=== PATIENT | female | born 1960 ===

== ENCOUNTER 2016-11-17 00:15 | Inpatient (IN) | payer MEDICARE, BC ==
[2016-11-17 00:15] VITALS: BMI 26.9
[2016-11-17] MEDS ORDERED: Sodium Chloride 0.9% 500 ML IV STA (01:02)
--- NOTE | 2016-11-17 01:05 | ED PDOC ---
Arrival/HPI - General Historian: Patient - History of Present Illness Time/Duration: < week Symptom Onset: Gradual Symptom Course: Worsening Quality: Burning Severity Level: 4 (abdominal pain) <Yina Hobbs - Last Filed: 11/17/16 05:18> <Kenney Solomon - Last Filed: 11/17/16 08:11> - General Chief Complaint: Abdominal Pain Time Seen by Provider: 11/17/16 00:36 - History of Present Illness Narrative History of Present Illness (Text): 11/17/16 01:04 56 year old female with past medical history of ESRD (MWF), HTN, GERD, chronic pancreatitis, COPD, CHF presents to [facility] complaining of nausea, vomiting and diarrhea. Patient reports that these symptoms started 2 months ago and they became worse on Monday. Since then she had more than 10 episodes of vomiting and diarrhea daily. Patient has been having NBNB vomitus and watery diarrhea. Patient also complains of having right upper quadrant abdominal pain. Patient also complains of having bilateral thigh soreness which started this morning. Her last hemodialysis was last Monday. She was not able to go Monday and Monday sessions due to her presenting symptoms. Denies headache, fever, chills, shortness of breath, coughs, chest pain, urinary symptoms. (Yina Hobbs) Past Medical History - Provider Review Nursing Documentation Reviewed: Yes - Past History Past History: Non-Contributing - Infectious Disease Hx of Infectious Diseases: None - Tetanus Immunization Tetanus Immunization: Up to Date - Cardiac Hx Pacemaker: No - Pulmonary Hx Respiratory Disorders: No Hx Asthma: No Hx Bronchitis: No Hx Chronic Obstructive Pulmonary Disease (COPD): No Hx Emphysema: No Hx Pneumonia: No Hx Respiratory Aspiration: No Hx Respiratory Tract Infection: No Hx Sleep Apnea: No Hx Tuberculosis: No - Neurological Hx Paralysis: No - HEENT Hx HEENT Disorder: Yes (torn retina left eye) Hx Blind: No Hx Cataracts: No Hx Deafness: (hard of hearing) Hx Difficulty Chewing: No Hx Epistaxis: No Hx Glaucoma: No Hx Macular Degeneration: No Other/Comment: can't see center of anything due to torn retina left eye since 1979, no sx - Renal Hx Renal Disorder: Yes Hx Dialysis: Yes Date of Last Dialysis Treatment: 08/12/16 - Endocrine/Metabolic Hx Endocrine Disorders: No Hx Adrenal Cancer: No Hx Diabetes Insipidus: No Hx Diabetes Mellitus Type 1: No Hx Diabetes Mellitus Type 2: No Hx Hyperthyroidism: No Hx Systemic Lupus Erythematosus: No - Hematological/Oncological Hx Blood Transfusions: Yes (1983) Hx Blood Transfusion Reaction: No - Integumentary Hx Dermatological Disorder: No Hx Basal Cell Carcinoma: No Hx Eczema: No Hx Melanoma: No Hx Psoriasis: No Hx Squamous Cell Carcinoma: No - Musculoskeletal/Rheumatological Hx Musculoskeletal Disorders: No - Gastrointestinal Hx Gastrointestinal Disorders: Yes (barretts esophagus) Hx Colostomy: No Hx Crohn's Disease: No Hx Diverticulitis: No Hx Gall Bladder Disease: Yes Hx Gastroesophageal Reflux: Yes Hx Gastrointestinal Ulcer: No Hx Ileostomy: No Hx Liver Failure: No Hx Pancreatitis: No HX Swallowing Problems: No - Genitourinary/Gynecological Hx Genitourinary Disorders: No Hx Hematuria: No Hx Incontinence: No Hx Prostate Problems: No Hx Sexually Transmitted Diseases: No Hx Urinary Tract Infection: No - Psychiatric Hx Emotional Abuse: No Hx Physical Abuse: No Hx Substance Use: No - Surgical History Hx Amputation: No Hx Appendectomy: No Hx Cardiac Catheterization: Yes (04/04/14) Hx Cholecystectomy: Yes (lap dyllan) Hx Coronary Stent: No Hx Gastric Bypass Surgery: No Hx Hysterectomy: No Hx Joint Replacement: No Hx Kidney Transplant: No Hx Liver Transplant: No Hx Mastectomy: No Hx Musculoskeletal Surgery: No Hx Open Heart Surgery: No Hx Orthopedic Surgery: No (hip dislocation) Hx Splenectomy: No Hx Valve Replacement: No Other/Comment: pericardial window, pericardiocenthesis 2014, c sections x2, T&A , fistulagram - Anesthesia Hx Anesthesia Reactions: No Hx Malignant Hyperthermia: No - Suicidal Assessment Feels Threatened In Home Enviroment: No <Yina Hobbs - Last Filed: 11/17/16 05:18> Family/Social History - Physician Review Nursing Documentation Reviewed: Yes Family/Social History: No Known Family HX Smoking Status: Light Smoker < 10 Cigarettes Daily Hx Alcohol Use: No Hx Substance Use: No Hx Substance Use Treatment: No <Yina Hobbs - Last Filed: 11/17/16 05:18> Allergies/Home Meds <Yina Hobbs - Last Filed: 11/17/16 05:18> <Kenney Solomon - Last Filed: 11/17/16 08:11> Allergies/Adverse Reactions: Allergies aspirin Allergy (Severe, Verified 11/17/16 00:23) ANAPHYLAXIS ciprofloxacin Allergy (Severe, Verified 11/17/16 00:23) ANAPHYLAXIS Summers And Derivatives Allergy (Severe, Verified 11/17/16 00:23) ANAPHYLAXIS enalapril Allergy (Severe, Verified 11/17/16 00:23) HIVES heparin Allergy (Severe, Verified 11/17/16 00:23) ANAPHYLAXIS latex Allergy (Severe, Verified 11/17/16 00:23) ANAPHYLAXIS Penicillins Allergy (Severe, Verified 11/17/16 00:23) ANAPHYLAXIS Sulfa (Sulfonamide Antibiotics) Allergy (Severe, Verified 11/17/16 00:23) ANAPHYLAXIS levothyroxine sodium [From Levoxyl] Allergy (Intermediate, Verified 11/17/16 00: 23) RASH acetaminophen Allergy (Mild, Verified 11/17/16 00:23) RASH codeine Allergy (Mild, Verified 11/17/16 00:23) RASH enoxaparin Allergy (Mild, Verified 11/17/16 00:23) RASH iodine Allergy (Mild, Verified 11/17/16 00:23) RASH influenza virus vaccine, specific Allergy (Verified 11/17/16 00:23) hives Home Medications: Home Meds Medication Instructions Recorded Confirmed Cinacalcet [Sensipar] 30 mg PO DAILY 02/05/14 09/27/16 Esomeprazole Magnesium [Nexium] 40 mg PO DAILY 02/05/14 09/27/16 Rosuvastatin Calcium [Crestor] 20 mg PO DAILY 02/05/14 09/27/16 Sevelamer Carbonate [Renvela] 800 mg PO WM 02/05/14 09/27/16 Metoprolol Succinate 25 mg PO QPM 05/08/14 09/27/16 Review of Systems - Physician Review All systems were reviewed & negative as marked: Yes - Review of Systems Constitutional: Fatigue. absent: Fevers Eyes: absent: Vision Changes, Photophobia ENT: Normal. absent: Rhinorrhea Respiratory: Normal. absent: SOB, Cough Cardiovascular: Normal. absent: Chest Pain, Palpitations, Syncope Gastrointestinal: Abdominal Pain, Diarrhea, Nausea, Vomiting, Appetite Changes Musculoskeletal: Other (bilateral thigh pain) Skin: Normal. absent: Rash, Pruritis, Skin Lesions Neurological: Normal. absent: Headache, Dizziness Endocrine: absent: Polyuria, Polydipsia Psychiatric: Normal. absent: Anxiety, Depression <Yina Hobbs - Last Filed: 11/17/16 05:18> Physical Exam Vital Signs Reviewed: Yes Temperature: Afebrile Blood Pressure: Hypertensive Pulse: Regular Respiratory Rate: Normal Appearance: Positive for: Non-Toxic Pain Distress: Mild Mental Status: Positive for: Alert and Oriented X 3 - Systems Exam Head: Present: Atraumatic, Normocephalic Pupils: Present: PERRL Extroacular Muscles: Present: EOMI Mouth: Present: Dry Neck: Present: Normal Range of Motion Respiratory/Chest: Present: Clear to Auscultation, Good Air Exchange. No: Respiratory Distress, Accessory Muscle Use, Wheezes Cardiovascular: Present: Regular Rate and Rhythm, Normal S1, S2. No: Murmurs Abdomen: Present: Tenderness (Right upper quadrant tenderness), Normal Bowel Sounds Back: Present: Normal Inspection Upper Extremity: Present: Normal Inspection, Neurovascularly Intact. No: Cyanosis, Edema Lower Extremity: Present: Normal Inspection, Neurovascularly Intact. No: Edema Neurological: Present: GCS=15, CN II-XII Intact, Speech Normal Skin: Present: Warm, Dry, Normal Color. No: Rashes Psychiatric: Present: Alert, Oriented x 3, Normal Insight, Normal Concentration <Yina Hobbs - Last Filed: 11/17/16 05:18> Vital Signs Temp Pulse Resp BP Pulse Ox 11/17/16 07:44 75 18 154/81 H 97 11/17/16 00:50 98.0 F 82 18 148/76 98 11/17/16 00:24 98.1 F 77 16 171/80 H 98 Medical Decision Making Re-evaluation Time: 04:11 Reassessment Condition: Improving,but remains with symptoms (Patient nausea improved, no vomiting or diarrhea.) <Yina Hobbs - Last Filed: 11/17/16 05:18> <Kenney Solomon - Last Filed: 11/17/16 08:11> ED Course and Treatment: 11/17/16 01:34 -CBC, CMP, INR -amylase, lipase, serum alcohol -EKG, Cardiac ISO -VBG Shock panel -Right femur x-ray, Duplex -Zofran, protonix -CT Abdominal -UA -Low IVF -NPO -Reassess DDx: pancreatitis, appendicitis, UTI, gastroenteritis 11/17/16 01:45 Elevated Cr 12.4 11/17/16 05:03 Patient still complaining pain and nausea. Dr. Gomez paged. 11/17/16 05:11 Case discussed with PMD Dr. Gomez whom agree with hospital admission GI Dr. Rosado, Nephro Dr. Rose consulted 11/17/16 05:12 (Yina Hobbs) Impression: In agreement with resident note, which includes further HPI details. Patient was seen and evaluated with resident, came up with plan and treatment together. Pt, whose past medical history includes ESRD (hemodialysis on Monday/Monday/ Monday) chronic pancreatitis, COPD, and CHF, presented complaining of nausea, vomiting, and diarrhea for 4 days. Plan: -- CT Abdomen and Pelvis w/o contrast -- EKG -- Labs, cardiac enzymes, amylase, lipase, alcohol level -- IV fluids -- Zofran -- Protonix -- Dilaudid -- Reassess and disposition Prior Visits: Notes and results from previous visits were reviewed. Progress Notes: 11/17/16 03:36 Reviewed sono, US Duplex Lower Extremities are negative for DVT. 11/17/16 08:10 Patient continues to have abd pain and nausea and still needs her HD - will need further observation in the hospital - will go to Dr. Gomez's service. ( Kenney Solomon) - Lab Interpretations Lab Results: 11/17/16 01:00 11/17/16 01:00 Lab Results 11/17/16 02:00: pO2 191 H, VBG pH 7.38, VBG pCO2 39.0 L, VBG HCO3 23.1, VBG Total CO2 24.3, VBG O2 Sat (Calc) 99.5 H, VBG Base Excess -1.8 L, VBG Potassium 5.4 H, Sodium 133.0, Chloride 98.0, Glucose 93, Lactate 2.0, FiO2 21.0, Venous Blood Potassium 5.4 H 11/17/16 01:00: WBC 7.1, RBC 3.69, Hgb 11.2 L, Hct 34.0 L, MCV 92.1, MCH 30.4, MCHC 32.9, RDW 16.4 H, Plt Count 132, MPV 9.7, Gran % 63.0, Lymph % (Auto) 23.1 , Aiken % (Auto) 10.5 H, Eos % (Auto) 3.0, Baso % (Auto) 0.4, Gran # 4.48, Lymph # 1.6, Aiken # 0.8 H, Eos # 0.2, Baso # 0.03, PT 14.3 H, INR 1.32 H, APTT 27.5, Sodium 135, Chloride 91 L, Potassium 5.1 H, Carbon Dioxide 25, Anion Gap 24 H, BUN 64 H, Creatinine 12.4 H*, Est GFR ( Amer) 4, Est GFR (Non-Af Amer) 3 , Random Glucose 99, Calcium 8.5, Total Bilirubin 1.6 H, AST 38, ALT 41, Alkaline Phosphatase 327 H, Lactate Dehydrogenase 484, Total Creatine Kinase 285 H, CK-MB (CK-2) 1.8, CK-MB (CK-2) % Cancelled, Troponin I 0.02 D, Total Protein 6.9, Albumin 4.0, Globulin 3.0, Albumin/Globulin Ratio 1.3, Amylase 145 H, Lipase 52, Alcohol, Quantitative < 10 - RAD Interpretation Narrative RAD Interpretations (Text): 11/17/16 02:38 Femur x-ray showed no acute fractures, read by me (Yina Hobbs) Radiology Orders: 11/17/16 01:07 Femur Right [FEMUR MIN 2 VIEWS RT] [RAD] Stat 11/17/16 01:17 ABD & PELVIS W/O PO OR IV CONT [CT] Stat DUPLEX LOWER EXTRM VEIN RIGHT [US] Stat EXAM: CT Abdomen and Pelvis Without Intravenous Contrast CLINICAL HISTORY: 56 years old, female; Pain; Abdominal pain; Generalized TECHNIQUE: Axial computed tomography images of the abdomen and pelvis without intravenous contrast. This CT exam was performed using one or more of the following dose reduction techniques: automated exposure control, adjustment of the mA and/or kV according to patient size, and/ or use of iterative reconstruction technique. Coronal and sagittal reformatted images were created and reviewed. COMPARISON: CT - PANCREATIC PROTOCOL 09/12/2016 1:43:08 PM FINDINGS: Limitations: No intravenous or enteric contrast. Lower thorax: Dilated cardiomegaly with coronary calcifications Small airway trapping and microatelectasis. Progressive. ABDOMEN: Liver: Small indeterminant enhancing hepatic lesions seen on the prior contrast study are not well seen on the noncontrast study. There is mild periportal edema which is usually related to hydration in this patient's age group , and in the ER population. Can be seen with acute hepatitis. Stable Gallbladder and bile ducts: Prior cholecystectomy without CT complications. No ductal dilation. Pancreas: Unremarkable. No ductal dilation. Spleen: Mild splenomegaly by index Adrenals: Unremarkable. No mass. Kidneys and ureters: Global renal atrophy with cystic changes of chronic renal insufficiency. Some of the cysts are hyperdense and better characterized on prior contrast CT. No obstructing stones. No hydronephrosis. Stomach and bowel: Suggestion of minimal wall thickening portions of colon right of midline which are nondistended, likely exaggerating this finding. Please correlate clinically.. No obstruction. No mucosal thickening. Appendix: Normal appendix PELVIS: Bladder: Incomplete urinary bladder distention with prominent wall. Pericystic induration. Cystitis not excluded. Correlate with urinalysis Reproductive: Unremarkable as visualized. ABDOMEN and PELVIS: Intraperitoneal space: Small amount of ascites grossly stable. No free air. Bones/joints: Dysplastic femoral heads with joint space narrowing and subchondral cysts. Spondylosis and facet arthrosis. Probable component of renal osteodystrophy No acute fracture. No dislocation. Soft tissues: Stable fatty mass in the left gluteus medius muscle.Although this is statistically a lipoma, usually followup in this age group is recommended to exclude liposarcoma. Vasculature: 16mm calcified splenic artery aneurysms. Atheromatous changes of a normal caliber aorta and branch vessels. Lymph nodes: Unremarkable. No enlarged lymph nodes. Other findings: Sequelae of old granulomatous disease without reactivation IMPRESSION: No definitive, interval or acute C.T. findings to explain the patient's presentation. Dilated cardiomegaly. There may be a component of positive fluid balance in the lungs Hepatosplenomegaly. Periportal edema. Small amount of ascites. Chronic renal medical disease. Incomplete urinary bladder distention with prominent wall. Pericystic induration. Cystitis not excluded. Correlate with urinalysis (Yina Hobbs) - Medication Orders Current Medication Orders: Sodium Chloride (Sodium Chloride 0.9%) 500 mls @ 15 mls/hr IV .Q24H STA Stop: 11/18/16 01:01 Last Admin: 11/17/16 02:12 Dose: 15 MLS/HR eMAR Start Stop Document 11/17/16 02:12 EQ (Rec: 11/17/16 02:12 EQ [id number]) Intravenous Solution Start Date 11/17/16 Start Time 02:12 Discontinued Medications Hydromorphone HCl (Dilaudid) 1 mg IVP STAT STA Stop: 11/17/16 01:18 Last Admin: 11/17/16 02:12 Dose: 1 MG IVP Administration Document 11/17/16 02:12 EQ (Rec: 11/17/16 02:12 EQ [id number]) Charges for Administration # of IVP Administrations 1 Ondansetron HCl (Zofran Inj) 4 mg IVP STAT STA Stop: 11/17/16 01:02 Last Admin: 11/17/16 02:12 Dose: 4 MG IVP Administration Document 11/17/16 02:12 EQ (Rec: 11/17/16 02:12 EQ [id number]) Charges for Administration # of IVP Administrations 1 Ondansetron HCl (Zofran Inj) Confirm Administered Dose 4 mg .ROUTE .STK-MED ONE Stop: 11/17/16 01:03 Last Admin: 11/17/16 02:12 Dose: Pantoprazole Sodium (Protonix Inj) 40 mg IVP ONCE STA Stop: 11/17/16 01:03 Last Admin: 11/17/16 02:12 Dose: 40 MG IVP Administration Document 11/17/16 02:12 EQ (Rec: 11/17/16 02:12 EQ [id number]) Charges for Administration # of IVP Administrations 1 - PA / NUCLEAR MEDICAL TECH / Resident Statement RONNELL has examined the patient and agrees with the treatment plan. <Yina Hobbs - Last Filed: 11/17/16 05:18> - PA / NUCLEAR MEDICAL TECH / Resident Statement RONNELL has reviewed & agrees with the documentation as recorded. RONNELL has examined the patient and agrees with the treatment plan. <Kenney Solomon - Last Filed: 11/17/16 08:11> Disposition/Present on Arrival - Present on Arrival Any Indicators Present on Arrival: No History of DVT/PE: No History of Uncontrolled Diabetes: No Urinary Catheter: No History of Decub. Ulcer: No History Surgical Site Infection Following: None - Disposition Have Diagnosis and Disposition been Completed?: Yes Disposition Time: 05:15 Patient Plan: Observation <Yina Hobbs - Last Filed: 11/17/16 05:18> - Present on Arrival Any Indicators Present on Arrival: No - Disposition Have Diagnosis and Disposition been Completed?: Yes Disposition Time: 05:10 Patient Plan: Observation <Kenney Solomon - Last Filed: 11/17/16 08:11> - Disposition Diagnosis: Nausea & vomiting, Abdominal pain Disposition: HOSPITALIZED Patient Problems: Current Active Problems Problem Status Diagnosed Abdominal wall hernia Acute Asthma exacerbation Acute Bronchitis Acute CHF (congestive heart failure) Acute Chest pain Acute Gastroenteritis Acute Nausea & vomiting Acute Renal failure Acute Status post cardiac catheterization Acute Condition: STABLE
[2016-11-17] MEDS ORDERED: HYDROmorphone 1 mg/ml ISec IVP STA (01:17)
[2016-11-17 01:22] LABS: ADD MANUAL DIFF? NO
[2016-11-17 01:27] LABS: BASO # 0.03 K/mm3 (0.0-2.0); BASO % 0.4 % (0.0-3.0); EOS # 0.2 (0.0-0.7); GRAN # 4.48 (1.4-6.5); LYMPH # 1.6 (1.2-3.4); LYMPH % 23.1 % (22.0-35.0); MEAN CELL VOLUME 92.1 fL (80.0-105.0); MEAN CORPUSCULAR HEMOGLOBIN 30.4 pg (25.0-35.0); MEAN CORPUSCULAR HGB CONC 32.9 g/dl (31.0-37.0); MEAN PLATELET VOLUME 9.7 fl (7.0-11.0); MONO # 0.8 (0.1-0.6); MONO % 10.5 % (1.0-6.0); PLATELET COUNT 132 10^3/uL (120.0-450.0); RED CELL DISTRIBUTION WIDTH 16.4 % (11.5-14.5); WHITE BLOOD COUNT 7.1 10^3/ul (4.5-11.0)
[2016-11-17 01:37] LABS: ALB/GLOB RATIO 1.3 (1.1-1.8); BILIRUBIN,TOTAL 1.6 mg/dL (0.2-1.3); CALCIUM 8.5 mg/dL (8.4-10.5); POTASSIUM 5.1 mmol/L (3.6-5.0); TOTAL PROTEIN 6.9 g/dL (5.8-8.3)
[2016-11-17 01:38] LABS: INR 1.32 (0.93-1.08); PARTIAL THROMBOPLASTIN TIME 27.5 Seconds (23.7-30.8)
[2016-11-17 01:48] LABS: TROPONIN I 0.02 ng/mL
[2016-11-17 02:16] LABS: VENOUS BLOOD GAS BASE EXCESS -1.8 mmol/L (0.0-2.0); VENOUS BLOOD PH 7.38 (7.32-7.43)
[2016-11-17 07:48] LABS: URINE BILIRUBIN NEGATIVE (NEGATIVE); URINE BLOOD MODERATE (NEGATIVE); URINE GLUCOSE (UA) NEGATIVE (NEGATIVE); URINE KETONE NEGATIVE (NEGATIVE); URINE LEUKOCYTE ESTERASE NEGATIVE Leu/uL (NEGATIVE); URINE PROTEIN 100 mg/dL (<30 mg/dL); URINE UROBILINOGEN 0.2 E.U./dL (<1 E.U./dL)
[2016-11-17 07:50] LABS: URINE APPEARANCE CLEAR (CLEAR); URINE COLOR YELLOW (YELLOW)
[2016-11-17 07:54] LABS: URINE BACTERIA FEW (NEG)
--- NOTE | 2016-11-17 08:39 | US ---
PROCEDURE: Right lower extremity venous US HISTORY: Leg pain and swelling. Evaluate for DVT. PHYSICIAN(S): Josh Vanegas M.D. TECHNIQUE: Duplex sonography and color-flow Doppler with graded compression were used to evaluate the deep venous system of the right lower extremity. FINDINGS: The visualized deep venous system of the right lower extremity is sonographically normal and compressible. Normal waveforms and augmentation are seen. There is no sonographic evidence for deep venous thrombosis in the visualized segments of the right lower extremity. IMPRESSION: 1. No sonographic evidence for deep venous thrombosis in the visualized segments of the right lower extremity.
--- NOTE | 2016-11-17 09:19 | CT ---
PROCEDURE: CT Abdomen and Pelvis without intravenous contrast HISTORY: abdominal pain COMPARISON: None. TECHNIQUE: Without contrast.. Contrast Dose: 0 Radiation dose: Total exam DLP = 438.21 mGy-cm. This CT exam was performed using one or more of the following dose reduction techniques: Automated exposure control, adjustment of the mA and/or kV according to patient size, and/or use of iterative reconstruction technique. FINDINGS: LOWER THORAX: Nonspecific mosaic attenuation at lung bases. Cardiomegaly. No pulmonary infiltrate/effusion. LIVER: Hepatomegaly. The liver measures approximately 22 cm craniocaudal. Mildly nodular contour suggestive of hepatic cirrhosis. Please correlate. Periportal edema. No focal hepatic mass. GALLBLADDER AND BILE DUCTS: Status post cholecystectomy. PANCREAS: Unremarkable. No gross lesion or ductal dilatation. SPLEEN: Unremarkable. ADRENALS: Nodular hypertrophy of left adrenal without discrete mass. Unremarkable right adrenal KIDNEYS AND URETERS: . Severely atrophic kidneys. Multiple left renal cysts, several of which are hyperdense. These are unchanged compared to prior CT examination. VASCULATURE: Splenic artery aneurysm, 17 mm. No evidence of abdominal aortic aneurysm. BOWEL: No evidence of mechanical bowel obstruction. No abnormal bowel loops. APPENDIX: Unremarkable. Normal appendix. PERITONEUM: Mild ascites. LYMPH NODES: Unremarkable. No enlarged lymph nodes. BLADDER: Nondistended. Questionable stranding of the perivesical fat. Please correlate clinically for evaluation of possible cystitis. REPRODUCTIVE: Postmenopausal uterus. BONES: No fracture. Degenerative disc disease L5-S1. Dysplastic femoral heads with bilateral osteoarthritis. Shallow acetabulum bilaterally. Possibly developmental. OTHER FINDINGS: None. IMPRESSION: Nonspecific mosaic attenuation at lung bases. Hepatomegaly. Possible hepatic cirrhosis. Mild ascites. Severely atrophic kidneys with several left renal cysts, some hyperdense. No change from 08/23/2016. Nonspecific periportal edema. Nondistended urinary bladder. Questionable stranding of perivesical fat. Please correlate for possible cystitis. Preliminary interpretation of this examination was reported by [facility] at 2:10 a.m. on 11/17/2016. There is concurrence of this report with the preliminary interpretation.
--- NOTE | 2016-11-17 09:31 | RAD ---
PROCEDURE: Right femur HISTORY: R thigh pain COMPARISON: Not available TECHNIQUE: AP and lateral radiographs of the right femur FINDINGS: No acute fracture. Dysplastic appearance of right femoral head with shallow acetabulum and osteoarthritis. IMPRESSION: No acute fracture. Osteoarthritis and possible dysplasia right femoral head.
--- NOTE | 2016-11-17 11:32 | CARD ---
APPROVED REPORT EKG Measurement Heart [id number] <Conclusion> Normal sinus rhythm Left axis deviation Voltage criteria for left ventricular hypertrophy ST & T wave abnormality, consider lateral ischemia Prolonged QT No change
--- NOTE | 2016-11-17 12:04 | HP ---
HISTORY OF PRESENT ILLNESS: The patient is a 56-year-old, seen and examined. She states she was ext remely weak. Last night, she was unable to stand up or walk. She has been having diarrhea since Sun day. Currently, she feels a little better, not nauseous anymore, hungry and wants to eat. PAST MEDICAL HISTORY: Significant for: 1. Hypertension. 2. End-stage renal disease, on hemodialysis. 3. Peptic ulcer disease. 4. History of left hip replacement. 5. Gastroesophageal reflux disease. ALLERGIES: THE PATIENT HAS MULTIPLE ALLERGIES INCLUDIN. ASPIRIN. 2. CIPROFLOXACIN 3. CITRUS. 4. ENALAPRIL. 5. HEPARIN. 6. LATEX. 7. PENICILLIN. 8. SULFA. 9. LEVOTHYROXINE. 10. ACETAMINOPHEN 11. CODEINE. 12. LOVENOX. 13. IODINE AND INFLUENZA VACCINE. MEDICATIONS AT HOME: She is on: 1. Renvela 800 three times a day. 2. Crestor 20 mg daily. 3. Sensipar 30 mg daily. SOCIAL HISTORY: She is and lives with her , still actively smokes a few cigarettes a day and she drinks socially. REVIEW OF SYSTEMS: Significant for generalized weakness and having some leg pain. PHYSICAL EXAMINATION: GENERAL: The patient is awake and alert, communicative. VITAL SIGNS: She is afebrile, pulse 73, respirations 18, blood pressure 157/81. LUNGS: Bilateral fair airflow, no rhonchi or crackle. HEART: S1, S2 audible. No murmur. ABDOMEN: Soft, nontender, no rebound. Slight discomfort in the right upper quadrant area, but no gu arding. EXTREMITIES: Bilateral legs, no edema. She has full range of motion. LABORATORY EXAMINATION: WBC 7.1, hemoglobin 11.2, hematocrit 34, platelet of 132. PT 14.3, INR 1.32 . Chemistry: Sodium 135, potassium 5.1, chloride 91, CO2 25, BUN 64, creatinine 12.4, blood sugar o f 99. Total bili 1.6, alk phos 327. CPK is 285, amylase is 145. Her urine shows moderate blood. A lcohol level is less than 10. She had CT scan of the abdomen and pelvis done that shows nonspecific attenuation in the lung base and she has hepatomegaly, mild ascites, atrophic kidneys and she had bi lateral leg Doppler done that shows no DVT. ASSESSMENT: 1. Probably gastroenteritis. 2. Status post cholecystectomy. 3. End-stage renal disease, on hemodialysis. 4. Hypertension. 5. Peptic ulcer disease. PLAN: We will start her on liquid diet and advance as tolerated. We will start her on Protonix and her usual medication. We will follow up this patient in a.m. If she remains stable and she is nadia ating solid food for the dinner, she might be discharged tonight. Shawn Gomez MD cc: [id number] TT: 11/17/2016 12:03:35 tn
--- NOTE | 2016-11-17 14:31 | CON ---
DATE: 11/17/2016 Seen and examined earlier today. REQUEST FOR CONSULTATION: For abdominal pain, nausea, vomiting. HISTORY OF PRESENT ILLNESS: This is a 56-year-old female with a past medical history of end-stage re nal disease on dialysis, peptic ulcer disease, GERD. Comes to the Emergency Room with complaints of feeling weak, unable to walk and complaints of nausea and episodes of diarrhea. Denies any bleeding. She complains of lower leg pains. On admission, she had a CT scan of abdomen and pelvis with no co ntrast. CT scan of abdomen report was reviewed. There was no evidence of mechanical bowel obstructi on or abnormal bowel loops. She has not had any further episodes of nausea or vomiting. She is comp laining of hunger. No fever or chills. An extremity ultrasound was also done on admission and that was negative for any DVT. This patient is familiar to our service. She had about same complaints of diarrhea previously. She underwent a colonoscopy on 09/27/2016 and was found to have a diminutive po lyp in the sigmoid colon, internal hemorrhoids and biopsies were obtained to rule out microscopic col itis. Her biopsies were negative for microscopic colitis and the sigmoid polyp was hyperplastic. e terminal ileum biopsy was also negative for dysplasia or microscopic colitis. She did have endosco py as well on 09/15/2016 and was found to have gastritis. Biopsies were also obtained and that biopsy did show some and chronic gastritis, but was negative for dysplasia and H. pylori. At the yuri e, she denies any recent antibiotic use or any contributing foods. Denies any fever or chills. PAST MEDICAL HISTORY: As above, end-stage renal disease on dialysis, GERD, hypertension, chronic manuel creatitis, chronic diarrhea, pericardial effusion, status post pericardial window, chronic anemia, hi story of colon polyps, bronchitis, brain aneurysm, hepatomegaly. PAST SURGICAL HISTORY: Cholecystectomy, x 2, cardiac catheterization, T and A, pericardial window. Last endoscopy and colonoscopy as described above was 09/2016 and she also had endoscopic ul trasound with in [place]. FAMILY HISTORY: Noncontributory at this time. SOCIAL HISTORY: Positive. The patient currently does smoke and drinks alcohol socially. Denies any substance abuse. ALLERGIES: THE PATIENT HAS MULTIPLE ALLERGIES, ENALAPRIL, HEPARIN, LATEX, ASPIRIN, CIPROFLOXACIN, CI TRUS, SULFA, PENICILLIN, LEVOTHYROXINE, LOVENOX, CODEINE, IODINE, INFLUENZA VACCINE, ACETAMINOPHEN. MEDICATIONS: Reviewed as per OCT. REVIEW OF SYSTEMS: Systems reviewed with positive findings, see HPI. VITAL SIGNS: Temperature 98, blood pressure 157/81, pulse rate is 73, respirations 18, 94% on room a ir. LABORATORIES: WBC 7.1, hemoglobin 11.2, hematocrit 34.0, platelets of 132. PT is 14.3, INR is 1.32, PTT 27.5. Sodium is 135, K is 5.1, BUN is 64, creatinine is 12.4. Her total bilirubin is 1.6, AST 38, ALT 41, alkaline phosphatase is 327. Total creatine kinase is 285. Troponin is negative. Amyla se is 145. She also had a CT scan done, abdomen and pelvis, and that reported hepatomegaly, mildly nodular conto ur suggestive of hepatic cirrhosis, periportal edema. Pancreas is unremarkable. There is nodular hy pertrophy of the left adrenal without discrete mass. Unremarkable right adrenal. Severely atrophic kidneys with multiple renal cysts on the left, unchanged compared to prior CT. Splenic artery aneury sm 17 mm, no evidence of abdominal aortic aneurysm, mild ascites and nonspecific periportal edema and nondistended urinary bladder. There is questionable stranding of perivesical fat. Please correlate for possible cystitis. PHYSICAL EXAMINATION: HEENT: Sclera is anicteric. CARDIAC: S1, S2. LUNG SOUNDS: With decreased breath sounds, but good air entry. No rales or wheeze. ABDOMEN: With bowel sounds, soft with positive tenderness to right upper quadrant. No rebound or gu arding. EXTREMITIES: Positive pulses. No edema except the left lower extremity looks slightly larger than t he right, but she had ultrasound of the lower extremities and it was negative for DVT. She did have an x-ray of the right femur and that was negative for acute fracture. ASSESSMENT: This is a 56-year-old female who came with complaints of abdominal pain, nausea, vomitin g, history of chronic diarrhea, rule out any possible gastroenteritis. She has had endoscopy and col onoscopy back in September. Biopsies were obtained from the colon to rule out microscopic colitis. T hat was negative. History of gastroesophageal reflux disease, peptic ulcer disease, end-stage renal disease on dialysis, hepatomegaly. PLAN: We will start on a clear liquid diet for breakfast. We can advance this as tolerated. Contin ue Protonix p.o. daily. She is getting Zofran p.r.n. pain. Currently, we will reevaluate and see ho w she tolerates these feedings. She has not had any recent episode of vomiting. Thank you for this consult and for allowing us to participate in your patient's care. We will make jose joseph recommendations based upon patient's clinical course. The patient was seen and case discussed with Dr. Rosado. Jennifer JAVIER cc: [id number] TT: 11/17/2016 14:30:38 Confirmation # [id number] Dictation # [id number] en
--- NOTE | 2016-11-17 16:10 | CON ---
DATE: 11/17/2016 REASON FOR CONSULTATION: Hyperkalemia, ESRD. HISTORY OF PRESENTING ILLNESS: A 56-year-old lady known to me from outpatient hemodialysis, history of hypertension, ESRD, asthma, presented to the Emergency Room early this morning with complaints of nausea, vomiting and diarrhea for 4 days, vomiting 10-15 times per day, diarrhea also for 10 times pe r day. Complaining of right-sided abdominal pain. No fever, no chills. No shortness of breath. No cough. In the Emergency Room, she is found to have a WBC count of 7, potassium of 5.1, blood pressure of 148 /76. The patient is afebrile. The patient missed her dialysis treatment on Monday and Monday. L ast treatment was Monday. PAST MEDICAL AND SURGICAL HISTORY: Hypertension, asthma, anemia, ESRD, diverticulitis, GERD, history of left hip replacement. FAMILY HISTORY: Hypertension. SOCIAL HISTORY: Smoker, occasional alcohol use. No IV drug abuse. ALLERGIES: ASPIRIN, CIPRO, ENALAPRIL, HEPARIN, LATEX, PENICILLIN, SULFA, SYNTHROID, TYLENOL, CODEINE . REVIEW OF SYSTEMS: All systems reviewed, pertinent positives as mentioned in history of presenting i llness, rest unremarkable. PHYSICAL EXAMINATION: GENERAL: Middle aged lady lying in bed, in moderate distress. VITAL SIGNS: Blood pressure 157/81, heart rate 73, respiratory rate 18, temperature 98. HEENT: Normocephalic, atraumatic, positive pallor. NECK: Supple, no JVD. LUNGS: Bilaterally equal air entry, no rales. CARDIAC: S1, S2, regular rate and rhythm, no murmur, no rub. ABDOMEN: Soft, nondistended, positive tenderness in the right side, bowel sounds present. EXTREMITIES: No lower extremity edema. LABORATORY DATA: Sodium 135, potassium 5.1, chloride 91, CO2 25, BUN 64, creatinine 12.4, glucose 99 , calcium 8.5, total bilirubin 1.6. CPK 285, albumin 4.0, amylase 145, lipase 52. WBC 7, hemoglobin 11, hematocrit 34, platelets 132, alcohol less than 10. CT scan of the abdomen and pelvis: Hepatomegaly, liver measured 22 cm, mildly nodular. CURRENT MEDICATIONS: Protonix, sevelamer, rosuvastatin, Sensipar, normal saline, Toprol-XL, Zofran. ASSESSMENT AND PLAN: 1. Abdominal pain, nausea, vomiting, diarrhea; ? etiology. 2. Hypertension. 3. End-stage renal disease. 4. Hyperlipidemia. 5. ? Cirrhosis of liver. PLAN: 1. Gastrointestinal evaluation. 2. Dialysis today. The patient has not had dialysis since last Monday. 3. Continue Crestor. 4. Continue phosphate binders. Thank you for the courtesy of this consultation. Mansi Rose MD cc: [id number] TT: 11/17/2016 16:09:25 Confirmation # [id number] Dictation # [id number] mn
[2016-11-17] MEDS: Metoprolol Succinate 25 mg XL Tab PO SCH (18:31)
[2016-11-18] MEDS: Pantoprazole 40 mg EC Tab PO SCH (05:51)
[2016-11-18] MEDS: Rosuvastatin Calcium [Crestor] 20 MG (HOME MED) PO SCH (09:32)
[2016-11-18] MEDS: HYDROmorphone 0.5 mg/0.5 ml ISec IVP PRN ×2 (11:18→20:23)
--- NOTE | 2016-11-18 12:40 | PN ---
DATE: 11/18/2016 The patient is a 56-year-old, seen and examined, still complained of intermittent abdominal pain, had 3 loose bowel movements today. The patient seems to be started having this problem since she had ch olecystectomy done. PHYSICAL EXAMINATION: GENERAL: Today, she is awake and alert, communicative. VITAL SIGNS: She is afebrile, pulse 65, respirations 20, blood pressure 158/78. LUNGS: Bilateral fair airflow, no rhonchi or crackle. HEART: S1, S2 audible. ABDOMEN: Soft, nontender, no rebound, no guarding. NEUROLOGIC: The patient is awake and alert, able to communicate. There is no new lab available today. ASSESSMENT: 1. Intermittent diarrhea. 2. Intermittent abdominal pain. 3. End-stage renal disease, on hemodialysis. 4. Status post cholecystectomy. 5. Gastritis. PLAN: We will send stool for Clostridium difficile. Start her on Dilaudid 0.5 q. 6 p.r.n. She is o n Protonix. I will speak to Dr. Rosado if she might benefit from starting her on that is Que stran. We will evaluate this patient in a.m. Shawn Gomez MD cc: [phone] TT: 11/18/2016 12:39:18 Confirmation # [id number] Dictation # [id number] en
[2016-11-18 16:05] LABS: HEMATOCRIT 33.6 % (36.0-48.0); MEAN CELL VOLUME 92.8 fL (80.0-105.0); MEAN CORPUSCULAR HEMOGLOBIN 29.6 pg (25.0-35.0); MEAN CORPUSCULAR HGB CONC 31.8 g/dl (31.0-37.0); MEAN PLATELET VOLUME 9.5 fl (7.0-11.0); RED CELL DISTRIBUTION WIDTH 16.6 % (11.5-14.5); WHITE BLOOD COUNT 5.4 10^3/ul (4.5-11.0)
[2016-11-18 16:14] LABS: ALB/GLOB RATIO 1.3 (1.1-1.8); BILIRUBIN,TOTAL 1.2 mg/dL (0.2-1.3); CALCIUM 8.3 mg/dL (8.4-10.5); PHOSPHOROUS 5.7 mg/dL (2.5-4.5); POTASSIUM 4.6 mmol/L (3.6-5.0); TOTAL PROTEIN 6.3 g/dL (5.8-8.3)
--- NOTE | 2016-11-18 18:58 | CP.PCM.PN ---
Subjective - Date & Time of Evaluation Date of Evaluation: 11/18/16 Time of Evaluation: 11:00 - Subjective Subjective: Seen and examined at the bedside earlier today. Still has nausea but able to tolerated some liquids. No recent vomiting. Had BM semi-loose. No bleeding. No SOB or chest pain. Objective - Vital Signs/Intake and Output Vital Signs (last 24 hours): Temp Pulse Resp BP Pulse Ox 98 F 65 20 152/78 H 97 11/18/16 08:00 11/18/16 08:00 11/18/16 08:00 11/18/16 08:00 11/18/16 08:00 - Medications Medications: Current Medications Cinacalcet (Sensipar) 30 mg PO DIN [facility] Last Admin: 11/17/16 18:31 Dose: 30 mg Dicyclomine HCl (Bentyl) 10 mg PO Q6 PRN PRN Reason: Pain, moderate (4-7) Last Admin: 11/18/16 14:56 Dose: 10 mg Hydromorphone HCl (Dilaudid) 0.5 mg IVP Q6H PRN PRN Reason: Pain, moderate (4-7) Last Admin: 11/18/16 11:18 Dose: 0.5 mg Metoprolol Succinate (Toprol Xl) 25 mg PO QPM [facility] Last Admin: 11/17/16 18:31 Dose: 25 mg Rosuvastatin Calcium [Crestor] 20 Mg ( Home Med) 20 mg PO DAILY [facility] Last Admin: 11/18/16 09:32 Dose: Not Given Ondansetron HCl (Zofran Inj) 4 mg IVP Q6H PRN PRN Reason: Nausea/Vomiting Last Admin: 11/18/16 11:14 Dose: 4 mg Pantoprazole Sodium (Protonix Ec Tab) 40 mg PO 0630 [facility] Last Admin: 11/18/16 05:51 Dose: 40 mg Sevelamer HCl (Renagel) 800 mg PO WM [facility] Last Admin: 11/18/16 12:22 Dose: 800 mg - Labs Labs: PT 14.3 Seconds (9.9-11.8) H 11/17/16 01:00 INR 1.32 (0.93-1.08) H 11/17/16 01:00 APTT 27.5 Seconds (23.7-30.8) 04/13/17 01:00 - Constitutional Appears: No Acute Distress - Eye Exam Eye Exam: Normal appearance. absent: Scleral icterus - ENT Exam ENT Exam: Mucous Membranes Moist - Neck Exam Neck Exam: Normal Inspection - Respiratory Exam Respiratory Exam: Clear to Ausculation Bilateral, NORMAL BREATHING PATTERN. absent: Rales, Wheezes - Cardiovascular Exam Cardiovascular Exam: +S1, +S2 - GI/Abdominal Exam GI & Abdominal Exam: Soft, Tenderness (epigastric), Normal Bowel Sounds. absent : Guarding, Rebound - Extremities Exam Extremities Exam: absent: Calf Tenderness, Pedal Edema - Neurological Exam Neurological Exam: Alert, Awake, Oriented x3 Assessment and Plan - Assessment and Plan (Free Text) Assessment: ASSESSMENT: Abdominal Pain, mainly epigastric N/V/D maybe gastroenteritis Chronic Diarrhea ESRD on dialysis GERD H/O cholecystectomy H/O PUD Hepatomegaly PLAN: Continue diet as tolerated continue PPI, on Protonix Zofran prn nausea start Questran 4 gm daily The patient was seen and case discussed with Dr. Rosado.
[2016-11-18] MEDS: Metoprolol Succinate 25 mg XL Tab PO SCH (19:08)
[2016-11-18] MEDS ORDERED: Cholestyramine 4 gm/Pkt UD PO ONE (20:00)
[2016-11-19] MEDS: HYDROmorphone 0.5 mg/0.5 ml ISec IVP PRN ×3 (03:20→17:21)
[2016-11-19] MEDS: Rosuvastatin Calcium [Crestor] 20 MG (HOME MED) PO SCH (09:57)
[2016-11-19] MEDS ORDERED: Cholestyramine 4 gm/Pkt UD PO SCH (10:00)
--- NOTE | 2016-11-19 12:25 | PN ---
DATE: 11/18/2016 SUBJECTIVE: The patient is seen lying in bed. She is awake. She is alert. She is complaining of p ain in her abdomen. She continues to have diarrhea. She continues to have nausea. PHYSICAL EXAMINATION: GENERAL: Middle-aged lady lying in bed. VITAL SIGNS: Blood pressure 152/78, heart rate 65, respiratory rate 20, temperature 98. HEENT: Normocephalic, atraumatic. NECK: Supple, no JVD. LUNGS: Bilateral equal air entry. ABDOMEN: Soft, nondistended. Bowel sounds present. Positive tenderness on the right side. EXTREMITIES: No lower extremity edema. LABORATORY DATA: WBC 5.4, hemoglobin 10.7, hematocrit 34, platelets 130. Sodium 135, potassium 4.6, chloride 94, CO2 28, BUN 30, creatinine 8.5, glucose 119, calcium 8.3, phosphorus 5.7. CURRENT MEDICATIONS: Bentyl, Dilaudid, Protonix, Questran, Renagel, rosuvastatin, Sensipar, Toprol-X L, Zofran. ASSESSMENT: 1. Recurrent persistent abdominal pain, nausea, vomiting, diarrhea. 2. Hypertension. 3. End-stage renal disease. 4. Gastroesophageal reflux disease. PLAN: 1. Discussed with GI. 2. Dialysis today. 3. Continue pain medication. 4. Continue phosphate binders. Mansi Rose MD cc: [phone] TT: 11/19/2016 12:25:01 Confirmation # [id number] Dictation # [id number] tn
--- NOTE | 2016-11-19 13:48 | PN ---
DATE: 11/19/2016 SUBJECTIVE: This patient was seen and evaluated earlier. The patient did have Questran 4 grams yest erday, has improved. Symptoms of diarrhea has improved. The patient still complains of some discomf ort in the right upper quadrant area. PHYSICAL EXAMINATION: VITAL SIGNS: Temperature is 97.2, pulse 72, blood pressure 137/76. HEENT: Atraumatic, anicteric. NECK: Supple. HEART: S1, S2 heard. LUNGS: Bilateral air entry present. ABDOMEN: Soft. There is mild tenderness to deep palpation in the right upper quadrant area. No mas s. No rebound or guarding. EXTREMITIES: No edema. No cyanosis. No clubbing. NEUROLOGIC: Alert, oriented. LABORATORY DATA: Reviewed. Hemoglobin 10.7, hematocrit 33.6, WBC 5.4, platelets 130. BUN 30, creat inine 8.5. No labs today. Yesterday's labs showed alkaline phosphatase elevated 279. IMPRESSION: This 56-year-old patient with end-stage renal disease on hemodialysis, chronic right-german ed abdominal discomfort upper quadrant and epigastrium had multiple workups done including esophagoga stroduodenoscopy workup done in the past, etiology unclear. One of the other differential diagnosis to be considered is hepatic congestion. The patient did have severe tricuspid regurgitation. The pa tient also has redundant colon and this partly could be contributing to some discomfort in the right upper quadrant area. The patient did have a cholecystectomy in the past. PLAN: The reasonable thing is to consider cardiac reevaluation. Continue the Questran. We will con tinue to closely follow up her care and suggest further management based on the clinical course. The plan is to continue with a soft, pureed type of diet. Then continue the Questran for the time being and cardiac evaluation. We will consider sending her for another opinion if the symptoms are persis tent and also in view of this nondiagnostic type of workup for ____ abdominal pain. Jesus Manuel Rosado MD cc: [phone] TT: 11/19/2016 13:47:15 Confirmation # [id number] Dictation # [id number] milton
[2016-11-19] MEDS: Metoprolol Succinate 25 mg XL Tab PO SCH (17:21)
--- NOTE | 2016-11-19 18:34 | PN ---
DATE: 11/19/2016 The patient is 56 years old, seen and examined. She states her stools are a little better, relativel y formed but she still has right upper quadrant pain. No nausea and did tolerate food. PHYSICAL EXAMINATION: VITAL SIGNS: She is afebrile, pulse 72, respirations 19, blood pressure 137/76. LUNGS: Bilateral fair airflow, no rhonchi or crackle. HEART: S1, S2 audible. ABDOMEN: Soft. Right upper quadrant palpable discomfort. NEUROLOGIC: The patient is awake and alert, able to communicate. EXTREMITIES: No leg edema. LABORATORY: WBC is 5.4, hemoglobin 10.7, hematocrit 33.6, platelet of 130. Chemistry: Sodium 135, potassium 4.6, chloride 94, CO2 of 28, BUN 30, creatinine 8.5, blood sugar is 119, calcium 8.3. Eve line phosphatase is 279. Her stool for C. diff is found to be positive. ASSESSMENT: 1. Clostridium difficile colitis. 2. Right upper quadrant pain, could be probably secondary to severe tricuspid regurgitation since th e patient has dilated cardiomyopathy with ejection fraction of 30%. It could be hepatic congestion g iven her right upper quadrant pain. 3. End-stage renal disease, on hemodialysis. 4. Hyperlipidemia. PLAN: I will start the patient on IV Flagyl and p.o. vancomycin and monitor her response. I will ge t cardiology evaluation to reduce her hepatic congestion because of severe tricuspid regurg. Discuss ed with Dr. Rosado. Will follow up the patient in the a.m. Shawn Gomez MD cc: [phone] TT: 11/19/2016 18:33:06 Confirmation # [id number] Dictation # [id number] juan
--- NOTE | 2016-11-19 19:19 | CON ---
DATE: 11/19/2016 REASON FOR CONSULTATION: Abnormal EKG. HISTORY OF PRESENT ILLNESS: The patient is a 56-year-old female who has a history of end-st age renal disease on hemodialysis for the past 7 years. The patient stated that she had focal sclero tic glomerulonephritis. The patient is unaware of any prior cardiac history other than a history of pericardial window for pericardial effusion. The patient presented because of nausea, vomiting and d iarrhea. The patient has missed the last 2 dialysis prior to her presentation to the Emergency Room because of her abdominal illness. She denies any hematemesis or melena. She denies retrosternal melba st pain. SOCIAL HISTORY: Nonsmoker, nondrinker. MEDICATIONS: Bentyl 10 mg p.o. q.6 hours, Dilaudid 0.5 mg intravenously q.6 hours, Protonix 40 mg p. o. once a day, Questran 4 mg once a day, Renagel 800 mg with meals, Sensipar 30 mg with dinner, Topro l-XL 25 mg once a day. PAST MEDICAL HISTORY: 1. History of cholecystectomy. 2. Gastroesophageal reflux. 3 Hypertension. 4. Focal sclerotic glomerulonephritis. PHYSICAL EXAMINATION: GENERAL: The patient is a middle-aged female who does not appear to be in acute distress. VITAL SIGNS: Blood pressure 137/76, heart rate 72, temperature 97.2, respiration 19. HEENT: Pale conjunctivae. CHEST: Bibasilar rhonchi. HEART: S1, S2 regular. ABDOMEN: Soft. EXTREMITIES: No pedal edema. LABORATORY DATA: Hemoglobin and hematocrit 10.7 and 33.6, white count and platelet count are within normal limits. SMA-7: Sodium 135, potassium 4.6, chloride 94, CO2 of 28, glucose 119, BUN 30, creat inine 8.5. Alkaline phosphatase is elevated at 279. Amylase is elevated at 145. Lipase is within n ormal limits. INR is 1.3, PTT 27.5. EKG revealed sinus rhythm at a rate of 57, lateral ischemic Q-w ave changes; however repolarization changes cannot be completely excluded. Venous Doppler of lower e xtremities: No evidence of DVT in the visualized segment of the right lower extremity. Abdomen and pelvis CT scan revealed nonspecific mosaic attenuation in the left lung. Hepatomegaly, possible hepa tic cirrhosis. Mild ascites. Severely atrophic kidneys. No change compared to study in 08/23 of s year. Femur x-ray: No acute fracture, osteoarthritis, possible dysplasia of the right femoral hea d. A recent echocardiogram study in September of this year, revealed 4-chamber dilatation with ejecti on fraction in the range of 30% to 35%, moderate mitral insufficiency, severe tricuspid insufficiency , right ventricular systolic pressure is estimated at 64 mmHg, no pericardial effusion. ASSESSMENT: 1. Dilated cardiomyopathy. 2. End-stage renal disease on hemodialysis. 3. Hypertension. 4. Gastroenteritis. 5. Ischemic lateral EKG changes. 6. End-stage renal disease on hemodialysis. RECOMMENDATIONS: I did review a Lexiscan that was performed in 10/2013, which was positive for abnorm al myocardial perfusion study with fixed anteroseptal defect suggestive of myocardial injury/infarct with mild LV dysfunction with anteroseptal hypokinesis. Continue current Toprol-XL at 25 mg once a d ay, start Cozaar at 12.5 mg orally daily. Consider aspirin therapy if the patient is cleared from th e gastrointestinal point of view. Further discussion with the case will be conducted with Dr. Jamel fay his return on Monday. Franco Oliva MD cc: [id number] TT: 11/19/2016 19:18:49 Confirmation # [id number] Dictation # [id number] juan
[2016-11-19] MEDS ORDERED: Cholestyramine 4 gm/Pkt UD PO ONE (20:00)
[2016-11-19] MEDS: metroNIDAZOLE IV 250mg/50 ml 50 ML IV SCH (21:17)
[2016-11-19] MEDS: Vancomycin 500 mg (Oral/Rectal USE) PO SCH (21:17)
[2016-11-20] MEDS: metroNIDAZOLE IV 250mg/50 ml 50 ML IV SCH ×3 (05:34→21:37)
[2016-11-20] MEDS: Pantoprazole 40 mg EC Tab PO SCH (06:11)
[2016-11-20] MEDS: Rosuvastatin Calcium [Crestor] 20 MG (HOME MED) PO SCH (09:42)
[2016-11-20] MEDS: Vancomycin 500 mg (Oral/Rectal USE) PO SCH ×4 (10:02→21:38)
--- NOTE | 2016-11-20 11:29 | PN ---
DATE: 11/20/2016 The patient is a 56-year-old, seen and examined. She states her diarrhea is better. She still has r ight upper quadrant discomfort. PHYSICAL EXAMINATION: VITAL SIGNS: She is afebrile, pulse 72, respirations 19, blood pressure 137/76. LUNGS: Bilateral fair airflow, no rhonchi or crackle. HEART: S1, S2 audible. No murmur. ABDOMEN: Soft, slight right upper quadrant discomfort. NEUROLOGIC: She is awake and alert, communicative, ambulatory. EXTREMITIES: Bilateral legs, no edema. LABORATORY EXAMINATION: Her stool for C. diff is positive. ASSESSMENT: 1. Clostridium difficile colitis. 2. Right upper quadrant pain, probably secondary to hepatic congestion. 3. End-stage renal disease, on hemodialysis. 4. Cardiomyopathy. PLAN: We will continue patient on p.o. vancomycin and IV Flagyl for now. I will discuss with As if about if some intervention has to be done since she has severe tricuspid regurgitation. That migh t be causing her hepatic congestion, giving her abdominal pain and will evaluate patient in a.m. and can make a disposition plan. Shawn Gomez MD cc: [phone] TT: 11/20/2016 11:28:27 Confirmation # [id number] Dictation # [id number] en
--- NOTE | 2016-11-20 13:47 | PN ---
DATE: 11/19/2016 SUBJECTIVE: The patient is seen lying in bed. She is complaining of abdominal pain. Decreased diar vincent today, but more nausea. Vomiting x 1. No fever, no chills. PHYSICAL EXAMINATION: GENERAL: A middle-aged lady, lying in bed, in moderate distress. VITAL SIGNS: Blood pressure 137/76, heart rate 72, respiratory rate 18, temperature 97.2. HEENT: Normocephalic, atraumatic. NECK: Supple, no JVD. LUNGS: Bilateral equal air entry, no rales. CARDIAC: S1, S2, regular rate and rhythm, no murmur, no rub. ABDOMEN: Soft, nondistended, positive tenderness on the right side, bowel sounds present. EXTREMITIES: No lower extremity edema. LABORATORY DATA: No new labs except that patient is now found to be Clostridium difficile antigen po sitive. CURRENT MEDICATIONS: Bentyl, Cozaar, Dilaudid, Flagyl, Protonix, sevelamer, rosuvastatin, Sensipar, Toprol-XL, p.o. vancomycin, Zofran. ASSESSMENT: 1. Right-sided abdominal pain, nausea, vomiting, diarrhea. 2. Hypertension. 3. End-stage renal disease. 4. Hypophosphatemia. 5. Anemia of chronic disease. 6. Clostridium difficile colitis? PLAN: 1. Agree with p.o. vancomycin. 2. Continue current antihypertensives. 3. Continue phosphate binders. 4. Next dialysis on Monday. Mansi Rose MD cc: [phone] TT: 11/20/2016 13:46:28 Confirmation # [id number] Dictation # [id number] en
--- NOTE | 2016-11-20 15:43 | PN ---
DATE: 11/20/2016 The patient denies any abdominal pain, nausea or vomiting, and no chest pain, no shortness of breath. PHYSICAL EXAMINATION: VITAL SIGNS: Blood pressure 137/76, heart rate 72, temperature 97.2, respirations 19. HEENT: Pale conjunctivae. CHEST: Clear. HEART: S1, S2 regular. EXTREMITIES: No edema. ASSESSMENT: 1. Dilated cardiomyopathy. 2. End-stage renal disease, on hemodialysis. 3. Gastroenteritis. 4. Clostridium difficile colitis according to the primary physician. RECOMMENDATIONS: Continue current Cozaar at 12.5 mg daily, IV Flagyl and oral vancomycin. Continue Crestor at 20 mg once a day, Toprol-XL at 25 mg daily. The case will be discussed with Dr. Jamel haines. Franco Oliva MD cc: [id number] TT: 11/20/2016 15:43:23 Confirmation # [id number] Dictation # [id number] en
[2016-11-20] MEDS: Metoprolol Succinate 25 mg XL Tab PO SCH (17:29)
[2016-11-21] MEDS: Pantoprazole 40 mg EC Tab PO SCH (05:50)
[2016-11-21] MEDS: metroNIDAZOLE IV 250mg/50 ml 50 ML IV SCH (05:50)
[2016-11-21 06:11] VITALS: RESP 17
[2016-11-21 06:54] LABS: ADD MANUAL DIFF? NO
[2016-11-21 07:07] LABS: BASO # 0.03 K/mm3 (0.0-2.0); BASO % 0.6 % (0.0-3.0); EOS # 0.2 (0.0-0.7); EOS % 4.5 % (1.5-5.0); GRAN # 3.17 (1.4-6.5); GRAN % 61.4 % (50.0-68.0); HEMATOCRIT 34.8 % (36.0-48.0); LYMPH # 1.3 (1.2-3.4); LYMPH % 24.8 % (22.0-35.0); MEAN CELL VOLUME 90.6 fL (80.0-105.0); MEAN CORPUSCULAR HEMOGLOBIN 29.2 pg (25.0-35.0); MEAN CORPUSCULAR HGB CONC 32.2 g/dl (31.0-37.0); MONO # 0.5 (0.1-0.6); MONO % 8.7 % (1.0-6.0); PLATELET COUNT 138 10^3/uL (120.0-450.0); RED CELL DISTRIBUTION WIDTH 15.9 % (11.5-14.5); WHITE BLOOD COUNT 5.2 10^3/ul (4.5-11.0)
[2016-11-21 07:18] LABS: ALB/GLOB RATIO 1.3 (1.1-1.8); BILIRUBIN,TOTAL 1.3 mg/dL (0.2-1.3); CALCIUM 8.1 mg/dL (8.4-10.5); PHOSPHOROUS 6.3 mg/dL (2.5-4.5); TOTAL PROTEIN 6.2 g/dL (5.8-8.3)
[2016-11-21 07:35] LABS: MAGNESIUM 2.2 mg/dL (1.7-2.2)
[2016-11-21 08:31] VITALS: TEMP 97.9; O2SAT 96
[2016-11-21] MEDS: Rosuvastatin Calcium [Crestor] 20 MG (HOME MED) PO SCH (10:06)
[2016-11-21] MEDS: Vancomycin 500 mg (Oral/Rectal USE) PO SCH (10:09)
[2016-11-21 10:12] VITALS: BP 154/67; PULSE 73
--- NOTE | 2016-11-21 11:45 | PN ---
DATE: 11/21/2016 SUBJECTIVE: The patient is seen lying in bed. She is awake. She is alert. She is comfortable. Sh e reports feeling much better. Diarrhea is improved. Right-sided pain is improved. PHYSICAL EXAMINATION: GENERAL: A middle-aged lady lying in bed. VITAL SIGNS: Blood pressure 154/67, heart rate 73, respiratory rate 17, temperature 97.9. HEENT: Normocephalic, atraumatic. NECK: Supple. No JVD. LUNGS: Bilateral equal air entry, no rales. CARDIAC: S1, S2, regular rate and rhythm. No murmur, no rub. ABDOMEN: Soft, nondistended. Bowel sounds present. No tenderness in the right lower quadrant. LABORATORY DATA: WBC 5, hemoglobin 11.2, hematocrit 35, platelets 138. Sodium 134, potassium 5.0, c hloride 98, CO2 of 23, BUN 32, creatinine 9.1, glucose 94, calcium 8.1, phosphorus 6.3. AST 25, ALT 36, albumin 3.5. CURRENT MEDICATIONS: Include vancomycin p.o. ____ q.i.d. ASSESSMENT AND PLAN: 1. Right-sided abdominal pain. 2. Diarrhea, Clostridium difficile antigen positive. 3. Hypertension. 4. End-stage renal disease. 5. Dilated cardiomyopathy with decreased ejection fraction, moderate mitral regurgitation , severe t ricuspid regurgitation. PLAN: 1. Continue p.o. vancomycin. 2. Stable dialysis today. 3. Increase ultrafiltration on dialysis? 4. Discharge planning. Mansi Rose MD cc: [phone] TT: 11/21/2016 11:44:59 Confirmation # [id number] Dictation # [id number] [place]
--- NOTE | 2016-11-21 13:49 | PN ---
DATE: 11/21/2016 The patient is in room 370, bed 2. REASON FOR CONSULTATION AND FOLLOWUP: Abnormal EKG. HISTORY OF PRESENT ILLNESS: The patient is a 56-year-old female, history of end-stage renal failure on dialysis since the last 7 years. She has a history of focal sclerotic glomerulonephritis. The pa charunt admitted with nausea, vomiting and diarrhea. Denies chest pain or palpitation. The patient kohler s history of pericardial window for pericardial effusion. The patient had cardiac catheterization 04/2014, showed nonobstructive coronary artery disease. The patient had KADY 02/25/2016, which showed ejection fraction 50%, moderate MR. RVSP 61 mmHg. The patient had another echo in 09/2016, which roxie wed LV ejection fraction 30%-35%, moderate mitral regurgitation, severe tricuspid regurgitation, RV s ystolic pressure around 64 mmHg, no pericardial effusion. The patient had dialysis today and she fee ls much better. Her diarrhea, vomiting, nausea also subsided. The patient lying flat in bed without any cardiac symptoms. PHYSICAL EXAMINATION: VITAL SIGNS: Blood pressure 130/60, respirations 17, pulse 70, temperature 97.9. HEAD: Normocephalic. EYES: Pupils normal. Conjunctivae slightly pale. NECK: JVP low. Carotid equal. THORAX: AP diameter normal. LUNGS: Clear. CARDIOVASCULAR: S1, S2. ABDOMEN: Soft, no tenderness, no organomegaly. Bowel sounds normal. EXTREMITIES: No clubbing, no cyanosis. LABORATORIES: WBC 5.2, hemoglobin 11.2, hematocrit 34.8, platelets 138. Sodium 134, potassium 5.0, BUN 32, creatinine 9.1, calcium 8.1, phosphorus 6.3, magnesium 2.2, total bilirubin 1.3, AST 25, ALT 36. Total protein, albumin normal. Magnesium level is 2.2. DIAGNOSES: Cardiomyopathy with recent echo ejection fraction 30%-35%, end-stage renal failure on mireille lysis, hypertension, gastroenteritis. EKG, prolonged QT, some ST-T changes. PLAN: Clinically, patient's cardiac status is stable now. We will continue present therapy and we w ill follow closely with you. Po Bradford MD cc: [phone] TT: 11/21/2016 13:48:33 Confirmation # [id number] Dictation # [id number] en
--- NOTE | 2016-11-21 17:40 | DS ---
HISTORY OF PRESENT ILLNESS: The patient is a 56-year-old, seen and examined, lying in bed, seems to b e comfortable. Feels a lot better. Diarrhea is gone. Actually, she did not have bowel movement sinc e yesterday. PHYSICAL EXAMINATION: GENERAL: She is awake and alert, communicative. VITAL SIGNS: She is afebrile, pulse 70, respirations 17, blood pressure 154/67. LUNGS: Bilateral fair airflow, no rhonchi or crackle. HEART: S1, S2 audible. ABDOMEN: Soft, nontender, no rebound, no guarding. NEUROLOGIC: She is awake and alert, communicative, ambulatory. EXTREMITIES: Bilateral legs with no edema. LABORATORY EXAMINATION: WBC is 5.2, hemoglobin 11.2, hematocrit 34.8, platelet of 138. Chemistry: Sodium 134, potassium 4.0, chloride 98, CO2 23, BUN 32, creatinine 9.1, blood sugar of 94. ASSESSMENT: 1. Clostridium difficile colitis, seems to be improving. 2. Right upper quadrant pain secondary to hepatic congestion since patient has severe tricuspid regu rgitation. 3. End-stage renal disease, on hemodialysis. 4. Chronic anemia. 5. History of brain aneurysm that is under care in [place]. PLAN: The patient is being discharged home on p.o. vancomycin 250 four times a day for a total of 10 days and she was discussed with Dr. Rose. Will need to watch her for TR and will reevaluate the branden rebolledo in office as a followup. Shawn Gomez MD cc: [phone] TT: 11/21/2016 17:39:39 ln
== END 2016-11-21 12:35 | disposition home or self-care (01) | DRG 371 ==
LOC: ED 00:15 → ERH 05:08 → 3RSO 07:57 → OBSVTOIN 11-18 14:46
PROVIDERS: ADMIT Internal Medicine; ATTEND Internal Medicine
DX: A04.7 Enterocolitis due to Clostridium difficile (principal); N18.6 End stage renal disease; I13.2 Hypertensive heart and chronic kidney disease with heart failure and with stage 5 chronic kidney disease, or end stage renal disease; N17.9 Acute kidney failure, unspecified; I67.1 Cerebral aneurysm, nonruptured; I42.0 Dilated cardiomyopathy; K76.1 Chronic passive congestion of liver; K86.1 Other chronic pancreatitis; J45.901 Unspecified asthma with (acute) exacerbation; N39.0 Urinary tract infection, site not specified; Q43.8 Other specified congenital malformations of intestine; K27.9 Peptic ulcer, site unspecified, unspecified as acute or chronic, without hemorrhage or perforation; K74.60 Unspecified cirrhosis of liver; E83.39 Other disorders of phosphorus metabolism; I08.1 Rheumatic disorders of both mitral and tricuspid valves; E87.5 Hyperkalemia; D63.1 Anemia in chronic kidney disease; I25.10 Atherosclerotic heart disease of native coronary artery without angina pectoris; I50.9 Heart failure, unspecified; J44.9 Chronic obstructive pulmonary disease, unspecified; Z99.2 Dependence on renal dialysis; Z96.642 Presence of left artificial hip joint; Z90.49 Acquired absence of other specified parts of digestive tract; Z87.11 Personal history of peptic ulcer disease; Z86.010 Personal history of colon polyps; E78.5 Hyperlipidemia, unspecified; F17.200 Nicotine dependence, unspecified, uncomplicated; H91.90 Unspecified hearing loss, unspecified ear; K21.9 Gastro-esophageal reflux disease without esophagitis; K22.70 Barrett's esophagus without dysplasia; K29.50 Unspecified chronic gastritis without bleeding; K43.9 Ventral hernia without obstruction or gangrene; K64.8 Other hemorrhoids; N05.9 Unspecified nephritic syndrome with unspecified morphologic changes; N32.89 Other specified disorders of bladder; Z79.899 Other long term (current) drug therapy; Z82.49 Family history of ischemic heart disease and other diseases of the circulatory system; R10.11 Right upper quadrant pain

== ENCOUNTER 2016-12-05 01:04 | Observation (INO) | payer MEDICARE, BC ==
--- NOTE | 2016-12-05 01:22 | ED PDOC ---
Arrival/HPI - General Chief Complaint: Shortness Of Breath Time Seen by Provider: 12/05/16 01:12 Historian: Patient - History of Present Illness Narrative History of Present Illness (Text): 12/05/16 01:21 Jacqui Kraus is a 56 year old female, whose past medical history includes ESRD on hemodialysis, hypertension, COPD, chronic anemia, chronic pancreatitis, and small brain aneurysm, who presents to the emergency department complaining of worsening shortness of breath with associated chest tightness for the past few hours. Patient states she has a dialysis appointment in the morning. Patient denies any fever, chills, chest pain, abdominal pain, nausea, vomiting, diarrhea , urinary symptoms, back pain, neck pain, headache, dizziness, or any other complaints. Time/Duration: 4-6 hours Symptom Onset: Gradual Symptom Course: Unchanged Quality: Tightness Activities at Onset: Rest, Light Context: Home Past Medical History - Provider Review Nursing Documentation Reviewed: Yes - Past History Past History: Non-Contributing - Infectious Disease Hx of Infectious Diseases: None - Tetanus Immunization Tetanus Immunization: Up to Date - Reproductive Menopause: Yes - Cardiac Hx Pacemaker: No - Pulmonary Hx Respiratory Disorders: No Hx Asthma: No Hx Bronchitis: No Hx Chronic Obstructive Pulmonary Disease (COPD): No Hx Emphysema: No Hx Pneumonia: No Hx Respiratory Aspiration: No Hx Respiratory Tract Infection: No Hx Sleep Apnea: No Hx Tuberculosis: No - Neurological Hx Neurological Disorder: No - HEENT Hx HEENT Disorder: Yes (torn retina left eye) Hx Blind: No Hx Cataracts: No Hx Deafness: (hard of hearing) Hx Difficulty Chewing: No Hx Epistaxis: No Hx Glaucoma: No Hx Macular Degeneration: No Other/Comment: can't see center of anything due to torn retina left eye since 1979, no sx - Renal Hx Renal Disorder: Yes Hx Dialysis: Yes - Endocrine/Metabolic Hx Endocrine Disorders: No Hx Adrenal Cancer: No Hx Diabetes Insipidus: No Hx Diabetes Mellitus Type 1: No Hx Diabetes Mellitus Type 2: No Hx Hyperthyroidism: No Hx Systemic Lupus Erythematosus: No - Hematological/Oncological Hx Blood Disorders: Yes Hx AIDS: No Hx Anemia: Yes (blood transfusion 1983) Hx Cancer: No Hx Chemotherapy: No Hx Cirrhosis: No Hx Hepatitis A: No Hx Hepatitis B: No Hx Hepatitis C: No Hx Metastasis: No Hx Shingles: No Hx Unexplained Bleeding: No - Integumentary Hx Dermatological Disorder: No Hx Basal Cell Carcinoma: No Hx Eczema: No Hx Melanoma: No Hx Psoriasis: No Hx Squamous Cell Carcinoma: No - Musculoskeletal/Rheumatological Hx Musculoskeletal Disorders: No Hx Falls: No - Gastrointestinal Hx Gastrointestinal Disorders: Yes (barretts esophagus) Hx Colostomy: No Hx Crohn's Disease: No Hx Diverticulitis: No Hx Gall Bladder Disease: Yes Hx Gastroesophageal Reflux: Yes Hx Gastrointestinal Ulcer: No Hx Ileostomy: No Hx Liver Failure: No Hx Pancreatitis: No HX Swallowing Problems: No Other/Comment: abdominal pain - Genitourinary/Gynecological Hx Genitourinary Disorders: No Hx Hematuria: No Hx Incontinence: No Hx Prostate Problems: No Hx Sexually Transmitted Diseases: No Hx Urinary Tract Infection: No - Psychiatric Hx Emotional Abuse: No Hx Physical Abuse: No Hx Substance Use: No - Surgical History Hx Amputation: No Hx Appendectomy: No Hx Cardiac Catheterization: Yes (04/04/14) Hx Cholecystectomy: Yes (lap dyllan) Hx Coronary Stent: No Hx Gastric Bypass Surgery: No Hx Hysterectomy: No Hx Joint Replacement: No Hx Kidney Transplant: No Hx Liver Transplant: No Hx Mastectomy: No Hx Musculoskeletal Surgery: No Hx Open Heart Surgery: No Hx Orthopedic Surgery: No (hip dislocation) Hx Splenectomy: No Hx Valve Replacement: No Other/Comment: pericardial window, pericardiocenthesis 2014, c sections x2, T&A , fistulagram - Anesthesia Hx Anesthesia Reactions: No Hx Malignant Hyperthermia: No - Suicidal Assessment Feels Threatened In Home Enviroment: No Family/Social History - Physician Review Nursing Documentation Reviewed: Yes Family/Social History: No Known Family HX Smoking Status: Heavy Smoker > 10 Cigarettes Daily Hx Alcohol Use: Yes Frequency of alcohol use: Socially Hx Substance Use: No Hx Substance Use Treatment: No Allergies/Home Meds Allergies/Adverse Reactions: Allergies aspirin Allergy (Severe, Verified 12/05/16 01:11) ANAPHYLAXIS ciprofloxacin Allergy (Severe, Verified 12/05/16 01:11) ANAPHYLAXIS Talihina And Derivatives Allergy (Severe, Verified 12/05/16 01:11) ANAPHYLAXIS enalapril Allergy (Severe, Verified 12/05/16 01:11) HIVES heparin Allergy (Severe, Verified 12/05/16 01:11) ANAPHYLAXIS latex Allergy (Severe, Verified 12/05/16 01:11) ANAPHYLAXIS Penicillins Allergy (Severe, Verified 12/05/16 01:11) ANAPHYLAXIS Sulfa (Sulfonamide Antibiotics) Allergy (Severe, Verified 12/05/16 01:11) ANAPHYLAXIS levothyroxine sodium [From Levoxyl] Allergy (Intermediate, Verified 12/05/16 01: 11) RASH acetaminophen Allergy (Mild, Verified 12/05/16 01:11) RASH codeine Allergy (Mild, Verified 11/17/16 00:23) RASH enoxaparin Allergy (Mild, Verified 11/17/16 00:23) RASH iodine Allergy (Mild, Verified 11/17/16 00:23) RASH influenza virus vaccine, specific Allergy (Verified 11/17/16 00:23) hives Home Medications: Home Meds Medication Instructions Recorded Confirmed Cinacalcet [Sensipar] 30 mg PO DIN 02/05/14 12/05/16 Esomeprazole Magnesium [Nexium] 40 mg PO DAILY 02/05/14 12/05/16 Rosuvastatin Calcium [Crestor] 20 mg PO DAILY 02/05/14 12/05/16 Sevelamer Carbonate [Renvela] 800 mg PO AC 02/05/14 12/05/16 Metoprolol Succinate 25 mg PO QPM 05/08/14 12/05/16 Review of Systems - Physician Review All systems were reviewed & negative as marked: Yes - Review of Systems Constitutional: Normal. absent: Fevers Eyes: Normal ENT: Normal Respiratory: SOB. absent: Cough Cardiovascular: Chest Pain Gastrointestinal: Normal. absent: Abdominal Pain, Diarrhea, Nausea, Vomiting Genitourinary Female: Normal. absent: Dysuria, Frequency, Hematuria, Urine Output Changes Musculoskeletal: Normal Skin: Normal Neurological: Normal Endocrine: Normal Hemo/Lymphatic: Normal Psychiatric: Normal Physical Exam Vital Signs Reviewed: Yes Vital Signs Temp Pulse Resp BP Pulse Ox 12/05/16 01:32 20 12/05/16 01:12 98.2 F 85 29 H 158/83 H 99 Temperature: Afebrile Blood Pressure: Hypertensive Pulse: Regular Respiratory Rate: Normal Appearance: Positive for: Well-Appearing, Non-Toxic, Comfortable Pain Distress: None Mental Status: Positive for: Alert and Oriented X 3 - Systems Exam Head: Present: Atraumatic, Normocephalic Pupils: Present: PERRL Extroacular Muscles: Present: EOMI Conjunctiva: Present: Normal Mouth: Present: Moist Mucous Membranes Neck: Present: Normal Range of Motion Respiratory/Chest: Present: Rhonchi. No: Respiratory Distress, Accessory Muscle Use Cardiovascular: Present: Regular Rate and Rhythm, Normal S1, S2. No: Murmurs Abdomen: Present: Normal Bowel Sounds. No: Tenderness, Distention, Peritoneal Signs Back: Present: Normal Inspection Upper Extremity: Present: Normal Inspection. No: Cyanosis, Edema Lower Extremity: Present: Normal Inspection. No: Edema Neurological: Present: GCS=15, CN II-XII Intact, Speech Normal Skin: Present: Warm, Dry, Normal Color. No: Rashes Psychiatric: Present: Alert, Oriented x 3, Normal Insight, Normal Concentration Medical Decision Making ED Course and Treatment: 12/05/16 01:22 Impression: 56 year old female complaining of worsening shortness of breath and chest tightness for the past few hours. Plan: -- EKG -- CXR -- Labs, cardiac enzymes, BNP, VBG, blood cultures -- UA -- Duoneb -- Reassess and disposition Prior Visits: Notes and results from previous visits were reviewed. 12/05/16 01:19 Reviewed EKG, NSR at 81 bpm. Non-specific ST/T wave changes. 12/05/16 02:04 Reviewed radiology, CXR shows possible right lower lobe infiltrate. 12/05/16 02:[address] Gomez, who is aware and agrees with plan. Accepts pt in to her service. Pt will go Telemetry observation for chest pain. Pt is no acute distress. Discussed results and hospital observation plan with pt who is aware and verbalizes understanding. - Lab Interpretations Microbiology Results: Microbiology Results 12/05/16 02:00 Blood-Venous Blood Culture - Preliminary NO GROWTH AFTER 48 HOURS 12/05/16 01:30 Blood-Venous Blood Culture - Preliminary NO GROWTH AFTER 48 HOURS Lab Results: 12/05/16 01:30 12/05/16 01:30 Lab Results 12/05/16 01:30: Sodium 136, Chloride 96 L, Potassium 5.1 H, Carbon Dioxide 29, Anion Gap 16, BUN 45 H, Creatinine 7.6 H, Est GFR ( Amer) 7, Est GFR (Non -Af Amer) 6, Random Glucose 104, Calcium 9.3, Phosphorus 3.8, Total Bilirubin 1.4 H, AST 38, ALT 40, Alkaline Phosphatase 273 H, Lactate Dehydrogenase 400, Total Creatine Kinase 59, Troponin I 0.05 D, NT-Pro-B Natriuret Pep [id number] H, Total Protein 7.1, Albumin 4.0, Globulin 3.1, Albumin/Globulin Ratio 1.3 12/05/16 01:30: pO2 72 H, VBG pH 7.43, VBG pCO2 48.0, VBG HCO3 31.9 H, VBG Total CO2 33.4 H, VBG O2 Sat (Calc) 96.8 H, VBG Base Excess 6.4 H, VBG Potassium 5.1, Sodium 136.0, Chloride 101.0, Glucose 107 H, Lactate 0.9, FiO2 21.0, Venous Blood Potassium 5.1 12/05/16 01:30: PT 11.2, INR 1.04, APTT 25.9 12/05/16 01:30: WBC 7.7 D, RBC 3.69, Hgb 10.7 L, Hct 33.3 L, MCV 90.2, MCH 29.0 , MCHC 32.1, RDW 16.3 H, Plt Count 150, MPV 9.3, Gran % 66.4, Lymph % (Auto) 23.1, [place] % (Auto) 4.7, Eos % (Auto) 5.1 H, Baso % (Auto) 0.7, Gran # 5.11, Lymph # 1.8, [place] # 0.4, Eos # 0.4, Baso # 0.05 I have reviewed the lab results: Yes - RAD Interpretation Radiology Orders: 12/05/16 01:22 CHEST PORTABLE [RAD] Stat [employer] And Emergency Clerk: ED Physician - EKG Interpretation Interpreted by ED Physician: Yes Type: 12 lead EKG - Medication Orders Current Medication Orders: Discontinued Medications Doxycycline Hyclate (Doryx) 100 mg PO Q12 [facility] Last Admin: 12/06/16 10:07 Dose: 100 mg Doxycycline Hyclate 100 mg/ (Sodium Chloride) 100 mls @ 100 mls/hr IVPB STAT STA PRN Reason: Protocol Stop: 12/05/16 03:49 Last Admin: 12/05/16 03:12 Dose: 100 mls/hr Levalbuterol HCl (Xopenex) 1.25 mg IH [id number] [facility] Last Admin: 12/06/16 08:40 Dose: 1.25 mg Losartan Potassium (Cozaar) 12.5 mg PO DAILY [facility] Last Admin: 12/06/16 10:07 Dose: 12.5 mg Methylprednisolone (Solu-Medrol) 20 mg IV Q12 [facility] Last Admin: 12/05/16 21:39 Dose: 20 mg Metoprolol Succinate (Toprol Xl) 25 mg PO BRK [facility] Last Admin: 12/06/16 10:07 Dose: 25 mg Metoprolol Tartrate (Lopressor) 50 mg PO BID [facility] Pantoprazole Sodium (Protonix Ec Tab) 40 mg PO ACB [facility] Last Admin: 12/06/16 08:06 Dose: 40 mg Prednisone (Prednisone Tab) 30 mg PO DAILY [facility] Last Admin: 12/06/16 10:07 Dose: 30 mg Sevelamer HCl (Renagel) 800 mg PO TID [facility] Last Admin: 12/06/16 10:08 Dose: 800 mg Disposition/Present on Arrival - Present on Arrival Any Indicators Present on Arrival: No History of DVT/PE: No History of Uncontrolled Diabetes: No Urinary Catheter: No History of Decub. Ulcer: No History Surgical Site Infection Following: None - Disposition Have Diagnosis and Disposition been Completed?: Yes Diagnosis: Dyspnea Disposition: HOSPITALIZED Disposition Time: 02:40 Condition: FAIR
[2016-12-05 01:39] LABS: ADD MANUAL DIFF? NO
[2016-12-05 01:43] LABS: VENOUS BLOOD GAS BASE EXCESS 6.4 mmol/L (0.0-2.0); VENOUS BLOOD PH 7.43 (7.32-7.43)
[2016-12-05 01:50] LABS: BASO # 0.05 K/mm3 (0.0-2.0); BASO % 0.7 % (0.0-3.0); EOS # 0.4 (0.0-0.7); EOS % 5.1 % (1.5-5.0); GRAN # 5.11 (1.4-6.5); GRAN % 66.4 % (50.0-68.0); HEMATOCRIT 33.3 % (36.0-48.0); LYMPH # 1.8 (1.2-3.4); LYMPH % 23.1 % (22.0-35.0); MEAN CELL VOLUME 90.2 fL (80.0-105.0); MEAN CORPUSCULAR HGB CONC 32.1 g/dl (31.0-37.0); MEAN PLATELET VOLUME 9.3 fl (7.0-11.0); MONO # 0.4 (0.1-0.6); MONO % 4.7 % (1.0-6.0); PLATELET COUNT 150 10^3/uL (120.0-450.0); RED CELL DISTRIBUTION WIDTH 16.3 % (11.5-14.5); WHITE BLOOD COUNT 7.7 10^3/ul (4.5-11.0)
[2016-12-05 01:52] LABS: ALB/GLOB RATIO 1.3 (1.1-1.8); BILIRUBIN,TOTAL 1.4 mg/dL (0.2-1.3); CALCIUM 9.3 mg/dL (8.4-10.5); POTASSIUM 5.1 mmol/L (3.6-5.0); TOTAL PROTEIN 7.1 g/dL (5.8-8.3)
[2016-12-05 02:00] LABS: INR 1.04 (0.93-1.08); PARTIAL THROMBOPLASTIN TIME 25.9 Seconds (23.7-30.8)
[2016-12-05 02:05] LABS: TROPONIN I 0.05 ng/mL
[2016-12-05 04:29] VITALS: BMI 28.3
--- NOTE | 2016-12-05 09:44 | RAD ---
HISTORY: sob COMPARISON: 09/12/2016 FINDINGS: LUNGS: No active pulmonary disease. PLEURA: No significant pleural effusion identified, no pneumothorax apparent. CARDIOVASCULAR: Mild cardiomegaly. Mild to moderate vascular congestion OSSEOUS STRUCTURES: No significant abnormalities. VISUALIZED UPPER ABDOMEN: Normal. OTHER FINDINGS: None. IMPRESSION: Mild cardiomegaly and mild to moderate vascular congestion
[2016-12-05 10:52] LABS: ADD MANUAL DIFF? NO
[2016-12-05 10:54] LABS: BASO # 0.07 K/mm3 (0.0-2.0); EOS # 0.4 (0.0-0.7); GRAN # 4.78 (1.4-6.5); GRAN % 68.1 % (50.0-68.0); HEMATOCRIT 31.4 % (36.0-48.0); LYMPH # 1.4 (1.2-3.4); LYMPH % 20.5 % (22.0-35.0); MEAN CORPUSCULAR HEMOGLOBIN 28.9 pg (25.0-35.0); MEAN CORPUSCULAR HGB CONC 32.2 g/dl (31.0-37.0); MEAN PLATELET VOLUME 9.5 fl (7.0-11.0); MONO # 0.3 (0.1-0.6); MONO % 4.4 % (1.0-6.0); PLATELET COUNT 135 10^3/uL (120.0-450.0); RED CELL DISTRIBUTION WIDTH 16.3 % (11.5-14.5)
[2016-12-05 11:08] LABS: ALB/GLOB RATIO 1.4 (1.1-1.8); BILIRUBIN,TOTAL 1.4 mg/dL (0.2-1.3); CALCIUM 9.1 mg/dL (8.4-10.5); MAGNESIUM 1.9 mg/dL (1.7-2.2); POTASSIUM 5.3 mmol/L (3.6-5.0); TOTAL PROTEIN 6.6 g/dL (5.8-8.3)
[2016-12-05 12:16] LABS: PHOSPHOROUS 3.8 mg/dL (2.5-4.5)
--- NOTE | 2016-12-05 12:54 | HP ---
HISTORY OF PRESENT ILLNESS: The patient is a 56-year-old known to me from multiple previous admissio ns. I saw the patient on Monday in the office. She was doing well. No nausea, vomiting, no diarrhe a, no fever, no chills. The patient does state that yesterday she felt very short of breath, denies eating or drinking very salty beverages or food. No fever or chills. No cough. She states shortnes s of breath got worse, so she called the ambulance, and she was brought to the Emergency Room. Denie s any nausea or vomiting. PAST MEDICAL HISTORY: Significant for: 1. End-stage renal disease, on hemodialysis. 2. Peptic ulcer disease. 3. History of left hip replacement. 4. History of pericardial effusion, status post pericardial window. 5. Recent history of C. diff colitis that she is being treated for that with p.o. vancomycin. 6. Right ventricular failure and passive congestion of liver giving her intermittent right upper daphne drant pain. SURGICAL HISTORY: Significant for: 1. Cholecystectomy. 2. Pericardial window. ALLERGIES: THE PATIENT HAS MULTIPLE ALLERGIES INCLUDIN. ASPIRIN. 2. CIPROFLOXACIN. 3. CITRUS. 4. ENALAPRIL. 5. HEPARIN. 6. LATEX. 7. PENICILLIN. 8. SULFA. 9. LEVOTHYROXINE. 10. ACETAMINOPHEN. 11. CODEINE. 12. ENOXAPARIN. 13. IODINE. 14. INFLUENZA VIRUS VACCINE. MEDICATIONS AT HOME: She is on Renvela 800 before each meal, Crestor 10 mg daily, metoprolol 25 q. p .m., Nexium 40 mg daily, Sensipar 30 mg daily. REVIEW OF SYSTEMS: Significant for dry cough and shortness of breath. PHYSICAL EXAMINATION: GENERAL: She was seen in nephrology department getting dialysis. She states she feels a lot better. No fever, no chills, no nausea or vomiting, no diarrhea. VITAL SIGNS: She is afebrile, pulse 82, respirations 20, blood pressure 153/75. LUNGS: Bilateral good airflow. No rhonchi or crackle. HEART: S1, S2 audible. ABDOMEN: Soft, nontender, no rebound, no guarding. NEUROLOGIC: The patient is awake and alert, communicative. LABORATORY EXAM: WBC is 7.0, hemoglobin 10, hematocrit 31, platelets of 135. PT 11.2, INR 1.04. Ch emistry: Sodium 136, potassium 5.3, chloride 96, CO2 of 28, BUN 47, creatinine 8.3, blood sugar 155, total bili 1.4, AST of 52, alk phos 25___. BNP is ____. ASSESSMENT: 1. Probably fluid overload. 2. Shortness of breath. 3. End-stage renal disease, on hemodialysis. 4. Peptic ulcer disease. 5. Right ventricular failure. PLAN: I will order for CT of the chest. If it is unremarkable, the patient can be discharged home t antalio, probably fluid overload caused her shortness of breath and prompted her to come to the Emergenc y Room. Shawn Gomez MD cc: [phone] TT: 12/05/2016 12:53:55 jn
--- NOTE | 2016-12-05 14:33 | CT ---
PROCEDURE: CT Chest without contrast dated 12/05/2016 HISTORY: sob COMPARISON: Comparison made with the CT scan chest dated 11/25/2015. TECHNIQUE: Contiguous axial images were obtained through the chest without intravenous contrast enhancement. Sagittal and coronal reconstructions were performed. Radiation dose (DLP): 293.25 mGy-cm. This CT exam was performed using one or more of the following dose reduction techniques: Automated exposure control, adjustment of the mA and/or kV according to patient size, and/or use of iterative reconstruction technique. FINDINGS: LUNGS: There appears to be at central lobular emphysematous changes upper lobe predominance. Additionally, diffuse mosaic appearance of the lung parenchyma suggesting perfusion abnormality out or of reactive airways disease. No focal consolidation however there does appear to be some mild atelectasis/scarring changes in both posterior lower lung zones on. Nodular opacity left upper lobe seen on axial series 2, image 44 of with a few translucent rounded nodules in the right upper lung field seen on axial series 2, image number 36 and 32. The the are of uncertain etiology and could represent some post inflammatory sequela, the possibility of early bronchioloalveolar carcinoma cannot be completely excluded. No effusion or pneumothorax. MEDIASTINUM: Unremarkable thoracic aorta. No aneurysm. The the heart is enlarged. Coronary artery calcifications are present . Main pulmonary artery unremarkable. No vascular congestion. There appears to be multiple mediastinal lymph nodes which appear hyperdense in the precarinal and subcarinal regions. . Recommend short interval follow-up CT scan with contrast material to assess on mediastinal adenopathy and exclude hilar adenopathy Clinical correlation recommended. PLEURA: No pleural fluid. No pneumothorax. BONES: No fracture. No destructive lesion. UPPER ABDOMEN: The kidneys are atrophic. Probable left renal cyst. Small splenic artery calcified aneurysm. OTHER FINDINGS: None. IMPRESSION: Centrilobular emphysematous changes upper lobe predominance. Mosaic appearance of the lung parenchyma suggesting on air trapping. Rule out perfusion abnormality versus or sequela of small airways disease. . There also are at atelectatic and or scarring changes seen in the posterior lower lung zones. Nodular opacity left upper lobe with at least 2 translucent nodular opacities in the right upper lobe of. Findings may be secondary postinflammatory sequela however the possibility of underlying malignancy cannot be excluded. There also appears to be mediastinal adenopathy which is somewhat hyperdense. Recommend short interval follow-up with contrast material to assess adenopathy. .
[2016-12-05] MEDS: Metoprolol Succinate 25 mg XL Tab PO SCH (14:43)
[2016-12-05] MEDS: Pantoprazole 40 mg EC Tab PO SCH (14:43)
--- NOTE | 2016-12-05 15:39 | CARD ---
APPROVED REPORT EKG Measurement Heart [id number] <Conclusion> Normal sinus rhythm Voltage criteria for left ventricular hypertrophy ST & T wave abnormality, consider lateral ischemia Prolonged QT Abnormal ECG
[2016-12-05] MEDS: Levalbuterol 1.25 MG/3 ML Inhal Soln UD IH SCH (20:18)
[2016-12-05] MEDS ORDERED: MethylPREDNISolone 40 mg Vial IV SCH (22:00)
--- NOTE | 2016-12-05 22:52 | CARD ---
APPROVED REPORT INDICATION CHEST PAIN,BRONCHITIS,CMP PROCEDURE The above named patient recieved 25 millicuries of Tc99m tagged red blood cells intravenously. After achieving equilibrium, gated imaging of 16/frame/cycle was performed utillizing Gamma camera interfaced with a digital computer and gated device. Gated imaging was then performed in the left anterior oblique, anterior, and the left lateral projections. Findings Left Ventricle: The quality of the study is good. The left ventricle is within normal limits in size. The right ventricle is normal in size. Wall motion study shows borderline normal contractility of the left ventricle. RV wall motion is normal. The right atrium is dynamic.. The left atrium is prominent. The remainder of the study is unremarkable. Impressions Borderline normal gated wall motion of left ventricle wall. LVEF = 49%. Normal RV wall motion. Prominent left atrium.
[2016-12-06 00:47] VITALS: RESP 20
[2016-12-06] MEDS: Levalbuterol 1.25 MG/3 ML Inhal Soln UD IH SCH ×2 (03:00→08:40)
[2016-12-06 06:24] VITALS: O2SAT 96
[2016-12-06 08:02] LABS: CHOLESTEROL 147 mg/dL (130-200)
[2016-12-06] MEDS: Pantoprazole 40 mg EC Tab PO SCH (08:06)
--- NOTE | 2016-12-06 08:07 | CON ---
DATE: 12/05/2016 REASON FOR CONSULTATION AND FOLLOWUP: Cardiac evaluation, admitted with shortness of breath, history of end-stage renal disease on dialysis, mitral regurgitation, tricuspid regurgitation, nonobstructiv e coronary artery disease. BRIEF CLINICAL HISTORY: This is a 56-year-old female with a past medical history significant for end -stage renal disease on dialysis past 2 years, focal glomerulonephritis, focal sclerosis glomerulonep hritis, history of pericardial effusion, status post pericardial window; nonobstructive coronary danielle ry disease, history of cardiac catheterization, end-stage renal disease secondary to focal ____ scler osis, on dialysis. Said that Monday was seen by Dr. Gomez but yesterday patient felt short of abdelrahman , called the ambulance and brought here. Denies any chest pain or palpitation. PAST HISTORY: Significant for end-stage renal disease on dialysis 7 years. 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 PAST SURGICAL HISTORY: Significant for cholecystectomy, left hip replacement, degenerative joint dis ease, bilateral knee arthritis, status post pericardial window because of large pericardial effusion , impending tamponade. PREVIOUS CARDIAC WORKUP: As follows: The patient had a cardiac catheterization 04/04/2014 that shows nonobstructive coronary artery disease. Last KADY 02/2016 that shows moderate mitral regurgitation. Repeat echocardiography again on 09/13/2016 that shows ejection fraction 35 to 40%, moderate mitral r egurgitation, severe tricuspid regurgitation, ejection fraction 64%, no pericardial effusion noted, m spg-rs-fxidnhnw pulmonary insufficiency, 4 chamber ____, ejection fraction 30% to 35%. SOCIAL HISTORY: Denies any smoking. Denies any history of alcohol abuse. CURRENT MEDICATIONS: The patient is taking Crestor, Zofran, Flagyl, metoprolol succinate, Nexium, Se nsipar and sevelamer. ALLERGIES: AMLODIPINE, HEPARIN, CODEINE, CIPRO, ASPIRIN, ACETAMINOPHEN, LIDOCAINE, AZITHROMYCIN, LEV AQUIN. REVIEW OF SYSTEMS: Per HPI. PHYSICAL EXAMINATION: As follows: VITAL SIGNS: Temperature afebrile, heart rate 80, blood pressure 130/80. HEENT: PERRLA, intact. NECK: Supple. No carotid bruits. No thyromegaly. CHEST: Clear to auscultation. HEART: S1, S2 regular. ABDOMEN: Soft. EXTREMITIES: Clubbing and cyanosis negative. BLOOD WORKUP: As follows: WBC 7, hemoglobin 10, hematocrit 31.4, platelet count 135. Chemistry roxie ws sodium 130, potassium 5.0, chloride 96, carbon dioxide 28, anion gap of 17, BUN 14.7, creatinine 8 .3. IMPRESSION: ____ disorder, shortness of breath, ____ secondary to cardiomyopathy, ejection fraction 35%, decompensated congestive heart failure, [id number]. BNP was 180,000. Nonobstructive hanna nary artery disease, end-stage renal disease. Last echo 09/13/2016 shows moderate mitral regurgitation , 4-chamber dilatation, ejection fraction 30% to 35%, trace aortic insufficiency, [id number] pu lmonary insufficiency, severe tricuspid regurg, right ventricular systolic pressure 64, consistent wi th severe ____ pulmonary hypertension. Possibly this episode of shortness of breath secondary to pul monary hypertension and ____ heart failure. RECOMMENDATION: Continue aggressive dialysis. We will get a MUGA scan to assess LV function and the need for long-term defibrillator, though be high risk because of the dialysis. The patient can get infection of the defibrillator as well. We will follow with you. Thank you, Dr. Gomez, for providing the opportunity in taking care of the patient. Po Mccullough MD cc: [id number] TT: 12/05/2016 15:21:41 Confirmation # [id number] Dictation # [id number] sn
--- NOTE | 2016-12-06 08:10 | CON ---
DATE: 12/06/2016 REASON FOR CONSULTATION: Chronic obstructive pulmonary disease. REFERRING PHYSICIAN: Dr. Gomez. HISTORY OF PRESENT ILLNESS: The patient is a 56-year-old female with past medical history significant for chronic obstructive pulmonary disease, positive extensive smoking history - still smokes, end-stage renal disease, hypertension , pancreatitis in the past, anemia, who presents to [facility] with worsening shortness of breath at rest, dyspnea on exertion, cough, and minimal sputum production for the past 2 days. The patient also complains of chest "tightness" for the past 1 day. She denies chest pain, coughing up of blood or chest pain - made worse with deep respirations. There are no temperatures, chills or infectious exposure by history. There is no history of night sweats, weight loss or appetite change prior to the above events. No history of leg or calf pains. No history of syncope or diaphoresis. No history of recent travel or trauma. REVIEW OF SYSTEMS: No history of nausea, vomiting or diarrhea. No new neurological or musculoskeletal complaints. Rest of review of systems is negative. ALLERGIES: ASPIRIN, CIPROFLOXACIN, ENALAPRIL, HEPARIN, PENICILLIN, SULFONAMIDES , CODEINE, IODINE AND ENOXAPARIN. SOCIAL HISTORY: Positive for extensive tobacco usage - still smokes. No alcohol. FAMILY HISTORY: No inheritable diseases. HOME MEDICATIONS: Include Renvela, Crestor, metoprolol, Cozaar, Nexium, Sensipar. PHYSICAL EXAMINATION: GENERAL: The patient appears very comfortable at rest. She is not short of breath. VITAL SIGNS: Temperature is 98.6, pulse on the monitor currently 71, respiratory rate 18, blood pressure 143/78. Oxygen saturation on nasal cannula is 96%. HEENT: Normocephalic, atraumatic. NECK: No JVD. CARDIOVASCULAR: Systolic ejection murmur at the lower left sternal border. No S3 gallop. LUNGS: Slight decreased breath sounds at the bases. Very minimal rhonchi. No wheezing. EXTREMITIES: Mild edema. No cyanosis, no clubbing. Calves are nontender to palpation. GASTROINTESTINAL: Abdomen is soft, nontender, nondistended. Bowel sounds are positive. SKIN: No acute rash. NEUROLOGIC: Limited at the present time. PERTINENT LABORATORY DATA: CAT scan of the chest was done and reviewed. There are centrilobular emphysema changes noted--especially in the upper lobes. There is a mild diffuse mosaic pattern of the lung parenchyma consistent with airway disease. There also appears to be some scarring at both lung bases. Lastly, there are few very small translucent opacities - all less than 5 mm - in the upper lobes. These are most likely inflammatory in nature. CBC: White count 7.0, hemoglobin 10.1, hematocrit 31.4, platelets of 135. Complete metabolic profile: Potassium 5.3, chloride 96, BUN 47, creatinine 8.3, glucose 155, total bilirubin 1.4, AST 52, alkaline phosphatase 258. Rest of the metabolic profile is within normal limits. IMPRESSION: 1. Acute bronchitis. 2. Chronic obstructive pulmonary disease. 3. End-stage renal disease. 4. Chronic anemia. PLAN: The patient presents to [facility] with a 2-day history of worsening pulmonary symptoms. In addition, she also presents with a 1-day history of chest "tightness." She was thus admitted for additional evaluation. I did review the CAT scan of the chest - as above. There are no significant nodules, masses, or consolidations. There are a few - very small - lucent densities noted in the upper lung jacinto--most likely inflammatory. Lastly, there is scarring at both lung bases. I would recommend repeating the CAT SCAN CHEST --- as an outpatient--in about 3 months. On physical exam, there is only minimal bronchospasm noted. In addition, there is no significant alveolar arterial gradient. I will continue with the nebulizer treatments for now, and change to oral prednisone this morning. Because of her age and above history, I will also start oral antibiotic therapy. There is no history of temperatures. There is no leukocytosis. The patient does feel much better this morning - compared to the past few days. She is significantly improved - compared to the initial presentation. Cardiology evaluation with Dr. Mccullough has also been ordered. The patient has no chest tightness this morning. Again, the clinical status of this patient is significantly improved. I will discuss the above with Dr. Gomez. Thank you very much for this pulmonary consultation. David Painting MD cc: [id number] TT: 12/06/2016 08:09:15 Confirmation # [id number] Dictation # [id number] mn MESFIN
--- NOTE | 2016-12-06 08:33 | CON ---
DATE: 12/05/2016 REASON FOR CONSULTATION: Need for dialysis. HISTORY OF PRESENTING ILLNESS: A 56-year-old lady, known to me from multiple previous admissions, ou tpatient hemodialysis, presented to the Emergency Room with shortness of breath, chest tightness, dys pnea on exertion. No abdominal pain, no nausea, no vomiting, diarrhea. No fever, no chills. In the Emergency Room, she was found to have a blood pressure of 158/83, heart rate of 85. She was b reathing at 24-28. Chest x-ray revealed a possible right lower lobe infiltrate. Hence, patient was admitted for pneumonia. PAST MEDICAL AND SURGICAL HISTORY: Hypertension, asthma, ESRD, history of pericardial effusion, dajuan cardial window, C. diff colitis, right ventricular failure, passive congestion of liver, cholecystect samantha. FAMILY HISTORY: Hypertension. SOCIAL HISTORY: Ex-smoker, no alcohol use, no IV drug abuse. ALLERGIES: ASPIRIN, CIPROFLOXACIN, ENALAPRIL, HEPARIN, PENICILLIN, SULFA. REVIEW OF SYSTEMS: All systems are reviewed, pertinent positives as mentioned in history of presenti ng illness, rest unremarkable. PHYSICAL EXAMINATION: GENERAL: Middle aged lady, lying in bed in the dialysis unit, in mild respiratory distress. VITAL SIGNS: 143/78, heart rate 82, respiratory rate 24, temperature 98.6. HEENT: Normocephalic, atraumatic, positive pallor. NECK: Supple, no JVD. LUNGS: Bilateral equal air entry, bilateral rhonchi, minimal rales. CARDIAC: S1, S2, regular rate and rhythm, no murmur, no rub. ABDOMEN: Soft, nondistended, nontender, bowel sounds present. EXTREMITIES: No lower extremity edema. LABORATORY DATA: WBC 7.0, hemoglobin 10.1, hematocrit 31, platelets 135. Sodium 136, potassium 5.3, chloride 96, CO2 28, BUN 47, creatinine 8.3, glucose 155, calcium 9.1, phosphorus 4.0, magnesium 1.9 , total bilirubin 1.4, AST 52, ALT 47. BNP 180,000. Albumin 3.4. ASSESSMENT: 1. Decompensated congestive heart failure. 2. Volume overload. 3. Possible pneumonia. 4. End-stage renal disease. 5. Hypertension. PLAN: 1. The patient is receiving dialysis at this time. 2. Ultrafiltrate 2-1/2 to 3 kilograms as tolerated. 3. The patient is counseled regarding fluid restriction. 4. Empiric antibiotics for possible healthcare-associated pneumonia as this patient was just recentl y discharged from the hospital. Thank you for the courtesy of this consultation. We will follow this patient closely with you. Mansi Rose MD cc: [id number] TT: 12/06/2016 08:32:35 Confirmation # [id number] Dictation # [id number] en
[2016-12-06] MEDS ORDERED: levoFLOXacin 500 MG TAB PO SCH (10:00)
[2016-12-06] MEDS: Metoprolol Succinate 25 mg XL Tab PO SCH (10:07)
--- NOTE | 2016-12-06 11:08 | PN ---
DATE: 12/06/2016 REASON FOR CONSULTATION AND FOLLOWUP: Cardiac evaluation, admitted with shortness of breath, history of end-stage renal disease on dialysis, mitral regurg, tricuspid regurg, nonobstructive coronary art jessika disease. BRIEF CLINICAL HISTORY: This is a 56-year-old female with a past medical history significant for end -stage renal disease on dialysis secondary to focal glomerulosclerosis, on dialysis, history of peric ardial effusion, history of pericardial tamponade, history of cardiac catheterization, nonobstructive coronary artery disease. Last KADY 02/2016 that shows moderate mitral regurgitation. Repeat echo in 09/2016 showed ejection fraction 35%-40%. Last echo shows ejection fraction decreased 30%-35%, so nagi kowalski underwent yesterday for MUGA scan to assess the need for AICD. Feels better after dialysis. PHYSICAL EXAMINATION: VITAL SIGNS: Temperature afebrile, heart rate 82, blood pressure 143/78. HEENT: PERRLA. Extraocular muscles intact. NECK: Supple. No carotid bruits. No thyromegaly. CHEST: Clear to auscultation. HEART: S1, S2 regular. ABDOMEN: Soft. EXTREMITIES: Clubbing, cyanosis negative. BLOOD WORKUP: WBC 7, hemoglobin 10. , hematocrit 31.4, platelet count 135. Chemistry shows sodi um 130, potassium 5.3, chloride , carbon dioxide 28. BNP 180,000. IMPRESSION: Decompensated congestive heart failure, acute on chronic systolic dysfunction as well as systolic dysfunction, end-stage renal disease on dialysis, cardiomyopathy, nonischemic. Last echo s hows ejection fraction 30%-35%, moderate mitral regurgitation, moderate tricuspid regurgitation. Yes terday, patient got MUGA scan that shows ejection fraction 49%, nonischemic cardiomyopathy. Last tra nsesophageal echocardiogram 02/2016 shows moderate mitral regurgitation. Repeat echo done in September , moderate mitral regurgitation, severe tricuspid regurgitation, right heart failure. RECOMMENDATION: Aggressive dialysis. Will continue low-dose beta edith. Monitor renal function. In the long-term, monitor the patient's ejection fraction. If ejection fraction goes below 35, cons ider automatic implantable cardioverter-defibrillator, but right now, patient is holding. We will fo llow with you. Thank you, Dr. Gomez, for providing us the opportunity in taking care of the patient. If remains s table, possible discharge home today. We will increase metoprolol and change to metoprolol tartrate 50 mg b.i.d. Thank you, Dr. Gomez, for providing us the opportunity in taking care of the patient. We will disc ontinue telemetry. Po Mccullough MD cc:Shawn Gomez MD [id number] TT: 12/06/2016 11:07:37 Confirmation # [id number] Dictation # [id number] en
[2016-12-06 12:29] VITALS: BP 144/76; PULSE 79; TEMP 97.6
--- NOTE | 2016-12-06 12:52 | DS ---
The patient is a 56-year-old, seen and examined, lying in bed, seems to be comfortable. No nausea, v omiting, no diarrhea. Still has cough and congestion, but no exertional dyspnea, no chest pain. PHYSICAL EXAMINATION: VITAL SIGNS: She is afebrile, pulse 88, respirations 20, blood pressure 143/78. LUNGS: Bilateral diffusely decreased breath sounds. HEART: S1, S2 audible. ABDOMEN: Soft, nontender, no rebound, no guarding. NEUROLOGIC: She is awake and alert, communicative, ambulatory. She had CT scan of the chest done that shows centrilobular emphysematous changes and upper lobe predo minantly mosaic appearance of the lung parenchyma and also has atelectasis and scarring in the district plant superintendent ior lung zone. She has nodular opacity in the left upper lobe with . ASSESSMENT: 1. Chronic obstructive pulmonary disease exacerbation. 2. Status post fluid overload. 3. Hypertension. 4. End-stage renal disease, on hemodialysis. The patient had MUGA scan done that shows left ventricular ejection fraction of 49%, normal right audra tricle and wall motion. PLAN: The patient was evaluated by payable manager. The patient is currently on doxycycline and predn isone. That will taper down. She is clinically stable, will be discharged home today on p.o. doxycy renteria and prednisone. Shawn Gomez MD cc: [id number] TT: 12/06/2016 12:51:49 en
== END 2016-12-06 14:16 | disposition home or self-care (01) ==
LOC: ED 01:04 → ERH 02:52 → 2RNO 04:03
PROVIDERS: ADMIT Internal Medicine; ATTEND Internal Medicine
DX: J44.1 Chronic obstructive pulmonary disease with (acute) exacerbation (principal); N18.6 End stage renal disease; I13.2 Hypertensive heart and chronic kidney disease with heart failure and with stage 5 chronic kidney disease, or end stage renal disease; I50.23 Acute on chronic systolic (congestive) heart failure; K27.9 Peptic ulcer, site unspecified, unspecified as acute or chronic, without hemorrhage or perforation; I42.9 Cardiomyopathy, unspecified; I25.10 Atherosclerotic heart disease of native coronary artery without angina pectoris; N05.2 Unspecified nephritic syndrome with diffuse membranous glomerulonephritis; I27.2 Other secondary pulmonary hypertension; F17.200 Nicotine dependence, unspecified, uncomplicated; D64.9 Anemia, unspecified; J44.0 Chronic obstructive pulmonary disease with (acute) lower respiratory infection; J20.9 Acute bronchitis, unspecified; J45.909 Unspecified asthma, uncomplicated; N26.9 Renal sclerosis, unspecified; Z88.2 Allergy status to sulfonamides; Z99.2 Dependence on renal dialysis; Z88.6 Allergy status to analgesic agent; Z88.8 Allergy status to other drugs, medicaments and biological substances; Z88.0 Allergy status to penicillin
CPT/HCPCS: 36415; 71010; 71250; 78472; 80053; 80061; 82550; 82803; 83036; 83615; 83735; 83880; 84100; 84443; 84484; 85025; 85610; 85730; 87040; 93005; 94640; 94760; 96365; 96375; 99285; G0257; G0378; J2920

== ENCOUNTER 2016-12-17 02:02 | Inpatient (IN) | payer MEDICARE, BC ==
--- NOTE | 2016-12-17 02:54 | ED PDOC ---
Arrival/HPI - General Chief Complaint: Headache Time Seen by Provider: 12/17/16 02:24 Historian: Patient - History of Present Illness Narrative History of Present Illness (Text): 12/17/16 02:54 Jacqui Kraus is a 56 year old female, whose past medical history includes ESRD on hemodialysis (Monday/Monday/Monday), hypertension, COPD, chronic anemia, chronic pancreatitis, and small brain aneurysm, who presents to the emergency department complaining of cough and chills since yesterday following dialysis. Patient reports associated generalized weakness, bilateral leg pain, and swollen neck glands. Patient also experiencing a headache which she reports she usually gets following dialysis. Patient denies any dizziness, focal neurological deficits, fever, chills, chest pain, shortness of breath, abdominal pain, nausea, vomiting, diarrhea, urinary symptoms, back pain, neck pain, or any other complaints. PMD: Dr. Yessenia Gomez General Ledger Bookkeeper: Dr. Emily Rose Time/Duration: 4-6 hours Symptom Onset: Gradual Symptom Course: Unchanged Activities at Onset: Rest, Light Context: Home Past Medical History - Provider Review Nursing Documentation Reviewed: Yes - Past History Past History: Non-Contributing - Infectious Disease Hx of Infectious Diseases: None - Tetanus Immunization Tetanus Immunization: Up to Date - Reproductive Menopause: Yes - Cardiac Hx Cardiac Disorders: Yes Hx Heart Murmur: Yes - Pulmonary Hx Respiratory Disorders: No - Neurological Hx Neurological Disorder: Yes Hx Headaches: Yes - HEENT Hx HEENT Disorder: Yes (torn retina left eye) Hx Deafness: No (hard of hearing) Other/Comment: can't see center of anything due to torn retina left eye since 1979, no sx - Renal Hx Renal Disorder: Yes Hx Dialysis: Yes - Endocrine/Metabolic Hx Endocrine Disorders: No - Hematological/Oncological Hx Blood Disorders: Yes Hx Anemia: Yes Hx Blood Transfusions: Yes (1983) Hx Blood Transfusion Reaction: No - Integumentary Hx Dermatological Disorder: No - Musculoskeletal/Rheumatological Hx Musculoskeletal Disorders: Yes Other/Comment: congenital hip defect - Gastrointestinal Hx Gastrointestinal Disorders: Yes (barretts esophagus) Hx Gall Bladder Disease: Yes Hx Gastroesophageal Reflux: Yes Other/Comment: abdominal pain - Genitourinary/Gynecological Hx Genitourinary Disorders: No - Psychiatric Hx Psychophysiologic Disorder: No Hx Substance Use: No - Surgical History Hx Cardiac Catheterization: Yes (04/04/14) Hx Cholecystectomy: Yes (lap dyllan) Hx Orthopedic Surgery: Yes (hip dislocation) Other/Comment: pericardial window, pericardiocenthesis 2014, c sections x2, T&A , fistulagram - Anesthesia Hx Anesthesia Reactions: No Hx Malignant Hyperthermia: No - Suicidal Assessment Feels Threatened In Home Enviroment: No Family/Social History - Physician Review Nursing Documentation Reviewed: Yes Family/Social History: No Known Family HX Smoking Status: Heavy Smoker > 10 Cigarettes Daily Hx Alcohol Use: Yes Hx Substance Use: No Hx Substance Use Treatment: No Allergies/Home Meds Allergies/Adverse Reactions: Allergies aspirin Allergy (Severe, Verified 12/05/16 01:11) ANAPHYLAXIS ciprofloxacin Allergy (Severe, Verified 12/05/16 01:11) ANAPHYLAXIS [place] And Derivatives Allergy (Severe, Verified 12/05/16 01:11) ANAPHYLAXIS enalapril Allergy (Severe, Verified 12/05/16 01:11) HIVES heparin Allergy (Severe, Verified 12/05/16 01:11) ANAPHYLAXIS latex Allergy (Severe, Verified 12/05/16 01:11) ANAPHYLAXIS Penicillins Allergy (Severe, Verified 12/05/16 01:11) ANAPHYLAXIS Sulfa (Sulfonamide Antibiotics) Allergy (Severe, Verified 12/05/16 01:11) ANAPHYLAXIS levothyroxine sodium [From Levoxyl] Allergy (Intermediate, Verified 12/05/16 01: 11) RASH acetaminophen Allergy (Mild, Verified 12/05/16 01:11) RASH codeine Allergy (Mild, Verified 11/17/16 00:23) RASH enoxaparin Allergy (Mild, Verified 11/17/16 00:23) RASH iodine Allergy (Mild, Verified 11/17/16 00:23) RASH influenza virus vaccine, specific Allergy (Verified 11/17/16 00:23) hives Home Medications: Home Meds Medication Instructions Recorded Confirmed Cinacalcet [Sensipar] 30 mg PO DIN 02/05/14 12/17/16 Esomeprazole Magnesium [Nexium] 40 mg PO DAILY 02/05/14 12/17/16 Rosuvastatin Calcium [Crestor] 20 mg PO DAILY 02/05/14 12/17/16 Sevelamer Carbonate [Renvela] 800 mg PO AC 02/05/14 12/17/16 Metoprolol Succinate 25 mg PO QPM 05/08/14 12/17/16 Review of Systems - Physician Review All systems were reviewed & negative as marked: Yes - Review of Systems Constitutional: Other (+generalized weakness, +chills). absent: Fevers Eyes: Normal ENT: Other (+swollen neck glands) Respiratory: Cough. absent: SOB Cardiovascular: Normal. absent: Chest Pain Gastrointestinal: Normal. absent: Abdominal Pain, Diarrhea, Nausea, Vomiting Genitourinary Female: Normal Musculoskeletal: Other (+bilateral leg pain). absent: Back Pain, Neck Pain Skin: Normal. absent: Rash Neurological: Headache Endocrine: Normal Hemo/Lymphatic: Normal Psychiatric: Normal Physical Exam Vital Signs Reviewed: Yes Vital Signs Temp Pulse Resp BP Pulse Ox 12/17/16 06:03 79 16 161/80 H 94 L 12/17/16 05:51 86 16 161/81 H 97 12/17/16 05:39 83 18 161/82 H 94 L 12/17/16 05:24 80 18 160/72 H 95 12/17/16 05:09 81 17 156/77 H 95 12/17/16 04:49 87 18 173/77 H 95 12/17/16 04:34 86 16 161/79 H 95 12/17/16 04:24 86 16 160/78 H 95 12/17/16 04:03 86 16 162/80 H 95 12/17/16 03:36 79 16 156/75 H 95 12/17/16 02:31 83 16 147/79 96 12/17/16 02:09 99.2 F 85 16 171/82 H 96 Temperature: Afebrile Blood Pressure: Hypertensive Pulse: Regular Respiratory Rate: Normal Appearance: Positive for: Well-Appearing, Non-Toxic, Comfortable Pain Distress: None Mental Status: Positive for: Alert and Oriented X 3 - Systems Exam Head: Present: Atraumatic, Normocephalic Pupils: Present: PERRL Extroacular Muscles: Present: EOMI Conjunctiva: Present: Normal Mouth: Present: Moist Mucous Membranes Neck: Present: Normal Range of Motion Respiratory/Chest: Present: Clear to Auscultation, Good Air Exchange. No: Respiratory Distress, Accessory Muscle Use Cardiovascular: Present: Regular Rate and Rhythm, Normal S1, S2. No: Murmurs Abdomen: Present: Normal Bowel Sounds. No: Tenderness, Distention, Peritoneal Signs Back: Present: Normal Inspection Upper Extremity: Present: Normal Inspection. No: Cyanosis, Edema Lower Extremity: Present: Normal Inspection, NORMAL PULSES, Normal ROM, Neurovascularly Intact. No: Edema, CALF TENDERNESS, Stanislav's Sign, Tenderness, Swelling, Deformity Neurological: Present: GCS=15, CN II-XII Intact, Speech Normal, Motor Func Grossly Intact, Normal Sensory Function Skin: Present: Warm, Dry, Normal Color. No: Rashes Lymphatic: Present: Cervical Adenopathy (Slight tender left-sided cervical adenopathy) Psychiatric: Present: Alert, Oriented x 3, Normal Insight, Normal Concentration Medical Decision Making ED Course and Treatment: 12/17/16 02:54 Impression: 56 year old female complaining of cough, chills, headache, generalized weakness , leg pain, and swollen neck glands. Plan: -- EKG -- CXR -- CT Head w/o contrast -- Labs, cardiac enzymes, VBG, blood cultures -- Reassess and disposition Prior Visits: Notes and results from previous visits were reviewed. Progress Notes: 12/17/16 03:28 Reviewed EKG, NSR at [address]/T wave changes. 12/17/16 04:48 Reviewed labs, BNP:[id number]. Reviewed radiology, CXR shows: 1. Probable mild pulmonary vascular congestion. Clinical correlation is needed. 2. RIGHT basilar atelectasis vs pneumonia vs dependent edema. 3. Incidental/non-acute findings are described above. 12/17/16 05:32 CT Head shows: 1. Probable meningioma, stable. 2. Incidental/non-acute findings are described above. 12/17/16 05:[address] Gomez, who is aware and agrees with plan. Accepts pt in to her service. Pt will go to [facility] for pneumonia and sepsis. Requests Dr. Walsh consult. - Lab Interpretations Lab Results: 12/17/16 03:30 12/17/16 03:30 Lab Results 12/17/16 03:30: NT-Pro-B Natriuret Pep 197599 H 12/17/16 03:30: Sodium 138, Chloride 92 L, Potassium 3.9, Carbon Dioxide 36 H, Anion Gap 14, BUN 32 H, Creatinine 4.4 H, Est GFR ( Amer) 13, Est GFR ( Non-Af Amer) 10, Random Glucose 78, Calcium 8.4, Total Bilirubin 1.3, AST 33, ALT 66 H, Alkaline Phosphatase 283 H, Total Protein 6.6, Albumin 3.7, Globulin 2.9, Albumin/Globulin Ratio 1.3 12/17/16 03:30: pO2 45, VBG pH 7.45 H, VBG pCO2 58.0, VBG HCO3 40.3 H, VBG Total CO2 42.1 H, VBG O2 Sat (Calc) 86.0 H, VBG Base Excess 13.6 H, Sodium 138.0 , Chloride 99.0, Glucose 72, Lactate 1.1, FiO2 21.0 12/17/16 03:30: PT 11.3, INR 1.05, APTT 25.9 12/17/16 03:30: WBC 9.9 D, RBC 3.67, Hgb 10.7 L, Hct 33.9 L, MCV 92.4, MCH 29.2 , MCHC 31.6, RDW 17.1 H, Plt Count 166, MPV 8.8, Gran % 70.7 H, Lymph % (Auto) 19.0 L, [place] % (Auto) 5.6, Eos % (Auto) 4.3, Baso % (Auto) 0.4, Gran # 6.98 H, Lymph # 1.9, [place] # 0.6, Eos # 0.4, Baso # 0.04 I have reviewed the lab results: Yes - RAD Interpretation Narrative RAD Interpretations (Text): CXR shows: Lungs: Hazy reticular interstitial opacities. Mild patchy opacity RIGHT lung base. Pleural space: No definite pleural effusion. No pneumothorax. Heart: Moderate cardiomegaly. Mediastinum: Prominence of central pulmonary vasculature. Bones/joints: No acute fracture. Vasculature: Subclavian stent. IMPRESSION: 1. Probable mild pulmonary vascular congestion. Clinical correlation is needed. 2. RIGHT basilar atelectasis vs pneumonia vs dependent edema. 3. Incidental/non-acute findings are described above. CT Head shows: Brain: Mild atrophy. No intracranial hemorrhage. 1.5 x 1.0 cm partially calcified hyperdense parafalcine mass posterior to ventricles, stable. No definite edema. Ventricles: No hydrocephalus. Bones/joints: No acute fracture. Soft tissues: Unremarkable. Vasculature: Mild atherosclerotic disease of intracranial arteries. Sinuses: No acute sinusitis. Mastoid air cells: No mastoid effusion. Orbits: Unremarkable as visualized. IMPRESSION: 1. Probable meningioma, stable. 2. Incidental/non-acute findings are described above. Radiology Orders: 12/17/16 02:55 CHEST PORTABLE [RAD] Stat 12/17/16 04:37 HEAD W/O CONTRAST [CT] Stat Whiskey Filterer: Radiologist - EKG Interpretation Interpreted by ED Physician: Yes Type: 12 lead EKG - Medication Orders Current Medication Orders: Vancomycin HCl (Vancomycin 1gm) 1 gm in 250 mls @ 133.333 mls/hr IVPB STAT STA PRN Reason: Protocol Stop: 12/17/16 07:44 Last Admin: 12/17/16 06:10 Dose: 133.333 mls/hr Doxycycline Hyclate 100 mg/ (Sodium Chloride) 100 mls @ 100 mls/hr IVPB Q12 LEX PRN Reason: Protocol Discontinued Medications Oxycodone HCl (Oxycodone Immediate Release Tab) 5 mg PO STAT STA Stop: 12/17/16 05:17 Last Admin: 12/17/16 05:28 Dose: 5 mg - Debraibe Statement The provider has reviewed the documentation as recorded by the Corinne Friedman Provider Attestation: All medical record entries made by the Corinne were at my direction and personally dictated by me. I have reviewed the chart and agree that the record accurately reflects my personal performance of the history, physical exam, medical decision making, and the department course for this patient. I have also personally directed, reviewed, and agree with the discharge instructions and disposition. Disposition/Present on Arrival - Present on Arrival Any Indicators Present on Arrival: No History of DVT/PE: No History of Uncontrolled Diabetes: No Urinary Catheter: No History of Decub. Ulcer: No History Surgical Site Infection Following: None - Disposition Have Diagnosis and Disposition been Completed?: Yes Diagnosis: Headache, Pneumonia, End stage renal failure on dialysis Disposition: HOSPITALIZED Disposition Time: 05:53 Patient Plan: Admission Patient Problems: Current Active Problems Problem Status Onset End stage renal failure on dialysis Acute Headache Acute Pneumonia Acute Condition: STABLE
[2016-12-17 03:40] LABS: ADD MANUAL DIFF? NO
[2016-12-17 03:54] LABS: ALB/GLOB RATIO 1.3 (1.1-1.8); BILIRUBIN,TOTAL 1.3 mg/dL (0.2-1.3); CALCIUM 8.4 mg/dL (8.4-10.5); POTASSIUM 3.9 mmol/L (3.6-5.0); TOTAL PROTEIN 6.6 g/dL (5.8-8.3)
[2016-12-17 04:04] LABS: HEMATOCRIT 33.9 % (36.0-48.0); MEAN CELL VOLUME 92.4 fL (80.0-105.0); MEAN CORPUSCULAR HEMOGLOBIN 29.2 pg (25.0-35.0); MEAN CORPUSCULAR HGB CONC 31.6 g/dl (31.0-37.0); RED CELL DISTRIBUTION WIDTH 17.1 % (11.5-14.5); WHITE BLOOD COUNT 9.9 10^3/ul (4.5-11.0)
[2016-12-17 04:05] LABS: BASO # 0.04 K/mm3 (0.0-2.0); BASO % 0.4 % (0.0-3.0); EOS # 0.4 (0.0-0.7); EOS % 4.3 % (1.5-5.0); GRAN # 6.98 (1.4-6.5); GRAN % 70.7 % (50.0-68.0); LYMPH # 1.9 (1.2-3.4); MEAN PLATELET VOLUME 8.8 fl (7.0-11.0); MONO # 0.6 (0.1-0.6); MONO % 5.6 % (1.0-6.0); PLATELET COUNT 166 10^3/uL (120.0-450.0)
[2016-12-17 04:10] LABS: INR 1.05 (0.93-1.08); PARTIAL THROMBOPLASTIN TIME 25.9 Seconds (23.7-30.8)
--- NOTE | 2016-12-17 04:45 | RAD ---
EXAM: XR Chest, 1 View CLINICAL HISTORY: 56 years old, female; Pain; Chest pain; Type not specified; Additional info: Sepsis patient TECHNIQUE: Frontal view of the chest. COMPARISON: CT - CHEST W/O CONTRAST 12/05/2016 1:41:22 PM FINDINGS: Lungs: Hazy reticular interstitial opacities. Mild patchy opacity RIGHT lung base. Pleural space: No definite pleural effusion. No pneumothorax. Heart: Moderate cardiomegaly. Mediastinum: Prominence of central pulmonary vasculature. Bones/joints: No acute fracture. Vasculature: Subclavian stent. IMPRESSION: 1. Probable mild pulmonary vascular congestion. Clinical correlation is needed. 2. RIGHT basilar atelectasis vs pneumonia vs dependent edema. 3. Incidental/non-acute findings are described above.
[2016-12-17 05:10] LABS: VENOUS BLOOD PH 7.45 (7.32-7.43)
[2016-12-17 05:15] LABS: VENOUS BLOOD GAS BASE EXCESS 13.6 mmol/L (0.0-2.0)
[2016-12-17] MEDS ORDERED: oxyCODONE 5 mg Immediate Release Tab PO STA (05:16)
--- NOTE | 2016-12-17 05:16 | CT ---
EXAM: CT Head Without Intravenous Contrast CLINICAL HISTORY: 56 years old, female; Pain; Headache; Headache not specified TECHNIQUE: Axial computed tomography images of the head/brain without intravenous contrast. This CT exam was performed using one or more of the following dose reduction techniques: automated exposure control, adjustment of the mA and/or kV according to patient size, and/or use of iterative reconstruction technique. COMPARISON: CT - HEAD 07/22/2016 FINDINGS: Brain: Mild atrophy. No intracranial hemorrhage. 1.5 x 1.0 cm partially calcified hyperdense parafalcine mass posterior to ventricles, stable. No definite edema. Ventricles: No hydrocephalus. Bones/joints: No acute fracture. Soft tissues: Unremarkable. Vasculature: Mild atherosclerotic disease of intracranial arteries. Sinuses: No acute sinusitis. Mastoid air cells: No mastoid effusion. Orbits: Unremarkable as visualized. IMPRESSION: 1. Probable meningioma, stable. 2. Incidental/non-acute findings are described above.
[2016-12-17] MEDS ORDERED: Vancomycin 1gm in NS 250ml 1 GM/250 ML BAG IVPB STA (05:52)
[2016-12-17 07:08] LABS: TROPONIN I 0.06 ng/mL
--- NOTE | 2016-12-17 10:06 | CARD ---
APPROVED REPORT EKG Measurement Heart [id number] <Conclusion> Normal sinus rhythm Possible Left atrial enlargement Left ventricular hypertrophy ST & T wave abnormality, consider lateral ischemia Prolonged QT No change
[2016-12-17] MEDS: Pantoprazole 40 mg EC Tab PO SCH (13:19)
--- NOTE | 2016-12-17 15:15 | HP ---
HISTORY OF PRESENT ILLNESS: The patient is a 56-year-old. She states she was doing well up until ye morning after she had dialysis. She started to have chills and did not have documented fever and she also noted her throat is swollen and she had some difficulty swallowing. Denies any chest p ain, no shortness of breath. No history of nausea or vomiting. She does complain of scanty cough; h owever, she is an active smoker. Complains of generalized weakness, bilateral leg pain. Complained of pain and headaches. She states that since she finished course of p.o. vancomycin, her diarrhea kohler s subsided and she has no more abdominal pain. PAST MEDICAL HISTORY: Significant for: 1. Hypertension. 2. End-stage renal disease, on hemodialysis. 3. History of peptic ulcer disease. 4. Status post left hip replacement. PAST SURGICAL HISTORY: Significant for: 1. Recent cholecystectomy and pericardial window. 2. History of left hip replacement. ALLERGIES: SHE HAS MULTIPLE ALLERGIES INCLUDING ASPIRIN, CIPRO, [place] FRUITS, ENALAPRIL, HEPARIN, L ATEX, PENICILLIN, SULFA DRUGS, LEVOTHYROXINE, ACETAMINOPHEN, CODEINE, ENOXAPARIN, IODINE AND INFLUENZ A VIRUS VACCINE. MEDICATIONS AT HOME: She is on Renvela 800 three times a day, Crestor 10 mg daily, metoprolol 25 hugh ly, Nexium 40 mg daily, Sensipar 30 mg daily. REVIEW OF SYSTEMS: Significant for sore throat and lymph node enlargement in the upper throat area. PHYSICAL EXAMINATION: GENERAL: She is awake and alert, communicative, not in any acute distress. She does have positive s ubmandibular gland. VITAL SIGNS: She is afebrile, pulse 78, respirations 18, blood pressure 149/76. LUNGS: Bilateral good airflow, no rhonchi or crackle. HEART: S1, S2 audible. ABDOMEN: Soft, nontender, no rebound, no guarding. NEUROLOGIC: She is awake and alert, communicative. LABORATORY DATA: WBC is 9.9, hemoglobin 10.7, hematocrit 33.9, platelets 166. Chemistry: Sodium 13 8, potassium 3.9, chloride 92, CO2 36, BUN 32, creatinine 4.4. Blood sugar of 78. LFTs are within n ormal limits. BNP is 192,000. ASSESSMENT: 1. Acute pharyngitis. 2. Post-dialysis chills and body aches and pain, rule out bacteremia. 3. End-stage renal disease, on hemodialysis. 4. Hypertension. 5. Peptic ulcer disease. PLAN: The patient was given one dose of 1 gram of vancomycin. She has been started on doxycycline. We will follow up blood cultures. If blood cultures are negative and sore throat improved, she can be discharged home in a.m. on p.o. antibiotics. Shawn Gomez MD cc: [id number] TT: 12/17/2016 15:15:25 ochoa
--- NOTE | 2016-12-17 15:47 | CON ---
DATE: 12/17/2016 The patient is in bed in room 574, bed 1. CHIEF COMPLAINT: Weakness times several days. HISTORY OF PRESENT ILLNESS: A 56-year-old female with history of Dan's esophagitis, history of h ypertension, hyperlipidemia, history of chronic renal failure on hemodialysis, and peptic ulcer disea se, high cholesterol, and anemia who was admitted with a diagnosis of pneumonia. Infectious disease consultation requested. The patient states that she has not had any ____, although she states she kohler s chills and she has also complained of headache and she has occasional abdominal discomfort, she als o has chronic pancreatitis and has a brain aneurysm and was admitted through the Emergency Room compl aining of headaches and cough. The patient also complaining of chills and generalized weakness. She states her glands in her neck are swollen; however, they have improved now. There have been no feve rs. She does not have any chest pain or abdominal pain and now she states she is doing much better. She has no nausea, vomiting, diarrhea. PAST MEDICAL HISTORY: Significant for Dan's esophagitis, hypertension, chronic renal failure on hemodialysis, hyperlipidemia, peptic ulcer disease, high cholesterol, anemia, chronic pain and histor y of small brain aneurysm. PAST SURGICAL HISTORY: A left AV fistula, laparoscopic cholecystectomy, x 2, hip surgery, pericardial window, cardiac catheterization. ALLERGIES: PENICILLIN, CIPRO AND SULFA. THE TYPE OF ALLERGY IS NOT ENTIRELY CLEAR. MEDICATIONS AT HOME: Include prednisone and statin and Protonix and Lopressor and metoprolol. PHYSICAL EXAMINATION: GENERAL: The patient is in bed in no acute distress with a temperature of 98, blood pressure is 149/ 70, respiratory rate of 18, heart rate of 78. HEENT: Unremarkable. NECK: Supple. LUNGS: Have decreased breath sounds. HEART: Normal S1, S2. ABDOMEN: Soft, nontender. LABORATORY EXAMINATION: Reveals a white count of 9.9, hemoglobin of 10 and platelets of 166. BUN of 32, creatinine of 4.4, alkaline phosphatase is 283. BNP is 192,000. The patient had a CAT scan of the head shows a probable meningioma which is stable and EKG shows a QTC of 513. Chest x-ray which s hows congestion and right basilar atelectasis versus pneumonia versus edema was read by Dr. Rl herrmann . Review of the orders reveals the blood cultures have been ordered. Procalcitonin is ordered. The pa amaury was given a dose of vancomycin. ASSESSMENT AND PLAN: A 56-year-old female with Dan's esophagitis, hypertension, chronic renal fa ilure on hemodialysis, hyperlipidemia, peptic ulcer disease, high cholesterol, anemia, chronic pain, small brain aneurysm who was admitted with acute systolic congestive heart failure. I doubt bacteria l healthcare-associated pneumonia versus bacteremia and patient has had laparoscopic cholecystectomy and was given a dose of vancomycin, currently on p.o. doxycycline. Check on blood cultures, Procalci tonin and we will make further recommendations. Sandro Walsh MD cc: [id number] TT: 12/17/2016 15:47:16 Confirmation # [id number] Dictation # [id number] [place]
[2016-12-17 17:21] VITALS: RESP 18; BMI 25.2
[2016-12-17] MEDS: Metoprolol Succinate 25 mg XL Tab PO SCH (17:22)
[2016-12-17] MEDS: Oxycodone/Acetaminophen 5/325 mg Tab PO PRN (21:04)
[2016-12-18] MEDS: Pantoprazole 40 mg EC Tab PO SCH (09:22)
--- NOTE | 2016-12-18 09:58 | PN ---
DATE: 12/18/2016 The patient is in bed, in no acute distress, nontoxic, no fevers and chills. PHYSICAL EXAMINATION: VITAL SIGNS: Temperature is 98, blood pressure is 150/78. HEENT: Unremarkable. NECK: Supple. LUNGS: Have decreased breath sounds. HEART: Normal S1, S2. ABDOMEN: Soft, nontender, no organomegaly, no rebound, no guarding, no masses. LABORATORY EXAMINATION: Reveals a white count of 9.9, hemoglobin of 10, platelets of 166. Chemistri es are noted and BUN of 32, creatinine of 4.4. Microbiology is noted. The blood cultures are negati ve. The patient had a CAT scan of the head, which is noted. Review of orders reveals the patient to be on p.o. doxycycline. ASSESSMENT AND PLAN: A 56-year-old female with history of Dan's esophagitis, history of hyperten mariela, history of hyperlipidemia, history of chronic renal failure on hemodialysis, peptic ulcer disea se, high cholesterol, anemia, who was admitted with a diagnosis of pneumonia and a history of chronic pain and small brain aneurysm. Admitted with acute systolic congestive heart failure. I doubt bact erial healthcare-associated pneumonia versus bacteremia. Negative blood cultures. The patient has h ad a laparoscopic cholecystectomy, was given a dose of vancomycin. Currently on p.o. doxycycline. C ultures negative and we will follow closely with you and check on the procalcitonin level, which is p ending. Sandro Walsh MD cc: [id number] TT: 12/18/2016 09:57:47 Confirmation # [id number] Dictation # [id number] en
[2016-12-18 11:36] LABS: ADD MANUAL DIFF? NO
[2016-12-18 11:40] LABS: BASO # 0.03 K/mm3 (0.0-2.0); BASO % 0.3 % (0.0-3.0); EOS # 0.3 (0.0-0.7); EOS % 2.9 % (1.5-5.0); GRAN # 7.62 (1.4-6.5); GRAN % 82.5 % (50.0-68.0); HEMATOCRIT 32.7 % (36.0-48.0); LYMPH % 11.3 % (22.0-35.0); MEAN CELL VOLUME 91.3 fL (80.0-105.0); MEAN CORPUSCULAR HEMOGLOBIN 29.1 pg (25.0-35.0); MEAN CORPUSCULAR HGB CONC 31.8 g/dl (31.0-37.0); MEAN PLATELET VOLUME 9.1 fl (7.0-11.0); MONO # 0.3 (0.1-0.6); PLATELET COUNT 130 10^3/uL (120.0-450.0); RED CELL DISTRIBUTION WIDTH 17.3 % (11.5-14.5); WHITE BLOOD COUNT 9.2 10^3/ul (4.5-11.0)
--- NOTE | 2016-12-18 11:52 | PN ---
DATE: 12/18/2016 HISTORY OF PRESENT ILLNESS: The patient is a 56-year-old female admitted to the hospital with fever and shaking chills. She has difficulty in swallowing. Denies any chest pain. No shortness of breath. She has end-stage renal disease , on hemodialysis. She was diagnosed with acute pharyngitis, admitted for that. She is currently on IV antibiotic. She also has peptic ulcer disease. Blood work showed anemia on admission. Denies any complaints today. ASSESSMENT: Hypertension, end-stage renal disease, peptic ulcer disease, status post left hip replacement. PAST SURGICAL HISTORY: Cholecystectomy, pericardial window, history of left hip replacement. ALLERGIES: MULTIPLE DRUG ALLERGIES, ASPIRIN, CIPRO, CITRUS FRUIT, ENALAPRIL, HEPARIN, PENICILLIN, SULFA, LEVOTHYROXINE, CODEINE, ENOXAPARIN, INFLUENZA VACCINE. CURRENT MEDICATIONS: Lipitor 80 mg daily, Sensipar 30 mg p.o. daily, doxycycline 100 mg p.o. q. 12, Cozaar 12.5 mg daily, metoprolol 25 mg daily, Lopressor 50 mg daily, Percocet 1 tablet q. 6 hours p.r.n., Protonix 40 mg daily , Renagel 800 mg p.o. t.i.d. LABORATORIES: White count 9.9, hemoglobin 10.7, , MCV 92, platelet count 166, granulocytes 70%, lymphocytes 19%, monocytes 5.6%. Coags: PT 11.3, INR 1.05, PTT 25. Sodium 138, potassium 3.9, chloride 92, carbon dioxide 36, creatinine 4.4. BNP 19,000. PHYSICAL EXAMINATION: GENERAL: Comfortable in chair, no acute distress. VITAL SIGNS: Temperature is 95.9, respiratory rate 26 per minute, blood pressure 150/80, pulse oximetry 100 . HEENT: Normal oral mucosa, pallor positive. NECK: No lymphadenopathy. CHEST: Air entry present, equal bilateral. Crepitations at the bases. CARDIOVASCULAR: S1, S2 normal. No murmur, no gallop. ABDOMEN: Soft, nontender, no hepatosplenomegaly. EXTREMITIES: No edema. LYMPHADENOPATHY: None. PSYCHIATRIC: Alert, oriented x 3. NEUROLOGIC: No sensorimotor deficit. SPINE: Nontender. ASSESSMENT: 1. End-stage renal disease, on hemodialysis. 2. Fever. 3. Acute pharyngitis. 4. Dan's esophagus. 5. Anemia. 6. Peptic ulcer disease. 7. Hyperlipidemia. PLAN: She received a dose of vancomycin. Currently on p.o. doxycycline. dysphagia improved. Cultures have been negative. Continue metoprolol 25 mg daily, Lopressor 50 mg daily. Continue Percocet p.r.n., Renagel 800 mg p.o. b.i.d. We will continue hemodialysis. Lipitor 80 mg daily. We will continue to monitor blood closely. Blood cultures have been negative. Baretts esophagus , follows with GI. anemia - multifactorial- ESRD, chronic disease. iron studies , B12, folate level. Might need BLUE for CKD. Chelsy Dominguez MD cc: [id number] TT: 12/18/2016 11:51:10 Confirmation # [id number] Dictation # [id number] en MTDD
[2016-12-18] MEDS: Metoprolol Succinate 25 mg XL Tab PO SCH (16:52)
[2016-12-18] MEDS: Oxycodone/Acetaminophen 5/325 mg Tab PO PRN (17:06)
[2016-12-18 19:30] VITALS: O2SAT 98
[2016-12-19] MEDS: Oxycodone/Acetaminophen 5/325 mg Tab PO PRN (01:20)
[2016-12-19 07:50] VITALS: PULSE 62; TEMP 98.3
[2016-12-19] MEDS: Pantoprazole 40 mg EC Tab PO SCH (10:25)
[2016-12-19 14:08] LABS: ADD MANUAL DIFF? NO
[2016-12-19 14:11] LABS: BASO # 0.05 K/mm3 (0.0-2.0); BASO % 0.6 % (0.0-3.0); EOS # 0.4 (0.0-0.7); EOS % 4.5 % (1.5-5.0); GRAN # 5.35 (1.4-6.5); GRAN % 69.2 % (50.0-68.0); HEMATOCRIT 31.7 % (36.0-48.0); LYMPH # 1.5 (1.2-3.4); LYMPH % 19.8 % (22.0-35.0); MEAN CELL VOLUME 89.5 fL (80.0-105.0); MEAN CORPUSCULAR HEMOGLOBIN 29.1 pg (25.0-35.0); MEAN CORPUSCULAR HGB CONC 32.5 g/dl (31.0-37.0); MEAN PLATELET VOLUME 9.7 fl (7.0-11.0); MONO # 0.5 (0.1-0.6); MONO % 5.9 % (1.0-6.0); PLATELET COUNT 112 10^3/uL (120.0-450.0); WHITE BLOOD COUNT 7.7 10^3/ul (4.5-11.0)
[2016-12-19 14:20] LABS: ALB/GLOB RATIO 1.2 (1.1-1.8); BILIRUBIN,TOTAL 1.7 mg/dL (0.2-1.3); CALCIUM 8.7 mg/dL (8.4-10.5); MAGNESIUM 1.8 mg/dL (1.7-2.2); PHOSPHOROUS 6.7 mg/dL (2.5-4.5); TOTAL PROTEIN 6.3 g/dL (5.8-8.3)
[2016-12-19 14:27] LABS: POTASSIUM 5.5 mmol/L (3.6-5.0)
--- NOTE | 2016-12-19 17:28 | CON ---
DATE: 12/19/2016 REASON FOR CONSULTATION: Need for dialysis, pneumonia. HISTORY OF PRESENTING ILLNESS: A 56-year-old lady known to me from outpatient hemodialysis, aranza mclain to the Emergency Room on Monday with complaints of sore throat, difficulty swallowing, enlarged l eft lymph nodes(?). She denies any cough at the time of admission. She denied any fever, chills. S he denied any shortness of breath. In the Emergency Room, she was found to have a temperature of 99. 2, blood pressure of 171/82. Chest x-ray showed right basilar atelectasis versus pneumonia. PAST MEDICAL AND SURGICAL HISTORY: Hypertension, CAD, PTCA and stent, ESRD, recurrent pneumonia, C. diff colitis, left hip replacement, peptic ulcer disease, anemia of chronic kidney disease, pericardi al effusion, pericardial window, cholecystectomy. FAMILY HISTORY: Noncontributory. SOCIAL HISTORY: Smoker, no alcohol use, no IV drug abuse. ALLERGIES: ASPIRIN, CIPRO, CITRUS, ENALAPRIL, HEPARIN, LATEX, PENICILLIN, SULFA, SYNTHROID, TYLENOL, CODEINE, ENOXAPARIN, IODINE, FLU VACCINE. REVIEW OF SYSTEMS: All systems are reviewed, pertinent positives as mentioned in history of presenti ng illness, rest unremarkable. PHYSICAL EXAMINATION: GENERAL: Middle aged lady lying in bed in mild respiratory distress. VITAL SIGNS: Blood pressure 142/75, heart rate 62, respiratory rate 18, temperature 98.3. HEENT: Normocephalic, atraumatic, positive pallor. NECK: Supple, no JVD. LUNGS: Bilateral equal air entry, crackles left base. CARDIAC: S1, S2, regular rate and rhythm, no murmur, no rub. ABDOMEN: Soft, nondistended, nontender. Bowel sounds present. EXTREMITIES: No lower extremity edema. LABORATORY DATA: WBC 7.7, hemoglobin 10, hematocrit 32, platelets 112. Sodium 133, potassium 5.5, c hloride 93, CO2 of 29, BUN 67, creatinine 8.7, glucose 127, calcium 8.7, phosphorus 6.7, albumin 3.5, total bilirubin 1.7. ASSESSMENT: 1. Left lower lobe pneumonia. 2. Decompensated congestive heart failure. 3. Hyperkalemia. 4. Recurrent infections. 5. Coronary artery disease. 6. End-stage renal disease. PLAN: 1. Urgent dialysis. 2. Workup for hypocomplementemia(?). 3. Empiric antibiotics as per infectious disease recommendations. 4. Continue phosphate binders. 5. Continue antihypertensives. Mansi Rose MD cc: [phone] TT: 12/19/2016 17:27:45 Confirmation # [id number] Dictation # [id number] ln
[2016-12-19] MEDS: Metoprolol Succinate 25 mg XL Tab PO SCH (17:55)
[2016-12-19 17:59] VITALS: BP 135/81
--- NOTE | 2016-12-19 19:06 | DS ---
The patient is 56 years old, seen and examined. She states neck swelling is much better. She is abl e to swallow now. No nausea or vomiting, no diarrhea, no fever, no chills. PHYSICAL EXAMINATION: VITAL SIGNS: She is afebrile, pulse 62, respirations 18, blood pressure 142/75. LUNGS: Bilateral fair airflow, no rhonchi or crackle. HEART: S1, S2 audible. No murmur. ABDOMEN: Soft, nontender, no rebound, no guarding. NEUROLOGIC: The patient is awake and alert, communicative, ambulatory. LABORATORY EXAM: WBC 7.7, hemoglobin 10.3, hematocrit 31.7, platelet 112. Chemistry: Sodium 133, p otassium 5.5, chloride 93, CO2 of 29, BUN 67, creatinine 8.7, blood sugar of 127. Prolactin is 19. Procalcitonin is 0.57. ASSESSMENT AND PLAN: 1. Febrile illness with lymph node enlargement, etiology still unclear. 2. End-stage renal disease, on hemodialysis. 3. Hyperlipidemia. 4. Peptic ulcer disease. 5. Status post cholecystectomy. PLAN: The patient is improving clinically. She is asymptomatic. She will be discharged today after dialysis and she will be given doxycycline 100 twice a day for 5 more days. Shawn Gomez MD cc: [phone] TT: 12/19/2016 19:05:47 juan
--- NOTE | 2016-12-19 19:57 | CP.PCM.PN ---
Subjective - Date & Time of Evaluation Date of Evaluation: 12/19/16 Time of Evaluation: 10:00 - Subjective Subjective: Comfortable in bed, not in distress, no fevers, breathing much better. Objective - Vital Signs/Intake and Output Vital Signs (last 24 hours): Temp Pulse Resp BP Pulse Ox 98.3 F 62 18 135/81 98 12/19/16 07:49 12/19/16 07:49 12/19/16 07:49 12/19/16 17:55 12/19/16 07:49 - Labs Labs: 12/19/16 14:06 12/19/16 14:06 PT 11.3 Seconds (9.9-11.8) 12/17/16 03:30 INR 1.05 (0.93-1.08) 12/17/16 03:30 APTT 25.9 Seconds (23.7-30.8) 12/17/16 03:30 - Constitutional Appears: Non-toxic, No Acute Distress - Head Exam Head Exam: NORMAL INSPECTION - ENT Exam ENT Exam: Mucous Membranes Moist - Neck Exam Neck Exam: absent: Lymphadenopathy, Meningismus - Respiratory Exam Respiratory Exam: Decreased Breath Sounds - Cardiovascular Exam Cardiovascular Exam: +S1, +S2 - GI/Abdominal Exam GI & Abdominal Exam: Soft. absent: Tenderness Assessment and Plan - Assessment and Plan (Free Text) Plan: Assessment Probable atypical pneumonia, clinically improving HTN dysipidemia ESRD on HD Peptic ulcer disease chronic pain syndrome small brain aneurysm Plan continue Doxycycline day 2 to complete 4-7 days of therapy
--- NOTE | 2016-12-21 10:51 | PQF GENQUE ---
12/21/16 Dr. Gomez, Please clarify principal diagnosis. Your discharge summary documents febrile illness. Other notes document acute CHF and/or pneumonia. Please indicate whether any or all of these diagnoses should be coded and which diagnosis is the principal diagnosis. Thank you. Clarification of your documentation is requested to better reflect the severity of illness and intensity of treatment of your patient. Indicators present [] Specify: x fluid overload] [] Specify: ] [] Specify: [] [] Specify: [] Location in the medical record that reflects the above clinical findings: [] Treatment Provided: [] PHYSICIAN'S RESPONSE Based on your medical judgment of the clinical indicators outlined above please clarify the following: [] Practitioner response [x] If unable to determine, please check the box, sign and date. Present On Admission (POA) Indicator: [] Present at the time of admission [] Not present at the time of admission [] Clinically Undetermined In responding to this query, please exercise your independent professional judgment. The fact that a question is asked does not imply that any particular answer is desired or expected. Thank you for your clarification on this documentation. If you have any questions please call:[ ] * Thank you, [ ] box strapper MESFIN
== END 2016-12-19 19:28 | disposition home or self-care (01) | DRG 640 ==
LOC: ED 02:02 → ERH 06:15 → 5RSO 08:01
PROVIDERS: ADMIT Internal Medicine; ATTEND Internal Medicine
DX: E87.70 Fluid overload, unspecified (principal); N18.6 End stage renal disease; I13.2 Hypertensive heart and chronic kidney disease with heart failure and with stage 5 chronic kidney disease, or end stage renal disease; I67.1 Cerebral aneurysm, nonruptured; K86.1 Other chronic pancreatitis; J44.0 Chronic obstructive pulmonary disease with (acute) lower respiratory infection; R13.10 Dysphagia, unspecified; R50.9 Fever, unspecified; E87.5 Hyperkalemia; D32.9 Benign neoplasm of meninges, unspecified; E78.5 Hyperlipidemia, unspecified; D63.1 Anemia in chronic kidney disease; E78.00 Pure hypercholesterolemia, unspecified; F17.200 Nicotine dependence, unspecified, uncomplicated; G89.4 Chronic pain syndrome; H91.90 Unspecified hearing loss, unspecified ear; I25.10 Atherosclerotic heart disease of native coronary artery without angina pectoris; K21.9 Gastro-esophageal reflux disease without esophagitis; K22.70 Barrett's esophagus without dysplasia; K27.9 Peptic ulcer, site unspecified, unspecified as acute or chronic, without hemorrhage or perforation; Z79.899 Other long term (current) drug therapy; Z87.01 Personal history of pneumonia (recurrent); Z87.11 Personal history of peptic ulcer disease; Z90.49 Acquired absence of other specified parts of digestive tract; Z95.5 Presence of coronary angioplasty implant and graft; Z96.642 Presence of left artificial hip joint; Z99.2 Dependence on renal dialysis; Z88.6 Allergy status to analgesic agent; Z88.1 Allergy status to other antibiotic agents; Z91.040 Latex allergy status; Z88.5 Allergy status to narcotic agent; Z88.0 Allergy status to penicillin; Z88.2 Allergy status to sulfonamides; Z88.7 Allergy status to serum and vaccine; Z88.8 Allergy status to other drugs, medicaments and biological substances; Z87.892 Personal history of anaphylaxis; Z91.018 Allergy to other foods; R51 Headache; J02.9 Acute pharyngitis, unspecified; R59.9 Enlarged lymph nodes, unspecified; R01.1 Cardiac murmur, unspecified; R40.2412 Glasgow coma scale score 13-15, at arrival to emergency department

== ENCOUNTER 2017-01-08 23:51 | Emergency (ER) | payer MEDICARE, BC ==
[2017-01-09 00:06] VITALS: BMI 25.0
[2017-01-09 00:08] VITALS: BP 147/79; PULSE 81; RESP 18; TEMP 98.1; O2SAT 98
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
[2017-01-09] MEDS ORDERED: Morphine 2 mg/ml ISec IVP STA (00:44)
[2017-01-09] MEDS ORDERED: Sodium Chloride 0.9% 500 ML IV STA (00:44)
[2017-01-09 01:17] LABS: ADD MANUAL DIFF? NO
[2017-01-09 01:21] LABS: BASO # 0.04 K/mm3 (0.0-2.0); BASO % 0.6 % (0.0-3.0); EOS # 0.2 (0.0-0.7); EOS % 2.8 % (1.5-5.0); GRAN # 4.29 (1.4-6.5); GRAN % 63.6 % (50.0-68.0); HEMATOCRIT 28.9 % (36.0-48.0); LYMPH # 1.7 (1.2-3.4); LYMPH % 25.6 % (22.0-35.0); MEAN CELL VOLUME 88.7 fL (80.0-105.0); MEAN CORPUSCULAR HEMOGLOBIN 29.1 pg (25.0-35.0); MEAN CORPUSCULAR HGB CONC 32.9 g/dl (31.0-37.0); MEAN PLATELET VOLUME 9.5 fl (7.0-11.0); MONO # 0.5 (0.1-0.6); MONO % 7.4 % (1.0-6.0); PLATELET COUNT 160 10^3/uL (120.0-450.0); RED CELL DISTRIBUTION WIDTH 17.6 % (11.5-14.5); WHITE BLOOD COUNT 6.8 10^3/ul (4.5-11.0)
[2017-01-09 01:37] LABS: ALB/GLOB RATIO 1.4 (1.1-1.8); BILIRUBIN,TOTAL 1.1 mg/dL (0.2-1.3); CALCIUM 8.3 mg/dL (8.4-10.5); TOTAL PROTEIN 6.2 g/dL (5.8-8.3)
== END 2017-01-09 02:48 | disposition home or self-care (01) ==
LOC: ED 23:51
DX: K29.70 Gastritis, unspecified, without bleeding (principal)
CPT/HCPCS: 80053; 83690; 85025; 87040; 96374; 96375; 99283; C9113; J2270; J2405; J7040

== ENCOUNTER 2017-01-22 22:44 | Observation (INO) | payer MEDICARE, BC ==
[2017-01-22 22:46] VITALS: BMI 25.0
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
[2017-01-22] MEDS ORDERED: Morphine 2 mg/ml ISec IVP STA (23:26)
[2017-01-23 00:05] LABS: HEMATOCRIT 32.6 % (36.0-48.0); MEAN CELL VOLUME 90.8 fL (80.0-105.0); MEAN CORPUSCULAR HGB CONC 31.9 g/dl (31.0-37.0); MEAN PLATELET VOLUME 9.7 fl (7.0-11.0); RED CELL DISTRIBUTION WIDTH 17.1 % (11.5-14.5); WHITE BLOOD COUNT 7.9 10^3/ul (4.5-11.0)
[2017-01-23 00:14] LABS: ALB/GLOB RATIO 1.4 (1.1-1.8); BILIRUBIN,TOTAL 1.8 mg/dL (0.2-1.3); CALCIUM 8.4 mg/dL (8.4-10.5); POTASSIUM 4.9 mmol/L (3.6-5.0); TOTAL PROTEIN 6.6 g/dL (5.8-8.3)
[2017-01-23 10:59] LABS: ADD MANUAL DIFF? NO
[2017-01-23 11:11] LABS: BASO # 0.07 K/mm3 (0.0-2.0); BASO % 1.1 % (0.0-3.0); EOS # 0.2 (0.0-0.7); EOS % 2.4 % (1.5-5.0); GRAN # 3.96 (1.4-6.5); GRAN % 64.1 % (50.0-68.0); LYMPH # 1.5 (1.2-3.4); LYMPH % 24.3 % (22.0-35.0); MEAN CELL VOLUME 89.9 fL (80.0-105.0); MEAN CORPUSCULAR HEMOGLOBIN 28.7 pg (25.0-35.0); MEAN CORPUSCULAR HGB CONC 31.9 g/dl (31.0-37.0); MEAN PLATELET VOLUME 9.3 fl (7.0-11.0); MONO # 0.5 (0.1-0.6); MONO % 8.1 % (1.0-6.0); PLATELET COUNT 124 10^3/uL (120.0-450.0); WHITE BLOOD COUNT 6.2 10^3/ul (4.5-11.0)
[2017-01-23 11:35] LABS: ALB/GLOB RATIO 1.4 (1.1-1.8); BILIRUBIN,TOTAL 1.6 mg/dL (0.2-1.3); CALCIUM 8.4 mg/dL (8.4-10.5); MAGNESIUM 2.1 mg/dL (1.7-2.2); PHOSPHOROUS 5.4 mg/dL (2.5-4.5); POTASSIUM 4.9 mmol/L (3.6-5.0); TOTAL PROTEIN 6.1 g/dL (5.8-8.3)
[2017-01-23] MEDS ORDERED: Non Formulary Medication (Rosuvastatin Calcium [Crestor] 20 MG) PO SCH (12:00)
--- NOTE | 2017-01-23 12:32 | HP ---
HISTORY OF PRESENT ILLNESS: The patient is 56 years old, seen and examined. Complained of generaliz ed weakness. Complained of right lower quadrant and right middle quadrant discomfort. Complained of having multiple bowel movements. She states the pain is episodic, did not see blood in the stool, a nd this has been going on intermittently for the last few months. I would check since she had cholec ystectomy done. She was diagnosed with stool for C. diff earlier this year. She was treated and fel t better for some time. She also complained of generalized weakness, difficulty walking. PAST MEDICAL HISTORY: Significant for: 1. End-stage renal disease, on hemodialysis. 2. Status post cholecystectomy. 3. Chronic anemia. 4. Peptic ulcer disease. 5. Status post left hip replacement. ALLERGIES: MULTIPLE ALLERGIES INCLUDIN. ASPIRIN. 2. CIPRO. 3. CITRUS FOOD. 4. ENALAPRIL. 5. HEPARIN. 6. LATEX. 7. PENICILLIN. 8. SULFA. 9. LEVOTHYROXINE. 10. ACETAMINOPHEN. 11. CODEINE. 12. LOVENOX. 13. IODINE. 14. INFLUENZA VIRUS VACCINE. MEDICATIONS AT HOME: She is on Renvela. She is on Crestor 10 mg daily, metoprolol 25 daily, Nexium 40 mg daily, and Sensipar 30 mg daily. REVIEW OF SYSTEMS: Significant for abdominal discomfort, more so on the right lower quadrant. Denie s any nausea or vomiting. Complaining of generalized weakness. Complained of bilateral leg pain. PHYSICAL EXAMINATION: GENERAL: She is sleepy, but arousable. VITAL SIGNS: She is afebrile, pulse 82, respirations 20, blood pressure 142/82. LUNGS: Bilateral fair airflow. No rhonchi or crackle. HEART: S1, S2 audible. ABDOMEN: Soft, nontender. Slight right lower quadrant palpable discomfort. No rebound, no guarding . NEUROLOGIC: She is awake and alert, communicative, has generalized weakness only. PLAN: I will order stool for C. We will resume her usual medication including Protonix, Renagel, me toprolol, Crestor, losartan, and Dr. Rosado has been consulted. We will monitor her closely and re evaluate in the a.m. and make disposition and discharge plan. Shawn Gomez MD cc: [phone] TT: 01/23/2017 12:31:43 jn
[2017-01-23] MEDS: Pantoprazole 40 mg EC Tab PO SCH (13:30)
--- NOTE | 2017-01-23 13:51 | CON ---
DATE: 01/23/2017 REFERRING PHYSICIAN: Dr. Gomez REASON FOR CONSULTATION: To provide dialysis services for a patient admitted with nausea and vomiting, diarrhea, headache and increased weakness of 3 days' duration. HISTORY OF PRESENT ILLNESS: The patient is a 56-year-old female with a history of end-stage renal disease on chronic outpatient dialysis. The patient dialyzes at [facility]. The patient states over the last 3 days she has had progressive weakness associated with nausea, vomiting, diarrhea and headaches. The patient has had multiple similar admissions for these complaints. The patient is due for dialysis today. Laboratory work done in the Emergency Room showed a white blood cell count which was normal, hemoglobin of 10.2. Chemistries showed a sodium of 131 with a potassium of 4.9. The patient is currently being seen on dialysis. PAST MEDICAL HISTORY: Significant for: 1. End-stage renal disease on chronic maintenance dialysis Monday, Monday, Monday at [facility], last dialysis prior to today was on Monday as per her schedule. 2. History of ASHD status post PTCA stent. 3. Hypertension, ESRD, recurrent pneumonia with a history of C. diff colitis, history of left hip replacement, history of peptic ulcer disease and reflux, history of chronic pancreatitis, history of anemia of chronic kidney disease, history of pericardial effusion status post pericardial window, history of gallbladder disease status post cholecystectomy. MEDICATIONS AT HOME: Include that of Renagel, Crestor, Protonix, Lopressor, losartan, Nexium, Doryx, and Sensipar. ALLERGIES: THE PATIENT IS ALLERGIC TO ASPIRIN, CIPROFLOXIN, CITRUS AND DERIVATIVES, ENALAPRIL, HEPARIN, LATEX, PENICILLIN, SULFA, LEVOXYL, TYLENOL, CODEINE, ENOXAPARIN, IODINE, INFLUENZA VACCINE. MEDICATIONS PRESENTLY IN HOSPITAL: Include that of Cozaar, Lipitor, Lopressor, Protonix, Renagel, and Sensipar. SOCIAL HISTORY: The patient is a cigarette smoker. She smokes less than a half -pack per day. She does not use alcohol. No history of IV drug abuse. FAMILY HISTORY: Noncontributory and as per all charts. REVIEW OF SYSTEMS: Ten plus systems reviewed with patient. No positive findings other than what is noted above and unchanged from her previous encounters. PHYSICAL EXAMINATION: GENERAL: The patient is currently seen on dialysis. She appears to be tolerating well. VITAL SIGNS: Blood pressure is 147/76. We are ultrafiltrating 1500 mL. Heart rate is 82, respiratory rate is 20. Temperature 97.5. HEENT: Shows her to be normocephalic, atraumatic. Conjunctivae are pale. Sclerae are nonicteric. Posterior pharynx is normal. Pupils equal and reactive to light and accommodation. Extraocular muscles are intact. NECK: Supple, no neck vein distention. No thyromegaly, no lymphadenopathy, no bruits. CHEST: Clear to auscultation and percussion. No rales, no rhonchi, no wheezing. CARDIOVASCULAR: Shows an S1, S2 which are normal. No audible murmurs. No rubs or gallops. ABDOMEN: Soft. Nondistended, nontender. Bowel sounds are normal. No rebound , no guarding, no masses. EXTREMITIES: Show no lower extremity edema. No cyanosis, no clubbing. Distal lower extremity pulses are 1-2+ bilateral. LABORATORY DATA AND IMAGING: CBC: White blood cell count 6.2, hemoglobin 10.2 with a platelet count of 124,000. Chemistries show a BUN of 49 with a creatinine of 8.4, potassium 4.9, sodium of 131 with a chloride of 89, CO2 is 28. Calcium 8.4, phosphorus 5.4. Bilirubin 1.6. Liver enzymes are normal, alkaline phosphatase 383 with an albumin level of 3.6, lipase is normal. ASSESSMENT: 1. End-stage renal disease. The patient will receive her routine hemodialysis Monday, Monday, Monday. 2. Nausea, vomiting, diarrhea. Past history of Clostridium difficile colitis. If diarrhea persists, full analysis of stool should be sent. The patient has had multiple recurrent emergency room visits and admissions for nausea. She has responded in the past to Zofran. She continues on antiemetic therapy. 3. History of arteriosclerotic heart disease, currently stable. 4. History of peptic ulcer disease and reflux. The patient may, from my standpoint, be started back and continue on proton pump inhibition therapy. 5. History of secondary hyperparathyroidism. Continue binder therapy. Continue Sensipar and a renal diet. 6. History of pericardial effusion with pericardial window, stable. PLAN: 1. Continue routine dialysis Monday, Monday, Monday. 2. GI evaluation with Dr. Rosado for nausea, vomiting and diarrhea. 2. Continue Aranesp per protocol for her anemia. 3. Continue binder therapy. Her phosphorus level was slightly elevated at 5.4. 4. Continue pain medication for her chronic headaches. Thank you for letting me partake and share in the care of our mutual patient. Deon Mathews MD cc: [phone] TT: 01/23/2017 13:50:07 Confirmation # [id number] Dictation # [id number] sn MTDD
--- NOTE | 2017-01-23 18:38 | CP.PCM.CON ---
History of Present Illness - History of Present Illness History of Present Illness: Seen and examined in dialysis this afternoon, chart was reviewed. Request for consult is for Nausea, Diarrhea HPI: This is a 56 year old female known to our practice, she has a history or ESRD on dialysis, chronic anemia, chronic pancreatitis, GERD, comes to the ER with complaints of generalized weakness, diffuse right quaderant pain and diarrhea. The diarrhea is intermittently, no blood noted. She denies any contributing factors. Diarrhea and pain occur at anytime. She did hav erecent EGD and colon in September 2016, found to have colon polyps that was hyperplastic and chronic gastritis. Does notice weight loss. PMH: ESRD, on dialysis, hypertension, GERD, chronic pancreatitis, pericardial effusions/p pericardial window,chronic anemia, bronchitis, brain aneurysm, h/o colon polyps, h/o c diff PSH: pericardial window, choleycytectomy, x2, cardiac cath 2013, T&A, had EGD/EUS with Dr. Erazo in [place] FHX: noncontributory at this time Social Hx: (+) smoker, denies ETOH, no drugs Allergies: multiple allergies: aspirin, ciprofloxacin, citrus, heparin, enalapril, latex, codeine, lovenox,influenza vaccine MEDs: reviewed as per OCT ROS: Systems reviewed with positive findings, see HPI Past Patient History Past Patient History - Infectious Disease Hx of Infectious Diseases: None - Tetanus Immunizations Tetanus Immunization: Up to Date - Past Social History Smoking Status: Light Smoker < 10 Cigarettes Daily - CARDIAC Hx Cardiac Disorders: Yes Hx Congestive Heart Failure: Yes Hx Heart Murmur: Yes - PULMONARY Hx Respiratory Disorders: Yes (SMOKED CIGARETTES 1/2 PPD QUIT 2013) Hx Pneumonia: Yes - NEUROLOGICAL Hx Neurological Disorder: Yes Other/Comment: SMALL BRAIN ANEURYSM - HEENT Hx HEENT Problems: Yes (torn retina left eye) Other/Comment: can't see center of anything due to torn retina left eye since 1979, no sX - RENAL Hx Chronic Kidney Disease: Yes Hx Dialysis: Yes - ENDOCRINE/METABOLIC Hx Endocrine Disorders: No - HEMATOLOGICAL/ONCOLOGICAL Hx Blood Disorders: Yes Hx Anemia: Yes (BT) - INTEGUMENTARY Hx Dermatological Problems: No - MUSCULOSKELETAL/RHEUMATOLOGICAL Hx Musculoskeletal Disorders: Yes Hx Falls: Yes Other/Comment: congenital hip defect - GASTROINTESTINAL Hx Gastrointestinal Disorders: Yes (barretts esophagus) Hx Gall Bladder Disease: Yes Hx Gastroesophageal Reflux: Yes Other/Comment: abdominal pain - GENITOURINARY/GYNECOLOGICAL Hx Genitourinary Disorders: No - PSYCHIATRIC Hx Psychophysiologic Disorder: No Hx Substance Use: No - SURGICAL HISTORY Hx Cardiac Catheterization: Yes (04/04/14) Hx Cholecystectomy: Yes (lap dyllan) Hx Orthopedic Surgery: Yes (hip dislocation) Other/Comment: pericardial window, pericardiocenthesis 2014, c sections x2, T&A , fistulagram - ANESTHESIA Hx Anesthesia: Yes Hx Anesthesia Reactions: No Hx Malignant Hyperthermia: No Meds Allergies/Adverse Reactions: Allergies Allergy/AdvReac Type Severity Reaction Status Date / Time aspirin Allergy Severe ANAPHYLAXIS Verified 01/22/17 23:28 ciprofloxacin Allergy Severe ANAPHYLAXIS Verified 01/22/17 23:28 Maverick And Derivatives Allergy Severe ANAPHYLAXIS Verified 01/22/17 23:28 enalapril Allergy Severe HIVES Verified 01/22/17 23:28 heparin Allergy Severe ANAPHYLAXIS Verified 01/22/17 23:28 latex Allergy Severe ANAPHYLAXIS Verified 01/22/17 23:28 Penicillins Allergy Severe ANAPHYLAXIS Verified 01/22/17 23:28 Sulfa (Sulfonamide Allergy Severe ANAPHYLAXIS Verified 01/22/17 23:28 Antibiotics) levothyroxine sodium Allergy Intermediate RASH Verified 01/22/17 23:28 [From Levoxyl] acetaminophen Allergy Mild RASH Verified 01/22/17 23:28 codeine Allergy Mild RASH Verified 01/22/17 23:28 enoxaparin Allergy Mild RASH Verified 01/22/17 23:28 iodine Allergy Mild RASH Verified 01/22/17 23:28 influenza virus vaccine, Allergy hives Verified 01/22/17 23:28 specific - Medications Medications: Current Medications Atorvastatin Calcium (Lipitor) 80 mg PO DIN [facility] Cinacalcet (Sensipar) 30 mg PO DIN [facility] Losartan Potassium (Cozaar) 12.5 mg PO DAILY [facility] Last Admin: 01/23/17 15:14 Dose: 12.5 mg Metoprolol Tartrate (Lopressor) 50 mg PO BID [facility] Last Admin: 01/23/17 15:13 Dose: 50 mg Pantoprazole Sodium (Protonix Ec Tab) 40 mg PO ACB [facility] Last Admin: 01/23/17 13:30 Dose: Not Given Sevelamer HCl (Renagel) 800 mg PO TID [facility] Last Admin: 01/23/17 15:15 Dose: 800 mg Physical Exam - Constitutional Appears: No Acute Distress - Head Exam Head Exam: NORMAL INSPECTION - Eye Exam Eye Exam: Normal appearance, PERRL Additional comments: no icterus - ENT Exam ENT Exam: Mucous Membranes Moist - Neck Exam Neck exam: Positive for: Normal Inspection - Respiratory Exam Respiratory Exam: Clear to Auscultation Bilateral, NORMAL BREATHING PATTERN (no respiratory distress) - Cardiovascular Exam Cardiovascular Exam: +S1, +S2 - GI/Abdominal Exam GI & Abdominal Exam: Normal Bowel Sounds, Soft, Tenderness (right quaderant, no rebound or guarding) - Extremities Exam Extremities exam: Positive for: normal inspection, pedal pulses present - Neurological Exam Neurological exam: Alert, Oriented x3 - Skin Skin Exam: Dry, Warm Results - Vital Signs Recent Vital Signs: Last Vital Signs Temp 98.5 F 01/23/17 16:00 Pulse 95 H 01/23/17 16:00 Resp 20 01/23/17 16:00 BP 169/87 H 01/23/17 16:00 Pulse Ox 92 L 01/23/17 16:00 - Labs Result Diagrams: 01/23/17 10:30 01/23/17 10:30 Labs: Laboratory Results - last 24 hr 01/23/17 01/23/17 10:30 10:30 WBC 6.2 D RBC 3.56 Hgb 10.2 L Hct 32.0 L MCV 89.9 MCH 28.7 MCHC 31.9 RDW 17.0 H Plt Count 124 MPV 9.3 Gran % 64.1 Lymph % (Auto) 24.3 [place] % (Auto) 8.1 H Eos % (Auto) 2.4 Baso % (Auto) 1.1 Gran # 3.96 Lymph # 1.5 [place] # 0.5 Eos # 0.2 Baso # 0.07 Sodium 131 L Potassium 4.9 Chloride 89 L Carbon Dioxide 28 Anion Gap 19 BUN 49 H Creatinine 8.4 H* Est GFR ( Amer) 6 Est GFR (Non-Af Amer) 5 Random Glucose 109 Calcium 8.4 Phosphorus 5.4 H Magnesium 2.1 Total Bilirubin 1.6 H AST 39 ALT 36 Alkaline Phosphatase 353 H Total Protein 6.1 Albumin 3.6 Globulin 2.5 Albumin/Globulin Ratio 1.4 Assessment & Plan - Assessment and Plan (Free Text) Assessment: ASSESSMENT: Right sided Abdominal Pain, ? hepatic congestion, low EF 30-35 % Nausea Diarrhea h/o Cdiff, differential carcinoid tumor Hepatomegaly ESRD on dialysis HTN h/o chronic pancreatitis PLAN: recheck chromogranin A level recheck serum seratatonin request stool cdiff continue Protonix 40 mg daily continue diet as tolerated, on renal diet consider octreotide scan Thank you for this consult and for allowing us to participate in your patient care, will make further recommendation based upon clinical course Seen and discussed with Dr. Rosado.
--- NOTE | 2017-01-23 20:26 | PN ---
DATE: 01/23/2017 ADDENDUM This is an addendum to the GI consultation report dictated by Jennifer Barron APN. This patient has rodrigo or problems of pain in the right upper quadrant area, which has been chronic, thought to be secondary to the hepatic condition. The patient did have an echocardiogram during her last admission in and the patient's right ventricular systolic pressure was 64. The patient did have a significant severe tricuspid regurgitation. The patient also found to have some mild pulmonary regurg. The pat ient had nonocclusive . The patient was found to have a cardiomyopathy. The other issue is chr onic diarrhea. The patient had endoscopy, colonoscopy, small bowel biopsies done. There are nondiag nostic. The patient had a stool for C. difficile done and the last time was positive. RECOMMENDATIONS: Would recommend: 1. Repeat serum chromogranin levels. 2. Would consider outpatient octreotide scan. 3. Consider trial of octreotide after the blood test. Thank you very much for allowing us to participate in the care of the patient. Jesus Manuel Rosado MD cc: [phone] TT: 01/23/2017 20:26:03 Confirmation # [id number] Dictation # [id number] dn
[2017-01-23] MEDS: HYDROmorphone 1 mg/ml ISec IVP PRN (21:46)
--- NOTE | 2017-01-24 00:12 | CARD ---
APPROVED REPORT EKG Measurement Heart [id number] <Conclusion> Normal sinus rhythm Possible Left atrial enlargement Left ventricular hypertrophy ST & T wave abnormality, consider lateral ischemia Prolonged QT Abnormal ECG
[2017-01-24] MEDS: HYDROmorphone 1 mg/ml ISec IVP PRN ×3 (04:45→21:43)
[2017-01-24 08:11] VITALS: RESP 20
[2017-01-24] MEDS: Pantoprazole 40 mg EC Tab PO SCH (10:26)
--- NOTE | 2017-01-24 13:00 | DS ---
ADDENDUM I had a long discussion with Dr. Rosado. His plan is to do octreotide scan and he will give 1 dose of octreotide and he will repeat her serum chromogranin level since it was high on the last visit an d she will be given trial of Questran and there is also consideration for her right upper quadrant pa in could be secondary to hepatic congestion because she has high right ventricular systolic pressure. For that, she probably is going to need cardiac catheterization to exactly measure right and left v entricular pressures to start her on vasodilator. I will discuss with Dr. Mccullough for that. That can b e done later on to address that issue. Shawn Gomez MD cc: [phone] TT: 01/24/2017 12:59:15 en
--- NOTE | 2017-01-24 14:52 | PN ---
DATE: 01/24/2017 SUBJECTIVE: The patient is currently seen on 5R. Her son is in the room. She is still complaining of mild abdominal pain, nausea, vomiting, a less intense headache. She had an uneventful dialysis ye sterday. MEDICATIONS: List reviewed. The patient is currently on losartan, Dilaudid p.r.n., Lipitor, Lopress or, Protonix, Renagel, Sensipar, and Zofran p.r.n. OBJECTIVE: INTAKE AND OUTPUT: Intake 1380, output dialysis. VITAL SIGNS: Blood pressure 137/75, temperature 98.5, pulse of 68, respiratory rate of 20, pulse ox 98%. HEENT: Shows her to be normocephalic, atraumatic. Conjunctivae are pale. Sclerae are nonicteric. NECK: Supple, no neck vein distention. CHEST: Clear to auscultation and percussion. No rales, no rhonchi, no wheezing. CARDIOVASCULAR: Shows a normal S1, S2, no audible murmurs. No rubs or gallops. ABDOMEN: Soft. Mild right upper quadrant discomfort on palpation. No rebound, no guarding, no mass es. EXTREMITIES: Show a working fistula of her left upper extremity. Positive thrill, positive bruit. No lower extremity cyanosis, clubbing or edema. LABORATORY DATA AND IMAGING: Labs predialysis yesterday, CBC: White blood cell count 6.2, hemoglobi n 10.2 with a platelet count of 124,000. Chemistries show sodium 131, potassium 4.9, BUN 49 with a c reatinine of 8.4, calcium 8.4, phosphorus 5.4. Bilirubin 1.6, alkaline phosphatase 353, albumin leve l was 3.6. ASSESSMENT: 1. Recurrent bouts of headaches, abdominal pain, nausea and vomiting. The patient appears to be mor e stable than when she was admitted. The patient had been seen by GI and further outpatient workup i s in progress. Her symptoms appear to be stable, though they are not completely resolved. 2. End-stage renal disease. The patient will continue dialysis Monday, Monday, Monday. She is s cheduled for dialysis tomorrow. 3. History of arteriosclerotic heart disease, currently stable. 4. History of peptic ulcer disease and reflux, currently stable. The patient continues on proton pu mp inhibition therapy. 5. History of secondary hyperparathyroidism. If patient is not discharged later today, will recheck her laboratory work with dialysis tomorrow. This will include a phosphorus level. For right now, p atient will continue binder therapy, Sensipar and a renal diet. 6. Past history of pericardial effusion with a pericardial window, stable. PLAN: 1. Management here as per GI. 2. Hemodialysis Monday, Monday, Monday. 3. Discharge planning with medication to be given orally at home for nausea, vomiting and headaches. Deon Mathews MD cc: [phone] TT: 01/24/2017 14:52:07 Confirmation # [id number] Dictation # [id number] en
--- NOTE | 2017-01-24 16:05 | PN ---
DATE: 01/24/2017 SUBJECTIVE: Seen and examined at the bedside earlier this afternoon. The patient, according to nurs ing staff, had 2 episodes of diarrhea last night. The patient states that she had a few this morning . Nausea is slightly better. She is able to keep down her food and still has the right-sided abdomi nal pain. She does not appear to be in any acute distress. No reports of any bleeding. VITAL SIGNS: Temperature is 98.5, blood pressure is 137/75, pulse 68, respirations 20, and 98% on ro om air. LABORATORY DATA: No new labs are noted for today. PHYSICAL EXAMINATION: HEENT: Sclerae nonicteric. NECK: Supple. CARDIAC: S1, S2. LUNGS: Decreased breath sounds, but good air entry. No rales or wheeze. ABDOMEN: With bowel sounds, soft. Some mild tenderness in the right side, right quadrant. No rebou nd or guarding. Stool for Clostridium difficile is negative for antigen and toxin. ASSESSMENT: Right-sided abdominal pain, nausea, and recurrent diarrhea. The patient does have a his tory of Clostridium difficile. No recent antibiotic use. Her stool for Clostridium difficile on thi s admission is negative. Rule out any carcinoid tumors, hepatomegaly, end-stage renal disease on mireille lysis, hypertension, and history of chronic pancreatitis and history of cholecystectomy. PLAN: Follow up chromogranin A level and serum serotonin. Consider treatment injection of octreotid e and consider Questran. Continue the diet as tolerated. She is on Dilaudid for pain and on PPI. M onitor the electrolytes. Zofran p.r.n. nausea. Discussed with the patient the plan. The patient wa s seen and discussed with Dr. Rosado. Jennifer Tobines CONCEPCION cc: [phone] TT: 01/24/2017 16:04:20 Confirmation # [id number] Dictation # [id number] kyleigh
--- NOTE | 2017-01-24 18:32 | PN ---
DATE: 01/24/2017 SUBJECTIVE: This patient was seen and evaluated earlier. The patient still has episodes of diarrhea . Still complains of discomfort in the right upper quadrant area. On examination she has a mild ten derness in the right upper quadrant area. There is no rebound. I did discuss with Dr. Gomez regarding this patient. The likely cause of the chronic right upper q uadrant discomfort could be due to hepatic congestion. The patient does have increased right side pr essure. Her RSVP was 64. Last echo report was reviewed. The patient does have significant tricuspi d regurgitation. Hepatic congestion could also be probably contributing to this chronic pain. The p atient had multiple endoscopic evaluations and imaging studies done. The etiology for the diarrhea i s unclear. The patient did have a C. diff in the past. History of colonoscopy and biopsies were neg ative for inflammatory bowel disease. IBD serology was negative. The patient does have elevated chr omogranin levels with a normal serotonin. We requested for repeat chromogranin levels to be checked. Will also give a dose of octreotide after the blood is taken. We also arranged for octreotide scan . Thank you very much for allowing us to participate in the care of the patient. Jesus Manuel Rosado MD cc: [phone] TT: 01/24/2017 18:31:28 Confirmation # [id number] Dictation # [id number] deon
[2017-01-25] MEDS: HYDROmorphone 1 mg/ml ISec IVP PRN ×2 (01:21→05:26)
--- NOTE | 2017-01-25 07:08 | DS ---
The patient is a 56-year-old seen and examined, complained of bilateral leg weakness and pain and als o complained of still having diarrhea with right upper quadrant discomfort. No nausea. PHYSICAL EXAMINATION: VITAL SIGNS: She is afebrile, pulse 60, respirations 20, blood pressure 137/75. LUNGS: Bilateral fair airflow, no rhonchi or crackle. HEART: S1, S2 audible. ABDOMEN: Soft and nontender, no rebound, no guarding. NEUROLOGIC: The patient is awake and alert, communicative. EXTREMITIES: Bilateral leg, no edema. LABORATORY EXAM: WBC 6.2, hemoglobin 10.2, hematocrit 32.0, platelet 124. Chemistry: Sodium 131, p otassium 4.9, chloride 89, CO2 of 28, BUN 49, creatinine 8.4, blood sugar 109, total bilirubin 1.6. ASSESSMENT: 1. Diarrhea, etiology still unclear. Awaiting for stool for Clostridium difficile. Could be second susan to diarrhea. Differential could be related . Will do diarrhea workup and also will r fady Rosado to and evaluated the patient and neurologist to reevaluate the patient's bilatera l leg weakness. 2. End-stage renal disease, on hemodialysis. 2. Peptic ulcer disease. PLAN: Once the patient's stool for C. diff is negative, we might try her on cholestyramine and do ar terial scan as an outpatient. Shawn Gomez MD cc: [phone] TT: 01/25/2017 07:08:04 tn
[2017-01-25] MEDS: Pantoprazole 40 mg EC Tab PO SCH (10:23)
[2017-01-25 11:55] LABS: HEMATOCRIT 32.9 % (36.0-48.0); MEAN CELL VOLUME 92.2 fL (80.0-105.0); MEAN CORPUSCULAR HEMOGLOBIN 28.9 pg (25.0-35.0); MEAN CORPUSCULAR HGB CONC 31.3 g/dl (31.0-37.0); MEAN PLATELET VOLUME 9.6 fl (7.0-11.0); RED CELL DISTRIBUTION WIDTH 17.3 % (11.5-14.5); WHITE BLOOD COUNT 7.1 10^3/ul (4.5-11.0)
[2017-01-25 12:05] LABS: ALB/GLOB RATIO 1.5 (1.1-1.8); BILIRUBIN,TOTAL 1.8 mg/dL (0.2-1.3); CALCIUM 7.7 mg/dL (8.4-10.5); PHOSPHOROUS 5.5 mg/dL (2.5-4.5); POTASSIUM 4.6 mmol/L (3.6-5.0); TOTAL PROTEIN 5.9 g/dL (5.8-8.3)
--- NOTE | 2017-01-25 13:50 | PN ---
DATE: 01/25/2017 SUBJECTIVE: The patient is currently seen in dialysis. We are taking off 1500 mL of fluid. Her vital signs are stable. She is complaining of less headache pain, less nausea, no vomiting. MEDICATIONS: Medication list reviewed. The patient is currently on Benadryl, losartan, Dilaudid p.r.n., Lipitor, Lopressor, Protonix, Renagel, Sensipar, and Zofran p.r.n. She is off Sandostatin. OBJECTIVE: INTAKE AND OUTPUT: Intake 1140, output 0. VITAL SIGNS: Blood pressure 124/79, heart rate 75, temperature 98.4, respiratory rate 20. HEENT: Normocephalic, atraumatic. Conjunctivae are pale. Sclerae are nonicteric. NECK: Supple, no neck vein distention. CHEST: Clear to auscultation and percussion. No rales, no rhonchi, no wheezing. CARDIOVASCULAR: Shows a regular S1, S2. No audible murmurs. No rubs or gallops. ABDOMEN: Soft. Bowel sounds are normal. She has only mild right upper quadrant discomfort on palpation. EXTREMITIES: Show a cannulated left upper extremity AV fistula. No lower extremity cyanosis, clubbing or edema. LABORATORY DATA AND IMAGING: Predialysis labs from today are pending. ASSESSMENT: Recurrent headaches with abdominal pain, nausea and vomiting. The patient appears to be making slow progress. She has been seen by GI. Workup is in progress and will likely continue as an outpatient workup. The patient states she is requiring less medication for pain and less medication to prevent nausea. End-stage renal disease. The patient will continue Monday, Monday, Monday dialysis. History of arteriosclerotic heart disease, currently stable. History of peptic ulcer disease and gastroesophageal reflux disease, currently stable. The patient will continue proton pump inhibition therapy as per GI. History of secondary hyperparathyroidism. The patient will continue Sensipar, Renagel and a renal diet. Past history of pericardial effusion with pericardial window, all stable. PLAN: Continue Monday, Monday, Monday dialysis. Management as per GI. Try and decrease patient's dependency on antiemetics and pain medication. Octreoscan for carcinoid tumor ordered by GI; it is pending. Discharge planning post scan. Deon Mathews MD cc: [id number] TT: 01/25/2017 12:23:54 Confirmation # [id number] Dictation # [id number] deon TOURE
--- NOTE | 2017-01-25 15:30 | PN ---
DATE: 01/25/2017 Seen and examined at the bedside earlier this afternoon. The patient was given octreotide injection yesterday which she seems to have tolerated well. She has had no further episodes of diarrhea. Her nausea has improved and she is tolerating her oral intake so far. She still has the right upper quad rant pain, but there is no increase in intensity. She is waiting to go to dialysis. No acute overni ght events reported. VITAL SIGNS: Temperature is 98.4, blood pressure 124/79, pulse 75, respirations 20, 95 on room air. LABORATORY DATA: WBC 7.1, H and H are hemoglobin 10.3 and hematocrit 32.9, platelets are 98. Sodium is 131, K 4.6, BUN 35, creatinine is 7.1. Total bilirubin is 1.8, AST 67, ALT 49, alk phos is 299. PHYSICAL EXAMINATION: HEENT: Sclerae are anicteric. NECK: Supple. CARDIAC: S1, S2. LUNGS: Decreased breath sounds at the bases, but good air entry. No rales or wheeze. ABDOMEN: With bowel sounds. Soft. She does have some tenderness in the right upper quadrant, but n o rebound, guarding, or organomegaly. EXTREMITIES: No edema. NEUROLOGIC: Awake, alert, and oriented. ASSESSMENT: This is a 56-year-old female with a history of end-stage renal disease, on dialysis, wit h recurrent right-sided abdominal pain, nausea and diarrhea. The patient did have a history of Clost ridium difficile. No recent antibiotic use. The patient has history of elevated chromogranin A leve ls with normal serotonin, rule out any carcinoid tumors. Awaiting repeat labs. Also, she has histor y of chronic pancreatitis and cholecystectomy. PLAN: The patient tolerated the octreotide injection. Awaiting for the chromogranin A, serotonin le dori and vasoactive intestinal polypeptide test, and discussed with her regarding octreotide scan. Sp tila with Dr. Gomez as well. There will be some coordination as to when the patient will have this done which will require dialysis after testing. [facility] Continue PPI, and patient can follow up in our outpatient office. This was discussed with Dr. Rosado who is covering rounds. Jennifer JAVIER cc: [id number] TT: 01/25/2017 15:30:09 Confirmation # [id number] Dictation # [id number] mn
[2017-01-25 16:37] VITALS: BP 160/76; PULSE 71; TEMP 97.7; O2SAT 94
--- NOTE | 2017-01-25 20:23 | CON ---
DATE: 01/25/2017 HISTORY OF PRESENT ILLNESS: This is a 56-year-old female with end-stage renal disease on dialysis. The patient came to the hospital with progressive weakness, nausea, vomiting, diarrhea and headache. The patient was due to have dialysis today, felt better and also she says after dialysis, she develo ps a headache all over the head. Called to evaluate the patient. PAST MEDICAL HISTORY: End-stage renal disease on dialysis, atherosclerotic heart disease, hypertensi on, recurrent pneumonia, peptic ulcer disease and anemia of chronic disease, chronic pancreatitis, hi story of gallbladder, status post cholecystectomy. HOME MEDICATIONS: Crestor, Protonix, Lopressor, losartan, Nexium. ALLERGIES: ASPIRIN, CIPROFLOXACIN CITRUS DERIVATIVES, ENALAPRIL, PENICILLIN, SULFA, LEVOXYL, TYLENOL , AND CODEINE. SOCIAL HISTORY: The patient smokes, does not drink. PHYSICAL EXAMINATION: HEENT: Normocephalic, atraumatic. NECK: Supple. NEUROLOGIC: Alert, awake, oriented x 3. No aphasia. Cranial nerves II through XII were tested. Pu pils reactive. EOM intact. Visual jacinto full. No facial asymmetry. Tongue midline. Motor examin ation: Moves all the extremities equally. Tone normal. Deep tendon reflexes 1+. Both plantars are downgoing. Sensory appears intact. Cerebellar, gait normal. IMPRESSION: Peripheral neuropathy, possibly secondary to end-stage renal disease. The patient needs rehab physical therapy for gait training. Dago Joe MD cc: [id number] TT: 01/25/2017 20:22:24 Confirmation # [id number] Dictation # [id number] [place]
--- NOTE | 2017-01-25 21:08 | DS ---
The patient is 56 years old, seen and examined. She states she did not have any bowel movement since she had injection yesterday. She was given 100 mcg, 1 dose, by Dr. Rosado. However, she do es complain of right upper quadrant pain. She was able to tolerate food. PHYSICAL EXAMINATION: VITAL SIGNS: She is afebrile, pulse 71, respirations 20, blood pressure 116/76. LUNGS: Bilateral fair airflow, no rhonchi or crackle. HEART: S1, S2 audible. ABDOMEN: Soft, nontender, no rebound, no guarding. NEUROLOGIC: She is awake and alert, able to communicate. Moves all extremities. LABORATORY EXAM: Sodium 131, potassium 4.6, chloride 91, CO2 of 24, BUN 35, creatinine , blood sugar of 123. ASSESSMENT AND PLAN: Intermittent diarrhea, etiology still unclear, we are working on rule out secre tory diarrhea. The patient had one documented level of chromogranin level that needs to be repeated. I discussed with Dr. Rosado. The plan is to discharge the patient today. 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 That can be d one as outpatient. For the time being, she will be given Questran. She can have a pack twice a day. Stool for C. diff is negative. We will advise the patient to follow up with Dr. Mccullough to evaluate f or her pulmonary hypertension and possible right and left heart catheterization. Right upper quadran t pain could be because of hepatic congestion because of her high right ventricular and systolic pres sure. She will be discharged on her usual medication and will follow up as outpatient with Dr. Shane griffin in a week or two. Shawn Gomez MD cc: [phone] TT: 01/25/2017 21:07:58 deon
--- NOTE | 2017-01-25 22:22 | PN ---
DATE: 01/25/2017 The patient was seen and evaluated earlier. The patient did receive a dose of sandostatin, which sig nificantly improved her symptoms. We are still waiting for chromogranin A levels. Then, the patient will be scheduled for octreotide scan. The importance of these tests and followup has been clearly explained to the patient and also the patient's boyfriend at the request of the patient to him also. They are fully aware of followup recommendations. Thank you and we will continue to closely follow up her care and suggest further management based on the clinical course. Jesus Manuel Rosado MD cc: [id number] TT: 01/25/2017 22:21:55 Confirmation # [id number] Dictation # [id number] ln
== END 2017-01-25 20:28 | disposition home or self-care (01) ==
LOC: ED 22:44 → ERH 01-23 04:29 → 5RSO 01-23 07:12
PROVIDERS: ADMIT Internal Medicine; ATTEND Internal Medicine
DX: R10.11 Right upper quadrant pain (principal); R11.2 Nausea with vomiting, unspecified; R19.7 Diarrhea, unspecified; R53.1 Weakness; N18.6 End stage renal disease; I12.0 Hypertensive chronic kidney disease with stage 5 chronic kidney disease or end stage renal disease; K76.1 Chronic passive congestion of liver; I25.10 Atherosclerotic heart disease of native coronary artery without angina pectoris; D63.1 Anemia in chronic kidney disease; K21.9 Gastro-esophageal reflux disease without esophagitis; F17.210 Nicotine dependence, cigarettes, uncomplicated; G62.9 Polyneuropathy, unspecified; K86.1 Other chronic pancreatitis; R16.0 Hepatomegaly, not elsewhere classified; N25.81 Secondary hyperparathyroidism of renal origin; I07.1 Rheumatic tricuspid insufficiency; K27.9 Peptic ulcer, site unspecified, unspecified as acute or chronic, without hemorrhage or perforation; I27.2 Other secondary pulmonary hypertension; Z99.2 Dependence on renal dialysis; Z87.01 Personal history of pneumonia (recurrent); Z96.642 Presence of left artificial hip joint; Z95.5 Presence of coronary angioplasty implant and graft; Z86.010 Personal history of colon polyps; Z88.0 Allergy status to penicillin; Z88.2 Allergy status to sulfonamides; Z88.6 Allergy status to analgesic agent; Z91.040 Latex allergy status
CPT/HCPCS: 36415; 80053; 83690; 83735; 84100; 84260; 84586; 85025; 85027; 86316; 87324; 93005; 96372; 96374; 96375; 96376; 97116; 97161; 99285; C9113; G0378; G8978; G8979; J1170; J2270; J2354; J2405

== ENCOUNTER 2017-01-27 01:51 | Emergency (ER) | payer MEDICARE, BC ==
[2017-01-27 02:05] VITALS: BMI 25.2
--- NOTE | 2017-01-27 02:24 | ED PDOC ---
Arrival/HPI - General Historian: Patient - History of Present Illness Time/Duration: Prior to Arrival Symptom Onset: Sudden Symptom Course: Unchanged Context: Home <Alicia Wheat - Last Filed: 01/27/17 02:46> <TylersusuLuis - Last Filed: 01/27/17 03:18> - General Time Seen by Provider: 01/27/17 02:02 - History of Present Illness Narrative History of Present Illness (Text): 01/27/17 02:20 56 yo female with PMH of ESRD on HD(m,w,f), PUD presents to emergency department with bilateral lower leg pain. Patient states that pain started a few hours before admission. Patient reports pain is chronic and has had previous episodes. She was scheduled for outpatient Doppler of bilateral legs but did not go. She denies any trauma. Patient denies fever, chills, chest pain , shortness of breath on exertion, abd pain. PMD: Dr. Gomez (Alicia Wheat) Past Medical History - Provider Review Nursing Documentation Reviewed: Yes - Past History Past History: Non-Contributing - Infectious Disease Hx of Infectious Diseases: None - Tetanus Immunization Tetanus Immunization: Up to Date - Cardiac Hx Cardiac Disorders: Yes Hx Congestive Heart Failure: Yes Hx Hypertension: Yes - Pulmonary Hx Chronic Obstructive Pulmonary Disease (COPD): Yes - Neurological Hx Neurological Disorder: Yes Other/Comment: SMALL BRAIN ANEURYSM - HEENT Hx HEENT Disorder: Yes (torn retina left eye) Other/Comment: can't see center of anything due to torn retina left eye since 1979, no sX - Renal Type of Dialysis Access: L AV shunt Hx Renal Failure: Yes - Endocrine/Metabolic Hx Endocrine Disorders: No - Hematological/Oncological Hx Blood Disorders: Yes Hx Anemia: Yes (BT) - Integumentary Hx Dermatological Disorder: No - Musculoskeletal/Rheumatological Hx Musculoskeletal Disorders: Yes Hx Falls: Yes Other/Comment: congenital hip defect - Gastrointestinal Hx Gastrointestinal Disorders: Yes (barretts esophagus) Hx Gall Bladder Disease: Yes Hx Gastroesophageal Reflux: Yes Other/Comment: abdominal pain - Genitourinary/Gynecological Hx Genitourinary Disorders: No - Psychiatric Hx Psychophysiologic Disorder: No Hx Substance Use: No - Surgical History Hx Cardiac Catheterization: Yes (04/04/14) Hx Cholecystectomy: Yes (lap dyllan) Hx Orthopedic Surgery: Yes (hip dislocation) Other/Comment: pericardial window, pericardiocenthesis 2014, c sections x2, T&A , fistulagram - Anesthesia Hx Anesthesia: Yes Hx Anesthesia Reactions: No Hx Malignant Hyperthermia: No - Suicidal Assessment Feels Threatened In Home Enviroment: No <JarretDebbieAlicia - Last Filed: 01/27/17 02:46> Family/Social History - Physician Review Nursing Documentation Reviewed: Yes Family/Social History: No Known Family HX Smoking Status: Light Smoker < 10 Cigarettes Daily Hx Alcohol Use: No Hx Substance Use: No Hx Substance Use Treatment: No <Jarret,Alicia - Last Filed: 01/27/17 02:46> Allergies/Home Meds <Jarret,Alicia - Last Filed: 01/27/17 02:46> <Luis Solano - Last Filed: 01/27/17 03:18> Allergies/Adverse Reactions: Allergies aspirin Allergy (Severe, Verified 01/22/17 23:28) ANAPHYLAXIS ciprofloxacin Allergy (Severe, Verified 01/22/17 23:28) ANAPHYLAXIS [place] And Derivatives Allergy (Severe, Verified 01/22/17 23:28) ANAPHYLAXIS enalapril Allergy (Severe, Verified 01/22/17 23:28) HIVES heparin Allergy (Severe, Verified 01/22/17 23:28) ANAPHYLAXIS latex Allergy (Severe, Verified 01/22/17 23:28) ANAPHYLAXIS Penicillins Allergy (Severe, Verified 01/22/17 23:28) ANAPHYLAXIS Sulfa (Sulfonamide Antibiotics) Allergy (Severe, Verified 01/22/17 23:28) ANAPHYLAXIS levothyroxine sodium [From Levoxyl] Allergy (Intermediate, Verified 01/22/17 23: 28) RASH acetaminophen Allergy (Mild, Verified 01/22/17 23:28) RASH codeine Allergy (Mild, Verified 01/22/17 23:28) RASH enoxaparin Allergy (Mild, Verified 01/22/17 23:28) RASH iodine Allergy (Mild, Verified 01/22/17 23:28) RASH influenza virus vaccine, specific Allergy (Verified 01/22/17 23:28) hives Home Medications: Home Meds Medication Instructions Recorded Confirmed Cinacalcet [Sensipar] 30 mg PO DIN 02/05/14 12/17/16 Esomeprazole Magnesium [Nexium] 40 mg PO DAILY 02/05/14 12/17/16 Rosuvastatin Calcium [Crestor] 20 mg PO DAILY 02/05/14 12/17/16 Review of Systems - Review of Systems Constitutional: Normal. absent: Fatigue, Fevers Eyes: Normal. absent: Vision Changes ENT: Normal. absent: Sore Throat, Rhinorrhea, Sinus Congestion Respiratory: Normal. absent: SOB, Cough Cardiovascular: Normal. absent: Chest Pain, Palpitations, Edema Gastrointestinal: Normal. absent: Abdominal Pain, Constipation, Diarrhea, Nausea, Vomiting Genitourinary Female: Normal. absent: Dysuria, Frequency, Hematuria Musculoskeletal: Normal, Myalgias. absent: Back Pain, Neck Pain Skin: Normal. absent: Rash, Pruritis Neurological: Normal. absent: Headache, Dizziness Endocrine: Normal. absent: Diaphoresis Hemo/Lymphatic: Normal. absent: Easy Bleeding, Easy Bruising Psychiatric: Normal <JarretDebbieAlicia - Last Filed: 01/27/17 02:46> Physical Exam - Systems Exam Head: Present: Atraumatic, Normocephalic Pupils: Present: PERRL Extroacular Muscles: Present: EOMI Conjunctiva: Present: Normal Mouth: Present: Moist Mucous Membranes Neck: Present: Normal Range of Motion Respiratory/Chest: Present: Clear to Auscultation, Good Air Exchange. No: Respiratory Distress, Accessory Muscle Use, Wheezes, Rales, Rhonchi, Tachypneic Cardiovascular: Present: Regular Rate and Rhythm, Normal S1, S2. No: Murmurs, Tachycardic, Bradycardic Abdomen: Present: Normal Bowel Sounds. No: Tenderness, Distention, Peritoneal Signs Back: Present: Normal Inspection Upper Extremity: Present: Normal Inspection. No: Cyanosis, Edema Lower Extremity: Present: Normal Inspection, NORMAL PULSES, Other (bilateral lower extremities are symmetrical, patient is ambulating at baseline. ). No: Edema, Swelling, Erythema, Deformity Neurological: Present: GCS=15, CN II-XII Intact, Speech Normal, Motor Func Grossly Intact Skin: Present: Warm, Dry, Normal Color. No: Rashes, Diaphoretic Psychiatric: Present: Alert, Oriented x 3, Normal Insight, Normal Concentration <JarretAlicia lubin - Last Filed: 01/27/17 02:46> - Systems Exam Lower Extremity: Present: Other. No: Tenderness <Zelikson,Luis - Last Filed: 01/27/17 03:18> Vital Signs Temp Pulse Resp BP Pulse Ox 01/27/17 01:51 98.0 F 66 18 138/71 99 Medical Decision Making <Alicia Wheat - Last Filed: 01/27/17 02:46> <Luis Solano - Last Filed: 01/27/17 03:18> ED Course and Treatment: 01/27/17 02:29 Impression: 56 yo female with PMH of ESRD on HD(m,w,f), PUD presents to emergency department with bilateral lower leg pain. plan: -Patient report previous episodes of chronic pain in bilateral legs. She is instructed to go to hemodialysis this morning and complete outpatient doppler studies. Patient is to follow up with PMD in 1-2 days. (Alicia Wheat) 01/27/17 03:12 Patient seen and examined with resident Came up with treatment and disposition plan with resident (Luis Solano) Disposition/Present on Arrival - Present on Arrival Any Indicators Present on Arrival: No History of DVT/PE: No History of Uncontrolled Diabetes: No Urinary Catheter: No History of Decub. Ulcer: No History Surgical Site Infection Following: None - Disposition Have Diagnosis and Disposition been Completed?: Yes Disposition Time: 02:20 Patient Plan: Discharge <Alicia Wheat - Last Filed: 01/27/17 02:46> <Luis Solano - Last Filed: 01/27/17 03:18> - Disposition Diagnosis: Myalgia Disposition: HOME/ ROUTINE Condition: FAIR Discharge Instructions (ExitCare): Musculoskeletal Pain (ED) Additional Instructions: Jacqui Kraus, thank you for letting us take care of you today. Your provider was Dr. Wheat and Dr. Solano. You were treated for myalgia. The emergency medical care you received today was directed at your acute symptoms. If you were prescribed any medication, please fill it and take as directed. It may take several days for your symptoms to resolve. Return to the Emergency Department if your symptoms worsen, do not improve, or if you have any other problems. Please contact your doctor or call one of the physicians/clinics you have been referred to that are listed on the Patient Visit Information form that is included in your discharge packet. Bring any paperwork you were given at discharge with you along with any medications you are taking to your follow up visit. Our treatment cannot replace ongoing medical care by a primary care provider (PCP) outside of the emergency department. Thank you for allowing the [facility] team to be part of your care today.
[2017-01-27 02:29] VITALS: BP 138/71; PULSE 66; RESP 18; TEMP 98; O2SAT 99
== END 2017-01-27 02:34 | disposition home or self-care (01) ==
LOC: ED 01:51
DX: M79.1 Myalgia (principal); I12.0 Hypertensive chronic kidney disease with stage 5 chronic kidney disease or end stage renal disease; N18.6 End stage renal disease; Z99.2 Dependence on renal dialysis

== ENCOUNTER 2017-02-09 01:20 | Inpatient (IN) | payer MEDICARE, BC ==
[2017-02-09 01:31] VITALS: BMI 27.9
--- NOTE | 2017-02-09 01:50 | ED PDOC ---
Arrival/HPI - General Chief Complaint: Shortness Of Breath Time Seen by Provider: 02/09/17 01:23 Historian: Patient - History of Present Illness Narrative History of Present Illness (Text): 02/09/17 01:41 Jacqui Kraus is a 56 year old female smoker, whose past medical history includes ESRD on hemodialysis (Monday/Monday/Monday), hypertension, COPD, and chronic anemia, who presents to the emergency department complaining of shortness of breath since yesterday. She reports associated chest tightness and notes she had nebulizer treatments at home but denies any relief. Patient was fully dialyzed yesterday and denies any headaches, vomiting, back pain, neck pain, back pain, or other complaints. PMD: Dr. Gomez Time/Duration: 24 hours Symptom Onset: Gradual Symptom Course: Unchanged Quality: Tightness Severity Level: Mild Activities at Onset: Rest Modifying Factors (Text): None Context: Home Associated Symptoms (Text): No improvement after home treatment Past Medical History - Provider Review Nursing Documentation Reviewed: Yes - Past History Past History: Non-Contributing - Infectious Disease Hx of Infectious Diseases: None - Tetanus Immunization Tetanus Immunization: Up to Date - Cardiac Hx Cardiac Disorders: Yes Hx Congestive Heart Failure: Yes Hx Hypertension: Yes - Pulmonary Hx Chronic Obstructive Pulmonary Disease (COPD): Yes - Neurological Hx Neurological Disorder: Yes Other/Comment: SMALL BRAIN ANEURYSM - HEENT Hx HEENT Disorder: Yes (torn retina left eye) Other/Comment: can't see center of anything due to torn retina left eye since 1979, no sX - Renal Hx Renal Failure: Yes - Endocrine/Metabolic Hx Endocrine Disorders: No - Hematological/Oncological Hx Blood Disorders: Yes Hx Anemia: Yes (BT) - Integumentary Hx Dermatological Disorder: No - Musculoskeletal/Rheumatological Hx Musculoskeletal Disorders: Yes Hx Falls: Yes Other/Comment: congenital hip defect - Gastrointestinal Hx Gastrointestinal Disorders: Yes (barretts esophagus) Hx Gall Bladder Disease: Yes Hx Gastroesophageal Reflux: Yes Other/Comment: abdominal pain - Genitourinary/Gynecological Hx Genitourinary Disorders: No - Psychiatric Hx Psychophysiologic Disorder: No Hx Substance Use: No - Surgical History Hx Cardiac Catheterization: Yes (04/04/14) Hx Cholecystectomy: Yes (lap dyllan) Hx Orthopedic Surgery: Yes (hip dislocation) Other/Comment: pericardial window, pericardiocenthesis 2014, c sections x2, T&A , fistulagram - Anesthesia Hx Anesthesia: Yes Hx Anesthesia Reactions: No Hx Malignant Hyperthermia: No - Suicidal Assessment Feels Threatened In Home Enviroment: No Family/Social History - Physician Review Nursing Documentation Reviewed: Yes Family/Social History: Unknown Family HX Smoking Status: Light Smoker < 10 Cigarettes Daily Hx Alcohol Use: No Hx Substance Use: No Hx Substance Use Treatment: No Allergies/Home Meds Allergies/Adverse Reactions: Allergies aspirin Allergy (Severe, Verified 02/09/17 01:34) ANAPHYLAXIS ciprofloxacin Allergy (Severe, Verified 02/09/17 01:34) ANAPHYLAXIS [place] And Derivatives Allergy (Severe, Verified 02/09/17 01:34) ANAPHYLAXIS enalapril Allergy (Severe, Verified 02/09/17 01:34) HIVES heparin Allergy (Severe, Verified 02/09/17 01:34) ANAPHYLAXIS latex Allergy (Severe, Verified 02/09/17 01:34) ANAPHYLAXIS Penicillins Allergy (Severe, Verified 02/09/17 01:34) ANAPHYLAXIS Sulfa (Sulfonamide Antibiotics) Allergy (Severe, Verified 02/09/17 01:34) ANAPHYLAXIS levothyroxine sodium [From Levoxyl] Allergy (Intermediate, Verified 02/09/17 01: 34) RASH acetaminophen Allergy (Mild, Verified 02/09/17 01:34) RASH codeine Allergy (Mild, Verified 02/09/17 01:34) RASH enoxaparin Allergy (Mild, Verified 02/09/17 01:34) RASH iodine Allergy (Mild, Verified 02/09/17 01:34) RASH influenza virus vaccine, specific Allergy (Verified 02/09/17 01:34) hives Home Medications: Home Meds Medication Instructions Recorded Confirmed Cinacalcet [Sensipar] 30 mg PO DIN 02/05/14 02/09/17 Rosuvastatin Calcium [Crestor] 20 mg PO DAILY 02/05/14 02/09/17 Esomeprazole Magnesium [Nexium] 40 mg PO DAILY 02/09/17 02/09/17 Levocetirizine Dihydrochloride 5 mg PO DAILY 02/09/17 02/09/17 Metoprolol Tartrate [Lopressor] 25 mg PO BID 02/09/17 02/09/17 Sevelamer Carbonate [Renvela] 800 mg PO TID 02/09/17 02/09/17 Review of Systems - Review of Systems Constitutional: Normal. absent: Fevers Eyes: Normal ENT: Normal Respiratory: SOB Cardiovascular: Chest Pain Gastrointestinal: Normal. absent: Abdominal Pain, Diarrhea Genitourinary Female: Normal Musculoskeletal: Normal Skin: Normal Neurological: Normal. absent: Headache Endocrine: Normal Hemo/Lymphatic: Normal Psychiatric: Normal Physical Exam Vital Signs Reviewed: Yes Vital Signs Temp Pulse Resp BP Pulse Ox 02/09/17 04:15 90 19 95 02/09/17 04:12 98.6 F 93 H 20 145/73 02/09/17 03:42 97.9 F 91 H 17 164/88 H 99 02/09/17 03:37 98.6 F 93 H 20 145/74 100 02/09/17 02:10 22 98 02/09/17 02:09 81 02/09/17 01:35 98.6 F 85 22 98 02/09/17 01:34 83 22 142/78 98 Temperature: Afebrile Blood Pressure: Normal Pulse: Regular Respiratory Rate: Normal Appearance: Positive for: Well-Appearing, Non-Toxic, Comfortable Pain Distress: None Mental Status: Positive for: Alert and Oriented X 3 - Systems Exam Head: Present: Atraumatic, Normocephalic Pupils: Present: PERRL Extroacular Muscles: Present: EOMI Conjunctiva: Present: Normal Ears: Present: Normal Mouth: Present: Moist Mucous Membranes Pharnyx: Present: Normal. No: ERYTHEMA, EXUDATE, TONSILS ENLARGED, Peritonsilar Swelling, Uvular Deviation, Muffled/Hoarse Voice, Strider, Soft Palate/Uvular Edema Nose (External): Present: Atraumatic Nose (Internal): Present: Normal Inspection Neck: Present: Normal Range of Motion Respiratory/Chest: Present: Wheezes. No: Respiratory Distress, Accessory Muscle Use Cardiovascular: Present: Regular Rate and Rhythm, Normal S1, S2. No: Murmurs Abdomen: Present: Normal Bowel Sounds. No: Tenderness, Distention, Peritoneal Signs Upper Extremity: Present: Normal Inspection. No: Cyanosis, Edema Lower Extremity: Present: Normal Inspection. No: Edema Neurological: Present: GCS=15, CN II-XII Intact, Speech Normal Skin: Present: Warm, Dry, Normal Color. No: Rashes Psychiatric: Present: Alert, Oriented x 3, Normal Insight, Normal Concentration Medical Decision Making ED Course and Treatment: 02/09/17 01:41 Impression: 56 year old complaining of shortness of breath. Differential Diagnosis included but are not limited to: COPD vs. dyspnea vs. ACS vs. CHF Plan: -- Labs -- EKG -- Chest X-ray -- Duoneb -- Solu-medrol -- Reassess and disposition Prior Visits: Notes and results from previous visits were reviewed. On 01/27/2017, pt was seen in the Emergency department for bilateral lower extremity pain. Pt was d/c home. 02/09/17 02:10 EKG: Ordered, reviewed, and independently interpreted the EKG. Rate : 81 BPM Rhythm : NSR Interpretation : LVH. non-specific ST/T wave changes. Comparison : No acute change from previous EKG on 01/22/17. 02/09/17 03:07 Reviewed radiology, chest x-ray shows no acute processes. 02/09/17 03:[address] Gomez, who is aware and agrees with plan. Accepts pt in to her service. Pt will go to Telemetry observation for COPD. Pt is no acute distress. Discussed results and hospital observation plan with pt , who is aware and verbalizes understanding. - Lab Interpretations Lab Results: 02/09/17 02:10 02/09/17 02:10 Lab Results 02/09/17 02:10: Sodium 136, Chloride 90 L, Potassium 3.6, Carbon Dioxide 34 H, Anion Gap 16, BUN 19, Creatinine 4.3 H, Est GFR ( Amer) 13, Est GFR (Non- Af Amer) 11, Random Glucose 103, Calcium 8.6, Total Bilirubin 1.5 H, AST 40 H, ALT 37, Alkaline Phosphatase 384 H, Lactate Dehydrogenase 436, Total Creatine Kinase 52, Troponin I 0.06, Total Protein 6.4, Albumin 3.6, Globulin 2.8, Albumin/Globulin Ratio 1.3 02/09/17 02:10: pO2 201 H, VBG pH 7.51 H, VBG pCO2 48.0, VBG HCO3 38.3 H, VBG Total CO2 39.8 H, VBG O2 Sat (Calc) 99.5 H, VBG Base Excess 13.7 H, VBG Potassium 3.6, Sodium 135.0, Chloride 96.0 L, Glucose 102, Lactate 1.6, FiO2 21.0, Venous Blood Potassium 3.6 02/09/17 02:10: WBC 7.4, RBC 3.72, Hgb 10.5 L, Hct 33.9 L, MCV 91.1, MCH 28.2, MCHC 31.0, RDW 17.7 H, Plt Count 137, MPV 9.5, Gran % 67.2, Lymph % (Auto) 22.4 , Brantley % (Auto) 6.2 H, Eos % (Auto) 3.8, Baso % (Auto) 0.4, Gran # 5.00, Lymph # 1.7, Brantley # 0.5, Eos # 0.3, Baso # 0.03 I have reviewed the lab results: Yes - RAD Interpretation Radiology Orders: 02/09/17 01:43 CHEST PORTABLE [RAD] Stat 02/09/17 09:16 CHEST W/O CONTRAST [CT] Stat [employer] Consultant: ED Physician - EKG Interpretation Interpreted by ED Physician: Yes Type: 12 lead EKG - Medication Orders Current Medication Orders: Discontinued Medications Albuterol/Ipratropium (Duoneb 3 Mg/0.5 Mg (3 Ml) Ud) 3 ml IH Q15M [facility] Stop: 02/09/17 02:16 Last Admin: 02/09/17 02:33 Dose: 3 ml Albuterol/Ipratropium (Duoneb 3 Mg/0.5 Mg (3 Ml) Ud) Confirm Administered Dose 9 ml .ROUTE .[facility] Stop: 02/09/17 01:58 Last Admin: 02/09/17 02:02 Dose: Albuterol/Ipratropium (Duoneb 3 Mg/0.5 Mg (3 Ml) Ud) 3 ml IH Q4H PRN PRN Reason: Shortness of Breath Last Admin: 02/09/17 12:03 Dose: 3 ml Comments: patient complained of s.o.b Atorvastatin Calcium (Lipitor) 20 mg PO DIN [facility] Last Admin: 02/10/17 18:14 Dose: 20 mg Cinacalcet (Sensipar) 30 mg PO DIN [facility] Last Admin: 02/10/17 18:14 Dose: 30 mg Guaifenesin/Dextromethorphan (Robitussin Dm) 5 ml PO Q6H PRN PRN Reason: Cough Last Admin: 02/10/17 18:14 Dose: 5 ml Levalbuterol HCl (Xopenex) 1.25 mg IH [id number] [facility] Last Admin: 02/11/17 07:12 Dose: 1.25 mg Methylprednisolone (Solu-Medrol) 125 mg IVP ONCE ONE Stop: 02/09/17 01:46 Last Admin: 02/09/17 02:19 Dose: 125 mg Methylprednisolone (Solu-Medrol) 40 mg IV Q8H [facility] Last Admin: 02/11/17 09:10 Dose: 40 mg Metoprolol Tartrate (Lopressor) 25 mg PO BID [facility] Last Admin: 02/11/17 09:11 Dose: 25 mg Ondansetron HCl (Zofran Inj) 4 mg IVP STAT STA Stop: 02/11/17 00:45 Last Admin: 02/11/17 01:07 Dose: 4 mg Pantoprazole Sodium (Protonix Ec Tab) 40 mg PO 0630 [facility] Last Admin: 02/11/17 05:54 Dose: 40 mg Sevelamer HCl (Renagel) 800 mg PO TID [facility] Last Admin: 02/11/17 09:11 Dose: 800 mg - Scribe Statement 02/09/17 Jaja Shell training with Idalia Friedman All medical record entries made by the Corinne were at my direction and personally dictated by me. I have reviewed the chart and agree that the record accurately reflects my personal performance of the history, physical exam, medical decision making, and the department course for this patient. I have also personally directed, reviewed, and agree with the discharge instructions and disposition. Disposition/Present on Arrival - Present on Arrival Any Indicators Present on Arrival: No History of DVT/PE: No History of Uncontrolled Diabetes: No Urinary Catheter: No History of Decub. Ulcer: No History Surgical Site Infection Following: None - Disposition Have Diagnosis and Disposition been Completed?: Yes Diagnosis: Asthma exacerbation Disposition: HOSPITALIZED Disposition Time: 03:45 Condition: GOOD
[2017-02-09] MEDS ORDERED: Albuterol-Ipratrop 3 mg / 0.5 (3 ml) UD ONE (01:57)
[2017-02-09] MEDS: Albuterol-Ipratrop 3 mg / 0.5 (3 ml) UD IH SCH ×3 (02:00→02:33)
[2017-02-09 02:23] LABS: BASO # 0.03 K/mm3 (0.0-2.0); BASO % 0.4 % (0.0-3.0); EOS # 0.3 (0.0-0.7); EOS % 3.8 % (1.5-5.0); GRAN % 67.2 % (50.0-68.0); HEMOGLOBIN 10.5 gm/dL (12.0-16.0); LYMPH # 1.7 (1.2-3.4); LYMPH % 22.4 % (22.0-35.0); MEAN CELL VOLUME 91.1 fL (80.0-105.0); MEAN CORPUSCULAR HEMOGLOBIN 28.2 pg (25.0-35.0); MEAN PLATELET VOLUME 9.5 fl (7.0-11.0); MONO # 0.5 (0.1-0.6); MONO % 6.2 % (1.0-6.0); PLATELET COUNT 137 10^3/uL (120.0-450.0); RBC 3.72 10^6/uL (3.5-6.1); RED CELL DISTRIBUTION WIDTH 17.7 % (11.5-14.5); WHITE BLOOD COUNT 7.4 10^3/ul (4.5-11.0)
[2017-02-09 02:33] LABS: ALB/GLOB RATIO 1.3 (1.1-1.8); ALBUMIN 3.6 g/dL (3.0-4.8); CALCIUM 8.6 mg/dL (8.4-10.5)
[2017-02-09 02:39] LABS: VENOUS BLOOD GAS BASE EXCESS 13.7 mmol/L (0.0-2.0); VENOUS BLOOD GAS PO2 201 mm/Hg (30-55); VENOUS BLOOD PH 7.51 (7.32-7.43)
[2017-02-09 02:44] LABS: TROPONIN I 0.06 ng/mL
[2017-02-09] MEDS ORDERED: Albuterol-Ipratrop 3 mg / 0.5 (3 ml) UD IH PRN (03:37)
--- NOTE | 2017-02-09 08:31 | RAD ---
HISTORY: sob COMPARISON: 12/17/2016 FINDINGS: LUNGS: No active pulmonary disease. PLEURA: No significant pleural effusion identified, no pneumothorax apparent. CARDIOVASCULAR: Moderate to severe cardiomegaly. Mild vascular congestion OSSEOUS STRUCTURES: No significant abnormalities. VISUALIZED UPPER ABDOMEN: Normal. OTHER FINDINGS: None. IMPRESSION: Moderate to severe cardiomegaly. Mild vascular congestion
--- NOTE | 2017-02-09 09:54 | CP.PCM.CON ---
History of Present Illness - History of Present Illness History of Present Illness: Reason for consultation: cough, shortness of breath, chest tightness HPI: Jacqui Kraus is a 56 year old female smoker, whose past medical history includes ESRD on hemodialysis (Monday/Monday/Monday), hypertension, COPD, and chronic anemia, who presents to the emergency department complaining of shortness of breath since yesterday. She reports associated chest tightness and notes she had nebulizer treatments at home but denies any relief. Patient was fully dialyzed yesterday and denies any headaches, vomiting, back pain, neck pain, back pain, or other complaints. PMSHX: Hypertension, CAD, ESRD, Anemia, Asthma, C. Diff Colitis FHX: Reviewed, unchanged SHX: Smoker, no alcohol use, no IVDA Allergies: reviewed Medications: list reviewed ROS: as mentioned in HPI, rest unremarkable PE: Middle aged lady lying in bed in mild to moderate RD Vital Signs: reviewed HEENT: NC, AT, [place], positive pallor Neck: supple, no JVD Lungs: prolonged expiration, expiratory wheeze, no rales CVS: S1 S2 no murmur Abdomen: soft, non distended, mild tenderness Right side Ext: No edema Labs: reviewed Assessment and Plan: 1. Shortness of breath, cough, chest tightness, asthma exacerbation 2. Hypertension 3. ESRD 4. Anemia 1. Respiratory treatments 2. Possible inhaled steroids 3. No indication of volume overload 4. No dialysis today Thank you for the courtesy of this consultation. Past Patient History - Infectious Disease Hx of Infectious Diseases: None - Tetanus Immunizations Tetanus Immunization: Up to Date - Past Social History Smoking Status: Light Smoker < 10 Cigarettes Daily - CARDIAC Hx Hypertension: Yes - PULMONARY Hx Chronic Obstructive Pulmonary Disease (COPD): Yes - NEUROLOGICAL Hx Neurological Disorder: Yes Other/Comment: SMALL BRAIN ANEURYSM - HEENT Hx HEENT Problems: Yes (torn retina left eye) Other/Comment: can't see center of anything due to torn retina left eye since 1979, no sX - RENAL Hx Dialysis: Yes Date of Last Dialysis Treatment: 02/08/17 Hx Renal Failure: Yes - ENDOCRINE/METABOLIC Hx Endocrine Disorders: No - HEMATOLOGICAL/ONCOLOGICAL Hx Anemia: Yes - INTEGUMENTARY Hx Dermatological Problems: No - MUSCULOSKELETAL/RHEUMATOLOGICAL Hx Falls: No Hx Unsteady Gait: Yes (congenital hip defect) - GASTROINTESTINAL Hx Gastroesophageal Reflux: Yes Hx Ulcer: Yes (sims's esophagus) - GENITOURINARY/GYNECOLOGICAL Hx Genitourinary Disorders: No - PSYCHIATRIC Hx Substance Use: No - SURGICAL HISTORY Other/Comment: pericardial window - ANESTHESIA Hx Anesthesia: Yes Hx Anesthesia Reactions: No Hx Malignant Hyperthermia: No Meds Allergies/Adverse Reactions: Allergies Allergy/AdvReac Type Severity Reaction Status Date / Time aspirin Allergy Severe ANAPHYLAXIS Verified 02/09/17 01:34 ciprofloxacin Allergy Severe ANAPHYLAXIS Verified 02/09/17 01:34 [place] And Derivatives Allergy Severe ANAPHYLAXIS Verified 02/09/17 01:34 enalapril Allergy Severe HIVES Verified 02/09/17 01:34 heparin Allergy Severe ANAPHYLAXIS Verified 02/09/17 01:34 latex Allergy Severe ANAPHYLAXIS Verified 02/09/17 01:34 Penicillins Allergy Severe ANAPHYLAXIS Verified 02/09/17 01:34 Sulfa (Sulfonamide Allergy Severe ANAPHYLAXIS Verified 02/09/17 01:34 Antibiotics) levothyroxine sodium Allergy Intermediate RASH Verified 02/09/17 01:34 [From Levoxyl] acetaminophen Allergy Mild RASH Verified 02/09/17 01:34 codeine Allergy Mild RASH Verified 02/09/17 01:34 enoxaparin Allergy Mild RASH Verified 02/09/17 01:34 iodine Allergy Mild RASH Verified 02/09/17 01:34 influenza virus vaccine, Allergy hives Verified 02/09/17 01:34 specific - Medications Medications: Current Medications Albuterol/Ipratropium (Duoneb 3 Mg/0.5 Mg (3 Ml) Ud) 3 ml IH Q4H PRN PRN Reason: Shortness of Breath Atorvastatin Calcium (Lipitor) 20 mg PO DIN LXE Cinacalcet (Sensipar) 30 mg PO DIN [facility] Levalbuterol HCl (Xopenex) 1.25 mg IH [id number] [facility] Methylprednisolone (Solu-Medrol) 40 mg IV Q8H [facility] Metoprolol Tartrate (Lopressor) 25 mg PO BID [facility] Pantoprazole Sodium (Protonix Ec Tab) 40 mg PO 0630 [facility] Sevelamer HCl (Renagel) 800 mg PO TID [facility] Results - Vital Signs Recent Vital Signs: Last Vital Signs Temp 98.6 F 02/09/17 04:12 Pulse 91 H 02/09/17 05:20 Resp 19 02/09/17 04:15 BP 145/73 02/09/17 04:12 Pulse Ox 95 02/09/17 04:15 - Labs Result Diagrams: 02/09/17 02:10 02/09/17 02:10
[2017-02-09] MEDS ORDERED: MethylPREDNISolone 40 mg Vial IVP SCH (10:00)
[2017-02-09] MEDS ORDERED: Non Formulary Medication (Sevelamer Carbonate [Renvela] 800 MG) PO SCH (10:00)
[2017-02-09] MEDS: MethylPREDNISolone 40 mg Vial IV SCH ×2 (10:22→17:04)
--- NOTE | 2017-02-09 12:43 | CT ---
PROCEDURE: CT Chest without contrast HISTORY: sob COMPARISON: 12/05/2016 TECHNIQUE: Contiguous axial images were obtained through the chest without intravenous contrast enhancement. Sagittal and coronal reconstructions were performed. Radiation dose (DLP): 288 mGy-cm. This CT exam was performed using one or more of the following dose reduction techniques: Automated exposure control, adjustment of the mA and/or kV according to patient size, and/or use of iterative reconstruction technique. FINDINGS: LUNGS: Minimal ground-glass densities are seen in both lungs. There is no focal consolidation. There is no obvious vascular congestion. Minimal scarring or atelectasis in the lingular segment of the left upper lobe adjacent to the left heart border. MEDIASTINUM: Unremarkable thoracic aorta. No aneurysm. Moderate cardiomegaly. Calcification of coronary arteries Main pulmonary artery unremarkable. No vascular congestion. No lymphadenopathy. PLEURA: No pleural fluid. No pneumothorax. BONES: No fracture. No destructive lesion. UPPER ABDOMEN: Grossly unremarkable. OTHER FINDINGS: There is a left subclavian stent. IMPRESSION: No acute findings. No focal consolidation to suggest pneumonia
[2017-02-09] MEDS: Levalbuterol 1.25 MG/3 ML Inhal Soln UD IH SCH ×2 (14:24→21:45)
[2017-02-09] MEDS: guaiFENesin DM 100 mg-10 mg/5 ml UD PO PRN (17:21)
[2017-02-10] MEDS: Levalbuterol 1.25 MG/3 ML Inhal Soln UD IH SCH ×4 (02:00→19:32)
[2017-02-10] MEDS: MethylPREDNISolone 40 mg Vial IV SCH ×3 (02:39→18:14)
[2017-02-10] MEDS: guaiFENesin DM 100 mg-10 mg/5 ml UD PO PRN ×3 (02:45→18:14)
[2017-02-10] MEDS: Pantoprazole 40 mg EC Tab PO SCH (05:39)
[2017-02-10 06:06] VITALS: O2SAT 97
[2017-02-10 07:25] LABS: ALB/GLOB RATIO 1.5 (1.1-1.8); ALBUMIN 3.8 g/dL (3.0-4.8); CALCIUM 9.3 mg/dL (8.4-10.5)
--- NOTE | 2017-02-10 10:00 | CARD ---
APPROVED REPORT EKG Measurement Heart [id number] <Conclusion> Normal sinus rhythm Possible Left atrial enlargement Left axis deviation Left ventricular hypertrophy ST & T wave abnormality, consider lateral ischemia Prolonged QT No change
[2017-02-10 15:09] LABS: BASO # 0.01 K/mm3 (0.0-2.0); BASO % 0.1 % (0.0-3.0); GRAN % 87.4 % (50.0-68.0); LYMPH # 0.8 (1.2-3.4); LYMPH % 8.7 % (22.0-35.0); MEAN CELL VOLUME 89.2 fL (80.0-105.0); MEAN CORPUSCULAR HEMOGLOBIN 28.3 pg (25.0-35.0); MEAN CORPUSCULAR HGB CONC 31.7 g/dl (31.0-37.0); MEAN PLATELET VOLUME 10.1 fl (7.0-11.0); MONO # 0.3 (0.1-0.6); MONO % 3.8 % (1.0-6.0); PLATELET COUNT 197 10^3/uL (120.0-450.0); RBC 3.89 10^6/uL (3.5-6.1); RED CELL DISTRIBUTION WIDTH 18.2 % (11.5-14.5); WHITE BLOOD COUNT 8.7 10^3/ul (4.5-11.0)
--- NOTE | 2017-02-10 15:09 | CP.PCM.PN ---
Subjective - Date & Time of Evaluation Date of Evaluation: 02/10/17 Time of Evaluation: 08:30 - Subjective Subjective: C/o dry cough Chest tightness SOB Objective - Vital Signs/Intake and Output Vital Signs (last 24 hours): Temp Pulse Resp BP Pulse Ox 98 F 96 H 20 136/76 97 02/10/17 11:45 02/10/17 11:45 02/10/17 11:45 02/10/17 11:45 02/10/17 06:00 Intake and Output: 02/10/17 02/10/17 06:59 18:59 Intake Total 140 Output Total 1 Balance 139 - Medications Medications: Current Medications Albuterol/Ipratropium (Duoneb 3 Mg/0.5 Mg (3 Ml) Ud) 3 ml IH Q4H PRN PRN Reason: Shortness of Breath Last Admin: 02/09/17 12:03 Dose: 3 ml Atorvastatin Calcium (Lipitor) 20 mg PO DIN [facility] Last Admin: 02/09/17 17:04 Dose: 20 mg Cinacalcet (Sensipar) 30 mg PO DIN [facility] Last Admin: 02/09/17 17:03 Dose: 30 mg Guaifenesin/Dextromethorphan (Robitussin Dm) 5 ml PO Q6H PRN PRN Reason: Cough Last Admin: 02/10/17 08:58 Dose: 5 ml Levalbuterol HCl (Xopenex) 1.25 mg IH [id number] [facility] Last Admin: 02/10/17 13:39 Dose: 1.25 mg Methylprednisolone (Solu-Medrol) 40 mg IV Q8H [facility] Last Admin: 02/10/17 08:58 Dose: 40 mg Metoprolol Tartrate (Lopressor) 25 mg PO BID [facility] Last Admin: 02/10/17 08:59 Dose: 25 mg Pantoprazole Sodium (Protonix Ec Tab) 40 mg PO 0630 [facility] Last Admin: 02/10/17 05:39 Dose: 40 mg Sevelamer HCl (Renagel) 800 mg PO TID [facility] Last Admin: 02/10/17 12:59 Dose: 800 mg - Labs Labs: 02/10/17 05:46 - Constitutional Appears: Chronically Ill - Head Exam Head Exam: NORMAL INSPECTION, NORMOCEPHALIC - Eye Exam Eye Exam: Normal appearance, PERRL - ENT Exam ENT Exam: Mucous Membranes Moist - Neck Exam Neck Exam: Normal Inspection - Respiratory Exam Respiratory Exam: Prolonged Expiratory Phase, Rhonchi, Wheezes, Respiratory Distress - Cardiovascular Exam Cardiovascular Exam: REGULAR RHYTHM, +S1, +S2 - GI/Abdominal Exam GI & Abdominal Exam: Soft, Tenderness, Normal Bowel Sounds - Extremities Exam Extremities Exam: Normal Inspection Assessment and Plan - Assessment and Plan (Free Text) Plan: Acute Asthmatic Bronchitis HTN ESRD H/o PMC Anemia Con't resp treatments HD today Con't BP meds
[2017-02-10 15:16] LABS: MAGNESIUM 2.2 mg/dL (1.7-2.2)
--- NOTE | 2017-02-11 00:43 | CP.PCM.PN ---
Subjective - Date & Time of Evaluation Date of Evaluation: 02/11/17 Time of Evaluation: 00:42 - Subjective Subjective: Patient was seen at bedside for her complaint of nausea. States that she has nausea for 2 nights. She gets nausea on and off. Has no headache, dizziness, chest pain, sob, palpitation, sweating. No other complaints. ROS:Negative except as mentioned above. This 56 year old woman was admitted with cough , sob , chest tightness. Has PMH of ESRD on HD, anemia, COPD, HTN , CAD, asthma , C.Diff. Colitis. Objective - Vital Signs/Intake and Output Vital Signs (last 24 hours): Temp Pulse Resp BP Pulse Ox 97.9 F 88 18 140/84 97 02/10/17 23:55 02/10/17 23:55 02/10/17 23:55 02/10/17 23:55 02/10/17 23:55 - Medications Medications: Current Medications Albuterol/Ipratropium (Duoneb 3 Mg/0.5 Mg (3 Ml) Ud) 3 ml IH Q4H PRN PRN Reason: Shortness of Breath Last Admin: 02/09/17 12:03 Dose: 3 ml Atorvastatin Calcium (Lipitor) 20 mg PO DIN [facility] Last Admin: 02/10/17 18:14 Dose: 20 mg Cinacalcet (Sensipar) 30 mg PO DIN [facility] Last Admin: 02/10/17 18:14 Dose: 30 mg Guaifenesin/Dextromethorphan (Robitussin Dm) 5 ml PO Q6H PRN PRN Reason: Cough Last Admin: 02/10/17 18:14 Dose: 5 ml Levalbuterol HCl (Xopenex) 1.25 mg IH [id number] [facility] Last Admin: 02/10/17 19:32 Dose: 1.25 mg Methylprednisolone (Solu-Medrol) 40 mg IV Q8H [facility] Last Admin: 02/10/17 18:14 Dose: 40 mg Metoprolol Tartrate (Lopressor) 25 mg PO BID [facility] Last Admin: 02/10/17 18:14 Dose: 25 mg Pantoprazole Sodium (Protonix Ec Tab) 40 mg PO 0630 [facility] Last Admin: 02/10/17 05:39 Dose: 40 mg Sevelamer HCl (Renagel) 800 mg PO TID [facility] Last Admin: 02/10/17 18:14 Dose: 800 mg - Labs Labs: 02/10/17 14:50 02/10/17 05:46 Lab Studies 02/10/17 02/10/17 02/10/17 Range/Units 14:50 14:50 05:46 WBC 8.7 (4.5-11.0) 10^3/ul RBC 3.89 (3.5-6.1) 10^6/uL Hgb 11.0 L (12.0-16.0) gm/dL Hct 34.7 L (36.0-48.0) % MCV 89.2 (80.0-105.0) fL MCH 28.3 (25.0-35.0) pg MCHC 31.7 (31.0-37.0) g/dl RDW 18.2 H (11.5-14.5) % Plt Count 197 (120.0-450.0) 10^3/uL MPV 10.1 (7.0-11.0) fl Gran % 87.4 H (50.0-68.0) % Lymph % (Auto) 8.7 L (22.0-35.0) % [place] % (Auto) 3.8 (1.0-6.0) % Eos % (Auto) 0.0 L (1.5-5.0) % Baso % (Auto) 0.1 (0.0-3.0) % Gran # 7.60 H (1.4-6.5) Lymph # 0.8 L (1.2-3.4) [place] # 0.3 (0.1-0.6) Eos # 0.0 (0.0-0.7) Baso # 0.01 (0.0-2.0) K/mm3 Sodium 135 (132-148) mmol/L Potassium 4.6 (3.6-5.0) mmol/L Chloride 91 L (95-110) mmol/L Carbon Dioxide 29 (21-33) mmol/L Anion Gap 20 (10-20) BUN 41 H (7-21) mg/dL Creatinine 6.6 H (0.5-1.4) mg/dL Est GFR ( Amer) 8 Est GFR (Non-Af Amer) 6 Random Glucose 152 H (70-110) mg/dL Calcium 9.3 (8.4-10.5) mg/dL Phosphorus 5.0 H (2.5-4.5) mg/dL Magnesium 2.2 (1.7-2.2) mg/dL Total Bilirubin 1.6 H (0.2-1.3) mg/dL AST 34 (15-39) U/L ALT 38 (7-56) U/L Alkaline Phosphatase 343 H (38-133) U/L Total Protein 6.3 (5.8-8.3) g/dL Albumin 3.8 (3.0-4.8) g/dL Globulin 2.6 gm/dL Albumin/Globulin Ratio 1.5 (1.1-1.8) - Constitutional Appears: Well, No Acute Distress - Head Exam Head Exam: ATRAUMATIC, NORMAL INSPECTION, NORMOCEPHALIC - Eye Exam Eye Exam: Normal appearance - ENT Exam ENT Exam: Normal External Ear Exam - Neck Exam Neck Exam: Normal Inspection - Respiratory Exam Respiratory Exam: NORMAL BREATHING PATTERN - Cardiovascular Exam Cardiovascular Exam: absent: JVD - GI/Abdominal Exam GI & Abdominal Exam: absent: Distended, Tenderness - Rectal Exam Rectal Exam: Deferred - Exam Additional comments: above deferred. - Back Exam Back Exam: NORMAL INSPECTION - Neurological Exam Neurological Exam: Alert, Oriented x3 - Psychiatric Exam Psychiatric exam: Normal Affect - Skin Skin Exam: Normal Color Assessment and Plan - Assessment and Plan (Free Text) Assessment: Nausea-2* to uremia. ESRD on HD. Chronic anemia. CAD. HTN. COPD. Asthma. C.Diff.Colitis Hx. Plan: Zofran 4 mg IV stat. Continue present management.
[2017-02-11] MEDS: Levalbuterol 1.25 MG/3 ML Inhal Soln UD IH SCH ×2 (01:04→07:12)
[2017-02-11] MEDS: MethylPREDNISolone 40 mg Vial IV SCH ×2 (01:06→09:10)
[2017-02-11] MEDS: Pantoprazole 40 mg EC Tab PO SCH (05:54)
[2017-02-11 06:23] VITALS: RESP 20; TEMP 97.3
[2017-02-11 07:37] LABS: ALB/GLOB RATIO 1.5 (1.1-1.8); ALBUMIN 3.9 g/dL (3.0-4.8); CALCIUM 8.8 mg/dL (8.4-10.5)
[2017-02-11 09:15] VITALS: BP 147/87; PULSE 82
--- NOTE | 2017-02-11 09:59 | CP.PCM.PN ---
Subjective - Date & Time of Evaluation Date of Evaluation: 02/11/17 Time of Evaluation: 09:15 - Subjective Subjective: Cough is better Bringing up white phlegm No fever No Chest tightness A/P Acute Asthmatic Bronchitis HTN ESRD H/o PMC Anemia Con't resp treatments HD stable 02/10 Con't BP meds Objective - Vital Signs/Intake and Output Vital Signs (last 24 hours): Temp Pulse Resp BP Pulse Ox 97.3 F L 82 20 147/87 97 02/11/17 06:00 02/11/17 09:11 02/11/17 06:00 02/11/17 09:11 02/11/17 06:00 Intake and Output: 02/11/17 02/11/17 06:59 18:59 Intake Total 540 Balance 540 - Medications Medications: Current Medications Albuterol/Ipratropium (Duoneb 3 Mg/0.5 Mg (3 Ml) Ud) 3 ml IH Q4H PRN PRN Reason: Shortness of Breath Last Admin: 02/09/17 12:03 Dose: 3 ml Atorvastatin Calcium (Lipitor) 20 mg PO DIN [facility] Last Admin: 02/10/17 18:14 Dose: 20 mg Cinacalcet (Sensipar) 30 mg PO DIN [facility] Last Admin: 02/10/17 18:14 Dose: 30 mg Guaifenesin/Dextromethorphan (Robitussin Dm) 5 ml PO Q6H PRN PRN Reason: Cough Last Admin: 02/10/17 18:14 Dose: 5 ml Levalbuterol HCl (Xopenex) 1.25 mg IH [id number] [facility] Last Admin: 02/11/17 07:12 Dose: 1.25 mg Methylprednisolone (Solu-Medrol) 40 mg IV Q8H [facility] Last Admin: 02/11/17 09:10 Dose: 40 mg Metoprolol Tartrate (Lopressor) 25 mg PO BID [facility] Last Admin: 02/11/17 09:11 Dose: 25 mg Pantoprazole Sodium (Protonix Ec Tab) 40 mg PO 0630 [facility] Last Admin: 02/11/17 05:54 Dose: 40 mg Sevelamer HCl (Renagel) 800 mg PO TID [facility] Last Admin: 02/11/17 09:11 Dose: 800 mg - Labs Labs: 02/10/17 14:50 02/11/17 07:20
== END 2017-02-11 13:11 | disposition home or self-care (01) | DRG 190 ==
LOC: ED 01:20 → ERH 03:36 → 2RNO 04:20 → OBSVTOIN 17:30
PROVIDERS: ADMIT Internal Medicine; ATTEND Internal Medicine
DX: J44.1 Chronic obstructive pulmonary disease with (acute) exacerbation (principal); N18.6 End stage renal disease; I13.2 Hypertensive heart and chronic kidney disease with heart failure and with stage 5 chronic kidney disease, or end stage renal disease; I67.1 Cerebral aneurysm, nonruptured; J45.901 Unspecified asthma with (acute) exacerbation; K21.9 Gastro-esophageal reflux disease without esophagitis; I50.9 Heart failure, unspecified; D64.9 Anemia, unspecified; I25.10 Atherosclerotic heart disease of native coronary artery without angina pectoris; Z86.19 Personal history of other infectious and parasitic diseases; Z88.6 Allergy status to analgesic agent; Z88.1 Allergy status to other antibiotic agents; Z88.8 Allergy status to other drugs, medicaments and biological substances; Z91.018 Allergy to other foods; K22.70 Barrett's esophagus without dysplasia; Z79.899 Other long term (current) drug therapy; Z90.49 Acquired absence of other specified parts of digestive tract; Z99.2 Dependence on renal dialysis; K52.9 Noninfective gastroenteritis and colitis, unspecified; Z88.5 Allergy status to narcotic agent; Z88.0 Allergy status to penicillin; Z88.2 Allergy status to sulfonamides; Z88.7 Allergy status to serum and vaccine; Z87.892 Personal history of anaphylaxis; Z91.040 Latex allergy status; R40.2412 Glasgow coma scale score 13-15, at arrival to emergency department; F17.210 Nicotine dependence, cigarettes, uncomplicated; H33.312 Horseshoe tear of retina without detachment, left eye; M89.78 Major osseous defect, other site

== ENCOUNTER 2017-03-04 21:38 | Observation (INO) | payer MEDICARE, BC ==
[2017-03-04 21:57] VITALS: BMI 25.2
[2017-03-04 22:00] VITALS: RESP 18
[2017-03-04] MEDS ORDERED: Morphine 2 mg/ml ISec IVP STA (22:22)
[2017-03-04 23:02] LABS: ALB/GLOB RATIO 1.2 (1.1-1.8); ALBUMIN 3.7 g/dL (3.0-4.8); CALCIUM 9.3 mg/dL (8.4-10.5)
--- NOTE | 2017-03-04 23:13 | ED PDOC ---
Arrival/HPI - General Chief Complaint: Lower Extremity Problem/Injury Time Seen by Provider: 03/04/17 22:10 Historian: Patient - History of Present Illness Narrative History of Present Illness (Text): 03/04/17 22:13 A 56 year old female, whose past medical history includes ESRD on hemodialysis ( Monday/Monday/Monday), hypertension, COPD, degenerative disc disease, and chronic anemia, presents to the emergency department with chronic lower back pain. Patient also complaining of bilateral lower extremity pain with swelling for the past few days. Patient notes she was dialyzed 1 extra day due to fluid retention. She denies any trauma or injury, headache, nausea, diarrhea, vomiting, headache, fever, chills, or any other complaints. Time/Duration: Other (few days) Symptom Onset: Gradual Symptom Course: Unchanged Activities at Onset: Rest, Light Context: Home Past Medical History - Provider Review Nursing Documentation Reviewed: Yes - Past History Past History: Non-Contributing - Infectious Disease Hx of Infectious Diseases: None - Tetanus Immunization Tetanus Immunization: Up to Date - Cardiac Hx Cardiac Disorders: Yes Hx Congestive Heart Failure: Yes Hx Hypertension: Yes - Pulmonary Hx Chronic Obstructive Pulmonary Disease (COPD): Yes - Neurological Hx Neurological Disorder: Yes Other/Comment: SMALL BRAIN ANEURYSM - HEENT Hx HEENT Disorder: Yes (torn retina left eye) Other/Comment: can't see center of anything due to torn retina left eye since 1979, no sX - Renal Hx Dialysis: (MWF) Type of Dialysis Access: L AV shunt Date of Last Dialysis Treatment: 03/03/17 Hx Renal Failure: Yes - Endocrine/Metabolic Hx Endocrine Disorders: No - Hematological/Oncological Hx Blood Disorders: Yes Hx Anemia: Yes (BT) - Integumentary Hx Dermatological Disorder: No - Musculoskeletal/Rheumatological Hx Musculoskeletal Disorders: Yes Hx Falls: Yes Other/Comment: congenital hip defect - Gastrointestinal Hx Gastrointestinal Disorders: Yes (barretts esophagus) Hx Gall Bladder Disease: Yes Hx Gastroesophageal Reflux: Yes Other/Comment: abdominal pain - Genitourinary/Gynecological Hx Genitourinary Disorders: No - Psychiatric Hx Psychophysiologic Disorder: No Hx Substance Use: No - Surgical History Hx Cardiac Catheterization: Yes (04/04/14) Hx Cholecystectomy: Yes (lap dyllan) Hx Orthopedic Surgery: Yes (hip dislocation) Other/Comment: pericardial window, pericardiocenthesis 2014, c sections x2, T&A , fistulagram - Anesthesia Hx Anesthesia: Yes Hx Anesthesia Reactions: No Hx Malignant Hyperthermia: No - Suicidal Assessment Feels Threatened In Home Enviroment: No Family/Social History - Physician Review Nursing Documentation Reviewed: Yes Family/Social History: No Known Family HX Smoking Status: Light Smoker < 10 Cigarettes Daily Hx Alcohol Use: No Hx Substance Use: No Hx Substance Use Treatment: No Allergies/Home Meds Allergies/Adverse Reactions: Allergies aspirin Allergy (Severe, Verified 02/09/17 01:34) ANAPHYLAXIS ciprofloxacin Allergy (Severe, Verified 02/09/17 01:34) ANAPHYLAXIS [place] Derivatives Allergy (Severe, Verified 02/09/17 01:34) ANAPHYLAXIS enalapril Allergy (Severe, Verified 02/09/17 01:34) HIVES heparin Allergy (Severe, Verified 02/09/17 01:34) ANAPHYLAXIS latex Allergy (Severe, Verified 02/09/17 01:34) ANAPHYLAXIS Penicillins Allergy (Severe, Verified 02/09/17 01:34) ANAPHYLAXIS Sulfa (Sulfonamide Antibiotics) Allergy (Severe, Verified 02/09/17 01:34) ANAPHYLAXIS levothyroxine sodium [From Levoxyl] Allergy (Intermediate, Verified 02/09/17 01: 34) RASH acetaminophen Allergy (Mild, Verified 02/09/17 01:34) RASH codeine Allergy (Mild, Verified 02/09/17 01:34) RASH enoxaparin Allergy (Mild, Verified 02/09/17 01:34) RASH iodine Allergy (Mild, Verified 02/09/17 01:34) RASH influenza virus vaccine, specific Allergy (Verified 02/09/17 01:34) hives Home Medications: Home Meds Medication Instructions Recorded Confirmed Cinacalcet [Sensipar] 30 mg PO DIN 02/05/14 03/04/17 Rosuvastatin Calcium [Crestor] 20 mg PO DAILY 02/05/14 03/04/17 Esomeprazole Magnesium [Nexium] 40 mg PO DAILY 02/09/17 03/04/17 Levocetirizine Dihydrochloride 5 mg PO DAILY 02/09/17 03/04/17 Metoprolol Tartrate [Lopressor] 25 mg PO BID 02/09/17 03/04/17 Sevelamer Carbonate [Renvela] 800 mg PO TID 02/09/17 03/04/17 Review of Systems - Physician Review All systems were reviewed & negative as marked: Yes - Review of Systems Constitutional: absent: Fevers, Night Sweats Eyes: Normal ENT: Normal Respiratory: Normal. absent: SOB Cardiovascular: Normal. absent: Chest Pain Gastrointestinal: absent: Diarrhea, Nausea, Vomiting Musculoskeletal: Back Pain (lower back pain), Other (+bilateral lower extremity swelling). absent: Neck Pain Skin: Normal Neurological: Normal. absent: Headache, Dizziness Endocrine: Normal Hemo/Lymphatic: Normal Psychiatric: Normal Physical Exam Vital Signs Reviewed: Yes Vital Signs Temp Pulse Resp BP Pulse Ox 03/05/17 06:27 98.5 F 70 18 138/75 98 03/05/17 03:38 75 18 135/70 98 03/05/17 01:38 86 18 150/68 97 03/04/17 23:38 98.9 F 90 18 155/75 H 96 03/04/17 21:59 99.2 F 97 H 18 168/80 H 95 Temperature: Afebrile Blood Pressure: Hypertensive Pulse: Tachycardic Respiratory Rate: Normal Appearance: Positive for: Well-Appearing, Non-Toxic, Comfortable Pain Distress: None Mental Status: Positive for: Alert and Oriented X 3 - Systems Exam Head: Present: Atraumatic, Normocephalic Pupils: Present: PERRL Extroacular Muscles: Present: EOMI Conjunctiva: Present: Normal Mouth: Present: Moist Mucous Membranes Neck: Present: Normal Range of Motion Respiratory/Chest: Present: Clear to Auscultation, Good Air Exchange. No: Respiratory Distress, Accessory Muscle Use Cardiovascular: Present: Regular Rate and Rhythm, Normal S1, S2. No: Murmurs Abdomen: Present: Normal Bowel Sounds. No: Tenderness, Distention, Peritoneal Signs Back: Present: Normal Inspection. No: CVA Tenderness, Midline Tenderness, Paraspinal Tenderness Upper Extremity: Present: Normal Inspection. No: Cyanosis, Edema Lower Extremity: Present: NORMAL PULSES, Normal ROM, Neurovascularly Intact, Other (1+ bilateral lower leg pitting edema). No: CALF TENDERNESS, Stanislav's Sign , Tenderness Neurological: Present: GCS=15, CN II-XII Intact, Speech Normal, Motor Func Grossly Intact, Normal Sensory Function Skin: Present: Warm, Dry, Normal Color. No: Rashes Psychiatric: Present: Alert, Oriented x 3, Normal Insight, Normal Concentration Medical Decision Making ED Course and Treatment: 03/04/17 22:23 Impression: 56 year old female with lower back pain and lower extremity swelling. Plan: -- EKG -- Chest X-ray -- Morphine and Zofran -- US Lower Extremity -- Lumbar Spine X-Ray -- Reassess and disposition Prior Visits: Notes and results from previous visits were reviewed. - Lab Interpretations Lab Results: 03/04/17 10:40 03/04/17 10:40 Lab Results 03/04/17 10:40: WBC 6.5 D, RBC 3.75, Hgb 10.7 L, Hct 34.1 L, MCV 90.9, MCH 28.5 , MCHC 31.4, RDW 18.8 H, Plt Count 130, MPV 9.8 03/04/17 10:40: Sodium 136, Potassium 5.0, Chloride 93 L, Carbon Dioxide 32, Anion Gap 16, BUN 46 H, Creatinine 5.6 H, Est GFR ( Amer) 9, Est GFR (Non -Af Amer) 8, Random Glucose 173 H, Calcium 9.3, Total Bilirubin 1.6 H, AST 33, ALT 35, Alkaline Phosphatase 584 H, Total Protein 6.7, Albumin 3.7, Globulin 3.0 , Albumin/Globulin Ratio 1.2 I have reviewed the lab results: Yes - RAD Interpretation Interactive Video Technician: ED Physician, Radiologist - EKG Interpretation Interpreted by ED Physician: Yes Type: 12 lead EKG - Medication Orders Current Medication Orders: Discontinued Medications Morphine Sulfate (Morphine) 2 mg IVP STAT STA Stop: 03/04/17 22:23 Last Admin: 03/04/17 22:30 Dose: 2 mg Morphine Sulfate (Morphine) 2 mg IVP STAT STA Stop: 03/05/17 01:45 Last Admin: 03/05/17 01:59 Dose: 2 mg Ondansetron HCl (Zofran Inj) 4 mg IVP ONCE ONE Stop: 03/04/17 22:23 Last Admin: 03/04/17 22:30 Dose: 4 mg ED OBSERVATION Discharge: Yes Date of observation admission: 03/05/17 Time of observation admission: 22:15 - Observation admission statement Patient is being placed in observation because:: treatment of back pain - Goals of Observation Goals of observation are:: treat and determine etiology of symptoms - Progress Note Progress Note: 03/04/17 22:15 EKG: Ordered, reviewed, and independently interpreted the EKG. Rate : 94 BPM Rhythm : NSR Interpretation : LVH, Non-specific ST/T- wave changes. 03/05/17 00:15 Pt resting comfortably, no new complaints. 03/05/17 02:17 Reviewed radiology, Chest X-ray No acute processes LS X-Ray No acute processes 03/05/17 03:00 US Lower Extremity negative for DVT. 03/05/17 05:00 Pt sleeping currently, in no acute distress. 03/05/17 06:00 On reevaluation the patient feels better and is in no acute distress. I have discussed the results and plan with the patient, who expresses understanding. Patient given the opportunity to ask question, all questions were answered and there is agreement with the plan to discharge the patient home. Patient is stable for discharge. Patient was instructed to follow up with physician/clinic in 1-2 days or return if symptoms persist/worsen or new concerning symptoms arise. - Scribe Statement The provider has reviewed the documentation as recorded by the Scribe Rivka Hernandez training under Idalia Friedman Provider Scribe Attestation: All medical record entries made by the Scribe were at my direction and personally dictated by me. I have reviewed the chart and agree that the record accurately reflects my personal performance of the history, physical exam, medical decision making, and the department course for this patient. I have also personally directed, reviewed, and agree with the discharge instructions and disposition. Disposition/Present on Arrival - Present on Arrival Any Indicators Present on Arrival: No History of DVT/PE: No History of Uncontrolled Diabetes: No Urinary Catheter: No History of Decub. Ulcer: No History Surgical Site Infection Following: None - Disposition Have Diagnosis and Disposition been Completed?: Yes Diagnosis: Back pain, Lumbar disc disease with radiculopathy Disposition: HOME/ ROUTINE Disposition Time: 05:53 Patient Plan: Discharge Condition: GOOD
[2017-03-04 23:21] LABS: HEMOGLOBIN 10.7 gm/dL (12.0-16.0); MEAN CELL VOLUME 90.9 fL (80.0-105.0); MEAN CORPUSCULAR HEMOGLOBIN 28.5 pg (25.0-35.0); MEAN CORPUSCULAR HGB CONC 31.4 g/dl (31.0-37.0); MEAN PLATELET VOLUME 9.8 fl (7.0-11.0); RBC 3.75 10^6/uL (3.5-6.1); RED CELL DISTRIBUTION WIDTH 18.8 % (11.5-14.5); WHITE BLOOD COUNT 6.5 10^3/ul (4.5-11.0)
[2017-03-05] MEDS ORDERED: Morphine 2 mg/ml ISec IVP STA (01:44)
[2017-03-05 05:09] VITALS: O2SAT 98
[2017-03-05 06:28] VITALS: BP 138/75; PULSE 70; TEMP 98.5
--- NOTE | 2017-03-05 12:05 | RAD ---
HISTORY: fever COMPARISON: Prior portable chest radiograph 02/09/2017. FINDINGS: LUNGS: No active pulmonary disease. PLEURA: No significant pleural effusion identified, no pneumothorax apparent. CARDIOVASCULAR: Moderate cardiomegaly appearing unchanged. OSSEOUS STRUCTURES: No significant abnormalities. VISUALIZED UPPER ABDOMEN: Normal. OTHER FINDINGS: Multiple left subclavian and axillary region wall stents identified once again. IMPRESSION: Stable moderate cardiomegaly. No acute infiltrate or pleural effusion bilaterally.
--- NOTE | 2017-03-05 12:25 | RAD ---
PROCEDURE: Radiographs of the Lumbar Spine. HISTORY: back pain COMPARISON: Lumbar spine radiographs 05/02/2016. FINDINGS: BONES: Subtle splinting is favored over an interval subtle levoscoliosis next. No spondylolisthesis. DISC SPACES: Worsening of L5-S1 degenerative disc disease appreciated with relatively prominent posterior osteophytic ridging developing. Anterior vacuum disc changes are again identified. Remaining disc heights remain well maintained. OTHER FINDINGS: None. IMPRESSION: Advancing degenerative disease L5-S1 without fracture or spondylolisthesis grossly evident. MRI may be useful further characterization if clinically delete warranted.
--- NOTE | 2017-03-05 13:44 | CARD ---
APPROVED REPORT EKG Measurement Heart [id number] <Conclusion> Normal sinus rhythm Possible Left atrial enlargement Left ventricular hypertrophy ST & T wave abnormality, consider lateral ischemia Prolonged QT Abnormal ECG
--- NOTE | 2017-03-06 15:50 | US ---
HISTORY: Leg pain and swelling. Evaluate for DVT PHYSICIAN(S): Josh Vanegas MD. TECHNIQUE: Duplex sonography and color-flow Doppler with graded compression were used to evaluate the deep venous systems of both lower extremities. FINDINGS: The visualized deep venous systems of both lower extremities are sonographically normal and compressible. Normal wave forms and augmentation are seen. There is no sonographic evidence for deep venous thrombosis in the visualized segments of both lower extremities. IMPRESSION: No sonographic evidence for deep venous thrombosis in the visualized segments of both lower extremities.
== END 2017-03-05 05:47 | disposition home or self-care (01) ==
LOC: ED 21:38 → EROBSV 22:15
PROVIDERS: ADMIT Emergency Medicine; ATTEND Emergency Medicine
DX: M51.16 Intervertebral disc disorders with radiculopathy, lumbar region (principal); I12.0 Hypertensive chronic kidney disease with stage 5 chronic kidney disease or end stage renal disease; N18.6 End stage renal disease; Z99.2 Dependence on renal dialysis; Z72.0 Tobacco use
CPT/HCPCS: 71010; 72100; 80053; 85027; 93005; 93970; 96374; 96375; 96376; 99284; G0378; J2270; J2405

== ENCOUNTER 2017-03-09 18:58 | Inpatient (IN) | payer MEDICARE, BC ==
[2017-03-09] MEDS ORDERED: Morphine 4 mg/ml ISec IVP STA (20:40)
--- NOTE | 2017-03-09 20:48 | ED PDOC ---
Arrival/HPI - General Chief Complaint: Lower Extremity Problem/Injury Time Seen by Provider: 03/09/17 19:35 Historian: Patient - History of Present Illness Narrative History of Present Illness (Text): 03/09/17 20:47 56 year old female, whose past medical history includes ESRD on hemodialysis ( Monday/Monday/Monday), hypertension, COPD, degenerative disc disease, and chronic anemia, presents to the emergency department with 1 wk h/o bilateral lower extremity pain with swelling. Patient notes she was dialyzed yesterday, and adds that she was recently seen in this ED a few days ago for similar symptoms. She denies any trauma or injury, headache, nausea, diarrhea, vomiting , headache, fever, chills, CP, SOB, recent travel or any other complaints. PMD Patricia Past Medical History - Provider Review Nursing Documentation Reviewed: Yes - Past History Past History: Non-Contributing - Infectious Disease Hx of Infectious Diseases: None - Tetanus Immunization Tetanus Immunization: Up to Date - Reproductive Menopause: Yes (2007) - Cardiac Hx Cardiac Disorders: Yes Hx Congestive Heart Failure: Yes Hx Hypertension: Yes - Pulmonary Hx Chronic Obstructive Pulmonary Disease (COPD): Yes - Neurological Hx Neurological Disorder: Yes Other/Comment: SMALL BRAIN ANEURYSM - HEENT Hx HEENT Disorder: Yes (torn retina left eye) Other/Comment: can't see center of anything due to torn retina left eye since 1979, no sX - Renal Hx Dialysis: (MWF) Date of Last Dialysis Treatment: 03/03/17 Hx Renal Failure: Yes - Endocrine/Metabolic Hx Endocrine Disorders: No - Hematological/Oncological Hx Blood Disorders: Yes Hx Anemia: Yes (BT) - Integumentary Hx Dermatological Disorder: No - Musculoskeletal/Rheumatological Hx Musculoskeletal Disorders: Yes Hx Falls: Yes Other/Comment: congenital hip defect - Gastrointestinal Hx Gastrointestinal Disorders: Yes (barretts esophagus) Hx Gall Bladder Disease: Yes Hx Gastroesophageal Reflux: Yes Other/Comment: abdominal pain - Genitourinary/Gynecological Hx Genitourinary Disorders: No - Psychiatric Hx Psychophysiologic Disorder: No Hx Substance Use: No - Surgical History Hx Cardiac Catheterization: Yes (04/04/14) Hx Cholecystectomy: Yes (lap dyllan) Hx Orthopedic Surgery: Yes (hip dislocation) Other/Comment: pericardial window, pericardiocenthesis 2014, c sections x2, T&A , fistulagram - Anesthesia Hx Anesthesia: Yes Hx Anesthesia Reactions: No Hx Malignant Hyperthermia: No - Suicidal Assessment Feels Threatened In Home Enviroment: No Family/Social History - Physician Review Nursing Documentation Reviewed: Yes Family/Social History: No Known Family HX Smoking Status: Light Smoker < 10 Cigarettes Daily Hx Alcohol Use: No Hx Substance Use: No Hx Substance Use Treatment: No Allergies/Home Meds Allergies/Adverse Reactions: Allergies aspirin Allergy (Severe, Verified 02/09/17 01:34) ANAPHYLAXIS ciprofloxacin Allergy (Severe, Verified 02/09/17 01:34) ANAPHYLAXIS [place] And Derivatives Allergy (Severe, Verified 02/09/17 01:34) ANAPHYLAXIS enalapril Allergy (Severe, Verified 02/09/17 01:34) HIVES heparin Allergy (Severe, Verified 02/09/17 01:34) ANAPHYLAXIS latex Allergy (Severe, Verified 02/09/17 01:34) ANAPHYLAXIS Penicillins Allergy (Severe, Verified 02/09/17 01:34) ANAPHYLAXIS Sulfa (Sulfonamide Antibiotics) Allergy (Severe, Verified 02/09/17 01:34) ANAPHYLAXIS levothyroxine sodium [From Levoxyl] Allergy (Intermediate, Verified 02/09/17 01: 34) RASH acetaminophen Allergy (Mild, Verified 02/09/17 01:34) RASH codeine Allergy (Mild, Verified 02/09/17 01:34) RASH enoxaparin Allergy (Mild, Verified 02/09/17 01:34) RASH iodine Allergy (Mild, Verified 02/09/17 01:34) RASH influenza virus vaccine, specific Allergy (Verified 02/09/17 01:34) hives Home Medications: Home Meds Medication Instructions Recorded Confirmed Cinacalcet [Sensipar] 30 mg PO DIN 02/05/14 03/09/17 Rosuvastatin Calcium [Crestor] 20 mg PO DAILY 02/05/14 03/09/17 Esomeprazole Magnesium [Nexium] 40 mg PO DAILY 02/09/17 03/09/17 Levocetirizine Dihydrochloride 5 mg PO DAILY 02/09/17 03/09/17 Metoprolol Tartrate [Lopressor] 25 mg PO BID 02/09/17 03/09/17 Sevelamer Carbonate [Renvela] 800 mg PO TID 02/09/17 03/09/17 Review of Systems - Review of Systems Constitutional: Normal. absent: Fatigue, Weight Change, Fevers Respiratory: Normal. absent: SOB, Cough, Sputum Cardiovascular: Normal. absent: Chest Pain, Palpitations, Edema, Syncope Gastrointestinal: Normal. absent: Abdominal Pain, Stool Changes, Vomiting, Appetite Changes Musculoskeletal: Normal, Other (b/l leg pain and swelling). absent: Arthralgias , Back Pain, Neck Pain Skin: Normal. absent: Rash, Pruritis, Skin Lesions Neurological: Normal. absent: Headache, Dizziness, Focal Weakness Physical Exam - Physical Exam Narrative Physical Exam (Text): 03/10/17 00:38 GENERAL APPEARANCE: Patient is awake, alert, oriented x 3, in mild painful distress. SKIN: Warm, dry; (-) cyanosis. EYES: (-) conjunctival pallor. ENMT: Mucous membranes moist. NECK: (-) tenderness, (-) stiffness, (-) lymphadenopathy, (-) JVD. CHEST AND RESPIRATORY: (-) rash, (-) chest wall tenderness. Lungs: (-) rales , (-) rhonchi, (-) wheezes, (-) rub; breath sounds equal bilaterally. HEART AND CARDIOVASCULAR: (-) irregularity; (-) murmur, (-) gallop, (-) rub. ABDOMEN AND GI: Soft; (-) distention, (-) tenderness, (-) palpable pulsatile mass. EXTREMITIES: (-) deformity; (+) 2+ edema, (+) warm to touch with tenderness to b/l lower legs, (+) mild erythema noted to the R lower leg, (-) calf tenderness. (+) distal pulses. NEURO AND PSYCH: Mental status as above. Cranial nerves grossly intact; strength symmetric. Vital Signs Temp Pulse Resp BP Pulse Ox 03/09/17 23:49 98.2 F 92 H 18 145/77 96 03/09/17 21:20 88 18 150/82 97 03/09/17 19:19 98.7 F 90 16 163/78 H 97 Medical Decision Making ED Course and Treatment: 03/10/17 00:40 56 year old female, whose past medical history includes ESRD on hemodialysis ( Monday/Monday/Monday), hypertension, COPD, degenerative disc disease, and chronic anemia, presents to the emergency department with 1 wk h/o bilateral lower extremity pain with swelling. Previous ED visit reviewed, pt was seen in this ED on 03/04/17 for back pain and LE edema/pain. She had EKG, CXR and US doppler of b/l LE done. EKG done during that visit which showed NSR, CXR showed NAD, and US doppler showed no DVT. Based on history and exam, to consider cellulitis. Plan: - Labs - IV - morphine IV - zofran IV Labs reviewed, pt has a normal WBC. She is due for dialysis tomorrow. Pt's pmd called and case discussed with Dr. Gomez, agrees with plan for inpt admission for possible cellulitis and dialysis tomorrow. Request Dr. Walsh for ID and Dr. Rose for renal. IV vancomycin ordered, bridge orders placed. Pt notified of likely diagnosis of cellulitis, informed of need for inpt admission for IV antibiotics and dialysis tomorrow, which she agrees with. - Lab Interpretations Lab Results: 03/09/17 21:00 03/09/17 21:00 Lab Results 03/09/17 21:00: Sodium 137, Potassium 4.5, Chloride 89 L, Carbon Dioxide 33, Anion Gap 20, BUN 31 H, Creatinine 5.3 H, Est GFR ( Amer) 10, Est GFR ( Non-Af Amer) 8, Random Glucose 103, Calcium 8.9, Total Bilirubin 1.7 H, AST 34, ALT 33, Alkaline Phosphatase 588 H, Total Protein 7.1, Albumin 4.0, Globulin 3.1 , Albumin/Globulin Ratio 1.3 03/09/17 21:00: WBC 6.0, RBC 4.07, Hgb 11.5 L, Hct 37.3, MCV 91.6, MCH 28.3, MCHC 30.8 L, RDW 18.8 H, Plt Count 158, MPV 9.3, Gran % 66.6, Lymph % (Auto) 17.6 L, [place] % (Auto) 9.1 H, Eos % (Auto) 6.2 H, Baso % (Auto) 0.5, Gran # 3.97 , Lymph # 1.1 L, [place] # 0.5, Eos # 0.4, Baso # 0.03 - Medication Orders Current Medication Orders: Vancomycin HCl (Vancomycin 1gm) 1 gm in 250 mls @ 167 mls/hr IVPB STAT STA PRN Reason: Protocol Stop: 03/10/17 01:22 Last Admin: 03/10/17 00:09 Dose: 167 mls/hr Discontinued Medications Morphine Sulfate (Morphine) 4 mg IVP STAT STA Stop: 03/09/17 20:41 Last Admin: 03/09/17 21:01 Dose: 4 mg Re-Assess: [place] Pain Assessment Document 03/09/17 22:01 HI (Rec: 03/09/17 22:58 HI [id number]) Pain Reassessment Is this a pain reassessment? Yes Sleep Is patient sleeping during reassessment? Yes Morphine Sulfate (Morphine) 2 mg IVP STAT STA Stop: 03/09/17 23:53 Last Admin: 03/10/17 00:08 Dose: 2 mg Ondansetron HCl (Zofran Inj) 4 mg IVP STAT STA Stop: 03/09/17 20:41 Last Admin: 03/09/17 21:02 Dose: 4 mg Ondansetron HCl (Zofran Inj) 4 mg IVP STAT STA Stop: 03/09/17 23:53 Last Admin: 03/10/17 00:08 Dose: 4 mg - PA / GEROPSYCHOLOGIST / Resident Statement / has reviewed & agrees with the documentation as recorded. Disposition/Present on Arrival - Present on Arrival Any Indicators Present on Arrival: No History of DVT/PE: No History of Uncontrolled Diabetes: No Urinary Catheter: No History of Decub. Ulcer: No History Surgical Site Infection Following: None - Disposition Have Diagnosis and Disposition been Completed?: Yes Diagnosis: Bilateral leg pain, Cellulitis Disposition: HOSPITALIZED Disposition Time: 22:15 Patient Plan: Admission Patient Problems: Current Active Problems Problem Status Onset Bilateral leg pain Acute Cellulitis Acute Condition: GOOD
[2017-03-09 21:12] LABS: BASO # 0.03 K/mm3 (0.0-2.0); BASO % 0.5 % (0.0-3.0); EOS # 0.4 (0.0-0.7); EOS % 6.2 % (1.5-5.0); GRAN # 3.97 (1.4-6.5); GRAN % 66.6 % (50.0-68.0); HEMOGLOBIN 11.5 gm/dL (12.0-16.0); LYMPH # 1.1 (1.2-3.4); LYMPH % 17.6 % (22.0-35.0); MEAN CELL VOLUME 91.6 fL (80.0-105.0); MEAN CORPUSCULAR HEMOGLOBIN 28.3 pg (25.0-35.0); MEAN CORPUSCULAR HGB CONC 30.8 g/dl (31.0-37.0); MEAN PLATELET VOLUME 9.3 fl (7.0-11.0); MONO # 0.5 (0.1-0.6); MONO % 9.1 % (1.0-6.0); PLATELET COUNT 158 10^3/uL (120.0-450.0); RBC 4.07 10^6/uL (3.5-6.1); RED CELL DISTRIBUTION WIDTH 18.8 % (11.5-14.5)
[2017-03-09 21:21] LABS: ALB/GLOB RATIO 1.3 (1.1-1.8); CALCIUM 8.9 mg/dL (8.4-10.5)
[2017-03-09] MEDS ORDERED: Morphine 2 mg/ml ISec IVP STA (23:52)
[2017-03-09] MEDS ORDERED: Vancomycin 1gm in NS 250ml 1 GM/250 ML BAG IVPB STA (23:53)
[2017-03-10 01:30] VITALS: BMI 24.6
[2017-03-10] MEDS ORDERED: Morphine 2 mg/ml ISec IVP STA ×2 (02:18→09:44)
--- NOTE | 2017-03-10 02:25 | CP.PCM.PN ---
Subjective - Date & Time of Evaluation Date of Evaluation: 03/10/17 Time of Evaluation: 02:19 - Subjective Subjective: Patient was seen at bedside. Complains of pain in both legs. Has no other complaints. No weakness, tingling or numbness. Received MS 2 IV @ midnight, still has pain. This 56 year old woman was admitted with swelling of both legs, pain in legs, cellulitis of both legs. PMH:PUD,Chronic anemia, HTN,COPD,DJD, ESRD on HD, S/P left hip replacement, S/ P cholecystectomy. Objective - Vital Signs/Intake and Output Vital Signs (last 24 hours): Temp Pulse Resp BP Pulse Ox 98.2 F 92 H 18 145/77 96 03/09/17 23:49 03/09/17 23:49 03/10/17 01:15 03/09/17 23:49 03/09/17 23:49 - Labs Labs: Lab Studies 03/09/17 03/09/17 Range/Units 21:00 21:00 WBC 6.0 (4.5-11.0) 10^3/ul RBC 4.07 (3.5-6.1) 10^6/uL Hgb 11.5 L (12.0-16.0) gm/dL Hct 37.3 (36.0-48.0) % MCV 91.6 (80.0-105.0) fL MCH 28.3 (25.0-35.0) pg MCHC 30.8 L (31.0-37.0) g/dl RDW 18.8 H (11.5-14.5) % Plt Count 158 (120.0-450.0) 10^3/uL MPV 9.3 (7.0-11.0) fl Gran % 66.6 (50.0-68.0) % Lymph % (Auto) 17.6 L (22.0-35.0) % [place] % (Auto) 9.1 H (1.0-6.0) % Eos % (Auto) 6.2 H (1.5-5.0) % Baso % (Auto) 0.5 (0.0-3.0) % Gran # 3.97 (1.4-6.5) Lymph # 1.1 L (1.2-3.4) [place] # 0.5 (0.1-0.6) Eos # 0.4 (0.0-0.7) Baso # 0.03 (0.0-2.0) K/mm3 Sodium 137 (132-148) mmol/L Potassium 4.5 (3.6-5.0) mmol/L Chloride 89 L (98-107) mmol/L Carbon Dioxide 33 (21-33) mmol/L Anion Gap 20 (10-20) BUN 31 H (7-21) mg/dL Creatinine 5.3 H (0.5-1.4) mg/dL Est GFR ( Amer) 10 Est GFR (Non-Af Amer) 8 Random Glucose 103 (70-110) mg/dL Calcium 8.9 (8.4-10.5) mg/dL Total Bilirubin 1.7 H (0.2-1.3) mg/dL AST 34 (15-39) U/L ALT 33 (7-56) U/L Alkaline Phosphatase 588 H (38-133) U/L Total Protein 7.1 (5.8-8.3) g/dL Albumin 4.0 (3.0-4.8) g/dL Globulin 3.1 gm/dL Albumin/Globulin Ratio 1.3 (1.1-1.8) - Constitutional Appears: Well, No Acute Distress - Head Exam Head Exam: ATRAUMATIC, NORMAL INSPECTION, NORMOCEPHALIC - Eye Exam Eye Exam: Normal appearance - ENT Exam ENT Exam: Normal External Ear Exam - Neck Exam Neck Exam: Normal Inspection - Respiratory Exam Respiratory Exam: NORMAL BREATHING PATTERN - Cardiovascular Exam Cardiovascular Exam: absent: JVD - GI/Abdominal Exam GI & Abdominal Exam: absent: Distended - Rectal Exam Rectal Exam: Deferred - Exam Additional comments: Deferred. - Extremities Exam Extremities Exam: Calf Tenderness (Yes.), Pedal Edema (Yes.) Additional comments: Both lower extremities swollen , tender. - Back Exam Back Exam: NORMAL INSPECTION - Neurological Exam Neurological Exam: Alert, Oriented x3 - Psychiatric Exam Psychiatric exam: Normal Affect, Normal Mood - Skin Skin Exam: Dry, Erythema. absent: Cyanosis Assessment and Plan - Assessment and Plan (Free Text) Assessment: Bilateral legs pain. Bilateral legs cellulitis. COPD. DJD. Anemia. ESRD on HD. PUD. HTN. Plan: Morphine 2 mg IV stat. Continue present management as per PMD.
[2017-03-10] MEDS: Linezolid 600 mg in D5W 300 ml 600 MG/300 ML BAG IVPB SCH ×2 (10:09→21:56)
--- NOTE | 2017-03-10 10:46 | CP.PCM.CON ---
History of Present Illness - History of Present Illness History of Present Illness: 56 year old female with PMH of HTN, dyslipidemia, ESRD on HD, Peptic ulcer disease, chronic pain syndrome, small brain aneurysm came back to [facility] complaining of pain and swelling of her lower extremities. She was recently seen in the ED for the same complaints about 5 days ago. She denies soaking her legs in water, no swimming, no animal contacts, no insect bites, no headache or dizziness, no nausea or vomiting, no chest pain, no SOB, no abdominal pain, no diarrhea, no dysuria. Infectious Diseases consult is requested to further evaluate and manage. Review of Systems - Review of Systems All systems: reviewed and no additional remarkable complaints except (as per HPI ) Past Patient History - Infectious Disease Hx of Infectious Diseases: None - Tetanus Immunizations Tetanus Immunization: Up to Date - Past Social History Smoking Status: Heavy Smoker > 10 Cigarettes Daily - CARDIAC Hx Cardiac Disorders: Yes (pericardial window) Hx Cardia Arrhythmia: Yes Hx Congestive Heart Failure: Yes Hx Hypercholesterolemia: Yes Hx Hypertension: Yes - PULMONARY Hx Respiratory Disorders: Yes Hx Bronchitis: Yes Hx Pneumonia: Yes - NEUROLOGICAL Hx Neurological Disorder: No - HEENT Hx HEENT Problems: Yes Hx Blind: Yes (parial, left eye) - RENAL Hx Chronic Kidney Disease: Yes Hx Dialysis: Yes (MWF) - ENDOCRINE/METABOLIC Hx Endocrine Disorders: Yes (parathyroid) - HEMATOLOGICAL/ONCOLOGICAL Hx Blood Disorders: Yes Hx Anemia: Yes - INTEGUMENTARY Hx Dermatological Problems: No - MUSCULOSKELETAL/RHEUMATOLOGICAL Hx Musculoskeletal Disorders: Yes Hx Arthritis: Yes (hips) Hx Degenerative Joint Disease: Yes Hx Falls: No Hx Unsteady Gait: Yes (cane) - GASTROINTESTINAL Hx Gastrointestinal Disorders: Yes Hx Gastroesophageal Reflux: Yes - GENITOURINARY/GYNECOLOGICAL Hx Genitourinary Disorders: No - PSYCHIATRIC Hx Psychophysiologic Disorder: No - SURGICAL HISTORY Hx Surgeries: Yes (pericardila window,) Hx Cholecystectomy: Yes Hx Orthopedic Surgery: Yes (bilateral hips) Other/Comment: left arm fistula placemnt, c-sectionx2, tonsilectomy - ANESTHESIA Hx Anesthesia: Yes Hx Anesthesia Reactions: No Hx Malignant Hyperthermia: No Meds Allergies/Adverse Reactions: Allergies Allergy/AdvReac Type Severity Reaction Status Date / Time aspirin Allergy Severe ANAPHYLAXIS Verified 02/09/17 01:34 ciprofloxacin Allergy Severe ANAPHYLAXIS Verified 02/09/17 01:34 [place] And Derivatives Allergy Severe ANAPHYLAXIS Verified 02/09/17 01:34 enalapril Allergy Severe HIVES Verified 02/09/17 01:34 heparin Allergy Severe ANAPHYLAXIS Verified 02/09/17 01:34 latex Allergy Severe ANAPHYLAXIS Verified 02/09/17 01:34 Penicillins Allergy Severe ANAPHYLAXIS Verified 02/09/17 01:34 Sulfa (Sulfonamide Allergy Severe ANAPHYLAXIS Verified 02/09/17 01:34 Antibiotics) levothyroxine sodium Allergy Intermediate RASH Verified 02/09/17 01:34 [From Levoxyl] acetaminophen Allergy Mild RASH Verified 02/09/17 01:34 codeine Allergy Mild RASH Verified 02/09/17 01:34 enoxaparin Allergy Mild RASH Verified 02/09/17 01:34 iodine Allergy Mild RASH Verified 02/09/17 01:34 influenza virus vaccine, Allergy hives Verified 02/09/17 01:34 specific Physical Exam - Constitutional Appears: Non-toxic, No Acute Distress - Head Exam Head Exam: NORMAL INSPECTION - ENT Exam ENT Exam: Mucous Membranes Moist - Neck Exam Neck exam: Negative for: Meningismus - Respiratory Exam Respiratory Exam: Decreased Breath Sounds - Cardiovascular Exam Cardiovascular Exam: +S1, +S2 - GI/Abdominal Exam GI & Abdominal Exam: Soft. absent: Tenderness - Extremities Exam Additional comments: both lower extremities with some swelling, mild erythema, mild increase in warmth Results - Vital Signs Recent Vital Signs: Last Vital Signs Temp 98.2 F 03/09/17 23:49 Pulse 92 H 03/09/17 23:49 Resp 18 03/10/17 01:15 BP 145/77 03/09/17 23:49 Pulse Ox 96 03/09/17 23:49 - Labs Result Diagrams: 03/09/17 21:00 03/09/17 21:00 Assessment & Plan - Assessment and Plan (Free Text) Plan: Assessment Swelling of lower extremities probably related to fluid retention in a patient with end stage renal disease/venous stasis with associated chronic pain syndrome R/O skin and skin structure infection of lower extremities history of atypical pneumonia HTN dysipidemia ESRD on HD Peptic ulcer disease chronic pain syndrome small brain aneurysm Plan started patient on Zyvox pending blood cx, doppler ultrasound of the legs to rule out DVT will monitor clinically
--- NOTE | 2017-03-10 13:30 | RAD ---
PROCEDURE: Right Knee Radiographs. HISTORY: pain COMPARISON: None. FINDINGS: BONES: Normal. No fracture. JOINTS: Normal. No osteoarthritis. JOINT EFFUSION: None. OTHER FINDINGS: None. IMPRESSION: Normal radiographs of the right knee.
--- NOTE | 2017-03-10 13:36 | RAD ---
PROCEDURE: Right Ankle Radiographs. HISTORY: pain / swelling COMPARISON: None FINDINGS: BONES: Normal. No fracture. JOINTS: Normal. No osteoarthritis. Ankle mortise maintained. Talar dome intact SOFT TISSUES: Normal. OTHER FINDINGS: None. IMPRESSION: Normal right ankle radiographs.
--- NOTE | 2017-03-10 14:00 | US ---
HISTORY: Leg pain and swelling. Evaluate for DVT PHYSICIAN(S): Josh Vanegas MD. TECHNIQUE: Duplex sonography and color-flow Doppler with graded compression were used to evaluate the deep venous systems of both lower extremities. The exam is somewhat limited by body habitus and edema. FINDINGS: The visualized deep venous systems of both lower extremities are sonographically normal and compressible. Normal wave forms and augmentation are seen. There is no sonographic evidence for deep venous thrombosis in the visualized segments of both lower extremities. IMPRESSION: No sonographic evidence for deep venous thrombosis in the visualized segments of both lower extremities.
--- NOTE | 2017-03-10 14:05 | US ---
PROCEDURE: Lower extremity HERNAN exam HISTORY: Peripheral vascular disease with pain and claudication. Smoker PHYSICIAN(S): Josh Vanegas MD. FINDINGS: The resting HERNAN's are normal: right, 1.29and left, 1.16. The brachial systolic pressures are symmetric. The high thigh pressures and waveforms are relatively normal. The calf PVR waveforms augment normally. No significant gradients are noted across the thighs. The ankle and metatarsal waveforms are relatively normal and symmetric. No significant pressure gradients are noted across the lower legs. IMPRESSION: 1. Normal HERNAN and PVR examination at rest.
[2017-03-10] MEDS: Rosuvastatin Calcium [Crestor] 20 MG (HOME MED) PO SCH (14:38)
[2017-03-10] MEDS: HYDROmorphone 1 mg/ml ISec IVP PRN ×3 (14:44→21:56)
[2017-03-10 15:30] LABS: BASO # 0.02 K/mm3 (0.0-2.0); BASO % 0.4 % (0.0-3.0); EOS # 0.5 (0.0-0.7); EOS % 10.1 % (1.5-5.0); GRAN # 2.82 (1.4-6.5); GRAN % 57.9 % (50.0-68.0); HEMOGLOBIN 10.3 gm/dL (12.0-16.0); LYMPH # 1.2 (1.2-3.4); LYMPH % 24.6 % (22.0-35.0); MEAN CELL VOLUME 90.7 fL (80.0-105.0); MEAN CORPUSCULAR HEMOGLOBIN 28.3 pg (25.0-35.0); MEAN CORPUSCULAR HGB CONC 31.2 g/dl (31.0-37.0); MEAN PLATELET VOLUME 9.3 fl (7.0-11.0); MONO # 0.3 (0.1-0.6); PLATELET COUNT 125 10^3/uL (120.0-450.0); RBC 3.64 10^6/uL (3.5-6.1); RED CELL DISTRIBUTION WIDTH 18.7 % (11.5-14.5); WHITE BLOOD COUNT 4.9 10^3/ul (4.5-11.0)
[2017-03-10 15:41] LABS: ALB/GLOB RATIO 1.1 (1.1-1.8); ALBUMIN 3.2 g/dL (3.0-4.8); CALCIUM 8.4 mg/dL (8.4-10.5); MAGNESIUM 1.8 mg/dL (1.7-2.2)
--- NOTE | 2017-03-10 16:38 | CON ---
DATE: 03/10/2017 REASON FOR CONSULTATION: Need for dialysis. HISTORY OF PRESENT ILLNESS: A 56-year-old lady known to me from outpatient hemodialysis, who was recently seen in the emergency room with complaints of swelling of her lower extremities. She returned to the emergency room yesterday with the same complaints. She gave no history of fever or chills. No history of any shortness of breath. She denies any nausea or vomiting. She denies any abdominal pain. Her lower extremity Doppler is negative for DVT. Her vital signs, she was afebrile in the emergency room and her blood pressure was normal. Her potassium was found to be 4.5. Consultation was requested for dialysis. PAST MEDICAL/SURGICAL HISTORY: Hypertension, asthma, C diff colitis, ESRD, chronic pain syndrome, and pericardial effusion. FAMILY HISTORY: Hypertension. SOCIAL HISTORY: Smoker. No alcohol use. No IV drug abuse. ALLERGIES: ASPIRIN, CIPROFLOXACIN, ENALAPRIL, HEPARIN, PENICILLIN, SULFA, SYNTHROID, TYLENOL, AND CODEINE. MEDICATIONS AT HOME: List reviewed. REVIEW OF SYSTEMS: All systems are reviewed, pertinent positive are mentioned in history of present illness, unremarkable. PHYSICAL EXAMINATION: GENERAL: Middle-aged lady lying in bed in no acute distress. VITAL SIGNS: Blood pressure 145/77, heart rate 92, respiratory rate 18, and temperature 98.2. HEENT: Normocephalic, atraumatic. NECK: Supple. No JVD. CARDIAC: S1 and S2. Regular rate and rhythm. No murmurs. No rubs. LUNGS: Bilateral equal air entry. Bilateral rhonchi. No rales. ABDOMEN: Soft, nondistended, nontender, bowel sounds present. EXTREMITIES: 1+ pitting edema of the lower extremities. INTAKE AND OUTPUT: Not charted. LABORATORY DATA: WBC 6, hemoglobin 11.5, hematocrit 37, and platelets 158. Sodium 137, potassium 4.5, chloride 89, CO2 33, BUN 31, creatinine 5.3, glucose 103, calcium 8.9, total bilirubin 1.7, AST 34, ALT 33, and albumin 4.0. Normal arterial Dopplers of the lower extremities. Normal venous Doppler. Ankle x-ray normal. Normal knee x-ray. ASSESSMENT: 1. Lower extremity edema. 2. Hypertension. 3. End stage renal disease. 4. Asthma. PLAN: 1. Increased ultrafiltration on dialysis. 2. Continue antihypertensives. 3. Continue phosphate binders. 4. ? Mansi Rose MD
--- NOTE | 2017-03-10 20:20 | HP ---
HISTORY OF PRESENT ILLNESS: The patient is 56 years old, states she has been having right leg pain extending form her hip up until her foot and she has more pain in her left ankle area as compared to left leg. She does have pain in the left leg, but less than the right one. Denies any fever or chills. Denies any trauma, denies any fall. The patient states pain is sever and cannot walk. PAST MEDICAL HISTORY: 1. End-stage renal disease, on hemodialysis. 2. Peptic ulcer diseases. 3. Hypertension. 4. COPD. 5. History of pericardial effusion status post pericardial window. ALLERGIES: THE PATIENT HAS MULTIPLE ALLERGIES INCLUDING ASPIRIN, CIPRO, [place] DERIVATIVES, ENALAPRIL, HEPARIN, LATEX, PENICILLIN, SULFA, LEVOTHYROXINE, ACETAMINOPHEN, CODEINE, LOVENOX, IODINE, INFLUENZA VIRUS. MEDICATION AT HOME: She is on Dilaudid, she is on Tramadol, she is on Renvela, she is on Crestor 10 mg daily, metoprolol 25 twice a day, Nexium 40 mg daily, Sensipar 30 mg at bedtime. SOCIAL HISTORY: She is , lives with her . Actively smoker almost 1 pack a day. She smoked for many years, quit in 2013 and restarted recently. REVIEW OF SYSTEMS: Significant for right leg pain and swelling. PHYSICAL EXAMINATION GENERAL: She is awake and alert, able to communicate. VITAL SIGNS: She is afebrile, pulse 92, respirations 18, and blood pressure 145/77. LUNGS: Bilateral fair air flow. No rhonchi or crackle. HEENT: S1 and S2 audible. ABDOMEN: Soft, nontender, no rebound, no guarding. NEUROLOGIC: The patient is awake and alert, able to communicate. Complaint of left ankle and left knee pain. LABORATORY DATA: WBC is 6.0, hemoglobin 11.5, hematocrit 37, platelet 158. Chemistry: Sodium 137, potassium 4.5, chloride 89, CO2 of 33, BUN 31, creatinine 5.3, blood sugar of 103. Total bilirubin 1.7, alkaline phosphatase . ASSESSMENT: 1. Right knee, hip and ankle pain. 2. Right leg edema. 3. Mild cellulitis. 4. End-stage renal diseases, on hemodialysis. 5. Hypertension. 6. Peptic ulcer disease. 7. Rule out osteoarthritis. 8. Hypothyroidism. PLAN: We will order for arterial Doppler to rule out PVD. I will request Dr. Guerrier to evaluated for radiculopathy, start her on analgesic. I will order for right ankle and right knee x-ray. Start her on a small dose of Dilaudid. We will reevaluate the patient in a.m. Shawn Gomez MD
[2017-03-11] MEDS: HYDROmorphone 1 mg/ml ISec IVP PRN ×3 (02:27→19:15)
[2017-03-11] MEDS: Linezolid 600 mg in D5W 300 ml 600 MG/300 ML BAG IVPB SCH ×2 (10:37→21:34)
[2017-03-11] MEDS: Rosuvastatin Calcium [Crestor] 20 MG (HOME MED) PO SCH (10:37)
--- NOTE | 2017-03-11 11:10 | CON ---
DATE: 03/11/2017 LOCATION: Room 374, bed 2. HISTORY OF PRESENT ILLNESS: The patient is seen for multiple regions of pain of the lower extremities mainly the hips, knees, legs, thighs and low back. The x-rays of her knee show no osteoarthritis on the right knee, which was the worst of the two. No evidence of fracture of the lower extremities. No fracture of the ankle with the most pain which was the right one. She does have pain in both hips. 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 I can move the hips somewhat, but there is no evidence of clinical fracture, but we have to complete the workup with getting x-rays, and she does have back pain with radiculopathy, so I will get a CAT scan of her low back to see if there is any bulging disk or herniated disk or stenosis. So, I will follow her while she is in the hospital. FINAL DIAGNOSIS: Multiple areas of arthralgia and workup for occult fracture versus arthritis. Jarrett Ibarra DO
--- NOTE | 2017-03-11 11:55 | CT ---
PROCEDURE: CT Lumbar Spine without contrast HISTORY: rariculer pain COMPARISON: None. TECHNIQUE: Axial computed tomography images were obtained of the lumbar spine without the use of intravenous contrast. Coronal and sagittal reformatted images were created and reviewed. Radiation dose: Total exam DLP = 385 mGy-cm. This CT exam was performed using one or more of the following dose reduction techniques: Automated exposure control, adjustment of the mA and/or kV according to patient size, and/or use of iterative reconstruction technique. FINDINGS: VERTEBRAE: Unremarkable. No fracture. Normal alignment. DISCS/SPINAL CANAL/NEURAL FORAMINA: L1-2: Unremarkable. L2-3: Unremarkable. L3-4: Unremarkable. L4-5: Unremarkable. L5-S1: Disc degeneration without stenosis. Mild bilateral foraminal stenosis PARASPINAL SOFT TISSUES: Unremarkable. OTHER FINDINGS: None. IMPRESSION: No acute findings. Disc degeneration and foraminal stenosis at L5-S1
--- NOTE | 2017-03-11 12:46 | PN ---
SUBJECTIVE: The patient is currently seen comfortable lying supine in bed on 3-R. She remains on IV antibiotic therapy, very mild cellulitis of her lower extremity. She has not had any diarrhea. She continues to complain of mild headaches, which have been chronic in nature. The patient had an uneventful dialysis yesterday in the hospital. MEDICATIONS: Medication list reviewed. The patient is currently on Dilaudid, Lopressor, Renagel, Crestor, Sensipar, Ultram, and Zyvox. PHYSICAL EXAMINATION: INTAKE/OUTPUT: Intake of 370 and output with hemodialysis. VITAL SIGNS: Blood pressure is 134/77, temperature is 98.6, and respiratory rate is 18 with a pulse of 70. HEENT: Shows her to be normocephalic and atraumatic. Conjunctivae are pink. Sclerae are nonicteric. NECK: Supple. No neck vein distention. CARDIOVASCULAR: Normal S1 and S2. No murmurs, rubs, or gallops noted. CHEST: Clear to auscultation and percussion. No rales. No rhonchi. No wheezing. ABDOMEN: Soft. Bowel sounds are normal. No rebound, no guarding, and no masses. EXTREMITIES: Left upper extremity AV fistula. Positive thrill and positive bruit. Lower extremity showed some trace edema with no significant erythema and perhaps only mild increased temperature to touch. LABORATORY DATA AND IMAGING: X-rays of her right ankle and right knee are negative. Lower extremity arterial and venous Doppler studies are negative. Microbiology and blood cultures are negative at 24 hours. Labs: CBC;white blood cell count is normal at 4.9, hemoglobin is 10.2, and platelet count of 125,000. Chemistries predialysis yesterday, BUN of 25 with a creatinine of 4.3, and electrolytes were acceptable. Calcium, phosphorus, and magnesium were normal. Bilirubin is 1.4. Elevated alkaline phosphatase and AST and ALT are normal. Albumin 3.2. ASSESSMENT: 1. End-stage renal disease. The patient will continue Monday, Monday, and Monday dialysis. 2. History of hypertension, blood pressure controlled on present medical therapy. 3. Possible mild cellulitis of her lower extremity. The patient will continue Zyvox. The patient has been seen by infectious disease. 4. History of peptic ulcer disease with reflux, stable. 5. History of chronic headache, currently stable. 6. History of secondary hyperparathyroidism, currently stable on renal diet and binder therapy. 7. History of anemia, secondary to chronic kidney disease, currently stable. 8. History of pericardial effusion, status post pericardial window, currently stable. PLAN: 1. We will continue patient on 3 times a week dialysis. 2. Her next dialysis is scheduled for Monday on 03/13/2017. 3. She will likely be an inpatient, this dialysis will take place in the hospital. 4. Continue IV antibiotic therapy. 5. Follow up blood cultures. 6. Continue binder therapy. 7. We will dose Aranesp as per protocol on dialysis. Deon Mathews MD MTDD
--- NOTE | 2017-03-11 12:51 | RAD ---
PROCEDURE: Pelvis three views HISTORY: pain bilaterl COMPARISON: TECHNIQUE: AP and oblique views FINDINGS: There is deformity of both femoral heads consistent with a chronic dysplasia. There is flattening of the femoral heads and a shortened femoral neck. There are no acute findings. IMPRESSION: There is deformity of both femoral heads consistent with a chronic dysplasia. There is flattening of the femoral heads and a shortened femoral neck.
--- NOTE | 2017-03-11 14:08 | CP.PCM.PN ---
Subjective - Date & Time of Evaluation Date of Evaluation: 03/11/17 Time of Evaluation: 12:40 - Subjective Subjective: Still with leg pain, no fevers overnight. Objective - Vital Signs/Intake and Output Vital Signs (last 24 hours): Temp Pulse Resp BP Pulse Ox 98.6 F 70 18 134/77 98 03/11/17 06:00 03/11/17 06:00 03/11/17 06:00 03/11/17 06:00 03/11/17 06:00 Intake and Output: 03/11/17 03/11/17 06:59 18:59 Intake Total 0 Balance 0 - Medications Medications: Current Medications Cinacalcet (Sensipar) 30 mg PO DIN [facility] Last Admin: 03/10/17 17:14 Dose: Not Given Hydromorphone HCl (Dilaudid) 1 mg IVP Q4H PRN PRN Reason: Pain, moderate (4-7) Last Admin: 03/11/17 02:27 Dose: 1 mg Linezolid (Zyvox 600mg/300ml D5w) 600 mg in 300 mls @ 200 mls/hr IVPB Q12 [facility] PRN Reason: Protocol Stop: 03/17/17 10:01 Last Admin: 03/10/17 21:56 Dose: 200 mls/hr Metoprolol Tartrate (Lopressor) 25 mg PO BID [facility] Last Admin: 03/10/17 18:07 Dose: 25 mg Rosuvastatin Calcium [Crestor] 20 Mg ( Home Med) 20 mg PO DAILY [facility] Last Admin: 03/10/17 14:38 Dose: Not Given Sevelamer HCl (Renagel) 800 mg PO TID [facility] Last Admin: 03/10/17 14:38 Dose: Not Given Tramadol HCl (Ultram) 50 mg PO Q6 PRN PRN Reason: Pain, moderate (4-7) - Labs Labs: 03/10/17 14:25 03/10/17 14:25 - Constitutional Appears: Non-toxic, No Acute Distress - Head Exam Head Exam: NORMAL INSPECTION - ENT Exam ENT Exam: Mucous Membranes Moist - Neck Exam Neck Exam: absent: Lymphadenopathy, Meningismus - Respiratory Exam Respiratory Exam: Decreased Breath Sounds - Cardiovascular Exam Cardiovascular Exam: +S1, +S2 - GI/Abdominal Exam GI & Abdominal Exam: Soft. absent: Tenderness Assessment and Plan - Assessment and Plan (Free Text) Plan: Assessment Swelling of lower extremities probably related to fluid retention in a patient with end stage renal disease/venous stasis with associated chronic pain syndrome R/O skin and skin structure infection of lower extremities R/O claudication from peripheral vascular disease probable arthritis of the hips and knees history of atypical pneumonia HTN dysipidemia ESRD on HD Peptic ulcer disease chronic pain syndrome small brain aneurysm Plan continue Zyvox (day 2) to complete a 5 day course; blood cx are negative; doppler ultrasound of the legs does not show DVT will continue to monitor clinically
--- NOTE | 2017-03-11 15:00 | PN ---
DATE: SUBJECTIVE: The patient is 56-year-old seen and examined. She stated her right leg pain and swelling is better. No nausea, vomiting. No diarrhea. Slight abdominal discomfort. PHYSICAL EXAMINATION GENERAL: She is awake and alert, able to communicate. VITAL SIGNS: She is afebrile, pulse 70, respirations 18, blood pressure 134/77. LUNGS: Bilateral fair air flow. No rhonchi or crackles. HEART: S1 and S2 audible. ABDOMEN: Soft, nontender. No rebound, no guarding. EXTREMITIES: Right leg +1 edema. NEUROLOGIC: She is awake and alert, communicative. LABORATORY DATA: There is no new labs available today. However, she had x-ray of the ankle done and knee done that is negative. X-ray of the pelvis and CT of the lumbar spine is pending. ASSESSMENT: 1. Right leg edema. Etiology unknown. Right leg pain etiology is still undetermined, probably arthralgia. 2. End-stage renal disease on hemodialysis. 3. Chronic obstructive lung disease. 4. Active smoker. 5. Arterial leg Doppler done, no evidence of deep venous thrombosis. PLAN: We will continue patient on analgesics. She is receiving Dilaudid and she is on Zyvox. Request for physical therapy evaluation and once the workup is available, we will make further disposition plan. Shawn Gomez MD
[2017-03-12] MEDS: Linezolid 600 mg in D5W 300 ml 600 MG/300 ML BAG IVPB SCH (09:53)
[2017-03-12] MEDS: Rosuvastatin Calcium [Crestor] 20 MG (HOME MED) PO SCH (09:54)
[2017-03-12] MEDS: HYDROmorphone 1 mg/ml ISec IVP PRN ×2 (11:35→20:47)
[2017-03-13] MEDS: Linezolid 600 mg in D5W 300 ml 600 MG/300 ML BAG IVPB SCH ×3 (00:04→09:58)
--- NOTE | 2017-03-13 01:11 | PN ---
DATE: 03/12/2017 SUBJECTIVE: Ms. Kraus is a 56-year-old female with end-stage renal disease. She was admitted with right leg swelling and pain. She has chronic anemia. Her right leg Doppler is negative for DVT. No fever, no cough with expectoration. PAST MEDICAL HISTORY: End-stage renal disease, on hemodialysis; peptic ulcer disease; hypertension; COPD; pericardial effusion. ALLERGIES: MULTIPLE MEDICATIONS LISTED ON OCT. SOCIAL HISTORY: Active smoker. Smokes 1 pack a day. PERSONAL HISTORY: Lives at home with her . REVIEW OF SYSTEMS: As per HPI. Rest of 12-point review of systems reviewed and negative. MEDICATIONS: Sensipar 30 mg daily, Dilaudid 1 mg q. 4 hours p.r.n., Zyvox 600 mg q. 12 hours, Lopressor 25 mg p.o. b.i.d., Zofran 4 mg IV q. 6 hours p.r.n., Renagel 800 mg p.o. t.i.d., and Ultram 50 mg q. 6 hours p.r.n. LABORATORY DATA: White count 4.9, hemoglobin 10.3, hematocrit 33, and platelet count 125. Sodium 135, potassium 4, BUN 25, creatinine 4.3. Total bilirubin 1.4, alkaline phosphatase 458. PHYSICAL EXAMINATION GENERAL: Comfortable in bed, in no acute distress. VITAL SIGNS: Temperature 97.9, heart rate 67 per minute, blood pressure 129/75, respiratory rate 18 per minute, oxygen saturation 98% on room air. HEENT: Normal. Mucosa, pallor positive. NECK: No lymphadenopathy. CHEST: Air entry present and equal bilateral. CARDIOVASCULAR: S1, S2 normal. No murmur, no gallop. ABDOMEN: Soft, nontender. No hepatosplenomegaly. EXTREMITIES: Right extremity swelling decreased. Left extremity, no swelling SPINE: Nontender. LYMPHADENOPATHY: None. ASSESSMENT AND PLAN: Right lower leg cellulitis, currently on IV antibiotic, Zyvox. ID following. Continue current medications. She has end-stage renal disease, on hemodialysis. Renal following. Pain control with current regimen of Dilaudid. Blood pressure control with current medications. Encourage ambulation. Bedside physical therapy. Chelsy Dominguez MD
--- NOTE | 2017-03-13 08:18 | CON ---
DATE: 03/12/2017 ADDENDUM I ordered CAT scan of her back and x-rays of her hips. CAT scan of the back shows mild arthritis and stenosis of the low back with degenerative changes and foraminal stenosis of L5-S1, but no reason for any surgery if needed. The main problem is the hips. The x-rays of the bilateral hips show that she has osteoarthritis of the femoral-acetabular joints aggravated by the dysplasia. There is more arthritis on the right hip than the left hip, and we had recently taken josephine out of the hips that were used in osteotomy years ago, but right now, not a surgical candidate because of her renal disease and cardiac disease. If it becomes stable, then we could probably do total hip, she would need bilateral total hips. 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 Follow her and when she has medically improved, we could consider total hip replacement. Jarrett Ibarra DO
[2017-03-13] MEDS: Rosuvastatin Calcium [Crestor] 20 MG (HOME MED) PO SCH (10:05)
[2017-03-13 10:50] LABS: BASO # 0.02 K/mm3 (0.0-2.0); BASO % 0.2 % (0.0-3.0); EOS % 0.2 % (1.5-5.0); GRAN # 8.83 (1.4-6.5); GRAN % 86.4 % (50.0-68.0); HEMOGLOBIN 12.7 g/dL (12.0-16.0); LYMPH # 0.7 (1.2-3.4); LYMPH % 7.2 % (22.0-35.0); MEAN CORPUSCULAR HEMOGLOBIN 28.7 pg (25.0-35.0); MEAN CORPUSCULAR HGB CONC 32.6 g/dl (31.0-37.0); MEAN PLATELET VOLUME 9.8 fl (7.0-11.0); MONO # 0.6 (0.1-0.6); PLATELET COUNT 123 10^3/uL (120.0-450.0); RBC 4.42 10^6/uL (3.5-6.1); WHITE BLOOD COUNT 10.2 10^3/ul (4.5-11.0)
[2017-03-13 11:02] LABS: ALB/GLOB RATIO 1.3 (1.1-1.8); ALBUMIN 3.6 g/dL (3.0-4.8); CALCIUM 8.6 mg/dL (8.4-10.5); MAGNESIUM 1.9 mg/dL (1.7-2.2)
[2017-03-13] MEDS ORDERED: Dextrose 50% SYRINGE Inj (50 ml) IVP STA (11:20)
--- NOTE | 2017-03-13 13:38 | PN ---
SUBJECTIVE: The patient is a 56-year-old seen and examined. She stated her leg pain is better now. She has hip pain. Denies any weakness or numbness in arms or legs. No abdominal pain. No nausea or vomiting. PHYSICAL EXAMINATION: VITAL SIGNS: She is afebrile, pulse 63, respirations 17, blood pressure 148/74. LUNGS: Bilateral fair air flow. No rhonchi or crackles. HEART: S1 and S2 audible. ABDOMEN: Soft, nontender. No rebound, no guarding. NEUROLOGIC: The patient is awake and alert, able to communicate. EXTREMITIES: Her bilateral leg swelling has improved. She has decreased range of motion because of her pain in the right hip. LABORATORY DATA: WBC is 10.2, hemoglobin 12.7, hematocrit 38.9, platelet 123. Chemistry: Sodium 126, potassium 6.0, chloride 87, CO2 of 27, BUN 44, creatinine 7.1, blood sugar of 45. CT scan of the lumbar spine showed degenerative disk disease at L5 and S1 and x-ray of her pelvis showed deformity of both femoral heads consistent with chronic dysplasia, of the femoral head and shortened femoral neck. ASSESSMENT: 1. Bilateral leg edema improving. Bilateral hip pain more on the right side than the left. 2. Bilateral femoral dysplasia and osteoarthritis. 3. End-stage renal disease on hemodialysis. 4. Hypertension. 5. Peptic ulcer disease. PLAN: Currently, the patient is on Zyvox although her cultures are negative. We will discuss with the ID for the duration of antibiotics, and I will request for TCU evaluation. If she is a candidate she can be transfer to TCU, but if she is stable enough from physical therapy point of view, we can make discharge plan. Shawn Gomez MD
[2017-03-13 16:46] VITALS: BP 140/66; PULSE 60; RESP 18; TEMP 98.3; O2SAT 96
--- NOTE | 2017-03-13 16:50 | PN ---
DATE: 03/13/2017 SUBJECTIVE: The patient is seen in the dialysis unit. She is awake, she is groggy, face is fussy. PHYSICAL EXAMINATION: VITAL SIGNS: Blood pressure 148/74, heart rate 62, respiratory rate 17, temperature 97.9. HEENT: Normocephalic, atraumatic. NECK: Supple, no JVD. LUNGS: Bilateral rhonchi, bilateral equal expansion, basal rales. CARDIAC: S1 and S2, regular rate and rhythm, no murmur, no rub. ABDOMEN: Obese, distended, soft, nontender, bowel sounds present. EXTREMITIES: No lower extremity edema, tenderness to touch over the lower legs. INTAKE AND OUTPUT: Not charted. LABORATORY DATA: WBC 10, hemoglobin 12.7, hematocrit 39, platelets 123. Sodium 126, potassium 6.0, chloride 87, CO2 of 18, BUN 44, creatinine 7.1, glucose 45, calcium 8.6, phosphorus 6.8, magnesium 1.9, albumin 3.6. Blood cultures no growth. CURRENT MEDICATIONS: Dilaudid, Lopressor, Renagel, Sensipar, tramadol, Zofran, Zyvox. ASSESSMENT: 1. Bilateral lower leg extremity edema, resolved. 2. Bilateral hip pain. 3. End-stage renal disease. 4. Severe hyperkaliemia. 5. Hypoglycemia. 6. Hyperphosphatemia 7. Hypertension. 8. Peptic ulcer disease. PLAN: 1. Change bath to potassium 1 in the last hour of dialysis. 2. Increase Renagel to 2 tablets 3 times a day with meals. 3. Discontinue antibiotics ?. 4. Stable dialysis. 5. Unclear etiology of lower extremity edema. Mansi Rose MD
--- NOTE | 2017-03-15 04:40 | DS ---
HISTORY OF PRESENT ILLNESS: The patient is 56 years old. She was admitted with the leg pain. Workup was done, which shows generalized osteoarthritis and was seen by orthopedic. For further details, see the notes on 03/13/2017. The patient was presented to TCU. She was accepted, so she was transferred to TCU for the rehab. Shawn Gomez MD
== END 2017-03-13 17:03 | DRG 602 ==
LOC: ED 18:58 → ERH 22:30 → 3RSO 03-10 01:30
PROVIDERS: ADMIT Internal Medicine; ATTEND Internal Medicine
PROC: 5A1D60Z (ICD-10-PCS; principal; 2017-03-10)
DX: L03.115 Cellulitis of right lower limb (principal); N18.6 End stage renal disease; I13.2 Hypertensive heart and chronic kidney disease with heart failure and with stage 5 chronic kidney disease, or end stage renal disease; I67.1 Cerebral aneurysm, nonruptured; N25.81 Secondary hyperparathyroidism of renal origin; M15.9 Polyosteoarthritis, unspecified; L03.116 Cellulitis of left lower limb; I50.9 Heart failure, unspecified; H54.42 Blindness, left eye, normal vision right eye; I87.8 Other specified disorders of veins; J44.9 Chronic obstructive pulmonary disease, unspecified; K21.9 Gastro-esophageal reflux disease without esophagitis; K22.70 Barrett's esophagus without dysplasia; K27.9 Peptic ulcer, site unspecified, unspecified as acute or chronic, without hemorrhage or perforation; G89.4 Chronic pain syndrome; F17.210 Nicotine dependence, cigarettes, uncomplicated; E83.39 Other disorders of phosphorus metabolism; E78.5 Hyperlipidemia, unspecified; E78.00 Pure hypercholesterolemia, unspecified; E16.2 Hypoglycemia, unspecified; E03.9 Hypothyroidism, unspecified; D63.1 Anemia in chronic kidney disease; Z79.899 Other long term (current) drug therapy; Z87.01 Personal history of pneumonia (recurrent); Z90.49 Acquired absence of other specified parts of digestive tract; Z96.642 Presence of left artificial hip joint; Z99.2 Dependence on renal dialysis; M51.37 Other intervertebral disc degeneration, lumbosacral region; H33.312 Horseshoe tear of retina without detachment, left eye; Z88.6 Allergy status to analgesic agent; Z88.1 Allergy status to other antibiotic agents; Z91.040 Latex allergy status; Z88.5 Allergy status to narcotic agent; Z88.0 Allergy status to penicillin; Z88.2 Allergy status to sulfonamides; Z88.7 Allergy status to serum and vaccine; Z88.8 Allergy status to other drugs, medicaments and biological substances; Z91.018 Allergy to other foods; M25.551 Pain in right hip; M25.561 Pain in right knee; M25.571 Pain in right ankle and joints of right foot; R26.81 Unsteadiness on feet; Z87.892 Personal history of anaphylaxis; J45.909 Unspecified asthma, uncomplicated; M16.2 Bilateral osteoarthritis resulting from hip dysplasia; M25.552 Pain in left hip; E87.5 Hyperkalemia

== ENCOUNTER 2017-03-13 17:03 | Inpatient (IN) | payer OTHER, BC ==
[2017-03-13] MEDS: HYDROmorphone 1 mg/ml ISec IVP PRN (21:40)
[2017-03-13] MEDS: Linezolid 600 mg in D5W 300 ml 600 MG/300 ML BAG IVPB SCH (21:54)
[2017-03-14] MEDS: HYDROmorphone 1 mg/ml ISec IVP PRN ×3 (05:29→21:08)
[2017-03-14] MEDS ORDERED: ROSUVASTATIN CALCIUM 20 MG PO SCH (10:00)
[2017-03-14] MEDS: Linezolid 600 mg in D5W 300 ml 600 MG/300 ML BAG IVPB SCH ×2 (10:32→17:54)
--- NOTE | 2017-03-14 15:30 | CP.PCM.CON ---
History of Present Illness - History of Present Illness History of Present Illness: 56 year old female with PMH of HTN, dyslipidemia, ESRD on HD, Peptic ulcer disease, chronic pain syndrome, small brain aneurysm was initially admitted in [facility] because of pain in both lower extremities. The patient has lower extremity edema and got better during the admission. She is now transferred to [facility] for continued medical therapy and physical rehab. Infectious Diseases consult is requested to further evaluate and manage. Review of Systems - Review of Systems All systems: reviewed and no additional remarkable complaints except (as per HPI ) Past Patient History - Infectious Disease Hx of Infectious Diseases: None - Tetanus Immunizations Tetanus Immunization: Up to Date - Past Social History Smoking Status: Smoker Currrent Status Unknown - CARDIAC Hx Congestive Heart Failure: Yes Hx Hypertension: Yes - PULMONARY Hx Chronic Obstructive Pulmonary Disease (COPD): Yes - NEUROLOGICAL Hx Neurological Disorder: No - HEENT Hx HEENT Problems: Yes Hx Blind: Yes (parial, left eye) - RENAL Hx Renal Failure: Yes - ENDOCRINE/METABOLIC Hx Endocrine Disorders: Yes (parathyroid) - HEMATOLOGICAL/ONCOLOGICAL Hx Blood Disorders: Yes Hx Anemia: Yes - INTEGUMENTARY Hx Dermatological Problems: No - MUSCULOSKELETAL/RHEUMATOLOGICAL Hx Falls: No - GASTROINTESTINAL Hx Gastrointestinal Disorders: Yes Hx Gastroesophageal Reflux: Yes - GENITOURINARY/GYNECOLOGICAL Hx Genitourinary Disorders: No - PSYCHIATRIC Hx Psychophysiologic Disorder: No - SURGICAL HISTORY Hx Surgeries: Yes (pericardila window,) Hx Cholecystectomy: Yes Hx Orthopedic Surgery: Yes (bilateral hips) Other/Comment: left arm fistula placemnt, c-sectionx2, tonsilectomy - ANESTHESIA Hx Anesthesia: Yes Hx Anesthesia Reactions: No Hx Malignant Hyperthermia: No Meds Allergies/Adverse Reactions: Allergies Allergy/AdvReac Type Severity Reaction Status Date / Time aspirin Allergy Severe ANAPHYLAXIS Verified 02/09/17 01:34 ciprofloxacin Allergy Severe ANAPHYLAXIS Verified 02/09/17 01:34 [place] And Derivatives Allergy Severe ANAPHYLAXIS Verified 02/09/17 01:34 enalapril Allergy Severe HIVES Verified 02/09/17 01:34 heparin Allergy Severe ANAPHYLAXIS Verified 02/09/17 01:34 latex Allergy Severe ANAPHYLAXIS Verified 02/09/17 01:34 Penicillins Allergy Severe ANAPHYLAXIS Verified 02/09/17 01:34 Sulfa (Sulfonamide Allergy Severe ANAPHYLAXIS Verified 02/09/17 01:34 Antibiotics) levothyroxine sodium Allergy Intermediate RASH Verified 02/09/17 01:34 [From Levoxyl] acetaminophen Allergy Mild RASH Verified 02/09/17 01:34 codeine Allergy Mild RASH Verified 02/09/17 01:34 enoxaparin Allergy Mild RASH Verified 02/09/17 01:34 iodine Allergy Mild RASH Verified 02/09/17 01:34 influenza virus vaccine, Allergy hives Verified 02/09/17 01:34 specific - Medications Medications: Current Medications Cinacalcet (Sensipar) 30 mg PO DIN [facility] Home Med (Home Med) 1 unit PO DAILY [facility] PRN Reason: Protocol Hydromorphone HCl (Dilaudid) 1 mg IVP Q4H PRN; Protocol PRN Reason: Pain, moderate (4-7) Linezolid (Zyvox 600mg/300ml D5w) 600 mg in 300 mls @ 200 mls/hr IVPB Q12 [facility] PRN Reason: Protocol Stop: 03/13/17 23:29 Metoprolol Tartrate (Lopressor) 25 mg PO 0800,1700 [facility] PRN Reason: Protocol Ondansetron HCl (Zofran Inj) 4 mg IVP Q6H PRN; Protocol PRN Reason: Nausea/Vomiting Sevelamer HCl (Renagel) 1,600 mg PO TID [facility] Tramadol HCl (Ultram) 50 mg PO Q6 PRN; Protocol PRN Reason: Pain, moderate (4-7) Physical Exam - Constitutional Appears: Non-toxic, No Acute Distress - Head Exam Head Exam: NORMAL INSPECTION - ENT Exam ENT Exam: Mucous Membranes Moist - Neck Exam Neck exam: Negative for: Lymphadenopathy, Meningismus - Respiratory Exam Respiratory Exam: Decreased Breath Sounds - Cardiovascular Exam Cardiovascular Exam: +S1, +S2 - GI/Abdominal Exam GI & Abdominal Exam: Soft. absent: Tenderness - Extremities Exam Additional comments: both lower extremities with decreased swelling and pain Results - Vital Signs Recent Vital Signs: Last Vital Signs Temp Pulse Resp 18 03/13/17 18:51 BP Pulse Ox Assessment & Plan - Assessment and Plan (Free Text) Plan: Assessment Swelling of lower extremities probably related to fluid retention in a patient with end stage renal disease/venous stasis with associated chronic pain syndrome consider skin and skin structure infection of lower extremities, clinically improved probable arthritis of the hips and knees history of atypical pneumonia HTN dysipidemia ESRD on HD Peptic ulcer disease chronic pain syndrome small brain aneurysm Plan continue Zyvox (day 5) to complete a 5 day course; blood cx are negative; doppler ultrasound of the legs does not show DVT - will d/c antibiotics after today will continue to monitor clinically
--- NOTE | 2017-03-14 15:33 | PN ---
DATE: SUBJECTIVE: The patient is currently seen lying comfortable in bed in the TCU. She is continuing on her course of antibiotics for her lower extremity cellulitis. She is not having any diarrhea or headaches today. She had an uneventful dialysis yesterday. MEDICATIONS: Medication list reviewed. The patient is currently on p.r.n. Dilaudid, Crestor, Lopressor, Renagel, Sensipar, Ultram, Zofran p.r.n. and Zyvox IV. OBJECTIVE: VITAL SIGNS: Blood pressure 139/70, temperature 98.4, pulse 59 with a respiratory rate of 18, oxygen saturation is 97%. HEENT: Shows her to be normocephalic and atraumatic. Conjunctivae are pink. Sclerae are nonicteric. NECK: Supple. No neck pain distension. CARDIOVASCULAR: Normal S1 and S2. No murmurs, rubs or gallops. CHEST: Clear to auscultation and percussion. No rales. No rhonchi. No wheezing. ABDOMEN: Soft. Bowel sounds are normal. No rebound, no guarding, no masses. EXTREMITIES: Show a left upper extremity AV fistula. Positive thrill and positive bruit. Lower extremity shows no edema. No erythema and no increased warmth. LABORATORY DATA AND IMAGING: Labs were done yesterday, predialysis. White blood cell count 10.2 with a hemoglobin of 12.7, platelet count of 123,000. Chemistry: Sodium 126, potassium 6.0, chloride 87 with a CO2 of 18, BUN is 44 with a creatinine of 7.1, glucose was 41, repeat fingerstick were up to 86. Calcium was 8.6, phosphorous is evaluated at 6.8. The patient is back on binder therapy. Microbiology: All cultures were negative at four days. ASSESSMENT: 1. End-stage renal disease. The patient will continue Monday, Monday, Monday dialysis. She will have dialysis tomorrow in [facility]. 2. Hypertension. Blood pressure controlled on present medication. 3. Resolving cellulitis of her lower extremity. The patient will complete a course of IV Zyvox. 4. History of peptic ulcer disease and reflux. Currently stable. 5. History of chronic headache. Currently asymptomatic. 6. History of secondary hypothyroidism. Currently stable on renal diet and binder therapy. I expect her phosphorus level to fall back to an acceptable range with compliance with diet and taking double dose of binders. 7. History of anemia secondary to chronic kidney disease, hemoglobin is stable. 8. History of hyperkalemia. I reinforced the 2.0 gram potassium diet included in her renal diet. The patient to be careful about taking food from outside. 9. History of pericardial effusion, status post pericardial window, currently stable. PLAN: 1. Hemodialysis tomorrow as part of Monday, Monday, Monday schedule. 2. Complete the course of antibiotic therapy IV, perhaps switch over to oral antibiotic therapy if patient will be discharged prior to the anticipated full stay in the [facility]. 3. Continue to follow blood cultures one more day. 4. Emphasized diet restrictions and binder therapy. 5. Aranesp per protocol. Hemoglobin is excellent, so at present the patient requires no erythropoietin. Deon Mathews MD
--- NOTE | 2017-03-15 02:13 | HP ---
HISTORY OF PRESENT ILLNESS: The patient is 56 years old who came to the emergency room because of bilateral leg swelling, left more than the right. Complaining of generalized aches and pains, more so in the ankles and hip and knees. The patient was evaluated by Dr. Ibarra who recommended CT scan of the pelvis and lumbosacral area showing degenerative disc disease and generalized osteoarthritis complaining of difficulty walking, so transferred to TCU for rehab. PAST MEDICAL HISTORY: She has significant past medical history of: 1. Hypertension. 2. Hyperlipidemia. 3. End-stage renal disease on hemodialysis. 4. History of gastritis. 5. Chronic back pain. 6. History of bilateral hip dislocation status post total right knee replacement. 7. History of small brain aneurysm being monitored by [facility]. 8. Chronic anemia. ALLERGIES: SHE HAS MULTIPLE ALLERGIES INCLUDING ASPIRIN, CIPRO, CITRUS DERIVATIVE, INFLUENCE VACCINE, IODINE, LOVENOX, CODEINE, ACETAMINOPHEN, LEVOTHYROXINE, SULFA, PENICILLIN, LATEX, HEPARIN, AND ENALAPRIL. SOCIAL HISTORY: She lives with her fiance. She has a grown up son. She is actively smoker. Denies alcohol use. MEDICATIONS: At home, she is on tramadol 50 mg q.6h., Renvela 800 mg three times a day, Crestor 20 mg daily, metoprolol 25 mg twice a day, Xyzal 5 mg daily, Nexium 40 mg daily, Sensipar 30 mg daily. REVIEW OF SYSTEMS: Significant for bilateral ankle pain, bilateral leg swelling, that has improved, and bilateral knee pain. PHYSICAL EXAMINATION: GENERAL: She is awake and alert, able to communicate. VITAL SIGNS: She is afebrile. Pulse 63, respiration 14, blood pressure 148/72. LUNGS: Bilaterally good air flow. No rhonchi or crackle. HEART: S1 and S2 audible. No murmur. ABDOMEN: Soft, nontender. No rebound, no guarding. NEUROLOGIC: The patient is awake and alert. Able to communicate. Moves all extremities. ASSESSMENT: 1. Bilateral leg edema that has improved. 2. Hypertension. 3. Chronic anemia. 4. 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 PLAN: Continue ambulation. Continue on current medication. Continue physical therapy. We will reevaluate the patient in a.m. Shawn Gomez MD [facility] # [id number]
[2017-03-15] MEDS: HYDROmorphone 1 mg/ml ISec IVP PRN ×2 (04:37→18:33)
[2017-03-15] MEDS: Linezolid 600 mg in D5W 300 ml 600 MG/300 ML BAG IVPB SCH (06:21)
--- NOTE | 2017-03-15 13:40 | CP.PCM.PN ---
Subjective - Date & Time of Evaluation Date of Evaluation: 03/15/17 Time of Evaluation: 08:10 - Subjective Subjective: Comfortable, much improved pain in the legs, no fevers. Objective - Vital Signs/Intake and Output Vital Signs (last 24 hours): Temp Pulse Resp BP Pulse Ox 98.3 F 57 L 20 118/68 100 03/15/17 11:32 03/15/17 11:32 03/15/17 11:32 03/15/17 11:32 03/15/17 11:32 - Medications Medications: Current Medications Cinacalcet (Sensipar) 30 mg PO DIN [facility] Last Admin: 03/14/17 17:42 Dose: 30 mg Hydromorphone HCl (Dilaudid) 1 mg IVP Q4H PRN; Protocol PRN Reason: Pain, moderate (4-7) Last Admin: 03/15/17 04:37 Dose: 1 mg Linezolid (Zyvox 600mg/300ml D5w) 600 mg in 300 mls @ 200 mls/hr IVPB 0600, 1800 [facility] PRN Reason: Protocol Stop: 03/16/17 18:01 Last Admin: 03/15/17 06:21 Dose: 200 mls/hr Metoprolol Tartrate (Lopressor) 25 mg PO 0800,1700 [facility] PRN Reason: Protocol Last Admin: 03/15/17 09:00 Dose: Not Given Ondansetron HCl (Zofran Inj) 4 mg IVP Q6H PRN; Protocol PRN Reason: Nausea/Vomiting Last Admin: 03/14/17 19:27 Dose: 4 mg Sevelamer HCl (Renagel) 1,600 mg PO 0800,1200,1700 [facility] Last Admin: 03/15/17 12:42 Dose: 1,600 mg Tramadol HCl (Ultram) 50 mg PO Q6 PRN; Protocol PRN Reason: Pain, moderate (4-7) Last Admin: 03/15/17 09:02 Dose: 50 mg - Constitutional Appears: Non-toxic, No Acute Distress - Head Exam Head Exam: NORMAL INSPECTION - Neck Exam Neck Exam: absent: Meningismus - Respiratory Exam Respiratory Exam: Decreased Breath Sounds - Cardiovascular Exam Cardiovascular Exam: +S1, +S2 - GI/Abdominal Exam GI & Abdominal Exam: Soft. absent: Tenderness Assessment and Plan - Assessment and Plan (Free Text) Plan: Assessment Swelling of lower extremities probably related to fluid retention in a patient with end stage renal disease/venous stasis with associated chronic pain syndrome consider skin and skin structure infection of lower extremities, clinically improved probable arthritis of the hips and knees history of atypical pneumonia HTN dysipidemia ESRD on HD Peptic ulcer disease chronic pain syndrome small brain aneurysm Plan continue Zyvox (day 6) to complete a 5 day course; blood cx are negative; doppler ultrasound of the legs does not show DVT - will d/c antibiotics will continue to monitor clinically
--- NOTE | 2017-03-15 13:47 | PN ---
DATE: 03/15/2017 SUBJECTIVE: The patient is seen, lying in bed. She is awake, she is alert. She is comfortable. She reports she did physical therapy. She denies any swelling of her ankles today. PHYSICAL EXAMINATION: GENERAL: Middle-age lady, lying in bed. VITAL SIGNS: Blood pressure 118/68, heart rate 57, respiratory rate 20, temperature 98.3. HEENT: Normocephalic, atraumatic. Positive Pallor. NECK: Supple, no JVD. LUNGS: Bilateral equal air entry, bilateral rhonchi, distant breath sounds. CARDIAC: S1 and S2, regular rate and rhythm, no murmur, no rub. ABDOMEN: Soft, nondistended, nontender. Bowel sounds present. EXTREMITIES: No lower extremity edema. INTAKE AND OUTPUT: Not charted. LABORATORY DATA: No new labs. CURRENT MEDICATIONS: Dilaudid, Lopressor, Renagel, Sensipar, Ultram, Zofran, Zyvox. ASSESSMENT: 1. End-stage renal disease. 2. Hypertension. 3. Chronic pain. 4. Asthma. 5. Bilateral hip dislocation. 6. History of pericardial effusion. PLAN: 1. Status post stable dialysis yesterday. 2. Blood pressure controlled. 3. Physical therapy. Mansi Rose MD
--- NOTE | 2017-03-15 15:04 | CON ---
DATE: 03/15/2017 ORTHOPEDIC CONSULT LOCATION: Room 314, bed 1. HISTORY OF PRESENT ILLNESS: The patient is known to me for dysplastic bilateral hips and back pain, right worse than the left. She has mild osteoarthritis of the right hip, not bad enough for surgery because her pain is tolerable and there is motion of the hips. I told her when the pain gets worse or the limitation is worse, she could consider surgery with high risk for a total hip replacement because of her history of being on dialysis. We will try to avoid surgery if we can and ambulate with a walker or cane. Her back pain is also present with mild osteoarthritis, but no signs of radiculopathy. So, I will continue physical therapy as she is walking a little better with the aid of a walker and to get her strength. I could see her in the office. If the pain gets too bad, we will have to work her up for a total hip replacement on the right if it comes to that setting. FINAL DIAGNOSES: Bilateral dysplastic hips, right worse than the left with mild osteoarthritis and low back sprain. Jarrett Ibarra DO
[2017-03-15 15:05] LABS: ALB/GLOB RATIO 1.3 (1.1-1.8); ALBUMIN 3.5 g/dL (3.0-4.8); CALCIUM 8.3 mg/dL (8.4-10.5)
[2017-03-15 15:11] LABS: BASO # 0.01 K/mm3 (0.0-2.0); BASO % 0.3 % (0.0-3.0); EOS # 0.2 (0.0-0.7); EOS % 4.5 % (1.5-5.0); GRAN # 1.71 (1.4-6.5); GRAN % 48.6 % (50.0-68.0); HEMOGLOBIN 11.1 g/dL (12.0-16.0); LYMPH % 27.6 % (22.0-35.0); MEAN CELL VOLUME 88.1 fl (80.0-105.0); MEAN CORPUSCULAR HEMOGLOBIN 28.1 pg (25.0-35.0); MEAN CORPUSCULAR HGB CONC 31.9 g/dl (31.0-37.0); MEAN PLATELET VOLUME 9.1 fl (7.0-11.0); MONO # 0.7 (0.1-0.6); PLATELET COUNT 80 10^3/uL (120.0-450.0); RBC 3.95 10^6/uL (3.5-6.1); RED CELL DISTRIBUTION WIDTH 18.3 % (11.5-14.5); WHITE BLOOD COUNT 3.5 10^3/ul (4.5-11.0)
[2017-03-16] MEDS: HYDROmorphone 1 mg/ml ISec IVP PRN ×3 (00:53→12:47)
--- NOTE | 2017-03-16 20:38 | PN ---
DATE: SUBJECTIVE: Patient is 56-year-old, seen and examined, lying in bed, complaining of bilateral hip pain, states it hurts to walk. Discussed with Dr. Ibarra. He did not feel comfortable doing surgery on her. She need to be referred out for total hip replacement. PHYSICAL EXAMINATION GENERAL: On examination today, she is awake and alert, able to communicate. VITAL SIGNS: She is afebrile, pulse 65, respiration 18, blood pressure 158/69. LUNGS: Bilateral fair air flow. No rhonchi or crackles. HEART: S1 and S2, audible. ABDOMEN: Soft, nontender, no rebound, no guarding. NEUROLOGICAL: She is awake and alert, able to communicate, has difficulty walking because of the hip pain, right more than the left. ASSESSMENT AND PLAN: 1. Congenital hip disease status post arthroplasty in the remote past. 2. End-stage renal disease on hemodialysis. 3. Hypertension. 4. Hyperlipidemia. 5. . Patient has itchy spot on back of her right arm. Currently, she is getting hydromorphone. I am switching to p.o. Dilaudid 2 mg q. 4 p.r.n. since she is allergic to multiple other medications. If she tolerates p.o. Dilaudid, we can send her home as needed. Continue with physical therapy. We will follow this patient in the a.m. Shawn Gomez MD
--- NOTE | 2017-03-16 23:54 | CON ---
DATE: 03/16/2017 REASON FOR CONSULTATION: Hyponatremia, ESRD. HISTORY OF PRESENTING ILLNESS: A 56-year-old young woman was initially admitted to the medical side with severe lower extremity edema. Complaining of severe pain in her lower extremities and hip. She has extensive work up done which only revealed DJD of the left hip and right hip. Her edema resolved with aggressive ultrafiltration. There was no cellulitis noted. She is currently in the Transitional Care Unit to get rehabilitation and PT. It is that yesterday her sodium was found to be 129. Hence consultation was requested. PAST MEDICAL AND SURGICAL HISTORY: Hypertension, asthma, ESRD, pericardial effusion, C. diff colitis, chronic pain, active smoking. FAMILY HISTORY: Hypertension. SOCIAL HISTORY: Current smoker, no alcohol use, no IV drug abuse. ALLERGIES: MULTIPLE ALLERGIES INCLUDING ASPIRIN, CIPRO, ENALAPRIL, HEPARIN, PENICILLIN, SULFA, TYLENOL, CODEINE, LOVENOX. CURRENT MEDICATIONS: Dilaudid, Lopressor 25 b.i.d., Renagel 1600 three times a day,cinacalcet 30,Ultram, Zofran. REVIEW OF SYSTEMS: Currently the patient is complaining of mild pain in her lower extremities, no chest pain, no shortness of breath, intermittent abdominal pain. All of the systems are reviewed, and unremarkable. PHYSICAL EXAMINATION: GENERAL: Middle-age lady, lying in bed. VITAL SIGNS: Blood pressure 158/69, heart rate 65, respiratory rate 18, temperature 98.7. HEENT: Normocephalic, atraumatic. Pupils equal reactive to light, no pallor. NECK: Supple, no JVD. LUNGS: Bilateral equal air entry, bilateral rhonchi. CARDIAC: S1 and S2, regular rate and rhythm, no murmur, no rub. ABDOMEN: Soft, nondistended, nontender, bowel sounds present. EXTREMITIES: No lower extremity edema. LABORATORY DATA: WBC 3.5, hemoglobin 11, hematocrit 35, and platelets 80. Sodium 129, potassium 4.1, chloride 92, CO2 of 24, BUN 30, creatinine 6.7, glucose 123, calcium 8.3, phosphorus 5.3 magnesium 2.0, AST 48, ALT 36, albumin 3.5. ASSESSMENT: 1. Hyponatremia, largely dilutional. 2. Hypertension. 3. End-stage renal disease. 4. Asthma. 5. Congestive heart failure/coronary artery disease. PLAN: 1. Repeat sodium. 2. Use sodium 140 in dialysis. 3. Physical therapy. 4. Continue antihypertensive. 5. Continue phosphate binders. 6. Continue Sensipar. Thank you for the courtesy of this consultation. We will follow this patient closely with you. Mansi Rose MD
--- NOTE | 2017-03-17 18:01 | PN ---
SUBJECTIVE: The patient is a 56-year-old, seen and examined, complaining of hip pain, difficulty walking. The patient states she has 3 flights of stairs, unable to go up and her hip pain is progressively getting worse. She is lying in bed. PHYSICAL EXAMINATION: VITAL SIGNS: She is afebrile, pulse 61, respiration 19, blood pressure 135/72. LUNGS: Bilateral fair air flow. No rhonchi or crackles. HEART: S1 and S2 audible. ABDOMEN: Soft, nontender, no rebound, no guarding. NEUROLOGIC: The patient is awake and alert, communicative. ASSESSMENT: 1. Bilateral hip osteoarthritis. 2. End-stage renal disease, on hemodialysis. 3. Deconditioning and difficulty walking. 4. Hypertension. 5. Chronic anemia. PLAN: I discussed with Dr. Ibarra. His opinion, she is not a good candidate for hip replacement given her other comorbidities. I also discussed with her about the possibility of renal transplant. She states she was evaluated a couple of years ago, but she was told that she cannot use public transportation after renal transplant. It is not possible for her because she has no way of transportation for dialysis or doctor's followups. I advised her to get second opinion that she will do upon discharge from his admission. Shawn Gomez MD
--- NOTE | 2017-03-17 20:15 | PN ---
DATE: 03/17/2017 SUBJECTIVE: The patient is seen lying in the bed in the dialysis unit. She is awake, she is alert, and she is comfortable. She denies any pain at present. PHYSICAL EXAMINATION: GENERAL: Middle-age lady, lying in bed in the dialysis unit. VITAL SIGNS: Blood pressure 135/72, heart rate 61, respiratory rate 18, temperature 97.4. HEENT: Normocephalic, atraumatic. NECK: Supple, no JVD. LUNGS: Bilateral equal air entry, no rales. CARDIAC: S1 and S2, regular rate and rhythm, no murmur, no rub. ABDOMEN: Soft, nondistended, nontender, bowel sounds present. EXTREMITIES: No lower extremity edema. INTAKE AND OUTPUT: Not charted. LABORATORY DATA: WBC 3.7, hemoglobin 11.5, hematocrit 36, and platelets 56. Sodium 131, potassium 4.7, chloride 95, CO2 of 24, BUN 24, creatinine 6.4, glucose 100, calcium 8.4, phosphorus 4.3 magnesium 2.1. CURRENT MEDICATIONS: List reviewed. ASSESSMENT: 1. Hypertension. 2. End-stage renal disease. 3. Thrombocytopenia. 4. Status post lower extremity edema/pain. 5. Anemia of chronic kidney disease. 6. Asthma. PLAN: 1. Stable dialysis. 2. Monitor platelet count closely. 3. Consider hematology evaluation. 4. Continue antihypertensive. 5. Continue respiratory treatment. Mansi Rose MD
[2017-03-18 13:03] VITALS: RESP 18
--- NOTE | 2017-03-18 14:37 | PN ---
DATE: SUBJECTIVE: The patient is 56 years old seen and examined according to the therapist. She was able to walk in the hallway, has hip pain, but under control with Dilaudid, otherwise she is awake, alert, communicative. PHYSICAL EXAMINATION: VITAL SIGNS: She is afebrile. Pulse 60, respirations 18, blood pressure 150/65. LUNGS: Bilateral fair airflow. No rhonchi or crackles. HEART: S1 and S2 audible. ABDOMEN: Soft, nontender, no rebound, no guarding. NEUROLOGIC: She is awake, alert, able to communicate, able to ambulate. ASSESSMENT: 1. Bilateral hip osteoarthritis. 2. End-stage renal disease, on hemodialysis. 3. Gastritis. 4. 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 PLAN: Discussed with Dr. Ibarra and she is not a candidate for hip replacement because of other comorbidities, so plan is we will continue optimize her pain medication and continue current medication. Discharge plan in the middle of the night. Shawn Gomez MD
--- NOTE | 2017-03-19 22:22 | PN ---
DATE: 03/19/2017 SUBJECTIVE: The patient is seen sitting on bed. She is awake, she is alert, she is comfortable. She complains of pain in her hips. She denies any pain in her lower extremities. PHYSICAL EXAMINATION GENERAL: Middle age lady, sitting in bed. VITAL SIGNS: Blood pressure 130/67, heart rate 51, respiratory rate 18, temperature 98. HEENT: Normocephalic and atraumatic. NECK: Supple. No JVD. LUNGS: Bilateral equal air entry, bilateral equal expansion. CARDIAC: S1, S2, regular rate and rhythm. No murmur. No rubs. EXTREMITIES: No lower extremity edema. LABORATORY DATA: No new labs. CURRENT MEDICATIONS: List reviewed. ASSESSMENT: 1. Bilateral hip osteoarthritis. 2. Status post right total hip replacement. 3. Hypertension. 4. End-stage renal disease. 5. Asthma. 6. History of pericardial effusion. PLAN: 1. Dialysis on Monday, Monday and Monday. 2. Physical therapy. 3. Pain management. 4. Continue respiratory treatment. Mansi Rose MD
--- NOTE | 2017-03-20 13:07 | PN ---
SUBJECTIVE: The patient is a [id number] seen and examined, lying in bed, seems to be comfortable. No nausea, vomiting or diarrhea, eating and tolerating, able to walk with some photo studio assistant with walker. PHYSICAL EXAMINATION: VITAL SIGNS: She is afebrile. Pulse 60, respirations 18, blood pressure 151/69. LUNGS: Bilateral fair airflow. No rhonchi or crackles. HEART: S1 and S2 audible. ABDOMEN: Soft, nontender, no rebound, no guarding. NEUROLOGIC: The patient is awake, alert, able to communicate, bilateral leg no edema. ASSESSMENT: 1. Chronic bilateral hip osteoarthritis. 2. End-stage renal disease, on hemodialysis. 3. Hypertension. 4. Electrolyte imbalance. 5. Hyponatremia. PLAN: We will continue the patient on current medication. Continue physical therapy. She is planned to be discharged tomorrow. Shawn Gomez MD
--- NOTE | 2017-03-20 19:31 | PN ---
DATE: 03/20/2017 SUBJECTIVE: The patient is seen and examined. PHYSICAL EXAMINATION GENERAL: She is awake. She is alert. She is comfortable. VITAL SIGNS: Blood pressure 163/70, heart rate 60, respiratory rate 18, temperature 98. HEENT: Normocephalic and atraumatic. LUNGS: Bilateral equal air entry. EXTREMITIES: No lower extremity edema. LABORATORY DATA: WBC of 6, hemoglobin 12, hematocrit 37.9, platelets 74. Sodium 136, potassium 4.6, chloride 99, CO2 24, BUN 27, creatinine 8.5, glucose 124, calcium 8.9, phosphorus 3.0, magnesium 2.2. ASSESSMENT: 1. Stable dialysis. 2. Elevated bilirubin. 3. Status post severe lower extremity edema/pain. 4. Hypertension. 5. Anemia of chronic kidney disease. 6. Asthma. PLAN: 1. Stable dialysis, continue current management. 2. Continue antihypertensive. 3. Continue physical therapy. Mansi Rose MD
[2017-03-21 06:53] VITALS: O2SAT 98
[2017-03-21 10:23] VITALS: BP 152/69; PULSE 59; TEMP 98.2
--- NOTE | 2017-03-21 18:00 | PN ---
SUBJECTIVE: The patient is completing her stay in the TCU and will be leaving today. She is scheduled for her outpatient dialysis tomorrow at [facility] in [place]. MEDICATIONS: Medication list reviewed. The patient is currently on Dilaudid p.r.n, Lopressor, Renagel, Sensipar, Tessalon Perles, Ultram and Zofran p.r.n. She has completed her course of antibiotics for her lower extremity cellulitis. OBJECTIVE: VITAL SIGNS: Blood pressure 152/69, temperature 98.2, respiratory rate is 18 with a pulse of 59. HEENT: Normocephalic, atraumatic. Conjunctiva are pink. Sclerae non-icteric. NECK: Supple, no neck vein distention. CHEST: Clear to auscultation and percussion. No rales, no rhonchi, no wheezing. CARDIOVASCULAR: She has a regular rate and rhythm without murmurs, rubs or gallops. ABDOMEN: Soft. Bowel sounds normal. No rebound, no guarding, no masses. EXTREMITIES: Show left upper extremity AV fistula. Positive thrill and positive bruit. No lower extremity edema. LABORATORY DATA AND IMAGING: No recent labs are obtained. ASSESSMENT: 1 End-stage renal disease. The patient will continue Monday, Monday, Monday dialysis, so next dialysis is scheduled for tomorrow in outpatient unit. 2. Hypertension. Blood pressure controlled on present medication, no change in medication at this point in time. 3. Status post cellulitis of her lower extremity. The patient has completed the course of IV antibiotic therapy. 4. History of peptic ulcer disease and reflux, currently stable. 5. History of chronic headaches. Workup done by neurology, essentially unremarkable. Currently asymptomatic. 6. History of secondary hyperparathyroidism. Currently stable on renal diet and binder therapy. No recent labs, so no further comment. 7. History of anemia secondary to chronic kidney disease. Hemoglobin has been stable. The patient is on outpatient Aranesp therapy. 8. History of hyperkalemia. The patient's last calcium level available was excellent at 4.1, she appears to do well when she is hospitalized. 9. History of pericardial effusion status post pericardial window, currently stable. PLAN: 1. Agree with plans for dialysis at outpatient unit tomorrow. 2. The patient to be discharged today. 3. Continue all dietary instructions and medications. 4 We will follow the patient in outpatient dialysis. Deon Mathews MD
--- NOTE | 2017-03-22 09:34 | DS ---
HISTORY OF PRESENT ILLNESS: The patient is 56 years old who was admitted with difficulty walking. The patient has congenital hip dislocation, had arthroplasty done in [place]. She states for the last couple of months, her hips have been hurting her. She has difficulty walking. She has leg swelling, so she was admitted, had leg Doppler done, negative for DVT, was seen by Dr. Ibarra, but in his opinion, the patient is not a good candidate for hip replacement. Because of her other comorbidities, she was put in rehab where she received physical therapy, analgesics, doing relatively better, and able to walk. PHYSICAL EXAMINATION: VITAL SIGNS: She is afebrile, pulse 59, respirations 18, and blood pressure 152/69. LUNGS: Bilateral fair airflow. No rhonchi or crackles. HEART: S1 and S2 audible. ABDOMEN: Soft and nontender. No rebound. No guarding. NEUROLOGIC: The patient is awake and alert, able to communicate, and able to walk with minimal assistance. ASSESSMENT: 1. Status post bilateral hip osteoarthritis and intractable pain. 2. End-stage renal disease, on hemodialysis. 3. Hypertension. 4. Peptic ulcer disease. 5. Chronic anemia. 6. Asthmatic bronchitis. PLAN: The patient is being discharged home. I will give her Dilaudid 2 mg q.6 hours p.r.n. She will resume her dialysis schedule. She will resume her medications as prior to admission. We will follow the patient as an outpatient. Shawn Gomez MD
== END 2017-03-21 15:32 | disposition home health service (06) | DRG 553 ==
LOC: TRCU 17:03
PROVIDERS: ADMIT Internal Medicine; ATTEND Internal Medicine
PROC: F07Z9FZ Gait Training/Functional Ambulation Treatment using Assistive, Adaptive, Supportive or Protective Equipment (ICD-10-PCS; principal; 2017-03-14)
PROC: F07M6ZZ Therapeutic Exercise Treatment of Musculoskeletal System - Whole Body (ICD-10-PCS; 2017-03-14)
DX: M16.0 Bilateral primary osteoarthritis of hip (principal); N18.6 End stage renal disease; I13.2 Hypertensive heart and chronic kidney disease with heart failure and with stage 5 chronic kidney disease, or end stage renal disease; I67.1 Cerebral aneurysm, nonruptured; D69.6 Thrombocytopenia, unspecified; E87.8 Other disorders of electrolyte and fluid balance, not elsewhere classified; E87.1 Hypo-osmolality and hyponatremia; N25.81 Secondary hyperparathyroidism of renal origin; L03.119 Cellulitis of unspecified part of limb; R17 Unspecified jaundice; Z99.2 Dependence on renal dialysis; K27.9 Peptic ulcer, site unspecified, unspecified as acute or chronic, without hemorrhage or perforation; D63.1 Anemia in chronic kidney disease; E03.9 Hypothyroidism, unspecified; E78.5 Hyperlipidemia, unspecified; F17.200 Nicotine dependence, unspecified, uncomplicated; G89.4 Chronic pain syndrome; H54.42 Blindness, left eye, normal vision right eye; I25.10 Atherosclerotic heart disease of native coronary artery without angina pectoris; I50.9 Heart failure, unspecified; I87.8 Other specified disorders of veins; J44.9 Chronic obstructive pulmonary disease, unspecified; K21.9 Gastro-esophageal reflux disease without esophagitis; K29.70 Gastritis, unspecified, without bleeding; M51.37 Other intervertebral disc degeneration, lumbosacral region; Q65.01 Congenital dislocation of right hip, unilateral; S33.9XXA Sprain of unspecified parts of lumbar spine and pelvis, initial encounter; Z87.11 Personal history of peptic ulcer disease; Z90.49 Acquired absence of other specified parts of digestive tract; Z96.641 Presence of right artificial hip joint; Z96.651 Presence of right artificial knee joint; M54.9 Dorsalgia, unspecified; Z87.892 Personal history of anaphylaxis; Z88.6 Allergy status to analgesic agent; Z88.1 Allergy status to other antibiotic agents; Z91.040 Latex allergy status; Z88.0 Allergy status to penicillin; Z88.2 Allergy status to sulfonamides; Z88.7 Allergy status to serum and vaccine; Z88.8 Allergy status to other drugs, medicaments and biological substances; Z91.018 Allergy to other foods; Z87.01 Personal history of pneumonia (recurrent); J45.909 Unspecified asthma, uncomplicated

== ENCOUNTER 2017-05-11 16:59 | Inpatient (IN) | payer MEDICARE, BC ==
[2017-05-11 17:17] VITALS: BMI 23.1
--- NOTE | 2017-05-11 17:26 | ED PDOC ---
Arrival/HPI - General Chief Complaint: GI Problem Time Seen by Provider: 05/11/17 17:08 Historian: Patient - History of Present Illness Narrative History of Present Illness (Text): 05/11/17 17:26 56 year old female, whose past medical history includes ESRD on hemodialysis ( Monday/Monday/Monday), hypertension, COPD, degenerative disc disease, GERD, and chronic anemia, presents to the emergency department complaining of abdominal pain, nausea, vomiting, and diarrhea x 5 days. Patient stated she had 7 BM last night. Patient has not gone to have Dialysis since last Monday, therefore, she has missed 2 dialysis so far. Patient noted a cough, and she admits smoking cigarettes. Patient denies SOB, CP, rectal bleeding, leg swelling, skin rash, recent travel , sick contact, weakness, paresthesias, urinary symptoms, dizziness, or abnormal gait. Dr. Gomez, PMD Dr. Rose, [facility] Time/Duration: < week Quality: Aching Context: Home Past Medical History - Provider Review Nursing Documentation Reviewed: Yes - Past History Past History: Non-Contributing - Infectious Disease Hx of Infectious Diseases: None - Tetanus Immunization Tetanus Immunization: Up to Date - Cardiac Hx Cardiac Disorders: Yes Hx Congestive Heart Failure: Yes Hx Hypertension: Yes - Pulmonary Hx Respiratory Disorders: Yes Hx Chronic Obstructive Pulmonary Disease (COPD): Yes - Neurological Hx Neurological Disorder: No - HEENT Hx HEENT Disorder: Yes Hx Blind: Yes (parial, left eye) - Renal Hx Renal Disorder: Yes Type of Dialysis Access: L arm Date of Last Dialysis Treatment: 05/05/17 Hx Renal Failure: Yes (Hemodialysis (M,W,F)) - Endocrine/Metabolic Hx Endocrine Disorders: Yes (parathyroid) - Hematological/Oncological Hx Blood Disorders: Yes Hx Anemia: Yes - Integumentary Hx Dermatological Disorder: No - Musculoskeletal/Rheumatological Hx Falls: No - Gastrointestinal Hx Gastrointestinal Disorders: Yes Hx Gastroesophageal Reflux: Yes - Genitourinary/Gynecological Hx Genitourinary Disorders: No - Psychiatric Hx Psychophysiologic Disorder: No Hx Substance Use: No - Surgical History Hx Cholecystectomy: Yes Hx Orthopedic Surgery: Yes (bilateral hips) Other/Comment: left arm fistula placemnt, c-sectionx2, tonsilectomy - Anesthesia Hx Anesthesia: Yes Hx Anesthesia Reactions: No Hx Malignant Hyperthermia: No - Suicidal Assessment Feels Threatened In Home Enviroment: No Family/Social History - Physician Review Nursing Documentation Reviewed: Yes Family/Social History: Other (non contributory) Smoking Status: Smoker Currrent Status Unknown Hx Alcohol Use: No Hx Substance Use: No Hx Substance Use Treatment: No Allergies/Home Meds Allergies/Adverse Reactions: Allergies aspirin Allergy (Severe, Verified 05/11/17 17:17) ANAPHYLAXIS ciprofloxacin Allergy (Severe, Verified 05/11/17 17:17) ANAPHYLAXIS Sanders And Derivatives Allergy (Severe, Verified 05/11/17 17:17) ANAPHYLAXIS enalapril Allergy (Severe, Verified 05/11/17 17:17) HIVES heparin Allergy (Severe, Verified 05/11/17 17:17) ANAPHYLAXIS latex Allergy (Severe, Verified 05/11/17 17:17) ANAPHYLAXIS Penicillins Allergy (Severe, Verified 05/11/17 17:17) ANAPHYLAXIS Sulfa (Sulfonamide Antibiotics) Allergy (Severe, Verified 05/11/17 17:17) ANAPHYLAXIS levothyroxine sodium [From Levoxyl] Allergy (Intermediate, Verified 05/11/17 17: 17) RASH acetaminophen Allergy (Mild, Verified 05/11/17 17:17) RASH codeine Allergy (Mild, Verified 05/11/17 17:17) RASH enoxaparin Allergy (Mild, Verified 05/11/17 17:17) RASH iodine Allergy (Mild, Verified 05/11/17 17:17) RASH influenza virus vaccine, specific Allergy (Verified 05/11/17 17:17) hives Home Medications: Home Meds Medication Instructions Recorded Confirmed Cinacalcet [Sensipar] 30 mg PO DIN 02/05/14 05/11/17 Rosuvastatin Calcium [Crestor] 20 mg PO DAILY 02/05/14 05/11/17 Esomeprazole Magnesium [Nexium] 40 mg PO DAILY 02/09/17 05/11/17 Metoprolol Tartrate [Lopressor] 25 mg PO BID 02/09/17 05/11/17 Sevelamer Carbonate [Renvela] 800 mg PO TID 02/09/17 05/11/17 Review of Systems - Review of Systems Constitutional: Normal. absent: Fatigue, Weight Change, Fevers Eyes: Normal ENT: Normal Respiratory: Cough. absent: SOB, Sputum, Wheezing Cardiovascular: Normal. absent: Chest Pain, Palpitations Gastrointestinal: Abdominal Pain, Diarrhea, Nausea, Vomiting Genitourinary Female: Normal. absent: Dysuria, Frequency, Hematuria Musculoskeletal: Normal. absent: Back Pain, Neck Pain Skin: Normal. absent: Rash Neurological: Normal. absent: Headache, Dizziness, Focal Weakness, Gait Changes , Speech Changes, Facial Droop, Disequilibrium, Seizure Endocrine: Normal Hemo/Lymphatic: Normal Psychiatric: Normal Physical Exam Vital Signs Temp Pulse Resp BP Pulse Ox 05/11/17 17:20 98.2 F 78 19 164/72 H 95 Temperature: Afebrile Blood Pressure: Normal Pulse: Regular Respiratory Rate: Normal Appearance: Positive for: Well-Appearing, Non-Toxic, Comfortable Pain Distress: None Mental Status: Positive for: Alert and Oriented X 3 - Systems Exam Head: Present: Atraumatic, Normocephalic Pupils: Present: PERRL Extroacular Muscles: Present: EOMI Conjunctiva: Present: Normal Mouth: Present: Moist Mucous Membranes Neck: Present: Normal Range of Motion Respiratory/Chest: Present: Good Air Exchange, Rhonchi (mild rhonchi). No: Respiratory Distress, Accessory Muscle Use, Wheezes, Decreased Breath Sounds, Rales, Retracting, Tachypneic Cardiovascular: Present: Regular Rate and Rhythm, Normal S1, S2. No: Murmurs Abdomen: Present: Tenderness (mild generalized tenderness), Normal Bowel Sounds. No: Distention, Peritoneal Signs, Rebound, Guarding Back: Present: Normal Inspection. No: CVA Tenderness Upper Extremity: Present: Normal Inspection, Normal ROM, NORMAL PULSES, Neurovascularly Intact, Capillary Refill < 2s. No: Cyanosis, Edema Lower Extremity: Present: Normal Inspection, NORMAL PULSES, Normal ROM, Neurovascularly Intact, Capillary Refill < 2 s. No: Edema, CALF TENDERNESS, Stanislav's Sign, Erythema, Temperature Abnormalties Neurological: Present: GCS=15, CN II-XII Intact, Speech Normal, Motor Func Grossly Intact, Normal Sensory Function, Normal Cerebellar Funct, Gait Normal, Memory Normal Skin: Present: Warm, Dry, Normal Color. No: Rashes Psychiatric: Present: Alert, Oriented x 3, Normal Insight, Normal Concentration Medical Decision Making ED Course and Treatment: 05/11/17 19:[address] Rose, accounts specialist regarding patient complaining of abd. pain , n/v/d x 5 days, and patient has missed 2 dialysis this week. We reviewed labs , VS, and pending CT scan report. She stated patient does not need to be admitted because pt missed 2 dialysis, but if there is a medical finding to be admitted, to contact Dr. Gomez. 05/11/17 20:[address] Gomez regarding CT scan result, which noted mild small bowel obstruction. She recommended admission, and to have Dr. Josue Estes , and Dr. Alonzo HILL for consult. 05/11/17 21:[address] Josue Estes, regarding patient complaining of nausea, vomiting, diarrhea, and abdominal pain. We reviewed labs, VS, and CT scan report, which demonstrate mild small Bowel obstruction. He stated to call cmo & president, and to place a consult for Dr. Cruz who is covering him. 05/11/17 22:00 I spoke with Traffic Control Specialist regarding this case, and to let Dr. Cruz know about this case. I had spoken with Dr. Cruz about this case. Re-evaluation Time: 21:00 Reassessment Condition: Re-examined, Improving,but remains with symptoms - Lab Interpretations Lab Results: 05/11/17 17:35 05/11/17 17:35 Lab Results 05/11/17 17:35: Sodium 138, Potassium 5.7 H* D, Chloride 93 L, Carbon Dioxide 21 , Anion Gap 30 H, BUN 91 H, Creatinine 12.5 H*, Est GFR ( Amer) 4, Est GFR (Non-Af Amer) 3, Random Glucose 89, Calcium 9.3, Total Bilirubin 2.1 H, AST 24, ALT 22, Alkaline Phosphatase 297 H, Lactate Dehydrogenase 453, Total Creatine Kinase 56, Troponin I 0.10 D, Total Protein 6.7, Albumin 4.0, Globulin 2.7, Albumin/Globulin Ratio 1.5, Lipase 61 05/11/17 17:35: WBC 8.1 D, RBC 4.89, Hgb 13.4, Hct 42.3, MCV 86.5 D, MCH 27.4 , MCHC 31.7, RDW 19.6 H, Plt Count 142, MPV 10.2, Gran % 80.2 H, Lymph % (Auto) 10.6 L, [place] % (Auto) 8.5 H, Eos % (Auto) 0.5 L, Baso % (Auto) 0.2, Gran # 6.47 , Lymph # 0.9 L, [place] # 0.7 H, Eos # 0.0, Baso # 0.02 I have reviewed the lab results: Yes Interpretation: Abnormal lab values - RAD Interpretation Narrative RAD Interpretations (Text): 05/11/17 20:48 [facility] Division of Radiology [address] [address] Tel. no. Patient Name: MARTINEZ COSTELLO Pt. Address: [address] [place] [address] Rec #: [id number] [place] [address]: Dimitris MATTHEW,Frank Ding Pt Order Location: ED : 1960 Female Age: 56 Order #: [id number] Reason for exam: abdominal pain CT Scan ABD PELVIS W/O PO OR IV CONT Exam Date: 05/11/17 This imaging exam was performed at [facility] EXAM: CT Abdomen and Pelvis Without Intravenous Contrast EXAM DATE/TIME: 05/11/2017 6:26 PM CLINICAL HISTORY: The patient age is 56 years old and is female; Pain; Abdominal pain; Generalized; Prior surgery; Surgery type: (2) c-sections / cholecystectomy Facility exam id and description: Ct abdpelscon abd pelvis w/o po or iv cont TECHNIQUE: Axial computed tomography images of the abdomen and pelvis without intravenous contrast. All CT scans at this facility use one or more dose reduction techniques, viz.: automated exposure control; ma/kV adjustment per patient size (including targeted exams where dose is matched to indication; i.e. head); or iterative reconstruction technique. Coronal and sagittal reformatted images were created and reviewed. COMPARISON: CT - ABD PELVIS W/O PO OR IV CONT 11/17/2016 1:26:03 AM FINDINGS: Lower thorax: There is cardiomegaly. Within the right lower lobe on series 4 image 9, there is a 4 mm calcified lung nodule. Patchy nonspecific groundglass densities identified within the lungs. Atelectatic changes are visualized within the left lung base and lingula. ABDOMEN: Liver: There is mild hypodense fatty infiltration of the liver. The liver measures 20.0 cm in the craniocaudad dimension, consistent with hepatomegaly. Gallbladder and bile ducts: Surgical clips are identified within the gallbladder fossa, compatible with cholecystectomy. Pancreas: Normal contour. No ductal dilation. Spleen: No splenomegaly. Adrenals: No mass. Kidneys and ureters: Hypodense probable left renal cysts are identified. There are a few iso- to hyperdense complex cystic or solid lesions at the mid to upper pole the left kidney. The largest is exophytic to the upper pole of the left kidney measuring 2.7 x 2.4 cm, which has increased in size. There is atrophy of the bilateral kidneys. Stomach and bowel: Mildly dilated small bowel loops are identified within the left side of the abdomen, which is a progression compared to the prior study and concerning for obstruction. This has a maximal diameter of 3.1 cm. There is wall thickening of the stomach and duodenum, which may be contributed by incomplete distention, although gastroenteritis is considered. Evaluation of bowel is limited by the absence of intravenous contrast. Appendix: No findings to suggest acute appendicitis. PELVIS: Bladder: No stones. Reproductive: The uterus is absent. ABDOMEN and PELVIS: Intraperitoneal space: No free air. Bones/joints: There is bilateral hip arthropathy. Hypertrophic degenerative changes are noted within the spine. Soft tissues: There is soft tissue swelling lateral to each hip. There is significant swelling of the subcutaneous tissues of the abdomen and pelvis, significant posteriorly at the level of the abdomen. This is consistent with anasarca and has progressed. There is a stable increase in fat or lipomatous lesion within the left gluteal musculature. Vasculature: Peripherally calcified splenic artery aneurysms are identified medial to the spleen, the largest measuring 1.9 x 1.6 cm. These findings are similar to the prior study. Lymph nodes: No enlarged lymph nodes. IMPRESSION: 1. Mildly dilated small bowel loops are identified within the left side of the abdomen, which is a progression compared to the prior study and concerning for obstruction. 2. There is cardiomegaly. 3. Peripherally calcified splenic artery aneurysms are identified medial to the spleen, the largest measuring 1.9 x 1.6 cm. These findings are similar to the prior study. 4. There is mild hypodense fatty infiltration of the liver. Hepatomegaly. 5. Hypodense probable left renal cysts are identified. There are a few iso- to hyperdense complex cystic or solid lesions at the mid to upper pole the left kidney. The largest is exophytic to the upper pole of the left kidney measuring 2.7 x 2.4 cm, which has increased in size. Further evaluation with ultrasonography is recommended. 6. There is wall thickening of the stomach and duodenum, which may be contributed by incomplete distention, although gastroenteritis is considered. 7. Anasarca. This has progressed. 8. Additional CT findings described above. Dictated By: Duke Howe MD, MD Dictated Date/Time: 05/11/172034 Signed By: Duke Branham MD Date Signed: 2034 Transcribed By: GATO Transcribe Date/Time : 05/11/172034 [facility] Radiology Orders: 05/11/17 18:26 ABD & PELVIS W/O PO OR IV CONT [CT] Stat 05/11/17 23:48 CHEST PORTABLE [RAD] Stat - EKG Interpretation Interpreted by ED Physician: Yes (NSR @ [address] changes) Type: 12 lead EKG Comparison: Similar to previous EKG - Medication Orders Current Medication Orders: Hydromorphone HCl (Dilaudid) 0.5 mg IVP Q4H PRN PRN Reason: Pain, moderate (4-7) Dextrose/Sodium Chloride (Dextrose 5%/0.45% Ns 1000 Ml) 1,000 mls @ 40 mls/hr IV .Q24H LEX Last Admin: 05/11/17 22:45 Dose: 40 mls/hr eMAR Start Stop Document 05/11/17 22:45 OCS (Rec: 05/12/17 00:14 OCS [id number]) Intravenous Solution Start Date 05/12/17 Start Time 00:14 Famotidine (Pepcid 20mg/50ml Premix) 20 mg in 50 mls @ 100 mls/hr IVPB Q12 LEX Metoprolol Tartrate (Lopressor) 25 mg PO BID LEX Ondansetron HCl (Zofran Inj) 4 mg IVP Q6H PRN PRN Reason: Nausea/Vomiting Discontinued Medications Famotidine (Pepcid) 20 mg IVP STAT STA Stop: 05/11/17 17:48 Last Admin: 05/11/17 18:02 Dose: 20 mg IVP Administration Document 10/05/17 18:02 OCS (Rec: 05/11/17 18:02 [id number] Charges for Administration # of IVP Administrations 1 Sodium Chloride (Sodium Chloride 0.9%) 500 mls @ 999 mls/hr IV .Q31M STA Stop: 05/11/17 20:56 Last Admin: 05/11/17 20:53 Dose: 999 mls/hr eMAR Start Stop Document 05/11/17 20:53 OCS (Rec: 05/11/17 20:53 [id number] Intravenous Solution Start Date 05/11/17 Start Time 20:53 Ondansetron HCl (Zofran Inj) 4 mg IVP STAT STA Stop: 05/11/17 17:50 Last Admin: 05/11/17 18:02 Dose: 4 mg IVP Administration Document 05/11/17 18:02 OCS (Rec: 05/11/17 18:02 [id number]) Charges for Administration # of IVP Administrations 1 Disposition/Present on Arrival - Present on Arrival Any Indicators Present on Arrival: No History of DVT/PE: No History of Uncontrolled Diabetes: No Urinary Catheter: No History of Decub. Ulcer: No History Surgical Site Infection Following: None - Disposition Have Diagnosis and Disposition been Completed?: Yes Diagnosis: Small bowel obstruction Disposition: HOSPITALIZED Disposition Time: 10:00 Patient Plan: Admission Condition: STABLE Forms: [employer] ([place])
[2017-05-11 18:00] LABS: BASO # 0.02 K/mm3 (0.0-2.0); BASO % 0.2 % (0.0-3.0); EOS % 0.5 % (1.5-5.0); GRAN # 6.47 (1.4-6.5); GRAN % 80.2 % (50.0-68.0); HEMATOCRIT 42.3 % (36.0-48.0); LYMPH # 0.9 (1.2-3.4); LYMPH % 10.6 % (22.0-35.0); MEAN CELL VOLUME 86.5 fl (80.0-105.0); MEAN CORPUSCULAR HEMOGLOBIN 27.4 pg (25.0-35.0); MEAN CORPUSCULAR HGB CONC 31.7 g/dl (31.0-37.0); MEAN PLATELET VOLUME 10.2 fl (7.0-11.0); MONO # 0.7 (0.1-0.6); MONO % 8.5 % (1.0-6.0); RED CELL DISTRIBUTION WIDTH 19.6 % (11.5-14.5); WHITE BLOOD COUNT 8.1 10^3/ul (4.5-11.0)
[2017-05-11 18:06] LABS: ALB/GLOB RATIO 1.5 (1.1-1.8); BILIRUBIN,TOTAL 2.1 mg/dL (0.2-1.3); CALCIUM 9.3 mg/dL (8.4-10.5); TOTAL PROTEIN 6.7 g/dL (5.8-8.3)
[2017-05-11 18:21] LABS: POTASSIUM 5.7 mmol/L (3.6-5.0)
[2017-05-11 18:26] LABS: TROPONIN I 0.1 ng/mL
[2017-05-11] MEDS ORDERED: Sodium Chloride 0.9% 500 ML IV STA (20:26)
--- NOTE | 2017-05-11 20:36 | CT ---
EXAM: CT Abdomen and Pelvis Without Intravenous Contrast EXAM DATE/TIME: 05/11/2017 6:26 PM CLINICAL HISTORY: The patient age is 56 years old and is female; Pain; Abdominal pain; Generalized; Prior surgery; Surgery type: (2) c-sections / cholecystectomy Facility exam id and description: Ct abdpelscon abd pelvis w/o po or iv cont TECHNIQUE: Axial computed tomography images of the abdomen and pelvis without intravenous contrast. All CT scans at this facility use one or more dose reduction techniques, viz.: automated exposure control; ma/kV adjustment per patient size (including targeted exams where dose is matched to indication; i.e. head); or iterative reconstruction technique. Coronal and sagittal reformatted images were created and reviewed. COMPARISON: CT - ABD PELVIS W/O PO OR IV CONT 11/17/2016 1:26:03 AM FINDINGS: Lower thorax: There is cardiomegaly. Within the right lower lobe on series 4 image 9, there is a 4 mm calcified lung nodule. Patchy nonspecific groundglass densities identified within the lungs. Atelectatic changes are visualized within the left lung base and lingula. ABDOMEN: Liver: There is mild hypodense fatty infiltration of the liver. The liver measures 20.0 cm in the craniocaudad dimension, consistent with hepatomegaly. Gallbladder and bile ducts: Surgical clips are identified within the gallbladder fossa, compatible with cholecystectomy. Pancreas: Normal contour. No ductal dilation. Spleen: No splenomegaly. Adrenals: No mass. Kidneys and ureters: Hypodense probable left renal cysts are identified. There are a few iso- to hyperdense complex cystic or solid lesions at the mid to upper pole the left kidney. The largest is exophytic to the upper pole of the left kidney measuring 2.7 x 2.4 cm, which has increased in size. There is atrophy of the bilateral kidneys. Stomach and bowel: Mildly dilated small bowel loops are identified within the left side of the abdomen, which is a progression compared to the prior study and concerning for obstruction. This has a maximal diameter of 3.1 cm. There is wall thickening of the stomach and duodenum, which may be contributed by incomplete distention, although gastroenteritis is considered. Evaluation of bowel is limited by the absence of intravenous contrast. Appendix: No findings to suggest acute appendicitis. PELVIS: Bladder: No stones. Reproductive: The uterus is absent. ABDOMEN and PELVIS: Intraperitoneal space: No free air. Bones/joints: There is bilateral hip arthropathy. Hypertrophic degenerative changes are noted within the spine. Soft tissues: There is soft tissue swelling lateral to each hip. There is significant swelling of the subcutaneous tissues of the abdomen and pelvis, significant posteriorly at the level of the abdomen. This is consistent with anasarca and has progressed. There is a stable increase in fat or lipomatous lesion within the left gluteal musculature. Vasculature: Peripherally calcified splenic artery aneurysms are identified medial to the spleen, the largest measuring 1.9 x 1.6 cm. These findings are similar to the prior study. Lymph nodes: No enlarged lymph nodes. IMPRESSION: 1. Mildly dilated small bowel loops are identified within the left side of the abdomen, which is a progression compared to the prior study and concerning for obstruction. 2. There is cardiomegaly. 3. Peripherally calcified splenic artery aneurysms are identified medial to the spleen, the largest measuring 1.9 x 1.6 cm. These findings are similar to the prior study. 4. There is mild hypodense fatty infiltration of the liver. Hepatomegaly. 5. Hypodense probable left renal cysts are identified. There are a few iso- to hyperdense complex cystic or solid lesions at the mid to upper pole the left kidney. The largest is exophytic to the upper pole of the left kidney measuring 2.7 x 2.4 cm, which has increased in size. Further evaluation with ultrasonography is recommended. 6. There is wall thickening of the stomach and duodenum, which may be contributed by incomplete distention, although gastroenteritis is considered. 7. Anasarca. This has progressed. 8. Additional CT findings described above.
[2017-05-11] MEDS: Dextrose 5%/0.45% NS 1,000 ML IV SCH (22:45)
[2017-05-11] MEDS ORDERED: TETRACAINE/BENZOCAINE/BUTAMBEN 20 GM SPRAY TP STA (23:18)
--- NOTE | 2017-05-11 23:18 | CP.PCM.CON ---
History of Present Illness - History of Present Illness History of Present Illness: General Surgery Consult Note for Dr. Cruz Reason for Consult: abdominal pain, nausea/vomiting 56 yo female with PMH of ESRD on hemodialysis, COPD, HTN, chronic anemia presents with abdominal pain and nausea/vomiting. She states pain began 6 days ago on [place]. Patient reports to never experiencing this symptoms before. Patient was at home when symptoms began. She rates pain as moderate. She describes pain as sharp and diffuse across all four quadrants. She also described epidosdes of vomiting as bilious. Nothing makes the pain better or worse. She admits to chills and some diarrhea. She denies CP, SOB, CVA tenderness, constipation, urinary symptoms. PMD: Dr. Gomez PMH: ESRD on hemodialysis x7yrs, COPD, HTN, chronic anemia, degenerative disk disease, GERD, c. diff 2 months ago Meds: As per EMR Allergy: aspirin, ciprofloxacin, citrus, enalapril, heparin, latex, penicillin, sulfa, levothyroxine, acetominophen, codeine, enoxaparin, iodine PSH: cholecysectomy, pericardial window, b/l hip replacement + hardware removal FH: unknown Social: smokes 1PPD for about 30 years, denies alcohol or illicit drug use Review of Systems - Constitutional Constitutional: Chills. absent: Fever - Cardiovascular Cardiovascular: absent: Chest Pain - Respiratory Respiratory: Cough. absent: Dyspnea - Gastrointestinal Gastrointestinal: Abdominal Pain, Diarrhea, Nausea, Vomiting. absent: Coffee Ground Emesis, Constipation, Hematemesis, Hematochezia, Melena - Genitourinary Genitourinary: absent: Dysuria, Flank Pain Past Patient History - Infectious Disease Hx of Infectious Diseases: None, C.diff - Tetanus Immunizations Tetanus Immunization: Up to Date - Past Medical History & Family History Past Medical History?: Yes - Past Social History Smoking Status: Heavy Smoker > 10 Cigarettes Daily Alcohol: None Drugs: Denies - CARDIAC Hx Cardiac Disorders: Yes Hx Congestive Heart Failure: Yes Hx Hypertension: Yes - PULMONARY Hx Respiratory Disorders: Yes Hx Chronic Obstructive Pulmonary Disease (COPD): Yes - NEUROLOGICAL Hx Neurological Disorder: No - HEENT Hx HEENT Problems: Yes Hx Blind: Yes (parial, left eye) - RENAL Hx Chronic Kidney Disease: Yes Type of Dialysis Access: L arm Date of Last Dialysis Treatment: 05/05/17 Hx Renal Failure: Yes (Hemodialysis (M,W,F)) - ENDOCRINE/METABOLIC Hx Endocrine Disorders: Yes (parathyroid) - HEMATOLOGICAL/ONCOLOGICAL Hx Blood Disorders: Yes Hx Anemia: Yes - INTEGUMENTARY Hx Dermatological Problems: No - MUSCULOSKELETAL/RHEUMATOLOGICAL Hx Falls: No - GASTROINTESTINAL Hx Gastrointestinal Disorders: Yes Hx Gastroesophageal Reflux: Yes - GENITOURINARY/GYNECOLOGICAL Hx Genitourinary Disorders: No - PSYCHIATRIC Hx Psychophysiologic Disorder: No Hx Substance Use: No - SURGICAL HISTORY Hx Cholecystectomy: Yes Hx Orthopedic Surgery: Yes (bilateral hips) Other/Comment: left arm fistula placemnt, c-sectionx2, tonsilectomy - ANESTHESIA Hx Anesthesia: Yes Hx Anesthesia Reactions: No Hx Malignant Hyperthermia: No Meds Allergies/Adverse Reactions: Allergies Allergy/AdvReac Type Severity Reaction Status Date / Time aspirin Allergy Severe ANAPHYLAXIS Verified 05/11/17 17:17 ciprofloxacin Allergy Severe ANAPHYLAXIS Verified 05/11/17 17:17 [place] And Derivatives Allergy Severe ANAPHYLAXIS Verified 05/11/17 17:17 enalapril Allergy Severe HIVES Verified 05/11/17 17:17 heparin Allergy Severe ANAPHYLAXIS Verified 05/11/17 17:17 latex Allergy Severe ANAPHYLAXIS Verified 05/11/17 17:17 Penicillins Allergy Severe ANAPHYLAXIS Verified 05/11/17 17:17 Sulfa (Sulfonamide Allergy Severe ANAPHYLAXIS Verified 05/11/17 17:17 Antibiotics) levothyroxine sodium Allergy Intermediate RASH Verified 05/11/17 17:17 [From Levoxyl] acetaminophen Allergy Mild RASH Verified 05/11/17 17:17 codeine Allergy Mild RASH Verified 05/11/17 17:17 enoxaparin Allergy Mild RASH Verified 05/11/17 17:17 iodine Allergy Mild RASH Verified 05/11/17 17:17 influenza virus vaccine, Allergy hives Verified 05/11/17 17:17 specific - Medications Medications: Current Medications Hydromorphone HCl (Dilaudid) 0.5 mg IVP Q4H PRN PRN Reason: Pain, moderate (4-7) Dextrose/Sodium Chloride (Dextrose 5%/0.45% Ns 1000 Ml) 1,000 mls @ 40 mls/hr IV .Q24H LEX Famotidine (Pepcid 20mg/50ml Premix) 20 mg in 50 mls @ 100 mls/hr IVPB Q12 LEX Metoprolol Tartrate (Lopressor) 25 mg PO BID LEX Ondansetron HCl (Zofran Inj) 4 mg IVP Q6H PRN PRN Reason: Nausea/Vomiting Physical Exam - Constitutional Appears: No Acute Distress - Head Exam Head Exam: ATRAUMATIC, NORMOCEPHALIC - Eye Exam Eye Exam: EOMI, Normal appearance Pupil Exam: PERRL - ENT Exam ENT Exam: Mucous Membranes Moist Additional comments: 16 Fr NG tube in place - Neck Exam Neck exam: Positive for: Normal Inspection - Respiratory Exam Respiratory Exam: Clear to Auscultation Bilateral, NORMAL BREATHING PATTERN - Cardiovascular Exam Cardiovascular Exam: REGULAR RHYTHM - GI/Abdominal Exam GI & Abdominal Exam: Distended, Soft, Tenderness. absent: Firm, Guarding, Rebound, Rigid - Extremities Exam Extremities exam: Positive for: pedal pulses present - Back Exam Back exam: absent: CVA tenderness (L), CVA tenderness (R) - Neurological Exam Neurological exam: Alert, Oriented x3 - Psychiatric Exam Psychiatric exam: Normal Affect, Normal Mood - Skin Skin Exam: Dry, Intact, Normal Color, Warm Results - Vital Signs Recent Vital Signs: Last Vital Signs Temp 98.2 F 05/11/17 17:20 Pulse 78 05/11/17 17:20 Resp 19 05/11/17 17:20 BP 164/72 H 05/11/17 17:20 Pulse Ox 95 05/11/17 17:20 - Labs Result Diagrams: 05/11/17 17:35 05/11/17 17:35 Labs: Laboratory Results - last 24 hr 05/11/17 05/11/17 17:35 17:35 WBC 8.1 D RBC 4.89 Hgb 13.4 Hct 42.3 MCV 86.5 D MCH 27.4 MCHC 31.7 RDW 19.6 H Plt Count 142 MPV 10.2 Gran % 80.2 H Lymph % (Auto) 10.6 L Me[place] % (Auto) 8.5 H Eos % (Auto) 0.5 L Baso % (Auto) 0.2 Gran # 6.47 Lymph # 0.9 L [place]eker # 0.7 H Eos # 0.0 Baso # 0.02 Sodium 138 Potassium 5.7 H* D Chloride 93 L Carbon Dioxide 21 Anion Gap 30 H BUN 91 H Creatinine 12.5 H* Est GFR ( Amer) 4 Est GFR (Non-Af Amer) 3 Random Glucose 89 Calcium 9.3 Total Bilirubin 2.1 H AST 24 ALT 22 Alkaline Phosphatase 297 H Lactate Dehydrogenase 453 Total Creatine Kinase 56 Troponin I 0.10 D Total Protein 6.7 Albumin 4.0 Globulin 2.7 Albumin/Globulin Ratio 1.5 Lipase 61 Assessment & Plan - Assessment and Plan (Free Text) Assessment: 56 F with abdominal pain and nausea/vomiting Plan: - NPO - Gentle IV hydration - Analgesics/Anti-emetics PRN - NG tube on low intermittent suction - CXR to confirm proper placement of NG tube - Serial abd exams - Will PAPI Velazquez PGY1
--- NOTE | 2017-05-12 04:00 | HP ---
HISTORY OF PRESENT ILLNESS: The patient is 56 years old, known to me from multiple previous admissions, came to emergency room because of increasing abdominal pain, feels bloated, has been having nausea and vomiting with some abdominal discomfort. She states all this started almost 4-5 days ago. Last night, she had multiple bowel movements, about 3 of blood in the stool. The patient states she feels very weak and tired. She even missed her dialysis last week, complaining of scanty cough. No fever. No hemoptysis, no hematemesis. PAST MEDICAL HISTORY: Significant for; 1. End-stage renal disease, on hemodialysis. 2. Hypertension. 3. COPD. 4. Degenerative disk disease. 5. Peptic ulcer disease. 6. Chronic anemia. 7. History of pericardial effusion, status post pericardial window. 8. History of C. diff colitis couple of months ago. 9. Left eye visual impairment. ALLERGIES: SHE HAS MULTIPLE ALLERGIES INCLUDING ASPIRIN, CIPRO, CITRUS AND DERIVATIVE, ENALAPRIL, HEPARIN, LATEX, PENICILLIN, SULFA, LEVOTHYROXINE, ACETAMINOPHEN, CODEINE, ENOXAPARIN, IODINE, AND FLU VACCINE. MEDICATIONS AT HOME: She is on tramadol 50 mg q.6, Renvela 800 mg three times a day, Crestor 20 mg daily, metoprolol 25 mg twice a day, Nexium 40 mg daily, Sensipar 30 mg at dinnertime. SOCIAL HISTORY: She is and lives with her . She is an active smoker, she smokes few cigarettes daily. REVIEW OF SYSTEMS: Significant for nausea, vomiting, and generalized weakness. PHYSICAL EXAMINATION VITAL SIGNS: She is afebrile, pulse 78, respirations 19, blood pressure 160/72. LUNGS: Bilateral fair airflow. No rhonchi or crackles. HEART: S1 and S2 audible. ABDOMEN: Soft, slight epigastric right upper quadrant discomfort. NEUROLOGIC: She is awake and alert. Able to communicate. EXTREMITIES: Bilateral leg, no edema. LABORATORY DATA: Sodium 138, potassium 5.7, chloride 93, CO2 of 21, BUN 91, creatinine 12.5, blood sugar of 89. WBC 8.1, hemoglobin 13.4, hematocrit 42.3, platelets of 142. She had a CT scan of the abdomen and pelvis done that showed partial small bowel obstruction, mildly dilated small bowel loop on the left side of the abdomen, there is cardiomegaly, she had calcified splenic artery and multiple renal cysts. ASSESSMENT: 1. Abdominal pain with an intractable nausea and vomiting. 2. Partial small bowel obstruction. 3. End-stage renal disease, on hemodialysis. 4. Hypertension. 5. Peptic ulcer disease. 6. Status post cholecystectomy. 7. History of Clostridium difficile. PLAN: We will keep the patient n.p.o. and give IV fluids. Stool for C. diff is being sent, given Zofran as needed, 0.5 mg of Dilaudid q.4 p.r.n. GI consult by Dr. Rosado and surgical consult by Dr. Hudson has been requested, and we will follow up her electrolytes in the a.m. Shawn Gomez MD
[2017-05-12] MEDS: HYDROmorphone 0.5 mg/0.5 ml ISec IVP PRN ×3 (04:20→20:41)
[2017-05-12 07:12] LABS: ALB/GLOB RATIO 1.5 (1.1-1.8); CALCIUM 9.2 mg/dL (8.4-10.5)
[2017-05-12 07:13] LABS: BASO # 0.01 K/mm3 (0.0-2.0); BASO % 0.2 % (0.0-3.0); EOS # 0.1 (0.0-0.7); GRAN # 4.29 (1.4-6.5); GRAN % 75.1 % (50.0-68.0); HEMATOCRIT 40.9 % (36.0-48.0); LYMPH # 0.9 (1.2-3.4); MEAN CELL VOLUME 86.8 fl (80.0-105.0); MEAN CORPUSCULAR HEMOGLOBIN 26.5 pg (25.0-35.0); MEAN CORPUSCULAR HGB CONC 30.6 g/dl (31.0-37.0); MEAN PLATELET VOLUME 9.8 fl (7.0-11.0); MONO # 0.5 (0.1-0.6); MONO % 8.7 % (1.0-6.0); RED CELL DISTRIBUTION WIDTH 19.8 % (11.5-14.5); WHITE BLOOD COUNT 5.7 10^3/ul (4.5-11.0)
[2017-05-12 07:50] LABS: POTASSIUM 5.9 mmol/L (3.6-5.0)
--- NOTE | 2017-05-12 08:25 | RAD ---
HISTORY: s/p ng tube COMPARISON: 03/04/2017 FINDINGS: LUNGS: No active pulmonary disease. PLEURA: No significant pleural effusion identified, no pneumothorax apparent. CARDIOVASCULAR: Mild cardiomegaly. Nasogastric tube extends to left upper quadrant of abdomen. Left subclavian/ axillary vascular stent unchanged. OSSEOUS STRUCTURES: No significant abnormalities. VISUALIZED UPPER ABDOMEN: Normal. OTHER FINDINGS: None. IMPRESSION: No active disease. Nasogastric tube noted appropriately positioned.
--- NOTE | 2017-05-12 09:49 | CP.PCM.PN ---
Subjective - Date & Time of Evaluation Date of Evaluation: 05/12/17 Time of Evaluation: 09:45 - Subjective Subjective: Surgery Note for Dr. Cruz covering for Dr. Estes. Patient seen and examined at bedside. Reports no acute events overnight. Patient says she had multiple loose watery, nonbloody stools yesterday but has not had a BM since yesterday and is not passing flatus. She denies abdominal pain, N/V, F/C. Objective - Vital Signs/Intake and Output Vital Signs (last 24 hours): Temp Pulse Resp BP Pulse Ox 97.6 F 77 22 160/80 H 95 05/12/17 06:00 05/12/17 06:00 05/12/17 06:00 05/12/17 06:00 05/12/17 06:00 Intake and Output: 05/12/17 05/12/17 06:59 18:59 Intake Total 0 Balance 0 - Medications Medications: Current Medications Hydromorphone HCl (Dilaudid) 0.5 mg IVP Q4H PRN PRN Reason: Pain, moderate (4-7) Last Admin: 05/12/17 04:20 Dose: 0.5 mg Dextrose/Sodium Chloride (Dextrose 5%/0.45% Ns 1000 Ml) 1,000 mls @ 40 mls/hr IV .Q24H LEX Last Admin: 05/11/17 22:45 Dose: 40 mls/hr Famotidine (Pepcid 20mg/50ml Premix) 20 mg in 50 mls @ 100 mls/hr IVPB Q12 LEX Metoprolol Tartrate (Lopressor) 25 mg PO BID LEX Ondansetron HCl (Zofran Inj) 4 mg IVP Q6H PRN PRN Reason: Nausea/Vomiting - Labs Labs: 05/12/17 06:10 05/12/17 06:10 - Constitutional Appears: Non-toxic, No Acute Distress - Head Exam Head Exam: ATRAUMATIC, NORMOCEPHALIC - Eye Exam Eye Exam: EOMI. absent: Conjunctival injection - ENT Exam Additional comments: NG tube with 50 cc of dark red/green fluid - Neck Exam Neck Exam: Full ROM - Respiratory Exam Respiratory Exam: absent: Accessory Muscle Use, Respiratory Distress - Cardiovascular Exam Cardiovascular Exam: RRR - GI/Abdominal Exam GI & Abdominal Exam: Soft, Tenderness (Diffuse ). absent: Distended, Guarding, Rigid, Rebound - Extremities Exam Extremities Exam: absent: Calf Tenderness, Pedal Edema - Neurological Exam Neurological Exam: Alert, Awake, Oriented x3 - Psychiatric Exam Psychiatric exam: Normal Affect, Normal Mood - Skin Skin Exam: Normal Color, Warm Assessment and Plan - Assessment and Plan (Free Text) Assessment: 56F with possible partial SBO vs enteritis CT showing dilated small bowel loops of the left abdomen, wall thickening of stomach and duodenum, calcified splenic artery aneurysms, fatty liver, complex cystic or solid lesions of the left kidney, and anasarca Plan: - f/u C.Diff stool antigen test - continue pain control - anti-emetics - IV hydration - NG tube on low intermittent suction - serial abdominal exams - NPO - further recs per Dr. Anthony Bonilla
--- NOTE | 2017-05-12 10:52 | CON ---
DATE: 05/12/2017 REASON FOR CONSULTATION: Hyperkalemia, ESRD, diarrhea, nausea, vomiting. HISTORY OF PRESENTING ILLNESS: A 56-year-old lady known to me from outpatient hemodialysis, was last seen in dialysis on Monday. The patient did not show up for dialysis on Monday or Monday. She had reported that she was having diarrhea. She presented yesterday to the emergency room with complaints of severe abdominal pain, diarrhea, nausea, vomiting. In the emergency room, CT scan showed dilated bowel loops, thickened gastric wall, anasarca. She also was found to have a potassium of 5.7. Elevated bilirubin of 2.1. Hemodynamically, she was found to be stable. In fact, blood pressure was elevated at 164/72. She was not tachycardic and she was not febrile. PAST MEDICAL AND SURGICAL HISTORY: Longstanding hypertension, history of pericardial effusion, pericardial window, peptic ulcer disease, C. diff colitis, severe osteoarthritis of the hips, ESRD, anemia of chronic kidney disease, COPD. FAMILY HISTORY: Noncontributory. SOCIAL HISTORY: She is , continues to smoke, no alcohol, no IV drug abuse. ALLERGIES: CIPRO, ENALAPRIL, HEPARIN, LATEX, PENICILLIN, SULFA, SYNTHROID. MEDICATIONS AT HOME: Tramadol 50 mg q.6, Renvela 800 t.i.d., Crestor 20, Lopressor 25 b.i.d., Nexium 40, Sensipar 30. REVIEW OF SYSTEMS: All systems are reviewed, the patient complains of epigastric pain; diarrhea, loose watery, 7-10 times per day; nausea; vomiting. No fever. No chills. She complains of cough. Rest unremarkable. PHYSICAL EXAMINATION: GENERAL: Thinly built middle-age lady lying in bed. VITAL SIGNS: Blood pressure 160/80, heart rate 77, respiratory rate 22, temperature 97.6. HEENT: Normocephalic, atraumatic, positive NG tube. NECK: Supple, no JVD. LUNGS: Bilateral equal air entry, bilateral rhonchi, no rales. CARDIAC: S1, S2, regular rate and rhythm, no murmur, no rub. ABDOMEN: Soft, nondistended, positive tenderness in the epigastrium, and bowel sounds present. EXTREMITIES: No lower extremity edema. INTAKE AND OUTPUT: Not charted. LABORATORY DATA: WBC 5.7, hemoglobin 12.5, hematocrit 40.9, platelets 113. Sodium 136, potassium 5.9, chloride 95, CO2 of 21, BUN 92, creatinine 12.6, glucose 93, calcium 9.2, total bili 2.0, troponin 0.1, albumin 3.6. DIAGNOSTIC STUDIES: CT scan of the abdomen, mildly dilated small bowel loops within the left side, cardiomegaly, wall thickening of the stomach and duodenum, anasarca. ASSESSMENT: 1. Severe diarrhea, nausea, vomiting, ? partial bowel obstruction. 2. History of Clostridium difficile, repeat stool studies. 3. Hyperkalemia. 4. Severe hypertension. 5. ESRD. PLAN: 1. Agree with NG tube placement with the suction. 2. Dialysis today with potassium one bath for the last 1 hour. 3. Follow up stool for C. diff. 4. GI evaluation. 5. Monitor electrolyte closely. Thank you for the courtesy of this consultation. We will follow this patient closely with you. Mansi Rose MD
[2017-05-12 11:04] LABS: MAGNESIUM 2.5 mg/dL (1.7-2.2); PHOSPHOROUS 8.9 mg/dL (2.5-4.5)
--- NOTE | 2017-05-12 14:57 | PN ---
DATE: SUBJECTIVE: The patient is a 56-year-old, seen and examined while in dialysis, no more abdominal pain, and is not passing gas. She states she is a little hungry. PHYSICAL EXAMINATION: VITAL SIGNS: She is afebrile, pulse of 77, respirations of 22, and blood pressure 160/80. LUNGS: Bilateral fair airflow. No rhonchi or crackles. HEART: Reveals S1 and S2 audible. ABDOMEN: Soft. She has bowel sounds. Nasogastric tube in place. NEUROLOGIC: She is awake and alert, communicative. LABORATORY DATA: WBC is 5.7, hemoglobin is 12.5, hematocrit is 14, and platelets are 113. Chemistries: Sodium of 136, potassium of 5.9, chloride of 95, CO2 of 26, BUN of 92, creatinine of 12.6, and blood sugar is 93. DIAGNOSTIC STUDIES: CT scan shows partial small bowel obstruction. ASSESSMENT: 1. Gastroenteritis, but the patient says she is feeling hungry. No more diarrhea since this morning. Stool procedure is pending. 2. Partial small bowel obstruction. 3. End-stage renal disease, on hemodialysis. 4. Hypertension. 5. Peptic ulcer disease. 6. Active smoker. PLAN: We will continue the patient on IV fluids and analgesic as needed. She is getting Pepcid and antiemetic. We will follow up order for Flat plate abdominal x-ray and the patient wants nasogastric tube out. If her dilated loop has decompressed, we can remove the nasogastric tube later on today. Shawn Gomez MD
[2017-05-12] MEDS: Famotidine 20mg/50ml 20 MG/50 ML BAG IVPB SCH ×2 (15:06→22:31)
[2017-05-12] MEDS ORDERED: Iohexol 240 (50 ml) ONE (16:28)
[2017-05-12] MEDS ORDERED: Barium Sulfate Susp 2.1% w/v, 2.0% w/w 450 mL Bottle PO ONE (16:46)
--- NOTE | 2017-05-12 20:01 | RAD ---
HISTORY: f/up obstruction COMPARISON: No prior. FINDINGS: BOWEL: Normal. No obstruction. No free air. The nasogastric tube is in satisfactory position in the region of the gastric fundus. BONES: Normal. OTHER FINDINGS: Moderate cardiomegaly IMPRESSION: NG tube in satisfactory position. No evidence of obstruction
[2017-05-12] MEDS: Dextrose 5%/0.45% NS 1,000 ML IV SCH (22:31)
--- NOTE | 2017-05-12 22:41 | CT ---
EXAM: CT Abdomen and Pelvis Without Intravenous Contrast CLINICAL HISTORY: 56 years old, female; Pain; Abdominal pain; Acute; Additional info: Small bowel obstruction f/u TECHNIQUE: Axial computed tomography images of the abdomen and pelvis without intravenous contrast. All CT scans at this facility use one or more dose reduction techniques, viz.: automated exposure control; ma/kV adjustment per patient size (including targeted exams where dose is matched to indication; i.e. head); or iterative reconstruction technique. Coronal and sagittal reformatted images were created and reviewed. COMPARISON: CT - ABD PELVIS W/O PO OR IV CONT 05/11/2017 7:05:34 PM FINDINGS: Lower thorax: Small bilateral pleural effusions, with adjacent compressive atelectasis. Trace right basilar consolidation. The heart is enlarged. ABDOMEN: Liver: The liver is enlarged. Gallbladder and bile ducts: The gallbladder is surgically absent. No intra-extrahepatic biliary ductal dilation. Pancreas: Limited evaluation secondary to the lack of intravenous contrast. Spleen: No acute findings. Adrenals: No acute findings. Kidneys and ureters: The bilateral cheesh-na kidneys are atrophic. PELVIS: Bladder: No acute findings. Reproductive: No acute findings. Appendix: The appendix is of normal-caliber (series 2, image 122). ABDOMEN and PELVIS: Stomach and bowel: Nasogastric tube extends into the stomach. Oral contrast extends into the colon, without obstruction. Mural thickening is identified within multiple loops of small bowel within the left mid to upper quadrant, without surrounding inflammation or fluid to confirm an acute enteritis. Peritoneum: No acute findings. Lymph nodes: Limited evaluation without intravenous contrast. Vasculature: No aortic aneurysm. Calcified atherosclerotic disease. 15 mm splenic artery aneurysm. An additional 10 mm splenic artery aneurysm is also noted. Bones: No acute fracture. Moderate anasarca is present. IMPRESSION: Mural thickening within multiple loops of small bowel within the left mid to upper quadrant, without surrounding inflammation or fluid to confirm an acute enteritis. Examination is otherwise unchanged from previous study performed 05/11/2017.
--- NOTE | 2017-05-12 23:09 | CARD ---
APPROVED REPORT EKG Measurement Heart [id number] <Conclusion> Normal sinus rhythm Possible Left atrial enlargement Left axis deviation Left ventricular hypertrophy ST & T wave abnormality, consider lateral ischemia Prolonged QT Abnormal ECG
[2017-05-13] MEDS: HYDROmorphone 0.5 mg/0.5 ml ISec IVP PRN ×3 (02:53→18:41)
[2017-05-13 07:50] LABS: HEMATOCRIT 40.5 % (36.0-48.0); MEAN CELL VOLUME 87.1 fl (80.0-105.0); MEAN CORPUSCULAR HEMOGLOBIN 26.7 pg (25.0-35.0); MEAN CORPUSCULAR HGB CONC 30.6 g/dl (31.0-37.0); MEAN PLATELET VOLUME 9.2 fl (7.0-11.0); RED CELL DISTRIBUTION WIDTH 19.2 % (11.5-14.5); WHITE BLOOD COUNT 4.8 10^3/ul (4.5-11.0)
[2017-05-13] MEDS: Benzocaine/Menthol (Cepacol) Lozenge MT PRN ×2 (08:01→21:57)
[2017-05-13 08:19] LABS: ALB/GLOB RATIO 1.5 (1.1-1.8); BILIRUBIN,TOTAL 2.1 mg/dL (0.2-1.3); CALCIUM 8.8 mg/dL (8.4-10.5); TOTAL PROTEIN 5.7 g/dL (5.8-8.3)
--- NOTE | 2017-05-13 10:05 | CP.PCM.PN ---
Subjective - Date & Time of Evaluation Date of Evaluation: 05/13/17 Time of Evaluation: 09:00 - Subjective Subjective: Surgery Progress note. Dr. Cruz Pt seen and examined at bedside. No acute events overnight. Patient had a repeat CT scan with PO contrast last night. States that this morning, she has had a small BM and reports having flatus. Denies any abdominal pain. States that she is hungry and would like to try eating. She denies any N/V. No F/C. No CP/SOB. No new complaints Objective - Vital Signs/Intake and Output Vital Signs (last 24 hours): Temp Pulse Resp BP Pulse Ox 97.6 F 87 20 157/85 H 94 L 05/13/17 09:00 05/13/17 09:00 05/13/17 09:00 05/13/17 09:00 05/13/17 09:00 Intake and Output: 05/13/17 05/13/17 06:59 18:59 Intake Total 0 Balance 0 - Medications Medications: Current Medications Benzocaine/Menthol (Cepacol Sore Throat) 1 brittney MT Q2H PRN PRN Reason: Sore Throat Last Admin: 05/13/17 08:01 Dose: 1 brittney Hydromorphone HCl (Dilaudid) 0.5 mg IVP Q4H PRN PRN Reason: Pain, moderate (4-7) Last Admin: 05/13/17 02:53 Dose: 0.5 mg Dextrose/Sodium Chloride (Dextrose 5%/0.45% Ns 1000 Ml) 1,000 mls @ 40 mls/hr IV .Q24H LEX Last Admin: 05/12/17 22:31 Dose: 40 mls/hr Famotidine (Pepcid 20mg/50ml Premix) 20 mg in 50 mls @ 100 mls/hr IVPB Q12 LEX Last Admin: 05/12/17 22:31 Dose: 100 mls/hr Ibuprofen (Motrin Tab) 400 mg PO Q6H PRN PRN Reason: Pain, Mild (1-3) Last Admin: 05/13/17 08:00 Dose: 400 mg Metoprolol Tartrate (Lopressor) 25 mg PO BID LEX Last Admin: 05/12/17 15:05 Dose: 25 mg Ondansetron HCl (Zofran Inj) 4 mg IVP Q6H PRN PRN Reason: Nausea/Vomiting Last Admin: 05/12/17 20:41 Dose: 4 mg - Labs Labs: 05/13/17 07:42 05/13/17 07:42 - Constitutional Appears: Well, No Acute Distress - Head Exam Head Exam: ATRAUMATIC, NORMAL INSPECTION, NORMOCEPHALIC - Eye Exam Eye Exam: EOMI - ENT Exam ENT Exam: Mucous Membranes Moist - Respiratory Exam Respiratory Exam: NORMAL BREATHING PATTERN. absent: Decreased Breath Sounds, Rales, Rhonchi, Wheezes - Cardiovascular Exam Cardiovascular Exam: RRR, +S1, +S2. absent: JVD - GI/Abdominal Exam GI & Abdominal Exam: Soft. absent: Distended, Firm, Guarding, Rigid, Tenderness , Rebound - Neurological Exam Neurological Exam: Alert, Awake, Oriented x3 - Psychiatric Exam Psychiatric exam: Normal Affect, Normal Mood - Skin Skin Exam: Dry, Intact, Normal Color, Warm Assessment and Plan - Assessment and Plan (Free Text) Assessment: 56yo F with possible partial SBO. Repeat CT scan with some mild mural thickening of left to mid upper Small bowel , no definite signs of enteritis - DC NG tube today - CLD, advance diet as tolerated slowly - C Diff Antigen positive, toxin negative. Contact precautions. Repeat CDiff study - Pain management - serial abd exams Further recs as per Dr. Anthony Heredia PGY1 surgery pager: [phone]
[2017-05-13] MEDS: Famotidine 20mg/50ml 20 MG/50 ML BAG IVPB SCH ×2 (10:20→21:56)
--- NOTE | 2017-05-13 10:44 | CON ---
DATE: 05/12/2017. REASON FOR CONSULTATION: Abdominal pain, small bowel obstruction. HISTORY OF PRESENT ILLNESS: This is a 56-year-old patient with end-stage renal disease, history of chronic right upper quadrant discomfort, intermittent episodes of diarrhea, elevated chromogranin A level, history of C. difficile colitis, presented with an abdominal pain and also episode of diarrhea. She says it started about a week ago, progressively symptoms got worse and she had more abdominal pain, thus came to the emergency room. In the ER, she was found to have a dilated small bowel loop, suspected partial small bowel obstruction. She was placed on NG-tube. Now, she is feeling better. She wants her NG-tube to be taken out. History of loose bowel movements before. History of no bleeding per rectum. OTHER PAST MEDICAL HISTORY: Significant as above. History of COPD, history of pulmonary hypertension with elevated right ventricular systolic pressure was around 64. The patient was found to have a tricuspid regurgitation and mild pulmonary regurgitation. History of elevated chromogranin A level, but normal serum serotonin level. The patient did have octreotide scan done, which was negative. The patient also had a CT scan of the abdomen done multiple times before, did not have any focal lesions, status post cholecystectomy. The patient has pericardial effusion status post pericardial window, left eye visual impairment, COPD. ALLERGIES: HAS MULTIPLE ALLERGIES INCLUDING ASPIRIN, CIPRO, CITRUS, ENALAPRIL, HEPARIN, LATEX, PENICILLIN, SULFA, LEVOTHYROXINE, ACETAMINOPHEN, CODEINE,, LOVENOX AND IODINE. SOCIAL HISTORY: Positive for smoking. Denies alcohol use. REVIEW OF SYSTEMS: Positive as above. Other systems reviewed. PHYSICAL EXAMINATION: GENERAL: The patient lying on the bed, not in acute distress. VITAL SIGNS: Temperature 98.5, blood pressure 155/77, pulse 82, respirations 18. HEENT: Atraumatic, anicteric. NECK: Supple. HEART: S1 and S2 heard. LUNGS: Bilateral air entry present. ABDOMEN: Soft. Mild tenderness present in the epigastrium and right upper quadrant area. No rebound or guarding. EXTREMITIES: No cyanosis. No clubbing. NEUROLOGIC: Alert, oriented. Moves all the extremities. LABORATORY DATA: The patient's hemoglobin 12.5, hematocrit 40.9, WBC 5.7, platelets 113,000. Chemistry showed creatinine 12.6, potassium 5.6. In the morning, the patient did have a dialysis Total bilirubin 2.0. Alkaline phosphate 245. Initial CT scan was done without a contrast which showed a few dilated loops of a small bowel, aneurysm also noticed. There was a wall thickening of the duodenum and stomach noticed. IMPRESSION: This 56-year-old patient with a history of chronic abdominal pain, history of intermittent episodes of diarrhea, had extensive workup done in the past for chronic abdominal pain admitted with worsening of the abdominal pain and also nausea episode for the past 1 week. The patient was found to have a dilated loops of small bowel suggestive of partial small bowel obstruction, had an NG-tube placement, had significant improvement of the symptoms. CT showed some thickening in the proximal duodenal area. The patient did have an endoscopy and coloscopy done in 09/2016. This was reviewed and was found to have only mild gastritis. The examined duodenum was otherwise unremarkable. The patient did have colonoscopy also done at the same time, was found to have only a dimunitive polyp in the sigmoid and significant redundancy of the colon. The patient did have elevated chromogranin A level, it appeared to have slightly increasing trend. It was 296 and increased to 338. The patient subsequently had an octreotide scan on 03/03/2017, which was negative. CT done was without contrast which was negative for any obvious mass lesion. PLAN: We would recommend at this point: 1. Repeat the CAT scan with p.o. contrast to assess the level of obstruction. The patient is ALLERGIC TO IODINE, IV contrast was not requested. I have discussed with and Dr. Rose, who agreed with this oral contrast. The patient did have dialysis today. 2. Elevated chromogranin level. We would follow. Repeat the chromogranin levels. 3. The patient does have pulmonary hypertension. The patient also has a tricuspid regurgitation. Part of the symptoms of the right-sided abdominal pain could be related to hepatic congestion. We will consider discontinue NG-tube after review of the repeat CAT scan. We will continue to closely follow up her care and suggest further management based on the clinical course. Jesus Manuel Rosado MD [facility]
--- NOTE | 2017-05-13 12:28 | PN ---
DATE: 05/13/2017 SUBJECTIVE: The patient is seen lying in bed. She is comfortable. She reports diarrhea is left. She also reports minimal nausea and vomiting. She is still has some epigastric pain. NG tube is out. PHYSICAL EXAMINATION: GENERAL: Middle-aged lady lying in bed. VITAL SIGNS: Blood pressure 148/90, heart rate 78, respiratory rate 18, temperature 98. HEENT: Normocephalic, atraumatic. NECK: Supple, no JVD. LUNGS: Bilateral equal air entry, bilateral rhonchi, equal expansion. CARDIAC: S1 and S2. Regular rate and rhythm. No murmur, no rub. ABDOMEN: Soft, distended, positive tenderness in the epigastrium, bowel sounds present. EXTREMITIES: No lower extremity edema. INTAKE AND OUTPUT: Not charted. LABORATORY DATA: WBC 4.8, hemoglobin 12.4, hematocrit 40, platelets 74. Sodium 135, potassium 4.0, chloride 93, CO2 is 25, BUN 36, creatinine 7.2, glucose 76. CT of the abdomen, mural thickening within multiple loops of small bowel within the left mid to upper quadrant without surrounding inflammation. CURRENT MEDICATIONS: Cepacol, D5 normal saline at 40, Dilaudid, Lopressor, Motrin, Pepcid, Zofran. ASSESSMENT: 1. Colitis/enteritis. 2. Nausea and vomiting. 3. Hypertension. 4. End-stage renal disease. 5. History of Clostridium difficile colitis in the past. PLAN: 1. Continue maintenance IV fluids. 2. Stable dialysis yesterday. 3. Await GI recommendations. Mansi Rose MD
--- NOTE | 2017-05-13 13:41 | PN ---
DATE: SUBJECTIVE: The patient is a 56-year-old, seen and examined. No more nausea. She is hungry, wants to eat. No abdominal pain, has nasogastric tube removed. PHYSICAL EXAMINATION: VITAL SIGNS: She is afebrile, pulse 87, respirations 20, and blood pressure 157/85. HEART: S1 and S2 audible. LUNGS: Bilateral fair airflow. No rhonchi or crackle. ABDOMEN: Soft and nontender. No rebound. No guarding. NEUROLOGIC: She is awake, alert, oriented, and ambulatory. LABORATORY DATA: WBC is 4.8, hemoglobin 12.4, hematocrit 40, and platelets 74. Chemistry: Sodium 135, potassium 4, chloride 93, CO2 of 25, BUN 36, and creatinine 7.2. Blood sugar is 78. Total bilirubin is 2.1. She had CT scan of the abdomen and pelvis done with p.o. contrast that shows mural thickening within the multiple loops of small bowel within the left mid to upper quadrant without surrounding inflammation or fluid to confirm acute enteritis. ASSESSMENT: 1. Partial small bowel obstruction that seems to be removed. The patient is clinically stable. 2. End-stage renal disease, on hemodialysis. 3. Hypertension. 4. Gastritis. 5. Status post cholecystectomy. PLAN: We will continue the patient on IV fluid. I will discuss with Dr. Rosado. We will need to do inflammatory bowel disease serology and celiac disease profile. We will advance her diet. If she continued to tolerate, we can be discharged in the morning. Shawn Gomez MD
[2017-05-13] MEDS: Dextrose 5%/0.45% NS 1,000 ML IV SCH (22:11)
[2017-05-14] MEDS: HYDROmorphone 0.5 mg/0.5 ml ISec IVP PRN ×4 (00:12→15:56)
--- NOTE | 2017-05-14 00:14 | PN ---
SUBJECTIVE: This patient was seen and evaluated earlier. She feels much better now. The patient's NG tube has been removed. The repeat CT scan with oral contrast was reviewed. PHYSICAL EXAMINATION VITAL SIGNS: Temperature is 97.6, pulse 87, and blood pressure 157/85. HEENT: Atraumatic, anicteric. NECK: Supple. HEART: S1 and S2 heard. LUNGS: Bilateral air entry present. ABDOMEN: Soft. There is tenderness present in the epigastric area, periumbilical right upper quadrant area. There is no rebound or guarding. EXTREMITIES: No cyanosis. No clubbing. LABORATORY DATA: Hemoglobin 12.4, hematocrit 40.5, WBC 4.8, platelets come down to 74,, BUN 21, creatinine 7.2. LFTs; alkaline phosphate 255, total bilirubin of 2.1. DIAGNOSTIC DATA: The patient had a CT with p.o. contrast done,which revealed thickening within the multiple loops of small bowel. No significant inflammatory changes. IMPRESSION: This 56-year-old patient admitted with end-stage renal disease, on hemodialysis; history of tricuspid regurgitation; pulmonary hypertension, admitted with episodes of diarrhea and vomiting. The small bowel obstructive features improved with an NG tube decompression. Repeat CT show some thickening of the small bowel loops in multiple areas. No significant inflammatory changes. The etiology is unclear. Clinically, we need to rule out infectious enteritis. Other differential diagnoses, which are including inflammatory and ischemia. History of chronic diarrhea, history of recurrent C. diff colitis. The patient does have a elevated chromogranin A level. Repeat chromogranin A level requested. In view of the acute diarrhea and abdominal pain, rule out Kostmann syndrome. Serum serotonin level was normal. Octreotide scan was also normal. The patient did have some improvement with octreotide. The patient has been evaluated by the oncologist, Dr. Dominguez. The patient has also been evaluated by the oncologist. Plan for tertiary care referral. Other comorbidities include end-stage renal disease, on hemodialysis. We would recommend; 1. The patient on a clear liquid diet. 2. Followup of the stool cultures. We will continue to closely follow up her care and suggest further management based on the clinical course. Jesus Manuel Rosado MD
--- NOTE | 2017-05-14 09:06 | CP.PCM.PN ---
Subjective - Date & Time of Evaluation Date of Evaluation: 05/14/17 Time of Evaluation: 07:45 - Subjective Subjective: Surgery note for Dr. Cruz 56F seen and examined at bedside. Patient states pain is resolved. Denies nausea , vomiting. Admits to passing gas and denies further diarrhea. Objective - Vital Signs/Intake and Output Vital Signs (last 24 hours): Temp Pulse Resp BP Pulse Ox 98.6 F 76 20 134/76 98 05/14/17 07:40 05/14/17 07:40 05/14/17 07:40 05/14/17 07:40 05/14/17 07:40 Intake and Output: 05/14/17 05/14/17 06:59 18:59 Intake Total 1500 960 Balance 1500 960 - Medications Medications: Current Medications Benzocaine/Menthol (Cepacol Sore Throat) 1 brittney MT Q2H PRN PRN Reason: Sore Throat Last Admin: 05/13/17 21:57 Dose: 1 brittney Hydromorphone HCl (Dilaudid) 0.5 mg IVP Q4H PRN PRN Reason: Pain, moderate (4-7) Last Admin: 05/14/17 05:37 Dose: 0.5 mg Famotidine (Pepcid 20mg/50ml Premix) 20 mg in 50 mls @ 100 mls/hr IVPB Q12 [facility] Last Admin: 05/13/17 21:56 Dose: 100 mls/hr Ibuprofen (Motrin Tab) 400 mg PO Q6H PRN PRN Reason: Pain, Mild (1-3) Last Admin: 05/13/17 08:00 Dose: 400 mg Metoprolol Tartrate (Lopressor) 25 mg PO BID [facility] Last Admin: 05/13/17 22:11 Dose: Not Given Metronidazole (Flagyl) 500 mg PO TID [facility] PRN Reason: Protocol Stop: 05/23/17 14:01 Last Admin: 05/13/17 18:51 Dose: 500 mg Ondansetron HCl (Zofran Inj) 4 mg IVP Q6H PRN PRN Reason: Nausea/Vomiting Last Admin: 05/12/17 20:41 Dose: 4 mg - Labs Labs: 05/13/17 07:42 05/13/17 07:42 - Constitutional Appears: Non-toxic, No Acute Distress - Respiratory Exam Respiratory Exam: Clear to Ausculation Bilateral, NORMAL BREATHING PATTERN - Cardiovascular Exam Cardiovascular Exam: REGULAR RHYTHM, +S1, +S2 - GI/Abdominal Exam GI & Abdominal Exam: Soft. absent: Distended, Firm, Guarding, Rigid, Tenderness , Rebound - Neurological Exam Neurological Exam: Alert, Awake Assessment and Plan - Assessment and Plan (Free Text) Assessment: 56F with partial SBO Plan: - advance diet to regular - F/u repeat C.diff - continue antibiotics Further recs discuss with Dr. Anthony Vazquez, PGY2
--- NOTE | 2017-05-14 11:18 | PN ---
DATE: 05/14/2017 SUBJECTIVE: The patient has no complaints of any headaches or dizziness. No nausea. She states she slept well. She was able to tolerate some food yesterday. PHYSICAL EXAMINATION: VITAL SIGNS: Temperature is 98.6, pulse is 76, blood pressure is 134/76, and respirations are 20. GENERAL: The patient is lying in bed, flat, comfortable. HEENT: No oral lesion. Anicteric sclerae. Moist mucosa. NECK: No JVD, adenopathy, or thyromegaly. CARDIOVASCULAR: S1 and S2, regular. No murmurs, rubs, or gallops. LUNGS: Clear to auscultation bilaterally. No wheeze, rales, or rhonchi. ABDOMEN: Bowel sounds are positive, soft, nontender and nondistended. EXTREMITIES: No cyanosis, clubbing or edema. LABORATORY DATA: Creatinine is 7.2 and white count of 4.8. ASSESSMENT: 1. Colitis/enteritis. 2. Nausea and vomiting, improved. 3. Partial bowel obstruction. 4. End-stage renal disease, on hemodialysis. 5. Hypertension. 6. Gastritis. PLAN: The patient is currently comfortable. She is tolerating her diet. She is on IV fluids, D5 half normal saline. I will discontinue the patient's fluid at this point. She is on p.o. She is receiving ibuprofen for pain. She is on Zofran as needed. She has been followed by Dr. Rosado as well. Juan Francisco Guerra MD
[2017-05-14] MEDS: Famotidine 20mg/50ml 20 MG/50 ML BAG IVPB SCH (11:25)
[2017-05-14] MEDS: Sucralfate 1 gm/10 ml Oral Susp UD PO SCH (18:01)
--- NOTE | 2017-05-14 19:08 | PN ---
DATE: 05/14/2017 SUBJECTIVE: This patient was seen and evaluated earlier. The patient is off the NG tube by tolerating her diet. PHYSICAL EXAMINATION: VITAL SIGNS: Temperature is 98.6, pulse is 76, and blood pressure 134/76. HEENT: Atraumatic. Anicteric. NECK: Supple. HEART: S1 and S2 heard. LUNGS: Bilateral air entry present. ABDOMEN: Soft. There is mild tenderness in the left upper quadrant, left lower quadrant, and also towards the periumbilical area. There is no rebound or guarding. EXTREMITIES: No cyanosis or clubbing. NEUROLOGICAL: Alert, oriented, and moves all the extremities. LABORATORY DATA: There is no labs done today. Serum chromogranin level was requested and is still pending. IMPRESSION: This is a 55-year-old patient admitted with end-stage renal disease on hemodialysis with abdominal pain and she is suspected of small bowel obstruction. Subsequent CT with the oral contrast revealed a significant thickening of the small intestinal area suggestive of possible enteritis. No significant inflammatory changes were noticed otherwise in that area. The patient is clinically improving. Started on the low residue diet. The patient does have significantly elevated chromogranin A level, but octreotide scan was negative. The patient is trying to be referred to a tertiary care center. I had discussed with Dr. Dominguze in the past. I have detailed discussion with the patient again and explained about the findings. The patient's serum serotonin level was okay. Repeated the serum chromogranin A level. The plan is if it still shows elevated levels with diarrhea , we can empirically start the patient on octreotide and also if the patient is agreeable, we will refer the patient to tertiary care center for further recommendations regarding this. The patient also has a significant right pulmonary hypertension with increased right ventricular systolic pressure. The patient does have a hepatomegaly and tricuspid regurgitation. Thank you very much for allowing us to participate in the care of the patient. Jesus Manuel Rosado MD [place]
[2017-05-15] MEDS: HYDROmorphone 0.5 mg/0.5 ml ISec IVP PRN ×3 (02:10→21:48)
[2017-05-15] MEDS: Sucralfate 1 gm/10 ml Oral Susp UD PO SCH ×2 (06:59→15:40)
[2017-05-15 08:18] VITALS: RESP 20
--- NOTE | 2017-05-15 09:13 | CP.PCM.PN ---
Subjective - Date & Time of Evaluation Date of Evaluation: 05/15/17 Time of Evaluation: 09:13 - Subjective Subjective: Surgery Note for Dr. Cruz Patient seen and examined at bedside. Patient doing well with no new complaints at this time. Patient says she is having very mild abdominal pain but is feeling much better. She is having BMs and passing flatus. She is tolerating her diet. Patient denies nausea, vomiting, diarrhea, constipation, fever, chills , chest pain, and SOB. Objective - Vital Signs/Intake and Output Vital Signs (last 24 hours): Temp Pulse Resp BP Pulse Ox 98 F 72 20 139/80 97 05/15/17 08:18 05/15/17 08:18 05/15/17 08:18 05/15/17 08:18 05/15/17 08:18 Intake and Output: 05/15/17 05/15/17 06:59 18:59 Intake Total 1600 Output Total 240 Balance 1360 - Medications Medications: Current Medications Benzocaine/Menthol (Cepacol Sore Throat) 1 brittney MT Q2H PRN PRN Reason: Sore Throat Last Admin: 05/13/17 21:57 Dose: 1 brittney Hydromorphone HCl (Dilaudid) 0.5 mg IVP Q4H PRN PRN Reason: Pain, moderate (4-7) Last Admin: 05/15/17 02:10 Dose: 0.5 mg Metoprolol Tartrate (Lopressor) 25 mg PO BID [facility] Last Admin: 05/14/17 18:01 Dose: 25 mg Metronidazole (Flagyl) 500 mg PO TID [facility] PRN Reason: Protocol Stop: 05/23/17 14:01 Last Admin: 05/14/17 18:01 Dose: 500 mg Ondansetron HCl (Zofran Inj) 4 mg IVP Q6H PRN PRN Reason: Nausea/Vomiting Last Admin: 05/14/17 11:47 Dose: 4 mg Sucralfate (Carafate Oral Susp) 1 gm PO 0600,1600 [facility] Last Admin: 05/15/17 06:59 Dose: 1 gm - Labs Labs: 05/13/17 07:42 05/13/17 07:42 - Constitutional Appears: Non-toxic, No Acute Distress - Head Exam Head Exam: NORMAL INSPECTION - Eye Exam Eye Exam: EOMI - ENT Exam ENT Exam: Mucous Membranes Moist - Respiratory Exam Respiratory Exam: NORMAL BREATHING PATTERN. absent: Accessory Muscle Use, Respiratory Distress - Cardiovascular Exam Cardiovascular Exam: REGULAR RHYTHM. absent: Bradycardia, Tachycardia - GI/Abdominal Exam GI & Abdominal Exam: Soft, Tenderness (RLQ mildly TTP ). absent: Distended - Extremities Exam Extremities Exam: absent: Calf Tenderness, Joint Swelling - Neurological Exam Neurological Exam: Alert, Awake - Psychiatric Exam Psychiatric exam: Normal Affect, Normal Mood - Skin Skin Exam: Dry, Intact, Normal Color, Warm Assessment and Plan - Assessment and Plan (Free Text) Assessment: 56F with partial SBO and C. Diff antigen positive Plan: - No surgical intervention needed at this time - Please reconsult as needed - f/u repeat C. diff testing - continue abx - further recs per Dr. Anthony Bonilla, PGY1
[2017-05-15 11:41] LABS: HEMATOCRIT 38.4 % (36.0-48.0); MEAN CELL VOLUME 84.8 fl (80.0-105.0); MEAN CORPUSCULAR HEMOGLOBIN 27.4 pg (25.0-35.0); MEAN CORPUSCULAR HGB CONC 32.3 g/dl (31.0-37.0); MEAN PLATELET VOLUME 9.2 fl (7.0-11.0); RED CELL DISTRIBUTION WIDTH 19.3 % (11.5-14.5); WHITE BLOOD COUNT 4.3 10^3/ul (4.5-11.0)
[2017-05-15 11:58] LABS: ALB/GLOB RATIO 1.6 (1.1-1.8); BILIRUBIN,TOTAL 2.1 mg/dL (0.2-1.3); CALCIUM 9.3 mg/dL (8.4-10.5); MAGNESIUM 2.2 mg/dL (1.7-2.2); POTASSIUM 4.9 mmol/L (3.6-5.0); TOTAL PROTEIN 5.7 g/dL (5.8-8.3)
[2017-05-15 12:05] LABS: PHOSPHOROUS 8.7 mg/dL (2.5-4.5)
--- NOTE | 2017-05-15 12:15 | CP.PCM.PN ---
<Jennifer Barron - Last Filed: 05/15/17 12:15> Subjective - Date & Time of Evaluation Date of Evaluation: 05/15/17 Time of Evaluation: 10:15 - Subjective Subjective: Seen and examined and dialysis earlier today, the patient denies any episodes of diarrhea, denies nausea, vomiting or abdominal pain. Stool for C. difficile was positive antigen. Objective - Vital Signs/Intake and Output Vital Signs (last 24 hours): Temp Pulse Resp BP Pulse Ox 98 F 72 20 139/80 97 05/15/17 08:18 05/15/17 08:18 05/15/17 08:18 05/15/17 08:18 05/15/17 08:18 Intake and Output: 05/15/17 05/15/17 06:59 18:59 Intake Total 1600 Output Total 240 Balance 1360 - Medications Medications: Current Medications Benzocaine/Menthol (Cepacol Sore Throat) 1 brittney MT Q2H PRN PRN Reason: Sore Throat Last Admin: 05/13/17 21:57 Dose: 1 brittney Hydromorphone HCl (Dilaudid) 0.5 mg IVP Q4H PRN PRN Reason: Pain, moderate (4-7) Last Admin: 05/15/17 02:10 Dose: 0.5 mg Metoprolol Tartrate (Lopressor) 25 mg PO BID [facility] Last Admin: 05/14/17 18:01 Dose: 25 mg Metronidazole (Flagyl) 500 mg PO TID [facility] PRN Reason: Protocol Stop: 05/23/17 14:01 Last Admin: 05/14/17 18:01 Dose: 500 mg Ondansetron HCl (Zofran Inj) 4 mg IVP Q6H PRN PRN Reason: Nausea/Vomiting Last Admin: 05/14/17 11:47 Dose: 4 mg Sucralfate (Carafate Oral Susp) 1 gm PO 0600,1600 [facility] Last Admin: 05/15/17 06:59 Dose: 1 gm Vancomycin HCl (Vancocin 25 Mg/Ml (Oral Use)) 250 mg PO QID [facility] PRN Reason: Protocol Stop: 05/25/17 14:01 - Labs Labs: 05/15/17 11:08 05/15/17 11:08 - Constitutional Appears: No Acute Distress - Head Exam Head Exam: NORMOCEPHALIC - Eye Exam Eye Exam: Normal appearance. absent: Scleral icterus - ENT Exam ENT Exam: Mucous Membranes Moist - Neck Exam Neck Exam: Normal Inspection - Respiratory Exam Respiratory Exam: NORMAL BREATHING PATTERN. absent: Respiratory Distress - Cardiovascular Exam Cardiovascular Exam: +S1, +S2 - GI/Abdominal Exam GI & Abdominal Exam: Soft, Normal Bowel Sounds. absent: Guarding, Tenderness, Rebound - Extremities Exam Extremities Exam: Normal Capillary Refill. absent: Calf Tenderness, Pedal Edema - Neurological Exam Neurological Exam: Alert, Awake, Oriented x3 - Skin Skin Exam: Dry, Warm Assessment and Plan - Assessment and Plan (Free Text) Assessment: assessment: Abdominal pain with suspected small bowel obstruction, status post CT scan revealing thickening of small intestine possible enteritis, patient is improving clinically History of end-stage renal disease on dialysis C. difficile colitis positive antigen History of elevated chromogranin A, with negative octreotide scan Plan: Start oral vancomycin 250 mg 4 times a day for 10 days Soft low residual diet Follow-up repeat chromogranin A level Continue Carafate Pain management refer to tertiary care center for further evaluation Seen and discussed with Dr. Rosado. <Jesus Manuel Rosado V - Last Filed: 05/15/17 18:54> Objective - Vital Signs/Intake and Output Vital Signs (last 24 hours): Temp Pulse Resp BP Pulse Ox 99.2 F 79 20 157/83 H 97 05/15/17 16:00 05/15/17 17:29 05/15/17 16:00 05/15/17 17:29 05/15/17 16:00 Intake and Output: 05/15/17 05/15/17 06:59 18:59 Intake Total 1600 300 Output Total 240 Balance 1360 300 - Medications Medications: Current Medications Albuterol/Ipratropium (Duoneb 3 Mg/0.5 Mg (3 Ml) Ud) 3 ml IH [id number] [facility] Benzocaine/Menthol (Cepacol Sore Throat) 1 brittney MT Q2H PRN PRN Reason: Sore Throat Last Admin: 05/13/17 21:57 Dose: 1 brittney Hydromorphone HCl (Dilaudid) 0.5 mg IVP Q4H PRN PRN Reason: Pain, moderate (4-7) Last Admin: 05/15/17 13:53 Dose: 0.5 mg Metoprolol Tartrate (Lopressor) 25 mg PO BID [facility] Last Admin: 05/15/17 17:29 Dose: 25 mg Metronidazole (Flagyl) 500 mg PO TID [facility] PRN Reason: Protocol Stop: 05/23/17 14:01 Last Admin: 05/15/17 17:29 Dose: 500 mg Ondansetron HCl (Zofran Inj) 4 mg IVP Q6H PRN PRN Reason: Nausea/Vomiting Last Admin: 05/14/17 11:47 Dose: 4 mg Sucralfate (Carafate Oral Susp) 1 gm PO 0600,1600 [facility] Last Admin: 05/15/17 15:40 Dose: 1 gm Vancomycin HCl (Vancocin 25 Mg/Ml (Oral Use)) 250 mg PO QID [facility] PRN Reason: Protocol Stop: 05/25/17 14:01 Last Admin: 05/15/17 17:30 Dose: 250 mg - Labs Labs: 05/15/17 11:08 05/15/17 11:08 Attending/Attestation - Attestation I have personally seen and examined this patient.: Yes I have fully participated in the care of the patient.: Yes I have reviewed all pertinent clinical information, including history, physical exam and plan: Yes Notes (Text): This is an addendum to GI progress report dictated by Jennifer Barron APN.The patient was seen and examined earlier. Medical records, lab studies, imagings were reviewed. Last 24 hours events reviewed. Agreed with the above treatment plan as outlined in Jennifer Barron APN's notes the with the addition of the following feels much better and tolerating the diet Stools for C. difficile antigen positive on by mouth vancomycin The repeat with the by mouth contrast revealed a thickening of the small bowel loops suggestions soft probable enteritis this could be contributed to her condition of the partial small bowel obstruction. Repeat chromogranin A levels pending [facility] patients is thrombocytopenic . We would request a manual count, patient is only on Carafate off [id number] 05/15/17 18:49 05/15/17 18:52
--- NOTE | 2017-05-15 13:40 | PN ---
DATE: SUBJECTIVE: The patient is 56-year-old, seen and examined while in dialysis unit. She still has diarrhea, some abdominal discomfort, but better than before, and still does not have good appetite. PHYSICAL EXAMINATION: GENERAL: She is afebrile. VITAL SIGNS: Pulse 72, respirations 20, and blood pressure 139/80. LUNGS: Bilateral fair airflow. No rhonchi or crackles. HEART: S1 and S2 audible. ABDOMEN: Soft, periumbilical discomfort. NEUROLOGIC: She is awake, alert, and communicative. Moves all extremities. LABORATORY DATA: WBC 4.3, hemoglobin 12.4, hematocrit 38.4, and platelets 58. Chemistry: Sodium 135, potassium 4.0, chloride 93, CO2 of 25, BUN 36, and creatinine 7.2. Blood sugar of 76. LFTs are within normal limit. ASSESSMENT: 1. Intractable nausea and vomiting. Stool positive for Clostridium difficile. 2. End-stage renal disease, on hemodialysis. 3. Status post partial small bowel obstruction that has significantly resolved and improved upon repeat CT scan. 4. Chronic anemia. 5. Thrombocytopenia. PLAN: We will continue the patient on Flagyl and start her on p.o. vancomycin, watch another day, and if her diarrhea improve, we will make a discharge plan in the morning. Shawn Gomez MD
[2017-05-15] MEDS: Vancomycin 25 MG/ML PO SCH ×3 (13:45→21:49)
--- NOTE | 2017-05-15 15:25 | PN ---
DATE: 05/15/2017 SUBJECTIVE: The patient is seen lying in bed. She is awake. She is alert. She complains of cough. She complains of shortness of breath. She denies any chest tightness. She denies any abdominal pain at present. She denies any nausea, vomiting. She still has some diarrhea. PHYSICAL EXAMINATION: GENERAL APPEARANCE: Middle-aged lady lying in bed. VITAL SIGNS: Blood pressure 172/82, heart rate 73, respiratory rate 20, temperature 98. HEENT: Normocephalic, atraumatic. NECK: Supple, no JVD. LUNGS: Bilateral equal air entry, bilateral rhonchi, expiratory wheeze. CARDIAC: Si and S2, regular rate and rhythm, no murmur, no rub. ABDOMEN: Distended, soft, positive tenderness in the right upper quadrant. Bowel sounds present. EXTREMITIES: No lower extremity edema. INTAKE AND OUT OUTPUT: Not charted. LABORATORY DATA: WBC 4, hemoglobin 12, hematocrit 38, platelets 58. Sodium 130, potassium 4.9, chloride 90, CO2 18, BUN 58, creatinine 9.6, glucose 128, calcium 9.3, phosphorus 8.7 magnesium 2.2, total bilirubin 2.1, albumin 3.5. CURRENT MEDICATIONS: Carafate, Cepacol, Dilaudid, Flagyl, Lopressor, vancomycin 250 q.i.d., Zofran. ASSESSMENT: 1. Recurrent severe diarrhea. 2. Abdominal pain. 3. Hypertension. 4. End-stage renal disease. 5. Arthritis of the hips. PLAN 1. Followup serum chromogranin level A. 2. Continue empiric treatment for C. diff colitis. 3. Dialysis today. 4. GI note read and appreciated. Mansi Rose MD
[2017-05-15] MEDS: Albuterol-Ipratrop 3 mg / 0.5 (3 ml) UD IH SCH (20:20)
[2017-05-16] MEDS: HYDROmorphone 0.5 mg/0.5 ml ISec IVP PRN (02:00)
[2017-05-16] MEDS: Albuterol-Ipratrop 3 mg / 0.5 (3 ml) UD IH SCH ×3 (02:30→13:08)
[2017-05-16] MEDS: Sucralfate 1 gm/10 ml Oral Susp UD PO SCH (05:45)
[2017-05-16 08:37] VITALS: BP 134/68; PULSE 70; TEMP 98.4; O2SAT 99
--- NOTE | 2017-05-16 08:48 | CP.PCM.PN ---
Subjective - Date & Time of Evaluation Date of Evaluation: 05/16/17 Time of Evaluation: 07:15 - Subjective Subjective: General Surgery Progress Note for Dr. Cruz Patient seen and examined at bedside. No acute event overnight. Patient states abdominal pain is well controlled. She is having loose BMs and passing flatus. Tolerating diet. Patient has no other complaints today. Objective - Vital Signs/Intake and Output Vital Signs (last 24 hours): Temp Pulse Resp BP Pulse Ox 98.4 F 70 20 134/68 99 05/16/17 08:37 05/16/17 08:37 05/16/17 08:37 05/16/17 08:37 05/16/17 08:37 Intake and Output: 05/16/17 05/16/17 06:59 18:59 Intake Total 420 240 Balance 420 240 - Medications Medications: Current Medications Albuterol/Ipratropium (Duoneb 3 Mg/0.5 Mg (3 Ml) Ud) 3 ml IH [id number] [facility] Last Admin: 05/16/17 07:22 Dose: 3 ml Benzocaine/Menthol (Cepacol Sore Throat) 1 brittney MT Q2H PRN PRN Reason: Sore Throat Last Admin: 05/13/17 21:57 Dose: 1 brittney Hydromorphone HCl (Dilaudid) 0.5 mg IVP Q4H PRN PRN Reason: Pain, moderate (4-7) Last Admin: 05/16/17 02:00 Dose: 0.5 mg Metoprolol Tartrate (Lopressor) 25 mg PO BID [facility] Last Admin: 05/15/17 17:29 Dose: 25 mg Ondansetron HCl (Zofran Inj) 4 mg IVP Q6H PRN PRN Reason: Nausea/Vomiting Last Admin: 05/14/17 11:47 Dose: 4 mg Sucralfate (Carafate Oral Susp) 1 gm PO 0600,1600 [facility] Last Admin: 05/16/17 05:45 Dose: Not Given Vancomycin HCl (Vancocin 25 Mg/Ml (Oral Use)) 250 mg PO QID [facility] PRN Reason: Protocol Stop: 05/25/17 14:01 Last Admin: 05/15/17 21:49 Dose: 250 mg - Labs Labs: 05/15/17 11:08 05/15/17 11:08 - Constitutional Appears: No Acute Distress - Head Exam Head Exam: ATRAUMATIC, NORMOCEPHALIC - Eye Exam Eye Exam: Normal appearance - ENT Exam ENT Exam: Mucous Membranes Moist - Respiratory Exam Respiratory Exam: NORMAL BREATHING PATTERN - Cardiovascular Exam Cardiovascular Exam: REGULAR RHYTHM - GI/Abdominal Exam GI & Abdominal Exam: Soft, Tenderness (mild). absent: Distended, Firm, Guarding , Rebound - Neurological Exam Neurological Exam: Alert, Awake, Oriented x3 - Psychiatric Exam Psychiatric exam: Normal Affect, Normal Mood - Skin Skin Exam: Dry, Intact, Normal Color, Warm Assessment and Plan - Assessment and Plan (Free Text) Plan: 56F with partial SBO and C. Diff antigen positive - continue abx - Management as per primary - No surgical intervention at this time - further recs per Dr. Anthony Velazquez PGY1
[2017-05-16] MEDS: Vancomycin 25 MG/ML PO SCH (10:01)
--- NOTE | 2017-05-16 13:04 | CP.PCM.PN ---
Subjective - Date & Time of Evaluation Date of Evaluation: 05/16/17 Time of Evaluation: 09:40 - Subjective Subjective: Seen and examined at the bedside earlier this morning, the chart was reviewed. Patient denies nausea, vomiting, or abdominal pain. Tolerating oral intake. Had some semi-loose stools, no reports of bleeding. Objective - Vital Signs/Intake and Output Vital Signs (last 24 hours): Temp Pulse Resp BP Pulse Ox 98.4 F 70 20 134/68 99 05/16/17 08:37 05/16/17 09:59 05/16/17 08:37 05/16/17 09:59 05/16/17 08:37 Intake and Output: 05/16/17 05/16/17 06:59 18:59 Intake Total 420 240 Balance 420 240 - Medications Medications: Current Medications Albuterol/Ipratropium (Duoneb 3 Mg/0.5 Mg (3 Ml) Ud) 3 ml IH [id number] [facility] Last Admin: 05/16/17 07:22 Dose: 3 ml Benzocaine/Menthol (Cepacol Sore Throat) 1 brittney MT Q2H PRN PRN Reason: Sore Throat Last Admin: 05/13/17 21:57 Dose: 1 brittney Hydromorphone HCl (Dilaudid) 0.5 mg IVP Q4H PRN PRN Reason: Pain, moderate (4-7) Last Admin: 05/16/17 02:00 Dose: 0.5 mg Metoprolol Tartrate (Lopressor) 25 mg PO BID [facility] Last Admin: 05/16/17 09:59 Dose: 25 mg Ondansetron HCl (Zofran Inj) 4 mg IVP Q6H PRN PRN Reason: Nausea/Vomiting Last Admin: 05/14/17 11:47 Dose: 4 mg Sucralfate (Carafate Oral Susp) 1 gm PO 0600,1600 [facility] Last Admin: 05/16/17 05:45 Dose: Not Given Vancomycin HCl (Vancocin 25 Mg/Ml (Oral Use)) 250 mg PO QID [facility] PRN Reason: Protocol Stop: 05/25/17 14:01 Last Admin: 05/16/17 10:01 Dose: 250 mg - Labs Labs: 05/15/17 11:08 05/15/17 11:08 - Constitutional Appears: No Acute Distress - Head Exam Head Exam: NORMOCEPHALIC - Eye Exam Eye Exam: Normal appearance. absent: Scleral icterus - ENT Exam ENT Exam: Mucous Membranes Moist - Neck Exam Neck Exam: Normal Inspection - Respiratory Exam Respiratory Exam: NORMAL BREATHING PATTERN. absent: Respiratory Distress - Cardiovascular Exam Cardiovascular Exam: +S1, +S2 - GI/Abdominal Exam GI & Abdominal Exam: Soft, Normal Bowel Sounds. absent: Guarding, Tenderness, Rebound - Extremities Exam Extremities Exam: absent: Calf Tenderness, Pedal Edema - Neurological Exam Neurological Exam: Alert, Awake, Oriented x3 - Skin Skin Exam: Dry, Warm Assessment and Plan - Assessment and Plan (Free Text) Assessment: assessment: Abdominal pain with suspected small bowel obstruction, status post CT scan revealing thickening of small intestine possible enteritis, patient is improving clinically History of end-stage renal disease on dialysis C. difficile colitis positive antigen History of elevated chromogranin A, with negative octreotide scan Plan: continue oral vancomycin 250 mg 4 times a day for 10 days Soft low residual diet Follow-up repeat chromogranin A level, result stilkl pending Continue Carafate Pain management refer to tertiary care center for further evaluation ?neuroendocrine tumor, spoke to patient this am, will give information for Dr. Mock, in [place] Seen and discussed with Dr. Rosado.
--- NOTE | 2017-05-16 23:01 | DS ---
HISTORY OF PRESENT ILLNESS: The patient is a 56-year-old seen and examined. She states her diarrhea is almost gone, feeling better. Eating and tolerating. PHYSICAL EXAMINATION: VITAL SIGNS: She is afebrile, pulse 70, respirations 20, and blood pressure 134/68. LUNGS: Bilateral fair airflow. No rhonchi or crackle. HEART: S1 and S2 audible. ABDOMEN: Soft and nontender. No rebound. No guarding. NEUROLOGIC: The patient is awake and alert. Able to communicate. LABORATORY EXAM: Stool for C. diff, two samples positive. ASSESSMENT: 1. Clostridium difficile colitis. 2. Intractable diarrhea secondary to Clostridium difficile. 3. End-stage renal disease, on hemodialysis. 4. History of hypertension. 5. History of gastritis. PLAN: The patient will be sent home on vancomycin 250 q.i.d. for 10 days. He is advised to follow up with me and Dr. Rosado as outpatient to make sure the C. diff is gone, do repeat her stool . Shawn Gomez MD
--- NOTE | 2017-05-17 15:59 | PN ---
DATE: 05/16/2017 SUBJECTIVE: The patient is seen lying in bed. She is awake. She is alert. She is comfortable. She complains of intermittent abdominal pain, diarrhea but less frequent. PHYSICAL EXAMINATION: GENERAL: Middle-aged lady lying in bed. VITAL SIGNS: Blood pressure 134/68, heart rate 70, respiratory rate 20, temperature 98.4. HEENT: Normocephalic, atraumatic, positive pallor. NECK: Supple, no JVD. LUNGS: Bilateral equal air entry, bilateral rhonchi, expiratory wheeze. CARDIAC: S1 and S2, regular rate and rhythm, no murmur, no rub. ABDOMEN: Soft, nondistended, mild tenderness in the upper quadrant. Bowel sounds present. EXTREMITIES: No lower extremity edema. INTAKE AND OUTPUT: Not charted. LABORATORY DATA: No new labs. MEDICATIONS: List reviewed. ASSESSMENT: 1. Enteritis. 2. History of Clostridium difficile colitis. 3. Elevated Chromogranin A. 4. Hypertension. 5. End-stage renal disease. PLAN: 1. Continue p.o. vancomycin as per GI recommendations. 2. Advance diet. 3. Stable dialysis yesterday. 4. Close follow up. Mansi Rose MD
== END 2017-05-16 14:06 | disposition home or self-care (01) | DRG 388 ==
LOC: ED 16:59 → ERH 05-12 01:38 → 3RSO 05-12 03:45
PROVIDERS: ADMIT Internal Medicine; ATTEND Internal Medicine
PROC: 0D9670Z Drainage of Stomach with Drainage Device, Via Natural or Artificial Opening (ICD-10-PCS; principal; 2017-05-12)
PROC: 5A1D70Z Performance of Urinary Filtration, Intermittent, Less than 6 Hours Per Day (ICD-10-PCS; 2017-05-12)
DX: K56.600 Partial intestinal obstruction, unspecified as to cause (principal); N18.6 End stage renal disease; I13.2 Hypertensive heart and chronic kidney disease with heart failure and with stage 5 chronic kidney disease, or end stage renal disease; I31.3 Pericardial effusion (noninflammatory); D69.6 Thrombocytopenia, unspecified; A04.72 Enterocolitis due to Clostridium difficile, not specified as recurrent; E87.5 Hyperkalemia; K76.1 Chronic passive congestion of liver; I50.9 Heart failure, unspecified; I27.20 Pulmonary hypertension, unspecified; K29.70 Gastritis, unspecified, without bleeding; J44.9 Chronic obstructive pulmonary disease, unspecified; H54.62 Unqualified visual loss, left eye, normal vision right eye; F17.210 Nicotine dependence, cigarettes, uncomplicated; K27.9 Peptic ulcer, site unspecified, unspecified as acute or chronic, without hemorrhage or perforation; M51.9 Unspecified thoracic, thoracolumbar and lumbosacral intervertebral disc disorder; D63.1 Anemia in chronic kidney disease; M16.0 Bilateral primary osteoarthritis of hip; Z96.643 Presence of artificial hip joint, bilateral; I07.1 Rheumatic tricuspid insufficiency; K21.9 Gastro-esophageal reflux disease without esophagitis; Z99.2 Dependence on renal dialysis; Z88.6 Allergy status to analgesic agent; Z88.0 Allergy status to penicillin; Z88.2 Allergy status to sulfonamides; Z91.040 Latex allergy status

== ENCOUNTER 2017-06-21 20:37 | Inpatient (IN) | payer MEDICARE, BC ==
--- NOTE | 2017-06-21 21:10 | ED PDOC ---
Arrival/HPI - General Time Seen by Provider: 06/21/17 20:40 Historian: Patient - History of Present Illness Narrative History of Present Illness (Text): 06/21/17 20:55 Jacqui Kraus is a 56 year old female, whose past medical history includes ESRD on hemodialysis (Monday/Monday/Monday), hypertension, COPD, chronic anemia, GERD, C. diff, chronic pancreatitis, and small brain aneurysm, who presents to the Emergency department complaining of nausea, vomiting, and diarrhea with dark stools for the past couple of days. Patient states she has occasional shortness of breath, but denies any currently. Patient denies any fever, chills , chest pain, headache, or any other complaints. Patient states she feels generally weak. Patient states she missed her dialysis appointment earlier today due to symptoms. PMD: Dr. Gomez Time/Duration: Other (couple of days) Symptom Onset: Gradual Symptom Course: Unchanged Activities at Onset: Light Context: Home Past Medical History - Provider Review Nursing Documentation Reviewed: Yes - Past History Past History: Non-Contributing - Infectious Disease Hx of Infectious Diseases: None, C.diff - Tetanus Immunization Tetanus Immunization: Up to Date - Cardiac Hx Cardiac Disorders: Yes Hx Congestive Heart Failure: Yes Hx Hypertension: Yes - Pulmonary Hx Respiratory Disorders: Yes Hx Chronic Obstructive Pulmonary Disease (COPD): Yes - Neurological Hx Neurological Disorder: No - HEENT Hx HEENT Disorder: Yes Hx Blind: Yes (parial, left eye) - Renal Hx Renal Disorder: Yes Date of Last Dialysis Treatment: 05/05/17 Hx Renal Failure: Yes (Hemodialysis (M,W,F)) - Endocrine/Metabolic Hx Endocrine Disorders: Yes (parathyroid) - Hematological/Oncological Hx Blood Disorders: Yes Hx Anemia: Yes - Integumentary Hx Dermatological Disorder: No - Musculoskeletal/Rheumatological Hx Falls: No - Gastrointestinal Hx Gastrointestinal Disorders: Yes Hx Gastroesophageal Reflux: Yes - Genitourinary/Gynecological Hx Genitourinary Disorders: No - Psychiatric Hx Psychophysiologic Disorder: No Hx Substance Use: No - Surgical History Hx Cholecystectomy: Yes Hx Orthopedic Surgery: Yes (bilateral hips) Other/Comment: left arm fistula placemnt, c-sectionx2, tonsilectomy - Anesthesia Hx Anesthesia: Yes Hx Anesthesia Reactions: No Hx Malignant Hyperthermia: No - Suicidal Assessment Feels Threatened In Home Enviroment: No Family/Social History - Physician Review Nursing Documentation Reviewed: Yes Family/Social History: Unknown Family HX Smoking Status: Heavy Smoker > 10 Cigarettes Daily Hx Alcohol Use: No Hx Substance Use: No Hx Substance Use Treatment: No Allergies/Home Meds Allergies/Adverse Reactions: Allergies aspirin Allergy (Severe, Verified 05/11/17 17:17) ANAPHYLAXIS ciprofloxacin Allergy (Severe, Verified 05/11/17 17:17) ANAPHYLAXIS [place] And Derivatives Allergy (Severe, Verified 05/11/17 17:17) ANAPHYLAXIS enalapril Allergy (Severe, Verified 05/11/17 17:17) HIVES heparin Allergy (Severe, Verified 05/11/17 17:17) ANAPHYLAXIS latex Allergy (Severe, Verified 05/11/17 17:17) ANAPHYLAXIS Penicillins Allergy (Severe, Verified 05/11/17 17:17) ANAPHYLAXIS Sulfa (Sulfonamide Antibiotics) Allergy (Severe, Verified 05/11/17 17:17) ANAPHYLAXIS levothyroxine sodium [From Levoxyl] Allergy (Intermediate, Verified 05/11/17 17: 17) RASH acetaminophen Allergy (Mild, Verified 05/11/17 17:17) RASH codeine Allergy (Mild, Verified 05/11/17 17:17) RASH enoxaparin Allergy (Mild, Verified 05/11/17 17:17) RASH iodine Allergy (Mild, Verified 05/11/17 17:17) RASH influenza virus vaccine, specific Allergy (Verified 05/11/17 17:17) hives Home Medications: Home Meds Medication Instructions Recorded Confirmed Unobtainable 06/22/17 06/22/17 Review of Systems - Physician Review All systems were reviewed & negative as marked: Yes - Review of Systems Constitutional: Other (+generally weak). absent: Fevers Eyes: Normal ENT: Normal Respiratory: SOB. absent: Cough Cardiovascular: Normal. absent: Chest Pain Gastrointestinal: Diarrhea, Nausea, Vomiting Genitourinary Female: Normal. absent: Dysuria, Frequency, Hematuria, Urine Output Changes Musculoskeletal: Normal. absent: Back Pain Skin: Normal. absent: Rash Neurological: Normal. absent: Headache, Dizziness Endocrine: Normal Hemo/Lymphatic: Normal Psychiatric: Normal Physical Exam Vital Signs Reviewed: Yes Vital Signs Temp Pulse Resp BP Pulse Ox 06/22/17 02:34 97.9 F 82 17 107/41 L 06/22/17 02:14 97.9 F 84 18 107/41 L 99 06/22/17 00:53 80 17 118/54 L 100 06/21/17 21:25 98.4 F 81 16 128/48 L 96 Temperature: Afebrile Blood Pressure: Normal Pulse: Regular Respiratory Rate: Normal Appearance: Positive for: Well-Appearing, Non-Toxic, Comfortable Pain Distress: None Mental Status: Positive for: Alert and Oriented X 3 - Systems Exam Head: Present: Atraumatic, Normocephalic Pupils: Present: PERRL Extroacular Muscles: Present: EOMI Conjunctiva: Present: Other (pale) Ears: Present: Normal, NORMAL TM, Normal Canal. No: Erythema, TM Bulging, Fluid Mouth: Present: Moist Mucous Membranes Pharnyx: Present: Normal. No: ERYTHEMA, EXUDATE, TONSILS ENLARGED, Peritonsilar Swelling, Uvular Deviation, Muffled/Hoarse Voice, Strider, Soft Palate/Uvular Edema Nose (External): Present: Atraumatic Nose (Internal): Present: Normal Inspection Neck: Present: Normal Range of Motion Respiratory/Chest: Present: Clear to Auscultation, Good Air Exchange. No: Respiratory Distress, Accessory Muscle Use Cardiovascular: Present: Regular Rate and Rhythm, Normal S1, S2. No: Murmurs Abdomen: Present: Normal Bowel Sounds. No: Tenderness, Distention, Peritoneal Signs Rectal: Present: Occult Blood (guaic positive) Back: Present: Normal Inspection Upper Extremity: Present: Normal Inspection. No: Cyanosis, Edema Lower Extremity: Present: Normal Inspection. No: Edema Neurological: Present: GCS=15, CN II-XII Intact, Speech Normal, Motor Func Grossly Intact, Normal Sensory Function Skin: Present: Warm, Dry, Pale. No: Rashes Psychiatric: Present: Alert, Oriented x 3, Normal Insight, Normal Concentration Medical Decision Making ED Course and Treatment: 06/21/17 20:55 Impression: 56 year old female c/o nausea, vomiting, and diarrhea. Plan: -- EKG -- Chest X-Ray -- Labs, cardiac enzymes, lipase -- Reassess and disposition Prior Visits: Notes and results from previous visits were reviewed. On 05/11/2017, pt was seen in the ED for abdominal pain, nausea, vomiting, and diarrhea. Pt was admitted to the hospital for further evaluation. Progress Notes: Reviewed EKG, NSR at 85 bpm. LVH with repolarization abnormality. Non-specific ST/T wave changes. Unchanged from 05/11/17. 06/21/17 23:39 Reviewed radiology, CXR shows no acute processes. 06/21/17 23:56 Labs noted, hgb: 4.2, hct: 13.1. Blood type/screen order, will transfuse pt. 06/22/17 00:[address] Cervantes, kindergartners helper, who is aware and agrees to evaluate pt. residential worker notified. 06/22/17 00:[address] Gomez, who is aware and agrees with plan. Accepts pt in to her service. Requests Dr. Rose and Dr. Rosado on consult. 06/22/17 01:[address] Cervantes, present in ER to evaluate pt. Pt will be admitted to ICU for anemia, GI bleed, and ESRD under Dr. Gomez's service. - Critical Care Critical Care Minutes: 30 minutes - Lab Interpretations Lab Results: 06/21/17 23:24 06/21/17 23:24 Lab Results 06/21/17 23:24: WBC 7.4 D, RBC 1.51 L, Hgb 4.1 L* D, Hct 13.1 L*, MCV 86.8, MCH 27.2, MCHC 31.3, RDW 19.2 H, Plt Count 132, MPV 9.6 06/21/17 23:24: Sodium 137, Potassium 5.7 H* D, Chloride 100, Carbon Dioxide 21 , Anion Gap 22 H, BUN 196 H*, Creatinine 9.6 H*, Est GFR ( Amer) 5, Est GFR (Non-Af Amer) 4, Random Glucose 121 H, Calcium 8.8, Total Bilirubin 1.1, AST 25, ALT 43, Alkaline Phosphatase 178 H D, Lactate Dehydrogenase 352, Total Creatine Kinase 47, Troponin I 0.05 D, Total Protein 4.4 L, Albumin 2.4 L, Globulin 2.0, Albumin/Globulin Ratio 1.2, Lipase 69 I have reviewed the lab results: Yes Interpretation: Abnormal lab values - RAD Interpretation Radiology Orders: 06/21/17 20:56 CHEST PORTABLE [RAD] Stat Certified Ophthalmic Assistant: ED Physician - EKG Interpretation Interpreted by ED Physician: Yes Type: 12 lead EKG - Medication Orders Current Medication Orders: Atorvastatin Calcium (Lipitor) 80 mg PO DIN LEX Cinacalcet (Sensipar) 30 mg PO DIN LEX Pantoprazole Sodium (Protonix 40mg Ivpb) 40 mg in 100 mls @ 20 mls/hr IVPB .Q5H LEX Metoprolol Tartrate (Lopressor) 25 mg PO BID LEX Ondansetron HCl (Zofran Inj) 4 mg IVP Q6H PRN PRN Reason: Nausea/Vomiting Last Admin: 06/22/17 01:29 Dose: 4 mg IVP Administration Document 06/22/17 01:29 SS (Rec: 06/22/17 01:29 [facility] [id number] Charges for Administration # of IVP Administrations 1 Sevelamer HCl (Renagel) 800 mg PO WM LEX Tramadol HCl (Ultram) 50 mg PO Q6 PRN PRN Reason: Pain, moderate (4-7) Last Admin: 06/22/17 02:11 Dose: 50 mg MAR Pain Assessment Document 06/22/17 02:11 IT (Rec: 06/22/17 02:12 [place] [facility] [id number] Pain Reassessment Is this a pain reassessment? No Sleep Is patient sleeping during reassessment? No Presence of Pain Presence of Pain Yes Pain Scale Used Pain Scale Used Numeric Location Pain Location Body Site Abdomen Description Pain Behavior Moaning Withdrawal from Touch Discontinued Medications Metoprolol Tartrate (Lopressor) 25 mg PO BID LEX Pantoprazole Sodium (Protonix Inj) 80 mg IVP STAT STA Stop: 06/22/17 01:09 Last Admin: 06/22/17 02:08 Dose: 80 mg IVP Administration Document 06/22/17 02:08 SS (Rec: 06/22/17 02:08 SS [facility] [id number]) Charges for Administration # of IVP Administrations 1 Sodium Polystyrene Sulfonate (Kayexalate Susp) 30 gm PO STAT STA Stop: 06/22/17 01:09 - Scribe Statement The provider has reviewed the documentation as recorded by the Corinne Friedman Provider Scribe Attestation: All medical record entries made by the Scribe were at my direction and personally dictated by me. I have reviewed the chart and agree that the record accurately reflects my personal performance of the history, physical exam, medical decision making, and the department course for this patient. I have also personally directed, reviewed, and agree with the discharge instructions and disposition. Disposition/Present on Arrival - Present on Arrival Any Indicators Present on Arrival: No History of DVT/PE: No History of Uncontrolled Diabetes: No Urinary Catheter: No History of Decub. Ulcer: No History Surgical Site Infection Following: None - Disposition Have Diagnosis and Disposition been Completed?: Yes Diagnosis: Anemia, GI bleed, ESRD (end stage renal disease) Disposition: HOSPITALIZED Disposition Time: 00:45 Patient Plan: Admission Patient Problems: Current Active Problems Problem Status Onset Anemia Acute ESRD (end stage renal disease) Acute GI bleed Acute Condition: STABLE
[2017-06-21 23:41] LABS: MEAN CELL VOLUME 86.8 fl (80.0-105.0); MEAN CORPUSCULAR HEMOGLOBIN 27.2 pg (25.0-35.0); MEAN CORPUSCULAR HGB CONC 31.3 g/dl (31.0-37.0); MEAN PLATELET VOLUME 9.6 fl (7.0-11.0); RED CELL DISTRIBUTION WIDTH 19.2 % (11.5-14.5); WHITE BLOOD COUNT 7.4 10^3/ul (4.5-11.0)
[2017-06-22] LABS: HEMATOCRIT 13.1 % (36.0-48.0)
[2017-06-22 00:03] LABS: TROPONIN I 0.05 ng/mL
[2017-06-22 00:19] LABS: ALB/GLOB RATIO 1.2 (1.1-1.8); BILIRUBIN,TOTAL 1.1 mg/dL (0.2-1.3); CALCIUM 8.8 mg/dL (8.4-10.5); TOTAL PROTEIN 4.4 g/dL (5.8-8.3)
[2017-06-22 00:38] LABS: POTASSIUM 5.7 mmol/L (3.6-5.0)
[2017-06-22] MEDS ORDERED: Sod Polystyrene Sulf 15 gm/60 ml Susp PO STA (01:08)
--- NOTE | 2017-06-22 01:36 | CP.PCM.CON ---
<Albert Valencia - Last Filed: 06/22/17 04:11> History of Present Illness - History of Present Illness History of Present Illness: 56 year old female with past medical history of ESRD on hemodialysis (Monday/ Monday/Monday), hypertension, COPD, chronic anemia, GERD, C. diff, chronic pancreatitis, and small brain aneurysm, who presents to the Emergency department complaining of nausea, vomiting, and diarrhea with dark stools for the past 2 days. Patient states she has vomiting multiple times including several times today. She states the vomit contained some blood. In addition, she states she has felt weak and has some shortness of breath and therefore did not have her dialysis session today. Patient denies chest pain, abdominal pain, fever, sore throat, sick contacts or any other complaints. Past Medical History: ESRD on hemodialysis (Monday/Monday/Monday), hypertension, COPD, chronic anemia, GERD, C. diff, chronic pancreatitis, and small brain aneurysm Past Surgical History: cholecysectomy, pericardial window, b/l hip replacement + hardware removal Allergy: aspirin, ciprofloxacin, citrus, enalapril, heparin, latex, penicillin, sulfa, levothyroxine, acetominophen, codeine, enoxaparin, iodine Family History: unknown Social: smokes 1PPD for about 30 years, denies alcohol or illicit drug use Medications: reviewed Review of Systems - Constitutional Constitutional: Headache, Weakness - EENT Eyes: absent: Blurred Vision, Change in Vision Nose/Mouth/Throat: absent: Nasal Congestion, Sore Throat - Cardiovascular Cardiovascular: Dyspnea. absent: Chest Pain, Rapid Heart Rate, Slow Heart Rate - Respiratory Respiratory: Dyspnea. absent: Cough, Chest Congestion - Gastrointestinal Gastrointestinal: Melena, Nausea, Vomiting. absent: Abdominal Pain - Genitourinary Genitourinary: absent: Difficulty Urinating - Musculoskeletal Musculoskeletal: absent: Numbness, Tingling - Neurological Neurological: Weakness. absent: Dizziness, Tingling Past Patient History - Infectious Disease Hx of Infectious Diseases: None, C.diff - Tetanus Immunizations Tetanus Immunization: Up to Date - Past Medical History & Family History Past Medical History?: Yes - Past Social History Smoking Status: Heavy Smoker > 10 Cigarettes Daily - CARDIAC Hx Cardiac Disorders: Yes Hx Congestive Heart Failure: Yes Hx Hypertension: Yes - PULMONARY Hx Respiratory Disorders: Yes Hx Chronic Obstructive Pulmonary Disease (COPD): Yes - NEUROLOGICAL Hx Neurological Disorder: No - HEENT Hx HEENT Problems: Yes Hx Blind: Yes (parial, left eye) - RENAL Hx Chronic Kidney Disease: Yes Date of Last Dialysis Treatment: 05/05/17 Hx Renal Failure: Yes (Hemodialysis (M,W,F)) - ENDOCRINE/METABOLIC Hx Endocrine Disorders: Yes (parathyroid) - HEMATOLOGICAL/ONCOLOGICAL Hx Blood Disorders: Yes Hx Anemia: Yes - INTEGUMENTARY Hx Dermatological Problems: No - MUSCULOSKELETAL/RHEUMATOLOGICAL Hx Falls: No - GASTROINTESTINAL Hx Gastrointestinal Disorders: Yes Hx Gastroesophageal Reflux: Yes - GENITOURINARY/GYNECOLOGICAL Hx Genitourinary Disorders: No - PSYCHIATRIC Hx Psychophysiologic Disorder: No Hx Substance Use: No - SURGICAL HISTORY Hx Cholecystectomy: Yes Hx Orthopedic Surgery: Yes (bilateral hips) Other/Comment: left arm fistula placemnt, c-sectionx2, tonsilectomy - ANESTHESIA Hx Anesthesia: Yes Hx Anesthesia Reactions: No Hx Malignant Hyperthermia: No Meds Allergies/Adverse Reactions: Allergies Allergy/AdvReac Type Severity Reaction Status Date / Time aspirin Allergy Severe ANAPHYLAXIS Verified 05/11/17 17:17 ciprofloxacin Allergy Severe ANAPHYLAXIS Verified 05/11/17 17:17 [place] And Derivatives Allergy Severe ANAPHYLAXIS Verified 05/11/17 17:17 enalapril Allergy Severe HIVES Verified 05/11/17 17:17 heparin Allergy Severe ANAPHYLAXIS Verified 05/11/17 17:17 latex Allergy Severe ANAPHYLAXIS Verified 05/11/17 17:17 Penicillins Allergy Severe ANAPHYLAXIS Verified 05/11/17 17:17 Sulfa (Sulfonamide Allergy Severe ANAPHYLAXIS Verified 05/11/17 17:17 Antibiotics) levothyroxine sodium Allergy Intermediate RASH Verified 05/11/17 17:17 [From Levoxyl] acetaminophen Allergy Mild RASH Verified 05/11/17 17:17 codeine Allergy Mild RASH Verified 05/11/17 17:17 enoxaparin Allergy Mild RASH Verified 05/11/17 17:17 iodine Allergy Mild RASH Verified 05/11/17 17:17 influenza virus vaccine, Allergy hives Verified 05/11/17 17:17 specific - Medications Medications: Current Medications Atorvastatin Calcium (Lipitor) 80 mg PO DIN LEX Cinacalcet (Sensipar) 30 mg PO DIN LEX Pantoprazole Sodium (Protonix 40mg Ivpb) 40 mg in 100 mls @ 20 mls/hr IVPB .Q5H LEX Metoprolol Tartrate (Lopressor) 25 mg PO BID LEX Ondansetron HCl (Zofran Inj) 4 mg IVP Q6H PRN PRN Reason: Nausea/Vomiting Last Admin: 06/22/17 01:29 Dose: 4 mg Sevelamer HCl (Renagel) 800 mg PO WM LEX Tramadol HCl (Ultram) 50 mg PO Q6 PRN PRN Reason: Pain, moderate (4-7) Physical Exam - Constitutional Appears: Toxic - Head Exam Head Exam: ATRAUMATIC, NORMAL INSPECTION, NORMOCEPHALIC - Eye Exam Eye Exam: EOMI, Normal appearance, Scleral icterus Pupil Exam: NORMAL ACCOMODATION, PERRL - ENT Exam ENT Exam: Mucous Membranes Moist - Neck Exam Neck exam: Positive for: Normal Inspection - Respiratory Exam Respiratory Exam: Clear to Auscultation Bilateral, NORMAL BREATHING PATTERN - Cardiovascular Exam Cardiovascular Exam: REGULAR RHYTHM, +S1, +S2, Systolic Murmur - GI/Abdominal Exam GI & Abdominal Exam: Tenderness. absent: Distended - Extremities Exam Extremities exam: Positive for: pedal pulses present Additional comments: AV fistula in left arm, palpable thrill and bruit present - Neurological Exam Neurological exam: Alert, Oriented x3 - Skin Skin Exam: Pallor Results - Vital Signs Recent Vital Signs: Last Vital Signs Temp 98.4 F 06/21/17 21:25 Pulse 80 06/22/17 00:53 Resp 17 06/22/17 00:53 BP 118/54 L 06/22/17 00:53 Pulse Ox 100 06/22/17 00:53 - Labs Result Diagrams: 06/21/17 23:24 06/21/17 23:24 Labs: Laboratory Results - last 24 hr 06/21/17 06/21/17 23:24 23:24 WBC 7.4 D RBC 1.51 L Hgb 4.1 L* D Hct 13.1 L* MCV 86.8 MCH 27.2 MCHC 31.3 RDW 19.2 H Plt Count 132 MPV 9.6 Sodium 137 Potassium 5.7 H* D Chloride 100 Carbon Dioxide 21 Anion Gap 22 H BUN 196 H* Creatinine 9.6 H* Est GFR ( Amer) 5 Est GFR (Non-Af Amer) 4 Random Glucose 121 H Calcium 8.8 Total Bilirubin 1.1 AST 25 ALT 43 Alkaline Phosphatase 178 H D Lactate Dehydrogenase 352 Total Creatine Kinase 47 Troponin I 0.05 D Total Protein 4.4 L Albumin 2.4 L Globulin 2.0 Albumin/Globulin Ratio 1.2 Lipase 69 Assessment & Plan - Assessment and Plan (Free Text) Assessment: 56 year old female with past medical history of ESRD on hemodialysis (Monday/ Monday/Monday), hypertension, COPD, chronic anemia, GERD, C. diff, chronic pancreatitis, and small brain aneurysm, who presents to the Emergency department complaining of nausea, vomiting, and diarrhea with dark stools for the past 2 days. Plan: Neurological -patient AAOx3 -will continue to monitor status -Vitals Q4H Cardiovascular -EKG ordered and obtained, pending official read -Initial troponin negativex1 -BP: 128/48 -Will maintain MAP >65 -continue home lipitor Respiratory -Chest xray ordered, official read pending -will continue to monitor status -Saturation 100% on room air GI -possible upper GI bleed -heme occult positive -NPO -Protonix bolus given -Protonix drip -GI consulted, Dr. Rosado, will follow recs -Zofran Endocrine -Blood Sugar 121 -Maintain euglycemia -continue to monitor -Accuchecks Nephrology -Bun: 196 Cr: 9.6 -patient missed HD session today -K 5.7 -Patient given kayexalate -will follow up with AM labs -Rose Echavarria consulted, follow recs Heme -Hgb: 4.1 -Hct: 13.1 -Cross and type -transfuse 4 units of PRBC -continue to monitor -orthostatics ID -afebrile 98.4 -stool C Diff pending -continue to monitor Prophylaxis -Protonix -Sequential compression device Diet -NPO <Helen DA SILVA,Nik - Last Filed: 06/22/17 08:34> Meds - Medications Medications: Current Medications Atorvastatin Calcium (Lipitor) 80 mg PO DIN LEX Cinacalcet (Sensipar) 30 mg PO DIN LEX Pantoprazole Sodium (Protonix 40mg Ivpb) 40 mg in 100 mls @ 20 mls/hr IVPB .Q5H LEX Last Admin: 06/22/17 02:55 Dose: 20 mls/hr Ondansetron HCl (Zofran Inj) 4 mg IVP Q6H PRN PRN Reason: Nausea/Vomiting Last Admin: 06/22/17 01:29 Dose: 4 mg Sevelamer HCl (Renagel) 800 mg PO WM LEX Tramadol HCl (Ultram) 50 mg PO Q6 PRN PRN Reason: Pain, moderate (4-7) Last Admin: 06/22/17 02:11 Dose: 50 mg Results - Vital Signs Recent Vital Signs: Last Vital Signs Temp 98.7 F 06/22/17 06:08 Pulse 84 06/22/17 06:30 Resp 24 06/22/17 06:30 BP 143/53 L 06/22/17 06:08 Pulse Ox 100 06/22/17 06:30 - Labs Result Diagrams: 06/21/17 23:24 06/21/17 23:24 Labs: Laboratory Results - last 24 hr 06/22/17 02:30 PT 14.7 H INR 1.34 H APTT 28.3 Attending/Attestation - Attestation I have personally seen and examined this patient.: Yes I have fully participated in the care of the patient.: Yes I have reviewed all pertinent clinical information: Yes Notes (Text): -I agree with the above ICU consult note completed by the resident physician with the following additions and/or changes: -The patient is a 56 year old woman with a history of ESRD (M/W/F), chronic pancreatitis, recent history of C.Diff Colitis (in May 2017), GERD and COPD who is being admitted to the ICU for acute anemia due to melena. Also, because of her symptoms, she missed her scheduled HD session yesterday and therefore also presents markedly elevated BUN and Cr as well as hyperkalemia. Of note, her markedly elevated BUN is probably due more to her acute UGIB. Despite these acute issues, her vitals have remained within normal range. She will be monitored overnight in the ICU. We will transfuse 4 units of PRBC's slowly. One dose of Kayexalate has also been given. Also, Protonix drip will be initiated as PUD remains high on the differential diagnosis. She will be kept NPO and serial CBC's have been ordered. Both GI and nephrology have been consulted. Due to her recent history of C.Diff, she will be placed on isolation and repeat stool studies have been ordered.
[2017-06-22] MEDS: Pantoprazole 40mg/100ml IVPB 40 MG/100 ML BAG IVPB SCH ×5 (02:55→23:00)
[2017-06-22 02:59] LABS: INR 1.34 (0.93-1.08); PARTIAL THROMBOPLASTIN TIME 28.3 Seconds (25.1-36.5)
[2017-06-22 04:39] VITALS: BMI 22.7
[2017-06-22] MEDS ORDERED: Pantoprazole 40 mg EC Tab PO SCH (06:00)
--- NOTE | 2017-06-22 08:37 | RAD ---
HISTORY: sob COMPARISON: 05/12/2017 FINDINGS: LUNGS: The lungs are well inflated. There is mild pulmonary venous congestion. There is right lower lobe atelectasis. PLEURA: No significant pleural effusion identified, no pneumothorax apparent. CARDIOVASCULAR: There is severe cardiomegaly. OSSEOUS STRUCTURES: No significant abnormalities. VISUALIZED UPPER ABDOMEN: Normal. OTHER FINDINGS: None IMPRESSION: Severe cardiomegaly and mild pulmonary venous congestion.
--- NOTE | 2017-06-22 09:04 | CP.CCUPN ---
<Abdoulaye Prather - Last Filed: 06/22/17 11:25> CCU Subjective - Physician Review Subjective (Free Text): Patient seen and examined at bedside. Resting comfortably in bed. No acute overnight events. Patient states nausea and vomiting have improved relative to baseline. Continues to make dark stool.Offers no new complaints at this time. Denies fever, chills, chest pain, shortness of breath, abdominal pain, constipation, and urinary symptoms. 06/22/17 08:59 CCU Objective - Vital Signs / Intake & Output Vital Signs (Last 4 hours): Vital Signs Temp Pulse Resp BP Pulse Ox 06/22/17 06:30 84 24 100 06/22/17 06:20 86 22 97 06/22/17 06:10 90 30 H 100 06/22/17 06:08 98.7 F 86 16 143/53 L 06/22/17 06:00 86 24 143/53 L 93 L 06/22/17 05:58 85 33 H 118/46 L 100 06/22/17 05:50 85 26 H 100 06/22/17 05:40 87 17 100 06/22/17 05:30 83 100 06/22/17 05:20 83 100 06/22/17 05:10 86 20 99 06/22/17 05:00 82 32 H 100 Intake and Output (Last 8hrs): Intake & Output 06/21/17 06/22/17 06/22/17 22:59 06:59 14:59 Intake Total 900 Output Total 100 Balance 800 Weight 136 lb 9.6 oz Intake: Oral 0 Blood Product 850 Red Blood Cells Cpd As1 325 Lr Unit [id number] Other 50 Red Blood Cells Cpd As1 50 Lr Unit [id number] Output: Urine 0 Urine, Voided 0 Stool 100 Other: # Bowel Movements 1 - Physical Exam Head: Positive for: Atraumatic, Normocephalic Extroacular Muscles: Positive for: EOMI Conjunctiva: Positive for: Other (pale) Ears: Negative for: Erythema, TM Bulging, Fluid Mouth: Positive for: Moist Mucous Membranes Pharnyx: Negative for: ERYTHEMA, EXUDATE, TONSILS ENLARGED, Peritonsilar Swelling, Uvular Deviation, Muffled/Hoarse Voice, Strider, Soft Palate/Uvular Edema Nose (External): Positive for: Atraumatic Neck: Positive for: Normal Range of Motion Respiratory/Chest: Positive for: Clear to Auscultation, Good Air Exchange. Negative for: Respiratory Distress, Accessory Muscle Use Cardiovascular: Positive for: Regular Rate and Rhythm, Normal S1, S2. Negative for: Murmurs Abdomen: Positive for: Normal Bowel Sounds. Negative for: Tenderness, Distention, Peritoneal Signs Back: Positive for: Normal Inspection Upper Extremity: Negative for: Cyanosis, Edema Lower Extremity: Negative for: Edema Neurological: Positive for: GCS=15, CN II-XII Intact, Speech Normal, Motor Func Grossly Intact, Normal Sensory Function Skin: Positive for: Warm, Dry. Negative for: Rashes Psychiatric: Positive for: Alert, Oriented x 3 - Medications Active Medications: Active Medications Generic Name Dose Route Start Last Admin Trade Name Freq PRN Reason Stop Dose Admin Atorvastatin Calcium 80 mg 06/22/17 17:00 Lipitor PO DIN LEX Cinacalcet 30 mg 06/22/17 17:00 Sensipar PO DIN LEX Pantoprazole Sodium 40 mg in 100 mls @ 20 mls/hr 06/22/17 01:15 06/22/17 08: 34 Protonix 40mg Ivpb IVPB 20 mls/hr .Q5H LEX Administration Ondansetron HCl 4 mg 06/22/17 01:14 06/22/17 01:29 Zofran Inj IVP 4 mg Q6H PRN Administration Nausea/Vomiting Sevelamer HCl 800 mg 06/22/17 08:00 06/22/17 08:38 Renagel PO 800 mg WM LEX Administration Tramadol HCl 50 mg 06/22/17 00:39 06/22/17 08:32 Ultram PO 50 mg Q6 PRN Administration Pain, moderate (4-7) - Patient Studies Lab Studies: Lab Studies 06/22/17 Range/Units 02:30 PT 14.7 H (9.4-12.5) SECONDS INR 1.34 H (0.93-1.08) APTT 28.3 (25.1-36.5) Seconds Laboratory Results - last 24 hr 06/22/17 02:30 PT 14.7 H INR 1.34 H APTT 28.3 Review of Systems - Review of Systems Review of Systems: 12-point review of systems negative except as indicated in the HPI Assessment/Plan - Assessment and Plan (Free Text) Assessment: Patient is a 56 year old female with past medical history of ESRD on hemodialysis (Monday/Monday/Monday), hypertension, COPD, chronic anemia, GERD , C. diff, chronic pancreatitis, and small brain aneurysm, who was admitted for evaluation and treatment of nausea, vomiting, and diarrhea with dark stool. Plan: Neurological - Patient is awake, alert, responds to verbal stimuli, answers questions appropriately, follows commands, and moves extremities past midline - will continue to monitor status - Vitals Q4H Cardiovascular - Initial troponin negative x 1 - HR trended, reviewed, and appreciated, will continue to monitor closely - BPs trended, reviewed, and appreciated, will continue to monitor closely - Will maintain MAP > 65 - Continue home lipitor Pulm: - Chest xray reviewed and appreciated- Severe cardiomegaly and mild pulmonary venous congestion - Will continue to monitor status - keep Saturation greater than 92% GI: GI bleed - heme occult positive - NPO - Continue on Protonix drip - GI consulted, Dr. Rosado- appreciate recommendations- CT of abdomen and nuclear scan ordered and pending - Zofran prn nausea Endocrine: - Maintain euglycemia - Accuchecks Renal/Electrolytes ESRD on HD - creatinine and BUN trended, reviewed, and appreciated- HD today Hyperkalemia - HD today -Nephrology consulted- appreciate recommendations Heme Anemia - Hgbs trended, reviewed, and appreciated, will continue to monitor closely- 2 units of pRBCs transfused, 2 units will be transfused during HD - continue to monitor via CBC DVT Ppx - SCDs ID -stool C Diff pending -continue to monitor Patient seen, case discussed with, and plan approved by attending physician, Dr. Mcelroy. <Kosta Mcelroy - Last Filed: 06/22/17 12:26> CCU Objective - Vital Signs / Intake & Output Intake and Output (Last 8hrs): Intake & Output 06/21/17 06/22/17 06/22/17 22:59 06:59 14:59 Intake Total 900 Output Total 100 Balance 800 Weight 136 lb 9.6 oz Intake: Oral 0 Blood Product 850 Red Blood Cells Cpd As1 325 Lr Unit [id number] Other 50 Red Blood Cells Cpd As1 50 Lr Unit [id number] Output: Urine 0 Urine, Voided 0 Stool 100 Other: # Bowel Movements 1 - Medications Active Medications: Active Medications Generic Name Dose Route Start Last Admin Trade Name Freq PRN Reason Stop Dose Admin Atorvastatin Calcium 80 mg 06/22/17 17:00 Lipitor PO DIN LEX Cinacalcet 30 mg 06/22/17 17:00 Sensipar PO DIN LEX Pantoprazole Sodium 40 mg in 100 mls @ 20 mls/hr 06/22/17 01:15 06/22/17 08: 34 Protonix 40mg Ivpb IVPB 20 mls/hr .Q5H LEX Administration Ondansetron HCl 4 mg 06/22/17 01:14 06/22/17 01:29 Zofran Inj IVP 4 mg Q6H PRN Administration Nausea/Vomiting Sevelamer HCl 800 mg 06/22/17 08:00 06/22/17 08:38 Renagel PO 800 mg WM LEX Administration Tramadol HCl 50 mg 06/22/17 00:39 06/22/17 08:32 Ultram PO 50 mg Q6 PRN Administration Pain, moderate (4-7) - Patient Studies Lab Studies: Lab Studies 06/22/17 06/22/17 06/22/17 Range/Units 11:40 11:40 02:30 WBC 6.7 (4.5-11.0) 10^3/ul RBC 1.65 L (3.5-6.1) 10^6/uL Hgb 4.8 L* (12.0-16.0) g/dL Hct 14.2 L* (36.0-48.0) % MCV 86.1 (80.0-105.0) fl MCH 29.1 (25.0-35.0) pg MCHC 33.8 (31.0-37.0) g/dl RDW 15.9 H (11.5-14.5) % Plt Count 99 L (120.0-450.0) 10^3/uL MPV 8.8 (7.0-11.0) fl Gran % 76.5 H (50.0-68.0) % Lymph % (Auto) 15.9 L (22.0-35.0) % [place] % (Auto) 5.4 (1.0-6.0) % Eos % (Auto) 1.5 (1.5-5.0) % Baso % (Auto) 0.7 (0.0-3.0) % Gran # 5.14 (1.4-6.5) Lymph # 1.1 L (1.2-3.4) [place] # 0.4 (0.1-0.6) Eos # 0.1 (0.0-0.7) Baso # 0.05 (0.0-2.0) K/mm3 PT 14.7 H (9.4-12.5) SECONDS INR 1.34 H (0.93-1.08) APTT 28.3 (25.1-36.5) Seconds Creatinine 9.1 H* (0.7-1.2) mg/dl Est GFR ( Amer) 5 Est GFR (Non-Af Amer) 4 Laboratory Results - last 24 hr 06/22/17 06/22/17 06/22/17 02:30 11:40 11:40 WBC 6.7 RBC 1.65 L Hgb 4.8 L* Hct 14.2 L* MCV 86.1 MCH 29.1 MCHC 33.8 RDW 15.9 H Plt Count 99 L MPV 8.8 Gran % 76.5 H Lymph % (Auto) 15.9 L [place] % (Auto) 5.4 Eos % (Auto) 1.5 Baso % (Auto) 0.7 Gran # 5.14 Lymph # 1.1 L [place] # 0.4 Eos # 0.1 Baso # 0.05 PT 14.7 H INR 1.34 H APTT 28.3 Creatinine 9.1 H* Est GFR ( Amer) 5 Est GFR (Non-Af Amer) 4 Assessment/Plan - Assessment and Plan (Free Text) Plan: Patient seen and examined, agree with residents note with following additions/ exceptions: Pt is 56 year old female with past medical history of ESRD on hemodialysis ( Monday/Monday/Monday), hypertension, COPD, chronic anemia, GERD, C. diff, chronic pancreatitis, and small brain aneurysm, admitted for anemia, GIB. Currently afebrile, HD stable, awake, alert, NAD. Currently undergoing HD as per renal. Pt received 2u PRBC, to receive 2 more units of PRBC. Plts 99, INR 1.34. Repeat CBC pending. GI on the case. CT A/P, and NM bleeding scan to be done. NPO, PPI drip, tranfuse 2u more pRBC, monitor HH, follow up GI. Critical care time 45 minutes
[2017-06-22 11:45] LABS: BASO # 0.05 K/mm3 (0.0-2.0); BASO % 0.7 % (0.0-3.0); EOS # 0.1 (0.0-0.7); EOS % 1.5 % (1.5-5.0); GRAN # 5.14 (1.4-6.5); GRAN % 76.5 % (50.0-68.0); LYMPH # 1.1 (1.2-3.4); LYMPH % 15.9 % (22.0-35.0); MEAN CELL VOLUME 86.1 fl (80.0-105.0); MEAN CORPUSCULAR HEMOGLOBIN 29.1 pg (25.0-35.0); MEAN CORPUSCULAR HGB CONC 33.8 g/dl (31.0-37.0); MEAN PLATELET VOLUME 8.8 fl (7.0-11.0); MONO # 0.4 (0.1-0.6); MONO % 5.4 % (1.0-6.0); RED CELL DISTRIBUTION WIDTH 15.9 % (11.5-14.5); WHITE BLOOD COUNT 6.7 10^3/ul (4.5-11.0)
[2017-06-22] MEDS ORDERED: HYDROmorphone 0.5 mg/0.5 ml ISec IVP STA (11:48)
[2017-06-22 11:49] LABS: HEMATOCRIT 14.2 % (36.0-48.0)
[2017-06-22 12:21] LABS: ALB/GLOB RATIO 1.1 (1.1-1.8); BILIRUBIN,TOTAL 1.3 mg/dL (0.2-1.3); CALCIUM 7.8 mg/dL (8.4-10.5); MAGNESIUM 2.4 mg/dL (1.7-2.2); PHOSPHOROUS 3.4 mg/dL (2.5-4.5); POTASSIUM 5.4 mmol/L (3.6-5.0); TOTAL PROTEIN 3.5 g/dL (5.8-8.3)
--- NOTE | 2017-06-22 15:46 | CT ---
PROCEDURE: CT Abdomen and Pelvis without intravenous contrast HISTORY: gi bleed COMPARISON: None. TECHNIQUE: Without contrast. Contrast Dose: Radiation dose: Total exam DLP = 540 mGy-cm. This CT exam was performed using one or more of the following dose reduction techniques: Automated exposure control, adjustment of the mA and/or kV according to patient size, and/or use of iterative reconstruction technique. FINDINGS: LOWER THORAX: Moderate cardiomegaly LIVER: Unremarkable. No gross lesion or ductal dilatation. GALLBLADDER AND BILE DUCTS: Gallbladder removed PANCREAS: Unremarkable. No gross lesion or ductal dilatation. SPLEEN: Unremarkable. ADRENALS: Unremarkable. No mass. KIDNEYS AND URETERS: The kidneys are severely atrophic VASCULATURE: Unremarkable. No aortic aneurysm. BOWEL: Unremarkable. No obstruction. No gross mural thickening. The study is limited without oral or IV contrast APPENDIX: Unremarkable. Normal appendix. PERITONEUM: Unremarkable. No free fluid. No free air. LYMPH NODES: Unremarkable. No enlarged lymph nodes. BLADDER: Unremarkable. REPRODUCTIVE: Unremarkable. BONES: Severe degenerative changes are seen in both hips with flattening of the femoral heads. OTHER FINDINGS: None. IMPRESSION: No acute intra-abdominal findings.
--- NOTE | 2017-06-22 17:01 | CP.PCM.CON ---
<Jennifer Barron - Last Filed: 06/22/17 17:00> History of Present Illness - History of Present Illness History of Present Illness: Seen and examined at bedside earlier this morning, chart reviewed. Request for GI consult is for anemia/GI bleed. HPI: This is a 56-year-old female known to our practice with a past medical history of ESRD on hemodialysis, hypertension, chronic anemia, GERD, chronic pancreatitis, C. difficile, Chronic Diarrhea, Elevated Chromogranin level with negative Octreotide scan had appointment to see GI specialist in [place], came to the emergency room with complaints of nausea, vomiting, and diarrhea. She endorses that has been dark for the past 2 days, no bright red blood and her vomitus had blood. She has been feeling wead with shortness of breath and did not have dailysis yesterday. No chest pain, fever chills. On admission she was found to have hgb of 4.1, she received 2 units of PRBC overnight and is due to receive 2 more units of PRBC with dialysis today. Patient c/o acid reflux with epigastrium discomfort. Denies NSAID use. Patient last EGD/Colon was done 2016 for Anemia and chronic diarrhea, found to have gastric intestinal metaplasia, normal duodenum, and chronic gastritis: colon polyps and internal hemorrhoids, BX of colon negative for microscopic colitis, hgb prior to this is noted to he12's. PMH: ESRD, on dialysis, hypertension, GERD, chronic pancreatitis, pericardial effusions/p pericardial window,chronic anemia, bronchitis, brain aneurysm, h/o colon polyps, h/o c diff PSH: pericardial window, choleycytectomy, x2, cardiac cath 2013, T&A, had EGD/EUS with Dr. Erazo in [place] FHX: noncontributory at this time Social Hx: (+) smoker, denies ETOH, no drugs Allergies: multiple allergies: aspirin, ciprofloxacin, citrus, heparin, enalapril, latex, codeine, lovenox,influenza vaccine MEDs: reviewed as per OCT ROS: Systems reviewed with positive findings, see HPI Past Patient History - Infectious Disease Hx of Infectious Diseases: None, C.diff - Tetanus Immunizations Tetanus Immunization: Up to Date - Past Medical History & Family History Past Medical History?: Yes - Past Social History Smoking Status: Heavy Smoker > 10 Cigarettes Daily - CARDIAC Hx Cardiac Disorders: Yes Hx Congestive Heart Failure: Yes Hx Hypertension: Yes - PULMONARY Hx Respiratory Disorders: Yes Hx Chronic Obstructive Pulmonary Disease (COPD): Yes - NEUROLOGICAL Hx Neurological Disorder: No - HEENT Hx HEENT Problems: Yes Hx Blind: Yes (parial, left eye) - RENAL Hx Chronic Kidney Disease: Yes Date of Last Dialysis Treatment: 05/05/17 Hx Renal Failure: Yes (Hemodialysis (M,W,F)) - ENDOCRINE/METABOLIC Hx Endocrine Disorders: Yes (parathyroid) - HEMATOLOGICAL/ONCOLOGICAL Hx Blood Disorders: Yes Hx Anemia: Yes - INTEGUMENTARY Hx Dermatological Problems: No - MUSCULOSKELETAL/RHEUMATOLOGICAL Hx Falls: No - GASTROINTESTINAL Hx Gastrointestinal Disorders: Yes Hx Gastroesophageal Reflux: Yes - GENITOURINARY/GYNECOLOGICAL Hx Genitourinary Disorders: No - PSYCHIATRIC Hx Psychophysiologic Disorder: No Hx Substance Use: No - SURGICAL HISTORY Hx Cholecystectomy: Yes Hx Orthopedic Surgery: Yes (bilateral hips) Other/Comment: left arm fistula placemnt, c-sectionx2, tonsilectomy - ANESTHESIA Hx Anesthesia: Yes Hx Anesthesia Reactions: No Hx Malignant Hyperthermia: No Meds Allergies/Adverse Reactions: Allergies Allergy/AdvReac Type Severity Reaction Status Date / Time aspirin Allergy Severe ANAPHYLAXIS Verified 05/11/17 17:17 ciprofloxacin Allergy Severe ANAPHYLAXIS Verified 05/11/17 17:17 [place] And Derivatives Allergy Severe ANAPHYLAXIS Verified 05/11/17 17:17 enalapril Allergy Severe HIVES Verified 05/11/17 17:17 heparin Allergy Severe ANAPHYLAXIS Verified 05/11/17 17:17 latex Allergy Severe ANAPHYLAXIS Verified 05/11/17 17:17 Penicillins Allergy Severe ANAPHYLAXIS Verified 05/11/17 17:17 Sulfa (Sulfonamide Allergy Severe ANAPHYLAXIS Verified 05/11/17 17:17 Antibiotics) levothyroxine sodium Allergy Intermediate RASH Verified 05/11/17 17:17 [From Levoxyl] acetaminophen Allergy Mild RASH Verified 05/11/17 17:17 codeine Allergy Mild RASH Verified 05/11/17 17:17 enoxaparin Allergy Mild RASH Verified 05/11/17 17:17 iodine Allergy Mild RASH Verified 05/11/17 17:17 influenza virus vaccine, Allergy hives Verified 05/11/17 17:17 specific - Medications Medications: Current Medications Atorvastatin Calcium (Lipitor) 80 mg PO DIN LEX Cinacalcet (Sensipar) 30 mg PO DIN LEX Pantoprazole Sodium (Protonix 40mg Ivpb) 40 mg in 100 mls @ 20 mls/hr IVPB .Q5H LEX Last Admin: 06/22/17 14:13 Dose: 20 mls/hr Ondansetron HCl (Zofran Inj) 4 mg IVP Q6H PRN PRN Reason: Nausea/Vomiting Last Admin: 06/22/17 01:29 Dose: 4 mg Sevelamer HCl (Renagel) 800 mg PO WM LEX Last Admin: 06/22/17 08:38 Dose: 800 mg Tramadol HCl (Ultram) 50 mg PO Q6 PRN PRN Reason: Pain, moderate (4-7) Last Admin: 06/22/17 08:32 Dose: 50 mg Physical Exam - Constitutional Appears: No Acute Distress - Eye Exam Eye Exam: Normal appearance. absent: Scleral icterus - ENT Exam ENT Exam: Mucous Membranes Dry - Neck Exam Neck exam: Positive for: Normal Inspection - Respiratory Exam Respiratory Exam: Decreased Breath Sounds, NORMAL BREATHING PATTERN. absent: Respiratory Distress - Cardiovascular Exam Cardiovascular Exam: +S1, +S2 - GI/Abdominal Exam GI & Abdominal Exam: Normal Bowel Sounds, Soft, Tenderness (epigastric). absent : Guarding, Organomegaly, Rebound - Extremities Exam Extremities exam: Positive for: pedal pulses present. Negative for: calf tenderness - Neurological Exam Neurological exam: Alert, Oriented x3 - Skin Skin Exam: Dry, Pallor, Warm Results - Vital Signs Recent Vital Signs: Last Vital Signs Temp 97.5 F L 06/22/17 14:09 Pulse 88 06/22/17 14:09 Resp 14 06/22/17 14:09 BP 120/67 06/22/17 14:09 Pulse Ox 100 06/22/17 06:30 - Labs Result Diagrams: 06/22/17 11:40 06/22/17 11:40 Labs: Laboratory Results - last 24 hr 06/22/17 06/22/17 06/22/17 02:30 11:40 11:40 WBC 6.7 RBC 1.65 L Hgb 4.8 L* Hct 14.2 L* MCV 86.1 MCH 29.1 MCHC 33.8 RDW 15.9 H Plt Count 99 L MPV 8.8 Gran % 76.5 H Lymph % (Auto) 15.9 L Finney % (Auto) 5.4 Eos % (Auto) 1.5 Baso % (Auto) 0.7 Gran # 5.14 Lymph # 1.1 L Finney # 0.4 Eos # 0.1 Baso # 0.05 PT 14.7 H INR 1.34 H APTT 28.3 Sodium 137 Potassium 5.4 H Chloride 103 Carbon Dioxide 20 L Anion Gap 19 BUN 193 H* Creatinine 9.1 H* Est GFR ( Amer) 5 Est GFR (Non-Af Amer) 4 Random Glucose 111 H Calcium 7.8 L Phosphorus 3.4 Magnesium 2.4 H Total Bilirubin 1.3 AST 20 ALT 29 Alkaline Phosphatase 134 H D Total Protein 3.5 L Albumin 1.8 L Globulin 1.7 Albumin/Globulin Ratio 1.1 Assessment & Plan - Assessment and Plan (Free Text) Assessment: ASSESSMENT: Sever Anemia secondary to GI bleeding, r/o PUD, angiodysplasia, malignancy ESRD on Hemodailysis H/O colon polyps COPD H/O Chronic Pancreatitis H/O GERD HTN PLAN: continue Protonix drip 2units of PRBC w/ dialysis ct scan A&P no contrast, report reviewed, no acute finding, see [place] for full details if continue further active bleeding consider Nuclear Bleeding scan pt will need EGD , will scope when optimal, monitor labs and patient status closely, discussed w/ ICU team monitor H/H and for overt GI bleeding SCD for DVT prophylaxsis Thank you for this consult and for allowing us to participate in your patient care, further recommendation based upon clinical course. Seen and discussed w/ Dr. Rsoado. <Jesus Manuel Rosado V - Last Filed: 06/22/17 22:52> Meds - Medications Medications: Current Medications Atorvastatin Calcium (Lipitor) 80 mg PO DIN [facility] Last Admin: 06/22/17 17:11 Dose: 80 mg Cinacalcet (Sensipar) 30 mg PO DIN [facility] Last Admin: 06/22/17 17:11 Dose: 30 mg Pantoprazole Sodium (Protonix 40mg Ivpb) 40 mg in 100 mls @ 10 mls/hr IVPB .Q10H [facility] Ondansetron HCl (Zofran Inj) 4 mg IVP Q6H PRN PRN Reason: Nausea/Vomiting Last Admin: 06/22/17 01:29 Dose: 4 mg Sevelamer HCl (Renagel) [address] [facility] Last Admin: 06/22/17 17:13 Dose: 800 mg Tramadol HCl (Ultram) 50 mg PO Q6 PRN PRN Reason: Pain, moderate (4-7) Last Admin: 06/22/17 17:11 Dose: 50 mg Results - Vital Signs Recent Vital Signs: Last Vital Signs Temp 98.3 F 06/22/17 21:53 Pulse 88 06/22/17 21:53 Resp 16 06/22/17 21:53 BP 124/56 L 06/22/17 21:53 Pulse Ox 100 06/22/17 06:30 - Labs Result Diagrams: 06/22/17 20:20 06/22/17 11:40 Labs: Laboratory Results - last 24 hr 06/22/17 06/22/17 06/22/17 02:30 11:40 11:40 WBC 6.7 RBC 1.65 L Hgb 4.8 L* Hct 14.2 L* MCV 86.1 MCH 29.1 MCHC 33.8 RDW 15.9 H Plt Count 99 L MPV 8.8 Gran % 76.5 H Lymph % (Auto) 15.9 L Finney % (Auto) 5.4 Eos % (Auto) 1.5 Baso % (Auto) 0.7 Gran # 5.14 Lymph # 1.1 L Finney # 0.4 Eos # 0.1 Baso # 0.05 PT 14.7 H INR 1.34 H APTT 28.3 Sodium 137 Potassium 5.4 H Chloride 103 Carbon Dioxide 20 L Anion Gap 19 BUN 193 H* Creatinine 9.1 H* Est GFR ( Amer) 5 Est GFR (Non-Af Amer) 4 Random Glucose 111 H Calcium 7.8 L Phosphorus 3.4 Magnesium 2.4 H Total Bilirubin 1.3 AST 20 ALT 29 Alkaline Phosphatase 134 H D Total Protein 3.5 L Albumin 1.8 L Globulin 1.7 Albumin/Globulin Ratio 1.1 06/22/17 06/22/17 17:16 20:20 WBC 14.1 H D 11.4 H RBC 2.46 L 2.29 L Hgb 7.3 L D 6.9 L* Hct 21.1 L 19.8 L* MCV 85.8 86.5 MCH 29.7 30.1 MCHC 34.6 34.8 RDW 14.6 H 15.0 H Plt Count 84 L 82 L MPV 9.2 9.1 Gran % 83.3 H Lymph % (Auto) 8.2 L Finney % (Auto) 7.6 H Eos % (Auto) 0.7 L Baso % (Auto) 0.2 Gran # 11.71 H Lymph # 1.2 Finney # 1.1 H Eos # 0.1 Baso # 0.03 PT INR APTT Sodium Potassium Chloride Carbon Dioxide Anion Gap BUN Creatinine Est GFR ( Amer) Est GFR (Non-Af Amer) Random Glucose Calcium Phosphorus Magnesium Total Bilirubin AST ALT Alkaline Phosphatase Total Protein Albumin Globulin Albumin/Globulin Ratio Attending/Attestation - Attestation I have personally seen and examined this patient.: Yes I have fully participated in the care of the patient.: Yes I have reviewed all pertinent clinical information: Yes Notes (Text): this patient was seen and evaluated in the Morning. This is an addendum to the GI consultation report dictated by Jennifer WORTHINGTON. This 56-year-old patient with end-stage renal disease on hemodialysis admitted with 2 days history of melena. She has significant drop in hemoglobin. Hemoglobin dropped from 12-4.7. Patient did receive 2 units of packed RBC at the time of evaluation in the morning. No significant rise in hemoglobin after 2 units. On examination abdomen soft mild tenderness present patient was lethargic Plan to give at that time 2 more units of packed RBC Recommended to have a hemoglobin hematocrit checked to 4-6 hourly. Monitor closely any obvious further melena or bleeding bright red blood. I did discuss with the resident and also with the process control programmer Patient GI workup done here earlier this year in the past which were reviewed and recorded in the consult report as per Jennifer Barron APN. The plan at that time initially was to monitor hemoglobin and hematocrit closely and transfuse as needed Subsequently patient had CT scan of the abdomen and pelvis without contrast and it was reviewed Patient had a bleeding scan Later and it showed no active ongoing bleeding Plan Monitor hn/Hct reduce the dose of Protonix drip to 4 mg/h in view of the end-stage degenerative disc disease status Would cut the dose to once daily in a.m. if hemoglobin remains stable 2. Would consider upper endoscopy after optimization 3. The bleeding scan findings noticed 4. Will continue to closely follow-up her care and suggest further management based on the clinical course . 06/22/17 22:37
[2017-06-22 17:31] LABS: BASO # 0.03 K/mm3 (0.0-2.0); BASO % 0.2 % (0.0-3.0); EOS # 0.1 (0.0-0.7); EOS % 0.7 % (1.5-5.0); GRAN # 11.71 (1.4-6.5); GRAN % 83.3 % (50.0-68.0); LYMPH # 1.2 (1.2-3.4); LYMPH % 8.2 % (22.0-35.0); MEAN CELL VOLUME 85.8 fl (80.0-105.0); MEAN CORPUSCULAR HEMOGLOBIN 29.7 pg (25.0-35.0); MEAN CORPUSCULAR HGB CONC 34.6 g/dl (31.0-37.0); MEAN PLATELET VOLUME 9.2 fl (7.0-11.0); MONO # 1.1 (0.1-0.6); MONO % 7.6 % (1.0-6.0); RED CELL DISTRIBUTION WIDTH 14.6 % (11.5-14.5); WHITE BLOOD COUNT 14.1 10^3/ul (4.5-11.0)
--- NOTE | 2017-06-22 17:45 | NM ---
PROCEDURE: Nuclear medicine gastrointestinal bleeding scan. HISTORY: GI bleed suspected. Information provided by the technologist indicates the patient is not actively bleeding at present time. COMPARISON: June 22, 2017. CT abdomen and pelvis TECHNIQUE: 4 cc of patient blood was withdrawn and mixed with 21 mCi of technetium ultra tagged. Images of the abdomen and pelvis were obtained in the anterior and posterior projection at 1 min intervals over a period of 45 min. FINDINGS: No abnormal extravasation of tracer was observed throughout the exam to indicate active bleeding within or outside the gastrointestinal tract. There was focal uptake in the left upper quadrant which remained in a static position. This most likely represents gastritis. Physiologic activity was seen in the heart, liver, spleen and blood vessels. IMPRESSION: Increased uptake in the left upper quadrant which is static likely resides within the stomach. There is no evidence of active gastrointestinal hemorrhage within small bowel or colon.
[2017-06-22 17:50] LABS: HEMATOCRIT 21.1 % (36.0-48.0)
[2017-06-22 20:23] LABS: MEAN CELL VOLUME 86.5 fl (80.0-105.0); MEAN CORPUSCULAR HEMOGLOBIN 30.1 pg (25.0-35.0); MEAN CORPUSCULAR HGB CONC 34.8 g/dl (31.0-37.0); MEAN PLATELET VOLUME 9.1 fl (7.0-11.0); WHITE BLOOD COUNT 11.4 10^3/ul (4.5-11.0)
[2017-06-22 20:31] LABS: HEMATOCRIT 19.8 % (36.0-48.0)
--- NOTE | 2017-06-22 22:10 | CARD ---
APPROVED REPORT EKG Measurement Heart [id number] <Conclusion> Normal sinus rhythm Left ventricular hypertrophy with repolarization abnormality Abnormal ECG
--- NOTE | 2017-06-22 23:34 | CON ---
DATE: 06/22/2017 REASON FOR CONSULTATION: Hyperkalemia, severe anemia, GI bleed, low blood pressure, hemodynamic instability. HISTORY OF PRESENT ILLNESS: A 56-year-old lady known to me from outpatient followup. The patient did not show up for 2 of her dialysis treatment. She presented to the emergency room late last night with complaints of abdominal pain, cramping, melanotic stool x2 at home. She reports that she has been having melanotic stools since Monday. In the emergency room, she was found to have a hemoglobin of 4.1. She was found to be hemodynamically unstable. She was found to be hypotensive. Her blood pressure was as low as 90/50. The patient currently seen in the ICU. She appears very pale. She appears ashen. Puffiness of the face. She is groggy. She received 2 units of blood overnight. Currently, she denies any abdominal pain. She does appear to have mild shortness of breath. She denies any chest tightness. She denies any fevers, chills. PAST MEDICAL AND SURGICAL HISTORY: Hypertension, history of pericardial effusion, history of pericardial window, C. diff colitis, chronic abdominal pain, GI bleed, ESRD, severe anemia, osteoarthritis, secondary hyperparathyroidism. FAMILY HISTORY: Hypertension. SOCIAL HISTORY: Current smoker, no alcohol use, no IV drug abuse. ALLERGIES: ASPIRIN, CIPROFLOXACIN, ENALAPRIL, HEPARIN, LATEX, PENICILLIN, SULFA, TYLENOL, CODEINE, LOVENOX AND IODINE. MEDICATIONS AT HOME: Not available at this time. REVIEW OF SYSTEMS: All systems are reviewed, pertinent positives as mentioned in history of presenting illness, rest unremarkable. PHYSICAL EXAMINATION GENERAL: A young woman, lying in bed in the ICU, appears very pale and ashen. NECK: Supple, no JVD. HEENT: Normocephalic, atraumatic, positive pallor, no icterus. LUNGS. Bilateral equal air entry, decreased air entry at bases, no rhonchi. CARDIAC: S1, S2, regular rate and rhythm, no murmur, no rub. ABDOMEN: Distended, soft, nontender at present, bowel sounds present. EXTREMITIES: 2+ pitting edema of the lower extremities. INTAKE AND OUTPUT: 900/100. LABORATORY DATA: WBC 6.7, hemoglobin 4.8, hematocrit 14, platelets 99. Sodium 137, potassium 5.4, chloride 103, CO2 of 20, BUN 193, creatinine 9.1, glucose 111, calcium 7.8, phosphorus 3.4, magnesium 2.4, albumin 1.8. C. diff toxin is negative. CURRENT MEDICATIONS: Lipitor 80, Protonix 40 IV daily, Renagel 800 with meals, Sensipar 30, Ultram, Zofran, Lopressor 25 b.i.d. ASSESSMENT: 1. Severe life-threatening anemia. 2. Gastrointestinal bleed/melena. 3. Hypotension, circulatory shock. 4. Hyperkalemia. 5. End-stage renal disease, urgent need for dialysis. 6. History of hypertension. 7. History of Clostridium difficile colitis. PLAN 1. Urgent dialysis, transfused 2 units of blood during dialysis. 2. Ultrafiltrate about 2 kg as tolerated. 3. GI evaluation. 4. Monitor in the ICU. 5. Case discussed with the patient at bedside. 6. Case discussed with dialysis nurse at bedside. 7. Case discussed with ICU residents. More than 35 minutes was spent in the care of this critically ill patient. Mansi Rose MD
[2017-06-23 00:21] LABS: BASO # 0.04 K/mm3 (0.0-2.0); BASO % 0.4 % (0.0-3.0); EOS # 0.2 (0.0-0.7); EOS % 1.6 % (1.5-5.0); GRAN # 7.75 (1.4-6.5); GRAN % 76.6 % (50.0-68.0); LYMPH # 1.3 (1.2-3.4); LYMPH % 13.2 % (22.0-35.0); MEAN CELL VOLUME 85.9 fl (80.0-105.0); MEAN CORPUSCULAR HEMOGLOBIN 29.7 pg (25.0-35.0); MEAN CORPUSCULAR HGB CONC 34.5 g/dl (31.0-37.0); MEAN PLATELET VOLUME 9.3 fl (7.0-11.0); MONO # 0.8 (0.1-0.6); MONO % 8.2 % (1.0-6.0); RED CELL DISTRIBUTION WIDTH 15.4 % (11.5-14.5); WHITE BLOOD COUNT 10.1 10^3/ul (4.5-11.0)
[2017-06-23 06:03] LABS: BASO # 0.03 K/mm3 (0.0-2.0); BASO % 0.3 % (0.0-3.0); EOS # 0.2 (0.0-0.7); GRAN # 7.7 (1.4-6.5); GRAN % 76.5 % (50.0-68.0); LYMPH # 1.4 (1.2-3.4); LYMPH % 13.7 % (22.0-35.0); MEAN CELL VOLUME 86.8 fl (80.0-105.0); MEAN CORPUSCULAR HEMOGLOBIN 29.2 pg (25.0-35.0); MEAN CORPUSCULAR HGB CONC 33.6 g/dl (31.0-37.0); MONO # 0.8 (0.1-0.6); MONO % 7.5 % (1.0-6.0); RED CELL DISTRIBUTION WIDTH 15.7 % (11.5-14.5); WHITE BLOOD COUNT 10.1 10^3/ul (4.5-11.0)
[2017-06-23 06:08] LABS: HEMATOCRIT 21.7 % (36.0-48.0)
[2017-06-23 06:48] LABS: ALB/GLOB RATIO 1.1 (1.1-1.8); BILIRUBIN,TOTAL 1.3 mg/dL (0.2-1.3); CALCIUM 7.8 mg/dL (8.4-10.5); MAGNESIUM 1.9 mg/dL (1.7-2.2); PHOSPHOROUS 3.5 mg/dL (2.5-4.5); POTASSIUM 4.4 mmol/L (3.6-5.0); TOTAL PROTEIN 3.6 g/dL (5.8-8.3)
--- NOTE | 2017-06-23 08:12 | HP ---
HISTORY OF PRESENT ILLNESS: The patient is a 56-year-old, who was brought to the Emergency Room because of rectal bleeding. She was found to be lethargic. She is complaining of having nausea and vomiting. By the time I saw the patient, she was given Dilaudid. She was very sleepy. According to the nurse, she was having the symptoms of tarry stools for the last 3 to 4 days. She is complaining of shortness of breath. No history of fever or chills. No history of chest pain. Does complain of shortness of breath. PAST MEDICAL HISTORY: Significant for: 1. End-stage renal disease, on hemodialysis. 2. COPD. 3. Hypertension. 4. Chronic anemia. 5. Esophageal reflux disease. 6. History of C. diff, was treated few times. 7. Brain aneurysm that is being monitored at [facility] in [place]. ALLERGIES: THE PATIENT HAS A LONG LIST OF ALLERGIES THAT INCLUDE ASPIRIN, CIPRO, [place] DERIVATIVES, ENALAPRIL, HEPARIN, LATEX,PENICILLIN, SULFA, LEVOTHYROXINE, ACETAMINOPHEN, CODEINE, LOVENOX, IODINE AND INFLUENZA VIRUS. MEDICATION AT HOME: The patient is on Lipitor 80 mg daily, Protonix 40 mg daily, Renagel 800 three times a day, Sensipar 30 mg daily, and tramadol 50 mg q. 6 hours. REVIEW OF SYSTEMS: Significant for lethargy, puffy face and rectal bleeding. PHYSICAL EXAMINATION GENERAL: On examination, the patient is sleepy, but arousable. VITAL SIGNS: She is afebrile. Pulse 88, respirations 14, and blood pressure 120/67. LUNGS: Bilateral fair airflow. No rhonchi or crackle. HEART: S1 and S2 audible, tachycardic. ABDOMEN: Soft and nontender. No rebound. No guarding. NEUROLOGICAL: She is sleepy, but arousable. Looks pale. LABORATORY DATA: Laboratory exam upon arrival in ER, has WBC 7.4, hemoglobin 4.1, hematocrit 13, and platelets 132. She was given 2 blood transfusions and followup hemoglobin was 4.8/14 and after 2 more blood transfusions, she has CBC done at 5:16, that is WBC of 14, hemoglobin 7.3, hematocrit 21, and platelet of 84. PT 14.7, and INR 1.34. Chemistry; sodium 137, potassium 5.4, chloride 103, CO2 of 20, BUN of 93, and creatinine 9.1. She has bleeding scan done that shows increase uptake in the left upper quadrant, which is static. No evidence of active GI bleed in the small intestine or colon. CT scan of the abdomen and pelvis shows no acute intraabdominal finding. ASSESSMENT: 1. Gastrointestinal bleed, probably upper gastrointestinal. Bleeding scan shows probably source is gastric. 2. End-stage renal disease, on hemodialysis. 3. History of peptic ulcer disease. 4. 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 5. Chronic anemia. PLAN: Discussed with Dr. Rosado. He will arrange for endoscopy. We will follow up serial CBC and CMP. The patient got hemodialysis today. Shawn Gomez MD
[2017-06-23] MEDS: Pantoprazole 40mg/100ml IVPB 40 MG/100 ML BAG IVPB SCH ×3 (10:03→21:31)
[2017-06-23] MEDS: HYDROmorphone 1 mg/ml ISec IM PRN ×2 (12:27→18:51)
--- NOTE | 2017-06-23 13:06 | PN ---
DATE: 06/23/2017 SUBJECTIVE: This patient was seen earlier in the ICU. The patient did have 3 episodes of dark stool overnight. The patient received totally 5 units of transfusion since admission. The patient's hemoglobin was 7.6 in the midnight and it dropped to 7.3. No vomiting. PHYSICAL EXAMINATION: VITAL SIGNS: Pulse 86, blood pressure 122/41, afebrile. HEENT: Atraumatic. Anicteric. NECK: Supple. HEART: S1 and S2 heard. LUNGS: Bilaterally air entry present. ABDOMEN: Soft. EXTREMITIES: No cyanosis. No clubbing. NEUROLOGIC: Alert, oriented. LABORATORY DATA: Hemoglobin 7.3, hematocrit 21.7, WBC 10.1, platelet count 90,000. BUN 82, creatinine 4.8. IMPRESSION: This 56-year-old patient end-stage renal disease, on hemodialysis, presented with 2 days' history of melena with a hemoglobin of 4.1, received 5 units of transfusion. Hemoglobin this morning was 7.3, had 3 episodes of dark stool overnight. The patient was transferred from ICU service to telemetry. I did speak with the primary physician Dr. Gomez. The decision was to give 1 more unit of transfusion and I did speak with stations superintendent that we will decide, in view of his active bleeding, possibly, we will decided to do totally 2 units of transfusion during the dialysis. The patient originally was scheduled for an upper gastrointestinal endoscopy at 8 a.m. because of the low hemoglobin and with a history of dark stools previous overnight. We wanted to optimize the patient care. The patient will be scheduled for an upper gastrointestinal endoscopy after the dialysis and transfusion. The patient has been on Protonix 4 mg per hour infusion. Other comorbidities include pulmonary hypertension, elevated chromogranin level,COPD Patient also had a congestive failure with predominantly slightly elevated right ventricular pressure. The patient has elevated chromogranin A levels and octreotide uptake scan was negative. PLAN: We will continue to closely follow up with her care and suggest further management. In my opinion, the patient with multiple comorbidities and active bleeding, the patient should be in an ICU service rather than telemetry. We will discuss this with Dr. Gomez and also with the administration. Jesus Manuel Rosado MD [facility] # [id number] [email or web address]
--- NOTE | 2017-06-23 13:58 | CP.CCUPN ---
<PratherAbdoulaye gaspar - Last Filed: 06/23/17 13:49> CCU Subjective - Physician Review Subjective (Free Text): Patient seen and examined at bedside. Resting comfortably in bed. No acute overnight events. Patient continues to complain of chronic pain. Denies fever, chills, chest pain, shortness of breath, abdominal pain, constipation, and urinary symptoms. 06/23/17 13:49 CCU Objective - Vital Signs / Intake & Output Vital Signs (Last 4 hours): Vital Signs Temp Pulse Resp BP Pulse Ox 06/23/17 12:32 131/59 L 06/23/17 12:31 76 11 L 95 06/23/17 12:30 75 11 L 95 06/23/17 12:20 80 15 97 06/23/17 12:15 81 13 138/54 L 98 06/23/17 12:10 88 15 98 06/23/17 12:00 98.1 F 82 15 132/60 99 06/23/17 11:50 93 H 23 96 06/23/17 11:45 75 13 128/52 L 97 06/23/17 11:40 82 15 98 06/23/17 11:30 85 14 128/58 L 97 06/23/17 11:20 82 97 06/23/17 11:15 82 13 130/68 99 06/23/17 11:10 98 H 97 06/23/17 11:00 79 15 134/48 L 98 06/23/17 10:50 79 15 97 06/23/17 10:45 76 17 133/55 L 98 06/23/17 10:40 87 14 97 06/23/17 10:30 81 16 139/59 L 97 06/23/17 10:20 75 12 98 06/23/17 10:15 84 10 L 150/65 96 06/23/17 10:10 77 14 97 06/23/17 10:00 78 17 128/50 L 98 06/23/17 09:50 75 13 97 Intake and Output (Last 8hrs): Intake & Output 06/22/17 06/23/17 06/23/17 22:59 06:59 14:59 Intake Total 1250 820 Output Total 490 Balance 760 820 Intake: IV 495 Right Antecubital 495 Oral 30 Blood Product 1220 325 Red Blood Cells Cpd As1 0 325 Lr Unit [id number] Output: Chest Tube Drainage 70 Left Upper Lateral Chest 70 Urine 350 Urine, Voided 350 Stool 0 Urine/Stool Mix 70 Other: # Bowel Movements 3 3 - Physical Exam Head: Positive for: Atraumatic, Normocephalic Pupils: Positive for: PERRL Conjunctiva: Negative for: Icteric Ears: Negative for: Erythema, TM Bulging, Fluid Mouth: Positive for: Moist Mucous Membranes Pharnyx: Negative for: ERYTHEMA, EXUDATE, TONSILS ENLARGED, Peritonsilar Swelling, Uvular Deviation, Muffled/Hoarse Voice, Strider, Soft Palate/Uvular Edema Nose (External): Positive for: Atraumatic Nose (Internal): Positive for: Normal Inspection Neck: Positive for: Normal Range of Motion Respiratory/Chest: Positive for: Clear to Auscultation, Good Air Exchange. Negative for: Respiratory Distress, Accessory Muscle Use Cardiovascular: Positive for: Normal S1, S2. Negative for: Murmurs Abdomen: Positive for: Normal Bowel Sounds. Negative for: Tenderness, Distention, Peritoneal Signs Back: Positive for: Normal Inspection Upper Extremity: Negative for: Cyanosis, Edema Lower Extremity: Negative for: Edema Neurological: Positive for: GCS=15, CN II-XII Intact, Speech Normal, Motor Func Grossly Intact, Normal Sensory Function Skin: Positive for: Warm, Dry. Negative for: Rashes Psychiatric: Positive for: Alert, Oriented x 3 - Medications Active Medications: Active Medications Generic Name Dose Route Start Last Admin Trade Name Freq PRN Reason Stop Dose Admin Atorvastatin Calcium 80 mg 06/22/17 17:00 06/22/17 17:11 Lipitor PO 80 mg DIN LEX Administration Cinacalcet 30 mg 06/22/17 17:00 06/22/17 17:11 Sensipar PO 30 mg DIN LEX Administration Hydromorphone HCl 0.5 mg 06/23/17 12:13 06/23/17 12:27 Dilaudid IM 0.5 mg Q4H PRN Administration Pain, moderate (4-7) Pantoprazole Sodium 40 mg in 100 mls @ 10 mls/hr 06/22/17 22:00 06/23/17 10: 03 Protonix 40mg Ivpb IVPB 10 mls/hr .Q10H LEX Administration Ondansetron HCl 4 mg 06/22/17 01:14 06/22/17 01:29 Zofran Inj IVP 4 mg Q6H PRN Administration Nausea/Vomiting Sevelamer HCl 800 mg 06/22/17 08:00 06/23/17 12:50 Renagel PO Not Given WM LEX Tramadol HCl 50 mg 06/22/17 00:39 06/22/17 17:11 Ultram PO 50 mg Q6 PRN Administration Pain, moderate (4-7) - Patient Studies Lab Studies: Microbiology Studies 06/22/17 05:21 MRSA Culture (Admit) - Final Nose MRSA NOT DETECTED 06/22/17 09:22 C. difficile Antigen & Toxin A,B (M - Final Stool Lab Studies 06/23/17 06/23/17 06/23/17 Range/Units 05:30 05:30 00:01 WBC 10.1 10.1 (4.5-11.0) 10^3/ul RBC 2.50 L 2.56 L (3.5-6.1) 10^6/uL Hgb 7.3 L 7.6 L (12.0-16.0) g/dL Hct 21.7 L 22.0 L (36.0-48.0) % MCV 86.8 85.9 (80.0-105.0) fl MCH 29.2 29.7 (25.0-35.0) pg MCHC 33.6 34.5 (31.0-37.0) g/dl RDW 15.7 H 15.4 H (11.5-14.5) % Plt Count 90 L 78 L (120.0-450.0) 10^3/uL MPV 9.0 9.3 (7.0-11.0) fl Gran % 76.5 H 76.6 H (50.0-68.0) % Lymph % (Auto) 13.7 L 13.2 L (22.0-35.0) % [place] % (Auto) 7.5 H 8.2 H (1.0-6.0) % Eos % (Auto) 2.0 1.6 (1.5-5.0) % Baso % (Auto) 0.3 0.4 (0.0-3.0) % Gran # 7.70 H 7.75 H (1.4-6.5) Lymph # 1.4 1.3 (1.2-3.4) [place] # 0.8 H 0.8 H (0.1-0.6) Eos # 0.2 0.2 (0.0-0.7) Baso # 0.03 0.04 (0.0-2.0) K/mm3 Sodium 136 (132-148) mmol/L Potassium 4.4 (3.6-5.0) mmol/L Chloride 102 (98-107) mmol/L Carbon Dioxide 31 (21-33) mmol/L Anion Gap 8 L (10-20) BUN 82 H (7-21) mg/dL Creatinine 4.8 H (0.7-1.2) mg/dl Est GFR ( Amer) 11 Est GFR (Non-Af Amer) 9 POC Glucose (mg/dL) (65-110) mg/dL Random Glucose 105 (70-110) mg/dL Calcium 7.8 L (8.4-10.5) mg/dL Phosphorus 3.5 (2.5-4.5) mg/dL Magnesium 1.9 (1.7-2.2) mg/dL Total Bilirubin 1.3 (0.2-1.3) mg/dL AST 31 (14-36) U/L ALT 33 (7-56) U/L Alkaline Phosphatase 113 (38-126) U/L Total Protein 3.6 L (5.8-8.3) g/dL Albumin 1.9 L (3.0-4.8) g/dL Globulin 1.7 gm/dL Albumin/Globulin Ratio 1.1 (1.1-1.8) 06/22/17 06/22/17 06/22/17 Range/Units 21:55 20:20 17:16 WBC 11.4 H 14.1 H D (4.5-11.0) 10^3/ul RBC 2.29 L 2.46 L (3.5-6.1) 10^6/uL Hgb 6.9 L* 7.3 L D (12.0-16.0) g/dL Hct 19.8 L* 21.1 L (36.0-48.0) % MCV 86.5 85.8 (80.0-105.0) fl MCH 30.1 29.7 (25.0-35.0) pg MCHC 34.8 34.6 (31.0-37.0) g/dl RDW 15.0 H 14.6 H (11.5-14.5) % Plt Count 82 L 84 L (120.0-450.0) 10^3/uL MPV 9.1 9.2 (7.0-11.0) fl Gran % 83.3 H (50.0-68.0) % Lymph % (Auto) 8.2 L (22.0-35.0) % [place] % (Auto) 7.6 H (1.0-6.0) % Eos % (Auto) 0.7 L (1.5-5.0) % Baso % (Auto) 0.2 (0.0-3.0) % Gran # 11.71 H (1.4-6.5) Lymph # 1.2 (1.2-3.4) [place] # 1.1 H (0.1-0.6) Eos # 0.1 (0.0-0.7) Baso # 0.03 (0.0-2.0) K/mm3 Sodium (132-148) mmol/L Potassium (3.6-5.0) mmol/L Chloride (98-107) mmol/L Carbon Dioxide (21-33) mmol/L Anion Gap (10-20) BUN (7-21) mg/dL Creatinine (0.7-1.2) mg/dl Est GFR ( Amer) Est GFR (Non-Af Amer) POC Glucose (mg/dL) 105 (65-110) mg/dL Random Glucose (70-110) mg/dL Calcium (8.4-10.5) mg/dL Phosphorus (2.5-4.5) mg/dL Magnesium (1.7-2.2) mg/dL Total Bilirubin (0.2-1.3) mg/dL AST (14-36) U/L ALT (7-56) U/L Alkaline Phosphatase (38-126) U/L Total Protein (5.8-8.3) g/dL Albumin (3.0-4.8) g/dL Globulin gm/dL Albumin/Globulin Ratio (1.1-1.8) Laboratory Results - last 24 hr 06/22/17 06/22/1706/22/17 17:16 20:20 21:55 WBC 14.1 H D 11.4 H RBC 2.46 L 2.29 L Hgb 7.3 L D 6.9 L* Hct 21.1 L 19.8 L* MCV 85.8 86.5 MCH 29.7 30.1 MCHC 34.6 34.8 RDW 14.6 H 15.0 H Plt Count 84 L 82 L MPV 9.2 9.1 Gran % 83.3 H Lymph % (Auto) 8.2 L [place] % (Auto) 7.6 H Eos % (Auto) 0.7 L Baso % (Auto) 0.2 Gran # 11.71 H Lymph # 1.2 [place] # 1.1 H Eos # 0.1 Baso # 0.03 Sodium Potassium Chloride Carbon Dioxide Anion Gap BUN Creatinine Est GFR ( Amer) Est GFR (Non-Af Amer) POC Glucose (mg/dL) 105 Random Glucose Calcium Phosphorus Magnesium Total Bilirubin AST ALT Alkaline Phosphatase Total Protein Albumin Globulin Albumin/Globulin Ratio 06/23/17 06/23/17 06/23/17 00:01 05:30 05:30 WBC 10.1 10.1 RBC 2.56 L 2.50 L Hgb 7.6 L 7.3 L Hct 22.0 L 21.7 L MCV 85.9 86.8 MCH 29.7 29.2 MCHC 34.5 33.6 RDW 15.4 H 15.7 H Plt Count 78 L 90 L MPV 9.3 9.0 Gran % 76.6 H 76.5 H Lymph % (Auto) 13.2 L 13.7 L [place] % (Auto) 8.2 H 7.5 H Eos % (Auto) 1.6 2.0 Baso % (Auto) 0.4 0.3 Gran # 7.75 H 7.70 H Lymph # 1.3 1.4 [place] # 0.8 H 0.8 H Eos # 0.2 0.2 Baso # 0.04 0.03 Sodium 136 Potassium 4.4 Chloride 102 Carbon Dioxide 31 Anion Gap 8 L BUN 82 H Creatinine 4.8 H Est GFR ( Amer) 11 Est GFR (Non-Af Amer) 9 POC Glucose (mg/dL) Random Glucose 105 Calcium 7.8 L Phosphorus 3.5 Magnesium 1.9 Total Bilirubin 1.3 AST 31 ALT 33 Alkaline Phosphatase 113 Total Protein 3.6 L Albumin 1.9 L Globulin 1.7 Albumin/Globulin Ratio 1.1 Fingerstick Blood Sugar Results: 105 Review of Systems - Review of Systems Review of Systems: 12-point review of systems negative except as indicated in the HPI Assessment/Plan - Assessment and Plan (Free Text) Assessment: Patient is a 56 year old female with past medical history of ESRD on hemodialysis (Monday/Monday/Monday), hypertension, COPD, chronic anemia, GERD , C. diff, chronic pancreatitis, and small brain aneurysm, who was admitted for evaluation and treatment of nausea, vomiting, and diarrhea with dark stool. Plan: Neurological - Patient is awake, alert, responds to verbal stimuli, follows commands, and moves extremities spontaneously - will continue to monitor status - Vitals Q4H Cardiovascular - HR trended, reviewed, and appreciated, will continue to monitor closely - BPs trended, reviewed, and appreciated, will continue to monitor closely - Will maintain MAP > 65 - Continue home lipitor Pulm: - Chest xray reviewed and appreciated- Severe cardiomegaly and mild pulmonary venous congestion - Will continue to monitor status - keep Saturation greater than 92% GI: GI bleed - heme occult positive - NPO - Continue on Protonix drip - CT of abdomen- No acute intra-abdominal findings - Nuclear scan- There is no evidence of active gastrointestinal hemorrhage within small bowel or colon. - Zofran prn nausea - GI consulted, Dr. Rosado- appreciate recommendations Endocrine: - Maintain euglycemia - Accuchecks Renal/Electrolytes ESRD on HD - creatinine and BUN trended, reviewed, and appreciated- on HD Hyperkalemia - HD as per nephro -Nephrology consulted- appreciate recommendations Heme Anemia - Hgbs trended, reviewed, and appreciated, will continue to monitor closely- 2 units of pRBCs transfused, 2 units will be transfused during HD - continue to monitor via CBC DVT Ppx - SCDs ID -stool C Diff pending -continue to monitor Patient seen, case discussed with, and plan approved by attending physician, Dr. Mcelroy. <Kosta Mcelroy - Last Filed: 06/23/17 15:05> CCU Objective - Vital Signs / Intake & Output Vital Signs (Last 4 hours): Vital Signs Temp Pulse Resp BP Pulse Ox 06/23/17 14:46 92 H 20 144/70 98 06/23/17 12:32 131/59 L 06/23/17 12:31 76 11 L 95 06/23/17 12:30 75 11 L 95 06/23/17 12:20 80 15 97 06/23/17 12:15 81 13 138/54 L 98 06/23/17 12:10 88 15 98 06/23/17 12:00 98.1 F 82 15 132/60 99 06/23/17 11:50 93 H 23 96 06/23/17 11:45 75 13 128/52 L 97 06/23/17 11:40 82 15 98 06/23/17 11:30 85 14 128/58 L 97 06/23/17 11:20 82 97 06/23/17 11:15 82 13 130/68 99 06/23/17 11:10 98 H 97 Intake and Output (Last 8hrs): Intake & Output 06/23/17 06/23/17 06/23/17 06:59 14:59 22:59 Intake Total 820 Balance 820 Intake: IV 495 Right Antecubital 495 Blood Product 325 Red Blood Cells Cpd As1 325 Lr Unit [id number] Other: # Bowel Movements 3 - Medications Active Medications: Active Medications Generic Name Dose Route Start Last Admin Trade Name Freq PRN Reason Stop Dose Admin Atorvastatin Calcium 80 mg 06/22/17 17:00 06/22/17 17:11 Lipitor PO 80 mg DIN LEX Administration Cinacalcet 30 mg 06/22/17 17:00 06/22/17 17:11 Sensipar PO 30 mg DIN LEX Administration Hydromorphone HCl 0.5 mg 06/23/17 12:13 06/23/17 12:27 Dilaudid IM 0.5 mg Q4H PRN Administration Pain, moderate (4-7) Pantoprazole Sodium 40 mg in 100 mls @ 10 mls/hr 06/22/17 22:00 06/23/17 10: 03 Protonix 40mg Ivpb IVPB 10 mls/hr .Q10H LEX Administration Ondansetron HCl 4 mg 06/22/17 01:14 06/22/17 01:29 Zofran Inj IVP 4 mg Q6H PRN Administration Nausea/Vomiting Sevelamer HCl 800 mg 06/22/17 08:00 06/23/17 12:50 Renagel PO Not Given WM LEX Tramadol HCl 50 mg 06/22/17 00:39 06/22/17 17:11 Ultram PO 50 mg Q6 PRN Administration Pain, moderate (4-7) - Patient Studies Lab Studies: Microbiology Studies 06/22/17 05:21 MRSA Culture (Admit) - Final Nose MRSA NOT DETECTED 06/22/17 09:22 C. difficile Antigen & Toxin A,B (M - Final Stool Lab Studies 06/23/17 06/23/17 06/23/17 Range/Units 05:30 05:30 00:01 WBC 10.1 10.1 (4.5-11.0) 10^3/ul RBC 2.50 L 2.56 L (3.5-6.1) 10^6/uL Hgb 7.3 L 7.6 L (12.0-16.0) g/dL Hct 21.7 L 22.0 L (36.0-48.0) % MCV 86.8 85.9 (80.0-105.0) fl MCH 29.2 29.7 (25.0-35.0) pg MCHC 33.6 34.5 (31.0-37.0) g/dl RDW 15.7 H 15.4 H (11.5-14.5) % Plt Count 90 L 78 L (120.0-450.0) 10^3/uL MPV 9.0 9.3 (7.0-11.0) fl Gran % 76.5 H 76.6 H (50.0-68.0) % Lymph % (Auto) 13.7 L 13.2 L (22.0-35.0) % [place] % (Auto) 7.5 H 8.2 H (1.0-6.0) % Eos % (Auto) 2.0 1.6 (1.5-5.0) % Baso % (Auto) 0.3 0.4 (0.0-3.0) % Gran # 7.70 H 7.75 H (1.4-6.5) Lymph # 1.4 1.3 (1.2-3.4) [place] # 0.8 H 0.8 H (0.1-0.6) Eos # 0.2 0.2 (0.0-0.7) Baso # 0.03 0.04 (0.0-2.0) K/mm3 Sodium 136 (132-148) mmol/L Potassium 4.4 (3.6-5.0) mmol/L Chloride 102 (98-107) mmol/L Carbon Dioxide 31 (21-33) mmol/L Anion Gap 8 L (10-20) BUN 82 H (7-21) mg/dL Creatinine 4.8 H (0.7-1.2) mg/dl Est GFR ( Amer) 11 Est GFR (Non-Af Amer) 9 POC Glucose (mg/dL) (65-110) mg/dL Random Glucose 105 (70-110) mg/dL Calcium 7.8 L (8.4-10.5) mg/dL Phosphorus 3.5 (2.5-4.5) mg/dL Magnesium 1.9 (1.7-2.2) mg/dL Total Bilirubin 1.3 (0.2-1.3) mg/dL AST 31 (14-36) U/L ALT 33 (7-56) U/L Alkaline Phosphatase 113 (38-126) U/L Total Protein 3.6 L (5.8-8.3) g/dL Albumin 1.9 L (3.0-4.8) g/dL Globulin 1.7 gm/dL Albumin/Globulin Ratio 1.1 (1.1-1.8) 06/22/17 06/22/17 06/22/17 Range/Units 21:55 20:20 17:16 WBC 11.4 H 14.1 H D (4.5-11.0) 10^3/ul RBC 2.29 L 2.46 L (3.5-6.1) 10^6/uL Hgb 6.9 L* 7.3 L D (12.0-16.0) g/dL Hct 19.8 L* 21.1 L (36.0-48.0) % MCV 86.5 85.8 (80.0-105.0) fl MCH 30.1 29.7 (25.0-35.0) pg MCHC 34.8 34.6 (31.0-37.0) g/dl RDW 15.0 H 14.6 H (11.5-14.5) % Plt Count 82 L 84 L (120.0-450.0) 10^3/uL MPV 9.1 9.2 (7.0-11.0) fl Gran % 83.3 H (50.0-68.0) % Lymph % (Auto) 8.2 L (22.0-35.0) % [place] % (Auto) 7.6 H (1.0-6.0) % Eos % (Auto) 0.7 L (1.5-5.0) % Baso % (Auto) 0.2 (0.0-3.0) % Gran # 11.71 H (1.4-6.5) Lymph # 1.2 (1.2-3.4) [place] # 1.1 H (0.1-0.6) Eos # 0.1 (0.0-0.7) Baso # 0.03 (0.0-2.0) K/mm3 Sodium (132-148) mmol/L Potassium (3.6-5.0) mmol/L Chloride (98-107) mmol/L Carbon Dioxide (21-33) mmol/L Anion Gap (10-20) BUN (7-21) mg/dL Creatinine (0.7-1.2) mg/dl Est GFR ( Amer) Est GFR (Non-Af Amer) POC Glucose (mg/dL) 105 (65-110) mg/dL Random Glucose (70-110) mg/dL Calcium (8.4-10.5) mg/dL Phosphorus (2.5-4.5) mg/dL Magnesium (1.7-2.2) mg/dL Total Bilirubin (0.2-1.3) mg/dL AST (14-36) U/L ALT (7-56) U/L Alkaline Phosphatase (38-126) U/L Total Protein (5.8-8.3) g/dL Albumin (3.0-4.8) g/dL Globulin gm/dL Albumin/Globulin Ratio (1.1-1.8) Laboratory Results - last 24 hr 06/22/17 06/22/17 06/22/17 17:16 20:20 21:55 WBC 14.1 H D 11.4 H RBC 2.46 L 2.29 L Hgb 7.3 L D 6.9 L* Hct 21.1 L 19.8 L* MCV 85.8 86.5 MCH 29.7 30.1 MCHC 34.6 34.8 RDW 14.6 H 15.0 H Plt Count 84 L 82 L MPV 9.2 9.1 Gran % 83.3 H Lymph % (Auto) 8.2 L [place] % (Auto) 7.6 H Eos % (Auto) 0.7 L Baso % (Auto) 0.2 Gran # 11.71 H Lymph # 1.2 [place] # 1.1 H Eos # 0.1 Baso # 0.03 Sodium Potassium Chloride Carbon Dioxide Anion Gap BUN Creatinine Est GFR ( Amer) Est GFR (Non-Af Amer) POC Glucose (mg/dL) 105 Random Glucose Calcium Phosphorus Magnesium Total Bilirubin AST ALT Alkaline Phosphatase Total Protein Albumin Globulin Albumin/Globulin Ratio 06/23/17 06/23/17 06/23/17 00:01 05:30 05:30 WBC 10.1 10.1 RBC 2.56 L 2.50 L Hgb 7.6 L 7.3 L Hct 22.0 L 21.7 L MCV 85.9 86.8 MCH 29.7 29.2 MCHC 34.5 33.6 RDW 15.4 H 15.7 H Plt Count 78 L 90 L MPV 9.3 9.0 Gran % 76.6 H 76.5 H Lymph % (Auto) 13.2 L 13.7 L [place] % (Auto) 8.2 H 7.5 H Eos % (Auto) 1.6 2.0 Baso % (Auto) 0.4 0.3 Gran # 7.75 H 7.70 H Lymph # 1.3 1.4 [place] # 0.8 H 0.8 H Eos # 0.2 0.2 Baso # 0.04 0.03 Sodium 136 Potassium 4.4 Chloride 102 Carbon Dioxide 31 Anion Gap 8 L BUN 82 H Creatinine 4.8 H Est GFR ( Amer) 11 Est GFR (Non-Af Amer) 9 POC Glucose (mg/dL) Random Glucose 105 Calcium 7.8 L Phosphorus 3.5 Magnesium 1.9 Total Bilirubin 1.3 AST 31 ALT 33 Alkaline Phosphatase 113 Total Protein 3.6 L Albumin 1.9 L Globulin 1.7 Albumin/Globulin Ratio 1.1 Assessment/Plan - Assessment and Plan (Free Text) Plan: Patient seen and examined, with resident, agree with note, with following additions/exceptions: Pt is 56yo female with PMHx of ESRD, on HD, admitted with anemia, likely 2/2 GIB. Pt had bleeding scan which was negative, and CT A/P which demonstrated no intra-abdominal pathology. Patient received 2u pRBC yesterday then additional 2u PRBC during HD, HH has been stable, Hemodynamically stable, complaining of hip/back pain, no ABD pain. Cont monitor HH, PPI drip, NPO, Follow up GI, monitor FS, HD as per renal. SCDs for DVT ppx. Stable.
[2017-06-23] MEDS ORDERED: Propofol 10 mg/ml Inj (20 ML) ONE (14:47)
[2017-06-23 17:27] LABS: BASO # 0.04 K/mm3 (0.0-2.0); BASO % 0.5 % (0.0-3.0); EOS # 0.3 (0.0-0.7); EOS % 3.2 % (1.5-5.0); GRAN # 5.48 (1.4-6.5); GRAN % 70.3 % (50.0-68.0); HEMATOCRIT 24.7 % (36.0-48.0); LYMPH # 1.5 (1.2-3.4); LYMPH % 18.8 % (22.0-35.0); MEAN CELL VOLUME 86.4 fl (80.0-105.0); MEAN CORPUSCULAR HEMOGLOBIN 29.7 pg (25.0-35.0); MEAN CORPUSCULAR HGB CONC 34.4 g/dl (31.0-37.0); MEAN PLATELET VOLUME 9.4 fl (7.0-11.0); MONO # 0.6 (0.1-0.6); MONO % 7.2 % (1.0-6.0); RED CELL DISTRIBUTION WIDTH 15.4 % (11.5-14.5); WHITE BLOOD COUNT 7.8 10^3/ul (4.5-11.0)
--- NOTE | 2017-06-23 17:39 | PCM.IRP ---
Chief Complaint: 56 yo female with blood loss anemia secondary to GIB. EGD showed fundal lesion, no intervention performed, likely source. Bleeding scan and non-contrast CT negative. IR consulted to evaluate for angiography and possible embolization. Patient currently hemodynamically stable without evidence of active bleeding (negative bleeding scan, stable h/h). Given presumed upper GI source, endoscopic intervention would likely be the most appropriate intervention in the setting of an acute bleed. If endoscopic intervention fails or is not possible, angiography and possible embolization can be considered. Please call IR with any questions. Above discussed with ICU attending, Dr. Mcelroy. Objective - Vital Signs/Intake and Output Vital Signs (last 24 hours): Vital Signs - 24 hr 06/22/17 06/22/17 06/22/17 18:00 20:00 21:25 Temperature 98.8 F 98.8 F Pulse Rate 85 83 Respiratory 12 Rate Blood Pressure 116/70 O2 Sat by Pulse Oximetry 06/22/17 06/22/17 06/22/17 21:53 22:38 23:48 Temperature 98.3 F 98.2 F 99.0 F Pulse Rate 88 84 82 Respiratory 16 20 19 Rate Blood Pressure 124/56 L 128/51 L 130/55 L O2 Sat by Pulse Oximetry 06/22/17 06/23/17 06/23/17 23:50 00:00 00:10 Temperature 99.0 F Pulse Rate 85 90 77 Respiratory 15 11 L 16 Rate Blood Pressure 134/56 L O2 Sat by Pulse 97 96 93 L Oximetry 06/23/17 06/23/17 06/23/17 00:15 00:20 00:30 Temperature Pulse Rate 82 88 83 Respiratory 15 17 15 Rate Blood Pressure 130/56 L 128/53 L O2 Sat by Pulse 95 95 93 L Oximetry 06/23/17 06/23/17 06/23/17 00:40 00:45 00:50 Temperature Pulse Rate 89 89 87 Respiratory 21 24 30 H Rate Blood Pressure 138/62 O2 Sat by Pulse 96 94 L 97 Oximetry 06/23/17 06/23/17 06/23/17 00:59 01:00 01:10 Temperature Pulse Rate 78 83 Respiratory 14 20 Rate Blood Pressure 133/57 L O2 Sat by Pulse 95 95 Oximetry 06/23/17 06/23/17 06/23/17 01:15 01:20 01:30 Temperature Pulse Rate 79 80 89 Respiratory 14 17 Rate Blood Pressure 116/40 L 123/39 L O2 Sat by Pulse 91 L 96 93 L Oximetry 06/23/17 06/23/17 06/23/17 01:40 01:45 01:50 Temperature Pulse Rate 82 80 86 Respiratory 20 18 Rate Blood Pressure 117/39 L O2 Sat by Pulse 95 93 L 96 Oximetry 06/23/17 06/23/17 06/23/17 02:00 02:10 02:15 Temperature Pulse Rate 88 87 87 Respiratory 14 17 16 Rate Blood Pressure 92/62 L 119/42 L O2 Sat by Pulse 92 L 95 93 L Oximetry 06/23/17 06/23/17 06/23/17 02:20 02:30 02:31 Temperature Pulse Rate 85 83 77 Respiratory 18 26 H 15 Rate Blood Pressure 114/37 L O2 Sat by Pulse 95 94 L 92 L Oximetry 06/23/17 06/23/17 06/23/17 02:40 02:45 02:50 Temperature Pulse Rate 82 87 86 Respiratory 19 25 H 28 H Rate Blood Pressure 126/62 O2 Sat by Pulse 96 93 L 96 Oximetry 06/23/17 06/23/17 06/23/17 03:00 03:10 03:15 Temperature Pulse Rate 83 83 82 Respiratory 19 14 18 Rate Blood Pressure 132/53 L 118/50 L O2 Sat by Pulse 94 L 96 96 Oximetry 06/23/17 06/23/17 06/23/17 03:20 03:30 03:40 Temperature Pulse Rate 88 81 83 Respiratory 17 15 17 Rate Blood Pressure 123/43 L O2 Sat by Pulse 98 94 L 95 Oximetry 06/23/17 06/23/17 06/23/17 03:45 03:50 04:00 Temperature 97.7 F Pulse Rate 83 88 84 Respiratory 18 15 16 Rate Blood Pressure 136/57 L 122/42 L O2 Sat by Pulse 93 L 97 97 Oximetry 06/23/17 06/23/17 06/23/17 04:10 04:15 04:20 Temperature Pulse Rate 82 83 85 Respiratory 17 15 47 H Rate Blood Pressure 136/59 L O2 Sat by Pulse 97 96 97 Oximetry 06/23/17 06/23/17 06/23/17 04:30 04:40 04:45 Temperature Pulse Rate 84 79 90 Respiratory 16 21 Rate Blood Pressure 138/88 123/53 L O2 Sat by Pulse 98 96 96 Oximetry 06/23/17 06/23/17 06/23/17 04:50 05:00 05:10 Temperature Pulse Rate 84 80 84 Respiratory 16 15 15 Rate Blood Pressure 126/52 L O2 Sat by Pulse 97 94 L 98 Oximetry 06/23/17 06/23/17 06/23/17 05:15 05:20 05:30 Temperature Pulse Rate 88 85 79 Respiratory 21 24 15 Rate Blood Pressure 122/41 L O2 Sat by Pulse 93 L 98 92 L Oximetry 06/23/17 06/23/17 06/23/17 05:40 05:50 06:00 Temperature Pulse Rate 81 88 78 Respiratory 15 21 Rate Blood Pressure O2 Sat by Pulse 95 96 96 Oximetry 06/23/17 06/23/17 06/23/17 06:10 06:20 06:30 Temperature Pulse Rate 79 80 81 Respiratory 13 54 H Rate Blood Pressure O2 Sat by Pulse 96 96 97 Oximetry 06/23/17 06/23/17 06/23/17 06:40 07:00 08:20 Temperature Pulse Rate 86 80 79 Respiratory 15 27 H Rate Blood Pressure O2 Sat by Pulse 96 96 Oximetry 06/23/17 06/23/17 06/23/17 08:30 08:40 08:50 Temperature Pulse Rate 86 84 85 Respiratory 16 14 Rate Blood Pressure O2 Sat by Pulse 100 96 96 Oximetry 06/23/17 06/23/17 06/23/17 09:00 09:06 09:10 Temperature Pulse Rate 78 83 83 Respiratory 14 17 26 H Rate Blood Pressure 121/57 L O2 Sat by Pulse 95 95 95 Oximetry 06/23/17 06/23/17 06/23/17 09:15 09:20 09:30 Temperature Pulse Rate 79 80 77 Respiratory 13 12 17 Rate Blood Pressure 131/54 L 126/52 L O2 Sat by Pulse 96 97 94 L Oximetry 06/23/17 06/23/17 06/23/17 09:40 09:45 09:50 Temperature Pulse Rate 77 73 75 Respiratory 12 13 13 Rate Blood Pressure 128/52 L O2 Sat by Pulse 97 98 97 Oximetry 06/23/17 06/23/17 06/23/17 10:00 10:10 10:15 Temperature Pulse Rate 78 77 84 Respiratory 17 14 10 L Rate Blood Pressure 128/50 L 150/65 O2 Sat by Pulse 98 97 96 Oximetry 06/23/17 06/23/17 06/23/17 10:20 10:30 10:40 Temperature Pulse Rate 75 81 87 Respiratory 12 16 14 Rate Blood Pressure 139/59 L O2 Sat by Pulse 98 97 97 Oximetry 06/23/17 06/23/17 06/23/17 10:45 10:50 11:00 Temperature Pulse Rate 76 79 79 Respiratory 17 15 15 Rate Blood Pressure 133/55 L 134/48 L O2 Sat by Pulse 98 97 98 Oximetry 06/23/17 06/23/17 06/23/17 11:10 11:15 11:20 Temperature Pulse Rate 98 H 82 82 Respiratory 13 Rate Blood Pressure 130/68 O2 Sat by Pulse 97 99 97 Oximetry 06/23/17 06/23/17 06/23/17 11:30 11:40 11:45 Temperature Pulse Rate 85 82 75 Respiratory 14 15 13 Rate Blood Pressure 128/58 L 128/52 L O2 Sat by Pulse 97 98 97 Oximetry 06/23/17 06/23/17 06/23/17 11:50 12:00 12:10 Temperature 98.3 F Pulse Rate 93 H 70 88 Respiratory 23 15 15 Rate Blood Pressure 132/60 O2 Sat by Pulse 96 99 98 Oximetry 06/23/17 06/23/17 06/23/17 12:15 12:20 12:30 Temperature Pulse Rate 81 80 75 Respiratory 13 15 11 L Rate Blood Pressure 138/54 L O2 Sat by Pulse 98 97 95 Oximetry 06/23/17 06/23/17 06/23/17 12:31 12:32 12:40 Temperature Pulse Rate 76 75 85 Respiratory 11 L 12 11 L Rate Blood Pressure 131/59 L 122/53 L O2 Sat by Pulse 95 96 95 Oximetry 06/23/17 06/23/17 06/23/17 12:45 12:50 13:00 Temperature Pulse Rate 89 84 92 H Respiratory 10 L 12 12 Rate Blood Pressure 115/55 L 128/55 L O2 Sat by Pulse 96 94 L 92 L Oximetry 06/23/17 06/23/17 06/23/17 13:10 13:15 13:20 Temperature Pulse Rate 92 H 88 85 Respiratory 12 11 L 11 L Rate Blood Pressure 126/57 L O2 Sat by Pulse 95 94 L 96 Oximetry 06/23/17 06/23/17 06/23/17 13:30 13:40 13:45 Temperature Pulse Rate 87 92 H 86 Respiratory 10 L 11 L 13 Rate Blood Pressure 127/55 L 128/54 L O2 Sat by Pulse 94 L 95 96 Oximetry 06/23/17 06/23/17 06/23/17 13:50 14:00 14:10 Temperature Pulse Rate 88 88 88 Respiratory 11 L 12 15 Rate Blood Pressure 133/56 L O2 Sat by Pulse 96 94 L 96 Oximetry 06/23/17 06/23/17 06/23/17 14:15 14:20 14:26 Temperature Pulse Rate 86 88 89 Respiratory 11 L 12 17 Rate Blood Pressure 124/51 L 135/81 O2 Sat by Pulse 96 96 96 Oximetry 06/23/17 06/23/17 06/23/17 14:29 14:46 15:19 Temperature Pulse Rate 92 H Respiratory 20 Rate Blood Pressure 144/70 101/41 L O2 Sat by Pulse 97 98 Oximetry 06/23/17 06/23/17 06/23/17 15:20 15:30 15:40 Temperature Pulse Rate 78 71 Respiratory 13 14 Rate Blood Pressure 105/51 L O2 Sat by Pulse 99 100 99 Oximetry 06/23/17 15:50 Temperature Pulse Rate 78 Respiratory 18 Rate Blood Pressure O2 Sat by Pulse 99 Oximetry Intake and Output (last 12 hours): Intake & Output 06/22/17 06/23/17 06/23/17 18:59 06:59 18:59 Intake Total 1860 820 Output Total 490 Balance 1370 820 Weight 140 lb 14.006 oz Intake: IV 495 Right Antecubital 495 Oral 30 Blood Product 1830 325 Apheresis Rbc Cp2d As3 Lr 285 2nd Unit [id number] Red Blood Cells Cpd As1 325 Lr Unit [id number] Red Blood Cells Cpd As1 325 Lr Unit [id number] Output: Chest Tube Drainage 70 Left Upper Lateral Chest 70 Urine 350 Urine, Voided 350 Stool 0 Urine/Stool Mix 70 Other: # Bowel Movements 3 3 - Medications Medications: Current Medications Atorvastatin Calcium (Lipitor) 80 mg PO DIN [facility] Last Admin: 06/23/17 16:10 Dose: Not Given Cinacalcet (Sensipar) 30 mg PO DIN [facility] Last Admin: 06/23/17 16:10 Dose: Not Given Hydromorphone HCl (Dilaudid) 0.5 mg IM Q4H PRN PRN Reason: Pain, moderate (4-7) Last Admin: 06/23/17 12:27 Dose: 0.5 mg Pantoprazole Sodium (Protonix 40mg Ivpb) 40 mg in 100 mls @ 10 mls/hr IVPB .Q10H LEX Last Admin: 06/23/17 10:03 Dose: 10 mls/hr Ondansetron HCl (Zofran Inj) 4 mg IVP Q6H PRN PRN Reason: Nausea/Vomiting Last Admin: 06/22/17 01:29 Dose: 4 mg Sevelamer HCl (Renagel) 800 mg PO WM LEX Last Admin: 06/23/17 16:11 Dose: Not Given Tramadol HCl (Ultram) 50 mg PO Q6 PRN PRN Reason: Pain, moderate (4-7) Last Admin: 06/22/17 17:11 Dose: 50 mg - Labs Labs (last 24 hours): Laboratory Results - last 24 hr 06/22/17 06/22/17 06/22/17 17:16 20:20 21:55 WBC 14.1 H D 11.4 H RBC 2.46 L 2.29 L Hgb 7.3 L D 6.9 L* Hct 21.1 L 19.8 L* MCV 85.8 86.5 MCH 29.7 30.1 MCHC 34.6 34.8 RDW 14.6 H 15.0 H Plt Count 84 L 82 L MPV 9.2 9.1 Gran % 83.3 H Lymph % (Auto) 8.2 L [place] % (Auto) 7.6 H Eos % (Auto) 0.7 L Baso % (Auto) 0.2 Gran # 11.71 H Lymph # 1.2 [place] # 1.1 H Eos # 0.1 Baso # 0.03 Sodium Potassium Chloride Carbon Dioxide Anion Gap BUN Creatinine Est GFR ( Amer) Est GFR (Non-Af Amer) POC Glucose (mg/dL) 105 Random Glucose Calcium Phosphorus Magnesium Total Bilirubin AST ALT Alkaline Phosphatase Total Protein Albumin Globulin Albumin/Globulin Ratio 06/23/17 06/23/17 06/23/17 00:01 05:30 05:30 WBC 10.1 10.1 RBC 2.56 L 2.50 L Hgb 7.6 L 7.3 L Hct 22.0 L 21.7 L MCV 85.9 86.8 MCH 29.7 29.2 MCHC 34.5 33.6 RDW 15.4 H 15.7 H Plt Count 78 L 90 L MPV 9.3 9.0 Gran % 76.6 H 76.5 H Lymph % (Auto) 13.2 L 13.7 L [place] % (Auto) 8.2 H 7.5 H Eos % (Auto) 1.6 2.0 Baso % (Auto) 0.4 0.3 Gran # 7.75 H 7.70 H Lymph # 1.3 1.4 [place] # 0.8 H 0.8 H Eos # 0.2 0.2 Baso # 0.04 0.03 Sodium 136 Potassium 4.4 Chloride 102 Carbon Dioxide 31 Anion Gap 8 L BUN 82 H Creatinine 4.8 H Est GFR ( Amer) 11 Est GFR (Non-Af Amer) 9 POC Glucose (mg/dL) Random Glucose 105 Calcium 7.8 L Phosphorus 3.5 Magnesium 1.9 Total Bilirubin 1.3 AST 31 ALT 33 Alkaline Phosphatase 113 Total Protein 3.6 L Albumin 1.9 L Globulin 1.7 Albumin/Globulin Ratio 1.1
--- NOTE | 2017-06-23 19:11 | CARD ---
APPROVED REPORT EXAM: Two-dimensional and M-mode echocardiogram with Doppler and color Doppler. INDICATION RT HEART PRESSURE EVALUATION 2D DIMENSIONS Left Atrium (2D)5.2 (1.6-4.0cm)IVSd1.3 (0.7-1.1cm) LVDd6.1 (3.9-5.9cm)PWd1.6 (0.7-1.1cm) M-Mode DIMENSIONS Aortic Root3.00 (2.2-3.7cm)Aortic Cusp Exc.1.90 (1.5-2.0cm) Aortic Valve AoV Peak Zemhtlam515.0cm/sAoV VTI52.0cmAO Peak GR.34mmHg LVOT Peak Uitafsfp813.0cm/sLVOT VTI28.70cmAO Mean GR.16mmHg AI P 1/2 [id number] Mitral Valve MV E Hgjdajwx604.0cm/sMV A Ahtjweii87.0cm/sE/A ratio1.4 TDI Lateral E' Peak V9.07cm/sMedial E' Peak V6.73cm/sE/Lateral E'12.8 E/Medial E'17.2 Pulmonary Valve PV Peak Qarjiafb58.7cm/sPV Peak Grad.4mmHg Tricuspid Valve TR Peak Rrlwhdkw396zv/sRAP UKUHBTBN21fcVxSJ Peak Gr.69mmHg [id number] LEFT VENTRICLE The left ventricle is normal size. There is mild concentric left ventricular hypertrophy. Left ventricle systolic function is mildly to moderately impaired. The Ejection Fraction is 40-45%. Septal Hypokinesis RIGHT VENTRICLE The right ventricle is normal size. There is normal right ventricular wall thickness. The right ventricular systolic function is normal. ATRIA The left atrium is moderately dilated. The right atrium is moderately dilated. AORTIC VALVE The aortic valve is mildly thickened. There is mild aortic regurgitation. MITRAL VALVE The mitral valve is mildly thickened. Mitral regurgitation is mild to moderate. TRICUSPID VALVE There is severe tricuspid regurgitation. There is severe pulmonary hypertension. GREAT VESSELS The aortic root is normal in size. PERICARDIAL EFFUSION There is no pericardial effusion. <Conclusion> The left ventricle is normal size. There is mild concentric left ventricular hypertrophy. Left ventricle systolic function is mildly to moderately impaired. The Ejection Fraction is 40-45%. Septal Hypokinesis There is mild aortic regurgitation. Mitral regurgitation is mild to moderate. There is severe tricuspid regurgitation. There is severe pulmonary hypertension.
[2017-06-23] MEDS ORDERED: Octreotide 1,250 MCG in Dextrose 5% In Water 250 ML IV SCH (19:30)
--- NOTE | 2017-06-23 20:07 | PN ---
DATE: 06/23/2017 SUBJECTIVE: The patient is seen lying in bed in the ICU. She appears very pale. She appears less swollen than yesterday. She is awake, but lethargic. She complaints of pain in her hip. She denies any abdominal pain. She denies any chest tightness at present. She is receiving dialysis. She is scheduled to receive 2 units of blood during dialysis. PHYSICAL EXAMINATION GENERAL: Middle-aged lady lying in bed in the ICU, very pale. VITAL SIGNS: Blood pressure 144/70, heart rate 92, respiratory rate 20, temperature 98. HEENT: Normocephalic, atraumatic, positive pallor. NECK: Supple, no JVD. LUNGS: Bilateral equal air entry, bilateral equal expansion. No rales. CARDIAC: S1, S2, regular rate and rhythm, positive murmur, no rub. ABDOMEN: Soft, nondistended, nontender, bowel sounds present. EXTREMITIES: No lower extremity edema. INTAKE AND OUTPUT: 2680/490. LABORATORY DATA: WBC 10, hemoglobin 7.3, hematocrit 22, platelets 90. Sodium 136, potassium 4.4, chloride 102, CO2 31, BUN 82, creatinine 4.8, glucose 105, calcium 7.8, phosphorus 3.5, magnesium 1.9, albumin 1.9, corrected calcium is 9.2. Cultures; C.diff negative. Nuclear bleeding scan, increase septic in the left upper quadrant, which is static. CURRENT MEDICATIONS: Dilaudid, Lipitor, Protonix, Renagel, Sensipar, Ultram, Zofran. ASSESSMENT: 1. Life threatening gastrointestinal bleed. 2. Two-day history of melena. 3. Poor response to transfusion. 4. Underlying history of end-stage renal disease. 5. History of hypertension. 6. Remote history of pericardial effusion with pericardial window. 7. Recent history of Clostridium difficile colitis. 8. Volume overload status. PLAN: 1. Case discussed at bedside with Dr. Rosado at length. The patient will receive 2 units of blood during dialysis. 2. Ultrafiltrate about 2 kg as tolerated. 3. Heparin free dialysis. 4. Endoscopy post-dialysis. 5. Close monitoring in the ICU. 6. Case discussed with nurses at bedside. 7. Case discussed with dialysis nurse. More than 35 minutes was spent in the care of this critically ill patient. Mansi Rose MD [facility] # [id number]
[2017-06-23] MEDS: Octreotide 1,250 MCG in Dextrose 5% In Water 250 ML IV SCH (20:51)
--- NOTE | 2017-06-23 21:51 | PN ---
DATE: SUBJECTIVE: The patient is a 56-year-old, has came in with GI bleed, underwent endoscopy and was found to have generalized ooze because of portal hypertension. There is no significant bleeder that could be cauterized. The patient required five blood transfusion and also her bleeding scan was positive. The patient also received two blood transfusion today and after that she was taken for endoscopy and findings were as above. PHYSICAL EXAMINATION: GENERAL: Awake and alert, look pale and puffy. VITAL SIGNS: She is afebrile pulse 74, respiration 24, blood pressure 119/37. LUNGS: Bilateral fair airflow. No rhonchi or crackle. HEART: S1 and S2 audible. Tachycardic. ABDOMEN: Soft and nontender. No rebound. No guarding. NEUROLOGIC: She is sleepy, but arousable. LABORATORY DATA: WBC 7.8, hemoglobin 8.5, hematocrit 24.7, platelet of 77. Chemistry; sodium 136, potassium 4.4, chloride 102, CO2 31, BUN 82, and creatinine 4.8. Blood sugar of 105. ASSESSMENT: 1. Gastrointestinal bleed because of portal hypertension. 2. History of active smoking and chronic obstructive pulmonary disease. 3. Pulmonary hypertension. 4. Bilateral degenerative hip disease. 5. End-stage renal disease on hemodialysis. PLAN: Discussed with Dr. Rosado. The plan is to start the patient on octreotide. We will get Cardiology evaluation and Interventional Radiologist was also involved and evaluation is appreciated. The patient currently is on Protonix drip. We will be started on octreotide. We will have serial H and H and we will discuss with the patient's family. Shawn Gomez MD
--- NOTE | 2017-06-23 22:11 | PN ---
DATE: 06/23/2017 SUBJECTIVE: This patient had an upper GI endoscopy done. The patient was found to have some oozing of the blood noticed in the fundus The patient had a significant portal engorged veins with snake skin appearence of mucosa appearance, typical of portal hypertension seen. I could not typically identify any gastric varices, but there was a clearly oozing of the blood from these engorged veins noticed. There are small amounts. Rest of the part of stomach looks okay. There are no esophageal varices noticed. There was a mild esophagitis noticed. Patchy erythema in the EG junction noticed. Duodenum, otherwise, was normal. I have requested the electorate officer and also resident who was taking care of the patient to be in the room at the time of this examination. They did notice the endoscopic findings. Post-procedure, this treatment plan was discussed. The patient has a history of congestive heart failure, predominately right-sided failure noticed. The patient has a history of pericardial effusion in the past, status post pericardial window done in the past. The patient has increased right ventricular pressure. The likely cause of the portal hypertension could be due to the cardiac cirrhosis. The patient had a last echo done 6 months ago. The patient is followed by Dr. Mccullough, brush or broom cutter. PLAN: 1. Request for cardiologic evaluation and repeat echocardiogram to evaluate the right-sided pressure. 2. Abdominal Doppler to evaluate the portal vein. 3. Close followup of the hemoglobin and hematocrit, transfuse if needed. 4. Octreotide infusion. 5. We will reduce the dose of the Protonix. 6. If the patient has an active bleeding, the reasonable thing is to consider the TIPS procedure. We will discuss with the brush or broom cutter regarding this hemodynamic status, post-TIPS if needed in view of this already increased pressure on the right side. I had a detailed discussion with the electorate officer who is taking care of the patient post-procedure. Jesus Manuel Rosado MD [facility]
[2017-06-23 23:00] LABS: BASO # 0.05 K/mm3 (0.0-2.0); BASO % 0.6 % (0.0-3.0); EOS # 0.4 (0.0-0.7); EOS % 3.9 % (1.5-5.0); GRAN # 6.68 (1.4-6.5); GRAN % 73.5 % (50.0-68.0); HEMATOCRIT 24.7 % (36.0-48.0); LYMPH # 1.2 (1.2-3.4); LYMPH % 13.4 % (22.0-35.0); MEAN CELL VOLUME 87.3 fl (80.0-105.0); MEAN CORPUSCULAR HEMOGLOBIN 29.7 pg (25.0-35.0); MEAN PLATELET VOLUME 9.3 fl (7.0-11.0); MONO # 0.8 (0.1-0.6); MONO % 8.6 % (1.0-6.0); RED CELL DISTRIBUTION WIDTH 15.8 % (11.5-14.5); WHITE BLOOD COUNT 9.1 10^3/ul (4.5-11.0)
[2017-06-24] MEDS: HYDROmorphone 1 mg/ml ISec IM PRN ×4 (01:10→23:22)
--- NOTE | 2017-06-24 03:18 | CON ---
DATE: 06/22/2017 CONSULT REQUESTED BY: Dr. Gomez REASON FOR CONSULTATION: Severe anemia, GI bleed. HISTORY OF PRESENT ILLNESS: Ms. Kraus is a 56-year-old female admitted to the hospital with dark-colored stools for 2 days. Hemoglobin was 6.3 g/dL in the ER. She has end-stage renal disease, currently on hemodialysis. She also has a history of hypertension, chronic anemia, chronic pancreatitis and C. diff colitis. She has a history of elevated chromogranin level. Octreotide scan has been negative. She received 2 units of blood transfusion. Hemodynamically, she is stable right now. She continues to have dark-colored stools and complaining of left hip pain. She is altered, content of speech not relevant. She received Dilaudid recently for pain. PAST MEDICAL HISTORY: End-stage renal disease on hemodialysis, hypertension, GERD, chronic pancreatitis, pericardial effusion, pericardial window, bronchitis, colonic polyps and C. diff colitis. PAST SURGICAL HISTORY: Pericardial window, cholecystectomy, , cardiac cath, EGD/EUS. FAMILY HISTORY: Noncontributory. PERSONAL HISTORY: Smoker, denies any alcohol abuse. ALLERGIES: ASPIRIN, CIPRO, CITRUS, HEPARIN, ENALAPRIL, LATEX, CODEINE, LOVENOX AND FLU VACCINE. MEDICATIONS: Reviewed. REVIEW OF SYSTEMS: As per HPI. A 12-point of review of systems reviewed and negative. PHYSICAL EXAMINATION GENERAL: Comfortable in bed, in no acute distress. VITAL SIGNS: Stable. Temperature 98.7, heart rate is 85 per minute, blood pressure 120/70, and respiratory rate 20 per minute. Pulse ox is 98% on oxygen by nasal cannula. HEENT: Pallor positive. NECK: No lymphadenopathy. CHEST: Air entry present and equal bilaterally. No added sounds. CARDIOVASCULAR: S1 and S2 normal. No murmur. No gallop. ABDOMEN: Soft and nontender. No hepatosplenomegaly. EXTREMITIES: No edema. LABORATORY DATA: White count 11.4, hemoglobin 6.9, hematocrit 19.9 and platelet count 82. Sodium 137, potassium 5.4, creatinine 9.1, calcium 7.8 and total bilirubin 1.3. ASSESSMENT: 1. Gastrointestinal bleed, melena. 2. Severe anemia. 3. End-stage renal disease, on hemodialysis. 4. History of chronic pancreatitis. PLAN: She was transfused 2 units of blood transfusion. I would recommend hemoglobin and hematocrit every 6 hours since she still has ongoing melena. She had 3 dark-colored stool since morning. Hemodynamically, she is stable. Stat hemoglobin and hematocrit ordered. Based on hemoglobin results, will recommend packed red blood cell transfusion, maintaining hemoglobin around 8 g/dL. Coags are normal, no coagulopathy. She is being prepared for EGD tomorrow. Bleeding scan did not identify any source of bleeding. Gastrointestinal consultation note reviewed. Diet chart and [employer] reviewed. CAT scan abdomen done on 06/22 is unremarkable. It did not show any mass lesion. Thank you Dr. Gomez for allowing us to participate in Ms. Kraus's care. Chelsy Dominguez MD
[2017-06-24 06:17] LABS: BASO # 0.07 K/mm3 (0.0-2.0); BASO % 0.9 % (0.0-3.0); EOS # 0.4 (0.0-0.7); EOS % 4.4 % (1.5-5.0); GRAN # 5.81 (1.4-6.5); GRAN % 72.7 % (50.0-68.0); HEMATOCRIT 24.7 % (36.0-48.0); LYMPH # 1.2 (1.2-3.4); LYMPH % 15.2 % (22.0-35.0); MEAN CELL VOLUME 87.9 fl (80.0-105.0); MEAN CORPUSCULAR HEMOGLOBIN 29.2 pg (25.0-35.0); MEAN CORPUSCULAR HGB CONC 33.2 g/dl (31.0-37.0); MEAN PLATELET VOLUME 9.9 fl (7.0-11.0); MONO # 0.5 (0.1-0.6); MONO % 6.8 % (1.0-6.0); RED CELL DISTRIBUTION WIDTH 16.1 % (11.5-14.5)
[2017-06-24 06:59] LABS: ALB/GLOB RATIO 1.1 (1.1-1.8); BILIRUBIN,TOTAL 1.3 mg/dL (0.2-1.3); CALCIUM 7.6 mg/dL (8.4-10.5); MAGNESIUM 1.9 mg/dL (1.7-2.2); PHOSPHOROUS 3.8 mg/dL (2.5-4.5); POTASSIUM 3.7 mmol/L (3.6-5.0); TOTAL PROTEIN 3.7 g/dL (5.8-8.3)
--- NOTE | 2017-06-24 10:32 | PN ---
SUBJECTIVE: The patient is currently seen in ICU, bed 2. She has not had a bowel movement today. She has had melena over the last several days, and her endoscopy showed a upper GI bleed coming from stomach. The area appears to be extensive. She is being evaluated for embolization therapy. MEDICATIONS: Medication list reviewed. The patient is currently on p.r.n. Dilaudid, Lipitor, octreotide infusion, Protonix, Renagel, Sensipar, Ultram on hold, Zofran p.r.n. OBJECTIVE: INTAKE/OUTPUT. 800/2000 with dialysis. VITAL SIGNS: Blood pressure is 129/52, pulse of 72, respiratory rate is 14, temperature is 97 degrees. Pulse ox is 97%. HEENT EXAM: Shows her to be normocephalic, atraumatic. Conjunctivae are pale. Sclerae are nonicteric. NECK: Supple. No neck vein distention. CHEST: Clear to auscultation and percussion. No rales, no rhonchi, no wheezing. CARDIOVASCULAR: Shows a regular rate and rhythm with TR/MR/AI. No rub. ABDOMEN: Soft. Bowel sounds normal. No rebound, no guarding, no masses. EXTREMITIES: Show a working left upper extremity AV fistula. Positive thrill. Positive bruit. No lower extremity edema. NEURO: Shows her be alert, oriented and cooperative. LABORATORY DATA AND IMAGING STUDIES: CBC; today white blood cell count 8.0, hemoglobin stable at 8.2, platelet count is 86,000. Chemistry showed normal electrolytes. BUN 36 with a creatinine of 3.5. Glucose 88 with a calcium of 7.6. Phosphorus is 3.8. Liver enzymes are normal. Alkaline phosphatase is 165. Albumin is low at 2.0. Blood bank, the patient has received a total of 7 units of packed red blood cells. Microbiology; stool for C. diff is negative. ASSESSMENT: 1. Severe life-threatening upper gastrointestinal bleed secondary to diffuse gastritis with bleeding. The patient is being evaluated for embolization therapy. She will continue to be monitored in the ICU in light of her severe gastrointestinal bleed and possible hemodynamic instability. We will try and keep her hemoglobin in the 8 to 10 range with transfusions. 2. End-stage renal disease. The patient will continue three times a week dialysis in light of the holiday schedule. The patient will receive her dialysis tomorrow. No heparin. Transfusions on dialysis if necessary. 3. History of hypertension. The patient remains normotensive, receiving no blood pressure medication. 4. History of anemia in part secondary to chronic kidney disease, superimposed with her acute gastrointestinal bleed. The patient will receive transfusions as noted above. 5. History of pericardial effusion with pericardial window. 6. History of valvular heart disease, tricuspid regurgitation/mitral regurgitation/aortic insufficiency. 7. History of chronic headaches. 8. History of chronic abdominal pain. PLAN: 1. Discussed with staff in the ICU and with the residents. The patient should be started on hyperalimentation as her albumin levels down to 2.0, and she will likely remain n.p.o. through the weekend. 2. Hemodialysis tomorrow with possible transfusion to keep hemoglobin in the 8 to 10 range. 3. Possible embolization therapy today for her extensive gastritis with bleeding. 4. Continue to monitor the patient closely in the ICU in light of the potential hemodynamic instability. Greater than 35 minutes spent in the care of this patient. Deon Mathews MD
--- NOTE | 2017-06-24 11:15 | CP.CCUPN ---
CCU Subjective - Physician Review Subjective (Free Text): Patient seen and examined at bedside. Resting comfortably in bed. No acute overnight events. Patient continues to complain of chronic hip pain. Denies fever, chills, chest pain, shortness of breath, abdominal pain, constipation, and urinary symptoms. 06/24/17 10:59 CCU Objective - Vital Signs / Intake & Output Vital Signs (Last 4 hours): Vital Signs Pulse Resp BP Pulse Ox 06/24/17 08:30 72 14 129/52 L 97 06/24/17 08:00 72 127/53 L 95 06/24/17 07:30 71 16 121/45 L 95 06/24/17 07:00 80 120/55 L 96 Intake and Output (Last 8hrs): Intake & Output 06/23/17 06/24/17 06/24/17 22:59 06:59 14:59 Intake Total 800 Output Total 2000 Balance -1200 Intake: IV 150 Right Antecubital 150 Blood Product 650 Output: Urine 0 Urine, Voided 0 Other 1999 - Physical Exam Head: Positive for: Atraumatic, Normocephalic Pupils: Positive for: PERRL Extroacular Muscles: Positive for: EOMI Conjunctiva: Negative for: Icteric Ears: Negative for: Erythema, TM Bulging, Fluid Mouth: Positive for: Moist Mucous Membranes Pharnyx: Negative for: ERYTHEMA, EXUDATE, TONSILS ENLARGED, Peritonsilar Swelling, Uvular Deviation, Muffled/Hoarse Voice, Strider, Soft Palate/Uvular Edema Nose (External): Positive for: Atraumatic Nose (Internal): Positive for: Normal Inspection Neck: Positive for: Normal Range of Motion Respiratory/Chest: Positive for: Clear to Auscultation, Good Air Exchange. Negative for: Respiratory Distress, Accessory Muscle Use Cardiovascular: Positive for: Normal S1, S2. Negative for: Murmurs Abdomen: Positive for: Normal Bowel Sounds. Negative for: Tenderness, Distention, Peritoneal Signs Rectal: Positive for: Occult Blood (guaic positive) Back: Positive for: Normal Inspection Upper Extremity: Negative for: Cyanosis, Edema Lower Extremity: Negative for: Edema Neurological: Positive for: GCS=15, CN II-XII Intact, Speech Normal, Motor Func Grossly Intact, Normal Sensory Function Skin: Positive for: Warm, Dry. Negative for: Rashes Psychiatric: Positive for: Alert, Oriented x 3 - Medications Active Medications: Active Medications Generic Name Dose Route Start Last Admin Trade Name Freq PRN Reason Stop Dose Admin Atorvastatin Calcium 80 mg 06/22/17 17:00 06/23/17 16:10 Lipitor PO Not Given DIN [facility] Cinacalcet 30 mg 06/22/17 17:00 06/23/17 16:10 Sensipar PO Not Given DIN [facility] Hydromorphone HCl 0.5 mg 06/23/17 12:13 06/24/17 09:26 Dilaudid IM 0.5 mg Q4H PRN Administration Pain, moderate (4-7) Octreotide Acetate 1,250 mcg/ 252.5 mls @ 10.1 mls/hr 06/23/17 20:30 20:51 Dextrose IV 50 mcg/hr .Q24H LEX 10.1 mls/hr Protocol Administration 50 MCG/HR Multivitamins/Vitamin C 10 ml/ 2,011 mls @ 60 mls/hr 06/24/17 18:00 Chromium/Copper/Manganese/ IV 06/27/17 17:59 Zinc 1 ml/ Amino Acids .Q24H LEX Fat Emulsion Intravenous 250 mls @ 21 mls/hr 06/24/17 18:00 Intralipid 20% IV 06/27/17 17:59 DAILY@1800 [facility] Ondansetron HCl 4 mg 06/22/17 01:14 06/22/17 01:29 Zofran Inj IVP 4 mg Q6H PRN Administration Nausea/Vomiting Pantoprazole Sodium 40 mg 06/24/17 10:00 06/24/17 09:26 Protonix Inj IVP 40 mg DAILY LEX Administration Sevelamer HCl 800 mg 06/22/17 08:00 06/24/17 08:20 Renagel PO Not Given WM LEX Tramadol HCl 50 mg 06/22/17 00:39 06/22/17 17:11 Ultram PO 50 mg Q6 PRN Administration Pain, moderate (4-7) - Patient Studies Lab Studies: Microbiology Studies 06/22/17 05:21 MRSA Culture (Admit) - Final Nose MRSA NOT DETECTED Lab Studies 06/24/17 06/24/17 06/23/17 Range/Units 05:15 05:15 22:40 WBC 8.0 9.1 (4.5-11.0) 10^3/ul RBC 2.81 L 2.83 L (3.5-6.1) 10^6/uL Hgb 8.2 L 8.4 L (12.0-16.0) g/dL Hct 24.7 L 24.7 L (36.0-48.0) % MCV 87.9 87.3 (80.0-105.0) fl MCH 29.2 29.7 (25.0-35.0) pg MCHC 33.2 34.0 (31.0-37.0) g/dl RDW 16.1 H 15.8 H (11.5-14.5) % Plt Count 86 L 86 L (120.0-450.0) 10^3/uL MPV 9.9 9.3 (7.0-11.0) fl Gran % 72.7 H 73.5 H (50.0-68.0) % Lymph % (Auto) 15.2 L 13.4 L (22.0-35.0) % Parmer % (Auto) 6.8 H 8.6 H (1.0-6.0) % Eos % (Auto) 4.4 3.9 (1.5-5.0) % Baso % (Auto) 0.9 0.6 (0.0-3.0) % Gran # 5.81 6.68 H (1.4-6.5) Lymph # 1.2 1.2 (1.2-3.4) Parmer # 0.5 0.8 H (0.1-0.6) Eos # 0.4 0.4 (0.0-0.7) Baso # 0.07 0.05 (0.0-2.0) K/mm3 Sodium 134 (132-148) mmol/L Potassium 3.7 (3.6-5.0) mmol/L Chloride 99 (98-107) mmol/L Carbon Dioxide 32 (21-33) mmol/L Anion Gap 7 L (10-20) BUN 36 H (7-21) mg/dL Creatinine 3.5 H (0.7-1.2) mg/dl Est GFR ( Amer) 16 Est GFR (Non-Af Amer) 13 Random Glucose 88 (70-110) mg/dL Calcium 7.6 L (8.4-10.5) mg/dL Phosphorus 3.8 (2.5-4.5) mg/dL Magnesium 1.9 (1.7-2.2) mg/dL Total Bilirubin 1.3 (0.2-1.3) mg/dL AST 35 (14-36) U/L ALT 41 (7-56) U/L Alkaline Phosphatase 165 H D (38-126) U/L Total Protein 3.7 L (5.8-8.3) g/dL Albumin 2.0 L (3.0-4.8) g/dL Globulin 1.8 gm/dL Albumin/Globulin Ratio 1.1 (1.1-1.8) //17 Range/Units 17:05 WBC 7.8 D (4.5-11.0) 10^3/ul RBC 2.86 L (3.5-6.1) 10^6/uL Hgb 8.5 L (12.0-16.0) g/dL Hct 24.7 L (36.0-48.0) % MCV 86.4 (80.0-105.0) fl MCH 29.7 (25.0-35.0) pg MCHC 34.4 (31.0-37.0) g/dl RDW 15.4 H (11.5-14.5) % Plt Count 77 L (120.0-450.0) 10^3/uL MPV 9.4 (7.0-11.0) fl Gran % 70.3 H (50.0-68.0) % Lymph % (Auto) 18.8 L (22.0-35.0) % Parmer % (Auto) 7.2 H (1.0-6.0) % Eos % (Auto) 3.2 (1.5-5.0) % Baso % (Auto) 0.5 (0.0-3.0) % Gran # 5.48 (1.4-6.5) Lymph # 1.5 (1.2-3.4) Parmer # 0.6 (0.1-0.6) Eos # 0.3 (0.0-0.7) Baso # 0.04 (0.0-2.0) K/mm3 Sodium (132-148) mmol/L Potassium (3.6-5.0) mmol/L Chloride (98-107) mmol/L Carbon Dioxide (21-33) mmol/L Anion Gap (10-20) BUN (7-21) mg/dL Creatinine (0.7-1.2) mg/dl Est GFR ( Amer) Est GFR (Non-Af Amer) Random Glucose (70-110) mg/dL Calcium (8.4-10.5) mg/dL Phosphorus (2.5-4.5) mg/dL Magnesium (1.7-2.2) mg/dL Total Bilirubin (0.2-1.3) mg/dL AST (14-36) U/L ALT (7-56) U/L Alkaline Phosphatase (38-126) U/L Total Protein (5.8-8.3) g/dL Albumin (3.0-4.8) g/dL Globulin gm/dL Albumin/Globulin Ratio (1.1-1.8) Laboratory Results - last 24 hr 06/23/17 06/23/17 06/24/17 17:05 22:40 05:15 WBC 7.8 D 9.1 8.0 RBC 2.86 L 2.83 L 2.81 L Hgb 8.5 L 8.4 L 8.2 L Hct 24.7 L 24.7 L 24.7 L MCV 86.4 87.3 87.9 MCH 29.7 29.7 29.2 MCHC 34.4 34.0 33.2 RDW 15.4 H 15.8 H 16.1 H Plt Count 77 L 86 L 86 L MPV 9.4 9.3 9.9 Gran % 70.3 H 73.5 H 72.7 H Lymph % (Auto) 18.8 L 13.4 L 15.2 L Parmer % (Auto) 7.2 H 8.6 H 6.8 H Eos % (Auto) 3.2 3.9 4.4 Baso % (Auto) 0.5 0.6 0.9 Gran # 5.48 6.68 H 5.81 Lymph # 1.5 1.2 1.2 Parmer # 0.6 0.8 H 0.5 Eos # 0.3 0.4 0.4 Baso # 0.04 0.05 0.07 Sodium Potassium Chloride Carbon Dioxide Anion Gap BUN Creatinine Est GFR ( Amer) Est GFR (Non-Af Amer) Random Glucose Calcium Phosphorus Magnesium Total Bilirubin AST ALT Alkaline Phosphatase Total Protein Albumin Globulin Albumin/Globulin Ratio 06/24/17 05:15 WBC RBC Hgb Hct MCV MCH MCHC RDW Plt Count MPV Gran % Lymph % (Auto) Parmer % (Auto) Eos % (Auto) Baso % (Auto) Gran # Lymph # Parmer # Eos # Baso # Sodium 134 Potassium 3.7 Chloride 99 Carbon Dioxide 32 Anion Gap 7 L BUN 36 H Creatinine 3.5 H Est GFR ( Amer) 16 Est GFR (Non-Af Amer) 13 Random Glucose 88 Calcium 7.6 L Phosphorus 3.8 Magnesium 1.9 Total Bilirubin 1.3 AST 35 ALT 41 Alkaline Phosphatase 165 H D Total Protein 3.7 L Albumin 2.0 L Globulin 1.8 Albumin/Globulin Ratio 1.1 Fingerstick Blood Sugar Results: 105
[2017-06-24] MEDS: Milrinone 20mg/100ml D5W 100 ML IV PRN (12:01)
--- NOTE | 2017-06-24 13:07 | PN ---
DATE: SUBJECTIVE: The patient is a 56-year-old female, seen and examined. She seems to be more awake and alert and no more rectal bleeding and/or melena. She had endoscopy done yesterday, shows generalized ooze from her stomach lining secondary to portal hypertension. The patient was started on octreotide that seems to be helping and she has no more bleeding since then. The patient states she is hungry, want to drink something. No complaints of nausea or vomiting. PHYSICAL EXAMINATION: VITAL SIGNS: She is afebrile, pulse is 72, respirations are 14, and blood pressure is 129/52. LUNGS: Bilateral diffusely decreased breath sounds. HEART: S1 and S2 audible. ABDOMEN: Soft and nontender. No rebound and no guarding. NEUROLOGIC: She is awake, alert and oriented, able to communicate. EXTREMITIES: Bilateral leg no edema. She has chronic bilateral hip pain. LABORATORY EXAM: WBC is 8.0, hemoglobin is 8.2, hematocrit is 24.7, and platelets of 86. Chemistry: Sodium of 134, potassium of 3.7, chloride of 99, CO2 of 32, BUN of 36, creatinine of 3.5, and blood sugar of 88. ASSESSMENT: 1. Upper gastrointestinal bleed secondary to portal hypertension. 2. Chronic obstructive pulmonary disease. 3. Tricuspid regurgitation. 4. Pulmonary hypertension. 5. Active smoker. 6. End-stage renal disease, on hemodialysis. 7. Anemia, status post multiple blood transfusions. PLAN: The patient will be started on PPN as recommended by Dr. Mathews and she is on analgesic as needed. She is on Sandostatin drip and milrinone drip. She is on IV Protonix also. We can start her on ice chips. We will monitor her hemoglobin and hematocrit. Discussed with the patient's fiance who is at the bedside. We will get pulmonary evaluation also by Dr. Painting. Shawn Gomez MD
--- NOTE | 2017-06-24 13:58 | PN ---
DATE: 06/24/2017 SUBJECTIVE: The patient is seen and examined at the bedside. She is comfortable. She talks in full sentences. She is not in respiratory or otherwise distress. She reports she is feeling better. She complains of mild abdominal tenderness, but much better than yesterday. PHYSICAL EXAMINATION: VITAL SIGNS: Blood pressure of 133/52, heart rate of 73, oxygen saturation of 93%, respiratory rate of 18, and afebrile. HEENT: Head and neck atraumatic. LUNGS: Clear to auscultation bilaterally. HEART: Regular rate and rhythm. S1 and S2 normal. ABDOMEN: Soft, nontender, and nondistended. MUSCULOSKELETAL: No C/C/E. NEUROLOGIC: The patient moves all extremities spontaneously. SKIN: Color moist. PSYCHIATRIC: The patient is alert and oriented x3. LABORATORY DATA: Sodium of 134, potassium of 3.7, chloride of 99, carbon dioxide of 32, BUN of 36, and creatinine of 3.5 (the patient is on chronic dialysis). AST of 35 and ALT of 41. Glucose of 88 and albumin of 2. WBC of 8, hemoglobin of 8.2 down from 8.4 yesterday, and platelet count of 86. MEDICATIONS: Lipitor, Sensipar, Dilaudid p.r.n., octreotide, Zofran p.r.n., Protonix, Primacor, Renagel, and Ultram p.r.n. ASSESSMENT AND PLAN: This is a 56-year-old lady with history of end-stage renal disease, who presented with upper GI bleed which on subsequent eval was found to be secondary to severe portal hypertension related gastropathy (see GI endoscopy report). Discussed finding with Dr. Rosado-if patient re-bleeds-- portal hypertension would need to be confirmed with portal vein wedge pressure measurement and once confirmed TIPS should be considered (this is in case if patient re-bleeds in the setting of above scenario), otherwise repeated endoscopy with clipping of bleeding vessels will be considered. Etiology of liver disease leading to portal hypertension is also in question. Congestive hepatopathy may or may not contribute, especially in the setting of severe pulmonary hypertension, biatrial enlargement and some LV systolic deficiency, but other potential causes of liver disease have to be ruled out as well. Will need to discuss Echo finding with cardiology service and to see whether or not PH can be fully attributed to LV dysfunction, which may have therapeutic implication. (pulmonary vasodilators are contra-indicated in the PH due to LV dysfunction). Started patient on milrinone. Meanwhile patient is alert, awake, protecting airways, hemodynamically stable, will start clear liquids and advance diet as tolerated. Will maintain Hb between 7 and 9. As patient does not appear actively bleeding will defer whether or not to transfuse platelets to maintain it to above 100 to GI service. ccm time 40 min Nazario Amaro MD MESFIN
[2017-06-24] MEDS ORDERED: Fat Emulsion 20% IV 250 ML IV SCH (18:00)
[2017-06-24] MEDS ORDERED: AMINO IV SCH (18:00)
[2017-06-24] MEDS ORDERED: DEXT IV SCH (18:00)
[2017-06-24] MEDS ORDERED: [UNRECOGNIZED DRUG - OTHER] IV SCH (18:00)
[2017-06-24] MEDS ORDERED: MULTIVITAMIN IV SCH (18:00)
[2017-06-24] MEDS ORDERED: TRACE ELEMENTS IV SCH (18:00)
[2017-06-24] MEDS: Octreotide 1,250 MCG in Dextrose 5% In Water 250 ML IV SCH (20:32)
--- NOTE | 2017-06-24 21:27 | PN ---
DATE: 06/24/2017 SUBJECTIVE: This patient was seen and evaluated earlier today. The patient has no vomiting of blood or no melena. No complaints of abdominal pain now, feeling much better, and he wants to eat. PHYSICAL EXAMINATION: VITAL SIGNS: Pulse 77, blood pressure 136/57, respirations 12, and O2 saturation 94%. HEENT: Atraumatic. Anicteric. NECK: Supple. HEART: S1 and S2 heard. LUNGS: Bilateral air entry present. ABDOMEN: Soft. Mild tenderness present in the epigastric area. No rebound or guarding. EXTREMITIES: No cyanosis. No clubbing. NEUROLOGIC: Alert, oriented, and moves all the extremities. LABORATORY DATA: Hemoglobin 8.2, hematocrit 24.7, WBC 8.0, and platelets 86. Chemistry; BUN 36, creatinine 3.5, and alkaline phosphatase 165. IMPRESSION: This 56-year-old patient with end-stage renal disease, on hemodialysis; history of pulmonary hypertension; biventricular failure; chronic obstructive pulmonary disease; and history of elevated chromogranin level with negative octreotide scan. Admitted with episodes of melena with hemoglobin of 4.1. The patient received more than 5 units of transfusion now. The patient did have an endoscopy done yesterday and was found to have multiple engorged veins in the fundus area, relatively restricted to the fundus area. With the mucosal area, mucosal surface has a typical appearance of like snake-skin appearance more suggestive of portal gastropathy. The veins are very prominent and engorged. There was active oozing of the blood noticed. There was small clotted blood noticed over the other prominent vein site. The clinical appearance was suggestive of more severe localized portal hypertension versus gastric varices area. The other less likely diagnosis could be . In view of this mucosal surface vein with the oozing, it is more towards the suggestion of the portal hypertension with bleeding. Portal gastropathy with possible early varices with bleeding. The patient did not have any esophageal varices. The patient has a history of right ventricular pressure with congested hepatomegaly, possible cardiac cirrhosis to be considered. History of severe pulmonary hypertension. RECOMMENDATIONS: Would recommend: 1. Close followup of the hemoglobin and hematocrit. 2. Continue the octreotide drip. 3. The patient has thrombocytopenia. We will cut down the Protonix dose if the platelet count still goes to be under downward trend. 4. The patient would benefit from the hepatic wedge pressure to assess the portal pressure and also would benefit from the right heart catheterization. I did have a detail discussion with the software qa system specialist, Dr. Amaro. The present plan is to close monitoring of the hemoglobin. If there is acute bleeding recurrent, then we will consider repeating the endoscopy, possibility of the clipping also to be considered, though it is not a conventional if the portal hypertensive or the gastric variceal bleeding, but if the bleeding appears to be localized, we can try the clipping of the vessel. We will consider based on the clinical course. We will also discuss with the interventional radiologist and phone technician again regarding this patient. Thank you very much for allowing us to participate in the care of the patient. Jesus Manuel Rosado MD
--- NOTE | 2017-06-25 00:34 | CON ---
DATE: 06/24/2017 LOCATION: The patient is in ICU 128, bed 2. REASON FOR CONSULTATION: Hypertension, renal failure on dialysis, pulmonary hypertension, severe tricuspid regurgitation, LV dysfunction, GI bleeding, severe anemia. HISTORY OF PRESENT ILLNESS: A 56-year-old female who is known case of renal failure on dialysis, hypertension, hyperlipidemia, admitted with history of 3 to 4 days of tarry stools. The patient also became lethargic. The patient denies any chest pain, shortness of breath or palpitation. PAST MEDICAL HISTORY: The patient's past history positive for bilateral hip replacement surgery, renal failure on dialysis, cholecystectomy, hypertension, hyperlipidemia, and gastroesophageal reflux disease, COPD. PERSONAL HISTORY: Still smokes about 10 cigarettes a day, denies drinking. MEDICATIONS AT HOME: The patient was on Lipitor 80 mg daily, Protonix 40 mg daily, Renagel 800 three times a day, Sensipar 30 mg daily, tramadol 50 mg q. 6 hours. ALLERGIES: THE PATIENT HAS LONG LIST OF ALLERGIES; ASPIRIN, CIPRO, CITRUS DERIVATIVES, ENALAPRIL, HEPARIN, LATEX, PENICILLIN, SULFA, LEVOTHYROXINE, ACETAMINOPHEN, CODEINE, LOVENOX, IODINE, INFLUENZA VACCINE. REVIEW OF SYSTEMS: All the systems reviewed. Positive mentioned in the history, otherwise negative. The patient had recent cardiac workup. The patient had echo on 06/23/2017, it showed LV ejection fraction of 40 to 45%, normal size left ventricle. LVH present, mild aortic regurgitation, mild to moderate mitral regurgitation, severe tricuspid regurgitation, RVSP 79 mmHg consistent with severe pulmonary hypertension. The patient had MUGA scan on 12/05/2016, it showed ejection fraction of 49%. The patient had catheterization 04/04/2014, which showed normal coronaries, EF 50%. LVEDP 15 mmHg. Cardiac catheterization was done because the patient on multiple complaints of chest pain, her stress test was negative at that time. The patient also had cardiac tamponade and pericardial window, 11/20/2013. PHYSICAL EXAMINATION: VITAL SIGNS: Blood pressure 126/57, respirations 18, pulse 80, the patient afebrile. HEENT: Head is normocephalic. Eyes: Pupils normal. Conjunctivae pale. NECK: JVP low. Carotids are equal. THORAX: AP diameter normal. LUNGS: Clear. CARDIOVASCULAR: S1 and S2. ABDOMEN: Soft. Tenderness in the epigastrium. No organomegaly. Bowel sounds normal. EXTREMITIES: No clubbing, no cyanosis. LABORATORY DATA: WBC 8.0; hemoglobin 8.2, on admission the patient's hemoglobin was 6.9; hematocrit 24.7, on admission hematocrit was 19.8; platelet 86, on admission platelet was 82. Sodium 134, potassium 3.7, BUN 36, creatinine 3.5. Calcium 7.6. Phosphorus and magnesium are normal. Alkaline phosphatase 165. Total protein 3.7, albumin 2.0, troponin 0.05. Chest x-ray, severe cardiomegaly. EKG; RSR, LVH. CT abdomen and pelvis, no acute abnormality. Bleeding scan showed increased uptake in the stomach. DIAGNOSES: 1. Gastrointestinal bleeding, severe anemia. 2. End-stage renal failure, on dialysis. 3. Hypertension. 4. Hyperlipidemia. 5. Gastroesophageal reflux. 6. Chronic obstructive pulmonary disease. 7. History of cardiac tamponade status post pericardial window on 11/20/2013. 8. Severe tricuspid regurgitation. 9. Severe pulmonary hypertension with right ventricular systolic pressure of 79 mmHg. 10. Cardiac catheterization, 04/04/2014, showed normal coronaries and ejection fraction 50%, left ventricular end diastolic pressure 15 mmHg. 11. Gastrointestinal bleeding, severe anemia, status post multiple blood transfusions. 12. Protein-calorie malnutrition. PLAN: The patient is getting hyperalimentation, Protonix 40 IV daily, Renagel 800 mg p.o. , Sensipar 30 mg p.o. , the patient already also receiving milrinone drip. We will continue present therapy and we will follow with you. Po Bradford MD
[2017-06-25 05:34] LABS: BASO # 0.05 K/mm3 (0.0-2.0); BASO % 0.6 % (0.0-3.0); EOS # 0.4 (0.0-0.7); EOS % 4.5 % (1.5-5.0); GRAN # 6.16 (1.4-6.5); GRAN % 75.4 % (50.0-68.0); LYMPH % 12.3 % (22.0-35.0); MEAN CELL VOLUME 87.5 fl (80.0-105.0); MEAN CORPUSCULAR HGB CONC 33.1 g/dl (31.0-37.0); MEAN PLATELET VOLUME 9.3 fl (7.0-11.0); MONO # 0.6 (0.1-0.6); MONO % 7.2 % (1.0-6.0); RED CELL DISTRIBUTION WIDTH 15.9 % (11.5-14.5); WHITE BLOOD COUNT 8.2 10^3/ul (4.5-11.0)
[2017-06-25 05:48] LABS: ALB/GLOB RATIO 1.1 (1.1-1.8); BILIRUBIN,TOTAL 1.5 mg/dL (0.2-1.3); CALCIUM 7.3 mg/dL (8.4-10.5); TOTAL PROTEIN 3.9 g/dL (5.8-8.3)
[2017-06-25] MEDS: HYDROmorphone 1 mg/ml ISec IM PRN ×4 (05:49→23:31)
--- NOTE | 2017-06-25 08:09 | CON ---
PULMONARY CONSULTATION REFERRING PHYSICIAN: Shawn Gomez MD REASON FOR CONSULTATION: Pulmonary hypertension. HISTORY: The patient is a 56-year-old chronically ill female, with past medical history significant for end-stage renal disease, on chronic hemodialysis; hypertension, chronic obstructive pulmonary disease, chronic anemia, recurrent pancreatitis, who presented to [facility]-originally on 06/21/2017-with a 2-day history of nausea, vomiting, and diarrhea/dark stools. In the emergency room, the patient was noted to be severely anemic. She was thus admitted for additional evaluation. The patient did undergo endoscopy on 06/23/2017. The endoscopy revealed severe portal hypertensive gastropathy. In addition, echocardiogram was also done on 06/23/2017. The echocardiogram revealed moderately severe pulmonary hypertension. I am thus asked to evaluate on this case for additional management and treatment. The patient is not short of breath at rest. She does have occasional periods of mild dyspnea on exertion. There is no history of cough or sputum production. There is no history of chest pain, coughing up of blood, or chest pain-made worse with deep respirations. There is no history of temperatures, chills or infectious exposure. There is no history of night sweats, weight loss or appetite change prior to the above events. No history of leg or calf pains. No history of syncope or diaphoresis. No history of recent travel or trauma. REVIEW OF SYSTEMS: The patient has chronic right hip pain. No new neurologic complaints. No urinary complaints. Rest of the review of systems is negative. ALLERGIES: ARE TO ASPIRIN, CIPROFLOXACIN, ENALAPRIL, HEPARIN, PENICILLIN, SULFONAMIDES, CODEINE, ENOXAPARIN, AND IODINE. SOCIAL HISTORY: Positive for extensive tobacco usage-still smokes. No alcohol. FAMILY HISTORY: No inheritable diseases. HOME MEDICATIONS: Not listed in the computer at the present time. PHYSICAL EXAMINATION: SUBJECTIVE: The patient appears comfortable at rest. She is not short of breath. She is not using accessory muscles for breathing. VITAL SIGNS: Temperature is 98.0, pulse 80, respirations 16, blood pressure 123/54. Oxygen saturation on room air is 94%. HEENT: Normocephalic, atraumatic. NECK: No JVD. CARDIOVASCULAR: Systolic ejection murmur at the lower left sternal border. No S3 gallop. LUNGS: Clear bilaterally. EXTREMITIES: Mild edema. No cyanosis, no clubbing. Calves are nontender to palpation. GI: Abdomen is soft, nontender and nondistended. Bowel sounds are positive. SKIN: No acute rash. NEUROLOGIC: Limited at the present time. PERTINENT LABORATORY DATA: Chest x-ray was done on 06/21/2017 and reviewed. There is severe cardiomegaly seen. There is a mild increase in the pulmonary vascular markings. Echocardiogram was done on 06/23/2017. The estimated right ventricular systolic pressure is 79. There is severe tricuspid regurgitation. The left ventricular systolic function is mild to moderately impaired. There is septal hypokinesis. CBC: White count 8.2, hemoglobin 8.6, hematocrit 26.0, platelets of 94,000. Complete metabolic profile: Chloride 96, BUN 51, creatinine 5.0, glucose 127, calcium 7.3, bilirubin 1.5, AST 44, alkaline phosphatase 192, total protein 3.9, albumin 2.1. Rest of the metabolic profiles within normal limits. IMPRESSION: 1. Gastrointestinal bleeding. 2. Portal hypertension. 3. Severe anemia. 4. Chronic obstructive pulmonary disease. 5. Moderately severe pulmonary hypertension. 6. Mild to moderate cardiomyopathy. 7. End-stage renal disease. PLAN: I did discuss the case with the ICU nurse at length. I also discussed the case with the patient at length, and reviewed the chart at length. The patient was admitted-originally on 06/21/2017-with gastrointestinal bleeding. Endoscopy done on 06/23/2017 revealed severe portal hypertensive gastropathy. The patient was transfused and the current hemoglobin is 8.6. Inputs by GI are noted. I have also reviewed the echocardiogram. The echocardiogram reveals moderately severe pulmonary hypertension. The pulmonary hypertension in this patient may be multifactorial, namely: Secondary to the left ventricular dysfunction, portal hypertension, and/or chronic obstructive pulmonary disease. The patient is currently on a milrinone drip. I will discuss the case with Cardiology. If the patient has not had a recent cardiac catheterization, she may need a repeat catheterization to adequately assess the pulmonary artery pressures (so that treatment may be available as an outpatient). Again, I will discuss the case with Cardiology later this morning. On physical exam, there is no significant bronchospasm noted. In addition, there is no significant alveolar-arterial gradient. The patient offers very minimal pulmonary symptoms at this present time. Clinical status of the patient is significantly improved-compared to the initial presentation. I will discuss the above with the entire ICU team in the next few moments. I will also discuss the above with Dr. Gomez later this morning. Thank you very much for this pulmonary consultation. David Painting MD [place]
[2017-06-25] MEDS: Milrinone 20mg/100ml D5W 100 ML IV PRN (08:20)
--- NOTE | 2017-06-25 08:59 | CP.CCUPN ---
<Sanket Lara - Last Filed: 06/25/17 09:52> CCU Subjective - Physician Review Subjective (Free Text): 06/25/17 08:56 Sanket Lara D.O. PGY-2, Critical Care Progress Note 56 year old female with a PMH of ESRD on hemodialysis M/W/F with chronic anemia , HTN, COPD, GERD, previous C. diff diarrhea, chronic pancreatitis, and brain aneurysm who presented for N/V/dark stools on 06/21 found to have GI bleed. Patient was seen and examined at bedside. Patient is more comfortable today, in no acute distress, was found resting comfortably and easily arousable. Patient at this time still has some abd pain but no repeat N/V. No acute overnight events. CCU Objective - Vital Signs / Intake & Output Vital Signs (Last 4 hours): Vital Signs Pulse Resp BP Pulse Ox 06/25/17 06:30 80 11 L 91 L 06/25/17 06:00 75 14 123/54 L 90 L 06/25/17 05:30 87 16 96 06/25/17 05:00 91 H 16 127/61 93 L Intake and Output (Last 8hrs): Intake & Output 06/24/17 06/25/17 06/25/17 22:59 06:59 14:59 Intake Total 587.5 100 Balance 587.5 100 Weight 58.831 kg Intake: IV 252.5 100 Blood Product 280 Apheresis Rbc Cp2d As3 Lr 280 2nd Unit [id number] Other 55 Apheresis Rbc Cp2d As3 Lr 55 2nd Unit [id number] - Physical Exam Head: Positive for: Atraumatic, Normocephalic Pupils: Positive for: PERRL Extroacular Muscles: Positive for: EOMI Conjunctiva: Negative for: Icteric Ears: Positive for: Normal. Negative for: Erythema, TM Bulging, Fluid Mouth: Positive for: Moist Mucous Membranes Pharnyx: Positive for: Normal. Negative for: ERYTHEMA, EXUDATE, TONSILS ENLARGED, Peritonsilar Swelling, Uvular Deviation, Muffled/Hoarse Voice, Strider , Soft Palate/Uvular Edema Nose (External): Positive for: Atraumatic Neck: Positive for: Normal Range of Motion Respiratory/Chest: Positive for: Clear to Auscultation, Good Air Exchange. Negative for: Respiratory Distress, Accessory Muscle Use Cardiovascular: Positive for: Regular Rate and Rhythm, Normal S1, S2. Negative for: Murmurs, Rub, Gallop Abdomen: Positive for: Normal Bowel Sounds. Negative for: Tenderness, Distention, Peritoneal Signs Upper Extremity: Positive for: Capillary Refill < 2s, Other (good thrill on L arm AVF fistula). Negative for: Cyanosis, Edema Lower Extremity: Positive for: Capillary Refill < 2 s. Negative for: Edema Neurological: Positive for: GCS=15, CN II-XII Intact, Speech Normal, Motor Func Grossly Intact, Normal Sensory Function Skin: Positive for: Warm, Dry. Negative for: Rashes Psychiatric: Positive for: Alert, Oriented x 3 - Medications Active Medications: Active Medications Generic Name Dose Route Start Last Admin Trade Name Freq PRN Reason Stop Dose Admin Atorvastatin Calcium 80 mg 06/22/17 17:00 06/24/17 17:16 Lipitor PO 80 mg DIN LEX Administration Cinacalcet 30 mg 06/22/17 17:00 06/24/17 17:16 Sensipar PO 30 mg DIN LEX Administration Hydromorphone HCl 0.5 mg 06/23/17 12:13 06/25/17 05:49 Dilaudid IM 0.5 mg Q4H PRN Administration Pain, moderate (4-7) Octreotide Acetate 1,250 mcg/ 252.5 mls @ 10.1 mls/hr 06/23/17 20:30 20:32 Dextrose IV 50 mcg/hr .Q24H LEX 10.1 mls/hr Protocol Administration 50 MCG/HR Multivitamins/Vitamin C 10 ml/ 2,011 mls @ 60 mls/hr 06/24/17 18:00 Chromium/Copper/Manganese/ IV 06/27/17 17:59 Zinc 1 ml/ Amino Acids .Q24H LEX Fat Emulsion Intravenous 250 mls @ 21 mls/hr 06/24/17 18:00 06/24/17 18:53 Intralipid 20% IV 06/27/17 17:59 Not Given DAILY@1800 LEX Milrinone Lactate/Dextrose 100 mls @ 3.834 mls/hr 06/24/17 11:22 06/25/17 08: 20 Primacor 20mg/100ml D5w IV 0.2 mcg/kg/min .Q24H PRN 3.834 mls/hr TITRATE PER MD ORDER Administration Protocol 0.2 MCG/KG/MIN Ondansetron HCl 4 mg 06/22/17 01:14 06/22/17 01:29 Zofran Inj IVP 4 mg Q6H PRN Administration Nausea/Vomiting Pantoprazole Sodium 40 mg 06/24/17 10:00 06/24/17 09:26 Protonix Inj IVP 40 mg DAILY LEX Administration Sevelamer HCl 800 mg 06/22/17 08:00 06/25/17 08:17 Renagel PO 800 mg WM LEX Administration Tramadol HCl 50 mg 06/22/17 00:39 06/22/17 17:11 Ultram PO 50 mg Q6 PRN Administration Pain, moderate (4-7) - Patient Studies Lab Studies: Lab Studies 06/25/17 06/25/17 Range/Units 05:00 05:00 WBC 8.2 (4.5-11.0) 10^3/ul RBC 2.97 L (3.5-6.1) 10^6/uL Hgb 8.6 L (12.0-16.0) g/dL Hct 26.0 L (36.0-48.0) % MCV 87.5 (80.0-105.0) fl MCH 29.0 (25.0-35.0) pg MCHC 33.1 (31.0-37.0) g/dl RDW 15.9 H (11.5-14.5) % Plt Count 94 L (120.0-450.0) 10^3/uL MPV 9.3 (7.0-11.0) fl Gran % 75.4 H (50.0-68.0) % Lymph % (Auto) 12.3 L (22.0-35.0) % [place] % (Auto) 7.2 H (1.0-6.0) % Eos % (Auto) 4.5 (1.5-5.0) % Baso % (Auto) 0.6 (0.0-3.0) % Gran # 6.16 (1.4-6.5) Lymph # 1.0 L (1.2-3.4) [place] # 0.6 (0.1-0.6) Eos # 0.4 (0.0-0.7) Baso # 0.05 (0.0-2.0) K/mm3 Sodium 133 (132-148) mmol/L Potassium 4.0 (3.6-5.0) mmol/L Chloride 96 L (98-107) mmol/L Carbon Dioxide 30 (21-33) mmol/L Anion Gap 11 (10-20) BUN 51 H (7-21) mg/dL Creatinine 5.0 H (0.7-1.2) mg/dl Est GFR ( Amer) 11 Est GFR (Non-Af Amer) 9 Random Glucose 127 H (70-110) mg/dL Calcium 7.3 L (8.4-10.5) mg/dL Total Bilirubin 1.5 H (0.2-1.3) mg/dL AST 44 H D (14-36) U/L ALT 34 (7-56) U/L Alkaline Phosphatase 192 H (38-126) U/L Total Protein 3.9 L (5.8-8.3) g/dL Albumin 2.1 L (3.0-4.8) g/dL Globulin 1.9 gm/dL Albumin/Globulin Ratio 1.1 (1.1-1.8) Laboratory Results - last 24 hr 06/25/17 06/25/17 05:00 05:00 WBC 8.2 RBC 2.97 L Hgb 8.6 L Hct 26.0 L MCV 87.5 MCH 29.0 MCHC 33.1 RDW 15.9 H Plt Count 94 L MPV 9.3 Gran % 75.4 H Lymph % (Auto) 12.3 L [place] % (Auto) 7.2 H Eos % (Auto) 4.5 Baso % (Auto) 0.6 Gran # 6.16 Lymph # 1.0 L [place] # 0.6 Eos # 0.4 Baso # 0.05 Sodium 133 Potassium 4.0 Chloride 96 L Carbon Dioxide 30 Anion Gap 11 BUN 51 H Creatinine 5.0 H Est GFR ( Amer) 11 Est GFR (Non-Af Amer) 9 Random Glucose 127 H Calcium 7.3 L Total Bilirubin 1.5 H AST 44 H D ALT 34 Alkaline Phosphatase 192 H Total Protein 3.9 L Albumin 2.1 L Globulin 1.9 Albumin/Globulin Ratio 1.1 Fingerstick Blood Sugar Results: 105 Critical Care Progress Note - Nutrition Nutrition: Nutrition Category Date Time Status Liquid Diet [DIET] Diets 06/24/ Dinner Ordered Assessment/Plan - Assessment and Plan (Free Text) Assessment: 56 year old female with a PMH of ESRD on hemodialysis M/W/F with chronic anemia , HTN, COPD, GERD, previous C. diff diarrhea, chronic pancreatitis, and brain aneurysm who presented for N/V/dark stools on 06/21 found to have UGI with severe portal hypertension, now s/p 8U PRBCs with stable H and H Plan: Neurological AAOx4, nonfocal Cont to monitor Cardiovascular Cardio following Echo shows LVEF 40-45%, LV function moderately impaired, septal hypokinesis, mild AR, mild-mod MR, severe TR and severe pulm HTN RVSP 79 Currently on milrinone gtt HD stable at this time Possibility of R heart cath for confirmed diagnosis of Pulm HTN per cardio Cont to monitor Pulmnologic Protecting airway Hx of COPD but comfortable at this time Pulmonary HTN, poss plan for R heart cath as mentioned above Pulm Dr. Painting following, recs appreciated Maintain O2 Sat>92% GI GI bleed, GI Dr. Rosado following, recs appreciated S/p EGD with findings of portal hypertension with oozing bleed Off Protonix drip given thrombocytopenia, now on protonix 40mg IVP qd Cont octreotide gtt Following H and H closely IR Dr. Melvin consulted for possible embolization, recs appreciated Plan for measurement of portal vein wedge pressure tomorrow for diagnosis and possible TIPS pending Hgb trend Will advance diet as tolerated Endocrine Maintain euglycemia Renal/Electrolytes ESRD on HD with worsening uremia in the setting of GI bleed, Neprho following BUN and Cr improved significantly, plan for HD today Cont cinacalcet and sevelamer Heme Acute blood loss anemia improved, s/p 8U [facility] last unit 6pm yest 06/24 Hgb did not show appropriate response only 0.4 increase, will repeat CBC after HD HD stable at this time on milrinone gtt ID Stool C diff was negative Afebrile No leukoctysosis No signs of acute infection at this time GI/DVT ppx: octreotide gtt/protonix/SCDs We will continue to target euvolemia, euglycemia, normothermia, and O2Sat >92%. Patient was seen and examined and case was discussed at [facility] with attending physician. - Date & Time Date: 06/25/17 Time: 07:00 <Nazario Amaro - Last Filed: 06/25/17 14:35> CCU Objective - Vital Signs / Intake & Output Vital Signs (Last 4 hours): Vital Signs Pulse Resp BP Pulse Ox 06/25/17 12:31 75 50 H 137/54 L 96 06/25/17 12:30 75 14 95 06/25/17 12:00 78 17 123/62 93 L 06/25/17 11:30 80 11 L 92 L 06/25/17 11:00 84 10 L 121/50 L 90 L 06/25/17 10:30 84 14 94 L Intake and Output (Last 8hrs): Intake & Output 06/24/17 06/25/17 06/25/17 22:59 06:59 14:59 Intake Total 587.5 100 Output Total 0 Balance 587.5 100 Weight 129 lb 11.2 oz 129 lb 11.2 oz Intake: IV 252.5 100 Blood Product 280 Apheresis Rbc Cp2d As3 Lr 280 2nd Unit [id number] Other 55 Apheresis Rbc Cp2d As3 Lr 55 2nd Unit [id number] Output: Urine 0 Urine, Voided 0 Other: # Bowel Movements 3 - Medications Active Medications: Active Medications Generic Name Dose Route Start Last Admin Trade Name Freq PRN Reason Stop Dose Admin Cinacalcet 30 mg 06/22/17 17:00 06/24/17 17:16 Sensipar PO 30 mg DIN LEX Administration Hydromorphone HCl 0.5 mg 06/23/17 12:13 06/25/17 10:37 Dilaudid IM 0.5 mg Q4H PRN Administration Pain, moderate (4-7) Octreotide Acetate 1,250 mcg/ 252.5 mls @ 10.1 mls/hr 06/23/17 20:30 20:32 Dextrose IV 50 mcg/hr .Q24H LEX 10.1 mls/hr Protocol Administration 50 MCG/HR Milrinone Lactate/Dextrose 100 mls @ 3.834 mls/hr 06/24/17 11:22 06/25/17 08: 20 Primacor 20mg/100ml D5w IV 0.2 mcg/kg/min .Q24H PRN 3.834 mls/hr TITRATE PER MD ORDER Administration Protocol 0.2 MCG/KG/MIN Ondansetron HCl 4 mg 06/22/17 01:14 06/22/17 01:29 Zofran Inj IVP 4 mg Q6H PRN Administration Nausea/Vomiting Pantoprazole Sodium 40 mg 06/24/17 10:00 06/25/17 09:26 Protonix Inj IVP 40 mg DAILY LEX Administration Sevelamer HCl 800 mg 06/22/17 08:00 06/25/17 08:17 Renagel PO 800 mg WM LEX Administration Tramadol HCl 50 mg 06/22/17 00:39 06/22/17 17:11 Ultram PO 50 mg Q6 PRN Administration Pain, moderate (4-7) - Patient Studies Lab Studies: Lab Studies 06/25/17 06/25/17 Range/Units 05:00 05:00 WBC 8.2 (4.5-11.0) 10^3/ul RBC 2.97 L (3.5-6.1) 10^6/uL Hgb 8.6 L (12.0-16.0) g/dL Hct 26.0 L (36.0-48.0) % MCV 87.5 (80.0-105.0) fl MCH 29.0 (25.0-35.0) pg MCHC 33.1 (31.0-37.0) g/dl RDW 15.9 H (11.5-14.5) % Plt Count 94 L (120.0-450.0) 10^3/uL MPV 9.3 (7.0-11.0) fl Gran % 75.4 H (50.0-68.0) % Lymph % (Auto) 12.3 L (22.0-35.0) % [place] % (Auto) 7.2 H (1.0-6.0) % Eos % (Auto) 4.5 (1.5-5.0) % Baso % (Auto) 0.6 (0.0-3.0) % Gran # 6.16 (1.4-6.5) Lymph # 1.0 L (1.2-3.4) [place] # 0.6 (0.1-0.6) Eos # 0.4 (0.0-0.7) Baso # 0.05 (0.0-2.0) K/mm3 Sodium 133 (132-148) mmol/L Potassium 4.0 (3.6-5.0) mmol/L Chloride 96 L (98-107) mmol/L Carbon Dioxide 30 (21-33) mmol/L Anion Gap 11 (10-20) BUN 51 H (7-21) mg/dL Creatinine 5.0 H (0.7-1.2) mg/dl Est GFR ( Amer) 11 Est GFR (Non-Af Amer) 9 Random Glucose 127 H (70-110) mg/dL Calcium 7.3 L (8.4-10.5) mg/dL Total Bilirubin 1.5 H (0.2-1.3) mg/dL AST 44 H D (14-36) U/L ALT 34 (7-56) U/L Alkaline Phosphatase 192 H (38-126) U/L Total Protein 3.9 L (5.8-8.3) g/dL Albumin 2.1 L (3.0-4.8) g/dL Globulin 1.9 gm/dL Albumin/Globulin Ratio 1.1 (1.1-1.8) Laboratory Results - last 24 hr 06/25/17 06/25/17 05:00 05:00 WBC 8.2 RBC 2.97 L Hgb 8.6 L Hct 26.0 L MCV 87.5 MCH 29.0 MCHC 33.1 RDW 15.9 H Plt Count 94 L MPV 9.3 Gran % 75.4 H Lymph % (Auto) 12.3 L [place] % (Auto) 7.2 H Eos % (Auto) 4.5 Baso % (Auto) 0.6 Gran # 6.16 Lymph # 1.0 L [place] # 0.6 Eos # 0.4 Baso # 0.05 Sodium 133 Potassium 4.0 Chloride 96 L Carbon Dioxide 30 Anion Gap 11 BUN 51 H Creatinine 5.0 H Est GFR ( Amer) 11 Est GFR (Non-Af Amer) 9 Random Glucose 127 H Calcium 7.3 L Total Bilirubin 1.5 H AST 44 H D ALT 34 Alkaline Phosphatase 192 H Total Protein 3.9 L Albumin 2.1 L Globulin 1.9 Albumin/Globulin Ratio 1.1 Critical Care Progress Note - Nutrition Nutrition: Nutrition Category Date Time Status Liquid Diet [DIET] Diets 06/24/17 Dinner Ordered Attending/Attestation - Attestation I have personally seen and examined this patient.: Yes I have fully participated in the care of the patient.: Yes I have reviewed all pertinent clinical information: Yes Notes (Text): 06/25/17 14:14 56 yo female with presumed portal hypertension gastropathy complicated by bleeding vein/upper GI bleed, which could not be contained on upper GI endoscopy. Today, Hb is still not adequately responded to 1 PRBC, even though patient maintains hemodynamic stability and tolerates oral diet well. Reportedly discussion between cardiology and private pulmonary services as well as GI services took place (see Dr. Mccullough note). As per Dr. Rosado: Patient will be going to endoscopy in am for the second look-->if patient is still oozing-->clip will be placed on bleeding vein with subsequent clinical follow up , if no bleeding noted and patient maintains hemodynamic and respiratory stability-->patient can be transfered out of ICU->further work-up for portal and pulmonary hypertension will be done at a (later) time convinient for cardiac , IR and private pulmonary service (as per conversation with Dr. Rosado) ccm time 40 min
--- NOTE | 2017-06-25 09:43 | PN ---
DATE: 06/25/2017 SUBJECTIVE: The patient has no complaints of any chest pain. No shortness of breath. No headaches or dizziness. PHYSICAL EXAMINATION VITAL SIGNS: Temperature is 98, pulse of 80, blood pressure is 123/54, and respirations are 11. GENERAL: The patient is lying in bed, flat, comfortable. HEENT: No oral lesion. Anicteric sclerae. Moist mucosa. NECK: No JVD, adenopathy, or thyromegaly. CARDIOVASCULAR: S1 and S2, regular. No murmurs, rubs, or gallops. LUNGS: Clear to auscultation bilaterally. No wheeze, rales, or rhonchi. ABDOMEN: Bowel sounds are positive, soft, nontender and nondistended. EXTREMITIES: No cyanosis, clubbing or edema. LABORATORY DATA: White count of 8.2, hemoglobin of 8.6, and creatinine is 5.0. ASSESSMENT: 1. Upper gastrointestinal bleed. 2. Portal hypertension. 3. Chronic obstructive pulmonary disease. 4. Tricuspid regurgitation. 5. Pulmonary hypertension. 6. Smoking. 7. Endstage renal disease, on hemodialysis. 8. Anemia secondary to blood loss. PLAN: The patient is currently comfortable. She is currently on Dilaudid for pain. She is on PPN. The patient is going to continue with the octreotide drip. She is also on milrinone and the patient is on Renagel for her secondary hyperparathyroidism. The patient is on cinacalcet as well. She is going to continue with tramadol for pain. Her hemoglobin has been stable. uJan Francisco Guerra MD
--- NOTE | 2017-06-25 13:43 | PN ---
DATE: 06/25/2017 REASON FOR CONSULTATION AND FOLLOWUP: GI bleed, severe anemia, portal hypertension, mitral regurgitation and tricuspid regurgitation. SUBJECTIVE: The patient denied any chest pain,but complained of epigastric pain and abdominal pain. OBJECTIVE: VITAL SIGNS: Temperature afebrile, heart rate 80, and blood pressure 123/54. HEENT: PERRLA and intact. NECK: Supple. No carotid bruit or thyromegaly. CHEST: Clear to auscultation. HEART: S1 and S2, regular. ABDOMEN: Soft. EXTREMITIES: Clubbing and cyanosis negative. LABORATORY DATA: Blood workup as follows: WBC 8.8, hemoglobin 8.6, hematocrit 26, and platelet count 94. Chemistry shows sodium 130, potassium 4, chloride 96, carbon dioxide 30, anion gap of 11, BUN 15, and creatinine 5.0. IMPRESSION: Gastrointestinal bleed, protal hypertension, anemia, history of cardiac catheterization in 04/04/2014, normal colonization 50%, LVEDP is 15. Last echo, ejection fraction of 40%-45%, normal size LV, [id number] mitral regurgitation, severe tricuspid regurgitation, RV systolic pressure is 79 consistent with severe pulmonary hypertension. The patient had MUGA scan on 12/05/2016 that showed ejection fraction of 49%. Discussed with Dr. Rosado, discussed with Dr. Painting, wanted to do a cardiac catheterization right essentially left to see any assessment of pulmonary hypertension and start medication for pulmonary hypertension. If the patient remains stable, we will do cardiac catheterization tomorrow. Further recommendations after the cardiac catheterization. We will follow with you. Thank you Dr. Gomez for providing us the opportunity in taking care of the patient, Jacqui Kraus. Po Mccullough MD
[2017-06-25 15:53] LABS: BASO # 0.03 K/mm3 (0.0-2.0); BASO % 0.4 % (0.0-3.0); EOS # 0.3 (0.0-0.7); EOS % 4.4 % (1.5-5.0); GRAN # 5.97 (1.4-6.5); GRAN % 77.9 % (50.0-68.0); HEMATOCRIT 28.1 % (36.0-48.0); LYMPH # 0.8 (1.2-3.4); LYMPH % 10.1 % (22.0-35.0); MEAN CELL VOLUME 86.5 fl (80.0-105.0); MEAN CORPUSCULAR HEMOGLOBIN 29.2 pg (25.0-35.0); MEAN CORPUSCULAR HGB CONC 33.8 g/dl (31.0-37.0); MEAN PLATELET VOLUME 9.6 fl (7.0-11.0); MONO # 0.6 (0.1-0.6); MONO % 7.2 % (1.0-6.0); RED CELL DISTRIBUTION WIDTH 15.6 % (11.5-14.5); WHITE BLOOD COUNT 7.7 10^3/ul (4.5-11.0)
[2017-06-25 17:31] LABS: CALCIUM 7.7 mg/dL (8.4-10.5)
[2017-06-25 17:32] LABS: ALB/GLOB RATIO 1.1 (1.1-1.8); BILIRUBIN,TOTAL 1.6 mg/dL (0.2-1.3)
--- NOTE | 2017-06-25 18:32 | PN ---
DATE: SUBJECTIVE: The patient is currently seen in ICU, bed 2. She is currently receiving her dialysis. She is receiving it today because of the holiday schedule this coming week. The patient states she has not had a bowel movement since I have seen her last. She has received one more unit of blood. Her hemoglobin appears to be stable at 8.6. She has received a total of 8 units of packed red blood cells. Her EGD report was noted. She is felt to have portal hypertensive gastropathy, but she has no esophageal varices. She was being evaluated for possible embolization therapy by interventional radiology. There is some talk about the possibility of doing a procedure lower her portal pressures. There is some thought that she might have congestion from severe pulmonary hypertension with higher right-sided heart pressures. MEDICATIONS: Medication list reviewed. The patient is currently on p.r.n. Dilaudid, octreotide, milrinone, Protonix, Renagel, Sensipar, Ultram, and Zofran. OBJECTIVE: INTAKE/OUTPUT: Intake 588, output 0. VITAL SIGNS: Blood pressure presently on dialysis 127/50 with a heart rate is 79, respiratory rate of 14, her temperature is 98 degrees. HEENT: Shows her be normocephalic, atraumatic. Conjunctivae are pale. Sclerae nonicteric. NECK: Supple. No neck vein distention. CHEST: Clear to auscultation and percussion. No rales or rhonchi or wheezing. CARDIOVASCULAR: Shows a regular rate and rhythm with TR/MR/AI. No rub. ABDOMEN: Soft. Bowel sounds normal. No rebound or guarding. No masses. EXTREMITIES: Show a cannulated left upper extremity AV fistula. No lower extremity edema. LABORATORY DATA AND IMAGING: CBC today white blood cell count 8.2, hemoglobin slightly higher at 8.6, status post 1 unit of packed red blood cells yesterday. Platelet count is 94,000. Chemistry showed normal electrolytes. BUN 51 with a creatinine of 5.0. Glucose 127. Calcium 7.3 with an albumin of 2.1, corrects to normal. Last phosphorus was 3.8 with a magnesium of 1.9. Bilirubin is 1.5 with mild elevation of her liver enzymes. ASSESSMENT: 1. Status post severe life-threatening upper gastrointestinal bleed secondary to diffuse gastritis thought to be secondary to portal hypertensive gastropathy. The patient was initially being evaluated for embolization therapy. Now she is being evaluated for therapy to perhaps lower the portal pressures. There is also some consideration that she might have significant right-sided heart failure with passive congestion of the liver, increased liver pressures, perhaps secondary to severe pulmonary hypertension. What is puzzling to me is that, she has no esophageal varices with the presumed diagnosis of her portal hypertensive gastropathy. 2. End-stage renal disease. The patient will continue Monday, Monday, Monday dialysis. No heparin. Transfuse on dialysis on an as needed basis. 3. History of hypertension. The patient remains normotensive in the setting of her gastrointestinal bleed. 4. History of anemia. Secondary to chronic kidney disease in part secondary to gastrointestinal bleed. The patient will receive transfusions as noted above. The patient is also receiving maximum dose of Aranesp. 5. Past history of pericardial effusion with pericardial window. 6. History of severe tricuspid regurgitation with mitral regurgitation and aortic insufficiency. 7. Severe pulmonary hypertension. 8. History of chronic headaches. 9. History of chronic abdominal pain. PLAN: 1. Discussed with dialysis nurse, ICU staff and historiography professor. The patient will continue routine dialysis three times a week with no heparin. 2. We will discuss with GI findings regarding the possible diagnosis of portal hypertension leading to the GI bleed. 3. Possibility of embolization if the patient continues to bleed. 4. Continue to monitor the patient closely in an ICU setting, given her GI bleeding and her 8 units of packed red blood cells in a 30-day period of time. 5. Greater than 35 minutes spent in the care of this patient. Deon Mathews MD
[2017-06-25] MEDS: Octreotide 1,250 MCG in Dextrose 5% In Water 250 ML IV SCH (20:34)
[2017-06-26 01:23] LABS: TOTAL PROTEIN 4.7 g/dL (5.8-8.3)
[2017-06-26] MEDS: HYDROmorphone 1 mg/ml ISec IM PRN ×3 (06:01→22:41)
[2017-06-26 06:59] LABS: BASO # 0.04 K/mm3 (0.0-2.0); BASO % 0.6 % (0.0-3.0); EOS # 0.4 (0.0-0.7); GRAN # 5.39 (1.4-6.5); GRAN % 74.3 % (50.0-68.0); HEMATOCRIT 25.6 % (36.0-48.0); LYMPH # 0.9 (1.2-3.4); LYMPH % 12.1 % (22.0-35.0); MEAN CELL VOLUME 88.6 fl (80.0-105.0); MEAN CORPUSCULAR HEMOGLOBIN 29.8 pg (25.0-35.0); MEAN CORPUSCULAR HGB CONC 33.6 g/dl (31.0-37.0); MEAN PLATELET VOLUME 9.4 fl (7.0-11.0); MONO # 0.6 (0.1-0.6); RED CELL DISTRIBUTION WIDTH 15.8 % (11.5-14.5); WHITE BLOOD COUNT 7.3 10^3/ul (4.5-11.0)
[2017-06-26 07:25] LABS: ALB/GLOB RATIO 1.1 (1.1-1.8); BILIRUBIN,TOTAL 1.3 mg/dL (0.2-1.3); CALCIUM 7.1 mg/dL (8.4-10.5); POTASSIUM 3.5 mmol/L (3.6-5.0); TOTAL PROTEIN 4.1 g/dL (5.8-8.3)
--- NOTE | 2017-06-26 08:19 | PN ---
DATE:(630am--720am) PULMONARY PROGRESS NOTE: SUBJECTIVE: The patient appears comfortable this morning. She is not short of breath at rest. PHYSICAL EXAMINATION: VITAL SIGNS: Temperature is 99.0, pulse 94, respirations 18, blood pressure 125/56. Oxygen saturation on room air is 94%. HEENT: Normocephalic, atraumatic. NECK: No JVD. CARDIOVASCULAR: Systolic ejection murmur at the lower left sternal border. No S3 gallop. LUNGS: Clear bilaterally. EXTREMITIES: Mild edema. No cyanosis, no clubbing. Calves are nontender to palpation. GI: Abdomen is soft, nontender and nondistended. Bowel sounds are positive. SKIN: No acute rash. NEUROLOGIC: Limited at the present time. PERTINENT LABORATORY DATA: CBC: White count 7.3, hemoglobin 8.6, hematocrit 25.6, platelets of 85,000. Metabolic profile is pending. IMPRESSION: 1. Gastrointestinal bleeding. 2. Portal hypertension. 3. Severe anemia. 4. Chronic obstructive pulmonary disease. 5. Moderately severe pulmonary hypertension. 6. Mild to moderate cardiomyopathy. 7. End-stage renal disease. PLAN: The patient appears comfortable this morning. She is not short of breath at rest. She does state to feeling better overall. I did discuss the case with the night nurse at length. The night nurse stated that the patient had a good night. On physical exam, the patient's lungs are clear. In addition, there is no significant alveolar-arterial gradient. I did have a long discussion with Dr. Mccullough (Cardiology) yesterday. Dr. Mccullough will proceed with cardiac catheterization-in the near future. I will most likely need the direct/exact pulmonary artery measurements-for the patient to qualify for outpatient medication. I did discuss this issue with the patient again at length this morning. She fully agrees with the plan. Clinical status of the patient is significantly improved. Inputs by renal and GI are noted. Additional a.m. labs are pending. Clinical status of the patient is significantly improved-compared to the initial presentation. I will discuss the above with the entire ICU team the next few moments. I will also discuss the above with the attending physician. David Painting MD [place]
--- NOTE | 2017-06-26 08:51 | US ---
PROCEDURE: Ultrasound Doppler of the liver. HISTORY: to evalute portal vein h/o GIB cardiac cirrhosis COMPARISON: Comparison is made to the previous CT dated 06/22/2017 TECHNIQUE: Ultrasound Doppler evaluation of the portal vein hepatic arteries and veins was performed. FINDINGS: The portal vein is patent demonstrate normal dilation of blood flow toward the liver. The hepatic arteries are also patent. The hepatic veins are normal in size and shape demonstrate normal blood flow. IMPRESSION: No evidence of portal vein thrombosis or occlusion. Normal direction of blood flow in the portal vein and hepatic vessels.
[2017-06-26] MEDS ORDERED: DiphenhydrAMINE 50 mg/ml Inj ONE (09:54)
[2017-06-26] MEDS ORDERED: Famotidine 20mg/50ml 20 MG/50 ML BAG IVPB ONE (09:54)
[2017-06-26] MEDS ORDERED: Lidocaine 2% Inj (20ml) ONE (10:03)
[2017-06-26] MEDS ORDERED: Phenylephrine 10 mg/ml Inj ONE (10:03)
--- NOTE | 2017-06-26 10:03 | PN ---
DATE: 06/25/2017 SUBJECTIVE: This patient was seen and evaluated earlier today. The patient's family was at bedside. No further episodes of bleeding and no melena. PHYSICAL EXAMINATION VITAL SIGNS: Temperature is 99, blood pressure is 121/50, and pulse rate is 86. HEENT: Atraumatic and anicteric. NECK: Supple. HEART: S1 and S2. Systolic murmur heard and the right murmur present. LUNGS: Bilateral air entry present. ABDOMEN: Soft. There is mild tenderness present in the epigastric area. EXTREMITIES: No cyanosis and no clubbing. Mild edema present. NEUROLOGIC: Alert and oriented. Moves all the extremities. LABORATORY DATA: Hemoglobin is 9.5, hematocrit is 28.1, WBC is 7.7, and platelets are 97. BUN is 13 and creatinine is 1.7. IMPRESSION: This is a 56-year-old patient with end-stage renal disease, on hemodialysis, presented with episodes of melena with the hemoglobin of 4.7. The patient had 5 units transfusion initially given and status post esophagogastroduodenoscopy, which showed very engorged prominent veins in the fundus and also the mucosal appearance were more suggestive of portal gastropathy. There might be oozing of the blood was noticed from the engorged veins. There was no varices noticed in the esophagus. CT pneumothorax was unremarkable. The impression was most likely is a portal hypertensive bleeding. May be questionable varices versus prominent veins. The patient has a history of severe pulmonary hypertension, the patient is status post pericardial window in the past. The patient does have a biventricular heart failure and predominant failure from the right side, history of hepatic congestion could contribute to the hepatic cirrhosis. PLAN: I did discuss with the show design supervisor and also with Dr. Mccullough and also with Dr. Cordon, who is covering for Dr. Gomez earlier today. The plan was to do the right heart catheterization if it is possible. Also I requested the hepatic vein wedge pressure and also gradient to evaluate for the portal hypertension. Normal gradients. Now, the patient is presently on octreotide, we will continue that and also once a day Protonix, we will continue with that. Platelet count is slowly improving. That could be related to PPI, we will discontinue after the repeat endoscopy. The timing of the endoscopy will be based on the cardiac catheterization status. Jesus Manuel Rosado MD [facility] # [id number]
[2017-06-26] MEDS ORDERED: Iodixanol 320 MG/ML 100 ML BOTTLE IV ONE (10:04)
[2017-06-26] MEDS ORDERED: Iodixanol 320 mg/ml 150 ml Bottle IV ONE (10:04)
[2017-06-26] MEDS ORDERED: Midazolam 2 MG/2 ML VIAL ONE ×2 (10:54→11:42)
--- NOTE | 2017-06-26 12:17 | CP.PCM.PN ---
<Kai Garcia - Last Filed: 06/26/17 12:29> Subjective - Date & Time of Evaluation Date of Evaluation: 06/26/17 Time of Evaluation: 12:17 - Subjective Subjective: Critical care progress note - Scotty Garcia PGY2 Patient seen and examined at bedside this morning. No acute overnight events or new complaints reported. She remains to have some mild tenderness to abdominal palpation. Scheduled for right-sided cardiac cath this morning. Objective - Vital Signs/Intake and Output Vital Signs (last 24 hours): Temp Pulse Resp BP Pulse Ox 99 F 88 14 139/61 94 L 06/26/17 04:00 06/26/17 09:00 06/26/17 09:00 06/26/17 09:00 06/26/17 09:00 Intake and Output: 06/26/17 06/26/17 06:59 18:59 Intake Total 252.5 Output Total 200 Balance 52.5 - Medications Medications: Current Medications Cinacalcet (Sensipar) 30 mg PO DIN LEX Last Admin: 06/25/17 17:14 Dose: 30 mg Hydromorphone HCl (Dilaudid) 0.5 mg IM Q4H PRN PRN Reason: Pain, moderate (4-7) Last Admin: 06/26/17 06:01 Dose: 0.5 mg Octreotide Acetate 1,250 mcg/ (Dextrose) 252.5 mls @ 10.1 mls/hr IV .Q24H LEX; 50 MCG/HR PRN Reason: Protocol Last Admin: 06/25/17 20:34 Dose: 50 mcg/hr, 10.1 mls/hr Milrinone Lactate/Dextrose (Primacor 20mg/100ml D5w) 100 mls @ 3.834 mls/hr IV .Q24H PRN; Protocol; 0.2 MCG/KG/MIN PRN Reason: TITRATE PER MD ORDER Last Admin: 06/25/17 08:20 Dose: 0.2 mcg/kg/min, 3.834 mls/hr Ondansetron HCl (Zofran Inj) 4 mg IVP Q6H PRN PRN Reason: Nausea/Vomiting Last Admin: 06/22/17 01:29 Dose: 4 mg Pantoprazole Sodium (Protonix Inj) 40 mg IVP DAILY LEX Last Admin: 06/26/17 09:14 Dose: 40 mg Sevelamer HCl (Renagel) 800 mg PO WM LEX Last Admin: 06/26/17 07:36 Dose: Not Given Tramadol HCl (Ultram) 50 mg PO Q6 PRN PRN Reason: Pain, moderate (4-7) Last Admin: 06/22/17 17:11 Dose: 50 mg - Labs Labs: 06/26/17 06:30 06/26/17 06:30 PT 14.7 SECONDS (9.4-12.5) H 06/22/17 02:30 INR 1.34 (0.93-1.08) H 06/22/17 02:30 APTT 28.3 Seconds (25.1-36.5) 06/22/17 02:30 - Constitutional Appears: No Acute Distress - Head Exam Head Exam: ATRAUMATIC, NORMAL INSPECTION, NORMOCEPHALIC - Eye Exam Eye Exam: EOMI, PERRL - ENT Exam ENT Exam: Mucous Membranes Moist - Neck Exam Neck Exam: Normal Inspection. absent: Lymphadenopathy, Tenderness, Thyromegaly - Respiratory Exam Respiratory Exam: Clear to Ausculation Bilateral. absent: Rales, Rhonchi, Wheezes - Cardiovascular Exam Cardiovascular Exam: +S1, +S2. absent: Gallop, JVD, Rubs - GI/Abdominal Exam GI & Abdominal Exam: Soft, Tenderness. absent: Distended, Firm, Guarding, Rigid , Rebound - Neurological Exam Neurological Exam: Alert, Awake, CN II-XII Intact, Oriented x3 - Psychiatric Exam Psychiatric exam: Normal Affect, Normal Mood - Skin Skin Exam: Dry, Intact, Normal Color, Warm Assessment and Plan - Assessment and Plan (Free Text) Plan: 56yo female with history of ESRD on hemodialysis(Mon/Mon/Mon), chronic anemia, HTN, COPD, GERD, chronic pancreatitis and brain aneurysm who presented to with c/o nausea, vomiting and melanotic stools on 06/21. Found to have upper GI bleed secondary to portal hypertensive gastropathy. Neuro: -Awake, alert, oriented; answering questions appropriately Cardio: -Echo shows LVEF 40-45%, LV function moderately impaired, septal hypokinesis, mild AR, mild-mod MR, severe TR and severe pulm HTN RVSP 79 -Currently on milrinone gtt -Currently hemodynamically stable; maintain MAP > 65 -Patient scheduled for right heart catherization this morning and measurement of portal vein wedge pressure -Cardio following; Dr. Mccullough Pulm: -Protecting airway -Maintain O2 Sat>92% -Pulm following; Dr. Painting GI: -Patient s/p EGD which was notable for what appeared to be portal hypertensive gastropathy with oozing bleed -Off Protonix drip given thrombocytopenia, now on protonix 40mg IVP qd per GI recommendations -GI Following; Dr. Rosado -Continue with octreotide gtt -Continue to monitor H/H closely -IR Dr. Melvin consulted for possible embolization; recommendations reviewed -Plan for measurement of portal vein wedge pressure today -Advance diet as tolerated -Patient to be scheduled for repeat endoscopy pending results of cardiac cath Endocrine: -Maintain euglycemia Renal/Electrolytes: -ESRD on HD (Mon/Mon/Mon) -Continue cinacalcet and sevelamer -Nephro following; Dr. Mathews Heme: -No overt signs of bleeding at this time -Presently s/p a total of 8 units pRBC transfusion with last unit at 6pm on -HD stable at this time on milrinone gtt -DVT prophylaxis with SCD's ID: -Cdiff negative -afebrile, no leukocytosis -No signs of infection at this time GI/DVT ppx: octreotide gtt/protonix/SCDs Patient seen and case discussed/reviewed with attending, Dr. Mcelroy <Kosta Mcelroy - Last Filed: 06/26/17 13:26> Objective - Vital Signs/Intake and Output Vital Signs (last 24 hours): Temp Pulse Resp BP Pulse Ox 98.7 F 95 H 18 127/67 98 06/26/17 12:10 06/26/17 13:10 06/26/17 13:10 06/26/17 13:10 06/26/17 13:00 Intake and Output: 06/26/17 06/26/17 06:59 18:59 Intake Total 252.5 Output Total 200 Balance 52.5 - Medications Medications: Current Medications Cinacalcet (Sensipar) 30 mg PO DIN LEX Last Admin: 06/25/17 17:14 Dose: 30 mg Hydromorphone HCl (Dilaudid) 0.5 mg IM Q4H PRN PRN Reason: Pain, moderate (4-7) Last Admin: 06/26/17 12:34 Dose: 0.5 mg Octreotide Acetate 1,250 mcg/ (Dextrose) 252.5 mls @ 10.1 mls/hr IV .Q24H LEX; 50 MCG/HR PRN Reason: Protocol Last Admin: 06/25/17 20:34 Dose: 50 mcg/hr, 10.1 mls/hr Milrinone Lactate/Dextrose (Primacor 20mg/100ml D5w) 100 mls @ 3.834 mls/hr IV .Q24H PRN; Protocol; 0.2 MCG/KG/MIN PRN Reason: TITRATE PER MD ORDER Last Admin: 06/25/17 08:20 Dose: 0.2 mcg/kg/min, 3.834 mls/hr Ondansetron HCl (Zofran Inj) 4 mg IVP Q6H PRN PRN Reason: Nausea/Vomiting Last Admin: 06/22/17 01:29 Dose: 4 mg Pantoprazole Sodium (Protonix Inj) 40 mg IVP DAILY LEX Last Admin: 06/26/17 09:14 Dose: 40 mg Sevelamer HCl (Renagel) 800 mg PO WM LEX Last Admin: 06/26/17 12:40 Dose: Not Given Tramadol HCl (Ultram) 50 mg PO Q6 PRN PRN Reason: Pain, moderate (4-7) Last Admin: 06/22/17 17:11 Dose: 50 mg - Labs Labs: 06/26/17 06:30 06/26/17 06:30 PT 14.7 SECONDS (9.4-12.5) H 06/22/17 02:30 INR 1.34 (0.93-1.08) H 06/22/17 02:30 APTT 28.3 Seconds (25.1-36.5) 06/22/17 02:30 Assessment and Plan - Assessment and Plan (Free Text) Plan: Patient seen and examined with resident on rounds, agree with note with following additions exceptiosn: Patient is 56yo female with PMHx of ESRd on HD, chronic anemia, HTN, COPD, GERD , chronic pancreatitis and brain aneurysm who was amiddted with melanotic stools on 06/21. Found to have upper GI bleed. Currently afebrile, HD stable, comfortable, NAD. s/p Right heart cath with cardiology, possible EGD today. HH 8.6 today, s/p 1u PRBC yesterday. Monitor HH, cont with PPI daily. Possible EGD today. Continue to monitor in MICU for now.
[2017-06-26 15:56] LABS: EOS % 0.3 % (1.5-5.0); GRAN # 5.94 (1.4-6.5); GRAN % 96.5 % (50.0-68.0); HEMATOCRIT 26.4 % (36.0-48.0); LYMPH # 0.2 (1.2-3.4); LYMPH % 2.6 % (22.0-35.0); MEAN CELL VOLUME 88.3 fl (80.0-105.0); MEAN CORPUSCULAR HEMOGLOBIN 29.1 pg (25.0-35.0); MEAN PLATELET VOLUME 9.8 fl (7.0-11.0); MONO % 0.6 % (1.0-6.0); PLATELET COUNT 99 10^3/uL (120.0-450.0); RED CELL DISTRIBUTION WIDTH 15.5 % (11.5-14.5); WHITE BLOOD COUNT 6.2 10^3/ul (4.5-11.0)
[2017-06-26 16:53] LABS: NEUTROPHIL 97 % (50.0-70.0)
[2017-06-26 16:54] LABS: PLATELET ESTIMATE LOW (NORMAL)
--- NOTE | 2017-06-26 18:06 | CARD ---
APPROVED REPORT Procedure(s) performed: Complete Heart Catheterization Hepatic vein Wedge pressure HISTORY The patient is a 56 year-old female with a history of : Hx of ESRD admitted with GI Bleed, Hx of Pulmonary HTN and Portal HTN, thought to be Cardiac by Gi and pulmonary. INDICATION The indication(s) include : chest pain, dyspnea, valvular heart disease. CASE TECHNIQUE The patient was brought urgently to the Cardiac Catheterization Laboratory in a fasting state and was prepped and draped in a sterile manner. The right femoral groin was infiltrated with 2% Lidocaine subcutaneous anesthesia. A sheath was inserted into the right femoral artery without difficulty. Coronary angiography was performed using coronary diagnostic catheters. The left coronary system was accessed and visualized with a Diagnostic , [id number], 4.0 catheter. The right coronary system was accessed and visualized with a Diagnostic , Jr 3.5,5Fr catheter. The left ventricle was accessed and visualized with a Pigtail catheter catheter. Left ventricular/Aortic Valve gradient assessed on pullback. Left ventriculogram was performed in BALDERAS projection. A Right Heart Catheterization was performed with a 7 Fr. Talmage-Jennifer catheter and pressure were recorded. A 7 sheath was inserted into the right femoral vein without difficulty. Coronary angiography was performed using coronary diagnostic catheters. Cardiac outputs were obtained by the Thermal Dilution method. Pre-demployment femoral angiogram was performed . Closure device was deployed with a 6 Fr Mynx without any complications. The patient tolerated the procedure well and there were no complications associated with the procedure. Vessel Analysis The patient's coronary anatomy is right dominant. The left main coronary artery is a large size vessel with intimal irregularities and without significant stenosis. The left main bifurcates to the left anterior descending and circumflex. The left anterior descending artery is a large size vessel with intimal irregularities and without significant stenosis. The first diagonal branch is a medium size vessel with diffuse calcification noted throughout this vessel and without significant stenosis. The second diagonal branch is a medium size vessel without significant stenosis. The circumflex artery is a large size vessel with intimal irregularities and without significant stenosis. The first obtuse marginal branch is a large size vessel with intimal irregularities and without significant stenosis. The second obtuse marginal branch is a large size vessel with intimal irregularities and without significant stenosis. The right coronary artery is a large size vessel with intimal irregularities and without significant stenosis. The right posterior descending artery is a medium size vessel without significant stenosis. Left Ventricle The left ventricle is normal in size with mildly decreased contractility. Non-Ischemic cardiomyopathy. The left ventricular ejection fraction is estimated to be 45-50%. The left ventricular end diastolic pressure is 12-14 mmHg. There was no gradient across the aortic valve upon pullback. Right Heart Cath Findings The Right Atrial Pressure is 5-6 mmHg. The Right Ventricular Pressure is 34/8 mmHg. The Pulmonary Artery Pressure is 30/10 mmHg. with a mean of 15 The Pulmonary Catheter Wedge Pressure is 10 mmHg. PVR 0.5 Wood units. The cardiac output and index were assessed using thermo dilution. The Cardiac Output is 10.30 L/min. The Cardiac index is 6.26 L/min/m2. Hepatic vein -5mmof hg, and Hepatic wedge 8 mm of Hg. Conclusion Normal Coronaries, Upper limit Normal RHC PVR 0.5 damon unit ( pt was on primacor earlier) Hepatic vein -5mmof Hg, Hepatic wedge -8mmof hg Non Ischemic CMP- EF-45-50% Recommendations Aggressive Medical TherapyCardiac Risk Reduction Program CC; Drs. Gomez/ Garima/ Damari Garcia
--- NOTE | 2017-06-26 19:11 | PN ---
DATE: 06/26/2017 REASON FOR CONSULTATION: GI bleed, severe anemia, portal hypertension, mitral regurgitation, tricuspid regurgitation, and going for cardiac catheterization. SUBJECTIVE: The patient denies any chest pain, shortness of breath, or any palpitation. PHYSICAL EXAMINATION: GENERAL: Not in apparent distress. VITAL SIGNS: As follows; temperature afebrile, heart rate 93, and blood pressure 121/63. HEENT: PERRLA intact. NECK: Supple. No carotid bruit or thyromegaly. CHEST: Clear to auscultation. HEART: S1 and S2 regular. ABDOMEN: Soft. EXTREMITIES: Clubbing and cyanosis negative. LABORATORY DATA: Blood workup as follows: WBC 6.2, hemoglobin 8.3, hematocrit 26.4, and platelet count 99. Chemistry shows sodium 130, potassium 3.5, chloride 96, carbon dioxide 32, anion gap of 8, BUN 23, and creatinine 3.6. IMPRESSION: Gastrointestinal bleed; end-stage renal disease, on dialysis; mitral regurgitation; and tricuspid regurgitation. I discussed with Dr. Rosado and discussed with Dr. Painting, they were thinking about the patient needs cardiac catheterization, so the patient underwent cardiac catheterization that revealed normal coronaries, normal pressure in hepatic vein and normal pulmonary pressure. No evidence of hypertension noted, though the patient was on earlier Primacor. RECOMMENDATIONS: Continue dialysis. Discontinue Primacor. Continue Protonix. Further recommendations as per Gastroenterology and Pulmonary. We will follow with you. We will follow the blood workup in the morning. Full cath report to follow. Thank you Dr. Gomez for providing us the opportunity in taking care of Jacqui Kraus. Po Mccullough MD
--- NOTE | 2017-06-26 20:24 | PN ---
DATE: SUBJECTIVE: The patient is a 56-year-old, seen and examined, just came back from cardiac cath, was found to have nonocclusive coronaries. PHYSICAL EXAMINATION VITAL SIGNS: She is afebrile. Pulse 90, respirations 24, blood pressure 120/63. LUNGS: Bilateral fair airflow. No rhonchi or crackles. HEART: S1 and S2 audible. ABDOMEN: Soft, nontender. No rebound. No guarding. NEUROLOGIC: The patient is awake and alert, communicative. LABORATORY DATA: WBC 6.2, hemoglobin 8.7,hematocrit 26.4, platelet of 99. Chemistry, sodium 132, potassium 3.5, chloride 96, CO2 32, BUN 23, creatinine 3.6, blood sugar of 149, calcium 7.1, alkaline phosphatase 196. Cardiac cath done by Dr. Mccullough shows normal coronaries, upper limit normal, slight heart contraction. Ejection fraction of 45 to 50. Right ventricular pressure is 34/8, pulmonary artery pressure is 30/10. ASSESSMENT: 1. Gastrointestinal bleed, status post endoscopy. 2. Status post cardiac cath, rule out right pulmonary hypertension, and right ventricular failure, ruled out. 3. Portal hypertension. 4. End-stage renal disease, on hemodialysis. PLAN: The patient is on Protonix. She is on liquid diet. Plan is to do endoscopy tomorrow and monitor her H and H; if it is stable, she will be transferred to telemetry tomorrow after endoscopy. Shawn Gomez MD
[2017-06-26] MEDS: Octreotide 1,250 MCG in Dextrose 5% In Water 250 ML IV SCH (22:37)
--- NOTE | 2017-06-26 23:55 | PN ---
DATE: 06/26/2017 SUBJECTIVE: This patient was seen and evaluated earlier in the morning. The patient was scheduled to go for cardiac cath at that time. No further episodes of bleeding. The patient's son was at bedside. PHYSICAL EXAMINATION VITAL SIGNS: On examination she is afebrile. Temperature is 98.7, blood pressure 139/61, pulse 88, respirations 14. HEENT: Atraumatic. Anicteric. NECK: Supple. HEART: S1 and S2 heard. LUNGS: Bilaterally air entry present. Systolic murmur present. ABDOMEN: Soft. There is mild tenderness in the right upper quadrant in the epigastric area. There is no rebound or guarding. EXTREMITIES: No cyanosis. No clubbing. LABORATORY DATA: Hemoglobin 8.7, hematocrit 26.4, WBC 6.2, platelets 99. Chemistry; BUN 23, creatinine 3.6, alkaline phosphatase 196. IMPRESSION: This 56-year-old patient admitted with 2-day history of melena with hemoglobin of 4.1. The patient is status post 8 units transfused. Hemoglobin is 8.6, it was 9.5 yesterday. Endoscopy showed mild oozing of the blood with engorged veins in the fundus suggestive of possible portal hypertension. The patient has a history of increased right ventricular systolic pressure and pulmonary hypertension, history of chronic obstructive pulmonary disease, planned for both right and left heart catheterization. The patient had a cardiac catheterization done later today and was found to have normal coronaries and normal pressure in the hepatic vein and pulmonary vessels. No pulmonary hypertension or hepatic venous pressure increased noted. was discontinued. PLAN: We will discuss with the Cardiology and also boiler helper. We will repeat the EGD in a.m. Thank you very much for allowing us to participate in the care of the patient. Jesus Manuel Rosado MD
[2017-06-27] MEDS: HYDROmorphone 1 mg/ml ISec IM PRN ×3 (05:38→21:29)
[2017-06-27 07:20] LABS: GRAN # 4.63 (1.4-6.5); GRAN % 87.8 % (50.0-68.0); LYMPH # 0.3 (1.2-3.4); LYMPH % 6.5 % (22.0-35.0); MEAN CELL VOLUME 87.5 fl (80.0-105.0); MEAN CORPUSCULAR HEMOGLOBIN 29.1 pg (25.0-35.0); MEAN CORPUSCULAR HGB CONC 33.2 g/dl (31.0-37.0); MEAN PLATELET VOLUME 9.9 fl (7.0-11.0); MONO # 0.3 (0.1-0.6); MONO % 5.7 % (1.0-6.0); RED CELL DISTRIBUTION WIDTH 15.3 % (11.5-14.5); WHITE BLOOD COUNT 5.3 10^3/ul (4.5-11.0)
[2017-06-27 07:33] LABS: HEMATOCRIT 23.2 % (36.0-48.0)
--- NOTE | 2017-06-27 07:35 | PN ---
SUBJECTIVE: The patient appears very comfortable this morning. She is not short of breath at rest. PHYSICAL EXAMINATION: VITAL SIGNS: Temperature is 98.7, pulse 76, respirations 14, blood pressure 120/52. Oxygen saturation on room air is 95%. HEENT: Normocephalic, atraumatic. NECK: No JVD. CARDIOVASCULAR: Systolic ejection murmur at the lower left sternal border. No S3 gallop. LUNGS: Clear bilaterally. EXTREMITIES: Mild edema. No cyanosis, no clubbing. Calves are nontender to palpation. GASTROINTESTINAL: Abdomen is soft, nontender and nondistended. Bowel sounds are positive. SKIN: No acute rash. NEUROLOGIC: Limited at the present time. IMPRESSION: 1. Gastrointestinal bleeding. 2. Portal hypertension. 3. Severe anemia. 4. Chronic obstructive pulmonary disease. 5. Pulmonary hypertension. 6. [id number] cardiomyopathy. 7. End-stage renal disease. PLAN: The patient appears very comfortable this morning. She is not short of breath at rest. She does state to feeling much better overall. I did discuss the case with the night nurse at length. The night nurse stated that the patient had a very good night. On physical exam, the patient's lungs remain clear. Oxygen saturation on room air is 95%. The patient did undergo a cardiac catheterization with Dr. Mccullough yesterday. The pulmonary artery pressure was 30/10 with a mean pulmonary artery pressure of 15 mmHg. The pulmonary capillary wedge pressure was approximately 10 mmHg. Nonischemic cardiomyopathy was also noted. I will discuss the above with Dr. Mccullough this morning. The above pulmonary artery pressure is not consistent with the right ventricular systolic pressure (shown previously by echocardiogram). One reason for this might be that the patient was on milrinone at the time of the cardiac catheterization. Milrinone can certainly decrease the pulmonary artery pressure. Again, I will discuss this issue with Dr. Mccullough this morning. Clinically, the patient has improved significantly. GI evaluation is ongoing. I will discuss the above with the entire ICU team in the next few moments. I will also discuss the above with Dr. Gomez later this morning. David Painting MD [facility] # [id number] [place]
[2017-06-27 07:49] LABS: ALB/GLOB RATIO 1.1 (1.1-1.8); BILIRUBIN,TOTAL 1.2 mg/dL (0.2-1.3); CALCIUM 6.7 mg/dL (8.4-10.5); TOTAL PROTEIN 4.3 g/dL (5.8-8.3)
--- NOTE | 2017-06-27 09:01 | PN ---
DATE: 06/26/2017 SUBJECTIVE: The patient is seen lying in bed in the ICU. She appears very ashen. She is arousable. She is in a lot of pain from her right hip. She is just coming back from cardiac catheterization. She denies any abdominal pain at present. She denies any nausea, vomiting. She denies any chest tightness. PHYSICAL EXAMINATION: GENERAL: Middle-aged lady lying in bed in the ICU, appears very weak and pale. VITAL SIGNS: Blood pressure 126/54, heart rate 93, respiratory rate 18, temperature 98.7. HEENT: Normocephalic, atraumatic. NECK: Supple, no JVD. LUNGS: Bilateral equal entry, bilateral equal expansion, no rales. CARDIAC: S1 and S2, regular rate and rhythm. No murmur, no rub. ABDOMEN: Soft, nondistended, nontender, bowel sounds present. EXTREMITIES: No lower extremity edema. INTAKE AND OUTPUT: 325/200. LABORATORY DATA: WBC 7.3, hemoglobin 8.6, hematocrit 25.6, platelets 85. Sodium 132, potassium 3.5, chloride 96, CO2 of 32, BUN 23, creatinine 3.6, glucose 149, calcium 7.1, phosphorus not checked, total bili 1.3, AST 37, ALT 39, albumin 2.2, corrected calcium is 9.0. CURRENT MEDICATIONS: Dilaudid, octreotide, milrinone, Protonix,Renagel, Sensipar 30 mg, Ultram, and Zofran. ASSESSMENT AND PLAN: 1. Severe life-threatening gastrointestinal bleed. 2. Severe anemia. 3. End-stage renal disease Mansi Rose MD
--- NOTE | 2017-06-27 10:35 | CP.CCUPN ---
<Kai Garcia - Last Filed: 06/27/17 10:36> CCU Subjective - Physician Review Subjective (Free Text): Critical care progress note - Scotty Radha PGY2 Patient seen and examined at bedside this morning. Overnight, patient reportedly had one episode of melanotic stool. Otherwise, no acute issues or complaints reported. Hemodynamically stable overnight and this morning as well. Denies chest pain, palpitations, SOB. Discussed plan for hemodialysis, echocardiogram and repeat endoscopy today. CCU Objective - Vital Signs / Intake & Output Vital Signs (Last 4 hours): Vital Signs Pulse Resp BP Pulse Ox 06/27/17 09:01 85 30 H 120/57 L 96 06/27/17 09:00 86 18 94 L 06/27/17 08:00 93 H 24 132/54 L 96 06/27/17 07:11 79 127/55 L 97 06/27/17 07:00 83 22 125/62 94 L Intake and Output (Last 8hrs): Intake & Output 06/26/17 06/27/17 06/27/17 22:59 06:59 14:59 Intake Total 252.5 Balance 252.5 Intake: IV 252.5 - Physical Exam Head: Positive for: Atraumatic, Normocephalic Pupils: Positive for: PERRL Extroacular Muscles: Positive for: EOMI Conjunctiva: Negative for: Icteric Ears: Positive for: Normal. Negative for: Erythema, TM Bulging, Fluid Mouth: Positive for: Moist Mucous Membranes Pharnyx: Positive for: Normal. Negative for: ERYTHEMA, EXUDATE, TONSILS ENLARGED, Peritonsilar Swelling, Uvular Deviation, Muffled/Hoarse Voice, Strider , Soft Palate/Uvular Edema Nose (External): Positive for: Atraumatic Nose (Internal): Positive for: Normal Inspection Neck: Positive for: Normal Range of Motion Respiratory/Chest: Positive for: Clear to Auscultation, Good Air Exchange. Negative for: Respiratory Distress, Accessory Muscle Use Cardiovascular: Positive for: Regular Rate and Rhythm, Normal S1, S2. Negative for: Murmurs, Rub, Gallop Abdomen: Positive for: Normal Bowel Sounds. Negative for: Tenderness, Distention, Peritoneal Signs Back: Positive for: Normal Inspection Upper Extremity: Positive for: Capillary Refill < 2s, Other (good thrill on L arm AVF fistula). Negative for: Cyanosis, Edema Lower Extremity: Positive for: Capillary Refill < 2 s. Negative for: Edema Neurological: Positive for: GCS=15, CN II-XII Intact, Speech Normal, Motor Func Grossly Intact, Normal Sensory Function Skin: Positive for: Warm, Dry. Negative for: Rashes Psychiatric: Positive for: Alert, Oriented x 3 - Medications Active Medications: Active Medications Generic Name Dose Route Start Last Admin Trade Name Freq PRN Reason Stop Dose Admin Cinacalcet 30 mg 06/22/17 17:00 06/26/17 17:35 Sensipar PO 30 mg DIN LEX Administration Hydromorphone HCl 0.5 mg 06/23/17 12:13 06/27/17 09:48 Dilaudid IM 0.5 mg Q4H PRN Administration Pain, moderate (4-7) Octreotide Acetate 1,250 mcg/ 252.5 mls @ 10.1 mls/hr 06/23/17 20:30 22:37 Dextrose IV 50 mcg/hr .Q24H LEX 10.1 mls/hr Protocol Administration 50 MCG/HR Calcium Gluconate 1,000 mg/ 110 mls @ 110 mls/hr 06/27/17 09:36 Sodium Chloride IVPB 06/27/17 10:35 ONCE ONE Ondansetron HCl 4 mg 06/22/17 01:14 06/22/17 01:29 Zofran Inj IVP 4 mg Q6H PRN Administration Nausea/Vomiting Pantoprazole Sodium 40 mg 06/24/17 10:00 06/27/17 09:40 Protonix Inj IVP 40 mg DAILY LEX Administration Sevelamer HCl 800 mg 06/22/17 08:00 06/27/17 08:39 Renagel PO Not Given WM LEX Tramadol HCl 50 mg 06/22/17 00:39 06/22/17 17:11 Ultram PO 50 mg Q6 PRN Administration Pain, moderate (4-7) - Patient Studies Lab Studies: Lab Studies 06/27/17 06/27/17 06/27/17 Range/Units 06:30 06:30 06:09 WBC 5.3 (4.5-11.0) 10^3/ul RBC 2.65 L (3.5-6.1) 10^6/uL Hgb 7.7 L (12.0-16.0) g/dL Hct 23.2 L (36.0-48.0) % MCV 87.5 (80.0-105.0) fl MCH 29.1 (25.0-35.0) pg MCHC 33.2 (31.0-37.0) g/dl RDW 15.3 H (11.5-14.5) % Plt Count 94 L (120.0-450.0) 10^3/uL MPV 9.9 (7.0-11.0) fl Gran % 87.8 H (50.0-68.0) % Lymph % (Auto) 6.5 L (22.0-35.0) % [place] % (Auto) 5.7 (1.0-6.0) % Eos % (Auto) 0.0 L (1.5-5.0) % Baso % (Auto) 0.0 (0.0-3.0) % Gran # 4.63 (1.4-6.5) Lymph # 0.3 L (1.2-3.4) [place] # 0.3 (0.1-0.6) Eos # 0.0 (0.0-0.7) Baso # 0.00 (0.0-2.0) K/mm3 Neutrophils % (Manual) (50.0-70.0) % Lymphocytes % (Manual) (22.0-35.0) % Monocytes % (Manual) (1.0-6.0) % Platelet Evaluation (NORMAL) Sodium 127 L (132-148) mmol/L Potassium 5.0 (3.6-5.0) mmol/L Chloride 92 L (98-107) mmol/L Carbon Dioxide 28 (21-33) mmol/L Anion Gap 12 (10-20) BUN 41 H (7-21) mg/dL Creatinine 5.1 H (0.7-1.2) mg/dl Est GFR ( Amer) 11 Est GFR (Non-Af Amer) 9 POC Glucose (mg/dL) 156 H (65-110) mg/dL Random Glucose 212 H (70-110) mg/dL Calcium 6.7 L* (8.4-10.5) mg/dL Total Bilirubin 1.2 (0.2-1.3) mg/dL AST 34 (14-36) U/L ALT 35 (7-56) U/L Alkaline Phosphatase 229 H (38-126) U/L Total Protein 4.3 L (5.8-8.3) g/dL Albumin 2.2 L (3.0-4.8) g/dL Globulin 2.1 gm/dL Albumin/Globulin Ratio 1.1 (1.1-1.8) 06/27/17 06/26/17 06/26/17 Range/Units 00:19 17:56 15:34 WBC 6.2 (4.5-11.0) 10^3/ul RBC 2.99 L (3.5-6.1) 10^6/uL Hgb 8.7 L (12.0-16.0) g/dL Hct 26.4 L (36.0-48.0) % MCV 88.3 (80.0-105.0) fl MCH 29.1 (25.0-35.0) pg MCHC 33.0 (31.0-37.0) g/dl RDW 15.5 H (11.5-14.5) % Plt Count 99 L (120.0-450.0) 10^3/uL MPV 9.8 (7.0-11.0) fl Gran % 96.5 H (50.0-68.0) % Lymph % (Auto) 2.6 L (22.0-35.0) % [place] % (Auto) 0.6 L (1.0-6.0) % Eos % (Auto) 0.3 L (1.5-5.0) % Baso % (Auto) 0.0 (0.0-3.0) % Gran # 5.94 (1.4-6.5) Lymph # 0.2 L (1.2-3.4) [place] # 0.0 L (0.1-0.6) Eos # 0.0 (0.0-0.7) Baso # 0.00 (0.0-2.0) K/mm3 Neutrophils % (Manual) 97 H (50.0-70.0) % Lymphocytes % (Manual) 3 L (22.0-35.0) % Monocytes % (Manual) 0 L (1.0-6.0) % Platelet Evaluation Low (NORMAL) Sodium (132-148) mmol/L Potassium (3.6-5.0) mmol/L Chloride (98-107) mmol/L Carbon Dioxide (21-33) mmol/L Anion Gap (10-20) BUN (7-21) mg/dL Creatinine (0.7-1.2) mg/dl Est GFR ( Amer) Est GFR (Non-Af Amer) POC Glucose (mg/dL) 209 H 232 H (65-110) mg/dL Random Glucose (70-110) mg/dL Calcium (8.4-10.5) mg/dL Total Bilirubin (0.2-1.3) mg/dL AST (14-36) U/L ALT (7-56) U/L Alkaline Phosphatase (38-126) U/L Total Protein (5.8-8.3) g/dL Albumin (3.0-4.8) g/dL Globulin gm/dL Albumin/Globulin Ratio (1.1-1.8) 06/26/ Range/Units 12:07 WBC (4.5-11.0) 10^3/ul RBC (3.5-6.1) 10^6/uL Hgb (12.0-16.0) g/dL Hct (36.0-48.0) % MCV (80.0-105.0) fl MCH (25.0-35.0) pg MCHC (31.0-37.0) g/dl RDW (11.5-14.5) % Plt Count (120.0-450.0) 10^3/uL MPV (7.0-11.0) fl Gran % (50.0-68.0) % Lymph % (Auto) (22.0-35.0) % [place] % (Auto) (1.0-6.0) % Eos % (Auto) (1.5-5.0) % Baso % (Auto) (0.0-3.0) % Gran # (1.4-6.5) Lymph # (1.2-3.4) [place] # (0.1-0.6) Eos # (0.0-0.7) Baso # (0.0-2.0) K/mm3 Neutrophils % (Manual) (50.0-70.0) % Lymphocytes % (Manual) (22.0-35.0) % Monocytes % (Manual) (1.0-6.0) % Platelet Evaluation (NORMAL) Sodium (132-148) mmol/L Potassium (3.6-5.0) mmol/L Chloride (98-107) mmol/L Carbon Dioxide (21-33) mmol/L Anion Gap (10-20) BUN (7-21) mg/dL Creatinine (0.7-1.2) mg/dl Est GFR ( Amer) Est GFR (Non-Af Amer) POC Glucose (mg/dL) 150 H (65-110) mg/dL Random Glucose (70-110) mg/dL Calcium (8.4-10.5) mg/dL Total Bilirubin (0.2-1.3) mg/dL AST (14-36) U/L ALT (7-56) U/L Alkaline Phosphatase (38-126) U/L Total Protein (5.8-8.3) g/dL Albumin (3.0-4.8) g/dL Globulin gm/dL Albumin/Globulin Ratio (1.1-1.8) Laboratory Results - last 24 hr 06/26/17 06/26/17 06/26/17 12:07 15:34 17:56 WBC 6.2 RBC 2.99 L Hgb 8.7 L Hct 26.4 L MCV 88.3 MCH 29.1 MCHC 33.0 RDW 15.5 H Plt Count 99 L MPV 9.8 Gran % 96.5 H Lymph % (Auto) 2.6 L [place] % (Auto) 0.6 L Eos % (Auto) 0.3 L Baso % (Auto) 0.0 Gran # 5.94 Lymph # 0.2 L [place] # 0.0 L Eos # 0.0 Baso # 0.00 Neutrophils % (Manual) 97 H Lymphocytes % (Manual) 3 L Monocytes % (Manual) 0 L Platelet Evaluation Low Sodium Potassium Chloride Carbon Dioxide Anion Gap BUN Creatinine Est GFR ( Amer) Est GFR (Non-Af Amer) POC Glucose (mg/dL) 150 H 232 H Random Glucose Calcium Total Bilirubin AST ALT Alkaline Phosphatase Total Protein Albumin Globulin Albumin/Globulin Ratio 06/27/17 06/27/17 06/27/17 00:19 06:09 06:30 WBC 5.3 RBC 2.65 L Hgb 7.7 L Hct 23.2 L MCV 87.5 MCH 29.1 MCHC 33.2 RDW 15.3 H Plt Count 94 L MPV 9.9 Gran % 87.8 H Lymph % (Auto) 6.5 L [place] % (Auto) 5.7 Eos % (Auto) 0.0 L Baso % (Auto) 0.0 Gran # 4.63 Lymph # 0.3 L [place] # 0.3 Eos # 0.0 Baso # 0.00 Neutrophils % (Manual) Lymphocytes % (Manual) Monocytes % (Manual) Platelet Evaluation Sodium Potassium Chloride Carbon Dioxide Anion Gap BUN Creatinine Est GFR ( Amer) Est GFR (Non-Af Amer) POC Glucose (mg/dL) 209 H 156 H Random Glucose Calcium Total Bilirubin AST ALT Alkaline Phosphatase Total Protein Albumin Globulin Albumin/Globulin Ratio 06/27/17 06:30 WBC RBC Hgb Hct MCV MCH MCHC RDW Plt Count MPV Gran % Lymph % (Auto) [place] % (Auto) Eos % (Auto) Baso % (Auto) Gran # Lymph # [place] # Eos # Baso # Neutrophils % (Manual) Lymphocytes % (Manual) Monocytes % (Manual) Platelet Evaluation Sodium 127 L Potassium 5.0 Chloride 92 L Carbon Dioxide 28 Anion Gap 12 BUN 41 H Creatinine 5.1 H Est GFR ( Amer) 11 Est GFR (Non-Af Amer) 9 POC Glucose (mg/dL) Random Glucose 212 H Calcium 6.7 L* Total Bilirubin 1.2 AST 34 ALT 35 Alkaline Phosphatase 229 H Total Protein 4.3 L Albumin 2.2 L Globulin 2.1 Albumin/Globulin Ratio 1.1 Fingerstick Blood Sugar Results: 209 Critical Care Progress Note - Nutrition Nutrition: Nutrition Category Date Time Status Liquid Diet [DIET] Diets 06/24/17 Dinner Ordered Assessment/Plan - Assessment and Plan (Free Text) Plan: 56yo female with history of ESRD on hemodialysis(Mon/Mon/Mon), chronic anemia, HTN, COPD, GERD, chronic pancreatitis and brain aneurysm who presented to [facility] with c/o nausea, vomiting and melanotic stools on 06/21. Found to have upper GI bleed. Neuro: -Awake, alert, oriented x3; answering questions appropriately Cardio: -Echo shows LVEF 40-45%, LV function moderately impaired, septal hypokinesis, mild AR, mild-mod MR, severe TR and severe pulm HTN RVSP 79 -Currently hemodynamically stable; maintain MAP > 65 -Right heart catherization results reviewed and discussed with cardiology; No evidence of pulmonary or portal hypertension -Repeat echocardiogram pending today -Cardio following; Dr. Mccullough Pulm: -Protecting airway -Maintain O2 Sat>92% -Pulm following; Dr. Painting GI: -Patient s/p EGD which was notable for what appeared to be portal hypertensive gastropathy with oozing bleed -Continue protonix 40mg IVP qd per GI recommendations -Patient presently pending repeat endoscopy today -Continue with octreotide gtt -IR Dr. Melvin consulted for possible embolization; recommendations reviewed -Advance diet as tolerated -GI Following; Dr. Rosado Endocrine: -Maintain euglycemia Nephro: -Monitoring and repleting electrolytes as indicated -ESRD on HD (Mon/Mon/Mon) -Continue cinacalcet and sevelamer -Nephro following; Dr. Mathews Heme: -No overt signs of bleeding at this time -Presently s/p a total of 8 units pRBC transfusion with last unit at 6pm on -Hgb dropped to 7.7 from 8.7 and is scheduled to be transfused 1 unit PRBC during dialysis today -DVT prophylaxis with SCD's ID: -Cdiff negative -afebrile, no leukocytosis -No signs of infection at this time GI/DVT ppx: octreotide gtt/protonix/SCDs Patient seen and case discussed/reviewed with attending, Dr. Mcelroy <Kosta Mcelroy - Last Filed: 06/27/17 10:56> CCU Objective - Vital Signs / Intake & Output Vital Signs (Last 4 hours): Vital Signs Pulse Resp BP Pulse Ox 06/27/17 09:01 85 30 H 120/57 L 96 06/27/17 09:00 86 18 94 L 06/27/17 08:00 93 H 24 132/54 L 96 06/27/17 07:11 79 127/55 L 97 06/27/17 07:00 83 22 125/62 94 L Intake and Output (Last 8hrs): Intake & Output 06/26/17 06/27/17 06/27/17 22:59 06:59 14:59 Intake Total 252.5 Balance 252.5 Intake: IV 252.5 - Medications Active Medications: Active Medications Generic Name Dose Route Start Last Admin Trade Name Freq PRN Reason Stop Dose Admin Cinacalcet 30 mg 06/22/17 17:00 06/26/17 17:35 Sensipar PO 30 mg DIN LEX Administration Hydromorphone HCl 0.5 mg 06/23/17 12:13 06/27/17 09:48 Dilaudid IM 0.5 mg Q4H PRN Administration Pain, moderate (4-7) Octreotide Acetate 1,250 mcg/ 252.5 mls @ 10.1 mls/hr 06/23/17 20:30 22:37 Dextrose IV 50 mcg/hr .Q24H LEX 10.1 mls/hr Protocol Administration 50 MCG/HR Ondansetron HCl 4 mg 06/22/17 01:14 06/22/17 01:29 Zofran Inj IVP 4 mg Q6H PRN Administration Nausea/Vomiting Pantoprazole Sodium 40 mg 06/24/17 10:00 06/27/17 09:40 Protonix Inj IVP 40 mg DAILY LEX Administration Sevelamer HCl 800 mg 06/22/17 08:00 06/27/17 08:39 Renagel PO Not Given WM LEX Tramadol HCl 50 mg 06/22/17 00:39 06/22/17 17:11 Ultram PO 50 mg Q6 PRN Administration Pain, moderate (4-7) - Patient Studies Lab Studies: Lab Studies 06/27/17 06/27/17 06/27/17 Range/Units 06:30 06:30 06:09 WBC 5.3 (4.5-11.0) 10^3/ul RBC 2.65 L (3.5-6.1) 10^6/uL Hgb 7.7 L (12.0-16.0) g/dL Hct 23.2 L (36.0-48.0) % MCV 87.5 (80.0-105.0) fl MCH 29.1 (25.0-35.0) pg MCHC 33.2 (31.0-37.0) g/dl RDW 15.3 H (11.5-14.5) % Plt Count 94 L (120.0-450.0) 10^3/uL MPV 9.9 (7.0-11.0) fl Gran % 87.8 H (50.0-68.0) % Lymph % (Auto) 6.5 L (22.0-35.0) % [place] % (Auto) 5.7 (1.0-6.0) % Eos % (Auto) 0.0 L (1.5-5.0) % Baso % (Auto) 0.0 (0.0-3.0) % Gran # 4.63 (1.4-6.5) Lymph # 0.3 L (1.2-3.4) [place] # 0.3 (0.1-0.6) Eos # 0.0 (0.0-0.7) Baso # 0.00 (0.0-2.0) K/mm3 Neutrophils % (Manual) (50.0-70.0) % Lymphocytes % (Manual) (22.0-35.0) % Monocytes % (Manual) (1.0-6.0) % Platelet Evaluation (NORMAL) Sodium 127 L (132-148) mmol/L Potassium 5.0 (3.6-5.0) mmol/L Chloride 92 L (98-107) mmol/L Carbon Dioxide 28 (21-33) mmol/L Anion Gap 12 (10-20) BUN 41 H (7-21) mg/dL Creatinine 5.1 H (0.7-1.2) mg/dl Est GFR ( Amer) 11 Est GFR (Non-Af Amer) 9 POC Glucose (mg/dL) 156 H (65-110) mg/dL Random Glucose 212 H (70-110) mg/dL Calcium 6.7 L* (8.4-10.5) mg/dL Total Bilirubin 1.2 (0.2-1.3) mg/dL AST 34 (14-36) U/L ALT 35 (7-56) U/L Alkaline Phosphatase 229 H (38-126) U/L Total Protein 4.3 L (5.8-8.3) g/dL Albumin 2.2 L (3.0-4.8) g/dL Globulin 2.1 gm/dL Albumin/Globulin Ratio 1.1 (1.1-1.8) 06/27/17 06/26/17 06/26/17 Range/Units 00:19 17:56 15:34 WBC 6.2 (4.5-11.0) 10^3/ul RBC 2.99 L (3.5-6.1) 10^6/uL Hgb 8.7 L (12.0-16.0) g/dL Hct 26.4 L (36.0-48.0) % MCV 88.3 (80.0-105.0) fl MCH 29.1 (25.0-35.0) pg MCHC 33.0 (31.0-37.0) g/dl RDW 15.5 H (11.5-14.5) % Plt Count 99 L (120.0-450.0) 10^3/uL MPV 9.8 (7.0-11.0) fl Gran % 96.5 H (50.0-68.0) % Lymph % (Auto) 2.6 L (22.0-35.0) % [place] % (Auto) 0.6 L (1.0-6.0) % Eos % (Auto) 0.3 L (1.5-5.0) % Baso % (Auto) 0.0 (0.0-3.0) % Gran # 5.94 (1.4-6.5) Lymph # 0.2 L (1.2-3.4) [place] # 0.0 L (0.1-0.6) Eos # 0.0 (0.0-0.7) Baso # 0.00 (0.0-2.0) K/mm3 Neutrophils % (Manual) 97 H (50.0-70.0) % Lymphocytes % (Manual) 3 L (22.0-35.0) % Monocytes % (Manual) 0 L (1.0-6.0) % Platelet Evaluation Low (NORMAL) Sodium (132-148) mmol/L Potassium (3.6-5.0) mmol/L Chloride (98-107) mmol/L Carbon Dioxide (21-33) mmol/L Anion Gap (10-20) BUN (7-21) mg/dL Creatinine (0.7-1.2) mg/dl Est GFR ( Amer) Est GFR (Non-Af Amer) POC Glucose (mg/dL) 209 H 232 H (65-110) mg/dL Random Glucose (70-110) mg/dL Calcium (8.4-10.5) mg/dL Total Bilirubin (0.2-1.3) mg/dL AST (14-36) U/L ALT (7-56) U/L Alkaline Phosphatase (38-126) U/L Total Protein (5.8-8.3) g/dL Albumin (3.0-4.8) g/dL Globulin gm/dL Albumin/Globulin Ratio (1.1-1.8) 06/26/17 Range/Units 12:07 WBC (4.5-11.0) 10^3/ul RBC (3.5-6.1) 10^6/uL Hgb (12.0-16.0) g/dL Hct (36.0-48.0) % MCV (80.0-105.0) fl MCH (25.0-35.0) pg MCHC (31.0-37.0) g/dl RDW (11.5-14.5) % Plt Count (120.0-450.0) 10^3/uL MPV (7.0-11.0) fl Gran % (50.0-68.0) % Lymph % (Auto) (22.0-35.0) % [place] % (Auto) (1.0-6.0) % Eos % (Auto) (1.5-5.0) % Baso % (Auto) (0.0-3.0) % Gran # (1.4-6.5) Lymph # (1.2-3.4) [place] # (0.1-0.6) Eos # (0.0-0.7) Baso # (0.0-2.0) K/mm3 Neutrophils % (Manual) (50.0-70.0) % Lymphocytes % (Manual) (22.0-35.0) % Monocytes % (Manual) (1.0-6.0) % Platelet Evaluation (NORMAL) Sodium (132-148) mmol/L Potassium (3.6-5.0) mmol/L Chloride (98-107) mmol/L Carbon Dioxide (21-33) mmol/L Anion Gap (10-20) BUN (7-21) mg/dL Creatinine (0.7-1.2) mg/dl Est GFR ( Amer) Est GFR (Non-Af Amer) POC Glucose (mg/dL) 150 H (65-110) mg/dL Random Glucose (70-110) mg/dL Calcium (8.4-10.5) mg/dL Total Bilirubin (0.2-1.3) mg/dL AST (14-36) U/L ALT (7-56) U/L Alkaline Phosphatase (38-126) U/L Total Protein (5.8-8.3) g/dL Albumin (3.0-4.8) g/dL Globulin gm/dL Albumin/Globulin Ratio (1.1-1.8) Laboratory Results - last 24 hr 06/26/17 06/26/17 06/26/17 12:07 15:34 17:56 WBC 6.2 RBC 2.99 L Hgb 8.7 L Hct 26.4 L MCV 88.3 MCH 29.1 MCHC 33.0 RDW 15.5 H Plt Count 99 L MPV 9.8 Gran % 96.5 H Lymph % (Auto) 2.6 L [place] % (Auto) 0.6 L Eos % (Auto) 0.3 L Baso % (Auto) 0.0 Gran # 5.94 Lymph # 0.2 L [place] # 0.0 L Eos # 0.0 Baso # 0.00 Neutrophils % (Manual) 97 H Lymphocytes % (Manual) 3 L Monocytes % (Manual) 0 L Platelet Evaluation Low Sodium Potassium Chloride Carbon Dioxide Anion Gap BUN Creatinine Est GFR ( Amer) Est GFR (Non-Af Amer) POC Glucose (mg/dL) 150 H 232 H Random Glucose Calcium Total Bilirubin AST ALT Alkaline Phosphatase Total Protein Albumin Globulin Albumin/Globulin Ratio 06/27/17 06/27/17 06/27/17 00:19 06:09 06:30 WBC 5.3 RBC 2.65 L Hgb 7.7 L Hct 23.2 L MCV 87.5 MCH 29.1 MCHC 33.2 RDW 15.3 H Plt Count 94 L MPV 9.9 Gran % 87.8 H Lymph % (Auto) 6.5 L [place] % (Auto) 5.7 Eos % (Auto) 0.0 L Baso % (Auto) 0.0 Gran # 4.63 Lymph # 0.3 L [place] # 0.3 Eos # 0.0 Baso # 0.00 Neutrophils % (Manual) Lymphocytes % (Manual) Monocytes % (Manual) Platelet Evaluation Sodium Potassium Chloride Carbon Dioxide Anion Gap BUN Creatinine Est GFR ( Amer) Est GFR (Non-Af Amer) POC Glucose (mg/dL) 209 H 156 H Random Glucose Calcium Total Bilirubin AST ALT Alkaline Phosphatase Total Protein Albumin Globulin Albumin/Globulin Ratio 06/27/17 06:30 WBC RBC Hgb Hct MCV MCH MCHC RDW Plt Count MPV Gran % Lymph % (Auto) [place] % (Auto) Eos % (Auto) Baso % (Auto) Gran # Lymph # [place] # Eos # Baso # Neutrophils % (Manual) Lymphocytes % (Manual) Monocytes % (Manual) Platelet Evaluation Sodium 127 L Potassium 5.0 Chloride 92 L Carbon Dioxide 28 Anion Gap 12 BUN 41 H Creatinine 5.1 H Est GFR ( Amer) 11 Est GFR (Non-Af Amer) 9 POC Glucose (mg/dL) Random Glucose 212 H Calcium 6.7 L* Total Bilirubin 1.2 AST 34 ALT 35 Alkaline Phosphatase 229 H Total Protein 4.3 L Albumin 2.2 L Globulin 2.1 Albumin/Globulin Ratio 1.1 Critical Care Progress Note - Nutrition Nutrition: Nutrition Category Date Time Status Liquid Diet [DIET] Diets 06/24/17 Dinner Ordered Assessment/Plan - Assessment and Plan (Free Text) Plan: Patient seen and examined, agree with residents note with following additions/ exception: 56yo female with history of ESRD on hemodialysis(Mon/Wed/Fri), chronic anemia, HTN, COPD, GERD, chronic pancreatitis and brain aneurysm who was amidtted for UGIB. Currently afebrile, HD stable, comfortable. Lab work today noted, with drop in HH to 7.7. Transfuse 1u PRBC today with HD, HD today, ECHO after HD, replete Calcium. Repeat HH after transfusion. Possible EGD today. GI ppx, DVT ppx, SCDs.
--- NOTE | 2017-06-27 10:45 | PN ---
DATE: SUBJECTIVE: She is comfortable in bed, in no acute distress. Hemoglobin declined to 7.7 g/dL. She underwent EGD, which showed congestive gastropathy. She has end-stage renal disease and currently on hemodialysis. She underwent cardiac catheterization yesterday. Endoscopy also showed mild oozing of blood in the fundus likely related to portal hypertension. LABORATORY DATA: White count 5.3, hemoglobin 7.7, hematocrit 23, and platelet count 94. Sodium 137, potassium 5, calcium 6.7, and creatinine 5.1. MEDICATIONS: Reviewed. PHYSICAL EXAMINATION: GENERAL: Comfortable in bed, in no acute distress. VITAL SIGNS: Temperature 98.7, heart rate 85 per minute, blood pressure 120/70, and oxygen saturation 98% on room air. HEENT: Pallor positive. NECK: Supple. CHEST: Air entry present, equal, bilateral. No added sounds. CARDIOVASCULAR: S1 and S2 normal. No murmur and no gallop. ABDOMEN: Soft and nontender. No hepatosplenomegaly. EXTREMITIES: No edema. PRODUCT DEMONSTRATOR: Alert and oriented. No focal sensory or motor deficit. ASSESSMENT: 1. Anemia. 2. Thrombocytopenia. 3. Gastrointestinal bleed. 4. Gastric enteropathy, congestive enteropathy. 5. Coronary artery disease. 6. End-stage renal disease, on hemodialysis. PLAN: GI evaluated for bleed, possible source of bleed found in fundus. Hemoglobin is 7.7. I would recommend transfuse as needed. Thrombocytopenia is stable, likely related to uremia and end-stage renal disease. She is currently on hemodialysis and hemodynamically stable. We will continue to follow. Chelsy Dominguez MD
[2017-06-27] MEDS ORDERED: Desmopressin 20 MCG in Sodium Chloride 0.9% 50 ML IV ONE (11:25)
[2017-06-27] MEDS ORDERED: Etomidate 20 mg/10ml Inj IV ONE (15:06)
[2017-06-27] MEDS ORDERED: Midazolam 2 MG/2 ML VIAL ONE (15:46)
[2017-06-27] MEDS ORDERED: Propofol 10 mg/ml Inj (20 ML) ONE ×2 (15:48→16:13)
--- NOTE | 2017-06-27 18:50 | PN ---
SUBJECTIVE: The patient is currently seen having just completed to dialysis. She is in ICU bed 2. She is awaiting transfer for endoscopy. She is status post a cardiac catheterization which showed normal coronary arteries. No pulmonary hypertension. The patient had an episode of melena last night. She received 1 unit of packed cells on dialysis today. She has received a total of 8 units of packed red blood cells to date. The patient's hemoglobin level was 7.7 prior to the transfusion. The patient remains comfortable in the ICU. MEDICATIONS: Medication list reviewed. The patient is currently on Dilaudid, octreotide, Protonix, Renagel, Sensipar, Ultram, and Zofran p.r.n. OBJECTIVE: INTAKE AND OUTPUT: Intake charted 253 mL, output not charted. VITAL SIGNS: Blood pressure presently is 142/64, pulse is 85, temperature is 98.7, respiratory rate is 16, pulse ox is 98%. HEENT: Shows her be normocephalic, atraumatic. Conjunctivae are pale. Sclerae are nonicteric. NECK: Supple. No neck vein distention. CHEST: Clear to auscultation and percussion. No rales or rhonchi or wheezing. CARDIOVASCULAR: Shows a regular rate and rhythm with TR/MR/AI. ABDOMEN: Soft. Bowel sounds normal. No rebound. No guarding. No masses. EXTREMITIES: Show left upper extremity AV fistula. No lower extremity edema. LABORATORY DATA AND IMAGING: CBC: Today, white blood cell count 5.3, hemoglobin 7.7 with a platelet count of 94,000. Chemistries: Sodium today 127, potassium 5.0, BUN 41 with a creatinine of 5.1, glucose is 212, calcium is 6.7, corrected for an albumin of 2.2 was 8.1. The patient is receiving calcium intravenously. A bilirubin was 1.2. Liver enzymes were normal. Elevated alkaline phosphatase was 229. ASSESSMENT: 1. Severe life-threatening upper GI bleed. The patient was felt to have diffuse gastritis thought to be secondary to portal hypertensive gastropathy; however, portal pressures appeared to be normal. She is status post a cardiac catheterization which showed normal right ventricular pressures. The patient was initially being evaluated for possible embolization. She is scheduled to go down for an upper endoscopy later today, and I will await further GI recommendations. 2. History of end-stage renal disease. The patient will continue three times a week dialysis, because of the holiday schedule, she received dialysis today. Agree with transfusing the patient on dialysis. 3. Hypocalcemia. Sensipar will be placed on hold in light of her corrected calcium that is low. Agree with calcium gluconate rider. 4. History of hypertension. The patient remains normotensive in the setting of her GI bleed and presently is not receiving any blood pressure medication. 5. Past history of pericardial effusion. Status post pericardial window. 6. History of anemia. This is secondary to chronic kidney disease secondary to GI bleeding. The patient will continue receive transfusions to keep her hemoglobin in the 9 to 10 range. She will also receive a maximum dose of Aranesp with dialysis as per protocol. 7. History of pulmonary hypertension seen on echocardiogram but not seen on catheterization. 8. History of chronic headaches appears to be stable. 9. History of chronic abdominal pain appears to be stable. PLAN: 1. Discussed with staff in the ICU. The patient will surely go for her upper endoscopy. I will await GI recommendations. 2. Continue Sandostatin at this time. 3. Keep hemoglobin in the 9 to 10 range and transfuse accordingly, the safest of transfuse on dialysis. 4. We can also reevaluate for possible embolization if she continues to have diffuse gastritis with bleeding. Greater than 35 minutes spent the care of this patient. Deon Mathews MD
--- NOTE | 2017-06-27 19:13 | CARD ---
APPROVED REPORT EXAM: LIMITED Two-dimensional and M-mode echocardiogram with Doppler and color Doppler. 2D DIMENSIONS Left Atrium (2D)5.2 (1.6-4.0cm)IVSd1.5 (0.7-1.1cm) LVDd6.0 (3.9-5.9cm)PWd1.6 (0.7-1.1cm) LVDs4.5 (2.5-4.0cm)FS (%) 25.2 % LVEF (%)49.0 (>50%) Mitral Valve E/A ratio0.0 TDI E/Lateral E'0.0E/Medial E'0.0 Tricuspid Valve TR Peak [id number] [id number] Peak Gr.50mmHg [id number] LEFT VENTRICLE The left ventricle is normal size. There is mild concentric left ventricular hypertrophy. The systolic function is mildly impaired.EF-45-50% There is normal LV segmental wall motion. N/A No left ventricle thrombus noted on this study. There is no ventricular septal defect visualized. There is no left ventricular aneurysm. There is no mass noted in the left ventricle. RIGHT VENTRICLE The right ventricle is borderline dilated. There is normal right ventricular wall thickness. The right ventricular systolic function is normal. ATRIA The left atrium is mildly dilated. The right atrium is mildly dilated. The interatrial septum is intact with no evidence for an atrial septal defect. AORTIC VALVE The aortic valve is thickened but opens well. There is trace aortic regurgitation. There is no aortic valvular stenosis. There is no aortic valvular vegetation. MITRAL VALVE The mitral valve is thickened but opens well. Mitral regurgitation is mild to moderate. There is no mitral valve stenosis. There is no evidence of mitral valve prolapse. TRICUSPID VALVE The tricuspid valve leaflets are thickened , but open well. There is moderate tricuspid regurgitation.RVSP-60 mmof hg. There is no tricuspid valve stenosis. There is no tricuspid valve prolapse or vegetation. PULMONIC VALVE The pulmonic valve is not well visualized. GREAT VESSELS The aortic root is normal in size. The ascending aorta is normal in size. The pulmonary artery is normal. The IVC was not visualized. PERICARDIAL EFFUSION There is no pleural effusion. There is no pericardial effusion. <Conclusion> The left ventricle is normal size. The systolic function is mildly impaired.EF-45-50% There is trace aortic regurgitation. Mitral regurgitation is mild to moderate. There is moderate tricuspid regurgitation.RVSP-60 mmof hg. This is Some what limited ,No M Mode, and F/u Study to Assess TR/RVSP, Off Primacor more than 24 hours and immediate post Dialysis. The present study showed Moderate Pulmonary HTN. Right heart cath a day before showed upper limit normal PA pressurre, but pt. was on Milrinone (primacor) just before cath, that shows pt's Pulmonary HTN is reactive and sensitive to Primacor treatment.
[2017-06-27 19:37] LABS: MEAN CELL VOLUME 88.5 fl (80.0-105.0); MEAN CORPUSCULAR HEMOGLOBIN 30.1 pg (25.0-35.0); MEAN PLATELET VOLUME 9.1 fl (7.0-11.0); RED CELL DISTRIBUTION WIDTH 15.2 % (11.5-14.5); WHITE BLOOD COUNT 7.7 10^3/ul (4.5-11.0)
[2017-06-27 19:40] LABS: HEMATOCRIT 23.8 % (36.0-48.0)
[2017-06-27] MEDS: Octreotide 1,250 MCG in Dextrose 5% In Water 250 ML IV SCH (20:30)
--- NOTE | 2017-06-27 22:28 | PN ---
DATE: SUBJECTIVE: The patient is a 56-year-old, seen and examined. The patient states she had big bowel movement with melena. Her hemoglobin dropped. She is receiving blood transfusion and also getting dialysis and blood transfusion is being given during dialysis. There is a plan to have endoscopy after dialysis. PHYSICAL EXAMINATION GENERAL: She is awake, alert, oriented, and communicative. VITAL SIGNS: She is afebrile, pulse 80, respirations 20, and blood pressure 118/44. LUNGS: Bilateral fair airflow. No rhonchi or crackles. HEART: S1 and S2 audible. ABDOMEN: Soft and nontender. No rebound. No guarding. NEUROLOGIC: The patient is awake, alert, and oriented. Able to move all extremities. LABORATORY DATA: Her platelets is 110. Chemistry; sodium 127, potassium 5.0, chloride 92, CO2 of 28, BUN 41, creatinine 5.1 and blood sugar of 212. ASSESSMENT: 1. Upper gastrointestinal bleed. 2. Portal hypertension. 3. Status post cardiac catheterization seems to be within normal limits. 4. End-stage renal disease, on hemodialysis. 5. Blood loss anemia. PLAN: Discussed with Dr. Rosado. We did endoscopy, think these are the consequence of portal hypertension. We will monitor her H&H, if she continue to bleed, she might need gastric artery embolization. We will follow up with CBC and CMP in the a.m. Shawn Gomez MD
[2017-06-28 06:54] LABS: BASO # 0.03 K/mm3 (0.0-2.0); BASO % 0.3 % (0.0-3.0); EOS # 0.4 (0.0-0.7); EOS % 4.5 % (1.5-5.0); GRAN # 6.87 (1.4-6.5); GRAN % 78.9 % (50.0-68.0); LYMPH # 0.9 (1.2-3.4); LYMPH % 10.2 % (22.0-35.0); MEAN CORPUSCULAR HEMOGLOBIN 29.6 pg (25.0-35.0); MEAN CORPUSCULAR HGB CONC 32.9 g/dl (31.0-37.0); MEAN PLATELET VOLUME 9.8 fl (7.0-11.0); MONO # 0.5 (0.1-0.6); MONO % 6.1 % (1.0-6.0); RED CELL DISTRIBUTION WIDTH 15.5 % (11.5-14.5); WHITE BLOOD COUNT 8.7 10^3/ul (4.5-11.0)
[2017-06-28] MEDS: HYDROmorphone 1 mg/ml ISec IM PRN ×3 (07:01→19:48)
[2017-06-28 07:08] LABS: HEMATOCRIT 23.4 % (36.0-48.0)
[2017-06-28 07:10] LABS: ALB/GLOB RATIO 1.1 (1.1-1.8); BILIRUBIN,TOTAL 1.4 mg/dL (0.2-1.3); CALCIUM 7.1 mg/dL (8.4-10.5); POTASSIUM 3.5 mmol/L (3.6-5.0); TOTAL PROTEIN 4.1 g/dL (5.8-8.3)
--- NOTE | 2017-06-28 07:57 | PN ---
DATE: 06/28/2017(625am--715am) SUBJECTIVE: The patient appears comfortable this morning. She is not short of breath at rest. PHYSICAL EXAMINATION: VITAL SIGNS: Temperature is 98.4, pulse on the monitor is 81, respiratory rate 18, blood pressure 122/45. Oxygen saturation on room air is 97%. HEENT: Normocephalic, atraumatic. NECK: No JVD. CARDIOVASCULAR: Systolic ejection murmur at the lower left sternal border. No S3 gallop. LUNGS: Clear bilaterally. EXTREMITIES: Mild edema. No cyanosis, no clubbing. Calves are nontender to palpation. GASTROINTESTINAL: Abdomen is soft, nontender and nondistended. Bowel sounds are positive. SKIN: No acute rash. NEUROLOGIC: Limited at the present time. PERTINENT LABORATORY DATA: Echocardiogram was repeated yesterday. The patient was status post dialysis and off Primacor. Right ventricular systolic pressure is 60 mmHg. There is moderate tricuspid regurgitation. The systolic function is mildly impaired. IMPRESSION: 1. Gastrointestinal bleeding. 2. Portal hypertension. 3. Severe anemia. 4. Chronic obstructive pulmonary disease. 5. Pulmonary hypertension. 6. Xufb-bc-ycygexei cardiomyopathy. 7. End-stage renal disease. PLAN: The patient appears comfortable this morning. She is not short of breath at rest. She does state to feeling much better overall. I did discuss the case with the night nurse at length. The night nurse stated that the patient had a very good night. On physical exam, the patient's lungs remain clear. Oxygen saturation on room air is now 97%. I did discuss the case with Dr. Mccullough (Cardiology) at length yesterday. The echocardiogram was repeated and noted above. There is moderate pulmonary hypertension with moderate tricuspid regurgitation noted. Hopefully, the data accumulated-- during the admission-- will be enough for the patient to get her outpatient medication. Repeating the echocardiogram was certainly helpful, and not only documented her moderate pulmonary hypertension, but also reinforces the point that the patient is amenable to pulmonary vasodilators. The patient's clinical status is significantly improved-compared to the initial presentation. Inputs by Renal and GI are noted. I will discuss the above with the entire ICU team in the next few moments. I will discuss the above with the attending physician later this morning. David Painting MD [facility] # [id number] MESFIN
--- NOTE | 2017-06-28 08:15 | PN ---
DATE: 06/27/2017 REASON FOR CONSULTATION: GI bleed; anemia; moderate mitral regurgitation, tricuspid regurgitation, status post cardiac catheterization; portal hypertension; pulmonary hypertension, normal coronary. SUBJECTIVE: The patient denies any chest pain or shortness of breath. Complained of abdominal pain. OBJECTIVE: GENERAL: Not in apparent distress. VITAL SIGNS: Temperature afebrile, heart rate 89, and blood pressure 137/69. HEENT: PERRLA. Extraocular muscles intact. NECK: Supple. No carotid bruit or thyromegaly. CHEST: Clear to auscultation. HEART: S1 and S2 regular. ABDOMEN: Soft. Mild tenderness in the abdomen. EXTREMITIES: Clubbing and cyanosis negative. LABORATORY DATA: Blood workup as follows; WBC 5.3, hemoglobin 7.3, hematocrit 23.3, and platelet count 94. Chemistry shows sodium 127, potassium 5.9, chloride , CO2 of 28, anion gap of , BUN of 41, and creatinine of 5.1. IMPRESSION AND PLAN: End-stage renal disease, on dialysis; gastrointestinal bleed, status post RBC transfusion; history of pulmonary hypertension, most recent echo on 06/23/2017 shows ejection fraction of 40% to 45%, [id number] mitral regurgitation, severe tricuspid regurgitation, severe pulmonary hypertension reported as 79, but cardiac catheterization revealed normal PA pressure upper limit normal at 34, previous 0.5. The discrepancy between echo and cardiac catheterization could be possibly the patient was at that time the fluid overload when the patient had echo and also the patient had been treated with Primacor, though was turned off in the cath, but earlier the patient was on Primacor, so plan is to do a repeat echo while the patient is off Primacor for last 24 hours and post dialysis, we will arrange the echo today after dialysis to assess the pulmonary pressure, so medication for pulmonary hypertension can be given and treated. Discussed in length with the national sales consultant. Discussed in length with Dr. Painting. Further recommendation after echo. We will follow with you. In time, continue treatment for GI. The patient agreed to go for endoscopy and sclerotherapy if needed. No absolute contraindication in cardiology point of view. I have discussed with Dr. Rosado. Thank you Dr. Gomez for providing us the opportunity in taking care of Jacqui Kraus. Po Mccullough MD
--- NOTE | 2017-06-28 08:43 | CP.CCUPN ---
<Kai Garcia - Last Filed: 06/28/17 09:59> CCU Subjective - Physician Review Subjective (Free Text): Critical care progress note - Scotty Radha PGY2 Patient seen and examined at bedside this morning. No acute overnight events or new complaints reported. Yesterday patient was transfused 1 unit PRBC during hemodialysis, underwent repeat echocardiogram as well as repeat endoscopic. Endoscopy revealed engoged veins in the fundus and cardia with oozing of blood noted in the fundus. 3 hemoclips were placed. Patient reports no episodes of melanotic stools overnight. No overt GI bleed noted. Reports having slept well. Denies chest pain, palpitations, SOB. CCU Objective - Vital Signs / Intake & Output Vital Signs (Last 4 hours): Vital Signs Pulse Resp BP Pulse Ox 06/28/17 06:07 105 H 20 06/28/17 06:00 88 19 122/45 L 97 06/28/17 05:00 89 21 137/59 L 99 Intake and Output (Last 8hrs): Intake & Output 06/27/17 06/28/17 06/28/17 22:59 06:59 14:59 Intake Total 252.5 120 Output Total 40 Balance 252.5 80 Intake: IV 252.5 120 Right Hand 120 Oral 0 Blood Product 0 Output: Urine 40 Urine, Voided 40 Other: # Bowel Movements 0 - Physical Exam Head: Positive for: Atraumatic, Normocephalic Pupils: Positive for: PERRL Extroacular Muscles: Positive for: EOMI Conjunctiva: Negative for: Icteric Ears: Positive for: Normal. Negative for: Erythema, TM Bulging, Fluid Mouth: Positive for: Moist Mucous Membranes Pharnyx: Positive for: Normal. Negative for: ERYTHEMA, EXUDATE, TONSILS ENLARGED, Peritonsilar Swelling, Uvular Deviation, Muffled/Hoarse Voice, Strider , Soft Palate/Uvular Edema Nose (External): Positive for: Atraumatic Nose (Internal): Positive for: Normal Inspection Neck: Positive for: Normal Range of Motion Respiratory/Chest: Positive for: Clear to Auscultation, Good Air Exchange. Negative for: Respiratory Distress, Accessory Muscle Use Cardiovascular: Positive for: Regular Rate and Rhythm, Normal S1, S2. Negative for: Murmurs, Rub, Gallop Abdomen: Positive for: Normal Bowel Sounds. Negative for: Tenderness, Distention, Peritoneal Signs Back: Positive for: Normal Inspection Upper Extremity: Positive for: Other (L arm AVF fistula with good thrill). Negative for: Cyanosis, Edema Lower Extremity: Positive for: Capillary Refill < 2 s. Negative for: Edema Neurological: Positive for: GCS=15, CN II-XII Intact, Speech Normal, Motor Func Grossly Intact, Normal Sensory Function Skin: Positive for: Warm, Dry. Negative for: Rashes Psychiatric: Positive for: Alert, Oriented x 3 - Medications Active Medications: Active Medications Generic Name Dose Route Start Last Admin Trade Name Freq PRN Reason Stop Dose Admin Hydromorphone HCl 0.5 mg 06/23/17 12:13 06/28/17 07:01 Dilaudid IM 0.5 mg Q4H PRN Administration Pain, moderate (4-7) Octreotide Acetate 1,250 mcg/ 252.5 mls @ 10.1 mls/hr 06/23/17 20:30 20:30 Dextrose IV 50 mcg/hr .Q24H LEX 10.1 mls/hr Protocol Administration 50 MCG/HR Ondansetron HCl 4 mg 06/22/17 01:14 06/22/17 01:29 Zofran Inj IVP 4 mg Q6H PRN Administration Nausea/Vomiting Pantoprazole Sodium 40 mg 06/24/17 10:00 06/27/17 09:40 Protonix Inj IVP 40 mg DAILY LEX Administration Sevelamer HCl 800 mg 06/22/17 08:00 06/28/17 08:19 Renagel PO 800 mg WM LEX Administration Tramadol HCl 50 mg 06/22/17 00:39 06/28/17 01:58 Ultram PO 50 mg Q6 PRN Administration Pain, moderate (4-7) - Patient Studies Lab Studies: Lab Studies 06/28/17 06/28/17 06/28/17 Range/Units 06:57 05:30 05:30 WBC 8.7 (4.5-11.0) 10^3/ul RBC 2.60 L (3.5-6.1) 10^6/uL Hgb 7.7 L (12.0-16.0) g/dL Hct 23.4 L (36.0-48.0) % MCV 90.0 (80.0-105.0) fl MCH 29.6 (25.0-35.0) pg MCHC 32.9 (31.0-37.0) g/dl RDW 15.5 H (11.5-14.5) % Plt Count 93 L (120.0-450.0) 10^3/uL Manual Plt Count (120-450) K/mm3 MPV 9.8 (7.0-11.0) fl Gran % 78.9 H (50.0-68.0) % Lymph % (Auto) 10.2 L (22.0-35.0) % Brooks % (Auto) 6.1 H (1.0-6.0) % Eos % (Auto) 4.5 (1.5-5.0) % Baso % (Auto) 0.3 (0.0-3.0) % Gran # 6.87 H (1.4-6.5) Lymph # 0.9 L (1.2-3.4) Brooks # 0.5 (0.1-0.6) Eos # 0.4 (0.0-0.7) Baso # 0.03 (0.0-2.0) K/mm3 Sodium 133 (132-148) mmol/L Potassium 3.5 L (3.6-5.0) mmol/L Chloride 97 L (98-107) mmol/L Carbon Dioxide 31 (21-33) mmol/L Anion Gap 8 L (10-20) BUN 21 (7-21) mg/dL Creatinine 3.5 H (0.7-1.2) mg/dl Est GFR ( Amer) 16 Est GFR (Non-Af Amer) 13 POC Glucose (mg/dL) 88 (65-110) mg/dL Random Glucose 86 (70-110) mg/dL Calcium 7.1 L (8.4-10.5) mg/dL Phosphorus (2.5-4.5) mg/dL Total Bilirubin 1.4 H (0.2-1.3) mg/dL AST 49 H D (14-36) U/L ALT 40 (7-56) U/L Alkaline Phosphatase 275 H D (38-126) U/L Total Protein 4.1 L (5.8-8.3) g/dL Albumin 2.2 L (3.0-4.8) g/dL Globulin 1.9 gm/dL Albumin/Globulin Ratio 1.1 (1.1-1.8) Blood Type Antibody Screen Crossmatch BBK History Checked 06/27/17 06/27/17 06/27/17 Range/Units 21:17 19:33 16:47 WBC 7.7 D (4.5-11.0) 10^3/ul RBC 2.69 L (3.5-6.1) 10^6/uL Hgb 8.1 L (12.0-16.0) g/dL Hct 23.8 L (36.0-48.0) % MCV 88.5 (80.0-105.0) fl MCH 30.1 (25.0-35.0) pg MCHC 34.0 (31.0-37.0) g/dl RDW 15.2 H (11.5-14.5) % Plt Count 80 L (120.0-450.0) 10^3/uL Manual Plt Count (120-450) K/mm3 MPV 9.1 (7.0-11.0) fl Gran % (50.0-68.0) % Lymph % (Auto) (22.0-35.0) % Brooks % (Auto) (1.0-6.0) % Eos % (Auto) (1.5-5.0) % Baso % (Auto) (0.0-3.0) % Gran # (1.4-6.5) Lymph # (1.2-3.4) Brooks # (0.1-0.6) Eos # (0.0-0.7) Baso # (0.0-2.0) K/mm3 Sodium (132-148) mmol/L Potassium (3.6-5.0) mmol/L Chloride (98-107) mmol/L Carbon Dioxide (21-33) mmol/L Anion Gap (10-20) BUN (7-21) mg/dL Creatinine (0.7-1.2) mg/dl Est GFR ( Amer) Est GFR (Non-Af Amer) POC Glucose (mg/dL) 96 120 H (65-110) mg/dL Random Glucose (70-110) mg/dL Calcium (8.4-10.5) mg/dL Phosphorus (2.5-4.5) mg/dL Total Bilirubin (0.2-1.3) mg/dL AST (14-36) U/L ALT (7-56) U/L Alkaline Phosphatase (38-126) U/L Total Protein (5.8-8.3) g/dL Albumin (3.0-4.8) g/dL Globulin gm/dL Albumin/Globulin Ratio (1.1-1.8) Blood Type Antibody Screen Crossmatch BBK History Checked 06/27/17 06/27/17 06/27/17 Range/Units 11:30 10:00 06:30 WBC (4.5-11.0) 10^3/ul RBC (3.5-6.1) 10^6/uL Hgb (12.0-16.0) g/dL Hct (36.0-48.0) % MCV (80.0-105.0) fl MCH (25.0-35.0) pg MCHC (31.0-37.0) g/dl RDW (11.5-14.5) % Plt Count (120.0-450.0) 10^3/uL Manual Plt Count 110 L (120-450) K/mm3 MPV (7.0-11.0) fl Gran % (50.0-68.0) % Lymph % (Auto) (22.0-35.0) % Brooks % (Auto) (1.0-6.0) % Eos % (Auto) (1.5-5.0) % Baso % (Auto) (0.0-3.0) % Gran # (1.4-6.5) Lymph # (1.2-3.4) Brooks # (0.1-0.6) Eos # (0.0-0.7) Baso # (0.0-2.0) K/mm3 Sodium (132-148) mmol/L Potassium (3.6-5.0) mmol/L Chloride (98-107) mmol/L Carbon Dioxide (21-33) mmol/L Anion Gap (10-20) BUN (7-21) mg/dL Creatinine (0.7-1.2) mg/dl Est GFR ( Amer) Est GFR (Non-Af Amer) POC Glucose (mg/dL) (65-110) mg/dL Random Glucose (70-110) mg/dL Calcium (8.4-10.5) mg/dL Phosphorus 5.8 H (2.5-4.5) mg/dL Total Bilirubin (0.2-1.3) mg/dL AST (14-36) U/L ALT (7-56) U/L Alkaline Phosphatase (38-126) U/L Total Protein (5.8-8.3) g/dL Albumin (3.0-4.8) g/dL Globulin gm/dL Albumin/Globulin Ratio (1.1-1.8) Blood Type O POSITIVE Antibody Screen Negative Crossmatch See Detail BBK History Checked Patient has bt Laboratory Results - last 24 hr 06/27/17 06/27/17 06/27/17 06:30 10:00 11:30 WBC RBC Hgb Hct MCV MCH MCHC RDW Plt Count Manual Plt Count 110 L MPV Gran % Lymph % (Auto) Brooks % (Auto) Eos % (Auto) Baso % (Auto) Gran # Lymph # Brooks # Eos # Baso # Sodium Potassium Chloride Carbon Dioxide Anion Gap BUN Creatinine Est GFR ( Amer) Est GFR (Non-Af Amer) POC Glucose (mg/dL) Random Glucose Calcium Phosphorus 5.8 H Total Bilirubin AST ALT Alkaline Phosphatase Total Protein Albumin Globulin Albumin/Globulin Ratio Blood Type O POSITIVE Antibody Screen Negative Crossmatch See Detail BBK History Checked Patient has bt 06/27/17 06/27/17 06/27/17 16:47 19:33 21:17 WBC 7.7 D RBC 2.69 L Hgb 8.1 L Hct 23.8 L MCV 88.5 MCH 30.1 MCHC 34.0 RDW 15.2 H Plt Count 80 L Manual Plt Count MPV 9.1 Gran % Lymph % (Auto) Brooks % (Auto) Eos % (Auto) Baso % (Auto) Gran # Lymph # Brooks # Eos # Baso # Sodium Potassium Chloride Carbon Dioxide Anion Gap BUN Creatinine Est GFR ( Amer) Est GFR (Non-Af Amer) POC Glucose (mg/dL) 120 H 96 Random Glucose Calcium Phosphorus Total Bilirubin AST ALT Alkaline Phosphatase Total Protein Albumin Globulin Albumin/Globulin Ratio Blood Type Antibody Screen Crossmatch BBK History Checked 06/28/17 06/28/17 06/28/17 05:30 05:30 06:57 WBC 8.7 RBC 2.60 L Hgb 7.7 L Hct 23.4 L MCV 90.0 MCH 29.6 MCHC 32.9 RDW 15.5 H Plt Count 93 L Manual Plt Count MPV 9.8 Gran % 78.9 H Lymph % (Auto) 10.2 L Brooks % (Auto) 6.1 H Eos % (Auto) 4.5 Baso % (Auto) 0.3 Gran # 6.87 H Lymph # 0.9 L Brooks # 0.5 Eos # 0.4 Baso # 0.03 Sodium 133 Potassium 3.5 L Chloride 97 L Carbon Dioxide 31 Anion Gap 8 L BUN 21 Creatinine 3.5 H Est GFR ( Amer) 16 Est GFR (Non-Af Amer) 13 POC Glucose (mg/dL) 88 Random Glucose 86 Calcium 7.1 L Phosphorus Total Bilirubin 1.4 H AST 49 H D ALT 40 Alkaline Phosphatase 275 H D Total Protein 4.1 L Albumin 2.2 L Globulin 1.9 Albumin/Globulin Ratio 1.1 Blood Type Antibody Screen Crossmatch BBK History Checked Fingerstick Blood Sugar Results: 209 Critical Care Progress Note - Nutrition Nutrition: Nutrition Category Date Time Status Liquid Diet [DIET] Diets 06/24/17 Dinner Ordered Assessment/Plan - Assessment and Plan (Free Text) Plan: 56yo female with history of ESRD on hemodialysis(Mon/Mon/Mon), chronic anemia, HTN, COPD, GERD, chronic pancreatitis and brain aneurysm who presented to [facility] with c/o nausea, vomiting and melanotic stools on 06/21 secondary to an upper GI bleed from oozing gastric fundus thought to be secondary to portal hypertensive gastropathy. Neuro: -Awake, alert, oriented x3; answering questions appropriately Cardio: -Echo shows LVEF 40-45%, LV function moderately impaired, septal hypokinesis, mild AR, mild-mod MR, severe TR and severe pulm HTN RVSP 79 -Repeat echocardiogram notable for RSVP of 60mmHg, EF of 45-50%, trace MR/AR, moderate TR and moderate pulmonary hypertension -Right heart catherization results reviewed and discussed with cardiology; Results of cath likely false negative secondary to milrinone drip -Currently hemodynamically stable; maintain MAP > 65 -Cardio following; Dr. Jamel Pulm: -Protecting airway -Maintain O2 Sat>92% -Pulm following; Dr. Painting GI: -Patient s/p 1st EGD which was notable for what appeared to be portal hypertensive gastropathy with oozing bleed -Repeat endoscopy yesterday revealed engorged veins in the fundus and cardia with oozing of blood overlying the engorged veins in the fundus which are now s/ p 3 hemoclips -Continue protonix 40mg IVP qd per GI recommendations -Continue with octreotide gtt -Advance diet as tolerated -Pending Nuclear medicine Liver/spleen vascular flow scan -GI Following; Dr. Rosado Endocrine: -Maintain euglycemia Nephro: -Monitoring and repleting electrolytes as indicated -ESRD on HD (Mon/Mon/Mon) -Continue cinacalcet and sevelamer -Nephro following; Dr. Mathews Heme: -No overt signs of bleeding at this time -Presently s/p a total of 9 units pRBC transfusion with last unit on 06/27 during hemodialysis -Hgb today 7.7 from 8.1 yesterday -DVT prophylaxis with SCD's ID: -Cdiff negative -afebrile, no leukocytosis -No signs of infection at this time Patient seen and case discussed/reviewed with attending, Dr. Mcelroy <Kosta Mcelroy - Last Filed: 06/28/17 11:21> CCU Objective - Vital Signs / Intake & Output Intake and Output (Last 8hrs): Intake & Output 06/27/17 06/28/17 06/28/17 22:59 06:59 14:59 Intake Total 252.5 120 Output Total 40 Balance 252.5 80 Intake: IV 252.5 120 Right Hand 120 Oral 0 Blood Product 0 Output: Urine 40 Urine, Voided 40 Other: # Bowel Movements 0 - Medications Active Medications: Active Medications Generic Name Dose Route Start Last Admin Trade Name Freq PRN Reason Stop Dose Admin Hydromorphone HCl 0.5 mg 06/23/17 12:13 06/28/17 07:01 Dilaudid IM 0.5 mg Q4H PRN Administration Pain, moderate (4-7) Octreotide Acetate 1,250 mcg/ 252.5 mls @ 10.1 mls/hr 06/23/17 20:30 20:30 Dextrose IV 50 mcg/hr .Q24H LEX 10.1 mls/hr Protocol Administration 50 MCG/HR Ondansetron HCl 4 mg 06/22/17 01:14 06/22/17 01:29 Zofran Inj IVP 4 mg Q6H PRN Administration Nausea/Vomiting Pantoprazole Sodium 40 mg 06/24/17 10:00 06/28/17 09:30 Protonix Inj IVP 40 mg DAILY LEX Administration Sevelamer HCl 800 mg 06/22/17 08:00 06/28/17 08:19 Renagel PO 800 mg WM LEX Administration Tramadol HCl 50 mg 06/22/17 00:39 06/28/17 01:58 Ultram PO 50 mg Q6 PRN Administration Pain, moderate (4-7) - Patient Studies Lab Studies: Lab Studies 06/28/17 06/28/17 06/28/17 Range/Units 06:57 05:30 05:30 WBC 8.7 (4.5-11.0) 10^3/ul RBC 2.60 L (3.5-6.1) 10^6/uL Hgb 7.7 L (12.0-16.0) g/dL Hct 23.4 L (36.0-48.0) % MCV 90.0 (80.0-105.0) fl MCH 29.6 (25.0-35.0) pg MCHC 32.9 (31.0-37.0) g/dl RDW 15.5 H (11.5-14.5) % Plt Count 93 L (120.0-450.0) 10^3/uL Manual Plt Count (120-450) K/mm3 MPV 9.8 (7.0-11.0) fl Gran % 78.9 H (50.0-68.0) % Lymph % (Auto) 10.2 L (22.0-35.0) % Brooks % (Auto) 6.1 H (1.0-6.0) % Eos % (Auto) 4.5 (1.5-5.0) % Baso % (Auto) 0.3 (0.0-3.0) % Gran # 6.87 H (1.4-6.5) Lymph # 0.9 L (1.2-3.4) Brooks # 0.5 (0.1-0.6) Eos # 0.4 (0.0-0.7) Baso # 0.03 (0.0-2.0) K/mm3 Sodium 133 (132-148) mmol/L Potassium 3.5 L (3.6-5.0) mmol/L Chloride 97 L (98-107) mmol/L Carbon Dioxide 31 (21-33) mmol/L Anion Gap 8 L (10-20) BUN 21 (7-21) mg/dL Creatinine 3.5 H (0.7-1.2) mg/dl Est GFR ( Amer) 16 Est GFR (Non-Af Amer) 13 POC Glucose (mg/dL) 88 (65-110) mg/dL Random Glucose 86 (70-110) mg/dL Calcium 7.1 L (8.4-10.5) mg/dL Phosphorus (2.5-4.5) mg/dL Total Bilirubin 1.4 H (0.2-1.3) mg/dL AST 49 H D (14-36) U/L ALT 40 (7-56) U/L Alkaline Phosphatase 275 H D (38-126) U/L Total Protein 4.1 L (5.8-8.3) g/dL Albumin 2.2 L (3.0-4.8) g/dL Globulin 1.9 gm/dL Albumin/Globulin Ratio 1.1 (1.1-1.8) Blood Type Antibody Screen Crossmatch BBK History Checked 06/27/17 06/27/17 06/27/17 Range/Units 21:17 19:33 16:47 WBC 7.7 D (4.5-11.0) 10^3/ul RBC 2.69 L (3.5-6.1) 10^6/uL Hgb 8.1 L (12.0-16.0) g/dL Hct 23.8 L (36.0-48.0) % MCV 88.5 (80.0-105.0) fl MCH 30.1 (25.0-35.0) pg MCHC 34.0 (31.0-37.0) g/dl RDW 15.2 H (11.5-14.5) % Plt Count 80 L (120.0-450.0) 10^3/uL Manual Plt Count (120-450) K/mm3 MPV 9.1 (7.0-11.0) fl Gran % (50.0-68.0) % Lymph % (Auto) (22.0-35.0) % Brooks % (Auto) (1.0-6.0) % Eos % (Auto) (1.5-5.0) % Baso % (Auto) (0.0-3.0) % Gran # (1.4-6.5) Lymph # (1.2-3.4) Brooks # (0.1-0.6) Eos # (0.0-0.7) Baso # (0.0-2.0) K/mm3 Sodium (132-148) mmol/L Potassium (3.6-5.0) mmol/L Chloride (98-107) mmol/L Carbon Dioxide (21-33) mmol/L Anion Gap (10-20) BUN (7-21) mg/dL Creatinine (0.7-1.2) mg/dl Est GFR ( Amer) Est GFR (Non-Af Amer) POC Glucose (mg/dL) 96 120 H (65-110) mg/dL Random Glucose (70-110) mg/dL Calcium (8.4-10.5) mg/dL Phosphorus (2.5-4.5) mg/dL Total Bilirubin (0.2-1.3) mg/dL AST (14-36) U/L ALT (7-56) U/L Alkaline Phosphatase (38-126) U/L Total Protein (5.8-8.3) g/dL Albumin (3.0-4.8) g/dL Globulin gm/dL Albumin/Globulin Ratio (1.1-1.8) Blood Type Antibody Screen Crossmatch BBK History Checked 06/27/17 06/27/17 06/27/17 Range/Units 11:30 10:00 06:30 WBC (4.5-11.0) 10^3/ul RBC (3.5-6.1) 10^6/uL Hgb (12.0-16.0) g/dL Hct (36.0-48.0) % MCV (80.0-105.0) fl MCH (25.0-35.0) pg MCHC (31.0-37.0) g/dl RDW (11.5-14.5) % Plt Count (120.0-450.0) 10^3/uL Manual Plt Count 110 L (120-450) K/mm3 MPV (7.0-11.0) fl Gran % (50.0-68.0) % Lymph % (Auto) (22.0-35.0) % Brooks % (Auto) (1.0-6.0) % Eos % (Auto) (1.5-5.0) % Baso % (Auto) (0.0-3.0) % Gran # (1.4-6.5) Lymph # (1.2-3.4) Brooks # (0.1-0.6) Eos # (0.0-0.7) Baso # (0.0-2.0) K/mm3 Sodium (132-148) mmol/L Potassium (3.6-5.0) mmol/L Chloride (98-107) mmol/L Carbon Dioxide (21-33) mmol/L Anion Gap (10-20) BUN (7-21) mg/dL Creatinine (0.7-1.2) mg/dl Est GFR ( Amer) Est GFR (Non-Af Amer) POC Glucose (mg/dL) (65-110) mg/dL Random Glucose (70-110) mg/dL Calcium (8.4-10.5) mg/dL Phosphorus 5.8 H (2.5-4.5) mg/dL Total Bilirubin (0.2-1.3) mg/dL AST (14-36) U/L ALT (7-56) U/L Alkaline Phosphatase (38-126) U/L Total Protein (5.8-8.3) g/dL Albumin (3.0-4.8) g/dL Globulin gm/dL Albumin/Globulin Ratio (1.1-1.8) Blood Type O POSITIVE Antibody Screen Negative Crossmatch See Detail BBK History Checked Patient has bt Laboratory Results - last 24 hr 06/27/17 06/27/17 06/27/17 06:30 10:00 11:30 WBC RBC Hgb Hct MCV MCH MCHC RDW Plt Count Manual Plt Count 110 L MPV Gran % Lymph % (Auto) Brooks % (Auto) Eos % (Auto) Baso % (Auto) Gran # Lymph # Brooks # Eos # Baso # Sodium Potassium Chloride Carbon Dioxide Anion Gap BUN Creatinine Est GFR ( Amer) Est GFR (Non-Af Amer) POC Glucose (mg/dL) Random Glucose Calcium Phosphorus 5.8 H Total Bilirubin AST ALT Alkaline Phosphatase Total Protein Albumin Globulin Albumin/Globulin Ratio Blood Type O POSITIVE Antibody Screen Negative Crossmatch See Detail BBK History Checked Patient has bt 06/27/17 06/27/17 06/27/17 16:47 19:33 21:17 WBC 7.7 D RBC 2.69 L Hgb 8.1 L Hct 23.8 L MCV 88.5 MCH 30.1 MCHC 34.0 RDW 15.2 H Plt Count 80 L Manual Plt Count MPV 9.1 Gran % Lymph % (Auto) Brooks % (Auto) Eos % (Auto) Baso % (Auto) Gran # Lymph # Brooks # Eos # Baso # Sodium Potassium Chloride Carbon Dioxide Anion Gap BUN Creatinine Est GFR ( Amer) Est GFR (Non-Af Amer) POC Glucose (mg/dL) 120 H 96 Random Glucose Calcium Phosphorus Total Bilirubin AST ALT Alkaline Phosphatase Total Protein Albumin Globulin Albumin/Globulin Ratio Blood Type Antibody Screen Crossmatch BBK History Checked 06/28/17 06/28/17 06/28/17 05:30 05:30 06:57 WBC 8.7 RBC 2.60 L Hgb 7.7 L Hct 23.4 L MCV 90.0 MCH 29.6 MCHC 32.9 RDW 15.5 H Plt Count 93 L Manual Plt Count MPV 9.8 Gran % 78.9 H Lymph % (Auto) 10.2 L Brooks % (Auto) 6.1 H Eos % (Auto) 4.5 Baso % (Auto) 0.3 Gran # 6.87 H Lymph # 0.9 L Brooks # 0.5 Eos # 0.4 Baso # 0.03 Sodium 133 Potassium 3.5 L Chloride 97 L Carbon Dioxide 31 Anion Gap 8 L BUN 21 Creatinine 3.5 H Est GFR ( Amer) 16 Est GFR (Non-Af Amer) 13 POC Glucose (mg/dL) 88 Random Glucose 86 Calcium 7.1 L Phosphorus Total Bilirubin 1.4 H AST 49 H D ALT 40 Alkaline Phosphatase 275 H D Total Protein 4.1 L Albumin 2.2 L Globulin 1.9 Albumin/Globulin Ratio 1.1 Blood Type Antibody Screen Crossmatch BBK History Checked Critical Care Progress Note - Nutrition Nutrition: Nutrition Category Date Time Status Liquid Diet [DIET] Diets 06/24/17 Dinner Ordered Assessment/Plan - Assessment and Plan (Free Text) Plan: Patient seen and examined, agree with residents note with following additions/ exception: 56yo female with history of ESRD on hemodialysis(Mon/Mon/Mon), chronic anemia, HTN, COPD, GERD, chronic pancreatitis and brain aneurysm who was admitted for UGIB. Patient had HD yesterday, and 1u PRBC. Pt also had EGD yesterday, had clips placed for hemostatic control of bleeding, which was achieved via EGD. Repeat ECHO yesterday post HD showed RVSP ~60. Cardiology, and GI following, IR involved as well Currently afebrile, HD stable, comfortable. Lab work today noted, with drop in HH to 7.7 from 8.1. Transfuse 1u PRBC today, possible HD today Follow up GI, Cardiology Monitor HH. GI ppx, DVT ppx.
--- NOTE | 2017-06-28 13:37 | CP.PCM.PN ---
<Jennifer Barron - Last Filed: 06/28/17 13:35> Subjective - Date & Time of Evaluation Date of Evaluation: 06/28/17 Time of Evaluation: 09:30 - Subjective Subjective: S&E at bedside, chart reviewed, patient OOB, had repeat EGD yesterday found to have oozing blood from engorged veins fundus and cardia, status post hemicolectomy 3. Patient denies nausea, hematemesis, or abdominal pain. Tolerating clear liquids. No reports of overt GI bleed. Objective - Vital Signs/Intake and Output Vital Signs (last 24 hours): Temp Pulse Resp BP Pulse Ox 98.7 F 73 22 143/74 93 L 06/26/17 12:10 06/28/17 10:00 06/28/17 09:00 06/28/17 11:00 06/28/17 11:00 Intake and Output: 06/28/17 06/28/17 06:59 18:59 Intake Total 372.5 Output Total 40 Balance 332.5 - Medications Medications: Current Medications Hydromorphone HCl (Dilaudid) 0.5 mg IM Q4H PRN PRN Reason: Pain, moderate (4-7) Last Admin: 06/28/17 07:01 Dose: 0.5 mg Octreotide Acetate 1,250 mcg/ (Dextrose) 252.5 mls @ 10.1 mls/hr IV .Q24H LEX; 50 MCG/HR PRN Reason: Protocol Last Admin: 06/27/17 20:30 Dose: 50 mcg/hr, 10.1 mls/hr Ondansetron HCl (Zofran Inj) 4 mg IVP Q6H PRN PRN Reason: Nausea/Vomiting Last Admin: 06/22/17 01:29 Dose: 4 mg Pantoprazole Sodium (Protonix Inj) 40 mg IVP DAILY LEX Last Admin: 06/28/17 09:30 Dose: 40 mg Sevelamer HCl (Renagel) 800 mg PO WM LEX Last Admin: 06/28/17 12:20 Dose: Not Given Tramadol HCl (Ultram) 50 mg PO Q6 PRN PRN Reason: Pain, moderate (4-7) Last Admin: 06/28/17 01:58 Dose: 50 mg - Labs Labs: 06/28/17 05:30 06/28/17 05:30 PT 14.7 SECONDS (9.4-12.5) H 06/22/17 02:30 INR 1.34 (0.93-1.08) H 06/22/17 02:30 APTT 28.3 Seconds (25.1-36.5) 06/22/17 02:30 - Constitutional Appears: No Acute Distress - Head Exam Head Exam: NORMOCEPHALIC - Eye Exam Eye Exam: Normal appearance. absent: Scleral icterus - ENT Exam ENT Exam: Mucous Membranes Moist - Neck Exam Neck Exam: Normal Inspection - Respiratory Exam Respiratory Exam: Decreased Breath Sounds, NORMAL BREATHING PATTERN. absent: Respiratory Distress - Cardiovascular Exam Cardiovascular Exam: +S1, +S2 - GI/Abdominal Exam GI & Abdominal Exam: Soft, Normal Bowel Sounds. absent: Guarding, Tenderness, Organomegaly, Rebound - Extremities Exam Extremities Exam: absent: Calf Tenderness, Pedal Edema - Neurological Exam Neurological Exam: Alert, Awake, Oriented x3 - Skin Skin Exam: Dry, Warm Assessment and Plan - Assessment and Plan (Free Text) Assessment: ASSESSMENT: Severe Anemia secondary to GI bleeding, s/p total 9units of PRBC S/P EGD X2, initial : 06/23/17, portal htn gastropathy w/blood oozing from vein/ repeat EGD on 06/27/17: (+) bleeding /with engorged veins fundus & cardia s/p 3 hemoclips S/P Cardiac cath: negative, no evidence of pulmonary htn ESRD on Hemodailysis H/O colon polyps COPD H/O Chronic Pancreatitis H/O GERD HTN PLAN: continue Octreotide drip 2units of PRBC w/ dialysis as per renal monitor H/H and for overt GI bleeding continue Protonix 40 mg IVP pending liver/spleen scan SCD for DVT prophylaxsis clear liquid diet if continue to bleed, may need embolization, FU closely. Seen and discussed w/ Dr. Rosado. <Jesus Manuel Rosado V - Last Filed: 06/28/17 23:44> Objective - Vital Signs/Intake and Output Vital Signs (last 24 hours): Temp Pulse Resp BP Pulse Ox 98.7 F 66 20 142/61 96 06/26/17 12:10 06/28/17 22:00 06/28/17 18:00 06/28/17 18:20 06/28/17 18:00 Intake and Output: 06/28/17 06/29/17 18:59 06:59 Intake Total 1270 Output Total 1300 Balance -30 - Medications Medications: Current Medications Hydromorphone HCl (Dilaudid) 0.5 mg IM Q4H PRN PRN Reason: Pain, moderate (4-7) Last Admin: 06/28/17 19:48 Dose: 0.5 mg Octreotide Acetate 1,250 mcg/ (Dextrose) 252.5 mls @ 10.1 mls/hr IV .Q24H LEX; 50 MCG/HR PRN Reason: Protocol Last Admin: 06/27/17 20:30 Dose: 50 mcg/hr, 10.1 mls/hr Nadolol (Corgard) 20 mg PO DAILY LEX Last Admin: 06/28/17 18:20 Dose: 20 mg Ondansetron HCl (Zofran Inj) 4 mg IVP Q6H PRN PRN Reason: Nausea/Vomiting Last Admin: 06/22/17 01:29 Dose: 4 mg Pantoprazole Sodium (Protonix Inj) 40 mg IVP DAILY LEX Last Admin: 06/28/17 09:30 Dose: 40 mg Sevelamer HCl (Renagel) 800 mg PO WM LEX Last Admin: 06/28/17 17:20 Dose: 800 mg Tramadol HCl (Ultram) 50 mg PO Q6 PRN PRN Reason: Pain, moderate (4-7) Last Admin: 06/28/17 01:58 Dose: 50 mg - Labs Labs: 06/28/17 05:30 06/28/17 05:30 PT 14.7 SECONDS (9.4-12.5) H 06/22/17 02:30 INR 1.34 (0.93-1.08) H 06/22/17 02:30 APTT 28.3 Seconds (25.1-36.5) 06/22/17 02:30 Attending/Attestation - Attestation I have personally seen and examined this patient.: Yes I have fully participated in the care of the patient.: Yes I have reviewed all pertinent clinical information, including history, physical exam and plan: Yes Notes (Text): This is an addendum to GI progress report dictated by Jennifer Barron APN. The patient was seen evaluated earlier. Discussed with Dr. Nevarez, , and Dr. Amaro I also discussed with the patient and patient's son at the request of the patient this 56-year-old patient with end-stage renal disease on hemodialysis, pulmonary hypertension history of congestive hepatomegaly, history of chronic diarrhea presented with the melena and hemoglobin of 4.1. Status post 13 units packed RBC infusion. She had upper GI endoscopy done again yesterday and was found to have mosaiac pattern,of mucosa with engorged veins in the fundus with most like pattern of the mucosa suggestive of possible portal hypertension. Again there was some oozing of the blood noticed from mucosa close to one of the prominent of these engorged veins. No ulceration was noticed. The differential diagnosis again Dieulofoy lesion versus portal hypertension. No ulceration or AVM noticed In view of the recurrence of the bleeding, last right heart catheterization and hepatic vein wedge pressure suggestive of normal portal pressure the decision was made to clip the bleeding site for with complete success 3 clips were applied there was no blood noticed a post procedure. Patient continues to drop blood count. No obvious melena noticed again 2 units were transfused again today. I am very concerned about the cause for the bleeding. Clearly upper endoscopy showed bleeding from the fundal area the blood in the stomach. There wer engorged veins with mosaic pattern of mucosa , suggestive of endoscopic could be related to octreotide drip which patient has been receiving. The octreotide drip can lower the splanchnic pressure and thus mave have resulted normalize portal hypertension. the imaging appearance was not typical of portal hypertension. This is a rather confusing. Typically fundal area with the engorged veins and no definitive ulceration points more to her. Patient does have pulmonary hypertension repeat echo and also previous ago was more suggestive of the pulmonary hypertension portal hypertension can also contribute to elevated pulmonary artery pressure I'm concerned about the continuous drop in her blood count receiving multiple transfusion. I also discussed with the Dr. Josh Vanegas interventional radiologist. Liver spleen scan has been ordered we'll await further results Patient may need a repeat hepatic wedge pressure and gradient measurement This 56-year-old old patient with his bleeding With the multiple complex comorbidities would need close monitoring in the in the ICU care ,. This patient has moderat pulmonary hypertension, active ongoing bleeding, exact etiology for the engorged veins the bleeding unclear i Would recommend repeat bleeding scan if there is any active bleeding to further localize the site and also repeat hepatic vein wedge pressure. If there is increased gradient suggestive of portal hypertension patient could go for TIPS. If the repeat hepatic vein wedge pressure is normal and the patient continues to have active bleeding would request interventional radiologist for embolization In asddition in my opinion it is reasonable to continue ICU care and consider tertiary care referral for this patient with complex multiple problems , pulmonary hypertension and active bleeding who has been transfused so for 11 units of PRBC. 06/28/17 23:43
--- NOTE | 2017-06-28 18:45 | PN ---
DATE: SUBJECTIVE: The patient is a 56-year-old, seen and examined, receiving hemodialysis. The patient dropped on hemoglobin again, being given 2 blood transfusions. She states she is hungry. She is only on ice chips. PHYSICAL EXAMINATION VITAL SIGNS: She is afebrile, pulse 74, respirations 25 and blood pressure 125/52. LUNGS: Bilateral fair airflow. No rhonchi or crackles. HEART: S1 and S2 audible. ABDOMEN: Soft. Slight epigastric discomfort. NEUROLOGIC: She is awake, alert, and oriented. Communicative. LABORATORY DATA: WBC 8.7, hemoglobin 7.7, hematocrit 23.4 and platelet 93. Chemistry: Sodium 133, potassium 3.5, chloride 97, CO2 31, BUN 21, creatinine 3.5 and blood sugar of 88. The patient had liver and spleen scan done, awaiting results. ASSESSMENT AND PLAN: Upper gastrointestinal bleed. The patient had multiple telangiectasia in her stomach and she also had dilated gastric varices. Dr. Rosado did endoscopy yesterday and had clips on the bleeding point. We will transfuse 2 packs of red blood cells. Followup liver and spleen scan. Discussed with Dr. Rosado. Discussed with Dr. Josh Vanegas. We will follow up her hemoglobin and hematocrit closely. The patient also had cardiac catheterization done to see right heart pressures. According to Dr. Mccullough, she does not have significant pulmonary hypertension; however, echocardiogram last time showed pulmonary hypertension. Dr. Rosado will reach out to Laundry Laborer in [facility] and discuss case with him and we will make further plan. For now, we will monitor hemoglobin and hematocrit and the patient was given DDAVP last night and has been started on octreotide. We will start the patient on small dose of nadolol since she is not bradycardiac or hypotensive. We will start her on small dose and monitor the heart rate, blood pressure and hemoglobin and hematocrit. Shawn Gomez MD
--- NOTE | 2017-06-28 20:40 | PN ---
DATE: 06/28/2017 LOCATION: The patient is in Room ICU 128, bed 2. REASON FOR CONSULTATION: Follow up GI bleeding, anemia, moderate mitral regurgitation, tricuspid regurgitation, status post cardiac catheterization, portal hypertension, pulmonary hypertension, normal coronaries. SUBJECTIVE: The patient complaint of abdominal pain, but denies any chest pain, shortness of breath, palpitation. PHYSICAL EXAMINATION VITAL SIGNS: Blood pressure 125/52, respirations 17, pulse 74. The patient is afebrile. HEENT: Head is normocephalic. Eyes: Pupils normal. Conjunctivae pale. NECK: JVP low. Carotids are equal. THORAX: AP diameter normal. LUNGS: Clear. CARDIOVASCULAR: S1 and S2. Systolic murmur. Tenderness in the epigastrium. No organomegaly. EXTREMITIES: No clubbing, no cyanosis. LABORATORY DATA: WBC 8.7, hemoglobin 7.7, hematocrit 23.4, platelets 93. Sodium 133, potassium 3.5, BUN 21, creatinine 3.5, magnesium 1.4. Total protein 4.1,albumin 2.2. DIAGNOSES: End-stage renal disease, on dialysis, gastrointestinal bleeding, status post blood transfusions, history of pulmonary hypertension. Echo on 06/23/2017, showed ejection fraction 40% to 45%, mild to moderate mitral regurgitation, severe tricuspid regurgitation, severe pulmonary hypertension with RVSP 79 mmHg. Cardiac catheterization relieved the PA pressure upper limit of normal. The difference between the patient's echo and cardiac catheterization, pressure could be the reason the patient is on Primacor or patient had fluid overload earlier. The patient had repeat echo off Primacor and it showed RVSP 60 mmHg. Second echo on 06/27/2017 also showed moderate tricuspid regurgitation. PLAN: Case discussed with Dr. Painting, Pulmonary and echo finding have been convoyed to him. The patient has hypokalemia and hypomagnesemia. We will give magnesium and potassium. We will repeat labs in the morning. Follow CBC in the morning. The patient on Protonix 40 mg IV daily, nadolol 20 mg p.o. daily. The patient also received one dose of desmopressin 20 mcg, sodium chloride 0.9%, 50 mL IV once and Renagel 800 mg p.o. with meals. We will follow. Po rBadford MD [facility] # [id number]
[2017-06-29] MEDS: HYDROmorphone 1 mg/ml ISec IM PRN (00:02)
[2017-06-29] MEDS: HYDROmorphone 0.5 mg/0.5 ml ISec IVP PRN ×4 (04:04→22:32)
[2017-06-29] MEDS: Octreotide 1,250 MCG in Dextrose 5% In Water 250 ML IV SCH (05:50)
[2017-06-29 06:20] LABS: BASO # 0.05 K/mm3 (0.0-2.0); BASO % 0.8 % (0.0-3.0); EOS # 0.5 (0.0-0.7); EOS % 7.5 % (1.5-5.0); GRAN # 4.32 (1.4-6.5); GRAN % 69.4 % (50.0-68.0); HEMATOCRIT 29.7 % (36.0-48.0); LYMPH # 0.9 (1.2-3.4); LYMPH % 14.8 % (22.0-35.0); MEAN CELL VOLUME 88.7 fl (80.0-105.0); MEAN CORPUSCULAR HEMOGLOBIN 29.3 pg (25.0-35.0); MEAN PLATELET VOLUME 9.4 fl (7.0-11.0); MONO # 0.5 (0.1-0.6); MONO % 7.5 % (1.0-6.0); RED CELL DISTRIBUTION WIDTH 15.6 % (11.5-14.5); WHITE BLOOD COUNT 6.2 10^3/ul (4.5-11.0)
[2017-06-29 07:26] LABS: ALB/GLOB RATIO 1.1 (1.1-1.8); BILIRUBIN,TOTAL 2.3 mg/dL (0.2-1.3); CALCIUM 7.4 mg/dL (8.4-10.5); POTASSIUM 3.4 mmol/L (3.6-5.0); TOTAL PROTEIN 4.7 g/dL (5.8-8.3)
[2017-06-29 10:34] LABS: BASO # 0.06 K/mm3 (0.0-2.0); BASO % 0.9 % (0.0-3.0); EOS # 0.5 (0.0-0.7); GRAN # 4.97 (1.4-6.5); GRAN % 72.5 % (50.0-68.0); HEMATOCRIT 31.5 % (36.0-48.0); LYMPH # 0.9 (1.2-3.4); LYMPH % 13.6 % (22.0-35.0); MEAN CELL VOLUME 89.2 fl (80.0-105.0); MEAN CORPUSCULAR HEMOGLOBIN 29.5 pg (25.0-35.0); MEAN PLATELET VOLUME 9.2 fl (7.0-11.0); MONO # 0.4 (0.1-0.6); RED CELL DISTRIBUTION WIDTH 15.7 % (11.5-14.5); WHITE BLOOD COUNT 6.9 10^3/ul (4.5-11.0)
--- NOTE | 2017-06-29 13:53 | PN ---
DATE: 06/29/2017 SUBJECTIVE: The patient is seen and examined at bedside. She is comfortable. She complains little bit on hip pain (right more then left), which is not new and has been bothering her since she was born. She is on Dilaudid and tramadol p.r.n. She had uneventful nights and somewhat hungry. She is on clear liquid diet. We are awaiting for GI service to clear her to advance her diet. PHYSICAL EXAMINATION: VITAL SIGNS: Oxygen saturation 95%, blood pressure 134/57, heart rate 64, and respiratory rate 17. ENT: Head and neck atraumatic. LUNGS: Clear to auscultation bilaterally. HEART: Regular rate and rhythm. S1 and S2 normal. ABDOMEN: Soft, nontender, and nondistended. MUSCULOSKELETAL: No C/C/E. NEUROLOGIC: The patient moves all extremities spontaneously. SKIN: Color is moist. PSYCHIATRIC: The patient is alert and oriented x3. LABORATORY DATA: The patient's hemoglobin is 9.8 up from 7.7 since yesterday (after 2 units of blood transfused), later today (4 hours after hemoglobin 9.8 results were become avalable) hemoglobin level is 10.4 without any blood transfusion. WBC is 6.9 and platelet count is 86. Sodium 131, potassium 3.4, chloride 95, BUN 19, creatinine 3.6 (the patient is on dialysis), AST 46, ALT 39, bilirubin 2.3, INR 1.34, and alkaline phosphatase 335. MEDICATIONS: Dilaudid p.r.n., nadolol 20 mg p.o., daily, octreotide drip, Zofran p.r.n., Protonix, Renagel, and tramadol p.r.n. ASSESSMENT AND PLAN: This is a 56-year-old lady who presented to ICU with some venous bleeding in upper gastrointestinal tract, while extensive workup to establish the diagnosis, that would potentially explain venous bleeding in the stomach is being undertaken. While the patient was on octreotide and milrinone, neither pulmonary hypertension nor portal hypertension was observed with invasive diagnostic procedures. At the present time, the decision was made by GI service to discuss that with tertiary center, production drilling machine operator to come up with further plan of action. From bleeding perspective, however, it appears that the patient is not bleeding anymore (hemostasis was achieved during the latest endoscopy) and hemoglobin stability achieved as well labwise. The patient is hemodynamically and respiratory huggins stable. If diagnosis of portopulmonary hypertension is established, beta-blockers could potentially be contraindicated and that have to be discussed between GI, private pulmonary and primary medical doctor services. In light of no evidence of active bleeding, presence of hemodynamic stability, respiratory stability, ability to protect airways, the patient can be transferred to telemetry at present time. That was discussed with Dr. Painting, Dr. Rosado, and Dr. Gomez all of whom agreed. We will continue to target euvolemia, euglycemia, normothermia, and oxygen saturation more than 100%. Please call ICU for reevaluation in case the patient started to bleed again, the patient become hemodynamically or respiratory huggins unstable, if the patient were unable to protect her airways or if any other clinical concern arise. I would continue to target euvolemia, euglycemia, normothermia, and oxygen saturation more than 100%. We will continue with mechanical deep venous thrombosis prophylaxis. The patient is on octreotide drip and Protonix daily. ccm time 40 min Nazario Amaro MD [facility]
--- NOTE | 2017-06-29 17:20 | PN ---
DATE: 06/29/2017 SUBJECTIVE: This patient was seen and evaluated earlier today in the ICU. The patient's son was also at bedside, discussed with the nursing staff and also I discussed with Dr. Amaro, hatch supervisor earlier. PHYSICAL EXAMINATION VITAL SIGNS: Temperature 98.7, blood pressure 134/57, respirations 24, O2 saturation is 94. HEENT: Atraumatic, anicteric. NECK: Supple. HEART: S1 and S2 heard. There is systolic murmur present at the right sternal margin. LUNGS: Bilateral air entry present. ABDOMEN: Soft. Mild tenderness present in the epigastric area and right upper quadrant. EXTREMITIES: No edema, no cyanosis, no clubbing. NEUROLOGIC: Alert, oriented. Moves all the extremities. LABORATORY DATA: Hemoglobin has gone up to 10.4, hematocrit 31.5, WBC 6.9, platelets 86. Sodium 131, potassium 3.4, alkaline phosphatase 335. IMPRESSION: This is a 56-year-old patient with status post massive upper gastrointestinal bleeding, nearly about 11 units transfused. He is comorbid. The patient had an endoscopy, showed engorged veins in the fundus with mosaic pattern suggestive of portal hypertension; however, the right heart catheterization with hepatic venous pressure with wedge pressure was not supportive of this portal hypertension, but repeat echocardiogram showed a right ventricular systolic pressure elevated suggestive of portal hypertension. The patient was on octreotide. This could partially contribute to the normal portal pressure. The patient is presently on . The patient will continue the Sandostatin. The patient's hemoglobin in now stable. No melena. PLAN: 1. To follow up closely hemoglobin and hematocrit. 2. Advance the diet. 3. We will change the Protonix to 20 mg daily with Protonix to 20 mg in a.m. and 20 mg of Pepcid at nighttime. 4. Close followup of the hemoglobin and hematocrit. 5. The patient would benefit from repeating the hepatic wedge pressure electively to reevaluate the portal hypertension and also repeating the endoscopy in a few days' time. The patient may benefit from referral to a tertiary center electively. We will continue to closely follow up the hemoglobin and hematocrit and suggest further recommendation based on the clinical course. Jesus Manuel Rosado MD
--- NOTE | 2017-06-29 21:59 | PN ---
DATE: SUBJECTIVE: The patient is a 56-year-old seen and examined. Seems to be doing little better. Denies any nausea or vomiting. States she is hungry. She wants solid food. PHYSICAL EXAMINATION: VITAL SIGNS: She is afebrile, pulse 62, respirations 20 and blood pressure 134/57. LUNGS: Bilateral fair airflow. No rhonchi or crackles. HEART: S1 and S2 audible. ABDOMEN: Soft. No rebound. No guarding. NEUROLOGIC: She is awake, alert, oriented and communicative. LABORATORY DATA: WBC 6.9, hemoglobin 10.4, hematocrit 31.5 and platelets of 86. Chemistry; sodium 131, potassium 3.4, chloride 95, CO2 of 29, BUN 19, creatinine 3.6 and blood sugar of 98. Liver and spleen scan is pending. ASSESSMENT: 1. Upper gastrointestinal bleed. Source is petechiae in the stomach. 2. Portal hypertension. 3. Status post cardiac cath, nonocclusive coronaries. 4. End-stage renal disease on hemodialysis. 5. Gastritis. 6. Anemia status post multiple blood transfusion. 7. Status post endoscopy. PLAN: The patient is transferred since the patient is hemodynamically stable. Her hemoglobin is of having total of 8 blood transfusions, seems to be stable now and holding her H&H. Is being transferred to telemetry, out of bed to chair. If her hemoglobin is stable, we will start her on semisolid tomorrow. Shawn Gomez MD
[2017-06-30 00:58] VITALS: RESP 20
[2017-06-30] MEDS: HYDROmorphone 0.5 mg/0.5 ml ISec IVP PRN ×2 (02:45→08:09)
[2017-06-30 05:54] VITALS: O2SAT 98
[2017-06-30 07:14] LABS: BASO # 0.04 K/mm3 (0.0-2.0); BASO % 0.7 % (0.0-3.0); EOS # 0.4 (0.0-0.7); EOS % 7.2 % (1.5-5.0); GRAN # 4.13 (1.4-6.5); GRAN % 68.1 % (50.0-68.0); HEMATOCRIT 30.9 % (36.0-48.0); LYMPH % 15.8 % (22.0-35.0); MEAN CELL VOLUME 89.3 fl (80.0-105.0); MEAN CORPUSCULAR HEMOGLOBIN 29.2 pg (25.0-35.0); MEAN CORPUSCULAR HGB CONC 32.7 g/dl (31.0-37.0); MEAN PLATELET VOLUME 10.4 fl (7.0-11.0); MONO # 0.5 (0.1-0.6); MONO % 8.2 % (1.0-6.0); RED CELL DISTRIBUTION WIDTH 15.1 % (11.5-14.5); WHITE BLOOD COUNT 6.1 10^3/ul (4.5-11.0)
[2017-06-30 07:43] LABS: CALCIUM 7.9 mg/dL (8.4-10.5); POTASSIUM 4.2 mmol/L (3.6-5.0)
--- NOTE | 2017-06-30 09:01 | PN ---
DATE: 06/29/2017(620am--710am) SUBJECTIVE: The patient appears comfortable this morning. She is not short of breath at rest. PHYSICAL EXAMINATION VITAL SIGNS: Temperature is 98.4, pulse on the monitor is 72, respirations 18/20, blood pressure 138/56. Oxygen saturation on room air is 95%. HEENT: Normocephalic, atraumatic. No JVD. CARDIOVASCULAR: Systolic ejection murmur at the lower left sternal border. No S3 gallop. LUNGS: Clear bilaterally. EXTREMITIES: Mild edema. No cyanosis, no clubbing. Calves are nontender to palpation. GI: Abdomen is soft, nontender and nondistended. Bowel sounds are positive. SKIN: No acute rash. NEUROLOGIC: Exam limited at the present time. IMPRESSION: 1. Gastrointestinal bleeding. 2. Portal hypertension. 3. Severe anemia. 4. Chronic obstructive pulmonary disease. 5. Pulmonary hypertension. 6. Txox-nb-meobkinu cardiomyopathy. 7. End-stage renal disease. PLAN: The patient appears comfortable this morning. She is not short of breath at rest. She does state to feeling much better overall. I did discuss the case with the night nurse at length. The night nurse stated that the patient had a very good night. I also told the nurse that I would like to see the patient out of bed more often. She agrees. On physical exam, the patient's lungs remain clear. Oxygen saturation on room air is 95%. As noted in yesterday's assessment, the echocardiogram was repeated on 06/27/2017. On that echocardiogram (post-dialysis, not on milrinone), the right ventricular systolic pressure was 60 mmHg. There is also moderate tricuspid regurgitation noted. Hopefully, the different sets of data will be enough to qualify the patient for home medications. Clinical status of the patient is significantly improved - compared to the initial presentation. Inputs by Cardiology and GI are noted. I will discuss the above with the entire ICU team in the next few moments. I will discuss the above with the attending physician later this morning. David Painting MD [facility]
--- NOTE | 2017-06-30 09:20 | PN ---
DATE: 06/28/2017 SUBJECTIVE: The patient is seen lying in bed, in the ICU. She is currently receiving dialysis. She is getting 2 units of blood in dialysis. She is complaining of abdominal pain. She is also complaining of pain in her hips. She still looks very very pale. She is denying any chest tightness at present. She denies any shortness of breath. She denies any nausea, vomiting. She reports she had a BM earlier, but it was not black. PHYSICAL EXAMINATION: GENERAL: Middle-aged lady lying in bed, in the ICU. VITAL SIGNS: Blood pressure 125/72, heart rate 81, respiratory rate 18, and temperature 98.7. HEENT: Normocephalic, atraumatic, positive pallor. NECK: Supple, no JVD. LUNGS: Bilateral equal air entry, no rales. CARDIAC: S1 and S2, regular rate and rhythm, positive murmur, no rub. ABDOMEN: Soft, positive tenderness in the epigastrium, bowel sounds present, no organomegaly. EXTREMITIES: No lower extremity edema. INTAKE AND OUTPUT: Not charted. LABORATORY DATA: WBC 8.7, hemoglobin 7,7, hematocrit 23, and platelets 93. Sodium 133, potassium 3.5, chloride 97, CO2 of 31, BUN 21, creatinine 3.5, glucose 86, calcium 7.1, total bili 1.4, AST 49, ALT 40, and albumin 2.2. Endoscopy showed esophagogastric landmarks were identified, erythematous mucosa in the gastric fundus, significantly engorged veins in the fundus and cardia with mosaic pattern, oozing of blood from mucosa overlying and engorged vein, three guy-clips applied. Liver and spleen scan was ordered. CURRENT MEDICATIONS: Corgard 20 mg daily, Dilaudid, octreotide, Protonix, Renagel, tramadol, and Zofran. ASSESSMENT: 1. Life threatenings, severe gastrointestinal bleed. 2. Persistent drop in hemoglobin. 3. No evidence of pulmonary hypertension after catheterization. 4. History of hypertension. 5. End-stage renal disease. 6. Hypocalcemia. 7. Remote history of pericardial effusion. 8. History of Clostridium difficile colitis. 9. History of thrombocytopenia. PLAN: 1. Continue dialysis, agree with 2 units of blood transfusion during dialysis. 2. Endoscopy report noted, status post clipping of bleeding varicose vein?. 3. Followup liver and spleen scan. 4. Continue to monitor in the ICU. 5. Monitor H&H. 6. Case discussed with the patient and son at bedside. More than 35 minutes was spent in the care of this critically ill patient. Mansi Rose MD
--- NOTE | 2017-06-30 09:34 | PN ---
DATE: 06/29/2017 SUBJECTIVE: a middle-aged lady sitting in chair in the ICU. PHYSICAL EXAMINATION: VITAL SIGNS: Blood pressure 123/63, heart rate 78, respiratory rate 18, temperature 98.3. HEENT: Normocephalic, atraumatic, positive pallor. NECK: Supple, no JVD. LUNGS: Bilateral equal air entry, basilar rales. CARDIAC: S1 and S2, regular rate and rhythm, no murmur, no rub. ABDOMEN: Soft, nondistended, positive epigastric tenderness, bowel sounds present. EXTREMITIES: No lower extremity edema. INTAKE AND OUTPUT: 1640/1300. LABORATORY DATA: WBC 6.9, hemoglobin 10, hematocrit 31.5, platelets 86. Sodium 131, potassium 3.4, chloride 95, CO2 of 29, BUN 19, creatinine 3.6, glucose 98, calcium 7.4, albumin 2.4, corrected calcium is 8.4, total bilirubin 2.3, AST 46, and ALT 39. CURRENT MEDICATIONS: Corgard 20, Dilaudid, octreotide, Protonix 40, Renagel, tramadol, and Zofran. ASSESSMENT: 1. Status post severe gastrointestinal bleed, life-threatening anemia. 2. Pulmonary hypertension. 3. Gastroesophageal varices. 4. Hyponatremia. 5. Hypokalemia. 6. Thrombocytopenia. 7. History of hypertension. 8. History of pericardial effusion. 9. Osteoarthritis. 10. Hypocalcemia. 11. End-stage renal disease. PLAN: 1. Hemoglobin is stable, the patient received 2 units of blood transfusion yesterday. We will continue to monitor H&H closely. 2. Long discussion with Dr. Rosado, workup consistent with pulmonary hypertension, although right heart cath did not show pulmonary hypertension. This is likely secondary to octreotide and milrinone that the patient was receiving prior to cardiac cath. 3. No indication for dialysis today. 4. Continue PPI. 5. Monitor electrolytes closely. 6. Restrict p.o. fluids. 7. Advance diet. 8. Dialysis again tomorrow. Discussed at length with multiple specialists, primary team, and family at bedside. More than 35 minutes spent in the care of this critically ill patient. Mansi Rose MD
--- NOTE | 2017-06-30 10:22 | NM ---
PROCEDURE: Liver-spleen scan HISTORY: r/o portal HTN COMPARISON: June 23, 2017 abdominal duplex study negative for portal vein thrombosis or occlusion. Normal directional flow above portal and hepatic veins 06/22/2017 CT abdomen and pelvis TECHNIQUE: 4 mCi technetium 99 M sulfur colloid administered intravenously. FINDINGS: Liver Heterogeneous uptake in what appears to be an enlarged liver. Spleen heterogeneous uptake in the normal size liver. Reticuloendothelial system. Marked shift of activity consistent with hepatocellular disease. IMPRESSION: Findings consistent with hepatocellular disease described in greater detail above. No focal hepatic or splenic abnormalities.
[2017-06-30] MEDS: Octreotide 1,250 MCG in Dextrose 5% In Water 250 ML IV SCH (10:30)
--- NOTE | 2017-06-30 11:26 | PN ---
DATE: 06/30/2017 PULMONARY PROGRESS NOTE SUBJECTIVE: The patient was seen and examined at bedside. She is not on oxygen. She is not complaining of shortness of breath and reports overall feeling a little better. PHYSICAL EXAMINATION: VITAL SIGNS: Temperature 98.4, respirations 20, blood pressure is 117/56, and oxygen saturation on room air is 95%. HEENT: Examination of head, eyes, ears, nose and throat: Normocephalic and atraumatic. CARDIOVASCULAR: S1 and S2. No S3. No murmurs. LUNGS: Clear bilaterally. EXTREMITIES: Mild edema. No cyanosis. No clubbing. GASTROINTESTINAL: Soft, nontender, and no organomegaly. SKIN: No acute skin rash. NEUROLOGIC: Limited at the present time. ASSESSMENT: 1. Gastrointestinal bleeding. 2. Portal hypertension. 3. Severe anemia. 4. Chronic obstructive pulmonary disease. 5. Pulmonary hypertension. PLAN: The patient is comfortable and not short of breath at rest. There is no active bleeding right now. Oxygen saturation on room air is 95%. She had an elevated ventricular systolic pressure and being worked up for pulmonary hypertension. Bassam Erazo MD
--- NOTE | 2017-06-30 13:18 | PN ---
DATE: 06/30/2017 LOCATION: The patient is in room number 370, bed 3. REASON FOR CONSULTATION AND FOLLOWUP: Gastrointestinal bleeding, anemia, moderate mitral regurgitation, tricuspid regurgitation, status post cardiac catheterization, portal hypertension, pulmonary hypertension, normal coronaries. SUBJECTIVE: The patient is lying flat in bed without chest pain, shortness of breath, or palpitation. Her abdominal pian is less now. PHYSICAL EXAMINATION: VITAL SIGNS: Blood pressure of 137/69, respirations of 20, pulse of 63, and temperature 98.9. HEENT: Head is normocephalic. Eyes: Pupils are normal. Conjunctivae are slightly pale. NECK: JVP low. Carotids are equal. THORAX: AP diameter normal. LUNGS: Clear. CARDIOVASCULAR: S1 and S2. No rub. ABDOMEN: Soft and tenderness in the epigastric area. EXTREMITIES: No clubbing. No cyanosis. LABORATORY DATA: WBC of 6.1, hemoglobin of 10.1, hematocrit of 30.9, and platelets of 84. Sodium of 125, potassium of 4.2, BUN of 28, and creatinine of 5.4. AST of 38 and ALT of 42. Total protein of 5.0 and albumin of 2.6. DIAGNOSTIC DATA: Echo on 06/23/2017, showed ejection fraction of 40% to 45%, mild to moderate mitral regurg, severe tricuspid regurg with pulmonary hypertension with RVSP 79 mmHg. However, cardiac catheterization done on this admission, showed PA pressure upper limit of normal, the difference between them. The patient's echo and cardiac catheterization pressure could be the reason the patient is on Primacor and the patient had fluid overload earlier. The patient had repeated echo off Primacor and it showed RVSP 60 mmHg. It was done on 06/27/2017, which also showed moderate tricuspid regurg. DIAGNOSES: Gastrointestinal bleeding, end-stage renal disease on dialysis, hyponatremia, pulmonary hypertension, tricuspid regurgitation, portal hypertension, and anemia. PLAN: The patient is on nadolol 20 mg p.o. daily, Protonix 40 IV daily, and Renagel 800 mg p.o. with meals. We will continue present therapy. We will follow with you. Po Bradford MD
[2017-06-30 14:11] VITALS: PULSE 71
[2017-06-30 18:06] VITALS: BP 157/69; TEMP 100.1
--- NOTE | 2017-06-30 23:41 | DS ---
HISTORY OF PRESENT ILLNESS: The patient is a 56-year-old, who initially came in because of generalized weakness, shortness of breath, and she had rectal bleeding. She came in with the hemoglobin of 4.1 on 06/21/2017. She was given two blood transfusions, but she was actively bleeding. Her hemoglobin only went up to 4.8, since she has a history of pulmonary hypertension and she was actively bleeding, she was given another three blood transfusions during dialysis and eventually, she was taken to endoscopy suite and had endoscopy done that showed venous ooze, dilemma was that there was no active arterial bleed, it could be because of right heart failure, she underwent cardiac catheterization at that point, probably the patient was dehydrated and has been on Primacor drip. Her right ventricular pressure did not actually show whether it is very high, however, her endoscopy picture did show dilated gastric veins. The patient was started on octreotide with good response and she stopped bleeding, but as soon as it was stopped it, she started to have bleeding again. She had second endoscopy done and had clips placed at bleeding sites. Since then, she has been stable after given blood transfusion. She was transferred out off ICU. She has been started on soft diet, seems to be tolerating. She has generalized weakness and difficulty walking, so she is being transferred to TCU for further rehab. PHYSICAL EXAMINATION: GENERAL: She is awake, alert, oriented, and communicative. VITAL SIGNS: She is afebrile, pulse 63, respirations 20, and blood pressure 137/69. LUNGS: Bilateral good airflow. No rhonchi or crackles. HEART: S1 and S2 audible. No murmur. ABDOMEN: Soft and nontender. No rebound. No guarding. NEUROLOGIC: The patient is awake, alert, oriented, and communicative. Moves all extremities. LABORATORY DATA: WBC 6.1, hemoglobin 10.1, hematocrit 30.9, and platelets of 54. Chemistry: Sodium 125, potassium 4.2, chloride 90, CO2 32, BUN 28, creatinine 5.4, and blood sugar of 90. LFTs shows alkaline phosphatase of 59. ASSESSMENT: 1. Gastrointestinal bleed probably petechiae in the gastric mucosa seen and currently the patient is on octreotide. 2. End-stage renal disease, on hemodialysis. 3. Pulmonary hypertension. 4. Severe tricuspid regurgitation. PLAN: The patient is being discharged to TCU where she will be monitored. We will monitor her H&H and follow her up there. Shawn Gomez MD
== END 2017-06-30 19:10 | DRG 377 ==
LOC: ED 20:37 → ERH 06-22 00:45 → CCU 06-22 03:30 → 3RSO 06-29 15:01
PROVIDERS: ADMIT Internal Medicine; ATTEND Internal Medicine
PROC: 0DJ08ZZ Inspection of Upper Intestinal Tract, Via Natural or Artificial Opening Endoscopic (ICD-10-PCS; 2017-06-23)
PROC: 5A1D70Z Performance of Urinary Filtration, Intermittent, Less than 6 Hours Per Day (ICD-10-PCS; 2017-06-25)
PROC: 4A023N8 Measurement of Cardiac Sampling and Pressure, Bilateral, Percutaneous Approach (ICD-10-PCS; 2017-06-26)
PROC: B2151ZZ Fluoroscopy of Left Heart using Low Osmolar Contrast (ICD-10-PCS; 2017-06-26)
PROC: B2111ZZ Fluoroscopy of Multiple Coronary Arteries using Low Osmolar Contrast (ICD-10-PCS; 2017-06-26)
PROC: 0W3P8ZZ Control Bleeding in Gastrointestinal Tract, Via Natural or Artificial Opening Endoscopic (ICD-10-PCS; principal; 2017-06-27 12:30)
DX: K29.71 Gastritis, unspecified, with bleeding (principal); N18.6 End stage renal disease; R57.8 Other shock; I13.2 Hypertensive heart and chronic kidney disease with heart failure and with stage 5 chronic kidney disease, or end stage renal disease; K76.6 Portal hypertension; E46 Unspecified protein-calorie malnutrition; I42.9 Cardiomyopathy, unspecified; D62 Acute posthemorrhagic anemia; E87.1 Hypo-osmolality and hyponatremia; K86.1 Other chronic pancreatitis; N25.81 Secondary hyperparathyroidism of renal origin; I67.1 Cerebral aneurysm, nonruptured; D69.6 Thrombocytopenia, unspecified; I50.810 Right heart failure, unspecified; I50.82 Biventricular heart failure; I27.20 Pulmonary hypertension, unspecified; I08.3 Combined rheumatic disorders of mitral, aortic and tricuspid valves; E86.0 Dehydration; K31.89 Other diseases of stomach and duodenum; K21.0 Gastro-esophageal reflux disease with esophagitis; J44.9 Chronic obstructive pulmonary disease, unspecified; D63.1 Anemia in chronic kidney disease; F17.210 Nicotine dependence, cigarettes, uncomplicated; E87.5 Hyperkalemia; M19.90 Unspecified osteoarthritis, unspecified site; K74.60 Unspecified cirrhosis of liver; M16.0 Bilateral primary osteoarthritis of hip; G89.29 Other chronic pain; E87.6 Hypokalemia; I85.00 Esophageal varices without bleeding; E83.42 Hypomagnesemia; E83.51 Hypocalcemia; Z99.2 Dependence on renal dialysis; Z68.21 Body mass index [BMI] 21.0-21.9, adult; Z86.010 Personal history of colon polyps; Z88.2 Allergy status to sulfonamides; Z88.6 Allergy status to analgesic agent; Z88.0 Allergy status to penicillin; Z88.7 Allergy status to serum and vaccine; Z86.19 Personal history of other infectious and parasitic diseases

== ENCOUNTER 2017-06-30 19:10 | Inpatient (IN) | payer OTHER, BC ==
[2017-06-30 20:02] VITALS: BMI 21.4
[2017-06-30] MEDS ORDERED: Octreotide 1,250 MCG in Dextrose 5% In Water 250 ML IV SCH (21:00)
[2017-06-30] MEDS ORDERED: SODIUM CHLORIDE 0.9% IVPB SCH (22:00)
[2017-06-30] MEDS ORDERED: OCTREOTIDE IVPB SCH (22:00)
[2017-06-30] MEDS: HYDROmorphone 0.5 mg/0.5 ml ISec IVP PRN (22:28)
[2017-07-01] MEDS: HYDROmorphone 0.5 mg/0.5 ml ISec IVP PRN ×4 (05:16→21:44)
[2017-07-01 06:15] LABS: BASO # 0.05 K/mm3 (0.0-2.0); BASO % 0.6 % (0.0-3.0); EOS # 0.2 (0.0-0.7); EOS % 2.2 % (1.5-5.0); GRAN # 6.29 (1.4-6.5); GRAN % 76.7 % (50.0-68.0); LYMPH # 0.7 (1.2-3.4); LYMPH % 7.9 % (22.0-35.0); MEAN CELL VOLUME 89.8 fl (80.0-105.0); MEAN CORPUSCULAR HEMOGLOBIN 29.7 pg (25.0-35.0); MEAN CORPUSCULAR HGB CONC 33.1 g/dl (31.0-37.0); MEAN PLATELET VOLUME 10.5 fl (7.0-11.0); MONO % 12.6 % (1.0-6.0); RED CELL DISTRIBUTION WIDTH 14.9 % (11.5-14.5); WHITE BLOOD COUNT 8.2 10^3/ul (4.5-11.0)
--- NOTE | 2017-07-02 01:40 | HP ---
HISTORY OF PRESENT ILLNESS: The patient is a 56 years old female who was admitted with active bleeding. Her hemoglobin was 4.5. She in total received 11 blood transfusions. She underwent endoscopy, was found to have generalized ooze. She was found to have gastric varicose vein. Initial impression was probably right ventricular failure along with tricuspid regurg, so had cath done, was not very impressive right ventricular pressure; however, echo did show she has pulmonary hypertension. PAST MEDICAL HISTORY: Patient does have past medical history of: 1. End-stage renal disease, on hemodialysis. 2. Pulmonary hypertension. 3. Chronic anemia. 4. History of C. diff in the past. ALLERGIES: SHE HAS MULTIPLE ALLERGIES INCLUDING ASPIRIN, LOVENOX, COUMADIN, CIPROFLOXACIN, CITRUS AND DERIVATIVE, ENALAPRIL, LATEX, PENICILLIN, SULFA, LEVOTHYROXINE, ACETAMINOPHEN, CODEINE, IODINE AND FLU VACCINE. MEDICATIONS AT HOME: She is on: 1. Omeprazole 40 mg daily. 2. Sensipar. 3. Dilaudid as needed. SOCIAL HISTORY: She lives with her fiance. She has 3 grownup children, one of them is a twin boy and a girl. She is active smoker. PHYSICAL EXAMINATION: GENERAL: She is awake, alert, oriented, communicative. VITAL SIGNS: She is afebrile, pulse 64, respiration 18, blood pressure 135/61. LUNGS: Bilateral good airflow. No rhonchi or crackle. HEART: S1, S2 audible. ABDOMEN: Soft, nontender. No rebound, no guarding. NEUROLOGIC: She is awake, alert, oriented, communicative. LABORATORY DATA: WBC is 8.2, hemoglobin 9.3, hematocrit 29, platelet 90. ASSESSMENT: 1. Status post gastrointestinal bleed. 2. Gastric varices. 3. Hypertension. 4. End-stage renal disease, on hemodialysis. PLAN: Currently, patient is on nadolol. She is getting Dilaudid as needed. She is on Protonix. She is getting octreotide drip as recommended by Dr. Rosado. We will slowly taper it down and we will follow up patient. Shawn Gomez MD
[2017-07-02] MEDS: HYDROmorphone 0.5 mg/0.5 ml ISec IVP PRN ×4 (05:01→21:29)
[2017-07-02] MEDS: Aritificial Tears (15ml) OU PRN ×2 (10:15→15:22)
--- NOTE | 2017-07-02 13:05 | PN ---
SUBJECTIVE: The patient is 56-year-old, seen and examined, doing well. Complained of generalized weakness. Complained of dry eyes. PHYSICAL EXAMINATION: VITAL SIGNS: She is afebrile, pulse 64, respirations 18 and blood pressure 128/71. LUNGS: Bilateral good airflow. No rhonchi or crackle. HEART: S1 and S2 audible. ABDOMEN: Soft. Nontender. No rebound. No guarding. NEUROLOGIC: The patient is awake, alert, oriented and communicative. Able to move all extremities. No leg edema. LABORATORY DATA: Her hemoglobin yesterday was 9.6, will be done tomorrow with dialysis. ASSESSMENT: 1. Status post GI bleed. 2. Gastric varices, status post 11 blood transfusion. 3. Hypertension. 4. End-stage renal disease, on hemodialysis. PLAN: Currently, the patient is octreotide drip. She is getting nadolol. Her diet has been advanced. We will monitor her H and H during dialysis in a.m. Shawn Gomez MD
--- NOTE | 2017-07-02 16:41 | PN ---
DATE: 07/02/2017 SUBJECTIVE: This patient was seen and evaluated earlier. Tolerating the diet. No bowel movements yet. Yesterday, she had bowel movements of normal color. No bleeding. Abdominal discomfort also has been much improved. PHYSICAL EXAMINATION: VITAL SIGNS: Temperature is 99, blood pressure is 125/57, pulse is 64, and respirations are 18. HEENT: Atraumatic. Anicteric. NECK: Supple. HEART: S1 and S2 heard. LUNGS: Bilateral air entry present. ABDOMEN: Soft. There is no mass palpable. No tenderness. IMPRESSION: This is a 56-year-old patient with end-stage renal disease on hemodialysis, history of pulmonary hypertension who presented with massive upper gastrointestinal bleeding nearly 11 units transfused. Right and left heart catheterization showed normal pressures, but the patient was on milrinone drip before and also with Sandostatin drip. The patient did have repeat echo, showed elevated pulmonary hypertension. The patient underwent upper gastrointestinal endoscopy and found to have mosaic pattern of the mucosa in the fundus with engorged veins with oozing of blood and the patient clinically was more suspect of gastric varices earlier and early gastritis versus Dieulafoy lesion, but the mucoid mosaic pattern favors more of portal hypertension. The decision was made to clip the patient, multiple clips were applied and the patient remains now stable. No further episode of bleeding now. The patient has been on Sandostatin, which has been discontinued after the present drip is over. The patient is on PPI, which will be switched over to Pepcid. We will continue to closely follow up his care and suggest further Pepcid. The patient is also on nadolol at 20 mg. The plan is to follow up. PLAN: If there is any reoccurrence of the bleeding, the patient will have a repeat hepatic wedge pressure study to rule out portal hypertension. I will continue to closely follow up her care and suggest further management based on the clinical course. ADDENDUM: The patient has increased Chromogranin A level and the patient has been advised to follow up tertiary center as advised before if the patient's Octreotide scan was negative. Thank you very much for allowing us to participate in the care of the patient. Jesus Manuel Rosado MD
[2017-07-03] MEDS: Pantoprazole 40 mg EC Tab PO SCH (05:19)
[2017-07-03] MEDS: HYDROmorphone 0.5 mg/0.5 ml ISec IVP PRN ×3 (05:21→20:14)
[2017-07-03 06:53] LABS: BASO # 0.06 K/mm3 (0.0-2.0); BASO % 0.9 % (0.0-3.0); EOS # 0.3 (0.0-0.7); EOS % 4.9 % (1.5-5.0); GRAN # 4.19 (1.4-6.5); GRAN % 64.8 % (50.0-68.0); HEMATOCRIT 29.6 % (36.0-48.0); LYMPH % 15.6 % (22.0-35.0); MEAN CELL VOLUME 89.7 fl (80.0-105.0); MEAN CORPUSCULAR HEMOGLOBIN 29.1 pg (25.0-35.0); MEAN CORPUSCULAR HGB CONC 32.4 g/dl (31.0-37.0); MEAN PLATELET VOLUME 10.4 fl (7.0-11.0); MONO # 0.9 (0.1-0.6); MONO % 13.8 % (1.0-6.0); RED CELL DISTRIBUTION WIDTH 14.7 % (11.5-14.5); WHITE BLOOD COUNT 6.5 10^3/ul (4.5-11.0)
--- NOTE | 2017-07-03 09:49 | PN ---
DATE: 07/01/2017 SUBJECTIVE: This patient was seen and evaluated earlier today. Discussed with the nursing staff . The patient did have a bowel movement of brown in color and she is taking some pureed diet. PHYSICAL EXAMINATION VITAL SIGNS: Temperature is 98.5, pulse 55, blood pressure 120/60. HEENT: Atraumatic. Anicteric. NECK: Supple. HEART: S1 and S2 heard. LUNGS: Bilateral air entry present. ABDOMEN: Soft. Mild tenderness present in the epigastric and right upper quadrant area. EXTREMITIES: No cyanosis or clubbing. NEUROLOGICAL: Alert and oriented. Moves all extremities. LABORATORY DATA: Hemoglobin 9.6, hematocrit 29, WBC 8.2 and platelets 90. IMPRESSION: This 56-year-old patient with end-stage renal disease on hemodialysis, has no further episodes of bleeding now. The patient has a history of pulmonary hypertension and the patient did have an endoscopically proven bleeding from the fundal area, had an engorged veins. Endoscopic appearance was more suggestive of portal hypertension; however, right heart catheterization with hepatic venous wedge pressure and hepatic vein pressure was reported as negative and normal. However, the patient was on octreotide now. This sometimes can have a false value. PLAN: The plan is to follow up of the hemoglobin and hematocrit. Would consider repeating the hepatic venous pressure and wedge pressure if there is any recurrence of the bleeding. The patient is on octreotide, which we will discontinue after the present bag is over. The patient is on nadolol 20 mg only. There is a consent of giving this in the sitting of pulmonary hypertension, but lower dose we can maintain it at that time as long as Cardiology also agrees with that. Thank you very much for allowing us to participate in the care of the patient. Jesus Manuel Rosado MD
[2017-07-03 14:34] LABS: CALCIUM 8.6 mg/dL (8.4-10.5); MAGNESIUM 1.7 mg/dL (1.7-2.2); PHOSPHOROUS 4.6 mg/dL (2.5-4.5); POTASSIUM 4.2 mmol/L (3.6-5.0); TOTAL PROTEIN 5.7 g/dL (5.8-8.3)
--- NOTE | 2017-07-03 23:41 | PN ---
DATE: SUBJECTIVE: The patient is a 56-year-old, seen and examined, and complain of bilateral hip pain. No more rectal bleeding. Eating well and tolerating. No abdominal pain. Octreotide has been discontinued. PHYSICAL EXAMINATION: VITAL SIGNS: She is afebrile, pulse 53, respirations 14, and blood pressure 122/66. LUNGS: Bilateral fair airflow. No rhonchi or crackles. HEART: S1 and S2 audible. ABDOMEN: Soft and nontender. No rebound. No guarding. NEUROLOGIC: She is awake, alert, oriented, and able to ambulate and complain of bilateral hip pain. LABORATORY DATA: WBC 6.5, hemoglobin 9.6, hematocrit 29.6, and platelets of 112. Chemistry: Sodium 126, potassium 4.2, chloride 91, CO2 of 25, BUN 36, creatinine 7.4, and blood sugar of 97. ASSESSMENT: 1. Status post upper gastrointestinal bleed from gastric varices. 2. End-stage renal disease, on hemodialysis. 3. Hypertension. 4. Bilateral congenital hip disease. 5. Anemia, status post multiple transfusions secondary to blood loss. PLAN: We will continue on current medication. We will intermittently check H and H. We will follow up the patient in a.m. Shawn Gomez MD
--- NOTE | 2017-07-04 03:21 | CON ---
DATE: 07/03/2017 REASON FOR CONSULTATION: Anemia, need for dialysis, severe hyponatremia, and recent GI bleed. HISTORY OF PRESENTING ILLNESS: A 56-year-old lady seen in the Transitional Care Unit. The patient was initially admitted to the medical side with severe anemia, hemoglobin of 4, severe GI bleed, and life-threatening GI bleed. The patient was found to have variceal bleed, pulmonary hypertension, and portal hypertension. The patient received several units of PRBCs. Now, she is currently in the Transitional Care Unit for rehabilitation and strengthening. She is seen walking around in the hallway. She is feeling a little bit better. She still has severe hip pain. She denies any abdominal pain. She denies any nausea or vomiting. PAST MEDICAL AND SURGICAL HISTORY: Hypertension, pericardial effusion, pericardial window, chronic thrombocytopenia, ESRD, severe anemia, osteoarthritis, and GI bleed. FAMILY HISTORY: Noncontributory. SOCIAL HISTORY: Current smoker, no alcohol use, and no IV drug abuse. ALLERGIES: ASPIRIN, CIPRO, ENALAPRIL, HEPARIN, LATEX, PENICILLIN, SULFA, SYNTHROID, TYLENOL, CODEINE, LOVENOX, AND IODINE. CURRENT MEDICATIONS: Zofran, tramadol, sevelamer, Protonix, Dilaudid, Corgard, and Benadryl. REVIEW OF SYSTEMS: All systems are reviewed, pertinent positives as mentioned in the history of presenting illness, rest is unremarkable. PHYSICAL EXAMINATION: GENERAL: Pale, weak appearing middle-aged lady sitting in a chair. VITAL SIGNS: Blood pressure 126/64, heart rate 50, respiratory rate 14, and temperature 97.9. HEENT: Normocephalic and atraumatic, positive pallor. NECK: Supple. No JVD. LUNGS: Bilateral equal air entry, basilar rales. CARDIAC: S1 and S2, regular rate and rhythm. No murmur. No rub. ABDOMEN: Soft, nondistended, and nontender. Bowel sounds present. EXTREMITIES: No lower extremity edema. INTAKE AND OUTPUT: Not charted. LABORATORY DATA: WBC 6.5, hemoglobin 9.6, hematocrit 29.6, and platelets 112. Sodium 126, potassium 4.2, chloride 91, CO2 of 25, BUN 36, creatinine 7.4, glucose 97, calcium 8.6, phosphorus 4.6, magnesium 1.7, and albumin 2.9. ASSESSMENT: 1. Severe hyponatremia. 2. Anemia, recent gastrointestinal bleed, hemoglobin stable. 3. Hypertension controlled. 4. Portal hypertension. 5. End-stage renal disease. PLAN: 1. Stable dialysis. 2. Continue Corgard. 3. Restrict p.o. fluids. 4. Monitor sodium. Thank you for the courtesy of this consultation. We will follow this patient with you. Mansi Rose MD
--- NOTE | 2017-07-04 03:58 | PN ---
DATE: 07/03/2017 SUBJECTIVE: This patient was seen and evaluated earlier today. The patient did have bowel movements brown in color. No further episodes of bleeding. PHYSICAL EXAMINATION: VITAL SIGNS: Temperature is 98.1, pulse is 94 and blood pressure 96/60. HEENT: Atraumatic. Anicteric. NECK: Supple. HEART: S1 and S2 heard. There is a systolic murmur present in the left sternal border. EXTREMITIES: No cyanosis. No clubbing. No edema. NEUROLOGIC: Alert and oriented. LABORATORY DATA: Hemoglobin 9.6, hematocrit 29.6, WBC 6.5 and platelets 112. BUN 36, creatinine 7.4. RECOMMENDATIONS: 1. The patient is on nadolol 10 mg, to continue that. 2. The patient has history of questionable hypertension and status post bleeding. The patient does have engorged veins and with mosaic pattern of the mucosa. The patient does have hypertension. The patient on nadolol 20 mg. Close follow up of the patient. 3. The patient has elevated chromogranin A level but negative octreotide scan. Would benefit from tertiary care evaluation. The patient's hemoglobin is stable. We will change the PPI to Pepcid 20 mg daily. Involve renal disease, and we will continue closely followup. Follow up of the hemoglobin and hematocrit. Thank you very much for allowing me to participate in the care of the patient. Jesus Manuel Rosado MD
[2017-07-04] MEDS: Pantoprazole 40 mg EC Tab PO SCH (05:27)
[2017-07-04] MEDS: HYDROmorphone 0.5 mg/0.5 ml ISec IVP PRN ×3 (05:32→21:56)
--- NOTE | 2017-07-04 13:06 | PN ---
DATE: SUBJECTIVE: The patient is currently seen lying comfortable in bed in the TCU. She is complaining of a mild headache. She no longer has any abdominal pain. She has no dark stools. Her hemoglobin has remained stable in the 9-10 range. The patient continues to remain hyponatremic likely secondary to her end-stage renal disease. MEDICATIONS: Medication list reviewed. The patient is currently on artificial tears, Benadryl, Corgard, Dilaudid p.r.n., Protonix, Renagel, Ultram, and Zofran. OBJECTIVE: VITAL SIGNS: Blood pressure 133/56, heart rate 50, temperature 98.3, and respiratory rate 18. HEENT: Exam shows her to be normocephalic and atraumatic. Conjunctivae are pale. Sclerae are nonicteric. NECK: Supple. No neck vein distention. CHEST: Clear to auscultation and percussion. No rales, no rhonchi or wheezing. CARDIOVASCULAR: Regular rate and rhythm with TR/MR/AI. ABDOMEN: Soft. Bowel sounds normal. No rebound or guarding. No masses. No tenderness on palpation. EXTREMITIES: Show a left upper extremity AV fistula. Positive thrill. Positive bruit. No lower extremity edema, cyanosis or clubbing. LABORATORY DATA AND IMAGING STUDIES: CBC from yesterday white blood cell count of 6.5, hemoglobin stable at 9.6, and platelet count is 112,000. Chemistries continued to show a low sodium, sodium was 126, potassium 4.2, chloride 91, CO2 of 25, BUN 36 with creatinine of 7.4, calcium is 8.6, phosphorus of 4.6 acceptable, and magnesium is 1.7. Liver enzymes show normal AST and ALT. Mild elevation of bilirubin at 2.0. Alkaline phosphatase is 585. Glucose is 97. ASSESSMENT: 1. Status post severe upper gastrointestinal bleed thought to be secondary to portal hypertensive gastropathy. The patient appears to have stabilized. She had received multiple units of packed red blood cells when she was on acute care to stabilize her hemoglobin. She continues on protein pump inhibition therapy. 2. Hyponatremia: This is likely secondary to end-stage renal disease. The patient will continue dialyzing on a standard sodium bath and I expect her sodium level to rise into the low normal range. 3. History of anemia: The patient will continue receiving maximum dose of Aranesp. This is secondary to her recent GI bleed and secondary to chronic kidney disease. 4. History of hypertension, controlled. 5. History of portal hypertension appears to be stable. 6. History of chronic headaches: The patient has an intermittent headache as per her baseline. 7. History of pericardial effusion, status post pericardial window, appears to be stable. PLAN: 1.. Continue routine therapy as per TCU protocol. 2. Continue Monday, Monday, and Monday dialysis. 3. Continue to monitor labs with dialysis. 4. Continue Corgard. 5. I have asked the patient to voluntarily restrict her p.o. fluid intake in light of her hyponatremia. Deon Mathews MD
--- NOTE | 2017-07-04 16:44 | CP.PCM.PN ---
<Jennifer Barron - Last Filed: 07/04/17 16:42> Subjective - Date & Time of Evaluation Date of Evaluation: 07/04/17 Time of Evaluation: 10:35 - Subjective Subjective: S&E at bedside this am, no N/V or abdominal pain at this time, last BM was last night, no bleeding. C/O headache, no visual changes or dizziness. Tolerating oral intake, c/o hip pain, chronic. Objective - Vital Signs/Intake and Output Vital Signs (last 24 hours): Temp Pulse Resp BP Pulse Ox 98.3 F 50 L 18 133/56 L 100 07/04/17 06:00 07/04/17 10:20 07/04/17 06:00 07/04/17 10:20 07/04/17 06:00 Intake and Output: 07/04/17 07/04/17 06:59 18:59 Intake Total 420 Balance 420 - Medications Medications: Current Medications Artificial Tears (Artificial Tears) 1 ml OU Q6H PRN; Protocol PRN Reason: Dry eyes Last Admin: 07/02/17 15:22 Dose: 2 drop Diphenhydramine HCl (Benadryl) 25 mg PO Q6 PRN; Protocol PRN Reason: Itching / Pruritus Last Admin: 07/03/17 20:33 Dose: 25 mg Hydromorphone HCl (Dilaudid) 0.5 mg IVP Q4H PRN PRN Reason: Moderate pain 4-7 Last Admin: 07/04/17 15:13 Dose: 0.5 mg Nadolol (Corgard) 20 mg PO DAILY [facility] Last Admin: 07/04/17 10:20 Dose: Not Given Ondansetron HCl (Zofran Inj) 4 mg IVP Q6H PRN PRN Reason: Nausea/Vomiting Pantoprazole Sodium (Protonix Ec Tab) 40 mg PO 0600 [facility] PRN Reason: Protocol Last Admin: 07/04/17 05:27 Dose: 40 mg Sevelamer HCl (Renagel) 800 mg PO WM [facility] Last Admin: 07/04/17 12:25 Dose: 800 mg Tramadol HCl (Ultram) 50 mg PO Q6 PRN PRN Reason: Moderate pain 4-7 Last Admin: 07/03/17 00:31 Dose: 50 mg - Labs Labs: 07/03/17 06:30 07/03/17 14:16 - Constitutional Appears: No Acute Distress - Head Exam Head Exam: NORMOCEPHALIC - Eye Exam Eye Exam: Normal appearance. absent: Scleral icterus - ENT Exam ENT Exam: Mucous Membranes Moist - Neck Exam Neck Exam: Normal Inspection - Respiratory Exam Respiratory Exam: Decreased Breath Sounds, NORMAL BREATHING PATTERN. absent: Respiratory Distress - Cardiovascular Exam Cardiovascular Exam: +S1, +S2 - GI/Abdominal Exam GI & Abdominal Exam: Soft, Tenderness (on palpation, hand developer rebound or guarding), Normal Bowel Sounds. absent: Guarding, Organomegaly, Rebound - Extremities Exam Extremities Exam: absent: Calf Tenderness - Neurological Exam Neurological Exam: Alert, Awake, Oriented x3 - Skin Skin Exam: Dry, Warm Assessment and Plan - Assessment and Plan (Free Text) Assessment: ASSESSMENT: Severe Anemia secondary to GI bleeding S/P EGD X2, initial : 06/23/17, portal htn gastropathy w/blood oozing from vein/ repeat EGD on 06/27/17: (+) bleeding /with engorged veins fundus & cardia s/p 3 hemoclips S/P Cardiac cath: negative, no evidence of pulmonary htn ESRD on Hemodailysis H/O colon polyps COPD H/O Chronic Pancreatitis H/O GERD HTN PLAN: continue diet as tolerated monitor H/H and for overt GI bleeding continue Protonix 40 mg daily on Nadolol Tertiary care FU Seen and discussed w/ Dr. Rosado. <Jesus Manuel Rosado V - Last Filed: 07/04/17 23:54> Objective - Vital Signs/Intake and Output Vital Signs (last 24 hours): Temp Pulse Resp BP Pulse Ox 98.5 F 50 L 16 133/56 L 100 07/04/17 10:00 07/04/17 10:20 07/04/17 10:00 07/04/17 10:20 07/04/17 10:00 Intake and Output: 07/04/17 07/05/17 18:59 06:59 Intake Total 420 Balance 420 - Medications Medications: Current Medications Artificial Tears (Artificial Tears) 1 ml OU Q6H PRN; Protocol PRN Reason: Dry eyes Last Admin: 07/02/17 15:22 Dose: 2 drop Diphenhydramine HCl (Benadryl) 25 mg PO Q6 PRN; Protocol PRN Reason: Itching / Pruritus Last Admin: 07/04/17 21:58 Dose: 25 mg Hydromorphone HCl (Dilaudid) 0.5 mg IVP Q4H PRN PRN Reason: Moderate pain 4-7 Last Admin: 07/04/17 21:56 Dose: 0.5 mg Nadolol (Corgard) 20 mg PO DAILY [facility] Last Admin: 07/04/17 10:20 Dose: Not Given Ondansetron HCl (Zofran Inj) 4 mg IVP Q6H PRN PRN Reason: Nausea/Vomiting Pantoprazole Sodium (Protonix Ec Tab) 40 mg PO 0600 [facility] PRN Reason: Protocol Last Admin: 07/04/17 05:27 Dose: 40 mg Sevelamer HCl (Renagel) 800 mg PO WM [facility] Last Admin: 07/04/17 17:32 Dose: 800 mg Tramadol HCl (Ultram) 50 mg PO Q6 PRN PRN Reason: Moderate pain 4-7 Last Admin: 07/03/17 00:31 Dose: 50 mg - Labs Labs: 07/03/17 06:30 07/03/17 14:16 Attending/Attestation - Attestation I have personally seen and examined this patient.: Yes I have fully participated in the care of the patient.: Yes I have reviewed all pertinent clinical information, including history, physical exam and plan: Yes Notes (Text): this is an addendum to a progress report dictated by Herlinda Barron APN. On examination abdomen was soft no tenderness Patient did have bowel movement brown stool no bleeding Will discuss with the construction secretary regarding atenolol and pulmonary hypertension I discussed at length with the patient regarding referral to tertiary care center in view of the complexity of the nature of the bleeding possible pulmonary hypertension and portal hypertension. Would change Protonix to Pepcid once daily in view of the renal dysfunction Thank you very much for allowing us to participate in the care of the patient 07/04/17 23:50
[2017-07-05] MEDS: HYDROmorphone 0.5 mg/0.5 ml ISec IVP PRN ×4 (04:03→22:15)
[2017-07-05] MEDS: Pantoprazole 40 mg EC Tab PO SCH (05:49)
--- NOTE | 2017-07-05 08:47 | PN ---
DATE: 07/04/2017 SUBJECTIVE: The patient is a 56-year-old, seen and examined, complain of bilateral hip pain and swelling. She states no medicine is working. She is eating and tolerating. No rectal bleeding. No nausea or vomiting. No diarrhea. PHYSICAL EXAMINATION VITAL SIGNS: She is afebrile, pulse of 50, respirations of 16, and blood pressure 133/56. LUNGS: Bilateral fair airflow. No rhonchi or crackles. HEART: S1 and S2 audible. ABDOMEN: Soft and nontender. No rebound. No guarding. NEUROLOGIC: She is awake, alert and oriented. Able to communicate and ambulate with the walker. LABORATORY DATA: There is no new lab available today. We will order for one CBC for tomorrow during hemodialysis. ASSESSMENT: 1. Status post upper gastrointestinal bleed. 2. Status post endoscopy. 3. Status post blood loss anemia and multiple blood transfusion. 4. Hypertension. 5. End-stage renal disease on hemodialysis. 6. Chronic obstructive pulmonary disease. PLAN: Currently, the patient is on nadolol, was given analgesics, she is on Protonix. Discussed with Dr. Rosado. [facility] We will provide all the CDs for further management to prevent GI bleed in future. Shawn Gomez MD
--- NOTE | 2017-07-05 13:34 | CP.PCM.PN ---
Subjective - Date & Time of Evaluation Date of Evaluation: 07/05/17 Time of Evaluation: 10:05 - Subjective Subjective: S&E at bedside, had BM prior to my arrival and soft formed, no blood. No N/V or abdominal pain. Awaiting to go to dialyses. No acute overnight events. Objective - Vital Signs/Intake and Output Vital Signs (last 24 hours): Temp Pulse Resp BP Pulse Ox 98.3 F 50 L 16 140/62 97 07/05/17 10:00 07/05/17 10:00 07/05/17 10:00 07/05/17 10:00 07/05/17 10:00 - Medications Medications: Current Medications Artificial Tears (Artificial Tears) 1 ml OU Q6H PRN; Protocol PRN Reason: Dry eyes Last Admin: 07/02/17 15:22 Dose: 2 drop Diphenhydramine HCl (Benadryl) 25 mg PO Q6 PRN; Protocol PRN Reason: Itching / Pruritus Last Admin: 07/05/17 09:45 Dose: 25 mg Famotidine (Pepcid) 20 mg PO DAILY [facility] Hydromorphone HCl (Dilaudid) 0.5 mg IVP Q4H PRN PRN Reason: Moderate pain 4-7 Last Admin: 07/05/17 12:48 Dose: 0.5 mg Nadolol (Corgard) 20 mg PO DAILY [facility] Last Admin: 07/05/17 09:47 Dose: Not Given Ondansetron HCl (Zofran Inj) 4 mg IVP Q6H PRN PRN Reason: Nausea/Vomiting Sevelamer HCl (Renagel) 800 mg PO WM [facility] Sucralfate (Carafate Oral Susp) 1 gm PO HS [facility] Tramadol HCl (Ultram) 50 mg PO Q6 PRN PRN Reason: Moderate pain 4-7 Last Admin: 07/03/17 00:31 Dose: 50 mg - Labs Labs: 07/03/17 06:30 07/03/17 14:16 - Constitutional Appears: No Acute Distress - Eye Exam Eye Exam: Normal appearance. absent: Scleral icterus - ENT Exam ENT Exam: Mucous Membranes Moist - Respiratory Exam Respiratory Exam: NORMAL BREATHING PATTERN. absent: Respiratory Distress - Cardiovascular Exam Cardiovascular Exam: +S1, +S2 - GI/Abdominal Exam GI & Abdominal Exam: Soft. absent: Guarding, Tenderness, Organomegaly, Rebound - Extremities Exam Extremities Exam: absent: Pedal Edema - Neurological Exam Neurological Exam: Alert, Awake, Oriented x3 - Skin Skin Exam: Dry, Warm Assessment and Plan - Assessment and Plan (Free Text) Assessment: ASSESSMENT: Severe Anemia secondary to GI bleeding S/P EGD X2, initial : 06/23/17, portal htn gastropathy w/blood oozing from vein/ repeat EGD on 06/27/17: (+) bleeding /with engorged veins fundus & cardia s/p 3 hemoclips S/P Cardiac cath: negative, no evidence of pulmonary htn ESRD on Hemodailysis H/O colon polyps COPD H/O Chronic Pancreatitis H/O GERD HTN PLAN: continue diet as tolerated monitor H/H and for overt GI bleeding D/C Protonix in view of renal disorder, will put on Pecid 20 mg in am and a short course of Carafate 1 gm before bedtime for 6 weeks only. Discussed w/ Dr. Gomez, pt and LONNIE Laguerre. on Nadolol [facility] Seen and discussed w/ Dr. Rosado.
--- NOTE | 2017-07-05 14:23 | PN ---
DATE: 07/05/2017 SUBJECTIVE: The patient is seen sitting in chair. She is awake. She is alert. She is comfortable. She denies any nausea or vomiting. She is eating. She denies any melanotic stool. PHYSICAL EXAMINATION: GENERAL: Middle-aged lady sitting in chair. VITAL SIGNS: Blood pressure 140/62, heart rate 50, respiratory rate 16, and temperature 98. HEENT: Normocephalic, atraumatic. NECK: Supple, no JVD. LUNGS: Bilateral equal air entry, no rales. CARDIAC: S1 and S2, regular rate and rhythm, no murmur, no rub. ABDOMEN: Soft, nondistended, and nontender, bowel sounds present. EXTREMITIES: No lower extremity edema. LABORATORY DATA: WBC 6.5, hemoglobin 9.6, hematocrit 29.6, and platelets 112. Sodium 126, potassium 4.2, chloride 91, CO2 25, BUN 36, creatinine 7.4, glucose 97, and calcium 8.6. ASSESSMENT AND PLAN: 1. Dialysis today. 2. Restrict p.o. fluids to 1500 mL per day. 3. Monitor H&H. 4. Continue physical therapy. Mansi Rose MD
[2017-07-05 14:28] LABS: BASO # 0.04 K/mm3 (0.0-2.0); BASO % 0.8 % (0.0-3.0); EOS # 0.4 (0.0-0.7); EOS % 8.7 % (1.5-5.0); GRAN # 3.15 (1.4-6.5); GRAN % 63.9 % (50.0-68.0); HEMATOCRIT 28.5 % (36.0-48.0); LYMPH # 0.9 (1.2-3.4); LYMPH % 18.1 % (22.0-35.0); MEAN CELL VOLUME 88.5 fl (80.0-105.0); MEAN CORPUSCULAR HEMOGLOBIN 28.9 pg (25.0-35.0); MEAN CORPUSCULAR HGB CONC 32.6 g/dl (31.0-37.0); MEAN PLATELET VOLUME 10.5 fl (7.0-11.0); MONO # 0.4 (0.1-0.6); MONO % 8.5 % (1.0-6.0); RED CELL DISTRIBUTION WIDTH 14.5 % (11.5-14.5); WHITE BLOOD COUNT 4.9 10^3/ul (4.5-11.0)
[2017-07-05 14:44] LABS: BILIRUBIN,TOTAL 1.3 mg/dL (0.2-1.3); CALCIUM 8.7 mg/dL (8.4-10.5); MAGNESIUM 1.6 mg/dL (1.7-2.2); PHOSPHOROUS 3.4 mg/dL (2.5-4.5); POTASSIUM 3.6 mmol/L (3.6-5.0); TOTAL PROTEIN 5.2 g/dL (5.8-8.3)
--- NOTE | 2017-07-05 20:31 | PN ---
DATE: SUBJECTIVE: The patient 56-year-old, seen and examined, complained of bilateral hip pain. No more nausea, vomiting. No diarrhea. No rectal bleeding. PHYSICAL EXAMINATION VITAL SIGNS: The patient is afebrile, pulse is 53, respirations are 18, and blood pressure is 159/61. LUNGS: Bilateral fair airflow. No rhonchi or crackles. HEART: S1 and S2 audible. ABDOMEN: Soft and nontender. No rebound and no guarding. NEUROLOGIC: The patient is awake, alert, oriented, able to communicate. Ambulates with a walker. LABORATORY DATA: WBC is 4.9, hemoglobin is 9.3, hematocrit is 28.5, and platelets are 159. Chemistry: Sodium is 130, potassium is 3.6, chloride is 94. CO2 is 29, BUN is 27, and creatinine is 6.3. Blood sugar is 155. Magnesium is 1.6. ASSESSMENT: 1. Status post gastrointestinal bleed, status post endoscopy and had clipping done of gastric petechiae. 2. Gastric varices. 3. Right ventricular dilatation. 4. Pulmonary hypertension. 5. Chronic obstructive pulmonary disease. 6. Bilateral congenital hip disease. PLAN: I will request Dr. Wiggins to evaluate the patient. We will continue her on stool softener. She has been started on Carafate and nadolol. Analgesic as needed. Her hemoglobin seems to be stable. Discharge plan on Monday and [facility]. Shawn Gomez MD
[2017-07-05] MEDS: Sucralfate 1 gm/10 ml Oral Susp UD PO SCH (22:16)
[2017-07-06] MEDS: HYDROmorphone 0.5 mg/0.5 ml ISec IVP PRN ×2 (08:32→22:47)
--- NOTE | 2017-07-06 16:59 | CP.PCM.PN ---
Subjective - Date & Time of Evaluation Date of Evaluation: 07/06/17 Time of Evaluation: 11:05 - Subjective Subjective: S&E at bedside this am, no reports of overt GI bleeding, having BM w/ no reports of bleeding. No N/V or abdominal pain. No acute overnight events reported. Objective - Vital Signs/Intake and Output Vital Signs (last 24 hours): Temp Pulse Resp BP Pulse Ox 98.4 F 52 L 20 144/69 94 L 07/06/17 16:21 07/06/17 16:21 07/06/17 16:21 07/06/17 16:21 07/06/17 16:21 Intake and Output: 07/06/17 07/06/17 06:59 18:59 Intake Total 480 Balance 480 - Medications Medications: Current Medications Artificial Tears (Artificial Tears) 1 ml OU Q6H PRN; Protocol PRN Reason: Dry eyes Last Admin: 07/02/17 15:22 Dose: 2 drop Diphenhydramine HCl (Benadryl) 25 mg PO Q6 PRN; Protocol PRN Reason: Itching / Pruritus Last Admin: 07/05/17 23:34 Dose: 25 mg Famotidine (Pepcid) 20 mg PO DAILY [facility] Last Admin: 07/06/17 10:21 Dose: 20 mg Hydromorphone HCl (Dilaudid) 0.5 mg IVP Q4H PRN PRN Reason: Moderate pain 4-7 Last Admin: 07/06/17 08:32 Dose: 0.5 mg Nadolol (Corgard) 20 mg PO DAILY [facility] Last Admin: 07/06/17 10:20 Dose: 20 mg Ondansetron HCl (Zofran Inj) 4 mg IVP Q6H PRN PRN Reason: Nausea/Vomiting Sevelamer HCl (Renagel) 800 mg PO WM [facility] Last Admin: 07/06/17 08:25 Dose: 800 mg Sucralfate (Carafate Oral Susp) 1 gm PO HS [facility] Last Admin: 07/05/17 22:16 Dose: 1 gm Tramadol HCl (Ultram) 50 mg PO Q6 PRN PRN Reason: Moderate pain 4-7 Last Admin: 07/03/17 00:31 Dose: 50 mg - Labs Labs: 07/05/17 14:15 07/05/17 14:15 - Constitutional Appears: No Acute Distress - Head Exam Head Exam: NORMOCEPHALIC - Eye Exam Eye Exam: Normal appearance. absent: Scleral icterus - ENT Exam ENT Exam: Mucous Membranes Moist - GI/Abdominal Exam GI & Abdominal Exam: Soft. absent: Tenderness - Extremities Exam Extremities Exam: absent: Calf Tenderness, Pedal Edema - Neurological Exam Neurological Exam: Alert, Awake, Oriented x3 - Skin Skin Exam: Dry, Warm Assessment and Plan - Assessment and Plan (Free Text) Plan: ASSESSMENT: Severe Anemia secondary to GI bleeding S/P EGD X2, initial : 06/23/17, portal htn gastropathy w/blood oozing from vein/ repeat EGD on 06/27/17: (+) bleeding /with engorged veins fundus & cardia s/p 3 hemoclips S/P Cardiac cath: negative, no evidence of pulmonary htn ESRD on Hemodailysis H/O colon polyps COPD H/O Chronic Pancreatitis H/O GERD HTN PLAN: continue diet as tolerated monitor H/H and for overt GI bleeding continue on Pecid 20 mg in am and a short course of Carafate 1 gm before bedtime for 6 weeks only. Discussed w/patient this am on Nadolol Tertiary care FU: [facility]/ Dr. Burk Seen and discussed w/ Dr. Rosado.
--- NOTE | 2017-07-06 19:09 | PN ---
DATE: SUBJECTIVE: The patient is a 56-year-old, seen and examined, and eating and tolerating. No more rectal bleeding. No abdominal pain. Complained of generalized weakness. Complained of bilateral hip pain. She was evaluated by Dr. Wiggins because of her complicated medical issues. According to him, she is not a candidate of extensive surgical intervention. PHYSICAL EXAMINATION: VITAL SIGNS: She is afebrile, pulse 52, respirations 20, and blood pressure 144/69. LUNGS: Bilateral good airflow. No rhonchi or crackles. HEART: S1 and S2 audible. ABDOMEN: Soft and nontender. No rebound. No guarding. NEUROLOGIC: She is awake, alert, oriented, communicative, and walks with the walker. ASSESSMENT: 1. Status post gastrointestinal bleed. 2. Statu post endoscopy and clipping of her bleeding site. 3. Gastric varices. 4. Pulmonary hypertension. 5. End-stage renal disease, on hemodialysis. 6. Chronic anemia. PLAN: The patient is clinically stable, ambulating, and eating and tolerating. H and H seems to be stable. I will order one CBC for tomorrow. If she is stable, she will be discharged home tomorrow after dialysis. Shawn Gomez MD
--- NOTE | 2017-07-06 20:16 | PN ---
DATE: 07/06/2017 SUBJECTIVE: The patient is seen sitting in chair. She is awake. She is alert. She is comfortable. PHYSICAL EXAMINATION: VITAL SIGNS: Blood pressure 144/69, heart rate 52, respiratory rate 20, temperature 98.4. NECK: Supple, no JVD. LUNGS: Bilateral equal air entry. EXTREMITIES: No lower extremity edema. LABORATORY DATA: No new labs. CURRENT MEDICATIONS: Benadryl, Carafate, Corgard 20 daily, Dilaudid, Pepcid, Renagel, tramadol, Zofran. ASSESSMENT: 1. Status post severe life-threatening gastrointestinal bleed. 2. Portal hypertension. 3. History of hypertension. 4. History of pericardial effusion. 5. End-stage renal disease. PLAN: 1. Continue Corgard to control portal hypertension. 2. Monitor H and H. 3. Dialysis tomorrow. 4. Physical therapy. 5. Discharge planning. Mansi Rose MD
[2017-07-06] MEDS: Sucralfate 1 gm/10 ml Oral Susp UD PO SCH (21:55)
[2017-07-07] MEDS: HYDROmorphone 0.5 mg/0.5 ml ISec IVP PRN ×3 (04:50→18:37)
[2017-07-07 05:50] VITALS: RESP 18; O2SAT 100
[2017-07-07 14:38] LABS: BASO # 0.13 K/mm3 (0.0-2.0); BASO % 2.9 % (0.0-3.0); EOS # 0.4 (0.0-0.7); EOS % 8.4 % (1.5-5.0); GRAN # 2.69 (1.4-6.5); GRAN % 60.8 % (50.0-68.0); HEMATOCRIT 28.1 % (36.0-48.0); LYMPH % 22.2 % (22.0-35.0); MEAN CELL VOLUME 89.5 fl (80.0-105.0); MEAN CORPUSCULAR HEMOGLOBIN 28.7 pg (25.0-35.0); MEAN PLATELET VOLUME 9.9 fl (7.0-11.0); MONO # 0.3 (0.1-0.6); MONO % 5.7 % (1.0-6.0); RED CELL DISTRIBUTION WIDTH 14.9 % (11.5-14.5); WHITE BLOOD COUNT 4.4 10^3/ul (4.5-11.0)
--- NOTE | 2017-07-07 15:01 | PN ---
DATE: 07/07/2017 SUBJECTIVE: The patient is seen sitting in bed. She is awake. She is alert. She is comfortable. She denies any nausea or vomiting. She denies any abdominal pain. She complains of pain in her hips. PHYSICAL EXAMINATION: GENERAL: Elderly lady lying in bed. VITAL SIGNS: Blood pressure 128/59, heart rate 49, respiratory rate 18, and temperature 98.1. HEENT: Normocephalic, atraumatic, positive pallor. NECK: Supple, no JVD. LUNGS: Bilateral equal entry, no rales. CARDIAC: S1 and S2, regular rate and rhythm, no murmur, no rub. ABDOMEN: Obese, distended, soft, and nontender, bowel sounds present. EXTREMITIES: No lower extremity edema. INTAKE AND OUTPUT: Not charted. LABORATORY DATA: No labs available. ASSESSMENT: 1. End-stage renal disease, dialysis today. 2. Status post severe life-threatening gastrointestinal bleed. 3. Portal hypertension. 4. Chronic thrombocytopenia. 5. History of hypertension. PLAN: 1. Dialysis today. 2. Monitor H&H. 3. Continue Corgard. 4. Physical therapy. Mansi Rose MD
[2017-07-07 15:10] LABS: BILIRUBIN,TOTAL 1.1 mg/dL (0.2-1.3); CALCIUM 8.5 mg/dL (8.4-10.5); POTASSIUM 3.3 mmol/L (3.6-5.0); TOTAL PROTEIN 5.4 g/dL (5.8-8.3)
--- NOTE | 2017-07-07 16:58 | CP.PCM.PN ---
<Jennifer Barron - Last Filed: 07/07/17 16:57> Subjective - Date & Time of Evaluation Date of Evaluation: 07/07/17 Time of Evaluation: 09:00 - Subjective Subjective: S&E earlier at bedside, had BM this am, no bleeding,, denies N/V or abdominal pain, has intermittent hip pain, seen by orthopedist, no surgical intervention at this time till other medical issues are resolved. No acute overnight events reported. Objective - Vital Signs/Intake and Output Vital Signs (last 24 hours): Temp Pulse Resp BP Pulse Ox 98.1 F 49 L 18 138/59 L 100 07/07/17 05:49 07/07/17 05:49 07/07/17 05:49 07/07/17 05:49 07/07/17 05:49 Intake and Output: 07/07/17 07/07/17 06:59 18:59 Intake Total 480 Balance 480 - Medications Medications: Current Medications Artificial Tears (Artificial Tears) 1 ml OU Q6H PRN; Protocol PRN Reason: Dry eyes Last Admin: 07/02/17 15:22 Dose: 2 drop Diphenhydramine HCl (Benadryl) 25 mg PO Q6 PRN; Protocol PRN Reason: Itching / Pruritus Last Admin: 07/07/17 10:13 Dose: 25 mg Famotidine (Pepcid) 20 mg PO DAILY [facility] Last Admin: 07/07/17 09:58 Dose: 20 mg Hydromorphone HCl (Dilaudid) 0.5 mg IVP Q4H PRN PRN Reason: Moderate pain 4-7 Last Admin: 07/07/17 09:56 Dose: 0.5 mg Nadolol (Corgard) 20 mg PO DAILY [facility] Last Admin: 07/07/17 09:52 Dose: Not Given Ondansetron HCl (Zofran Inj) 4 mg IVP Q6H PRN PRN Reason: Nausea/Vomiting Sevelamer HCl (Renagel) 800 mg PO WM [facility] Last Admin: 07/07/17 12:07 Dose: 800 mg Sucralfate (Carafate Oral Susp) 1 gm PO HS [facility] Last Admin: 07/06/17 21:55 Dose: 1 gm Tramadol HCl (Ultram) 50 mg PO Q6 PRN PRN Reason: Moderate pain 4-7 Last Admin: 07/03/17 00:31 Dose: 50 mg - Labs Labs: 07/07/17 14:25 07/07/17 14:25 - Constitutional Appears: No Acute Distress - Head Exam Head Exam: NORMOCEPHALIC - Eye Exam Eye Exam: Normal appearance. absent: Scleral icterus - ENT Exam ENT Exam: Mucous Membranes Moist - Neck Exam Neck Exam: Normal Inspection - Respiratory Exam Respiratory Exam: Clear to Ausculation Bilateral, NORMAL BREATHING PATTERN. absent: Respiratory Distress - Cardiovascular Exam Cardiovascular Exam: +S1, +S2 - GI/Abdominal Exam GI & Abdominal Exam: Soft, Normal Bowel Sounds. absent: Guarding, Tenderness, Organomegaly, Rebound - Extremities Exam Extremities Exam: absent: Calf Tenderness, Pedal Edema - Neurological Exam Neurological Exam: Alert, Awake, Oriented x3 Assessment and Plan - Assessment and Plan (Free Text) Assessment: ASSESSMENT: Severe Anemia secondary to GI bleeding S/P EGD X2, initial : 06/23/17, portal htn gastropathy w/blood oozing from vein/ repeat EGD on 06/27/17: (+) bleeding /with engorged veins fundus & cardia s/p 3 hemoclips S/P Cardiac cath: negative, no evidence of pulmonary htn ESRD on Hemodailysis H/O colon polyps COPD H/O Chronic Pancreatitis H/O GERD HTN PLAN: continue diet as tolerated monitor H/H and for overt GI bleeding continue on Pecid 20 mg in am and a short course of Carafate 1 gm before bedtime for 6 weeks only. Discussed w/patient this am on Nadolol [facility] contact information given re: Dr. Deon Mock: oncologist [phone] [facility] Seen and discussed w/ Dr. Rosado. <Jesus Manuel Rosado V - Last Filed: 07/07/17 22:31> Objective - Vital Signs/Intake and Output Vital Signs (last 24 hours): Temp Pulse Resp BP Pulse Ox 97.3 F L 52 L 18 147/61 100 07/07/17 10:00 07/07/17 10:00 07/07/17 10:00 07/07/17 10:00 07/07/17 10:00 - Labs Labs: 07/07/17 14:25 07/07/17 14:25 Attending/Attestation - Attestation I have personally seen and examined this patient.: Yes I have fully participated in the care of the patient.: Yes I have reviewed all pertinent clinical information, including history, physical exam and plan: Yes Notes (Text): this patient was seen and evaluated earlier. This is an addendum to the GI progress report dictated by Jennifer Barron APN. No further episodes of bleeding Abdomen soft no tenderness Discussed with the Dr. Hoffman regarding Nadolol view of this portal hypertension Patient would benefit from tertiary care referral. Contact information for liver unit in [facility] was given to the patient. Patient also has elevated chromogranin A level with a negative octreotide. Possible neuroendocrine lesion has to be evaluated. Patient was referred to Dr. Mock in [facility] patient mentioned to me that she was familiar with the hospital and she would follow up there 07/07/17 22:23
[2017-07-07 17:06] VITALS: BP 147/61; PULSE 52; TEMP 97.3
--- NOTE | 2017-07-08 03:21 | DS ---
HISTORY OF PRESENT ILLNESS: The patient is a 56-year-old with multiple medical problems. She was admitted on 06/22/2017 with GI bleed with hemoglobin of 4.5. She received four blood transfusions. She kept on bleeding. Since she has a history of pulmonary hypertension, she was given a total of four blood transfusions. She was taken to an endoscopy suite and was found to have petechiae in her stomach. There was oozing. There was no area to cauterize. She was started on Sandostatin since impression was she has right heart failure and pulmonary hypertension. She was evaluated by air traffic coordinator, who did cardiac cath and was told that this is not because of pulmonary hypertension. However, she kept on bleeding, she was given another multiple blood transfusions. She was taken to the endoscopy suite again and her oozing site was clamped. She remains on octreotide and we restarted her on nadolol. The patient was deconditioned, so she was transferred to TCU on 06/30/2017. She remains stable and was receiving hemodialysis and doing well. PHYSICAL EXAMINATION: GENERAL: She is awake, alert, oriented, and communicative. VITAL SIGNS: She is afebrile, pulse 52, respirations 18, and blood pressure 147/61. LUNGS: Bilateral fair airflow. No rhonchi or crackle. HEART: S1 and S2 audible. ABDOMEN: Soft and nontender. No rebound. No guarding. NEUROLOGIC: She is awake, alert, oriented, able to communicate, walks with the walker because of her bilateral congenital hip deformity and osteoarthritis. LABORATORY DATA: WBC is 4.4, hemoglobin 9, hematocrit 28.1, and platelets 140. Chemistry: Sodium 130, potassium 3.3, chloride 93, CO2 of 31, BUN 18, creatinine 4.1, and blood sugar of 115. ASSESSMENT: 1. Gastrointestinal bleed. 2. Gastric varices. 3. Pulmonary hypertension. 4. Chronic obstructive pulmonary disease. 5. Active smoker. 6. End-stage renal disease, on hemodialysis. PLAN: The patient is being discharged home today on Protonix 40 daily. She will continue her Renagel and Sensipar. She will follow up with Dr. Rosado, who will arrange for follow up with [place] [facility]. Shawn Gomez MD [facility] # [id number]
== END 2017-07-07 20:59 | disposition home or self-care (01) | DRG 299 ==
LOC: TRCU 19:10
PROVIDERS: ADMIT Internal Medicine; ATTEND Internal Medicine
PROC: F07Z9FZ Gait Training/Functional Ambulation Treatment using Assistive, Adaptive, Supportive or Protective Equipment (ICD-10-PCS; principal; 2017-07-01)
PROC: F07M6ZZ Therapeutic Exercise Treatment of Musculoskeletal System - Whole Body (ICD-10-PCS; 2017-07-01)
PROC: F08Z2ZZ Grooming/Personal Hygiene Treatment (ICD-10-PCS; 2017-07-01)
PROC: F08Z1ZZ Dressing Techniques Treatment (ICD-10-PCS; 2017-07-01)
DX: I86.4 Gastric varices (principal); N18.6 End stage renal disease; I13.2 Hypertensive heart and chronic kidney disease with heart failure and with stage 5 chronic kidney disease, or end stage renal disease; D69.6 Thrombocytopenia, unspecified; I27.29 Other secondary pulmonary hypertension; K76.6 Portal hypertension; I07.1 Rheumatic tricuspid insufficiency; E87.1 Hypo-osmolality and hyponatremia; K86.1 Other chronic pancreatitis; K92.2 Gastrointestinal hemorrhage, unspecified; D50.0 Iron deficiency anemia secondary to blood loss (chronic); F17.200 Nicotine dependence, unspecified, uncomplicated; I50.810 Right heart failure, unspecified; J44.9 Chronic obstructive pulmonary disease, unspecified; K21.9 Gastro-esophageal reflux disease without esophagitis; Z79.899 Other long term (current) drug therapy; Z86.010 Personal history of colon polyps; Z99.2 Dependence on renal dialysis; M19.90 Unspecified osteoarthritis, unspecified site; Q65.89 Other specified congenital deformities of hip

== ENCOUNTER 2017-07-29 13:32 | Inpatient (IN) | payer MEDICARE, BC ==
[2017-07-29 13:40] VITALS: BMI 24.5
--- NOTE | 2017-07-29 13:48 | ED PDOC ---
Arrival/HPI - General Time Seen by Provider: 07/29/17 13:35 Historian: Patient - History of Present Illness Narrative History of Present Illness (Text): 07/29/17 13:47 A 56 year old female, whose past medical history includes ESRD with hemodialysis on /, hypertension, COPD, chronic anemia, GERD, C. diff, chronic pancreatitis, and small brain aneurysm, presents to the emergency department complaining of generalized weakness. Patient reports she was on route to dialysis when she felt weak and near-syncopal. Patient was brought to the emergency room for further evaluation. Patient reports productive cough, loss of appetite and mild shortness of breath over the past week. Patient denies any fever, chills, nausea, vomiting, abdominal pain, urinary symptoms, hematochezia, chest pain or any other complaints. PMD: Dr. Gomez Time/Duration: Prior to Arrival Symptom Course: Unchanged Quality: Other Context: Other Past Medical History - Provider Review Nursing Documentation Reviewed: Yes - Past History Past History: Non-Contributing - Infectious Disease Hx of Infectious Diseases: None, C.diff - Tetanus Immunization Tetanus Immunization: Up to Date - Cardiac Hx Hypertension: Yes - Pulmonary Hx Chronic Obstructive Pulmonary Disease (COPD): Yes - Neurological Hx Neurological Disorder: No - HEENT Hx HEENT Disorder: Yes Hx Blind: Yes (parial, left eye) - Renal Hx Renal Failure: Yes (Hemodialysis (M,W,F)) - Endocrine/Metabolic Hx Endocrine Disorders: Yes (parathyroid) - Hematological/Oncological Hx Blood Disorders: Yes Hx Anemia: Yes - Integumentary Hx Dermatological Disorder: No - Musculoskeletal/Rheumatological Hx Falls: No - Gastrointestinal Hx Gastrointestinal Disorders: Yes Hx Gastroesophageal Reflux: Yes - Genitourinary/Gynecological Hx Genitourinary Disorders: No - Psychiatric Hx Psychophysiologic Disorder: No Hx Substance Use: No - Surgical History Hx Cholecystectomy: Yes Hx Orthopedic Surgery: Yes (bilateral hips) Other/Comment: left arm fistula placemnt, c-sectionx2, tonsilectomy - Anesthesia Hx Anesthesia Reactions: No Hx Malignant Hyperthermia: No - Suicidal Assessment Feels Threatened In Home Enviroment: No Family/Social History - Physician Review Nursing Documentation Reviewed: Yes Family/Social History: No Known Family HX Smoking Status: Heavy Smoker > 10 Cigarettes Daily Hx Alcohol Use: No Hx Substance Use: No Hx Substance Use Treatment: No Allergies/Home Meds Allergies/Adverse Reactions: Allergies aspirin Allergy (Severe, Verified 07/29/17 13:47) ANAPHYLAXIS ciprofloxacin Allergy (Severe, Verified 07/29/17 13:47) ANAPHYLAXIS Aurora And Derivatives Allergy (Severe, Verified 07/29/17 13:47) ANAPHYLAXIS enalapril Allergy (Severe, Verified 07/29/17 13:47) HIVES heparin Allergy (Severe, Verified 06/30/17 20:04) ANAPHYLAXIS latex Allergy (Severe, Verified 07/29/17 13:47) ANAPHYLAXIS Penicillins Allergy (Severe, Verified 07/29/17 13:47) ANAPHYLAXIS Sulfa (Sulfonamide Antibiotics) Allergy (Severe, Verified 07/29/17 13:47) ANAPHYLAXIS levothyroxine sodium [From Levoxyl] Allergy (Intermediate, Verified 07/29/17 13: 47) RASH acetaminophen Allergy (Mild, Verified 07/29/17 13:47) RASH codeine Allergy (Mild, Verified 06/30/17 20:04) RASH enoxaparin Allergy (Mild, Verified 06/30/17 20:04) RASH iodine Allergy (Mild, Verified 06/30/17 20:04) RASH influenza virus vaccine, specific Allergy (Verified 06/30/17 20:04) hives Home Medications: Home Meds Medication Instructions Recorded Confirmed Cinacalcet [Sensipar] 30 mg PO DAILY 07/29/17 07/29/17 Esomeprazole Magnesium [Nexium] 40 mg PO DAILY 07/29/17 07/29/17 Levocetirizine Dihydrochloride 5 mg PO DAILY 07/29/17 07/29/17 [Xyzal] Metoprolol Succinate [Toprol XL] 25 mg PO DAILY 07/29/17 07/29/17 Rosuvastatin Calcium [Crestor] 20 mg PO DAILY 07/29/17 07/29/17 Sevelamer Carbonate [Renvela] 800 mg PO DAILY 07/29/17 07/29/17 Review of Systems - Review of Systems Constitutional: Fatigue, Other (generalized weakness). absent: Fevers, Night Sweats Eyes: absent: Eye Pain Respiratory: SOB, Cough, Sputum, Wheezing Cardiovascular: HERBERT, Other (near-syncopal). absent: Chest Pain Gastrointestinal: Appetite Changes. absent: Abdominal Pain, Nausea, Vomiting, Hematochezia Genitourinary Female: absent: Dysuria, Frequency, Hematuria Musculoskeletal: absent: Neck Pain Skin: absent: Rash Neurological: absent: Headache, Dizziness, Focal Weakness Hemo/Lymphatic: absent: Easy Bleeding Physical Exam - Physical Exam Narrative Physical Exam (Text): Head: Atraumatic. Normocephalic. Eyes: PERRL. EOMI. Conjunctivae are not pale. ENT: Mucous membranes are moist and intact. Oropharynx is clear and symmetric. Neck: Supple. Full ROM. No JVD. No lymphadenopathy. Cardiovascular: Regular rate. Regular rhythm. Systolic murmur. No rubs, or gallops. Distal pulses are 2+ and symmetric. Pulmonary/Chest: No evidence of respiratory distress. Bilateral rhonchi at apices. There is expiratory wheezing. No accessory muscle usage. Abdominal: Soft and non-distended. There is no tenderness. No rebound, guarding, or rigidity. No organomegaly. Good bowel sounds. Back: No CVA tenderness. Extremities: Bilateral LE non-pitting edema. No cyanosis. No clubbing. Full range of motion in all extremities. No calf tenderness. Skin: Skin is warm and dry. No petechiae. No purpura. Neurological: Alert, awake, and oriented to person, place, time, and situation. Normal speech. Motor and sensory exam intact. Psychiatric: Good eye contact. Normal interaction, affect, and behavior. Vital Signs Reviewed: Yes Vital Signs Temp Pulse Resp BP Pulse Ox 07/29/17 15:49 63 18 135/71 100 07/29/17 15:14 61 18 138/75 100 07/29/17 13:39 97.9 F 63 18 142/77 100 Temperature: Afebrile Blood Pressure: Normal Pulse: Regular Respiratory Rate: Normal Appearance: Positive for: Well-Appearing, Non-Toxic, Comfortable Pain Distress: None Mental Status: Positive for: Alert and Oriented X 3 Medical Decision Making ED Course and Treatment: 07/29/17 13:47 Impression: A 56 year old female with generalized weakness. Patient reports cough, loss of appetite and shortness of breath. Plan includes nebulizer treatment and lab work. Differential Diagnosis included but are not limited to: PNA vs. Asthma vs. Bronchitis vs. Pulmonary edema vs. Anemia vs. CHF Plan: -- Chest xray -- EKG -- Labs -- Blood and Urine culture -- Influenza A B Stat -- Duoneb -- Reassess and disposition Prior Visits: Notes and results from previous visits were reviewed. Patient last seen in the ED on 06/21/17 and hospitalized to the ICU for for GI bleed. Progress Notes: Report Date : 07/29/2017 15:02:49 Procedure: Chest xray Dictator : Jesu Ramirez MD IMPRESSION: Cardiomegaly/mild CHF. Increased interstitial markings compatible with lower airways disease. No discrete pulmonary infiltrates. Patient with wheezing and rhonchi noted on exam. Duoneb given with persistent wheezing then noted. Additional nebulizer ordered. Patient hyperkalemic, although EKG is grossly unchanged from previous EKGs. Patient scheduled for dialysis today, as BP stable and no respiratory distress , patient will be allowed to go to dialysis. Lactate elevated although wbc unremarkable and afebrile. Patient will be admitted for copd exacerbation. She currently denies any bleeding and initial Hgb is unremarkable. No significant abdominal pain noted. Patient case d/w PMD Dr. Gomez. UA pending. Remains afebrile. No headache. No meningeal signs. Repeat lactate remains elevated, although patient afebrile, initial WBC unremarkable, afebrile on re-evam. She is not hypotensive and not tachycardic. Will repeat lactate after dialysis. CT chest to be ordered to exclude infiltrate, ua pending, patient states she does make urine. No skin cellulitis noted. 07/29/17 16:12 - Lab Interpretations Lab Results: 07/29/17 14:25 07/29/17 14:25 Lab Results 07/29/17 15:40: pO2 39, VBG pH 7.36, VBG pCO2 48.0, VBG HCO3 27.1, VBG Total CO2 28.6 H, VBG O2 Sat (Calc) 75.9 H, VBG Base Excess 1.0, VBG Potassium 5.0, Sodium 133.0, Chloride 95.0 L, Glucose 88, Lactate 4.0 H*, FiO2 21.0, Venous Blood Potassium 5.0 07/29/17 14:25: Sodium 136, Chloride 94 L, Potassium 5.6 H* D, Carbon Dioxide 23 , Anion Gap 25 H, BUN 36 H, Creatinine 5.9 H, Est GFR ( Amer) 9, Est GFR (Non-Af Amer) 7, Random Glucose 59 L, Calcium 8.1 L, Total Bilirubin 1.9 H, AST 40 H D, ALT 30, Alkaline Phosphatase 546 H, Lactate Dehydrogenase 636, Total Creatine Kinase 60, Troponin I 0.03 D, NT-Pro-B Natriuret Pep Pending, Total Protein 7.1, Albumin 3.9, Globulin 3.2, Albumin/Globulin Ratio 1.2 07/29/17 14:25: pO2 44, VBG pH 7.38, VBG pCO2 40.0, VBG HCO3 23.7, VBG Total CO2 24.9, VBG O2 Sat (Calc) 82.6 H, VBG Base Excess -1.3 L, VBG Potassium 5.7 H , Sodium 132.0, Chloride 96.0 L, Glucose 61 L, Lactate 4.7 H*, FiO2 21.0, Venous Blood Potassium 5.7 H 07/29/17 14:25: PT 14.7 H, INR 1.34 H, APTT 31.7 07/29/17 14:25: Influenza Typ A,B (EIA) Negative for flu a/b 07/29/17 14:25: WBC 8.0 D, RBC 4.31, Hgb 12.2 D, Hct 38.7, MCV 89.8, MCH 28.3 , MCHC 31.5, RDW 16.0 H, Plt Count 161, MPV 10.4, Gran % 72.2 H, Lymph % (Auto) 15.2 L, [place] % (Auto) 8.7 H, Eos % (Auto) 3.0, Baso % (Auto) 0.9, Gran # 5.79, Lymph # 1.2, [place] # 0.7 H, Eos # 0.2, Baso # 0.07 07/29/17 14:22: POC Glucose (mg/dL) 55 L I have reviewed the lab results: Yes - RAD Interpretation Radiology Orders: 07/29/17 13:52 CHEST PORTABLE [RAD] Stat 07/29/17 16:06 CHEST W/O CONTRAST [CT] Stat - EKG Interpretation EKG Interpretation (Text): EKG at 13:48 normal sinus rhythm with left axis deviation, st, and t wave abnormality, prolonged qt Interpreted by ED Physician: Yes Type: 12 lead EKG Comparison: Com.w/previous EKG - Medication Orders Current Medication Orders: Albuterol/Ipratropium (Duoneb 3 Mg/0.5 Mg (3 Ml) Ud) 3 ml IH Q2H PRN PRN Reason: Shortness of Breath Albuterol/Ipratropium (Duoneb 3 Mg/0.5 Mg (3 Ml) Ud) 3 ml IH [id number] [facility] Atorvastatin Calcium (Lipitor) 80 mg PO DIN LEX Cinacalcet (Sensipar) 30 mg PO DAILY [facility] Levalbuterol HCl (Xopenex) 1.25 mg IH [id number] LEX Methylprednisolone (Solu-Medrol) 40 mg IV Q8 LEX Metoprolol Succinate (Toprol Xl) 25 mg PO DAILY [facility] Ondansetron HCl (Zofran Inj) 4 mg IVP Q6H PRN PRN Reason: Nausea/Vomiting Pantoprazole Sodium (Protonix Inj) 40 mg IVP DAILY LEX Sevelamer HCl (Renagel) 800 mg PO DAILY LEX Discontinued Medications Albuterol/Ipratropium (Duoneb 3 Mg/0.5 Mg (3 Ml) Ud) 3 ml IH STAT STA Stop: 07/29/17 13:54 Last Admin: 07/29/17 14:15 Dose: 3 ml Albuterol/Ipratropium (Duoneb 3 Mg/0.5 Mg (3 Ml) Ud) 3 ml IH STAT STA Stop: 07/29/17 14:55 Last Admin: 07/29/17 15:03 Dose: 3 ml - Scribe Statement The provider has reviewed the documentation as recorded by the Corinne Gant Provider Scribe Attestation: All medical record entries made by the Corinne were at my direction and personally dictated by me. I have reviewed the chart and agree that the record accurately reflects my personal performance of the history, physical exam, medical decision making, and the department course for this patient. I have also personally directed, reviewed, and agree with the discharge instructions and disposition. Disposition/Present on Arrival - Present on Arrival Any Indicators Present on Arrival: No History of DVT/PE: No History of Uncontrolled Diabetes: No Urinary Catheter: No History Surgical Site Infection Following: None - Disposition Have Diagnosis and Disposition been Completed?: Yes Diagnosis: COPD exacerbation, Hyperkalemia, ESRD (end stage renal disease) Patient Problems: Current Active Problems Problem Status Onset COPD exacerbation Acute ESRD (end stage renal disease) Acute Hyperkalemia Acute
[2017-07-29] MEDS ORDERED: Albuterol-Ipratrop 3 mg / 0.5 (3 ml) UD IH STA ×2 (13:53→14:54)
[2017-07-29 14:50] LABS: BASO # 0.07 K/mm3 (0.0-2.0); BASO % 0.9 % (0.0-3.0); EOS # 0.2 (0.0-0.7); GRAN # 5.79 (1.4-6.5); GRAN % 72.2 % (50.0-68.0); HEMATOCRIT 38.7 % (36.0-48.0); LYMPH # 1.2 (1.2-3.4); LYMPH % 15.2 % (22.0-35.0); MEAN CELL VOLUME 89.8 fl (80.0-105.0); MEAN CORPUSCULAR HEMOGLOBIN 28.3 pg (25.0-35.0); MEAN CORPUSCULAR HGB CONC 31.5 g/dl (31.0-37.0); MEAN PLATELET VOLUME 10.4 fl (7.0-11.0); MONO # 0.7 (0.1-0.6); MONO % 8.7 % (1.0-6.0)
[2017-07-29 14:51] LABS: VENOUS BLOOD GAS BASE EXCESS -1.3 mmol/L (0.0-2.0); VENOUS BLOOD PH 7.38 (7.32-7.43)
--- NOTE | 2017-07-29 15:04 | RAD ---
HISTORY: Shortness of breath. COMPARISON: 06/21/2017 FINDINGS: LUNGS: No discrete infiltrates. Parabronchial thickening identified. PLEURA: No significant pleural effusion identified, no pneumothorax apparent. CARDIOVASCULAR: Cardiomegaly, cephalization of pulmonary vascularity likely a component of acute congestive heart failure. OSSEOUS STRUCTURES: No significant abnormalities. VISUALIZED UPPER ABDOMEN: Normal. OTHER FINDINGS: None. IMPRESSION: Cardiomegaly/mild CHF. Increased interstitial markings compatible with lower airways disease. No discrete pulmonary infiltrates.
[2017-07-29 15:06] LABS: INR 1.34 (0.93-1.08); PARTIAL THROMBOPLASTIN TIME 31.7 Seconds (25.1-36.5)
[2017-07-29 15:12] LABS: TROPONIN I 0.03 ng/mL
[2017-07-29 15:13] LABS: ALB/GLOB RATIO 1.2 (1.1-1.8); BILIRUBIN,TOTAL 1.9 mg/dL (0.2-1.3); CALCIUM 8.1 mg/dL (8.4-10.5); POTASSIUM 5.6 mmol/L (3.6-5.0); TOTAL PROTEIN 7.1 g/dL (5.8-8.3)
[2017-07-29] MEDS ORDERED: Albuterol-Ipratrop 3 mg / 0.5 (3 ml) UD IH PRN (15:50)
[2017-07-29 15:51] LABS: VENOUS BLOOD PH 7.36 (7.32-7.43)
[2017-07-29] MEDS ORDERED: Vancomycin 1gm in NS 250ml 1 GM/250 ML BAG IVPB STA (16:14)
[2017-07-29] MEDS: Metoprolol Succinate 25 mg XL Tab PO SCH (21:35)
[2017-07-29] MEDS: MethylPREDNISolone 40 mg Vial IV SCH (21:38)
[2017-07-29] MEDS ORDERED: HYDROmorphone 0.5 mg/0.5 ml ISec IVP STA (23:08)
--- NOTE | 2017-07-30 00:29 | HP ---
HISTORY OF PRESENT ILLNESS: The patient is a 56-year-old known to me from our practice. Day before yesterday, I got a call that the patient is having shortness of breath. We ordered nebulizer treatment and nebulizer machine. Apparently, it did not make much difference. The patient is active smoker, so she came to Emergency Room because of increasing shortness of breath. Denies any fever or chills and no history of nausea or vomiting. She does have complain of generalized weakness, complain of feeling weak and dizzy. The patient was due for dialysis today, but because of generalized weakness and near syncope, she was diverted to bring her to Emergency Room. She does complain of cough and congestion, complain of decrease appetite. However, she has no fever or chills. PAST MEDICAL HISTORY: Significant for: 1. End-stage renal disease, on hemodialysis, she has Monday, , and Monday. She also has a history of COPD. 2. Pulmonary hypertension. 3. Chronic anemia. 4. Esophageal reflux disease. 5. History of small brain aneurysm. 6. History of AVM in the stomach. ALLERGIES: SHE IS ALLERGIC TO ASPIRIN, CIPRO, CITRUS DERIVATIVE, ENALAPRIL, HEPARIN, PENICILLIN, LATEX, SULFA, LEVOTHYROXINE, ACETAMINOPHEN, CODEINE, ENOXAPARIN, IODINE AND INFLUENZA VACCINE. MEDICATIONS AT HOME: She is on: 1. Xyzal 5 mg daily. 2. Metoprolol 25 mg daily. 3. Sensipar 30 mg daily. 4. Renvela 800 mg daily. 5. Crestor 20 mg daily. 6. Nexium 40 mg daily. SOCIAL HISTORY: She lives with her boyfriend, used to smoke very heavy and quit, but she restarted in 2013. She still smokes. PHYSICAL EXAMINATION GENERAL: Complaint of shortness of breath. VITAL SIGNS: She is afebrile, pulse 63, respiration 18, blood pressure 135/71. LUNGS: Bilateral expiratory rhonchi. HEART: S1, S2 audible. ABDOMEN: Soft, nontender. No rebound, no guarding. NEUROLOGIC: She is awake, alert, oriented, and able to communicate. LABORATORY EXAM: WBC is 8.0, hemoglobin 12, hematocrit 38, and platelet of 161. PT 14.7, INR 1.34. Chemistry: Sodium 136, potassium 5.6, chloride 94, CO2 of 23, BUN 36, and creatinine 5.9. Blood sugar of 59, calcium 8.1, and total bilirubin 1.4. ASSESSMENT: 1. Chronic obstructive pulmonary disease exacerbation. 2. Hypoxia. 3. Bronchospasm. 4. End-stage renal disease, on hemodialysis. 5. History of hypertension. 6. Gastroesophageal reflux disease. 7. History of gastrointestinal bleed requiring multiple blood transfusions. PLAN: The patient will be admitted, will give her nebulizer treatment, give her IV steroid. The patient will get emergent dialysis. We will follow up patient. Shawn Gomez MD
[2017-07-30] MEDS: Albuterol-Ipratrop 3 mg / 0.5 (3 ml) UD IH SCH ×3 (02:05→13:48)
[2017-07-30] MEDS: MethylPREDNISolone 40 mg Vial IV SCH ×3 (05:32→22:37)
[2017-07-30] MEDS: Levalbuterol 1.25 MG/3 ML Inhal Soln UD IH SCH ×3 (07:18→19:50)
[2017-07-30] MEDS: Metoprolol Succinate 25 mg XL Tab PO SCH (09:27)
--- NOTE | 2017-07-30 09:50 | CARD ---
APPROVED REPORT EKG Measurement Heart [id number] <Conclusion> Normal sinus rhythm Left axis deviation Moderate voltage criteria for LVH, may be normal variant ST & T wave abnormality, consider lateral ischemia Prolonged QT No change
[2017-07-30] MEDS: guaiFENesin DM 100 mg-10 mg/5 ml UD PO PRN (11:57)
--- NOTE | 2017-07-30 15:37 | CT ---
PROCEDURE: CT Chest without contrast HISTORY: Evaluate for possible infiltrates. COMPARISON: July 29, 2017. Single-view chest TECHNIQUE: Contiguous axial images were obtained through the chest without intravenous contrast enhancement. Sagittal and coronal reconstructions were performed. Radiation dose (DLP): 176.81 mGy-cm. This CT exam was performed using one or more of the following dose reduction techniques: Automated exposure control, adjustment of the mA and/or kV according to patient size, and/or use of iterative reconstruction technique. FINDINGS: LUNGS: Increased interstitial markings compatible with lower airways disease. No discrete pulmonary infiltrates. Linear atelectasis basilar segment right lower lobe, lateral segment left lower lobe. MEDIASTINUM: Unremarkable thoracic aorta. No aneurysm. Cardiomegaly. No evidence of acute, significant cardiovascular disease. Dilated IVC and hepatic vein suggests a component of right-sided failure. Main pulmonary artery unremarkable. No vascular congestion. No lymphadenopathy. PLEURA: No pleural fluid. No pneumothorax. BONES: No fracture. No destructive lesion. UPPER ABDOMEN: Grossly unremarkable. OTHER FINDINGS: Small thyroid nodule left thyroid lobe of uncertain etiology or significance. Elective ultrasound recommended. IMPRESSION: Peribronchial thickening without mucous plugging or discrete infiltrates. Areas of atelectasis both lung bases.
--- NOTE | 2017-07-30 21:12 | PN ---
DATE: 07/30/2017 SUBJECTIVE: The patient is a 56-year-old, seen and examined, lying in bed, still complain of cough congestion, productive cough with yellow phlegm, and still complain of having shortness of breath although she got dialysis yesterday evening. PHYSICAL EXAMINATION: VITAL SIGNS: She is afebrile, pulse 80, respirations 18, blood pressure 150/80 mmHg. LUNGS: Bilateral few expiratory rhonchi. HEART: S1 and S2 audible. ABDOMEN: Soft and nontender. No rebound. No guarding. NEUROLOGIC: The patient is awake, alert, and able to communicate. LABORATORY DATA: There is no new lab available today except her blood sugar is 240. CT scan of the chest is pending. ASSESSMENT: 1. Asthmatic bronchitis. 2. Chronic obstructive pulmonary disease. 3. Active smoker. 4. End-stage renal disease, on hemodialysis. 5. Chronic anemia. 6. Bilateral hip congenital deformity, giving rise to difficulty walking. PLAN: I will add doxycycline. We will continue her on nebulizer treatment. I will give her analgesics. We will follow up this patient in a.m. Shawn Gomez MD
--- NOTE | 2017-07-30 21:45 | CON ---
DATE: 07/30/2017 REFERRING PHYSICIAN: Shawn Gomez MD REASON FOR CONSULTATION: To provide dialysis service for a patient known to us who presents with COPD, bronchitis, and a near syncopal episode. HISTORY OF PRESENT ILLNESS: The patient is a 56-year-old female known to us for many years on outpatient dialysis. The patient has recently transition of care over from [facility] to [facility]. She dialyzes Monday, , Monday. The patient was coming into dialysis yesterday when she felt syncopal and short of breath. She was reverted to the emergency room, evaluated, felt to have an exacerbation of COPD, treated with inhalation therapy and steroids. No actual syncopal episode. The patient received her routine dialysis after being admitted to the hospital. She is currently seen on 3R. She is still complaining of shortness of breath with chest congestion and productive cough. The patient has had no fevers, chills, or sweats. PAST MEDICAL HISTORY: Significant for that of end-stage renal disease, on chronic maintenance dialysis, history of COPD with continued cigarette smoking, status post a recent upper GI bleed secondary to portal hypertensive gastropathy and AVM, history of hypertension with pulmonary hypertension. History of pericardial effusion, status post pericardial window. History of GERD. History of low platelet count, history of chronic headaches, history of chronic abdominal pain, history of secondary hyperparathyroidism and anemia. MEDICATIONS: At home include that of Xyzal, Toprol, Sensipar, Renvela, Crestor, and Nexium. ALLERGIES: THE PATIENT IS ALLERGIC TO ASPIRIN, CIPROFLOXACIN, CITRUS AND DERIVATIVES, ENALAPRIL, HEPARIN, LASIX, PENICILLIN, SULFA, LEVOXYL, TYLENOL, CODEINE, ENOXAPARIN, IODINE, AND INFLUENZA VIRUS VACCINE. MEDICATIONS: Presently in hospital include that of DuoNeb, Lipitor, Protonix, Renagel, Sensipar, Solu-Medrol, Toprol, Xopenex, and Zofran. SOCIAL HISTORY: The patient continues to smoke cigarettes on a daily basis despite being told that she should discontinue this habit, no history of recent alcohol use. FAMILY HISTORY: Noncontributory. REVIEW OF SYSTEMS: GENERAL: The patient states appetite and weight have been stable. ENT: Denies any hearing or visual problems. PULMONARY: Increasing shortness of breath over several days' duration. Positive cough with productive mucus. History of COPD, history of bronchitis. History of emphysema. CARDIAC: History of pericardial effusion, status post pericardial window. No history of known coronary artery disease. GI: History of GI bleeding. No recent bleeding. : End-stage renal disease. [employer]: Postmenopausal. ENDOCRINE: No history of diabetes, history of secondary hyperparathyroidism. MUSCULOSKELETAL: No complaints. NEURO: Negative for CVA, TIA, seizures. History of near-syncope as noted above. HEME/ONC: History of anemia secondary to chronic kidney disease. PSYCHIATRIC: Negative. PHYSICAL EXAMINATION GENERAL: The patient is currently seen on 3R. She is complaining of mild shortness of breath. She is sitting up in bed. She has just completed inhalation therapy treatment. She is receiving IV steroids. VITAL SIGNS: Blood pressure 148/79, temperature 98.8, respiratory rate 20 with a pulse of 69, pulse ox is 94%. HEENT: Shows her to be normocephalic, atraumatic. Conjunctivae are pink. Sclerae are nonicteric. Pupils are equal and reactive to light and accommodation. Extraocular muscles are intact. Posterior pharynx is normal. NECK: Supple. No neck vein distention. No thyromegaly. No lymphadenopathy. No bruits. CHEST: Scattered rhonchi, scattered wheezing. No rales. CARDIOVASCULAR: S1, S2 were normal. A soft systolic murmur in the left lower sternal border. No S3. No S4. No rub. ABDOMEN: Soft. Bowel sounds normal. No rebound. No guarding. No masses. EXTREMITIES: Show a left upper extremity AV fistula with positive pseudoaneurysm. Positive thrill. Positive bruit. No lower extremity cyanosis, clubbing, or edema. NEURO: Shows her to be alert, oriented x3 with no gross focal motor or sensory deficits. LABORATORY DATA AND IMAGING: Admitting chest x-ray shows mild CHF, but no consolidation. CBC: White blood cell count 8.0, hemoglobin is 12.2 with a platelet count of 161,000. Coags: PT of 14.7 with a PTT of 31.7. Admitting blood gas showed a pH of 7.36. PO2 was 39, likely venous blood gas with a bicarbonate level of 27. Of note, lactic acid was elevated at 4.0. Chemistries: Predialysis sodium 136, potassium 5.6. BUN 36 with creatinine of 5.9. Calcium is 8.1. Bilirubin mildly elevated at 1.9. Glucose is 59. BNP was elevated at 669,000. Troponins were negative. CPK was normal. Albumin was 3.9. Repeat potassium level was 5.0, again, prior to dialysis. Microbiology: Cultures are pending. Admitting EKG showed a normal sinus rhythm, left axis deviation, LVH, prolonged QT, unchanged. ASSESSMENT: 1. Endstage renal disease. Currently stable on three times a week dialysis. Again, stressed to the patient the compliance of coming to dialysis. The patient has transferred over to [facility] because of transportation related issues. Her next dialysis will be scheduled for 08/01/2017. 2. History of near syncope. This might be in the setting of respiratory distress, mild, with shortness of breath. The patient did not have any actual syncopal episode and she appears to be stable from a cardiac and neurological standpoint. 3. History of bronchitis with productive sputum. COPD exacerbation, and the patient with continued history of cigarette smoking. The patient once again cautioned to stop cigarette smoking. She will continue steroids and inhalation therapy. I will discuss with her primary care physician the possibility of starting antibiotic therapy empirically. I will give the patient Robitussin-DM presently. 4. History of hypertension and pulmonary hypertension, currently controlled. 5. History of chronic abdominal pain, none today. 6. History of chronic headaches, none today. 7. History of gastroesophageal reflux disease, currently stable on Protonix therapy. 8. History of secondary hyperparathyroidism. The patient will continue binder therapy and Sensipar. We will check her phosphorus level with her next set of dialysis labs. 9. History of anemia. She is status post a recent gastrointestinal bleed. She has anemia secondary to chronic kidney disease which appears to be stable. PLAN: 1. We will discuss with Dr. Iniguez the possibility of empiric antibiotic therapy in light of her productive sputum, perhaps, a bronchitis exacerbating her COPD in the setting of cigarette smoking. 2. Continue routine dialysis. She has a Monday, , Monday schedule. 3. Restart binder therapy and Sensipar. The patient will receive vitamin D on dialysis as per protocol. 4. Monitor labs with her dialysis treatments. 5. Followup cultures, both blood and sputum. Case discussed with Dr. Gomez. Case discussed with staff on 3R. Thank you for letting me partake and share in the care of our mutual patient. Deon Mathews MD
[2017-07-31] MEDS: guaiFENesin DM 100 mg-10 mg/5 ml UD PO PRN ×2 (01:51→14:04)
[2017-07-31] MEDS: Albuterol-Ipratrop 3 mg / 0.5 (3 ml) UD IH SCH ×4 (03:20→21:40)
[2017-07-31] MEDS: Pantoprazole 40 mg EC Tab PO SCH (05:16)
[2017-07-31] MEDS: MethylPREDNISolone 40 mg Vial IV SCH ×4 (05:16→23:26)
[2017-07-31] MEDS: Levalbuterol 1.25 MG/3 ML Inhal Soln UD IH SCH ×2 (08:32→14:24)
[2017-07-31] MEDS: Metoprolol Succinate 25 mg XL Tab PO SCH (09:26)
--- NOTE | 2017-07-31 19:00 | PN ---
DATE: SUBJECTIVE: The patient is a 56-year-old, seen and examined, still complain of pain in both hips. Complain of cough and congestion. Complain of generalized weakness. No nausea or vomiting. No diarrhea. No hemoptysis. No rectal bleeding. PHYSICAL EXAMINATION: VITAL SIGNS: She is afebrile, pulse 67, respirations 19, and blood pressure 146/85. LUNGS: Bilateral few expiratory rhonchi. HEART: S1 and S2 audible. ABDOMEN: Soft and nontender. No rebound. No guarding. NEUROLOGIC: The patient is awake, alert, oriented, and communicative. Able to move all extremities; however, she has difficulty walking and walks with a walker because of bilateral hip congenital deformity. LABORATORY DATA: Blood sugar is 169. Her blood cultures are negative. CT scan of the chest shows peribronchial thickening without mucus plugging or discrete infiltrate. ASSESSMENT: 1. Chronic obstructive pulmonary disease exacerbation. 2. Asthmatic bronchitis. 3. End-stage renal disease, on hemodialysis. PLAN: Currently, the patient is on doxycycline. She is getting nebulizer treatment. She is on IV steroid. She is on beta-edith. I will cut down her steroids to 40 q.12 hours. We will reevaluate the patient in a.m. If she seems to be stable, we will make discharge plan in a.m. Shawn Gomez MD
[2017-08-01 00:57] VITALS: RESP 20
[2017-08-01] MEDS: guaiFENesin DM 100 mg-10 mg/5 ml UD PO PRN ×2 (01:20→17:25)
[2017-08-01] MEDS: Albuterol-Ipratrop 3 mg / 0.5 (3 ml) UD IH SCH ×4 (03:30→20:04)
[2017-08-01] MEDS: Pantoprazole 40 mg EC Tab PO SCH (06:01)
[2017-08-01 07:18] LABS: GRAN # 8.55 (1.4-6.5); GRAN % 92.1 % (50.0-68.0); HEMATOCRIT 36.5 % (36.0-48.0); LYMPH # 0.5 (1.2-3.4); MEAN CELL VOLUME 89.9 fl (80.0-105.0); MEAN CORPUSCULAR HEMOGLOBIN 27.3 pg (25.0-35.0); MEAN CORPUSCULAR HGB CONC 30.4 g/dl (31.0-37.0); MEAN PLATELET VOLUME 9.4 fl (7.0-11.0); MONO # 0.3 (0.1-0.6); MONO % 2.9 % (1.0-6.0); PLATELET COUNT 155 10^3/uL (120.0-450.0); RED CELL DISTRIBUTION WIDTH 16.5 % (11.5-14.5); WHITE BLOOD COUNT 9.3 10^3/ul (4.5-11.0)
[2017-08-01 07:43] LABS: ALB/GLOB RATIO 1.3 (1.1-1.8); BILIRUBIN,TOTAL 1.4 mg/dL (0.2-1.3); CALCIUM 8.1 mg/dL (8.4-10.5); MAGNESIUM 1.9 mg/dL (1.7-2.2); PHOSPHOROUS 4.7 mg/dL (2.5-4.5); POTASSIUM 5.2 mmol/L (3.6-5.0); TOTAL PROTEIN 6.2 g/dL (5.8-8.3)
[2017-08-01 08:30] LABS: NEUTROPHIL 93 % (50.0-70.0); PLATELET ESTIMATE NORMAL (NORMAL)
[2017-08-01] MEDS: MethylPREDNISolone 40 mg Vial IV SCH (10:47)
[2017-08-01] MEDS: Metoprolol Succinate 25 mg XL Tab PO SCH (10:47)
--- NOTE | 2017-08-01 13:41 | PN ---
DATE: SUBJECTIVE: The patient is currently seen just having completed dialysis, 2.5 liters of fluid have been removed. The patient still continues to complain of some mild shortness of breath. She continues on antibiotic therapy for bronchitis and COPD exacerbation. The patient tells me that she is committed to stop cigarette smoking. MEDICATIONS: Medication list reviewed. The patient is currently on p.r.n. Dilaudid, IV doxycycline, albuterol, Lipitor, Protonix, Renagel, Robitussin p.r.n., Sensipar, Solu-Medrol, Toprol, Xopenex, and Zofran p.r.n. OBJECTIVE: INTAKE AND OUTPUT: Intake 900, output not charted. VITAL SIGNS: Blood pressure 143/79, temperature 97.9, pulse of 72, and respiratory rate of 20. HEENT: Exam shows her be normocephalic, atraumatic. Conjunctivae are pink. Sclerae nonicteric. NECK: Supple. No neck vein distention. CHEST: Scattered rhonchi and wheezing. No rales. CARDIOVASCULAR: S1 and S2 are normal. Soft systolic murmur at left lower sternal border. ABDOMEN: Soft. Bowel sounds are normal. No rebound or guarding. No masses. EXTREMITIES: Show a left upper extremity AV fistula. Positive thrill. Positive bruit. Pseudoaneurysm over her left upper extremity AV fistula. No lower extremity cyanosis, clubbing or edema. LABORATORY DATA AND IMAGING: CBC, white cell count today is 9.2 with hemoglobin of 11.1 and platelet count is 155,000. Chemistries today show sodium of 132, potassium 5.2, chloride 94 with CO2 of 23, BUN 39 with creatinine of 6.6, glucose is 163, calcium 8.1, phosphorus 4.7, and magnesium level 1.9. Bilirubin is 1.4 with alkaline phosphatase of 389. AST and ALT are normal. Albumin is 3.5. Microbiology: Blood cultures are negative at 48 hours. No sputum was sent. ASSESSMENT 1. End-stage renal disease. The patient will continue current dialysis 3 days a week. The patient is transferred to [facility] from [facility] for transportation related issues. Her next dialysis will likely be scheduled for 08/03/2017. 2. History of near syncope: The patient did not actually have an episode of syncope or loss of consciousness. 3. History of bronchitis with chronic obstructive pulmonary disease exacerbation: The patient has been a habitual cigarette smoker and now she states she is committed to stop smoking. The patient will continue IV antibiotic therapy, IV steroids, which are being tapered and inhalation therapy. 4. History of hypertension and pulmonary hypertension, currently controlled. 5. History of chronic abdominal pain, none today. 6. History of chronic headaches, none today. 7. History of gastroesophageal reflux disease, currently stable on PPI therapy. 8. History of secondary hyperparathyroidism: The patient will continue a renal diet, binder therapy and Sensipar. Her phosphorus level on today's labs is acceptable at 4.7. 9. History of anemia: Hemoglobin is actually stable and is at 11.1. Now Aranesp is necessary at this point in time. PLAN: 1. Discussed with Dr. Gomez, continue to taper steroids and continue inhalation therapy. 2. If the patient's situation continues to improve perhaps discharge her in the next 24-48 hours on oral antibiotic therapy with tapering doses of oral steroids. 3. Continue renal diet, Sensipar, and binder therapy. 4. Continue to monitor lab work on dialysis days pre-dialysis. 5. Followup blood cultures. Deon Mathews MD
[2017-08-01] MEDS: Levalbuterol 1.25 MG/3 ML Inhal Soln UD IH SCH ×2 (15:44→20:04)
[2017-08-01 18:15] VITALS: BP 120/65; PULSE 82; TEMP 97.8; O2SAT 95
--- NOTE | 2017-08-02 08:50 | DS ---
HISTORY OF PRESENT ILLNESS: The patient is a 56-year-old, seen and examined, and doing well. Still has cough and congestion, but better than before. Had hemodialysis done today morning. PHYSICAL EXAMINATION: VITAL SIGNS: She is afebrile, pulse 82, respirations 20, and blood pressure 126/65. LUNGS: Bilateral good airflow. No rhonchi or crackle. HEART: S1 and S2 audible. ABDOMEN: Soft and nontender. No rebound. No guarding. NEUROLOGIC: The patient is awake, alert, oriented, and able to communicate. Has difficulty walking because of bilateral congenital hip issue. ASSESSMENT: 1. Chronic obstructive pulmonary disease exacerbation. 2. Pulmonary edema secondary to fluid overload. 3. End-stage renal disease, on hemodialysis. 4. History of hypertension. 5. Gastritis. 6. Bilateral congenital hip problem. PLAN: The patient is going to be discharge home. She has nebulizer machine. We will give her prednisone 20 b.i.d. and she will continue all her medications as per . Shawn Gomez MD
== END 2017-08-01 22:29 | disposition home or self-care (01) | DRG 190 ==
LOC: ED 13:32 → ERH 16:57 → 3RSO 20:26
PROVIDERS: ADMIT Internal Medicine; ATTEND Internal Medicine
PROC: 3E0F7GC Introduction of Other Therapeutic Substance into Respiratory Tract, Via Natural or Artificial Opening (ICD-10-PCS; 2017-07-30)
PROC: 5A1D70Z Performance of Urinary Filtration, Intermittent, Less than 6 Hours Per Day (ICD-10-PCS; principal; 2017-08-01)
DX: J44.1 Chronic obstructive pulmonary disease with (acute) exacerbation (principal); N18.6 End stage renal disease; I13.2 Hypertensive heart and chronic kidney disease with heart failure and with stage 5 chronic kidney disease, or end stage renal disease; I27.20 Pulmonary hypertension, unspecified; K76.6 Portal hypertension; K86.1 Other chronic pancreatitis; E87.5 Hyperkalemia; N25.81 Secondary hyperparathyroidism of renal origin; I50.9 Heart failure, unspecified; Z99.2 Dependence on renal dialysis; R09.02 Hypoxemia; D63.1 Anemia in chronic kidney disease; Q89.9 Congenital malformation, unspecified; R26.2 Difficulty in walking, not elsewhere classified; K21.9 Gastro-esophageal reflux disease without esophagitis; K29.70 Gastritis, unspecified, without bleeding; F17.210 Nicotine dependence, cigarettes, uncomplicated; Z90.49 Acquired absence of other specified parts of digestive tract

== ENCOUNTER 2017-08-05 17:46 | Inpatient (IN) | payer MEDICARE, BC ==
[2017-08-05] MEDS ORDERED: Sodium Chloride 0.9% 500 ML IV STA (18:35)
[2017-08-05] MEDS ORDERED: Albuterol-Ipratrop 3 mg / 0.5 (3 ml) UD IH SCH (18:45)
[2017-08-05 18:57] LABS: BASO # 0.02 K/mm3 (0.0-2.0); BASO % 0.3 % (0.0-3.0); EOS % 0.3 % (1.5-5.0); GRAN # 6.85 (1.4-6.5); GRAN % 89.7 % (50.0-68.0); LYMPH # 0.1 (1.2-3.4); LYMPH % 1.6 % (22.0-35.0); MEAN CELL VOLUME 89.2 fl (80.0-105.0); MEAN CORPUSCULAR HEMOGLOBIN 28.1 pg (25.0-35.0); MEAN CORPUSCULAR HGB CONC 31.5 g/dl (31.0-37.0); MEAN PLATELET VOLUME 10.4 fl (7.0-11.0); MONO # 0.6 (0.1-0.6); MONO % 8.1 % (1.0-6.0); PLATELET COUNT 62 10^3/uL (120.0-450.0); RBC 4.27 10^6/uL (3.5-6.1); RED CELL DISTRIBUTION WIDTH 16.4 % (11.5-14.5); WHITE BLOOD COUNT 7.6 10^3/ul (4.5-11.0)
[2017-08-05 19:02] LABS: VENOUS BLOOD GAS BASE EXCESS 0.7 mmol/L (0.0-2.0); VENOUS BLOOD GAS PO2 70 mm/Hg (30-55); VENOUS BLOOD PH 7.41 (7.32-7.43)
--- NOTE | 2017-08-05 19:13 | ED PDOC ---
Arrival/HPI - General Historian: Patient - General Chief Complaint: Shortness Of Breath Time Seen by Provider: 08/05/17 18:05 - History of Present Illness Narrative History of Present Illness (Text): 08/05/17 19:10 56 year old female, w/ pmh of ESRD with hemodialysis on //Mon, hypertension , COPD, chronic anemia, GERD, C. diff, chronic pancreatitis, and small brain aneurysm, presents to the emergency department complaining of SOB, N/V/D, generalized weakness which started this AM, associated with a dry cough for the past few days. Patient reports she missed her dialysis today because she did not feel well enough to go. Patient also reports decrease in appetite for the past several days. Patient denies any fever, chills, chest pain, abdominal pain , urinary symptoms, hematochezia, dizziness, headache or any other complaints. PMD: Dr. Gomez (Letty Trammell PA-C) Past Medical History - Provider Review Nursing Documentation Reviewed: Yes - Past History Past History: Non-Contributing - Infectious Disease Hx of Infectious Diseases: None - Tetanus Immunization Tetanus Immunization: Up to Date - Cardiac Hx Cardiac Disorders: Yes Hx Congestive Heart Failure: Yes Hx Hypertension: Yes - Pulmonary Hx Respiratory Disorders: Yes Hx Asthma: Yes Hx Bronchitis: Yes Hx Chronic Obstructive Pulmonary Disease (COPD): Yes - Neurological Hx Neurological Disorder: No - HEENT Hx HEENT Disorder: Yes Hx Blind: Yes (partial, left eye) - Renal Hx Renal Disorder: Yes Hx Dialysis: Yes Type of Dialysis Access: Left upper arm Date of Last Dialysis Treatment: 07/29/17 Hx Renal Failure: Yes (Hemodialysis (, ,Mon)) Other/Comment: FSGS - Endocrine/Metabolic Hx Endocrine Disorders: Yes (parathyroid) - Hematological/Oncological Hx Blood Disorders: Yes Hx Anemia: Yes - Integumentary Hx Dermatological Disorder: No - Musculoskeletal/Rheumatological Hx Musculoskeletal Disorders: Yes (BILATERAL HIP SX,L HIP FX) Hx Falls: No - Gastrointestinal Hx Gastrointestinal Disorders: Yes (GI BLEED,SBO,APPENDICITIS,INGRAM'S ESOPHAGUS) Hx Crohn's Disease: Yes Hx Gall Bladder Disease: Yes (GALLSTONES) Hx Gastroesophageal Reflux: Yes Hx Pancreatitis: Yes - Genitourinary/Gynecological Hx Genitourinary Disorders: No - Psychiatric Hx Psychophysiologic Disorder: No Hx Substance Use: No - Surgical History Hx Cardiac Catheterization: Yes Hx Cholecystectomy: Yes Hx Orthopedic Surgery: Yes (bilateral hips) Other/Comment: left arm fistula placemnt, c-sectionx2, tonsilectomy - Anesthesia Hx Anesthesia Reactions: No Hx Malignant Hyperthermia: No - Suicidal Assessment Feels Threatened In Home Enviroment: No Family/Social History - Physician Review Nursing Documentation Reviewed: Yes Family/Social History: Unknown Family HX Smoking Status: Current Some Days Smoker Hx Alcohol Use: No Hx Substance Use: No Hx Substance Use Treatment: No Allergies/Home Meds Allergies/Adverse Reactions: Allergies aspirin Allergy (Severe, Verified 08/05/17 18:04) ANAPHYLAXIS ciprofloxacin Allergy (Severe, Verified 08/05/17 18:04) ANAPHYLAXIS [place] And Derivatives Allergy (Severe, Verified 08/05/17 18:04) ANAPHYLAXIS enalapril Allergy (Severe, Verified 08/05/17 18:04) HIVES heparin Allergy (Severe, Verified 08/05/17 18:04) ANAPHYLAXIS latex Allergy (Severe, Verified 08/05/17 18:04) ANAPHYLAXIS Penicillins Allergy (Severe, Verified 08/05/17 18:04) ANAPHYLAXIS Sulfa (Sulfonamide Antibiotics) Allergy (Severe, Verified 08/05/17 18:04) ANAPHYLAXIS levothyroxine sodium [From Levoxyl] Allergy (Intermediate, Verified 08/05/17 18: 04) RASH acetaminophen Allergy (Mild, Verified 08/05/17 18:04) RASH codeine Allergy (Mild, Verified 08/05/17 18:04) RASH enoxaparin Allergy (Mild, Verified 08/05/17 18:04) RASH iodine Allergy (Mild, Verified 08/05/17 18:04) RASH influenza virus vaccine, specific Allergy (Verified 08/05/17 18:04) hives Home Medications: Home Meds Medication Instructions Recorded Confirmed Unobtainable 08/05/17 08/05/17 Review of Systems - Review of Systems Constitutional: Fatigue. absent: Weight Change, Fevers ENT: absent: Sore Throat, Rhinorrhea, Sinus Congestion Respiratory: SOB, Cough, Wheezing. absent: Sputum Cardiovascular: absent: Chest Pain, Palpitations, Edema Gastrointestinal: Diarrhea, Nausea, Vomiting. absent: Abdominal Pain Genitourinary Female: absent: Dysuria, Frequency, Hematuria Musculoskeletal: absent: Arthralgias, Back Pain, Neck Pain, Joint Swelling Skin: absent: Rash, Pruritis, Skin Lesions Neurological: absent: Headache, Dizziness, Focal Weakness Physical Exam - Physical Exam Narrative Physical Exam (Text): 08/05/17 19:13 GENERAL APPEARANCE: Patient is awake, alert, oriented x 3, in mild distress. SKIN: Warm, dry; (-) cyanosis. EYES: (-) conjunctival pallor. ENMT: Mucous membranes dry. NECK: (-) tenderness, (-) stiffness, (-) lymphadenopathy, (-) JVD. CHEST AND RESPIRATORY: (-) rash, (-) chest wall tenderness. Lungs: (-) rales , (+) scattered rhonchi, (+) b/l expiratory wheezes, (-) rub; breath sounds equal bilaterally. HEART AND CARDIOVASCULAR: (-) irregularity; (-) murmur, (-) gallop, (-) rub. ABDOMEN AND GI: Soft; (-) distention, (-) tenderness, (-) palpable pulsatile mass. EXTREMITIES: (-) deformity; (+) 2+ edema, (-) calf tenderness. (+) distal pulses. NEURO AND PSYCH: Mental status as above. Cranial nerves grossly intact; strength symmetric. (Jp MATTHEW,Letty Barrios) Vital Signs Temp Pulse Resp BP Pulse Ox 08/05/17 22:42 142/75 08/05/17 21:00 98.6 F 90 16 144/76 100 08/05/17 19:46 98.6 F 92 H 16 141/72 100 08/05/17 19:00 16 08/05/17 18:01 98.9 F 92 H 17 143/77 100 Medical Decision Making ED Course and Treatment: 08/05/17 19:13 56 year old female, w/ pmh of ESRD with hemodialysis on , hypertension , COPD, chronic anemia, GERD, C. diff, chronic pancreatitis, and small brain aneurysm, presents to the emergency department complaining of SOB, N/V, generalized weakness which started this AM, associated with a dry cough for the past few days. Previous medical records reviewed : patient was seen and evaluated in this ED on 07/29/17 for similar complaints, was admitted for copd exacerbation, hyperkalemia, esrd. Of note, she was found to have a bnp of 669,000, and her CXR showed : Cardiomegaly/mild CHF. Increased interstitial markings compatible with lower airways disease. No discrete pulmonary infiltrates. Plan: -- Labs -- IV fluids -- Urinalysis -- EKG -- CXR -- Solumedrol IV -- Duonebs x2 -- Pepcid IV / zofran IV -- Reassess and disposition EKG : NSR at 92 bpm, LAD, prolonged QT t wave inversion lead I, AVL, V6, seen in prior EKG and is unchanged from 07/29/17 CXR : CM, increased vascular markings, no infiltrates, no pleural effusions, as read by ALICIA and ER MD Labs reviewed : platelet 62, bun 49, creat 6.6, bnp 897,000, flu (+) lactate 1.8, K 4.3 On re-evaluation, patient feeling much improved. Patient is laying in bed in no acute distress, speaking in full sentences, breathing is unlabored with no wheezing, only rhonchi on auscultation. P 72 O2sat 94% on NC. Patient notified of (+) flu test and need for inpatient admission for HD tomorrow, which she agrees with. Patient medicated with lasix 20 mg IV and tamiflu 75 mg PO. Case d/w Dr. Gomez agrees with inpatient admission for HD. Case d/w Dr. Holder covering for Dr. Rose, notified of patient's admission and need for HD tomorrow. Bridge orders placed. (Jp MATTHEW,Letty Barrios) - Lab Interpretations Lab Results: 08/05/17 18:35 08/05/17 18:35 Lab Results 08/05/17 19:00: Influenza Typ A,B (EIA) Pos for influenza a H 08/05/17 18:35: Sodium 136, Chloride 94 L, Potassium 4.3, Carbon Dioxide 26, Anion Gap 20, BUN 49 H, Creatinine 6.6 H, Est GFR ( Amer) 8, Est GFR (Non -Af Amer) 6, Random Glucose 65 L, Calcium 7.7 L, Phosphorus 4.5, Magnesium 1.7, Total Bilirubin 2.8 H, AST 29, ALT 26, Alkaline Phosphatase 444 H, NT-Pro-B Natriuret Pep [id number] H, Total Protein 6.6, Albumin 3.6, Globulin 3.0, Albumin/ Globulin Ratio 1.2 08/05/17 18:35: pO2 70 H, VBG pH 7.41, VBG pCO2 40.0, VBG HCO3 25.4, VBG Total CO2 26.6, VBG O2 Sat (Calc) 96.4 H, VBG Base Excess 0.7, VBG Potassium 4.4, Sodium 134.0, Chloride 96.0 L, Glucose 62 L, Lactate 1.8, FiO2 21.0, Venous Blood Potassium 4.4 08/05/17 18:35: WBC 7.6, RBC 4.27, Hgb 12.0, Hct 38.1, MCV 89.2, MCH 28.1, MCHC 31.5, RDW 16.4 H, Plt Count 62 L, MPV 10.4, Gran % 89.7 H, Lymph % (Auto) 1.6 L , [place] % (Auto) 8.1 H, Eos % (Auto) 0.3 L, Baso % (Auto) 0.3, Gran # 6.85 H, Lymph # 0.1 L, [place] # 0.6, Eos # 0.0, Baso # 0.02, Neutrophils % (Manual) 95 H, Lymphocytes % (Manual) 2 L, Monocytes % (Manual) 2, Eosinophils % (Manual) 1, Platelet Evaluation Low - RAD Interpretation Radiology Orders: 08/05/17 18:31 CHEST PORTABLE [RAD] Stat - Medication Orders Current Medication Orders: Ondansetron HCl (Zofran Inj) 4 mg IVP Q6H PRN PRN Reason: Nausea/Vomiting Discontinued Medications Albuterol/Ipratropium (Duoneb 3 Mg/0.5 Mg (3 Ml) Ud) 3 ml IH Q15M LEX Stop: 08/05/17 19:01 Last Admin: 08/05/17 18:47 Dose: 3 ml Famotidine (Pepcid) 20 mg IVP STAT STA Stop: 08/05/17 18:38 Last Admin: 08/05/17 18:47 Dose: 20 mg IVP Administration Document 08/05/17 18:47 EWO (Rec: 08/05/17 18:47 EWO [id number]) Charges for Administration # of IVP Administrations 1 Furosemide (Lasix) 20 mg IVP STAT STA Stop: 08/05/17 22:10 Last Admin: 08/05/17 22:42 Dose: 20 mg MAR Blood Pressure Document 08/05/17 22:42 AB (Rec: 08/05/17 22:42 AB [facility] [id number]) Blood Pressure Blood Pressure (100/60-150/90) 142/75 IVP Administration Document 08/05/17 22:42 AB (Rec: 08/05/17 22:42 AB [id number]) Charges for Administration # of IVP Administrations 1 Sodium Chloride (Sodium Chloride 0.9%) 500 mls @ 500 mls/hr IV .Q1H STA Stop: 08/05/17 19:34 Last Admin: 08/05/17 18:46 Dose: 500 mls/hr eMAR Start Stop Document 08/05/17 18:46 EWO (Rec: 08/05/17 18:47 [id number]) Intravenous Solution Start Date 08/05/17 Start Time 18:46 End Date 08/05/17 End time 19:46 Total Infusion Time 60 Methylprednisolone (Solu-Medrol) 125 mg IV STAT STA Stop: 08/05/17 18:35 Last Admin: 08/05/17 18:46 Dose: 125 mg eMAR Start Stop Document 08/05/17 18:46 EWO (Rec: 08/05/17 18:46 EWO [id number]) Intravenous Solution Start Date 08/05/17 Start Time 18:46 End Date 08/05/17 End time 18:48 Total Infusion Time 2 Ondansetron HCl (Zofran Inj) 4 mg IVP STAT STA Stop: 08/05/17 18:38 Last Admin: 08/05/17 18:47 Dose: 4 mg IVP Administration Document 08/05/17 18:47 EWO (Rec: 08/05/17 18:47 EWJ[facility] [id number]) Charges for Administration # of IVP Administrations 1 Oseltamivir Phosphate (Tamiflu Cap) 75 mg PO STAT STA PRN Reason: Protocol Stop: 08/05/17 20:05 Last Admin: 08/05/17 20:23 Dose: 75 mg - PA / MAILROOM PERSONNEL / Resident Statement / has reviewed & agrees with the documentation as recorded. Disposition/Present on Arrival - Present on Arrival Any Indicators Present on Arrival: No History of DVT/PE: No History of Uncontrolled Diabetes: No Urinary Catheter: No History of Decub. Ulcer: No History Surgical Site Infection Following: None - Disposition Have Diagnosis and Disposition been Completed?: Yes Disposition Time: 21:45 Patient Plan: Admission - Disposition Diagnosis: CHF (congestive heart failure), ESRD (end stage renal disease), Influenza Disposition: HOSPITALIZED Patient Problems: Current Active Problems Problem Status Onset CHF (congestive heart failure) Acute ESRD (end stage renal disease) Acute Influenza Acute Condition: STABLE Discharge Instructions (ExitCare): Heart Failure (ED) Referrals: [facility], [Primary Care Provider] - Follow up with primary Forms: [employer] (Greek)
[2017-08-05 19:40] LABS: EOSINOPHIL 1 % (0.0-3.0); LYMPHOCYTE 2 % (22.0-35.0); MONOCYTE 2 % (1.0-6.0); NEUTROPHIL 95 % (50.0-70.0)
[2017-08-05 19:41] LABS: PLATELET ESTIMATE LOW (NORMAL)
[2017-08-05 20:22] LABS: CALCIUM 7.7 mg/dL (8.4-10.5); MAGNESIUM 1.7 mg/dL (1.7-2.2)
[2017-08-05 20:23] LABS: ALB/GLOB RATIO 1.2 (1.1-1.8); ALBUMIN 3.6 g/dL (3.0-4.8)
[2017-08-06 13:12] LABS: GRAN # 3.32 (1.4-6.5); GRAN % 90.9 % (50.0-68.0); HEMOGLOBIN 11.9 g/dL (12.0-16.0); LYMPH # 0.2 (1.2-3.4); LYMPH % 4.4 % (22.0-35.0); MEAN CORPUSCULAR HEMOGLOBIN 27.4 pg (25.0-35.0); MEAN CORPUSCULAR HGB CONC 31.2 g/dl (31.0-37.0); MONO # 0.2 (0.1-0.6); MONO % 4.7 % (1.0-6.0); RBC 4.34 10^6/uL (3.5-6.1); RED CELL DISTRIBUTION WIDTH 16.3 % (11.5-14.5); WHITE BLOOD COUNT 3.7 10^3/ul (4.5-11.0)
[2017-08-06 13:26] LABS: ALB/GLOB RATIO 1.1 (1.1-1.8); ALBUMIN 3.1 g/dL (3.0-4.8); CALCIUM 7.1 mg/dL (8.4-10.5); MAGNESIUM 1.8 mg/dL (1.7-2.2)
--- NOTE | 2017-08-06 14:26 | RAD ---
HISTORY: Sepsis Patient COMPARISON: Comparison chest dated 07/29/2017. FINDINGS: Re- demonstrated are endovascular stents in the left subclavian, left axillary regions as well as in the medial soft tissues left upper extremity. LUNGS: Increased vascularity consistent with pulmonary edema; rule out CHF versus fluid overload. PLEURA: No significant pleural effusion identified, no pneumothorax apparent. CARDIOVASCULAR: Marked cardiomegaly OSSEOUS STRUCTURES: No significant abnormalities. VISUALIZED UPPER ABDOMEN: Normal. OTHER FINDINGS: None. IMPRESSION: Findings consistent with pulmonary edema; rule out CHF versus fluid overload. Marked cardiomegaly.
--- NOTE | 2017-08-06 14:38 | CP.PCM.CON ---
History of Present Illness - History of Present Illness History of Present Illness: Renal Consult ESRD HPI: 56 yo F w/ pmh of ESRD, GERD, pancreatitis that presented w/ feeling "crummy." She apparently skipped dialysis yesterday as she was not feeling well. She endorsed n/v/diarrhea/ some cough and muscle aches. She denied cp or sob. She did not try an OTC's for relief. She swabbed + for flu. She was seen on dialysis to make up for her missed tx. SHe otherwise denies any complaints. ROS: A ful detailed ROS is negative except as above. PMH: ESRD TTS, GERD, pancreatitis, hx of pericardial effusion, anemia, aneursym FHX:+ htn in fmaily Social Hx: (+) smoker, denies ETOH, no drugs Allergies: multiple allergies: aspirin, ciprofloxacin, citrus, heparin, enalapril, latex, codeine, lovenox,influenza vaccine Meds reviewed pe: vs reviewed seen on dialysis gen: nad sclera: anicteric op: clear neck: supple cv +s1+s2 lungs: dec bs at bases abd: soft ext: 1+ edema neuro: A+ox3 psych: nml affect skin no rash imp: ESRD / Influenza / Anemia of renal disease/ secondary hyperparathyroidism/ Hyperphosphatemia plan: seen on HD continue TTS after today supportive care fore influenza no adri needed today will resume renagel VDRA per protocol at hd unit will resume nephrocap Past Patient History - Infectious Disease Hx of Infectious Diseases: None - Tetanus Immunizations Tetanus Immunization: Up to Date - Past Medical History & Family History Past Medical History?: Yes - Past Social History Smoking Status: Current Some Days Smoker - CARDIAC Hx Cardiac Disorders: Yes Hx Congestive Heart Failure: Yes Hx Hypertension: Yes - PULMONARY Hx Respiratory Disorders: Yes Hx Asthma: Yes Hx Bronchitis: Yes Hx Chronic Obstructive Pulmonary Disease (COPD): Yes - NEUROLOGICAL Hx Neurological Disorder: No - HEENT Hx HEENT Problems: Yes Hx Blind: Yes (partial, left eye) - RENAL Hx Chronic Kidney Disease: Yes Hx Dialysis: Yes Hx Renal Failure: Yes (Hemodialysis (T, TH,Sat)) Other/Comment: FSGS - ENDOCRINE/METABOLIC Hx Endocrine Disorders: Yes (parathyroid) - HEMATOLOGICAL/ONCOLOGICAL Hx Blood Disorders: Yes Hx Anemia: Yes - INTEGUMENTARY Hx Dermatological Problems: No - MUSCULOSKELETAL/RHEUMATOLOGICAL Hx Falls: No - GASTROINTESTINAL Hx Gastrointestinal Disorders: Yes (GI BLEED,SBO,APPENDICITIS,INGRAM'S ESOPHAGUS) Hx Crohn's Disease: Yes Hx Gall Bladder Disease: Yes (GALLSTONES) Hx Gastroesophageal Reflux: Yes Hx Pancreatitis: Yes - GENITOURINARY/GYNECOLOGICAL Hx Genitourinary Disorders: No - PSYCHIATRIC Hx Psychophysiologic Disorder: No - SURGICAL HISTORY Hx Cardiac Catheterization: Yes Hx Cholecystectomy: Yes Hx Orthopedic Surgery: Yes (bilateral hips) Other/Comment: left arm fistula placemnt, c-sectionx2, tonsilectomy - ANESTHESIA Hx Anesthesia Reactions: No Hx Malignant Hyperthermia: No Meds Allergies/Adverse Reactions: Allergies Allergy/AdvReac Type Severity Reaction Status Date / Time aspirin Allergy Severe ANAPHYLAXIS Verified 08/05/17 18:04 ciprofloxacin Allergy Severe ANAPHYLAXIS Verified 08/05/17 18:04 [place] And Derivatives Allergy Severe ANAPHYLAXIS Verified 08/05/17 18:04 enalapril Allergy Severe HIVES Verified 08/05/17 18:04 heparin Allergy Severe ANAPHYLAXIS Verified 08/05/17 18:04 latex Allergy Severe ANAPHYLAXIS Verified 08/05/17 18:04 Penicillins Allergy Severe ANAPHYLAXIS Verified 08/05/17 18:04 Sulfa (Sulfonamide Allergy Severe ANAPHYLAXIS Verified 08/05/17 18:04 Antibiotics) levothyroxine sodium Allergy Intermediate RASH Verified 08/05/17 18:04 [From Levoxyl] acetaminophen Allergy Mild RASH Verified 08/05/17 18:04 codeine Allergy Mild RASH Verified 08/05/17 18:04 enoxaparin Allergy Mild RASH Verified 08/05/17 18:04 iodine Allergy Mild RASH Verified 08/05/17 18:04 influenza virus vaccine, Allergy hives Verified 08/05/17 18:04 specific - Medications Medications: Current Medications Acetaminophen (Tylenol 325mg Tab) 650 mg PO Q4H PRN PRN Reason: Fever >100.4 F Ondansetron HCl (Zofran Inj) 4 mg IVP Q6H PRN PRN Reason: Nausea/Vomiting Oseltamivir Phosphate (Tamiflu Susp) 30 mg PO DAILY LEX PRN Reason: Protocol Stop: 08/11/17 11:01 Results - Vital Signs Recent Vital Signs: Last Vital Signs Temp 97.2 F L 08/06/17 08:04 Pulse 85 08/06/17 08:04 Resp 20 08/06/17 08:04 BP 142/83 08/06/17 08:04 Pulse Ox 97 08/06/17 08:04 - Labs Result Diagrams: 08/06/17 13:00 08/06/17 13:00 Labs: Laboratory Results - last 24 hr 08/06/17 08/06/17 13:00 13:00 WBC 3.7 L D RBC 4.34 Hgb 11.9 L Hct 38.2 MCV 88.0 MCH 27.4 MCHC 31.2 RDW 16.3 H Plt Count 75 L MPV 10.0 Gran % 90.9 H Lymph % (Auto) 4.4 L [place] % (Auto) 4.7 Eos % (Auto) 0.0 L Baso % (Auto) 0.0 Gran # 3.32 Lymph # 0.2 L [place] # 0.2 Eos # 0.0 Baso # 0.00 Sodium 135 Potassium 4.5 Chloride 95 L Carbon Dioxide 20 L Anion Gap 25 H BUN 64 H Creatinine 7.6 H* Est GFR ( Amer) 7 Est GFR (Non-Af Amer) 6 Random Glucose 175 H Calcium 7.1 L Phosphorus 7.5 H Magnesium 1.8 Total Bilirubin 2.6 H AST 29 ALT 32 Alkaline Phosphatase 386 H Total Protein 5.9 Albumin 3.1 Globulin 2.8 Albumin/Globulin Ratio 1.1
--- NOTE | 2017-08-06 14:39 | CP.PCM.PN ---
Subjective - Date & Time of Evaluation Date of Evaluation: 08/06/17 Time of Evaluation: 14:38 - Subjective Subjective: DIALYSIS NOTE Seen on Dialysis uf goal 2k g otherwise tolerating tx Objective - Vital Signs/Intake and Output Vital Signs (last 24 hours): Temp Pulse Resp BP Pulse Ox 97.2 F L 85 20 142/83 97 08/06/17 08:04 08/06/17 08:04 08/06/17 08:04 08/06/17 08:04 08/06/17 08:04 Intake and Output: 08/06/17 08/06/17 06:59 18:59 Intake Total 620 300 Balance 620 300 - Medications Medications: Current Medications Acetaminophen (Tylenol 325mg Tab) 650 mg PO Q4H PRN PRN Reason: Fever >100.4 F Ondansetron HCl (Zofran Inj) 4 mg IVP Q6H PRN PRN Reason: Nausea/Vomiting Oseltamivir Phosphate (Tamiflu Susp) 30 mg PO DAILY LEX PRN Reason: Protocol Stop: 08/11/17 11:01 Sevelamer HCl (Renagel) 2,400 mg PO TID [facility] Vitamin B Complex/Vit C/Folic Acid (Nephro-Mayra) 1 tab PO 0800 [facility] - Labs Labs: 08/06/17 13:00 08/06/17 13:00
--- NOTE | 2017-08-06 15:41 | CARD ---
APPROVED REPORT EKG Measurement Heart [id number] <Conclusion> Normal sinus rhythm Left axis deviation Voltage criteria for left ventricular hypertrophy ST & T wave abnormality, consider lateral ischemia Prolonged QT Abnormal ECG
[2017-08-06] MEDS: Oseltamivir 6 MG/ML PO SCH (16:06)
[2017-08-06] MEDS: oxyCODONE 10 mg Immediate Release Tab PO PRN (18:05)
--- NOTE | 2017-08-06 21:26 | CON ---
DATE: 08/06/2017 LOCATION: The patient is seen earlier today in room 368, bed 2. CHIEF COMPLAINT: Generalized aches and pains times several days. HISTORY OF PRESENT ILLNESS: This is a 56-year-old female with history of end-stage renal disease on hemodialysis, history of hypertension, chronic obstructive lung disease and GERD, history of C. diff and chronic pancreatitis and a brain aneurysm, who was admitted to the emergency room complaining of generalized aches and pains, joint pain and low-grade fevers, but no chills and mild shortness of breath. No abdominal pain, no cramps, no diarrhea. PAST MEDICAL HISTORY: Significant for chronic renal failure on hemodialysis, hypertension, chronic obstructive lung disease, GERD, dyslipidemia, chronic pain syndrome, small brain aneurysm pseudomembranous colitis, chronic pancreatitis, and congestive heart failure. PAST SURGICAL HISTORY: Significant for bilateral hip surgery, left arm fistula, tonsillectomy and x2. ALLERGIES: THE PATIENT HAS MULTIPLE ALLERGIES INCLUDING ASPIRIN, CIPRO, PENICILLIN, ENALAPRIL, LATEX AND INFLUENZA VACCINE. MEDICATIONS AT HOME: The patient's medications are reviewed. PHYSICAL EXAMINATION: GENERAL: The patient is in bed, nontoxic, answering questions appropriately. VITAL SIGNS: Temperature of 98, heart rate of 92, blood pressure is 140/80 and respiratory rate of 20. HEENT: Unremarkable. NECK: Supple. LUNGS: Have decreased breath sounds. HEART: Normal S1 and S2. ABDOMEN: Soft and nontender. LABORATORY EXAMINATION: Reveals a white count of 7.6, hemoglobin of 12, platelets of 62 and 89% granulocytosis and blood gases are noted. Chemistries reveals the BUN of 49, creatinine of 6.6. The BNP is 897,000. The alk phos is 444. Serology for influenza is positive and the patient's chest x-ray result is not available. Review of the chest x-ray reviewed, no results are available at this time. EKG, no results are available at this time and review of blood cultures and urine cultures have been ordered and the patient is started on Tamiflu and placed on isolation. ASSESSMENT AND PLAN: This is a 56-year-old female with end-stage renal disease and hypertension. The patient is on hemodialysis, chronic obstructive lung disease with gastroesophageal reflux disease, small brain aneurysm, congestive heart failure, chronic pain syndrome and hyperlipidemia, presenting with generalized aches and pains and found to have been positive for positive influenza. We will start the patient on Tamiflu. The exact number of days she has been sick is unclear, 75 mg p.o. once daily for 5 days. The patient should be given 30 mg of Tamiflu after each dialysis. The patient was given Tamiflu in the emergency room at 75 mg yesterday for a total of 5 days. We will follow with you. Sandro Walsh MD
[2017-08-07] MEDS ORDERED: Multivitamin Vitamin B Complex (Nephro-Vite) Tab PO SCH (08:00)
[2017-08-07 09:51] VITALS: BP 115/71; RESP 17; TEMP 97.6; O2SAT 96
[2017-08-07] MEDS: Oseltamivir 6 MG/ML PO SCH (10:14)
[2017-08-07] MEDS: oxyCODONE 10 mg Immediate Release Tab PO PRN (10:14)
--- NOTE | 2017-08-07 11:47 | CP.PCM.PN ---
Subjective - Date & Time of Evaluation Date of Evaluation: 08/07/17 Time of Evaluation: 11:44 - Subjective Subjective: S: still feeling run down pe: vs reviewed gen: nad sclera: anicteric op: clear neck: supple cv +s1+s2 lungs: dec bs at bases abd: soft ext: 1+ edema neuro: A+ox3 psych: nml affect skin no rash imp: ESRD / Influenza / Anemia of renal disease/ secondary hyperparathyroidism/ Hyperphosphatemia plan: HD tomorrow supportive care for influenza will change tamiflu dosing - should be given on hd days p hd monitor h and h monitor phos on binders VDRA per protocol at hd unit will resume nephrocap Objective - Vital Signs/Intake and Output Vital Signs (last 24 hours): Temp Pulse Resp BP Pulse Ox 97.6 F 66 17 115/71 96 08/07/17 06:00 08/07/17 06:00 08/07/17 06:00 08/07/17 06:00 08/07/17 06:00 Intake and Output: 08/07/17 08/07/17 06:59 18:59 Intake Total 120 Balance 120 - Medications Medications: Current Medications Acetaminophen (Tylenol 325mg Tab) 650 mg PO Q4H PRN PRN Reason: Fever >100.4 F Diphenhydramine HCl (Benadryl) 25 mg PO HS PRN PRN Reason: Itching / Pruritus Last Admin: 08/06/17 23:15 Dose: 25 mg Ondansetron HCl (Zofran Inj) 4 mg IVP Q6H PRN PRN Reason: Nausea/Vomiting Oseltamivir Phosphate (Tamiflu Susp) 30 mg PO DAILY LEX PRN Reason: Protocol Stop: 08/11/17 11:01 Last Admin: 08/07/17 10:14 Dose: 30 mg Oxycodone HCl (Oxycodone Immediate Release Tab) 10 mg PO Q6H PRN PRN Reason: Pain, moderate (4-7) Last Admin: 08/07/17 10:14 Dose: 10 mg Sevelamer HCl (Renagel) 2,400 mg PO TID [facility] Last Admin: 08/07/17 10:13 Dose: 2,400 mg Vitamin B Complex/Vit C/Folic Acid (Nephro-Mayra) 1 tab PO 0800 [facility] Last Admin: 08/07/17 10:15 Dose: 1 tab - Labs Labs: 08/06/17 13:00 08/06/17 13:00
--- NOTE | 2017-08-07 11:56 | PN ---
DATE: 08/07/2017 SUBJECTIVE: The patient is in bed in no acute distress, was seen earlier. The patient is eating breakfast well, doing well. PHYSICAL EXAMINATION: VITAL SIGNS: Temperature of 98, blood pressure is 115/70, respiratory rate of 18. HEENT: Unremarkable. NECK: Supple. LUNGS: Decreased breath sounds. HEART: Normal S1, S2. ABDOMEN: Soft. LABORATORY DATA: Reveals the patient's white count of 3.7, hemoglobin of 11. Chemistries are noted. Influenza is positive. Microbiology reveals the blood cultures are negative. The patient is on Tamiflu adjusted for renal failure. ASSESSMENT AND PLAN: This is a 56-year-old female with a history of end-stage renal disease on hemodialysis, hypertension, chronic obstructive lung disease, history of C. difficile and chronic pancreatitis, brain aneurysm, admitted through the emergency room with generalized aches and pains and found to have positive influenza, currently on day #2 of Tamiflu, adjusted for renal failure with complete 5 days of Tamiflu. The patient may be discharged from Infectious Disease point of view. The patient's blood cultures are reported been negative. Sandro Walsh MD
[2017-08-07 15:32] VITALS: PULSE 72
--- NOTE | 2017-08-07 19:51 | CP.PCM.PCO ---
Assessment & Plan - Assessment and Plan (Free Text) Assessment: Discussed with Dr. Rosado. She has history of GI bleed and was evaluated for neuroendocrine tumor. octreotide scan done this year was negative. Imaging did not show any mass leaion. Chromogranin level level was high, in setting of ESRD. She was advised by Dr. Rosado team to consult Dr. Mock at [facility]. Contact information was provided to her by his team earlier. She was reminded again to consult Dr. Mock, she has not contacted their office yet. - Date & Time Date: 08/07/17 Time: 12:00
--- NOTE | 2017-08-07 20:25 | DS ---
DISCHARGE DIAGNOSES: 1. Influenza type A. 2. End-stage renal disease, on hemodialysis. 3. Chronic anemia. 4. Thrombocytopenia. 5. Chronic obstructive pulmonary disease. HOSPITAL COURSE: The patient was admitted with influenza type A. She was dialyzed as she missed the hemodialysis on Monday. She did not have white count, evaluated by ID specialist Dr. Walsh. Tamiflu was given during the hospitalization. She will get Tamiflu 3 more doses, on the hemodialysis day 30 mg at the renal doses as recommended by photogrammetric tech. She is being discharged in stable condition. PHYSICAL EXAMINATION: On discharge, GENERAL: Comfortable in bed, in no acute distress. VITAL SIGNS: Temperature 98.7, heart rate 60 per minute, blood pressure 115/70, respiratory rate 18 per minute, and oxygen saturation 96% on room air. HEENT: Pallor positive. NECK: Supple. CHEST: Fair air entry present and equal bilaterally. No added sounds. CARDIOVASCULAR: S1 and S2 normal. No murmur. No gallop. ABDOMEN: Soft and nontender. No hepatosplenomegaly. EXTREMITIES: No edema. SKIN: No petechiae. No rash. DISPOSITION: Discharge home. CONDITION ON DISCHARGE: Stable DISCHARGE MEDICATIONS: Tamiflu 30 mg three times a week for 3 doses. Continue home medications. DISCHARGE FOLLOWUP: Follow up with Dr. Gomez in one week. Chelsy Dominguez MD
--- NOTE | 2017-08-07 21:02 | HP ---
HISTORY OF PRESENT ILLNESS: Ms. Kraus is a 56-year-old female admitted to the hospital with not feeling well, flu like symptoms, cough for past few days. She missed her dialysis on Monday. Flu was positive in the ER. She has end-stage renal disease on hemodialysis, history of hypertension. Blood pressure control on current medications, history of COPD, no recent exacerbation. She also has history of chronic pancreatitis and brain aneurysm. She was complaining of shortness of breath. Chest x-ray did not show any infiltrate. PAST MEDICAL HISTORY: End-stage renal disease on hemodialysis, history of cardiac failure, hypertension, COPD, blind in left eye, on hemodialysis, history of hyperparathyroidism. PAST SURGICAL HISTORY: Bilateral hip surgery, history of GI bleed, Barrette's esophagus, appendicitis, GE reflux, history of pancreatitis, cardiac catheterization, cholecystectomy, fistula placement for dialysis. REVIEW OF SYSTEMS: As per HPI. Rest of the 12-point review of systems reviewed and negative. PERSONAL HISTORY: Smoking positive. Continues to smoke. ALLERGIES: ASPIRIN, CIPROFLOXACIN, CITRUS, ENALAPRIL, HEPARIN, LATEX, SULFA, LEVOTHYROXINE, TYLENOL, CODEINE, ENOXAPARIN, IODINE, AND INFLUENZA VACCINE. PHYSICAL EXAMINATION GENERAL: Comfortably in bed, in no acute distress. VITAL SIGNS: Temperature 98.9, heart rate 92 per minute, respiratory rate 17 per minute, blood pressure 140/70, pulse oximetry 100% on room air. HEENT: Normal, pallor positive. NECK: No lymphadenopathy. CHEST: Air entry present, equal and bilateral. No added sounds. CARDIOVASCULAR: S1 and S2 normal. No murmur, no gallop. ABDOMEN: Soft and nontender. No hepatosplenomegaly. EXTREMITIES: No edema. SPINE: Nontender. LABORATORY EXAM: White count 7.6, hemoglobin 12, hematocrit 38.1, and platelet count 62. Sodium 136, potassium 4.3, BUN 49, creatinine 6.6, glucose 65. Chest x-ray, pulmonary edema, mild cardiomegaly, no infiltrate. ASSESSMENT: 1. Influenza type A. 2. End-stage renal disease on hemodialysis. 3. Chronic obstructive pulmonary disease. 4. Chronic anemia. 5. Cardiomegaly. PLAN: She will be admitted to the hospital. She will be dialyzed today. Zofran 4 mg IV q. 6 hours p.r.n., Tamiflu 30 mg three times a day on dialysis, Percocet p.r.n. for pain, Renagel daily. ID consultation Dr. Walsh requested. We will continue to monitor clinically respiratory isolation. Chelsy Dominguez MD
[2017-08-08] MEDS ORDERED: Oseltamivir 6 MG/ML PO SCH (10:00)
== END 2017-08-07 17:00 | disposition home or self-care (01) | DRG 193 ==
LOC: ED 17:46 → ERH 22:54 → 3RNO 23:59
PROVIDERS: ADMIT Internal Medicine; ATTEND Internal Medicine
PROC: 5A1D70Z Performance of Urinary Filtration, Intermittent, Less than 6 Hours Per Day (ICD-10-PCS; principal; 2017-08-06)
DX: J10.1 Influenza due to other identified influenza virus with other respiratory manifestations (principal); N18.6 End stage renal disease; I13.2 Hypertensive heart and chronic kidney disease with heart failure and with stage 5 chronic kidney disease, or end stage renal disease; I67.1 Cerebral aneurysm, nonruptured; D69.6 Thrombocytopenia, unspecified; K86.1 Other chronic pancreatitis; E83.39 Other disorders of phosphorus metabolism; N25.81 Secondary hyperparathyroidism of renal origin; I50.9 Heart failure, unspecified; J44.9 Chronic obstructive pulmonary disease, unspecified; Z99.2 Dependence on renal dialysis; D63.1 Anemia in chronic kidney disease; G89.4 Chronic pain syndrome; E78.5 Hyperlipidemia, unspecified; K21.9 Gastro-esophageal reflux disease without esophagitis; H54.62 Unqualified visual loss, left eye, normal vision right eye; F17.210 Nicotine dependence, cigarettes, uncomplicated

== ENCOUNTER 2017-08-30 04:19 | Observation (INO) | payer MEDICARE, BC ==
[2017-08-30 04:27] VITALS: BMI 23.8
--- NOTE | 2017-08-30 04:35 | ED PDOC ---
Arrival/HPI - General Time Seen by Provider: 08/30/17 04:22 Historian: Patient - History of Present Illness Narrative History of Present Illness (Text): 08/30/17 04:28 Jacqui Kraus is a 57 year old female, whose past medical history includes ESRD on hemodialysis, hypertension, COPD, chronic anemia, GERD, C. diff, chronic pancreatitis, and small brain aneurysm, who presents to the Emergency department complaining of generalized weakness. Patient states she began feeling weak after dialysis yesterday and reports her legs gave out after standing up. Patient reports a history of chronic hip pain but notes she felt her right hip "pop" and is now experiencing right hip pain with movement. Patient also complaining of some shortness of breath, productive cough, and nausea. Patient denies any fever, chills, chest pain, vomiting, diarrhea, urinary symptoms, neck pain, headache, dizziness, or any other complaints. PMD: Dr. Gomez Manager New Product: Dr. Rose Symptom Onset: Gradual Symptom Course: Unchanged Activities at Onset: Light Context: Home Past Medical History - Provider Review Nursing Documentation Reviewed: Yes - Past History Past History: Non-Contributing - Infectious Disease Hx of Infectious Diseases: None - Tetanus Immunization Tetanus Immunization: Up to Date - Cardiac Hx Hypertension: Yes - Pulmonary Hx Chronic Obstructive Pulmonary Disease (COPD): Yes - Neurological Hx Neurological Disorder: No - HEENT Hx Blind: Yes (partial, left eye) - Renal Hx Renal Failure: Yes (Hemodialysis (T, TH,Sat)) - Endocrine/Metabolic Hx Endocrine Disorders: Yes (parathyroid) - Hematological/Oncological Hx Blood Disorders: Yes Hx Anemia: Yes - Integumentary Hx Dermatological Disorder: No - Musculoskeletal/Rheumatological Hx Falls: No - Gastrointestinal Hx Gastrointestinal Disorders: Yes (GI BLEED,SBO,APPENDICITIS,INGRAM'S ESOPHAGUS) - Genitourinary/Gynecological Hx Genitourinary Disorders: No - Psychiatric Hx Psychophysiologic Disorder: No Hx Substance Use: No - Surgical History Hx Cholecystectomy: Yes Hx Orthopedic Surgery: Yes (bilateral hips) Other/Comment: left arm fistula placemnt, c-sectionx2, tonsilectomy - Anesthesia Hx Anesthesia Reactions: No Hx Malignant Hyperthermia: No - Suicidal Assessment Feels Threatened In Home Enviroment: No Family/Social History - Physician Review Nursing Documentation Reviewed: Yes Family/Social History: Unknown Family HX Smoking Status: Current Some Days Smoker Hx Alcohol Use: No Hx Substance Use: No Hx Substance Use Treatment: No Allergies/Home Meds Allergies/Adverse Reactions: Allergies aspirin Allergy (Severe, Verified 08/05/17 18:04) ANAPHYLAXIS ciprofloxacin Allergy (Severe, Verified 08/30/17 04:29) ANAPHYLAXIS Mills And Derivatives Allergy (Severe, Verified 08/30/17 04:29) ANAPHYLAXIS enalapril Allergy (Severe, Verified 08/30/17 04:29) HIVES heparin Allergy (Severe, Verified 08/30/17 04:29) ANAPHYLAXIS latex Allergy (Severe, Verified 08/30/17 04:29) ANAPHYLAXIS Penicillins Allergy (Severe, Verified 08/30/17 04:29) ANAPHYLAXIS Sulfa (Sulfonamide Antibiotics) Allergy (Severe, Verified 08/30/17 04:29) ANAPHYLAXIS levothyroxine sodium [From Levoxyl] Allergy (Intermediate, Verified 08/30/17 04: 29) RASH acetaminophen Allergy (Mild, Verified 08/30/17 04:29) RASH codeine Allergy (Mild, Verified 08/30/17 04:29) RASH enoxaparin Allergy (Mild, Verified 08/30/17 04:29) RASH iodine Allergy (Mild, Verified 08/30/17 04:29) RASH influenza virus vaccine, specific Allergy (Verified 08/30/17 04:29) hives Home Medications: Home Meds Medication Instructions Recorded Confirmed Cinacalcet [Sensipar] 30 mg PO DAILY 08/30/17 08/30/17 Esomeprazole Magnesium [Nexium] 40 mg PO DAILY 08/30/17 08/30/17 Levocetirizine Dihydrochloride 5 mg PO DAILY 08/30/17 08/30/17 [Xyzal] Metoprolol Succinate [Toprol XL] 25 mg PO DAILY 08/30/17 08/30/17 Rosuvastatin Calcium [Crestor] 20 mg PO DAILY 08/30/17 08/30/17 Sevelamer Carbonate [Renvela] 800 mg PO DAILY 08/30/17 08/30/17 Review of Systems - Physician Review All systems were reviewed & negative as marked: Yes - Review of Systems Constitutional: Other (+generalized weakness). absent: Fevers Eyes: Normal ENT: Normal Respiratory: SOB, Cough, Sputum Cardiovascular: Normal. absent: Chest Pain Gastrointestinal: Nausea. absent: Abdominal Pain, Diarrhea Genitourinary Female: Normal. absent: Dysuria, Frequency, Hematuria, Urine Output Changes Musculoskeletal: Arthralgias (+right hip pain). absent: Back Pain, Neck Pain Skin: Normal. absent: Rash Neurological: absent: Dizziness Endocrine: Normal Hemo/Lymphatic: Normal Psychiatric: Normal Physical Exam Vital Signs Reviewed: Yes Vital Signs Temp Pulse Resp BP Pulse Ox 08/30/17 04:37 97.7 F 75 18 128/78 99 Temperature: Afebrile Blood Pressure: Normal Pulse: Regular Respiratory Rate: Normal Appearance: Positive for: Well-Appearing, Non-Toxic, Comfortable Pain Distress: None Mental Status: Positive for: Alert and Oriented X 3 - Systems Exam Head: Present: Atraumatic, Normocephalic Pupils: Present: PERRL Extroacular Muscles: Present: EOMI Conjunctiva: Present: Normal Mouth: Present: Moist Mucous Membranes Neck: Present: Normal Range of Motion. No: Meningeal Signs, MIDLINE TENDERNESS , Paraspinal Tenderness Respiratory/Chest: Present: Rhonchi. No: Respiratory Distress, Accessory Muscle Use Cardiovascular: Present: Regular Rate and Rhythm, Normal S1, S2. No: Murmurs Abdomen: Present: Normal Bowel Sounds. No: Tenderness, Distention, Peritoneal Signs Back: Present: Normal Inspection. No: CVA Tenderness, Midline Tenderness, Paraspinal Tenderness Upper Extremity: Present: Normal Inspection. No: Cyanosis, Edema Lower Extremity: Present: NORMAL PULSES, Tenderness (Pain with right hip flexion ), Neurovascularly Intact, Capillary Refill < 2 s. No: Edema, Cyanosis, Swelling, Erythema, Deformity, Temperature Abnormalties Neurological: Present: GCS=15, CN II-XII Intact, Speech Normal Skin: Present: Warm, Dry, Normal Color. No: Rashes Psychiatric: Present: Alert, Oriented x 3, Normal Insight, Normal Concentration Medical Decision Making ED Course and Treatment: 08/30/17 04:28 Impression: 57 year old female complaining of generalized weakness, right hip pain, shortness of breath, cough, and nausea. Plan: -- EKG -- Chest X-ray -- XR Hips -- Labs, cardiac enzymes, BNP -- Reassess and disposition Prior Visits: Notes and results from previous visits were reviewed. On 08/05/17, pt was seen in the Emergency department for shortness of breath, nausea, vomiting, diarrhea, and generalized weakness. Pt was admitted to the hospital for further evaluation. Progress Notes: 08/30/17 04:48 Reviewed EKG, NSR at [address]/T wave changes. Unchanged from previous 08/05/17. 08/30/17 05:42 Reviewed radiology, Chest X-ray shows mildly increased pulmonary vascular markings. XR Right Hip shows chronic arthritic changes. 08/30/17 06:24 Case was d/w PMD .Accepts to her service.Pt. to undergo HMD today. on consult.Dr. joiner on consult. - Lab Interpretations Lab Results: 08/30/17 05:31 08/30/17 05:31 Lab Results 08/30/17 05:31: WBC 4.5 D, RBC 5.14, Hgb 13.6, Hct 43.5, MCV 84.6 D, MCH 26.5 , MCHC 31.3, RDW 17.4 H, Plt Count 122, MPV 9.6 08/30/17 05:31: Sodium 137, Potassium 5.0, Chloride 99, Carbon Dioxide 20 L, Anion Gap 23 H, BUN 56 H, Creatinine 7.1 H, Est GFR ( Amer) 7, Est GFR ( Non-Af Amer) 6, Random Glucose 106, Calcium 8.2 L, Total Bilirubin 2.0 H, AST 32 , ALT 27, Alkaline Phosphatase 476 H D, Lactate Dehydrogenase 497, Total Creatine Kinase 46, Troponin I Pending, Total Protein 6.4, Albumin 3.4, Globulin 3.0, Albumin/Globulin Ratio 1.2 08/30/17 05:31: PT 15.9 H, INR 1.37 H, APTT 31.1 - RAD Interpretation Radiology Orders: 08/30/17 04:35 CHEST PORTABLE [RAD] Stat 08/30/17 04:36 Hip Right [HIP MIN 2V W/ PELVIS RT] [RAD] Stat Manager Company: ED Physician - EKG Interpretation Interpreted by ED Physician: Yes Type: 12 lead EKG - Medication Orders Current Medication Orders: Discontinued Medications Morphine Sulfate (Morphine) 2 mg IVP STAT STA Stop: 08/30/17 06:16 - Scribe Statement The provider has reviewed the documentation as recorded by the Corinne Friedman Provider Scribe Attestation: All medical record entries made by the Scribe were at my direction and personally dictated by me. I have reviewed the chart and agree that the record accurately reflects my personal performance of the history, physical exam, medical decision making, and the department course for this patient. I have also personally directed, reviewed, and agree with the discharge instructions and disposition. Disposition/Present on Arrival - Present on Arrival Any Indicators Present on Arrival: No History of DVT/PE: No History of Uncontrolled Diabetes: No Urinary Catheter: No History of Decub. Ulcer: No History Surgical Site Infection Followin, Orthopedic Procedures, 5 - Disposition Have Diagnosis and Disposition been Completed?: Yes Diagnosis: ESRD (end stage renal disease), Hip pain, Shortness of breath Disposition: HOSPITALIZED Disposition Time: 06:24 Patient Plan: Observation Condition: STABLE
[2017-08-30 06:04] LABS: HEMOGLOBIN 13.6 g/dL (12.0-16.0); MEAN CORPUSCULAR HEMOGLOBIN 26.5 pg (25.0-35.0); MEAN CORPUSCULAR HGB CONC 31.3 g/dl (31.0-37.0); MEAN PLATELET VOLUME 9.6 fl (7.0-11.0); RBC 5.14 10^6/uL (3.5-6.1); RED CELL DISTRIBUTION WIDTH 17.4 % (11.5-14.5); WHITE BLOOD COUNT 4.5 10^3/ul (4.5-11.0)
[2017-08-30] MEDS ORDERED: Morphine 2 mg/ml ISec IVP STA (06:15)
[2017-08-30 06:17] LABS: INR 1.37 (0.93-1.08); PARTIAL THROMBOPLASTIN TIME 31.1 Seconds (25.1-36.5); PROTHROMBIN TIME 15.9 SECONDS (9.4-12.5)
[2017-08-30 06:19] LABS: MEAN CELL VOLUME 84.6 fl (80.0-105.0)
[2017-08-30 06:21] LABS: ALB/GLOB RATIO 1.2 (1.1-1.8); ALBUMIN 3.4 g/dL (3.0-4.8); CALCIUM 8.2 mg/dL (8.4-10.5)
[2017-08-30 06:25] LABS: TROPONIN I 0.05 ng/mL
[2017-08-30] MEDS ORDERED: Morphine 4 mg/ml ISec IV STA (06:34)
--- NOTE | 2017-08-30 10:47 | RAD ---
HISTORY: sob COMPARISON: Comparison chest dated 08/05/2017 FINDINGS: LUNGS: Mild diffuse pulmonary vascular congestive changes could be related to fluid overload; rule out CHF PLEURA: No significant pleural effusion identified, no pneumothorax apparent. CARDIOVASCULAR: Marked cardiomegaly unchanged. Re- demonstrated are endovascular stents left subclavian and left axillary and left brachial region. . OSSEOUS STRUCTURES: No significant abnormalities. VISUALIZED UPPER ABDOMEN: 3 somewhat linear radiopaque densities left upper quadrant of the abdomen again noted. OTHER FINDINGS: None. IMPRESSION: Mild pulmonary vascular congestion possibly due to fluid overload ; rule out CHF
--- NOTE | 2017-08-30 11:07 | RAD ---
PROCEDURE: All HISTORY: Pain. Possible dislocation COMPARISON: Comparison made with CT scan abdomen pelvis 05/22/2017 which imaged the pelvis and both hips in 3 planes TECHNIQUE: Frontal view of the pelvis and frontal/ frogleg lateral views right hip performed. FINDINGS: Current study re- demonstrates a shallow appearing acetabula with deformed flattened appearing femoral heads right more significant than left. Findings may represent sequela of pre-existing SCFE, subsequent avascular necrosis and degenerative osteoarthritis right greater than left. No evidence of acute displaced fracture nor dislocation. Mild degenerative spondylosis of the lumbosacral spine. IMPRESSION: No evidence of acute displaced fracture nor dislocation. Re- demonstrated are of the deformed flattened appearing femoral heads with secondary DJD as described above.
--- NOTE | 2017-08-30 15:55 | CARD ---
APPROVED REPORT EKG Measurement Heart [id number] ME 190P-9 [id number] <Conclusion> Normal sinus rhythm Left axis deviation Voltage criteria for left ventricular hypertrophy ST & T wave abnormality, consider lateral ischemia Prolonged QT Abnormal ECG
[2017-08-30] MEDS: Metoprolol Succinate 25 mg XL Tab PO SCH (16:28)
[2017-08-30] MEDS: HYDROmorphone 0.5 mg/0.5 ml ISec IVP PRN (16:29)
--- NOTE | 2017-08-30 19:53 | CON ---
DATE: 08/30/2017 REASON FOR CONSULT: Right hip pain. HISTORY OF PRESENT ILLNESS: This is a 57-year-old female with multiple medical problems including endstage renal dialysis, who was admitted yesterday evening with complaints of right hip pain. Patient is known to me. Patient has a long history of bilateral hip pain and has bilateral hip dysplasia with advanced degenerative changes. Patient states yesterday evening she ran and her right lower extremity buckled, but she did not fall. Since then she has had increasing pain. She denies any numbness or tingling going down the leg. PHYSICAL EXAMINATION: GENERAL: This is a female in no apparent distress. She is awake, alert and oriented. EXTREMITIES: Evaluation of the right lower extremity shows that she has some pain with passive range of motion of the right hip. No gross crepitus is appreciated. Her thigh and calf are soft, but she does have some edema, which is unchanged. Of note, edema is also noted on the left lower extremity. She is able to move her ankle and toes. She does have decreased range of motion, decreased internal and external rotation passively. X-rays of the AP pelvis shows bilateral advanced degenerative changes secondary to dysplastic hips. No acute fractures are appreciated. IMPRESSION: Bilateral hip dysplasia and advanced arthritis. PLAN: I had a lengthy discussion with the patient and her significant other. I did explain to her again that ultimately hip replacements would most reliably get rid of her pain, however, given her multiple medical problems, she does understand she is at high risk. Ultimately, the plan is at this point for pain management. I will discuss with her primary care doctor termite renewal inspector management for this patient. For now, I recommended a walker for ambulation, which she states she currently uses at home and physical therapy for gait training. Tunde Wiggins MD
--- NOTE | 2017-08-31 01:38 | CON ---
DATE: 08/30/2017 REASON FOR CONSULTATION: Need for dialysis, status post fall, hyperkalemia, decompensated congestive heart failure. HISTORY OF PRESENT ILLNESS: A 57-year-old lady known to me from outpatient dialysis. Patient did not come for dialysis yesterday. She reports that she fell at home. Her legs gave way. She was unable to get up. She was in severe pain. Her last dialysis was Monday. She denies any chest pain. She denies any palpitations. She denies any loss of consciousness. She denies any nausea, vomiting. She does have chronic diarrhea. She denies any urinary complaints. She does have severe pain in her hips. PAST MEDICAL AND SURGICAL HISTORY: Hypertension, ESRD, CAD, congenital hip dysplasia, pericardial effusion, pericardial window, severe anemia, secondary hyperparathyroidism. FAMILY HISTORY: Hypertension. SOCIAL HISTORY: Smoker, no alcohol use, no IV drug abuse. ALLERGIES: ASPIRIN, CIPRO, ENALAPRIL, HEPARIN, LATEX, PENICILLIN, SULFONAMIDES, SYNTHROID, TYLENOL, CODEINE, LOVENOX. MEDICATIONS AT HOME: Xyzal, Toprol-XL 25, cinacalcet 30, sevelamer 800, Crestor 20, Nexium 40. REVIEW OF SYSTEMS: All systems are reviewed, pertinent positives as mentioned in history of presenting illness, rest unremarkable. PHYSICAL EXAMINATION: GENERAL: Pale, fatigued-appearing, middle-aged lady, seen in the dialysis unit. VITAL SIGNS: Blood pressure 139/79, heart rate 74, respiratory rate 18, temperature 97.7. HEENT: Normocephalic, atraumatic, positive pallor. NECK: Supple, no JVD. LUNGS: Bilateral equal air entry, bilateral equal expansion anteriorly, no rales appreciated. CARDIAC: S1, S2, regular rate and rhythm. Positive murmur. No rub. ABDOMEN: Soft, diffuse tenderness, bowel sounds present. EXTREMITIES: 3+ pitting edema of the lower extremities. INTAKE AND OUTPUT: Not charted. LABORATORY DATA: WBC 4.5, hemoglobin 13.6, hematocrit 43.5, platelets 122. Sodium 137, potassium 5.0, chloride 99, CO2 20, BUN 56, creatinine 7.1, glucose 106, calcium 8.2, phosphorus not checked. Total bili 2.0, alk phos 476. BNP 771,000, albumin 3.4. X-ray of the hip and pelvis, no evidence of acute displaced fracture nor dislocation. Chest x-ray showing mild pulmonary vascular congestion. CURRENT MEDICATIONS: Dilaudid, Renagel, Sensipar, Toprol-XL. ASSESSMENT: 1. Status post fall, history of congenital hip dysplasia. 2. Cachexia, malnutrition. 3. Hypertension. 4. End-stage renal disease.. 5. History of gastrointestinal bleed. PLAN: 1. Dialysis today, ultrafiltrate about 3 kg as tolerated. 2. Monitor respiratory status. 3. Pain management. 4. Physical therapy. Mansi Rose MD
--- NOTE | 2017-08-31 04:59 | HP ---
HISTORY OF PRESENT ILLNESS: The patient is 57-year-old, came to emergency room after she fell. She states she was having intractable hip pain and she just clogged on the floor and has difficulty getting up. Her boyfriend called ambulance and was brought to emergency room. The patient denies any loss of consciousness. She states that her hip pain is getting worse. She also complains of generalized weakness, complains of shortness of breath, and she missed her dialysis yesterday and she also felt like her right hip popped and she was afraid it is dislocated, complaining of pain upon moving right leg. PAST MEDICAL HISTORY: Her past medical history is significant for : 1. End-stage renal disease, on hemodialysis. 2. Hypertension. 3. COPD. 4. Chronic anemia. 5. History of C. diff. 6. History of small brain aneurysm that is being followed in [place]. ALLERGIES: THE PATIENT HAS MULTIPLE ALLERGIES INCLUDING ASPIRIN, CIPROFLOXACIN, , ENALAPRIL, HEPARIN, FLU VACCINE, IODINE, ENOXAPARIN, CODEINE, ACETAMINOPHEN, LEVOTHYROXINE, SULFA, PENICILLIN, LATEX. MEDICATIONS AT HOME: She is on Xyzal 5 mg daily, metoprolol 25 mg daily, Sensipar 30 mg daily, Renvela 800 mg daily, Crestor 20 mg daily, and Nexium. SURGICAL HISTORY: Status post cholecystectomy and history of congenital bilateral hip problem and had some surgery in the childhood. SOCIAL HISTORY: She is single, has three grown-up children and lives with boyfriend. She is active smoker up until few months ago. She still smokes. PHYSICAL EXAMINATION: GENERAL: Complaining of mild shortness of breath, looks pale. VITAL SIGNS: She is afebrile, pulse 70, respirations 18, blood pressure 159/85. LUNGS: Bilateral fair airflow, few respiratory rhonchi. HEART: S1 and S2 audible. ABDOMEN: Soft, nontender. No rebound. No guarding. NEUROLOGIC: The patient is awake, alert, oriented, able to communicate. She had limited mobility because of bilateral hip pain. LABORATORY DATA: WBCs 4.5, hemoglobin 13, hematocrit 43, and platelets 122. PT 15.9 and INR 1.37. Chemistry; sodium 137, potassium 4.0, chloride 99, CO2 of 20, BUN 53, creatinine 7.1, and blood sugar of 106. ASSESSMENT AND PLAN: 1. Fluid overload secondary to missed hemodialysis. 2. End-stage renal disease, on hemodialysis. 3. Bilateral congenital hip deformity with hip pain. 4. Peptic ulcer disease. 5. Status post cholecystectomy. The patient had x-ray of the hip and the pelvis done, does not show any dislocation; however, she has severe degenerative changes. PLAN: So plan is the patient will get emergent hemodialysis. She has been started on analgesic, was evaluated by Dr. Wiggins. There is nothing acute going on, can be discharged in a.m. once she is stable. The patient already had an appointment with in [place], who might do her hip replacement, although the patient is at high-risk, but she is willing to take risk. Shawn Gomez MD
[2017-08-31] MEDS: HYDROmorphone 0.5 mg/0.5 ml ISec IVP PRN ×2 (05:19→11:56)
[2017-08-31] MEDS ORDERED: Prostat 15 g packet PO ONE (06:47)
[2017-08-31 07:09] LABS: BASO # 0.09 K/mm3 (0.0-2.0); BASO % 1.5 % (0.0-3.0); EOS # 0.2 (0.0-0.7); EOS % 2.5 % (1.5-5.0); GRAN # 3.85 (1.4-6.5); GRAN % 64.1 % (50.0-68.0); HEMOGLOBIN 12.9 g/dL (12.0-16.0); LYMPH # 1.2 (1.2-3.4); LYMPH % 20.2 % (22.0-35.0); MEAN CELL VOLUME 87.6 fl (80.0-105.0); MEAN CORPUSCULAR HEMOGLOBIN 25.8 pg (25.0-35.0); MEAN CORPUSCULAR HGB CONC 29.5 g/dl (31.0-37.0); MEAN PLATELET VOLUME 9.8 fl (7.0-11.0); MONO # 0.7 (0.1-0.6); MONO % 11.7 % (1.0-6.0); RED CELL DISTRIBUTION WIDTH 17.4 % (11.5-14.5)
[2017-08-31 07:34] LABS: ALB/GLOB RATIO 1.1 (1.1-1.8); ALBUMIN 3.1 g/dL (3.0-4.8); CALCIUM 8.2 mg/dL (8.4-10.5); MAGNESIUM 2.2 mg/dL (1.7-2.2)
[2017-08-31 08:32] VITALS: RESP 20; TEMP 98.1; O2SAT 97
[2017-08-31] MEDS: Metoprolol Succinate 25 mg XL Tab PO SCH (10:24)
[2017-08-31 10:27] VITALS: BP 146/73; PULSE 71
--- NOTE | 2017-08-31 19:10 | PN ---
DATE: 08/31/2017 SUBJECTIVE: The patient is seen lying in bed. She is awake and alert. She reports she is feeling better. She complains of pain in her abdomen. She also complains of pain in her hips. She denies any chest tightness. PHYSICAL EXAMINATION: GENERAL: Thinly built, middle-aged lady lying in bed. VITAL SIGNS: Blood pressure 146/73, heart rate 71, respiratory rate 20, temperature 98.1. HEENT: Normocephalic, atraumatic, positive pallor. NECK: Supple, no JVD. LUNGS: Bilateral equal air entry, no rales. CARDIAC: S1 and S2. Regular, rate, and rhythm. No murmur, no rub. ABDOMEN: Soft, nondistended, positive tenderness in the left upper quadrant, bowel sounds present. EXTREMITIES: Trace lower extremity edema. INTAKE AND OUTPUT: Not charted. LABORATORY DATA: WBC 6, hemoglobin 12.9, hematocrit . Sodium 141, potassium 4.0, chloride 101, CO2 of 27, BUN 30, creatinine 5.0, glucose 116, calcium 8.2, phosphorus 3.0 magnesium 2.2, total bili 1.7, albumin 3.1. CURRENT MEDICATIONS: Dilaudid, Renagel, Sensipar, Toprol XL. ASSESSMENT: 1. Fluid overload. 2. Status post fall at home secondary to congenital hip deformity. 3. End-stage renal disease. 4. Peptic ulcer disease. 5. History of Clostridium difficile colitis. 6. History of pericardial window/pericardial effusion. PLAN: 1. today, today is her regular day. 2. Physical therapy. 3. No objection to discharge after dialysis. Mansi Rose MD
--- NOTE | 2017-09-01 03:36 | DS ---
HISTORY OF PRESENT ILLNESS: The patient is 57-year-old, seen and examined, seen walking with the cane. Still has pain in the right hip. Less shortness of breath. No cough or congestion. No fever. No nausea, vomiting, or diarrhea. Eating and tolerating. PHYSICAL EXAMINATION: VITAL SIGNS: She is afebrile, pulse 80, respirations 20 and blood pressure 146/73. LUNGS: Bilateral soft crackle at bases. HEART: S1 and S2 audible. ABDOMEN: Soft and nontender. No rebound. No guarding. NEUROLOGIC: She is awake and alert, able to communicate. Able to ambulate with the cane and walker. LABORATORY DATA: WBC 6.0, hemoglobin 12.9, hematocrit 43, and platelets 143. Chemistry; sodium 141, potassium 4.0, chloride 101, CO2 of 27, BUN 30, creatinine 5.0, and blood sugar of 116. ASSESSMENT: 1. Pulmonary edema and fluid overload since she missed her hemodialysis. 2. Congenital bilateral hip degenerative disease. 3. End-stage renal disease, on hemodialysis. 4. Chronic anemia. 5. History of Clostridium difficile. PLAN: The patient is clinically stable at this point, she is suppose to see on 09/19/2017. In the meantime, she will get analgesic as needed. She will be discharge home today. Shawn Gomez MD
== END 2017-08-31 16:15 | disposition home health service (06) ==
LOC: ED 04:19 → ERH 06:30 → 3RNO 14:55
PROVIDERS: ADMIT Internal Medicine; ATTEND Internal Medicine
DX: I13.2 Hypertensive heart and chronic kidney disease with heart failure and with stage 5 chronic kidney disease, or end stage renal disease (principal); I50.9 Heart failure, unspecified; N18.6 End stage renal disease; Z99.2 Dependence on renal dialysis; M16.0 Bilateral primary osteoarthritis of hip; R64 Cachexia; E46 Unspecified protein-calorie malnutrition; Q65.89 Other specified congenital deformities of hip; N25.81 Secondary hyperparathyroidism of renal origin; I25.10 Atherosclerotic heart disease of native coronary artery without angina pectoris; D64.9 Anemia, unspecified; J44.9 Chronic obstructive pulmonary disease, unspecified; K21.9 Gastro-esophageal reflux disease without esophagitis; F17.210 Nicotine dependence, cigarettes, uncomplicated; K27.9 Peptic ulcer, site unspecified, unspecified as acute or chronic, without hemorrhage or perforation; K52.9 Noninfective gastroenteritis and colitis, unspecified; Z86.19 Personal history of other infectious and parasitic diseases; Z91.81 History of falling; Z90.49 Acquired absence of other specified parts of digestive tract
CPT/HCPCS: 36415; 71045; 73502; 80053; 82550; 83615; 83735; 83880; 84100; 84484; 85025; 85027; 85610; 85730; 93005; 96374; 96375; 96376; 97162; 97530; 99285; G0257; G0378; G8978; G8979; J1170; J2270

== ENCOUNTER 2017-09-29 22:59 | Inpatient (IN) | payer MEDICARE, BC ==
[2017-09-29 23:18] VITALS: BMI 24.1
--- NOTE | 2017-09-29 23:32 | ED PDOC ---
Arrival/HPI - General Chief Complaint: Lower Extremity Problem/Injury Time Seen by Provider: 09/29/17 23:31 Historian: Patient, Spouse - History of Present Illness Narrative History of Present Illness (Text): 09/29/17 23:32 This 57 yo female with presents to this ED c/o b/l lower extremity pain x 1 day. Patient stated she had a total right hip replacement x 1 week. Patient also noted left lower leg redness x 1 day. Patient denies cp, sob, recent trauma, sick contact, fever, dizziness, or JURADO. Context: Home Past Medical History - Provider Review Nursing Documentation Reviewed: Yes - Past History Past History: Non-Contributing - Infectious Disease Hx of Infectious Diseases: None - Tetanus Immunization Tetanus Immunization: Up to Date - Cardiac Hx Cardiac Disorders: Yes Hx Congestive Heart Failure: Yes Hx Hypertension: Yes - Pulmonary Hx Chronic Obstructive Pulmonary Disease (COPD): Yes - Neurological Hx Neurological Disorder: No - HEENT Hx HEENT Disorder: Yes Hx Blind: Yes (partial, left eye) - Renal Hx Renal Failure: Yes (Hemodialysis (T, TH,Sat)-SHUNT LEFT UPPER ARM.) - Endocrine/Metabolic Hx Endocrine Disorders: Yes (parathyroid) - Hematological/Oncological Hx Blood Disorders: Yes Hx Anemia: Yes - Integumentary Hx Dermatological Disorder: Yes (LEFT UPPER ARM SHUNT) Other/Comment: CALCIPHYLAXIS-DRY ROUND RASH ALL OVER HER BODY,ARMS,LEG. BILATERAL LEG EDEMA +3,SKIN TIGHTNESS,DISCOLORED DARK BROWN SKIN.TIGHT. - Musculoskeletal/Rheumatological Hx Musculoskeletal Disorders: Yes Hx Falls: Yes Hx Unsteady Gait: Yes (CANE,ROLLING WALKER) - Gastrointestinal Hx Gastrointestinal Disorders: Yes (GI BLEED,SBO,APPENDICITIS,INGRAM'S ESOPHAGUS) - Genitourinary/Gynecological Hx Genitourinary Disorders: Yes (OLIGURIA) - Psychiatric Hx Psychophysiologic Disorder: Yes (SMOKED CIGARETTES QUIT ) Hx Substance Use: No - Surgical History Hx Cholecystectomy: Yes Hx Orthopedic Surgery: Yes (bilateral hips) Other/Comment: left arm fistula , c-sectionx2, tonsilectomy - Anesthesia Hx Anesthesia Reactions: No Hx Malignant Hyperthermia: No - Suicidal Assessment Feels Threatened In Home Enviroment: No Family/Social History - Physician Review Nursing Documentation Reviewed: Yes Family/Social History: Other (noncontributory) Smoking Status: Former Smoker Hx Alcohol Use: No Hx Substance Use: No Hx Substance Use Treatment: No Allergies/Home Meds Allergies/Adverse Reactions: Allergies aspirin Allergy (Severe, Verified 09/29/17 23:18) ANAPHYLAXIS ciprofloxacin Allergy (Severe, Verified 09/29/17 23:18) ANAPHYLAXIS [place] And Derivatives Allergy (Severe, Verified 09/29/17 23:18) ANAPHYLAXIS enalapril Allergy (Severe, Verified 09/29/17 23:18) HIVES heparin Allergy (Severe, Verified 09/29/17 23:18) ANAPHYLAXIS latex Allergy (Severe, Verified 09/29/17 23:18) ANAPHYLAXIS Penicillins Allergy (Severe, Verified 09/29/17 23:18) ANAPHYLAXIS Sulfa (Sulfonamide Antibiotics) Allergy (Severe, Verified 09/29/17 23:18) ANAPHYLAXIS levothyroxine sodium [From Levoxyl] Allergy (Intermediate, Verified 09/29/17 23: 18) RASH acetaminophen Allergy (Mild, Verified 09/29/17 23:18) RASH codeine Allergy (Mild, Verified 09/29/17 23:18) RASH enoxaparin Allergy (Mild, Verified 09/29/17 23:18) RASH iodine Allergy (Mild, Verified 09/29/17 23:18) RASH influenza virus vaccine, specific Allergy (Verified 09/29/17 23:18) hives Home Medications: Home Meds Medication Instructions Recorded Confirmed Cinacalcet [Sensipar] 30 mg PO DAILY 08/30/17 09/30/17 Esomeprazole Magnesium [Nexium] 40 mg PO DAILY 08/30/17 09/30/17 Review of Systems - Review of Systems Constitutional: Normal. absent: Fatigue, Weight Change, Fevers, Night Sweats Eyes: Normal ENT: Normal Respiratory: Normal Cardiovascular: Normal Gastrointestinal: Normal Genitourinary Female: Normal Musculoskeletal: Other (right hip pain) Skin: Cellulitis (left lower extremity) Neurological: Normal Endocrine: Normal Hemo/Lymphatic: Normal Psychiatric: Normal Physical Exam Vital Signs Temp Pulse Resp BP Pulse Ox 09/30/17 02:15 95 H 20 127/70 95 09/30/17 00:15 97.7 F 09/29/17 23:12 98.1 F 86 18 145/73 99 Temperature: Afebrile Blood Pressure: Normal Pulse: Regular Respiratory Rate: Normal Appearance: Positive for: Well-Appearing, Non-Toxic, Comfortable Pain Distress: Mild Mental Status: Positive for: Alert and Oriented X 3 - Systems Exam Head: Present: Atraumatic, Normocephalic Pupils: Present: PERRL Extroacular Muscles: Present: EOMI Conjunctiva: Present: Normal Mouth: Present: Moist Mucous Membranes Pharnyx: Present: Normal. No: ERYTHEMA, EXUDATE, TONSILS ENLARGED Neck: Present: Normal Range of Motion, Trachea Midline. No: Meningeal Signs, MIDLINE TENDERNESS, Paraspinal Tenderness, Lymphadenopathy Respiratory/Chest: Present: Clear to Auscultation, Good Air Exchange. No: Respiratory Distress, Accessory Muscle Use Cardiovascular: Present: Regular Rate and Rhythm, Normal S1, S2. No: Murmurs Abdomen: Present: Normal Bowel Sounds. No: Tenderness, Distention, Peritoneal Signs, Rebound, Guarding Back: Present: Normal Inspection. No: CVA Tenderness Upper Extremity: Present: Normal Inspection, Normal ROM, NORMAL PULSES, Neurovascularly Intact, Capillary Refill < 2s. No: Cyanosis, Edema Lower Extremity: Present: NORMAL PULSES, Temperature Abnormalties ((+) left lowre leg is mild swollen, erythematous, and warmth to touch), Neurovascularly Intact, Capillary Refill < 2 s, Other ((+) right hip surgical wound is non- tender, no surrounding erythema, no discharge.). No: Edema, CALF TENDERNESS Neurological: Present: GCS=15, CN II-XII Intact, Speech Normal, Motor Func Grossly Intact, Normal Sensory Function, Normal Cerebellar Funct Skin: Present: Warm, Dry, Normal Color. No: Rashes Psychiatric: Present: Alert, Oriented x 3, Normal Insight, Normal Concentration Medical Decision Making ED Course and Treatment: 09/30/17 01:[address] Gomez regarding patient c/o right hip pain, left lower leg pain, and left lower leg cellulitis. I reviewed labs, b/l venous doppler lower extremity result was negative for DVT. Dr. Gomez agreed with plan for admission for cellulitis. She recommended Dr. Walsh ID doctor 09/30/17 01:56 Patient stated she has been ambulatory with a walker at home prior onset of pain. Patient agrees with plan for admission. Re-evaluation Time: 01:53 Reassessment Condition: Re-examined, Improving,but remains with symptoms - Lab Interpretations Microbiology Results: Microbiology Results 09/30/17 00:15 Blood Blood Culture - Preliminary NO GROWTH AFTER 4 DAYS 09/29/17 23:55 Blood Blood Culture - Preliminary NO GROWTH AFTER 4 DAYS Lab Results: 09/29/17 23:55 09/29/17 23:55 Lab Results 09/29/17 23:55: Sodium 137, Potassium 3.5 L, Chloride 95 L, Carbon Dioxide 31, Anion Gap 14, BUN 28 H, Creatinine 4.4 H, Est GFR ( Amer) 12, Est GFR ( Non-Af Amer) 10, Random Glucose 109, Calcium 9.7, Phosphorus 3.5, Magnesium 2.1 , Total Bilirubin 3.6 H, AST 54 H D, ALT 21, Alkaline Phosphatase 916 H D, Total Protein 5.9, Albumin 2.8 L, Globulin 3.0, Albumin/Globulin Ratio 0.9 L 09/29/17 23:55: PT 13.8 H, INR 1.21 H, APTT 30.5 02 23:55: WBC 6.2, RBC 3.29 L, Hgb 8.5 L D, Hct 27.8 L, MCV 84.5 D, MCH 25.8, MCHC 30.6 L, RDW 18.4 H, Plt Count 140, MPV 10.0, Gran % 72.0 H, Lymph % ( Auto) 13.5 L, [place] % (Auto) 9.6 H, Eos % (Auto) 4.7, Baso % (Auto) 0.2, Gran # 4.45, Lymph # (Auto) 0.8 L, [place] # (Auto) 0.6, Eos # (Auto) 0.3, Baso # (Auto) 0.01, ESR 60 H I have reviewed the lab results: Yes Interpretation: No sign. chg./baseline - RAD Interpretation Radiology Orders: 09/29/17 23:36 CHEST PORTABLE [RAD] Stat 09/29/17 23:42 DUPLEX LOWER EXTRM VEIN BILAT [US] Stat 09/29/17 23:43 Hip right [HIP MIN 4V W/ PELVIS RT] [RAD] Stat - Medication Orders Current Medication Orders: Discontinued Medications Atorvastatin Calcium (Lipitor) 80 mg PO DIN [facility] Last Admin: 10/02/17 16:08 Dose: 80 mg Benzonatate (Tessalon Perles) 100 mg PO TID [facility] Last Admin: 10/03/17 13:31 Dose: 100 mg Cinacalcet (Sensipar) 30 mg PO DAILY [facility] Last Admin: 10/03/17 10:45 Dose: 30 mg Dabigatran (Pradaxa) 75 mg PO Q12 LEX PRN Reason: Protocol Last Admin: 10/03/17 10:45 Dose: 75 mg Darbepoetin Kerwin (Aranesp) 100 mcg SC ONCE ONE Stop: 09/30/17 21:20 Last Admin: 09/30/17 22:01 Dose: 100 mcg Subcutaneous Administrations Document 09/30/17 22:01 STOCP (Rec: 09/30/17 22:01 STOCP [id number]) Injection Site MAR Injection Site Right Arm Charges for Administration # of Subcutaneous Administrations 1 Hydromorphone HCl (Dilaudid) 0.5 mg IVP STAT STA Stop: 09/30/17 00:54 Last Admin: 09/30/17 01:26 Dose: 0.5 mg MAR Pain Assessment Document 09/30/17 01:26 SS (Rec: 09/30/17 01:27 SS [id number]) Pain Reassessment Is this a pain reassessment? No Sleep Is patient sleeping during reassessment? No Presence of Pain Presence of Pain Yes Pain Scale Used Pain Scale Used Numeric Location Left, Right or Bilateral Right Pain Location Body Site Hip Description Description Sharp Intensity of Pain at present 10 IVP Administration Document 09/30/17 01:26 SS (Rec: 09/30/17 01:27 SS [id number]) Charges for Administration # of IVP Administrations 1 Hydromorphone HCl (Dilaudid) 1 mg PO Q4H PRN PRN Reason: Pain, moderate (4-7) Hydromorphone HCl (Dilaudid) 2 mg PO Q4H PRN PRN Reason: Pain, moderate (4-7) Last Admin: 10/02/17 09:53 Dose: 2 mg MAR Pain Assessment Document 10/02/17 09:53 ARBEN (Rec: 10/02/17 09:54 [facility] [id number]) Pain Reassessment Is this a pain reassessment? Yes Presence of Pain Presence of Pain Yes Pain Scale Used Pain Scale Used Numeric Location Left, Right or Bilateral Right Pain Location Body Site Hip Description Description Constant Intensity of Pain at present 9 Acceptable Level of Pain 0-5 Re-Assess: BANNER Pain Assessment Document 10/02/17 10:53 ARBEN (Rec: 10/02/17 16:12 [facility] [id number]) Pain Reassessment Is this a pain reassessment? Yes Presence of Pain Presence of Pain Yes Pain Scale Used Pain Scale Used Numeric Description Intensity of Pain at present 4 Pain not relieved and LIP/MD was No notified Hydromorphone HCl (Dilaudid) 1 mg PO Q4H PRN PRN Reason: Pain, moderate (4-7) Last Admin: 10/03/17 15:47 Dose: 1 mg BANNER Pain Assessment Document 10/03/17 15:47 ARBEN (Rec: 10/03/17 15:47 [facility] [id number]) Pain Reassessment Is this a pain reassessment? No Presence of Pain Presence of Pain Yes Pain Scale Used Pain Scale Used Numeric Location Left, Right or Bilateral Right Pain Location Body Site Hip Description Description Constant Intensity of Pain at present 7 Vancomycin HCl (Vancomycin 1gm) 1 gm in 250 mls @ 167 mls/hr IVPB STAT STA PRN Reason: Protocol Stop: 09/30/17 02:49 Last Admin: 09/30/17 01:43 Dose: 167 mls/hr eMAR Start Stop Document 09/30/17 01:43 SS (Rec: 09/30/17 01:48 SS [id number]) Intravenous Solution Start Date 09/30/17 Start Time 01:45 End Date 09/30/17 End time 03:15 Total Infusion Time 90 Levalbuterol HCl (Xopenex) 1.25 mg IH [id number] [facility] Last Admin: 10/03/17 13:34 Dose: 1.25 mg Linezolid (Zyvox) 600 mg PO BID LEX PRN Reason: Protocol Last Admin: 10/03/17 10:45 Dose: 600 mg Loratadine (Claritin) 10 mg PO DAILY [facility] Last Admin: 10/03/17 10:46 Dose: 10 mg Metoprolol Succinate (Toprol Xl) 25 mg PO DAILY [facility] Last Admin: 10/03/17 10:45 Dose: 25 mg BANNER Pulse and Blood Pressure Document 10/03/17 10:45 ARBEN (Rec: 10/03/17 10:46 [facility] [place]-[id number]) Pulse Pulse Rate (60-90) 66 Blood Pressure Blood Pressure (100/60-150/90) 144/65 Sevelamer HCl (Renagel) 800 mg PO DAILY LEX Last Admin: 10/03/17 10:45 Dose: 800 mg Disposition/Present on Arrival - Present on Arrival Any Indicators Present on Arrival: No History of DVT/PE: No History of Uncontrolled Diabetes: No Urinary Catheter: No History of Decub. Ulcer: No History Surgical Site Infection Following: Orthopedic Procedures - Disposition Have Diagnosis and Disposition been Completed?: Yes Diagnosis: Cellulitis Disposition: HOSPITALIZED Disposition Time: 02:00 Condition: STABLE
[2017-09-30 00:08] LABS: BASO # 0.01 K/mm3 (0.0-2.0); BASO % 0.2 % (0.0-3.0); EOS # 0.3 (0.0-0.7); EOS % 4.7 % (1.5-5.0); GRAN # 4.45 (1.4-6.5); HEMOGLOBIN 8.5 g/dL (12.0-16.0); LYMPH # 0.8 (1.2-3.4); LYMPH % 13.5 % (22.0-35.0); MEAN CELL VOLUME 84.5 fl (80.0-105.0); MEAN CORPUSCULAR HEMOGLOBIN 25.8 pg (25.0-35.0); MEAN CORPUSCULAR HGB CONC 30.6 g/dl (31.0-37.0); MONO # 0.6 (0.1-0.6); MONO % 9.6 % (1.0-6.0); RBC 3.29 10^6/uL (3.5-6.1); RED CELL DISTRIBUTION WIDTH 18.4 % (11.5-14.5); WHITE BLOOD COUNT 6.2 10^3/ul (4.5-11.0)
[2017-09-30 00:16] LABS: INR 1.21 (0.93-1.08); PARTIAL THROMBOPLASTIN TIME 30.5 Seconds (25.1-36.5); PROTHROMBIN TIME 13.8 SECONDS (9.4-12.5)
[2017-09-30 00:20] LABS: ALB/GLOB RATIO 0.9 (1.1-1.8); ALBUMIN 2.8 g/dL (3.0-4.8); CALCIUM 9.7 mg/dL (8.4-10.5); MAGNESIUM 2.1 mg/dL (1.7-2.2)
[2017-09-30] MEDS ORDERED: HYDROmorphone 0.5 mg/0.5 ml ISec IVP STA (00:53)
[2017-09-30] MEDS ORDERED: HYDROmorphone 0.5 mg/0.5 ml ISec ONE (01:02)
[2017-09-30] MEDS ORDERED: Vancomycin 1gm in NS 250ml 1 GM/250 ML BAG IVPB STA (01:20)
--- NOTE | 2017-09-30 09:02 | RAD ---
HISTORY: admission COMPARISON: 08/30/2017. FINDINGS: There is stable appearance of the left subclavian stent. LUNGS: The lungs are well inflated. There is worsening pulmonary venous congestion with pulmonary redistribution and mild interstitial pulmonary edema with PLEURA: No significant pleural effusion identified, no pneumothorax apparent. CARDIOVASCULAR: There is persistent moderate cardiomegaly. Atherosclerotic aortic arch calcifications are present. OSSEOUS STRUCTURES: No significant abnormalities. VISUALIZED UPPER ABDOMEN: Normal. OTHER FINDINGS: None. IMPRESSION: Worsening pulmonary venous congestion.
--- NOTE | 2017-09-30 10:33 | CON ---
DATE: The patient admitted for Dr. Gomez. REFERRING MD: Dr. Gomez. REASON FOR CONSULTATION: To provide dialysis services for the patient admitted with a left lower extremity cellulitis one week post right total hip surgery replacement at [facility]. HISTORY OF PRESENT ILLNESS: The patient is a 57-year-old white female, known to us from outpatient and inpatient followup. The patient is a chronic dialysis patient with end-stage renal disease on Monday, Monday, Monday dialysis, currently dialyzing at the hospital on a Monday, , Monday schedule. Status post right total hip surgery replacement 1 week ago at [facility]. The patient refused rehab. History of COPD, past history of cigarette smoking. Hypertension, pulmonary hypertension, history of chronic abdominal pain and headaches. History of reflux, history of secondary hyperparathyroidism and anemia. The patient presented to the Emergency Room with discomfort, pain, swelling, and redness of her left lower extremity and was diagnosed with cellulitis. She is currently admitted for antibiotic therapy. ID evaluation is pending. PAST MEDICAL HISTORY: Significant for end-stage renal disease, history of secondary hyperparathyroidism, history of anemia, history of reflux, history of pulmonary hypertension with hypertension, history of COPD, past history of cigarettes, status post right total hip replacement 1 week ago at [facility]. The patient has a left upper extremity AV fistula. MEDICATIONS AT HOME: Include that of Renvela, Crestor, Toprol, Xyzal, Nexium, and Sensipar. ALLERGIES: THE PATIENT IS ALLERGIC TO ASPIRIN, CIPROFLOXACIN, CITRUS AND DERIVATIVES, ENALAPRIL, HEPARIN, LATEX, PENICILLIN, SULFA, LEVOXYL, ACETAMINOPHEN, CODEINE, ENOXAPARIN, IODINE, AND INFLUENZA VIRUS VACCINE. SOCIAL HISTORY: The patient states that she has discontinued cigarette smoking. No recent alcohol use. FAMILY HISTORY: Noncontributory. REVIEW OF SYSTEMS: CONSTITUTIONAL: The patient states she has been doing fair since her discharge from [facility], status post hip replacement surgery. Appetite has been stable. Weight has been stable. ENT: Denies any hearing or visual problems. PULMONARY: History of COPD, history of bronchitis, history of emphysema. At present, no shortness of breath. CARDIAC: Past history of pericardial effusion, status post pericardial window. No known history of coronary artery disease. GI: History of GI bleeding, but no recent bleeding. No nausea, no vomiting, no abdominal pain, no constipation, no diarrhea. : Positive for end-stage renal disease. [employer]: Postmenopausal. ENDOCRINE: No history of diabetes. Positive history of secondary hyperparathyroidism. MUSCULOSKELETAL: Discomfort and pain at the surgical site, right hip and pain in her left hip. NEURO: Negative for CVA, TIA or seizures, history of near syncope. HEME/ONC: History of anemia secondary to chronic kidney disease. PSYCHIATRIC: History is negative. PHYSICAL EXAMINATION GENERAL: The patient is currently seen on 5R. She is lying supine in bed. She appears to be comfortable. She will be going for dialysis later today. VITAL SIGNS: Blood pressure presently 132/71, temperature 98.1, pulse of 94, respiratory rate of 18, pulse ox is 98%. HEENT: Exam shows her to be normocephalic, atraumatic. Conjunctivae are pale. Sclerae nonicteric. Pupils equal, reactive to light and accommodation. Extraocular muscles are intact. Posterior pharynx is normal. NECK: Supple. No neck vein distention. No thyromegaly. No lymphadenopathy. No bruits. CHEST: Occasional rhonchi. No wheezing. No rales. CARDIOVASCULAR: Shows a normal S1, S2. Soft systolic murmur, left lower sternal border. No S3, no S4. No rub. ABDOMEN: Soft. Bowel sounds normal. No rebound, guarding or masses. EXTREMITIES: Show a working left upper extremity AV fistula. Positive thrill. Positive bruit. Positive pseudoaneurysm. Right hip surgical site appears minimally edematous with no significant erythema, warmth or tenderness. Left lower leg shows area of redness with increased warmth and tenderness to touch. Diminished lower extremity pulses. Neuro: Shows her be alert, oriented x3 with no gross focal motor or sensory deficits. LABORATORY DATA AND IMAGING: Ultrasound of her lower extremity is pending at the time of dictation. Hip and pelvis x-rays are pending. Chest x-ray is pending. EKG report is pending. Labs: CBC: White blood cell count 6.2, hemoglobin 8.5 with a platelet count of 140,000. Coags: PT of 13.8 with a PTT of 30.5. Chemistry showed normal sodium 137, potassium 3.5, chloride 95 with a BUN of 28 and a creatinine of 4.4. Calcium was 9.7 with a phosphorus of 3.5, magnesium 2.1. Glucose is 109. Mild elevation of her AST at 54. Bilirubin is mildly elevated at 3.6. Alkaline phosphatase is 916. Albumin is 2.8. Microbiology, no cultures available. ASSESSMENT 1. Cellulitis of her left lower extremity. The patient will be evaluated by ID and started on antibiotic therapy. The patient has multiple sensitivities to antibiotics so we will await Infectious Disease recommendation. 2. Status post right hip surgery one week ago at [facility]. Wound site appears minimally edematous, very minimal erythema. No drainage. Dressings and Steri-Strips is still intact. 3. History of end-stage renal disease. The patient will continue three times a week dialysis. She is scheduled for today. 4. History of chronic obstructive pulmonary disease with past history of cigarette smoking. It is unclear to me whether the patient has gone back to smoking cigarettes. 5. History of hypertension, currently stable. Blood pressure is controlled, on beta-edith therapy. 6. History of pulmonary hypertension, stable. This is likely secondary to significant chronic obstructive pulmonary disease. 7. History of gastroesophageal reflux disease with abdominal pain. Presently, no abdominal pain. 8. History of secondary hyperparathyroidism. The patient will continue Sensipar, renal diet, and binder therapy. 9. History of anemia secondary to chronic kidney disease. The patient will receive maximum dose of Aranesp on dialysis. Iron levels were checked routinely in the dialysis unit. PLAN 1. IV antibiotic therapy. 2. Awaiting input from Infectious Disease. 3. Check Doppler study of the lower extremity to rule out a DVT. 4. Continued wound care followup for her right total hip replacement surgery. 5. Continue routine maintenance dialysis, discussed with renal staff earlier this morning. 6. Continue all dietary restrictions and binder therapy. Thank you for letting me partake and share in the care of our mutual patient. Deon Mathews MD
--- NOTE | 2017-09-30 11:00 | RAD ---
PROCEDURE: Right Hip Radiographs. HISTORY: pain COMPARISON: 08/30/2017. FINDINGS: BONES: The pelvic ring is intact. There is no acute displaced fracture or bone destruction. Bone alignment is normal. JOINTS: Status post total bipolar cemented right hip arthroplasty. There is presumable avascular necrosis in the left femoral head with secondary degenerative osteoarthrosis SOFT TISSUES: Normal. OTHER FINDINGS: None. IMPRESSION: Status post role bipolar cemented right hip arthroplasty. No acute complications. Presumable avascular necrosis in the left femoral head with secondary degenerative osteoarthrosis
--- NOTE | 2017-09-30 12:33 | US ---
HISTORY: Leg pain and swelling. Evaluate for DVT PHYSICIAN(S): Josh Vanegas MD. TECHNIQUE: Duplex sonography and color-flow Doppler with graded compression were used to evaluate the deep venous systems of both lower extremities. The exam is limited by body habitus and edema. The tibial veins are not well seen FINDINGS: The visualized deep venous systems of both lower extremities are sonographically normal and compressible. Normal wave forms and augmentation are seen. There is no sonographic evidence for deep venous thrombosis in the visualized segments of both lower extremities. IMPRESSION: No sonographic evidence for deep venous thrombosis in the visualized segments of both lower extremities.
--- NOTE | 2017-09-30 13:21 | CP.PCM.CON ---
History of Present Illness - History of Present Illness History of Present Illness: 57 year old female with PMH of HTN, dyslipidemia, ESRD on HD, Peptic ulcer disease, chronic pain syndrome, small brain aneurysm came in [place] [facility] [place] of bilateral lower extremity pain for about a day prior to admission. She denies scratching or traumatizing the leg on surfaces, denies walking barefoot on soil, no animal contacts, no fever or chills. She recently had a right hip placement, done last week. She denies headache or dizziness, no chest pain, no SOB, no nausea or vomiting, no cough or colds, no sore throat, no diarrhea, no dysuria. Infectious Diseases consult is requested to further evaluate and manage. Review of Systems - Review of Systems All systems: reviewed and no additional remarkable complaints except (as per HPI ) Past Patient History - Infectious Disease Hx of Infectious Diseases: None - Tetanus Immunizations Tetanus Immunization: Up to Date - Past Medical History & Family History Past Medical History?: Yes - Past Social History Smoking Status: Heavy Smoker > 10 Cigarettes Daily - CARDIAC Hx Cardiac Disorders: Yes Hx Congestive Heart Failure: Yes Hx Hypertension: Yes - PULMONARY Hx Chronic Obstructive Pulmonary Disease (COPD): Yes - NEUROLOGICAL Hx Neurological Disorder: No - HEENT Hx HEENT Problems: Yes Hx Blind: Yes (partial, left eye) - RENAL Hx Renal Failure: Yes (Hemodialysis (T, TH,Mon)-SHUNT LEFT UPPER ARM.) - ENDOCRINE/METABOLIC Hx Endocrine Disorders: Yes (parathyroid) - HEMATOLOGICAL/ONCOLOGICAL Hx Blood Disorders: Yes Hx Anemia: Yes - INTEGUMENTARY Hx Dermatological Problems: Yes (LEFT UPPER ARM SHUNT) Other/Comment: CALCIPHYLAXIS-DRY ROUND RASH ALL OVER HER BODY,ARMS,LEG. BILATERAL LEG EDEMA +3,SKIN TIGHTNESS,DISCOLORED DARK BROWN SKIN.TIGHT. - MUSCULOSKELETAL/RHEUMATOLOGICAL Hx Falls: Yes - GASTROINTESTINAL Hx Gastrointestinal Disorders: Yes (GI BLEED,SBO,APPENDICITIS,INGRAM'S ESOPHAGUS) - GENITOURINARY/GYNECOLOGICAL Hx Genitourinary Disorders: Yes (OLIGURIA) - PSYCHIATRIC Hx Substance Use: No - SURGICAL HISTORY Hx Cholecystectomy: Yes Hx Orthopedic Surgery: Yes (bilateral hips) Other/Comment: left arm fistula , c-sectionx2, tonsilectomy - ANESTHESIA Hx Anesthesia Reactions: No Hx Malignant Hyperthermia: No Meds Allergies/Adverse Reactions: Allergies Allergy/AdvReac Type Severity Reaction Status Date / Time aspirin Allergy Severe ANAPHYLAXIS Verified 09/29/17 23:18 ciprofloxacin Allergy Severe ANAPHYLAXIS Verified 09/29/17 23:18 Nellie And Derivatives Allergy Severe ANAPHYLAXIS Verified 09/29/17 23:18 enalapril Allergy Severe HIVES Verified 09/29/17 23:18 heparin Allergy Severe ANAPHYLAXIS Verified 09/29/17 23:18 latex Allergy Severe ANAPHYLAXIS Verified 09/29/17 23:18 Penicillins Allergy Severe ANAPHYLAXIS Verified 09/29/17 23:18 Sulfa (Sulfonamide Allergy Severe ANAPHYLAXIS Verified 09/29/17 23:18 Antibiotics) levothyroxine sodium Allergy Intermediate RASH Verified 09/29/17 23:18 [From Levoxyl] acetaminophen Allergy Mild RASH Verified 09/29/17 23:18 codeine Allergy Mild RASH Verified 09/29/17 23:18 enoxaparin Allergy Mild RASH Verified 09/29/17 23:18 iodine Allergy Mild RASH Verified 09/29/17 23:18 influenza virus vaccine, Allergy hives Verified 09/29/17 23:18 specific Physical Exam - Constitutional Appears: Chronically Ill - Head Exam Head Exam: NORMAL INSPECTION - ENT Exam ENT Exam: Mucous Membranes Moist - Neck Exam Neck exam: Negative for: Meningismus - Respiratory Exam Respiratory Exam: Decreased Breath Sounds - Cardiovascular Exam Cardiovascular Exam: +S1, +S2 - GI/Abdominal Exam GI & Abdominal Exam: Soft. absent: Tenderness - Extremities Exam Additional comments: chronic skin changes noted on both legs, with some erythema but no increased warmth Results - Vital Signs Recent Vital Signs: Last Vital Signs Temp 98.1 F 09/30/17 04:30 Pulse 94 H 09/30/17 04:30 Resp 18 09/30/17 04:30 BP 132/71 09/30/17 04:30 Pulse Ox 95 09/30/17 02:15 - Labs Result Diagrams: 09/29/17 23:55 09/29/17 23:55 Assessment & Plan - Assessment and Plan (Free Text) Plan: Assessment Swelling of lower extremities probably related to fluid retention in a patient with end stage renal disease/venous stasis with associated chronic pain syndrome R/O skin and skin structure infection of lower extremities, non- purulent R/O DVT probable arthritis of the hips and knees history of atypical pneumonia HTN dysipidemia ESRD on HD Peptic ulcer disease chronic pain syndrome small brain aneurysm Plan will start cefazolin and will follow up blood cx, doppler U/S of legs will monitor clinically
[2017-09-30 13:33] LABS: IRON 53 ug/dL (45-180)
[2017-09-30] MEDS: Levalbuterol 1.25 MG/3 ML Inhal Soln UD IH SCH (13:45)
[2017-09-30 13:54] LABS: % IRON SATURATION 25 % (20-55); TOTAL IRON BINDING CAPACITY 211 ug/dL (265-497)
[2017-09-30 14:41] LABS: BASO # 0.03 K/mm3 (0.0-2.0); BASO % 0.4 % (0.0-3.0); EOS # 0.4 (0.0-0.7); EOS % 5.3 % (1.5-5.0); GRAN # 5.04 (1.4-6.5); GRAN % 71.9 % (50.0-68.0); HEMOGLOBIN 7.7 g/dL (12.0-16.0); LYMPH # 0.9 (1.2-3.4); LYMPH % 12.7 % (22.0-35.0); MEAN CELL VOLUME 84.1 fl (80.0-105.0); MEAN CORPUSCULAR HGB CONC 30.9 g/dl (31.0-37.0); MEAN PLATELET VOLUME 9.8 fl (7.0-11.0); MONO # 0.7 (0.1-0.6); MONO % 9.7 % (1.0-6.0); RBC 2.96 10^6/uL (3.5-6.1); RED CELL DISTRIBUTION WIDTH 18.5 % (11.5-14.5)
[2017-09-30 15:24] LABS: ALB/GLOB RATIO 0.9 (1.1-1.8); ALBUMIN 2.5 g/dL (3.0-4.8); CALCIUM 9.3 mg/dL (8.4-10.5); MAGNESIUM 2.2 mg/dL (1.7-2.2)
[2017-09-30] MEDS: Metoprolol Succinate 25 mg XL Tab PO SCH (18:09)
--- NOTE | 2017-09-30 19:03 | CARD ---
APPROVED REPORT EKG Measurement Heart [id number] CO [id number] <Conclusion> Normal sinus rhythm Left ventricular hypertrophy with repolarization abnormality Prolonged QT Abnormal ECG
[2017-09-30] MEDS ORDERED: Darbepoetin Alfa 100 mcg/ml Inj SC ONE (21:19)
--- NOTE | 2017-09-30 23:21 | HP ---
DATE OF EXAM: HISTORY OF PRESENT ILLNESS: The patient is a 57-year-old, seen and examined. The patient was in [facility] for rehab. She was found to have left lower leg redness, complained of having cough and congestion. Denies any fever or chills. The patient had right hip reconstruction surgery done last week by Dr. Dominguez in [facility] and she was sent to [facility] for rehab. PAST MEDICAL HISTORY: Significant for: 1. End-stage renal disease. 2. Gastritis. 3. History of cholecystectomy. 4. History of AVM. She had severe GI bleed requiring multiple blood transfusions last visit. ALLERGIES: THE PATIENT HAS MULTIPLE ALLERGIES INCLUDING ASPIRIN, CIPRO, ENALAPRIL, HEPARIN, LATEX, PENICILLIN, SULFA, LEVOTHYROXINE, ACETAMINOPHEN, CODEINE, LOVENOX, IODINE. MEDICATIONS AT HOME: She is on: 1. Renvela. 2. Crestor 20 mg daily. 3. Metoprolol 25 mg daily. 4. Xyzal 5 mg daily. 5. Nexium 40 mg daily. 6. Sensipar. REVIEW OF SYSTEMS: Significant for cough and left leg swelling and redness and difficulty walking because of recent surgery. PHYSICAL EXAMINATION: GENERAL: She is awake and alert, complaining of cough. VITAL SIGNS: She is afebrile, pulse 92, respirations 18, blood pressure 128/70. LUNGS: Bilateral few respiratory rhonchi. HEART: S1 and S2 audible. ABDOMEN: Soft and nontender. No rebound. No guarding. NEUROLOGIC: The patient is awake and alert, able to communicate. LABORATORY DATA: WBC 6.2, hemoglobin 8.5, hematocrit 27.8, and platelets 140. PT 13.8, INR of 1.21. Chemistry, sodium 137, potassium 3.5, chloride 95, CO2 of 31, BUN 28, creatinine 4.4, blood sugar of 109. ASSESSMENT: 1. Left leg cellulitis. 2. Recent right hip constriction surgery last week. 3. Hypertension. 4. Hyperlipidemia. 5. Gastritis. 6. History of gastrointestinal bleed. 7. Multiple allergies. The patient needs anticoagulation, but she is allergic to Lovenox and heparin. PLAN: We will start the patient on nebulizer treatment and give analgesics, has been started on IV antibiotics, awaiting Dr. Walsh's input. I will ask Dr. Dominguez to help me to give anticoagulation since she is high risk for PE and GI bleed. Dr. Rose will be consulted also to monitor her dialysis. Shawn Gomez MD
--- NOTE | 2017-10-01 00:23 | CON ---
DATE: 09/30/2017 REASON FOR CONSULTATION: Anemia, anticoagulation management. HISTORY OF PRESENT ILLNESS: Ms. Kraus is a 57-year-old female recently underwent right hip replacement. She has end-stage renal disease, on hemodialysis. She was admitted to the hospital with bilateral lower extremity swelling and redness. Doppler lower extremity is negative for DVT. She is confined to the bed, not ambulating. Hemoglobin declined to 7.7. Iron studies showed normal iron. She is sedated, arousable. Denies any pain now. Shortness of breath mild. History of GI bleed. PAST MEDICAL HISTORY: Congestive cardiac failure, hypertension, COPD, partial blindness, end-stage renal disease on hemodialysis, chronic anemia. PAST SURGICAL HISTORY: Left arm shunt. PERSONAL HISTORY: Ex-smoker. ALLERGIES: MULTIPLE DRUG ALLERGIES INCLUDING ASPIRIN, CIPROFLOXACIN, CITRUS, ENALAPRIL, HEPARIN, LOVENOX, PENICILLIN, SULFA, IODINE, FLU VACCINE, TYLENOL, CODEINE, SYNTHROID. FAMILY HISTORY: Noncontributory. REVIEW OF SYSTEMS: As per HPI. Rest of 12-point review of systems reviewed and negative. PHYSICAL EXAMINATION: GENERAL: Comfortable in bed, in no acute distress. VITAL SIGNS: Temperature 98.1, heart rate is 86 per minute, respiratory rate 18 per minute, blood pressure 140/73, and pulse ox is 99% on room air. HEENT: Pallor positive. NECK: No lymphadenopathy. CHEST: Air entry present and equal bilateral. No added sounds. CARDIOVASCULAR: S1 and S2 normal. No murmur. No gallop. ABDOMEN: Soft, nontender. No hepatosplenomegaly. EXTREMITIES: Bilateral lower extremity 1+ edema, edema present both legs. CENTRAL NERVOUS SYSTEM: Sedated, arousable. No focal sensory or motor deficits. SKIN: No petechiae, no rash. LABORATORY DATA: White count 6.2, hemoglobin 7.7, hematocrit 27, platelet 140. Sodium 137, potassium 3.5, 4.4, glucose 109. Chest x-ray, no infiltrates. ASSESSMENT AND PLAN: 1. End-stage renal disease, on hemodialysis. 2. Chronic anemia. 3. Recent right hip replacement. 4. Congestive heart failure. 5. Chronic obstructive pulmonary disease. PLAN: 1. Iron study showed normal iron. Anemia is related to end-stage renal disease. I will give one dose of Aranesp 100 subcu stat. We will monitor the hemoglobin and hematocrit. She can continue with hemodialysis. 2. Anticoagulation. SHE HAS MULTIPLE ALLERGIES INCLUDING HEPARIN AND LOVENOX. She will need short course of anticoagulation secondary to hip replacement. BECAUSE OF MULTIPLE ALLERGIES INCLUDING ANAPHYLAXIS WITH CERTAIN MEDICATION, HEPARIN IS LISTED CAUSING ANAPHYLAXIS ALSO. I will be very cautious choosing the anticoagulation. I will discuss with Dr. Gomez. Coumadin , pradaxa, option. Doppler bilateral lower extremity negative. 3. End-stage renal disease, Dr. Mathews' note reviewed. 4. Bilateral lower extremity cellulitis. ID following. She is on Zyvox. Thank you Dr. Gomez for allowing us to participate in Ms. Kraus's care. Chelsy Dominguez MD [facility]
[2017-10-01] MEDS: Levalbuterol 1.25 MG/3 ML Inhal Soln UD IH SCH ×6 (01:53→20:16)
[2017-10-01 09:11] LABS: PH,URINE >=9.0 (4.7-8.0); URINE BILIRUBIN NEGATIVE (NEGATIVE); URINE BLOOD MODERATE (NEGATIVE); URINE GLUCOSE (UA) 100 mg/dL (NEGATIVE); URINE LEUKOCYTE ESTERASE NEGATIVE Leu/uL (NEGATIVE); URINE NITRATE NEGATIVE (NEGATIVE); URINE PROTEIN 100 mg/dL (<30 mg/dL); URINE UROBILINOGEN 0.2 E.U./dL (<1 E.U./dL)
[2017-10-01 09:12] LABS: URINE APPEARANCE CLEAR (CLEAR); URINE COLOR YELLOW (YELLOW)
[2017-10-01] MEDS: Metoprolol Succinate 25 mg XL Tab PO SCH (09:35)
[2017-10-01 09:36] LABS: URINE RBC 0 - 2 /hpf (0-2); URINE WBC 0 - 2 /hpf (0-6)
[2017-10-01 09:37] LABS: URINE BACTERIA FEW (NEG)
--- NOTE | 2017-10-01 14:01 | CP.PCM.PN ---
Subjective - Date & Time of Evaluation Date of Evaluation: 10/01/17 Time of Evaluation: 12:55 - Subjective Subjective: No fevers, not in distress, afebrile, still with pain in the legs. Objective - Vital Signs/Intake and Output Vital Signs (last 24 hours): Temp Pulse Resp BP Pulse Ox 98.2 F 82 19 137/64 93 L 10/01/17 08:01 10/01/17 09:35 10/01/17 08:01 10/01/17 09:35 10/01/17 08:01 Intake and Output: 10/01/17 10/01/17 06:59 18:59 Intake Total 600 Output Total 150 Balance 450 - Medications Medications: Current Medications Atorvastatin Calcium (Lipitor) 80 mg PO DIN [facility] Last Admin: 09/30/17 18:09 Dose: 80 mg Benzonatate (Tessalon Perles) 100 mg PO TID [facility] Last Admin: 10/01/17 09:33 Dose: 100 mg Cinacalcet (Sensipar) 30 mg PO DAILY [facility] Last Admin: 10/01/17 09:34 Dose: 30 mg Hydromorphone HCl (Dilaudid) 2 mg PO Q4H PRN PRN Reason: Pain, moderate (4-7) Last Admin: 10/01/17 09:34 Dose: 2 mg Levalbuterol HCl (Xopenex) 1.25 mg IH [id number] [facility] Last Admin: 10/01/17 08:38 Dose: 1.25 mg Linezolid (Zyvox) 600 mg PO BID [facility] PRN Reason: Protocol Last Admin: 10/01/17 09:35 Dose: 600 mg Loratadine (Claritin) 10 mg PO DAILY [facility] Last Admin: 10/01/17 09:35 Dose: 10 mg Metoprolol Succinate (Toprol Xl) 25 mg PO DAILY [facility] Last Admin: 10/01/17 09:35 Dose: 25 mg Sevelamer HCl (Renagel) 800 mg PO DAILY [facility] Last Admin: 10/01/17 09:35 Dose: 800 mg - Labs Labs: 09/30/17 13:45 09/30/17 13:45 PT 13.8 SECONDS (9.4-12.5) H 09/29/17 23:55 INR 1.21 (0.93-1.08) H 09/29/17 23:55 APTT 30.5 Seconds (25.1-36.5) 09/29/17 23:55 - Constitutional Appears: Chronically Ill - Head Exam Head Exam: NORMAL INSPECTION - ENT Exam ENT Exam: Mucous Membranes Moist - Neck Exam Neck Exam: absent: Meningismus - Respiratory Exam Respiratory Exam: Decreased Breath Sounds - Cardiovascular Exam Cardiovascular Exam: +S1, +S2 - GI/Abdominal Exam GI & Abdominal Exam: Soft. absent: Tenderness - Extremities Exam Additional comments: both legs with chronic skin changes Assessment and Plan - Assessment and Plan (Free Text) Plan: Assessment Swelling of lower extremities probably related to fluid retention in a patient with end stage renal disease/venous stasis with associated chronic pain syndrome less likely skin and skin structure infection of lower extremities, non -purulent with no evidence of DVT probable arthritis of the hips and knees history of atypical pneumonia HTN dysipidemia ESRD on HD Peptic ulcer disease chronic pain syndrome small brain aneurysm Plan on Zyvox day 2 - complete short course of antibiotics (5 days)
--- NOTE | 2017-10-01 18:13 | PN ---
DATE: SUBJECTIVE: Patient is currently seen on 5R. She is comfortable. She is lying in bed. She continues to have some mild cellulitis of her left lower extremity. She is complaining of some mild discomfort in her right hip status post right total hip replacement surgery at [facility] 1 week ago. MEDICATIONS: List reviewed. Patient is on Claritin, Dilaudid, Lipitor, Pradaxa, Renagel, Sensipar, Tessalon Perles, Toprol, Xopenex, and Zyvox. OBJECTIVE: INTAKE AND OUTPUT: Intake 600, output 150 plus dialysis. VITAL SIGNS: Blood pressure 137/64, temperature 98.2, respiratory rate is 19 with a pulse of 82. HEENT: Shows her to be normocephalic, atraumatic. Conjunctivae are pale. Sclera are mildly icteric. NECK: Supple. No neck vein distention. CHEST: Clear to auscultation and percussion with occasional scattered rhonchi. No wheezing or rales. CARDIOVASCULAR: Normal S1, S2. Soft systolic murmur, left lower sternal border. No S3. No S4. No rub. ABDOMEN: Soft. Bowel sounds normal. No rebound or guarding or masses. EXTREMITIES: Left upper extremity AV fistula. Positive thrill. Positive bruit. Positive pseudoaneurysm. Right hip surgical site is minimally edematous with no significant erythema, warmth, or tenderness. Left lower extremity shows some mild redness with slight increase in warmth, but not tender to touch over the distal part of her left lower extremity. LABORATORY DATA AND IMAGING STUDIES: CBC: Last white blood cell count 7.0, hemoglobin is 7.7. Patient did receive 1 unit of packed red blood cells with dialysis yesterday. Platelet count is 135,000. Chemistries: Normal electrolytes. BUN 31 with a creatinine of 5.0. Bilirubin 3.0, AST 52, albumin is 2.5. Microbiology: All blood cultures are negative at 24 hours. ASSESSMENT: 1. Mild cellulitis of her left lower extremity. Patient continues on Zyvox therapy. Patient is being followed by Infectious Disease. She does have multiple sensitivities to many antibiotics. 2. Status post right hip surgery at [facility] 1 week ago. Wound does not appear to be infected. There is some mild edema and some very minimal erythema. 3. History of end-stage renal disease. Patient will continue three times a week dialysis. Next dialysis is scheduled for 10/03/2017. 3. History of chronic obstructive pulmonary disease. Past history of cigarette smoking. 4. History of hypertension, currently stable. Patient continues on beta-edith therapy. 5. History of pulmonary hypertension, stable. This is likely secondary to chronic obstructive pulmonary disease. 6. History of gastroesophageal reflux disease with past history of abdominal pain. Presently, no abdominal pain and patient is requiring no medication for this. 7. History of secondary hyperparathyroidism. Patient will continue Sensipar, renal diet, and binder therapy. Her last phosphorus level was excellent at 3.7 with a calcium of 9.3. 8. History of anemia in part secondary to chronic kidney disease and perhaps bone marrow suppression from mild cellulitis of her left lower extremity. Patient will receive the maximum dose of Aranesp. She did receive 1 unit of packed red blood cells yesterday on dialysis. Her iron saturations were excellent at 25%. PLAN: 1. Antibiotic therapy as per Infectious Disease. Patient is on p.o. Zyvox. 2. Lower extremity ultrasound done on 09/29, reviewed. It shows no evidence for DVT. 3. Continue wound care followup for her total right hip replacement surgery. 4. Continue routine maintenance dialysis. 5. Continue binder therapy, Sensipar, and vitamin D on dialysis as per protocol. Deon Mathews MD
--- NOTE | 2017-10-01 18:43 | CP.PCM.PN ---
Subjective - Date & Time of Evaluation Date of Evaluation: 10/01/17 Time of Evaluation: 12:00 - Subjective Subjective: DATE: 10/01/2017 SUBJECTIVE : Ms. Kraus is a 57-year-old female recently underwent right hip replacement. She has end-stage renal disease, on hemodialysis. She was admitted to the hospital with bilateral lower extremity swelling and redness. Doppler lower extremity is negative for DVT. She is confined to the bed, not ambulating. Hemoglobin declined to 7.7. Iron studies showed normal iron. She is sedated, arousable. Denies any pain now. Shortness of breath mild. History of GI bleed. complaining of pain both legs. poor oral intake. sedated most of the time from pain meds. PAST MEDICAL HISTORY: Congestive cardiac failure, hypertension, COPD, partial blindness, end-stage renal disease on hemodialysis, chronic anemia. PAST SURGICAL HISTORY: Left arm shunt. PERSONAL HISTORY: Ex-smoker. ALLERGIES: MULTIPLE DRUG ALLERGIES INCLUDING ASPIRIN, CIPROFLOXACIN, CITRUS, ENALAPRIL, HEPARIN, LOVENOX, PENICILLIN, SULFA, IODINE, FLU VACCINE, TYLENOL, CODEINE, SYNTHROID. FAMILY HISTORY: Noncontributory. REVIEW OF SYSTEMS: As per HPI. Rest of 12-point review of systems reviewed and negative. PHYSICAL EXAMINATION: GENERAL: Comfortable in bed, in no acute distress. VITAL SIGNS: reviewed. HEENT: Pallor positive. NECK: No lymphadenopathy. CHEST: Air entry present and equal bilateral. No added sounds. CARDIOVASCULAR: S1 and S2 normal. No murmur. No gallop. ABDOMEN: Soft, nontender. No hepatosplenomegaly. EXTREMITIES: Bilateral lower extremity 1+ edema, edema present both legs. CENTRAL NERVOUS SYSTEM: Sedated, arousable. No focal sensory or motor deficits. SKIN: No petechiae, no rash. LABORATORY DATA: reviewed ASSESSMENT AND PLAN: 1. End-stage renal disease, on hemodialysis. 2. Chronic anemia.; s/p one dose of Aranesp yesterday. CBC am. 3. Recent right hip replacement. : Pain both legs. Bed side PT. encouraged ambulation. On zyvox , ID following. 4. Congestive heart failure. : stable. 5. Chronic obstructive pulmonary disease.- no issues 6. DVT : prophylaxis ; pradaxa 75 mg BID started today. To continue until ambulating . Thank you Dr. Gomez for allowing us to participate in Ms. Kraus's care. Chelsy Dominguez MD Objective - Vital Signs/Intake and Output Vital Signs (last 24 hours): Temp Pulse Resp BP Pulse Ox 98.2 F 81 18 139/70 98 10/01/17 16:00 10/01/17 16:00 10/01/17 16:00 10/01/17 16:00 10/01/17 16:00 Intake and Output: 10/01/17 10/01/17 06:59 18:59 Intake Total 1140 Output Total 152 Balance 988 - Medications Medications: Current Medications Atorvastatin Calcium (Lipitor) 80 mg PO DIN [facility] Last Admin: 10/01/17 17:25 Dose: 80 mg Benzonatate (Tessalon Perles) 100 mg PO TID [facility] Last Admin: 10/01/17 17:24 Dose: 100 mg Cinacalcet (Sensipar) 30 mg PO DAILY [facility] Last Admin: 10/01/17 09:34 Dose: 30 mg Dabigatran (Pradaxa) 75 mg PO Q12 LEX PRN Reason: Protocol Hydromorphone HCl (Dilaudid) 2 mg PO Q4H PRN PRN Reason: Pain, moderate (4-7) Last Admin: 10/01/17 17:24 Dose: 2 mg Levalbuterol HCl (Xopenex) 1.25 mg IH [id number] [facility] Last Admin: 10/01/17 18:15 Dose: 1.25 mg Linezolid (Zyvox) 600 mg PO BID [facility] PRN Reason: Protocol Last Admin: 10/01/17 17:24 Dose: 600 mg Loratadine (Claritin) 10 mg PO DAILY [facility] Last Admin: 10/01/17 09:35 Dose: 10 mg Metoprolol Succinate (Toprol Xl) 25 mg PO DAILY [facility] Last Admin: 10/01/17 09:35 Dose: 25 mg Sevelamer HCl (Renagel) 800 mg PO DAILY [facility] Last Admin: 10/01/17 09:35 Dose: 800 mg - Labs Labs: 09/30/17 13:45 09/30/17 13:45 PT 13.8 SECONDS (9.4-12.5) H 09/29/17 23:55 INR 1.21 (0.93-1.08) H 09/29/17 23:55 APTT 30.5 Seconds (25.1-36.5) 09/29/17 23:55
[2017-10-02] MEDS: Levalbuterol 1.25 MG/3 ML Inhal Soln UD IH SCH ×4 (01:13→20:16)
[2017-10-02] MEDS: Metoprolol Succinate 25 mg XL Tab PO SCH (09:55)
--- NOTE | 2017-10-02 14:28 | PN ---
DATE: SUBJECTIVE: The patient is 57 years old, seen and examined, complained of shortness of breath, complained of scanty cough. Left leg swelling has improved complained of generalized weakness. PHYSICAL EXAMINATION VITAL SIGNS: She is afebrile. Pulse 72, respirations 20, blood pressure 124/72. LUNGS: Bilateral fair airflow. No rhonchi or crackle. HEART: S1 and S2 audible. ABDOMEN: Soft and nontender. No rebound. No guarding. NEUROLOGIC: The patient is awake and alert, able to communicate. EXTREMITIES: Left leg erythema has significantly improved. Bilateral leg swelling has improved. LABORATORY DATA: WBC 7.0, hemoglobin 7.7, hematocrit 24.9, platelets of 135. Chemistry: Sodium of 137, potassium 3.9, chloride 96, CO2 of 32, BUN 31, creatinine 5.0, blood sugar of 83. Her alkaline phosphatase is 814. AST and ALT are within normal range. ASSESSMENT AND PLAN: 1. Left leg cellulitis. 2. Hypertension. 3. End-stage renal disease, on hemodialysis. 4. Status post right hip replacement. 5. History of gastrointestinal bleed secondary to arteriovenous malformations. So, currently, the patient is on Dilaudid as needed. She is on Lipitor. She is on Renagel and Sensipar. She is on nebulizer treatment, has been switched to p.o. Zyvox 600 twice a day. We will transfuse her 2 packed RBCs during dialysis and follow up her H and H in the a.m. Encourage physical therapy. We will follow up the patient. Shawn Gomez MD
--- NOTE | 2017-10-02 19:03 | PN ---
DATE: 10/02/2017 SUBJECTIVE: The patient is seen lying in bed. She is awake. She is alert. She is somewhat groggy. She denies any chest pain, but she complains of pain in her left lower leg and also in both hips. She denies any nausea or vomiting. PHYSICAL EXAMINATION: GENERAL: Thinly built elderly lady, lying in bed. VITAL SIGNS: Blood pressure 124/72, heart rate 72, respiratory rate 18, temperature 98.4. HEENT: Normocephalic, atraumatic. NECK: Supple, no JVD. LUNGS: Bilateral equal entry, bilateral equal expansion, no rales. CARDIAC: S1 and S2, regular rate and rhythm, no murmur, no rub. ABDOMEN: Soft, nondistended, nontender, bowel sounds present. EXTREMITIES: Positive erythema of the left lower leg, no swelling. INTAKE AND OUTPUT: Not charted. LABORATORY DATA: WBC 7, hemoglobin 7.7, hematocrit 25, platelets 135. Sodium 137, potassium 3.9, chloride 96, CO2 32, BUN 31, creatinine 5.0, glucose 83, calcium 9.3, phosphorus 3.7 magnesium 2.2, saturation 25%, iron 53, ferritin 1440, total bili 3.0, AST 52, ALT 22. Urinalysis yellow clear, pH greater than 9, specific gravity 1.020, protein 100, glucose 100, blood moderate. Blood cultures no growth. CURRENT MEDICATIONS: Claritin, Dilaudid, Lipitor, Pradaxa, Renagel, Sensipar, Tessalon, Toprol XL, Xopenex, Zyvox. ASSESSMENT: 1. Severe anemia, the patient already received 1 unit of blood on 09/30/2017, hemoglobin is still 7.7. 2. Recent right hip replacement. 3. Left lower extremity cellulitis. 4. History of hypertension. 5. Elevated liver function tests. 6. Chronic thrombocytopenia. 7. Endstage renal disease. PLAN: 1. Dialysis today, transfuse 2 units of blood. 2. Monitor H and H closely. 3. Reduce dose of pain medication to 1 mg q. 4 of Dilaudid. Mansi Rose MD
[2017-10-03] MEDS: Levalbuterol 1.25 MG/3 ML Inhal Soln UD IH SCH ×3 (03:17→13:34)
[2017-10-03 06:48] LABS: BASO # 0.02 K/mm3 (0.0-2.0); BASO % 0.3 % (0.0-3.0); EOS # 0.2 (0.0-0.7); EOS % 2.8 % (1.5-5.0); GRAN # 5.24 (1.4-6.5); GRAN % 74.5 % (50.0-68.0); HEMOGLOBIN 8.6 g/dL (12.0-16.0); LYMPH # 0.9 (1.2-3.4); LYMPH % 13.4 % (22.0-35.0); MEAN CELL VOLUME 85.2 fl (80.0-105.0); MEAN CORPUSCULAR HEMOGLOBIN 26.1 pg (25.0-35.0); MEAN CORPUSCULAR HGB CONC 30.6 g/dl (31.0-37.0); MEAN PLATELET VOLUME 9.9 fl (7.0-11.0); MONO # 0.6 (0.1-0.6); RBC 3.3 10^6/uL (3.5-6.1); RED CELL DISTRIBUTION WIDTH 18.3 % (11.5-14.5)
[2017-10-03 07:08] LABS: ALB/GLOB RATIO 0.9 (1.1-1.8); ALBUMIN 2.8 g/dL (3.0-4.8); CALCIUM 8.2 mg/dL (8.4-10.5)
[2017-10-03 08:48] VITALS: TEMP 98.8
[2017-10-03 09:02] VITALS: RESP 20
[2017-10-03 09:13] VITALS: O2SAT 95
[2017-10-03] MEDS: Metoprolol Succinate 25 mg XL Tab PO SCH (10:45)
[2017-10-03 10:56] VITALS: BP 144/65; PULSE 66
--- NOTE | 2017-10-03 14:50 | PN ---
DATE: SUBJECTIVE: The patient is currently seen just having completed dialysis. 1700 mL of fluid were removed. The patient did receive 1 unit of packed red blood cells on dialysis. She continues on oral Zyvox therapy for her left lower extremity cellulitis. She is not complaining of any pain in her right hip. She is having loose stools and stools for C. diff are pending. The patient denies any GI bleeding. MEDICATIONS: List reviewed. The patient is currently on Claritin, Dilaudid, Lipitor, Pradaxa, Renagel, Sensipar, Tessalon Perles, Toprol, Xopenex, and oral Zyvox. OBJECTIVE INTAKE/OUTPUT: Intake is 1180, output is 0. VITAL SIGNS: Blood pressure is 144/65, temperature is 98.8, respiratory rate is 20 with a pulse of 66. Oxygen saturation is 95%. HEENT: Shows her to be normocephalic, atraumatic. Conjunctivae remain pale. Sclerae are mildly icteric. NECK: Supple. No neck vein distention. CHEST: Clear to auscultation and percussion. No rales, no rhonchi or wheezing. CARDIOVASCULAR: Shows a regular rate and rhythm. Soft systolic murmur at the left lower sternal border. No ST, no S4, no rub. ABDOMEN: Soft. Bowel sounds normal. No rebound, guarding or masses. EXTREMITIES: Left upper extremity AV fistula. Positive pseudoaneurysm. Right hip surgical site is nonedematous, minimal erythema. No increased warmth or tenderness. Left lower extremity shows an area of redness in the medial aspect of her left lower leg with increased warmth. Nontender to touch. LABORATORY DATA AND IMAGING: CBC: Predialysis today, white blood cell count 7.0, hemoglobin 8.6 with a platelet count of 133,000. The patient did receive 1 unit of packed red blood cells. Chemistry show normal electrolytes. BUN 29 with a creatinine of 5.4. Calcium is 8.2, corrects to normal for an albumin of 2.8. Phosphorus 4.1, magnesium 2.0. Iron saturations were 25%. Microbiology: Blood cultures are negative at 72 hours. ASSESSMENT: 1. Mild cellulitis of her left lower extremity. The patient continues on oral Zyvox therapy. She has been followed by Infectious Disease. 2. Status post right hip surgery at [facility] approximately 10 days ago. The wound does not appear to be infected. 3. History of end-stage renal disease. The patient will continue three times a week dialysis. 4. History of chronic obstructive pulmonary disease with past history of cigarette smoking, stable. 5. History of hypertension. Blood pressure controlled on present beta-edith therapy. 6. History of pulmonary hypertension, stable. This is secondary to chronic obstructive pulmonary disease. 7. History of gastroesophageal reflux disease with past history of abdominal pain. Presently, no abdominal pain and the patient is currently off proton pump inhibition therapy. 8. History of secondary hyperparathyroidism. The patient will continue vitamin D, binder therapy and Sensipar. Calcium and phosphorus levels have remained acceptable. 9. History of anemia. She is status post transfusion of 1 unit of packed red blood cells on dialysis. Try to keep her hemoglobin in the 9-10 range. No evidence of presence for gastrointestinal bleeding. Perhaps bone marrow suppression secondary to cellulitis of her lower extremity coupled with the recent hip surgery. Iron saturations were acceptable. PLAN 1. Complete course of oral Zyvox therapy. Duration as per Infectious Disease. 2. Continue wound care for her right total hip replacement. 3. Continue routine maintenance dialysis. 4. Continue oral medicines for secondary hyperparathyroidism. Deon Mathews MD
--- NOTE | 2017-10-03 16:44 | CP.PCM.PN ---
Subjective - Date & Time of Evaluation Date of Evaluation: 10/02/17 Time of Evaluation: 11:20 - Subjective Subjective: Comfortable, no fevers, not in distress. Objective - Vital Signs/Intake and Output Vital Signs (last 24 hours): Temp Pulse Resp BP Pulse Ox 98.4 F 72 20 124/72 97 10/02/17 08:02 10/02/17 09:55 10/02/17 08:02 10/02/17 09:55 10/02/17 08:02 Intake and Output: 10/02/17 10/02/17 06:59 18:59 Intake Total 240 Balance 240 - Medications Medications: Current Medications Atorvastatin Calcium (Lipitor) 80 mg PO DIN [facility] Last Admin: 10/01/17 17:25 Dose: 80 mg Benzonatate (Tessalon Perles) 100 mg PO TID [facility] Last Admin: 10/02/17 09:55 Dose: 100 mg Cinacalcet (Sensipar) 30 mg PO DAILY [facility] Last Admin: 10/02/17 09:55 Dose: 30 mg Dabigatran (Pradaxa) 75 mg PO Q12 LEX PRN Reason: Protocol Last Admin: 10/02/17 09:52 Dose: 75 mg Hydromorphone HCl (Dilaudid) 2 mg PO Q4H PRN PRN Reason: Pain, moderate (4-7) Last Admin: 10/02/17 09:53 Dose: 2 mg Levalbuterol HCl (Xopenex) 1.25 mg IH [id number] [facility] Last Admin: 10/02/17 07:16 Dose: 1.25 mg Linezolid (Zyvox) 600 mg PO BID [facility] PRN Reason: Protocol Last Admin: 10/02/17 09:55 Dose: 600 mg Loratadine (Claritin) 10 mg PO DAILY [facility] Last Admin: 10/02/17 09:55 Dose: 10 mg Metoprolol Succinate (Toprol Xl) 25 mg PO DAILY [facility] Last Admin: 10/02/17 09:55 Dose: 25 mg Sevelamer HCl (Renagel) 800 mg PO DAILY [facility] Last Admin: 10/02/17 09:55 Dose: 800 mg - Labs Labs: 09/30/17 13:45 09/30/17 13:45 PT 13.8 SECONDS (9.4-12.5) H 09/29/17 23:55 INR 1.21 (0.93-1.08) H 09/29/17 23:55 APTT 30.5 Seconds (25.1-36.5) 09/29/17 23:55 - Constitutional Appears: Chronically Ill - Head Exam Head Exam: NORMAL INSPECTION - Neck Exam Neck Exam: absent: Meningismus - Respiratory Exam Respiratory Exam: Decreased Breath Sounds - Cardiovascular Exam Cardiovascular Exam: +S1, +S2 - GI/Abdominal Exam GI & Abdominal Exam: Soft. absent: Tenderness - Extremities Exam Additional comments: decreased swelling of both extremities Assessment and Plan - Assessment and Plan (Free Text) Plan: Assessment Swelling of lower extremities probably related to fluid retention in a patient with end stage renal disease/venous stasis with associated chronic pain syndrome less likely skin and skin structure infection of lower extremities, non -purulent with no evidence of DVT probable arthritis of the hips and knees history of atypical pneumonia HTN dysipidemia ESRD on HD Peptic ulcer disease chronic pain syndrome small brain aneurysm Plan on Zyvox day 4 - complete short course of antibiotics (5 days)
--- NOTE | 2017-10-04 18:14 | DS ---
HISTORY OF PRESENT ILLNESS: Patient is 57 years old. Patient was admitted because of the left lower leg swelling and redness. Patient recently had right hip reconstruction surgery done and was in [facility], signed against medical advice, has been home, has not been ambulating much, was given IV vancomycin first and then switched to p.o. Zyvox because PATIENT IS ALLERGIC TO SO MANY OTHER MEDICATIONS. PHYSICAL EXAMINATION: GENERAL: Patient is awake, alert, oriented, communicative. VITAL SIGNS: She is afebrile, pulse 85, respirations 20, blood pressure 145/65. LUNGS: Bilateral fair airflow. No rhonchi or crackle. HEART: S1, S2 audible. ABDOMEN: Soft, nontender. No rebound. No guarding. NEUROLOGIC: She is awake and alert. Able to communicate. LABORATORY EXAMINATION: WBC 7.0, hemoglobin 8.6, hematocrit 28.1, platelet 133. Chemistry: Sodium 135, potassium 4.3, chloride 96, CO2 of 30, BUN 29, creatinine 5.4, blood sugar of 92. ASSESSMENT: 1. Recent right hip reconstruction surgery. 2. Left leg cellulitis. 3. End-stage renal disease, on hemodialysis. 4. Anemia, status post one blood transfusion. 5. Diarrhea, Clostridium difficile has been ruled out. PLAN: Patient is being transferred to [place]. She will be given Zyvox for 3 more days p.o. and instruction was also given to continue Pradaxa 150 twice a day for one more week until she becomes more ambulatory because she is allergic to so many medications and she does have a history of arteriovenous malformations, so it might not be safe to keep her on anticoagulant for too long in case she started bleeding, but on the other hand, she is at high risk for DVT also. Shawn Gomez MD
== END 2017-10-03 18:37 | DRG 602 ==
LOC: ED 22:59 → ERH 09-30 01:50 → 5RNO 09-30 03:58
PROVIDERS: ADMIT Internal Medicine; ATTEND Internal Medicine
PROC: 5A1D70Z Performance of Urinary Filtration, Intermittent, Less than 6 Hours Per Day (ICD-10-PCS; principal; 2017-09-30)
PROC: 30233N1 Transfusion of Nonautologous Red Blood Cells into Peripheral Vein, Percutaneous Approach (ICD-10-PCS; 2017-09-30)
PROC: 5A1D70Z Performance of Urinary Filtration, Intermittent, Less than 6 Hours Per Day (ICD-10-PCS; 2017-10-03)
DX: L03.116 Cellulitis of left lower limb (principal); N18.6 End stage renal disease; I13.2 Hypertensive heart and chronic kidney disease with heart failure and with stage 5 chronic kidney disease, or end stage renal disease; N25.81 Secondary hyperparathyroidism of renal origin; I67.1 Cerebral aneurysm, nonruptured; I27.20 Pulmonary hypertension, unspecified; D69.6 Thrombocytopenia, unspecified; K29.70 Gastritis, unspecified, without bleeding; K21.9 Gastro-esophageal reflux disease without esophagitis; J44.9 Chronic obstructive pulmonary disease, unspecified; D63.1 Anemia in chronic kidney disease; G89.4 Chronic pain syndrome; Z96.641 Presence of right artificial hip joint; E78.5 Hyperlipidemia, unspecified; K27.9 Peptic ulcer, site unspecified, unspecified as acute or chronic, without hemorrhage or perforation; I50.9 Heart failure, unspecified; I87.8 Other specified disorders of veins; H54.62 Unqualified visual loss, left eye, normal vision right eye; K22.70 Barrett's esophagus without dysplasia; M16.10 Unilateral primary osteoarthritis, unspecified hip; M17.9 Osteoarthritis of knee, unspecified; Z87.01 Personal history of pneumonia (recurrent); Z99.2 Dependence on renal dialysis; Z88.6 Allergy status to analgesic agent; Z88.9 Allergy status to unspecified drugs, medicaments and biological substances; Z88.2 Allergy status to sulfonamides; Z87.891 Personal history of nicotine dependence; Z88.0 Allergy status to penicillin; Z91.040 Latex allergy status; Z79.899 Other long term (current) drug therapy

== ENCOUNTER 2017-10-10 09:29 | Inpatient (IN) | payer MEDICARE, BC ==
--- NOTE | 2017-10-10 10:04 | ED PDOC ---
Arrival/HPI - General Chief Complaint: Chest Pain Time Seen by Provider: 10/10/17 09:43 Historian: Patient - History of Present Illness Narrative History of Present Illness (Text): 10/10/17 10:00 57 year old female, whose past medical history includes hypertension, CHF, COPD , and anemia, who [facility] complaining of mid-sternal chest pain since this morning. Patient also reports having nausea and vomiting last night associated with upper abdominal pain which was noted in the emergency department. She notes having dark stool and blood in vomit and mouth. No other complaints were made. Last [place] was done 4 days ago and [place] [facility] [place] denies any trauma. PMD: Dr. Gomez Time/Duration: 24 hours Symptom Onset: Gradual Symptom Course: Worsening Quality: Pressure (chest) Context: Home Past Medical History - Provider Review Nursing Documentation Reviewed: Yes - Past History Past History: Non-Contributing - Infectious Disease Hx of Infectious Diseases: None - Tetanus Immunization Tetanus Immunization: Up to Date - Reproductive Menopause: Yes - Cardiac Hx Cardiac Disorders: Yes Hx Congestive Heart Failure: Yes Hx Hypertension: Yes - Pulmonary Hx Chronic Obstructive Pulmonary Disease (COPD): Yes Other/Comment: pulmonary hypertention - Neurological Hx Neurological Disorder: No - HEENT Hx HEENT Disorder: Yes Hx Blind: Yes (partial, left eye) - Renal Hx Renal Failure: Yes (Hemodialysis (T, TH,Sat)-SHUNT LEFT UPPER ARM.) - Endocrine/Metabolic Hx Endocrine Disorders: Yes (parathyroid) - Hematological/Oncological Hx Blood Disorders: Yes Hx Anemia: Yes - Integumentary Hx Dermatological Disorder: Yes (LEFT UPPER ARM SHUNT) Other/Comment: CALCIPHYLAXIS-DRY ROUND RASH ALL OVER HER BODY,ARMS,LEG. BILATERAL LEG EDEMA +3,SKIN TIGHTNESS,DISCOLORED DARK BROWN SKIN.TIGHT. - Musculoskeletal/Rheumatological Hx Musculoskeletal Disorders: Yes Hx Falls: Yes Hx Unsteady Gait: Yes (CANE,ROLLING WALKER) - Gastrointestinal Hx Gastrointestinal Disorders: Yes (GI BLEED,SBO,APPENDICITIS,INGRAM'S ESOPHAGUS) - Genitourinary/Gynecological Hx Genitourinary Disorders: Yes (OLIGURIA) - Psychiatric Hx Psychophysiologic Disorder: Yes (SMOKED CIGARETTES QUIT ) Hx Substance Use: No - Surgical History Hx Cholecystectomy: Yes Hx Orthopedic Surgery: Yes (bilateral hips) Other/Comment: left arm fistula , c-sectionx2, tonsilectomy - Anesthesia Hx Anesthesia Reactions: No Hx Malignant Hyperthermia: No - Suicidal Assessment Feels Threatened In Home Enviroment: No Family/Social History - Physician Review Nursing Documentation Reviewed: Yes Family/Social History: Unknown Family HX Smoking Status: Former Smoker Hx Alcohol Use: No Hx Substance Use: No Hx Substance Use Treatment: No Allergies/Home Meds Allergies/Adverse Reactions: Allergies aspirin Allergy (Severe, Verified 09/29/17 23:18) ANAPHYLAXIS ciprofloxacin Allergy (Severe, Verified 10/10/17 09:52) ANAPHYLAXIS [place] And Derivatives Allergy (Severe, Verified 10/10/17 09:52) ANAPHYLAXIS enalapril Allergy (Severe, Verified 10/10/17 09:52) HIVES heparin Allergy (Severe, Verified 10/10/17 09:52) ANAPHYLAXIS latex Allergy (Severe, Verified 10/10/17 09:52) ANAPHYLAXIS Penicillins Allergy (Severe, Verified 10/10/17 09:52) ANAPHYLAXIS Sulfa (Sulfonamide Antibiotics) Allergy (Severe, Verified 10/10/17 09:52) ANAPHYLAXIS levothyroxine sodium [From Levoxyl] Allergy (Intermediate, Verified 10/10/17 09: 52) RASH acetaminophen Allergy (Mild, Verified 10/10/17 09:52) RASH codeine Allergy (Mild, Verified 10/10/17 09:52) RASH enoxaparin Allergy (Mild, Verified 10/10/17 09:52) RASH iodine Allergy (Mild, Verified 10/10/17 09:52) RASH influenza virus vaccine, specific Allergy (Verified 10/10/17 09:52) hives Home Medications: Home Meds Medication Instructions Recorded Confirmed Cinacalcet [Sensipar] 30 mg PO DAILY 08/30/17 10/10/17 Esomeprazole Magnesium [Nexium] 40 mg PO DAILY 08/30/17 10/10/17 Review of Systems - Physician Review All systems were reviewed & negative as marked: Yes - Review of Systems Constitutional: absent: Fevers Respiratory: absent: Cough Cardiovascular: Chest Pain (mid-sternal) Gastrointestinal: Abdominal Pain (epigastric region), Stool Changes (dark stool ), Nausea, Vomiting, Hematemesis Genitourinary Female: absent: Dysuria, Hematuria Physical Exam - Physical Exam Narrative Physical Exam (Text): 10/10/17 Constitutional: appears weak Head: Normocephalic. Atraumatic. Eyes: PERRL. ENT: (+) dry mucous membranes. (+) blood in pharynx. Neck: Supple. Cardiovascular: Regular rate. Chest: No tenderness. Respiratory: Clear to auscultation bilaterally. GI: (+) epigastric tenderness with (+) guarding. Nondistended. Rectal: black stool occult +. Supervisor Core Drilling: Jaja Sumaya Back: No CVA tenderness. Musculoskeletal: No tenderness or swelling of extremities. Skin: No rash. Neurologic: Alert, no focal deficit. Vital Signs Reviewed: Yes Vital Signs Temp Pulse Pulse Resp BP Pulse Ox 10/10/17 11:35 96 H 18 137/65 100 10/10/17 10:05 89 10/10/17 09:47 98.3 F 94 H 17 149/76 100 Temperature: Afebrile Blood Pressure: Normal Pulse: Tachycardic Respiratory Rate: Normal Appearance: Positive for: Non-Toxic, Ill-Appearing. No: Well-Appearing (weak) Pain Distress: Mild Mental Status: Positive for: Alert and Oriented X 3 Medical Decision Making ED Course and Treatment: 10/10/17 Impression: 57 year old female who appears weak, with epigastric tenderness and guarding, blood in pharynx, dry mucous, and on rectal has black stool occult + complaining of mid-sternal chest pain associated with abdominal (nausea, vomiting, dark stool). Differential Diagnosis included but are not limited to: GI bleed Plan: -- EKG -- Chest X-ray -- CT abdomen and pelvis -- Labs -- Urinalysis -- Protonix -- Reassess and disposition Progress Notes: EKG: Ordered, reviewed, and independently interpreted the EKG. Rate : 92 BPM Rhythm : NSR Interpretation : Lateral ST-depression and T-inversion. No changes from previous EKG. 10/10/17 10:50 Chest X-ray: Creator : Jarrett Okeefe MD COMPARISON:09/30/2017 FINDINGS: LUNGS:No active pulmonary disease. PLEURA:No significant pleural effusion identified, no pneumothorax apparent. CARDIOVASCULAR: Moderate cardiomegaly. Moderate vascular and interstitial congestion OSSEOUS STRUCTURES: No significant abnormalities. VISUALIZED UPPER ABDOMEN: Normal. OTHER FINDINGS: None. IMPRESSION: Moderate cardiomegaly. Moderate vascular and interstitial congestion 10/10/17 12:02 FINDINGS: LOWER THORAX: Cardiomegaly LIVER: Hepatomegaly GALLBLADDER AND BILE DUCTS: Gallbladder removed PANCREAS: Unremarkable. No gross lesion or ductal dilatation. SPLEEN: There is a calcified splenic artery aneurysm measuring 1.8 cm in diameter. ADRENALS: Unremarkable. No mass. KIDNEYS AND URETERS: Atrophy of the kidneys VASCULATURE: Unremarkable. No aortic aneurysm. BOWEL: Unremarkable. No obstruction. No gross mural thickening. Metal clips are seen in the stomach. There is chronic gastric wall thickening. APPENDIX: Normal appendix. PERITONEUM: Unremarkable. No free fluid. No free air. LYMPH NODES: Unremarkable. No enlarged lymph nodes. BLADDER: Unremarkable. REPRODUCTIVE: Unremarkable. BONES: There is a new right hip prosthesis. There is some subcutaneous edema and swelling over the right hip. There is swelling of the gluteal muscles on the right side there is no discrete hematoma or fluid collection OTHER FINDINGS: None. IMPRESSION: No acute intra-abdominal findings Dr. Gomez accepts to her service, recommends Dr. Rosado for GI consultation. Protonix IVP and drip started. ICU consulted, normal blood pressure and HR, recommend Tele at this time. Questionable GI bleed vs swallowed blood from epistaxis. With acute bleeding, renal failure history, and on anticoagulation, will trend enzymes and no ASA for elevated troponin at this time, conveyed to Dr. Gomez. - Lab Interpretations Lab Results: 10/10/17 10:00 10/10/17 10:00 Lab Results 10/10/17 10:55: Urine Color Yellow, Urine Appearance Clear, Urine pH 8.5, Ur Specific [place] 1.020, Urine Protein 100 H, Urine Glucose (UA) 100 H, Urine Ketones Negative, Urine Blood Large H, Urine Nitrate Negative, Urine Bilirubin Negative, Urine Urobilinogen 0.2, Ur Leukocyte Esterase Negative, Urine RBC Tntc , Urine WBC 1 - 3, Ur Epithelial Cells 6 - 8, Amorphous Sediment Moderate, Urine Bacteria Many, Coarse Granular Casts Trace H, Urine Other Uyeast, Urine HCG, Qual Negative 10/10/17 10:00: Blood Type O POSITIVE, Antibody Screen Negative, Crossmatch See Detail, BBK History Checked Patient has bt 10/10/17 10:00: Sodium 138, Potassium 4.7, Chloride 100, Carbon Dioxide 26, Anion Gap 16, BUN 77 H, Creatinine 6.2 H, Est GFR ( Amer) 8, Est GFR (Non -Af Amer) 7, Random Glucose 88, Calcium 8.6, Total Bilirubin 3.7 H, AST 79 H D, ALT 38, Alkaline Phosphatase 620 H, Total Creatine Kinase 81, Troponin I 0.21 H * D, NT-Pro-B Natriuret Pep > 895690 H, Total Protein 5.9, Albumin 3.0, Globulin 2.9, Albumin/Globulin Ratio 1.0 L, Lipase 79 10/10/17 10:00: PT 39.7 H, INR 3.37 H, APTT 82.1 H 10/10/17 10:00: WBC 7.0, RBC 2.41 L, Hgb 6.5 L* D, Hct 21.1 L, MCV 87.6, MCH 27.0, MCHC 30.8 L, RDW 18.6 H, Plt Count 143, MPV 9.3, Gran % 72.2 H, Lymph % ( Auto) 12.9 L, [place] % (Auto) 10.9 H, Eos % (Auto) 2.7, Baso % (Auto) 1.3, Gran # 5.05, Lymph # (Auto) 0.9 L, [place] # (Auto) 0.8 H, Eos # (Auto) 0.2, Baso # (Auto ) 0.09 I have reviewed the lab results: Yes - RAD Interpretation Radiology Orders: 10/10/17 10:05 ABD & PELVIS IV CONTRAST ONLY [CT] Stat CHEST PORTABLE [RAD] Stat Business Intelligence Architect: Radiologist - EKG Interpretation Interpreted by ED Physician: Yes Type: 12 lead EKG Comparison: Similar to previous EKG - Medication Orders Current Medication Orders: Pantoprazole Sodium (Protonix 40mg Ivpb) 40 mg in 100 mls @ 20 mls/hr IVPB .Q5H LEX Discontinued Medications Morphine Sulfate (Morphine) 4 mg IVP STAT STA Stop: 10/10/17 10:44 Last Admin: 10/10/17 10:50 Dose: 4 mg IVP Administration Document 10/10/17 10:50 [facility] (Rec: 10/10/17 10:50 [facility] [id number]) Charges for Administration # of IVP Administrations 1 Morphine Sulfate (Morphine) 4 mg IVP STAT STA Stop: 10/10/17 11:58 Pantoprazole Sodium (Protonix Inj) 80 mg IVP STAT STA Stop: 10/10/17 10:07 Last Admin: 10/10/17 10:14 Dose: 80 mg IVP Administration Document 10/10/17 10:14 [facility] [place] (Rec: 10/10/17 10:15 [facility] [place] [id number]) Charges for Administration # of IVP Administrations 1 - Scribe Statement The provider has reviewed the documentation as recorded by the Scribe Jaja Shell Provider Scribe Attestation: All medical record entries made by the Scribe were at my direction and personally dictated by me. I have reviewed the chart and agree that the record accurately reflects my personal performance of the history, physical exam, medical decision making, and the department course for this patient. I have also personally directed, reviewed, and agree with the discharge instructions and disposition. Disposition/Present on Arrival - Present on Arrival Any Indicators Present on Arrival: No History of DVT/PE: No History of Uncontrolled Diabetes: No Urinary Catheter: No History of Decub. Ulcer: No History Surgical Site Infection Following: Orthopedic Procedures - Disposition Have Diagnosis and Disposition been Completed?: Yes Diagnosis: Severe anemia, GI bleed, Elevated troponin Disposition: HOSPITALIZED Disposition Time: 12:05 Patient Plan: Admission Condition: GUARDED Referrals: [employer] Radha Retony, [Non-Staff] - Follow up with primary Forms: [employer] (Citizen Of [place])
[2017-10-10 10:17] LABS: BASO # 0.09 K/mm3 (0.0-2.0); BASO % 1.3 % (0.0-3.0); EOS # 0.2 (0.0-0.7); EOS % 2.7 % (1.5-5.0); GRAN # 5.05 (1.4-6.5); GRAN % 72.2 % (50.0-68.0); LYMPH # 0.9 (1.2-3.4); LYMPH % 12.9 % (22.0-35.0); MEAN CELL VOLUME 87.6 fl (80.0-105.0); MEAN CORPUSCULAR HGB CONC 30.8 g/dl (31.0-37.0); MEAN PLATELET VOLUME 9.3 fl (7.0-11.0); MONO # 0.8 (0.1-0.6); MONO % 10.9 % (1.0-6.0); RBC 2.41 10^6/uL (3.5-6.1); RED CELL DISTRIBUTION WIDTH 18.6 % (11.5-14.5)
[2017-10-10] MEDS ORDERED: Iohexol 350 MG/100 ML VIAL ONE (10:26)
[2017-10-10 10:31] LABS: HEMOGLOBIN 6.5 g/dL (12.0-16.0)
[2017-10-10 10:36] LABS: ALT/SGPT 38 U/L (7-56); AST/SGOT 79 U/L (14-36); BLOOD UREA NITROGEN 77 mg/dL (7-21); CALCIUM 8.6 mg/dL (8.4-10.5); GFR AFRICAN-AMERICAN 8; GFR NON-AFRICAN AMERICAN 7; LIPASE 79 U/L (23-300)
[2017-10-10] MEDS ORDERED: Morphine 5 MG/ML SYRINGE IVP STA (10:43)
--- NOTE | 2017-10-10 10:47 | RAD ---
HISTORY: gi bleed COMPARISON: 09/30/2017 FINDINGS: LUNGS: No active pulmonary disease. PLEURA: No significant pleural effusion identified, no pneumothorax apparent. CARDIOVASCULAR: Moderate cardiomegaly. Moderate vascular and interstitial congestion OSSEOUS STRUCTURES: No significant abnormalities. VISUALIZED UPPER ABDOMEN: Normal. OTHER FINDINGS: None. IMPRESSION: Moderate cardiomegaly. Moderate vascular and interstitial congestion
[2017-10-10 10:54] LABS: INR 3.37 (0.93-1.08); PROTHROMBIN TIME 39.7 SECONDS (9.4-12.5)
[2017-10-10 10:55] LABS: PARTIAL THROMBOPLASTIN TIME 82.1 Seconds (25.1-36.5)
[2017-10-10 11:04] LABS: TROPONIN I 0.21 ng/mL
[2017-10-10 11:25] LABS: PH,URINE 8.5 (4.7-8.0); URINE BILIRUBIN NEGATIVE (NEGATIVE); URINE BLOOD LARGE (NEGATIVE); URINE GLUCOSE (UA) 100 mg/dL (NEGATIVE); URINE LEUKOCYTE ESTERASE NEGATIVE Leu/uL (NEGATIVE); URINE PROTEIN 100 mg/dL (<30 mg/dL); URINE UROBILINOGEN 0.2 E.U./dL (<1 E.U./dL)
[2017-10-10 11:27] LABS: B-TYPE NATRIURETIC PEPTIDE > 350000 pg/mL (0-450)
[2017-10-10 11:27] LABS: HCG,QUALITATIVE URINE NEGATIVE (NEGATIVE); URINE APPEARANCE CLEAR (CLEAR); URINE COLOR YELLOW (YELLOW)
[2017-10-10 11:35] LABS: URINE RBC TNTC /hpf (0-2)
[2017-10-10 11:36] LABS: URINE BACTERIA MANY (NEG)
[2017-10-10 11:37] LABS: URINE COARSE GRANULAR CAST TRACE /hpf (0-2)
[2017-10-10 11:38] LABS: URINE AMORPHOUS SEDIMENT MODERATE
--- NOTE | 2017-10-10 11:50 | CT ---
PROCEDURE: CT Abdomen and Pelvis with contrast HISTORY: GI bleed, abdominal pain COMPARISON: 06/22/2017 CT TECHNIQUE: Contrast dose: 100 cc of Omni 350 Radiation dose: Total exam DLP = 311 mGy-cm. This CT exam was performed using one or more of the following dose reduction techniques: Automated exposure control, adjustment of the mA and/or kV according to patient size, and/or use of iterative reconstruction technique. FINDINGS: LOWER THORAX: Cardiomegaly LIVER: Hepatomegaly GALLBLADDER AND BILE DUCTS: Gallbladder removed PANCREAS: Unremarkable. No gross lesion or ductal dilatation. SPLEEN: There is a calcified splenic artery aneurysm measuring 1.8 cm in diameter. ADRENALS: Unremarkable. No mass. KIDNEYS AND URETERS: Atrophy of the kidneys VASCULATURE: Unremarkable. No aortic aneurysm. BOWEL: Unremarkable. No obstruction. No gross mural thickening. Metal clips are seen in the stomach. There is chronic gastric wall thickening. APPENDIX: Normal appendix. PERITONEUM: Unremarkable. No free fluid. No free air. LYMPH NODES: Unremarkable. No enlarged lymph nodes. BLADDER: Unremarkable. REPRODUCTIVE: Unremarkable. BONES: There is a new right hip prosthesis. There is some subcutaneous edema and swelling over the right hip. There is swelling of the gluteal muscles on the right side there is no discrete hematoma or fluid collection OTHER FINDINGS: None. IMPRESSION: No acute intra-abdominal findings
[2017-10-10] MEDS ORDERED: Morphine 4 mg/ml ISec IVP STA (11:57)
[2017-10-10] MEDS: Pantoprazole 40mg/100mL NS 40 MG/100 ML BAG IVPB SCH ×3 (12:17→21:39)
--- NOTE | 2017-10-10 13:25 | CP.PCM.CON ---
<RicardoJose - Last Filed: 10/10/17 13:55> History of Present Illness - History of Present Illness History of Present Illness: Jose Silva PGY1 ICU Consult for Dr. Mcelroy Ms. Kraus is a 57 year old female with past medical history of ESRD on hemodialysis (last time was Monday, due for one today @ [facility] [place]), hypertension, COPD, chronic anemia, GERD, C. diff, chronic pancreatitis, and small brain aneurysm presenting from [facility] to the ED complaining of chest pain , nausea, vomiting, and dark stools x1 day. ICU was consulted for Hgb 6.5. The patient is due for dialysis today and will receive it in the ED. When seen by ICU team, the patient is able to speak in full sentences and is not short of breath. her last dialysis session was Monday and she is due for one today; her cardiographer is Dr. Rose. she states that she has also been having dark stools and vomiting which is also dark. she also endorses a decreased appetite. she is currently not complaining of chest pain, and states that it is worse when she breaths in deeply. She is hemodynamically stable and is in no respiratory distress on NC. Her EKG is noted as NSR @ 92 bpm, w/ LVH and prolonged QT and possible lateral ischemia. Past Medical History: as above Past Surgical History: cholecysectomy, pericardial window, b/l hip replacement Allergy: aspirin, ciprofloxacin, citrus, enalapril, heparin, latex, penicillin, sulfa, levothyroxine, acetominophen, codeine, enoxaparin, iodine Family History: unknown Social: smokes 1PPD for about 30 years, denies alcohol or illicit drug use Review of Systems - Review of Systems All systems: reviewed and no additional remarkable complaints except (as per HPI ) Past Patient History - Infectious Disease Hx of Infectious Diseases: None - Tetanus Immunizations Tetanus Immunization: Up to Date - Past Medical History & Family History Past Medical History?: Yes - Past Social History Smoking Status: Heavy Smoker > 10 Cigarettes Daily Alcohol: None Drugs: Denies Home Situation {Lives}: Snf - CARDIAC Hx Cardiac Disorders: Yes Hx Congestive Heart Failure: Yes Hx Hypertension: Yes - PULMONARY Hx Chronic Obstructive Pulmonary Disease (COPD): Yes Other/Comment: pulmonary hypertention - NEUROLOGICAL Hx Neurological Disorder: No - HEENT Hx HEENT Problems: Yes Hx Blind: Yes (partial, left eye) - RENAL Hx Renal Failure: Yes (Hemodialysis (T, TH,Sat)-SHUNT LEFT UPPER ARM.) - ENDOCRINE/METABOLIC Hx Endocrine Disorders: Yes (parathyroid) - HEMATOLOGICAL/ONCOLOGICAL Hx Blood Disorders: Yes Hx Anemia: Yes - INTEGUMENTARY Hx Dermatological Problems: Yes (LEFT UPPER ARM SHUNT) Other/Comment: CALCIPHYLAXIS-DRY ROUND RASH ALL OVER HER BODY,ARMS,LEG. BILATERAL LEG EDEMA +3,SKIN TIGHTNESS,DISCOLORED DARK BROWN SKIN.TIGHT. - MUSCULOSKELETAL/RHEUMATOLOGICAL Hx Musculoskeletal Disorders: Yes Hx Falls: Yes Hx Unsteady Gait: Yes (CANE,ROLLING WALKER) - GASTROINTESTINAL Hx Gastrointestinal Disorders: Yes (GI BLEED,SBO,APPENDICITIS,INGRAM'S ESOPHAGUS) - GENITOURINARY/GYNECOLOGICAL Hx Genitourinary Disorders: Yes (OLIGURIA) - PSYCHIATRIC Hx Psychophysiologic Disorder: Yes (SMOKED CIGARETTES QUIT ) Hx Substance Use: No - SURGICAL HISTORY Hx Cholecystectomy: Yes Hx Orthopedic Surgery: Yes (bilateral hips) Other/Comment: left arm fistula , c-sectionx2, tonsilectomy - ANESTHESIA Hx Anesthesia Reactions: No Hx Malignant Hyperthermia: No Meds Allergies/Adverse Reactions: Allergies Allergy/AdvReac Type Severity Reaction Status Date / Time aspirin Allergy Severe ANAPHYLAXIS Verified 09/29/17 23:18 ciprofloxacin Allergy Severe ANAPHYLAXIS Verified 10/10/17 09:52 [place]ane And Derivatives Allergy Severe ANAPHYLAXIS Verified 10/10/17 09:52 enalapril Allergy Severe HIVES Verified 10/10/17 09:52 heparin Allergy Severe ANAPHYLAXIS Verified 10/10/17 09:52 latex Allergy Severe ANAPHYLAXIS Verified 10/10/17 09:52 Penicillins Allergy Severe ANAPHYLAXIS Verified 10/10/17 09:52 Sulfa (Sulfonamide Allergy Severe ANAPHYLAXIS Verified 10/10/17 09:52 Antibiotics) levothyroxine sodium Allergy Intermediate RASH Verified 10/10/17 09:52 [From Levoxyl] acetaminophen Allergy Mild RASH Verified 10/10/17 09:52 codeine Allergy Mild RASH Verified 10/10/17 09:52 enoxaparin Allergy Mild RASH Verified 10/10/17 09:52 iodine Allergy Mild RASH Verified 10/10/17 09:52 influenza virus vaccine, Allergy hives Verified 10/10/17 09:52 specific - Medications Medications: Current Medications Pantoprazole Sodium (Protonix 40mg Ivpb) 40 mg in 100 mls @ 20 mls/hr IVPB .Q5H LEX Last Admin: 10/10/17 12:17 Dose: 20 mls/hr Physical Exam - Constitutional Appears: Well, Non-toxic, No Acute Distress, Chronically Ill - Head Exam Head Exam: NORMAL INSPECTION - Eye Exam Eye Exam: EOMI, Normal appearance, PERRL - ENT Exam ENT Exam: Mucous Membranes Dry - Neck Exam Neck exam: Positive for: Full Rom. Negative for: Tenderness - Respiratory Exam Respiratory Exam: Clear to Auscultation Bilateral, NORMAL BREATHING PATTERN. absent: Rales, Rhonchi, Wheezes - Cardiovascular Exam Cardiovascular Exam: RRR, +S1, +S2. absent: JVD - GI/Abdominal Exam GI & Abdominal Exam: Normal Bowel Sounds, Soft, Tenderness (lower abdomen ) - Extremities Exam Extremities exam: Positive for: normal inspection - Back Exam Back exam: NORMAL INSPECTION - Neurological Exam Neurological exam: Alert, Oriented x3 - Psychiatric Exam Psychiatric exam: Normal Affect, Normal Mood - Skin Skin Exam: Pallor Results - Vital Signs Recent Vital Signs: Last Vital Signs Temp 98.4 F 10/10/17 13:17 Pulse 98 H 10/10/17 13:17 Resp 18 10/10/17 13:17 BP 140/72 10/10/17 13:17 Pulse Ox 100 10/10/17 12:30 - Labs Result Diagrams: 10/10/17 10:00 10/10/17 10:00 Assessment & Plan - Assessment and Plan (Free Text) Assessment: 57 year old female with past medical history of ESRD on hemodialysis (last time was Monday, due for one today @ [facility] [place]), hypertension, COPD, chronic anemia, GERD , C. diff, chronic pancreatitis, and small brain aneurysm presenting from [facility] to the ED complaining of chest pain, nausea, vomiting, and dark stools x1 day. Noted to be anemic in ED, as on prior admissions. She is currently hemodynamically stable, and in no acute respiratory distress. Plan: Anemia likely 2/2 GI bleed - recent endoscopy by Dr. Rosado showed erythematous mucosa in gastric fundus. Engorged veins in fundus. - HD stable and not requiring ICU monitoring at this time, recommend tele - recommend 2u pRBC, 2u FFP and ddavp during dialysis - GI consulted, recs appreciated - avoid ASA and blood thinners ESRD on HD - HD planned for today - give blood products during HD - Nephro is consulted Patient was seen, examined and discussed with attending, Dr. Lilibeth Silva PGY1 Pager # [phone] <Kosta Mcelroy - Last Filed: 10/10/17 14:32> Meds - Medications Medications: Current Medications Pantoprazole Sodium (Protonix 40mg Ivpb) 40 mg in 100 mls @ 20 mls/hr IVPB .Q5H LEX Last Admin: 10/10/17 12:17 Dose: 20 mls/hr Results - Vital Signs Recent Vital Signs: Last Vital Signs Temp 98.1 F 10/10/17 14:18 Pulse 95 H 10/10/17 14:18 Resp 18 10/10/17 14:18 BP 152/77 H 10/10/17 14:18 Pulse Ox 100 10/10/17 12:30 - Labs Result Diagrams: 10/10/17 10:00 10/10/17 10:00 Assessment & Plan - Assessment and Plan (Free Text) Assessment: Patient seen and examined, with resident, agree with note with following additions/exceptions: Patient is 57yo female with PMHx of ESRD on HD T,Th,Sat, HTN, COPD, Previous GIB , GERD, C diff, chronic pancreatitis, presented with melena, and epistaxis. Currently the patient is afebrile, HD stable, SBP 120-140s, HR 90s, AAOx3, NAD, complaining of pleuritic chest pain and abdominal pain. HH 6.5, baseline 7-8 GIB Epistaxis CP ESRD on HD Recommend: - supp o2 as needed - panculture, UCx, BCx, Procal - transfuse 2u PRBC, 2u FFP, with HD, consider DDAVP - NPO - PPI drip - GI eval - consider CT A/P - Cardiology eval - Stable, monitor on telemetry
[2017-10-10] MEDS ORDERED: Morphine 5 MG/ML SYRINGE IVP PRN (16:30)
[2017-10-10] MEDS: Morphine 4 mg/ml ISec IVP PRN ×2 (17:56→23:25)
--- NOTE | 2017-10-10 18:30 | CON ---
DATE: CONSULT REQUESTED BY: Dr. Gomez. REASON FOR CONSULTATION: Coagulopathy, anemia, and GI bleed. HISTORY OF PRESENT ILLNESS: Ms. Kraus is a 57-year-old female admitted to the hospital. She was recently discharged from the hospital, underwent hip surgery. She was placed on prophylactic anticoagulation with Pradaxa. She vomited once with dark-colored vomitus. Hemoglobin in the ER is 6 g/dL. She has chronic kidney disease and anemia related to chronic kidney disease. She had received multiple transfusions in the past. She was dialyzed today, received 2 units of blood transfusions in the dialysis. Blood work showed coagulopathy with elevated PT, PTT, and INR. PAST MEDICAL HISTORY: End-stage renal disease, on hemodialysis; pulmonary hypertension; COPD; blindness in the left eye; chronic anemia; history of multiple blood transfusions in the past; and history of recurrent fall. PAST SURGICAL HISTORY: Cholecystectomy, bilateral hip replacement, left arm fistula, , and tonsillectomy. FAMILY HISTORY: Unknown. PERSONAL HISTORY: Former smoker. No history of alcohol abuse. ALLERGIES: MULTIPLE DRUG ALLERGIES LISTED ON THE MAR. HOME MEDICATIONS: Sensipar 30 mg daily and Nexium 40 mg daily. REVIEW OF SYSTEMS: As per HPI. Rest of 12-point review of systems reviewed and negative. PHYSICAL EXAMINATION: GENERAL: Comfortable in bed, in no acute distress. VITAL SIGNS: Temperature 98.3, heart rate 94 per minute, pulses 89 per minute, respiratory rate 17 per minute, and blood pressure 137/55. HEENT: Pallor positive. NECK: No lymphadenopathy. CHEST: Air entry present and equal bilaterally. No added sound. CARDIOVASCULAR: S1, S2 normal. No murmur. No gallop. ABDOMEN: Soft, nontender. No hepatosplenomegaly. EXTREMITIES: No edema. No petechiae. No rash. SPINE: Nontender. LABORATORY DATA: White count 7, hemoglobin 6.5, hematocrit 21, and platelets 143. Sodium 138, potassium 4.7. BUN 77 and creatinine 6.2. PT 39, INR 2.0 ASSESSMENT: 1. Status post hip replacement, recent. 2. Syo-PS-uutszifmt myocardial infarction, elevated troponin. 3. Questionable gastrointestinal bleeding. 4. Severe anemia. 5. End-stage renal disease, on hemodialysis. PLAN: She was hemodialyzed today. I will repeat the coag, PT, PTT, INR. If still elevated, we will reevaluate for coagulopathy. 2 units of blood transfusions today. She has chronic anemia. Received multiple blood transfusions in the past. Anemia, likely related to end-stage renal disease, questionable GI bleed. We will monitor closely. GI consultation, Dr. Rosado requested. Currently comfortable. Troponins elevated-mgm as per cardiology. Thank you Dr. Gomez for allowing us to participate in Ms. Kraus's care. Chelsy Dominguez MD [place]
[2017-10-10 18:37] VITALS: BMI 23.3
[2017-10-10 19:11] LABS: HEMOGLOBIN 8.8 g/dL (12.0-16.0); MEAN CELL VOLUME 86.7 fl (80.0-105.0); MEAN CORPUSCULAR HEMOGLOBIN 27.9 pg (25.0-35.0); MEAN CORPUSCULAR HGB CONC 32.2 g/dl (31.0-37.0); MEAN PLATELET VOLUME 8.8 fl (7.0-11.0); RBC 3.15 10^6/uL (3.5-6.1); RED CELL DISTRIBUTION WIDTH 17.1 % (11.5-14.5); WHITE BLOOD COUNT 12.2 10^3/ul (4.5-11.0)
[2017-10-10 19:25] LABS: INR 2.18 (0.93-1.08); PARTIAL THROMBOPLASTIN TIME 60.4 Seconds (25.1-36.5); PROTHROMBIN TIME 25.2 SECONDS (9.4-12.5)
--- NOTE | 2017-10-10 19:45 | CARD ---
APPROVED REPORT EKG Measurement Heart [id number] <Conclusion> Normal sinus rhythm Voltage criteria for left ventricular hypertrophy ST & T wave abnormality, consider lateral ischemia Prolonged QT Abnormal ECG
[2017-10-10] MEDS: Levalbuterol 1.25 MG/3 ML Inhal Soln UD IH SCH (19:55)
[2017-10-10] MEDS: Dextrose 5%/0.45% NS 1,000 ML IV SCH (20:30)
[2017-10-11] MEDS: Levalbuterol 1.25 MG/3 ML Inhal Soln UD IH SCH ×4 (01:06→21:18)
--- NOTE | 2017-10-11 01:17 | CON ---
DATE: 10/10/2017 The patient admitted for Dr. Gomez. REFERRING PHYSICIAN: Shawn Gomez MD. REASON FOR CONSULTATION: To provide dialysis service for a patient, well known to us who presents with severe anemia in the setting of epistaxis and GI bleeding. HISTORY OF PRESENT ILLNESS: The patient is a 57-year-old white female with a history of end-stage renal disease, on chronic maintenance hemodialysis, currently dialyzing at [facility] on a Monday, , Monday schedule; recent right total hip replacement surgery. This was at [facility] in September 2017, the patient was admitted to [facility] 10 days ago for cellulitis of her left lower extremity, treated with both IV and oral antibiotic therapy. History of COPD, hypertension, pulmonary hypertension, reflux, secondary hyperparathyroidism, and anemia. The patient was sent over from her rehab center for increased weakness, nausea, vomiting, abdominal pain, and chest pain. She was noted to have dark stools. The patient reportedly also had an episode of epistaxis. The patient has been on chronic anticoagulation with Pradaxa. In the ER, the patient was noted to have a hemoglobin of 6.5, down from 8.6 one week earlier. The patient is currently seen by me in dialysis. She will be receiving 2 units of packed red blood cells. She will be evaluated by her Human Resources Services Specialist. She did have an endoscopy during a recent admission which showed an erythematous gastric fundus and engorged veins. 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 HOME MEDICATIONS: At home include that of Nexium, Pradaxa, Sensipar, Lipitor, Xopenex, Renagel, Toprol, and Claritin. CURRENT MEDICATIONS: In hospital include that of IV Protonix. ALLERGIES: THE PATIENT IS ALLERGIC TO ASPIRIN, CIPROFLOXACIN, CITRUS AND DERIVATIVES, ENALAPRIL, HEPARIN, LATEX, PENICILLIN, SULFA, LEVOXYL, ACETAMINOPHEN, CODEINE, ENOXAPARIN, IODINE, AND INFLUENZA VIRUS VACCINE. SOCIAL HISTORY: No history of alcohol use. Positive cigarettes, the patient smokes a half-a-pack per day. The patient has been smoking for greater than 30 years. FAMILY HISTORY: Noncontributory. REVIEW OF SYSTEMS: GENERAL: The patient states appetite has been diminished. Weight has remained stable during her stay in the rehab center. ENT: Denies any hearing or visual problems. Positive nose bleeding as noted above. PULMONARY: Positive shortness of breath. Positive COPD, history of pulmonary hypertension. CARDIAC: History of cardiomegaly. History of CHF. GASTROINTESTINAL: Nausea, vomiting, abdominal pain, and dark stools as noted above. GENITOURINARY: Small amounts of urine only. GYNECOLOGIC: Postmenopausal. ENDOCRINE: No history of diabetes. Positive history of secondary hyperparathyroidism. MUSCULOSKELETAL: No complaints. NEUROLOGIC: No history of syncope, CVA, TIA, or seizures. HEMATOLOGY AND ONCOLOGY: History of anemia secondary to chronic kidney disease. No history of malignancy. PSYCHIATRIC: Negative. PHYSICAL EXAMINATION: GENERAL: The patient is currently seen in dialysis. VITAL SIGNS: Blood pressure presently is 156/75, temperature is 97.7 with a respiratory rate of 18, and a pulse of 94. HEENT: Shows her to be normocephalic, atraumatic. No evidence for any recent epistaxis. Pupils are equal and reactive to light and accommodation. Extraocular muscles are intact. Conjunctivae are pale. Sclerae are nonicteric. Posterior pharynx appears normal. NECK: Supple. No neck vein distention. No thyromegaly. No lymphadenopathy. No bruits. CHEST: Clear to auscultation and percussion with no rales, rhonchi, or wheezing noted. CARDIOVASCULAR: Shows a regular rate and rhythm with a soft systolic murmur at left lower sternal border. No S3. No S4. No rub. ABDOMEN: Soft. Bowel sounds are normal. Positive diffuse tenderness on palpation. No distention. No rebound or guarding. No masses appreciated. BACK: No CVAT. No spinal tenderness. EXTREMITIES: Show 1+ pitting edema of her lower extremity bilaterally. No evidence for cellulitis of her left lower extremity. Dressing over her right upper thigh area in the area of the previous total hip replacement surgery. No apparent erythema. No drainage into the dressing and no bleeding. NEUROLOGIC: Shows her to be alert, oriented x3. No gross focal motor or sensory deficits are noted. LABORATORY DATA AND IMAGING: EKG showed a normal sinus rhythm, LVH with a prolonged QT interval. Admitting chest x-ray showed mild cardiomegaly with pulmonary vascular congestion. Admitting abdominopelvic CT scan showed no acute findings. The patient did have gastric wall thickening. CBC: White blood cell count 7.0; hemoglobin 6.5, down from a previous baseline of 8.6 during her last admission. Coags show an elevated PT and a PTT, the patient had been on Pradaxa. Chemistries: Normal electrolytes, BUN 77, creatinine of 6.2. Mild elevation of her liver enzymes. BNP is greater than 350,000. Troponin is elevated at 0.21. Albumin is 3.0. Calcium is 8.6 with bilirubin of 3.7. Phosphorus level is pending. Urine showed 2+ protein, positive glucose, one to three white blood cells, TNTC red blood cells. Urine, bacteria are many. ASSESSMENT: 1. Severe anemia in the setting of guaiac positive stools and possible melena. The patient will once again be reevaluated for gastrointestinal bleed. There is also a history of epistaxis, but the severity of the epistaxis is unclear to me. The patient is complaining of abdominal pain, nausea, vomiting. She will be seen by GI later today. In light of her gastrointestinal bleeding and dropping hemoglobin, the patient will be transfused 2 units of packed red blood cells on dialysis today. She will continue on intravenous proton pump inhibitor therapy. 2. End-stage renal disease. The patient will continue her routine Monday, , Monday dialysis. No heparin. 3. Hypertension. Blood pressure controlled on present medical therapy. 4. History of pulmonary hypertension with chronic obstructive pulmonary disease, secondary to cigarette smoking. The patient will continue on inhalation therapy. 5. History of gastroesophageal reflux disease. The patient again is on protein pump inhibition therapy. 6. History of secondary hyperparathyroidism. We will check phosphorus level. The patient will continue vitamin D therapy, binder therapy when she eats and Sensipar for secondary hyperparathyroidism. 7. History of severe anemia. The patient will be transfused 2 units of packed red blood cells on dialysis today with close monitoring of her CBC in light of her perhaps upper gastrointestinal bleeding in combination with epistaxis. 8. Status post left lower extremity cellulitis. This appears to have resolved. 9. Status post right total hip replacement surgery. This appears to be stable. 10. Chest pain with an elevated troponin. The patient will likely be evaluated by Cardiology. PLAN: 1. Hemodialysis on Monday, , and Monday. No heparin. 2. Check urine C and S in light of red blood cells and white blood cells in her urine. 3. Increase ultrafiltration on dialysis in light of her lower extremity edema and the need for blood transfusions. 4. GI evaluation and perhaps cardiology evaluation pending. 5. Continue IV PPI therapy. 6. Discussed with staff in the Hemodialysis Unit. The patient will likely go to telemetry from dialysis. She was evaluated by the ICU staff and will not be admitted to the ICU. Thank you for letting me partake and share in the care of our mutual patient. Deon Mathews MD
--- NOTE | 2017-10-11 03:06 | HP ---
HISTORY OF PRESENT ILLNESS: Patient is 57-year-old female, who was recently operated for right hip reconstruction surgery. Patient had congenital hip problem. She was operated by Dr. Dominguez. She was initially in [facility], but she signed out from there. She was admitted last week on 09/30/2017 with left leg cellulitis. She was given p.o. Zyvox and she was transferred to [place], where she was placed on Eliquis 2.5 mg daily for DVT prophylaxis, since she is ALLERGIC TO LOVENOX AND HEPARIN. Patient was brought to the emergency room because of black stool, feeling weak, dizzy, and lethargic. Patient also states that she was nauseous and she had coffee-ground vomitus this morning. She was found to have low hemoglobin. Patient was given two blood transfusions during hemodialysis, which she got this morning. PAST MEDICAL HISTORY: Significant for 1. End-stage renal disease, on hemodialysis. 2. History of pulmonary hypertension. 3. History of cardiac cirrhosis. 4. COPD. 5. Left eye visual impairment. 6. Recent right hip reconstruction surgery. 7. History of gastritis. PAST SURGICAL HISTORY: Significant for: 1. History of bilateral hip replacement in the remote past. 2. Status post cholecystectomy. FAMILY HISTORY: Not relevant. MEDICATIONS AT HOME: She is on tramadol 50 mg q. 8. She is on Renagel 800 daily, Nexium 40 mg daily. She was on Pradaxa 75 q. 12, Sensipar 30 mg daily, Lipitor 80 mg daily, metoprolol 25 daily, and Claritin 10 mg daily as needed. ALLERGIES: PATIENT HAS MULTIPLE ALLERGIES INCLUDING ASPIRIN, CIPRO, CITRUS DERIVATIVES, ENALAPRIL, HEPARIN, LATEX, PENICILLIN, SULFA, LEVOTHYROXINE, ACETAMINOPHEN, CODEINE, ENOXAPARIN, IODINE, FLU VACCINE. REVIEW OF SYSTEMS: Significant for shortness of breath, cough, and being lethargic. PHYSICAL EXAMINATION: GENERAL: She is awake and alert, looks pale. VITAL SIGNS: She is afebrile. Pulse 113, respirations 18, blood pressure 157/81. LUNGS: Bilateral diffuse breath sounds. HEART: S1, S2 audible. ABDOMEN: Soft. Slight epigastric discomfort. No rebound or guarding. NEUROLOGIC: She is awake, alert, oriented, able to communicate. LABORATORY DATA: WBC 7.0, hemoglobin 6.5, hematocrit 21, and platelets of 143. After two blood transfusions, her WBC is 12.2, hemoglobin 8.8, hematocrit 27.3, and platelets of 122. Her PT 39.7, INR 3.37. Chemistry: Sodium 138, potassium 4.7, chloride 100, CO2 of 26, BUN 77, creatinine 6.2. AST 79, ALT 38, troponin 0.21. Urinalysis is unremarkable. ASSESSMENT: 1. Gastrointestinal bleed. 2. History of arteriovenous malformation. 3. History of cardiac cirrhosis. 4. End-stage renal disease, on hemodialysis. 5. Status post right hip replacement. 6. Rnz-SD-kuduphjba myocardial infarction. 7. Anemia, status post two blood transfusions. PLAN: Patient received hemodialysis. She received two blood transfusions. So, plan is patient is currently on Protonix. We will keep her n.p.o. I will start her on small dose of IV fluid. Analgesics as needed. Follow up CBC and CMP in a.m. and GI consult by Dr. Rosado and hematology consult by Dr. Dominguez has been requested. Shawn Gomez MD
[2017-10-11] MEDS: Pantoprazole 40mg/100mL NS 40 MG/100 ML BAG IVPB SCH ×4 (03:30→21:58)
[2017-10-11] MEDS: Morphine 4 mg/ml ISec IVP PRN ×2 (05:17→10:11)
[2017-10-11 07:38] LABS: MEAN CELL VOLUME 86.9 fl (80.0-105.0); MEAN CORPUSCULAR HEMOGLOBIN 27.5 pg (25.0-35.0); MEAN CORPUSCULAR HGB CONC 31.6 g/dl (31.0-37.0); MEAN PLATELET VOLUME 8.9 fl (7.0-11.0); RBC 2.91 10^6/uL (3.5-6.1); RED CELL DISTRIBUTION WIDTH 17.5 % (11.5-14.5); WHITE BLOOD COUNT 12.5 10^3/ul (4.5-11.0)
[2017-10-11] MEDS: Metoprolol Succinate 25 mg XL Tab PO SCH (10:11)
--- NOTE | 2017-10-11 12:13 | PN ---
DATE: SUBJECTIVE: The patient is 57-year-old female seen and examined, lying in bed, complained of epigastric discomfort. No more coffee ground, no rectal bleeding. She is on ice chips. PHYSICAL EXAMINATION VITAL SIGNS: She is afebrile. Pulse 115, respirations 19, blood pressure 160/72. LUNGS: Bilateral fair airflow. No rhonchi or crackle. HEART: S1, S2 audible. ABDOMEN: Soft. Slight epigastric discomfort. NEUROLOGIC: She is awake, alert, oriented, communicative. SKIN: Her right hip wound seems to be healing and has no erythema. LABORATORY DATA: WBC 12.5, hemoglobin 8.0, hematocrit 25.3, platelet 113,000. PT 25.2, INR 2.18. Chemistry: Sodium 138, potassium 4.7, chloride 100, CO2 26, BUN 77, creatinine 6.2, blood sugar of 88. ASSESSMENT 1. Gastrointestinal bleed. 2. End-stage renal disease, on hemodialysis. 3. Status post fluid overload. 4. Right hip reconstruction surgery. 5. History of gastrointestinal arteriovenous malformations. 6. Chronic obstructive pulmonary disease. 7. Pulmonary hypertension. 8. Cardiac cirrhosis. PLAN: Patient is on small dose of IV fluid. She will be given one blood transfusion today and we will monitor her H and H and if her H and H is stable, we will start to advance diet and follow up H and H in the morning. Shawn Gomez MD
[2017-10-11] MEDS ORDERED: Morphine 4 mg/ml ISec IVP PRN (12:54)
[2017-10-11] MEDS ORDERED: Morphine 4 mg/ml ISec IVP ONE (13:05)
--- NOTE | 2017-10-11 16:55 | PN ---
DATE: 10/11/2017 SUBJECTIVE: The patient is seen lying in bed. She is sleeping. She looks very pale. PHYSICAL EXAMINATION: GENERAL: Middle-aged lady lying in bed. VITAL SIGNS: Blood pressure 160/72, heart rate 115, respiratory rate 19, temperature 99.9. HEENT: Normocephalic, atraumatic, positive pallor. NECK: Supple, no JVD. LUNGS: Bilateral equal entry, bilateral equal expansion. CARDIAC: S1, S2. Regular rate and rhythm. No murmur, no rub. ABDOMEN: Soft, nondistended, positive epigastric tenderness, bowel sounds present. EXTREMITIES: No lower extremity edema. INTAKE AND OUTPUT: Not charted. LABORATORY DATA: WBC 12.5, hemoglobin 8.0, hematocrit 25, and platelets 113. No chemistry today. Troponin 0.21 yesterday. BNP greater than 50,000. CURRENT MEDICATIONS: D5 half-normal saline, morphine, Protonix, Toprol-XL, and Xopenex. ASSESSMENT: 1. Severe anemia, epigastric pain, suspected gastrointestinal blood loss. 2. Leukocytosis, new fever. 3. Hypertension. 4. End-stage renal disease. 5. Recent right hip replacement. PLAN: 1. The patient received 2 units of blood yesterday during dialysis, we will give her another unit of blood today. She will receive the 4th unit tomorrow during dialysis. 2. Pancultures. 3. ? Empiric antibiotics. 4. Continue IV PPI. 5. GI evaluation. Mansi Rose MD
--- NOTE | 2017-10-11 17:37 | PCM.RRT ---
Addendum entered and electronically signed by Alison Euceda DO 10/11/17 17:39: addendum to summary Patient seen and examined at bedside. [employer] was called due to hypotension, saturation in 70s per nursing staff. Patient is tachycardic, non-diaphoretic, no accessory muscle use, no respiratory distress. Patient is complaining of chest pain since this morning and said that it's the same since this morning. Patient is able to answer questions appropriately and moves all extremities spontaneously. Original Note: <Alison Euceda - Last Filed: 10/11/17 17:34> [employer] Nurse Assessment - Situation Date: 10/11/17 Time [employer] was called: 17:21 [employer] Responder Arrival Time: 17:22 [employer] Location:: [address] [place] [address] Room Number: [id number] [employer] Reason for Call: Chest Pain, O2 Saturation below 90% [employer] Called By: RN - IV IV Inserted during [employer]?: No - Respiratory Oxygen Delivery Method: Nasal Cannula @L/min Oxygen Flow Rate: 3 Received Nebulizer Treatments:: No Was the Patient Ventilated with Bag/Mask 100% O2?: No Secretions Suctioned?: No Was the Patient Intubated?: No Was the Patient Placed on a Ventilator?: No - Diagnostic Test Ordered EKG: Yes Chest X-Ray: No CT Scan: No - Stat Labs Ordered [employer] Stat Labs Ordered: CBC, PT/PTT, TROPONIN [employer] Other Labs Ordered: cmp, mag, phos, CPR started during [employer]?: No - Vital Signs Vital Sign: Rapid Response Vital Sign Blood Pressure 90/55 Pulse Rate 112 Respiratory Rate 22 Temperature 99.4 F Oxygen Saturation 88 - Finger Stick Blood Glucose Finger Stick Blood Glucose: 96 - Sepsis Screen Part 1 Sepsis Screen Part 1: Hypotensive - Sepsis Screen Part 2 Sepsis Screen Part 2: WBC over 12,000 - Time [employer] Ended Time [employer] Ended: 17:29 - Vital Signs at end of [employer] Vital Signs at end of [employer]: Rapid Response End Vital Sign Blood Pressure 92/53 Pulse Rate 111 Respiratory Rate 24 Temperature 100.0 F O2 Sat by Pulse Oximetry 97 - Recommendations 5) [employer] Level of Care Recommendations: Remain in current setting Notifications: Attending Physician, Family or Designated Caregiver - Neurological Status (Select all that apply): Responsive, Verbal - Respiratory Oxygen Delivery Method: Nasal Cannula @L/min Oxygen Flow Rate: 3 - Constitutional Appears: Non-toxic, Chronically Ill - Head Head Exam: ATRAUMATIC, NORMAL INSPECTION, NORMOCEPHALIC - Eyes Eye Exam: EOMI, Normal appearance - Respiratory Exam Respiratory Exam: Chest Wall Tenderness, Clear to Ausculation Bilateral, NORMAL BREATHING PATTERN. absent: Accessory Muscle Use, Wheezes - Cardiovascular Exam Cardiovascular Exam: Tachycardia, REGULAR RHYTHM, +S1, +S2 - GI/Abdominal Exam GI & Abdominal Exam: Soft. absent: Tenderness - Neurological Exam Neurological Exam: Alert, Awake, CN II-XII Intact, Oriented x3 - Extremities Exam Extremities Exam: Full ROM, Normal Inspection. absent: Pedal Edema, Tenderness Plan - Assessment of Findings&Treatment Plan hold morphine until blood pressure stabilizes monitor vitals continue telemetry f/u cbc, cmp, cardiac ISO, mag, phos, ekg <Po Mcfarlane - Last Filed: 10/12/17 16:52> [employer] Nurse Assessment - Vital Signs Vital Sign: Rapid Response Vital Sign Blood Pressure 90/55 Pulse Rate 112 Respiratory Rate 22 Temperature 99.4 F Oxygen Saturation 88 - Vital Signs at end of [employer] Vital Signs at end of [employer]: Rapid Response End Vital Sign Blood Pressure 92/53 Pulse Rate 111 Respiratory Rate 24 Temperature 100.0 F O2 Sat by Pulse Oximetry 97 Attending/Attestation - Attestation I have personally seen and examined this patient.: Yes I have fully participated in the care of the patient.: Yes I have reviewed all pertinent clinical information, including history, physical exam and plan: Yes Notes (Text): 10/12/17 16:50 Medical record note made by the resident after discussion with my direction and input after the patient was personally seen and examined by me. I have reviewed the chart and agree that the record accurately reflects by personal performance of the history, physical exam, data review, and medical decision-making, in the course for the patient. I have also personally directed the plan of care. Patient was seen and examined in the rapid response. Chest pain is atypical , has chest wall tenderness. Patient blood pressure is soft, will hold antihypertensive medications and will avoid narcotic. EKG was reviewed We will get serial troponins. Patient is on 2 L Nasal canula , she has ESRD, will get Chest X ray.
[2017-10-11 17:47] LABS: HEMOGLOBIN 8.4 g/dL (12.0-16.0); MEAN CELL VOLUME 88.6 fl (80.0-105.0); MEAN CORPUSCULAR HEMOGLOBIN 27.5 pg (25.0-35.0); MEAN PLATELET VOLUME 9.4 fl (7.0-11.0); RBC 3.06 10^6/uL (3.5-6.1); RED CELL DISTRIBUTION WIDTH 17.9 % (11.5-14.5); WHITE BLOOD COUNT 13.4 10^3/ul (4.5-11.0)
[2017-10-11 17:56] LABS: PROTHROMBIN TIME 31.3 SECONDS (9.4-12.5)
[2017-10-11 17:57] LABS: INR 2.69 (0.93-1.08)
[2017-10-11 18:07] LABS: ALBUMIN 3.1 g/dL (3.0-4.8)
--- NOTE | 2017-10-11 18:08 | RAD ---
HISTORY: chest pain COMPARISON: 10/10/2017. FINDINGS: There is stable appearance of left subclavian stent with LUNGS: Again seen is severe pulmonary venous congestion and interstitial pulmonary edema. There is new left retrocardiac opacity. PLEURA: Suspect left pleural effusion, no pneumothorax apparent. CARDIOVASCULAR: Persistent moderate cardiomegaly. Atherosclerotic aortic arch calcifications are present. OSSEOUS STRUCTURES: No significant abnormalities. VISUALIZED UPPER ABDOMEN: Normal. OTHER FINDINGS: None. IMPRESSION: No change in moderate cardiomegaly and severe pulmonary venous congestion as well as interstitial pulmonary edema. Suspect left pleural effusion. Left retrocardiac opacity may represent atelectasis or developing pneumonia. Follow-up is advised.
--- NOTE | 2017-10-11 18:54 | CP.PCM.CON ---
<KinseyAlison - Last Filed: 10/11/17 19:19> History of Present Illness - History of Present Illness History of Present Illness: 57F with past medical history of ESRD on hemodialysis (last time was Monday, due for one today [place] [facility] [place] hypertension, COPD, chronic anemia, GERD, C. diff, chronic pancreatitis, and small brain aneurysm presenting from [facility] to the ED complaining of chest pain, nausea, vomiting, and dark stools x1 day. ICU was consulted for Hgb 6.5. Patient had dialysis in ED. Patient had two u PRBC yesterday 10/10, history of dark stools and vomiting which is also dark. She also endorses a decreased appetite. she is currently not complaining of chest pain, and states that it is worse when she breaths in deeply. Patient was hypotensive and tachycardic today. patient's hemoglobin is currently stable. Patient still complaining of chest pain Troponins are rising. Dr. Mccullough is on board. Patient is to have 2uPRBC with dialysis tomorrow 10/12. Past Medical History: as above Past Surgical History: cholecystectomy, pericardial window, b/l hip replacement Allergy: aspirin, ciprofloxacin, citrus, enalapril, heparin, latex, penicillin, sulfa, levothyroxine, acetominophen, codeine, enoxaparin, iodine Family History: unknown Social: smokes 1PPD for about 30 years, denies alcohol or illicit drug use Past Patient History - Infectious Disease Hx of Infectious Diseases: None - Tetanus Immunizations Tetanus Immunization: Up to Date - Past Medical History & Family History Past Medical History?: Yes - Past Social History Smoking Status: Current Some Days Smoker - CARDIAC Hx Cardiac Disorders: Yes Hx Congestive Heart Failure: Yes Hx Hypertension: Yes - PULMONARY Hx Chronic Obstructive Pulmonary Disease (COPD): Yes Other/Comment: pulmonary hypertention - NEUROLOGICAL Hx Neurological Disorder: No - HEENT Hx HEENT Problems: Yes Hx Blind: Yes (partial, left eye) - RENAL Hx Renal Failure: Yes (Hemodialysis (, ,Mon)-SHUNT LEFT UPPER ARM.) - ENDOCRINE/METABOLIC Hx Endocrine Disorders: Yes (parathyroid) - HEMATOLOGICAL/ONCOLOGICAL Hx Blood Disorders: Yes Hx Anemia: Yes - INTEGUMENTARY Hx Dermatological Problems: Yes (LEFT UPPER ARM SHUNT) Other/Comment: CALCIPHYLAXIS-DRY ROUND RASH ALL OVER HER BODY,ARMS,LEG. BILATERAL LEG EDEMA +3,SKIN TIGHTNESS,DISCOLORED DARK BROWN SKIN.TIGHT. - MUSCULOSKELETAL/RHEUMATOLOGICAL Hx Musculoskeletal Disorders: Yes Hx Falls: Yes Hx Unsteady Gait: Yes (CANE,ROLLING WALKER) - GASTROINTESTINAL Hx Gastrointestinal Disorders: Yes (GI BLEED,SBO,APPENDICITIS,INGRAM'S ESOPHAGUS) - GENITOURINARY/GYNECOLOGICAL Hx Genitourinary Disorders: Yes (OLIGURIA) - PSYCHIATRIC Hx Psychophysiologic Disorder: Yes (SMOKED CIGARETTES QUIT ) - SURGICAL HISTORY Hx Cholecystectomy: Yes Hx Orthopedic Surgery: Yes (bilateral hips) Other/Comment: left arm fistula , c-sectionx2, tonsilectomy - ANESTHESIA Hx Anesthesia Reactions: No Hx Malignant Hyperthermia: No Meds Allergies/Adverse Reactions: Allergies Allergy/AdvReac Type Severity Reaction Status Date / Time aspirin Allergy Severe ANAPHYLAXIS Verified 09/29/17 23:18 ciprofloxacin Allergy Severe ANAPHYLAXIS Verified 10/10/17 09:52 Jessie And Derivatives Allergy Severe ANAPHYLAXIS Verified 10/10/17 09:52 enalapril Allergy Severe HIVES Verified 10/10/17 09:52 heparin Allergy Severe ANAPHYLAXIS Verified 10/10/17 09:52 latex Allergy Severe ANAPHYLAXIS Verified 10/10/17 09:52 Penicillins Allergy Severe ANAPHYLAXIS Verified 10/10/17 09:52 Sulfa (Sulfonamide Allergy Severe ANAPHYLAXIS Verified 10/10/17 09:52 Antibiotics) levothyroxine sodium Allergy Intermediate RASH Verified 10/10/17 09:52 [From Levoxyl] acetaminophen Allergy Mild RASH Verified 10/10/17 09:52 codeine Allergy Mild RASH Verified 10/10/17 09:52 enoxaparin Allergy Mild RASH Verified 10/10/17 09:52 iodine Allergy Mild RASH Verified 10/10/17 09:52 influenza virus vaccine, Allergy hives Verified 10/10/17 09:52 specific - Medications Medications: Current Medications Hydralazine HCl (Apresoline) 10 mg PO QID PRN PRN Reason: for SBP>170 Pantoprazole Sodium (Protonix 40mg Ivpb) 40 mg in 100 mls @ 20 mls/hr IVPB .Q5H [facility] Last Admin: 10/11/17 11:28 Dose: 20 mls/hr Dextrose/Sodium Chloride (Dextrose 5%/0.45% Ns 1000 Ml) 1,000 mls @ 40 mls/hr IV .Q24H [facility] Last Admin: 10/10/17 20:30 Dose: 40 mls/hr Levalbuterol HCl (Xopenex) 1.25 mg IH [id number] [facility] Last Admin: 10/11/17 13:34 Dose: 1.25 mg Metoprolol Succinate (Toprol Xl) 25 mg PO DAILY [facility] Last Admin: 10/11/17 10:11 Dose: 25 mg Ondansetron HCl (Zofran Inj) 4 mg IVP Q4H PRN PRN Reason: Nausea/Vomiting Last Admin: 10/11/17 11:56 Dose: 4 mg Ramipril (Altace) 5 mg PO DAILY [facility] Last Admin: 10/11/17 11:28 Dose: 5 mg Physical Exam - Constitutional Appears: In Acute Distress, Chronically Ill - Head Exam Head Exam: NORMAL INSPECTION, NORMOCEPHALIC - Eye Exam Eye Exam: EOMI, Normal appearance - ENT Exam ENT Exam: Mucous Membranes Dry - Respiratory Exam Respiratory Exam: Chest Wall Tenderness, NORMAL BREATHING PATTERN. absent: Accessory Muscle Use - Cardiovascular Exam Cardiovascular Exam: Tachycardia, REGULAR RHYTHM, +S1, +S2 - GI/Abdominal Exam GI & Abdominal Exam: Soft. absent: Tenderness - Extremities Exam Extremities exam: Positive for: full ROM. Negative for: pedal edema, tenderness - Neurological Exam Neurological exam: CN II-XII Intact, Oriented x3 - Psychiatric Exam Psychiatric exam: Normal Affect, Normal Mood - Skin Skin Exam: Dry, Intact, Normal Color, Warm Results - Vital Signs Recent Vital Signs: Last Vital Signs Temp 99.4 F 10/11/17 18:00 Pulse 117 H 10/11/17 18:00 Resp 20 10/11/17 18:00 BP 90/55 L 10/11/17 18:00 Pulse Ox 93 L 10/11/17 06:00 - Labs Result Diagrams: 10/11/17 17:40 10/11/17 17:40 Labs: Laboratory Results - last 24 hr 10/10/17 10/10/17 10/11/17 19:03 19:03 07:00 WBC 12.2 H D 12.5 H RBC 3.15 L 2.91 L Hgb 8.8 L D 8.0 L Hct 27.3 L 25.3 L MCV 86.7 86.9 MCH 27.9 27.5 MCHC 32.2 31.6 RDW 17.1 H 17.5 H Plt Count 122 113 L MPV 8.8 8.9 PT 25.2 H INR 2.18 H APTT 60.4 H Sodium Potassium Chloride Carbon Dioxide Anion Gap BUN Creatinine Est GFR ( Amer) Est GFR (Non-Af Amer) Random Glucose Calcium Phosphorus Magnesium Total Bilirubin AST ALT Alkaline Phosphatase Troponin I Total Protein Albumin Globulin Albumin/Globulin Ratio 10/11/17 10/11/17 10/11/17 13:10 17:40 17:40 WBC 13.4 H RBC 3.06 L Hgb 9.0 L 8.4 L Hct 28.8 L 27.1 L MCV 88.6 MCH 27.5 MCHC 31.0 RDW 17.9 H Plt Count 136 MPV 9.4 PT 31.3 H INR 2.69 H APTT Sodium Potassium Chloride Carbon Dioxide Anion Gap BUN Creatinine Est GFR ( Amer) Est GFR (Non-Af Amer) Random Glucose Calcium Phosphorus Magnesium Total Bilirubin AST ALT Alkaline Phosphatase Troponin I Total Protein Albumin Globulin Albumin/Globulin Ratio 10/11/17 17:40 WBC RBC Hgb Hct MCV MCH MCHC RDW Plt Count MPV PT INR APTT Sodium 142 Potassium 4.2 Chloride 100 Carbon Dioxide 22 Anion Gap 24 H BUN 45 H Creatinine 4.9 H Est GFR ( Amer) 11 Est GFR (Non-Af Amer) 9 Random Glucose 114 H Calcium 9.0 Phosphorus 4.4 Magnesium 2.1 Total Bilirubin 5.4 H AST 83 H ALT 30 Alkaline Phosphatase 659 H Troponin I 0.56 H* D Total Protein 6.1 Albumin 3.1 Globulin 3.0 Albumin/Globulin Ratio 1.0 L Assessment & Plan - Assessment and Plan (Free Text) Assessment: 57 year old female with past medical history of ESRD on hemodialysis (last time was Monday, due for one today [place] [facility] [place] hypertension, COPD, chronic anemia, GERD , C. diff, chronic pancreatitis, and small brain aneurysm presenting from [facility] to the ED complaining of chest pain, nausea, vomiting, and dark stools x1 day. Noted to be anemic in ED, as on prior admissions. She is currently hemodynamically stable, and in no acute respiratory distress. Dr. Cervantes gave nurse his number. no current need for ICU admission at this time. Patient is comfortable in bed. Please consult again if patient's vitals change. Alison Euceda DO PGY1 - Date & Time Date: 10/11/17 Time: 18:56 <Nik Cervantes MD - Last Filed: 10/12/17 06:11> Meds - Medications Medications: Current Medications Hydralazine HCl (Apresoline) 10 mg PO QID PRN PRN Reason: for SBP>170 Pantoprazole Sodium (Protonix 40mg Ivpb) 40 mg in 100 mls @ 20 mls/hr IVPB .Q5H [facility] Last Admin: 10/12/17 04:01 Dose: 20 mls/hr Dextrose/Sodium Chloride (Dextrose 5%/0.45% Ns 1000 Ml) 1,000 mls @ 40 mls/hr IV .Q24H [facility] Last Admin: 10/12/17 00:51 Dose: 40 mls/hr Levalbuterol HCl (Xopenex) 1.25 mg IH [id number] [facility] Last Admin: 10/12/17 01:36 Dose: 1.25 mg Metoprolol Succinate (Toprol Xl) 25 mg PO DAILY [facility] Last Admin: 10/11/17 10:11 Dose: 25 mg Ondansetron HCl (Zofran Inj) 4 mg IVP Q4H PRN PRN Reason: Nausea/Vomiting Last Admin: 10/11/17 11:56 Dose: 4 mg Ramipril (Altace) 5 mg PO DAILY [facility] Last Admin: 10/11/17 11:28 Dose: 5 mg Results - Vital Signs Recent Vital Signs: Last Vital Signs Temp 98.1 F 10/12/17 00:01 Pulse 102 H 10/12/17 02:00 Resp 20 10/12/17 00:01 BP 101/62 10/12/17 00:01 Pulse Ox 98 10/12/17 00:01 - Labs Result Diagrams: 10/11/17 17:40 10/11/17 17:40 Labs: Laboratory Results - last 24 hr 10/11/17 10/11/17 10/11/17 07:00 13:10 17:40 WBC 12.5 H 13.4 H RBC 2.91 L 3.06 L Hgb 8.0 L 9.0 L 8.4 L Hct 25.3 L 28.8 L 27.1 L MCV 86.9 88.6 MCH 27.5 27.5 MCHC 31.6 31.0 RDW 17.5 H 17.9 H Plt Count 113 L 136 MPV 8.9 9.4 PT INR Sodium Potassium Chloride Carbon Dioxide Anion Gap BUN Creatinine Est GFR ( Amer) Est GFR (Non-Af Amer) Random Glucose Calcium Phosphorus Magnesium Total Bilirubin AST ALT Alkaline Phosphatase Troponin I Total Protein Albumin Globulin Albumin/Globulin Ratio 10/11/17 10/11/17 17:40 17:40 WBC RBC Hgb Hct MCV MCH MCHC RDW Plt Count MPV PT 31.3 H INR 2.69 H Sodium 142 Potassium 4.2 Chloride 100 Carbon Dioxide 22 Anion Gap 24 H BUN 45 H Creatinine 4.9 H Est GFR ( Amer) 11 Est GFR (Non-Af Amer) 9 Random Glucose 114 H Calcium 9.0 Phosphorus 4.4 Magnesium 2.1 Total Bilirubin 5.4 H AST 83 H ALT 30 Alkaline Phosphatase 659 H Troponin I 0.55 H* D Total Protein 6.1 Albumin 3.1 Globulin 3.0 Albumin/Globulin Ratio 1.0 L Attending/Attestation - Attestation I have personally seen and examined this patient.: Yes I have fully participated in the care of the patient.: Yes I have reviewed all pertinent clinical information: Yes Notes (Text): -I agree with the above ICU consult note completed by the resident physician. Because the patient is hemodynamically stable with O2 sats>95% on 2-3L NC, and in no acute distress, she doesn't require ICU level of care at this time. If her condition deteriorates, please feel free to re-consult. Thanks.
[2017-10-11 19:05] LABS: TROPONIN I 0.55 ng/mL
--- NOTE | 2017-10-11 19:38 | CON ---
DATE: 10/11/2017 CONSULTING PHYSICIAN: oP Mccullough M.D. REASON FOR CONSULTATION: Positive troponin, chest pain. Admitted with rectal bleed and severe anemia. 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 So, Cardiology consult was called because of chest pain and troponin positive, maximum troponin was 0.21. Patient complained of chest pain, but start from the epigastrium and very tender, radiating to the chest. Denies any prior episode of chest pain, shortness of breath or any palpitation. History of rectal bleed and anemia. PAST MEDICAL HISTORY: Significant for cardiac catheterization dated 06/26/2017; normal coronary, upper limit normal, right heart pressure; history of end-stage renal disease, on dialysis; history of pericardial effusion, large, status post pericardial window in the past; history of cholecystectomy. History of GI bleed in the past, also; history of black-tarry stool in the past, now admitted with the rectal bleed. PAST SURGICAL HISTORY: Significant for history of cholecystectomy, right hip surgery and history of AV shunt. SOCIAL HISTORY: Smokes half-a-pack a day. Denies any history of alcohol abuse. Denies any history of substance abuse. RECENT CARDIAC WORKUP: As follows: The patient had a cardiac catheterization on 06/26/2017 repeat. This is a second cardiac catheterization that showed normal coronaries, upper limit normal, right heart pressure as follows RA 5/6, right ventricular pressure 34/8; pulmonary pressure 38/10; mean PA 15; pulmonary capillary wedge pressure 10, PVR, pulmonary vascular 0.5 Wood unit; cardiac output index as follows; cardiac output 10.3 litter, cardiac index 6.26 liter; hepatic vein wedge pressure 5 mmHg; hepatic wedge is 8 mmHg; hepatic vein 5 mm; hepatic wedge 8 mm. It was done because it was suggested by GI people that the patient has a severe pulmonary hypertension as well as cirrhosis and severe portal hypertension, which is not the case, we did not find. At that time, found the nonischemic cardiomyopathy ejection fraction 40 to 45%. No evidence of pulmonary hypertension; no evidence of portal hypertension by cath dated 06/2017 by cath, though the patient was on Primacor before because noninvasive pressure shows 79 mmHg, which is consistent with a severe pulmonary hypertension, but during the cath after treated with Primacor, pulmonary hypertension significantly improved. Prior to the cardiac catheterization, patient was treated with IV Primacor, so it significantly decreased in pulmonary hypertension. The most recent echo shows RV systolic pressure at 79 at that time prior to cath. The repeat echo after being treated with Primacor dated 06/27/2017, moderate pulmonary hypertension, right ventricular systolic pressure of 60. The conclusion study showed the patient had moderate pulmonary hypertension, right heart cath was done a day before that shows upper limit normal, PA pressure, but the patient was on Primacor at that time. So, after discontinuing the Primacor, the patient's pulmonary hypertension increased and shows that the patient is sensitive to Primacor treatment and is reactive. REVIEW OF THE SYSTEMS: As per HPI. PHYSICAL EXAMINATION: VITAL SIGNS: Temperature afebrile, heart rate 80, blood pressure 120/80. HEENT: PERRLA. Extraocular muscles intact. NECK: Supple. No carotid bruit or thyromegaly. CHEST: Clear to auscultation. HEART: S1 and S2 regular. ABDOMEN: Soft. EXTREMITIES: Clubbing and cyanosis negative. LABORATORY DATA: Blood workup as follows: Hemoglobin on admission was 6.5, repeat hemoglobin after 2 units of blood is 8. Patient has significant tenderness in epigastrium. The rest of the blood workup as follows: WBC 12.5, hemoglobin 8, hematocrit 25.3, and platelet count 113. Chemistry shows sodium 130, potassium 4.7, chloride 100, carbon dioxide 26, anion gap of 16, BUN 77, and creatinine 6.2. Troponin is 0.21. IMPRESSION: This borderline troponin, most likely secondary to end-stage renal disease and also has the patient severe anemic. On admission, hemoglobin was 6.5. Patient had a cardiac catheterization in 06/2017, essentially normal coronaries, preserved and mildly decreased ejection fraction 45%. Patient also has pulmonary hypertension on Primacor. After being treated with Primacor, the pulmonary hypertension significantly improved. Previous to the treatment, the patient had right ventricular systolic pressure echo 79, but during the cath, pulmonary pressure went down on Primacor, so the patient is reactive and sensitive to the Primacor. RECOMMENDATION: Continue packed RBC. Discussed with Dr. Gomez. We will give 2 units of blood during the dialysis tomorrow. Today, hemoglobin after 2 years is 8. Yesterday, post-transfusion was 8.8 and they dropped further 8 and no further cardiac workup is planned at this time. The patient is cleared from Cardiology point of view to go for endoscopy, colonoscopy, if needed. We will follow with you. In the interim, continue atorvastatin, continue a low-dose beta-edith and we will continue hydralazine p.r.n. We will follow with you. Thank you, Dr. Gomez, for providing us the opportunity in taking care of the patient, Jacqui Kraus. Po Mccullough MD cc: Shawn Gomez MD
[2017-10-12] MEDS: Dextrose 5%/0.45% NS 1,000 ML IV SCH ×3 (00:51→22:39)
[2017-10-12] MEDS: Levalbuterol 1.25 MG/3 ML Inhal Soln UD IH SCH ×4 (01:36→19:17)
[2017-10-12] MEDS: Pantoprazole 40mg/100mL NS 40 MG/100 ML BAG IVPB SCH ×6 (03:57→20:52)
--- NOTE | 2017-10-12 08:53 | CON ---
DATE: 10/11/2017 This patient was seen and evaluated earlier today. REASON FOR CONSULTATION: Anemia, history of gastrointestinal bleeding. HISTORY OF PRESENT ILLNESS: This is a 57-year-old patient with a past medical history of end-stage renal disease, on hemodialysis; history of GI bleeding in the past, admitted with weakness and some chest discomfort. Patient had two episodes of vomiting. Some upper abdominal discomfort noticed, she noticed dark stool, had an episode of small amount of blood in the vomitus. Patient has a history of massive GI bleeding before and she had multiple units of transfusion. Patient was found to have prominent veins in the fundus, for which clipping was done to control the bleeding. Patient also was found to have increased history of pulmonary hypertension with right-sided hepatic congestion. Other past medical history, the patient had endoscopies and colonoscopies done before. Patient recently had a hip surgery done, started on Eliquis. Other past medical history as above. Status post cholecystectomy, history of pericardial window, bilateral hip replacement. ALLERGIES: SHE HAS MULTIPLE ALLERGIES INCLUDING ALLERGY TO CIPRO, CITRUS, ENALAPRIL, AND HEPARIN. FAMILY HISTORY: Noncontributory. SOCIAL HISTORY: Still smokes about one pack per day, more than 30 years. Denies alcohol use. REVIEW OF SYSTEMS: Positive as above. PHYSICAL EXAMINATION GENERAL: Patient is lying in the bed. Not in acute distress. VITAL SIGNS: Temperature is 98.7, pulse 113, blood pressure is 157/81, respirations 18. HEENT: Atraumatic, anicteric. NECK: Supple. HEART: S1 and S2 heard. LUNGS: Bilateral air entry present. ABDOMEN: Soft. There is tenderness present in the right upper quadrant area. EXTREMITIES: No cyanosis, no clubbing. NEUROLOGICAL: Alert, oriented, moves all the extremities. LABORATORY DATA: Hemoglobin is 6.5, hematocrit 21.1, WBC 7.0, platelets 147,000. Chemistry essentially shows BNP is over 350,000. IMPRESSION AND PLAN: This is a 57-year-old patient is admitted with melena and weakness. History of massive gastrointestinal bleeding in the past. Patient also has a history of portal hypertension and pulmonary hypertension. Patient was [facility] to [facility] for [facility] work[facility], patient did not follow up through on that. Patient also was found to have increased chromogranin A level. Present concern is anemia, history of bleeding. Patient had surgery done for the hip replacement, for DVT prophylaxis Pradaxa was started. I Would recommend 1. followup with hemoglobin, hematocrit, transfuse; 2. patient may benefit from endoscopic evaluation after further optimization. 3. Consider early emergent endoscopy when effect of Pradaxa wears off Other option is if hemodynamically stable, wait for 48 hours. We will continue to closely follow up her care and suggest further management based on the clinical course. Jesus Manuel Rosado MD [facility]
[2017-10-12 10:18] LABS: BASO # 0.07 K/mm3 (0.0-2.0); BASO % 0.6 % (0.0-3.0); EOS # 0.2 (0.0-0.7); EOS % 1.4 % (1.5-5.0); GRAN # 8.83 (1.4-6.5); GRAN % 70.6 % (50.0-68.0); HEMOGLOBIN 7.5 g/dL (12.0-16.0); LYMPH # 0.9 (1.2-3.4); LYMPH % 6.9 % (22.0-35.0); MEAN CELL VOLUME 86.3 fl (80.0-105.0); MEAN CORPUSCULAR HEMOGLOBIN 27.8 pg (25.0-35.0); MEAN CORPUSCULAR HGB CONC 32.2 g/dl (31.0-37.0); MEAN PLATELET VOLUME 9.5 fl (7.0-11.0); MONO # 2.6 (0.1-0.6); MONO % 20.5 % (1.0-6.0); PLATELET COUNT 113 10^3/uL (120.0-450.0); RED CELL DISTRIBUTION WIDTH 17.8 % (11.5-14.5); WHITE BLOOD COUNT 12.5 10^3/ul (4.5-11.0)
[2017-10-12 10:30] LABS: ALB/GLOB RATIO 0.9 (1.1-1.8); ALBUMIN 2.7 g/dL (3.0-4.8); ALT/SGPT 37 U/L (7-56); AST/SGOT 66 U/L (14-36); BLOOD UREA NITROGEN 57 mg/dL (7-21); CALCIUM 8.3 mg/dL (8.4-10.5); GFR AFRICAN-AMERICAN 10; GFR NON-AFRICAN AMERICAN 8; HDL CHOLESTEROL 27 mg/dL (29-60)
--- NOTE | 2017-10-12 10:37 | PQF AMI ---
This form is a permanent part of the medical record Dr. Mccullough, Patient initially admitted with c/o chest pain along with severe anemia from likely GI bleeding. Labs showed a troponin of 0.21, increasing to 0.55 after episode of hypotension , tachycardia, CP. Your consult notes that this borderline troponin elevation most likely secondary to ESRD and severe anemia. Please clarify if NSTEMI occurred, was ruled out, undetermined. Also please specify severity of CHF (preserved LVF with EF 45%). Clarification of your documentation is requested to better reflect the severity of illness and intensity of treatment of your patient. Indicators present [] Diagnosis of HI without specification of time frame (within 28 days of admission of greater than 28 days prior to admission) [] Diagnosis of subsequent HI (time frame of previous HI within 28 days of admission or greater than 28 days of admission) [] Diagnosis of HI w/o specified site [x] EKG positive for changes (i.e.; ST elevation, non-ST elevation, Q-wave changes, etc.) [x] Elevated Troponins [x] Elevated Cardiac Enzymes [] Cardiac consult documentation of [x] Chest pain/ACS/Unstable Angina [] Echo findings of [] Other: [] Location in the medical record that reflects the above clinical findings:[] Other Treatment Provided:[] PHYSICIAN'S RESPONSE Based on your medical judgment of the clinical indicators outlined above, are you treating this patient for a known or suspected: [ ] NSTEMI [ ] STEMI Site: [ ] [ ] ACS/Unstable Angina [ ] Angina :[ ] [x ] Other, please indicate [x ]__No EVIDENCE of HI, positive troponin b/c of renal insuffciency and anemia_ If Unable to Determine, please check the box, sign and date Present On Admission (POA) Indicator: [x ] Present at the time of admission [ ] Not present at the time of admission [ ] Clinically Undetermined * If you have any questions please call:[ ] * Thank you, [ ]Debbie Ibrahim [facility] #[id number] event planning manager In responding to this query, please exercise your independent professional judgment. The fact that a question is asked does not imply that any particular answer is desired or expected. Thank you for your clarification on this documentation. [facility]
[2017-10-12 10:45] LABS: LDL CHOLESTEROL < 30 mg/dL (0-129)
[2017-10-12 11:19] LABS: EOSINOPHIL 2 % (0.0-3.0); LYMPHOCYTE 10 % (22.0-35.0); MONOCYTE 20 % (1.0-6.0); NEUTROPHIL 68 % (50.0-70.0)
[2017-10-12 11:21] LABS: ANISOCYTOSIS SLIGHT; HYPOCHROMIA SLIGHT; LARGE PLATELETS PRESENT; POIKILOCYTOSIS SLIGHT
[2017-10-12 11:23] LABS: NUCLEATED RED BLOOD CELL 2 %
[2017-10-12] MEDS ORDERED: Nitroglycerin 2% Ointment Foilpak UD TOP STA (11:41)
--- NOTE | 2017-10-12 13:24 | PN ---
DATE: SUBJECTIVE: The patient is currently seen in dialysis. She was receiving her first unit of packed red blood cells. Her hemoglobin had dropped to 7.5 from 9.0. She denies having any further GI bleeding. She states she has not had any bowel movements in the last 12-24 hours. She is being evaluated by GI for possible endoscopy. It is felt that she has had upper GI bleed. Her chronic anticoagulation is on hold. MEDICATIONS: Medication list reviewed. The patient is currently on Altace, Apresoline, D5 half-normal saline 40 mL an hour, IV Protonix, metoprolol, Xopenex and Zofran p.r.n. OBJECTIVE: INTAKE/OUTPUT: Intake 720, output zero. VITAL SIGNS: Blood pressure is 111/56, temperature 98.6, respiratory rate 80 with a pulse of 74. HEENT: Shows her to be normocephalic, atraumatic. Conjunctivae are pale. Sclerae are icteric. NECK: Supple. No neck vein distention. CHEST: Clear to auscultation and percussion. No rales, rhonchi or wheezing noted. CARDIOVASCULAR: Shows a regular rate and rhythm with a soft systolic murmur, left lower sternal border. No S3. No S4. No rub. ABDOMEN: Soft. Bowel sounds are normal. No tenderness on palpation. No rebound or guarding. No distention. No masses appreciated. EXTREMITIES: Show trace nonpitting edema of her lower extremity. The cellulitis of her left lower extremity appears to have resolved. She has a dressing over her right upper lateral thigh area in the area of her total hip replacement surgery. There is no apparent erythema. No drainage into the dressing and no bleeding. LABORATORY DATA AND IMAGING: CBC today: White blood cell count is 12.5, hemoglobin is down to 7.5. Platelet count is 113,000. Coags: PT of 31.3 yesterday with an INR of 2.69. Chemistry showed normal electrolytes. BUN 57 with a creatinine of 5.3. Glucose is 119. Calcium 8.3. Phosphorus is controlled at 3.1. Magnesium is 1.9. Bilirubin 3.6. Mild elevation of her liver enzymes. Troponins remained mildly elevated. Albumin is 2.7. Microbiology: Blood cultures are negative at 24 hours. Urine cultures are negative. ASSESSMENT: 1. Severe anemia in the setting of guaiac positive stools and melena. Likely an upper gastrointestinal bleed. The patient also had an episode of epistaxis. The patient has been seen by Gastroenterology and will likely undergo an endoscopy. She will continue on protein pump inhibition therapy. We will continue to transfuse her on dialysis to keep her hemoglobin in the 9-10 range. 2. History of end-stage renal disease. The patient will continue routine Monday, , Monday dialysis. No heparin. 3. History of hypertension. Blood pressure controlled on present medical therapy. 4. History of pulmonary hypertension with chronic obstructive pulmonary disease secondary to long history of cigarette smoking. The patient will continue on inhalation therapy. 5. History of gastroesophageal reflux disease. The patient is continuing PPI therapy. 6. History of secondary hyperparathyroidism. Phosphorus levels are excellent. The patient will continue vitamin D on dialysis as per protocol. Once the patient starts oral intake, the patient could restart binder therapy. 7. History of severe anemia. Transfuse as noted above. Maximize Aranesp dose on dialysis. 8. Status post left lower extremity cellulitis. This was treated and resolved. 9. Status post total right hip replacement surgery. This appears to be stable. No evidence for infection. 10. History of atypical chest pain with elevated troponin. The patient is being evaluated by Cardiology. Perhaps questionable [id number] myocardial infarction versus elevated troponin secondary to end-stage renal disease. PLAN: 1. Continued Monday, , Monday dialysis. No heparin. 2. Continue to transfuse the patient on dialysis to keep the hemoglobin in the 9-10 range. 3. Continue IV PPI therapy. 4. Continue GI evaluation in light of her upper GI bleeding. 5. Cardiology followup appreciated. Deon Mathews MD
[2017-10-12] MEDS: Metoprolol Succinate 25 mg XL Tab PO SCH ×2 (14:45→14:51)
--- NOTE | 2017-10-12 15:43 | PN ---
DATE: 10/12/2017 LOCATION: The patient in room 378, bed 2. REASON FOR CONSULTATION AND FOLLOWUP: Positive troponin; chest pain; rectal bleeding; severe anemia, status post blood transfusion; renal failure, on dialysis. SUBJECTIVE: The patient was admitted with epigastric pain, found to have a hemoglobin of 6.5 and borderline positive troponin. Patient now having dialysis. Denies any chest pain or abdominal pain or shortness of breath or palpitation. Patient lying flat in bed. Patient received blood transfusions low hemoglobin and hematocrit. Cardiac cath, 06/26/2017, normal coronaries, upper limit of normal right heart pressures. Patient admitted with rectal bleeding also. PHYSICAL EXAMINATION: VITAL SIGNS: Blood pressure 123/56, respirations 18, pulse 71, temperature 98.1. HEENT: Head is normocephalic. Eyes: Pupils normal. Conjunctivae pale. NECK: JVP low. Carotid equal. THORAX: AP diameter normal. LUNGS: Few rales on the right base. CARDIOVASCULAR: S1, S2. ABDOMEN: Soft. No tenderness, no organomegaly. Bowel sounds normal. EXTREMITIES: No clubbing, no cyanosis. LABORATORY DATA: WBC 12.5, hemoglobin 7.5, hematocrit 23.3, platelet 113. Sodium 138, potassium 3.8, BUN 57, creatinine 5.3, calcium 8.3, phosphorus 3.1, magnesium 1.9, first troponin 0.21, second troponin 0.55, total protein 5.6, albumin 2.7. DIAGNOSES: Borderline troponin, most likely secondary to end-stage renal failure. Also patient has severe anemia, which also can cause slight elevation in troponin, her blood count being so low. On catheterization, 06/2017, normal coronaries, mildly diffuse left ventricular ejection fraction of 45%, upper limit of right heart pressures. Patient also has pulmonary hypertension, on Primacor. After being treated with Primacor, the pulmonary hypertension significantly improved. Before the treatment, right ventricular systolic pressure on echo was 79, but during the cath, , right ventricular pressure was 34/8, pulmonary pressure 38/10 and mean pulmonary artery pressure of 15, pulmonary capillary blood pressure was 10; renal failure, on dialysis. PLAN: We will give blood transfusion again today to the patient and from cardiac point of view, patient can go any GI procedures including endoscopy or colonoscopy. Patient's chest x-ray showed some congestion changes, so patient having dialysis will help that. Patient on metoprolol succinate 25 mg daily, ramipril 5 mg daily. We will follow with you. Po Bradford MD
--- NOTE | 2017-10-12 17:46 | PN ---
DATE: SUBJECTIVE: The patient is a 57 years old, seen and examined in dialysis, doing well. No nausea or vomiting. No diarrhea. PHYSICAL EXAMINATION: VITAL SIGNS: Patient is afebrile, pulse 50, respirations 18, blood pressure 122/63. LUNGS: Bilateral diffusely decreasing breath sounds. HEART: S1, S2, audible. ABDOMEN: Soft, nontender. No rebound. Has epigastric discomfort. NEUROLOGIC: Patient is awake and alert, communicative. LABORATORY DATA: WBC is 12.5, hemoglobin 7.5, hematocrit 23.3 and platelets of 113. Chemistry: Sodium 138, potassium 3.8, chloride 100, CO2 of 30, BUN 57, creatinine 5.3, blood sugar of 119, alk phos is 540. Blood cultures and urine cultures are negative. ASSESSMENT: 1. Gastrointestinal bleed. 2. Chest pain, probably the referred pain because of gastritis. 3. End-stage renal disease, on hemodialysis. 4. Chronic obstructive pulmonary disease. 5. Pulmonary hypertension. PLAN: Currently patient is doing well. At present, she is on dextrose IV fluids. She is on Protonix drip. She is on metoprolol and nebulizer treatment. Currently, she is n.p.o. She will receive two blood transfusions during dialysis. We will follow up H and H in a.m. Shawn Gomez MD
--- NOTE | 2017-10-12 17:56 | CARD ---
APPROVED REPORT EKG Measurement Heart [id number] <Conclusion> Sinus tachycardia Voltage criteria for left ventricular hypertrophy ST & T wave abnormality, consider lateral ischemia Abnormal ECG
[2017-10-13] MEDS: Levalbuterol 1.25 MG/3 ML Inhal Soln UD IH SCH ×4 (01:20→22:21)
[2017-10-13] MEDS: Pantoprazole 40mg/100mL NS 40 MG/100 ML BAG IVPB SCH ×3 (02:25→10:19)
--- NOTE | 2017-10-13 06:24 | PN ---
DATE: 10/12/2017 SUBJECTIVE: This patient was seen and evaluated earlier today. Patient did have dialysis, had a transfusion during the dialysis. No further episodes of vomiting. She does have complaints of same abdominal discomfort, but less. Tolerating the diet. PHYSICAL EXAMINATION: VITAL SIGNS: Temperature is 98.9, blood pressure is 140/66, respirations 19, pulse is 83. HEENT: Atraumatic and anicteric. NECK: Supple. HEART: S1 and S2 heard. LUNGS: Bilateral air entry present, slightly reduced at the base. ABDOMEN: Soft. There is mild tenderness present in the right upper quadrant, chronic. EXTREMITIES: No cyanosis. No clubbing. NEUROLOGIC: Alert, oriented. LABORATORY DATA: Hemoglobin 7.5, hematocrit 23.3, WBC 12.5, platelets 113. Chemistry shows BUN 53, creatinine 5.3. IMPRESSION: This is a 57-year-old patient admitted with melena, weakness. Patient has a history of massive bleeding recently with multiple transfusions given. Patient was found to have Dieulafoy's type of lesions, which was controlled with clipping was done. Endoscopically, the appearance of the stomach and the fundus area specifically, appears like portal gastropathy. Patient did have right and left heart catheterization. Patient did have hemodialysis today, did have a transfusion during hemodialysis. History of hip surgery. Patient was on Pradaxa before, which has been on hold for more than 3 days, and other comorbidities include coronary artery disease. We will continue to closely followup. Other comorbidities include chronic obstructive pulmonary disease. Patient still smokes, history of pulmonary hypertension, and patient does have an elevated chromogranin A levels also. PLAN Patient was scheduled for an upper GI endoscopy to further evaluate. Thank you very much for allowing us to participate in the care of the patient. Jesus Manuel Rosado MD [facility]
[2017-10-13 07:55] LABS: HEMOGLOBIN 9.1 g/dL (12.0-16.0); MEAN CELL VOLUME 87.3 fl (80.0-105.0); MEAN CORPUSCULAR HEMOGLOBIN 27.4 pg (25.0-35.0); MEAN CORPUSCULAR HGB CONC 31.4 g/dl (31.0-37.0); MEAN PLATELET VOLUME 9.3 fl (7.0-11.0); RBC 3.32 10^6/uL (3.5-6.1); RED CELL DISTRIBUTION WIDTH 18.1 % (11.5-14.5); WHITE BLOOD COUNT 13.1 10^3/ul (4.5-11.0)
[2017-10-13] MEDS: Metoprolol Succinate 25 mg XL Tab PO SCH (09:25)
--- NOTE | 2017-10-13 09:37 | CP.PCM.PN ---
Subjective - Date & Time of Evaluation Date of Evaluation: 10/13/17 Time of Evaluation: 08:20 - Subjective Subjective: Seen and examined by me and Dr. Bradford Reason for consultation and follow up: admitted for epigastric pain and found to have low hemoglobin- 6.5, anemia, positive troponin, end stage renal disease on hemodialysis, COPD, pulmonary hypertension, positive smoker, Objective - Vital Signs/Intake and Output Vital Signs (last 24 hours): Temp Pulse Resp BP Pulse Ox 99.2 F 77 18 137/66 97 10/13/17 05:55 10/13/17 09:25 10/13/17 05:55 10/13/17 09:25 10/13/17 05:55 Intake and Output: 10/13/17 10/13/17 06:59 18:59 Intake Total 720 Balance 720 - Medications Medications: Current Medications Hydralazine HCl (Apresoline) 10 mg PO QID PRN PRN Reason: for SBP>170 Pantoprazole Sodium (Protonix 40mg Ivpb) 40 mg in 100 mls @ 20 mls/hr IVPB .Q5H [facility] Last Admin: 10/13/17 06:16 Dose: 20 mls/hr Dextrose/Sodium Chloride (Dextrose 5%/0.45% Ns 1000 Ml) 1,000 mls @ 40 mls/hr IV .Q24H [facility] Last Admin: 10/12/17 22:39 Dose: 40 mls/hr Levalbuterol HCl (Xopenex) 1.25 mg IH [id number] [facility] Last Admin: 10/13/17 07:37 Dose: 1.25 mg Metoprolol Succinate (Toprol Xl) 25 mg PO DAILY [facility] Last Admin: 10/13/17 09:25 Dose: 25 mg Ondansetron HCl (Zofran Inj) 4 mg IVP Q4H PRN PRN Reason: Nausea/Vomiting Last Admin: 10/11/17 11:56 Dose: 4 mg Ramipril (Altace) 5 mg PO DAILY [facility] Last Admin: 10/13/17 09:24 Dose: 5 mg - Labs Labs: 10/13/17 07:15 10/12/17 10:00 PT 31.3 SECONDS (9.4-12.5) H 10/11/17 17:40 INR 2.69 (0.93-1.08) H 10/11/17 17:40 APTT 60.4 Seconds (25.1-36.5) H 10/10/17 19:03
--- NOTE | 2017-10-13 10:26 | PN ---
DATE: 10/13/2017 REASON FOR CONSULTATION AND FOLLOWUP: Positive troponin, chest pain, rectal bleeding, severe anemia, status post blood transfusion, renal failure, on dialysis. SUBJECTIVE: The patient is lying flat in bed without any shortness of breath or palpitation. The patient states that she has some cough and she states sometimes when she coughs, she has a slight pain in the chest. Denies nausea or vomiting. The patient is lying flat in bed without any shortness of breath. PHYSICAL EXAMINATION: VITAL SIGNS: Blood pressure 137/66, respirations 18, pulse 77, temperature 99.2. HEENT: Head is normocephalic. Eyes: Pupils normal. Conjunctivae slightly pale. NECK: JVP low. Carotids equal. THORAX: AP diameter normal. LUNGS: No significant rales. CARDIOVASCULAR: S1 and S2. Systolic murmur. No rub. ABDOMEN: Soft. Very vague tenderness in the epigastric. EXTREMITIES: No clubbing. No cyanosis. LABORATORY DATA: WBC 13.1, hemoglobin 9.1, hematocrit 29.0, platelets 102. Sodium 138, potassium 3.8, BUN 57, creatinine 5.3, calcium 8.3, phosphorus 3.1, magnesium 1.9. Troponin 0.21, first one; second one 0.55. Total protein 5.6, albumin 2.7. TSH 1.12. The patient had endoscopy and colonoscopy. Colonoscopy, 2 polyps were removed from ascending colon. Polyp removed from the fundus of the stomach. DIAGNOSES: Borderline troponin, most likely secondary to end-stage renal failure and also the patient on admission had severe anemia 6.5. The patient already received blood transfusion and anemia has improved. Rectal bleeding. The patient on catheterization in 06/2017 had normal coronaries. Mildly reduced left ventricular ejection fraction 45%. Right heart pressures upper limit of normal. The patient had pulmonary hypertension prior to Primacor. After Primacor, the patient's pulmonary hypertension improved. Earlier right ventricular systolic pressure was 79 on echocardiogram, later with Primacor, right ventricular pressure was 34/8 with mean pulmonary artery pressure of 15, pulmonary capillary wedge 10. Renal failure, on dialysis; status post multiple blood transfusions. The patient on metoprolol 25 mg daily, Protonix 40 IV daily, ramipril 5 mg daily, hydralazine 10 mg p.o. q.i.d. p.r.n. She is getting D5W as usual, Protonix 40 IV daily. We will continue present therapy and we will follow with you. Po Bradford MD
[2017-10-13 10:48] LABS: INR 1.67 (0.93-1.08); PARTIAL THROMBOPLASTIN TIME 47.7 Seconds (25.1-36.5); PROTHROMBIN TIME 19.4 SECONDS (9.4-12.5)
[2017-10-13] MEDS ORDERED: Sodium Chloride 0.9% 1,000 ML IV SCH (15:30)
--- NOTE | 2017-10-13 16:26 | PN ---
DATE: 10/13/2017 SUBJECTIVE: The patient is lying in bed. She is awake. She is alert. She complains of epigastric pain. PHYSICAL EXAMINATION: GENERAL: Middle-aged lady, lying in bed. VITAL SIGNS: Blood pressure 130/70, heart rate 80, respiratory rate 20, temperature 98.3. HEENT: Normocephalic, atraumatic. NECK: Supple. No JVD. LUNGS: Bilateral equal entry, bilateral equal expansion. CARDIAC: S1, S2, regular rate and rhythm. No murmur, no rub. ABDOMEN: Soft, nondistended, positive tenderness, bowel sounds present. EXTREMITIES: No lower extremity edema. LABORATORY DATA: WBC 13, hemoglobin 9, hematocrit 29 and platelets 102. Sodium 138, potassium 3.8, chloride 100, CO2 of 30, BUN 57, creatinine 5.3, glucose 119, calcium 8.3, phosphorus 3.1, magnesium 1.9 and albumin 2.7. MEDICATIONS: List reviewed. ASSESSMENT: 1. Severe anemia, patient is scheduled for endoscopy today. She received 4 units of packed red blood cells so far. 2. Epigastric pain. 3. Hypertension. 4. End-stage renal disease. 5. Recent hip replacement. PLAN: 1. Follow up endoscopy report. 2. Next dialysis tomorrow. 3. Hemoglobin is stable today. 4. Advance diet as per GI. Mansi Rose MD
[2017-10-14] MEDS: Levalbuterol 1.25 MG/3 ML Inhal Soln UD IH SCH ×4 (02:16→19:28)
[2017-10-14] MEDS: Pantoprazole 40mg/100mL NS 40 MG/100 ML BAG IVPB SCH ×4 (03:47→21:58)
[2017-10-14 06:56] LABS: HEMOGLOBIN 9.1 g/dL (12.0-16.0); MEAN CELL VOLUME 87.3 fl (80.0-105.0); MEAN CORPUSCULAR HEMOGLOBIN 27.4 pg (25.0-35.0); MEAN CORPUSCULAR HGB CONC 31.4 g/dl (31.0-37.0); MEAN PLATELET VOLUME 9.4 fl (7.0-11.0); RBC 3.32 10^6/uL (3.5-6.1); RED CELL DISTRIBUTION WIDTH 18.1 % (11.5-14.5); WHITE BLOOD COUNT 11.4 10^3/ul (4.5-11.0)
--- NOTE | 2017-10-14 10:17 | CP.PCM.PN ---
Subjective - Date & Time of Evaluation Date of Evaluation: 10/14/17 Time of Evaluation: 07:30 - Subjective Subjective: Seen and examined by me and Dr. Bradford Reason for consultation and follow up: Status post respiratory failure,post extunation, hypertension, hyperlipidemia,septic shock, decubitus ulcer on heel, cardiac evaluation Lying in bed, no complaints, sleeping off and on Objective - Vital Signs/Intake and Output Vital Signs (last 24 hours): Temp Pulse Resp BP Pulse Ox 98 F 85 19 128/71 96 10/14/17 06:00 10/14/17 06:00 10/14/17 06:00 10/14/17 06:00 10/14/17 06:00 Intake and Output: 10/14/17 10/14/17 06:59 18:59 Intake Total 120 2160 Balance 120 2160 - Medications Medications: Current Medications Hydralazine HCl (Apresoline) 10 mg PO QID PRN PRN Reason: for SBP>170 Pantoprazole Sodium (Protonix 40mg Ivpb) 40 mg in 100 mls @ 20 mls/hr IVPB .Q5H [facility] Last Admin: 10/14/17 08:47 Dose: 20 mls/hr Dextrose/Sodium Chloride (Dextrose 5%/0.45% Ns 1000 Ml) 1,000 mls @ 40 mls/hr IV .Q24H [facility] Last Admin: 10/12/17 22:39 Dose: 40 mls/hr Levalbuterol HCl (Xopenex) 1.25 mg IH [id number] [facility] Last Admin: 10/14/17 08:00 Dose: 1.25 mg Metoprolol Succinate (Toprol Xl) 25 mg PO DAILY [facility] Last Admin: 10/13/17 09:25 Dose: 25 mg Ondansetron HCl (Zofran Inj) 4 mg IVP Q4H PRN PRN Reason: Nausea/Vomiting Last Admin: 10/11/17 11:56 Dose: 4 mg Ramipril (Altace) 5 mg PO DAILY [facility] Last Admin: 10/13/17 09:24 Dose: 5 mg - Labs Labs: 10/14/17 06:30 10/12/17 10:00 PT 19.4 SECONDS (9.4-12.5) H 10/13/17 10:00 INR 1.67 (0.93-1.08) H 10/13/17 10:00 APTT 47.7 Seconds (25.1-36.5) H 10/13/17 10:00 - Constitutional Appears: No Acute Distress - Eye Exam Pupil Exam: NORMAL ACCOMODATION - ENT Exam ENT Exam: Mucous Membranes Dry - Neck Exam Neck Exam: Normal Inspection - Respiratory Exam Respiratory Exam: Decreased Breath Sounds, Clear to Ausculation Bilateral, NORMAL BREATHING PATTERN - Cardiovascular Exam Cardiovascular Exam: REGULAR RHYTHM, +S1, +S2 - GI/Abdominal Exam GI & Abdominal Exam: Soft, Normal Bowel Sounds - Extremities Exam Extremities Exam: Normal Capillary Refill - Neurological Exam Neurological Exam: Alert, Awake - Psychiatric Exam Psychiatric exam: Normal Affect, Normal Mood - Skin Skin Exam: Dry, Intact - Additional Findings Additional findings: Left arm AV shunt with positive bruit Assessment and Plan - Assessment and Plan (Free Text) Assessment: IMpression:status post respiratory failure,post extunation, hypertension, hyperlipidemia,septic shock, decubitus ulcer on heel, altered mental status, with cerebrovascular accident,anemia Plan: Cardiac huggins stable Blood pressure well controlled to continue with Metropolol XL 25 mg daily and Ramipril 5 mg OD Stable anemia post transfusion hemoglobin and hematocrit No active bleeding, endoscopy report noted and normal Continue present treatment Will follow up Treatment and plan reviewed with Dr. Bradford
[2017-10-14 10:36] LABS: ALB/GLOB RATIO 0.9 (1.1-1.8); ALBUMIN 2.7 g/dL (3.0-4.8); CALCIUM 9.3 mg/dL (8.4-10.5)
--- NOTE | 2017-10-14 11:10 | PN ---
DATE: SUBJECTIVE: The patient is currently seen leaving , en route for dialysis. Her hemoglobin has apparently stabilized. She is status post an upper endoscopy yesterday, which showed portal gastropathy, but no active bleeding. According to the nursing staff, she is still passing dark stools, but apparently no active bleeding. MEDICATIONS: Medication list reviewed. The patient is currently on Ramipril, hydralazine p.r.n., D5 half-normal saline 40 mL an hour, Protonix, Toprol, Xopenex and Zofran. OBJECTIVE: INTAKE/OUTPUT: Intake 2160, output not charted. VITAL SIGNS: Blood pressure is 128/71, temperature 98, respiratory rate is 19 with a pulse of 85. HEENT: Shows her to be normocephalic, atraumatic. Conjunctivae are pale. Sclerae are icteric. NECK: Supple. No neck vein distention. CHEST: Clear to auscultation and percussion. No rales, rhonchi or wheezing. CARDIOVASCULAR: Shows a normal S1, S2. Soft murmur, systolic, left lower sternal border. No S3. No S4. No rub. ABDOMEN: Soft. Bowel sounds normal. No rebound. No guarding. No masses. No tenderness on palpation. No distention. EXTREMITIES: Show resolved cellulitis of her left lower extremity. She has trace nonpitting edema of her lower extremity bilaterally. She has a dressing over the right upper lateral thigh area in the area of a total right hip replacement surgery. No apparent erythema, no drainage and no bleeding at the surgical site. LABORATORY DATA AND IMAGING: CBC today, white blood cell count 11.4, hemoglobin stable at 9.1, platelet count is 102,000. Coags: PT 19.4 with an INR of 1.67, PTT of 47.7. Chemistries are pending predialysis today. ASSESSMENT: 1. Severe anemia, status post likely upper gastrointestinal bleed from portal gastropathy. Stools are positive and the patient had melena. She is status post receiving 4 units of packed red blood cells. Hemoglobin is stabilized at 4.1. She is status post endoscopy yesterday, which showed portal gastropathy, but no active bleeding. 2. History of end-stage renal disease. The patient will continue routine dialysis Monday, , Monday. She is admitted to dialysis today. No heparin. 3. History of hypertension. Blood pressure is controlled on present medical therapy. 4. History of pulmonary hypertension with chronic obstructive pulmonary disease secondary to long history of cigarette smoking. The patient will continue inhalation therapy. 5. History of gastroesophageal reflux disease. The patient will continue proton pump inhibitor therapy. 6. History of secondary hyperparathyroidism. Phosphorus levels on last check was 3.1, well within the normal range. The patient will continue vitamin D on dialysis as per protocol. The patient may restart binder therapy once the oral intake gets back to normal. 7. History of severe anemia. No further transfusions necessary today. We will maximize Aranesp dose on dialysis. 8. Status post lower extremity cellulitis. This has resolved. 9. Status post total right hip replacement surgery. This appears stable. 10. Atypical chest pain with elevated troponin level, seen by Cardiology. This is felt to be secondary to end-stage renal disease. The patient apparently had a negative cardiac catheterization in the fall of 2016. PLAN: 1. Continue Monday, , Monday dialysis. No heparin. 2. Keep hemoglobin in the 9-10 range. 3. Continue IV PPI therapy. 4. Continue GI followup. 5. Continue Cardiology followup. Deon Mathews MD
[2017-10-14] MEDS: Metoprolol Succinate 25 mg XL Tab PO SCH (14:24)
[2017-10-14] MEDS: Morphine 2 mg/ml ISec IVP PRN (15:21)
--- NOTE | 2017-10-14 20:23 | CP.PCM.PN ---
Subjective - Date & Time of Evaluation Date of Evaluation: 10/12/17 Time of Evaluation: 16:00 - Subjective Subjective: No bleeding overnight. Hb declined to 7.5 gm/dl. EGD done today showed esophagial varices., hypertensive gastropathy. Objective - Vital Signs/Intake and Output Vital Signs (last 24 hours): Temp Pulse Resp BP Pulse Ox 99.2 F 82 20 134/67 97 10/14/17 18:00 10/14/17 18:00 10/14/17 18:00 10/14/17 18:00 10/14/17 18:00 Intake and Output: 10/14/17 10/15/17 18:59 07:59 Intake Total 2220 Balance 2220 - Medications Medications: Current Medications Hydralazine HCl (Apresoline) 10 mg PO QID PRN PRN Reason: for SBP>170 Pantoprazole Sodium (Protonix 40mg Ivpb) 40 mg in 100 mls @ 20 mls/hr IVPB .Q5H [facility] Last Admin: 10/14/17 18:48 Dose: 20 mls/hr Dextrose/Sodium Chloride (Dextrose 5%/0.45% Ns 1000 Ml) 1,000 mls @ 40 mls/hr IV .Q24H [facility] Last Admin: 10/12/17 22:39 Dose: 40 mls/hr Levalbuterol HCl (Xopenex) 1.25 mg IH [id number] [facility] Last Admin: 10/14/17 19:28 Dose: 1.25 mg Metoprolol Succinate (Toprol Xl) 25 mg PO DAILY [facility] Last Admin: 10/14/17 14:24 Dose: 25 mg Morphine Sulfate (Morphine) 1 mg IVP Q4H PRN PRN Reason: Pain, moderate (4-7) Last Admin: 10/14/17 15:21 Dose: 1 mg Ondansetron HCl (Zofran Inj) 4 mg IVP Q4H PRN PRN Reason: Nausea/Vomiting Last Admin: 10/11/17 11:56 Dose: 4 mg Ramipril (Altace) 5 mg PO DAILY [facility] Last Admin: 10/14/17 14:22 Dose: 5 mg - Labs Labs: 10/14/17 06:30 10/14/17 10:10 PT 19.4 SECONDS (9.4-12.5) H 10/13/17 10:00 INR 1.67 (0.93-1.08) H 10/13/17 10:00 APTT 47.7 Seconds (25.1-36.5) H 10/13/17 10:00 - Constitutional Appears: Chronically Ill - Head Exam Head Exam: ATRAUMATIC, NORMAL INSPECTION, NORMOCEPHALIC - Eye Exam Eye Exam: Normal appearance - ENT Exam ENT Exam: Mucous Membranes Moist - Neck Exam Neck Exam: Normal Inspection - Respiratory Exam Respiratory Exam: Clear to Ausculation Bilateral, NORMAL BREATHING PATTERN - Cardiovascular Exam Cardiovascular Exam: REGULAR RHYTHM, +S1, +S2 - GI/Abdominal Exam GI & Abdominal Exam: Soft, Normal Bowel Sounds - Back Exam Back Exam: NORMAL INSPECTION - Neurological Exam Neurological Exam: Alert, Awake, Oriented x3 - Skin Skin Exam: Pallor, Warm Assessment and Plan - Assessment and Plan (Free Text) Assessment: 1. ESRD on HD. 2. Severe anemia : peripheral smear reviewed. No signs of hemolysis. 2 units of PRBC given today. 3. EGD . esophageal varices, gastropathy. 4. recent hip replacement : coags INR elevated, likely due to chirosis liver. will monitor. No active bleed. Allergic to mutliple meds. Vit K can be used if active bleeding for reversal of coagulopathy.
--- NOTE | 2017-10-14 21:44 | PN ---
DATE: 10/14/2017 SUBJECTIVE: She is comfortable in bed. She is complaining of right hip pain. No bleeding. No melena. No hematemesis. Underwent EGD yesterday, showed grade 1 esophageal varices and hypertensive gastropathy. She is followed by GI and Renal consultants. Transfused 2 units of blood 2 days ago. No chest pain. REVIEW OF SYSTEMS: As per HPI. Rest of 12-point review of systems reviewed and negative. MEDICATIONS: Dextrose and sodium chloride, hydralazine 10 mg four times a day p.r.n., Xopenex, metoprolol 25 mg daily, Zofran 4 mg q.4 hours p.r.n., Protonix, and Altace 5 mg p.o. daily. LABORATORY DATA: White count 11.4, hemoglobin 9.1, hematocrit 29, platelet count 102. Sodium 133, potassium 3.2, creatinine 5. PHYSICAL EXAMINATION GENERAL: comfortable in bed. GC improved. Alert, oriented to time, place and person. VITAL SIGNS: Stable. Temperature 98.7, heart rate 80 per minute, respiratory rate 18 per minute, blood pressure 120/60. CHEST: Air entry present and equal bilaterally. No added sounds. CARDIOVASCULAR: S1 and S2 normal. No murmur. No gallop. ABDOMEN: Soft, nontender. EXTREMITIES: 1+ edema. CENTRAL NERVOUS SYSTEM: Alert and oriented x3. Spine - non tender Skin - no petechie , no rash. ASSESSMENT: 1. End-stage renal disease, on hemodialysis. 2. Gastrointestinal bleed. 3. Severe anemia. 4. Esophageal varices, hypertensive gastropathy. 5. Coagulopathy. PLAN: Hemoglobin and hematocrit is stable; hemoglobin is 9.2. No active source of bleeding found on endoscopy. She has grade 1 esophageal varices. Coagulopathy, likely related to cirrhosis of liver as evidenced by portal hypertension and esophageal varices. INR is slowly trending down now. No active bleeding. I WILL HOLD VITAMIN K SHE HAS MULTIPLE ALLERGIES INCLUDING ANAPHYLAXIS TO A FEW MEDICATIONS. Vitamin K is known for severe anaphylaxis. She is being dialyzed. Followed by consultants, Gastroenterology and Cardiology. Hemodynamically stable. Dr. Rosado's and Dr. Bradford's, notes reviewed. For right hip pain, morphine 1 mg q.4 hours p.r.n. Chelsy Dominguez MD [facility] # [id number] [place]
[2017-10-14] MEDS: Dextrose 5%/0.45% NS 1,000 ML IV SCH (21:59)
--- NOTE | 2017-10-15 00:44 | PN ---
DATE:10/14/2017 SUBJECTIVE: This patient was seen and evaluated earlier today. The patient is tolerating the diet. No further bowel movements. No melena. PHYSICAL EXAMINATION: VITAL SIGNS: Temperature is 99.2, pulse 82, blood pressure 134/67. HEENT: Atraumatic, anicteric. NECK: Supple. HEART: S1 and S2 heard. LUNGS: Bilateral air entry present. ABDOMEN: Soft. There is some mild tenderness present in the epigastric, right upper quadrant. NEUROLOGICAL: Alert, oriented. Moves all the extremities. LABORATORY DATA: Hemoglobin 9.1, hematocrit 29, WBC is 11.4, platelets 102. BUN 32, creatinine 5.0. IMPRESSION: This is a 57-year-old patient with end-stage renal disease, on hemodialysis, has history of status post right hip surgery done before, admitted with severe anemia, history of melena, had an endoscopy done on Monday, was found to have grade 1 esophageal varices, portal gastropathy and three clips were present in the fundus area. Veins were prominent. There was no blood noticed. No active bleeding site noticed. The patient did have a massive bleeding before. The patient does have tricuspid regurgitation, history of pulmonary hypertension. Endoscopic appearance, it is portal hypertensive gastropathy in the setting of grade 1 varices. The patient has what appeared to be Dieulafoy's lesion. It could be prominent veins in the portal hypertension eroded into the mucosa, but no obvious varices noticed. At that time, the three clips were applied and controlled bleeding. The patient presently notes last endoscopy did not reveal any active bleeding site. INR was mildly elevated. Another problem the patient has is elevated chromogranin A levels. RECOMMENDATIONS: 1. Follow up of the hemoglobin and hematocrit, and transfuse. 2. Advance the diet. 3. The patient would benefit from Carafate, low dose proton pump inhibitor versus H2 blockers. 4. The patient was advised to follow up in a tertiary setup for further evaluation of elevated chromogranin A levels and also portal hypertension. I had detailed discussion with the patient. Thank you very much for allowing us to participate in the care of the patient. Jesus Manuel Rosado MD [facility] # [id number] [place]
[2017-10-15] MEDS: Levalbuterol 1.25 MG/3 ML Inhal Soln UD IH SCH ×4 (01:14→19:04)
[2017-10-15] MEDS: Pantoprazole 40mg/100mL NS 40 MG/100 ML BAG IVPB SCH ×3 (03:28→16:03)
[2017-10-15] MEDS: Morphine 2 mg/ml ISec IVP PRN ×3 (05:49→22:10)
[2017-10-15 07:07] LABS: HEMOGLOBIN 8.6 g/dL (12.0-16.0); MEAN CELL VOLUME 88.3 fl (80.0-105.0); MEAN CORPUSCULAR HEMOGLOBIN 27.3 pg (25.0-35.0); MEAN CORPUSCULAR HGB CONC 30.9 g/dl (31.0-37.0); MEAN PLATELET VOLUME 9.9 fl (7.0-11.0); RBC 3.15 10^6/uL (3.5-6.1); RED CELL DISTRIBUTION WIDTH 18.4 % (11.5-14.5); WHITE BLOOD COUNT 9.3 10^3/ul (4.5-11.0)
[2017-10-15] MEDS: Metoprolol Succinate 25 mg XL Tab PO SCH (10:57)
--- NOTE | 2017-10-15 11:35 | CP.PCM.PN ---
Subjective - Date & Time of Evaluation Date of Evaluation: 10/15/17 Time of Evaluation: 08:15 - Subjective Subjective: Seen and examined by me and Dr. Bradford Reason for consultation and follow up: post extubation, Status post respiratory failure, hypertension, hyperlipidemia,septic shock, decubitus ulcer on heel, cardiac evaluation Lying in bed, no complaints, denies shortness of breath Objective - Vital Signs/Intake and Output Vital Signs (last 24 hours): Temp Pulse Resp BP Pulse Ox 98.6 F 76 20 123/78 99 10/15/17 06:00 10/15/17 10:57 10/15/17 06:00 10/15/17 10:57 10/15/17 06:00 Intake and Output: 10/15/17 10/15/17 06:59 18:59 Intake Total Output Total Balance - Medications Medications: Current Medications Hydralazine HCl (Apresoline) 10 mg PO QID PRN PRN Reason: for SBP>170 Pantoprazole Sodium (Protonix 40mg Ivpb) 40 mg in 100 mls @ 20 mls/hr IVPB .Q5H [facility] Last Admin: 10/15/17 06:26 Dose: 20 mls/hr Dextrose/Sodium Chloride (Dextrose 5%/0.45% Ns 1000 Ml) 1,000 mls @ 40 mls/hr IV .Q24H [facility] Last Admin: 10/14/17 21:59 Dose: 40 mls/hr Levalbuterol HCl (Xopenex) 1.25 mg IH [id number] [facility] Last Admin: 10/15/17 07:37 Dose: 1.25 mg Metoprolol Succinate (Toprol Xl) 25 mg PO DAILY [facility] Last Admin: 10/15/17 10:57 Dose: 25 mg Morphine Sulfate (Morphine) 1 mg IVP Q4H PRN PRN Reason: Pain, moderate (4-7) Last Admin: 10/15/17 05:49 Dose: 1 mg Ondansetron HCl (Zofran Inj) 4 mg IVP Q4H PRN PRN Reason: Nausea/Vomiting Last Admin: 10/11/17 11:56 Dose: 4 mg Ramipril (Altace) 5 mg PO DAILY [facility] [place] Last Admin: 10/15/17 10:44 Dose: 5 mg - Labs Labs: 10/15/17 06:30 10/14/17 10:10 PT 19.4 SECONDS (9.4-12.5) H 10/13/17 10:00 INR 1.67 (0.93-1.08) H 10/13/17 10:00 APTT 47.7 Seconds (25.1-36.5) H 10/13/17 10:00 - Constitutional Appears: No Acute Distress - Head Exam Head Exam: NORMAL INSPECTION - Eye Exam Eye Exam: Normal appearance Pupil Exam: NORMAL ACCOMODATION - ENT Exam ENT Exam: Mucous Membranes Dry - Respiratory Exam Respiratory Exam: Clear to Ausculation Bilateral, NORMAL BREATHING PATTERN - Cardiovascular Exam Cardiovascular Exam: REGULAR RHYTHM, +S1, +S2 - GI/Abdominal Exam GI & Abdominal Exam: Soft, Normal Bowel Sounds - Extremities Exam Extremities Exam: Normal Capillary Refill - Back Exam Back Exam: NORMAL INSPECTION - Neurological Exam Neurological Exam: Alert, Awake, Oriented x3 - Psychiatric Exam Psychiatric exam: Normal Affect, Normal Mood - Skin Skin Exam: Dry, Intact, Normal Color, Warm Assessment and Plan - Assessment and Plan (Free Text) Assessment: Impression: post extubation, Status post respiratory failure, hypertension, hyperlipidemia, septic shock, decubitus ulcer on heel, cardiac evaluation Plan: Blood pressure and heart rate controlled and stable Continue Metoprolol and Ramipril Continue current treatment Hemoglobin and hematocrit stable, no further bleeding Potassium 3.2 but renal failure so defer to Renal Will follow up Plan and treatment reviewed with Dr. Bradford
[2017-10-15] MEDS: Dextrose 5%/0.45% NS 1,000 ML IV SCH (21:31)
--- NOTE | 2017-10-15 23:33 | PN ---
DATE: 10/15/2017 FOLLOWUP NOTE SUBJECTIVE: Comfortable in bed, in no acute distress. Wheezing improved. No nausea. No vomiting. No abdominal pain. No dark-colored stools. No hematemesis or melena. She underwent EGD by Dr. Rosado. EGD showed esophageal varices and hypertensive gastropathy. No active bleeding was found. REVIEW OF SYSTEMS: As per HPI. Rest of 12-point review of systems reviewed negative. PHYSICAL EXAMINATION: GENERAL: Comfortable in bed, no acute distress. Pallor positive. VITAL SIGNS: Temperature 97.8, heart rate is 73 per minute, blood pressure 130/70, respiratory rate 18 per minute, oxygen saturation 96% on room air. HEENT: Pallor positive. NECK: No lymphadenopathy. CHEST: Air entry present and equal bilaterally. No added sounds. CARDIOVASCULAR: Within normal limits. S1, S2 normal. No murmur. No gallop. ABDOMEN: Soft, nontender. No hepatosplenomegaly. EXTREMITIES: No edema. OPEN DIE INSPECTOR: Alert and oriented x3. No focal sensorimotor deficit. LABORATORY DATA: White count 9.3, hemoglobin 8.6, hematocrit 27.8, platelet 114. Sodium 133, potassium 3.2, creatinine 5. MEDICATIONS: Dextrose/sodium chloride 40 mL an hour, hydralazine 10 mg p.o. q.i.d. p.r.n., Xopenex q. 6 hours scheduled, metoprolol 25 mg daily, morphine 1 mg IV q. 4 hours p.r.n. for pain., Zofran 4 mg IV q. 4 hours p.r.n. for nausea, Altace 5 mg p.o. daily. ASSESSMENT: 1. End-stage renal disease, on hemodialysis. 2. Gastrointestinal bleed. 3. Right hip replacement, recent. 4. Coagulopathy - resolving. 5. Severe anemia. PLAN: She is currently comfortable. General condition improved. Hemoglobin is trending down, currently 8.6. It was 9.1 on 10/13/2017. We will continue to monitor hemoglobin closely. She is getting IV iron and BLUE with dialysis. Coagulopathy improved. INR is 1.6. Troponins were elevated. Likely due to end-stage renal disease. Overall general condition improved. We will continue to follow closely. Chelsy Dominguez MD [facility] # [id number]
--- NOTE | 2017-10-15 23:40 | PN ---
DATE: 10/15/2017 SUBJECTIVE: This patient was seen and evaluated earlier today. The patient did have bowel movements yesterday. No complaints of any abdominal pain. Tolerating now diet. PHYSICAL EXAMINATION: VITAL SIGNS: Temperature is 97.8, pulse 73, blood pressure 131/71. HEENT: Atraumatic, anicteric. NECK: Supple. HEART: S1 and S2 heard. LUNGS: Bilateral air entry present. ABDOMEN: Soft. There is mild tenderness present in the epigastric area. LABORATORY DATA: Hemoglobin 8.6, hematocrit 27.8, WBC is 9.3, platelets 114. BUN 32, creatinine 5.0 done yesterday. IMPRESSION: 1. This 57-year-old patient with end-stage renal disease, on hemodialysis, had multiple medical problems, had a recent hip surgery done before, now admitted with severe anemia, the patient on Pradaxa, which has been discontinued. The patient was admitted with hemoglobin of 6.5, transfused. An endoscopy showed grade 1 esophageal varices and portal hypertension and three clips of the previous procedure noticed. The patient did have what appeared to be like Dieulafoy's lesion and retrospectively it may be a vein, which is eroded than arterial. The patient did have right heart catheterization and also left heart catheterization done before. 2. The patient did have a massive gastrointestinal bleeding at that time. 3. She has a history of tricuspid regurgitation, pulmonary hypertension. 4. Chronic right upper quadrant pain, may be secondary to the hepatic congestion. RECOMMENDATIONS: 1. Close followup of the hemoglobin and hematocrit. Diet has been advanced, patient is tolerating. Presently on Protonix drip, we will discontinue it. 2. The patient would benefit from Carafate short-term, and also with long-term low-dose proton pump inhibitors, and may benefit from the low-dose H2 edith. The patient would clearly benefit from the tertiary care setup to further evaluate the complexity in this patient's hemodynamic status, portal hypertension, tricuspid regurgitation, possible pulmonary hypertension. Patient was not started on beta-blockers in view of the concern about giving beta-blockers in the setting of pulmonary hypertension. Patient also has elevated chromogranin levels. I had a detailed discussion with the patient to be followed up on a tertiary care center, they are fully aware of it. She will consider doing it. Follow up in the [facility] with Dr. Mock upon discharge. Thank you very much for allowing us to participate in the care of the patient. Jesus Manuel Rosado MD [facility]
[2017-10-16] MEDS: Levalbuterol 1.25 MG/3 ML Inhal Soln UD IH SCH ×3 (01:16→13:41)
[2017-10-16 05:56] VITALS: O2SAT 99
[2017-10-16] MEDS: Morphine 2 mg/ml ISec IVP PRN ×3 (05:57→15:51)
--- NOTE | 2017-10-16 07:10 | CP.PCM.PN ---
Subjective - Date & Time of Evaluation Date of Evaluation: 10/16/17 Time of Evaluation: 06:45 - Subjective Subjective: Seen and examined by me and Dr. Bradford Reason for consultation and follow up: post extubation, post respiratory failure ,hypertension,septic sarah,anemia,end stage renal disease on hemodialysis 3x a week.(TThS) Lying semi flat in bed, denies shortness of breath and chest pain, verbalized to be okay Objective - Vital Signs/Intake and Output Vital Signs (last 24 hours): Temp Pulse Resp BP Pulse Ox 98 F 74 19 140/67 99 10/16/17 05:55 10/16/17 05:55 10/16/17 05:55 10/16/17 05:55 10/16/17 05:55 Intake and Output: 10/16/17 10/16/17 06:59 18:59 Intake Total 720 Output Total 100 Balance 620 - Medications Medications: Current Medications Hydralazine HCl (Apresoline) 10 mg PO QID PRN PRN Reason: for SBP>170 Dextrose/Sodium Chloride (Dextrose 5%/0.45% Ns 1000 Ml) 1,000 mls @ 40 mls/hr IV .Q24H [facility] Last Admin: 10/15/17 21:31 Dose: Not Given Levalbuterol HCl (Xopenex) 1.25 mg IH [id number] [facility] Last Admin: 10/16/17 01:16 Dose: 1.25 mg Metoprolol Succinate (Toprol Xl) 25 mg PO DAILY [facility] Last Admin: 10/15/17 10:57 Dose: 25 mg Morphine Sulfate (Morphine) 1 mg IVP Q4H PRN PRN Reason: Pain, moderate (4-7) Last Admin: 10/16/17 05:57 Dose: 1 mg Ondansetron HCl (Zofran Inj) 4 mg IVP Q4H PRN PRN Reason: Nausea/Vomiting Last Admin: 10/11/17 11:56 Dose: 4 mg Ramipril (Altace) 5 mg PO DAILY [facility] Last Admin: 10/15/17 10:44 Dose: 5 mg - Labs Labs: 10/15/17 06:30 10/14/17 10:10 PT 19.4 SECONDS (9.4-12.5) H 10/13/17 10:00 INR 1.67 (0.93-1.08) H 10/13/17 10:00 APTT 47.7 Seconds (25.1-36.5) H 10/13/17 10:00 - Constitutional Appears: No Acute Distress - Head Exam Head Exam: NORMAL INSPECTION - Eye Exam Eye Exam: Normal appearance Pupil Exam: NORMAL ACCOMODATION - ENT Exam ENT Exam: Mucous Membranes Moist - Neck Exam Neck Exam: Normal Inspection - Respiratory Exam Respiratory Exam: Decreased Breath Sounds, Clear to Ausculation Bilateral, NORMAL BREATHING PATTERN - Cardiovascular Exam Cardiovascular Exam: REGULAR RHYTHM, +S1, +S2 - GI/Abdominal Exam GI & Abdominal Exam: Soft, Normal Bowel Sounds - Extremities Exam Extremities Exam: Normal Capillary Refill Additional comments: left upper arm AV fistula with positive bruit - Neurological Exam Neurological Exam: Alert, Awake, Oriented x3 - Psychiatric Exam Psychiatric exam: Normal Affect, Normal Mood - Skin Skin Exam: Dry, Warm Assessment and Plan - Assessment and Plan (Free Text) Assessment: Impression; post extubation, post respiratory failure,hypertension,septic sarah ,anemia,end stage renal disease on hemodialysis 3x a week.(TThS) Plan: Continue current treatment, stable cardiac huggins Continue Toprol XL 25 mg daily,Ramipril 5 mg OD,and Hydralazine 10 mg PRN for elevated BP. Verbalized and Looking better than previous days On hemodialysis Monday/ and Monday Will follow up Plan and treatment discussed with Dr. Bradford
[2017-10-16 07:42] LABS: HEMOGLOBIN 8.5 g/dL (12.0-16.0); MEAN CELL VOLUME 87.5 fl (80.0-105.0); MEAN CORPUSCULAR HEMOGLOBIN 27.2 pg (25.0-35.0); MEAN CORPUSCULAR HGB CONC 31.1 g/dl (31.0-37.0); RBC 3.12 10^6/uL (3.5-6.1); RED CELL DISTRIBUTION WIDTH 18.3 % (11.5-14.5); WHITE BLOOD COUNT 7.6 10^3/ul (4.5-11.0)
--- NOTE | 2017-10-16 08:12 | PN ---
DATE: SUBJECTIVE: The patient is a 57-year-old seen and examined. She denies any chest pain, complains of epigastric discomfort, still on ice-chips. Normal black stool. She is not eating either. PHYSICAL EXAMINATION VITAL SIGNS: She is afebrile. Pulse 77, respirations 18, blood pressure 137/66. LUNGS: Bilateral good airflow. No rhonchi or crackles. HEART: S1, S2 audible. ABDOMEN: Soft, nontender. No rebound. No guarding. NEUROLOGIC: The patient is awake and alert, communicative. LABORATORY DATA: WBC is 13.1, hemoglobin 9.1, hematocrit 29, platelet of 102. Her PT is 19.4, INR 1.67. TSH is 1.12. Blood culture and urine cultures are negative. ASSESSMENT: 1. Gastrointestinal bleed. 2. Right hip surgery, status post reconstruction surgery. 3. Symptomatic anemia, status post 4 blood transfusions. 4. End-stage renal disease, on hemodialysis. 5. Chronic obstructive pulmonary disease. 6. Positive troponin, probably demand ischemia. PLAN: The plan is discussed with Dr. Rosado. She will go for diagnostic endoscopy this morning. We will hold all anticoagulation. It was explained to the patient at length. As she is at risk for pneumonia embolism, she is advised to do bedside exercises, bend and flex her right knee. She understands that. We will follow up her CBC and CMP in the a.m.. Shawn Gomez MD
[2017-10-16] MEDS: Metoprolol Succinate 25 mg XL Tab PO SCH (09:01)
[2017-10-16 12:11] VITALS: BP 135/70
[2017-10-16 12:48] VITALS: RESP 14; TEMP 98
[2017-10-16 16:29] VITALS: PULSE 77
--- NOTE | 2017-10-16 19:16 | PN ---
DATE: SUBJECTIVE: The patient is currently seen lying comfortable in bed on 3-R. The patient states that she is going to be transferred to [facility] later this afternoon. Her hemoglobin has apparently stabilized in the mid 8 to low 9 range. No active GI bleeding. MEDICATIONS: Medication list reviewed. The patient is on Altace, Apresoline, morphine, Toprol, Xopenex, and Zofran. OBJECTIVE: INTAKE/OUTPUT: Intake 720, output 100. VITAL SIGNS: Blood pressure is 135/70, temperature is 98, respiratory rate is 14 with a pulse of 70. HEENT: Shows her to be normocephalic, atraumatic. Conjunctivae remain pale. Sclerae are icteric. NECK: Supple. No neck vein distention. CHEST: Clear to auscultation and percussion. No rales, rhonchi, or wheezing. CARDIOVASCULAR: Shows a regular rate and rhythm without murmurs, rubs, or gallops. No S3, no S4, no rub. ABDOMEN: Soft. Bowel sounds normal. No rebound, guarding, or masses. EXTREMITIES: Show no lower extremity edema. Resolved cellulitis of her left lower extremity. Positive total right hip replacement surgical scar with no evidence for infection. LABORATORY DATA AND IMAGING: CBC: White blood cell count today 7.6, hemoglobin stable at 8.5. Platelet count is 106,000. Chemistries show a pre-dialysis potassium of 3.2. The patient dialyzed on a higher potassium bath on 10/14/2017. BUN 32 with a creatinine of 5. Glucose is 160. Last calcium 9.2 with a phosphorus of 2.3, binder therapy is on hold. Bilirubin elevated at 4.4. Mild elevation of her liver enzymes. ASSESSMENT: 1. Severe anemia, status post transfusion of 4 units of packed red blood cells. The patient was found to have portal gastropathy with no active bleeding on upper endoscopy. She has apparently stabilized with hemoglobins in the 8.5 to low 9 range. She has no active bleeding at present and the patient is being prepared for transfer to [facility]. The patient had been cleared by Gastroenterology. 2. History of end-stage renal disease. The patient will return tomorrow for her routine dialysis. She has a Monday, , Monday dialysis. Patient to receive no heparin. 3. History of hypertension. Blood pressure is controlled on present medication. The patient will continue hydralazine on an as-needed basis with low-dose Altace and low-dose metoprolol. 4. History of gastroesophageal reflux disease, currently stable. The patient had been receiving protein pump inhibition therapy. 5. History of secondary hyperparathyroidism. The patient will likely need to resume binder therapy once her phosphorus level increases. 6. History of severe anemia. No further transfusions necessary at this point in time. Monitor for any further GI bleeding. The patient will receive maximum dose of Aranesp with dialysis along with iron supplements per protocol. 7. Status post lower extremity left leg cellulitis. 8. Status post right total hip replacement surgery. 9. Atypical chest pain with an elevated troponin. The patient had a negative cardiac catheterization in fall. It is felt that her troponin elevation is secondary to chronic kidney disease. PLAN: 1. We will continue to monitor the patient closely in outpatient dialysis. Continue to monitor hemoglobin closely. 2. The patient will monitor closely for resolution of her dark-colored stools. 3. I suggest continuing PPI therapy as per GI. 4. Follow up with me Monday, , Monday in outpatient dialysis. Deon Mathews MD
--- NOTE | 2017-10-16 23:48 | PN ---
DATE: 10/16/2017 FOLLOWUP NOTE SUBJECTIVE: She is comfortable in bed, in no acute distress. Admitted with GI bleed. No dark-colored stools. No nausea or vomiting. EGD showed esophageal varices. No bleeding source could be identified. She has end-stage renal disease, on hemodialysis. Hemoglobin is in the range of 8-9 g/dL. She is status post several units of blood transfusion. REVIEW OF SYSTEMS: As per HPI. No chest pain. No shortness of breath. Recent right hip surgery has constant pain on the side. Ambulating with support. MEDICATIONS: Reviewed. PHYSICAL EXAMINATION: GENERAL: Comfortable in bed, in no acute distress. VITAL SIGNS: Temperature 98, respiratory rate 14 per minute, heart rate is 75 per minute, blood pressure 130/70. HEENT: Pallor positive. NECK: No lymphadenopathy. CHEST: Air entry present and equal bilaterally. No added sounds. CARDIOVASCULAR: S1, S2 normal. No murmur. No gallop. ABDOMEN: Soft, nontender. No hepatosplenomegaly. EXTREMITIES: No edema. [employer]: Alert and oriented x3. No focal sensorimotor deficits. LABORATORY DATA: White count 7.6, hemoglobin 8.5, platelet 106. BUN 32, creatinine 5, glucose 160, calcium 9.2, phosphorus 2.3, bilirubin 4.4. ASSESSMENT AND PLAN: 1. Gastrointestinal bleed. 2. Severe anemia. 3. End-stage renal disease, on hemodialysis. 4. Esophageal varices. 5. Possible cirrhosis of liver. 6. Coagulopathy. No active bleeding right now. Hemoglobin has been stable for past few days. She is status post several units of blood transfusion. She will need iron replacement and erythropoietin support to maintain normal hemoglobin that will be done during dialysis. She comes to dialysis 3 times a week. She has coagulopathy, which is resolving. Coagulopathy is likely related to liver disease. Bilirubin is elevated to 4.4. Peripheral smear reviewed did not show any signs of hemolysis. Elevated bilirubin might be related to gastrointestinal bleed. She is being transferred to subacute rehab. Chelsy Dominguez MD
--- NOTE | 2017-10-17 04:02 | PN ---
DATE: 10/16/2017 SUBJECTIVE: This patient was seen and evaluated. The patient is tolerating the diet. PHYSICAL EXAMINATION: VITAL SIGNS: Temperature 98, blood pressure 135/70, respirations 18, pulse 70. HEENT: Atraumatic, anicteric. NECK: Supple. HEART: S1 and S2 heard. LUNGS: Bilateral air entry present. ABDOMEN: Soft. There is mild tenderness present with deep palpation in the epigastric area, otherwise unremarkable. LABORATORY DATA: Hemoglobin 8.5, hematocrit 27.3, WBC 7.6, platelets 106. IMPRESSION: 1. This 57-year-old patient with end-stage renal disease, on hemodialysis, had a history of pulmonary hypertension, possible portal hypertension, had massive bleeding before, clipping of the Dieulafoy lesion versus portal hypertension of the eroded veins. 2. The patient had multiple transfusions, massive bleeding. 3. History of tricuspid regurgitation, pulmonary hypertension. 4. History of chronic right upper quadrant pain, probably secondary to the hepatic congestion. RECOMMENDATIONS: 1. Followup of the hemoglobin and hematocrit. 2. Slowly advance the diet. 3. The patient is to follow up in [facility]. The patient was explained clearly about the mildly elevated chromogranin level. Thank you very much for allowing us to participate in the care of the patient. Jesus Manuel Rosado MD [place]
--- NOTE | 2017-10-17 12:06 | DS ---
HISTORY OF PRESENT ILLNESS: Patient is 57 years old, seen and examined. Patient was initially admitted with upper GI bleed and she has melena. She underwent endoscopy, found to have some esophageal varices, but nonbleeding, so she was given four blood transfusions. Seems to be doing well today, eating and tolerating. PHYSICAL EXAMINATION VITAL SIGNS: Patient is afebrile. Pulse 70, respirations 18, blood pressure . LUNGS: Bilateral good airflow. No rhonchi or crackles. HEART: S1, S2 audible. ABDOMEN: Soft, nontender. No rebound. No guarding. NEUROLOGIC: Patient is awake, alert, oriented, and communicative. LABORATORY DATA: WBC is 7.6, hemoglobin 8.5, hematocrit 27.3, platelets 106,000. PT 19.4, INR 1.67. Chemistry: Sodium 133, potassium 3.2, chloride 96, CO2 31, BUN 32, creatinine 5, blood sugar 160, total bili 4.4, AST 111, ALT 43. ASSESSMENT 1. Status post gastrointestinal bleed secondary to being on anticoagulant. 2. Status post right hip reconstruction surgery. 3. End-stage renal disease, on hemodialysis. 4. Coagulopathy. 5. Anemia. 6. Cardiac cirrhosis. PLAN: 1. Her anticoagulant is on hold, rather not to be given because of high incidence of bleeding, coagulopathy, esophageal varices and gastrointestinal arteriovenous malformations. 2. She is advised to ambulate and do bedside exercises. 3. Since patient's hemoglobin is stable, she is holding her hemoglobin from 9.1 to 8.5 today. No more active bleeding, so she is being transferred to [facility] again. We will be closely watching for gastrointestinal bleed. Shawn Gomez MD
== END 2017-10-16 20:13 | DRG 377 ==
LOC: ED 09:29 → ERH 11:59 → 3RSO 17:36
PROVIDERS: ADMIT Internal Medicine; ATTEND Internal Medicine
PROC: 30233N1 Transfusion of Nonautologous Red Blood Cells into Peripheral Vein, Percutaneous Approach (ICD-10-PCS; 2017-10-10)
PROC: 5A1D70Z Performance of Urinary Filtration, Intermittent, Less than 6 Hours Per Day (ICD-10-PCS; 2017-10-12)
PROC: 0DJ08ZZ Inspection of Upper Intestinal Tract, Via Natural or Artificial Opening Endoscopic (ICD-10-PCS; principal; 2017-10-13 13:30)
PROC: 5A1D70Z Performance of Urinary Filtration, Intermittent, Less than 6 Hours Per Day (ICD-10-PCS; 2017-10-14)
DX: K92.1 Melena (principal); N18.6 End stage renal disease; I13.2 Hypertensive heart and chronic kidney disease with heart failure and with stage 5 chronic kidney disease, or end stage renal disease; D68.4 Acquired coagulation factor deficiency; L03.116 Cellulitis of left lower limb; K86.1 Other chronic pancreatitis; N25.81 Secondary hyperparathyroidism of renal origin; I42.9 Cardiomyopathy, unspecified; K76.6 Portal hypertension; I85.10 Secondary esophageal varices without bleeding; K74.60 Unspecified cirrhosis of liver; I67.1 Cerebral aneurysm, nonruptured; I27.20 Pulmonary hypertension, unspecified; K76.1 Chronic passive congestion of liver; I07.1 Rheumatic tricuspid insufficiency; J44.9 Chronic obstructive pulmonary disease, unspecified; H54.62 Unqualified visual loss, left eye, normal vision right eye; K31.89 Other diseases of stomach and duodenum; I25.10 Atherosclerotic heart disease of native coronary artery without angina pectoris; I50.9 Heart failure, unspecified; D63.1 Anemia in chronic kidney disease; R04.0 Epistaxis; K21.9 Gastro-esophageal reflux disease without esophagitis; K22.70 Barrett's esophagus without dysplasia; K29.70 Gastritis, unspecified, without bleeding; Z96.643 Presence of artificial hip joint, bilateral; F17.210 Nicotine dependence, cigarettes, uncomplicated; D72.829 Elevated white blood cell count, unspecified; Z88.6 Allergy status to analgesic agent; Z91.040 Latex allergy status; Z79.01 Long term (current) use of anticoagulants; Z99.2 Dependence on renal dialysis; Z88.7 Allergy status to serum and vaccine; Z88.9 Allergy status to unspecified drugs, medicaments and biological substances; Z88.2 Allergy status to sulfonamides; Z88.0 Allergy status to penicillin

== ENCOUNTER 2017-11-30 21:53 | Inpatient (IN) | payer BC, MEDICARE ==
--- NOTE | 2017-11-30 22:29 | ED PDOC ---
Arrival/HPI - General Chief Complaint: Shortness Of Breath Time Seen by Provider: 11/30/17 21:56 Historian: Patient - History of Present Illness Narrative History of Present Illness (Text): 11/30/17 22:30 A 57 year old female, whose past medical history includes ESRD on dialysis (T, Th, Sat), pulmonary edema, hypertension, cirrhosis, CHF, COPD, and gastritis, presents to the emergency department complaining of shortness of breath that began this evening. The patient states that her symptoms are not associated with any chest pain. The patient notes that she was dialyzed earlier today. The patient denies fevers, chills, headache, dizziness, chest pain, cough, abdominal pain, nausea, vomiting, diarrhea, back pain, neck pain, urinary/bowel changes, or any other complaint. PMD: Dr. Gomez Time/Duration: Other (Today) Symptom Onset: Sudden Symptom Course: Unchanged Activities at Onset: Rest, Light Context: Home Past Medical History - Provider Review Nursing Documentation Reviewed: Yes - Past History Past History: Non-Contributing - Infectious Disease Hx of Infectious Diseases: None - Tetanus Immunization Tetanus Immunization: Up to Date - Cardiac Hx Cardiac Disorders: Yes Hx Congestive Heart Failure: Yes Hx Hypertension: Yes - Pulmonary Hx Respiratory Disorders: Yes Hx Chronic Obstructive Pulmonary Disease (COPD): Yes - Neurological Hx Neurological Disorder: No - HEENT Hx HEENT Disorder: Yes Hx Blind: Yes (partial, left eye) - Renal Hx Renal Disorder: Yes Hx Dialysis: Yes Type of Dialysis Access: LUE fistula Date of Last Dialysis Treatment: 11/30/17 Hx Renal Failure: Yes (Hemodialysis (T, TH,Sat)-SHUNT LEFT UPPER ARM.) - Endocrine/Metabolic Hx Endocrine Disorders: Yes (parathyroid) - Hematological/Oncological Hx Blood Disorders: Yes Hx Blood Transfusions: Yes Hx Blood Transfusion Reaction: No - Integumentary Hx Dermatological Disorder: Yes (LEFT UPPER ARM SHUNT) Other/Comment: CALCIPHYLAXIS-DRY ROUND RASH ALL OVER HER BODY,ARMS,LEG. BILATERAL LEG EDEMA +3,SKIN TIGHTNESS,DISCOLORED DARK BROWN SKIN.TIGHT. - Musculoskeletal/Rheumatological Hx Musculoskeletal Disorders: Yes Hx Falls: Yes Hx Unsteady Gait: Yes (CANE,ROLLING WALKER) - Gastrointestinal Hx Gastrointestinal Disorders: Yes (GI BLEED,SBO,APPENDICITIS,INGRAM'S ESOPHAGUS) - Genitourinary/Gynecological Hx Genitourinary Disorders: Yes (OLIGURIA) - Psychiatric Hx Psychophysiologic Disorder: Yes (SMOKED CIGARETTES QUIT ) Hx Substance Use: No - Surgical History Hx Cholecystectomy: Yes Hx Orthopedic Surgery: Yes (bilateral hips) Other/Comment: left arm fistula , c-sectionx2, tonsilectomy - Anesthesia Hx Anesthesia Reactions: No Hx Malignant Hyperthermia: No - Suicidal Assessment Feels Threatened In Home Enviroment: No Family/Social History - Physician Review Nursing Documentation Reviewed: Yes Family/Social History: No Known Family HX Smoking Status: Light Smoker < 10 Cigarettes Daily Hx Alcohol Use: No Hx Substance Use: No Hx Substance Use Treatment: No Allergies/Home Meds Allergies/Adverse Reactions: Allergies aspirin Allergy (Severe, Verified 09/29/17 23:18) ANAPHYLAXIS ciprofloxacin Allergy (Severe, Verified 10/10/17 09:52) ANAPHYLAXIS Bladen And Derivatives Allergy (Severe, Verified 10/10/17 09:52) ANAPHYLAXIS enalapril Allergy (Severe, Verified 10/10/17 09:52) HIVES heparin Allergy (Severe, Verified 10/10/17 09:52) ANAPHYLAXIS latex Allergy (Severe, Verified 10/10/17 09:52) ANAPHYLAXIS Penicillins Allergy (Severe, Verified 10/10/17 09:52) ANAPHYLAXIS Sulfa (Sulfonamide Antibiotics) Allergy (Severe, Verified 10/10/17 09:52) ANAPHYLAXIS levothyroxine sodium [From Levoxyl] Allergy (Intermediate, Verified 10/10/17 09: 52) RASH acetaminophen Allergy (Mild, Verified 10/10/17 09:52) RASH codeine Allergy (Mild, Verified 10/10/17 09:52) RASH enoxaparin Allergy (Mild, Verified 10/10/17 09:52) RASH iodine Allergy (Mild, Verified 10/10/17 09:52) RASH influenza virus vaccine, specific Allergy (Verified 10/10/17 09:52) hives Home Medications: Home Meds Medication Instructions Recorded Confirmed Cinacalcet [Sensipar] 30 mg PO DAILY 08/30/17 10/10/17 Esomeprazole Magnesium [Nexium] 40 mg PO DAILY 08/30/17 10/10/17 Ammonium Lactate 12% [Lac-Hydrin 1 applic TOP DAILY 10/10/17 10/10/17 12% Cream (140 g)] Bacitracin, Micronized [Bacitracin] 1 gm MC DAILY 10/10/17 10/10/17 HYDROmorphone [Dilaudid 2 mg Tab] 2 mg PO HS 10/10/17 10/10/17 HYDROmorphone [Dilaudid] 1 mg PO Q4H PRN 10/10/17 10/10/17 Levalbuterol [Xopenex] 1.25 mg IH Q6H 10/10/17 10/10/17 Sevelamer [Renagel] 800 mg PO DAILY 10/10/17 10/10/17 traMADol [Ultram] 50 mg PO Q8H PRN 10/10/17 10/10/17 Review of Systems - Physician Review All systems were reviewed & negative as marked: Yes - Review of Systems Constitutional: absent: Fevers, Night Sweats Respiratory: SOB. absent: Cough Cardiovascular: absent: Chest Pain, HERBERT Gastrointestinal: absent: Abdominal Pain, Stool Changes, Diarrhea, Nausea, Vomiting Genitourinary Female: absent: Urine Output Changes Musculoskeletal: absent: Back Pain, Neck Pain Neurological: absent: Headache, Dizziness Physical Exam Vital Signs Reviewed: Yes Vital Signs Temp Pulse Resp BP Pulse Ox 12/01/17 00:28 91 H 18 147/75 97 11/30/17 22:04 97.8 F 97 H 18 140/85 100 Temperature: Afebrile Blood Pressure: Normal Pulse: Tachycardic Respiratory Rate: Normal Appearance: Positive for: Well-Appearing, Non-Toxic, Comfortable Pain Distress: None Mental Status: Positive for: Alert and Oriented X 3 - Systems Exam Head: Present: Atraumatic, Normocephalic Pupils: Present: PERRL Extroacular Muscles: Present: EOMI Conjunctiva: Present: Normal Mouth: Present: Moist Mucous Membranes Neck: Present: Normal Range of Motion Respiratory/Chest: Present: Decreased Breath Sounds (Slightly decreased breath sounds bilaterally. ) Cardiovascular: Present: Regular Rate and Rhythm, Normal S1, S2. No: Murmurs Abdomen: No: Tenderness, Distention, Peritoneal Signs Back: Present: Normal Inspection Upper Extremity: Present: Normal Inspection. No: Cyanosis, Edema Lower Extremity: Present: Edema (2+ lower extremity edema bilaterally. ) Neurological: Present: GCS=15, CN II-XII Intact, Speech Normal Skin: Present: Warm, Dry, Normal Color. No: Rashes Psychiatric: Present: Alert, Oriented x 3, Normal Insight, Normal Concentration Medical Decision Making ED Course and Treatment: 11/30/17 22:34 Impression: A 57 year old female presents to the emergency department complaining of shortness of breath this evening. Plan: -- EKG -- Chest X-ray -- Labs -- Reassess and disposition Progress Notes: EKG: Ordered, reviewed, and independently interpreted the EKG. Rate : 97 BPM Rhythm : NSR Interpretation : LAD,LVH, lateral ST-T changes. Comparison : Unchanged from 10/11/17 12/01/17 01:02: Case discussed in detail with Dr. Gomez who accepts patient to her service. Requests Dr. Rose (Nephrology) on consult. - Lab Interpretations Lab Results: 11/30/17 22:20 11/30/17 22:20 Lab Results 11/30/17 22:20: WBC 7.8, RBC 4.57, Hgb 11.9 L D, Hct 39.5, MCV 86.4, MCH 26.0, MCHC 30.1 L, RDW 16.0 H, Plt Count 103 L, MPV 10.1 11/30/17 22:20: Sodium 139, Potassium 3.9, Chloride 96 L, Carbon Dioxide 28, Anion Gap 20, BUN 17, Creatinine 3.6 H, Est GFR ( Amer) 16, Est GFR (Non- Af Amer) 13, Random Glucose 88, Calcium 10.1, Total Bilirubin 2.7 H, AST 16, ALT 14, Alkaline Phosphatase 492 H D, Lactate Dehydrogenase 372, Total Creatine Kinase 36, Troponin I 0.06 D, NT-Pro-B Natriuret Pep > 49798 H, Total Protein 6.5, Albumin 3.6, Globulin 2.9, Albumin/Globulin Ratio 1.2 11/30/17 22:20: PT 15.0 H, INR 1.31 H, APTT 30.2 I have reviewed the lab results: Yes - RAD Interpretation Radiology Orders: 12/01/17 00:09 CHEST PORTABLE [RAD] Stat - EKG Interpretation Interpreted by ED Physician: Yes Type: 12 lead EKG - Medication Orders Current Medication Orders: Discontinued Medications Furosemide (Lasix) 40 mg IVP ONCE ONE Stop: 12/01/17 00:48 - Scribe Statement The provider has reviewed the documentation as recorded by the Scribe Rivka Hernandez Provider Scribe Attestation: All medical record entries made by the Debraibmarek were at my direction and personally dictated by me. I have reviewed the chart and agree that the record accurately reflects my personal performance of the history, physical exam, medical decision making, and the department course for this patient. I have also personally directed, reviewed, and agree with the discharge instructions and disposition. Disposition/Present on Arrival - Present on Arrival Any Indicators Present on Arrival: No History of DVT/PE: No History of Uncontrolled Diabetes: No Urinary Catheter: No History of Decub. Ulcer: No History Surgical Site Infection Following: None - Disposition Have Diagnosis and Disposition been Completed?: Yes Diagnosis: CHF (congestive heart failure), End stage renal failure on dialysis Disposition: HOSPITALIZED Disposition Time: 01:05 Patient Plan: Observation Condition: STABLE Discharge Instructions (ExitCare): Heart Failure (ED)
[2017-11-30 22:41] LABS: HEMOGLOBIN 11.9 g/dL (12.0-16.0); MEAN CELL VOLUME 86.4 fl (80.0-105.0); MEAN CORPUSCULAR HGB CONC 30.1 g/dl (31.0-37.0); MEAN PLATELET VOLUME 10.1 fl (7.0-11.0); RBC 4.57 10^6/uL (3.5-6.1); WHITE BLOOD COUNT 7.8 10^3/ul (4.5-11.0)
[2017-11-30 22:49] LABS: INR 1.31 (0.93-1.08); PARTIAL THROMBOPLASTIN TIME 30.2 Seconds (25.1-36.5)
[2017-11-30 22:52] LABS: ALB/GLOB RATIO 1.2 (1.1-1.8); ALBUMIN 3.6 g/dL (3.0-4.8); ALT/SGPT 14 U/L (7-56); AST/SGOT 16 U/L (14-36); BLOOD UREA NITROGEN 17 mg/dL (7-21); CALCIUM 10.1 mg/dL (8.4-10.5); GFR AFRICAN-AMERICAN 16; GFR NON-AFRICAN AMERICAN 13
[2017-11-30 23:14] LABS: B-TYPE NATRIURETIC PEPTIDE > 35000 pg/mL (0-450)
[2017-11-30 23:37] LABS: TROPONIN I 0.06 ng/mL
[2017-12-01] MEDS ORDERED: Oxycodone/Acetaminophen 5/325 mg Tab ONE (02:23)
[2017-12-01] MEDS ORDERED: Oxycodone/Acetaminophen 5/325 mg Tab PO STA (02:26)
[2017-12-01 06:16] VITALS: BMI 21.6
--- NOTE | 2017-12-01 08:45 | RAD ---
HISTORY: Shortness of breath. COMPARISON: 10/11/2017. FINDINGS: LUNGS: Persistent albeit improving pulmonary vascular congestion. PLEURA: No significant pleural effusion identified, no pneumothorax apparent. CARDIOVASCULAR: Cardiomegaly/improving CHF. Subclavian stent again identified on the left. OSSEOUS STRUCTURES: No significant abnormalities. VISUALIZED UPPER ABDOMEN: Normal. OTHER FINDINGS: None. IMPRESSION: Cardiomegaly/mild CHF overall improved compared to the prior study
--- NOTE | 2017-12-01 09:11 | CARD ---
APPROVED REPORT EKG Measurement Heart [id number] <Conclusion> Normal sinus rhythm Left axis deviation Voltage criteria for left ventricular hypertrophy ST & T wave abnormality, consider lateral ischemia Abnormal ECG
[2017-12-01 09:29] LABS: ALB/GLOB RATIO 1.2 (1.1-1.8); ALBUMIN 3.3 g/dL (3.0-4.8); CALCIUM 10.1 mg/dL (8.4-10.5)
[2017-12-01] MEDS ORDERED: BACITRACIN MC SCH (10:00)
[2017-12-01] MEDS ORDERED: Ammonium Lactate 12% Cream (140 g) TOP SCH ×3 (10:00→10:29)
[2017-12-01] MEDS ORDERED: Non Formulary Medication (Esomeprazole Magnesium [Nexium] 40 MG) PO SCH (10:00)
[2017-12-01] MEDS ORDERED: Pantoprazole 40 mg EC Tab PO SCH ×2 (10:00)
[2017-12-01] MEDS: Metoprolol Succinate 25 mg XL Tab PO SCH (10:14)
[2017-12-01] MEDS: Bacitracin 500 Units/gm Oint Foilpak UD TOP SCH (10:17)
[2017-12-01] MEDS: Levalbuterol 1.25 MG/3 ML Inhal Soln UD IH SCH ×3 (10:22→19:33)
--- NOTE | 2017-12-01 19:58 | HP ---
HISTORY OF PRESENT ILLNESS: Patient is 57 years old, who had hemodialysis yesterday. She states she became short of breath and was unable to catch her breath, so she came to the emergency room for further evaluation. She denies any fever or chills. No history of nausea or vomiting. She has no hemoptysis. No hematemesis. No blood stools. No chest pain, but shortness of breath. PAST MEDICAL HISTORY: She has significant past medical history for, 1. COPD. 2. Peptic ulcer disease. 3. History of AVM and GI bleed in the past. 4. Chronic allergic rhinitis. 5. End-stage renal disease, on hemodialysis. 6. History of pericardial effusion, status post pericardial window. 7. Status post left AV shunt. 8. Recent right hip reconstruction surgery. ALLERGY: PATIENT HAS MULTIPLE ALLERGIES INCLUDING ASPIRIN, CIPRO, ENALAPRIL, HEPARIN, LATEX, PENICILLIN, SULFA, LEVOTHYROXINE, ACETAMINOPHEN, CODEINE, LOVENOX, IODINE, AND FLU VACCINE. MEDICATION AT HOME: She is on Claritin 10 mg daily, Dilaudid 1 mg every 6 hours p.r.n., atorvastatin 80 mg daily, Protonix 40 daily, Renagel 800 t.i.d., metoprolol 25 mg daily, and Xopenex as needed. PHYSICAL EXAMINATION: GENERAL: She is awake, alert, oriented, and communicative. VITAL SIGNS: She is afebrile, pulse 72, respirations 19, blood pressure 141/89. LUNGS: Bilateral good airflow. No rhonchi or crackles. HEART: S1, S2 audible. ABDOMEN: Soft, nontender. No rebound. No guarding. NEUROLOGIC: She is awake, alert, oriented, and able to communicative. EXTREMITIES: Bilateral leg, no edema and she has recent right hip surgery. There is induration in that area, no erythema. LABORATORY EXAM: WBC is 7.8, hemoglobin 11.9, hematocrit 39.5, platelets of 103. PT 15, INR 1.31. Chemistry: Sodium 140, potassium 3.7, chloride 96, CO2 of 29, BUN 20, creatinine 4.1, blood sugar of 110. BNP is 35,000. She had x-ray chest done that shows CHF pattern. ASSESSMENT: 1. Chronic obstructive pulmonary disease exacerbation. 2. Congestive heart failure exacerbation. 3. Pulmonary edema, [id number]. 4. End-stage renal disease, on hemodialysis. 5. Chronic anemia. PLAN: We will start the patient on Xopenex and give a small dose of steroids, Protonix, out of bed to chair, encourage ambulation. If patient remains stable, she will be discharged tomorrow after hemodialysis. Shawn Gomez MD
[2017-12-01] MEDS: MethylPREDNISolone 40 mg Vial IV SCH (21:43)
[2017-12-02] MEDS: Levalbuterol 1.25 MG/3 ML Inhal Soln UD IH SCH ×4 (01:04→14:00)
[2017-12-02 03:24] VITALS: O2SAT 98
[2017-12-02] MEDS ORDERED: Pantoprazole 40 mg EC Tab PO SCH (07:30)
[2017-12-02] MEDS: Bacitracin 500 Units/gm Oint Foilpak UD TOP SCH (09:28)
[2017-12-02] MEDS: MethylPREDNISolone 40 mg Vial IV SCH (09:28)
[2017-12-02] MEDS: Metoprolol Succinate 25 mg XL Tab PO SCH (09:28)
[2017-12-02 13:43] LABS: BASO # 0.01 K/mm3 (0.0-2.0); BASO % 0.1 % (0.0-3.0); EOS % 0.3 % (1.5-5.0); HEMOGLOBIN 11.8 g/dL (12.0-16.0); LYMPH # 0.4 (1.2-3.4); LYMPH % 6.3 % (22.0-35.0); MEAN CELL VOLUME 86.2 fl (80.0-105.0); MEAN CORPUSCULAR HEMOGLOBIN 26.3 pg (25.0-35.0); MEAN CORPUSCULAR HGB CONC 30.5 g/dl (31.0-37.0); MEAN PLATELET VOLUME 9.8 fl (7.0-11.0); MONO # 0.2 (0.1-0.6); MONO % 2.3 % (1.0-6.0); PLATELET COUNT 100 10^3/uL (120.0-450.0); RBC 4.49 10^6/uL (3.5-6.1); RED CELL DISTRIBUTION WIDTH 16.1 % (11.5-14.5)
[2017-12-02 13:51] LABS: ALB/GLOB RATIO 1.3 (1.1-1.8); ALBUMIN 3.6 g/dL (3.0-4.8); CALCIUM 9.2 mg/dL (8.4-10.5)
[2017-12-02 14:18] LABS: LYMPHOCYTE 8 % (22.0-35.0); MONOCYTE 2 % (1.0-6.0); NEUTROPHIL 90 % (50.0-70.0)
[2017-12-02 17:56] VITALS: BP 140/70; PULSE 80; RESP 20; TEMP 97.5
--- NOTE | 2017-12-02 23:03 | CON ---
DATE: 12/02/2017 REASON FOR CONSULTATION: Lower extremity pain, lower extremity swelling, dyspnea on exertion. HISTORY OF PRESENT ILLNESS: A 57-year lady known to me from outpatient hemodialysis. The patient was admitted to the hospital on 11/30, post dialysis. The patient reported dyspnea on exertion. Shortness of breath. She complains of pain in her feet. She also complains of severe pain in her right leg. She denies any nausea or vomiting. She denies any fevers or chills. She denies any chest pain. PAST MEDICAL AND SURGICAL HISTORY: COPD, hypertension, end-stage renal disease, remote history of pericardial effusion, recent right hip replacement. FAMILY HISTORY: Noncontributory. SOCIAL HISTORY: Smoker, no alcohol use, no IV drug abuse. ALLERGIES: ASPIRIN, CIPRO, ENALAPRIL, HEPARIN, PENICILLIN, SYNTHROID, TYLENOL, AND LOVENOX. REVIEW OF SYSTEMS: All systems are reviewed, pertinent positives are mentioned in the history of presenting illness, rest unremarkable. MEDICATIONS AT HOME: List reviewed. PHYSICAL EXAMINATION: GENERAL: Middle-aged lady, lying in bed, in modest respiratory distress. VITAL SIGNS: Blood pressure 143/78, heart rate 85, respiratory rate 18, and temperature 97.9. HEENT: Normocephalic, atraumatic. NECK: Supple, no JVD. LUNGS: Bilateral equal air entry, bilateral rhonchi, minimal basilar rales. CARDIAC: S1 and S2, regular rate and rhythm, no murmur, no rub. ABDOMEN: Soft, nondistended, nontender, bowel sounds present. EXTREMITIES: Erythema of the lower extremities, 2+ pitting edema. LABORATORY DATA: WBC 7.8, hemoglobin 11.9, hematocrit 40, and platelets 103. Sodium 140, potassium 3.7, chloride 96, CO2 of 29. BUN 20, creatinine 4.1. Glucose 110, calcium 10.1, phosphorus 3.7, magnesium 2. BNP 475,000. CURRENT MEDICATIONS: Claritin, Dilaudid, Lipitor, Protonix, Renagel, cinacalcet, Solu-Medrol, Toprol XL, Xopenex. ASSESSMENT AND PLAN: 1. Decompensated congestive heart failure. 2. Volume overload. 3. End-stage renal disease. 4. History of gastrointestinal bleed. 5. Recent right hip replacement. 6. Cardiomyopathy, mildly decreased ejection fraction 45% to 50%. 7. Pulmonary hypertension. PLAN: 1. Dialysis today. 2. Increased ultrafiltration on dialysis. 3. Reduced dry weight. 4. Respiratory treatments for COPD. Mansi Rose MD
--- NOTE | 2017-12-03 06:10 | DS ---
HISTORY OF PRESENT ILLNESS: The patient is a 57-year-old, seen and examined, came in because of increasing shortness of breath, seems to be doing well. PHYSICAL EXAMINATION: VITAL SIGNS: She is afebrile, pulse 94, respirations 20, blood pressure 144/86. LUNGS: Bilateral good airflow. No rhonchi or crackle. HEART: S1, S2 audible. ABDOMEN: Soft, nontender. No rebound. No guarding. NEUROLOGIC: Patient is awake, alert, oriented and communicative. LABORATORY EXAM: Sodium 140, potassium 3.7, chloride 96, CO2 of 29, BUN 20, creatinine 4.1. Blood sugar of 110. ASSESSMENT: 1. Status post chronic obstructive pulmonary disease exacerbation, seems to be improving. 2. History of pulmonary hypertension. 3. History of gastrointestinal bleed secondary to arteriovenous malformations. 4. Pulmonary edema. 5. Status post right hip reconstruction surgery. PLAN: Patient is clinically stable, will get hemodialysis and be discharged after hemodialysis. Shawn Gomez MD
== END 2017-12-02 18:08 | disposition home or self-care (01) | DRG 190 ==
LOC: ED 21:53 → ERH 12-01 00:59 → 2RNO 12-01 02:51 → OBSVTOIN 12-01 15:20
PROVIDERS: ADMIT Internal Medicine; ATTEND Internal Medicine
PROC: 5A1D70Z Performance of Urinary Filtration, Intermittent, Less than 6 Hours Per Day (ICD-10-PCS; principal; 2017-12-02)
DX: J44.1 Chronic obstructive pulmonary disease with (acute) exacerbation (principal); N18.6 End stage renal disease; I13.2 Hypertensive heart and chronic kidney disease with heart failure and with stage 5 chronic kidney disease, or end stage renal disease; I42.9 Cardiomyopathy, unspecified; I27.20 Pulmonary hypertension, unspecified; D64.9 Anemia, unspecified; F17.200 Nicotine dependence, unspecified, uncomplicated; H54.7 Unspecified visual loss; I50.9 Heart failure, unspecified; K74.60 Unspecified cirrhosis of liver; Z87.11 Personal history of peptic ulcer disease; Z90.49 Acquired absence of other specified parts of digestive tract; Z96.641 Presence of right artificial hip joint; Z99.2 Dependence on renal dialysis

== ENCOUNTER 2017-12-11 11:11 | Emergency (ER) | payer MEDICARE ==
[2017-12-11 11:44] VITALS: BMI 19.6
[2017-12-11 11:46] VITALS: BP 113/74
--- NOTE | 2017-12-11 12:13 | ED PDOC ---
Arrival/HPI - General Historian: Patient <Seelna Bonilla - Last Filed: 12/11/17 12:13> <Evan Barron DO - Last Filed: 12/11/17 18:23> - General Chief Complaint: Abdominal Pain Time Seen by Provider: 12/11/17 11:30 - History of Present Illness Narrative History of Present Illness (Text): 12/11/17 12:07 Patient is a 57 year old female with a past medical history of ESRD on HD (Mon), pulmonary HTN, GI AVM with history of bleed, and COPD, who presents to the ED complaining of epigastric abdominal pain. Patient says this started last night before she went to bed. She says it came on gradually and describes it as sharp, constant, and 8 out of 10 in intensity. Patient denies any remitting or exacerbating factors and says it has not changed in quality since it started. Patient says she had a normal BM this morning without hematochezia or melena. She admits to associated weakness, nausea, body aches, and frontal headache. Patient also admits to lower extremity swelling but says this is not new and has noticed it more since her right hip replacement on 09/19/17. She denies fever , chills, vomiting, diarrhea, constipation, sore throat, cough, nasal/chest congestion, chest pain, SOB, dysuria, frequency, urgency, and calf pain. (Selena Bonilla) Past Medical History - Past History Past History: Non-Contributing - Infectious Disease Hx of Infectious Diseases: None - Tetanus Immunization Tetanus Immunization: Up to Date - Cardiac Hx Cardiac Disorders: Yes Hx Congestive Heart Failure: Yes Hx Hypertension: Yes - Pulmonary Hx Respiratory Disorders: Yes Hx Chronic Obstructive Pulmonary Disease (COPD): Yes - Neurological Hx Neurological Disorder: No - HEENT Hx HEENT Disorder: Yes Hx Blind: Yes (partial, left eye) - Renal Hx Renal Disorder: Yes Hx Dialysis: Yes Date of Last Dialysis Treatment: 11/30/17 Hx Renal Failure: Yes (Hemodialysis (, ,Mon)-SHUNT LEFT UPPER ARM.) - Endocrine/Metabolic Hx Endocrine Disorders: Yes (parathyroid) - Hematological/Oncological Hx Blood Disorders: Yes - Integumentary Hx Dermatological Disorder: Yes (LEFT UPPER ARM SHUNT) Other/Comment: CALCIPHYLAXIS-DRY ROUND RASH ALL OVER HER BODY,ARMS,LEG. BILATERAL LEG EDEMA +3,SKIN TIGHTNESS,DISCOLORED DARK BROWN SKIN.TIGHT. - Musculoskeletal/Rheumatological Hx Falls: Yes - Gastrointestinal Hx Gastrointestinal Disorders: Yes (GI BLEED,SBO,APPENDICITIS,INGRAM'S ESOPHAGUS) - Genitourinary/Gynecological Hx Genitourinary Disorders: Yes (OLIGURIA) - Psychiatric Hx Psychophysiologic Disorder: Yes (SMOKED CIGARETTES QUIT ) Hx Substance Use: No - Surgical History Hx Cholecystectomy: Yes Hx Orthopedic Surgery: Yes (bilateral hips) Other/Comment: left arm fistula , c-sectionx2, tonsilectomy - Anesthesia Hx Anesthesia Reactions: No Hx Malignant Hyperthermia: No - Suicidal Assessment Feels Threatened In Home Enviroment: No <Selena Bonilla - Last Filed: 12/11/17 12:13> Family/Social History Family/Social History: Diabetes (mother), Neoplasm/Cancer (multiple myeloma ( father)) Smoking Status: Current Some Days Smoker Hx Alcohol Use: No Hx Substance Use: No Hx Substance Use Treatment: No <Selena Bonilla - Last Filed: 12/11/17 12:13> Allergies/Home Meds <Selena Bonilla - Last Filed: 12/11/17 12:13> <Evan Barron DO - Last Filed: 12/11/17 18:23> Allergies/Adverse Reactions: Allergies aspirin Allergy (Severe, Verified 09/29/17 23:18) ANAPHYLAXIS ciprofloxacin Allergy (Severe, Verified 10/10/17 09:52) ANAPHYLAXIS [place] And Derivatives Allergy (Severe, Verified 10/10/17 09:52) ANAPHYLAXIS enalapril Allergy (Severe, Verified 10/10/17 09:52) HIVES heparin Allergy (Severe, Verified 10/10/17 09:52) ANAPHYLAXIS latex Allergy (Severe, Verified 10/10/17 09:52) ANAPHYLAXIS Penicillins Allergy (Severe, Verified 10/10/17 09:52) ANAPHYLAXIS Sulfa (Sulfonamide Antibiotics) Allergy (Severe, Verified 10/10/17 09:52) ANAPHYLAXIS levothyroxine sodium [From Levoxyl] Allergy (Intermediate, Verified 10/10/17 09: 52) RASH acetaminophen Allergy (Mild, Verified 10/10/17 09:52) RASH codeine Allergy (Mild, Verified 10/10/17 09:52) RASH enoxaparin Allergy (Mild, Verified 10/10/17 09:52) RASH iodine Allergy (Mild, Verified 10/10/17 09:52) RASH influenza virus vaccine, specific Allergy (Verified 10/10/17 09:52) hives Home Medications: Home Meds Medication Instructions Recorded Confirmed Cinacalcet [Sensipar] 30 mg PO DAILY 08/30/17 12/11/17 Esomeprazole Magnesium [Nexium] 40 mg PO DAILY 08/30/17 12/11/17 Ammonium Lactate 12% [Lac-Hydrin 1 applic TOP DAILY 10/10/17 12/11/17 12% Cream (140 g)] Bacitracin, Micronized [Bacitracin] 1 gm MC DAILY 10/10/17 12/11/17 HYDROmorphone [Dilaudid 2 mg Tab] 2 mg PO HS 10/10/17 12/11/17 HYDROmorphone [Dilaudid] 1 mg PO Q4H PRN 10/10/17 12/11/17 Levalbuterol [Xopenex] 1.25 mg IH Q6H 10/10/17 12/11/17 Sevelamer [Renagel] 800 mg PO DAILY 10/10/17 12/11/17 traMADol [Ultram] 50 mg PO Q8H PRN 10/10/17 12/11/17 Review of Systems - Review of Systems Constitutional: Fatigue. absent: Fevers Eyes: Normal ENT: Normal. absent: Sore Throat, Rhinorrhea, Sinus Congestion Respiratory: Normal. absent: SOB, Cough Cardiovascular: Edema. absent: Chest Pain, Palpitations, Calf Pain, HERBERT Gastrointestinal: Abdominal Pain (epigastric), Nausea. absent: Stool Changes, Constipation, Diarrhea, Vomiting, Hematochezia, Hematemesis Genitourinary Female: absent: Dysuria, Frequency, Hematuria Musculoskeletal: Arthralgias (right hip pain s/p replacement in Sep 2017) Skin: Normal. absent: Rash Neurological: Headache (frontal) Endocrine: Normal Hemo/Lymphatic: Normal Psychiatric: Normal <Selena Bonilla - Last Filed: 12/11/17 12:13> Physical Exam - Systems Exam Head: Present: Atraumatic, Normocephalic Pupils: Present: PERRL Extroacular Muscles: Present: EOMI Conjunctiva: Present: Normal Mouth: Present: Moist Mucous Membranes Pharnyx: Present: Normal Neck: Present: Normal Range of Motion Respiratory/Chest: Present: Clear to Auscultation, Good Air Exchange. No: Respiratory Distress, Accessory Muscle Use Cardiovascular: Present: Regular Rate and Rhythm, Murmurs (systolic heard best at the apex), Normal S1, S2 Abdomen: Present: Tenderness (epigastric, RUQ, LUQ, and mild LLQ), Normal Bowel Sounds, Guarding (voluntary). No: Distention, Peritoneal Signs Upper Extremity: Present: Other (AVF of left arm) Lower Extremity: Present: Edema (2+ pitting). No: CALF TENDERNESS Neurological: Present: GCS=15, Speech Normal Skin: Present: Warm, Dry, Other (healed leasions on both arms that patient attributes to hyperphosphatemia). No: Rashes Psychiatric: Present: Alert, Oriented x 3, Normal Insight, Normal Concentration <Selena Bonilla - Last Filed: 12/11/17 12:13> Vital Signs Temp Pulse Resp BP Pulse Ox 12/11/17 14:22 98.2 F 91 H 19 99 12/11/17 11:45 98.8 F 95 H 18 113/74 98 - Lab Interpretations Lab Results: 12/11/17 13:23 12/11/17 13:23 Lab Results 12/11/17 13:23: Sodium 137, Potassium 3.7, Chloride 96 L, Carbon Dioxide 28, Anion Gap 17, BUN 28 H, Creatinine 4.7 H, Est GFR ( Amer) 12, Est GFR ( Non-Af Amer) 10, Random Glucose 124 H, Calcium 9.5, Magnesium 2.0, Total Bilirubin 2.6 H, AST 25, ALT 21, Alkaline Phosphatase 409 H, Lactate Dehydrogenase 366, Total Creatine Kinase 23 L, Troponin I 0.05, NT-Pro-B Natriuret Pep 768253 H, Total Protein 6.2, Albumin 3.3, Globulin 2.9, Albumin/ Globulin Ratio 1.2, Lipase 16 L 12/11/17 13:23: PT 13.6 H, INR 1.19 H, APTT 28.8 12/11/17 13:23: WBC 7.6, RBC 4.43, Hgb 11.6 L, Hct 37.7, MCV 85.1, MCH 26.2, MCHC 30.8 L, RDW 16.1 H, Plt Count 97 L, MPV 10.1, Gran % 84.7 H, Lymph % (Auto ) 8.7 L, Dale % (Auto) 6.1 H, Eos % (Auto) 0.4 L, Baso % (Auto) 0.1, Gran # 6.41 , Lymph # (Auto) 0.7 L, Dale # (Auto) 0.5, Eos # (Auto) 0.0, Baso # (Auto) 0.01 - RAD Interpretation Radiology Orders: 12/11/17 11:57 ABD & PELVIS W/O PO OR IV CONT [CT] Stat - Medication Orders Current Medication Orders: Discontinued Medications Ondansetron HCl (Zofran Inj) 4 mg IVP STAT STA Stop: 12/11/17 11:58 Last Admin: 12/11/17 12:51 Dose: 4 mg IVP Administration Document 12/11/17 12:51 [email or web address] (Rec: 12/11/17 12:51 [email or web address] [id number]) Charges for Administration # of IVP Administrations 1 Pantoprazole Sodium (Protonix Inj) 40 mg IVP STAT STA Stop: 12/11/17 11:58 Last Admin: 12/11/17 12:51 Dose: 40 mg IVP Administration Document 12/11/17 12:51 [email or web address] (Rec: 12/11/17 12:51 [email or web address] [id number]) Charges for Administration # of IVP Administrations 1 Disposition/Present on Arrival - Present on Arrival History of DVT/PE: No History of Uncontrolled Diabetes: No Urinary Catheter: No History of Decub. Ulcer: No History Surgical Site Infection Following: None <Selena Bonilla - Last Filed: 12/11/17 12:13> - Present on Arrival Any Indicators Present on Arrival: No - Disposition Have Diagnosis and Disposition been Completed?: Yes Disposition Time: 13:50 <Evan Barron DO - Last Filed: 12/11/17 18:23> - Disposition Diagnosis: Abdominal pain Disposition: HOME/ ROUTINE Condition: GOOD Discharge Instructions (ExitCare): Acute Abdomen (Belly Pain) Additional Instructions: Thank you for letting us take care of you today. The emergency medical care you received today was directed at your acute symptoms. If you were prescribed any medication, please fill it and take as directed. It may take several days for your symptoms to resolve. Return to the Emergency Department if your symptoms worsen, do not improve, or if you have any other problems. Please contact your doctor or call one of the physicians/clinics you have been referred to that are listed on the Patient Visit Information form that is included in your discharge packet. Bring any paperwork you were given at discharge with you along with any medications you are taking to your follow up visit. Our treatment cannot replace ongoing medical care by a primary care provider (PCP) outside of the emergency department. Thank you for allowing the [facility] team to be part of your care today. Follow up with your primary doctor in 2-3 days for re-evaluation and further management. Prescriptions: Ondansetron ODT [Zofran ODT] 8 mg PO Q8 PRN #20 odt PRN Reason: Nausea/Vomiting Referrals: Shawn Gomez MD [Family Provider] - Follow up with primary Forms: [employer] (Montenegrin)
--- NOTE | 2017-12-11 13:09 | CT ---
PROCEDURE: CT Abdomen and Pelvis without intravenous contrast HISTORY: abdominal pain, hx GI AVM COMPARISON: None. TECHNIQUE: Without contrast.. Contrast Dose: Radiation dose: Total exam DLP = Total exam DLP = 273 mGy-cm. This CT exam was performed using one or more of the following dose reduction techniques: Automated exposure control, adjustment of the mA and/or kV according to patient size, and/or use of iterative reconstruction technique. FINDINGS: LOWER THORAX: Unremarkable. LIVER: Unremarkable. No gross lesion or ductal dilatation. GALLBLADDER AND BILE DUCTS: Gallbladder removed PANCREAS: Unremarkable. No gross lesion or ductal dilatation. SPLEEN: Unremarkable. ADRENALS: Unremarkable. No mass. KIDNEYS AND URETERS: There is bilateral renal atrophy. There is a 2.7 cm solid lesion arising from the lower pole of the left kidney. This measures 40 Hounsfield units in density. This probably represents a complex cyst. In retrospect the finding can be seen on the previous study dated 06/22/2017 and is unchanged in size. VASCULATURE: Unremarkable. No aortic aneurysm. BOWEL: Unremarkable. No obstruction. No gross mural thickening. APPENDIX: Unremarkable. Normal appendix. PERITONEUM: Unremarkable. No free fluid. No free air. Diffuse subcutaneous edema LYMPH NODES: Unremarkable. No enlarged lymph nodes. BLADDER: Unremarkable. REPRODUCTIVE: Unremarkable. BONES: No acute fracture. OTHER FINDINGS: None. IMPRESSION: No acute intra-abdominal findings
[2017-12-11 13:40] LABS: BASO # 0.01 K/mm3 (0.0-2.0); BASO % 0.1 % (0.0-3.0); EOS % 0.4 % (1.5-5.0); GRAN # 6.41 (1.4-6.5); GRAN % 84.7 % (50.0-68.0); HEMOGLOBIN 11.6 g/dL (12.0-16.0); LYMPH # 0.7 (1.2-3.4); LYMPH % 8.7 % (22.0-35.0); MEAN CELL VOLUME 85.1 fl (80.0-105.0); MEAN CORPUSCULAR HEMOGLOBIN 26.2 pg (25.0-35.0); MEAN CORPUSCULAR HGB CONC 30.8 g/dl (31.0-37.0); MEAN PLATELET VOLUME 10.1 fl (7.0-11.0); MONO # 0.5 (0.1-0.6); MONO % 6.1 % (1.0-6.0); RBC 4.43 10^6/uL (3.5-6.1); RED CELL DISTRIBUTION WIDTH 16.1 % (11.5-14.5); WHITE BLOOD COUNT 7.6 10^3/ul (4.5-11.0)
[2017-12-11 13:45] LABS: INR 1.19 (0.93-1.08); PARTIAL THROMBOPLASTIN TIME 28.8 Seconds (25.1-36.5); PROTHROMBIN TIME 13.6 SECONDS (9.4-12.5)
[2017-12-11 13:46] LABS: ALB/GLOB RATIO 1.2 (1.1-1.8); ALBUMIN 3.3 g/dL (3.0-4.8); CALCIUM 9.5 mg/dL (8.4-10.5)
[2017-12-11 14:03] LABS: TROPONIN I 0.05 ng/mL
[2017-12-11 14:22] VITALS: PULSE 91; RESP 19; TEMP 98.2; O2SAT 99
--- NOTE | 2017-12-12 10:03 | CARD ---
APPROVED REPORT EKG Measurement Heart [id number] PA 178P22 [id number] <Conclusion> Normal sinus rhythm Left axis deviation PRWP Left ventricular hypertrophy STTW changes c/w ischemia Prolonged QTc No change
== END 2017-12-11 14:22 | disposition home or self-care (01) ==
LOC: ED 11:11
DX: R10.9 Unspecified abdominal pain (principal); I12.0 Hypertensive chronic kidney disease with stage 5 chronic kidney disease or end stage renal disease; N18.6 End stage renal disease; F17.210 Nicotine dependence, cigarettes, uncomplicated; Z99.2 Dependence on renal dialysis; Z90.49 Acquired absence of other specified parts of digestive tract
CPT/HCPCS: 74176; 80053; 82550; 83615; 83690; 83735; 83880; 84484; 85025; 85610; 85730; 93005; 96374; 96375; 99283; C9113; J2405

== ENCOUNTER 2017-12-21 05:17 | Inpatient (IN) | payer MEDICARE, BC ==
--- NOTE | 2017-12-21 05:56 | ED PDOC ---
Arrival/HPI - General Chief Complaint: Shortness Of Breath Time Seen by Provider: 12/21/17 05:52 Historian: Patient, Spouse - History of Present Illness Narrative History of Present Illness (Text): 12/21/17 05:55 Jacqui Kraus is a 57 year old female, whose past medical history includes ESRD on hemodialysis, hypertension, COPD, chronic anemia, GERD, C. diff, chronic pancreatitis, and small brain aneurysm, who presents to the Emergency department complaining of shortness of breath. Patient states she woke up this morning with worsening shortness of breath. Patient also reports bilateral lower extremity swelling with associated discomfort. Patient reports she is scheduled for hemodialysis later today. Patient denies any fever, chills, nausea , vomiting, diarrhea, urinary symptoms, back pain, neck pain, headache, dizziness, or any other complaints. Symptom Onset: Gradual Symptom Course: Unchanged Activities at Onset: Light Context: Home Past Medical History - Provider Review Nursing Documentation Reviewed: Yes - Past History Past History: Non-Contributing - Infectious Disease Hx of Infectious Diseases: None - Tetanus Immunization Tetanus Immunization: Up to Date - Reproductive Menopause: Yes - Cardiac Hx Cardiac Disorders: Yes Hx Congestive Heart Failure: Yes Hx Hypertension: Yes - Pulmonary Hx Respiratory Disorders: Yes Hx Chronic Obstructive Pulmonary Disease (COPD): Yes - Neurological Hx Neurological Disorder: No - HEENT Hx HEENT Disorder: Yes Hx Blind: Yes (partial, left eye) - Renal Hx Renal Disorder: Yes Hx Dialysis: Yes Date of Last Dialysis Treatment: 11/30/17 Hx Renal Failure: Yes (Hemodialysis (T, TH,Sat)-SHUNT LEFT UPPER ARM.) - Endocrine/Metabolic Hx Endocrine Disorders: Yes (parathyroid) - Hematological/Oncological Hx Blood Disorders: Yes Hx Anemia: Yes - Integumentary Hx Dermatological Disorder: Yes (LEFT UPPER ARM SHUNT) Other/Comment: CALCIPHYLAXIS-DRY ROUND RASH ALL OVER HER BODY,ARMS,LEG. BILATERAL LEG EDEMA +3,SKIN TIGHTNESS,DISCOLORED DARK BROWN SKIN.TIGHT. - Musculoskeletal/Rheumatological Hx Falls: Yes - Gastrointestinal Hx Gastrointestinal Disorders: Yes (GI BLEED,SBO,APPENDICITIS,INGRAM'S ESOPHAGUS) - Genitourinary/Gynecological Hx Genitourinary Disorders: Yes (OLIGURIA) - Psychiatric Hx Psychophysiologic Disorder: Yes (SMOKED CIGARETTES QUIT ) Hx Substance Use: No - Surgical History Hx Section: Yes (x2) Hx Cholecystectomy: Yes Hx Orthopedic Surgery: Yes (bilateral hips 09/24) Hx Tonsillectomy: Yes Other/Comment: left arm fistula/bicep - Anesthesia Hx Anesthesia Reactions: No Hx Malignant Hyperthermia: No - Suicidal Assessment Feels Threatened In Home Enviroment: No Family/Social History - Physician Review Nursing Documentation Reviewed: Yes Family/Social History: Unknown Family HX Smoking Status: Former Smoker Hx Alcohol Use: No Hx Substance Use: No Hx Substance Use Treatment: No Allergies/Home Meds Allergies/Adverse Reactions: Allergies aspirin Allergy (Severe, Verified 12/21/17 17:41) ANAPHYLAXIS ciprofloxacin Allergy (Severe, Verified 12/21/17 17:41) ANAPHYLAXIS [place] And Derivatives Allergy (Severe, Verified 12/21/17 17:41) ANAPHYLAXIS enalapril Allergy (Severe, Verified 12/21/17 17:41) HIVES heparin Allergy (Severe, Verified 12/21/17 17:41) ANAPHYLAXIS latex Allergy (Severe, Verified 12/21/17 17:41) ANAPHYLAXIS Penicillins Allergy (Severe, Verified 12/21/17 17:41) ANAPHYLAXIS Sulfa (Sulfonamide Antibiotics) Allergy (Severe, Verified 12/21/17 17:41) ANAPHYLAXIS levothyroxine sodium [From Levoxyl] Allergy (Intermediate, Verified 12/21/17 17: 41) RASH acetaminophen Allergy (Mild, Verified 12/21/17 17:41) RASH codeine Allergy (Mild, Verified 12/21/17 17:41) RASH enoxaparin Allergy (Mild, Verified 12/21/17 17:41) RASH iodine Allergy (Mild, Verified 12/21/17 17:41) RASH influenza virus vaccine, specific Allergy (Verified 12/21/17 17:41) hives Home Medications: Home Meds Medication Instructions Recorded Confirmed Cinacalcet [Sensipar] 30 mg PO DAILY 08/30/17 12/21/17 Esomeprazole Magnesium [Nexium] 40 mg PO DAILY 08/30/17 12/21/17 Ammonium Lactate 12% [Lac-Hydrin 1 applic TOP DAILY 10/10/17 12/21/17 12% Cream (140 g)] Bacitracin, Micronized [Bacitracin] 1 gm MC DAILY 10/10/17 12/21/17 HYDROmorphone [Dilaudid 2 mg Tab] 2 mg PO HS 10/10/17 12/21/17 HYDROmorphone [Dilaudid] 1 mg PO Q4H PRN 10/10/17 12/21/17 Levalbuterol [Xopenex] 1.25 mg IH Q6H 10/10/17 12/21/17 Sevelamer [Renagel] 800 mg PO DAILY 10/10/17 12/21/17 traMADol [Ultram] 50 mg PO Q8H PRN 10/10/17 12/21/17 Levocetirizine Dihydrochloride 5 mg PO DAILY 12/21/17 12/21/17 [Levocetirizine Dihydrochloride] Rosuvastatin Calcium [Crestor] 20 mg PO DAILY 12/21/17 12/21/17 Review of Systems - Physician Review All systems were reviewed & negative as marked: Yes - Review of Systems Constitutional: Normal. absent: Fevers Eyes: Normal ENT: Normal Respiratory: SOB. absent: Cough Cardiovascular: Normal. absent: Chest Pain Gastrointestinal: Normal. absent: Abdominal Pain, Diarrhea, Nausea, Vomiting Genitourinary Female: Normal. absent: Dysuria, Frequency, Hematuria, Urine Output Changes Musculoskeletal: Other (+bilateral lower extremity swelling). absent: Back Pain , Neck Pain Skin: Normal. absent: Rash Neurological: Normal. absent: Headache, Dizziness Endocrine: Normal Hemo/Lymphatic: Normal Psychiatric: Normal Physical Exam Vital Signs Reviewed: Yes Vital Signs Temp Pulse Resp BP Pulse Ox 12/21/17 15:27 98.2 F 87 19 144/72 100 12/21/17 09:55 91 H 16 100 12/21/17 08:04 98.6 F 90 17 133/77 99 12/21/17 05:45 19 98 12/21/17 05:44 99.2 F 94 H 20 137/79 97 12/21/17 05:33 97.9 F 90 19 140/79 97 Temperature: Afebrile Blood Pressure: Normal Pulse: Regular Respiratory Rate: Normal Appearance: Positive for: Well-Appearing, Non-Toxic, Comfortable Pain Distress: None Mental Status: Positive for: Alert and Oriented X 3 - Systems Exam Head: Present: Atraumatic, Normocephalic Pupils: Present: PERRL Extroacular Muscles: Present: EOMI Conjunctiva: Present: Normal Mouth: Present: Moist Mucous Membranes Neck: Present: Normal Range of Motion Respiratory/Chest: Present: Rhonchi (Scattered rhonchi). No: Respiratory Distress, Accessory Muscle Use Cardiovascular: Present: Regular Rate and Rhythm, Normal S1, S2. No: Murmurs Abdomen: No: Tenderness, Distention, Peritoneal Signs Back: Present: Normal Inspection Upper Extremity: Present: Normal Inspection. No: Cyanosis, Edema Lower Extremity: Present: Edema (Bilateral lower extremity edema) Neurological: Present: GCS=15, CN II-XII Intact, Speech Normal Skin: Present: Warm, Dry, Normal Color. No: Rashes Psychiatric: Present: Alert, Oriented x 3, Normal Insight, Normal Concentration Medical Decision Making ED Course and Treatment: 12/21/17 05:55 Impression: 57 year old female complaining of worsening shortness of breath today, and bilateral lower extremity swelling. Plan: -- EKG -- Chest X-ray -- Labs, cardiac enzymes, BNP -- Duoneb -- Reassess and disposition Prior Visits: Notes and results from previous visits were reviewed. On 12/11/2017, pt was seen in the Emergency department for abdominal pain. Pt was d/c home. Progress Notes: Reviewed EKG, NSR at 93 bpm. LAD. LVH. Lateral ST/T wave changes. 12/21/17 06:23 Chest X-ray reviewed, shows increased pulmonary vascular markings. 12/21/17 06:30 Calls placed to PMD service.Awaiting callback. - Lab Interpretations Lab Results: 12/21/17 06:19 12/21/17 06:19 Lab Results 12/21/17 06:19: WBC 6.2, RBC 4.31, Hgb 10.8 L, Hct 35.4 L, MCV 82.1 D, MCH 25.1 , MCHC 30.5 L, RDW 16.3 H, Plt Count 120, MPV 9.8 12/21/17 06:19: Sodium 136, Potassium 4.3, Chloride 96 L, Carbon Dioxide 24, Anion Gap 20, BUN 35 H, Creatinine 5.3 H, Est GFR ( Amer) 10, Est GFR ( Non-Af Amer) 8, Random Glucose 96, Calcium 9.4, Total Bilirubin 2.4 H, AST 21, ALT 18, Alkaline Phosphatase 750 H D, Lactate Dehydrogenase 459, Total Creatine Kinase 30 L, Troponin I 0.06, NT-Pro-B Natriuret Pep 125773 H, Total Protein 6.4 , Albumin 3.3, Globulin 3.1, Albumin/Globulin Ratio 1.1 12/21/17 06:19: PT 14.2 H, INR 1.23 H, APTT 29.6 - RAD Interpretation Radiology Orders: 12/21/17 05:57 CHEST PORTABLE [RAD] Stat Supervisor Furnace Room: ED Physician - EKG Interpretation Interpreted by ED Physician: Yes Type: 12 lead EKG - Medication Orders Current Medication Orders: Atorvastatin Calcium (Lipitor) 80 mg PO DIN [facility] Last Admin: 12/21/17 17:38 Dose: 80 mg Hydromorphone HCl (Dilaudid) 1 mg PO Q4H PRN PRN Reason: Pain, moderate (4-7) Last Admin: 12/21/17 17:38 Dose: 1 mg MAR Pain Assessment Document 12/21/17 17:38 (Rec: 12/21/17 17:39 [id number] Pain Reassessment Is this a pain reassessment? Yes Presence of Pain Presence of Pain Yes Pain Scale Used Pain Scale Used Numeric Location Left, Right or Bilateral Left Pain Location Body Site Hip Description Alleviating Factors/Management Medication Techniques Relaxation Techniques Alleviating Factors Medication Levalbuterol HCl (Xopenex) 1.25 mg IH Q6H [facility] Last Admin: 12/21/17 19:39 Dose: 1.25 mg Loratadine (Claritin) 10 mg PO DAILY [facility] Last Admin: 12/21/17 17:39 Dose: 10 mg Methylprednisolone (Solu-Medrol) 40 mg IV Q8H [facility] Last Admin: 12/21/17 17:39 Dose: 40 mg eMAR Start Stop Document 12/21/17 17:39 (Rec: 12/21/17 17:40 [id number] Intravenous Solution Start Date 12/21/17 Start Time 17:40 Metoprolol Succinate (Toprol Xl) 25 mg PO DAILY [facility] Last Admin: 12/21/17 17:38 Dose: 25 mg MAR Pulse and Blood Pressure Document 12/21/17 17:38 VM (Rec: 12/21/17 17:38 [id number]) Pulse Pulse Rate (60-90) 92 Blood Pressure Blood Pressure (100/60-150/90) 144/87 Sevelamer HCl (Renagel) 800 mg PO DAILY [facility] Last Admin: 12/21/17 17:38 Dose: 800 mg Discontinued Medications Albuterol/Ipratropium (Duoneb 3 Mg/0.5 Mg (3 Ml) Ud) 3 ml IH ONCE STA Stop: 12/21/17 05:59 Last Admin: 12/21/17 06:55 Dose: 3 ml Pneumococcal Polyvalent Vaccine (Pneumovax 23 Vaccine) 0.5 ml IM .ONCE ONE Stop: 12/21/17 18:13 - Scribe Statement The provider has reviewed the documentation as recorded by the Corinne Friedman Provider Scribe Attestation: All medical record entries made by the Scribmarek were at my direction and personally dictated by me. I have reviewed the chart and agree that the record accurately reflects my personal performance of the history, physical exam, medical decision making, and the department course for this patient. I have also personally directed, reviewed, and agree with the discharge instructions and disposition. Disposition/Present on Arrival - Present on Arrival Any Indicators Present on Arrival: No History of DVT/PE: No History of Uncontrolled Diabetes: No Urinary Catheter: No History of Decub. Ulcer: No History Surgical Site Infection Following: None - Disposition Have Diagnosis and Disposition been Completed?: Yes Diagnosis: CHF (congestive heart failure), ESRD (end stage renal disease) Disposition: HOSPITALIZED Disposition Time: 06:43 Patient Plan: Observation Patient Problems: Current Active Problems Problem Status Onset CHF (congestive heart failure) Acute ESRD (end stage renal disease) Acute Condition: STABLE
[2017-12-21] MEDS ORDERED: Albuterol-Ipratrop 3 mg / 0.5 (3 ml) UD IH STA (05:58)
[2017-12-21 06:29] LABS: HEMOGLOBIN 10.8 g/dL (12.0-16.0); MEAN CORPUSCULAR HEMOGLOBIN 25.1 pg (25.0-35.0); MEAN CORPUSCULAR HGB CONC 30.5 g/dl (31.0-37.0); MEAN PLATELET VOLUME 9.8 fl (7.0-11.0); RBC 4.31 10^6/uL (3.5-6.1); RED CELL DISTRIBUTION WIDTH 16.3 % (11.5-14.5); WHITE BLOOD COUNT 6.2 10^3/ul (4.5-11.0)
[2017-12-21 06:33] LABS: MEAN CELL VOLUME 82.1 fl (80.0-105.0)
[2017-12-21 06:39] LABS: INR 1.23 (0.93-1.08); PARTIAL THROMBOPLASTIN TIME 29.6 Seconds (25.1-36.5); PROTHROMBIN TIME 14.2 SECONDS (9.4-12.5)
[2017-12-21 06:54] LABS: TROPONIN I 0.06 ng/mL
[2017-12-21 07:22] LABS: ALB/GLOB RATIO 1.1 (1.1-1.8); ALBUMIN 3.3 g/dL (3.0-4.8); CALCIUM 9.4 mg/dL (8.4-10.5)
--- NOTE | 2017-12-21 08:10 | RAD ---
HISTORY: sob COMPARISON: 12/01/2017 FINDINGS: LUNGS: No active pulmonary disease. PLEURA: No significant pleural effusion identified, no pneumothorax apparent. CARDIOVASCULAR: Moderate cardiomegaly. Moderate vascular and interstitial congestion. Similar to prior study OSSEOUS STRUCTURES: No significant abnormalities. VISUALIZED UPPER ABDOMEN: Normal. OTHER FINDINGS: None. IMPRESSION: Moderate cardiomegaly. Moderate vascular and interstitial congestion. Similar to prior study
--- NOTE | 2017-12-21 13:16 | CARD ---
APPROVED REPORT EKG Measurement Heart [id number] HI 160P53 [id number] <Conclusion> Normal sinus rhythm Possible Left atrial enlargement Left axis deviation Left ventricular hypertrophy ST & T wave abnormality, consider lateral ischemia Prolonged QT Abnormal ECG
[2017-12-21] MEDS: Metoprolol Succinate 25 mg XL Tab PO SCH (17:38)
[2017-12-21] MEDS: MethylPREDNISolone 40 mg Vial IV SCH (17:39)
[2017-12-21] MEDS ORDERED: Pneumococcal 23-Valent Vaccine IM ONE (18:12)
[2017-12-21 18:13] VITALS: BMI 22.6
[2017-12-21] MEDS: Levalbuterol 1.25 MG/3 ML Inhal Soln UD IH SCH (19:39)
[2017-12-22] MEDS: Levalbuterol 1.25 MG/3 ML Inhal Soln UD IH SCH ×4 (01:18→20:30)
--- NOTE | 2017-12-22 01:49 | HP ---
DATE OF EXAM: HISTORY OF PRESENT ILLNESS: The patient is a 57-year-old, came to the emergency room because of increasing shortness of breath, cough, and congestion. The patient still smokes and her dialysis was due today. When she came in, she was having cough, congestion and shortness of breath. The patient went for an emergent dialysis. While seen in the dialysis unit, still having cough and congestion. Cough is productive. Denies any hemoptysis. No history of fever or chills. PAST MEDICAL HISTORY: Significant for; 1. End-stage renal disease, on hemodialysis. 2. Bilateral congenital hip disease, recently has right hip reconstruction surgery done. 3. History of GI bleed, generalized AVMs in the whole GI tract. 4. Hyperlipidemia. 5. COPD. 6. Pulmonary hypertension. 7. History of C. diff. ALLERGIES: HE IS ALLERGIC TO ASPIRIN, CIPRO, CITRUS DERIVATIVES, FLU VACCINE, IODINE, LOVENOX, CODEINE, ACETAMINOPHEN, LEVOTHYROXINE, SULFA, PENICILLIN, LATEX, HEPARIN, ENALAPRIL. MEDICATION AT HOME: She is on atorvastatin. She is on Sensipar 30 mg daily, Nexium 40 mg daily, hydromorphone 2 mg every 6 hours, Claritin 10 mg daily, metoprolol 25 mg daily, Zofran, Crestor 20 mg daily, Renagel 800 three times a day, and tramadol as needed. SOCIAL HISTORY: She lives with her boyfriend. REVIEW OF SYSTEMS: Significant for cough and congestion. PHYSICAL EXAMINATION: GENERAL: She is sleepy, but arousable. She is intermittently coughing while on dialysis. VITAL SIGNS: She is afebrile, pulse 82, respirations 19, blood pressure 144/71. LUNGS: Bilateral fair airflow. Soft crackle bilaterally. HEART: S1, S2 audible. ABDOMEN: Soft and nontender. No rebound. No guarding. NEUROLOGIC: She is sleepy, but arousable. Moves all extremities. LABORATORY DATA: WBC 6.2, hemoglobin 10.8, hematocrit 35.4, and platelet of 120. PT 14.2 and INR 1.23. Chemistry; sodium 136, potassium 4.3, chloride 96, CO2 of 24, BUN 35, creatinine 5.3, blood sugar of 96. Total bilirubin 2.4, alkaline phosphatase is 750. BNP is 430,000. X-ray of chest was done that showed moderate cardiomegaly, moderate vascular endothelial congestion. ASSESSMENT: 1. Fluid overload. 2. Chronic obstructive pulmonary disease. 3. Hypertension. 4. End-stage renal disease, on hemodialysis. 5. Bronchospasm. PLAN: So plan is, the patient will be admitted. We will start her on nebulizer treatment. We will start her on IV steroids. We will reevaluate the patient in a.m. Shawn Gomez MD
[2017-12-22] MEDS: MethylPREDNISolone 40 mg Vial IV SCH ×3 (02:35→18:08)
--- NOTE | 2017-12-22 08:10 | CON ---
DATE: 12/21/2017 SUBJECTIVE: The patient is seen in the dialysis unit. She is very lethargic. She is weak. She reports she came in because she was having cough. She was bringing up brownish phlegm. HISTORY OF PRESENT ILLNESS: She is seen in the dialysis unit. She is awake, she is alert. She complains of being weak. She complains of being tired. She is very lethargic. She has cough. She is complaining of brownish phlegm. She denies any fevers. She denies any chills. In the emergency room, she was found to have a temperature of 97.9, T-max 99.2, blood pressure was 140/79. Initial blood work showed elevated BNP of 430,000. Chest x-ray showed no significant pleural effusion, moderate cardiomegaly, moderate vascular and interstitial congestion. . PAST MEDICAL AND SURGICAL HISTORY: ESRD, hypertension, COPD, asthma, CAD, CHF, osteoarthritis, recent right hip replacement. FAMILY HISTORY: Noncontributory. SOCIAL HISTORY: She is a smoker, no alcohol use, no IV drug abuse. ALLERGIES: CIPRO, ENALAPRIL, HEPARIN, PENICILLIN, SYNTHROID, TYLENOL, LOVENOX. REVIEW OF SYSTEMS: All systems are reviewed, pertinent positives as mentioned in history presenting illness, rest unremarkable. PHYSICAL EXAMINATION GENERAL: Middle-aged lady lying in bed, lethargic. VITAL SIGNS: Blood pressure 144/71, heart rate 82, respiratory rate 20, temperature 98.6. HEENT: Normocephalic, atraumatic, positive pallor. NECK: Supple, no JVD. LUNGS: Bilateral rhonchi, expiratory wheeze, poor air entry. CARDIAC: S1 and S2. Regular rate and rhythm, no murmur, no rub. ABDOMEN: Soft, nondistended, nontender, bowel sounds present. EXTREMITIES: Erythema of the lower extremities, rash in the lower legs, 2+ edema. INTAKE AND OUTPUT: Not charted. LABORATORY DATA: WBC 6.2, hemoglobin 10.8, hematocrit 35, platelets 120. Sodium 136, potassium 4.3, chloride 96, CO2 24, BUN 35, creatinine 5.3, glucose 96, calcium 9.4, phosphorus not checked, total bili 2.4, alk phos 750, CPK 30. BNP 430,000, albumin 3.3. CURRENT MEDICATIONS: DuoNeb given. ASSESSMENT/PLAN: 1. Decompensated congestive heart failure. 2. Asthma exacerbation. 3. Lower extremity rash? Cellulitis. 4. End-stage renal disease. 5. Anemia of chronic kidney disease. 6. Elevated bilirubin. 7. Chronic malnourishment. PLAN 1. Dialysis today, ultrafiltration 3 kg. 2. Will likely need dialysis tomorrow/duff tomorrow to ultrafiltration another 2 kg. 3. ID evaluation? 4. Empiric antibiotics? 5. Check ESR, . Mansi Rose MD [facility]
[2017-12-22] MEDS: Metoprolol Succinate 25 mg XL Tab PO SCH (10:40)
--- NOTE | 2017-12-22 13:27 | CT ---
PROCEDURE: CT Chest without contrast HISTORY: sob COMPARISON: None. TECHNIQUE: Contiguous axial images were obtained through the chest without intravenous contrast enhancement. Sagittal and coronal reconstructions were performed. Radiation dose (DLP): 190 mGy-cm. This CT exam was performed using one or more of the following dose reduction techniques: Automated exposure control, adjustment of the mA and/or kV according to patient size, and/or use of iterative reconstruction technique. FINDINGS: LUNGS: Minimal bibasilar infiltrates or atelectasis are seen at the lung bases MEDIASTINUM: Unremarkable thoracic aorta. No aneurysm. Moderate cardiomegaly. Coronary artery calcifications. Main pulmonary artery unremarkable. No vascular congestion. No lymphadenopathy. PLEURA: No pleural fluid. No pneumothorax. BONES: No fracture. No destructive lesion. UPPER ABDOMEN: Grossly unremarkable. OTHER FINDINGS: There is subcutaneous edema. There is a 1.7 cm splenic artery aneurysm IMPRESSION: Bibasilar atelectasis. Cardiomegaly
--- NOTE | 2017-12-22 13:37 | PN ---
DATE: 12/22/2017 SUBJECTIVE: The patient is 57 years old, seen and examined, sleepy, but arousable, not in any acute distress; however, she has productive cough and gets short of breath after she has bout of cough. Had dialysis yesterday. Leg swelling seemed to be improving. PHYSICAL EXAMINATION VITAL SIGNS: She is afebrile, pulse 80, respiration 18, blood pressure 135/67. LUNGS: Bilateral fair air flow. A few expiratory rhonchi with soft crackle. HEART: S1 and S2 audible. ABDOMEN: Soft, nontender, no rebound, no guarding. NEUROLOGIC: The patient is awake, alert, oriented, although she is sleepy, but responds to verbal commands. ASSESSMENT: 1. Chronic obstructive pulmonary disease exacerbation. 2. Fluid overload. 3. Hypertension. 4. Bilateral congenital hip disease, status post right hip reconstruction surgery. 5. History of gastrointestinal bleed secondary to arteriovenous malformations. PLAN: We will continue on IV steroids, continue on nebulizer treatment. Out of bed to chair. We will order for CT scan of the chest and I will order for physical therapy. Shawn Gomez MD
--- NOTE | 2017-12-22 18:03 | PN ---
DATE: 12/22/2017 SUBJECTIVE: The patient is seen lying in bed. She is awake, she is alert. She complains of cough. She complains of brown phlegm. She complains of pain in her legs. PHYSICAL EXAMINATION: GENERAL: Middle-aged lady lying in bed. VITAL SIGNS: Blood pressure 135/67, heart rate 77, respiratory rate 18 to 20, temperature 97.8. HEENT: Normocephalic, atraumatic, positive pallor. NECK: Supple, no JVD. LUNGS: Bilateral rhonchi, bilateral expiratory wheeze, , prolonged inspiration. CARDIAC: S1 and S2, regular rate and rhythm, no murmur, no rub. ABDOMEN: Soft, nondistended, nontender, bowel sounds present. EXTREMITIES: Erythema of both lower legs, 1+ edema, tenderness INTAKE AND OUTPUT: Not charted. LABORATORY DATA: WBC 6.2, hemoglobin 10.8, hematocrit 35, and platelets 120. ESR 75. Sodium 136, potassium 4.3, chloride 96, CO2 of 24. BUN 35, creatinine 5.3. Glucose 96. Calcium 9.4. Total bili 2.4, AST 21, ALT 18. CT of the chest, minimal bibasilar infiltrates, cardiomegaly. CURRENT MEDICATIONS: Claritin, Dilaudid, Lipitor, Renagel, Solu-Medrol, Toprol XL 25. ASSESSMENT: 1. Decompensated congestive heart failure. 2. Bronchitis. 3. ?Vasculitis. 4. End-stage renal disease. 5. Hypertension. 6. History of pericardial effusion. 7. Thrombocytopenia. PLAN: 1. Follow up vasculitis workup. 2. Ultrafiltration today to remove 2 kg. 3. Continue phosphate binder. 4. Continue respiratory treatments and steroids. Mansi Rose MD
[2017-12-23] MEDS: MethylPREDNISolone 40 mg Vial IV SCH ×4 (01:00→21:08)
[2017-12-23] MEDS: Levalbuterol 1.25 MG/3 ML Inhal Soln UD IH SCH ×4 (02:40→19:58)
[2017-12-23] MEDS: Metoprolol Succinate 25 mg XL Tab PO SCH (09:01)
--- NOTE | 2017-12-23 14:20 | PN ---
DATE: 12/23/2017 SUBJECTIVE: The patient is 57 years old, still has cough, congestion, productive cough with shortness of breath on walking. PHYSICAL EXAMINATION: VITAL SIGNS: The patient is afebrile. Pulse 71, respirations 18, blood pressure is 135/74. LUNGS: Bilateral fair air flow. Few expiratory rhonchi. HEART: S1 and S2 audible. ABDOMEN: Soft and nontender. No rebound. No guarding. NEUROLOGIC: She is awake, alert, oriented, communicative. ASSESSMENT: 1. Chronic obstructive pulmonary disease exacerbation. 2. Fluid overload. 3. Bilateral congenital hip deformity, status post right hip reconstruction surgery. 4. Bilateral bibasilar atelectasis. 5. End-stage renal disease, on hemodialysis. 6. History of gastrointestinal bleed secondary to arteriovenous malformations. PLAN: I will cut down her steroids from 40 every 8 hours to every 12 hours. Continue nebulizer treatment. We will start physical therapy. We will follow up this patient in the morning. Shawn Gomez MD
[2017-12-24] MEDS: Levalbuterol 1.25 MG/3 ML Inhal Soln UD IH SCH ×4 (01:15→19:28)
[2017-12-24] MEDS: Metoprolol Succinate 25 mg XL Tab PO SCH ×2 (10:23→21:45)
[2017-12-24] MEDS: MethylPREDNISolone 40 mg Vial IV SCH ×2 (10:24→21:15)
--- NOTE | 2017-12-24 13:08 | PN ---
DATE: 12/24/2017 SUBJECTIVE: The patient has no complaints of any chest pain. No shortness of breath. No headaches or dizziness.. PHYSICAL EXAMINATION: VITAL SIGNS: Temperature is 97.7, pulse is 78, blood pressure 140/75, respirations 19. GENERAL: The patient is lying in bed, flat, comfortable. HEENT: No oral lesion. Anicteric sclerae. Moist mucosa. NECK: No JVD, adenopathy, or thyromegaly. CARDIOVASCULAR: S1 and S2, regular. No murmurs, rubs, or gallops. LUNGS: Clear to auscultation bilaterally. No wheeze, rales, or rhonchi. ABDOMEN: Bowel sounds are positive, soft, nontender and nondistended. EXTREMITIES: No cyanosis, clubbing or edema. In the left arm, there is a fistula with good thrill and bruit. ASSESSMENT: 1. Acute chronic obstructive pulmonary disease exacerbation. 2. End-stage renal disease, on hemodialysis. 3. Dyslipidemia. 4. Hypertension. 5. Thrombocytopenia. PLAN: The patient is currently comfortable. She says she is breathing is better. She is on Dilaudid for pain. She is going to continue Solu-Medrol for her COPD. She is on nebulizer treatment. She is on a heart-healthy diet. I did review the note from Nephrology. I appreciate their input. There is that has been ordered. Juan Francisco Guerra MD
[2017-12-24] MEDS ORDERED: Acetylcysteine 20% Inhal Sol (30ml) IH SCH (18:00)
[2017-12-25] MEDS: Levalbuterol 1.25 MG/3 ML Inhal Soln UD IH SCH ×4 (01:43→20:03)
[2017-12-25] MEDS: Acetylcysteine 20% Inhal Soln (4ml) IH SCH ×3 (01:44→20:03)
--- NOTE | 2017-12-25 08:57 | PN ---
DATE: 12/24/2017 SUBJECTIVE: Patient is seen walking in the hallway. She is awake. She is alert. She is complaining of cough. She is complaining of dyspnea on exertion. She is also complaining of brownish phlegm. PHYSICAL EXAMINATION: GENERAL: Middle-aged lady walking in the hallway. VITAL SIGNS: Blood pressure 148/82, heart rate 81, respiratory rate 18, temperature 98.2. HEENT: Normocephalic, atraumatic, positive pallor. NECK: Supple, no JVD. LUNGS: Bilateral equal air entry, bilateral rhonchi, expiratory wheeze. CARDIAC: S1, S2, regular rate and rhythm. No murmur, no rub. ABDOMEN: Soft, nondistended, nontender. Bowel sounds present. EXTREMITIES: No lower extremity edema. Decreased erythema. CURRENT MEDICATIONS: Claritin, Dilaudid, Lipitor, Solu-Medrol. ASSESSMENT: 1. Decompensated congestive heart failure. 2. Chronic obstructive pulmonary disease exacerbation. 3. End-stage renal disease. 4. Lower extremity erythema/cellulitis? vasculitis. PLAN: . Mansi Rose MD
[2017-12-25] MEDS: MethylPREDNISolone 40 mg Vial IV SCH ×3 (10:37→21:37)
[2017-12-25] MEDS: Metoprolol Succinate 25 mg XL Tab PO SCH (10:37)
--- NOTE | 2017-12-25 13:25 | PN ---
DATE: 12/25/2017 SUBJECTIVE: The patient is 57 years old, still has cough, congestion, generalized weakness, difficulty walking. Very unstable to walk. PHYSICAL EXAMINATION: VITAL SIGNS: She is afebrile, pulse 70, respirations 20, blood pressure 130/70. LUNGS: Bilateral good airflow. No rhonchi or crackle. HEART: S1 and S2 audible. ABDOMEN: Soft. Nontender. No rebound. No guarding. NEUROLOGIC: The patient is awake, alert, oriented, able to communicate. LABORATORY EXAM: There is no new lab available for today. ASSESSMENT: 1. Chronic obstructive pulmonary disease exacerbation. 2. End-stage renal disease, on hemodialysis. 3. Deconditioning and difficulty walking. 4. Bilateral hip congenital deformity, status post right hip reconstruction surgery. 5. Bibasilar atelectasis. 6. History of gastrointestinal bleed secondary to arteriovenous malformations. 7. Cirrhosis of liver. PLAN: Currently, the patient is on IV steroid. She is getting nebulizer treatment. Analgesic as needed. We will continue on statins. Cut down steroid to 20 b.i.d. We will reevaluate the patient in the a.m. If stable, make discharge plan after dialysis tomorrow. Shawn Gomez MD
--- NOTE | 2017-12-25 19:23 | PN ---
DATE: 12/25/2017 SUBJECTIVE: The patient is seen lying in bed. She is awake, she is alert. She reports feeling better. She still has some cough, but it is much improved. Her breathing is much better. PHYSICAL EXAMINATION: GENERAL: Elderly lady lying in bed. VITAL SIGNS: Blood pressure 144/85, heart rate 78, respiratory rate 20, temperature 97.5. HEENT: Normocephalic, atraumatic. NECK: Supple, no JVD. LUNGS: Bilateral rhonchi, bilateral equal expansion, good air entry. CARDIAC: S1 and S2, regular rate and rhythm, no murmur, no rub. ABDOMEN: Soft, nondistended, nontender, bowel sounds present. EXTREMITIES: No lower extremity edema. LABORATORY DATA: No new labs available. MEDICATIONS: Mucomyst, Claritin, Dilaudid, Lipitor, Solu-Medrol, Toprol XL, Xopenex. ASSESSMENT: 1. Chronic obstructive pulmonary disease exacerbation. 2. Cellulitis of the lower extremities. 3. ?Vasculitis. 4. End-stage renal disease. 5. Hypertension. 6. History of pericardial effusion. PLAN: 1. Check labs with dialysis tomorrow. 2. Dialysis in a.m. tomorrow. 3. Ultrafiltration about 3 kg on dialysis tomorrow. 4. Follow up vasculitis workup. Mansi Rose MD
[2017-12-26] MEDS: Levalbuterol 1.25 MG/3 ML Inhal Soln UD IH SCH ×4 (02:15→20:26)
[2017-12-26] MEDS: Acetylcysteine 20% Inhal Soln (4ml) IH SCH ×2 (07:38→20:25)
[2017-12-26 08:43] LABS: GRAN # 6.06 (1.4-6.5); GRAN % 90.9 % (50.0-68.0); HEMOGLOBIN 10.5 g/dL (12.0-16.0); LYMPH # 0.4 (1.2-3.4); LYMPH % 5.2 % (22.0-35.0); MEAN CELL VOLUME 81.7 fl (80.0-105.0); MEAN CORPUSCULAR HEMOGLOBIN 24.9 pg (25.0-35.0); MEAN CORPUSCULAR HGB CONC 30.5 g/dl (31.0-37.0); MEAN PLATELET VOLUME 10.2 fl (7.0-11.0); MONO # 0.3 (0.1-0.6); MONO % 3.9 % (1.0-6.0); PLATELET COUNT 85 10^3/uL (120.0-450.0); RBC 4.21 10^6/uL (3.5-6.1); RED CELL DISTRIBUTION WIDTH 16.5 % (11.5-14.5); WHITE BLOOD COUNT 6.7 10^3/ul (4.5-11.0)
[2017-12-26 08:57] LABS: ALB/GLOB RATIO 1.1 (1.1-1.8); ALBUMIN 3.4 g/dL (3.0-4.8); CALCIUM 8.9 mg/dL (8.4-10.5)
[2017-12-26 09:53] LABS: LYMPHOCYTE 9 % (22.0-35.0); MONOCYTE 1 % (1.0-6.0); NEUTROPHIL 90 % (50.0-70.0); PLATELET ESTIMATE LOW (NORMAL)
[2017-12-26] MEDS: MethylPREDNISolone 40 mg Vial IV SCH ×2 (11:04→22:49)
[2017-12-26] MEDS: Metoprolol Succinate 25 mg XL Tab PO SCH (11:04)
--- NOTE | 2017-12-26 13:35 | PN ---
DATE: 12/26/2017 SUBJECTIVE: The patient is currently seen just having returned from dialysis. She states that 2.5 liters of fluid were removed. She is comfortable lying supine in bed. Her breathing is improved. She continues on inhalation therapy and steroids. MEDICATIONS: Medication list reviewed. The patient is currently on acetylcysteine inhalation therapy, Claritin, Dilaudid p.r.n., Lipitor, Solu-Medrol, Toprol, and Xopenex. OBJECTIVE: INTAKE/OUTPUT: Intake is 1140, output is zero. VITAL SIGNS: Blood pressure is 160/80. Temperature 97.4, respiratory rate 20 with a pulse of 81. HEENT: Exam shows her to be normocephalic, atraumatic. Conjunctivae are pink. Sclerae nonicteric. NECK: Supple. No neck vein distention. CHEST: No rales, rhonchi or wheezing. CARDIOVASCULAR: Regular rate and rhythm with TR/MR. Distal lower extremity pulses are 1+ to 2+bilaterally. ABDOMEN: Soft. Bowel sounds normal. No rebound, guarding or masses. EXTREMITIES: Show no lower extremity cyanosis, clubbing or edema. Positive left upper extremity AV fistula. LABORATORY DATA AND IMAGING DATA: Labs from today white blood cell count 6.7, hemoglobin 10.5 with a platelet count of 85,000. Chemistries show potassium of 3.4, sodium 139, chloride 95, BUN 25 with creatinine of 3. Calcium 8.9, phosphorus 3.4, magnesium 1.9. Mild elevation of liver enzymes. Bilirubin is 1.9 with an AST of 61. Microbiology, no cultures available for comment. ASSESSMENT: 1. Chronic obstructive pulmonary disease with exacerbation, on steroids and inhalation therapy. The patient appears to be making daily improvement. 2. Status post cellulitis of lower extremity. 3. History of end-stage renal disease. The patient will continue Monday, , Monday dialysis as per routine. 4. History of hypertension. Blood pressure controlled on present medical therapy. 5. History of gastroesophageal reflux disease with gastrointestinal bleeding. This appears to be stable. 6. History of anemia secondary to chronic kidney disease. Hemoglobin acceptable at 10.5. 7. History of a left renal complex cyst, likely unchanged. 8. History of pulmonary hypertension, stable. 9. Status post history of pericardial effusion. PLAN: 1. Continue three times a week dialysis. 2. Continue inhalation therapy as per the present orders. 3. Continue Aranesp with dialysis per protocol. 4. Continue renal diet. Deon Mathews MD [facility]
--- NOTE | 2017-12-26 14:50 | RAD ---
HISTORY: pain COMPARISON: Prior CT chest marked 12/22/2017 FINDINGS: BONES: No thoracic vertebral body fracture noted. There are 11 rib-bearing thoracic vertebrae suggested. DISC SPACES: Normal. SOFT TISSUES: OTHER FINDINGS: Atherosclerotic vascular calcifications present. . A splenic artery aneurysm is noted this was apparently measured at 1.8 cm on the 12/22/2017 CT study. Left lung apical vascular stent in place On the lateral view projecting of the inferior thoraco lumbar spine a posterior oval soft tissue opacity is noted single hemidiaphragm is noted no asymmetrical soft tissue pathology on the cone down central image of the the thorax appreciated. This posterior inferior oval large 6 cm Masslike opacity is probably extrinsic to the cone down field of view of this frontal thoracic spine image. It is also not apparent on the lateral air pollution inspector CT image from 12/22/2017 not apparent on the recent CT study IMPRESSION: Interval large 6 cm oval masslike opacity projecting over the inferior posterior thoracolumbar junction on the lateral thoracic spine image of this exam - not apparent on the earlier lateral air pollution inspector image of the CT chest exam from 12/22/2017. This is believes outside [id number] from the coned down frontal thoracic image. A follow-up chest x-ray PA view recommended for further evaluation. No fracture seen. Other findings as above
[2017-12-26 16:01] LABS: ANCA SCREEN NEGATIVE (NEGATIVE)
[2017-12-26] MEDS: HYDROmorphone 1 mg/ml ISec IVP PRN (21:59)
[2017-12-27] MEDS: Levalbuterol 1.25 MG/3 ML Inhal Soln UD IH SCH ×4 (03:23→21:22)
[2017-12-27] MEDS: HYDROmorphone 1 mg/ml ISec IVP PRN ×4 (05:46→20:17)
--- NOTE | 2017-12-27 05:48 | PN ---
DATE: 12/26/2017 SUBJECTIVE: The patient is a 57 years old seen and examined, still has cough, congestion, shortness of breath. OBJECTIVE: VITAL SIGNS: She is afebrile, pulse 82, respirations 20, blood pressure 147/ . LUNGS: Bilateral soft crackles scattered. HEART: S1 and S2 audible. ABDOMEN: Soft, nontender. No rebound, no guarding. NEUROLOGIC: She is awake, alert, oriented, communicative. LABORATORY EXAMINATION: WBC 6.7, hemoglobin 10.5, hematocrit 34.4, platelets of 85. Chemistry: Sodium 139, potassium 3.4, chloride 95, CO2 of 29. BUN 25, creatinine 3. Blood sugar of 151. Alk phos is 578. The patient has, since she fell at home, and has bruise in her mid thoracic area that shows mass like opacity over the inferior posterior thoracolumbar junction, thoracic spine. ASSESSMENT: 1. Chronic obstructive pulmonary disease exacerbation. 2. End-stage renal disease, on hemodialysis. 3. Active smoker. 4. History of gastrointestinal bleed secondary to arteriovenous malformations. 5. Bilateral congenital hip deformity, status post recent right . PLAN: We will continue the patient on nebulizer treatment and given analgesic as needed. We reevaluate the patient in a.m. and will order for x-ray chest PA and lateral view. Shawn Gomez MD
[2017-12-27 07:36] LABS: CALCIUM 9.7 mg/dL (8.4-10.5)
[2017-12-27] MEDS: Acetylcysteine 20% Inhal Soln (4ml) IH SCH ×2 (07:38→21:22)
--- NOTE | 2017-12-27 09:08 | RAD ---
HISTORY: Thoracic mass COMPARISON: No prior. TECHNIQUE: Chest PA and lateral FINDINGS: LUNGS: No active pulmonary disease. PLEURA: No significant pleural effusion identified. No pneumothorax apparent. CARDIOVASCULAR: Cardiomegaly. No evidence of acute, significant cardiovascular disease. OSSEOUS STRUCTURES: No significant abnormalities. VISUALIZED UPPER ABDOMEN: Normal. OTHER FINDINGS: None. IMPRESSION: No active disease. The finding on thoracic spine radiographs cannot be duplicated nor was present on recent CT scans.
[2017-12-27] MEDS: MethylPREDNISolone 40 mg Vial IV SCH ×2 (09:54→21:13)
[2017-12-27] MEDS: Metoprolol Succinate 25 mg XL Tab PO SCH (09:54)
--- NOTE | 2017-12-27 14:53 | PN ---
DATE: 12/27/2017 SUBJECTIVE: The patient is 57 years old. Still has cough, congestion, gets short of breath. Has generalized weakness. PHYSICAL EXAMINATION: VITAL SIGNS: She is afebrile, pulse 88, respirations 20, blood pressure 145/88. LUNGS: Bilateral soft crackle. HEART: S1 and S2 audible. ABDOMEN: Soft. Nontender. No rebound. No guarding. NEUROLOGICAL: She is awake and alert, osbaldo to communicate. LABORATORY EXAM: Sodium 138, potassium 4, chloride 93, CO2 of 30, BUN 37, creatinine 3.8, blood sugar of 95. ASSESSMENT: 1. Chronic obstructive pulmonary disease exacerbation. 2. Status post fall with thoracic contusion. 3. Hypertension. 4. End-stage renal disease, on hemodialysis. 5. Bilateral congenital hip deformity, status post right hip reconstruction surgery. PLAN: We will continue the patient on nebulizer treatment. She is on IV steroids. Encourage out of bed to chair. Seems to be improving slowly. We will make discharge plan for discharge after dialysis tomorrow. Shawn Gomez MD
--- NOTE | 2017-12-27 19:03 | PN ---
DATE: 12/27/2017 SUBJECTIVE: The patient is seen lying in bed. She is awake. She is alert. She complains of a headache. She also complains of cough, but it is much better. She complains of greenish phlegm. PHYSICAL EXAMINATION: GENERAL: Thinly built elderly lady lying in bed. VITAL SIGNS: Blood pressure 135/80, heart rate 81, respiratory rate 20, temperature 97. HEENT: Normocephalic, atraumatic. NECK: Supple, no JVD. LUNGS: Bilateral equal air entry, bilateral rhonchi, bilateral crackles. CARDIAC: S1 and S2, regular rate and rhythm, no murmur, no rub. ABDOMEN: Obese, distended, soft, nontender, bowel sounds present. EXTREMITIES: No lower extremity edema. INTAKE AND OUTPUT: Not charted. LABORATORY DATA: No new labs. ANCA screen negative. CURRENT MEDICATIONS: List reviewed. ASSESSMENT: 1. Chronic obstructive pulmonary disease exacerbation. 2. Lower extremity cellulitis. 3. Hypertension. 4. Coronary artery disease. 5. End-stage renal disease. 6. Anemia of chronic kidney disease. 7. Secondary hyperparathyroidism. PLAN: 1. Continue respiratory treatments. 2. Continue steroids. 3. Stable dialysis yesterday. 4. Next dialysis tomorrow. Mansi Rose MD
[2017-12-28] MEDS: HYDROmorphone 1 mg/ml ISec IVP PRN ×2 (00:35→05:07)
[2017-12-28] MEDS: Levalbuterol 1.25 MG/3 ML Inhal Soln UD IH SCH ×3 (01:54→13:13)
[2017-12-28] MEDS: Acetylcysteine 20% Inhal Soln (4ml) IH SCH (07:32)
[2017-12-28 08:39] VITALS: RESP 20
[2017-12-28 10:32] VITALS: BP 159/82; PULSE 82; TEMP 98; O2SAT 98
[2017-12-28] MEDS: MethylPREDNISolone 40 mg Vial IV SCH (11:46)
[2017-12-28] MEDS: Metoprolol Succinate 25 mg XL Tab PO SCH (11:46)
--- NOTE | 2017-12-28 16:20 | PN ---
DATE: 12/28/2017 SUBJECTIVE: The patient is seen in the dialysis unit. She is awake. She is alert. She still has some cough. PHYSICAL EXAMINATION: GENERAL: Middle-aged lady lying in bed. VITAL SIGNS: Blood pressure 159/82, heart rate 82, respiratory rate 20, temperature 98. HEENT: Normocephalic, atraumatic, positive pallor. NECK: Supple, no JVD. LUNGS: Bilateral rhonchi, prolonged expiration. CARDIAC: S1 and S2, regular rate and rhythm, no murmur, no rub. ABDOMEN: Soft, nondistended, nontender, bowel sounds present. EXTREMITIES: Chronic changes, no edema. INTAKE AND OUTPUT: Not charted. LABORATORY DATA: No new labs. CURRENT MEDICATIONS: Mucomyst, Claritin, Dilaudid, Lipitor, Solu-Medrol, Toprol-XL, Xopenex. ASSESSMENT: 1. Chronic obstructive pulmonary disease exacerbation. 2. Hypertension. 3. End-stage renal disease. 4. Anemia of chronic kidney disease. 5. Lower extremity cellulitis. PLAN: 1. Stable dialysis. 2. Continue respiratory treatments and taper steroids. 3. Continue antihypertensives. 4. Continue phosphate binders. 5. Discharge planning. Mansi Rose MD
--- NOTE | 2017-12-28 21:31 | DS ---
HISTORY OF PRESENT ILLNESS: Patient is a 57 years old, still has coughing, congestion, but able to ambulate with a rolling walker, still has cough, a little better than before, received a dialysis, willing to go home. PHYSICAL EXAMINATION: VITAL SIGNS: She is afebrile. Pulse 82, respirations 20, blood pressure 159/82. LUNGS: Bilateral scattered soft crackle. HEART: S1 and S2 audible. ABDOMEN: Soft, nontender. No rebound, no guarding. NEUROLOGIC: Patient is awake and alert, able to communicate. LABORATORY EXAMINATION: WBC 6.7, hemoglobin 10.5, hematocrit 34.4. Chemistry: Sodium 138, potassium 4, chloride 93, CO2 30, BUN 37, creatinine 3.8, blood sugar 195. ASSESSMENT AND PLAN: 1. Chronic obstructive pulmonary disease exacerbation. 2. Asthmatic bronchitis. 3. Hypertension 4. End-stage renal disease, on hemodialysis. 5. Hyperlipidemia. 6. History of gastrointestinal bleed. 7. History of arteriovenous malformations. So plan is, patient is being discharged home with tapering dose of steroids. She has nebulizer machine at home and she will resume her dialysis schedule upon discharge. Shawn Gomez MD
== END 2017-12-28 14:06 | disposition home health service (06) | DRG 190 ==
LOC: ED 05:17 → ERH 06:43 → 2RSO 16:08 → OBSVTOIN 12-22 14:25 → 5RSO 12-23 14:08
PROVIDERS: ADMIT Internal Medicine; ATTEND Internal Medicine
PROC: 5A1D70Z Performance of Urinary Filtration, Intermittent, Less than 6 Hours Per Day (ICD-10-PCS; principal; 2017-12-21)
PROC: 5A1D70Z Performance of Urinary Filtration, Intermittent, Less than 6 Hours Per Day (ICD-10-PCS; 2017-12-22)
PROC: 5A1D70Z Performance of Urinary Filtration, Intermittent, Less than 6 Hours Per Day (ICD-10-PCS; 2017-12-26)
PROC: 5A1D70Z Performance of Urinary Filtration, Intermittent, Less than 6 Hours Per Day (ICD-10-PCS; 2017-12-28)
DX: J44.1 Chronic obstructive pulmonary disease with (acute) exacerbation (principal); N18.6 End stage renal disease; J45.901 Unspecified asthma with (acute) exacerbation; I13.2 Hypertensive heart and chronic kidney disease with heart failure and with stage 5 chronic kidney disease, or end stage renal disease; L03.115 Cellulitis of right lower limb; L03.116 Cellulitis of left lower limb; N25.81 Secondary hyperparathyroidism of renal origin; E46 Unspecified protein-calorie malnutrition; J98.11 Atelectasis; I50.9 Heart failure, unspecified; E78.5 Hyperlipidemia, unspecified; I27.20 Pulmonary hypertension, unspecified; D69.6 Thrombocytopenia, unspecified; K74.60 Unspecified cirrhosis of liver; I25.10 Atherosclerotic heart disease of native coronary artery without angina pectoris; K21.9 Gastro-esophageal reflux disease without esophagitis; K22.70 Barrett's esophagus without dysplasia; D63.1 Anemia in chronic kidney disease; F17.200 Nicotine dependence, unspecified, uncomplicated; R26.2 Difficulty in walking, not elsewhere classified; Z96.641 Presence of right artificial hip joint; Z88.6 Allergy status to analgesic agent; Z99.2 Dependence on renal dialysis

== ENCOUNTER 2017-12-29 19:20 | Inpatient (IN) | payer MEDICARE, BC ==
[2017-12-29] MEDS ORDERED: Ipratropium 0.02% Inhal Soln (0.5 mg/2.5 ml) UD IH STA (19:37)
--- NOTE | 2017-12-29 20:00 | ED PDOC ---
Addendum entered and electronically signed by Kwasi Nino DO 12/29/17 22 :23: Disposition Clinical Impression: Hospital acquired PNA Disposition: HOSPITALIZED Disposition Time: 22:16 Condition: GUARDED Stand Alone Forms: [facility] (Bengali) Original Note: Arrival/HPI - General Historian: Patient - History of Present Illness Time/Duration: Prior to Arrival Symptom Onset: Sudden Symptom Course: Unchanged <Kwasi Nino - Last Filed: 12/29/17 22:22> <Shelley Auguste - Last Filed: 12/29/17 22:28> - General Chief Complaint: Shortness Of Breath Time Seen by Provider: 12/29/17 19:25 - History of Present Illness Narrative History of Present Illness (Text): 12/29/17 20:00 57 F with history of COPD, asthmatic bronchitis, hypertension, ESRD on HD Monday, , Monday, hyperlipidemia, GI bleed, and AVMs presenting with complaints of shortness of breath which began at midnight. Patient also endorses chest pain which has been present since yesterday. Patient was recently admitted for shortness of breath on 12/23 and discharged on 12/28. Denies nausea, vomiting, diarrhea, cough, fevers, chills, palpitations PMD: Dr. Gomez Meds: Nexium, Crestor, Renvela, Sensipar, Metoprolol, Levocetirizine Surgical history- C sections x 2, cholecystectomy, Right hip surgery,AV fistula Allergies:Penicillin,Ciprofloxacin, Sulfa drugs, Heparin, Iodine, Aspirin, Tylenol, Enalapril, LAtex, citrus, lovenox, iodine, flu vaccine Social- smokes 1/2 pack of cigarettes each day, denies alcohol or drug abuse (Kwasi Nino) Past Medical History - Provider Review Nursing Documentation Reviewed: Yes - Past History Past History: Non-Contributing - Infectious Disease Hx of Infectious Diseases: None - Tetanus Immunization Tetanus Immunization: Up to Date - Cardiac Hx Hypertension: Yes - Pulmonary Hx Chronic Obstructive Pulmonary Disease (COPD): Yes - Neurological Hx Neurological Disorder: No - HEENT Hx HEENT Disorder: Yes Hx Blind: Yes (partial, left eye) - Renal Hx Renal Disorder: Yes Hx Dialysis: Yes Date of Last Dialysis Treatment: 11/30/17 Hx Renal Failure: Yes (Hemodialysis (T, TH,Sat)-SHUNT LEFT UPPER ARM.) - Endocrine/Metabolic Hx Endocrine Disorders: Yes (parathyroid) - Hematological/Oncological Hx Blood Disorders: Yes Hx Anemia: Yes - Integumentary Hx Dermatological Disorder: Yes (LEFT UPPER ARM SHUNT) Other/Comment: CALCIPHYLAXIS-DRY ROUND RASH ALL OVER HER BODY,ARMS,LEG. BILATERAL LEG EDEMA +3,SKIN TIGHTNESS,DISCOLORED DARK BROWN SKIN.TIGHT. - Musculoskeletal/Rheumatological Hx Arthritis: Yes (hips) - Gastrointestinal Hx Gastrointestinal Disorders: Yes (GI BLEED,SBO,APPENDICITIS,INGRAM'S ESOPHAGUS) - Genitourinary/Gynecological Hx Genitourinary Disorders: Yes (OLIGURIA) - Psychiatric Hx Psychophysiologic Disorder: Yes (SMOKED CIGARETTES QUIT ) Hx Substance Use: No - Surgical History Hx Section: Yes (x2) Hx Cholecystectomy: Yes Hx Orthopedic Surgery: Yes (bilateral hips 09/24) Hx Tonsillectomy: Yes Other/Comment: left arm fistula/bicep - Anesthesia Hx Anesthesia Reactions: No Hx Malignant Hyperthermia: No - Suicidal Assessment Feels Threatened In Home Enviroment: No <Kwasi Nino - Last Filed: 12/29/17 22:22> Family/Social History - Physician Review Nursing Documentation Reviewed: Yes Family/Social History: Hypertension Smoking Status: Former Smoker Hx Alcohol Use: No Hx Substance Use: No Hx Substance Use Treatment: No <Kwasi Nino - Last Filed: 12/29/17 22:22> Allergies/Home Meds <Kwasi Nino - Last Filed: 12/29/17 22:22> <Shelley Auguste - Last Filed: 12/29/17 22:28> Allergies/Adverse Reactions: Allergies aspirin Allergy (Severe, Verified 12/21/17 17:41) ANAPHYLAXIS ciprofloxacin Allergy (Severe, Verified 12/21/17 17:41) ANAPHYLAXIS Rowan And Derivatives Allergy (Severe, Verified 12/21/17 17:41) ANAPHYLAXIS enalapril Allergy (Severe, Verified 12/21/17 17:41) HIVES heparin Allergy (Severe, Verified 12/21/17 17:41) ANAPHYLAXIS latex Allergy (Severe, Verified 12/21/17 17:41) ANAPHYLAXIS Penicillins Allergy (Severe, Verified 12/21/17 17:41) ANAPHYLAXIS Sulfa (Sulfonamide Antibiotics) Allergy (Severe, Verified 12/21/17 17:41) ANAPHYLAXIS levothyroxine sodium [From Levoxyl] Allergy (Intermediate, Verified 12/21/17 17: 41) RASH acetaminophen Allergy (Mild, Verified 12/21/17 17:41) RASH codeine Allergy (Mild, Verified 12/21/17 17:41) RASH enoxaparin Allergy (Mild, Verified 12/21/17 17:41) RASH iodine Allergy (Mild, Verified 12/21/17 17:41) RASH influenza virus vaccine, specific Allergy (Verified 12/21/17 17:41) hives Home Medications: Home Meds Medication Instructions Recorded Confirmed Cinacalcet [Sensipar] 30 mg PO DAILY 08/30/17 12/29/17 Esomeprazole Magnesium [Nexium] 40 mg PO DAILY 08/30/17 12/29/17 Ammonium Lactate 12% [Lac-Hydrin 1 applic TOP DAILY 10/10/17 12/29/17 12% Cream (140 g)] Bacitracin, Micronized [Bacitracin] 1 gm MC DAILY 10/10/17 12/29/17 HYDROmorphone [Dilaudid] 1 mg PO Q4H PRN 10/10/17 12/29/17 HYDROmorphone [Dilaudid] 2 mg PO HS 10/10/17 12/29/17 Levalbuterol [Xopenex] 1.25 mg IH Q6H 10/10/17 12/29/17 Sevelamer [Renagel] 800 mg PO DAILY 10/10/17 12/29/17 traMADol [Ultram] 50 mg PO Q8H PRN 10/10/17 12/29/17 Levocetirizine Dihydrochloride 5 mg PO DAILY 12/21/17 12/29/17 Review of Systems - Physician Review All systems were reviewed & negative as marked: Yes - Review of Systems Systems not reviewed;Unavailable: Uncooperative Constitutional: Fatigue. absent: Fevers Eyes: Normal ENT: Normal Respiratory: SOB, Cough, Sputum. absent: Wheezing Cardiovascular: Chest Pain. absent: Palpitations Gastrointestinal: absent: Diarrhea, Nausea, Vomiting Skin: Normal Neurological: Normal. absent: Headache, Dizziness Endocrine: Normal Hemo/Lymphatic: Normal Psychiatric: Normal. absent: Anxiety <Kwasi Nino - Last Filed: 12/29/17 22:22> Physical Exam - Physical Exam Physical Exam Limitations: Uncooperative Vital Signs Reviewed: Yes Temperature: Afebrile Blood Pressure: Normal Pulse: Regular Respiratory Rate: Normal Appearance: Positive for: Well-Appearing, Non-Toxic, Comfortable Pain Distress: None Mental Status: Positive for: Alert and Oriented X 3 - Systems Exam Head: Present: Atraumatic, Normocephalic Pupils: Present: PERRL Mouth: Present: Moist Mucous Membranes Respiratory/Chest: Present: Clear to Auscultation. No: Wheezes, Rales, Rhonchi Cardiovascular: Present: Regular Rate and Rhythm, Normal S1, S2 Abdomen: Present: Tenderness. No: Distention, Rebound, Guarding Upper Extremity: Present: Other (fistula in left arm, previous bruise markings) . No: Normal Inspection, Edema Lower Extremity: Present: Edema (bilateral), CALF TENDERNESS (bilateral), Erythema (bilateral). No: Normal Inspection Neurological: Present: GCS=15, CN II-XII Intact, Speech Normal Skin: Present: Erythematous, Other (various bruisings ) Psychiatric: No: Alert, Normal Concentration <Kwasi Nino - Last Filed: 12/29/17 22:22> Vital Signs Temp Pulse Resp BP Pulse Ox 12/29/17 21:57 100.4 F H 12/29/17 21:29 94 H 18 148/84 99 12/29/17 20:19 101.9 F H 12/29/17 20:10 18 98 12/29/17 19:33 97.8 F 88 18 138/64 100 Medical Decision Making - Lab Interpretations Interpretation: Abnormal lab values (elevated WBC and Troponin) <Kwasi Nino - Last Filed: 12/29/17 22:22> <Shelley Auguste - Last Filed: 12/29/17 22:28> ED Course and Treatment: 12/29/17 22:[address] Gomez who accepts patient to her service. Patient will be admitted for possible HCAP, currently has a leukocytosis new onset as well as elevated troponin from baseline (Kwasi Nino) nsr @ 91 bpm qtc : 460 mS twi in I, aVL, subtly elevated st-t segments in v2/v3 , subtly depressed in II 12/29/17 21:50 (Kalyani,Hemant'Luís) - Lab Interpretations Lab Results: 12/29/17 20:10 12/29/17 20:10 Lab Results 12/29/17 21:04: pO2 218 H, VBG pH 7.46 H, VBG pCO2 41.0, VBG HCO3 29.2 H, VBG Total CO2 30.5 H, VBG O2 Sat (Calc) 99.9 H, VBG Base Excess 4.9 H, VBG Potassium 4.1, Glucose 115 H, Lactate 2.0, FiO2 21.0, Sodium 132.0, Chloride 96.0 L, Venous Blood Potassium 4.1 12/29/17 20:10: PT 14.8 H, INR 1.29 H, APTT 28.3 12/29/17 20:10: Sodium 134, Potassium 4.0, Chloride 93 L, Carbon Dioxide 26, Anion Gap 19, BUN 39 H, Creatinine 3.9 H, Est GFR ( Amer) 14, Est GFR ( Non-Af Amer) 12, Random Glucose 112 H, Calcium 9.7, Phosphorus 3.9, Magnesium 2.0, Total Bilirubin 3.4 H, AST 44 H D, ALT 39, Alkaline Phosphatase 745 H D, Troponin I 0.17 H* D, Total Protein 6.6, Albumin 3.6, Globulin 3.0, Albumin/ Globulin Ratio 1.2 12/29/17 20:10: WBC 12.2 H D, RBC 4.49, Hgb 11.5 L, Hct 36.3, MCV 80.8, MCH 25.6 , MCHC 31.7, RDW 17.2 H, Plt Count 135, MPV 9.7, Gran % 87.4 H, Lymph % (Auto) 5.5 L, Morgan % (Auto) 6.9 H, Eos % (Auto) 0.2 L, Baso % (Auto) 0.0, Gran # 10.66 H, Lymph # (Auto) 0.7 L, Morgan # (Auto) 0.8 H, Eos # (Auto) 0.0, Baso # (Auto) 0.00 - RAD Interpretation Radiology Orders: 12/29/17 19:32 CHEST PORTABLE [RAD] Stat - Medication Orders Current Medication Orders: Atorvastatin Calcium (Lipitor) 80 mg PO DIN LEX Cinacalcet (Sensipar) 30 mg PO DAILY LEX Hydromorphone HCl (Dilaudid) 1 mg PO Q4H PRN PRN Reason: Pain, moderate (4-7) Lactic Acid (Lac-Hydrin 12% Cream (140 G)) 0 ea TOP DAILY LEX Levalbuterol HCl (Xopenex) 1.25 mg IH Q6H LEX Loratadine (Claritin) 10 mg PO DAILY LEX Methylprednisolone (Solu-Medrol) 40 mg IV Q8H LEX Metoprolol Succinate (Toprol Xl) 25 mg PO DAILY LEX Sevelamer HCl (Renagel) 800 mg PO DAILY LEX Discontinued Medications Vancomycin HCl (Vancomycin 1gm) 1 gm in 250 mls @ 167 mls/hr IVPB STAT STA PRN Reason: Protocol Stop: 12/29/17 21:55 Last Admin: 12/29/17 20:57 Dose: 167 mls/hr eMAR Start Stop Document 12/29/17 20:57 OCS (Rec: 12/29/17 20:58 OCS [id number]) Intravenous Solution Start Date 12/29/17 Start Time 20:58 End Date 12/29/17 End time 22:28 Total Infusion Time 90 Ipratropium [place] (Atrovent) 0.5 mg IH STAT STA Stop: 12/29/17 19:38 Last Admin: 12/29/17 20:28 Dose: 0.5 mg Methylprednisolone (Solu-Medrol) 125 mg IVP STAT STA Stop: 12/29/17 20:00 Last Admin: 12/29/17 20:28 Dose: 125 mg IVP Administration Document 12/29/17 20:28 OCS (Rec: 12/29/17 20:28 OCS [id number]) Charges for Administration # of IVP Administrations 1 - PA / RANGE MANAGEMENT SPECIALIST / Resident Statement / has reviewed & agrees with the documentation as recorded. <Shelley Auguste - Last Filed: 12/29/17 22:28> Disposition/Present on Arrival - Present on Arrival Any Indicators Present on Arrival: No History of DVT/PE: No History of Uncontrolled Diabetes: No Urinary Catheter: No History of Decub. Ulcer: No History Surgical Site Infection Following: None - Disposition Have Diagnosis and Disposition been Completed?: Yes Disposition Time: 22:16 Patient Plan: Admission <Kwasi Nino - Last Filed: 12/29/17 22:22> <Shelley Auguste - Last Filed: 12/29/17 22:28> - Disposition Diagnosis: Hospital acquired PNA Disposition: HOSPITALIZED Patient Problems: Current Active Problems Problem Status Onset Hospital acquired PNA Acute Condition: GUARDED
[2017-12-29 20:23] LABS: EOS % 0.2 % (1.5-5.0); GRAN # 10.66 (1.4-6.5); GRAN % 87.4 % (50.0-68.0); HEMOGLOBIN 11.5 g/dL (12.0-16.0); LYMPH # 0.7 (1.2-3.4); LYMPH % 5.5 % (22.0-35.0); MEAN CELL VOLUME 80.8 fl (80.0-105.0); MEAN CORPUSCULAR HEMOGLOBIN 25.6 pg (25.0-35.0); MEAN CORPUSCULAR HGB CONC 31.7 g/dl (31.0-37.0); MEAN PLATELET VOLUME 9.7 fl (7.0-11.0); MONO # 0.8 (0.1-0.6); MONO % 6.9 % (1.0-6.0); RBC 4.49 10^6/uL (3.5-6.1); RED CELL DISTRIBUTION WIDTH 17.2 % (11.5-14.5); WHITE BLOOD COUNT 12.2 10^3/ul (4.5-11.0)
[2017-12-29] MEDS ORDERED: Vancomycin 1gm in NS 250ml 1 GM/250 ML BAG IVPB STA (20:26)
[2017-12-29 20:32] LABS: INR 1.29 (0.93-1.08); PARTIAL THROMBOPLASTIN TIME 28.3 Seconds (25.1-36.5); PROTHROMBIN TIME 14.8 SECONDS (9.4-12.5)
[2017-12-29 20:33] LABS: ALB/GLOB RATIO 1.2 (1.1-1.8); ALBUMIN 3.6 g/dL (3.0-4.8); CALCIUM 9.7 mg/dL (8.4-10.5)
[2017-12-29 21:04] LABS: TROPONIN I 0.17 ng/mL
[2017-12-29 21:13] LABS: VENOUS BLOOD GAS BASE EXCESS 4.9 mmol/L (0.0-2.0); VENOUS BLOOD GAS PO2 218 mm/Hg (30-55); VENOUS BLOOD PH 7.46 (7.32-7.43)
[2017-12-29] MEDS: MethylPREDNISolone 40 mg Vial IV SCH (23:23)
[2017-12-29] MEDS: Levalbuterol 1.25 MG/3 ML Inhal Soln UD IH SCH (23:23)
--- NOTE | 2017-12-30 00:17 | CT ---
EXAM: CT Chest Without Intravenous Contrast CLINICAL HISTORY: 57 years old, female; Signs and symptoms; Shortness of breath; Prior surgery; Surgery date: 6+ months; Surgery type: HX cardiac catheterization; Additional info: Sob/leukocytosis TECHNIQUE: Axial computed tomography images of the chest without intravenous contrast. All CT scans at this facility use one or more dose reduction techniques, viz.: automated exposure control; ma/kV adjustment per patient size (including targeted exams where dose is matched to indication; i.e. head); or iterative reconstruction technique. Coronal and sagittal reformatted images were created and reviewed. COMPARISON: CT - CHEST W/O CONTRAST 2017-12-22 12:55 FINDINGS: Lungs: Bilateral prominence of the interstitial markings. Nonspecific bilateral groundglass opacity. Tiny confluent opacity laterally in the left upper lobe measuring 1.2 CM. Tiny calcified granuloma posteriorly at right lung base. Pleural space: Unremarkable. No pneumothorax. No significant effusion. Heart: See below. Thyroid: Calcified left thyroid nodule. Bones/joints: Diffuse spinal degenerative changes. No acute fracture. No dislocation. Soft tissues: Unremarkable. Vasculature: Left subclavian vein stent. Atherosclerotic vascular disease. 1.6 CM splenic artery aneurysm, stable. Moderate to severe cardiomegaly. Lymph nodes: Unremarkable. No enlarged lymph nodes. Kidneys and ureters: Atrophic [place] kidneys. Intraperitoneal space: Small amount of perihepatic ascites. IMPRESSION: 1. Tiny nonspecific focal opacity laterally in the left upper lobe, may represent early/ developing infiltrate. 2. Interval improvement in bilateral basilar atelectasis. 3. Remainder of findings as above.
[2017-12-30 00:26] LABS: VENOUS BLOOD GAS BASE EXCESS 3.6 mmol/L (0.0-2.0); VENOUS BLOOD GAS PO2 110 mm/Hg (30-55)
--- NOTE | 2017-12-30 04:22 | HP ---
DATE OF EXAM: 12/29/2017 HISTORY OF PRESENT ILLNESS: The patient is 57-year-old who was admitted last week with COPD exacerbation. She was given IV steroids and nebulizer treatment. She was admitted for 3 to 4 days. She started to feel better. Her steroids are tapered down and she was discharged home yesterday. Patient states she has been taking nebulizer treatment. She was switched to p.o. steroids, but her shortness of breath got worse, she was unable to catch breath, so she called ambulance. She was brought to the emergency room. The patient was dialyzed yesterday. Denies any fever or chills. No history of nausea or vomiting. No hemoptysis. No hematemesis. Complaining of generalized weakness, has difficulty walking, feels dizzy at times. PAST MEDICAL HISTORY: Significant for: 1. End-stage renal disease on hemodialysis. 2. Pulmonary hypertension. 3. Cardic cirrhosis. 4. Cardiomyopathy. 5. Peptic ulcer disease. 6. History of GI bleed secondary to AVMs, had multiple endoscopies done. 7. Chronic anemia. ALLERGIES: THE PATIENT HAS MULTIPLE ALLERGIES INCLUDING ASPIRIN, CIPROFLOXACIN, CITRUS, ENALAPRIL, HEPARIN, LATEX, PENICILLIN, SULFA, LEVOTHYROXINE, ACETAMINOPHEN, CODEINE, ENOXAPARIN, IODINE, AND FLU VACCINE. MEDICATION AT HOME: She is on: 1. Dilaudid 1 mg every four, SHE IS ALLERGIC TO ALMOST ALL NARCOTICS. 2. She takes Nexium 40 mg daily. 3. Sensipar 30 mg daily. 4. Atorvastatin 80 mg daily. 5. Prednisone tapering dose. 6. Renagel 800 daily. 7. Metoprolol 25 mg daily. 8. Claritin 10 mg daily. SOCIAL HISTORY: She lives with her boyfriend. She is active smoker, smokes about one pack a day. PHYSICAL EXAMINATION: GENERAL: She is awake, alert and oriented, communicative, with mild shortness of breath. VITAL SIGNS: She has temperature of 101.9, pulse 88, respirations 18, blood pressure 148/54. LUNGS: Bilateral expiratory rhonchi. HEART: S1 and S2 audible. ABDOMEN: Soft, nontender. No rebound, no guarding. NEUROLOGICAL: She is awake, alert and oriented, communicative. LABORATORY DATA: WBC is 12.2, hemoglobin 11.5, hematocrit 36.3, platelet 135. PT 14.8, INR 1.09. Chemistry: Sodium 134, potassium 4, chloride 93, CO2 of 23, BUN 39, creatinine 3.9. Blood sugar of 112. LFTs are within normal limits. Total bilirubin 3.4. AST 44, troponin 0.17. ASSESSMENT AND PLAN: 1. Chronic obstructive pulmonary disease exacerbation. 2. Positive troponin because of demand ischemia. 3. Active smoker. 4. Asthmatic bronchitis. 5. End-stage renal disease, on hemodialysis. 6. Hypertension. 7. Gastrointestinal bleed. PLAN: We will start the patient on IV steroids, Protonix, continue nebulizer treatment, Dr. Rose for consult, we will followup the patient in a.m., also start her on IV antibiotics. Shawn Gomez MD
[2017-12-30 05:11] VITALS: BMI 25.0
[2017-12-30] MEDS: metroNIDAZOLE IV 500 mg/100 ml 500 MG/100 ML BAG IVPB SCH ×3 (06:13→21:39)
[2017-12-30] MEDS: MethylPREDNISolone 40 mg Vial IV SCH ×2 (06:13→21:38)
[2017-12-30] MEDS: Levalbuterol 1.25 MG/3 ML Inhal Soln UD IH SCH ×3 (07:30→21:33)
[2017-12-30] MEDS ORDERED: Levalbuterol 1.25 MG/3 ML Inhal Soln UD IH SCH (08:30)
--- NOTE | 2017-12-30 09:10 | RAD ---
HISTORY: SOB COMPARISON: Comparison made with prior chest radiograph dated 12/26/2017 FINDINGS: LUNGS: The interstitial markings are slightly increased ; rule out mild chronic compensated pulmonary edema/ CHF or fluid overload. PLEURA: No significant pleural effusion identified, no pneumothorax apparent. CARDIOVASCULAR: Heart remains enlarged. Re- demonstrated are endovascular stent grafts in the left subclavian region in soft tissues of the left upper extremity. OSSEOUS STRUCTURES: No significant abnormalities. VISUALIZED UPPER ABDOMEN: Normal. OTHER FINDINGS: None. IMPRESSION: Cardiomegaly. Findings suggest mild chronic compensated pulmonary edema/ CHF or fluid overload
[2017-12-30 11:20] LABS: GRAN # 5.85 (1.4-6.5); GRAN % 95.4 % (50.0-68.0); LYMPH # 0.2 (1.2-3.4); LYMPH % 3.8 % (22.0-35.0); MEAN CELL VOLUME 80.3 fl (80.0-105.0); MEAN CORPUSCULAR HEMOGLOBIN 25.3 pg (25.0-35.0); MEAN CORPUSCULAR HGB CONC 31.5 g/dl (31.0-37.0); MEAN PLATELET VOLUME 9.9 fl (7.0-11.0); MONO # 0.1 (0.1-0.6); MONO % 0.8 % (1.0-6.0); PLATELET COUNT 99 10^3/uL (120.0-450.0); RBC 3.95 10^6/uL (3.5-6.1); WHITE BLOOD COUNT 6.1 10^3/ul (4.5-11.0)
[2017-12-30 11:39] LABS: ALB/GLOB RATIO 1.1 (1.1-1.8); ALBUMIN 2.8 g/dL (3.0-4.8); CALCIUM 9.1 mg/dL (8.4-10.5)
[2017-12-30 11:45] LABS: LYMPHOCYTE 3 % (22.0-35.0); NEUTROPHIL 96 % (50.0-70.0)
[2017-12-30 11:46] LABS: MONOCYTE 1 % (1.0-6.0)
--- NOTE | 2017-12-30 12:33 | CARD ---
APPROVED REPORT EKG Measurement Heart [id number] <Conclusion> Normal sinus rhythm Moderate voltage criteria for LVH, may be normal variant ST & T wave abnormality, consider lateral ischemia Abnormal ECG
[2017-12-30] MEDS: Ammonium Lactate 12% Cream (140 g) TOP SCH (13:50)
[2017-12-30] MEDS: Metoprolol Succinate 25 mg XL Tab PO SCH (13:52)
--- NOTE | 2017-12-30 15:23 | PN ---
DATE: 12/30/2017 SUBJECTIVE: The patient is a 57-year-old, seen in Renal Department, getting dialysis, complained of cough, congestion, had difficulty breathing last night, so came to the emergency room. PHYSICAL EXAMINATION: GENERAL: She is awake, alert, and oriented, mild shortness of breath. VITAL SIGNS: She has temperature of 100 this morning, pulse 85, respiration 18, blood pressure 150/76. LUNGS: Bilateral diffusely decreased breath sounds with occasional rhonchi. HEART: S1 and S2 audible. ABDOMEN: Soft, nontender. No rebound, no guarding. NEUROLOGICAL: She is awake and alert, able to communicate. LABORATORY DATA: Her CT scan of the chest that was done last night shows tiny nonspecific focal opacity likely in the left upper lobe, may represent early pneumonia, internal improvement in the bilateral basal atelectasis. ASSESSMENT: 1. Healthcare-associated pneumonia. 2. Chronic obstructive pulmonary disease exacerbation. 3. Bronchospasm. 4. End-stage renal disease, on hemodialysis. 5. Hypertension. PLAN: The patient is currently on Azactam every 12 as recommended by ID. She is on nebulizer treatment. She is on doxycycline. We will cut down her steroids to 40 every 12 and she received one dose of vancomycin and request for physical therapy evaluation. Shawn Gomez MD
--- NOTE | 2017-12-30 17:03 | CON ---
DATE: 12/30/2017 LOCATION: Patient is seen in 260, bed 2. CHIEF COMPLAINT: Temperature and shortness of breath for several days. HISTORY OF PRESENT ILLNESS: This is a 57-year-old female, end-stage renal disease on hemodialysis, hypertension, chronic obstructive lung disease, GERD, history of C. diff, history of pancreatitis, congestive heart failure, and brain aneurysm, who was admitted with a diagnosis of COPD exacerbation. Patient had a fever of 101.9. Infectious disease consultation requested, reveals the patient did have fevers and chills. There is shortness of breath, there is cough. Cough is nonproductive. No abdominal pain, diarrhea, or constipation. REVIEW OF SYSTEMS: Twelve-point review systems is noted and performed. PAST MEDICAL HISTORY: Significant for end-stage renal disease on hemodialysis, hypertension, chronic obstructive lung disease, GERD, C. diff, pancreatitis, congestive heart failure, hyperlipidemia, and brain aneurysm. PAST SURGICAL HISTORY: Bilateral hip surgery, left arm fistula, tonsillectomy, and . ALLERGIES: PATIENT IS ALLERGIC TO CIPRO, ASPIRIN, PENICILLIN, SULFA, AND LATEX. PHYSICAL EXAMINATION: VITAL SIGNS: Temperature is 101.9, blood pressure is 153/77, respiratory rate of 18, heart rate of 94. HEENT: Unremarkable. NECK: Supple. LUNGS: Decreased breath sounds. HEART: Normal S1, S2. ABDOMEN: Soft, nontender. There is mild tenderness in the right lower quadrant. No rebound or guarding. LABORATORY DATA: Reveals a white count of 12,200, hemoglobin of 11, and platelets of 135. Chemistries are noted. BUN of 39, creatinine of 3.9. Troponin is 0.17, alkaline phosphatase is 745. Patient's chest x-ray is done, but no results are available. Patient had a CAT scan of the chest, which shows bilateral nonspecific bilateral ground glass opacity. History and physical examinations reviewed, emergency room chart is reviewed. Blood cultures are pending. Urine and sputum cultures have been ordered. Procalcitonin is ordered. ASSESSMENT AND PLAN: This is a 57-year-old female with end-stage renal disease on hemodialysis, hypertension, chronic obstructive pulmonary disease, gastroesophageal reflux disease, Clostridium difficile, pancreatitis, congestive heart failure, hyperlipidemia, brain aneurysm, presenting with fever, tachycardia, leukocytosis, and infiltrate, WHO IS ALLERGIC TO PENICILLIN, has abdominal pain. 1. Sepsis with healthcare-associated pneumonia. We will treat patient with vancomycin, Azactam, doxycycline, Flagyl, and order a CAT scan of the abdomen. We will send the urine for Legionella antigen. We will make further recommendations upon availability of initial results. I will check on the CAT scan and cultures, and we will make further recommendations. Patient had received a dose of vancomycin. Sandro Walsh MD
--- NOTE | 2017-12-30 18:10 | CON ---
DATE: 12/30/[address] Gomez. REFERRING PHYSICIAN: Shawn Gomez MD REASON FOR CONSULTATION: To provide dialysis services for a patient known to me from both inpatient and outpatient followup, who presents with mild CHF and a COPD exacerbation once again. HISTORY OF PRESENT ILLNESS: Patient is a 57-year-old female with a history of end-stage renal disease on chronic maintenance hemodialysis for many years, history of anemia secondary to chronic kidney disease, history of COPD secondary to active cigarette smoking. Patient had a recent admission for her COPD exacerbation. She was actually sent home on oral steroid therapy and inhalation therapy. She returned to the hospital 24 hours later with increased shortness of breath, history of GI bleeding secondary to AVMs, history of GERD, history of peptic ulcer disease, history of hypertension, history of cellulitis of her lower extremity, status post right total hip replacement surgery at [facility] earlier this year, history of ejection fraction on her echocardiogram of 45% to 50% with pulmonary hypertension, MR, and TR. Patient had been smoking half a pack per day until the last admission. She returns to the hospital with increased shortness of breath. Patient is due for her routine dialysis treatment today. PAST MEDICAL HISTORY: Significant for end-stage renal disease, history of hypertension, COPD, history of asthma, history of pulmonary hypertension, history of MR/TR, history of ejection fraction 45% to 50%, history of GI bleeding secondary to AVMs and varices, history of GERD, left renal cyst, status post right total hip replacement surgery, history of secondary hyperparathyroidism secondary to chronic kidney disease. MEDICATIONS AT HOME: Include that of p.r.n. Dilaudid, Nexium, Sensipar, bacitracin, Lipitor, Lac-Hydrin, Ultram, prednisone, Renagel, Zofran, Toprol, Claritin, levocetirizine, and Xopenex. ALLERGIES: PATIENT IS ALLERGIC TO ASPIRIN, CIPRO, CITRUS AND DERIVATIVES, ENALAPRIL, HEPARIN, LATEX, PENICILLIN, SULFA, LEVOXYL, TYLENOL, CODEINE, ENOXAPARIN, IODINE, AND INFLUENZA VIRUS VACCINE. MEDICATIONS PRESENTLY IN HOSPITAL: Include that of aztreonam, Claritin, Dilaudid, doxycycline, Flagyl, Lac-Hydrin, Lipitor, Renagel, Sensipar, Solu-Medrol, Toprol, and Xopenex. SOCIAL HISTORY: Patient smokes half-a-pack per day. She states that she stopped prior to the previous hospitalization. She has been smoking for greater than 30 years. No history of alcohol use. FAMILY HISTORY: Noncontributory as per old charts. REVIEW OF SYSTEMS: GENERAL: Patient states since her last admission, no change in appetite. Weight has been stable. ENT: Denies any hearing or visual problems. PULMONARY: Increasing shortness of breath as noted above. CARDIAC: History is stable. Negative recent cardiac catheterization. GI: No nausea, vomiting, diarrhea, abdominal pain, or constipation. : Minimal negligible urine output. 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 ENDOCRINE: History of secondary hyperparathyroidism. No history of diabetes. MUSCULOSKELETAL: No complaints. NEURO: No ongoing issues. No history of CVA, TIA, seizures, or syncope. HEME/ONC: History of anemia secondary to chronic kidney disease. No history of malignancy. PSYCHIATRIC: History is negative. PHYSICAL EXAMINATION: GENERAL: Patient is currently seen on 2R. She is lying comfortable supine in bed. She appears to be a bit depressed about having to be readmitted back to the hospital. VITAL SIGNS: Blood pressure is 150/76. Temperature T-max was 100, currently 97.8. Pulse was 70 with a respiratory rate of 20. Oxygen saturation is 100%. HEENT: Sow her to be normocephalic, atraumatic. Conjunctivae are pink. Sclerae nonicteric. Pupils are equal and reactive to light and accommodation. Extraocular muscles are intact. Posterior pharynx appears normal. NECK: Supple. No neck vein distention or lymphadenopathy. No thyromegaly. No bruits. CHEST: Scattered rhonchi. No rales or wheezing. ABDOMEN: Soft, nontender. No masses. No rebound or guarding. CARDIOVASCULAR: Shows a regular rate and rhythm with TR/MR. No S3, no S4, no rub. Distal lower extremity pulses are 1 to 2+ plus bilaterally. EXTREMITIES: She does have trace ankle edema bilaterally. Positive left upper extremity AV fistula. Positive thrill. Positive bruit. NEURO: Shows her to be alert and oriented x3 with no gross focal motor or sensory deficits noted. LABORATORY DATA AND IMAGING: Admitting chest x-ray shows mild CHF, cardiomegaly. Admitting chest CT scan shows a small infiltrate in the left upper lobe perhaps infectious, with bilateral atelectasis which appears to be improved. Admitting EKG shows a normal sinus rhythm with no acute ST or T-wave changes. Labs: CBC: White blood cell count 12.2, hemoglobin 11.5 with a platelet count of 135,000. Coags: PT of 14.8 with a PTT of 28.3. Admitting blood gas showed a pO2 of 218 with a pH of 7.46 and a pCO2 of 41. Chemistries from yesterday showed normal electrolytes. BUN 39 with a creatinine of 3.9. Glucose 112. Calcium 9.7, phosphorus 3.9, magnesium level 2. Bilirubin mildly elevated at 3.4, AST is 44, alkaline phosphatase is elevated at 745. Troponin is mildly elevated at 0.17. Microbiology: No results available for comment. ASSESSMENT: 1. End-stage renal disease. Patient will continue her routine Monday, , and Monday dialysis. She is scheduled for dialysis today. We will increase ultrafiltration in light of the mild congestive heart failure on her chest x-ray and mild lower extremity edema. 2. Chronic obstructive pulmonary disease exacerbation with perhaps developing pneumonia. Patient will continue antibiotic therapy. She will continue IV steroids. She will continue respiratory therapy. 3. History of anemia secondary to chronic kidney disease. Patient will receive Aranesp and iron per protocol on dialysis. 4. 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 History of gastroesophageal reflux disease, history of varices. 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 No evidence for bleeding presently. 5. History of hypertension. Blood pressure is controlled on low-dose beta-edith therapy. 6. History of a stable left renal cyst. 7. History of pulmonary hypertension, likely contributing somewhat to her shortness of breath. 8. History of cardiac ejection fraction of 45% to 50% with mitral regurgitation/tricuspid regurgitation, currently stable. 9. Status post right total hip replacement surgery. PLAN: 1. Discussed with the patient. We will continue her on IV steroids, antibiotic therapy, and inhalation therapy. 2. In light of her recent readmission for similar presenting symptom, patient will likely be in the hospital longer receiving IV steroid therapy instead of a rapid transfer over to oral steroid therapy. 3. Continue renal diet, continue Sensipar, continue Renagel binder therapy. 4. Discussed with staff on 2R. 5. Close renal followup during hospitalization. Thank you for letting me partake and share in the care of our mutual patient. Deon Mathews MD
[2017-12-31] MEDS: Levalbuterol 1.25 MG/3 ML Inhal Soln UD IH SCH ×4 (02:38→20:55)
[2017-12-31] MEDS: metroNIDAZOLE IV 500 mg/100 ml 500 MG/100 ML BAG IVPB SCH (05:19)
[2017-12-31] MEDS ORDERED: Barium Sulfate Susp 2.1% w/v, 2.0% w/w 450 mL Bottle PO ONE (08:04)
[2017-12-31] MEDS: MethylPREDNISolone 40 mg Vial IV SCH ×2 (09:11→21:45)
[2017-12-31] MEDS: Metoprolol Succinate 25 mg XL Tab PO SCH (09:12)
[2017-12-31] MEDS: Ammonium Lactate 12% Cream (140 g) TOP SCH (09:12)
[2017-12-31] MEDS ORDERED: Vancomycin 1gm in NS 250ml 1 GM/250 ML BAG IVPB STA (11:03)
--- NOTE | 2017-12-31 11:21 | CT ---
PROCEDURE: CT scan abdomen and pelvis dated 12/31/2017 HISTORY: Abdominal pain COMPARISON: Comparison made with prior CT scan abdomen pelvis dated 12/11/2017 correlation also made with prior CT scan chest 12/29/2017 which image both lung bases. TECHNIQUE: Contiguous axial images of the abdomen and pelvis performed without oral or intravenous contrast material. Additional 2D sagittal and coronal reformats generated. Radiation dose: Total exam DLP = 408.35 mGy-cm. This CT exam was performed using one or more of the following dose reduction techniques: Automated exposure control, adjustment of the mA and/or kV according to patient size, and/or use of iterative reconstruction technique. . FINDINGS: LOWER THORAX: Heart remains markedly enlarged. Suspect trace pericardial effusion. Small bilateral effusions and mild bibasilar atelectasis left greater than right. In addition, there also appears to be some mild ground-glass opacities in both lower lungs with increased vascularity. Findings could represent the sequela of above pulmonary edema/ fluid overload or CHF. Clinical correlation recommended LIVER: Liver is enlarged measuring over 19 cm in CC dimension. No obvious hepatic mass or collection seen on this noncontrast study. There is a small amount of perihepatic ascites GALLBLADDER AND BILE DUCTS: Cholecystectomy. PANCREAS: Pancreas appears slightly atrophic and fatty replaced. No obvious pancreatic masses or collections. SPLEEN: Spleen exhibits normal size. Re- demonstrated is a small splenic artery aneurysm measuring approximately 17.3 mm. ADRENALS: No adrenal masses. KIDNEYS AND URETERS: Kidneys remain markedly atrophic. There appear to be at least 2 mid hyperdense on exophytic lesions arising from the left kidney likely representing hyperdense cysts. Renal ultrasound could confirm and exclude any solid lesion components. BLADDER: Urinary bladder poorly seen due to streak and beam hardening artifact arising from right-sided total hip replacement. Urinary bladder appears collapsed and therefore cannot be adequately evaluated. REPRODUCTIVE: What appears what is felt to represent the uterus appears grossly unremarkable so far as can be seen. . APPENDIX: The appendix the is not seen seen on this exam BOWEL: Evaluation of the bowel is limited the due to the lack of oral contrast material. The stomach is distended with food debris liquid and air. Apparent postoperative changes of the stomach. Clinical correlation with surgical history. Visualized loops of small bowel exhibit normal contour and caliber. No evidence of acute mechanical small bowel obstruction. Most of the colon is collapsed and therefore cannot be adequately evaluated. PERITONEUM: As mentioned above, small amount of perihepatic ascites present. There is also small amount of ascites seen in the pelvis. LYMPH NODES: Evaluation for adenopathy is somewhat limited. VASCULATURE: Unremarkable. No aortic aneurysm. BONES: Minor multilevel fish-mouth endplate deformities of several on lower thoracic segments. No acute compression fractures no retropulsed fragments. Degenerative osteoarthritis right hip. Right total hip replacement. OTHER FINDINGS: Diffuse anasarca. IMPRESSION: Cardiomegaly with suspected trace effusion. Small bilateral effusions and mild bibasilar atelectasis left greater than right. Ground-glass opacities of both lung bases with increased vascularity ; rule out pulmonary related to fluid overload or possibly CHF. Clinical correlation recommended. Hepatomegaly. Small amount of very hepatic at ascites with ascites also seen in the pelvis. Cholecystectomy. Diffuse anasarca.
--- NOTE | 2017-12-31 14:14 | PN ---
DATE: 12/31/2017 SUBJECTIVE: The patient is currently seen just having returned from having an abdominal CT scan. Her COPD appears to be improved. She had an uneventful dialysis yesterday. She is complaining of less shortness of breath, less chest congestion and at present, less abdominal pain. MEDICATIONS: Medication list reviewed. The patient is currently on aztreonam, Claritin, Dilaudid, doxycycline, Lac-Hydrin, Lipitor, Renagel, Sensipar, Solu-Medrol, Toprol, IV vancomycin and Xopenex. OBJECTIVE: INTAKE/OUTPUT: Intake 1160, output 100 plus dialysis. VITAL SIGNS: Blood pressure 144/76, temperature 97.8, respiratory rate is 20 with a pulse of 76. HEENT: Shows her to be normocephalic, atraumatic. Conjunctivae are pink. Sclerae are nonicteric. NECK: Supple. No neck vein distention. CHEST: Clear to auscultation and percussion with decreased rhonchi. No rales or wheezing. CARDIOVASCULAR: Regular rate and rhythm with MR/TR. EXTREMITIES: Show no lower extremity edema. Positive left upper extremity AV fistula. LABORATORY DATA AND IMAGING No labs done today. Yesterday's predialysis labs, white blood cell count 6.1, hemoglobin of 10 with white count of 99,000. Chemistries showed normal electrolytes, predialysis. BUN 45, creatinine 4.3, glucose 129. Calcium 9.1, phosphorus of 5.5. Alkaline phosphatase remains elevated, likely secondary to secondary hyperparathyroidism. Microbiology: Blood cultures are positive for gram-positive cocci. ASSESSMENT: 1. End-stage renal disease. The patient will continue three times a week dialysis. Admitting chest x-ray showed mild congestive heart failure. 2. Chronic obstructive pulmonary disease with exacerbation. Unclear whether or not the patient has pneumonia. There appears to be one positive blood culture. She will continue on antibiotic therapy. She will continue on steroids and respiratory therapy. 3. History of anemia secondary to chronic kidney disease. Hemoglobin presently stable. Should continue Aranesp and iron on dialysis. 4. 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 History of gastroesophageal reflux disease and varices. 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 Not presently bleeding. 5. History of hypertension. Blood pressure controlled on present low-dose beta-edith therapy. 6. History of secondary hyperparathyroidism. The patient will continue Sensipar. The patient will continue binder therapy. Phosphorus level is acceptable at 5.5. Calcium is 9.1. 7. History of a stable left renal cyst, unchanged. 8. History of pulmonary hypertension. 9. Ejection fraction 45-50% with mitral regurgitation/tricuspid regurgitation, currently stable. 10. Status post right total hip replacement surgery. PLAN: 1. Discussed with Dr. Gomez. There is some concern about the possibility of calciphylaxis. The patient has a long history of chronic kidney disease, history of uncontrolled secondary hyperparathyroidism. She continues on non-calcium based binder therapy. We will continue to keep calcium and phosphorus levels at the lowest possible range. Unfortunately, there is no great therapies available for treatment of calciphylaxis if indeed she is starting to develop this. 2. Continue IV steroids. Continue antibiotic therapy. Continue inhalation therapy. 3. Follow up blood cultures. 4. Continue three times a week dialysis. 5. Continue to monitor the patient on 2R. 6. Check her abdominal CT scan. Deon Mathews MD
--- NOTE | 2017-12-31 15:36 | PN ---
DATE: 12/31/2017 SUBJECTIVE: The patient is in bed, in no acute distress. OBJECTIVE: VITAL SIGNS: On exam, temperature is 98, blood pressure is 140/70, respiratory rate of 20, heart rate of 70. HEENT: Examination is unremarkable. NECK: Supple. LUNGS: Have decreased breath sounds. HEART: Normal S1, S2. ABDOMEN: Soft, nontender. DATA: Laboratory examination reveals a white count of 6.1, hemoglobin of 10, platelets of 999. BUN of 45, creatinine of 4.3. Blood culture is positive for gram-positive cocci in one bottle, the second bottle is negative. The patient is currently on aztreonam and doxycycline. Repeat blood cultures were ordered. CAT scan of the abdomen pelvis is pending. ASSESSMENT AND PLAN: This is a 57-year-old female seen early this morning with end-stage renal disease, on hemodialysis;hypertension; chronic obstructive lung disease, gastroesophageal reflux disease, history of clostridium difficile, history of pancreatitis, congestive heart failure, brain aneurysm admitted with chronic obstructive lung disease exacerbation and fever of 101 now with sepsis with gram-positive cocci bacteremia and healthcare-associated pneumonia. We will give another dose of vancomycin. Check on the identification of gram-positive cocci and sensitivity of repeat blood cultures times 2 and then, give another vancomycin. Check on an echo to rule out endocarditis. We will follow with you. Sandro Walsh MD
--- NOTE | 2017-12-31 15:39 | PN ---
DATE: 12/31/2017 SUBJECTIVE: The patient is 57 years old, seen and examined. Still has cough and congestion. No history of nausea or vomiting. Oral intake is poor though. Still coughing with still has productive cough. PHYSICAL EXAMINATION: VITAL SIGNS: She is afebrile, pulse 70, respirations 18, blood pressure 141/68. LUNGS: Bilateral fair airflow. No rhonchi. Bilateral soft crackles. HEART: S1 and S2 audible. ABDOMEN: Soft. Nontender. No rebound. No guarding. NEUROLOGICAL: The patient is awake, alert, oriented. Has generalized weakness. Recently has right hip reconstruction surgery done. SKIN: She has generalized lesion on her both arms and on the neck. LABORATORY EXAM: WBC 6.1, hemoglobin 10, hematocrit 31, platelet of 99. Chemistry: Sodium 135, potassium 3.9, chloride 95, CO2 of 25, BUN 45, creatinine 4.3, blood sugar of 129. She had CT scan of the abdomen and pelvis done that shows cardiomegaly with suspected trace effusion. Small bilateral effusion and mild bibasilar atelectasis, left greater than the right. Ground glass opacity of the both lung bases with increased vascularity. Status post cholecystectomy. Blood cultures are positive for gram positive cocci. ASSESSMENT: 1. Gram-positive cocci bacteremia. 2. Asthmatic bronchitis. 3. Active smoker. 4. Bilateral hip congenital deformity. 5. Bronchospasm. PLAN: The patient is currently on Azactam. We will continue on steroid, cut down to 30 every 12. Continue nebulizer treatment. Repeat blood cultures are ordered by Dr. Walsh. Echocardiogram has also been ordered to rule out endocarditis. The patient is hemodynamically stable. We can discontinue her telemetry. Shawn Gomez MD
[2018-01-01] MEDS: Levalbuterol 1.25 MG/3 ML Inhal Soln UD IH SCH ×4 (02:35→19:45)
[2018-01-01] MEDS ORDERED: Vancomycin 500mg in NS 500 MG/100 ML BAG IVPB STA (09:14)
[2018-01-01] MEDS: Metoprolol Succinate 25 mg XL Tab PO SCH (10:52)
[2018-01-01] MEDS: MethylPREDNISolone 40 mg Vial IV SCH ×2 (10:54→21:37)
[2018-01-01] MEDS: Ammonium Lactate 12% Cream (140 g) TOP SCH (11:04)
--- NOTE | 2018-01-01 11:06 | PN ---
DATE: 01/01/2018 SUBJECTIVE: The patient is in bed, in no acute distress, nontoxic. PHYSICAL EXAMINATION: VITAL SIGNS: Temperature is 97, blood pressure is 124/70, respiratory rate of 16. HEENT: Examination of HEENT is unremarkable. NECK: Supple. LUNGS: Have decreased breath sounds. HEART: Normal S1, S2. ABDOMEN: Soft, nontender. LABORATORY DATA: Laboratory examination reveals the patient's gram positive blood cultures are negative for Enterococcus and probable Strep by PNA-FISH is in chains and the only one bottle, second bottle is no growth. Repeat blood cultures are pending. Urine for Legionella antigen is pending. The patient is on aztreonam and intermittent vancomycin. Echo is pending. The patient also had a CAT scan of the abdomen and pelvis, which shows cardiomegaly and suspected trace effusion and small amount of hepatic ascites, cholecystectomy, diffuse anasarca. Dr. Gomez's note is reviewed. ASSESSMENT AND PLAN: A 57-year-old female seen earlier in 578, bed 1 with end-stage renal disease, on hemodialysis, chronic obstructive lung disease, gastroesophageal reflux disease, history of Clostridium difficile, history of pancreatitis, congestive heart failure, brain aneurysm, admitted with a chronic obstructive lung disease exacerbation and fever with a gram-positive cocci bacteremia and a healthcare-associated pneumonia. I am waiting for identification and sensitivity of the gram-positive cocci in the blood and echocardiogram results and repeat blood culture results. Today is day #3 of vancomycin intermittently and Azactam. We will also give another dose of vancomycin today. Sandro Walsh MD
--- NOTE | 2018-01-01 12:18 | PN ---
DATE: 01/01/2018 SUBJECTIVE: The patient is currently seen sitting up in a chair on 5R. She still continues to complain of some mild shortness of breath. She remains on IV antibiotic therapy, IV steroids and inhalation therapy for COPD exacerbation. She is still complaining of mild abdominal pain. Her abdominal CT scan done yesterday showed bilateral pleural effusions with mild bibasilar atelectasis, left greater than right; ground-glass opacities in both lung bases with an increased vascularity. Possible CHF, possible mild fluid overload, hepatomegaly. Status post cholecystectomy, diffuse anasarca and small amount of ascites. MEDICATIONS: Medication list reviewed. The patient is currently on Azactam, Claritin, Dilaudid, doxycycline, Lac-Hydrin, Lipitor, Renagel, Sensipar, Solu-Medrol, Toprol and Xopenex. OBJECTIVE: INTAKE/OUTPUT: Intake 1000, output 0. VITAL SIGNS: Blood pressure 124/72, temperature 97.6, respiratory rate is 18. Oxygen saturation 99%. Her pulse was 72. HEENT: Shows her to be normocephalic, atraumatic. Conjunctivae are pale. Sclerae are mildly icteric. NECK: Supple. No neck vein distention. CHEST: Scattered rhonchi. No rales or wheezing. CARDIOVASCULAR: Shows a regular rate and rhythm with MR/TR. EXTREMITIES: Show no lower extremity edema. Positive left upper extremity AV fistula. LABORATORY DATA AND IMAGING: CBC: White blood cell count 6.1, hemoglobin 10, platelet count is 99,000. Chemistries from earlier in the weekend showed a BUN of 45 with creatinine of 4.3. Sodium level was 135 with a potassium of 3.9. Glucose is 129. Calcium 9.1, phosphorus 5.5. Mild elevation of bilirubin at 3.1. Mild elevation of alkaline phosphatase. Microbiology: Blood cultures positive for gram-positive cocci. ASSESSMENT: 1. End-stage renal disease. The patient will continue Monday, , Monday dialysis. Yesterday's chest CT scan and abdominal CT was suggestive of perhaps very mild volume overload. She will continue to be ultrafiltrated adequately on dialysis. 2. History of chronic obstructive pulmonary disease with exacerbation. Unclear whether or not the patient has an active pneumonia. She does remain on antibiotic therapy. She has one positive blood culture. Final isolation and sensitivities are pending. She will continue on IV steroids, respiratory therapy. 3. History of anemia secondary to chronic kidney disease. Hemoglobin is stable in the 10-11 range. The patient will continue Aranesp and iron on dialysis. 4. 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 History of gastroesophageal reflux disease. 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 No present bleeding. 5. History of hypertension. Blood pressure controlled on present medical therapy. She will continue beta-edith therapy. 6. History of secondary hyperparathyroidism. Last phosphorus level was 5.5. The patient will continue binder therapy and a renal diet. 7. History of a stable left renal cyst, unchanged. 8. History of pulmonary hypertension, stable. 9. Ejection fraction 45-50% with mitral regurgitation/tricuspid regurgitation. 10. Status post right total hip replacement surgery. PLAN: 1. Continue IV steroid therapy. Continue antibiotic therapy. Continue inhalation therapy. 2. Continue three times a week dialysis and emphasized to the patient the need to fluid restrict. 3. Abdominal CT scan reviewed with the patient. 4. Followup final blood cultures. Deon Mathews MD
--- NOTE | 2018-01-01 15:35 | PN ---
DATE: 01/01/2018 SUBJECTIVE: The patient is a 57-year-old, seen and examined, complained of generalized weakness. Still has cough and congestion, has productive cough. PHYSICAL EXAMINATION: VITAL SIGNS: Patient is afebrile, pulse 72, respirations 18, blood pressure 124/72. LUNGS: Bilateral fair airflow. No rhonchi or crackle. HEART: S1, S2 audible. ABDOMEN: Soft, nontender. No rebound. No guarding. NEUROLOGICAL: She is awake and alert, has generalized weakness, had difficulty walking. LABORATORY DATA: Procalcitonin is 12.73. CT scan of the abdomen and pelvis done that shows cardiomegaly with suspected trace effusion, small bilateral effusion and mild bibasilar atelectasis, left greater than the right. ASSESSMENT: 1. Asthmatic bronchitis. 2. Chronic obstructive pulmonary disease. 3. Gram-positive coccemia. Repeat blood cultures are negative. PLAN: We will continue patient on doxycycline. Patient is on Azactam. Continue nebulizer treatment. Awaiting echocardiogram to rule out endocarditis. Shawn Gomez MD
[2018-01-02] MEDS: Levalbuterol 1.25 MG/3 ML Inhal Soln UD IH SCH ×4 (02:00→20:01)
[2018-01-02 08:24] LABS: GRAN # 6.14 (1.4-6.5); GRAN % 89.9 % (50.0-68.0); HEMOGLOBIN 10.8 g/dL (12.0-16.0); LYMPH # 0.5 (1.2-3.4); LYMPH % 7.2 % (22.0-35.0); MEAN CELL VOLUME 80.4 fl (80.0-105.0); MEAN CORPUSCULAR HEMOGLOBIN 24.9 pg (25.0-35.0); MEAN PLATELET VOLUME 9.9 fl (7.0-11.0); MONO # 0.2 (0.1-0.6); MONO % 2.9 % (1.0-6.0); RBC 4.33 10^6/uL (3.5-6.1); RED CELL DISTRIBUTION WIDTH 17.5 % (11.5-14.5); WHITE BLOOD COUNT 6.8 10^3/ul (4.5-11.0)
[2018-01-02 08:34] LABS: ALB/GLOB RATIO 1.1 (1.1-1.8); ALBUMIN 3.1 g/dL (3.0-4.8)
[2018-01-02] MEDS: Ammonium Lactate 12% Cream (140 g) TOP SCH (11:59)
[2018-01-02] MEDS ORDERED: Vancomycin 1gm in NS 250ml 1 GM/250 ML BAG IVPB ONE (12:32)
--- NOTE | 2018-01-02 12:38 | PN ---
DATE: 01/02/2018 SUBJECTIVE: The patient is 57 years old, seen and examined. Seen in Cardiology department, having echocardiogram. She has blood culture, it was positive. Still has cough and congestion. No fever or chills. PHYSICAL EXAMINATION: VITAL SIGNS: She is afebrile, pulse 74, respirations 18, blood pressure 145/82. LUNGS: Bilateral fair airflow. No rhonchi or crackle. HEART: S1 and S2 audible. ABDOMEN: Soft. Nontender. No rebound. No guarding. NEUROLOGICAL: She is awake and alert, able to communicate. LABORATORY EXAM: WBC 6.8, hemoglobin 10.8, hematocrit 34.8, platelet of 97. Chemistry: Sodium 135, potassium 4.7, chloride 94, CO2 of 22, BUN 57, creatinine 4.2, blood sugar of 158, procalcitonin is 12.73. She has 2 blood cultures positive for gram-positive cocci. Identification to follow. ASSESSMENT: 1. Persistent bacteremia. First blood culture was positive for Staphylococcus aureus, but negative. 2. Asthmatic bronchitis. 3. Chronic obstructive pulmonary disease. 4. End-stage renal disease, on hemodialysis. 5. Bacteremia. PLAN: The patient is currently on IV antibiotic. We will follow up echocardiogram. Continue dialysis as per schedule. Currently, she is on Azactam and doxycycline. We will continue Solu-Medrol for now since she is still congested and coughing. We will follow up this patient in the a.m. Shawn Gomez MD
[2018-01-02] MEDS: MethylPREDNISolone 40 mg Vial IV SCH ×2 (12:56→22:02)
[2018-01-02] MEDS: Metoprolol Succinate 25 mg XL Tab PO SCH (12:57)
--- NOTE | 2018-01-02 16:42 | IP.NPCORE ---
COPD Progress Note - COPD Progress Note Spirometry Assessment Completed:: No Plan to assess at outpatient follow up: Yes Symptoms:: Increase in Dyspnea, Cough Initial CXR:: pulmonary edema, chf, fluid overload Date:: 12/29/17 Oxygen Saturation/Pulse Oximetry:: 99 ABG Not Indicated (Symptoms Improved): Yes Nebulizers Q2-4 hrs:: Xopenex Systemic Steroids w/ methylprednisolone Name/Dose/Frequency:: solumedrol 30 q12 Oxygen Delivery Method: Nasal Cannula Oxygen Flow Rate: 2 Smoking cessation counseling all stages copd exacerbation: Yes
--- NOTE | 2018-01-02 16:56 | PN ---
DATE: 01/02/2018 SUBJECTIVE: The patient is currently seen just having completed dialysis. A 2.5 liters of fluid were removed. The patient is seen in the dialysis unit, awaiting transfer back to the floor. Her breathing appears to be better. She continues on IV antibiotic therapy, IV steroids and inhalation therapy. She has no abdominal pain today. No headaches today. MEDICATIONS: Medication list reviewed. The patient is on aztreonam, Claritin, Dilaudid, doxycycline, Lac-Hydrin, Lipitor, Renagel, Sensipar, Solu-Medrol, Toprol and Xopenex. OBJECTIVE: INTAKE/OUTPUT: Intake is 1680, output is 0. VITAL SIGNS: Blood pressure 145/82, temperature 97.9, pulse of 74, respiratory rate of 18. Pulse ox is 99%. HEENT: Shows her to be normocephalic, atraumatic. Conjunctivae remain pale. Sclerae are mildly icteric. NECK: Supple. No neck vein distention. CHEST: Clear to auscultation and percussion with few scattered rhonchi. No rales or wheezing. CARDIOVASCULAR: Shows regular rate and rhythm with MR/TR. EXTREMITIES: Show no lower extremity edema. Left upper extremity AV fistula. LABORATORY DATA: CBC today, white blood cell count 6.8 with a hemoglobin level of 10.8 and a platelet count of 97,000. Chemistries today showed normal electrolytes. BUN 57 with a creatinine of 4.2. Glucose is 158. Calcium was 8 with an albumin of 3.1, corrects to normal. Phosphorus level remains stable at 5.5. Magnesium level is 2. Bilirubin is improved at 2.4. IMAGING STUDIES: CT scan of the abdomen and chest done over the weekend showed bilateral pleural effusions with mild bibasilar atelectasis left greater than right with ground-glass opacities in both lung bases with increased vascularity. Possible mild fluid overload. Positive hepatomegaly. Status post cholecystectomy and diffuse anasarca with small amount of ascites. Microbiology: Blood cultures are positive for gram-positive cocci. Only preliminary reports available. Final isolation and sensitivity are pending. ASSESSMENT: 1. End-stage renal disease. The patient will continue three times a week dialysis Monday, , Monday. The patient was ultrafiltrated 2.5 liters today because of mild congestive heart failure seen on her chest CT scan over the weekend. 2. Chronic obstructive pulmonary disease with exacerbation of chronic obstructive pulmonary disease. Unclear whether her chest CT scan is positive for pneumonia. She does remain on antibiotic therapy. Blood cultures are positive. Final isolation and sensitivity are pending. The patient will continue IV steroids and respiratory therapy, which has led to improvement in her chronic obstructive pulmonary disease symptoms. 3. History of anemia secondary to chronic kidney disease. Hemoglobin is stable 10-11. Aranesp and IV iron per protocol. 4. 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 History of gastroesophageal reflux disease. The patient is felt to have cardiac cirrhosis with esophageal varices. At present, no bleeding. 5. History of hypertension. Blood pressure controlled on present medical therapy. She will continue beta-edith therapy. 6. History of secondary hyperparathyroidism. Phosphorus level remains stable at 5.5. Calcium corrects to normal. The patient will continue Renagel and a renal diet. 7. Stable left renal cyst, unchanged. 8. History of pulmonary hypertension, stable. 9. History of mitral regurgitation, tricuspid regurgitation with ejection fraction of 45%-50%. 10. Status post right total hip replacement surgery. PLAN: 1. Continue steroids via IV. Continue inhalation therapy. Continue antibiotic therapy. 2. Obtain final isolation and sensitivity for positive blood culture. 3. Continue to press upon patient the need to restrict p.o. fluid intake. We will continue to ultrafiltrate the appropriate amount of volume off with each dialysis to render her euvolemic. 4. Appreciate ID followup. Deon Mathews MD [facility]
--- NOTE | 2018-01-02 23:14 | CARD ---
APPROVED REPORT EXAM: Two-dimensional and M-mode echocardiogram with Doppler and color Doppler. INDICATION 2D DIMENSIONS IVSd1.3 (0.7-1.1cm)LVDd6.1 (3.9-5.9cm) PWd1.3 (0.7-1.1cm)LVDs5.4 (2.5-4.0cm) FS (%) 12.7 %LVEF (%)26.8 (>50%) M-Mode DIMENSIONS Left Atrium (MM)5.60 (2.5-4.0cm)Aortic Root3.00 (2.2-3.7cm) Aortic Cusp Exc.2.00 (1.5-2.0cm) Aortic Valve AoV Peak Rjrunaoa419.0cm/Laila Peak GR.13mmHgAI P 1/2 [id number] Mitral Valve MV E Obvxffme349.0cm/sMV E Peak Gr.116mmHgMV A Mzqznjby58.2cm/s E/A ratio2.5 TDI Lateral E' Peak V6.37cm/sMedial E' Peak V4.21cm/sE/Lateral E'21.7 E/Medial E'32.8 Tricuspid Valve TR Peak Csglromo550fs/sRAP [id number] Peak Gr.61mmHg [id number] LEFT VENTRICLE The Left Ventricle is mildly dilated. There is mild concentric left ventricular hypertrophy. The systolic function is severely impaired. There is global hypokinesis of the left ventricle. Apical echoes consistent with trabeculae are noted. RIGHT VENTRICLE The right ventricle is mildly dilated. There is normal right ventricular wall thickness. RV Systolic function is mildly to moderately reduced. ATRIA The left atrium is moderately dilated. The right atrium is moderately dilated. AORTIC VALVE The aortic valve is mildly thickened. There is mild aortic regurgitation. MITRAL VALVE Mitral regurgitation is moderate to severe. TRICUSPID VALVE There is severe tricuspid regurgitation. There is severe pulmonary hypertension. PULMONIC VALVE There is mild pulmonic valvular regurgitation. GREAT VESSELS The aortic root is normal in size. The IVC collapses <50% with inspiration. <Conclusion> The Left Ventricle is mildly dilated. There is mild concentric left ventricular hypertrophy. The systolic function is severely impaired. There is global hypokinesis of the left ventricle. The right ventricle is mildly dilated.RV Systolic function is mildly to moderately reduced. There is mild aortic regurgitation. Mitral regurgitation is moderate to severe. There is severe tricuspid regurgitation. There is severe pulmonary hypertension.
[2018-01-03] MEDS: Levalbuterol 1.25 MG/3 ML Inhal Soln UD IH SCH ×4 (01:29→19:14)
--- NOTE | 2018-01-03 02:34 | PN ---
DATE: 01/02/2018 SUBJECTIVE: The patient is in bed. No acute distress. PHYSICAL EXAMINATION: VITAL SIGNS: Temperature is 98, blood pressure is 130/70, respiratory rate of 18, heart rate of 80. HEENT: Unremarkable. NECK: Supple. LUNGS: Have decreased breath sounds. HEART: Normal S1 and S2. ABDOMEN: Soft and nontender. LABORATORY DATA: Reveals a white count of 6.8, hemoglobin . BUN is 57, creatinine is 4.2. Procalcitonin is noted. Review of orders are noted. Review of the blood cultures revealed Gram-positive cocci in chains in 2 bottles and repeat blood cultures are also positive. Urine culture is done. Review of orders reveals the patient to be on intermittent vancomycin and Azactam. ASSESSMENT AND PLAN: A 57-year-old female, seen earlier today with end-stage renal disease, on hemodialysis; chronic obstructive lung disease; gastroesophageal reflux disease; history of Clostridium difficile; history of pancreatitis; congestive heart failure; brain aneurysm, admitted with Gram-positive cocci bacteriemia and healthcare-associated pneumonia. Repeat blood cultures in one bottle was positive; the initial one, 2 bottles were positive. Today is #3 of vancomycin and Azactam. We will repeat blood cultures x2. Awaiting for echo report to rule out endocarditis, and we will follow closely with you. Sandro Walsh MD
[2018-01-03] MEDS: MethylPREDNISolone 40 mg Vial IV SCH ×2 (09:11→21:00)
[2018-01-03] MEDS: Metoprolol Succinate 25 mg XL Tab PO SCH (09:13)
[2018-01-03] MEDS: Ammonium Lactate 12% Cream (140 g) TOP SCH (09:18)
--- NOTE | 2018-01-03 17:21 | PN ---
DATE: 01/03/2018 SUBJECTIVE: The patient is seen lying in bed. She is very lethargic, apathetic, appears very weak. PHYSICAL EXAMINATION GENERAL: Elderly lady lying in bed. VITAL SIGNS: Blood pressure 138/81, heart rate 73, respiratory rate 18, temperature 97.4. HEENT: Normocephalic, atraumatic, positive pallor. NECK: Supple, no JVD. LUNGS: Bilateral equal air entry, bilateral equal expansion. CARDIAC: S1 and S2, regular rate and rhythm, no murmur, no rub. ABDOMEN: Soft, nondistended, positive mild tenderness, bowel sounds present. EXTREMITIES: Chronic stasis changes, wrinkled skin, 1+ edema. INTAKE AND OUTPUT: Not charted. LABORATORY DATA: WBC 6.8, hemoglobin 10.8, hematocrit 35, platelets 97. Sodium 135, potassium 4.7, chloride 94, CO2 of 24, BUN 57, creatinine 4.2, glucose 158, calcium 8, phosphorus 5.5, magnesium 2, procalcitonin 12.7 on the . Blood cultures; Streptococcus viridans on the . Blood culture from the gram-positive cocci in chains. Echocardiogram from yesterday, dilated LV, mild left ventricular hypertrophy, severe cardiomyopathy, decreased ejection fraction, global hypokinesis, mild aortic regurgitation, tkangfkm-se-vqgony mitral regurgitation, severe tricuspid regurgitation, severe pulmonary hypertension. CURRENT MEDICATIONS: Aztreonam, Claritin, Dilaudid, doxycycline, Lipitor, Renagel, cinacalcet, Solu-Medrol, Toprol XL 25, Xopenex, vancomycin given yesterday. ASSESSMENT: 1. Healthcare-associated pneumonia and Streptococcus bacteremia. 2. Severe dilated cardiomyopathy with dilatation of all four chambers. 3. End-stage renal disease. 4. Anemia of chronic disease. 5. Chronic obstructive pulmonary disease. 6. Hypertension. 7. History of pericardial effusion. PLAN: 1. Cardiology evaluation. 2. Continue antibiotics as per ID recommendations. 3. Dialysis again tomorrow. 4. Increase ultrafiltration on dialysis. 5. Prognosis grim. Mansi Rose MD [facility] # [id number]
--- NOTE | 2018-01-03 19:29 | PN ---
DATE: 01/03/2018 SUBJECTIVE: The patient is a 57-year-old, seen and examined, seems very weak and lethargic. Still has cough and congestion. Difficulty walking. Shortness of breath on walking. PHYSICAL EXAMINATION: VITAL SIGNS: She is afebrile, pulse 76, respirations 20, blood pressure 134/78. LUNGS: Bilateral soft crackles, diffuse, scattered. HEART: S1 and S2 audible. ABDOMEN: Soft. Nontender. No rebound. No guarding. NEUROLOGICAL: She is awake, alert, oriented, and communicative. LABORATORY EXAM: Her follow-up blood culture on 12/31 growing gram positive cocci; initial sensitivity, streptococcus viridans. Her echocardiogram is unremarkable. ASSESSMENT: 1. Bacteremia. 2. Chronic obstructive pulmonary disease exacerbation. 3. Severe dilated cardiomyopathy. 4. End-stage renal disease, on hemodialysis. 5. Chronic anemia. 6. Chronic obstructive pulmonary disease. 7. Active smoker. 8. History of hypertension. PLAN: Currently, patient is on IV antibiotic as recommended by ID. She is on Azactam and doxycycline. Get Cardiology evaluation. Continue nebulizer treatment. I will request for TCU evaluation; if accepted, can be transferred to TCU to complete her course of antibiotics and physical therapy. Shawn Gomez MD
--- NOTE | 2018-01-03 22:34 | CP.PCM.PN ---
Subjective - Date & Time of Evaluation Date of Evaluation: 01/03/18 Time of Evaluation: 12:00 - Subjective Subjective: Still feels weak, no fevers, not in distress Objective - Vital Signs/Intake and Output Vital Signs (last 24 hours): Temp Pulse Resp BP Pulse Ox 97.4 F L 73 18 138/81 100 01/03/18 06:00 01/03/18 09:13 01/03/18 06:00 01/03/18 09:13 01/03/18 06:00 Intake and Output: 01/03/18 01/03/18 06:59 18:59 Intake Total 120 Balance 120 - Medications Medications: Current Medications Atorvastatin Calcium (Lipitor) 80 mg PO DIN [facility] Last Admin: 01/02/18 18:09 Dose: 80 mg Cinacalcet (Sensipar) 30 mg PO DAILY [facility] Last Admin: 01/03/18 09:11 Dose: 30 mg Doxycycline Hyclate (Doryx) 100 mg PO Q12 [facility] PRN Reason: Protocol Stop: 01/07/18 23:31 Last Admin: 01/03/18 09:14 Dose: 100 mg Hydromorphone HCl (Dilaudid) 1 mg PO Q4H PRN PRN Reason: Pain, moderate (4-7) Last Admin: 01/03/18 04:30 Dose: 1 mg Aztreonam 500 mg/ Sodium (Chloride) 100 mls @ 100 mls/hr IVPB Q12 [facility] PRN Reason: Protocol Stop: 01/07/18 10:01 Last Admin: 01/03/18 09:11 Dose: 100 mls/hr Lactic Acid (Lac-Hydrin 12% Cream (140 G)) 0 ea TOP DAILY [facility] Last Admin: 01/03/18 09:18 Dose: 1 applic Levalbuterol HCl (Xopenex) 1.25 mg IH 0200,0800,1400,2000 [facility] Last Admin: 01/03/18 08:23 Dose: 1.25 mg Loratadine (Claritin) 10 mg PO DAILY [facility] Last Admin: 01/03/18 09:14 Dose: 10 mg Methylprednisolone (Solu-Medrol) 30 mg IV Q12 [facility] Last Admin: 01/03/18 09:11 Dose: 30 mg Metoprolol Succinate (Toprol Xl) 25 mg PO DAILY [facility] Last Admin: 01/03/18 09:13 Dose: 25 mg Sevelamer HCl (Renagel) 800 mg PO DAILY [facility] Last Admin: 01/03/18 09:14 Dose: 800 mg - Labs Labs: 01/02/18 08:00 01/02/18 08:00 PT 14.8 SECONDS (9.4-12.5) H 12/29/17 20:10 INR 1.29 (0.93-1.08) H 12/29/17 20:10 APTT 28.3 Seconds (25.1-36.5) 12/29/17 20:10 - Constitutional Appears: Non-toxic, Chronically Ill - Head Exam Head Exam: NORMAL INSPECTION - ENT Exam ENT Exam: Mucous Membranes Moist - Neck Exam Neck Exam: absent: Meningismus - Respiratory Exam Respiratory Exam: Decreased Breath Sounds - Cardiovascular Exam Cardiovascular Exam: +S1, +S2 - GI/Abdominal Exam GI & Abdominal Exam: Soft. absent: Tenderness Assessment and Plan - Assessment and Plan (Free Text) Plan: Assessment Strep viridans bacteremia R/O endocarditis on top of HCAP chronic pain syndrome less probable arthritis of the hips and knees history of atypical pneumonia HTN dysipidemia ESRD on HD Peptic ulcer disease chronic pain syndrome small brain aneurysm Plan on Azactam and Doxycycline; will add Daptomycin and follow up susceptibilities; reviewed 2D echo which does not show vegetations but will recommend KADY will order repeat blood cx for tomorrow will monitor clinically
[2018-01-04] MEDS: Levalbuterol 1.25 MG/3 ML Inhal Soln UD IH SCH ×4 (01:16→20:14)
--- NOTE | 2018-01-04 06:21 | CON ---
DATE: 01/03/2018 SERVICE: Cardiology REASON FOR THE CONSULTATION AND FOLLOWUP: Shortness of breath admitted with possible pneumonia, mitral regurgitation and tricuspid regurgitation, end-stage renal disease on dialysis, cardiac evaluation, cardiomyopathy, nonischemic, possibly. 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 Echo was ordered further deterioration of the LV function. The patient denies any chest pain, shortness of breath or any palpitation, but complaining of cough. PAST MEDICAL HISTORY: Significant for cardiac catheterization dated 06/26/2017 normal coronaries, upper limit of normal right heart pressure, history of end-stage renal disease on dialysis, history of pericardial effusion, large, status post pericardial window in the past; history of cholecystectomy. PAST SURGICAL HISTORY: History of cholecystectomy, history of gastrointestinal bleed, admitted with GI bleed, history of pericardial window with a large pericardial effusion, history of AV shunt, history of right hip surgery. SOCIAL HISTORY: Smokes a pack a day. Denies any history of alcohol abuse, denies any history of substance abuse. CURRENT MEDICATIONS: The patient is taking at home Dilaudid, atorvastatin, , metoprolol 25 mg daily and loratadine. PREVIOUS CARDIAC WORKUP: As follows, the patient had a cardiac catheterization 06/26/2017, this is a repeat. This is a second cardiac catheterization that shows normal coronaries, upper limit normal; right heart pressure as follows RA 5/6, right ventricular pressure 34/8; pulmonary pressure 38/10, mean PA 15, pulmonary capillary wedge pressure 10, pulmonary vascular resistance 0.5 Wood unit; cardiac output index as follows; 10.3 liter cardiac output, cardiac index 6.26 liter; hepatic vein wedge pressure 5 mmHg, hepatic wedge is 8 mmHg, hepatic vein 5 mmHg, hepatic vein wedge 8 mmHg. It was done because it was suggested by GI people that the patient has a severe pulmonary hypertension as well as cirrhosis and severe hypertension, which is not the case. At that time, found to be nonischemic cardiomyopathy ejection fraction 40% to 45%, no evidence of pulmonary hypertension, no evidence of portal hypertension at that time, but the patient was on Primacor before and was stopped before the cardiac catheterization. Prior to that cardiac catheterization, the patient was treated with IV Primacor, so significantly decreased pulmonary hypertension and no evidence of pulmonary hypertension by cardiac catheterization because the patient was treated with IV Primacor. Then the patient had repeat echo that shows RV systolic pressure of 79 at the time prior to cath. Repeat echo after being treated with Primacor 06/27/2017, moderate pulmonary hypertension, right ventricular systolic pressure of 60. The conclusion of the study showed that the patient had moderate pulmonary hypertension and right heart catheterization was done because it shows upper limit normal PA pressure, because the patient was treated with IV Primacor. Pre-cath and post-cath echo shows significantly pulmonary hypertension and Primacor was stopped before the echo. REVIEW OF SYSTEMS: As per HPI. PHYSICAL EXAMINATION: VITAL SIGNS: As follows; temperature afebrile, heart rate 76, and blood pressure 134/78. HEENT: PERRLA intact. NECK: Supple. No carotid bruit or thyromegaly. CHEST: Clear to auscultation. HEART: S1 and S2 regular. ABDOMEN: Soft. EXTREMITIES: Clubbing and cyanosis negative. LABORATORY DATA: Blood workup as follows, WBC 6.8, hemoglobin 10.8, hematocrit 34.8, platelet count 97. Chemistry shows sodium 135, potassium 4.7, chloride 94, CO2 of 24, anion gap of 22, BUN 57, creatinine 4.2. IMPRESSION: This 57-year-old female with a past medical history significant for end-stage renal disease on dialysis, admitted with community-acquired pneumonia, echo shows significantly decreased LV function. Prior to that, the patient had a cardiac catheterization in 2016, the second repeat cath was normal coronary function. At that time, echo revealed upper limit of normal right heart pressure, normal wedge pressure and normal hepatic wedge because the patient was treated with IV Primacor. Before the cardiac catheterization, the patient shows significantly pulmonary hypertension, the patient was not on Primacor and after cardiac catheterization, the patient stopped Primacor for two days and a repeat echo was done that showed pulmonary capillary PA pressure was 60 consistent with pulmonary hypertension. Repeat echo was done again yesterday read by Dr. Oliva and that showed significantly decreased his ejection fraction 55 % , [id number] mitral regurgitation, [id number] tricuspid regurgitation, RV systolic pressure 71 which is consistent with a previous study. RECOMMENDATION: We will get MUGA scan to assess LV function. We will start low dose of Monday, Monday, Monday, treatment for the heart failure and if the patient does not improve, we will start Primacor after the MUGA scan. We will follow with you. Thank you, Dr. Gomez, for providing us the opportunity in taking care of the patient, Jacqui Kraus. Po Mccullough MD
[2018-01-04 07:50] LABS: GRAN # 4.25 (1.4-6.5); HEMOGLOBIN 12.1 g/dL (12.0-16.0); LYMPH # 0.4 (1.2-3.4); LYMPH % 8.7 % (22.0-35.0); MEAN CELL VOLUME 81.2 fl (80.0-105.0); MEAN CORPUSCULAR HEMOGLOBIN 25.3 pg (25.0-35.0); MEAN CORPUSCULAR HGB CONC 31.1 g/dl (31.0-37.0); MEAN PLATELET VOLUME 10.6 fl (7.0-11.0); MONO # 0.3 (0.1-0.6); MONO % 5.3 % (1.0-6.0); RBC 4.79 10^6/uL (3.5-6.1); RED CELL DISTRIBUTION WIDTH 17.9 % (11.5-14.5); WHITE BLOOD COUNT 4.9 10^3/ul (4.5-11.0)
[2018-01-04 07:55] LABS: ALB/GLOB RATIO 1.1 (1.1-1.8); CALCIUM 7.7 mg/dL (8.4-10.5)
--- NOTE | 2018-01-04 10:06 | CP.PCM.PN ---
Subjective - Date & Time of Evaluation Date of Evaluation: 01/04/18 Time of Evaluation: 06:50 - Subjective Subjective: Awake, lying in bed ,no distress, Reason for consultation and follow up:Cardiac evaluation for shortness of breath , cardiomyopathy, pulmonary hypertension, Seen and examined by me and Dr. Mccullough Objective - Vital Signs/Intake and Output Vital Signs (last 24 hours): Temp Pulse Resp BP Pulse Ox 97.6 F 73 20 129/75 98 01/04/18 06:00 01/04/18 06:00 01/04/18 06:00 01/04/18 06:00 01/04/18 06:00 Intake and Output: 01/04/18 01/04/18 06:59 18:59 Intake Total 240 Balance 240 - Medications Medications: Current Medications Atorvastatin Calcium (Lipitor) 80 mg PO DIN [facility] Last Admin: 01/03/18 17:44 Dose: 80 mg Carvedilol (Coreg) 3.125 mg PO BID [facility] Cinacalcet (Sensipar) 30 mg PO DAILY [facility] Last Admin: 01/03/18 09:11 Dose: 30 mg Digoxin (Digoxin) 0.125 mg PO [facility] Doxycycline Hyclate (Doryx) 100 mg PO Q12 [facility] PRN Reason: Protocol Stop: 01/07/18 23:31 Last Admin: 01/03/18 21:00 Dose: 100 mg Hydromorphone HCl (Dilaudid) 1 mg PO Q4H PRN PRN Reason: Pain, moderate (4-7) Last Admin: 01/03/18 20:48 Dose: 1 mg Aztreonam 500 mg/ Sodium (Chloride) 100 mls @ 100 mls/hr IVPB Q12 [facility] PRN Reason: Protocol Stop: 01/07/18 10:01 Last Admin: 01/03/18 22:00 Dose: 100 mls/hr Lactic Acid (Lac-Hydrin 12% Cream (140 G)) 0 ea TOP DAILY [facility] Last Admin: 01/03/18 09:18 Dose: 1 applic Levalbuterol HCl (Xopenex) 1.25 mg IH 0200,0800,1400,2000 [facility] Last Admin: 01/04/18 08:33 Dose: Not Given Lisinopril (Zestril) 2.5 mg PO DAILY [facility] Loratadine (Claritin) 10 mg PO DAILY [facility] Last Admin: 01/03/18 09:14 Dose: 10 mg Methylprednisolone (Solu-Medrol) 30 mg IV Q12 [facility] Last Admin: 01/03/18 21:00 Dose: 30 mg Sevelamer HCl (Renagel) 800 mg PO DAILY [facility] Last Admin: 01/03/18 09:14 Dose: 800 mg - Labs Labs: 01/04/18 07:30 01/04/18 07:30 PT 14.8 SECONDS (9.4-12.5) H 12/29/17 20:10 INR 1.29 (0.93-1.08) H 12/29/17 20:10 APTT 28.3 Seconds (25.1-36.5) 12/29/17 20:10 - Constitutional Appears: No Acute Distress - ENT Exam ENT Exam: Mucous Membranes Moist - Respiratory Exam Respiratory Exam: Decreased Breath Sounds, NORMAL BREATHING PATTERN Additional comments: Nasal cannula, slight shortness of breath on exertion - Cardiovascular Exam Cardiovascular Exam: +S1, +S2 Additional comments: AV shunt - GI/Abdominal Exam GI & Abdominal Exam: Normal Bowel Sounds - Extremities Exam Extremities Exam: Normal Capillary Refill Additional comments: 1+ edema - Neurological Exam Neurological Exam: Alert, Awake, Oriented x3 - Psychiatric Exam Psychiatric exam: Normal Affect, Normal Mood - Skin Skin Exam: Intact, Normal Color, Warm Assessment and Plan - Assessment and Plan (Free Text) Assessment: A 57 year old female who came in to the ER due to shortness of breath, possibly pneumonia. History of cardiomyopathy,COPD, asthmatic bronchitis, hypertension, hyperlipidemia, GI bleed, ESRD on hemodialysis (Monday, , Monday). current smoker,cholecystectomy,pericardial window for effusion, AV shunt,right hip surgery, 2017-Cardiac cath-normal coronaries. Admitted in 2017 with similar symptoms and Echo showed pulmonary hypertension and was treated with primacor with improvement, 5 Plan: Feels much better today ECHO done showed LVEF 55% Moderate to severe MR/TR Severe pulmonary hypertension severely impaired systolic function No evidence of endocarditis For Muga Scan today to assess LV function Started on Digoxin 0.125 mg 3x a week (MWF) If no improvement will start Primacor On Coreg 3.125 mg BID,Zestril 2.5 mg daily Pneumonia, on antibiotics (Doxycycline & Aztreonam) ID on consult Continue all other medications Continue current treatment Will follow up Plan and treatment discussed with Dr. Mccullough
[2018-01-04] MEDS: MethylPREDNISolone 40 mg Vial IV SCH ×2 (11:39→21:25)
--- NOTE | 2018-01-04 13:32 | PN ---
DATE: 01/04/2018 SUBJECTIVE: The patient is 57 years old, seen and examined, short of breath. Just came back from dialysis. Still has cough and congestion. PHYSICAL EXAMINATION: VITAL SIGNS: She is afebrile, pulse 73, respirations 20, blood pressure 141/73. LUNGS: Bilateral soft crackle. HEART: S1 and S2 audible. ABDOMEN: Soft. Nontender. No rebound. No guarding. NEUROLOGICAL: The patient is awake, alert, oriented, communicative. LABORATORY EXAM: WBC is 4.9, hemoglobin 12, hematocrit 38, platelet of 94. Chemistry: Sodium 136, potassium 4.9, chloride 95, CO2 of 24, BUN 50, creatinine 4.4, blood sugar of 131. Her blood cultures are positive for Streptococcus viridans. ASSESSMENT: 1. Persistent bacteremia. Rule out endocarditis, although echocardiogram is negative. Infectious Disease is recommending KADY. I spoke to the patient. She is agreeable. Whatever makes her feel better, she will go for that. 2. End-stage renal disease, on hemodialysis. 3. Hypertension. 4. Chronic obstructive pulmonary disease. 5. Pulmonary hypertension. PLAN: We will discuss with Dr. Mccullough if we can schedule for KADY. Continue her on Azactam and she is on doxycycline. We will continue nebulizer treatment and we will taper down her steroids. We will reevaluate the patient. Shawn Gomez MD
--- NOTE | 2018-01-04 16:11 | PN ---
DATE: 01/04/2018 SUBJECTIVE: The patient is seen lying in bed. She appears weak and frail. PHYSICAL EXAMINATION GENERAL: Elderly lady lying in bed. VITAL SIGNS: Blood pressure 141/73, heart rate 69, respiratory rate 20, temperature 97.6. HEENT: Normocephalic, atraumatic, positive pallor. NECK: Supple, no JVD. LUNGS: Bilateral equal air entry, bilateral equal expansion. CARDIAC: S1 and S2, regular rate and rhythm, no murmur, no rub. ABDOMEN: Soft, nondistended, nontender, bowel sounds present. EXTREMITIES: Multiple ulcers on upper extremities, hyperpigmented spots. Lower extremities with chronic stasis changes, wrinkled skin. INTAKE AND OUTPUT: Not charted. LABORATORY DATA: WBC 4.9, hemoglobin 12, hematocrit 38.9, platelets 94. Sodium 136, potassium 4.9, chloride 95, CO2 of 24, BUN 50, creatinine 4.4, glucose 131, calcium 7.7, phosphorus 5.7, magnesium 1.9, total bilirubin 3.7, albumin 3. Blood cultures, Streptococcus viridans in 4 sets. CURRENT MEDICATIONS: Aztreonam 500 every 12 hours, Claritin, Coreg, digoxin, Dilaudid, doxycycline, Lipitor, Renagel, Sensipar, Solu-Medrol, lisinopril 2.5. ASSESSMENT: 1. Streptococcus viridans bacteremia. 2. Dilated cardiomyopathy. 3. Severe mitral regurgitation and severe tricuspid regurgitation. 4. Pulmonary hypertension. 5. End-stage renal disease. 6. Anemia of chronic disease. 7. Thrombocytopenia. 8. History of chronic obstructive pulmonary disease. PLAN: 1. Stable dialysis today. 2. Cardiology evaluation appreciated. 3. Continue antibiotics as per ID recommendations. 4. Await Primacor initiation. Mansi Rose MD
--- NOTE | 2018-01-04 16:16 | CP.PCM.PN ---
Subjective - Date & Time of Evaluation Date of Evaluation: 01/04/18 Time of Evaluation: 11:20 - Subjective Subjective: Less short of breath, no fevers, no chest pain, no nausea. Objective - Vital Signs/Intake and Output Vital Signs (last 24 hours): Temp Pulse Resp BP Pulse Ox 97.6 F 73 20 129/75 98 01/04/18 06:00 01/04/18 06:00 01/04/18 06:00 01/04/18 06:00 01/04/18 06:00 Intake and Output: 01/04/18 01/04/18 06:59 18:59 Intake Total 240 Balance 240 - Medications Medications: Current Medications Atorvastatin Calcium (Lipitor) 80 mg PO DIN [facility] Last Admin: 01/03/18 17:44 Dose: 80 mg Carvedilol (Coreg) 3.125 mg PO BID [facility] Cinacalcet (Sensipar) 30 mg PO DAILY [facility] Last Admin: 01/03/18 09:11 Dose: 30 mg Digoxin (Digoxin) 0.125 mg PO MWF [facility] Doxycycline Hyclate (Doryx) 100 mg PO Q12 [facility] PRN Reason: Protocol Stop: 01/07/18 23:31 Last Admin: 01/03/18 21:00 Dose: 100 mg Hydromorphone HCl (Dilaudid) 1 mg PO Q4H PRN PRN Reason: Pain, moderate (4-7) Last Admin: 01/03/18 20:48 Dose: 1 mg Aztreonam 500 mg/ Sodium (Chloride) 100 mls @ 100 mls/hr IVPB Q12 [facility] PRN Reason: Protocol Stop: 01/07/18 10:01 Last Admin: 01/03/18 22:00 Dose: 100 mls/hr Lactic Acid (Lac-Hydrin 12% Cream (140 G)) 0 ea TOP DAILY [facility] Last Admin: 01/03/18 09:18 Dose: 1 applic Levalbuterol HCl (Xopenex) 1.25 mg IH 0200,0800,1400,2000 [facility] Last Admin: 01/04/18 08:33 Dose: Not Given Lisinopril (Zestril) 2.5 mg PO DAILY [facility] Loratadine (Claritin) 10 mg PO DAILY [facility] Last Admin: 01/03/18 09:14 Dose: 10 mg Methylprednisolone (Solu-Medrol) 30 mg IV Q12 [facility] Last Admin: 01/03/18 21:00 Dose: 30 mg Sevelamer HCl (Renagel) 800 mg PO DAILY [facility] Last Admin: 01/03/18 09:14 Dose: 800 mg - Labs Labs: 01/04/18 07:30 01/04/18 07:30 PT 14.8 SECONDS (9.4-12.5) H 12/29/17 20:10 INR 1.29 (0.93-1.08) H 12/29/17 20:10 APTT 28.3 Seconds (25.1-36.5) 12/29/17 20:10 - Constitutional Appears: Chronically Ill - Head Exam Head Exam: NORMAL INSPECTION - ENT Exam ENT Exam: Mucous Membranes Moist - Neck Exam Neck Exam: absent: Meningismus - Respiratory Exam Respiratory Exam: Decreased Breath Sounds - Cardiovascular Exam Cardiovascular Exam: +S1, +S2 - GI/Abdominal Exam GI & Abdominal Exam: Soft. absent: Tenderness Assessment and Plan - Assessment and Plan (Free Text) Plan: Assessment Strep viridans bacteremia R/O endocarditis on top of HCAP chronic pain syndrome less probable arthritis of the hips and knees history of atypical pneumonia HTN dysipidemia ESRD on HD Peptic ulcer disease chronic pain syndrome small brain aneurysm Plan on Azactam and Doxycycline day 6 to complete 7 days of therapy; continue Daptomycin and follow up susceptibilities and repeat blood cultures were done today; reviewed 2D echo which does not show vegetations but will recommend KADY - discussed this with Dr. Gomez will continue to monitor clinically
[2018-01-04] MEDS: Ammonium Lactate 12% Cream (140 g) TOP SCH (16:41)
--- NOTE | 2018-01-04 23:34 | CARD ---
APPROVED REPORT INDICATION NON ISCHEMIC CMP,ASSESS LV AND RV EF PROCEDURE The above named patient recieved 21.2 millicuries of Tc99m tagged red blood cells intravenously. After achieving equilibrium, gated imaging of 16/frame/cycle was performed utillizing Gamma camera interfaced with a digital computer and gated device. Gated imaging was then performed in the left anterior oblique, anterior, and the left lateral projections. Findings Left Ventricle: The quality of the study is good. Both ventricles are enlarged. Wall motion study shows moderate diffuse hypokinesis of the left ventricle. RV wall motion is normal. The right atrium is dynamic. The remainder of the study is unremarkable. Impressions Moderate to severe LV dysfunction with diffuse hypokinesis. LVEF = 31%. Normal RV wall motion.
[2018-01-05] MEDS: Levalbuterol 1.25 MG/3 ML Inhal Soln UD IH SCH ×4 (01:18→20:20)
--- NOTE | 2018-01-05 06:41 | CP.PCM.PN ---
Subjective - Date & Time of Evaluation Date of Evaluation: 01/05/18 Time of Evaluation: 06:05 - Subjective Subjective: Slleping easily awaken, lying in bed ,no distress, Reason for consultation and follow up:Cardiac evaluation for shortness of breath , cardiomyopathy, pulmonary hypertension, Seen and examined by me and Dr. Mccullough Objective - Vital Signs/Intake and Output Vital Signs (last 24 hours): Temp Pulse Resp BP Pulse Ox 98.9 F 66 18 136/70 97 01/04/18 15:20 01/04/18 17:22 01/04/18 15:20 01/04/18 17:22 01/04/18 15:20 Intake and Output: 01/04/18 01/05/18 18:59 06:59 Intake Total 120 540 Balance 120 540 - Medications Medications: Current Medications Atorvastatin Calcium (Lipitor) 80 mg PO DIN [facility] Last Admin: 01/04/18 16:48 Dose: 80 mg Carvedilol (Coreg) 3.125 mg PO BID [facility] Last Admin: 01/04/18 17:22 Dose: 3.125 mg Cinacalcet (Sensipar) 30 mg PO DAILY [facility] Last Admin: 01/04/18 16:40 Dose: 30 mg Digoxin (Digoxin) 0.125 mg PO [facility] [place] Doxycycline Hyclate (Doryx) 100 mg PO Q12 [facility] PRN Reason: Protocol Stop: 01/07/18 23:31 Last Admin: 01/04/18 21:22 Dose: 100 mg Hydromorphone HCl (Dilaudid) 1 mg PO Q4H PRN PRN Reason: Pain, moderate (4-7) Last Admin: 01/04/18 21:52 Dose: 1 mg Aztreonam 500 mg/ Sodium (Chloride) 100 mls @ 100 mls/hr IVPB Q12 [facility] PRN Reason: Protocol Stop: 01/07/18 10:01 Last Admin: 01/04/18 21:21 Dose: 100 mls/hr Lactic Acid (Lac-Hydrin 12% Cream (140 G)) 0 ea TOP DAILY [facility] Last Admin: 01/04/18 16:41 Dose: 1 applic Levalbuterol HCl (Xopenex) 1.25 mg IH 0200,0800,1400,2000 [facility] Last Admin: 01/05/18 01:18 Dose: 1.25 mg Lisinopril (Zestril) 2.5 mg PO DAILY [facility] Last Admin: 01/04/18 11:36 Dose: 2.5 mg Loratadine (Claritin) 10 mg PO DAILY [facility] Last Admin: 01/04/18 16:41 Dose: 10 mg Methylprednisolone (Solu-Medrol) 20 mg IV Q12 [facility] Last Admin: 01/04/18 21:25 Dose: 20 mg Sevelamer HCl (Renagel) 800 mg PO DAILY [facility] Last Admin: 01/04/18 16:40 Dose: 800 mg - Labs Labs: 01/04/18 07:30 01/04/18 07:30 PT 14.8 SECONDS (9.4-12.5) H 12/29/17 20:10 INR 1.29 (0.93-1.08) H 12/29/17 20:10 APTT 28.3 Seconds (25.1-36.5) 12/29/17 20:10 - Constitutional Appears: No Acute Distress - Head Exam Head Exam: NORMOCEPHALIC - Eye Exam Eye Exam: Normal appearance - ENT Exam ENT Exam: Mucous Membranes Moist - Respiratory Exam Respiratory Exam: Decreased Breath Sounds Additional comments: Nasal cannula SOB on exertion - Cardiovascular Exam Cardiovascular Exam: +S1, +S2 Additional comments: AV shunt - GI/Abdominal Exam GI & Abdominal Exam: Soft, Normal Bowel Sounds - Extremities Exam Additional comments: 1+ edema - Neurological Exam Neurological Exam: Alert, Awake, Oriented x3 - Psychiatric Exam Psychiatric exam: Normal Affect, Normal Mood - Skin Skin Exam: Intact, Normal Color, Warm Assessment and Plan - Assessment and Plan (Free Text) Assessment: A 57 year old female who came in to the ER due to shortness of breath, possibly pneumonia. History of cardiomyopathy,COPD, asthmatic bronchitis, hypertension, hyperlipidemia, GI bleed, ESRD on hemodialysis (Monday, , Monday). current smoker,cholecystectomy,pericardial window for effusion, AV shunt,right hip surgery, 2017-Cardiac cath-normal coronaries. Admitted in 2017 with similar symptoms and Echo showed pulmonary hypertension and was treated with primacor with improvement, ECHO done showed LVEF 55% Moderate to severe MR/TR Severe pulmonary hypertension severely impaired systolic function No evidence of endocarditis Plan: MUGA scan done yesterday-LVEF 31% Moderate to severe LV dysfunction with diffuse hypokinesis Normal RV function For KADY to rule out endocarditis Started on Digoxin 0.125 mg 3x a week (MWF) If no improvement will start Primacor Controlled heart rate and blood pressure On Coreg 3.125 mg BID,Zestril 2.5 mg daily Pneumonia, on antibiotics (Doxycycline & Aztreonam) ID on consult Continue all other medications Continue current treatment Will follow up Plan and treatment discussed with Dr. Mccullough
[2018-01-05] MEDS: MethylPREDNISolone 40 mg Vial IV SCH (09:22)
[2018-01-05] MEDS: Digoxin 125 mcg (0.125 mg) Tab PO SCH (09:25)
[2018-01-05] MEDS ORDERED: DAPTOmycin 500 mg Inj (Cubicin) IV SCH (10:00)
[2018-01-05] MEDS: Ammonium Lactate 12% Cream (140 g) TOP SCH (10:30)
[2018-01-05] MEDS: Milrinone 20mg/100ml D5W 100 ML IV PRN (11:17)
--- NOTE | 2018-01-05 12:03 | CP.PCM.PN ---
Subjective - Date & Time of Evaluation Date of Evaluation: 01/05/18 Time of Evaluation: 09:40 - Subjective Subjective: Still with shortness of breath at rest, no fevers. Objective - Vital Signs/Intake and Output Vital Signs (last 24 hours): Temp Pulse Resp BP Pulse Ox 97.7 F 61 18 130/71 100 01/05/18 06:00 01/05/18 09:22 01/05/18 06:00 01/05/18 09:22 01/05/18 06:00 Intake and Output: 01/05/18 01/05/18 06:59 18:59 Intake Total 540 Balance 540 - Medications Medications: Current Medications Atorvastatin Calcium (Lipitor) 80 mg PO DIN [facility] Last Admin: 01/04/18 16:48 Dose: 80 mg Carvedilol (Coreg) 3.125 mg PO BID [facility] Last Admin: 01/05/18 09:22 Dose: 3.125 mg Cinacalcet (Sensipar) 30 mg PO DAILY [facility] Last Admin: 01/05/18 09:21 Dose: 30 mg Digoxin (Digoxin) 0.125 mg PO MWF [facility] Last Admin: 01/05/18 09:25 Dose: 0.125 mg Doxycycline Hyclate (Doryx) 100 mg PO Q12 [facility] PRN Reason: Protocol Stop: 01/07/18 23:31 Last Admin: 01/05/18 09:23 Dose: 100 mg Hydromorphone HCl (Dilaudid) 1 mg PO Q4H PRN PRN Reason: Pain, moderate (4-7) Last Admin: 01/04/18 21:52 Dose: 1 mg Aztreonam 500 mg/ Sodium (Chloride) 100 mls @ 100 mls/hr IVPB Q12 [facility] PRN Reason: Protocol Stop: 01/07/18 10:01 Last Admin: 01/05/18 09:30 Dose: 100 mls/hr Milrinone Lactate/Dextrose (Primacor 20mg/100ml D5w) 100 mls @ 3.718 mls/hr IV .Q24H PRN; Protocol; 0.2 MCG/KG/MIN PRN Reason: TITRATE PER MD ORDER Stop: 01/08/18 07:00 Lactic Acid (Lac-Hydrin 12% Cream (140 G)) 0 ea TOP DAILY [facility] Last Admin: 01/04/18 16:41 Dose: 1 applic Levalbuterol HCl (Xopenex) 1.25 mg 0200,0800,1400,2000 [facility] Last Admin: 01/05/18 07:27 Dose: 1.25 mg Lisinopril (Zestril) 2.5 mg PO DAILY [facility] Last Admin: 01/05/18 09:19 Dose: 2.5 mg Loratadine (Claritin) 10 mg PO DAILY [facility] Last Admin: 01/05/18 09:23 Dose: 10 mg Methylprednisolone (Solu-Medrol) 20 mg IV Q12 [facility] Last Admin: 01/05/18 09:22 Dose: 20 mg Sevelamer HCl (Renagel) 800 mg PO DAILY [facility] Last Admin: 01/05/18 09:22 Dose: 800 mg - Labs Labs: 01/04/18 07:30 01/04/18 07:30 PT 14.8 SECONDS (9.4-12.5) H 12/29/17 20:10 INR 1.29 (0.93-1.08) H 12/29/17 20:10 APTT 28.3 Seconds (25.1-36.5) 12/29/17 20:10 - Constitutional Appears: Chronically Ill - Head Exam Head Exam: NORMAL INSPECTION - Neck Exam Neck Exam: absent: Meningismus - Respiratory Exam Respiratory Exam: Decreased Breath Sounds - Cardiovascular Exam Cardiovascular Exam: +S1, +S2 - GI/Abdominal Exam GI & Abdominal Exam: Soft. absent: Tenderness Assessment and Plan - Assessment and Plan (Free Text) Plan: Assessment Strep viridans bacteremia R/O endocarditis on top of HCAP CHF now on Primacor drip chronic pain syndrome probable arthritis of the hips and knees history of atypical pneumonia HTN dysipidemia ESRD on HD Peptic ulcer disease chronic pain syndrome small brain aneurysm Plan continue Azactam and Doxycycline day 7 to complete 7 days of therapy; continue Daptomycin; repeat blood cultures from yesterday are negative so far; reviewed 2D echo which does not show vegetations but recommend KADY - discussed this with Dr. Gomez will continue to monitor clinically
--- NOTE | 2018-01-05 15:18 | PN ---
DATE: 01/05/2018 TYPE OF DICTATION: Addendum to the initial progress note dictated by our nurse practitioner. REASON FOR ADDENDUM: The patient was reevaluated. MUGA scan reviewed. The patient has still mild fluid overload, though is in dialysis. Ejection fraction came out of LV 31%, RV normal. So, we will transfer the patient to telemetry, start Primacor for 40 to 72 hours and we will do the KADY on Monday. Discussed with the patient. Discussed with the nursing staff. We will keep n.p.o. after Monday midnight for KADY and till continue Primacor and discontinue Primacor on Monday. Thank you, Dr. Gomez, for providing us the opportunity in taking care of Jacqui Kraus. Po Mccullough MD
--- NOTE | 2018-01-05 16:11 | PN ---
DATE: 01/05/2018 SUBJECTIVE: The patient is 57-year-old, seen and examined, gets short of breath on minimal exertion, still has cough and congestion, evaluated by Cardiology because on her MUGA scan, it was found to have cardiomyopathy, transferred to telemetry to have Primacor drip started. PHYSICAL EXAMINATION: GENERAL: Today, she is awake, alert, oriented, communicative. VITAL SIGNS: She is afebrile, pulse is 66, respirations 18, blood pressure 127/70. LUNGS: Bilateral soft crackles, diffuse, more pronounced posteriorly. HEART: S1 and S2 audible. ABDOMEN: Soft, nontender, no rebound, no guarding. NEUROLOGICAL: The patient is awake, alert, oriented, able to communicate. LABORATORY DATA: Total creatine kinase 99, procalcitonin 12.73. She has 4 blood cultures positive, the one on 01/04/2018 is negative and she has been growing Streptococcus viridans, although her transthoracic echocardiogram is negative. She is scheduled for KADY on Monday. ASSESSMENT: 1. Persistent bacteremia, rule out endocarditis, plan for transesophageal echocardiography on Monday. 2. End-stage renal disease, on hemodialysis. 3. Hypertension. 4. Chronic obstructive pulmonary disease. 5. Active smoker up until admission this time. 6. Chronic anemia. 7. History of gastrointestinal bleed. PLAN: For KADY on Monday and starting Primacor and continue with nebulizer treatment. We will taper down steroids. Continue on Azactam, Coreg. She has been started on daptomycin and doxycycline. I will discontinue IV steroid and put her on small dose of prednisone. We will reevaluate the patient in a.m. and discuss with the patient and explain to her the situation. She states "do whatever makes me feel better." Shawn Gomez MD
--- NOTE | 2018-01-05 21:54 | PN ---
DATE: 01/05/2018 SUBJECTIVE: The patient is seen lying in bed. She appears very frail and weak. PHYSICAL EXAMINATION GENERAL: Middle-aged lady, lying in bed. VITAL SIGNS: Blood pressure 143/66, heart rate 64, respiratory rate 18, temperature 98, T-max is 98. HEENT: Normocephalic, atraumatic, positive pallor. NECK: Supple, no JVD. LUNGS: Bilateral equal air entry, bilateral equal rhonchi, no rales appreciated. CARDIAC: S1 and S2, regular rate and rhythm, positive murmur. ABDOMEN: Soft, nontender, bowel sounds present. EXTREMITIES: Chronic stasis changes, wrinkled skin. LABORATORY DATA: No new labs. Blood cultures from 01/04/2018, no growth so far. MUGA scan, moderate to severe LV dysfunction with diffuse hypokinesis, EF of 31%, normal RV wall motion. MEDICATIONS: Aztreonam 500 every 12, Claritin, Coreg 3.125 b.i.d., daptomycin every other day, digoxin, Dilaudid, doxycycline, Lipitor, prednisone, Primacor started today, Renagel, Cinacalcet. ASSESSMENT: 1. Streptococcus viridans bacteremia. 2. Severe cardiomyopathy, mitral regurgitation, tricuspid regurgitation. 3. Thrombocytopenia. 4. End-stage renal disease. 5. Anemia of chronic kidney disease. 6. Chronic obstructive pulmonary disease. PLAN: 1. Continue antibiotics as per ID recommendations. 2. Agree with Primacor. 3. Dialysis Monday, and Monday. 3. Aggressive ultrafiltration. Mansi Rose MD
[2018-01-06] MEDS: Levalbuterol 1.25 MG/3 ML Inhal Soln UD IH SCH ×4 (02:50→19:43)
[2018-01-06] MEDS: Milrinone 20mg/100ml D5W 100 ML IV PRN (05:55)
[2018-01-06 08:51] LABS: GRAN # 9.96 (1.4-6.5); GRAN % 90.1 % (50.0-68.0); HEMOGLOBIN 9.5 g/dL (12.0-16.0); LYMPH # 0.8 (1.2-3.4); MEAN CORPUSCULAR HEMOGLOBIN 24.8 pg (25.0-35.0); MEAN CORPUSCULAR HGB CONC 30.3 g/dl (31.0-37.0); MEAN PLATELET VOLUME 10.1 fl (7.0-11.0); MONO # 0.3 (0.1-0.6); MONO % 2.9 % (1.0-6.0); PLATELET COUNT 53 10^3/uL (120.0-450.0); RBC 3.83 10^6/uL (3.5-6.1); WHITE BLOOD COUNT 11.1 10^3/ul (4.5-11.0)
[2018-01-06 08:58] LABS: ALB/GLOB RATIO 1.1 (1.1-1.8); ALBUMIN 2.6 g/dL (3.0-4.8); CALCIUM 7.3 mg/dL (8.4-10.5)
[2018-01-06 09:57] LABS: BAND 1 % (0-2); LYMPHOCYTE 4 % (22.0-35.0); MONOCYTE 3 % (1.0-6.0); NEUTROPHIL 92 % (50.0-70.0)
[2018-01-06 09:58] LABS: ANISOCYTOSIS SLIGHT; HYPOCHROMIA SLIGHT; MICROCYTOSIS SLIGHT; PLATELET ESTIMATE LOW (NORMAL)
--- NOTE | 2018-01-06 11:41 | PN ---
DATE: 01/06/2018 SUBJECTIVE: The patient is seen earlier today in 270, bed 2. No fevers and chills. PHYSICAL EXAMINATION: GENERAL: Chronically ill and weak. VITAL SIGNS: Temperature of 98, blood pressure is 140/70, respiratory rate of 18, heart rate of 16. HEENT: Examination of HEENT is unremarkable. NECK: Supple. LUNGS: Have decreased breath sounds. HEART: Normal S1, S2. ABDOMEN: Soft, nontender. LABORATORY DATA: Laboratory examination reveals the patient has a white count of 4.9, hemoglobin of 12, platelets of 94. Coagulation is noted. Chemistries reveals a BUN of 50, creatinine of 4.4. Procalcitonin is 12.73. ASSESSMENT AND PLAN: A 57-year-old female, seen earlier today with Streptococcus viridans bacteremia, must rule out endocarditis on top of healthcare-associated pneumonia in a patient with congestive heart failure, on Primacor drip, chronic pain syndrome, probable arthritis in hips and knees, history of atypical pneumonia, hypertension, dyslipidemia, end-stage renal disease, on hemodialysis, peptic ulcer disease, chronic pain syndrome, brain aneurysm, on Azactam and doxycycline, has completed 7 days, daptomycin with a negative echocardiogram and it is transthoracic. Review of orders reveals the patient is still on the aztreonam, daptomycin and doxycycline, prednisone. Repeat cultures are now negative. Initially multiple cultures are positive for 12/29/2017, . 01/04/2018 is the first part of cultures. Today is day #3 of negative cultures and therefore of treatment. We will discontinue the doxycycline, Azactam, today is day #8. We will follow with you. With multiple persistent blood cultures positive, will need 4-6 weeks of antibiotics. Sandro Walsh MD
[2018-01-06] MEDS: Ammonium Lactate 12% Cream (140 g) TOP SCH (12:10)
--- NOTE | 2018-01-06 17:07 | PN ---
DATE: 01/06/2018 SUBJECTIVE: The patient is 57 years old, seen and examined, has generalized weakness, does not eat well, complained of shortness of breath. PHYSICAL EXAMINATION: VITAL SIGNS: Patient is afebrile, pulse 77, respirations 18, blood pressure 149/72. LUNGS: Diffusely decreased breath sound. HEART\: S1 and S2 audible. ABDOMEN: Soft, nontender, no rebound, no guarding. NEUROLOGICAL: Patient is awake and alert, able to communicate, but is lethargic. LABORATORY DATA: WBC 11.1, hemoglobin 9.5, hematocrit 31.4, platelets 53. Chemistry: Sodium 139, potassium is 3.8, chloride 96, CO2 of 30, BUN 49, creatinine 4.4, blood sugar of 157. ASSESSMENT AND PLAN: 1. Bacteremia with Streptococcus viridans. Transthoracic echo is negative. Patient is planned for transesophageal echocardiography. 2. Dilated cardiomyopathy. Patient has ejection fraction of 31% on MUGA scan. 3. End-stage renal disease, on hemodialysis. 4. 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 5. Severe cardiomyopathy. 6. Tricuspid regurgitation. 7. Mitral regurgitation. 8. Thrombocytopenia. 9. Chronic anemia. 10. History of chronic obstructive pulmonary disease. PLAN: Patient currently on Primacor. She is scheduled for KADY on Monday. She has been started on Nepro daily. We will follow up her electrolytes and CBC intermittently. Shawn Gomez MD
[2018-01-07] MEDS: Levalbuterol 1.25 MG/3 ML Inhal Soln UD IH SCH ×4 (01:31→19:31)
[2018-01-07] MEDS: Milrinone 20mg/100ml D5W 100 ML IV PRN (09:02)
[2018-01-07] MEDS: Ammonium Lactate 12% Cream (140 g) TOP SCH (09:04)
--- NOTE | 2018-01-07 11:06 | PN ---
DATE: 01/07/2018 SUBJECTIVE: The patient is in bed and seen earlier today. OBJECTIVE: VITAL SIGNS: On exam, temperature is 97, blood pressure is 150/70, respiratory rate 20, heart rate of 96. HEENT: Examination is unremarkable. NECK: Supple. LUNGS: Have decreased breath sounds. HEART: Normal S1, S2. ABDOMEN: Examination is soft, nontender. DATA: Laboratory examination reveals a white count of 11,000, hemoglobin of 9, platelets of 53. Chemistries reveal a BUN of 49, creatinine of 4.4, alkaline phosphatase is elevated at 477. Blood cultures are positive for Streptococcus viridans. The repeat cultures are negative from 01/04/2018. Review of orders reveals the patient is on prednisone and on daptomycin. ASSESSMENT AND PLAN: This is a 57-year-old female who was seen earlier with Strep viridans bacteremia, must rule out endocarditis and infected catheter on top of healthcare-associated pneumonia in a patient with congestive heart failure, on Primacor and history of hypertension; dyslipidemia; end-stage renal disease, on hemodialysis; peptic ulcer disease and chronic pain syndrome and currently on daptomycin, today is day #4 of antibiotics; should have a KADY and we would recommend completing at least 28 to 42 days of antibiotics, today is day #4 of 28, currently on daptomycin, may be able to switch to IV vancomycin during dialysis because of the strep viridans, pending KADY results. Sandro Walsh MD
--- NOTE | 2018-01-07 12:46 | PN ---
DATE: 01/07/2018 SUBJECTIVE: The patient is seen lying in bed. She is very weak. Fatigued. PHYSICAL EXAMINATION: GENERAL: Middle-aged lady, lying in bed. Vital signs: Blood pressure 151/74, heart rate 82, respiratory rate 20, temperature 97.7, T-max 99.4. HEENT: Normocephalic, atraumatic, positive pallor. NECK: Supple. No JVD. LUNGS: Bilateral equal air entry, bilateral equal expansion, poor air entry. CARDIAC: S1 and S2, regular rate and rhythm, positive murmur, no rub. ABDOMEN: Soft, nondistended, nontender. Bowel sounds present. EXTREMITIES: Chronic stasis changes, wrinkled skin of the lower extremities, multiple hyperpigmented patches, multiple shallow ulcers on the face, on the upper extremities. INTAKE AND OUTPUT: Not charted. LABORATORY DATA: WBC count 11, hemoglobin 9.5, hematocrit 31, platelets 53 yesterday. Sodium 139, potassium 3.8, chloride 96, CO2 of 30, BUN 49, creatinine 4.4, glucose 157, calcium 7.3. Phosphorus 4.1, magnesium 1.8, albumin 2.6, corrected calcium is 8.3. Blood cultures no growth. CURRENT MEDICATIONS: Coreg 3.125 b.i.d., daptomycin 370 every other day, digoxin, Dilaudid, Lipitor, prednisone, Primacor, Reglan, cinacalcet, Xopenex, Zestril, Zofran. ASSESSMENT: 1. Streptococcus viridans bacteremia/sepsis. 2. Healthcare-associated pneumonia. 3. Severe dilated cardiomyopathy. 4. ? Endocarditis. 5. Anemia. 6. Thrombocytopenia. 7. End-stage renal disease. PLAN: 1. ID note read and appreciated, agree with plan for KADY. 2. Continue antibiotics. 3. Continue Primacor. 4. Dialysis again tomorrow, i.e. extra treatment. Mansi Rose MD
--- NOTE | 2018-01-07 13:33 | PN ---
DATE: 01/07/2018 SUBJECTIVE: The patient has no complaints of any chest pain. No shortness of breath. No headaches. PHYSICAL EXAMINATION: VITAL SIGNS: Temperature is 97.7, pulse of 82, blood pressure is 151/74, respirations 19. GENERAL: The patient is lying in bed, flat, comfortable. HEENT: No oral lesion. Anicteric sclerae. Moist mucosa. NECK: No JVD, adenopathy, or thyromegaly. CARDIOVASCULAR: III/ systolic ejection murmur. No rubs. S1 and S2 are regular. LUNGS: Clear to auscultation bilaterally. No wheeze, rales, or rhonchi. ABDOMEN: Bowel sounds are positive, soft, nontender and nondistended. EXTREMITIES: No cyanosis, clubbing or edema. LABORATORY DATA: White count of 11.1, hemoglobin 9.5. Creatinine is 4.4. ASSESSMENT: 1. Streptococcus viridans bacteremia, day #4 out of 28. 2. End-stage renal disease, on hemodialysis. 3. Dilated cardiomyopathy with an ejection fraction of 31%. 4. Tricuspid regurgitation. 5. Mitral regurgitation. 6. Thrombocytopenia. 7. Chronic anemia. PLAN: The patient is on Claritin, this will be continued. She is on daptomycin for antibiotics. She is on digoxin. The patient is going to continue with prednisone daily. She is on Reglan. She is going to continue with Renagel for her secondary hyperparathyroidism. The patient will most likely need a KADY. Dr. Mccullough is following. The patient is on Lipitor for dyslipidemia. She is on Zestril for hypertension. Her next dialysis is on Monday. Juan Francisco Guerra MD
[2018-01-08] MEDS: Levalbuterol 1.25 MG/3 ML Inhal Soln UD IH SCH ×4 (01:25→19:29)
--- NOTE | 2018-01-08 06:50 | CON ---
DATE: 01/07/2018 REASON FOR CONSULTATION: Nausea, vomiting. HISTORY OF PRESENT ILLNESS: This 57-year-old patient with a history of end-stage renal disease, on hemodialysis; initially admitted with cough and shortness of breath. The patient was found to have pneumonia and also, blood cultures showed Strep viridans bacteremia, rule out endocarditis. The patient has been on antibiotics, daptomycin. The patient was also on steroids. The patient's diet has been changed to clear liquid diet yesterday, able to tolerate it now, has developed loose bowel movements, been started on p.o. Flagyl. Her other past medical history is significant for severe GI bleeding. The patient had a clipping of the Dieulafoy lesion versus portal hypertension with eroded veins. The patient did have multiple transfusions now. The patient did have a right heart catheterization and also had left heart catheterization done before; history of tricuspid regurgitation; pulmonary hypertension and elevated chromogranin A levels. The patient was [facility], did not have the followup yet. Other past medical history is significant as above. PAST SURGICAL HISTORY: Significant for status post cholecystectomy, status post pericardial window, AV shunt placement, right hip surgery. SOCIAL HISTORY: Still smokes a pack per day. Denies any alcohol use. REVIEW OF SYSTEMS: Other systems reviewed, positive as above. History of loose bowel movements now. PHYSICAL EXAMINATION: GENERAL: Patient is lying on the bed, not in acute distress. VITAL SIGNS: Temperature is 98.2, blood pressure is 145/92, pulse 70, respirations 20, O2 saturation 98. HEENT: Atraumatic, anicteric. NECK: Supple. HEART: S1 and S2 heard. LUNGS: Bilateral air entry present, decreased at the bases. ABDOMEN: Soft. No tenderness. NEUROLOGICAL: Alert and oriented. DATA: Hemoglobin is 9.5; hematocrit 31.4; WBC 11.1; platelets 53, it has come down. Chemistry shows BUN is 49, creatinine 4.4, total bilirubin 2.4, alkaline phosphatase 477. The patient did have CAT scan of the abdomen and pelvis done on 12/31 which was reviewed, which was done with no IV or p.o. contrast, it showed hepatomegaly, bilateral effusion, cardiomegaly, diffuse anasarca. IMPRESSION: 1. An episode of nausea and vomiting could be secondary to the medications, possibility of drug induced could be considered. 2. The patient has biventricular failure with pulmonary hypertension. The patient has large hepatomegaly and elevated liver function tests, may be secondary to the hepatic congestion. 3. The patient does have congestion that could contribute to the elevated liver function tests. 4. Possibility of chronic liver disease, cirrhosis secondary cardiac considered. 5. Streptococcus viridans bacteremia, rule out endocarditis. 6. End-stage renal disease, on hemodialysis. 7. Acute diarrhea, rule out Clostridium difficile colitis. The patient is on p.o. vancomycin. 8. Mildly elevated chromogranin A level. RECOMMENDATIONS: Followup of the stool studies, slowly advance the diet to pureed diet to see if the patient can tolerate. The patient presently on Reglan, renally adjust the dose. We will give only short courses to avoid the long-term sequelae. We will continue to closely follow up her care and suggest further management based on the clinical course. Jesus Manuel Rosado MD MTDD
--- NOTE | 2018-01-08 07:36 | CP.PCM.PN ---
Subjective - Date & Time of Evaluation Date of Evaluation: 01/08/18 Time of Evaluation: 06:25 - Subjective Subjective: Awake, lying in bed ,no distress,feeling better Reason for consultation and follow up:Cardiac evaluation for shortness of breath , cardiomyopathy, pulmonary hypertension, Seen and examined by me and Dr. Mccullough Objective - Vital Signs/Intake and Output Vital Signs (last 24 hours): Temp Pulse Resp BP Pulse Ox 97.9 F 82 18 135/60 97 01/08/18 06:00 01/08/18 06:00 01/08/18 06:00 01/08/18 06:00 01/08/18 06:00 Intake and Output: 01/08/18 01/08/18 06:59 18:59 Intake Total 360 Output Total 0 Balance 360 - Medications Medications: Current Medications Atorvastatin Calcium (Lipitor) 80 mg PO DIN [facility] Last Admin: 01/07/18 17:08 Dose: 80 mg Carvedilol (Coreg) 3.125 mg PO BID [facility] Last Admin: 01/07/18 17:08 Dose: 3.125 mg Cinacalcet (Sensipar) 30 mg PO DAILY [facility] Last Admin: 01/07/18 09:02 Dose: 30 mg Digoxin (Digoxin) 0.125 mg PO MWF [facility] Last Admin: 01/05/18 09:25 Dose: 0.125 mg Hydromorphone HCl (Dilaudid) 1 mg PO Q4H PRN PRN Reason: Pain, moderate (4-7) Last Admin: 01/08/18 00:39 Dose: 1 mg Daptomycin 370 mg/ Sodium (Chloride) 100 mls @ 200 mls/hr IV QOD [facility] Stop: 01/10/18 10:01 Last Admin: 01/07/18 10:14 Dose: 200 mls/hr Lactic Acid (Lac-Hydrin 12% Cream (140 G)) 0 ea TOP DAILY [facility] Last Admin: 01/07/18 09:04 Dose: Not Given Levalbuterol HCl (Xopenex) 1.25 mg IH 0200,0800,1400,2000 [facility] Last Admin: 01/08/18 07:34 Dose: 1.25 mg Lisinopril (Zestril) 2.5 mg PO DAILY [facility] Last Admin: 01/07/18 09:01 Dose: 2.5 mg Loratadine (Claritin) 10 mg PO DAILY [facility] Last Admin: 01/07/18 09:02 Dose: 10 mg Metoclopramide HCl (Reglan) 5 mg IVP ACHS PRN PRN Reason: Nausea/Vomiting Last Admin: 01/06/18 17:11 Dose: 5 mg Metronidazole (Flagyl) 500 mg PO Q8 LEX PRN Reason: Protocol Last Admin: 01/08/18 05:56 Dose: 500 mg Ondansetron HCl (Zofran Inj) 4 mg IVP Q6H PRN PRN Reason: Nausea/Vomiting Last Admin: 01/06/18 12:59 Dose: 4 mg Prednisone (Prednisone Tab) 10 mg PO BID [facility] Last Admin: 01/07/18 17:08 Dose: 10 mg Sevelamer HCl (Renagel) 800 mg PO DAILY [facility] Last Admin: 01/07/18 09:04 Dose: 800 mg - Labs Labs: 01/06/18 08:10 01/06/18 08:10 PT 14.8 SECONDS (9.4-12.5) H 12/29/17 20:10 INR 1.29 (0.93-1.08) H 12/29/17 20:10 APTT 28.3 Seconds (25.1-36.5) 12/29/17 20:10 - Constitutional Appears: No Acute Distress - Head Exam Head Exam: NORMOCEPHALIC - Eye Exam Eye Exam: Normal appearance - ENT Exam ENT Exam: Mucous Membranes Dry - Respiratory Exam Respiratory Exam: Decreased Breath Sounds, NORMAL BREATHING PATTERN - Cardiovascular Exam Cardiovascular Exam: REGULAR RHYTHM, +S1, +S2 Additional comments: NSR telemetry - GI/Abdominal Exam GI & Abdominal Exam: Soft, Normal Bowel Sounds - Extremities Exam Extremities Exam: Normal Capillary Refill - Neurological Exam Neurological Exam: Alert, Awake, Oriented x3 - Psychiatric Exam Psychiatric exam: Normal Affect, Normal Mood - Skin Skin Exam: Intact, Normal Color, Warm Assessment and Plan - Assessment and Plan (Free Text) Assessment: A 57 year old female who came in to the ER due to shortness of breath, possibly pneumonia. History of cardiomyopathy,COPD, asthmatic bronchitis, hypertension, hyperlipidemia, GI bleed, ESRD on hemodialysis (Monday, , Monday). current smoker,cholecystectomy,pericardial window for effusion, AV shunt,right hip surgery, 2017-Cardiac cath-normal coronaries. Admitted in 2017 with similar symptoms and Echo showed pulmonary hypertension and was treated with primacor with improvement, ECHO done showed LVEF 55%, Moderate to severe MR/TR, Severe pulmonary hypertension, severely impaired systolic function, No evidence of endocarditis. 01/04/18MUGA scan done -LVEF 31%, Moderate to severe LV dysfunction with diffuse hypokinesis, Normal RV function Plan: Controlled heart rate and blood pressure For KADY today to rule out endocarditis Turned off primacor prior to KADY On Coreg 3.125 mg BID,Zestril 2.5 mg daily,Digoxin 0.125 mg 3x a week (MWF) Seem to improved shortness of breath after starting Digoxin and Primacor Pneumonia, on antibiotics (Doxycycline & Aztreonam) ID on consult Continue all other medications Continue current treatment Will follow up Plan and treatment discussed with Dr. Mccullough
--- NOTE | 2018-01-08 10:36 | CP.PCM.PN ---
<Kelin Graf - Last Filed: 01/08/18 11:35> Subjective - Date & Time of Evaluation Date of Evaluation: 01/08/18 Time of Evaluation: 08:00 - Subjective Subjective: GI progress Note for Logan Barr PGY2 Patient seen and examined at bedside. There were no acute overnight events are per nursing staff. Patient said her diarrhea has improved. She denies fever, chills, nausea/vomiting, chest pain, shortness of breath, numbness/tingling, dysuria or hematuria. She is NPO today for KADY this afternoon. Objective - Vital Signs/Intake and Output Vital Signs (last 24 hours): Temp Pulse Resp BP Pulse Ox 97.9 F 82 18 135/60 97 01/08/18 06:00 01/08/18 06:00 01/08/18 06:00 01/08/18 06:00 01/08/18 06:00 Intake and Output: 01/08/18 01/08/18 06:59 18:59 Intake Total 360 Output Total 0 Balance 360 - Medications Medications: Current Medications Atorvastatin Calcium (Lipitor) 80 mg PO DIN [facility] Last Admin: 01/07/18 17:08 Dose: 80 mg Carvedilol (Coreg) 3.125 mg PO BID [facility] Last Admin: 01/07/18 17:08 Dose: 3.125 mg Cinacalcet (Sensipar) 30 mg PO DAILY [facility] Last Admin: 01/07/18 09:02 Dose: 30 mg Digoxin (Digoxin) 0.125 mg PO MWF [facility] Last Admin: 01/05/18 09:25 Dose: 0.125 mg Hydromorphone HCl (Dilaudid) 1 mg PO Q4H PRN PRN Reason: Pain, moderate (4-7) Last Admin: 01/08/18 00:39 Dose: 1 mg Daptomycin 370 mg/ Sodium (Chloride) 100 mls @ 200 mls/hr IV QOD [facility] Stop: 01/10/18 10:01 Last Admin: 01/07/18 10:14 Dose: 200 mls/hr Lactic Acid (Lac-Hydrin 12% Cream (140 G)) 0 ea TOP DAILY [facility] Last Admin: 01/07/18 09:04 Dose: Not Given Levalbuterol HCl (Xopenex) 1.25 mg IH 0200,0800,1400,2000 [facility] Last Admin: 01/08/18 07:34 Dose: 1.25 mg Lisinopril (Zestril) 2.5 mg PO DAILY [facility] Last Admin: 01/07/18 09:01 Dose: 2.5 mg Loratadine (Claritin) 10 mg PO DAILY [facility] Last Admin: 01/07/18 09:02 Dose: 10 mg Metoclopramide HCl (Reglan) 5 mg IVP ACHS PRN PRN Reason: Nausea/Vomiting Last Admin: 01/06/18 17:11 Dose: 5 mg Metronidazole (Flagyl) 500 mg PO Q8 [facility] PRN Reason: Protocol Last Admin: 01/08/18 05:56 Dose: 500 mg Ondansetron HCl (Zofran Inj) 4 mg IVP Q6H PRN PRN Reason: Nausea/Vomiting Last Admin: 01/06/18 12:59 Dose: 4 mg Prednisone (Prednisone Tab) 10 mg PO BID [facility] Last Admin: 01/07/18 17:08 Dose: 10 mg Sevelamer HCl (Renagel) 800 mg PO DAILY [facility] Last Admin: 01/07/18 09:04 Dose: 800 mg - Labs Labs: 01/06/18 08:10 01/06/18 08:10 PT 14.8 SECONDS (9.4-12.5) H 12/29/17 20:10 INR 1.29 (0.93-1.08) H 12/29/17 20:10 APTT 28.3 Seconds (25.1-36.5) 12/29/17 20:10 - Constitutional Appears: Chronically Ill - Head Exam Head Exam: ATRAUMATIC, NORMAL INSPECTION, NORMOCEPHALIC - Eye Exam Eye Exam: Normal appearance Pupil Exam: NORMAL ACCOMODATION - ENT Exam ENT Exam: Mucous Membranes Dry - Respiratory Exam Respiratory Exam: Clear to Ausculation Bilateral, NORMAL BREATHING PATTERN. absent: Rales, Rhonchi, Wheezes - Cardiovascular Exam Cardiovascular Exam: REGULAR RHYTHM, +S1, +S2. absent: Gallop, Rubs, Murmur - GI/Abdominal Exam GI & Abdominal Exam: Soft, Normal Bowel Sounds. absent: Rigid, Tenderness, Mass , Rebound - Extremities Exam Extremities Exam: absent: Calf Tenderness, Pedal Edema - Neurological Exam Neurological Exam: Alert, Awake, Oriented x3 - Psychiatric Exam Psychiatric exam: Normal Affect, Normal Mood - Skin Skin Exam: Dry, Warm Assessment and Plan - Assessment and Plan (Free Text) Assessment: This is a 57yo female with past medical history of ESRD on HD, biventricular failure with pulm HTN, hepatomegaly with possible chronic liver disease, mildly elevated chromographin A level. Dieulafoy lesion s/p clipping who was admitted for 1. Bacteremia (S. Viridans) 2. Diarrhea (improved) 3. ESRD on HD 4. Dilated cardiomyopathy (EF 31%) 5. Anemia (chronic) Plan: TTE was negative for vegetations. Patient will have KADY today and will follow up results. GI symptoms have improved. C.diff noted to be negative. Patient reports feeling hungry. Will continue to monitor LFTs. Continue short course of Reglan. Diet can be advanced to puree after KADY. Case seen, discussed and reviewed with Dr. Rosado. Logan Graf PGY2 <Jesus Manuel Rosado V - Last Filed: 01/08/18 22:28> Objective - Vital Signs/Intake and Output Vital Signs (last 24 hours): Temp Pulse Resp BP Pulse Ox 97.8 F 80 18 141/79 95 01/08/18 18:00 01/08/18 18:00 01/08/18 18:00 01/08/18 18:00 01/08/18 16:15 Intake and Output: 01/08/18 01/09/18 18:59 06:59 Intake Total 50 Balance 50 - Medications Medications: Current Medications Atorvastatin Calcium (Lipitor) 80 mg PO DIN [facility] Last Admin: 01/08/18 17:53 Dose: 80 mg Carvedilol (Coreg) 3.125 mg PO BID [facility] Last Admin: 01/08/18 17:54 Dose: 3.125 mg Cinacalcet (Sensipar) 30 mg PO DAILY [facility] Last Admin: 01/08/18 17:53 Dose: 30 mg Digoxin (Digoxin) 0.125 mg PO MWF [facility] Last Admin: 01/08/18 17:54 Dose: 0.125 mg Hydromorphone HCl (Dilaudid) 1 mg PO Q4H PRN PRN Reason: Pain, moderate (4-7) Last Admin: 01/08/18 18:04 Dose: 1 mg Daptomycin 370 mg/ Sodium (Chloride) 100 mls @ 200 mls/hr IV QOD [facility] Stop: 01/10/18 10:01 Last Admin: 01/07/18 10:14 Dose: 200 mls/hr Lactic Acid (Lac-Hydrin 12% Cream (140 G)) 0 ea TOP DAILY [facility] Last Admin: 01/08/18 17:54 Dose: 1 applic Lactobacillus Acidophilus (Bacid Acidophilus) 1 cap PO BID [facility] Last Admin: 01/08/18 17:53 Dose: 1 cap Levalbuterol HCl (Xopenex) 1.25 mg IH 0200,0800,1400,2000 [facility] Last Admin: 01/08/18 19:29 Dose: 1.25 mg Lisinopril (Zestril) 2.5 mg PO DAILY [facility] Last Admin: 01/08/18 17:53 Dose: 2.5 mg Loratadine (Claritin) 10 mg PO DAILY [facility] Last Admin: 01/08/18 17:54 Dose: 10 mg Metoclopramide HCl (Reglan) 5 mg IVP ACHS PRN PRN Reason: Nausea/Vomiting Last Admin: 01/06/18 17:11 Dose: 5 mg Metronidazole (Flagyl) 500 mg PO Q8 [facility] PRN Reason: Protocol Last Admin: 01/08/18 21:19 Dose: 500 mg Ondansetron HCl (Zofran Inj) 4 mg IVP Q6H PRN PRN Reason: Nausea/Vomiting Last Admin: 01/06/18 12:59 Dose: 4 mg Prednisone (Prednisone Tab) 10 mg PO BID [facility] Last Admin: 01/08/18 17:54 Dose: 10 mg Sevelamer HCl (Renagel) 800 mg PO DAILY [facility] Last Admin: 01/08/18 17:53 Dose: 800 mg - Labs Labs: 01/06/18 08:10 01/06/18 08:10 PT 14.8 SECONDS (9.4-12.5) H 12/29/17 20:10 INR 1.29 (0.93-1.08) H 12/29/17 20:10 APTT 28.3 Seconds (25.1-36.5) 12/29/17 20:10 Attending/Attestation - Attestation I have personally seen and examined this patient.: Yes I have fully participated in the care of the patient.: Yes I have reviewed all pertinent clinical information, including history, physical exam and plan: Yes Notes (Text): This is an addendum to GI followup report dictated by the [employer] Supervisor the.The patient was seen and examined earlier. Medical records, lab studies, imagings were reviewed. Last 24 hours events reviewed. Agreed with the above treatment plan as outlined in [employer] Supervisor 's notes the with the addition of the following states her diarrhea has slowed down On examination abdomen soft and mild tenderness in epigastric area Patient's upper abdominal pain to hepatic congestion Patient has been on Reglan and would restrict it to short courses Follow up of hemoglobin and thrombocytopenia would use low dose Carafate Follow up stool studies 01/08/18 22:21
[2018-01-08] MEDS ORDERED: Naloxone 0.4 mg/ml Inj (Adult) ONE (11:53)
[2018-01-08] MEDS ORDERED: Midazolam 2 MG/2 ML VIAL ONE (11:53)
[2018-01-08] MEDS ORDERED: Flumazenil 0.1 mg/ml Inj (5ml) IVP ONE (11:53)
[2018-01-08] MEDS ORDERED: Midazolam 2 MG/2 ML VIAL IV ONE ×3 (12:05→12:14)
--- NOTE | 2018-01-08 12:09 | CP.PCM.PN ---
Subjective - Date & Time of Evaluation Date of Evaluation: 01/08/18 Time of Evaluation: 09:00 - Subjective Subjective: For KADY today, no fevers, no nausea, breathing a little better. Objective - Vital Signs/Intake and Output Vital Signs (last 24 hours): Temp Pulse Resp BP Pulse Ox 97.9 F 82 18 135/60 97 01/08/18 06:00 01/08/18 06:00 01/08/18 06:00 01/08/18 06:00 01/08/18 06:00 Intake and Output: 01/08/18 01/08/18 06:59 18:59 Intake Total 360 Output Total 0 Balance 360 - Medications Medications: Current Medications Atorvastatin Calcium (Lipitor) 80 mg PO DIN [facility] Last Admin: 01/07/18 17:08 Dose: 80 mg Carvedilol (Coreg) 3.125 mg PO BID [facility] Last Admin: 01/07/18 17:08 Dose: 3.125 mg Cinacalcet (Sensipar) 30 mg PO DAILY [facility] Last Admin: 01/07/18 09:02 Dose: 30 mg Digoxin (Digoxin) 0.125 mg PO MWF [facility] Last Admin: 01/05/18 09:25 Dose: 0.125 mg Hydromorphone HCl (Dilaudid) 1 mg PO Q4H PRN PRN Reason: Pain, moderate (4-7) Last Admin: 01/08/18 00:39 Dose: 1 mg Daptomycin 370 mg/ Sodium (Chloride) 100 mls @ 200 mls/hr IV QOD [facility] Stop: 01/10/18 10:01 Last Admin: 01/07/18 10:14 Dose: 200 mls/hr Lactic Acid (Lac-Hydrin 12% Cream (140 G)) 0 ea TOP DAILY [facility] Last Admin: 01/07/18 09:04 Dose: Not Given Levalbuterol HCl (Xopenex) 1.25 mg IH 0200,0800,1400,2000 [facility] Last Admin: 01/08/18 07:34 Dose: 1.25 mg Lisinopril (Zestril) 2.5 mg PO DAILY [facility] Last Admin: 01/07/18 09:01 Dose: 2.5 mg Loratadine (Claritin) 10 mg PO DAILY [facility] Last Admin: 01/07/18 09:02 Dose: 10 mg Metoclopramide HCl (Reglan) 5 mg IVP ACHS PRN PRN Reason: Nausea/Vomiting Last Admin: 01/06/18 17:11 Dose: 5 mg Metronidazole (Flagyl) 500 mg PO Q8 [facility] PRN Reason: Protocol Last Admin: 01/08/18 05:56 Dose: 500 mg Ondansetron HCl (Zofran Inj) 4 mg IVP Q6H PRN PRN Reason: Nausea/Vomiting Last Admin: 01/06/18 12:59 Dose: 4 mg Prednisone (Prednisone Tab) 10 mg PO BID [facility] Last Admin: 01/07/18 17:08 Dose: 10 mg Sevelamer HCl (Renagel) 800 mg PO DAILY [facility] Last Admin: 01/07/18 09:04 Dose: 800 mg - Labs Labs: 01/06/18 08:10 01/06/18 08:10 PT 14.8 SECONDS (9.4-12.5) H 12/29/17 20:10 INR 1.29 (0.93-1.08) H 12/29/17 20:10 APTT 28.3 Seconds (25.1-36.5) 12/29/17 20:10 - Constitutional Appears: Chronically Ill - Head Exam Head Exam: NORMAL INSPECTION - Respiratory Exam Respiratory Exam: Decreased Breath Sounds - Cardiovascular Exam Cardiovascular Exam: +S1, +S2 - GI/Abdominal Exam GI & Abdominal Exam: Soft. absent: Tenderness Assessment and Plan - Assessment and Plan (Free Text) Plan: Assessment Strep viridans bacteremia R/O endocarditis; S/P treatment of HCAP CHF now on Primacor drip chronic pain syndrome probable arthritis of the hips and knees history of atypical pneumonia HTN dysipidemia ESRD on HD Peptic ulcer disease chronic pain syndrome small brain aneurysm Plan S/P 7 days of Azactam and Doxycycline continue Daptomycin day 5 of 28 days; repeat blood cultures from yesterday are negative so far; reviewed 2D echo which does not show vegetations - will have KADY today - may be able to switch to IV Vancomycin to complete the 28 days will continue to monitor clinically
--- NOTE | 2018-01-08 14:02 | PN ---
DATE: 01/08/2018 SUBJECTIVE: The patient is seen on her way to KADY. She is lethargic. Very weak. PHYSICAL EXAMINATION: GENERAL: Middle-aged lady, lying in bed. VITAL SIGNS: Blood pressure 135/60, heart rate 82, respiratory rate 18, and temperature 97.9. HEENT: Normocephalic, atraumatic. NECK: Supple, no JVD. LUNGS: Bilateral equal air entry, bilateral poor inspiratory effort. CARDIAC: S1 and S2, regular rate and rhythm, positive murmur, no rub. ABDOMEN: Soft, nondistended, nontender, bowel sounds present. EXTREMITIES: Chronic stasis changes, wrinkling of skin, hyperpigmentation of skin LABORATORY DATA: No new labs. CURRENT MEDICATIONS: Claritin, Coreg, daptomycin, digoxin, Dilaudid, Flagyl, Lipitor, prednisone, Reglan, Renagel, Sensipar, Xopenex, Zestril, Zofran. Milrinone was discontinued this morning. ASSESSMENT: 1. Severe cardiomyopathy, dilated cardiomyopathy, decreased ejection fraction. 2. Streptococcus viridans bacteremia. 3. Thrombocytopenia. 4. Anemia. 5. End-stage renal disease. 6. Chronic obstructive pulmonary disease. PLAN: 1. Follow up KADY results. 2. Continue antibiotics. 3. Ultrafiltration today after KADY. 4. Chronic liver disease? Mansi Rose MD
--- NOTE | 2018-01-08 16:09 | CARD ---
APPROVED REPORT EXAM: Transesophageal echocardiogram with color flow Doppler. INDICATION Infection : Rule out subacute bacterial endocarditis Mitral Valve E/A ratio0.0 TDI E/Lateral E'0.0E/Medial E'0.0 Tricuspid Valve TR Peak [id number] [id number] Peak Gr.64mmHg [id number] Reason For Test : Rule out endocarditis. PROCEDURE After obtaining informed consent, patient underwent transesophageal echo in the Echo Lab. Type of Sedation : Conscious Sedation Sedation was administered by Dr. Mccullough. Sedation was achieved with Versed and, Fentanyl 3mg and 100 mcg intravenously. Transesophageal probe was inserted and advanced into esophagus without difficulty. Echo enhancement indication: R/O Septal defect. Echo enhancement agent administered: Agitated Saline The KADY was performed without complications. Throughout the procedure, the blood pressure, pulse oximetry, cardiac rhythm, and rate were monitored. The patient tolerated the procedure without adverse effects. Recovery from conscious sedation was uneventful and vital signs were stable. LEFT VENTRICLE The Left Ventricle is mildly dilated. There is mild left ventricular hypertrophy. Left ventricle systolic function is moderately to severely impaired.EF-25% There is global hypokinesis of the left ventricle. No left ventricle thrombus noted on this study. There is no ventricular septal defect visualized. There is no left ventricular aneurysm. There is no mass noted in the left ventricle. RIGHT VENTRICLE The right ventricle is moderately dilated. There is normal right ventricular wall thickness. Systolic function is moderately reduced. ATRIA The left atrium is moderately dilated. The right atrium is moderately dilated. The interatrial septum is intact with no evidence for an atrial septal defect. AORTIC VALVE The aortic valve is mildly thickened. There is mild aortic regurgitation. There is no aortic valvular stenosis. There is no aortic valvular vegetation. MITRAL VALVE The mitral valve leaflets are thickened. There is no evidence of mitral valve prolapse. There is no mitral valve stenosis. Mitral regurgitation is moderate to severe. TRICUSPID VALVE The tricuspid valve leaflets display thickening. There is severe tricuspid regurgitation.RVSDP-74 mmof hg. There is severe pulmonary hypertension. There is no tricuspid valve prolapse or vegetation. There is no tricuspid valve stenosis. PULMONIC VALVE The pulmonary valve is normal in structure. There is trace to mild pulmonic valvular regurgitation. There is no pulmonic valvular stenosis. GREAT VESSELS The aortic root is normal in size. The ascending aorta is normal in size. The pulmonary artery is normal. The IVC is normal in size and collapses >50% with inspiration. PERICARDIAL EFFUSION There is no pericardial effusion. There is no pleural effusion. <Conclusion> Four Chamber dilatation C/w cardiomyopathy, Ef-25% ( off primacor) Moderate to severe MR Severe TR, RVSP-74 Mmof Hg, c/w severe pulmonary HTN No evidence of Endocarditis Noted.
--- NOTE | 2018-01-08 17:26 | PN ---
DATE: 01/08/2018 SUBJECTIVE: The patient is 57-year-old, lying in the bed, seems to be comfortable, looks very pale, sleepy but arousable. PHYSICAL EXAMINATION: VITAL SIGNS: She is afebrile, pulse 84, respirations 18, blood pressure 143/57. LUNGS: Bilateral diffusely decreased breath sounds. HEART: S1 and S2 audible. ABDOMEN: Soft and nontender. No rebound. No guarding. NEUROLOGIC: The patient is awake, alert, and oriented, able to communicate. DATA: Her full blood culture positive for Streptococcus viridans. Stool for C. diff is negative. The patient had MUGA scan done that shows diffuse hypokinesia of the left ventricle with ejection fraction of 31%. ASSESSMENT: 1. Bacteremia, rule out endocarditis. The patient is going for transesophageal echocardiogram today. 2. Left ventricular dysfunction with cardiomyopathy. 3. End-stage renal disease, on hemodialysis. 4. History of hypertension. 5. History of gastrointestinal arteriovenous malformations. 6. Pulmonary hypertension. 7. Chronic obstructive pulmonary disease secondary to active smoking of many, many years. PLAN: So, plan is the patient is going for KADY. Continue on IV antibiotic. Currently, the patient is on daptomycin. She is on tapering dose of steroids. Stool for C. diff is negative. May discontinue Flagyl if okay with ID and start her on Lactobacillus since she has history of C. diff in the past and she is on antibiotics. Shawn Gomez MD
[2018-01-08] MEDS: Lactobacillus Acidophilus 500 MU Cap PO SCH (17:53)
[2018-01-08] MEDS: Digoxin 125 mcg (0.125 mg) Tab PO SCH (17:54)
[2018-01-08] MEDS: Ammonium Lactate 12% Cream (140 g) TOP SCH (17:54)
[2018-01-09] MEDS ORDERED: Milrinone 20mg/100ml D5W 100 ML IV PRN
--- NOTE | 2018-01-09 00:22 | CP.PCM.PN ---
Subjective - Date & Time of Evaluation Date of Evaluation: 01/09/18 Time of Evaluation: 00:01 Objective - Vital Signs/Intake and Output Vital Signs (last 24 hours): Temp Pulse Resp BP Pulse Ox 97.8 F 80 18 141/79 95 01/08/18 18:00 01/08/18 22:00 01/08/18 18:00 01/08/18 18:00 01/08/18 16:15 Intake and Output: 01/08/18 01/09/18 18:59 06:59 Intake Total 50 Output Total 0 Balance 50 0 - Medications Medications: Current Medications Atorvastatin Calcium (Lipitor) 80 mg PO DIN [facility] Last Admin: 01/08/18 17:53 Dose: 80 mg Carvedilol (Coreg) 3.125 mg PO BID [facility] Last Admin: 01/08/18 17:54 Dose: 3.125 mg Cinacalcet (Sensipar) 30 mg PO DAILY [facility] Last Admin: 01/08/18 17:53 Dose: 30 mg Digoxin (Digoxin) 0.125 mg PO MWF [facility] Last Admin: 01/08/18 17:54 Dose: 0.125 mg Hydromorphone HCl (Dilaudid) 1 mg PO Q4H PRN PRN Reason: Pain, moderate (4-7) Last Admin: 01/08/18 18:04 Dose: 1 mg Daptomycin 370 mg/ Sodium (Chloride) 100 mls @ 200 mls/hr IV QOD [facility] Stop: 01/10/18 10:01 Last Admin: 01/07/18 10:14 Dose: 200 mls/hr Lactic Acid (Lac-Hydrin 12% Cream (140 G)) 0 ea TOP DAILY [facility] Last Admin: 01/08/18 17:54 Dose: 1 applic Lactobacillus Acidophilus (Bacid Acidophilus) 1 cap PO BID [facility] Last Admin: 01/08/18 17:53 Dose: 1 cap Levalbuterol HCl (Xopenex) 1.25 mg IH 0200,0800,1400,2000 [facility] Last Admin: 01/08/18 19:29 Dose: 1.25 mg Lisinopril (Zestril) 2.5 mg PO DAILY [facility] Last Admin: 01/08/18 17:53 Dose: 2.5 mg Loratadine (Claritin) 10 mg PO DAILY [facility] Last Admin: 01/08/18 17:54 Dose: 10 mg Metoclopramide HCl (Reglan) 5 mg IVP ACHS PRN PRN Reason: Nausea/Vomiting Last Admin: 01/06/18 17:11 Dose: 5 mg Metronidazole (Flagyl) 500 mg PO Q8 [facility] PRN Reason: Protocol Last Admin: 01/08/18 21:19 Dose: 500 mg Ondansetron HCl (Zofran Inj) 4 mg IVP Q6H PRN PRN Reason: Nausea/Vomiting Last Admin: 01/06/18 12:59 Dose: 4 mg Prednisone (Prednisone Tab) 10 mg PO BID [facility] Last Admin: 01/08/18 17:54 Dose: 10 mg Sevelamer HCl (Renagel) 800 mg PO DAILY [facility] Last Admin: 01/08/18 17:53 Dose: 800 mg - Labs Labs: 01/06/18 08:10 01/06/18 08:10 PT 14.8 SECONDS (9.4-12.5) H 12/29/17 20:10 INR 1.29 (0.93-1.08) H 12/29/17 20:10 APTT 28.3 Seconds (25.1-36.5) 12/29/17 20:10
[2018-01-09] MEDS: Levalbuterol 1.25 MG/3 ML Inhal Soln UD IH SCH ×4 (01:25→19:55)
[2018-01-09] MEDS: Lactobacillus Acidophilus 500 MU Cap PO SCH ×2 (09:25→17:11)
[2018-01-09] MEDS ORDERED: Vancomycin 1gm in NS 250ml 1 GM/250 ML BAG IVPB STA (09:36)
[2018-01-09 11:54] LABS: ALBUMIN 2.5 g/dL (3.0-4.8); CALCIUM 7.3 mg/dL (8.4-10.5)
[2018-01-09 11:58] LABS: EOS # 0.1 (0.0-0.7); GRAN # 5.96 (1.4-6.5); LYMPH # 0.4 (1.2-3.4); LYMPH % 5.6 % (22.0-35.0); MEAN CELL VOLUME 81.5 fl (80.0-105.0); MEAN CORPUSCULAR HEMOGLOBIN 25.1 pg (25.0-35.0); MEAN CORPUSCULAR HGB CONC 30.8 g/dl (31.0-37.0); MEAN PLATELET VOLUME 9.7 fl (7.0-11.0); MONO # 0.5 (0.1-0.6); MONO % 7.4 % (1.0-6.0); RBC 3.19 10^6/uL (3.5-6.1); RED CELL DISTRIBUTION WIDTH 18.1 % (11.5-14.5); WHITE BLOOD COUNT 6.9 10^3/ul (4.5-11.0)
[2018-01-09 12:05] LABS: PLATELET COUNT 28 10^3/uL (120.0-450.0)
--- NOTE | 2018-01-09 12:35 | CP.PCM.PN ---
<Jennifer Barron - Last Filed: 01/09/18 13:57> Subjective - Date & Time of Evaluation Date of Evaluation: 01/09/18 Time of Evaluation: 10:40 - Subjective Subjective: S&E at bedside, chart reviewed, no acute overnight events reported. No N/V or abdominal pain. Tolerated clear liquid, no postprandial nausea. Had BM last night, no diarrhea or overt GI bleeding. For dialysis today. Objective - Vital Signs/Intake and Output Vital Signs (last 24 hours): Temp Pulse Resp BP Pulse Ox 97.9 F 89 18 150/67 95 01/09/18 06:00 01/09/18 06:00 01/09/18 06:00 01/09/18 06:00 01/08/18 16:15 Intake and Output: 01/09/18 01/09/18 06:59 18:59 Intake Total 120 Output Total 0 Balance 120 - Medications Medications: Current Medications Atorvastatin Calcium (Lipitor) 80 mg PO DIN [facility] Last Admin: 01/08/18 17:53 Dose: 80 mg Carvedilol (Coreg) 3.125 mg PO BID [facility] Last Admin: 01/09/18 10:00 Dose: Not Given Cinacalcet (Sensipar) 30 mg PO DAILY [facility] Last Admin: 01/09/18 09:25 Dose: 30 mg Digoxin (Digoxin) 0.125 mg PO [facility] Last Admin: 01/08/18 17:54 Dose: 0.125 mg Hydromorphone HCl (Dilaudid) 1 mg PO Q4H PRN PRN Reason: Pain, moderate (4-7) Last Admin: 01/09/18 06:19 Dose: 1 mg Vancomycin HCl (Vancomycin 1gm) 1 gm in 250 mls @ 167 mls/hr IVPB [facility] PRN Reason: Protocol Lactic Acid (Lac-Hydrin 12% Cream (140 G)) 0 ea TOP DAILY [facility] Last Admin: 01/08/18 17:54 Dose: 1 applic Lactobacillus Acidophilus (Bacid Acidophilus) 1 cap PO BID [facility] Last Admin: 01/09/18 09:25 Dose: 1 cap Levalbuterol HCl (Xopenex) 1.25 mg IH 0200,0800,1400,2000 [facility] Last Admin: 01/09/18 07:24 Dose: 1.25 mg Lisinopril (Zestril) 2.5 mg PO DAILY [facility] Last Admin: 01/09/18 10:00 Dose: Not Given Loratadine (Claritin) 10 mg PO DAILY [facility] Last Admin: 01/09/18 09:25 Dose: 10 mg Metoclopramide HCl (Reglan) 5 mg IVP [facility] PRN PRN Reason: Nausea/Vomiting Last Admin: 01/06/18 17:11 Dose: 5 mg Ondansetron HCl (Zofran Inj) 4 mg IVP Q6H PRN PRN Reason: Nausea/Vomiting Last Admin: 01/06/18 12:59 Dose: 4 mg Prednisone (Prednisone Tab) 10 mg PO BID [facility] Last Admin: 01/09/18 09:24 Dose: 10 mg Sevelamer HCl (Renagel) 800 mg PO DAILY [facility] Last Admin: 01/09/18 09:25 Dose: 800 mg - Labs Labs: 01/09/18 11:10 01/09/18 11:10 PT 14.8 SECONDS (9.4-12.5) H 12/29/17 20:10 INR 1.29 (0.93-1.08) H 12/29/17 20:10 APTT 28.3 Seconds (25.1-36.5) 12/29/17 20:10 - Constitutional Appears: No Acute Distress - Head Exam Head Exam: NORMOCEPHALIC - Eye Exam Eye Exam: Normal appearance. absent: Scleral icterus - ENT Exam ENT Exam: Mucous Membranes Moist - Neck Exam Neck Exam: Normal Inspection - Respiratory Exam Respiratory Exam: NORMAL BREATHING PATTERN. absent: Respiratory Distress - Cardiovascular Exam Cardiovascular Exam: +S1, +S2 - GI/Abdominal Exam GI & Abdominal Exam: Soft, Normal Bowel Sounds. absent: Guarding, Tenderness, Rebound - Extremities Exam Extremities Exam: absent: Calf Tenderness - Neurological Exam Neurological Exam: Alert, Awake, Oriented x3 - Skin Skin Exam: Dry, Warm Assessment and Plan - Assessment and Plan (Free Text) Assessment: Assessment: Bacteremia (S. Viridans) Diarrhea (improved) , cdiff negative ESRD on HD Dilated cardiomyopathy (EF 31%) Biventricular failure w/ pulmonary HTN Anemia (chronic) H/O mildly elevated Chromogranin A Thrombocytopenia PLAN: on clears, advance as tolerated to puree Trend LFT on Reglan, recommend short course monitor H/H and for overt GI bleeding on IV antibiotics as per ID on Probiotics Seen and discussed with Dr. Rosado. <Jesus Manuel Rosado V - Last Filed: 01/09/18 23:43> Objective - Vital Signs/Intake and Output Vital Signs (last 24 hours): Temp Pulse Resp BP Pulse Ox 98.4 F 80 20 147/70 98 01/09/18 18:00 01/09/18 18:00 01/09/18 18:00 01/09/18 18:00 01/09/18 18:00 Intake and Output: 01/09/18 01/10/18 18:59 06:59 Intake Total 360 Output Total 0 Balance 360 - Medications Medications: Current Medications Atorvastatin Calcium (Lipitor) 80 mg PO DIN [facility] Last Admin: 01/09/18 17:13 Dose: 80 mg Carvedilol (Coreg) 3.125 mg PO BID [facility] Last Admin: 01/09/18 17:12 Dose: 3.125 mg Cinacalcet (Sensipar) 30 mg PO DAILY [facility] Last Admin: 01/09/18 09:25 Dose: 30 mg Digoxin (Digoxin) 0.125 mg PO F [facility] Last Admin: 01/08/18 17:54 Dose: 0.125 mg Hydromorphone HCl (Dilaudid) 1 mg PO Q4H PRN PRN Reason: Pain, moderate (4-7) Last Admin: 01/09/18 17:12 Dose: 1 mg Vancomycin HCl (Vancomycin 1gm) 1 gm in 250 mls @ 167 mls/hr IVPB [facility] [place] PRN Reason: Protocol Lactic Acid (Lac-Hydrin 12% Cream (140 G)) 0 ea TOP DAILY [facility] Last Admin: 01/08/18 17:54 Dose: 1 applic Lactobacillus Acidophilus (Bacid Acidophilus) 1 cap PO BID [facility] Last Admin: 01/09/18 17:11 Dose: 1 cap Levalbuterol HCl (Xopenex) 1.25 mg IH 0200,0800,1400,2000 [facility] Last Admin: 01/09/18 19:55 Dose: 1.25 mg Lisinopril (Zestril) 2.5 mg PO DAILY [facility] Last Admin: 01/09/18 10:00 Dose: Not Given Loratadine (Claritin) 10 mg PO DAILY [facility] Last Admin: 01/09/18 09:25 Dose: 10 mg Metoclopramide HCl (Reglan) 5 mg IVP [facility] PRN PRN Reason: Nausea/Vomiting Last Admin: 01/06/18 17:11 Dose: 5 mg Ondansetron HCl (Zofran Inj) 4 mg IVP Q6H PRN PRN Reason: Nausea/Vomiting Last Admin: 01/06/18 12:59 Dose: 4 mg Prednisone (Prednisone Tab) 10 mg PO BID [facility] Last Admin: 01/09/18 17:13 Dose: 10 mg Sevelamer HCl (Renagel) 800 mg PO DAILY [facility] Last Admin: 01/09/18 09:25 Dose: 800 mg - Labs Labs: 01/09/18 11:10 01/09/18 11:10 PT 14.8 SECONDS (9.4-12.5) H 12/29/17 20:10 INR 1.29 (0.93-1.08) H 12/29/17 20:10 APTT 28.3 Seconds (25.1-36.5) 12/29/17 20:10 Attending/Attestation - Attestation I have personally seen and examined this patient.: Yes I have fully participated in the care of the patient.: Yes I have reviewed all pertinent clinical information, including history, physical exam and plan: Yes Notes (Text): This is an addendum to GI progress report dictated by Jennifer Barron APN.The patient was seen and examined earlier. Medical records, lab studies, imagings were reviewed. Last 24 hours events reviewed. Agreed with the above treatment plan as outlined in Jennifer Barron APN's notes the with the addition of the following diarrhea has slightly improved Continue only short course of Reglan Advance diet to pured diet consider dose dose H2 edith once thrombocytopenia improves Follow-up of cardiology and ID 01/09/18 23:40
--- NOTE | 2018-01-09 12:37 | CP.PCM.PN ---
Subjective - Date & Time of Evaluation Date of Evaluation: 01/09/18 Time of Evaluation: 10:35 - Subjective Subjective: Patient is resting comfortably in bed, no fevers, not in distress. Objective - Vital Signs/Intake and Output Vital Signs (last 24 hours): Temp Pulse Resp BP Pulse Ox 98.7 F 89 17 151/69 H 95 01/09/18 00:01 01/09/18 00:01 01/09/18 00:01 01/09/18 00:01 01/08/18 16:15 Intake and Output: 01/08/18 01/09/18 18:59 06:59 Intake Total 50 120 Output Total 0 Balance 50 120 - Medications Medications: Current Medications Atorvastatin Calcium (Lipitor) 80 mg PO DIN [facility] Last Admin: 01/08/18 17:53 Dose: 80 mg Carvedilol (Coreg) 3.125 mg PO BID [facility] Last Admin: 01/08/18 17:54 Dose: 3.125 mg Cinacalcet (Sensipar) 30 mg PO DAILY [facility] Last Admin: 01/08/18 17:53 Dose: 30 mg Digoxin (Digoxin) 0.125 mg PO MWF [facility] Last Admin: 01/08/18 17:54 Dose: 0.125 mg Hydromorphone HCl (Dilaudid) 1 mg PO Q4H PRN PRN Reason: Pain, moderate (4-7) Last Admin: 01/08/18 18:04 Dose: 1 mg Daptomycin 370 mg/ Sodium (Chloride) 100 mls @ 200 mls/hr IV QOD [facility] Stop: 01/10/18 10:01 Last Admin: 01/07/18 10:14 Dose: 200 mls/hr Lactic Acid (Lac-Hydrin 12% Cream (140 G)) 0 ea TOP DAILY [facility] Last Admin: 01/08/18 17:54 Dose: 1 applic Lactobacillus Acidophilus (Bacid Acidophilus) 1 cap PO BID [facility] Last Admin: 01/08/18 17:53 Dose: 1 cap Levalbuterol HCl (Xopenex) 1.25 mg IH 0200,0800,1400,2000 [facility] Last Admin: 01/09/18 01:25 Dose: 1.25 mg Lisinopril (Zestril) 2.5 mg PO DAILY [facility] Last Admin: 01/08/18 17:53 Dose: 2.5 mg Loratadine (Claritin) 10 mg PO DAILY [facility] Last Admin: 01/08/18 17:54 Dose: 10 mg Metoclopramide HCl (Reglan) 5 mg IVP [facility] PRN PRN Reason: Nausea/Vomiting Last Admin: 01/06/18 17:11 Dose: 5 mg Metronidazole (Flagyl) 500 mg PO Q8 [facility] PRN Reason: Protocol Last Admin: 01/08/18 21:19 Dose: 500 mg Ondansetron HCl (Zofran Inj) 4 mg IVP Q6H PRN PRN Reason: Nausea/Vomiting Last Admin: 01/06/18 12:59 Dose: 4 mg Prednisone (Prednisone Tab) 10 mg PO BID [facility] Last Admin: 01/08/18 17:54 Dose: 10 mg Sevelamer HCl (Renagel) 800 mg PO DAILY [facility] Last Admin: 01/08/18 17:53 Dose: 800 mg - Labs Labs: 01/06/18 08:10 01/06/18 08:10 PT 14.8 SECONDS (9.4-12.5) H 12/29/17 20:10 INR 1.29 (0.93-1.08) H 12/29/17 20:10 APTT 28.3 Seconds (25.1-36.5) 12/29/17 20:10 - Constitutional Appears: Non-toxic, Chronically Ill - Head Exam Head Exam: NORMAL INSPECTION - Respiratory Exam Respiratory Exam: Decreased Breath Sounds - Cardiovascular Exam Cardiovascular Exam: +S1, +S2 - GI/Abdominal Exam GI & Abdominal Exam: Soft. absent: Tenderness Assessment and Plan - Assessment and Plan (Free Text) Plan: Assessment Strep viridans bacteremia with no evidence of endocarditis on KADY; S/P treatment of HCAP CHF now on Primacor drip chronic pain syndrome probable arthritis of the hips and knees history of atypical pneumonia HTN dysipidemia ESRD on HD Peptic ulcer disease chronic pain syndrome small brain aneurysm Plan S/P 7 days of Azactam and Doxycycline on Daptomycin day 6 of 28 days; repeat blood cultures are negative reviewed KADY results - may be able to switch to IV Vancomycin to complete the 28 days will continue to monitor clinically
--- NOTE | 2018-01-09 14:39 | PN ---
DATE: 01/09/2018 SUBJECTIVE: The patient is currently seen completing dialysis, today is her routine day. Yesterday she had an extra dialysis for perhaps mild hypervolemia. The patient is complaining of diarrhea and would like to come off dialysis to be changed. Her initial C. difficile cultures were negative. MEDICATIONS Medication list reviewed. The patient is currently on acidophilus, Claritin, Coreg, digoxin, Dilaudid, Lac-Hydrin, Lipitor, prednisone, Reglan, Renagel, Sensipar, IV vancomycin, Xopenex, lisinopril and Zofran p.r.n. OBJECTIVE: INTAKE/OUTPUT: Intake is 170, output is 2000 mL with dialysis. VITAL SIGNS: Blood pressure is 150/67, temperature 97.9, respiratory rate 18 with a pulse of 81. HEENT: Head is normocephalic, atraumatic. Conjunctivae are pale. Sclerae are mildly icteric. NECK: Supple. No neck vein distention. CHEST: Clear to auscultation and percussion with a few scattered rhonchi. No rales or wheezing. CARDIOVASCULAR: Shows a regular rate and rhythm with MR/TR. EXTREMITIES: Show no lower extremity edema. Left upper extremity AV fistula cannulated for dialysis. LABORATORY DATA AND IMAGING DATA: CBC: White blood cell count 6.9, hemoglobin 8 with a platelet count which is now down to 28,000. Chemistry showed normal electrolytes. BUN 61 with a creatinine of 4.9. Glucose is 164. Calcium is 7.3. Bilirubin mildly elevated at 2.4, AST 42, alkaline phosphatase 592. Albumin remains low at 2.5. Microbiology: Blood cultures were positive for strep viridans from admission. Repeat blood cultures were negative. Stool for C. Diff was negative on 01/07/2018. ASSESSMENT: 1. End-stage renal disease. The patient will be maintained on three times a week dialysis. We will try and avoid extra dialysis treatments in light of the fact that she appears to be euvolemic post yesterday's ultrafiltration of 2 kg of fluid. 2. Chronic obstructive pulmonary disease with exacerbation. Unclear whether or not the patient had superimposed pneumonia. Of note, her blood cultures are positive for strep viridans. The patient remains on IV antibiotic therapy. No evidence for endocarditis from the repeat echocardiograms that were done. 3. History of anemia secondary to chronic kidney disease. Hemoglobin remains low and is currently 8 down from 10-11. 4. Thrombocytopenia, worsening. Perhaps thrombocytopenia secondary to antibiotics. Perhaps Hematology evaluation. 5. History of hypertension. Blood pressure controlled on present medical therapy. 6. History of severe cardiomyopathy with [id number] mitral regurgitation, tricuspid regurgitation with severe pulmonary hypertension. 7. History of secondary hyperparathyroidism. Last phosphorus level was down to 2.8, on binder therapy. Calcium is 7.3, corrects to normal for her low albumin level. 8. History of renal cyst, unchanged. 9. History of total right hip surgery replacement. PLAN: 1. Concern over diarrhea. We will repeat stool for C. diff. Perhaps empiric antibiotic therapy, such as, p.o. vancomycin. 2. Complete course of antibiotic therapy for her strep viridan bacteremia. No evidence for endocarditis. 3. Aranesp and iron per protocol. 4. Continue to emphasize the patient the need to limit p.o. fluids to avoid needing extra dialysis treatments. 5. Perhaps, Hematology evaluation for her thrombocytopenia. Deon Mathews MD
--- NOTE | 2018-01-09 15:46 | PN ---
DATE: 01/09/2018 SUBJECTIVE: The patient is a 57-year-old, seen and examined, very lethargic, opens eye on verbal commands, answers simple questions, eating poor. PHYSICAL EXAMINATION: VITAL SIGNS: She is afebrile, pulse 81, respirations 18, blood pressure 150/67. LUNGS: Bilateral diffusely decreased breath sounds. HEART: S1 and S2 audible. ABDOMEN: Soft and nontender. No rebound. No guarding. NEUROLOGICAL: She is sleepy, but arousable. EXTREMITIES: Bilateral legs, no edema. SKIN: She has generalized itchy rashes in the process of healing, some of them are scabbed probably secondary to . LABORATORY DATA: Sodium 137, potassium 4, chloride 103, CO2 21, BUN 61, creatinine 4.9, blood sugar of 164. Total bilirubin 2.4. ASSESSMENT: 1. Generalized weakness and lethargy. 2. Status post Streptococcus viridans bacteremia. 3. Cardiomyopathy. 4. Thrombocytopenia. 5. End-stage renal disease, on hemodialysis. 6. Chronic obstructive pulmonary disease. 7. Pulmonary hypertension. 8. Status post transesophageal echocardiogram that is unremarkable. The patient has MUGA scan done that showed ejection fraction of 31%. PLAN: So, plan is currently the patient is on Claritin, Coreg, digoxin, and prednisone to cover her for COPD. ID has discontinued her vancomycin. There, she can get with dialysis. At this point, it is hard to make a disposition plan. The patient is very lethargic, does not participate in any activity. We will order for physical therapy and make a disposition plan. TCU or subacute rehab. Shawn Gomez MD
--- NOTE | 2018-01-09 15:57 | PN ---
DATE: 01/09/2018 REASON FOR CONSULTATION AND FOLLOWUP: Rule out endocarditis, nonischemic cardiomyopathy, admitted with sepsis, status post KADY, negative for endocarditis. SUBJECTIVE: The patient is lying flat on the bed. Denies any chest pain, shortness of breath, or any palpitations. OBJECTIVE: GENERAL: Not in apparent distress. VITAL SIGNS: Temperature afebrile, heart rate 65, blood pressure 150/67. HEENT: PERRLA. Extraocular muscles intact. NECK: Supple. No carotid bruit or thyromegaly. CHEST: Clear to auscultation. HEART: S1 and S2, regular. ABDOMEN: Soft. EXTREMITIES: Clubbing and cyanosis negative. LABORATORY DATA: Blood workup as follows: WBC 11.1, hemoglobin 9.5, hematocrit 31.4, and platelet count 53. Chemistry shows sodium 139, potassium 3.8, chloride 96, carbon dioxide 30, anion gap of 18. BUN 49, creatinine is 4.4. Procalcitonin level 12.73 on admission. IMPRESSION: Sepsis, Gram-positive coccemia, Gram-positive sepsis, status post transesophageal echocardiography, negative for endocarditis, nonischemic cardiomyopathy, ejection fraction 25%, [id number] mitral regurgitation, severe tricuspid regurgitation, right ventricular systolic pressure of 74 consistent with severe pulmonary hypertension, off Primacor, endstage renal disease on dialysis, status post cardiac catheterization twice, normal coronaries, pulmonary hypertension. RECOMMENDATIONS: Continue antibiotics as per ID. We will discontinue telemetry. Continue heart failure treatment including carvedilol, digoxin, and lisinopril as the blood pressure is tolerated. Reevaluate LV function in 3 to 6 months. If EF remains below 25%, consider AICD, although it will be high risk for endocarditis itself because of the foreign body, but we will reassess LV function in 3 to 6 months. We will discuss with you. Thank you Dr. Gomez for providing us the opportunity in taking care of the patient, Jacqui Kraus. oP Mccullough MD
[2018-01-10] MEDS: Levalbuterol 1.25 MG/3 ML Inhal Soln UD IH SCH ×4 (03:08→19:56)
--- NOTE | 2018-01-10 07:06 | CP.PCM.PN ---
Subjective - Date & Time of Evaluation Date of Evaluation: 01/10/18 Time of Evaluation: 06:20 - Subjective Subjective: Awake, lying in bed ,no distress,feeling better Reason for consultation and follow up:Cardiac evaluation for shortness of breath , cardiomyopathy, pulmonary hypertension, Seen and examined by me and Dr. Mccullough Objective - Vital Signs/Intake and Output Vital Signs (last 24 hours): Temp Pulse Resp BP Pulse Ox 98.4 F 80 20 147/70 98 01/09/18 18:00 01/09/18 18:00 01/09/18 18:00 01/09/18 18:00 01/09/18 18:00 Intake and Output: 01/10/18 01/10/18 06:59 18:59 Intake Total 600 Output Total 0 Balance 600 - Medications Medications: Current Medications Atorvastatin Calcium (Lipitor) 80 mg PO DIN [facility] Last Admin: 01/09/18 17:13 Dose: 80 mg Carvedilol (Coreg) 3.125 mg PO BID [facility] Last Admin: 01/09/18 17:12 Dose: 3.125 mg Cinacalcet (Sensipar) 30 mg PO DAILY [facility] Last Admin: 01/09/18 09:25 Dose: 30 mg Digoxin (Digoxin) 0.125 mg PO [facility] Last Admin: 01/08/18 17:54 Dose: 0.125 mg Hydromorphone HCl (Dilaudid) 1 mg PO Q4H PRN PRN Reason: Pain, moderate (4-7) Last Admin: 01/10/18 05:56 Dose: 1 mg Vancomycin HCl (Vancomycin 1gm) 1 gm in 250 mls @ 167 mls/hr IVPB [facility] PRN Reason: Protocol Lactic Acid (Lac-Hydrin 12% Cream (140 G)) 0 ea TOP DAILY [facility] Last Admin: 01/08/18 17:54 Dose: 1 applic Lactobacillus Acidophilus (Bacid Acidophilus) 1 cap PO BID [facility] Last Admin: 01/09/18 17:11 Dose: 1 cap Levalbuterol HCl (Xopenex) 1.25 mg IH 0200,0800,1400,2000 [facility] Last Admin: 01/10/18 03:08 Dose: 1.25 mg Lisinopril (Zestril) 2.5 mg PO DAILY [facility] Last Admin: 01/09/18 10:00 Dose: Not Given Loratadine (Claritin) 10 mg PO DAILY [facility] Last Admin: 01/09/18 09:25 Dose: 10 mg Metoclopramide HCl (Reglan) 5 mg IVP [facility] PRN PRN Reason: Nausea/Vomiting Last Admin: 01/06/18 17:11 Dose: 5 mg Ondansetron HCl (Zofran Inj) 4 mg IVP Q6H PRN PRN Reason: Nausea/Vomiting Last Admin: 01/06/18 12:59 Dose: 4 mg Prednisone (Prednisone Tab) 10 mg PO BID [facility] Last Admin: 01/09/18 17:13 Dose: 10 mg Sevelamer HCl (Renagel) 800 mg PO DAILY [facility] Last Admin: 01/09/18 09:25 Dose: 800 mg - Labs Labs: 01/09/18 11:10 01/09/18 11:10 PT 14.8 SECONDS (9.4-12.5) H 12/29/17 20:10 INR 1.29 (0.93-1.08) H 12/29/17 20:10 APTT 28.3 Seconds (25.1-36.5) 12/29/17 20:10 - Constitutional Appears: No Acute Distress - Head Exam Head Exam: NORMOCEPHALIC - Eye Exam Eye Exam: Normal appearance - ENT Exam ENT Exam: Mucous Membranes Moist - Respiratory Exam Respiratory Exam: Decreased Breath Sounds, NORMAL BREATHING PATTERN - Cardiovascular Exam Cardiovascular Exam: +S1, +S2 - GI/Abdominal Exam GI & Abdominal Exam: Soft, Normal Bowel Sounds - Extremities Exam Extremities Exam: Normal Capillary Refill - Neurological Exam Neurological Exam: Alert, Awake, Oriented x3 - Psychiatric Exam Psychiatric exam: Normal Affect, Normal Mood - Skin Skin Exam: Intact, Normal Color, Warm Assessment and Plan - Assessment and Plan (Free Text) Assessment: A 57 year old female who came in to the ER due to shortness of breath, possibly pneumonia. History of cardiomyopathy,COPD, asthmatic bronchitis, hypertension, hyperlipidemia, GI bleed, ESRD on hemodialysis (Monday, , Monday). current smoker,cholecystectomy,pericardial window for effusion, AV shunt,right hip surgery, 2017-Cardiac cath-normal coronaries. Admitted in 2017 with similar symptoms and Echo showed pulmonary hypertension and was treated with primacor with improvement, ECHO done showed LVEF 55%, Moderate to severe MR/TR, Severe pulmonary hypertension, severely impaired systolic function, No evidence of endocarditis. 01/04/18MUGA scan done -LVEF 31%, Moderate to severe LV dysfunction with diffuse hypokinesis, Normal RV function 01/08/18 KADY done, Severe MR/TR, LVEF 25 %, no evidence of endocarditis. Plan: KADY done, Severe MR/TR, LVEF 25 %, no evidence of endocarditis. Reevaluate LV function in 3-6 months If still LVEF 25%, will consider AICD Improved clinically with primacor and digoxin Controlled heart rate and blood pressure On Coreg 3.125 mg BID,Zestril 2.5 mg daily,Digoxin 0.125 mg 3x a week (MWF) Continue antibiotics per ID Continue all other medications Continue current treatment Will follow up Plan and treatment discussed with Dr. Mccullough
[2018-01-10] MEDS ORDERED: Vancomycin 1gm in NS 250ml 1 GM/250 ML BAG IVPB SCH (10:00)
[2018-01-10] MEDS: Lactobacillus Acidophilus 500 MU Cap PO SCH ×2 (10:41→18:22)
[2018-01-10] MEDS: Digoxin 125 mcg (0.125 mg) Tab PO SCH (10:42)
[2018-01-10] MEDS: Ammonium Lactate 12% Cream (140 g) TOP SCH (12:10)
[2018-01-10] MEDS: Dextrose 5%/0.45% NS 1,000 ML IV SCH (13:05)
--- NOTE | 2018-01-10 14:20 | PQF MALNUT ---
This form is a permanent part of the medical record Clarification of your documentation is requested to better reflect the severity of illness and intensity of treatment of your patient. Indicators present Dietary documented pt to be high risk nutritionally. BMI- 17.7, T-protein- 5.0, Alb- 2.5. Supplement of Ensure 3 x day. Please document if you are treating malnutrition, include type & acuity in your documentation [] Cachexia (due to severe malnutrition) [x] Albumin < 2.8 [] Decreased Pre-albumin [x] Dietary Consult [x] Provider documentation reflects BMI of: []_ []x Low serum proteins [x] Documented weight loss [] Inability to consume adequate caloric intake []x Anorexic [] Other: [] Location in the medical record that reflects the above clinical findings: [] Dietary eval Treatment Provided: []Ensure 3 x day PHYSICIAN'S RESPONSE Based on your medical judgment of the clinical indicators outlined above, are you treating this patient for a known or suspected: Type of Malnutrition Severity [] Mild [x] Moderate [] Severe ]x Protein calorie [] Mild [] Moderate [] severe [] Other, please indicate: []_ [] If Unable to Determine, please check the box, sign and date. Present On Admission (POA) Indicator: [x] Present at the time of admission [] Not present at the time of admission [] Clinically Undetermined In responding to this query, please exercise your independent professional judgment. The fact that a question is asked does not imply that any particular answer is desired or expected. Thank you for your clarification on this documentation. If you have any questions please call:[ ][phone] * Thank you, [ ]Kristine Aquino RN CDS cargo inspector Malnutrition Malnutrition results from an imbalance between the body's intake of nutrients and the body's use of nutrients to fuel energy expenditure. Malnutrition may be described as mild, moderate or severe. There are variations in clinical indicators, lab values and risk factors with each type and degree. When reviewing the nutritional status of the client, the entire clinical picture should be assessed and taken into consideration rather than a focus on a single laboratory value. Mild Malnutrition: patient's weight is noted at 85-95% of normal body weight; BMI 18-18.9; serum albumin 3.0-3.4; total lymphocyte count [id number]. Moderate Malnutrition: patient's weight is noted at 75-85% of normal body weight ; BMI 16-17.9; serum albumin 2.4-3.0; total lymphocyte count 800-1500. Severe Malnutrition: patient's weight is noted at <75% of normal body weight, BMI <16, serum albumin <2.4, total lymphocyte count <800, abnormally low VLDL/ LDL levels, creatinine <0.6, BUN <8, cholesterol <160. Other clinical indicators include: loss of subq fat, muscle wasting of the extremities, skin lesions, decubitus ulcers, hair loss, lethargy, constipation, decreased pulse/ respiratory rates, relative hypotension, hepatomegaly d/t fat infiltration, poor wound healing.~~~~~~ Risk: poor intake d/t food avoidance or NPO status for >7 days, protracted nutritional losses from malabsorption states, hypermetabolic state such as sepsis, prolonged fever, extensive trauma or pineda, alcohol/drug abuse, advanced age, CKD, trouble chewing or swallowing, some medications, depression/ social isolation, special diets such as low protein Treatment: dietary consultation, protein-calorie dietary supplementation, daily weights, PEG tube, psychiatric consultation, appetite stimulants (Megace). [employer] Principles of Internal Medicine, 17th edition, chapters 9, 72 and 234. The [employer] Nutritional Support Core Curriculum, 2007 MTDD
--- NOTE | 2018-01-10 15:13 | PN ---
DATE: 01/10/2018 SUBJECTIVE: The patient is 57 years old, seen and examined, looks very weak, tired and had several bowel movements since morning, feels drained and dehydrated. PHYSICAL EXAMINATION: VITAL SIGNS: She is afebrile, pulse 80, respirations 18, blood pressure 148/60. HEENT: Has dry oral mucosa. LUNGS: Bilateral fair airflow. No rhonchi or crackle. HEART: S1 and S2 audible. ABDOMEN: Soft, nontender. No rebound, no guarding. NEUROLOGIC: The patient is awake, alert, oriented, able to communicate. LABORATORY DATA: WBC 6.9, hemoglobin 8, hematocrit 26, platelet of 228. Chemistry: Sodium 137, potassium 4, chloride 103, CO2 21, BUN 61, creatinine 4.9, blood sugar of 164. ASSESSMENT: 1. Intractable diarrhea, stool for Clostridium difficile is negative. 2. Persistent Streptococcus aureus, viridans. KADY and echo is negative for endocarditis. 3. Pancytopenia, probably drug related. PLAN: She is off of daptomycin. Currently, she is getting vancomycin. We will taper down her steroid. I will just give her one dose of Imodium. We will repeat another test for C. diff. Currently, the patient is very weak, lethargic. She is not participating in therapy to asses for her disposition plan. Start her on 40 mL of D5W. Shawn Gomez MD
--- NOTE | 2018-01-10 16:06 | CP.PCM.PN ---
<Jennifer Barron - Last Filed: 01/10/18 16:08> Subjective - Date & Time of Evaluation Date of Evaluation: 01/10/18 Time of Evaluation: 10:45 - Subjective Subjective: Seen and examined at the bedside earlier today, chart review. Patient reporting to have a had at least 7 episodes of loose dark bowel movement and large amount as per patient and nursing staff. Patient only had a few crackers and sip of juice. He does report abdominal pain, some nausea but no vomiting. Stool for C. difficile sent last night, it was negative. Objective - Vital Signs/Intake and Output Vital Signs (last 24 hours): Temp Pulse Resp BP Pulse Ox 98.0 F 80 18 148/60 97 01/10/18 06:00 01/10/18 10:41 01/10/18 06:00 01/10/18 10:41 01/10/18 06:00 Intake and Output: 01/10/18 01/10/18 06:59 18:59 Intake Total 600 Output Total 0 Balance 600 - Medications Medications: Current Medications Atorvastatin Calcium (Lipitor) 80 mg PO DIN [facility] Last Admin: 01/09/18 17:13 Dose: 80 mg Carvedilol (Coreg) 3.125 mg PO BID [facility] Last Admin: 01/10/18 10:41 Dose: 3.125 mg Cinacalcet (Sensipar) 30 mg PO DAILY [facility] Last Admin: 01/10/18 10:41 Dose: 30 mg Digoxin (Digoxin) 0.125 mg PO MWF [facility] Last Admin: 01/10/18 10:42 Dose: 0.125 mg Hydromorphone HCl (Dilaudid) 1 mg PO Q4H PRN PRN Reason: Pain, moderate (4-7) Last Admin: 01/10/18 13:05 Dose: 1 mg Vancomycin HCl (Vancomycin 1gm) 1 gm in 250 mls @ 167 mls/hr IVPB TTS [facility] PRN Reason: Protocol Dextrose/Sodium Chloride (Dextrose 5%/0.45% Ns 1000 Ml) 1,000 mls @ 50 mls/hr IV .Q20H [facility] Last Admin: 01/10/18 13:05 Dose: 50 mls/hr Lactic Acid (Lac-Hydrin 12% Cream (140 G)) 0 ea TOP DAILY [facility] Last Admin: 01/10/18 12:10 Dose: Not Given Lactobacillus Acidophilus (Bacid Acidophilus) 1 cap PO BID [facility] Last Admin: 01/10/18 10:41 Dose: 1 cap Levalbuterol HCl (Xopenex) 1.25 mg IH 0200,0800,1400,2000 [facility] Last Admin: 01/10/18 07:34 Dose: 1.25 mg Lisinopril (Zestril) 2.5 mg PO DAILY [facility] Last Admin: 01/10/18 10:41 Dose: 2.5 mg Loratadine (Claritin) 10 mg PO DAILY [facility] Last Admin: 01/10/18 10:42 Dose: 10 mg Metoclopramide HCl (Reglan) 5 mg IVP [facility] PRN PRN Reason: Nausea/Vomiting Last Admin: 01/06/18 17:11 Dose: 5 mg Ondansetron HCl (Zofran Inj) 4 mg IVP Q6H PRN PRN Reason: Nausea/Vomiting Last Admin: 01/06/18 12:59 Dose: 4 mg Prednisone (Prednisone Tab) 10 mg PO BID [facility] Last Admin: 01/10/18 10:41 Dose: 10 mg Sevelamer HCl (Renagel) 800 mg PO DAILY [facility] Last Admin: 01/10/18 10:41 Dose: 800 mg - Labs Labs: 01/09/18 11:10 01/09/18 11:10 PT 14.8 SECONDS (9.4-12.5) H 12/29/17 20:10 INR 1.29 (0.93-1.08) H 12/29/17 20:10 APTT 28.3 Seconds (25.1-36.5) 12/29/17 20:10 - Constitutional Appears: Cachectic - Eye Exam Eye Exam: Normal appearance. absent: Scleral icterus - ENT Exam ENT Exam: Mucous Membranes Moist - Neck Exam Neck Exam: Normal Inspection - Respiratory Exam Respiratory Exam: NORMAL BREATHING PATTERN. absent: Respiratory Distress - Cardiovascular Exam Cardiovascular Exam: +S1, +S2 - GI/Abdominal Exam GI & Abdominal Exam: Soft, Tenderness, Normal Bowel Sounds - Extremities Exam Extremities Exam: absent: Calf Tenderness, Pedal Edema - Neurological Exam Neurological Exam: Alert, Awake, Oriented x3 - Skin Skin Exam: Dry, Warm Assessment and Plan - Assessment and Plan (Free Text) Assessment: Assessment: Bacteremia (S. Viridans) Diarrhea , cdiff negative X2, ESRD on HD Dilated cardiomyopathy (EF 31%) Biventricular failure w/ pulmonary HTN Anemia (chronic) H/O mildly elevated Chromogranin A Thrombocytopenia PLAN: on puree, encouraged clear Ensure Trend LFT on Reglan, recommend short course monitor H/H and for overt GI bleeding on IV antibiotics vancomycin as per ID on Probiotics on Prednisone Off PPI/H2B, low platelets Seen and discussed with Dr. Rosado. <Jesus Manuel Rosado V - Last Filed: 01/16/18 23:43> Objective - Vital Signs/Intake and Output Vital Signs (last 24 hours): Temp Pulse Resp BP Pulse Ox 98.2 F 91 H 18 146/65 92 L 01/10/18 18:00 01/10/18 18:22 01/10/18 18:00 01/10/18 18:22 01/10/18 18:00 Intake and Output: 01/10/18 01/11/18 18:59 06:59 Intake Total 180 600 Output Total 0 Balance 180 600 - Medications Medications: Current Medications Atorvastatin Calcium (Lipitor) 80 mg PO DIN [facility] Last Admin: 01/10/18 18:22 Dose: 80 mg Carvedilol (Coreg) 3.125 mg PO BID [facility] Last Admin: 01/10/18 18:22 Dose: 3.125 mg Cholestyramine Resin (Questran) 2 gm PO BID [facility] Last Admin: 01/10/18 18:21 Dose: 2 gm Cinacalcet (Sensipar) 30 mg PO DAILY [facility] Last Admin: 01/10/18 10:41 Dose: 30 mg Digoxin (Digoxin) 0.125 mg PO MWF [facility] Last Admin: 01/10/18 10:42 Dose: 0.125 mg Hydromorphone HCl (Dilaudid) 1 mg PO Q4H PRN PRN Reason: Pain, moderate (4-7) Last Admin: 01/10/18 13:05 Dose: 1 mg Vancomycin HCl (Vancomycin 1gm) 1 gm in 250 mls @ 167 mls/hr IVPB TTS [facility] PRN Reason: Protocol Dextrose/Sodium Chloride (Dextrose 5%/0.45% Ns 1000 Ml) 1,000 mls @ 50 mls/hr IV .Q20H [facility] Last Admin: 01/10/18 13:05 Dose: 50 mls/hr Lactic Acid (Lac-Hydrin 12% Cream (140 G)) 0 ea TOP DAILY [facility] Last Admin: 01/10/18 12:10 Dose: Not Given Lactobacillus Acidophilus (Bacid Acidophilus) 1 cap PO BID [facility] Last Admin: 01/10/18 18:22 Dose: 1 cap Levalbuterol HCl (Xopenex) 1.25 mg IH 0200,0800,1400,2000 [facility] Last Admin: 01/11/18 02:56 Dose: 1.25 mg Lisinopril (Zestril) 2.5 mg PO DAILY [facility] Last Admin: 01/10/18 10:41 Dose: 2.5 mg Loratadine (Claritin) 10 mg PO DAILY [facility] Last Admin: 01/10/18 10:42 Dose: 10 mg Metoclopramide HCl (Reglan) 5 mg IVP [facility] PRN PRN Reason: Nausea/Vomiting Last Admin: 01/06/18 17:11 Dose: 5 mg Ondansetron HCl (Zofran Inj) 4 mg IVP Q6H PRN PRN Reason: Nausea/Vomiting Last Admin: 01/06/18 12:59 Dose: 4 mg Prednisone (Prednisone Tab) 10 mg PO BID [facility] Last Admin: 01/10/18 18:22 Dose: 10 mg Sevelamer HCl (Renagel) 800 mg PO DAILY [facility] Last Admin: 01/10/18 10:41 Dose: 800 mg - Labs Labs: 01/09/18 11:10 01/09/18 11:10 PT 14.8 SECONDS (9.4-12.5) H 12/29/17 20:10 INR 1.29 (0.93-1.08) H 12/29/17 20:10 APTT 28.3 Seconds (25.1-36.5) 12/29/17 20:10 Attending/Attestation - Attestation I have personally seen and examined this patient.: Yes I have fully participated in the care of the patient.: Yes I have reviewed all pertinent clinical information, including history, physical exam and plan: Yes Notes (Text): This is an addendum to GI progress report dictated by Jennifer Barron APN.The patient was seen and examined earlier. Medical records, lab studies, imagings were reviewed. Last 24 hours events reviewed. Agreed with the above treatment plan as outlined in Jennifer Barron,DEPUTY TREASURER's notes the with the addition of the following Continue antibiotics as pe Abdomen soft. Mild Tenderness on the right side of the abdomen chronic continue antibiotics as per iD Only short course of [place] 01/11/18 06:21 01/16/18 23:40
--- NOTE | 2018-01-10 16:24 | PN ---
DATE: 01/10/2018 SUBJECTIVE: The patient is seen lying in bed. She is awake, she is alert. She complains of being very weak. She reports that she had seven episodes of watery loose stools. She complains of diffuse abdominal pain, more on the right side. She denies any fever. She denies any chills. PHYSICAL EXAMINATION: GENERAL: Middle-aged lady lying in bed. VITAL SIGNS: Blood pressure 148/60, heart rate 80, respiratory rate 18, temperature 98. HEENT: Normocephalic, atraumatic, positive pallor. NECK: Supple, no JVD. LUNGS: Bilateral equal entry, bilateral equal expansion, no rales. CARDIAC: S1 and S2, regular rate and rhythm, no murmur, no rub. ABDOMEN: Soft, nondistended, nontender, bowel sounds present, tenderness in the right side. EXTREMITIES: No lower extremity edema. LABORATORY DATA: WBC 6.9, hemoglobin 8, hematocrit 26, platelets 28. Sodium 137, potassium 4, chloride 103, CO2 of 21, BUN 61, creatinine 4.9, glucose 164, calcium 7.3, albumin 2.5, corrected calcium 8.3, phosphorus 2.8, magnesium 1.9, total bilirubin 2.4. Vanco trough level is 40. Blood cultures from 01/04/2018, no growth so far. C. diff toxin negative. CURRENT MEDICATIONS: Lactobacillus, Claritin, Coreg 3.125 b.i.d., D5 half-normal saline at 50, digoxin 0.125, Dilaudid, Lipitor, prednisone 10 b.i.d., Reglan, Renagel, Sensipar, Xopenex, Zestril, Zofran, Imodium, and vancomycin 1 g IV piggyback Monday, Monday, and Monday. ASSESSMENT: 1. Severe cardiomyopathy, decreased ejection fraction, status post KADY showing decreased ejection fraction of 25% with no evidence of endocarditis. 2. Streptococcus viridans bacteremia. 3. Severe anemia. 4. Progressive thrombocytopenia. 5. Profuse diarrhea secondary to antibiotics? 6. End-stage renal disease. 7. Failure to thrive. PLAN: 1. Stable dialysis yesterday. 2. Recommend hematology evaluation for progressive thrombocytopenia. 3. Continue antibiotics for streptococcal bacteremia. 4. Continue ANSHUL inhibitor, beta-edith for cardiomyopathy. 5. Hold cinacalcet because of hypocalcemia. Mansi Rose MD
--- NOTE | 2018-01-10 16:54 | CP.PCM.PN ---
Subjective - Date & Time of Evaluation Date of Evaluation: 01/10/18 Time of Evaluation: 11:35 - Subjective Subjective: No fevers, not in distress. Objective - Vital Signs/Intake and Output Vital Signs (last 24 hours): Temp Pulse Resp BP Pulse Ox 98.0 F 80 18 148/60 97 01/10/18 06:00 01/10/18 10:41 01/10/18 06:00 01/10/18 10:41 01/10/18 06:00 Intake and Output: 01/10/18 01/10/18 06:59 18:59 Intake Total 600 Output Total 0 Balance 600 - Medications Medications: Current Medications Atorvastatin Calcium (Lipitor) 80 mg PO DIN [facility] Last Admin: 01/09/18 17:13 Dose: 80 mg Carvedilol (Coreg) 3.125 mg PO BID [facility] Last Admin: 01/10/18 10:41 Dose: 3.125 mg Cinacalcet (Sensipar) 30 mg PO DAILY [facility] Last Admin: 01/10/18 10:41 Dose: 30 mg Digoxin (Digoxin) 0.125 mg PO F [facility] Last Admin: 01/10/18 10:42 Dose: 0.125 mg Hydromorphone HCl (Dilaudid) 1 mg PO Q4H PRN PRN Reason: Pain, moderate (4-7) Last Admin: 01/10/18 05:56 Dose: 1 mg Vancomycin HCl (Vancomycin 1gm) 1 gm in 250 mls @ 167 mls/hr [place]PB [facility] Reason: Protocol Last Admin: 01/10/18 10:42 Dose: 167 mls/hr Lactic Acid (Lac-Hydrin 12% Cream (140 G)) 0 ea TOP DAILY [facility] Last Admin: 01/08/18 17:54 Dose: 1 applic Lactobacillus Acidophilus (Bacid Acidophilus) 1 cap PO BID [facility] Last Admin: 01/10/18 10:41 Dose: 1 cap Levalbuterol HCl (Xopenex) 1.25 mg IH 0200,0800,1400,2000 [facility] Last Admin: 01/10/18 07:34 Dose: 1.25 mg Lisinopril (Zestril) 2.5 mg PO DAILY [facility] Last Admin: 01/10/18 10:41 Dose: 2.5 mg Loratadine (Claritin) 10 mg PO DAILY [facility] Last Admin: 01/10/18 10:42 Dose: 10 mg Metoclopramide HCl (Reglan) 5 mg IVP [facility] PRN PRN Reason: Nausea/Vomiting Last Admin: 01/06/18 17:11 Dose: 5 mg Ondansetron HCl (Zofran Inj) 4 mg IVP Q6H PRN PRN Reason: Nausea/Vomiting Last Admin: 01/06/18 12:59 Dose: 4 mg Prednisone (Prednisone Tab) 10 mg PO BID [facility] Last Admin: 01/10/18 10:41 Dose: 10 mg Sevelamer HCl (Renagel) 800 mg PO DAILY [facility] Last Admin: 01/10/18 10:41 Dose: 800 mg - Labs Labs: 01/09/18 11:10 01/09/18 11:10 PT 14.8 SECONDS (9.4-12.5) H 12/29/17 20:10 INR 1.29 (0.93-1.08) H 12/29/17 20:10 APTT 28.3 Seconds (25.1-36.5) 12/29/17 20:10 - Constitutional Appears: Chronically Ill - Head Exam Head Exam: NORMAL INSPECTION - Respiratory Exam Respiratory Exam: Decreased Breath Sounds - Cardiovascular Exam Cardiovascular Exam: +S1, +S2 - GI/Abdominal Exam GI & Abdominal Exam: Soft. absent: Tenderness Assessment and Plan - Assessment and Plan (Free Text) Plan: Assessment Strep viridans bacteremia with no evidence of endocarditis on KADY; S/P treatment of HCAP CHF now on Primacor drip chronic pain syndrome probable arthritis of the hips and knees history of atypical pneumonia HTN dysipidemia ESRD on HD Peptic ulcer disease chronic pain syndrome small brain aneurysm Plan S/P 7 days of Azactam and Doxycycline on Vancomycin day 7 of 28 days; repeat blood cultures are negative reviewed KADY results - will switch to T-Th-S since that is her dialysis session days will continue to monitor clinically
[2018-01-10] MEDS ORDERED: Cholestyramine 4 gm/Pkt UD PO SCH (17:30)
[2018-01-10] MEDS: Cholestyramine 4 gm/Pkt UD PO SCH (18:21)
[2018-01-11] MEDS: Levalbuterol 1.25 MG/3 ML Inhal Soln UD IH SCH ×4 (02:56→20:00)
[2018-01-11 07:51] LABS: EOS % 0.6 % (1.5-5.0); GRAN # 4.08 (1.4-6.5); GRAN % 80.2 % (50.0-68.0); HEMOGLOBIN 7.8 g/dL (12.0-16.0); LYMPH # 0.5 (1.2-3.4); MEAN CELL VOLUME 81.1 fl (80.0-105.0); MEAN CORPUSCULAR HEMOGLOBIN 24.5 pg (25.0-35.0); MEAN CORPUSCULAR HGB CONC 30.2 g/dl (31.0-37.0); MONO # 0.5 (0.1-0.6); MONO % 9.2 % (1.0-6.0); RBC 3.18 10^6/uL (3.5-6.1); RED CELL DISTRIBUTION WIDTH 18.2 % (11.5-14.5); WHITE BLOOD COUNT 5.1 10^3/ul (4.5-11.0)
[2018-01-11 07:59] LABS: PLATELET COUNT 38 10^3/uL (120.0-450.0)
[2018-01-11 08:01] LABS: CALCIUM 7.5 mg/dL (8.4-10.5)
[2018-01-11] MEDS ORDERED: Darbepoetin Alfa 100 mcg/ml Inj SC ONE (08:07)
--- NOTE | 2018-01-11 08:08 | CP.PCM.PN ---
Subjective - Date & Time of Evaluation Date of Evaluation: 01/11/18 Time of Evaluation: 06:30 - Subjective Subjective: Awake, lying in bed ,no distress,for hemodialysis today Reason for consultation and follow up:Cardiac evaluation for shortness of breath , cardiomyopathy, pulmonary hypertension, Seen and examined by me and Dr. Mccullough Objective - Vital Signs/Intake and Output Vital Signs (last 24 hours): Temp Pulse Resp BP Pulse Ox 98.6 F 82 18 138/73 97 01/11/18 06:00 01/11/18 06:00 01/11/18 06:00 01/11/18 06:00 01/11/18 06:00 Intake and Output: 01/11/18 01/11/18 06:59 18:59 Intake Total 600 Balance 600 - Medications Medications: Current Medications Atorvastatin Calcium (Lipitor) 80 mg PO DIN [facility] Last Admin: 01/10/18 18:22 Dose: 80 mg Carvedilol (Coreg) 3.125 mg PO BID [facility] Last Admin: 01/10/18 18:22 Dose: 3.125 mg Cholestyramine Resin (Questran) 2 gm PO BID [facility] Last Admin: 01/10/18 18:21 Dose: 2 gm Cinacalcet (Sensipar) 30 mg PO DAILY [facility] Last Admin: 01/10/18 10:41 Dose: 30 mg Digoxin (Digoxin) 0.125 mg PO MWF [facility] Last Admin: 01/10/18 10:42 Dose: 0.125 mg Hydromorphone HCl (Dilaudid) 1 mg PO Q4H PRN PRN Reason: Pain, moderate (4-7) Last Admin: 01/10/18 13:05 Dose: 1 mg Vancomycin HCl (Vancomycin 1gm) 1 gm in 250 mls @ 167 mls/hr IVPB TTS [facility]PL[facility] PRN Reason: Protocol Dextrose/Sodium Chloride (Dextrose 5%/0.45% Ns 1000 Ml) 1,000 mls @ 50 mls/hr IV .Q20H REPLACED BY [facility] Last Admin: 01/10/18 13:05 Dose: 50 mls/hr Lactic Acid (Lac-Hydrin 12% Cream (140 G)) 0 ea TOP DAILY [facility] Last Admin: 01/10/18 12:10 Dose: Not Given Lactobacillus Acidophilus (Bacid Acidophilus) 1 cap PO BID [facility] Last Admin: 01/10/18 18:22 Dose: 1 cap Levalbuterol HCl (Xopenex) 1.25 mg IH 0200,0800,1400,2000 [facility] Last Admin: 01/11/18 02:56 Dose: 1.25 mg Lisinopril (Zestril) 2.5 mg PO DAILY [facility] Last Admin: 01/10/18 10:41 Dose: 2.5 mg Loratadine (Claritin) 10 mg PO DAILY [facility] Last Admin: 01/10/18 10:42 Dose: 10 mg Metoclopramide HCl (Reglan) 5 mg IVP [facility] PRN PRN Reason: Nausea/Vomiting Last Admin: 01/06/18 17:11 Dose: 5 mg Ondansetron HCl (Zofran Inj) 4 mg IVP Q6H PRN PRN Reason: Nausea/Vomiting Last Admin: 01/06/18 12:59 Dose: 4 mg Prednisone (Prednisone Tab) 10 mg PO BID [facility] Last Admin: 01/10/18 18:22 Dose: 10 mg Sevelamer HCl (Renagel) 800 mg PO DAILY [facility] Last Admin: 01/10/18 10:41 Dose: 800 mg - Labs Labs: 01/11/18 07:05 01/11/18 07:05 PT 14.8 SECONDS (9.4-12.5) H 12/29/17 20:10 INR 1.29 (0.93-1.08) H 12/29/17 20:10 APTT 28.3 Seconds (25.1-36.5) 12/29/17 20:10 - Constitutional Appears: No Acute Distress - Head Exam Head Exam: NORMOCEPHALIC - Eye Exam Eye Exam: Normal appearance - ENT Exam ENT Exam: Mucous Membranes Moist - Respiratory Exam Respiratory Exam: Decreased Breath Sounds, NORMAL BREATHING PATTERN - Cardiovascular Exam Cardiovascular Exam: +S1, +S2 - GI/Abdominal Exam GI & Abdominal Exam: Soft, Normal Bowel Sounds - Exam Additional comments: ESRD, hemodialysis (TThs) - Extremities Exam Extremities Exam: Normal Capillary Refill Additional comments: left arm AV shunt postive bruit and thrill - Neurological Exam Neurological Exam: Alert, Awake, Oriented x3 - Skin Skin Exam: Intact, Normal Color, Warm Assessment and Plan - Assessment and Plan (Free Text) Assessment: A 57 year old female who came in to the ER due to shortness of breath, possibly pneumonia. History of cardiomyopathy,COPD, asthmatic bronchitis, hypertension, hyperlipidemia, GI bleed, ESRD on hemodialysis (Monday, , Monday). current smoker,cholecystectomy,pericardial window for effusion, AV shunt,right hip surgery, 2017-Cardiac cath-normal coronaries. Admitted in 2017 with similar symptoms and Echo showed pulmonary hypertension and was treated with primacor with improvement, ECHO done showed LVEF 55%, Moderate to severe MR/TR, Severe pulmonary hypertension, severely impaired systolic function, No evidence of endocarditis. 01/04/18MUGA scan done -LVEF 31%, Moderate to severe LV dysfunction with diffuse hypokinesis, Normal RV function 01/08/18 KADY done, Severe MR/TR, LVEF 25 %, no evidence of endocarditis.Reevaluate LV function in 3-6 months Plan: Denies shortness of breath For hemodialysis today Controlled heart rate and blood pressure On Coreg 3.125 mg BID,Zestril 2.5 mg daily,Digoxin 0.125 mg 3x a week (MWF) Low platelets, PPI discontinued Episodes of loose bowel movement yesterday, sent for C- diff- negative Encouraged fluid intake Continue antibiotics per ID Continue all other medications Continue current treatment Will follow up Plan and treatment discussed with Dr. Mccullough
--- NOTE | 2018-01-11 08:49 | CON ---
DATE: 01/11/2018 CONSULT REQUESTED BY: Dr. Gomez. REASON FOR CONSULTATION: Thrombocytopenia, anemia. HISTORY OF PRESENT ILLNESS: Ms. Kraus is a 57-year-old female admitted to the hospital with COPD exacerbation. She has end-stage renal disease, currently on hemodialysis. Hemoglobin declined to 7 g/dL. Platelet count 38,000. On admission, the platelet count was 99,000. No overt bleeding. She has history of GI bleeding in the past. CAT scan of the abdomen and pelvis showed mild ascites. CAT scan of the chest showed ground glass appearance, both lungs, likely fluid overload. REVIEW OF SYSTEMS: As per HPI. Positive for shortness of breath, decreased appetite. No fever. No chills. No rigors. No nausea. No vomiting. No bleeding from any site. Rest of 12-point review of systems reviewed negative. PAST MEDICAL HISTORY: End-stage renal disease, on hemodialysis; pulmonary hypertension; cardiac cirrhosis; cardiomyopathy; peptic ulcer disease; history of GI bleed secondary to AVM; chronic anemia. ALLERGIES: MULTIPLE ALLERGIES LISTED IN MAR. HOME MEDICATIONS: Dilaudid, Sensipar, atorvastatin, prednisone, Renagel, metoprolol, Claritin. SOCIAL HISTORY: Lives with the boyfriend. PERSONAL HISTORY: Active smoker. Smokes about 1 pack a day. FAMILY HISTORY: Not contributory. PHYSICAL EXAMINATION: GENERAL: Alert, oriented, communicative, mild respiratory distress. VITAL SIGNS: Temperature 98.7, heart rate is 88 per minute, respiratory rate 18 per minute, blood pressure /50. HEENT: Pallor positive. NECK: No lymphadenopathy. CHEST: Air entry present and equal bilateral. Occasional crepitations at bases. CARDIOVASCULAR: S1, S2 normal. No murmur. No gallop. ABDOMEN: Soft, nontender. No guarding. No rigidity. NEUROLOGIC: Awake, alert, oriented. No focal sensorimotor deficits. SPINE: Nontender. LABORATORY DATA: White count 50,000, hemoglobin 7.8, hematocrit 25.8, platelet count 38,000. Sodium 134, potassium 4.4, creatinine 4.6, calcium 7.4. CURRENT MEDICATIONS: Reviewed. ASSESSMENT: 1. Chronic anemia. 2. Thrombocytopenia. 3. End-stage renal disease, on hemodialysis. 4. Ascites. 5. History of gastrointestinal bleed. PLAN: 1. We will do the workup for anemia, iron studies, B12, folate level. One dose of Aranesp 100 mcg subcutaneous to be given. 2. Thrombocytopenia. Platelet count 38,000. We will hold platelet transfusion for now unless platelet count decline below 20,000. HIT assay will be sent. Antiplatelet antibodies will be sent. We will continue to monitor platelet count closely. There is decline from 99,000 to 38,000. She might have received heparin during hemodialysis, which can lead to heparin-induced thrombocytopenia. We will wait for the assay. Avoid heparin flushes. 3. End-stage renal disease, on hemodialysis. Followed by Dr. Rose. 4. History of GI bleed in the past. Followed by Dr. Rosado. Thank you, Dr. Gomez for allowing us to participate in Ms. Kraus's care. We will continue follow. Chelsy Dominguez MD [facility]
[2018-01-11] MEDS: Vancomycin 1gm in NS 250ml 1 GM/250 ML BAG IVPB SCH (10:33)
[2018-01-11 11:16] LABS: IRON 57 ug/dL (45-180)
--- NOTE | 2018-01-11 11:17 | CP.PCM.PN ---
<Kelin Graf - Last Filed: 01/11/18 15:25> Subjective - Date & Time of Evaluation Date of Evaluation: 01/11/18 Time of Evaluation: 08:00 - Subjective Subjective: GI Progress Note for Logan Barr PGY2 Patient seen and examined at bedside. There were no acute overnight events as per nursing staff. Patient seen while getting HD. She reports her diarrhea has resolved. She denies abdominal pain, nausea/vomiting, fever/chills, chest pain or shortness of breath. Objective - Vital Signs/Intake and Output Vital Signs (last 24 hours): Temp Pulse Resp BP Pulse Ox 98 F 62 18 150/70 97 01/11/18 11:04 01/11/18 11:04 01/11/18 11:04 01/11/18 11:04 01/11/18 06:00 Intake and Output: 01/11/18 01/11/18 06:59 18:59 Intake Total 600 340 Balance 600 340 - Medications Medications: Current Medications Atorvastatin Calcium (Lipitor) 80 mg PO DIN [facility] Last Admin: 01/10/18 18:22 Dose: 80 mg Carvedilol (Coreg) 3.125 mg PO BID [facility] Last Admin: 01/10/18 18:22 Dose: 3.125 mg Cholestyramine Resin (Questran) 2 gm PO BID [facility] Last Admin: 01/10/18 18:21 Dose: 2 gm Cinacalcet (Sensipar) 30 mg PO DAILY [facility] Last Admin: 01/10/18 10:41 Dose: 30 mg Digoxin (Digoxin) 0.125 mg PO MWF [facility] Last Admin: 01/10/18 10:42 Dose: 0.125 mg Hydromorphone HCl (Dilaudid) 1 mg PO Q4H PRN PRN Reason: Pain, moderate (4-7) Last Admin: 01/10/18 13:05 Dose: 1 mg Vancomycin HCl (Vancomycin 1gm) 1 gm in 250 mls @ 167 mls/hr IVPB TTS [facility] PRN Reason: Protocol Last Admin: 01/11/18 10:33 Dose: Not Given Dextrose/Sodium Chloride (Dextrose 5%/0.45% Ns 1000 Ml) 1,000 mls @ 50 mls/hr IV .Q20H [facility] Last Admin: 01/10/18 13:05 Dose: 50 mls/hr Lactic Acid (Lac-Hydrin 12% Cream (140 G)) 0 ea TOP DAILY [facility] Last Admin: 01/10/18 12:10 Dose: Not Given Lactobacillus Acidophilus (Bacid Acidophilus) 1 cap PO BID [facility] Last Admin: 01/10/18 18:22 Dose: 1 cap Levalbuterol HCl (Xopenex) 1.25 mg IH 0200,0800,1400,2000 [facility] Last Admin: 01/11/18 08:36 Dose: Not Given Lisinopril (Zestril) 2.5 mg PO DAILY [facility] Last Admin: 01/10/18 10:41 Dose: 2.5 mg Loratadine (Claritin) 10 mg PO DAILY [facility] Last Admin: 01/10/18 10:42 Dose: 10 mg Metoclopramide HCl (Reglan) 5 mg IVP [facility] PRN PRN Reason: Nausea/Vomiting Last Admin: 01/06/18 17:11 Dose: 5 mg Ondansetron HCl (Zofran Inj) 4 mg IVP Q6H PRN PRN Reason: Nausea/Vomiting Last Admin: 01/06/18 12:59 Dose: 4 mg Prednisone (Prednisone Tab) 10 mg PO BID [facility] Last Admin: 01/10/18 18:22 Dose: 10 mg Sevelamer HCl (Renagel) 800 mg PO DAILY [facility] Last Admin: 01/10/18 10:41 Dose: 800 mg - Labs Labs: 01/11/18 07:05 01/11/18 07:05 PT 14.8 SECONDS (9.4-12.5) H 12/29/17 20:10 INR 1.29 (0.93-1.08) H 12/29/17 20:10 APTT 28.3 Seconds (25.1-36.5) 12/29/17 20:10 - Constitutional Appears: Chronically Ill - Head Exam Head Exam: ATRAUMATIC, NORMAL INSPECTION, NORMOCEPHALIC - ENT Exam ENT Exam: Mucous Membranes Moist - Respiratory Exam Respiratory Exam: Clear to Ausculation Bilateral, NORMAL BREATHING PATTERN. absent: Rales, Rhonchi, Wheezes - Cardiovascular Exam Cardiovascular Exam: REGULAR RHYTHM, +S1, +S2. absent: Gallop, Rubs, Murmur - GI/Abdominal Exam GI & Abdominal Exam: Soft, Normal Bowel Sounds. absent: Rigid, Tenderness, Mass , Rebound - Extremities Exam Extremities Exam: absent: Calf Tenderness, Pedal Edema - Neurological Exam Neurological Exam: Alert, Awake, CN II-XII Intact - Skin Skin Exam: Dry, Warm Assessment and Plan - Assessment and Plan (Free Text) Assessment: This is a 57yo female with past medical history of ESRD on HD, biventricular failure with pulm HTN, hepatomegaly with possible chronic liver disease, mildly elevated chromographin A level. Dieulafoy lesion s/p clipping who was admitted for 1. Bacteremia (S. Viridans) 2. Diarrhea (resolved and C.diff negative x 2) 3. ESRD on HD 4. Dilated cardiomyopathy (EF 31%) w/ pulmonary HTN 5. Anemia (chronic) 6. Thrombocytopenia Plan: Thrombocytopenia can be secondary to medications. Anemia work up pending. HIT panel pending. Patient off of PPI. Antibiotics were adjusted. Heme is on consult. Continue Questran for diarrhea. Continue puree diet. Will monitor LFTs. Continue short course of Reglan. Will monitor CBC. Case seen, discussed and reviewed with Dr. Alonzo Graf PGY2 <Jesus Manuel Rosado V - Last Filed: 01/16/18 23:46> Objective - Vital Signs/Intake and Output Vital Signs (last 24 hours): Temp Pulse Resp BP Pulse Ox 98 F 71 20 146/60 99 01/16/18 08:19 01/16/18 08:19 01/16/18 08:19 01/16/18 08:19 01/16/18 08:19 Intake and Output: 01/16/18 01/17/18 18:59 06:59 Intake Total 1080 Balance 1080 - Labs Labs: 01/16/18 05:30 01/16/18 05:30 PT 14.8 SECONDS (9.4-12.5) H 12/29/17 20:10 INR 1.29 (0.93-1.08) H 12/29/17 20:10 APTT 28.3 Seconds (25.1-36.5) 12/29/17 20:10 Attending/Attestation - Attestation I have personally seen and examined this patient.: Yes I have fully participated in the care of the patient.: Yes I have reviewed all pertinent clinical information, including history, physical exam and plan: Yes Notes (Text): This is an addendum to GI progress report dictated by the Field Human Resources Manager.The patient was seen and examined earlier. Medical records, lab studies, imagings were reviewed. Last 24 hours events reviewed. Agreed with the above treatment plan as outlined in Field Human Resources Manager 's notes the with the addition of the following thrombocytopenia probably sey to drug-induced Anemia Nausea Liquid diet and advance tod diet Start Carafate Would avoid PPI or H2 blockers in iew of the thrombocytopenia for now 01/16/18 23:44
[2018-01-11 11:26] LABS: % IRON SATURATION 26 % (20-55); TOTAL IRON BINDING CAPACITY 220 ug/dL (265-497)
[2018-01-11] MEDS: Lactobacillus Acidophilus 500 MU Cap PO SCH ×2 (12:05→17:23)
[2018-01-11] MEDS: Cholestyramine 4 gm/Pkt UD PO SCH ×2 (12:05→17:23)
[2018-01-11] MEDS: Ammonium Lactate 12% Cream (140 g) TOP SCH (12:06)
[2018-01-11] MEDS: Dextrose 5%/0.45% NS 1,000 ML IV SCH (12:08)
--- NOTE | 2018-01-11 13:58 | PN ---
DATE: 01/11/2018 SUBJECTIVE: The patient is 57 years old, seen in dialysis unit. States she had no bowel movement this morning. She states she is hungry. PHYSICAL EXAMINATION: VITAL SIGNS: She is afebrile, pulse 62, respirations 18, blood pressure 150/70. LUNGS: Bilateral fair airflow. No rhonchi or crackle. HEART: S1 and S2 audible. ABDOMEN: Soft, nontender. No rebound, no guarding. NEUROLOGIC: She is awake, alert, oriented, able to communicate. Moves all extremities. Had generalized weakness. LABORATORY DATA: WBC is 5.1, hemoglobin 7.8, hematocrit 25.8, platelets of 38. Chemistry: Sodium 134, potassium 4.4, chloride 100, CO2 23, BUN 51, creatinine 4.6, blood sugar of 156. Two sets of C. diff are negative. Last two blood culture on 01/04 were negative. However, she is 4 blood bottle positive for Streptococcus viridans. ASSESSMENT: 1. Streptococcus viridans bacteremia, currently on vancomycin. 2. Thrombocytopenia. 3. History of gastrointestinal bleed. 4. End-stage renal disease, on hemodialysis. 5. Intractable diarrhea, seems to be resolving. PLAN: I will taper down prednisone. Patient was given a dose of Questran yesterday probably that she had diarrhea. Request for TCU evaluation; if accepted, can be transferred to TCU for rehab and close monitoring. Shawn Gomez MD
--- NOTE | 2018-01-11 14:15 | IP.NPCORE ---
COPD Progress Note - COPD Progress Note FEV1/FVC<70: No Plan to assess at outpatient follow up: Yes Symptoms:: Increase in Dyspnea Initial CXR:: chf/ fluid overload Date:: 12/30/17 Oxygen Saturation/Pulse Oximetry:: 99 ABG Not Indicated (Symptoms Improved): Yes Nebulizers Q2-4 hrs:: Duonebs/Albuterol Therapy Antibiotics Not Indicated: Yes Systemic Steroids w/ methylprednisolone Name/Dose/Frequency:: solumedrol 40 iv q12 Oxygen Delivery Method: Nasal Cannula Oxygen Flow Rate: 2 Smoking cessation counseling all stages copd exacerbation: Yes
--- NOTE | 2018-01-11 15:16 | CP.PCM.PN ---
Subjective - Date & Time of Evaluation Date of Evaluation: 01/11/18 Time of Evaluation: 12:00 - Subjective Subjective: Patient requires hospital bed, requires head of bed to be up, due to underlying COPD, recently admitted with COPD exacerbation. Objective - Vital Signs/Intake and Output Vital Signs (last 24 hours): Temp Pulse Resp BP Pulse Ox 98 F 60 18 164/67 H 99 01/11/18 11:04 01/11/18 12:05 01/11/18 11:04 01/11/18 12:05 01/11/18 14:16 Intake and Output: 01/11/18 01/11/18 06:59 18:59 Intake Total 600 660 Balance 600 660 - Medications Medications: Current Medications Atorvastatin Calcium (Lipitor) 80 mg PO DIN [facility] Last Admin: 01/10/18 18:22 Dose: 80 mg Carvedilol (Coreg) 3.125 mg PO BID [facility] Last Admin: 01/11/18 12:05 Dose: 3.125 mg Cholestyramine Resin (Questran) 2 gm PO BID [facility] Last Admin: 01/11/18 12:05 Dose: 2 gm Cinacalcet (Sensipar) 30 mg PO DAILY [facility] Last Admin: 01/10/18 10:41 Dose: 30 mg Digoxin (Digoxin) 0.125 mg PO MWF [facility] Last Admin: 01/10/18 10:42 Dose: 0.125 mg Hydromorphone HCl (Dilaudid) 1 mg PO Q4H PRN PRN Reason: Pain, moderate (4-7) Last Admin: 01/10/18 13:05 Dose: 1 mg Vancomycin HCl (Vancomycin 1gm) 1 gm in 250 mls @ 167 mls/hr IVPB TTS [facility] PRN Reason: Protocol Last Admin: 01/11/18 10:33 Dose: Not Given Dextrose/Sodium Chloride (Dextrose 5%/0.45% Ns 1000 Ml) 1,000 mls @ 50 mls/hr IV .Q20H [facility] Last Admin: 01/11/18 12:08 Dose: 50 mls/hr Lactic Acid (Lac-Hydrin 12% Cream (140 G)) 0 ea TOP DAILY [facility] Last Admin: 01/11/18 12:06 Dose: Not Given Lactobacillus Acidophilus (Bacid Acidophilus) 1 cap PO BID [facility] Last Admin: 01/11/18 12:05 Dose: 1 cap Levalbuterol HCl (Xopenex) 1.25 mg IH 0200,0800,1400,2000 [facility] Last Admin: 01/11/18 13:36 Dose: 1.25 mg Lisinopril (Zestril) 2.5 mg PO DAILY [facility] Last Admin: 01/11/18 12:05 Dose: 2.5 mg Metoclopramide HCl (Reglan) 5 mg IVP ACHS PRN PRN Reason: Nausea/Vomiting Last Admin: 01/06/18 17:11 Dose: 5 mg Ondansetron HCl (Zofran Inj) 4 mg IVP Q6H PRN PRN Reason: Nausea/Vomiting Last Admin: 01/06/18 12:59 Dose: 4 mg Prednisone (Prednisone Tab) 10 mg PO BID [facility] Last Admin: 01/11/18 12:05 Dose: 10 mg Sevelamer HCl (Renagel) 800 mg PO DAILY [facility] Last Admin: 01/11/18 12:05 Dose: 800 mg - Labs Labs: 01/11/18 07:05 01/11/18 07:05 PT 14.8 SECONDS (9.4-12.5) H 12/29/17 20:10 INR 1.29 (0.93-1.08) H 12/29/17 20:10 APTT 28.3 Seconds (25.1-36.5) 12/29/17 20:10
[2018-01-11 17:59] LABS: FOLATE 3.6 ng/mL
--- NOTE | 2018-01-12 00:07 | PN ---
DATE: 01/11/2018 SUBJECTIVE: The patient is seen lying in bed. She is awake. She is alert. She is eating some chocolate. She reports that the diarrhea is much improved today. No diarrhea today. PHYSICAL EXAMINATION: GENERAL: Elderly lady, lying in bed. VITAL SIGNS: Blood pressure 164/67, heart rate 60, respiratory rate 18, temperature 99.1, T-max 99.1. HEENT: Normocephalic, atraumatic, positive pallor. NECK: Supple, no JVD. LUNGS: Bilateral equal air entry, bilateral equal expansion. CARDIAC: S1 and S2, regular rate and rhythm, no murmur, no rub. ABDOMEN: Soft, nondistended, nontender, bowel sounds present. EXTREMITIES: No lower extremity edema. INTAKE AND OUTPUT: Not charted. LABORATORY DATA: WBC 5, hemoglobin 7.8, hematocrit 26, platelets 38. Sodium 134, potassium 4.4, chloride 100, CO2 of 23, BUN 51, creatinine 4.6, glucose 156, calcium 7.5. Iron 57, saturation 26, ferritin 1590. CURRENT MEDICATIONS: Coreg 3.125 b.i.d., D5 half normal saline at 50, digoxin, Dilaudid, Lipitor 80, prednisone 10 b.i.d., Reglan 5, Renagel, Sensipar on hold, vancomycin, Zestril, Zofran. ASSESSMENT: 1. Streptococcal bacteremia. 2. Severe sepsis. 3. Thrombocytopenia, ? secondary to disseminated intravascular coagulation. 4. Hypertension. 5. End-stage renal disease. 6. Severe anemia. PLAN: 1. Workup for HIT in progress. 2. Continue Venofer and BLUE on dialysis. 3. Continue to hold the Sensipar. 4. Continue antibiotics as per ID recommendations. 5. Continue Imodium. Mansi Rose MD
[2018-01-12] MEDS: Levalbuterol 1.25 MG/3 ML Inhal Soln UD IH SCH ×4 (01:29→20:08)
--- NOTE | 2018-01-12 07:20 | CP.PCM.PN ---
Subjective - Date & Time of Evaluation Date of Evaluation: 01/12/18 Time of Evaluation: 06:25 - Subjective Subjective: Sleeping but easily awaken, lying in bed ,no distress Reason for consultation and follow up:Cardiac evaluation for shortness of breath , cardiomyopathy, pulmonary hypertension, Seen and examined by me and Dr. Mccullough Objective - Vital Signs/Intake and Output Vital Signs (last 24 hours): Temp Pulse Resp BP Pulse Ox 99.1 F 80 19 143/61 98 01/11/18 18:00 01/11/18 18:00 01/11/18 18:00 01/11/18 18:00 01/11/18 18:00 Intake and Output: 01/12/18 01/12/18 06:59 18:59 Intake Total 0 Balance 0 - Medications Medications: Current Medications Atorvastatin Calcium (Lipitor) 80 mg PO DIN [facility] Last Admin: 01/11/18 17:23 Dose: 80 mg Carvedilol (Coreg) 3.125 mg PO BID [facility] Last Admin: 01/11/18 17:23 Dose: 3.125 mg Cholestyramine Resin (Questran) 2 gm PO BID [facility] Last Admin: 01/11/18 17:23 Dose: 2 gm Cinacalcet (Sensipar) 30 mg PO DAILY [facility] Last Admin: 01/10/18 10:41 Dose: 30 mg Digoxin (Digoxin) 0.125 mg PO MWF [facility] Last Admin: 01/10/18 10:42 Dose: 0.125 mg Hydromorphone HCl (Dilaudid) 1 mg PO Q4H PRN PRN Reason: Pain, moderate (4-7) Last Admin: 01/11/18 22:47 Dose: 1 mg Vancomycin HCl (Vancomycin 1gm) 1 gm in 250 mls @ 167 mls/hr IVPB TTS [facility] PRN Reason: Protocol Last Admin: 01/11/18 10:33 Dose: Not Given Dextrose/Sodium Chloride (Dextrose 5%/0.45% Ns 1000 Ml) 1,000 mls @ 50 mls/hr IV .Q20H [facility] Last Admin: 01/11/18 12:08 Dose: 50 mls/hr Lactic Acid (Lac-Hydrin 12% Cream (140 G)) 0 ea TOP DAILY [facility] Last Admin: 01/11/18 12:06 Dose: Not Given Lactobacillus Acidophilus (Bacid Acidophilus) 1 cap PO BID [facility] Last Admin: 01/11/18 17:23 Dose: 1 cap Levalbuterol HCl (Xopenex) 1.25 mg IH 0200,0800,1400,2000 [facility] Last Admin: 01/12/18 01:29 Dose: 1.25 mg Lisinopril (Zestril) 2.5 mg PO DAILY [facility] Last Admin: 01/11/18 12:05 Dose: 2.5 mg Metoclopramide HCl (Reglan) 5 mg IVP ACHS PRN PRN Reason: Nausea/Vomiting Last Admin: 01/06/18 17:11 Dose: 5 mg Ondansetron HCl (Zofran Inj) 4 mg IVP Q6H PRN PRN Reason: Nausea/Vomiting Last Admin: 01/11/18 16:31 Dose: 4 mg Prednisone (Prednisone Tab) 10 mg PO BID [facility] Last Admin: 01/11/18 17:23 Dose: 10 mg Sevelamer HCl (Renagel) 800 mg PO DAILY [facility] Last Admin: 01/11/18 12:05 Dose: 800 mg - Labs Labs: 01/11/18 07:05 01/11/18 07:05 PT 14.8 SECONDS (9.4-12.5) H 12/29/17 20:10 INR 1.29 (0.93-1.08) H 12/29/17 20:10 APTT 28.3 Seconds (25.1-36.5) 12/29/17 20:10 - Constitutional Appears: No Acute Distress - Head Exam Head Exam: NORMOCEPHALIC - Eye Exam Eye Exam: Normal appearance - ENT Exam ENT Exam: Mucous Membranes Moist - Respiratory Exam Respiratory Exam: Decreased Breath Sounds, NORMAL BREATHING PATTERN - Cardiovascular Exam Cardiovascular Exam: +S1, +S2 - GI/Abdominal Exam GI & Abdominal Exam: Soft, Normal Bowel Sounds - Exam Additional comments: ESRD, on hemodialysis 3x a week - Extremities Exam Extremities Exam: Normal Capillary Refill Additional comments: left arm AV shunt +bruit/thrill - Neurological Exam Neurological Exam: Alert, Awake, Oriented x3 - Psychiatric Exam Psychiatric exam: Normal Affect, Normal Mood - Skin Skin Exam: Intact, Normal Color, Warm Assessment and Plan - Assessment and Plan (Free Text) Assessment: A 57 year old female who came in to the ER due to shortness of breath, possibly pneumonia. History of cardiomyopathy,COPD, asthmatic bronchitis, hypertension, hyperlipidemia, GI bleed, ESRD on hemodialysis (Monday, , Monday). current smoker,cholecystectomy,pericardial window for effusion, AV shunt,right hip surgery, 2017-Cardiac cath-normal coronaries. Admitted in 2017 with similar symptoms and Echo showed pulmonary hypertension and was treated with primacor with improvement, ECHO done showed LVEF 55%, Moderate to severe MR/TR, Severe pulmonary hypertension, severely impaired systolic function, No evidence of endocarditis. 01/04/18MUGA scan done -LVEF 31%, Moderate to severe LV dysfunction with diffuse hypokinesis, Normal RV function 01/08/18 KADY done, Severe MR/TR, LVEF 25 %, no evidence of endocarditis.Reevaluate LV function in 3-6 months Plan: Denies shortness of breath Cardiac status stable Controlled heart rate and blood pressure On Coreg 3.125 mg BID,Zestril 2.5 mg daily,Digoxin 0.125 mg 3x a week (MWF) Low platelets, PPI discontinued Episodes of loose bowel movement yesterday, sent for C- diff- negative Streptococcus viridans bacteremia, on Vancomycin ID on consult Encouraged fluid intake Continue antibiotics per ID Continue all other medications Continue current treatment Will follow up Plan and treatment discussed with Dr. Mccullough
[2018-01-12] MEDS: Cholestyramine 4 gm/Pkt UD PO SCH ×3 (09:09→17:39)
[2018-01-12] MEDS: Lactobacillus Acidophilus 500 MU Cap PO SCH ×2 (09:09→17:35)
[2018-01-12] MEDS: Digoxin 125 mcg (0.125 mg) Tab PO SCH (09:09)
[2018-01-12] MEDS: Ammonium Lactate 12% Cream (140 g) TOP SCH (09:10)
[2018-01-12] MEDS: Dextrose 5%/0.45% NS 1,000 ML IV SCH (12:00)
--- NOTE | 2018-01-12 14:56 | PN ---
DATE: 01/12/2018 SUBJECTIVE: The patient was seen lying in bed. She appears very frail and weak. PHYSICAL EXAMINATION: GENERAL: A middle-aged lady, lying in bed. VITAL SIGNS: Blood pressure 140/62, heart rate 84, respiratory rate 18, and temperature 98.7. HEENT: Normocephalic, atraumatic, positive pallor. NECK: Supple, no JVD. LUNGS: Bilateral equal air entry, bilateral equal expansion, scattered rhonchi. CARDIAC: S1 and S2, regular rate and rhythm, positive murmur, no rub. ABDOMEN: Soft, nondistended, nontender, bowel sounds present. EXTREMITIES: Lower extremity edema. INTAKE AND OUTPUT: Not charted. LABORATORY DATA: No labs from today. CURRENT MEDICATIONS: List reviewed. ASSESSMENT: 1. Severe sepsis, streptococcal bacteremia, slowly improving. 2. Dilated cardiomyopathy, decreased ejection fraction, severe mitral regurgitation/tricuspid regurgitation, severe pulmonary hypertension. 3. Thrombocytopenia. 4. Chronic anemia. 5. End-stage renal disease. PLAN: 1. Stable dialysis yesterday. 2. Continue antibiotics as per ID recommendations. 3. Continue beta-edith and ANSHUL inhibitor. 4. Next dialysis tomorrow. Mansi Rose MD
--- NOTE | 2018-01-12 16:21 | CP.PCM.PN ---
<Jennifer Barron - Last Filed: 01/12/18 16:21> Subjective - Date & Time of Evaluation Date of Evaluation: 01/12/18 Time of Evaluation: 10:50 - Subjective Subjective: Seen and examined at the bedside earlier today, chart review. Patient does report improvement of nausea,diarrhea and abdominal pain. No recent pain meds. Does not like. Diarrhea. Reported that she had a subsequent which yesterday and tolerated well no postprandial pain or nausea, although she did have some Zofran yesterday but reports not on a regular basis. Objective - Vital Signs/Intake and Output Vital Signs (last 24 hours): Temp Pulse Resp BP Pulse Ox 98.7 F 84 18 140/62 99 01/12/18 06:00 01/12/18 09:12 01/12/18 06:00 01/12/18 09:12 01/12/18 06:00 Intake and Output: 01/12/18 01/12/18 06:59 18:59 Intake Total 720 Output Total 0 Balance 720 - Medications Medications: Current Medications Atorvastatin Calcium (Lipitor) 80 mg PO DIN [facility] Last Admin: 01/11/18 17:23 Dose: 80 mg Carvedilol (Coreg) 3.125 mg PO BID [facility] Last Admin: 01/12/18 09:10 Dose: 3.125 mg Cholestyramine Resin (Questran) 2 gm PO BID [facility] Last Admin: 01/12/18 09:09 Dose: 2 gm Cinacalcet (Sensipar) 30 mg PO DAILY [facility] Last Admin: 01/10/18 10:41 Dose: 30 mg Digoxin (Digoxin) 0.125 mg PO MWF [facility] Last Admin: 01/12/18 09:09 Dose: 0.125 mg Hydromorphone HCl (Dilaudid) 1 mg PO Q4H PRN PRN Reason: Pain, moderate (4-7) Last Admin: 01/11/18 22:47 Dose: 1 mg Vancomycin HCl (Vancomycin 1gm) 1 gm in 250 mls @ 167 mls/hr IVPB TTS [facility] PRN Reason: Protocol Last Admin: 01/11/18 10:33 Dose: Not Given Dextrose/Sodium Chloride (Dextrose 5%/0.45% Ns 1000 Ml) 1,000 mls @ 50 mls/hr IV .Q20H [facility] Last Admin: 01/11/18 12:08 Dose: 50 mls/hr Lactic Acid (Lac-Hydrin 12% Cream (140 G)) 0 ea TOP DAILY [facility] Last Admin: 01/12/18 09:10 Dose: Not Given Lactobacillus Acidophilus (Bacid Acidophilus) 1 cap PO BID [facility] Last Admin: 01/12/18 09:09 Dose: 1 cap Levalbuterol HCl (Xopenex) 1.25 mg IH 0200,0800,1400,2000 [facility] Last Admin: 01/12/18 13:35 Dose: 1.25 mg Lisinopril (Zestril) 2.5 mg PO DAILY [facility] Last Admin: 01/12/18 09:12 Dose: 2.5 mg Metoclopramide HCl (Reglan) 5 mg IVP ACHS PRN PRN Reason: Nausea/Vomiting Last Admin: 01/06/18 17:11 Dose: 5 mg Ondansetron HCl (Zofran Inj) 4 mg IVP Q6H PRN PRN Reason: Nausea/Vomiting Last Admin: 01/12/18 08:59 Dose: 4 mg Prednisone (Prednisone Tab) 10 mg PO DAILY [facility] Sevelamer HCl (Renagel) 800 mg PO DAILY [facility] Last Admin: 01/12/18 09:09 Dose: 800 mg - Labs Labs: 01/11/18 07:05 01/11/18 07:05 PT 14.8 SECONDS (9.4-12.5) H 12/29/17 20:10 INR 1.29 (0.93-1.08) H 12/29/17 20:10 APTT 28.3 Seconds (25.1-36.5) 12/29/17 20:10 - Constitutional Appears: No Acute Distress - Eye Exam Eye Exam: Normal appearance. absent: Scleral icterus - ENT Exam ENT Exam: Mucous Membranes Moist - Respiratory Exam Respiratory Exam: NORMAL BREATHING PATTERN. absent: Respiratory Distress - Cardiovascular Exam Cardiovascular Exam: +S1, +S2 - GI/Abdominal Exam GI & Abdominal Exam: Soft, Normal Bowel Sounds. absent: Guarding, Tenderness, Organomegaly, Rebound - Extremities Exam Extremities Exam: absent: Calf Tenderness - Neurological Exam Neurological Exam: Alert, Awake, Oriented x3 - Skin Skin Exam: Dry, Warm Assessment and Plan - Assessment and Plan (Free Text) Assessment: Assessment: Bacteremia (S. Viridans) Diarrhea , cdiff negative X2, ESRD on HD Dilated cardiomyopathy (EF 31%) Biventricular failure w/ pulmonary HTN Anemia (chronic) H/O mildly elevated Chromogranin A Thrombocytopenia PLAN: change diet to so ft renal, heart healthy Trend LFT on Reglan, recommend short course monitor H/H and for overt GI bleeding on IV antibiotics vancomycin as per ID on Probiotics on Prednisone on Questran Off PPI/H2B, low platelets Seen and discussed with Dr. Rosado. <Jesus Manuel Rosado V - Last Filed: 01/13/18 00:17> Objective - Vital Signs/Intake and Output Vital Signs (last 24 hours): Temp Pulse Resp BP Pulse Ox 98.3 F 82 19 143/64 94 L 01/12/18 18:00 01/12/18 18:00 01/12/18 18:00 01/12/18 18:00 01/12/18 18:00 Intake and Output: 01/12/18 01/13/18 18:59 06:59 Intake Total 720 Output Total 0 Balance 720 - Medications Medications: Current Medications Atorvastatin Calcium (Lipitor) 80 mg PO DIN [facility] Last Admin: 01/12/18 17:35 Dose: 80 mg Carvedilol (Coreg) 3.125 mg PO BID [facility] Last Admin: 01/12/18 17:35 Dose: 3.125 mg Cholestyramine Resin (Questran) 2 gm PO BID [facility] Last Admin: 01/12/18 17:39 Dose: Not Given Cinacalcet (Sensipar) 30 mg PO DAILY [facility] Last Admin: 01/10/18 10:41 Dose: 30 mg Dicyclomine HCl (Bentyl) 10 mg PO Q6 PRN PRN Reason: GI distress Last Admin: 01/12/18 18:52 Dose: 10 mg Digoxin (Digoxin) 0.125 mg PO MWF [facility] Last Admin: 01/12/18 09:09 Dose: 0.125 mg Hydromorphone HCl (Dilaudid) 1 mg PO Q4H PRN PRN Reason: Pain, moderate (4-7) Last Admin: 01/12/18 17:45 Dose: 1 mg Vancomycin HCl (Vancomycin 1gm) 1 gm in 250 mls @ 167 mls/hr IVPB TTS [facility] PRN Reason: Protocol Last Admin: 01/11/18 10:33 Dose: Not Given Dextrose/Sodium Chloride (Dextrose 5%/0.45% Ns 1000 Ml) 1,000 mls @ 50 mls/hr IV .Q20H [facility] Last Admin: 01/12/18 12:00 Dose: 50 mls/hr Lactic Acid (Lac-Hydrin 12% Cream (140 G)) 0 ea TOP DAILY [facility] Last Admin: 01/12/18 09:10 Dose: Not Given Lactobacillus Acidophilus (Bacid Acidophilus) 1 cap PO BID [facility] Last Admin: 01/12/18 17:35 Dose: 1 cap Levalbuterol HCl (Xopenex) 1.25 mg IH 0200,0800,1400,2000 [facility] Last Admin: 01/12/18 20:08 Dose: 1.25 mg Lisinopril (Zestril) 2.5 mg PO DAILY [facility] Last Admin: 01/12/18 09:12 Dose: 2.5 mg Metoclopramide HCl (Reglan) 5 mg IVP Q12 PRN PRN Reason: Nausea/Vomiting Ondansetron HCl (Zofran Inj) 4 mg IVP Q6H PRN PRN Reason: Nausea/Vomiting Last Admin: 01/12/18 08:59 Dose: 4 mg Prednisone (Prednisone Tab) 10 mg PO DAILY [facility] Sevelamer HCl (Renagel) 800 mg PO DAILY [facility] Last Admin: 01/12/18 09:09 Dose: 800 mg - Labs Labs: 01/11/18 07:05 01/11/18 07:05 PT 14.8 SECONDS (9.4-12.5) H 12/29/17 20:10 INR 1.29 (0.93-1.08) H 12/29/17 20:10 APTT 28.3 Seconds (25.1-36.5) 12/29/17 20:10 Attending/Attestation - Attestation I have personally seen and examined this patient.: Yes I have fully participated in the care of the patient.: Yes I have reviewed all pertinent clinical information, including history, physical exam and plan: Yes Notes (Text): This is an addendum to GI progress report dictated by Jennifer Barron APN.The patient was seen and examined earlier. Medical records, lab studies, imagings were reviewed. Last 24 hours events reviewed. Agreed with the above treatment plan as outlined in Jennifer Barron APN's notes with the addition of the following 01/13/18 00:17
--- NOTE | 2018-01-12 18:05 | PN ---
DATE: 01/12/2018 SUBJECTIVE: The patient is 57 years old, seen and examined, complained of loss of appetite. She has big bowel movement that is semi-solid. No more diarrhea. She was started on Questran. Has generalized weakness, tremulous. PHYSICAL EXAMINATION VITAL SIGNS: She is afebrile, pulse 83, respirations 18, blood pressure . LUNGS: Bilateral diffusely decreased breath sounds. HEART: S1 and S2 audible. ABDOMEN: Soft, nontender. No rebound, no guarding. NEUROLOGIC: The patient is awake, alert, communicative. LABORATORY DATA: Yesterday, the hemoglobin was 7.8 with a hematocrit 25.8, platelet of 38. ASSESSMENT: 1. Status post bacteremia, status post KADY, negative for endocarditis. 2. End-stage renal disease, on hemodialysis. 3. Generalized weakness. 4. Intractable diarrhea. 5. History of gastrointestinal bleed in the past. PLAN: Currently, the patient is on IV fluids. We will transfuse her 1 packed RBCs. Continue her on small dose of prednisone down to 10 mg daily and transfuse 1 packed RBCs as the patient is feeling very weak and tired. Shawn Gomez MD
[2018-01-13] MEDS: Levalbuterol 1.25 MG/3 ML Inhal Soln UD IH SCH ×4 (01:11→20:04)
--- NOTE | 2018-01-13 08:37 | CP.PCM.PN ---
Subjective - Date & Time of Evaluation Date of Evaluation: 01/13/18 Time of Evaluation: 07:10 - Subjective Subjective: Lying in bed ,no distress,Sleeping but easily awaken, Reason for consultation and follow up:Cardiac evaluation for shortness of breath , cardiomyopathy, pulmonary hypertension, Seen and examined by me and Dr. Mccullough Objective - Vital Signs/Intake and Output Vital Signs (last 24 hours): Temp Pulse Resp BP Pulse Ox 98.3 F 82 19 143/64 94 L 01/12/18 18:00 01/12/18 18:00 01/12/18 18:00 01/12/18 18:00 01/12/18 18:00 Intake and Output: 01/13/18 01/13/18 06:59 18:59 Intake Total 0 Output Total 0 Balance 0 - Medications Medications: Current Medications Atorvastatin Calcium (Lipitor) 80 mg PO DIN [facility] Last Admin: 01/12/18 17:35 Dose: 80 mg Carvedilol (Coreg) 3.125 mg PO BID [facility] Last Admin: 01/12/18 17:35 Dose: 3.125 mg Cholestyramine Resin (Questran) 2 gm PO BID [facility] Last Admin: 01/12/18 17:39 Dose: Not Given Cinacalcet (Sensipar) 30 mg PO DAILY [facility] Last Admin: 01/10/18 10:41 Dose: 30 mg Dicyclomine HCl (Bentyl) 10 mg PO Q6 PRN PRN Reason: GI distress Last Admin: 01/13/18 07:50 Dose: 10 mg Digoxin (Digoxin) 0.125 mg PO MWF [facility] Last Admin: 01/12/18 09:09 Dose: 0.125 mg Hydromorphone HCl (Dilaudid) 1 mg PO Q4H PRN PRN Reason: Pain, moderate (4-7) Last Admin: 01/12/18 17:45 Dose: 1 mg Vancomycin HCl (Vancomycin 1gm) 1 gm in 250 mls @ 167 mls/hr IVPB TTS [facility] PRN Reason: Protocol Last Admin: 01/11/18 10:33 Dose: Not Given Dextrose/Sodium Chloride (Dextrose 5%/0.45% Ns 1000 Ml) 1,000 mls @ 50 mls/hr IV .Q20H [facility] Last Admin: 01/12/18 12:00 Dose: 50 mls/hr Lactic Acid (Lac-Hydrin 12% Cream (140 G)) 0 ea TOP DAILY [facility] Last Admin: 01/12/18 09:10 Dose: Not Given Lactobacillus Acidophilus (Bacid Acidophilus) 1 cap PO BID [facility] Last Admin: 01/12/18 17:35 Dose: 1 cap Levalbuterol HCl (Xopenex) 1.25 mg IH 0200,0800,1400,2000 [facility] Last Admin: 01/13/18 08:18 Dose: 1.25 mg Lisinopril (Zestril) 2.5 mg PO DAILY [facility] Last Admin: 01/12/18 09:12 Dose: 2.5 mg Metoclopramide HCl (Reglan) 5 mg IVP Q12 PRN PRN Reason: Nausea/Vomiting Ondansetron HCl (Zofran Inj) 4 mg IVP Q6H PRN PRN Reason: Nausea/Vomiting Last Admin: 01/12/18 08:59 Dose: 4 mg Prednisone (Prednisone Tab) 10 mg PO DAILY [facility] Sevelamer HCl (Renagel) 800 mg PO DAILY [facility] Last Admin: 01/12/18 09:09 Dose: 800 mg - Labs Labs: 01/11/18 07:05 01/11/18 07:05 PT 14.8 SECONDS (9.4-12.5) H 12/29/17 20:10 INR 1.29 (0.93-1.08) H 12/29/17 20:10 APTT 28.3 Seconds (25.1-36.5) 12/29/17 20:10 - Constitutional Appears: No Acute Distress - Head Exam Head Exam: NORMOCEPHALIC - Eye Exam Eye Exam: Normal appearance - ENT Exam ENT Exam: Mucous Membranes Moist - Respiratory Exam Respiratory Exam: Decreased Breath Sounds, NORMAL BREATHING PATTERN Additional comments: NC 2l/min - Cardiovascular Exam Cardiovascular Exam: +S1, +S2 - GI/Abdominal Exam GI & Abdominal Exam: Soft, Normal Bowel Sounds - Exam Additional comments: ESRD,hemodialysis 3x a week - Extremities Exam Extremities Exam: Normal Capillary Refill Additional comments: left AV shunt, positive thrill and bruit - Neurological Exam Neurological Exam: Alert, Awake, Oriented x3 - Psychiatric Exam Psychiatric exam: Normal Affect, Normal Mood - Skin Skin Exam: Intact, Normal Color, Warm Assessment and Plan - Assessment and Plan (Free Text) Assessment: A 57 year old female who came in to the ER due to shortness of breath, possibly pneumonia. History of cardiomyopathy,COPD, asthmatic bronchitis, hypertension, hyperlipidemia, GI bleed, ESRD on hemodialysis (Monday, , Monday). current smoker,cholecystectomy,pericardial window for effusion, AV shunt,right hip surgery, 2017-Cardiac cath-normal coronaries. Admitted in 2017 with similar symptoms and Echo showed pulmonary hypertension and was treated with primacor with improvement, ECHO done showed LVEF 55%, Moderate to severe MR/TR, Severe pulmonary hypertension, severely impaired systolic function, No evidence of endocarditis. 01/04/18MUGA scan done -LVEF 31%, Moderate to severe LV dysfunction with diffuse hypokinesis, Normal RV function 01/08/18 KADY done, Severe MR/TR, LVEF 25 %, no evidence of endocarditis.Reevaluate LV function in 3-6 months Plan: For hemodialysis today Cardiac status stable Controlled heart rate and blood pressure On Coreg 3.125 mg BID,Zestril 2.5 mg daily,Digoxin 0.125 mg 3x a week (MWF) Streptococcus viridans bacteremia, on Vancomycin ID on consult Encouraged fluid intake Continue antibiotics per ID Continue all other medications Continue current treatment Will follow up Plan and treatment discussed with Dr. Mccullough for
[2018-01-13 09:04] LABS: EOS # 0.2 (0.0-0.7); EOS % 1.9 % (1.5-5.0); GRAN # 6.53 (1.4-6.5); GRAN % 81.7 % (50.0-68.0); HEMOGLOBIN 7.7 g/dL (12.0-16.0); LYMPH # 0.7 (1.2-3.4); LYMPH % 9.3 % (22.0-35.0); MEAN CELL VOLUME 83.2 fl (80.0-105.0); MEAN CORPUSCULAR HEMOGLOBIN 25.3 pg (25.0-35.0); MEAN CORPUSCULAR HGB CONC 30.4 g/dl (31.0-37.0); MEAN PLATELET VOLUME 10.3 fl (7.0-11.0); MONO # 0.6 (0.1-0.6); MONO % 7.1 % (1.0-6.0); RBC 3.04 10^6/uL (3.5-6.1); RED CELL DISTRIBUTION WIDTH 18.1 % (11.5-14.5)
[2018-01-13 09:14] LABS: PLATELET COUNT 39 10^3/uL (120.0-450.0)
[2018-01-13] MEDS: Cholestyramine 4 gm/Pkt UD PO SCH ×2 (11:52→17:34)
[2018-01-13] MEDS: Lactobacillus Acidophilus 500 MU Cap PO SCH ×2 (11:52→17:34)
--- NOTE | 2018-01-13 13:00 | PN ---
DATE: 01/13/2018 SUBJECTIVE: The patient is currently seen on 3R. She is awaiting transfer to dialysis. She continues to appear to look very weak. Her oral intake is nil. She states that the hospital that is being delivered to her house today in preparation for discharge. I did explain to her that without eating, she will likely continue to weaken and do poorly in the outpatient setting. MEDICATIONS: Medication list reviewed. The patient is currently on acidophilus, Bentyl, Coreg, digoxin, Dilaudid, Lac-Hydrin, Lipitor, prednisone, Questran, Reglan, Renagel, Sensipar is on hold. IV vancomycin, Xopenex and Zofran. OBJECTIVE: INTAKE/OUTPUT. Intake 660, output 0. VITAL SIGNS: Blood pressure 143/64, temperature 98.3, respiratory rate 90 with a pulse of 82. HEENT: Normocephalic, atraumatic. Conjunctivae remain pale. Sclerae are mildly icteric. NECK: Supple. No neck vein distention. CHEST: Clear to auscultation and percussion with no rales, rhonchi or wheezing. CARDIOVASCULAR: Regular rate and rhythm with MR/TR. EXTREMITIES: Show no lower extremity edema. Positive left upper extremity AV fistula. LABORATORY DATA AND IMAGING: CBC from 01/11/2018, white blood cell count 5.1, hemoglobin 7.8, platelet count is 38,000. Chemistries: Normal electrolytes. BUN 41, creatinine 4.6, glucose 156 with a calcium of 7.5, corrects to normal for an albumin of 2.5, phosphorus level was 2.8 with a magnesium level of 1.9. Iron saturations were 26% with a ferritin of 1590. Microbiology: All blood cultures are positive for strep viridans. The patient remains on vancomycin post dialysis. Stool C. Diff has been negative on multiple occasions. ASSESSMENT: 1. End-stage renal disease. The patient will continue maintenance dialysis on Monday, , Monday. 2. History of chronic obstructive pulmonary disease with exacerbation. This seems to have resolved. 3. Streptococcus viridans bacteremia. The patient will complete a course of IV vancomycin therapy. No evidence for endocarditis from repeat echocardiograms that were done. 4. History of anemia secondary to chronic kidney disease. Hemoglobin level remains low and the patient will continue to receive Aranesp and IV iron per protocol on dialysis. If necessary blood transfusions. 5. Thrombocytopenia. As discussed in my previous note perhaps a Hematology evaluation. The patient had been seen by Dr. Dominguez. Workup is in progress. 6. History of hypertension. Blood pressure control is acceptable. 7. History of severe cardiomyopathy with moderate to severe mitral regurgitation, tricuspid regurgitation, severe pulmonary hypertension. The patient appears to be stable presently. 8. History of secondary hyperparathyroidism. Calcium corrects to normal, Sensipar was placed on hold. Last phosphorus level was 2.8. Low phosphorus level likely secondary to poor p.o. intake. I will place Renagel on hold. 9. History of renal cyst. 10. History of intermittent diarrhea. 11. Status post total right hip replacement surgery. PLAN: 1. Concerned about the patient's poor oral intake. She did not eat anything for breakfast. It appears from talking to the nursing staff that she has been eating very little, this likely explains her progress of weakness. 2. Completed course of antibiotic therapy for strep viridans bacteremia. No evidence of endocarditis. 3. Aranesp and iron per protocol. The patient maybe transfused on an as-needed basis if her hemoglobin drops any lower. 4. Appreciate initial Hematology evaluation for her thrombocytopenia. Workup in progress. Deon Mathews MD
[2018-01-13] MEDS: Ammonium Lactate 12% Cream (140 g) TOP SCH (14:41)
[2018-01-13] MEDS: Vancomycin 1gm in NS 250ml 1 GM/250 ML BAG IVPB SCH (14:41)
[2018-01-13] MEDS: Lidocaine/Prilocaine 2.5%-2.5% Cream(30 gm) TOP SCH (14:54)
--- NOTE | 2018-01-13 15:10 | CP.PCM.PN ---
Subjective - Date & Time of Evaluation Date of Evaluation: 01/12/18 Time of Evaluation: 10:00 - Subjective Subjective: Patient for dialysis today, no fevers, not in distress. Objective - Vital Signs/Intake and Output Vital Signs (last 24 hours): Temp Pulse Resp BP Pulse Ox 98.7 F 84 18 140/62 99 01/12/18 06:00 01/12/18 09:12 01/12/18 06:00 01/12/18 09:12 01/12/18 06:00 Intake and Output: 01/12/18 01/12/18 06:59 18:59 Intake Total 0 Balance 0 - Medications Medications: Current Medications Atorvastatin Calcium (Lipitor) 80 mg PO DIN [facility] Last Admin: 01/11/18 17:23 Dose: 80 mg Carvedilol (Coreg) 3.125 mg PO BID [facility] Last Admin: 01/12/18 09:10 Dose: 3.125 mg Cholestyramine Resin (Questran) 2 gm PO BID [facility] Last Admin: 01/12/18 09:09 Dose: 2 gm Cinacalcet (Sensipar) 30 mg PO DAILY [facility] Last Admin: 01/10/18 10:41 Dose: 30 mg Digoxin (Digoxin) 0.125 mg PO MWF [facility] Last Admin: 01/12/18 09:09 Dose: 0.125 mg Hydromorphone HCl (Dilaudid) 1 mg PO Q4H PRN PRN Reason: Pain, moderate (4-7) Last Admin: 01/11/18 22:47 Dose: 1 mg Vancomycin HCl (Vancomycin 1gm) 1 gm in 250 mls @ 167 mls/hr IVPB TTS [facility] PRN Reason: Protocol Last Admin: 01/11/18 10:33 Dose: Not Given Dextrose/Sodium Chloride (Dextrose 5%/0.45% Ns 1000 Ml) 1,000 mls @ 50 mls/hr IV .Q20H [facility] Last Admin: 01/11/18 12:08 Dose: 50 mls/hr Lactic Acid (Lac-Hydrin 12% Cream (140 G)) 0 ea TOP DAILY [facility] Last Admin: 01/12/18 09:10 Dose: Not Given Lactobacillus Acidophilus (Bacid Acidophilus) 1 cap PO BID [facility] Last Admin: 01/12/18 09:09 Dose: 1 cap Levalbuterol HCl (Xopenex) 1.25 mg 0200,0800,1400,2000 [facility] Last Admin: 01/12/18 07:50 Dose: 1.25 mg Lisinopril (Zestril) 2.5 mg PO DAILY [facility] Last Admin: 01/12/18 09:12 Dose: 2.5 mg Metoclopramide HCl (Reglan) 5 mg IVP [facility] PRN PRN Reason: Nausea/Vomiting Last Admin: 01/06/18 17:11 Dose: 5 mg Ondansetron HCl (Zofran Inj) 4 mg IVP Q6H PRN PRN Reason: Nausea/Vomiting Last Admin: 01/12/18 08:59 Dose: 4 mg Prednisone (Prednisone Tab) 10 mg PO BID [facility] Last Admin: 01/12/18 09:10 Dose: 10 mg Sevelamer HCl (Renagel) 800 mg PO DAILY [facility] Last Admin: 01/12/18 09:09 Dose: 800 mg - Labs Labs: 01/11/18 07:05 01/11/18 07:05 PT 14.8 SECONDS (9.4-12.5) H 12/29/17 20:10 INR 1.29 (0.93-1.08) H 12/29/17 20:10 APTT 28.3 Seconds (25.1-36.5) 12/29/17 20:10 - Constitutional Appears: Chronically Ill - Head Exam Head Exam: NORMAL INSPECTION - Respiratory Exam Respiratory Exam: Decreased Breath Sounds - Cardiovascular Exam Cardiovascular Exam: +S1, +S2 - GI/Abdominal Exam GI & Abdominal Exam: Soft. absent: Tenderness Assessment and Plan - Assessment and Plan (Free Text) Plan: Assessment Strep viridans bacteremia with no evidence of endocarditis on KADY; S/P treatment of HCAP CHF now on Primacor drip chronic pain syndrome probable arthritis of the hips and knees history of atypical pneumonia HTN dysipidemia ESRD on HD Peptic ulcer disease chronic pain syndrome small brain aneurysm Plan S/P 7 days of Azactam and Doxycycline on Vancomycin day 9 of 28 days; repeat blood cultures are negative reviewed KADY results - continue T-Th-S dosing since that is her dialysis session days Vanco trough today uis 16.5 patient will need weekly CMP, Vanco trough while on antibiotics will continue to monitor clinically
--- NOTE | 2018-01-13 22:04 | PN ---
DATE: 01/13/2018 SUBJECTIVE: The patient is 57 years old, came in with shortness of breath, persistent bacteremia, KADY negative for endocarditis, has been on antibiotic, developed intractable nausea and diarrhea with poor oral intake. She looks very weak, lethargic, sleepy. No more diarrhea. PHYSICAL EXAMINATION VITAL SIGNS: The patient is afebrile, pulse 89, respirations 18, blood pressure 147/69. LUNGS: Bilateral fair airflow. HEART: S1 and S2 audible with systolic murmur. ABDOMEN: Soft, nontender. No rebound, no guarding. NEUROLOGIC: She is awake and alert. She has scab lesion all over her arms and legs. Lower extremity . LABORATORY DATA: WBC is 8, hemoglobin is 7.7, hematocrit 25.3, platelet 39. Chemistry: Sodium 134, potassium 4.4, chloride 100, CO2 of 23, BUN 31, creatinine 4.6, blood sugar of 156. ASSESSMENT AND PLAN: 1. The patient with poor oral intake. 2. Status post streptococcus viridans bacteremia. 3. End-stage renal disease, on hemodialysis. 4. History of hypotension. 5. Pancytopenia. PLAN: The patient received blood transfusion during hemodialysis. We will follow up CBC, CMP. Continue on Protonix. The patient is encouraged to increase her oral intake. She states she is very peculiar and does not like food in the Hospital. She is advised to get from home. Continue to give her small dose of IV fluids. Shawn Gomez MD
[2018-01-14] MEDS: Levalbuterol 1.25 MG/3 ML Inhal Soln UD IH SCH ×4 (01:27→19:53)
[2018-01-14] MEDS: Dextrose 5%/0.45% NS 1,000 ML IV SCH (06:36)
--- NOTE | 2018-01-14 08:11 | CP.PCM.PN ---
Subjective - Date & Time of Evaluation Date of Evaluation: 01/14/18 Time of Evaluation: 06:40 - Subjective Subjective: Lying in bed ,no distress,Sleeping but easily awaken, Reason for consultation and follow up:Cardiac evaluation for shortness of breath , cardiomyopathy, pulmonary hypertension, Seen and examined by me and Dr. Mccullough Objective - Vital Signs/Intake and Output Vital Signs (last 24 hours): Temp Pulse Resp BP Pulse Ox 98.0 F 80 18 140/72 99 01/14/18 06:00 01/14/18 06:00 01/14/18 06:00 01/14/18 06:00 01/14/18 06:00 Intake and Output: 01/14/18 01/14/18 06:59 18:59 Intake Total 980 Output Total 3 Balance 977 - Medications Medications: Current Medications Atorvastatin Calcium (Lipitor) 80 mg PO DIN [facility] Last Admin: 01/13/18 17:34 Dose: 80 mg Carvedilol (Coreg) 3.125 mg PO BID [facility] Last Admin: 01/13/18 17:35 Dose: 3.125 mg Cholestyramine Resin (Questran) 2 gm PO BID [facility] Last Admin: 01/13/18 17:34 Dose: 2 gm Cinacalcet (Sensipar) 30 mg PO DAILY [facility] Last Admin: 01/10/18 10:41 Dose: 30 mg Dicyclomine HCl (Bentyl) 10 mg PO Q6 PRN PRN Reason: GI distress Last Admin: 01/13/18 19:07 Dose: 10 mg Digoxin (Digoxin) 0.125 mg PO MWF [facility] Last Admin: 01/12/18 09:09 Dose: 0.125 mg Hydromorphone HCl (Dilaudid) 1 mg PO Q4H PRN PRN Reason: Pain, moderate (4-7) Last Admin: 01/13/18 20:50 Dose: 1 mg Vancomycin HCl (Vancomycin 1gm) 1 gm in 250 mls @ 167 mls/hr IVPB TTS [facility] PRN Reason: Protocol Last Admin: 01/13/18 14:41 Dose: 167 mls/hr Dextrose/Sodium Chloride (Dextrose 5%/0.45% Ns 1000 Ml) 1,000 mls @ 50 mls/hr IV .Q20H [facility] Last Admin: 01/14/18 06:36 Dose: 50 mls/hr Lactic Acid (Lac-Hydrin 12% Cream (140 G)) 0 ea TOP DAILY [facility] Last Admin: 01/13/18 14:41 Dose: Not Given Lactobacillus Acidophilus (Bacid Acidophilus) 1 cap PO BID [facility] Last Admin: 01/13/18 17:34 Dose: 1 cap Levalbuterol HCl (Xopenex) 1.25 mg IH 0200,0800,1400,2000 [facility] Last Admin: 01/14/18 01:27 Dose: Not Given Lidocaine/Prilocaine (Emla) 1 gm TOP [facility] Last Admin: 01/13/18 14:54 Dose: Not Given Lisinopril (Zestril) 2.5 mg PO DAILY [facility] Last Admin: 01/13/18 14:46 Dose: 2.5 mg Metoclopramide HCl (Reglan) 5 mg IVP Q12 PRN PRN Reason: Nausea/Vomiting Ondansetron HCl (Zofran Inj) 4 mg IVP Q6H PRN PRN Reason: Nausea/Vomiting Last Admin: 01/13/18 08:59 Dose: 4 mg Prednisone (Prednisone Tab) 10 mg PO DAILY [facility] Last Admin: 01/13/18 14:41 Dose: 10 mg - Labs Labs: 01/13/18 08:55 01/11/18 07:05 PT 14.8 SECONDS (9.4-12.5) H 12/29/17 20:10 INR 1.29 (0.93-1.08) H 12/29/17 20:10 APTT 28.3 Seconds (25.1-36.5) 12/29/17 20:10 - Constitutional Appears: No Acute Distress - Eye Exam Eye Exam: Normal appearance - ENT Exam ENT Exam: Mucous Membranes Dry - Respiratory Exam Respiratory Exam: Decreased Breath Sounds, NORMAL BREATHING PATTERN - Cardiovascular Exam Cardiovascular Exam: +S1, +S2 - GI/Abdominal Exam GI & Abdominal Exam: Soft, Normal Bowel Sounds - Exam Additional comments: on hemodialysis (TThS) - Extremities Exam Additional comments: Left AV shunt positive thrill and bruit - Neurological Exam Neurological Exam: Alert, Awake, Oriented x3 - Psychiatric Exam Psychiatric exam: Normal Affect, Normal Mood - Skin Skin Exam: Intact, Normal Color, Warm Assessment and Plan - Assessment and Plan (Free Text) Assessment: A 57 year old female who came in to the ER due to shortness of breath, possibly pneumonia. History of cardiomyopathy,COPD, asthmatic bronchitis, hypertension, hyperlipidemia, GI bleed, ESRD on hemodialysis (Monday, , Monday). current smoker,cholecystectomy,pericardial window for effusion, AV shunt,right hip surgery, 2017-Cardiac cath-normal coronaries. Admitted in 2017 with similar symptoms and Echo showed pulmonary hypertension and was treated with primacor with improvement, ECHO done showed LVEF 55%, Moderate to severe MR/TR, Severe pulmonary hypertension, severely impaired systolic function, No evidence of endocarditis. 01/04/18MUGA scan done -LVEF 31%, Moderate to severe LV dysfunction with diffuse hypokinesis, Normal RV function 01/08/18 KADY done, Severe MR/TR, LVEF 25 %, no evidence of endocarditis.Reevaluate LV function in 3-6 months Plan: Poor oral intake, nausea,does not like hospital food Encouraged fluid intake,Ensure On IV hydration D51/2NSS at 50 cc/hr Cardiac status stable Controlled heart rate and blood pressure On Coreg 3.125 mg BID,Zestril 2.5 mg daily,Digoxin 0.125 mg 3x a week (MWF) Streptococcus viridans bacteremia, on Vancomycin Continue antibiotics per ID Continue all other medications Continue current treatment Will follow up Plan and treatment discussed with Dr. Mccullough
[2018-01-14] MEDS: Lactobacillus Acidophilus 500 MU Cap PO SCH ×2 (09:24→17:45)
[2018-01-14] MEDS: Cholestyramine 4 gm/Pkt UD PO SCH ×2 (09:24→17:45)
[2018-01-14] MEDS: Ammonium Lactate 12% Cream (140 g) TOP SCH (09:25)
--- NOTE | 2018-01-14 10:38 | PN ---
DATE: 01/14/2018 SUBJECTIVE: The patient is seen lying in bed, sleepy, looking very weak on 3R. Oral intake has been poor. The patient had been started on maintenance IV fluids. She did receive transfusion yesterday for hemoglobin of 7.7 predialysis. She does remain on antibiotic therapy for treatment of strep viridans bacteremia. MEDICATIONS: Medication list reviewed. The patient is on acidophilus, Bentyl, Coreg, D5 half-normal saline 50 mL an hour, digoxin, Dilaudid, EMLA cream, Lac-Hydrin, Lipitor, prednisone, Questran, Reglan, Sensipar is on hold, IV vancomycin post dialysis, Xopenex, Zestril and Zofran. OBJECTIVE: INTAKE/OUTPUT: Intake 1325, output hemodialysis. VITAL SIGNS: Blood pressure 140/72, temperature 98, respiratory rate 18 with a pulse of 80. HEENT: Exam, normocephalic and atraumatic. Conjunctiva pale. Sclerae are mildly icteric. NECK: Supple. No neck vein distention. CHEST: Clear to auscultation and percussion with no rales, rhonchi or wheezing. CARDIOVASCULAR: Shows a regular rate and rhythm with MR/TR. EXTREMITIES: Show no lower extremity edema. Positive left upper extremity AV fistula. LABORATORY DATA AND IMAGING: CBC - hgb predialysis yesterday 7.7. The patient received transfusion with dialysis. White blood cell count 8, platelet count remains low at 39,000. Chemistries. Iron saturations were 26%. Electrolytes were normal. BUN and creatinine remain elevated secondary to her chronic kidney disease. Bilirubin level remains mildly elevated at 2.4 with mild elevation of her liver enzymes. Microbiology: Cultures were positive for strep viridans bacteremia back from late December. Followup cultures or negative. Stool C. Diff has been negative on multiple occasions. ASSESSMENT: 1. End-stage renal disease. The patient will continue three times a week dialysis Monday, , Monday. 2. History of chronic obstructive pulmonary disease with exacerbation. This seems to have improved. 3. Strep viridans bacteremia. The patient will complete a course of IV vancomycin therapy. Echocardiograms were negative for endocarditis. 4. History of anemia secondary to chronic kidney disease who continued to receive transfusions on a p.r.n. basis. She will receive Aranesp and IV iron per protocol. 5. Profound thrombocytopenia. Hematology evaluation is in progress. Platelet-bound IgG antibody was negative. The patient is being followed by Dr. Dominguez. 6. History of hypertension. Blood pressure control is acceptable. 7. History of severe cardiomyopathy with mitral regurgitation and tricuspid regurgitation with severe pulmonary hypertension. 8. History of secondary hyperparathyroidism. Calcium corrects to normal. Phosphorus level was low in light of her poor p.o. intake. Binders have been placed on hold. 9. History of renal cyst. 10. History of intermittent diarrhea, none in the last 24 hours. 11. Status post total right hip replacement surgery. PLAN: 1. I am greatly concerned about the patient's continued deterioration. P.o. intake is poor. The patient appears to have lost the will to go on. Nevertheless, we will continue to support the patient with dialysis. We will have the discussion with all consultants. 2. Continue antibiotic therapy for her strep viridans bacteremia. 3. Continue to try and keep hemoglobin in the 9-10 range. This can be done with IV iron, transfusions and Aranesp. 4. Agree with low-dose maintenance IV fluid hydration. Perhaps consider hyperalimentation. Deon Mathews MD [place]
--- NOTE | 2018-01-14 14:10 | CP.PCM.PN ---
Subjective - Date & Time of Evaluation Date of Evaluation: 01/14/18 Time of Evaluation: 11:20 - Subjective Subjective: No fevers, not in distress, has occasional bleeding from the lips area. Objective - Vital Signs/Intake and Output Vital Signs (last 24 hours): Temp Pulse Resp BP Pulse Ox 98.0 F 80 18 140/72 99 01/14/18 06:00 01/14/18 06:00 01/14/18 06:00 01/14/18 06:00 01/14/18 06:00 Intake and Output: 01/14/18 01/14/18 06:59 18:59 Intake Total 980 Output Total 3 Balance 977 - Medications Medications: Current Medications Atorvastatin Calcium (Lipitor) 80 mg PO DIN [facility] Last Admin: 01/13/18 17:34 Dose: 80 mg Carvedilol (Coreg) 3.125 mg PO BID [facility] Last Admin: 01/13/18 17:35 Dose: 3.125 mg Cholestyramine Resin (Questran) 2 gm PO BID [facility] Last Admin: 01/13/18 17:34 Dose: 2 gm Cinacalcet (Sensipar) 30 mg PO DAILY [facility] Last Admin: 01/10/18 10:41 Dose: 30 mg Dicyclomine HCl (Bentyl) 10 mg PO Q6 PRN PRN Reason: GI distress Last Admin: 01/13/18 19:07 Dose: 10 mg Digoxin (Digoxin) 0.125 mg PO MWF [facility] Last Admin: 01/12/18 09:09 Dose: 0.125 mg Hydromorphone HCl (Dilaudid) 1 mg PO Q4H PRN PRN Reason: Pain, moderate (4-7) Last Admin: 01/13/18 20:50 Dose: 1 mg Vancomycin HCl (Vancomycin 1gm) 1 gm in 250 mls @ 167 mls/hr IVPB TTS [facility] PRN Reason: Protocol Last Admin: 01/13/18 14:41 Dose: 167 mls/hr Dextrose/Sodium Chloride (Dextrose 5%/0.45% Ns 1000 Ml) 1,000 mls @ 50 mls/hr IV .Q20H [facility] Last Admin: 01/14/18 06:36 Dose: 50 mls/hr Lactic Acid (Lac-Hydrin 12% Cream (140 G)) 0 ea TOP DAILY [facility] Last Admin: 01/13/18 14:41 Dose: Not Given Lactobacillus Acidophilus (Bacid Acidophilus) 1 cap PO BID [facility] Last Admin: 01/13/18 17:34 Dose: 1 cap Levalbuterol HCl (Xopenex) 1.25 mg IH 0200,0800,1400,2000 [facility] Last Admin: 01/14/18 08:14 Dose: 1.25 mg Lidocaine/Prilocaine (Emla) 1 gm TOP TUTHSA [facility] Last Admin: 01/13/18 14:54 Dose: Not Given Lisinopril (Zestril) 2.5 mg PO DAILY [facility] Last Admin: 01/13/18 14:46 Dose: 2.5 mg Metoclopramide HCl (Reglan) 5 mg IVP Q12 PRN PRN Reason: Nausea/Vomiting Ondansetron HCl (Zofran Inj) 4 mg IVP Q6H PRN PRN Reason: Nausea/Vomiting Last Admin: 01/13/18 08:59 Dose: 4 mg Prednisone (Prednisone Tab) 10 mg PO DAILY [facility] Last Admin: 01/13/18 14:41 Dose: 10 mg - Labs Labs: 01/13/18 08:55 01/11/18 07:05 PT 14.8 SECONDS (9.4-12.5) H 12/29/17 20:10 INR 1.29 (0.93-1.08) H 12/29/17 20:10 APTT 28.3 Seconds (25.1-36.5) 12/29/17 20:10 - Constitutional Appears: Chronically Ill - Head Exam Head Exam: NORMAL INSPECTION - ENT Exam ENT Exam: Mucous Membranes Moist - Neck Exam Neck Exam: absent: Meningismus - Respiratory Exam Respiratory Exam: Decreased Breath Sounds - Cardiovascular Exam Cardiovascular Exam: +S1, +S2 - GI/Abdominal Exam GI & Abdominal Exam: Soft. absent: Tenderness Assessment and Plan - Assessment and Plan (Free Text) Plan: Assessment Strep viridans bacteremia with no evidence of endocarditis on KADY; S/P treatment of HCAP CHF now on Primacor drip chronic pain syndrome probable arthritis of the hips and knees history of atypical pneumonia HTN dysipidemia ESRD on HD Peptic ulcer disease chronic pain syndrome small brain aneurysm Plan S/P 7 days of Azactam and Doxycycline on Vancomycin day 10 of 28 days; repeat blood cultures are negative reviewed KADY results - continue -Th-S dosing since that is her dialysis session days recent Vanco trough is 16.5, which is within target 15-20 range patient will need weekly CMP, Vanco trough while on antibiotics will continue to monitor clinically
--- NOTE | 2018-01-14 18:22 | PN ---
DATE: 01/14/2018 SUBJECTIVE: Patient is 57 years old, seen and examined. She states she is eating little better. She eats homemade food. Had two bowel movements since morning, no abdominal pain. PHYSICAL EXAMINATION: VITAL SIGNS: Patient is afebrile, pulse 80, respirations 18, blood pressure 140/72. LUNGS: Bilateral fair airflow, few occasional expiratory rhonchi. HEART: S1 and S2 audible. ABDOMEN: Soft, nontender, no rebound, no guarding. NEUROLOGICAL: She is awake, alert, oriented, communicative. LABORATORY EXAM: WBC 8, hemoglobin 7.7, hematocrit 25.3, and platelets 39. Chemistry: Iron 57, TIBC is 220. Stool for C. diff is negative. ASSESSMENT: 1. Generalized weakness. 2. Congestive heart failure, dilated cardiomyopathy. 3. Streptococcus viridans bacteremia, status post KADY negative for endocarditis. 4. Thrombocytopenia. 5. History of hypertension. 6. Cardiomyopathy with mitral regurgitation. 7. Cardiac cirrhosis. PLAN: Requested TCU evaluation. If accepted, can be transferred to TCU. We will continue in the meantime with vancomycin 1 g every Monday, , and Monday. Currently, she is on cholestyramine. Patient received blood transfusion during dialysis. Follow up CBC in a.m. to determine the need, if she needs more blood transfusion. Shawn Gomez MD
[2018-01-15] MEDS: Levalbuterol 1.25 MG/3 ML Inhal Soln UD IH SCH ×4 (01:42→21:30)
[2018-01-15 06:55] LABS: EOS # 0.1 (0.0-0.7); EOS % 1.3 % (1.5-5.0); GRAN # 5.16 (1.4-6.5); GRAN % 84.6 % (50.0-68.0); LYMPH # 0.6 (1.2-3.4); LYMPH % 9.8 % (22.0-35.0); MEAN CELL VOLUME 82.9 fl (80.0-105.0); MEAN CORPUSCULAR HGB CONC 31.4 g/dl (31.0-37.0); MONO # 0.3 (0.1-0.6); MONO % 4.3 % (1.0-6.0); RBC 2.69 10^6/uL (3.5-6.1); RED CELL DISTRIBUTION WIDTH 17.8 % (11.5-14.5); WHITE BLOOD COUNT 6.1 10^3/ul (4.5-11.0)
--- NOTE | 2018-01-15 06:58 | CP.PCM.PN ---
<Kelin Graf - Last Filed: 01/15/18 11:14> Subjective - Date & Time of Evaluation Date of Evaluation: 01/15/18 Time of Evaluation: 08:00 - Subjective Subjective: GI Progress Note for Logan Barr PGY2 Patient seen and examined at bedside. There were no acute overnight events as per nursing staff. Patient had 2 episodes of diarrhea this AM. They were non- bloody as per nursing. Patient denies chest pain, shortness of breath, nausea/ vomiting, fever/chills, dysuria or hematuria. Objective - Vital Signs/Intake and Output Vital Signs (last 24 hours): Temp Pulse Resp BP Pulse Ox 98.6 F 86 18 138/68 99 01/14/18 17:38 01/14/18 17:44 01/14/18 17:38 01/14/18 17:44 01/14/18 17:38 Intake and Output: 01/14/18 01/15/18 18:59 06:59 Intake Total 480 480 Output Total 2 Balance 480 478 - Medications Medications: Current Medications Atorvastatin Calcium (Lipitor) 80 mg PO DIN [facility] Last Admin: 01/14/18 17:45 Dose: 80 mg Carvedilol (Coreg) 3.125 mg PO BID [facility] Last Admin: 01/14/18 17:44 Dose: 3.125 mg Cholestyramine Resin (Questran) 2 gm PO BID [facility] Last Admin: 01/14/18 17:45 Dose: 2 gm Cinacalcet (Sensipar) 30 mg PO DAILY [facility] Last Admin: 01/10/18 10:41 Dose: 30 mg Dicyclomine HCl (Bentyl) 10 mg PO Q6 PRN PRN Reason: GI distress Last Admin: 01/13/18 19:07 Dose: 10 mg Digoxin (Digoxin) 0.125 mg PO MWF [facility] Last Admin: 01/12/18 09:09 Dose: 0.125 mg Hydromorphone HCl (Dilaudid) 1 mg PO Q4H PRN PRN Reason: Pain, moderate (4-7) Last Admin: 01/14/18 20:42 Dose: 1 mg Vancomycin HCl (Vancomycin 1gm) 1 gm in 250 mls @ 167 mls/hr IVPB TTS [facility] PRN Reason: Protocol Last Admin: 06/09/18 14:41 Dose: 167 mls/hr Dextrose/Sodium Chloride (Dextrose 5%/0.45% Ns 1000 Ml) 1,000 mls @ 50 mls/hr IV .Q20H [facility] Last Admin: 01/14/18 06:36 Dose: 50 mls/hr Lactic Acid (Lac-Hydrin 12% Cream (140 G)) 0 ea TOP DAILY [facility] Last Admin: 01/14/18 09:25 Dose: Not Given Lactobacillus Acidophilus (Bacid Acidophilus) 1 cap PO BID [facility] Last Admin: 01/14/18 17:45 Dose: 1 cap Levalbuterol HCl (Xopenex) 1.25 mg IH 0200,0800,1400,2000 [facility] Last Admin: 01/15/18 01:42 Dose: 1.25 mg Lidocaine/Prilocaine (Emla) 1 gm TOP TUTHSA [facility] Last Admin: 01/13/18 14:54 Dose: Not Given Lisinopril (Zestril) 2.5 mg PO DAILY [facility] Last Admin: 01/14/18 09:25 Dose: 2.5 mg Metoclopramide HCl (Reglan) 5 mg IVP Q12 PRN PRN Reason: Nausea/Vomiting Ondansetron HCl (Zofran Inj) 4 mg IVP Q6H PRN PRN Reason: Nausea/Vomiting Last Admin: 01/15/18 00:17 Dose: 4 mg Prednisone (Prednisone Tab) 10 mg PO DAILY [facility] Last Admin: 01/14/18 09:24 Dose: 10 mg Sucralfate (Carafate Tab) 1 gm PO 0600,1600 [facility] Last Admin: 01/15/18 06:44 Dose: 1 gm - Labs Labs: 01/13/18 08:55 01/11/18 07:05 PT 14.8 SECONDS (9.4-12.5) H 12/29/17 20:10 INR 1.29 (0.93-1.08) H 12/29/17 20:10 APTT 28.3 Seconds (25.1-36.5) 12/29/17 20:10 - Constitutional Appears: Chronically Ill - Head Exam Head Exam: ATRAUMATIC, NORMAL INSPECTION, NORMOCEPHALIC - Eye Exam Eye Exam: Normal appearance Pupil Exam: NORMAL ACCOMODATION - ENT Exam ENT Exam: Mucous Membranes Moist - Respiratory Exam Respiratory Exam: Clear to Ausculation Bilateral, NORMAL BREATHING PATTERN. absent: Rales, Rhonchi, Wheezes - Cardiovascular Exam Cardiovascular Exam: REGULAR RHYTHM, +S1, +S2. absent: Gallop, Rubs, Murmur - GI/Abdominal Exam GI & Abdominal Exam: Soft, Tenderness (mild epigastric ), Normal Bowel Sounds. absent: Rigid, Mass, Rebound - Extremities Exam Extremities Exam: Normal Inspection. absent: Calf Tenderness, Pedal Edema - Neurological Exam Neurological Exam: Alert, Awake, CN II-XII Intact - Psychiatric Exam Psychiatric exam: Normal Affect, Normal Mood - Skin Skin Exam: Dry, Warm Assessment and Plan - Assessment and Plan (Free Text) Assessment: This is a 57yo female with past medical history of ESRD on HD, biventricular failure with pulm HTN, hepatomegaly with possible chronic liver disease, mildly elevated chromographin A level. Dieulafoy lesion s/p clipping who was admitted for 1. Bacteremia (S. Viridans) 2. Diarrhea (resolved and C.diff negative x 2) 3. ESRD on HD 4. Dilated cardiomyopathy (EF 31%) w/ pulmonary HTN 5. Anemia (chronic) s/p transfusion of 2U PRBC 6. Thrombocytopenia (improved) Plan: Thrombocytopenia improved. Heme is on consult. Diarrhea most likely secondary to antibiotics. Will continue Questran, Carafate and Bentyl. Reglan is tapered down to prn. Continue antibiotics. Continue soft diet. Case seen, discussed and reviewed with Dr. Rosado. Logan Graf PGY2 <Jesus Manuel Rosado V - Last Filed: 01/16/18 00:57> Objective - Vital Signs/Intake and Output Vital Signs (last 24 hours): Temp Pulse Resp BP Pulse Ox 98.1 F 72 18 124/53 L 95 01/16/18 00:15 01/16/18 00:15 01/16/18 00:15 01/16/18 00:15 01/15/18 18:00 Intake and Output: 01/15/18 01/16/18 18:59 06:59 Intake Total 1020 298 Balance 1020 298 - Medications Medications: Current Medications Atorvastatin Calcium (Lipitor) 80 mg PO DIN [facility] Last Admin: 01/15/18 18:18 Dose: 80 mg Carvedilol (Coreg) 3.125 mg PO BID [facility] Last Admin: 01/15/18 18:14 Dose: 3.125 mg Cholestyramine Resin (Questran) 2 gm PO BID [facility] Last Admin: 01/15/18 18:15 Dose: 2 gm Cinacalcet (Sensipar) 30 mg PO DAILY [facility] Last Admin: 01/10/18 10:41 Dose: 30 mg Dicyclomine HCl (Bentyl) 10 mg PO Q6 PRN PRN Reason: GI distress Last Admin: 01/13/18 19:07 Dose: 10 mg Digoxin (Digoxin) 0.125 mg PO MWF [facility] Last Admin: 01/15/18 10:30 Dose: 0.125 mg Hydromorphone HCl (Dilaudid) 1 mg PO Q4H PRN PRN Reason: Pain, moderate (4-7) Last Admin: 01/15/18 21:02 Dose: 1 mg Vancomycin HCl (Vancomycin 1gm) 1 gm in 250 mls @ 167 mls/hr IVPB TTS [facility] PRN Reason: Protocol Last Admin: 01/13/18 14:41 Dose: 167 mls/hr Lactic Acid (Lac-Hydrin 12% Cream (140 G)) 0 ea TOP DAILY [facility] Last Admin: 01/14/18 09:25 Dose: Not Given Lactobacillus Acidophilus (Bacid Acidophilus) 1 cap PO BID [facility] Last Admin: 01/15/18 18:15 Dose: 1 cap Levalbuterol HCl (Xopenex) 1.25 mg IH 0200,0800,1400,2000 [facility] Last Admin: 01/15/18 21:30 Dose: 1.25 mg Lidocaine/Prilocaine (Emla) 1 gm TOP TUTHSA [facility] Last Admin: 01/13/18 14:54 Dose: Not Given Lisinopril (Zestril) 2.5 mg PO DAILY [facility] Last Admin: 01/15/18 10:31 Dose: 2.5 mg Metoclopramide HCl (Reglan) 5 mg IVP Q12 PRN PRN Reason: Nausea/Vomiting Ondansetron HCl (Zofran Inj) 4 mg IVP Q6H PRN PRN Reason: Nausea/Vomiting Last Admin: 01/15/18 00:17 Dose: 4 mg Prednisone (Prednisone Tab) 10 mg PO DAILY [facility] Last Admin: 01/15/18 10:31 Dose: 10 mg Sucralfate (Carafate Tab) 1 gm PO 0600,1600 [facility] Last Admin: 01/15/18 18:18 Dose: 1 gm - Labs Labs: 01/15/18 05:30 01/15/18 06:15 PT 14.8 SECONDS (9.4-12.5) H 12/29/17 20:10 INR 1.29 (0.93-1.08) H 12/29/17 20:10 APTT 28.3 Seconds (25.1-36.5) 12/29/17 20:10 Attending/Attestation - Attestation I have personally seen and examined this patient.: Yes I have fully participated in the care of the patient.: Yes I have reviewed all pertinent clinical information, including history, physical exam and plan: Yes Notes (Text): This is an addendum to GI progress report dictated by the Bomb Loader.The patient was seen and examined earlier. Medical records, lab studies, imagings were reviewed. Last 24 hours events reviewed. Agreed with the above treatment plan as outlined in Bomb Loader 's notes the with the addition of the following patient still complains of his bowel movements On Questran Anemia status post transfusion Improving thrombocytopenia on Carafate Abdomen soft mild tenderness in the right upper quadrant on vanco IV and STEROID 01/16/18 00:56
--- NOTE | 2018-01-15 07:16 | CP.PCM.PN ---
Subjective - Date & Time of Evaluation Date of Evaluation: 01/15/18 Time of Evaluation: 06:30 - Subjective Subjective: Lying in bed ,awake,no distress,denies chest pain Reason for consultation and follow up:Cardiac evaluation for shortness of breath , cardiomyopathy, pulmonary hypertension, Seen and examined by me and Dr. Mcucllough Objective - Vital Signs/Intake and Output Vital Signs (last 24 hours): Temp Pulse Resp BP Pulse Ox 98.6 F 86 18 138/68 99 01/14/18 17:38 01/14/18 17:44 01/14/18 17:38 01/14/18 17:44 01/14/18 17:38 Intake and Output: 01/15/18 01/15/18 06:59 18:59 Intake Total 480 Output Total 2 Balance 478 - Medications Medications: Current Medications Atorvastatin Calcium (Lipitor) 80 mg PO DIN [facility] Last Admin: 01/14/18 17:45 Dose: 80 mg Carvedilol (Coreg) 3.125 mg PO BID [facility] Last Admin: 01/14/18 17:44 Dose: 3.125 mg Cholestyramine Resin (Questran) 2 gm PO BID [facility] Last Admin: 01/14/18 17:45 Dose: 2 gm Cinacalcet (Sensipar) 30 mg PO DAILY [facility] Last Admin: 01/10/18 10:41 Dose: 30 mg Dicyclomine HCl (Bentyl) 10 mg PO Q6 PRN PRN Reason: GI distress Last Admin: 01/13/18 19:07 Dose: 10 mg Digoxin (Digoxin) 0.125 mg PO MWF [facility] Last Admin: 01/12/18 09:09 Dose: 0.125 mg Hydromorphone HCl (Dilaudid) 1 mg PO Q4H PRN PRN Reason: Pain, moderate (4-7) Last Admin: 01/14/18 20:42 Dose: 1 mg Vancomycin HCl (Vancomycin 1gm) 1 gm in 250 mls @ 167 mls/hr IVPB TTS [facility] PRN Reason: Protocol Last Admin: 01/13/18 14:41 Dose: 167 mls/hr Dextrose/Sodium Chloride (Dextrose 5%/0.45% Ns 1000 Ml) 1,000 mls @ 50 mls/hr IV .Q20H [facility] Last Admin: 01/14/18 06:36 Dose: 50 mls/hr Lactic Acid (Lac-Hydrin 12% Cream (140 G)) 0 ea TOP DAILY [facility] Last Admin: 01/14/18 09:25 Dose: Not Given Lactobacillus Acidophilus (Bacid Acidophilus) 1 cap PO BID [facility] Last Admin: 01/14/18 17:45 Dose: 1 cap Levalbuterol HCl (Xopenex) 1.25 mg IH 0200,0800,1400,2000 [facility] Last Admin: 01/15/18 01:42 Dose: 1.25 mg Lidocaine/Prilocaine (Emla) 1 gm TOP TUTHSA [facility] Last Admin: 01/13/18 14:54 Dose: Not Given Lisinopril (Zestril) 2.5 mg PO DAILY [facility] Last Admin: 01/14/18 09:25 Dose: 2.5 mg Metoclopramide HCl (Reglan) 5 mg IVP Q12 PRN PRN Reason: Nausea/Vomiting Ondansetron HCl (Zofran Inj) 4 mg IVP Q6H PRN PRN Reason: Nausea/Vomiting Last Admin: 01/15/18 00:17 Dose: 4 mg Prednisone (Prednisone Tab) 10 mg PO DAILY [facility] Last Admin: 01/14/18 09:24 Dose: 10 mg Sucralfate (Carafate Tab) 1 gm PO 0600,1600 [facility] Last Admin: 01/15/18 06:44 Dose: 1 gm - Labs Labs: 01/13/18 08:55 01/11/18 07:05 PT 14.8 SECONDS (9.4-12.5) H 12/29/17 20:10 INR 1.29 (0.93-1.08) H 12/29/17 20:10 APTT 28.3 Seconds (25.1-36.5) 12/29/17 20:10 - Constitutional Appears: No Acute Distress - Head Exam Head Exam: NORMOCEPHALIC - Eye Exam Eye Exam: Normal appearance - ENT Exam ENT Exam: Mucous Membranes Moist - Respiratory Exam Respiratory Exam: Decreased Breath Sounds, NORMAL BREATHING PATTERN - Cardiovascular Exam Cardiovascular Exam: +S1, +S2 - GI/Abdominal Exam GI & Abdominal Exam: Soft, Normal Bowel Sounds - Exam Additional comments: ESRD Hemodialysis (TThS) - Extremities Exam Extremities Exam: Normal Capillary Refill Additional comments: Left arm AV shunt + bruit/thrill - Neurological Exam Neurological Exam: Alert, Awake, Oriented x3 - Psychiatric Exam Psychiatric exam: Normal Affect, Normal Mood - Skin Skin Exam: Intact, Normal Color, Warm Assessment and Plan - Assessment and Plan (Free Text) Assessment: A 57 year old female who came in to the ER due to shortness of breath, possibly pneumonia. History of cardiomyopathy,COPD, asthmatic bronchitis, hypertension, hyperlipidemia, GI bleed, ESRD on hemodialysis (Monday, , Monday). current smoker,cholecystectomy,pericardial window for effusion, AV shunt,right hip surgery, 2017-Cardiac cath-normal coronaries. Admitted in 2017 with similar symptoms and Echo showed pulmonary hypertension and was treated with primacor with improvement, ECHO done showed LVEF 55%, Moderate to severe MR/TR, Severe pulmonary hypertension, severely impaired systolic function, No evidence of endocarditis. 01/04/18MUGA scan done -LVEF 31%, Moderate to severe LV dysfunction with diffuse hypokinesis, Normal RV function 01/08/18 KADY done, Severe MR/TR, LVEF 25 %, no evidence of endocarditis.Reevaluate LV function in 3-6 months Plan: Cardiac status stable Controlled heart rate and blood pressure Verbalized that she ate dinner and drinking fluids Encouraged fluid intake,Ensure On IV hydration D51/2NSS at 50 cc/hr Post blood transfusion (low hemoglobin) On Coreg 3.125 mg BID,Zestril 2.5 mg daily,Digoxin 0.125 mg 3x a week (MWF) Streptococcus viridans bacteremia, on Vancomycin Continue antibiotics per ID Continue all other medications Continue current treatment Will follow up Plan and treatment discussed with Dr. Mccullough
[2018-01-15 07:22] LABS: ALBUMIN 2.3 g/dL (3.0-4.8); CALCIUM 7.9 mg/dL (8.4-10.5)
--- NOTE | 2018-01-15 08:55 | PN ---
DATE: 01/13/2018 SUBJECTIVE: This patient was seen and evaluated earlier, seen in Dialysis Unit. The patient was very weak. .She able to tolerate the food. The patient states feeling better and diarrhea also has slowed down. PHYSICAL EXAMINATION: VITAL SIGNS: Stable. ABDOMEN: Soft. Tenderness present in the right upper quadrant area present. HEART: S1 and S2 heard. LUNGS: Bilateral air entry present. EXTREMITIES: No cyanosis. No clubbing. Mild edema present. IMPRESSION: This is a 57-year-old patient with ESRD on antibiotics for streptococcal bacteremia, admitted with pneumonia. The patient has a history of massive gastrointestinal bleeding, status post clipping of the fundal bleeding vessel. The patient has pulmonary hypertension , tricuspid regurgitation, severe moderate valvular disease,.Nausea probably multifactorial etiology, probably secondary to the gastroparesis, also rule out any erosive esophagitis, rule out drug induced. . Other possibilities including enteritis . Jesus Manuel Rosado MD [facility]
--- NOTE | 2018-01-15 09:16 | PN ---
DATE: 01/13/2018 SUBJECTIVE: This patient was seen and evaluated . The patient states feeling slightly better. PHYSICAL EXAMINATION: VITAL SIGNS: Stable. ABDOMEN: Soft. There is no mass or tenderness. IMPRESSION: ESRD on HD. Pulmonary HTN TR Status post clipping of juan jose upper GI bleeding. The patient c/o nausea, vomiting and also abdominal pain. The patient does have a chronic abdominal pain, this time s is subsiding. clear liquid diet only short course of reglan Jesus Manuel Rosado MD RD on HD. MTDD
--- NOTE | 2018-01-15 09:16 | PN ---
DATE: 01/14/2018 SUBJECTIVE: This patient was seen and evaluated earlier today. Patient appears to be lethargic. The patient did receive a unit of transfusion yesterday during dialysis. The bowel movements have slow down and is a pasty stool. Her p.o. intake remains poor. PHYSICAL EXAMINATION: GENERAL: Patient is cachectic appearing. VITAL SIGNS: Temperature is afebrile, 98; blood pressure is 140/72; respirations 18; O2 saturation 99. HEENT: Atraumatic and anicteric. NECK: Supple. HEART: S1 and S2 heard. LUNGS: Bilateral air entry present. ABDOMEN: Soft. There was a mild tenderness present in the epigastric and right upper quadrant area. Hepatomegaly present. EXTREMITIES: No edema. The patient has a left upper AV fistula noticed. IMPRESSION: This 49-year-old patient with end-stage renal disease, on hemodialysis, admitted with chronic obstructive pulmonary disease exacerbation and possible pneumonia. Patient was found to have Strep viridans bacteremia, on IV vancomycin now. Patient was on daptomycin before. Patient did develop thrombocytopenia, probably could be drug induced, but is slowly improving. Patient did drop in blood hemoglobin, had transfused yesterday. In view of the thrombocytopenia, patient is off the H2 blockers or proton pump inhibitors. No obvious melena noticed. Patient does have severe pulmonary hypertension, tricuspid regurgitation. Patient had a massive GI bleeding in the past. Had a clipping of the fundal bleeding vessels noticed. It was difficult to ascertain whether it is a part of portal hypertensive gastropathy with bleeding or with a Dieulafoy lesion. Patient did have right and left heart catheterization done in the past. Patient also has a history of elevated chromogranin A levels. RECOMMENDATIONS: We will start the patient on Carafate 1 g every 12 hourly and we will avoid giving the other medications 2 hours before and after the Carafate and the patient is also on Questran. We will continue this. PATIENT HAS MULTIPLE ALLERGIES. Patient is on prednisone. We will continue to closely follow up her care and suggest further management based on the clinical course. Patient is on Reglan on a p.r.n. basis. On pureed diet, continue that. Jesus Manuel Rosado MD
--- NOTE | 2018-01-15 09:18 | PN ---
DATE: 01/15/2018 FOLLOWUP NOTE SUBJECTIVE: She is comfortable in bed, in no acute distress. Appetite has improved. No bleeding from any site. Platelet count has improved to 53,000. She did not require platelet transfusion, there is spontaneous recovery. Antiplatelet antibody negative. HIT assay negative. Medical record reviewed. She did not get heparin flushes during the dialysis. Overall general condition improved. REVIEW OF SYSTEMS: As per HPI. Rest of 12-point review of systems reviewed and negative. PHYSICAL EXAMINATION: GENERAL: Comfortable in bed, in no acute distress, afebrile. VITAL SIGNS: Temperature 98.7, heart rate 80 per minute, respiratory rate 18 per minute, blood pressure 130/72. HEENT: Pallor positive. NECK: No lymphadenopathy. CHEST: Air entry present and equal bilaterally. No added sounds. CARDIOVASCULAR: S1 and S2 normal. No murmur. No gallop. ABDOMEN: Soft, nontender. No hepatosplenomegaly. EXTREMITIES: No edema. NEUROLOGIC: Awake, alert, oriented x3. Communicative. SPINE: Nontender. LABORATORY DATA: White count 6.1, hemoglobin 7, hematocrit 22.3, platelet 53,000. Iron studies within normal limits. Sodium 137, potassium 3.5, creatinine 3.2. Total bilirubin 2.4. MEDICATIONS: Reviewed. ASSESSMENT: 1. Thrombocytopenia. 2. Anemia. 3. Streptococcus bacteremia. 4. Cardiomyopathy. 5. Cardiac cirrhosis. PLAN: She is currently on vancomycin renal doses. Antiplatelet antibody negative. There is spontaneous recovery of the platelet count to 53,000. Thrombocytopenia likely due to infection and end-stage renal disease. We will monitor the platelet count, hemoglobin 7. She received Aranesp last week. We will give one dose of Aranesp, 2 units of blood transfusion with hemodialysis. Currently on IV antibiotic as per ID for Streptococcus bacteremia. She will be transferred to transitional care unit as per Dr. Gomez. Thank you Dr. Gomez for allowing us to participate in Ms. Kraus's care. Chelsy Dominguez MD [facility]
[2018-01-15] MEDS: Lactobacillus Acidophilus 500 MU Cap PO SCH ×2 (10:29→18:15)
[2018-01-15] MEDS: Digoxin 125 mcg (0.125 mg) Tab PO SCH (10:30)
[2018-01-15] MEDS: Cholestyramine 4 gm/Pkt UD PO SCH ×2 (10:31→18:15)
[2018-01-15 10:38] VITALS: PULSE 80
--- NOTE | 2018-01-15 14:31 | CP.PCM.PN ---
Subjective - Date & Time of Evaluation Date of Evaluation: 01/15/18 Time of Evaluation: 12:10 - Subjective Subjective: Comfortable in bed, no fevers. Objective - Vital Signs/Intake and Output Vital Signs (last 24 hours): Temp Pulse Resp BP Pulse Ox 98.2 F 80 18 143/65 98 01/15/18 09:55 01/15/18 10:31 01/15/18 09:55 01/15/18 10:31 01/15/18 09:55 Intake and Output: 01/15/18 01/15/18 06:59 18:59 Intake Total 480 Output Total 2 Balance 478 - Medications Medications: Current Medications Atorvastatin Calcium (Lipitor) 80 mg PO DIN [facility] Last Admin: 01/14/18 17:45 Dose: 80 mg Carvedilol (Coreg) 3.125 mg PO BID [facility] Last Admin: 01/15/18 10:29 Dose: 3.125 mg Cholestyramine Resin (Questran) 2 gm PO BID [facility] Last Admin: 01/15/18 10:31 Dose: 2 gm Cinacalcet (Sensipar) 30 mg PO DAILY [facility] Last Admin: 01/10/18 10:41 Dose: 30 mg Dicyclomine HCl (Bentyl) 10 mg PO Q6 PRN PRN Reason: GI distress Last Admin: 01/13/18 19:07 Dose: 10 mg Digoxin (Digoxin) 0.125 mg PO MWF [facility] Last Admin: 01/15/18 10:30 Dose: 0.125 mg Hydromorphone HCl (Dilaudid) 1 mg PO Q4H PRN PRN Reason: Pain, moderate (4-7) Last Admin: 01/14/18 20:42 Dose: 1 mg Vancomycin HCl (Vancomycin 1gm) 1 gm in 250 mls @ 167 mls/hr IVPB TTS LEX PRN Reason: Protocol Last Admin: 01/13/18 14:41 Dose: 167 mls/hr Dextrose/Sodium Chloride (Dextrose 5%/0.45% Ns 1000 Ml) 1,000 mls @ 50 mls/hr IV .Q20H [facility] Last Admin: 01/14/18 06:36 Dose: 50 mls/hr Lactic Acid (Lac-Hydrin 12% Cream (140 G)) 0 ea TOP DAILY [facility] Last Admin: 01/14/18 09:25 Dose: Not Given Lactobacillus Acidophilus (Bacid Acidophilus) 1 cap PO BID [facility] Last Admin: 01/15/18 10:29 Dose: 1 cap Levalbuterol HCl (Xopenex) 1.25 mg IH 0200,0800,1400,2000 [facility] Last Admin: 01/15/18 07:49 Dose: 1.25 mg Lidocaine/Prilocaine (Emla) 1 gm TOP TUTA [facility] Last Admin: 01/13/18 14:54 Dose: Not Given Lisinopril (Zestril) 2.5 mg PO DAILY [facility] Last Admin: 01/15/18 10:31 Dose: 2.5 mg Metoclopramide HCl (Reglan) 5 mg IVP Q12 PRN PRN Reason: Nausea/Vomiting Ondansetron HCl (Zofran Inj) 4 mg IVP Q6H PRN PRN Reason: Nausea/Vomiting Last Admin: 01/15/18 00:17 Dose: 4 mg Prednisone (Prednisone Tab) 10 mg PO DAILY [facility] Last Admin: 01/15/18 10:31 Dose: 10 mg Sucralfate (Carafate Tab) 1 gm PO 0600,1600 [facility] Last Admin: 01/15/18 06:44 Dose: 1 gm - Labs Labs: 01/15/18 05:30 01/15/18 06:15 PT 14.8 SECONDS (9.4-12.5) H 12/29/17 20:10 INR 1.29 (0.93-1.08) H 12/29/17 20:10 APTT 28.3 Seconds (25.1-36.5) 12/29/17 20:10 - Constitutional Appears: Chronically Ill - Head Exam Head Exam: NORMAL INSPECTION - Neck Exam Neck Exam: absent: Meningismus - Respiratory Exam Respiratory Exam: Decreased Breath Sounds - Cardiovascular Exam Cardiovascular Exam: +S1, +S2 - GI/Abdominal Exam GI & Abdominal Exam: Soft. absent: Tenderness Assessment and Plan - Assessment and Plan (Free Text) Plan: Assessment Strep viridans bacteremia with no evidence of endocarditis on KADY; S/P treatment of HCAP CHF now on Primacor drip chronic pain syndrome probable arthritis of the hips and knees history of atypical pneumonia HTN dysipidemia ESRD on HD Peptic ulcer disease chronic pain syndrome small brain aneurysm Plan S/P 7 days of Azactam and Doxycycline on Vancomycin day 11 of 28 days; repeat blood cultures are negative reviewed KADY results - continue T-Th-S dosing since that is her dialysis session days recent Vanco trough is 16.5, which is within target 15-20 range -will get another Vanco trough tomorrow morning patient will need weekly CMP, Vanco trough while on antibiotics will continue to monitor clinically
--- NOTE | 2018-01-15 16:01 | PN ---
DATE: 01/15/2018 SUBJECTIVE: Seen and examined, lying in bed, states she had big bowel movement, messed up the whole bed today morning, started better. Appetite seemed to be a little better. PHYSICAL EXAMINATION: VITAL SIGNS: She is afebrile, pulse 80, respirations 18, blood pressure 143/65. LUNGS: Bilateral fair airflow. No rhonchi or crackles. HEART: S1, S2 audible. ABDOMEN: Soft, nontender. No rebound. No guarding. NEUROLOGIC: Patient is awake and alert, able to communicate. EXTREMITIES: Bilateral legs, no edema. LABORATORY DATA: WBC 6.1, hemoglobin 7, hematocrit 22.3, platelet of 53. Chemistry: Sodium 137, potassium 3.5, chloride 99, CO2 28, BUN 42, creatinine 3.2 and random blood sugar 104. ASSESSMENT: 1. Intractable diarrhea, etiology still unclear. Stool for Clostridium difficile negative. 2. Poor oral intake. 3. Status post streptococcus viridans bacteremia, status post transesophageal echocardiogram that was unremarkable and negative for endocarditis. PLAN: Taper down steroids. Currently, patient is on cholestyramine. She is getting vancomycin with each dialysis. Patient is anemic. She was given blood transfusion during dialysis and she is going to need two more dialyses tomorrow. Shawn Gomez MD
--- NOTE | 2018-01-15 18:19 | PN ---
DATE: 01/15/2018 SUBJECTIVE: The patient is seen lying in bed. She is awake, but very frail. She denies any chest pain or shortness of breath at present. PHYSICAL EXAMINATION: GENERAL: Middle-aged lady, lying in bed. VITAL SIGNS: Blood pressure 143/66, heart rate 68, respiratory rate 18, temperature 98.2. HEENT: Normocephalic, atraumatic, positive pallor. NECK: Supple, no JVD. LUNGS: Bilateral equal air entry, bilateral equal expansion. CARDIAC: S1 and S2, regular rate and rhythm, no murmur, no rub. ABDOMEN: Soft, nondistended, nontender, bowel sounds present. EXTREMITIES: No lower extremity edema. INTAKE AND OUTPUT: 960/not charted. LABORATORY DATA: WBC 6, hemoglobin 7, hematocrit 22, platelets 53. Sodium 137, potassium 3.5, chloride 99, CO2 of 28, BUN 42, creatinine 3.2, glucose 104, calcium 7.9, total bili 2.4, AST 60, ALT 41, albumin 2.3, corrected calcium is 8.9. Vancomycin trough level 16.6. HIV negative. CURRENT MEDICATIONS: Bacid; Bentyl; Carafate; Coreg; digoxin; Dilaudid; Lipitor; prednisone; Questran; Reglan; Sensipar on hold; vancomycin 1 g Monday, , Saturdays; Xopenex; lisinopril; Zofran. ASSESSMENT: 1. Severe anemia. 2. Status post streptococcal bacteremia. 3. Thrombocytopenia. 4. Hypertension. 5. End-stage renal disease. PLAN: 1. Discontinue IV fluids. 2. Transfuse 2 units of PRBCs 4 hours reach. 3. Dialysis tomorrow. 4. Continue to hold Sensipar. 5. Continue lisinopril for dilated cardiomyopathy. Mansi Rose MD
[2018-01-16] MEDS: Levalbuterol 1.25 MG/3 ML Inhal Soln UD IH SCH ×2 (02:35→07:42)
[2018-01-16 06:53] LABS: HEMOGLOBIN 8.4 g/dL (12.0-16.0); MEAN CELL VOLUME 83.3 fl (80.0-105.0); MEAN CORPUSCULAR HEMOGLOBIN 26.4 pg (25.0-35.0); MEAN CORPUSCULAR HGB CONC 31.7 g/dl (31.0-37.0); RBC 3.18 10^6/uL (3.5-6.1); RED CELL DISTRIBUTION WIDTH 17.3 % (11.5-14.5); WHITE BLOOD COUNT 5.9 10^3/ul (4.5-11.0)
--- NOTE | 2018-01-16 07:08 | CP.PCM.PN ---
Subjective - Date & Time of Evaluation Date of Evaluation: 01/16/18 Time of Evaluation: 06:35 - Subjective Subjective: Awake,no distress,denies chest pain Reason for consultation and follow up:Cardiac evaluation for shortness of breath , cardiomyopathy, pulmonary hypertension, Seen and examined by me and Dr. Mccullough Objective - Vital Signs/Intake and Output Vital Signs (last 24 hours): Temp Pulse Resp BP Pulse Ox 98.2 F 74 18 133/67 95 01/16/18 02:45 01/16/18 02:45 01/16/18 02:45 01/16/18 02:45 01/15/18 18:00 Intake and Output: 01/16/18 01/16/18 06:59 18:59 Intake Total 1313 Balance 1313 - Medications Medications: Current Medications Atorvastatin Calcium (Lipitor) 80 mg PO DIN [facility] Last Admin: 01/15/18 18:18 Dose: 80 mg Carvedilol (Coreg) 3.125 mg PO BID [facility] Last Admin: 01/15/18 18:14 Dose: 3.125 mg Cholestyramine Resin (Questran) 2 gm PO BID [facility] Last Admin: 01/15/18 18:15 Dose: 2 gm Cinacalcet (Sensipar) 30 mg PO DAILY [facility] Last Admin: 01/10/18 10:41 Dose: 30 mg Dicyclomine HCl (Bentyl) 10 mg PO Q6 PRN PRN Reason: GI distress Last Admin: 01/13/18 19:07 Dose: 10 mg Digoxin (Digoxin) 0.125 mg PO MWF [facility] Last Admin: 01/15/18 10:30 Dose: 0.125 mg Hydromorphone HCl (Dilaudid) 1 mg PO Q4H PRN PRN Reason: Pain, moderate (4-7) Last Admin: 01/15/18 21:02 Dose: 1 mg Vancomycin HCl (Vancomycin 1gm) 1 gm in 250 mls @ 167 mls/hr IVPB TTS [facility] PRN Reason: Protocol Last Admin: 01/13/18 14:41 Dose: 167 mls/hr Lactic Acid (Lac-Hydrin 12% Cream (140 G)) 0 ea TOP DAILY [facility] Last Admin: 01/14/18 09:25 Dose: Not Given Lactobacillus Acidophilus (Bacid Acidophilus) 1 cap PO BID [facility] Last Admin: 01/15/18 18:15 Dose: 1 cap Levalbuterol HCl (Xopenex) 1.25 mg IH 0200,0800,1400,2000 [facility] Last Admin: 01/16/18 02:35 Dose: 1.25 mg Lidocaine/Prilocaine (Emla) 1 gm TOP [facility] Last Admin: 01/13/18 14:54 Dose: Not Given Lisinopril (Zestril) 2.5 mg PO DAILY [facility] Last Admin: 01/15/18 10:31 Dose: 2.5 mg Metoclopramide HCl (Reglan) 5 mg IVP Q12 PRN PRN Reason: Nausea/Vomiting Ondansetron HCl (Zofran Inj) 4 mg IVP Q6H PRN PRN Reason: Nausea/Vomiting Last Admin: 01/15/18 00:17 Dose: 4 mg Prednisone (Prednisone Tab) 10 mg PO DAILY [facility] Last Admin: 01/15/18 10:31 Dose: 10 mg Sucralfate (Carafate Tab) 1 gm PO 0600,1600 [facility] Last Admin: 01/16/18 05:31 Dose: 1 gm - Labs Labs: 01/16/18 05:30 01/15/18 06:15 PT 14.8 SECONDS (9.4-12.5) H 12/29/17 20:10 INR 1.29 (0.93-1.08) H 12/29/17 20:10 APTT 28.3 Seconds (25.1-36.5) 12/29/17 20:10 - Constitutional Appears: No Acute Distress, Cachectic - Head Exam Head Exam: NORMOCEPHALIC - Eye Exam Eye Exam: Normal appearance - ENT Exam ENT Exam: Mucous Membranes Moist - Respiratory Exam Respiratory Exam: Decreased Breath Sounds, NORMAL BREATHING PATTERN - Cardiovascular Exam Cardiovascular Exam: +S1, +S2 - GI/Abdominal Exam GI & Abdominal Exam: Soft, Normal Bowel Sounds - Exam Additional comments: ESRD,on hemodialysis - Extremities Exam Extremities Exam: Normal Capillary Refill Additional comments: left arm AV shunt +bruit and thrill - Neurological Exam Neurological Exam: Alert, Awake, Oriented x3 - Psychiatric Exam Psychiatric exam: Normal Affect, Normal Mood - Skin Skin Exam: Intact, Normal Color, Warm Assessment and Plan - Assessment and Plan (Free Text) Assessment: A 57 year old female who came in to the ER due to shortness of breath, possibly pneumonia. History of cardiomyopathy,COPD, asthmatic bronchitis, hypertension, hyperlipidemia, GI bleed, ESRD on hemodialysis (Monday, , Monday). current smoker,cholecystectomy,pericardial window for effusion, AV shunt,right hip surgery, 2017-Cardiac cath-normal coronaries. Admitted in 2017 with similar symptoms and Echo showed pulmonary hypertension and was treated with primacor with improvement, ECHO done showed LVEF 55%, Moderate to severe MR/TR, Severe pulmonary hypertension, severely impaired systolic function, No evidence of endocarditis. 01/04/18MUGA scan done -LVEF 31%, Moderate to severe LV dysfunction with diffuse hypokinesis, Normal RV function 01/08/18 KADY done, Severe MR/TR, LVEF 25 %, no evidence of endocarditis.Reevaluate LV function in 3-6 months Plan: Post transfusion of 2 units PRBC for low H/H For hemodialysis today IV fluids discontinued Claimed no more loose bowel movement Cardiac status stable Controlled heart rate and blood pressure On Coreg 3.125 mg BID,Zestril 2.5 mg daily,Digoxin 0.125 mg 3x a week (MWF) Streptococcus viridans bacteremia, on Vancomycin Continue antibiotics per ID Continue all other medications Continue current treatment Will follow up Plan and treatment discussed with Dr. Mccullough
[2018-01-16 07:34] LABS: ALBUMIN 2.7 g/dL (3.0-4.8)
[2018-01-16 07:35] LABS: ALB/GLOB RATIO 1.1 (1.1-1.8)
[2018-01-16 08:20] VITALS: BP 146/60; PULSE 71; RESP 20; TEMP 98; O2SAT 99
[2018-01-16] MEDS: Lactobacillus Acidophilus 500 MU Cap PO SCH (10:20)
[2018-01-16] MEDS: Ammonium Lactate 12% Cream (140 g) TOP SCH (10:20)
[2018-01-16] MEDS: Lidocaine/Prilocaine 2.5%-2.5% Cream(30 gm) TOP SCH (10:20)
[2018-01-16] MEDS: Cholestyramine 4 gm/Pkt UD PO SCH (10:21)
[2018-01-16] MEDS: Vancomycin 1gm in NS 250ml 1 GM/250 ML BAG IVPB SCH (10:21)
--- NOTE | 2018-01-16 12:02 | CP.PCM.PN ---
<Jennifer Barron - Last Filed: 01/16/18 12:01> Subjective - Date & Time of Evaluation Date of Evaluation: 01/16/18 Time of Evaluation: 10:10 - Subjective Subjective: S&E at bedside, no N/V, abdominal pain better as well as diarrhea, tolerating oral intake, headed down to dialysis and then to be discharged from there as per patient and nursing. No acute overnight events reported. Objective - Vital Signs/Intake and Output Vital Signs (last 24 hours): Temp Pulse Resp BP Pulse Ox 98 F 71 20 146/60 99 01/16/18 08:19 01/16/18 08:19 01/16/18 08:19 01/16/18 08:19 01/16/18 08:19 Intake and Output: 01/16/18 01/16/18 06:59 18:59 Intake Total 1313 1080 Balance 1313 1080 - Labs Labs: 01/16/18 05:30 01/16/18 05:30 PT 14.8 SECONDS (9.4-12.5) H 12/29/17 20:10 INR 1.29 (0.93-1.08) H 12/29/17 20:10 APTT 28.3 Seconds (25.1-36.5) 12/29/17 20:10 - Constitutional Appears: No Acute Distress - Head Exam Head Exam: NORMOCEPHALIC - Eye Exam Eye Exam: Normal appearance. absent: Scleral icterus - ENT Exam ENT Exam: Mucous Membranes Moist - Neck Exam Neck Exam: Normal Inspection - Respiratory Exam Respiratory Exam: NORMAL BREATHING PATTERN. absent: Respiratory Distress - Cardiovascular Exam Cardiovascular Exam: +S1, +S2 - GI/Abdominal Exam GI & Abdominal Exam: Soft, Normal Bowel Sounds. absent: Guarding, Tenderness, Organomegaly, Rebound - Extremities Exam Extremities Exam: absent: Calf Tenderness, Pedal Edema - Neurological Exam Neurological Exam: Alert, Awake, Oriented x3 - Skin Skin Exam: Dry, Warm Assessment and Plan - Assessment and Plan (Free Text) Assessment: Assessment: Bacteremia (S. Viridans) Diarrhea , cdiff negative X2, ESRD on HD Dilated cardiomyopathy (EF 31%) Biventricular failure w/ pulmonary HTN Anemia (chronic) H/O mildly elevated Chromogranin A Thrombocytopenia PLAN: continue diet as tolerated soft renal, heart healthy Trend LFT on Reglan, recommend short course monitor H/H and for overt GI bleeding on IV antibiotics vancomycin as per ID on Probiotics on Prednisone on Questran Off PPI/H2B, low platelets patient to FU with PCP outpatient Seen and discussed with Dr. Rosado. <Jesus Manuel Rosado V - Last Filed: 01/16/18 23:35> Objective - Vital Signs/Intake and Output Vital Signs (last 24 hours): Temp Pulse Resp BP Pulse Ox 98 F 71 20 146/60 99 01/16/18 08:19 01/16/18 08:19 01/16/18 08:19 01/16/18 08:19 01/16/18 08:19 Intake and Output: 01/16/18 01/17/18 18:59 06:59 Intake Total 1080 Balance 1080 - Labs Labs: 01/16/18 05:30 01/16/18 05:30 PT 14.8 SECONDS (9.4-12.5) H 12/29/17 20:10 INR 1.29 (0.93-1.08) H 12/29/17 20:10 APTT 28.3 Seconds (25.1-36.5) 12/29/17 20:10 Attending/Attestation - Attestation I have personally seen and examined this patient.: Yes I have fully participated in the care of the patient.: Yes I have reviewed all pertinent clinical information, including history, physical exam and plan: Yes Notes (Text): This is an addendum to GI progress report dictated by the Jennifer Freedman APN .The patient was seen and examined earlier. Medical records, lab studies, imagings were reviewed. Last 24 hours events reviewed. Agreed with the above treatment plan as outlined in Alexia Barron 's notes the with the addition of the following stools fort Review intake remains poor Abdomen soft mild tenderness in the righdrant. Chronic Follow-up hemoglobin and hematocrit counts improving presently on Carafate Discontinue Reglan Continue antibiotics as per ID 01/16/18 23:32
--- NOTE | 2018-01-16 14:50 | CP.PCM.PN ---
Subjective - Date & Time of Evaluation Date of Evaluation: 01/16/18 Time of Evaluation: 08:30 - Subjective Subjective: For dialysis today, no fevers. Objective - Vital Signs/Intake and Output Vital Signs (last 24 hours): Temp Pulse Resp BP Pulse Ox 98.2 F 74 18 133/67 95 01/16/18 02:45 01/16/18 02:45 01/16/18 02:45 01/16/18 02:45 01/15/18 18:00 Intake and Output: 01/16/18 01/16/18 06:59 18:59 Intake Total 1313 Balance 1313 - Medications Medications: Current Medications Atorvastatin Calcium (Lipitor) 80 mg PO DIN [facility] Last Admin: 01/15/18 18:18 Dose: 80 mg Carvedilol (Coreg) 3.125 mg PO BID [facility] Last Admin: 01/15/18 18:14 Dose: 3.125 mg Cholestyramine Resin (Questran) 2 gm PO BID [facility] Last Admin: 01/15/18 18:15 Dose: 2 gm Cinacalcet (Sensipar) 30 mg PO DAILY [facility] Last Admin: 01/10/18 10:41 Dose: 30 mg Dicyclomine HCl (Bentyl) 10 mg PO Q6 PRN PRN Reason: GI distress Last Admin: 01/13/18 19:07 Dose: 10 mg Digoxin (Digoxin) 0.125 mg PO MWF [facility] Last Admin: 01/15/18 10:30 Dose: 0.125 mg Hydromorphone HCl (Dilaudid) 1 mg PO Q4H PRN PRN Reason: Pain, moderate (4-7) Last Admin: 01/15/18 21:02 Dose: 1 mg Vancomycin HCl (Vancomycin 1gm) 1 gm in 250 mls @ 167 mls/hr IVPB TTS [facility] PRN Reason: Protocol Last Admin: 01/13/18 14:41 Dose: 167 mls/hr Lactic Acid (Lac-Hydrin 12% Cream (140 G)) 0 ea TOP DAILY [facility] Last Admin: 01/14/18 09:25 Dose: Not Given Lactobacillus Acidophilus (Bacid Acidophilus) 1 cap PO BID [facility] Last Admin: 01/15/18 18:15 Dose: 1 cap Levalbuterol HCl (Xopenex) 1.25 mg IH 0200,0800,1400,2000 [facility] Last Admin: 01/16/18 02:35 Dose: 1.25 mg Lidocaine/Prilocaine (Emla) 1 gm TOP [place] [facility] Last Admin: 01/13/18 14:54 Dose: Not Given Lisinopril (Zestril) 2.5 mg PO DAILY [facility] Last Admin: 01/15/18 10:31 Dose: 2.5 mg Metoclopramide HCl (Reglan) 5 mg IVP Q12 PRN PRN Reason: Nausea/Vomiting Ondansetron HCl (Zofran Inj) 4 mg IVP Q6H PRN PRN Reason: Nausea/Vomiting Last Admin: 01/15/18 00:17 Dose: 4 mg Prednisone (Prednisone Tab) 10 mg PO DAILY [facility] Last Admin: 01/15/18 10:31 Dose: 10 mg Sucralfate (Carafate Tab) 1 gm PO 0600,1600 [facility] Last Admin: 01/16/18 05:31 Dose: 1 gm - Labs Labs: 01/16/18 05:30 01/15/18 06:15 PT 14.8 SECONDS (9.4-12.5) H 12/29/17 20:10 INR 1.29 (0.93-1.08) H 12/29/17 20:10 APTT 28.3 Seconds (25.1-36.5) 12/29/17 20:10 - Constitutional Appears: Chronically Ill - Head Exam Head Exam: NORMAL INSPECTION - Respiratory Exam Respiratory Exam: Decreased Breath Sounds - Cardiovascular Exam Cardiovascular Exam: +S1, +S2 - GI/Abdominal Exam GI & Abdominal Exam: Soft. absent: Tenderness Assessment and Plan - Assessment and Plan (Free Text) Plan: Assessment Strep viridans bacteremia with no evidence of endocarditis on KADY; S/P treatment of HCAP CHF now on Primacor drip chronic pain syndrome probable arthritis of the hips and knees history of atypical pneumonia HTN dysipidemia ESRD on HD Peptic ulcer disease chronic pain syndrome small brain aneurysm Plan S/P 7 days of Azactam and Doxycycline on Vancomycin day 12 of 28 days; repeat blood cultures are negative reviewed KADY results - continue T-Th-S dosing since that is her dialysis session days recent Vanco trough is 16.5, which is within target 15-20 range - should get Vanco trough today patient will need weekly CMP, Vanco trough while on antibiotics
--- NOTE | 2018-01-17 15:40 | DS ---
HISTORY OF PRESENT ILLNESS: The patient is 57 years old, seen and examined in dialysis unit. Denies any nausea or vomiting. Eating crackers. She states she was able to . Did not have any loose bowel movement since morning. PHYSICAL EXAMINATION: GENERAL: She is awake, alert, oriented, communicative. VITAL SIGNS: She is afebrile, pulse 71, respirations 20, blood pressure 146/60. LUNGS: Bilateral fair flow. No rhonchi or crackle. HEART: S1 and S2 audible. ABDOMEN: Soft, nontender. No rebound, no guarding. NEUROLOGICAL: The patient is awake and alert, able to communicate. EXTREMITIES: Bilateral legs, no edema. 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 ASSESSMENT: 1. Chronic obstructive pulmonary disease exacerbation, resolved. 2. Streptococcus viridans bacteremia, received 18 days of antibiotics. 3. Transesophageal echocardiogram negative for endocarditis, so was transthoracic echocardiogram. 4. End-stage renal disease, on hemodialysis. 5. Chronic anemia, received 2 blood transfusions yesterday, repeat hemoglobin seems to be okay. 6. Deconditioning and difficulty walking. 7. 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 The plan is the patient will be discharge home today. She will resume her usual medications, that is omeprazole, atorvastatin, as needed, Renagel, nebulizer treatment. Shawn Gomez MD
== END 2018-01-16 11:54 | disposition home or self-care (01) | DRG 871 ==
LOC: ED 19:20 → ERH 22:10 → 2RNO 23:55 → 5RSO 12-31 16:24 → 2RSO 01-05 09:55 → 3RSO 01-09 14:49
PROVIDERS: ADMIT Internal Medicine; ATTEND Internal Medicine
PROC: 5A1D70Z Performance of Urinary Filtration, Intermittent, Less than 6 Hours Per Day (ICD-10-PCS; 2017-12-30)
PROC: 5A1D70Z Performance of Urinary Filtration, Intermittent, Less than 6 Hours Per Day (ICD-10-PCS; 2018-01-02)
PROC: 5A1D70Z Performance of Urinary Filtration, Intermittent, Less than 6 Hours Per Day (ICD-10-PCS; 2018-01-04)
PROC: 5A1D70Z Performance of Urinary Filtration, Intermittent, Less than 6 Hours Per Day (ICD-10-PCS; 2018-01-06)
PROC: 5A1D70Z Performance of Urinary Filtration, Intermittent, Less than 6 Hours Per Day (ICD-10-PCS; 2018-01-08)
PROC: B246ZZ4 Ultrasonography of Right and Left Heart, Transesophageal (ICD-10-PCS; principal; 2018-01-08 10:30)
PROC: 5A1D70Z Performance of Urinary Filtration, Intermittent, Less than 6 Hours Per Day (ICD-10-PCS; 2018-01-09)
PROC: 30233N1 Transfusion of Nonautologous Red Blood Cells into Peripheral Vein, Percutaneous Approach (ICD-10-PCS; 2018-01-11)
PROC: 5A1D70Z Performance of Urinary Filtration, Intermittent, Less than 6 Hours Per Day (ICD-10-PCS; 2018-01-11)
PROC: 5A1D70Z Performance of Urinary Filtration, Intermittent, Less than 6 Hours Per Day (ICD-10-PCS; 2018-01-13)
DX: A41.89 Other specified sepsis (principal); J18.9 Pneumonia, unspecified organism; N18.6 End stage renal disease; D61.811 Other drug-induced pancytopenia; J44.1 Chronic obstructive pulmonary disease with (acute) exacerbation; I13.2 Hypertensive heart and chronic kidney disease with heart failure and with stage 5 chronic kidney disease, or end stage renal disease; I42.0 Dilated cardiomyopathy; J44.0 Chronic obstructive pulmonary disease with (acute) lower respiratory infection; N25.81 Secondary hyperparathyroidism of renal origin; R18.8 Other ascites; J98.11 Atelectasis; E44.0 Moderate protein-calorie malnutrition; Z68.1 Body mass index [BMI] 19.9 or less, adult; R64 Cachexia; I50.82 Biventricular heart failure; R65.20 Severe sepsis without septic shock; D69.59 Other secondary thrombocytopenia; K21.9 Gastro-esophageal reflux disease without esophagitis; I67.1 Cerebral aneurysm, nonruptured; E78.5 Hyperlipidemia, unspecified; D63.1 Anemia in chronic kidney disease; N28.1 Cyst of kidney, acquired; I08.1 Rheumatic disorders of both mitral and tricuspid valves; I27.29 Other secondary pulmonary hypertension; R19.7 Diarrhea, unspecified; G89.4 Chronic pain syndrome; F17.210 Nicotine dependence, cigarettes, uncomplicated; K27.9 Peptic ulcer, site unspecified, unspecified as acute or chronic, without hemorrhage or perforation; R62.7 Adult failure to thrive; K31.84 Gastroparesis; M13.869 Other specified arthritis, unspecified knee; K74.60 Unspecified cirrhosis of liver; M13.859 Other specified arthritis, unspecified hip; Y95 Nosocomial condition; Z96.641 Presence of right artificial hip joint; Z99.2 Dependence on renal dialysis; Z91.040 Latex allergy status; Z88.6 Allergy status to analgesic agent; Z88.0 Allergy status to penicillin; Z88.2 Allergy status to sulfonamides

== ENCOUNTER 2018-02-03 17:35 | Emergency (ER) | payer MEDICARE, BC ==
[2018-02-03 17:44] VITALS: BMI 22.9
--- NOTE | 2018-02-03 17:59 | ED PDOC ---
Arrival/HPI - General Chief Complaint: Respiratory Distress Time Seen by Provider: 02/03/18 17:46 Historian: Patient - History of Present Illness Narrative History of Present Illness (Text): 02/03/18 18:06 57 year old female, rapid response at the dialysis outpt unit prior to Emergency department arrival; pt arrived to the Emergency department with shortness of breath/chest pain complaint while receiving her dialysis today; pt states since this morning, pt has had shortness of breath even at rest; pt developed substernal chest pain/epigastric pain upon arrival to the dialysis facility; pt states her symptoms did not ease during the dialysis and arrived to Emergency department for further eval; pt states no fever/chills/sweats, + decr appetite, + weakness/fatigued, no palpitations, no abd pain, no n/v, no new numbness/tingling; pt has had lower extremity swelling/discoloration chronically, but no changes recently; pt + mild dizziness/lightheadedness; NO LOC; pt denied any bleeding; pt is here for further eval; pt's without other complaints PCP: Dr. Gomez Emergency Operator: Dr. Mccullough Mystery Shopper: Dr. Rose Past medical history : ESRD dialysis dependent (//Sat); COPD no oxygen dependent; chronic pain; anemia Time/Duration: 24 hours Symptom Onset: Sudden Symptom Course: Worsening Quality: Tightness, Cramping Severity Level: Severe Activities at Onset: Rest Context: Other (dialysis unit) Past Medical History - Provider Review Nursing Documentation Reviewed: Yes - Travel History Have you recently traveled outside [place] w/in the past 3 mons?: No - Past History Past History: Non-Contributing - Infectious Disease Hx of Infectious Diseases: None - Tetanus Immunization Tetanus Immunization: Up to Date - Reproductive Menopause: Yes Currently : No - Cardiac Hx Cardiac Disorders: Yes Hx Hypertension: Yes - Pulmonary Hx Chronic Obstructive Pulmonary Disease (COPD): Yes - Neurological Hx Neurological Disorder: No - HEENT Hx HEENT Disorder: Yes Hx Blind: Yes (partial, left eye) - Renal Hx Renal Failure: Yes (Hemodialysis (T, TH,Sat)-SHUNT LEFT UPPER ARM.) - Endocrine/Metabolic Hx Endocrine Disorders: Yes (parathyroid) - Hematological/Oncological Hx Blood Transfusions: Yes - Integumentary Hx Dermatological Disorder: Yes (LEFT UPPER ARM SHUNT) Other/Comment: CALCIPHYLAXIS-DRY ROUND RASH ALL OVER HER BODY,ARMS,LEG. BILATERAL DISCOLORED DARK BROWN SKIN.TIGHT. - Musculoskeletal/Rheumatological Hx Arthritis: Yes (hips) - Gastrointestinal Hx Gastrointestinal Disorders: Yes (GI BLEED,SBO,APPENDICITIS,INGRAM'S ESOPHAGUS) - Genitourinary/Gynecological Hx Genitourinary Disorders: Yes (OLIGURIA) - Psychiatric Hx Psychophysiologic Disorder: Yes (smokes 1/2 pack per day) Hx Substance Use: No - Surgical History Hx Cholecystectomy: Yes Hx Orthopedic Surgery: Yes (bilateral hips 09/24) Other/Comment: left arm fistula/bicep - Anesthesia Hx Anesthesia Reactions: No - Suicidal Assessment Feels Threatened In Home Enviroment: No Family/Social History - Physician Review Nursing Documentation Reviewed: Yes Family/Social History: Unknown Family HX Smoking Status: 1/2 ppd Hx Alcohol Use: No Hx Substance Use: No Hx Substance Use Treatment: No Allergies/Home Meds Allergies/Adverse Reactions: Allergies aspirin Allergy (Severe, Verified 12/21/17 17:41) ANAPHYLAXIS ciprofloxacin Allergy (Severe, Verified 12/21/17 17:41) ANAPHYLAXIS [place] And Derivatives Allergy (Severe, Verified 12/21/17 17:41) ANAPHYLAXIS enalapril Allergy (Severe, Verified 12/21/17 17:41) HIVES heparin Allergy (Severe, Verified 12/21/17 17:41) ANAPHYLAXIS latex Allergy (Severe, Verified 12/21/17 17:41) ANAPHYLAXIS Penicillins Allergy (Severe, Verified 12/21/17 17:41) ANAPHYLAXIS Sulfa (Sulfonamide Antibiotics) Allergy (Severe, Verified 12/21/17 17:41) ANAPHYLAXIS levothyroxine sodium [From Levoxyl] Allergy (Intermediate, Verified 12/21/17 17: 41) RASH acetaminophen Allergy (Mild, Verified 12/21/17 17:41) RASH codeine Allergy (Mild, Verified 12/21/17 17:41) RASH enoxaparin Allergy (Mild, Verified 12/21/17 17:41) RASH iodine Allergy (Mild, Verified 12/21/17 17:41) RASH influenza virus vaccine, specific Allergy (Verified 12/21/17 17:41) hives Home Medications: Home Meds Medication Instructions Recorded Confirmed Esomeprazole Magnesium [Nexium] 40 mg PO DAILY 08/30/17 12/29/17 Ammonium Lactate 12% [Lac-Hydrin 1 applic TOP DAILY 10/10/17 12/29/17 12% Cream (140 g)] Bacitracin, Micronized [Bacitracin] 1 gm MC DAILY 10/10/17 12/29/17 HYDROmorphone [Dilaudid] 1 mg PO Q4H PRN 10/10/17 12/29/17 HYDROmorphone [Dilaudid] 2 mg PO HS 10/10/17 12/29/17 Levalbuterol [Xopenex] 1.25 mg IH Q6H 10/10/17 12/29/17 Sevelamer [Renagel] 800 mg PO DAILY 10/10/17 12/29/17 traMADol [Ultram] 50 mg PO Q8H PRN 10/10/17 12/29/17 Levocetirizine Dihydrochloride 5 mg PO DAILY 12/21/17 12/29/17 Review of Systems - Physician Review All systems were reviewed & negative as marked: Yes - Review of Systems Constitutional: Normal Eyes: Normal ENT: Normal Respiratory: SOB Cardiovascular: Chest Pain Gastrointestinal: Normal. absent: Abdominal Pain, Diarrhea, Nausea, Vomiting Genitourinary Female: Normal. absent: Dysuria, Frequency, Hematuria Musculoskeletal: Normal. absent: Back Pain, Neck Pain Skin: Normal. absent: Rash Neurological: Normal. absent: Headache, Dizziness Endocrine: Normal Hemo/Lymphatic: Normal Psychiatric: Normal Physical Exam - Physical Exam Narrative Physical Exam (Text): 02/03/18 9951 General: alert/awake, GCS = 15, oriented x 3, resting in bed, uncomfortable, cooperative, interactive; + moderate resp distress is noted Head: NC/AT; bi-temporal wasting EYE: PERRLA, EOMI, sclera anicteric, no nystagmus, no photophobia; visual field intact b/l Facial: WNL Oral: uvula/tongue are midline, no exudate/lesions, no drooling/stridor, no dysphonia; poor dentitions; dry oral mucosa NECK: intact ROM, no midline tenderness, no nuchal rigidity, no meningeal signs ; no step off; faint JVD noted Chest: coarse basiliar breath sounds noted b/l, + basiliar wheezing noted b/l, + basiliar rales noted b/l, NO rhonchi; + tachypenia, no accessory muscle use noted/no abd retractions noted Cardiac: +S1, +S2, no m/r/r, + tachycardia Abdominal: +BS, soft/nd/nt, thin patient; no masses/rebound/guarding/rigidity; no cote's sign, no mcburney's point tenderness Extremities: intact ROM, strength 5/5 grossly intact in all limbs, neurovasc intact b/l; + ambulatory; + b/l lower ext pitting edema ~ 1-2/5 up to distal knee; NO tenderness noted, no mitchell's sign noted b/l BACK: no step off, no midline tenderness, NO crepitus, no gross deformities noted; Intact ROM SKIN: cap refill ~ 1 sec, no ulcerations, no petechiae, no rashes; + pallor NEURO: CNII-XII WNL, no facial asymmetries, no slurr speech, oriented x 3 NIH stroke scale ~ 0 Psych: normal insight, normal affect; follows command with ease Vital Signs Reviewed: Yes Vital Signs Temp Pulse Resp BP Pulse Ox 02/03/18 19:46 105 H 18 196/79 H 97 02/03/18 19:10 21 02/03/18 17:42 98.0 F 113 H 17 175/92 H 97 Temperature: Afebrile Blood Pressure: Hypertensive Pulse: Tachycardic Respiratory Rate: Normal Appearance: Positive for: Well-Appearing, Non-Toxic, Ill-Appearing, Uncomfortable. No: Comfortable Pain Distress: None Mental Status: Positive for: Alert and Oriented X 3 - Systems Exam Head: Present: Atraumatic, Normocephalic Medical Decision Making ED Course and Treatment: 02/03/18 18:11 Impression: 57 year old female presents to the emergency department complaining of worsening sob and substernal chest pain. s/p dialysis, + sob x 1 day, + chest pain x hours; weakness Plan: -- VBG -- EKG -- Labs -- Cardiac Enzymes -- Chest X-ray -- Duoneb -- Magnesium Sulfate -- SOLU-Medrol -- US Lower Extremity -- Reassess and disposition Progress Notes: 02/03/18 18:[address] Gomez, who is aware and agrees with Emergency department plan/mgt/txt/diagnosis; if pt requires admission, pt will be transferred to [facility] for further mgt/txt/care; Dr Gomez agrees 1900 pt is currently resting in bed pt continues to have some shortness of breath pt's vital signs stable, remains tachycardic pt states her chest pain is improved pt is awaiting diagnostic results and likely will be transferred for further eval/mgt/txt/monitor 02/03/18 19:[address] Rose, pt's nephrologists, who is made aware and agrees with Emergency department mgt/txt plan; due to pt's ESRD on dialysis status, pt will be transferred for further txt/mgt; Dr Rose states pt may refuse to go to [facility] because they dont like it there? and if pt is transferred to [facility], Dr Rose states she will not see her there, it will be a different nephrologists. I have conveyed my discussions with Dr Gomez/Rose to the patient, pt expressed understanding. 02/03/18 20:[address] Logan Delaney at [facility], who is made aware pt's Emergency department medical complaints and mgt/txt/dx; Will accept pt at [facility] Emergency department for admission/further txt/mgt/likely further dialysis needs pt is made aware of her medical results agrees with admission/TRANSFER TO [facility] Re-evaluation Time: 19:30 Reassessment Condition: Improving,but remains with symptoms - Critical Care Critical Care Minutes: 45 minutes Critical Care Time: Excluding Proc Time Narrative Critical Care (Text): 02/03/18 20:17 critical care time: 45min, excluding procedure time, excluding time teaching residents/students/mid-level providers; including initial eval/diagnosis, diagnostic interpretation, re-eval, consultations, final disposition - Lab Interpretations Lab Results: 02/03/18 18:39 02/03/18 18:39 Lab Results 02/03/18 18:39: Digoxin 0.4 L 02/03/18 18:39: Sodium 142, Chloride 97 L, Potassium 3.3 L, Carbon Dioxide 34 H , Anion Gap 14, BUN 12, Creatinine 1.7 H, Est GFR ( Amer) 37, Est GFR ( Non-Af Amer) 31, Random Glucose 163 H, Calcium 9.3, Magnesium 2.0, Total Bilirubin 2.1 H, AST 37 H D, ALT 25, Alkaline Phosphatase 1127 H, Lactate Dehydrogenase 599, Total Creatine Kinase 43, Troponin I 0.09 D, NT-Pro-B Natriuret Pep 251210 H, Total Protein 6.5, Albumin 3.4, Globulin 3.1, Albumin/ Globulin Ratio 1.1 02/03/18 18:39: pO2 83 H, VBG pH 7.46 H, VBG pCO2 49.0, VBG HCO3 34.8 H, VBG Total CO2 36.3 H, VBG O2 Sat (Calc) 98.3 H, VBG Base Excess 9.4 H, VBG Potassium 3.3 L, Sodium 140.0, Chloride 104.0, Glucose 167 H, Lactate 1.7, FiO2 21.0, Venous Blood Potassium 3.3 L 02/03/18 18:39: PT 12.8 H, INR 1.12 H, APTT 32.9 02/03/18 18:39: WBC 7.2 D, RBC 3.55, Hgb 9.1 L, Hct 29.3 L, MCV 82.5, MCH 25.6 , MCHC 31.1, RDW 18.3 H, Plt Count 125, MPV 9.1, Gran % 78.7 H, Lymph % (Auto) 11.5 L, [place] % (Auto) 8.7 H, Eos % (Auto) 0.4 L, Baso % (Auto) 0.7, Gran # 5.70 , Lymph # (Auto) 0.8 L, [place] # (Auto) 0.6, Eos # (Auto) 0.0, Baso # (Auto) 0.05 02/03/18 18:32: Blood Type O POSITIVE, Antibody Screen Negative, BBK History Checked Patient has bt I have reviewed the lab results: Yes Interpretation: Abnormal lab values (decr H/H (chronic); elevated GLUC; abnl CREAT; elevated BNP) - RAD Interpretation Narrative RAD Interpretations (Text): 02/03/18 20:18 prelim results Chest X-Ray - pulm vasc congestion b/l, worse than prior Radiology Orders: 02/03/18 17:55 DUPLEX LOWER EXTRM VEIN BILAT [US] Stat 02/03/18 17:56 CHEST PORTABLE [RAD] Stat Traveling Inventory Associate: ED Physician - EKG Interpretation EKG Interpretation (Text): 02/03/18 20:18 sinus tach at 115bpm, LAD, no ectopy, inverted T in leads I/L/v5/v6, non- specific ST-t changes, ABNL EKG; unchanged compare with old ekg 12/2017 Interpreted by ED Physician: Yes Type: 12 lead EKG Comparison: Similar to previous EKG - Medication Orders Current Medication Orders: Meropenem (Merrem Iv 1 Gm Premix) 50 mls @ 100 mls/hr IVPB STAT LEX PRN Reason: Protocol Last Admin: 02/03/18 20:15 Dose: 100 mls/hr eMAR Start Stop Document 02/03/18 20:15 LA (Rec: 02/03/18 20:15 LA [id number]) Intravenous Solution Start Date 02/03/18 Start Time 20:15 End Date 02/03/18 End time 20:45 Total Infusion Time 30 Discontinued Medications Albuterol/Ipratropium (Duoneb 3 Mg/0.5 Mg (3 Ml) Ud) 3 ml IH Q15M LEX Stop: 02/03/18 18:31 Last Admin: 02/03/18 18:39 Dose: 3 ml Hydromorphone HCl (Dilaudid) 2 mg PO STAT STA Stop: 02/03/18 20:07 Last Admin: 02/03/18 20:42 Dose: Not Given Hydromorphone HCl (Dilaudid) 2 mg PO STAT STA Stop: 02/03/18 20:16 Last Admin: 02/03/18 20:40 Dose: 2 mg Magnesium Sulfate/Dextrose (Magnesium Sulfate 1 Gm/100 Ml D5w) 1 gm in 100 mls @ 100 mls/hr IVPB ONCE ONE Stop: 02/03/18 19:06 Last Admin: 02/03/18 18:41 Dose: 100 mls/hr eMAR Start Stop Document 02/03/18 18:41 LA (Rec: 02/03/18 18:41 LA [id number]) Intravenous Solution Start Date 02/03/18 Start Time 18:41 End Date 02/03/18 End time 19:41 Total Infusion Time 60 Methylprednisolone (Solu-Medrol) 125 mg IVP STAT STA Stop: 02/03/18 17:56 Last Admin: 02/03/18 18:09 Dose: 125 mg IVP Administration Document 02/03/18 18:09 RL (Rec: 02/03/18 18:16 LA [id number]) Charges for Administration # of IVP Administrations 1 Nitroglycerin (Nitro-Bid 2% Oint) 1 ea TOP STAT STA Stop: 02/03/18 20:13 Last Admin: 02/03/18 20:40 Dose: 1 ea - Scribe Statement The provider has reviewed the documentation as recorded by the Scribe Dora Yang All medical record entries made by the Scribe were at my direction and personally dictated by me. I have reviewed the chart and agree that the record accurately reflects my personal performance of the history, physical exam, medical decision making, and the department course for this patient. I have also personally directed, reviewed, and agree with the discharge instructions and disposition. Disposition/Present on Arrival - Present on Arrival Any Indicators Present on Arrival: No History of DVT/PE: No History of Uncontrolled Diabetes: No Urinary Catheter: No History of Decub. Ulcer: No History Surgical Site Infection Following: None - Disposition Have Diagnosis and Disposition been Completed?: Yes Diagnosis: Shortness of breath, COPD (chronic obstructive pulmonary disease), Acute on chronic diastolic CHF (congestive heart failure), Weakness, Chest pain with moderate risk for cardiac etiology, Elevated blood pressure reading, End stage renal failure on dialysis, Bronchitis Disposition: Transfer [facility] Disposition Time: 19:55 Patient Plan: Transfer To ([facility] - accepted by Dr Damari Delaney) Condition: STABLE Discharge Instructions (ExitCare): Heart Failure (ED), Weakness (ED), Chest Pain (ED), Hypotension (ED), Hypertension (ED) Print Language: GU[place] Referrals: Shawn Gomez MD [Primary Care Provider] - Follow up with primary Forms: [employer] (formerly [employer]) (Azeri)
[2018-02-03] MEDS ORDERED: Magnesium Sulfate 1 gm in D5W 1 GM/100 ML BAG IVPB ONE (18:07)
[2018-02-03] MEDS: Albuterol-Ipratrop 3 mg / 0.5 (3 ml) UD IH SCH ×3 (18:08→18:39)
--- NOTE | 2018-02-03 18:10 | PCM.RRT ---
<Monalisa Arzola - Last Filed: 02/03/18 18:14> COMPUTER SYSTEMS SOFTWARE ENGINEER Nurse Assessment - Situation Date: 02/03/18 Time COMPUTER SYSTEMS SOFTWARE ENGINEER was called: 17:14 (Rapid Response) COMPUTER SYSTEMS SOFTWARE ENGINEER Responder Arrival Time: 17:15 COMPUTER SYSTEMS SOFTWARE ENGINEER Location:: Renal Dialysis COMPUTER SYSTEMS SOFTWARE ENGINEER Reason for Call: Chest Pain COMPUTER SYSTEMS SOFTWARE ENGINEER Called By: RN - IV IV Inserted during COMPUTER SYSTEMS SOFTWARE ENGINEER?: No - Respiratory Oxygen Delivery Method: Nasal Cannula @L/min Oxygen Flow Rate: 4 I.Reason for COMPUTER SYSTEMS SOFTWARE ENGINEER - A) Acute Change in Patient: Subjective: PGY-[address] Mcfarlane COMPUTER SYSTEMS SOFTWARE ENGINEER: chest pain, SOB Ms Kraus 57F with past medical history of ESRD on hemodialysis, hypertension, COPD, chronic anemia, Hx GI bleed/GERD/Dan's, Hx C. diff, chronic pancreatitis, and small brain aneurysm c/o chest pain and SOB. When structural analysis engineer team arrives, Pt was in the bathroom. Staff opened the bathroom, found pt on the wheelchair, in hunched over for chest pain. Pt just finished 3 and 1/2 hours of dialysis. She suddenly felt chest pain at [id number] area, 10/10, pressure like. She was resting when that happened. No similar episodes before. She denies cardiac history, no Hx DC, no stents. She is able to speak in short complete sentence. She was placed on 4L NC, and transport to the ED. I endorsed the patient to the ED physician and certified court/medical interpreter. ROS - (+) CP, (+) SOB, Denies dizziness, diaphoresis, pain radiation, Nausea/vomit - Neurological Status (Select all that apply): Alert, Responsive, Oriented, Verbal, Follows Commands - Respiratory Oxygen Delivery Method: Nasal Cannula @L/min - Constitutional Appears: Non-toxic - Head Head Exam: ATRAUMATIC, NORMAL INSPECTION, NORMOCEPHALIC - Eyes Eye Exam: EOMI, Normal appearance, PERRL. absent: Scleral icterus - Respiratory Exam Respiratory Exam: Clear to Ausculation Bilateral, NORMAL BREATHING PATTERN. absent: Rales, Rhonchi, Wheezes - Cardiovascular Exam Cardiovascular Exam: REGULAR RHYTHM, +S1, +S2. absent: Murmur Additional comments: chest pain non-reproducible - GI/Abdominal Exam GI & Abdominal Exam: Soft, Normal Bowel Sounds. absent: Guarding, Rigid - Neurological Exam Neurological Exam: Alert, Awake, Oriented x3 - Extremities Exam Extremities Exam: Normal Capillary Refill Plan - Assessment of Findings&Treatment Plan Chest pain Shortness of breath Immediately post renal dialysis R/O ACS R/O caused by electrolyte abnormality - O2 PRN - Endorsed to ED for EKG and vitals. s/r/d/w Dr. Mcfarlane <Po Mcfarlane - Last Filed: 02/04/18 10:45> Attending/Attestation - Attestation I have personally seen and examined this patient.: Yes I have fully participated in the care of the patient.: Yes I have reviewed all pertinent clinical information, including history, physical exam and plan: Yes Notes (Text): 02/04/18 10:45 Medical record note made by the resident after discussion with my direction and input after the patient was personally seen and examined by me. I have reviewed the chart and agree that the record accurately reflects by personal performance of the history, physical exam, data review, and medical decision-making, in the course for the patient. I have also personally directed the plan of care.
[2018-02-03 18:48] LABS: BASO # 0.05 K/mm3 (0.0-2.0); BASO % 0.7 % (0.0-3.0); EOS % 0.4 % (1.5-5.0); GRAN # 5.7 (1.4-6.5); GRAN % 78.7 % (50.0-68.0); HEMOGLOBIN 9.1 g/dL (12.0-16.0); LYMPH # 0.8 (1.2-3.4); LYMPH % 11.5 % (22.0-35.0); MEAN CELL VOLUME 82.5 fl (80.0-105.0); MEAN CORPUSCULAR HEMOGLOBIN 25.6 pg (25.0-35.0); MEAN CORPUSCULAR HGB CONC 31.1 g/dl (31.0-37.0); MEAN PLATELET VOLUME 9.1 fl (7.0-11.0); MONO # 0.6 (0.1-0.6); MONO % 8.7 % (1.0-6.0); RBC 3.55 10^6/uL (3.5-6.1); RED CELL DISTRIBUTION WIDTH 18.3 % (11.5-14.5); WHITE BLOOD COUNT 7.2 10^3/ul (4.5-11.0)
[2018-02-03 18:52] LABS: VENOUS BLOOD GAS BASE EXCESS 9.4 mmol/L (0.0-2.0); VENOUS BLOOD GAS PO2 83 mm/Hg (30-55); VENOUS BLOOD PH 7.46 (7.32-7.43)
[2018-02-03 18:55] LABS: INR 1.12 (0.93-1.08); PARTIAL THROMBOPLASTIN TIME 32.9 Seconds (25.1-36.5); PROTHROMBIN TIME 12.8 SECONDS (9.4-12.5)
[2018-02-03 19:15] LABS: TROPONIN I 0.09 ng/mL
[2018-02-03 19:20] LABS: ALB/GLOB RATIO 1.1 (1.1-1.8); ALBUMIN 3.4 g/dL (3.0-4.8); CALCIUM 9.3 mg/dL (8.4-10.5)
[2018-02-03] MEDS ORDERED: Meropenem IV 1 gm in NS 50 ML IVPB SCH (20:00)
[2018-02-03] MEDS ORDERED: Nitroglycerin 2% Ointment Foilpak UD TOP STA (20:12)
[2018-02-03] MEDS ORDERED: Potassium Chloride 20 mEq ER Tab PO STA (21:01)
[2018-02-03 21:03] VITALS: PULSE 114; TEMP 98; O2SAT 99
[2018-02-04 02:54] VITALS: BP 175/80; RESP 18
--- NOTE | 2018-02-04 10:43 | RAD ---
HISTORY: Shortness of breath. COMPARISON: 12/29/2017 FINDINGS: LUNGS: Acute and severe pulmonary edema. Findings not identified on the prior study. PLEURA: No significant pleural effusion identified, no pneumothorax apparent. CARDIOVASCULAR: Cardiomegaly/cardiogenic pulmonary edema. OSSEOUS STRUCTURES: No significant abnormalities. VISUALIZED UPPER ABDOMEN: Normal. OTHER FINDINGS: None. IMPRESSION: Acute cardiogenic pulmonary edema. Concordant results with the preliminary interpretation rendered by the emergency department physician procedure.
--- NOTE | 2018-02-04 17:06 | CARD ---
APPROVED REPORT EKG Measurement Heart [id number] <Conclusion> Sinus tachycardia Possible Left atrial enlargement Left ventricular hypertrophy with repolarization abnormality ST & T wave abnormality, consider lateral ischemia Abnormal ECG
--- NOTE | 2018-02-05 09:10 | US ---
HISTORY: Leg pain and swelling. Evaluate for DVT PHYSICIAN(S): Josh Vanegas MD. TECHNIQUE: Duplex sonography and color-flow Doppler with graded compression were used to evaluate the deep venous systems of both lower extremities. The exam is somewhat limited by edema. FINDINGS: The visualized deep venous systems of both lower extremities are sonographically normal and compressible. Normal wave forms and augmentation are seen. There is no sonographic evidence for deep venous thrombosis in the visualized segments of both lower extremities. IMPRESSION: No sonographic evidence for deep venous thrombosis in the visualized segments of both lower extremities.
== END 2018-02-03 21:25 | disposition short-term general hospital (02) ==
LOC: ED 17:35
DX: J44.9 Chronic obstructive pulmonary disease, unspecified (principal)
CPT/HCPCS: 72HRC; 94640

== ENCOUNTER 2018-05-22 13:06 | Inpatient (IN) | payer MEDICARE, BC ==
[2018-05-22 13:07] VITALS: BMI 22.9
--- NOTE | 2018-05-22 13:38 | ED PDOC ---
Arrival/HPI - General Chief Complaint: Trauma Time Seen by Provider: 05/22/18 13:11 Historian: Patient - History of Present Illness Narrative History of Present Illness (Text): 05/22/18 13:30 57 year old female, with past medical history of ESRD on hemodialysis (T/T/S), hypertension, COPD, chronic anemia, Hx GI bleed/GERD/Dan's, Hx C. diff, chronic pancreatitis, right hip replacement, and small brain aneurysm, presents to the Emergency Department complaining of left hip and bilateral knee pain, left worse than right, s/p fall last night. Patient states she was in the kitchen when her walker slipped on wet floor leading her to fall onto her right side. Patient denies hitting her head or any loss of consciousness. Patient informs application of ice to the area with no improvement to symptoms. As per patient, symptoms exacerbated this morning prompting her to present to the ED for medical evaluation. Patient denies any other associated complaints. Patient denies any fever, chills, nausea, vomiting, diarrhea, abdominal pain, chest pain, shortness of breath, cough, headache, dizziness, neck pain, back pain, or any other complaints. Patient reports not having her dialysis done today. PMD: Dr. Gomez Field Service Technician Poultry: Dr. Rose Time/Duration: Other (last night) Symptom Onset: Gradual Symptom Course: Unchanged Quality: Aching Activities at Onset: Light Context: Home Past Medical History - Provider Review Nursing Documentation Reviewed: Yes - Past History Past History: Non-Contributing - Infectious Disease Hx of Infectious Diseases: None - Tetanus Immunization Tetanus Immunization: Up to Date - Cardiac Hx Congestive Heart Failure: Yes Hx Hypertension: Yes - Pulmonary Hx Chronic Obstructive Pulmonary Disease (COPD): Yes - Neurological Hx Alzheimer's Disease: No Hx Dementia: No Hx Migraine: No Hx Parkinson's Disease: No Hx Seizures: No Hx Transient Ischemic Attacks (TIA): No - HEENT Hx HEENT Disorder: Yes Hx Blind: Yes (partial, left eye) - Renal Hx Renal Disorder: Yes Hx Kidney Stones: No - Endocrine/Metabolic Hx Hyperthyroidism: No Hx Hypothyroidism: Yes - Hematological/Oncological Hx Anemia: Yes Hx Sickle Cell Disease: No - Integumentary Hx Dermatological Disorder: Yes (LEFT UPPER ARM SHUNT) Other/Comment: CALCIPHYLAXIS-DRY ROUND RASH ALL OVER HER BODY,ARMS,LEG. BILATERAL DISCOLORED DARK BROWN SKIN.TIGHT. - Musculoskeletal/Rheumatological Hx Arthritis: Yes - Gastrointestinal Hx Crohn's Disease: Yes Hx Diverticulitis: No Hx Gall Bladder Disease: Yes (GALLSTONES) Hx Pancreatitis: Yes - Genitourinary/Gynecological Hx Sexually Transmitted Diseases: No - Psychiatric Hx Anxiety: No Hx Bipolar Disorder: No Hx Depression: No Hx Post Traumatic Stress Disorder: No Hx Schizophrenia: No Hx Substance Use: No - Surgical History Hx Appendectomy: No Hx Cholecystectomy: Yes Hx Coronary Stent: No Hx Tonsillectomy: Yes - Anesthesia Hx Anesthesia: Yes Hx Anesthesia Reactions: No Hx Malignant Hyperthermia: No - Suicidal Assessment Feels Threatened In Home Enviroment: No Family/Social History - Physician Review Nursing Documentation Reviewed: Yes Family/Social History: No Known Family HX Smoking Status: Former Smoker Hx Alcohol Use: No Hx Substance Use: No Hx Substance Use Treatment: No Allergies/Home Meds Allergies/Adverse Reactions: Allergies aspirin Allergy (Severe, Verified 02/03/18 22:30) ANAPHYLAXIS ciprofloxacin Allergy (Severe, Verified 02/03/18 22:30) ANAPHYLAXIS [place] And Derivatives Allergy (Severe, Verified 02/03/18 22:30) ANAPHYLAXIS enalapril Allergy (Severe, Verified 02/03/18 22:30) HIVES heparin Allergy (Severe, Verified 02/03/18 22:30) ANAPHYLAXIS latex Allergy (Severe, Verified 02/03/18 22:30) ANAPHYLAXIS Penicillins Allergy (Severe, Verified 02/03/18 22:30) ANAPHYLAXIS Sulfa (Sulfonamide Antibiotics) Allergy (Severe, Verified 02/03/18 22:30) ANAPHYLAXIS levothyroxine sodium [From Levoxyl] Allergy (Intermediate, Verified 02/03/18 22:31) RASH acetaminophen Allergy (Mild, Verified 02/03/18 22:31) RASH codeine Allergy (Mild, Verified 02/03/18 22:31) RASH enoxaparin Allergy (Mild, Verified 02/03/18 22:31) RASH iodine Allergy (Mild, Verified 02/03/18 22:31) RASH influenza virus vaccine, specific Allergy (Verified 02/03/18 22:31) hives Home Medications: Home Meds Medication Instructions Recorded Confirmed Esomeprazole Magnesium [Nexium] 40 mg PO DAILY 08/30/17 02/03/18 Ammonium Lactate 12% [Lac-Hydrin 1 applic TOP DAILY 10/10/17 02/03/18 12% Cream (140 g)] HYDROmorphone [Dilaudid] 1 mg PO Q4H PRN 10/10/17 02/03/18 HYDROmorphone [Dilaudid] 2 mg PO HS 10/10/17 02/03/18 Levalbuterol [Xopenex] 1.25 mg IH Q6H 10/10/17 02/03/18 Sevelamer [Renagel] 800 mg PO DAILY 10/10/17 02/03/18 traMADol [Ultram] 50 mg PO Q8H PRN 10/10/17 02/03/18 Levocetirizine Dihydrochloride 5 mg PO DAILY 12/21/17 02/03/18 Review of Systems - Physician Review All systems were reviewed & negative as marked: Yes - Review of Systems Constitutional: absent: Fevers Respiratory: absent: SOB, Cough Cardiovascular: absent: Chest Pain, HERBERT Gastrointestinal: absent: Abdominal Pain, Diarrhea, Nausea, Vomiting Musculoskeletal: Arthralgias (Bilateral knee pain and left hip pain s/p fall.). absent: Back Pain, Neck Pain Neurological: absent: Headache, Dizziness Physical Exam Respiratory Rate: Normal Appearance: Positive for: Well-Appearing, Non-Toxic, Comfortable Pain Distress: None Mental Status: Positive for: Alert and Oriented X 3 - Systems Exam Head: Present: Atraumatic, Normocephalic Pupils: Present: PERRL Extroacular Muscles: Present: EOMI Conjunctiva: Present: Normal Mouth: Present: Moist Mucous Membranes Neck: Present: Normal Range of Motion Respiratory/Chest: Present: Clear to Auscultation, Good Air Exchange. No: Respiratory Distress, Accessory Muscle Use Cardiovascular: Present: Regular Rate and Rhythm, Normal S1, S2. No: Murmurs Abdomen: No: Tenderness, Distention, Peritoneal Signs Back: Present: Normal Inspection. No: CVA Tenderness, Midline Tenderness Upper Extremity: Present: Normal Inspection, Normal ROM, Neurovascularly Intact, Capillary Refill < 2s, Other (AV fistual site to left arm with good thrill and bruit. ). No: Cyanosis, Edema, Tenderness Lower Extremity: Present: NORMAL PULSES, Tenderness (Left hip tenderness. Tenderness to palpation to left knee.), Neurovascularly Intact, Capillary Refill < 2 s. No: Edema, CALF TENDERNESS, Stanislav's Sign Neurological: Present: GCS=15, CN II-XII Intact, Speech Normal Skin: Present: Warm, Dry, Other (bruising to right bicep noted.) Psychiatric: Present: Alert, Oriented x 3, Normal Insight, Normal Concentration Medical Decision Making ED Course and Treatment: 05/22/18 13:27 Impression: 57 year old female presents to the ED complaining of left hip pain and bilateral knee pain secondary to fall. N/V intact distally. No head impact. No posterior deflection or dislocation of knee. Differential Diagnosis included but are not limited to: fracture Plan: -- Ultram -- X-ray of right elbow -- X-ray of hip/pelvis -- X-ray of right humerus -- X-ray of left knee -- X-ray of right knee -- Reassess and disposition Prior Visits: Notes and results from previous visits were reviewed. Progress Notes: 05/22/18 15:21 L Knee fracture. N/V intact distally Other imaging unremarkable. Head atraumatic. No TM erythema or battles sign. No midline cervical spine tenderness, no ALOC, no etoh, no FND, No major distracting injury, neck clear by nexus. Appreciate consult w/ Dr. Gomez: to admit to her service pending Ortho plan Appreciate consult w/ Dr. Pulido: to see pt in ER. 05/22/18 15:[address] Ibarra in person, who is aware and accepts patient under his service. Requests CT of the left knee and a knee immobilizer prior to admission 05/22/18 16:[address] Ibarra, patient reports total hip replacement by Dr. Dominguez and requests his service now. Dr. Ibarra agrees. Will re- consult Dr. Gomez and appreciate consult w/ Dr. Dominguez. 05/22/18 16:[address] Ibarra- Patient will be admitted here secondary to bed unavailability at [facility] [place] and Dr. Dominguez currently away. Patient is aware and agrees. Field Service Technician Poultry at bedside. 05/22/18 16:[address] Gomez, who is aware and agrees with admission. Blood work to be done at dialysis center per ortho given they will access her fistula regardless for dialysis. - RAD Interpretation Narrative RAD Interpretations (Text): 10/16/18 15:21 X-ray of bilateral knees reviewed by radiologist: FINDINGS: There is a comminuted fracture of the left knee. There is a displaced fracture along the medial femoral condyle and a vertical fracture near the intercondylar notch. There is also a large joint effusion. The right knee is unremarkable Findings were discussed with Dr. Fredy Ceron in the emergency department IMPRESSION: Fracture of the left knee. See comments X-ray of Right humerus reviewed by radiologist, shows: FINDINGS: BONES: Normal. No fracture or focal lesion. SOFT TISSUES: Normal. OTHER FINDINGS: None. IMPRESSION: Normal radiographs of right humerus. X-ray of Hip/Pelvis reviewed by radiologist, shows: FINDINGS: There is a chronic deformity of the left femoral head and shortening of the femoral neck. This is most likely a long-standing deformity. There is no evidence of acute fracture. There is a right hip prosthesis in satisfactory position IMPRESSION: No acute findings X-ray of elbow reviewed by radiologist, shows: FINDINGS: BONES: Normal. No fracture. JOINTS: Normal. No osteoarthritis. SOFT TISSUES: Normal. JOINT EFFUSION: None. OTHER FINDINGS: None. IMPRESSION: Unremarkable radiographs of the right elbow. Radiology Orders: 05/22/18 13:27 ELBOW RIGHT 3 VIEWS ROUTINE [RAD] Stat HIP MIN 2V W/ PELVIS LT [RAD] Stat HUMERUS RIGHT [RAD] Stat KNEE LEFT 2 VIEWS (AP & LAT) [RAD] Stat KNEE RIGHT 2 VIEWS (AP & LAT) [RAD] Stat Land Acquisition Specialist: Radiologist - Scribe Statement The provider has reviewed the documentation as recorded by the Scribe Alisha Ryan. All medical record entries made by the Debraibmarek were at my direction and personally dictated by me. I have reviewed the chart and agree that the record accurately reflects my personal performance of the history, physical exam, medical decision making, and the department course for this patient. I have also personally directed, reviewed, and agree with the discharge instructions and disposition. Disposition/Present on Arrival - Present on Arrival Any Indicators Present on Arrival: No History of DVT/PE: No History of Uncontrolled Diabetes: No Urinary Catheter: No History of Decub. Ulcer: No History Surgical Site Infection Following: None - Disposition Have Diagnosis and Disposition been Completed?: Yes Diagnosis: Knee fracture, left Disposition: HOSPITALIZED Disposition Time: 15:21 Patient Problems: Current Active Problems Problem Status Onset Knee fracture, left Acute Condition: GOOD Forms: [employer] (Hungarian)
--- NOTE | 2018-05-22 15:01 | RAD ---
Date of service: 05/22/2018 PROCEDURE: Bilateral knees HISTORY: fall COMPARISON: TECHNIQUE: Two views of each knee FINDINGS: There is a comminuted fracture of the left knee. There is a displaced fracture along the medial femoral condyle and a vertical fracture near the intercondylar notch. There is also a large joint effusion. The right knee is unremarkable Findings were discussed with Dr. Fredy Ceron in the emergency department IMPRESSION: Fracture of the left knee. See comments
--- NOTE | 2018-05-22 15:02 | RAD ---
Date of service: 05/22/2018 PROCEDURE: Pelvis and left hip HISTORY: fall COMPARISON: TECHNIQUE: Three views FINDINGS: There is a chronic deformity of the left femoral head and shortening of the femoral neck. This is most likely a long-standing deformity. There is no evidence of acute fracture. There is a right hip prosthesis in satisfactory position IMPRESSION: No acute findings
--- NOTE | 2018-05-22 15:03 | RAD ---
PROCEDURE: Radiographs of the right humerus. HISTORY: fall COMPARISON: None. FINDINGS: BONES: Normal. No fracture or focal lesion. SOFT TISSUES: Normal. OTHER FINDINGS: None. IMPRESSION: Normal radiographs of right humerus.
--- NOTE | 2018-05-22 15:04 | RAD ---
Date of service: 05/22/2018 PROCEDURE: Radiographs of the right elbow. HISTORY: fall COMPARISON: No prior. FINDINGS: BONES: Normal. No fracture. JOINTS: Normal. No osteoarthritis. SOFT TISSUES: Normal. JOINT EFFUSION: None. OTHER FINDINGS: None. IMPRESSION: Unremarkable radiographs of the right elbow.
[2018-05-22] MEDS ORDERED: Bupivacaine 0.5% Inj(30mL) ONE (15:53)
--- NOTE | 2018-05-22 16:55 | CT ---
Date of service: 05/22/2018 PROCEDURE: CT of the left knee without contrast HISTORY: L knee fx COMPARISON: Plain film same day TECHNIQUE: Radiation dose: Total exam DLP = 370 mGy-cm. This CT exam was performed using one or more of the following dose reduction techniques: Automated exposure control, adjustment of the mA and/or kV according to patient size, and/or use of iterative reconstruction technique. FINDINGS: There is a wide fracture line extending into the articular surface of the medial femoral condyle and intercondylar notch. The fracture is comminuted and involves the medial surface of the medial femoral condyle. The lateral side is intact. The patella is intact. There is a moderate-sized joint effusion IMPRESSION: There is a wide fracture line extending into the articular surface of the medial femoral condyle and intercondylar notch. The fracture is comminuted and involves the medial surface of the medial femoral condyle.
[2018-05-22 17:29] LABS: BASO # 0.03 K/mm3 (0.0-2.0); BASO % 0.6 % (0.0-3.0); EOS # 0.1 (0.0-0.7); EOS % 2.5 % (1.5-5.0); GRAN # 3.74 (1.4-6.5); GRAN % 70.4 % (50.0-68.0); HEMOGLOBIN 10.1 g/dL (12.0-16.0); LYMPH % 19.1 % (22.0-35.0); MEAN CELL VOLUME 83.7 fl (80.0-105.0); MEAN CORPUSCULAR HEMOGLOBIN 25.8 pg (25.0-35.0); MEAN CORPUSCULAR HGB CONC 30.8 g/dl (31.0-37.0); MONO # 0.4 (0.1-0.6); MONO % 7.4 % (1.0-6.0); RBC 3.92 10^6/uL (3.5-6.1); RED CELL DISTRIBUTION WIDTH 18.6 % (11.5-14.5); WHITE BLOOD COUNT 5.3 10^3/ul (4.5-11.0)
[2018-05-22 17:39] LABS: ALB/GLOB RATIO 1.3 (1.1-1.8); ALBUMIN 3.6 g/dL (3.0-4.8); CALCIUM 9.5 mg/dL (8.4-10.5)
[2018-05-22] MEDS: Levalbuterol 1.25 MG/3 ML Inhal Soln UD IH SCH (20:01)
[2018-05-22 23:01] LABS: BASO # 0.01 K/mm3 (0.0-2.0); BASO % 0.3 % (0.0-3.0); EOS # 0.2 (0.0-0.7); EOS % 4.6 % (1.5-5.0); GRAN # 2.53 (1.4-6.5); GRAN % 65.1 % (50.0-68.0); HEMOGLOBIN 10.4 g/dL (12.0-16.0); LYMPH # 0.8 (1.2-3.4); LYMPH % 21.3 % (22.0-35.0); MEAN CELL VOLUME 82.7 fl (80.0-105.0); MEAN CORPUSCULAR HEMOGLOBIN 26.1 pg (25.0-35.0); MEAN CORPUSCULAR HGB CONC 31.5 g/dl (31.0-37.0); MEAN PLATELET VOLUME 8.9 fl (7.0-11.0); MONO # 0.3 (0.1-0.6); MONO % 8.7 % (1.0-6.0); RBC 3.99 10^6/uL (3.5-6.1); RED CELL DISTRIBUTION WIDTH 18.4 % (11.5-14.5); WHITE BLOOD COUNT 3.9 10^3/ul (4.5-11.0)
[2018-05-22 23:04] LABS: INR 1.15; PARTIAL THROMBOPLASTIN TIME 31.6 Seconds (25.1-36.5); PROTHROMBIN TIME 13.1 SECONDS (9.4-12.5)
[2018-05-22 23:15] LABS: ALB/GLOB RATIO 1.3 (1.1-1.8); ALBUMIN 3.7 g/dL (3.0-4.8); CALCIUM 9.4 mg/dL (8.4-10.5)
[2018-05-23] MEDS: Levalbuterol 1.25 MG/3 ML Inhal Soln UD IH SCH ×3 (01:38→13:18)
--- NOTE | 2018-05-23 04:10 | CON ---
DATE: 05/22/2018 REFERRING PROVIDER: Dr. Gomez and Dr. Paresh Ibarra. REASON FOR CONSULTATION: Provide dialysis services for a patient well known to me, who presents with a fall 1 day ago. The patient has a left knee fracture. She is being admitted for surgical repair of the fracture. The patient requires dialysis today. HISTORY OF PRESENT ILLNESS The patient is a 49-year-old female with a history of end-stage renal disease of many years' duration, on chronic dialysis. The patient dialyzes via a left upper extremity AV fistula. History of right hip surgery total right hip replacement surgery earlier this year. History of hypertension, history of anemia secondary to chronic kidney disease, history of secondary hyperparathyroidism. History of COPD secondary to long history of cigarette smoking history of asthma. History of GI bleeding GI AVM, GERD, peptic ulcer disease. History of MR/TR with pulmonary hypertension and hyperlipidemia. The patient states that she was doing relatively well until yesterday when she was walking in her kitchen, apparently, there was water on the floor, and the patient slipped. She initially hit her right knee, but her left knee came crashing down to the floor. She sustained a fracture of her left knee, which is seen on x-ray in the emergency room. The patient is being admitted to the hospital for surgical repair of her left knee fracture. She is due for dialysis today. Her labs are pending at the time of dictation. PAST MEDICAL HISTORY: Significant for end-stage renal disease, hypertension, anemia secondary to chronic kidney disease, secondary hyperparathyroidism, COPD, asthma, past history of GI bleeding. History of GI AVM, GERD, history of peptic ulcer disease, history of mild cardiomyopathy, history of MR/TR. History of pulmonary hypertension and hyperlipidemia. The patient has a working left upper extremity AV fistula. MEDICATIONS AT HOME: Include that of Ultram, Renagel, levocetirizine, Xopenex, Dilaudid p.r.n., Nexium, digoxin, Coreg, Lipitor, Lac-Hydrin. ALLERGIES: THE PATIENT HAS MULTIPLE ALLERGIES. HE IS ALLERGIC TO ASPIRIN, CIPROFLOXACIN, CITRUS AND DERIVATIVES, ENALAPRIL, HEPARIN, LATEX, PENICILLIN, SULFA, LEVOXYL, TYLENOL, CODEINE, ENOXAPARIN, IODINE, AND INFLUENZA VIRUS VACCINE. Medications in hospital are yet to be ordered. SOCIAL HISTORY: Past history of cigarette smoking for many years. The patient quit earlier this year. No history of alcohol use. No history of substance abuse. FAMILY HISTORY: Reviewed with the patient, noncontributory and unchanged from past records. REVIEW OF SYSTEMS: Ten plus systems reviewed with the patient. All negative except for what is noted above. General: The patient states appetite and weight have remained stable. ENT: Denies any hearing or visual problems. Pulmonary: Intermittent bouts of shortness of breath with exacerbation of COPD or asthma. Cardiac: History of mild cardiomyopathy with valvular heart disease and pulmonary hypertension. GI: No nausea, vomiting, diarrhea, constipation, or at present abdominal pain. : No significant urine output. History of end-stage renal disease. LEARNING SUPPORT AIDE: Postmenopausal. Endocrine: History of secondary hyperparathyroidism. No history of diabetes. Musculoskeletal: No issues other than what is noted above. Neuro: No past history of CVA, TIA, seizures, or syncope. He might have history of anemia secondary to chronic kidney disease. Psychiatric history is negative. PHYSICAL EXAMINATION: The patient is currently seen in the ER. She is awaiting transfer to dialysis. Blood pressure 146/74, temperature 98.3, respiratory rate 18 with a pulse of 83. HEENT: Exam shows her to be normocephalic, atraumatic. Conjunctivae are pale. Sclerae are nonicteric. Pupils equal and reactive to light and accommodation. Extraocular muscles are intact. Posterior pharynx is normal. Neck: Supple. No neck vein distention or thyromegaly. No lymphadenopathy. No bruits. Chest: Clear to auscultation and percussion with no rales. No rhonchi. No wheezing. Cardiovascular: Shows a regular rate and rhythm with MR/TR. No S3, no S4, no rub. Abdomen is soft. Bowel sounds are normal. No rebound, no guarding, no masses. Back: No CVAT. No spinal tenderness. Extremities: Show a working AV fistula left upper extremity. Positive thrill. Positive bruit. Lower extremity, the patient has an immobilizer on her left knee. She has trace to 1+ pitting edema, left greater than right lower extremity. Diminished lower extremity pulses bilaterally secondary to edema. No cyanosis or clubbing. Neuro: Shows her to be alert, oriented x3 with no gross focal motor or sensory deficits noted. LABORATORY DATA AND IMAGING STUDIES: No labs available for comment. IMAGING STUDIES: X-ray of her left knee shows a comminuted fracture of the left knee. Displaced fracture along the medial femoral condyle and a vertical fracture near the intercondylar notch. Right knee is unremarkable. Remainder of the x-rays are unremarkable. X-ray of her hip and pelvis showed no acute findings. X-ray of the right humerus is unremarkable. X-ray of the right elbow is unremarkable. No chest x-ray available for comment. No EKG available for comment at this time. ASSESSMENT: 1. End-stage renal disease. The patient will receive her routine dialysis today. She will receive dialysis without heparin for two reason, she is allergic to heparin and because she is going to the operating room tomorrow to have repair of her left knee fracture with Dr. Paresh Ibarra. The patient will be dialyzed down to her dry weight, which is 57.5. We will try and take off 2.5 to after 3 kg of fluid to render her euvolemic in preparation for tomorrow's surgery. 2. History of hypertension. Present blood pressure is controlled. The patient remains on Coreg alone for blood pressure control. 3. History of anemia secondary to chronic kidney disease. The patient will receive Aranesp per protocol with dialysis. There is no history of secondary hyperparathyroidism. Check phosphorus levels. The patient will continue on Renagel as ordered in the past. 4. History of asthma and chronic obstructive pulmonary disease. The patient is currently off cigarettes, and this problem appears to be stable. The patient continues on inhalation therapy as necessary. 5. Past history of gastrointestinal bleeding, not active at present. 6. History of hyperlipidemia. The patient will continue on statin therapy. 7. History of pulmonary hypertension with mild cardiomyopathy MR/TR, currently stable. 8. Status post trip and fall at home. No evidence for syncope. The patient has a left knee fracture. As discussed with Dr. Paresh Ibarra, she is scheduled for the operating room tomorrow. She will receive dialysis tonight. PLAN: 1. Discussed with ER staff, discussed with the patient, discussed with Dr. Paresh Ibarra, discussed with dialysis staff. We will arrange for dialysis to take place as an inpatient post admission to the hospital. 2. No heparin with dialysis in light of the fact that she is sensitive to heparin and in light of the fact that she will be going to the operating room tomorrow. 3. Discussed with Dr. Paresh Ibarra the possibility of using Eliquis assuming that she has no sensitivity to the medication and low-dose to prevent DVT in the postoperative setting. 4. Continue renal diet and binder therapy. 5. Continue present beta edith therapy. 6. We will follow the patient along with you. Thank you for letting me partake and share in the care of our mutual patient. Deon Mathews MD
[2018-05-23] MEDS ORDERED: Pneumococcal 23-Valent Vaccine IM ONE (04:26)
--- NOTE | 2018-05-23 04:29 | HP ---
HISTORY OF PRESENT ILLNESS: The patient is 57 years old, known to me from her previous admission. The patient came to emergency room with complaint of pain in the left hip and knee pain, left more than the right since she fell last night. She was cooking something in the kitchen and was walking out of the kitchen in the walker and her walker slipped and she fell. She did not hit her head, did not lose consciousness, did not have seizure-like activity. She was able to walk, but was painful, so she stayed in bed because she was due for dialysis anyway, so she waited until the morning. So instead of going to dialysis, she came to emergency room for further evaluation. PAST MEDICAL HISTORY: Her past medical history is very long and complicated. 1. She has end-stage renal disease, on hemodialysis. 2. Hypertension. 3. History of GI bleed secondary to AVM. 4. History of COPD because of chronic smoking. 5. Chronic anemia. 6. History of C. diff. 7. Status post bilateral congenital chronic hip dislocation ended up having a right hip replacement earlier this year by Dr. Dominguez. 8. History of brain aneurysm that is being watched at [facility] in [place]. ALLERGIES: THE PATIENT IS ALLERGIC TO MULTIPLE MEDICATIONS INCLUDING ASPIRIN, CIPRO, CITRUS DERIVATIVE, ENALAPRIL, HEPARIN, LATEX, PENICILLIN, SULFA, LEVOTHYROXINE, ACETAMINOPHEN, CODEINE, ENOXAPARIN, IODINE AND FLU VACCINE. MEDICATIONS AT HOME: She is on tramadol, Xyzal, Xopenex, hydromorphone, Nexium, Coreg, digoxin, atorvastatin. SOCIAL HISTORY: She lives with her boyfriend, actively smokes almost half a pack per day for the last 30 years. ASSESSMENT: 1. Status post fall. 2. Left knee total femur condylar fracture in the knee joint. 3. End-stage renal disease, on hemodialysis. 4. Hypertension. 5. Gastroesophageal reflux disease. 6. Status post cholecystectomy. 7. 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 PLAN: The patient will be admitted. Dr. Ibarra is contacted. We will start her on usual medication. Cardiology evaluation by Dr. Mccullough has been requested. The patient will receive hemodialysis today. Probably, he will be going to OR tomorrow. Shawn Gomez MD [facility] # [id number]
--- NOTE | 2018-05-23 07:16 | CON ---
DATE: ORTHOPEDIC CONSULT REPORT HISTORY OF PRESENT ILLNESS: A 57-year-old female slipped and fell at home 36 hours ago, sustained a displaced medial condylar fracture of her left knee, intraarticular, with a knee effusion. Fracture is closed. Good neurovascular status. The patient will require ORIF of her left distal femur medial femoral condyle. We are going to put her in a knee immobilizer for now and no pillow under the knee, as she has been at home that way, and she has had an effusion, but we will release it in the OR. Hopefully, we could plan for surgery on 05/23/2018. The patient came in to the ER, 05/22/2018, and she did this 36 hours ago, and she is going to be prepared for surgery with Dr. Machuca, Dr. Mccullough and Dr. Mathews.. FINAL DIAGNOSES: 1. Displaced medial femoral condylar fracture, left knee. For now, we put her in a knee immobilizer and get her cleared for ORIF on 05/23/2018. Jarrett Ibarra DO
--- NOTE | 2018-05-23 10:08 | RAD ---
Date of service: 05/23/2018 HISTORY: PRE-OP COMPARISON: 02/03/2018 FINDINGS: LUNGS: Minimal interstitial changes PLEURA: No significant pleural effusion identified, no pneumothorax apparent. CARDIOVASCULAR: Moderate cardiomegaly. Minimal aortic calcification OSSEOUS STRUCTURES: No significant abnormalities. VISUALIZED UPPER ABDOMEN: Normal. OTHER FINDINGS: None. IMPRESSION: No active disease.
--- NOTE | 2018-05-23 11:35 | CARD ---
APPROVED REPORT Date of service: 05/23/2018 EKG Measurement Heart [id number] <Conclusion> Normal sinus rhythm Voltage criteria for left ventricular hypertrophy T wave abnormality, consider lateral ischemia Prolonged QT Abnormal ECG
--- NOTE | 2018-05-23 13:37 | PN ---
DATE: 05/23/2018 SUBJECTIVE: A 57-year-old female who sustained a displaced medial distal femoral condyle fracture with comminution at home approximately 2 days ago. She is currently on renal dialysis for renal failure. She had dialysis yesterday and labs are within normal limits, was just cleared by Dr. Mathews, customer service specialist and Dr. Mccullough, the geophysical support specialist and Dr. Gomez, the medical doctor. We plan to do surgery this afternoon at probably 1 o'clock, it is 8:30 right now in the morning and we will plan to do an anteromedial approach to the left knee where the medial femoral condyle is fractured, so best as kind of approach and secure the fracture afterward reduce with interfragmentary screws and a low profile distal femoral plate, this will allow her to heal without displacement and decrease the chance of arthritis. She was told of the risks and benefits and the main problem is that she lives upstairs and has to do couple of flights of stairs, but we will try to work that out and keep her in TCU postop until she regains her strength and mobility, but she cannot put weight on that left lower extremity. She will have to walk with a walker. FINAL DIAGNOSIS: Displaced intraarticular fracture of medial femoral condyle, left knee. PLAN: We will plan to do the ORIF today 05/23/2018 for internal fixation. Jarrett Ibarra DO
[2018-05-23] MEDS ORDERED: Bupivacaine 0.5% 50 ML IJ ONE (15:33)
[2018-05-23] MEDS ORDERED: Midazolam 2 MG/2 ML VIAL ONE (15:44)
[2018-05-23] MEDS ORDERED: Phenylephrine 10 mg/ml Inj ONE (15:46)
[2018-05-23] MEDS ORDERED: Etomidate 20 mg/10ml Inj IV ONE (15:46)
[2018-05-23] MEDS: Bupivacaine Liposomal Inj 20 ml ONE ×2 (17:07→18:30)
[2018-05-23] MEDS ORDERED: Vancomycin 1 g Inj ONE (17:57)
--- NOTE | 2018-05-23 17:59 | PN ---
DATE: 05/23/2018 SUBJECTIVE: The patient is 57 years old, who had a fall yesterday and sustained a left knee injury. Being prepared for surgery today by Dr. Ibarra. PHYSICAL EXAMINATION: GENERAL: She is awake and alert, able to communicate. VITAL SIGNS: She is afebrile, pulse 52, respirations 18, blood pressure 99/60. LUNGS: Bilateral fair airflow. No rhonchi or crackle. HEART: S1 and S2 audible. ABDOMEN: Soft. Nontender. No rebound. No guarding. NEUROLOGICAL: The patient is awake and alert, able to communicate. EXTREMITIES: Left knee is an immobilizer. LABORATORY EXAM: WBC 3,9, hemoglobin 10.4, hematocrit 33, platelet Of 97, PT 13.1, INR 1.15. Chemistry: Sodium 135, potassium 3.6, chloride 101, CO2 of 22, BUN 22, creatinine 3.5, blood sugar of 77. ASSESSMENT: 1. Status post fall. 2. Left knee comminuted fracture. 3. End-stage renal disease, on hemodialysis. 4. History of gastrointestinal arteriovenous malformation. PLAN: The patient is currently on analgesic. She is on statins. Continue nebulizer treatment. We will follow up her H and H in the a.m. Shawn Gomez MD
--- NOTE | 2018-05-23 18:25 | PN ---
DATE: 05/23/2018 SUBJECTIVE: The patient is seen lying in bed. She has a soft support on her left knee. She complains of severe pain in the left knee. She denies any chest pain. She denies any palpitations. PHYSICAL EXAMINATION: GENERAL: Middle-aged lady, lying in bed. VITAL SIGNS: Blood pressure 129/77, heart rate 81, respiratory rate 18, and temperature 98. HEENT: Normocephalic, atraumatic, positive pallor. NECK: Supple, no JVD. LUNGS: Bilateral equal air entry, bilateral equal expansion, no rales. CARDIAC: S1 and S2, regular rate and rhythm, no murmur, no rub. ABDOMEN: Soft, nondistended, nontender, bowel sounds present. EXTREMITIES: No lower extremity edema, knee brace on the left knee. INTAKE AND OUTPUT: Not charted. LABORATORY DATA: WBC 3.9, hemoglobin 10.4, hematocrit 33, and platelets 97. Sodium 135, potassium 3.6, chloride 101, CO2 of 22. BUN 22, creatinine 3.5. Glucose 77. Calcium 9.4, phosphorus 3.9, magnesium 2.2. CT of the knee, wide fracture line extending into the articular surface of the medial femoral condyle and intercondylar notch. The fracture is comminuted and involved the medial surface of the medial femoral condyle. CURRENT MEDICATIONS: Coreg 6.25 b.i.d.; digoxin 0.125 Monday, Monday, and Monday; Dilaudid p.r.n. 1 mg every 4 hours; Lipitor 80, Renagel 800 t.i.d. with meals; Xopenex. ASSESSMENT: 1. Comminuted fracture of the left knee joint/left femoral medial condyle. 2. End-stage renal disease. 3. Anemia of chronic disease. 4. History of hypertension. 5. Secondary hyperparathyroidism. 6. Hyperphosphatemia. PLAN: 1. The patient is scheduled for left knee surgery. 2. Stable dialysis yesterday. 3. Continue current management. 4. Pain management. Mansi Rose MD
[2018-05-23] MEDS ORDERED: HYDROmorphone 0.5 mg/0.5 ml ISec IVP PRN (18:51)
[2018-05-23] MEDS ORDERED: Lactated Ringer's 1,000 ML IV SCH (19:00)
[2018-05-23] MEDS ORDERED: HYDROmorphone 0.5 mg/0.5 ml ISec ONE (19:06)
--- NOTE | 2018-05-23 22:20 | CON ---
DATE: 05/23/2018 REASON FOR CONSULTATION: Preop evaluation and risk stratification for left knee surgery status post fall and trauma HISTORY OF PRESENT ILLNESS: This is a 57-year-old female with past medical history significant for end-stage renal disease, on dialysis; history of CKD, on dialysis; history of COPD, asthma, GI bleed. History of GI AVM. History of cardiac catheterization nonobstructive coronary artery disease, who fell down in the kitchen and sustained fracture of the left knee requiring OR internal fixation. Denied any shortness or breath or any palpitation. PAST MEDICAL HISTORY: Significant for end-stage renal disease, on dialysis secondary to chronic kidney disease; hypertension; hyperparathyroidism; COPD; asthma; history of GI bleed; history of GI AVM; history of gastroesophageal reflux; history of peptic ulcer disease; history of mild cardiomyopathy; history of mitral regurgitation; history of tricuspid regurgitation; history of pulmonary hypertension; history of normal coronaries. PREVIOUS CARDIAC WORKUP: The patient had a cardiac catheterization dated 06/26/2017 that shows normal coronaries, upper limit normal, right heart pressure, history of end-stage renal disease, history of pericardial effusion status post pericardial window in the past. History of MUGA scan, 01/04/2018 that shows ejection fraction 31% and normal RV motion. The patient had echocardiography 01/08/2018 that was KADY done and that showed ejection fraction of 25%, moderate to severe mitral regurgitation, severe tricuspid regurgitation, RV systolic pressure of 74, consistent with pulmonary hypertension, no evidence of endocarditis. PAST SURGICAL HISTORY: Significant for cholecystectomy, history of gastrointestinal bleed, history of GI atriovenous malformation, history of large epicardial effusion, tamponade status post pericardial window. History of AV fistula of the left arm, history of right hip surgery. SOCIAL HISTORY: Smokes a packet. Denies any history of alcohol abuse. Denies any history of substance abuse. CURRENT MEDICATIONS: The patient is taking at home tramadol, Renagel, digoxin, Coreg, atorvastatin. ALLERGIES: TO ASPIRIN, CIPROFLOXACIN, HEPARIN, LATEX, PENICILLIN, LEVOTHYROXINE, ACETAMINOPHEN. CODEINE, ENOXAPARIN, IODINE. REVIEW OF SYSTEMS: As per HPI. PHYSICAL EXAMINATION: GENERAL: Height 5 feet 2 inches, weight of the patient 125 pounds, body mass index 22.9 kg/m2 VITAL SIGNS: Temperature, afebrile; heart rate is 81 per minute, blood pressure 129/77. HEENT: PERRLA. Extraocular muscles intact. NECK: Supple. No carotid bruits, no thyromegaly. CHEST: Clear to auscultation. HEART: S1, S2 regular. ABDOMEN: Soft. EXTREMITIES: Clubbing and cyanosis negative. LABORATORY DATA: Blood work up as follows: WBC 3.9, hemoglobin 10.1, hematocrit 33.0, platelet count 97. Chemistry showed sodium 135, potassium 3.6, chloride 101, carbon dioxide 22, anion gap of 15, BUN 22, creatinine 3.5. IMPRESSION: A 57-year-old female with a past medical history significant for chronic kidney disease, end-stage renal disease on dialysis, history of hypertension, history of gastrointestinal bleed secondary to arteriovenous malformations, history of chronic obstructive pulmonary disease, active tobacco abuse, history of cardiac catheterization for nonobstructive coronary artery disease, history of mitral regurgitation, tricuspid regurgitation, and severely decreased left ventricular function. History of brain aneurysm. History of knee surgery who slipped and fell down and sustained fracture of left knee requiring operating room internal fixation. RECOMMENDATIONS: Given the complexity of the chronic medical condition, the patient is at high risk for surgery, but we will continue the patient as high risk for surgery but no absolute contraindications. No evidence of acute ischemia, no evidence of congestive heart failure, no evidence of arrhythmia. We will continue the patient as high risk for surgery because of underlying comorbidities Continue dajuan-operative beta edith. We will follow with you. Thank you Dr. Ron for providing me the opportunity in taking care of the patient. Po Mccullough MD
[2018-05-23] MEDS: HYDROmorphone 1 mg/ml ISec IVP PRN (23:42)
[2018-05-24] MEDS: HYDROmorphone 1 mg/ml ISec IVP PRN ×2 (03:06→06:41)
[2018-05-24] MEDS: Levalbuterol 1.25 MG/3 ML Inhal Soln UD IH SCH ×3 (07:12→19:44)
[2018-05-24 07:15] LABS: BASO # 0.02 K/mm3 (0.0-2.0); BASO % 0.3 % (0.0-3.0); EOS # 0.1 (0.0-0.7); EOS % 1.8 % (1.5-5.0); GRAN # 5.38 (1.4-6.5); GRAN % 79.4 % (50.0-68.0); LYMPH # 0.7 (1.2-3.4); LYMPH % 10.2 % (22.0-35.0); MEAN CELL VOLUME 84.6 fl (80.0-105.0); MEAN CORPUSCULAR HEMOGLOBIN 25.3 pg (25.0-35.0); MEAN CORPUSCULAR HGB CONC 29.9 g/dl (31.0-37.0); MONO # 0.6 (0.1-0.6); MONO % 8.3 % (1.0-6.0); RBC 3.56 10^6/uL (3.5-6.1); RED CELL DISTRIBUTION WIDTH 18.3 % (11.5-14.5); WHITE BLOOD COUNT 6.8 10^3/ul (4.5-11.0)
[2018-05-24 07:26] LABS: ALB/GLOB RATIO 1.2 (1.1-1.8); ALBUMIN 3.3 g/dL (3.0-4.8); CALCIUM 8.6 mg/dL (8.4-10.5)
--- NOTE | 2018-05-24 07:47 | OP ---
PROCEDURE DATE: 05/23/2018 PREOPERATIVE DIAGNOSIS: Displaced fracture medial femoral condyle of her left knee with comminution and impaction. POSTOPERATIVE DIAGNOSIS: Displaced fracture medial femoral condyle of her left knee with comminution and impaction. PROCEDURE: Open reduction and internal fixation with a Biomet internal fixation using two 6.5 cannulated screws with washer for the distal fracture of the medial condyle of the left knee x2 screws, one anterior and one posterior and we did ORIF of the medial femoral condyle fracture with a Biomet T plate with 4 holes, 4 screws distally and 4 screws proximally to reinforce the construct and to secure the fixation with an antiglide plate. ANESTHESIA: General anesthesia with endotracheal tube. SALON STYLIST: Luciano Kuo PA-C OTHER PROCEDURES: Examination under anesthesia. DESCRIPTION OF PROCEDURE: In summary, patient was taken to the OR. Left knee was prepped and draped in sterile fashion from the thigh to the foot. Sterile tourniquet utilized to control the bleeding, we had to exsanguinate the leg, and after thorough prepping and draping, we made our anteromedial incision just along the medial border of the patella and the medial femoral condyle between the two groins proximally for 10 cm to allow us to retract the vastus medialis; so, we could see the fracture as we opened up the capsule and the fascia preserving the collateral ligaments. ACL was found to be intact. The hematoma was removed and the fracture held together with a bone clamp and reduced that way along the compression because she had an impacted fracture also we have to extubate and reduce the impacted fracture. With the help of C-arm, we put two cannulated screws 6.5 mm with 40 mm threads from the medial to lateral side. The bone was very osteopenic because of her medical condition. Then once these two screws were in and the fracture was reduced, we put in the plate, which was a locking plate with 4 screw holes proximally that were 3.5 mm, and 4 screws distally that were in the horizontal portion. This seemed to control the fracture we stressed in, there was no evidence of motion of the fracture and stayed reduced. The tourniquet was deflated. The wound was irrigated with normal saline and closed in layers starting with 0-Vicryl for the fascia to cover the plate, and the vastus medialis was protcting the plate and screws then the subcutaneous closure and partial fascial closure. Then the subcutaneous tissue was closed with 2-0 Vicryl, the skin with 2-0 nylon interrupted and a combination of stainless steel josephine. Patient had a Hemovac placed in the deep part of the wound, we will keep it in a couple of days and vancomycin powder also. She had clindamycin given preop IV and this patient was taken to recovery room with a compression dressing and a knee immobilizer and Aquacel. Tourniquet was deflated prior to wound closure. Jarrett Ibarra DO [place]
--- NOTE | 2018-05-24 08:41 | PN ---
DATE: 05/24/2018 FIRST DAY POSTOP REPORT LOCATION: In room 563, bed 1. SUBJECTIVE: The patient tolerated the ORIF of the left distal femur fracture well and she complains of no undue pain and there is no fever. The wound is draining with Hemovac 60 mL from last night. She is going to go to hemodialysis this morning and we will get her up out of bed and probably take the Hemovac out when the drainage is less than 30 mL. We will watch her for infection and phlebitis and definitely get her up out of bed and to put no weight on that left leg and have to walk with a walker. Hopefully, she could go to a rehab or TCU floor for a while because she gets her strength and recuperation is going to be a little longer because of her renal failure and on dialysis. Otherwise, she is doing well. I will get the blood work this morning at the hemodialysis unit. Jarrett Ibarra DO
--- NOTE | 2018-05-24 09:07 | CP.PCM.PN ---
Subjective - Date & Time of Evaluation Date of Evaluation: 05/24/18 Time of Evaluation: 06:45 - Subjective Subjective: Awake, alert, complaining of pain from left knee surgery Reason for consultation and follow up: Cardiac evaluation for pre-op surgery of left knee, status post ORIF of left knee post fall, history of non obstructive coronary artery disease, ESRD on hemodialysis, COPD, asthma, GI bleeding, hypertension Seen and examined by me and Dr. Bradford Objective - Vital Signs/Intake and Output Vital Signs (last 24 hours): Temp Pulse Resp BP Pulse Ox 98.4 F 66 20 111/65 95 05/24/18 06:00 05/24/18 06:00 05/24/18 06:00 05/24/18 06:00 05/24/18 06:00 Intake and Output: 05/24/18 05/24/18 06:59 18:59 Output Total 60 Balance -60 - Medications Medications: Current Medications Atorvastatin Calcium (Lipitor) 80 mg PO DIN [facility] Carvedilol (Coreg) 6.25 mg PO BID [facility] [place] Last Admin: 05/23/18 09:45 Dose: 6.25 mg Digoxin (Digoxin) 0.125 mg PO MWF@1400 [facility] [place] Hydromorphone HCl (Dilaudid) 1 mg PO Q4H PRN PRN Reason: Pain, moderate (4-7) Last Admin: 05/23/18 09:41 Dose: 1 mg Hydromorphone HCl (Dilaudid) 0.5 mg IVP Q4H PRN PRN Reason: Pain, severe (8-10) Levalbuterol HCl (Xopenex) 1.25 mg IH [id number] [facility] [place] Last Admin: 05/24/18 07:12 Dose: 1.25 mg Ondansetron HCl (Zofran Inj) 4 mg IVP ONCE PRN PRN Reason: Nausea/Vomiting Ondansetron HCl (Zofran Inj) 4 mg IVP Q6H PRN PRN Reason: Nausea/Vomiting Sevelamer HCl (Renagel) 800 mg PO TID [facility] [place] - Labs Labs: 05/24/18 06:30 05/24/18 06:30 PT 13.1 SECONDS (9.4-12.5) H 05/22/18 22:54 INR 1.15 05/22/18 22:54 APTT 31.6 Seconds (25.1-36.5) 05/22/18 22:54 - Constitutional Appears: No Acute Distress - Head Exam Head Exam: NORMAL INSPECTION, NORMOCEPHALIC - ENT Exam ENT Exam: Mucous Membranes Dry - Respiratory Exam Respiratory Exam: Decreased Breath Sounds, NORMAL BREATHING PATTERN - Cardiovascular Exam Cardiovascular Exam: +S1, +S2 - GI/Abdominal Exam GI & Abdominal Exam: Soft, Normal Bowel Sounds - Exam Additional comments: ESRD - Extremities Exam Additional comments: left knee immobilizer, with ronen wrapped - Neurological Exam Neurological Exam: Alert, Awake, Oriented x3 - Psychiatric Exam Psychiatric exam: Anxious - Skin Skin Exam: Dry, Normal Color, Warm Assessment and Plan - Assessment and Plan (Free Text) Assessment: A 57 year old who came in to the ER due to fractured left knee due to fall. History of non obstructive coronary artery disease, ESRD on hemodialysis, left arm AV shunt, COPD, asthma, GI bleeding, GI atriovenous malformation,hypertension, hyperparathyroidism, asthma, GERD, peptic ulcer disease, history of pulmonary hypertension, pericardial window, history of right hip surgery. She was cleared to undergo surgery of the left knee. status post ORIF of left knee POD #1 Plan: Denies chest pain or shortness of breath Status post keft knee surgery POD#1 Complaining of pain on left knee PRN pain medication given by buckle and button maker rate stable Blood pressure controlled H/H stable On Lipitor 80 mg daily,Coreg 6.25mg BID,Digoxin 0.125 mg MWF, Dilaudid PRN for pain Continue current medications Continue current treatment Chart reviewed Will follow up Plan and treatment discussed with Dr. Bradford
[2018-05-24] MEDS ORDERED: Darbepoetin Alfa 100 mcg/ml Inj IVP ONE (10:13)
[2018-05-24] MEDS ORDERED: Doxercalciferol 4 mcg/2 ml Inj IVP ONE (10:13)
--- NOTE | 2018-05-24 13:34 | RAD ---
Date of service: 05/23/2018 PROCEDURE: Fluoroscopy up to 1 hr. HISTORY: O.R.I.F. LEFT KNEE FX. COMPARISON: None TECHNIQUE: Standard protocol for this study/examination. FINDINGS: Total fluoroscopic time (continuous mode) utilized during the procedure 18.3 (seconds). Total exam DLP: 0.81 (mGy). IMPRESSION: Less than 1 hr fluoroscopic assistance provided during performance of the procedure.
[2018-05-24] MEDS: HYDROmorphone 0.5 mg/0.5 ml ISec IVP PRN ×2 (13:42→20:19)
--- NOTE | 2018-05-24 17:22 | PN ---
DATE: 05/24/2018 SUBJECTIVE: The patient is seen lying in bed. She is groggy. She just got pain medication. She has a cast on her lower extremity. She is postop day #1 after knee placement. PHYSICAL EXAMINATION: GENERAL: Middle-aged lady, lying in bed. VITAL SIGNS: Blood pressure 111/65, heart rate 66, respiratory rate 20, temperature 98.4. HEENT: Normocephalic, atraumatic, positive pallor. NECK: Supple, no JVD. LUNGS: Bilateral equal air entry. CARDIAC: S1 and S2, regular rate and rhythm, no murmur, no rub. ABDOMEN: Soft, nondistended, nontender, bowel sounds present. EXTREMITIES. No lower extremity edema. LABORATORY DATA: WBC 6.8, hemoglobin 9, hematocrit 30, platelets 83. Sodium 137, potassium 5.1, chloride 102, CO2 of 21, BUN 42, creatinine 6.1, glucose 60, calcium 8.6, phosphorus 3.9, magnesium 2.2, total bili 1.5, albumin 3.3. CURRENT MEDICATIONS: Coreg, digoxin, Dilaudid, Lipitor, Renagel, Xopenex, Zofran. ASSESSMENT: 1. Displaced fracture of the medial femoral condyle of the left knee, status post open reduction and internal fixation, postoperative day #1. 2. Severe anemia. 3. History of hypertension. 4. End-stage renal disease. 5. Congenital hip displacement. PLAN: 1. Stable dialysis today. 2. Monitor H and H. 3. Pain management. 4. Physical therapy. Mansi Rose MD
--- NOTE | 2018-05-25 00:08 | PN ---
DATE: 05/24/2018 SUBJECTIVE: The patient is 57 years old, seen and examined, in dialysis, sleepy, but arousable, complained of pain in the left knee area. PHYSICAL EXAMINATION: VITAL SIGNS: The patient is afebrile, pulse 64, respirations 20, blood pressure 139/63. LUNGS: Bilateral fair airflow. No rhonchi or crackle. HEART: S1 and S2 audible. ABDOMEN: Soft. Nontender. No rebound. No guarding. NEUROLOGICAL: The patient is sleepy, but arousable. EXTREMITIES: Left knee is in immobilizer. LABORATORY DATA: WBC 6.8, hemoglobin 9.2, hematocrit 30.1, platelet 83. Chemistry: Sodium 137, potassium 5.1, chloride 102, CO2 of 21, BUN 52, creatinine 6.1, blood sugar of 80. LFTs are within normal limits. ASSESSMENT: 1. Status post fall. 2. Left knee condylar fracture status post open reduction and internal fixation. 3. End-stage renal disease, on hemodialysis. 4. Status post cholecystectomy. 5. Anemia. 6. Hypertension. 7. History of gastrointestinal bleed secondary to arteriovenous malformations. PLAN: Currently, the patient is on Aranesp. She is on carvedilol, digoxin, hydromorphone. THE PATIENT HAS MULTIPLE ALLERGIES INCLUDING LOVENOX and HEPARIN. She is not a good candidate of anticoagulation; however, she has high risk for DVT, so we explained to the patient. We will encourage early mobilization. She is advised to do range of motion exercises in her left foot. I will request Dr. Dominguez to give input to choose for anticoagulation since she is at high risk for DVT. If Eliquis is a choice since SHE IS ALLERGIC TO LOVENOX AND HEPARIN. Shawn Gomez MD
[2018-05-25] MEDS: HYDROmorphone 0.5 mg/0.5 ml ISec IVP PRN ×5 (00:48→21:19)
[2018-05-25] MEDS: Levalbuterol 1.25 MG/3 ML Inhal Soln UD IH SCH ×4 (02:00→20:20)
--- NOTE | 2018-05-25 07:31 | CP.PCM.PN ---
Subjective - Date & Time of Evaluation Date of Evaluation: 05/25/18 Time of Evaluation: 06:35 - Subjective Subjective: No distress, Awake, alert, complaining of left knee pain Reason for consultation and follow up: Cardiac evaluation for pre-op surgery of left knee, status post ORIF of left knee post fall, history of non obstructive coronary artery disease, ESRD on hemodialysis, COPD, asthma, GI bleeding, hypertension Seen and examined by me and Dr. Bradford Objective - Vital Signs/Intake and Output Vital Signs (last 24 hours): Temp Pulse Resp BP Pulse Ox 98.2 F 84 20 119/53 L 94 L 05/24/18 22:41 05/24/18 22:41 05/24/18 22:41 05/24/18 22:41 05/24/18 22:41 Intake and Output: 05/25/18 05/25/18 06:59 18:59 Intake Total 240 Output Total 40 Balance 200 - Medications Medications: Current Medications Atorvastatin Calcium (Lipitor) 80 mg PO DIN [facility] Last Admin: 05/24/18 17:35 Dose: 80 mg Carvedilol (Coreg) 6.25 mg PO BID [facility] Last Admin: 05/24/18 17:35 Dose: 6.25 mg Digoxin (Digoxin) 0.125 mg PO MWF@1400 [facility] Hydromorphone HCl (Dilaudid) 1 mg PO Q4H PRN PRN Reason: Pain, moderate (4-7) Last Admin: 05/23/18 09:41 Dose: 1 mg Hydromorphone HCl (Dilaudid) 0.5 mg IVP Q4H PRN PRN Reason: Pain, severe (8-10) Last Admin: 05/25/18 06:48 Dose: 0.5 mg Levalbuterol HCl (Xopenex) 1.25 mg IH [id number] [facility] Last Admin: 05/25/18 07:13 Dose: 1.25 mg Ondansetron HCl (Zofran Inj) 4 mg IVP ONCE PRN PRN Reason: Nausea/Vomiting Ondansetron HCl (Zofran Inj) 4 mg IVP Q6H PRN PRN Reason: Nausea/Vomiting Sevelamer HCl (Renagel) 800 mg PO TID [facility] Last Admin: 05/24/18 17:36 Dose: Not Given - Labs Labs: 05/24/18 06:30 05/24/18 06:30 PT 13.1 SECONDS (9.4-12.5) H 05/22/18 22:54 INR 1.15 05/22/18 22:54 APTT 31.6 Seconds (25.1-36.5) 05/22/18 22:54 - Constitutional Appears: Non-toxic, No Acute Distress - Head Exam Head Exam: NORMAL INSPECTION, NORMOCEPHALIC - Eye Exam Eye Exam: Normal appearance Pupil Exam: NORMAL ACCOMODATION - ENT Exam ENT Exam: Mucous Membranes Moist - Respiratory Exam Respiratory Exam: Clear to Ausculation Bilateral, NORMAL BREATHING PATTERN - Cardiovascular Exam Cardiovascular Exam: REGULAR RHYTHM, +S1, +S2 - GI/Abdominal Exam GI & Abdominal Exam: Soft, Normal Bowel Sounds - Extremities Exam Additional comments: left leg immobilizer left AV shunt positive bruit - Neurological Exam Neurological Exam: Alert, Awake, Oriented x3 - Psychiatric Exam Psychiatric exam: Normal Affect, Normal Mood - Skin Skin Exam: Normal Color, Warm Assessment and Plan - Assessment and Plan (Free Text) Assessment: A 57 year old who came in to the ER due to fractured left knee due to fall. History of non obstructive coronary artery disease, ESRD on hemodialysis, left arm AV shunt, COPD, asthma, GI bleeding, GI atriovenous malformation,hypertension, hyperparathyroidism, asthma, GERD, peptic ulcer disease, history of pulmonary hypertension, pericardial window, history of right hip surgery. She was cleared to undergo surgery of the left knee. status post ORIF of left knee POD #2. cardiac status stable. Plan: No distress Status post left knee surgery POD#2 PRN medication for left knee pain Heart rate stable Blood pressure controlled Cardiac status stable H/H stable On Lipitor 80 mg daily,Coreg 6.25mg BID,Digoxin 0.125 mg MWF, Dilaudid PRN for pain Continue current medications Continue current treatment Chart reviewed Will follow up Plan and treatment discussed with Dr. Bradford
--- NOTE | 2018-05-25 09:39 | PN ---
DATE: 05/25/2018 FOLLOWUP REPORT SUBJECTIVE: She is presently 2 days postop from an ORIF of her left knee medial femoral condyle and has much less pain today. The Hemovac was removed today as its outflow was very little and the blood is clotting, so the suction is not functioning. So we will get her up out of bed today, ambulation, nonweightbearing with a walker and hopefully I could bring her to TCU to stay in the hospital for another 8 days, so I can watch the wound the change the dressing before she goes home. As she is on dialysis, there is a high chance of infection or other complications and she is allergic to a lot of medicines I can use. Adequate DVT prophylaxis. I will follow her closely in the hospital. Hopefully, she can go to TCU. Jarrett Ibarra DO
--- NOTE | 2018-05-25 10:42 | PN ---
DATE: 05/24/2018 LOCATION: The patient is in room 563, bed 1. SUBJECTIVE: Progress note has been already dictated by Sherron Rosas. The patient who had fractured left knee due to fall, nonobstructive coronary artery disease, renal failure, on dialysis, COPD, asthma, GI bleeding, hypertension, hyperparathyroidism, asthma, GERD, peptic ulcer disease, pulmonary hypertension, pericardial window. Underwent left knee surgery. She is lying flat in bed without any chest pain, shortness of breath or palpitation. Clinically, the patient's cardiac status is stable and we will continue Coreg 6.25 b.i.d.; digoxin 0.125 Monday, Monday, Monday; Lipitor 80 daily. Analgesic for pain. We will continue to follow with you. Po Bradford MD
[2018-05-25] MEDS: Digoxin 125 mcg (0.125 mg) Tab PO SCH (14:15)
--- NOTE | 2018-05-25 16:31 | PN ---
DATE: 05/25/2018 SUBJECTIVE: The patient is 57-year-old, seen and examined, seems to be comfortable, complaining of pain in the left knee area, sitting in the chair. PHYSICAL EXAMINATION: VITAL SIGNS: She is afebrile, pulse 80, respirations 18, blood pressure 118/50. LUNGS: Bilateral fair airflow. No rhonchi or crackle. HEART: S1 and S2 audible. ABDOMEN: Soft. Nontender. No rebound. No guarding. NEUROLOGIC: The patient is awake and alert, able to communicate. Left knee is in the immobilizer. LABORATORY DATA: WBC 6.8, hemoglobin 9, hematocrit 30.1, platelet of 83. Chemistry: Sodium 137, potassium 5.1, chloride 102, CO2 of 21, BUN 42, creatinine 6.1, blood sugar of 60. ASSESSMENT: 1. Status post fall. 2. Status post open reduction and internal fixation of the left knee secondary to medial femoral condyle fracture. 3. End-stage renal disease, on hemodialysis. 4. Hypertension. 5. Chronic anemia. 6. Status post right hip replacement. PLAN: Currently, the patient is on her usual medications including carvedilol, digoxin. She is on Dilaudid as needed. The patient does not want to go to [facility] because of her previous bad experience and she is not a candidate for TCU. We will keep her on acute care floor for another day and encourage mobilization and possible discharge on Monday after dialysis. Shawn Gomez MD
--- NOTE | 2018-05-25 22:01 | PN ---
DATE: 05/25/2018 SUBJECTIVE: The patient is seen lying in bed. She is awake, she is alert. She complains of pain in her left knee. Son and are at bedside. She denies any chest pain. PHYSICAL EXAMINATION: GENERAL: Middle-aged lady lying in bed. VITAL SIGNS: Blood pressure 118/50, heart rate 80, respiratory rate 18, temperature 98. HEENT: Normocephalic, atraumatic, positive pallor. NECK: Supple, no JVD. LUNGS: Bilateral equal entry, bilateral equal expansion. CARDIAC: S1, S2, regular rate and rhythm, no murmur, no rub. ABDOMEN: Soft, nondistended, nontender, bowel sounds present. EXTREMITIES: Cast of the left lower extremity, no edema. LABORATORY DATA: No new labs. CURRENT MEDICATIONS: Coreg 6.25 b.i.d., digoxin, Dilaudid, Lipitor, Renagel 800 t.i.d., Xopenex, Zofran. 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 Comminuted fracture of the left knee, status post open reduction and internal fixation postop day #2. 2. End-stage renal disease. 3. Anemia of chronic kidney disease. 4. Hypertension. 5. Secondary hyperparathyroidism. PLAN: 1. Pain management. 2. Physical therapy. 3. Dialysis tomorrow. 4. Check labs during dialysis tomorrow. Mansi Rose MD
[2018-05-26] MEDS: HYDROmorphone 0.5 mg/0.5 ml ISec IVP PRN ×5 (01:21→20:25)
[2018-05-26] MEDS: Levalbuterol 1.25 MG/3 ML Inhal Soln UD IH SCH ×4 (02:55→20:22)
--- NOTE | 2018-05-26 07:37 | CP.PCM.PN ---
Subjective - Date & Time of Evaluation Date of Evaluation: 05/26/18 Time of Evaluation: 07:25 - Subjective Subjective: Awake, alert, comfortable, no distress Reason for consultation and follow up: Cardiac evaluation for pre-op surgery of left knee, status post ORIF of left knee post fall, history of non obstructive coronary artery disease, ESRD on hemodialysis, COPD, asthma, GI bleeding, hypertension Seen and examined by me and Dr. Bradford Objective - Vital Signs/Intake and Output Vital Signs (last 24 hours): Temp Pulse Resp BP Pulse Ox 98.1 F 91 H 18 102/59 L 92 L 05/25/18 22:00 05/25/18 22:00 05/25/18 22:00 05/25/18 22:00 05/25/18 22:00 Intake and Output: 05/26/18 05/26/18 06:59 18:59 Intake Total 520 Balance 520 - Medications Medications: Current Medications Atorvastatin Calcium (Lipitor) 80 mg PO DIN [facility] Last Admin: 05/25/18 18:37 Dose: 80 mg Carvedilol (Coreg) 6.25 mg PO BID [facility] Last Admin: 05/25/18 10:19 Dose: Not Given Digoxin (Digoxin) 0.125 mg PO MWF@1400 [facility] Last Admin: 05/25/18 14:15 Dose: 0.125 mg Hydromorphone HCl (Dilaudid) 1 mg PO Q4H PRN PRN Reason: Pain, moderate (4-7) Last Admin: 05/23/18 09:41 Dose: 1 mg Hydromorphone HCl (Dilaudid) 0.5 mg IVP Q4H PRN PRN Reason: Pain, severe (8-10) Last Admin: 05/26/18 05:31 Dose: 0.5 mg Levalbuterol HCl (Xopenex) 1.25 mg IH [id number] [facility] Last Admin: 05/26/18 07:17 Dose: 1.25 mg Ondansetron HCl (Zofran Inj) 4 mg IVP ONCE PRN PRN Reason: Nausea/Vomiting Ondansetron HCl (Zofran Inj) 4 mg IVP Q6H PRN PRN Reason: Nausea/Vomiting Sevelamer HCl (Renagel) 800 mg PO TID [facility] Last Admin: 05/25/18 18:37 Dose: 800 mg - Labs Labs: 05/24/18 06:30 05/24/18 06:30 PT 13.1 SECONDS (9.4-12.5) H 05/22/18 22:54 INR 1.15 05/22/18 22:54 APTT 31.6 Seconds (25.1-36.5) 05/22/18 22:54 - Constitutional Appears: Non-toxic, No Acute Distress - Eye Exam Eye Exam: Normal appearance Pupil Exam: NORMAL ACCOMODATION - ENT Exam ENT Exam: Mucous Membranes Moist, Normal Exam - Respiratory Exam Respiratory Exam: Decreased Breath Sounds, Clear to Ausculation Bilateral, NORMAL BREATHING PATTERN - Cardiovascular Exam Cardiovascular Exam: +S1, +S2 - GI/Abdominal Exam GI & Abdominal Exam: Soft, Normal Bowel Sounds - Extremities Exam Additional comments: left leg with immobilizer left AV shunt with positive bruit - Neurological Exam Neurological Exam: Alert, Awake, Oriented x3 - Psychiatric Exam Psychiatric exam: Normal Affect, Normal Mood - Skin Skin Exam: Dry, Normal Color, Warm Assessment and Plan - Assessment and Plan (Free Text) Assessment: A 57 year old who came in to the ER due to fractured left knee due to fall. History of non obstructive coronary artery disease, ESRD on hemodialysis, left arm AV shunt, COPD, asthma, GI bleeding, GI atriovenous malformation ,hypertension, hyperparathyroidism, asthma, GERD, peptic ulcer disease, history of pulmonary hypertension, pericardial window, history of right hip surgery. She was cleared to undergo surgery of the left knee. status post ORIF of left knee POD #3. Cardiac status stable.No distress Plan: No distress Status post left knee surgery POD#3 Cardiac status stable Heart rate stable Blood pressure controlled PRN medication for left knee pain Clinically stable continue physical therapy, she gets out of bed to chair Discharge planning On Lipitor 80 mg daily,Coreg 6.25mg BID,Digoxin 0.125 mg MWF, Dilaudid PRN for pain Continue current medications Continue current treatment Chart reviewed Will follow up Plan and treatment discussed with Dr. Bradford
[2018-05-26 10:10] LABS: BASO # 0.01 K/mm3 (0.0-2.0); BASO % 0.2 % (0.0-3.0); EOS # 0.2 (0.0-0.7); EOS % 3.8 % (1.5-5.0); GRAN # 3.71 (1.4-6.5); GRAN % 74.2 % (50.0-68.0); HEMOGLOBIN 7.3 g/dL (12.0-16.0); LYMPH # 0.6 (1.2-3.4); LYMPH % 12.4 % (22.0-35.0); MEAN CELL VOLUME 81.9 fl (80.0-105.0); MEAN CORPUSCULAR HEMOGLOBIN 25.4 pg (25.0-35.0); MEAN CORPUSCULAR HGB CONC 31.1 g/dl (31.0-37.0); MEAN PLATELET VOLUME 9.6 fl (7.0-11.0); MONO # 0.5 (0.1-0.6); MONO % 9.4 % (1.0-6.0); RBC 2.87 10^6/uL (3.5-6.1); RED CELL DISTRIBUTION WIDTH 18.2 % (11.5-14.5)
[2018-05-26] MEDS ORDERED: Darbepoetin Alfa 100 mcg/ml Inj IVP ONE (10:27)
[2018-05-26] MEDS ORDERED: Doxercalciferol 4 mcg/2 ml Inj IVP ONE (10:27)
[2018-05-26 10:52] LABS: ALB/GLOB RATIO 1.2 (1.1-1.8); ALBUMIN 2.6 g/dL (3.0-4.8); CALCIUM 8.2 mg/dL (8.4-10.5)
--- NOTE | 2018-05-27 00:01 | CON ---
DATE: 05/26/2018 HISTORY OF PRESENT ILLNESS: Ms. Kraus is a 57-year-old female, admitted to the hospital with left knee medial condyle fracture. She is status post open reduction and internal fixation. She has end-stage renal disease, on hemodialysis. She has chronic anemia, might bed related to chronic GI bleed. Today, hemoglobin declined to 7.3 g/dL. She underwent dialysis today. She is allergic to heparin and Lovenox. PAST MEDICAL HISTORY: End-stage renal disease, on dialysis; hypertension; GI bleed secondary to AVM. COPD, history of C. diff infection, congenital hip dislocation, history of brain aneurysm. ALLERGIES: MULTIPLE ALLERGIES LISTED UNDER MAR. CURRENT MEDICATIONS: Tramadol, Xopenex, hydromorphone, Nexium, Coreg, digoxin, atorvastatin. SOCIAL HISTORY: Lives with the boyfriend. Current smoker. REVIEW OF SYSTEMS: As per HPI. Rest of 12-point review of systems reviewed negative. PHYSICAL EXAMINATION: GENERAL: Comfortable in bed, in no acute distress. VITAL SIGNS: Temperature 98.7, heart rate 80 per minute, blood pressure 100/70, respiratory rate 18 per minute, oxygen saturation 98% on room air. HEENT: Pallor positive. NECK: No lymphadenopathy. CHEST: Air entry present and equal, bilateral. No added sounds. CARDIOVASCULAR: S1, S2 normal. No murmur. No gallop. ABDOMEN: Soft, nontender. No hepatosplenomegaly. EXTREMITY: No edema.bruises on both arms. LABORATORY DATA: White count 5, hemoglobin 7.3, hematocrit 23.5, platelets 71,000. Sodium 133, potassium 4.2, creatinine 5.1. ASSESSMENT: 1. Anemia. 2. Thrombocytopenia. 3. End-stage renal disease, on hemodialysis. 4. Status post left knee surgery. Status post gastrointestinal bleed, history of arteriovenous malformation. PLAN: One unit of PRBC transfusion to be given today. She can have transfusion during hemodialysis. Currently, on erythropoietin stimulating agent with hemodialysis. We will recommend continuing that. She is allergic to heparin and Lovenox. I would recommend Pradaxa at lower dose at 75 mg p.o. b.i.d. for DVT prophylaxis in postop period. She received a dose of Aranesp today. Continue weekly 100 mcg daily. Thrombocytopenia, likely multifactorial, may be due to end-stage renal disease, uremia. Iron studies will not be accurate now because of blood transfusion. If she is iron deficient, needs iron repletion, Thank you, Dr. Gomez for allowing us to participate in Ms. Kraus's care. Chelsy Dominguez MD [place]
[2018-05-27] MEDS: HYDROmorphone 0.5 mg/0.5 ml ISec IVP PRN (00:41)
[2018-05-27] MEDS: Levalbuterol 1.25 MG/3 ML Inhal Soln UD IH SCH ×4 (01:43→20:39)
[2018-05-27] MEDS: HYDROmorphone 1 mg/ml ISec IVP PRN ×4 (04:44→20:20)
--- NOTE | 2018-05-27 09:59 | CP.PCM.PN ---
Subjective - Date & Time of Evaluation Date of Evaluation: 05/27/18 Time of Evaluation: 07:05 - Subjective Subjective: No distress,awake, alert, left leg pain when moving Reason for consultation and follow up: Cardiac evaluation for pre-op surgery of left knee, status post ORIF of left knee post fall, history of non obstructive coronary artery disease, ESRD on hemodialysis, COPD, asthma, GI bleeding, hypertension Seen and examined by me and Dr. Bradford Objective - Vital Signs/Intake and Output Vital Signs (last 24 hours): Temp Pulse Resp BP Pulse Ox 97.8 F 87 18 117/66 95 05/27/18 08:02 05/27/18 09:05 05/27/18 08:02 05/27/18 09:05 05/27/18 08:02 - Medications Medications: Current Medications Atorvastatin Calcium (Lipitor) 80 mg PO DIN [facility] Last Admin: 05/26/18 17:34 Dose: 80 mg Carvedilol (Coreg) 6.25 mg PO BID [facility] Last Admin: 05/27/18 09:05 Dose: 6.25 mg Dabigatran (Pradaxa) 75 mg PO BID [facility]; Protocol Last Admin: 05/27/18 09:06 Dose: 75 mg Digoxin (Digoxin) 0.125 mg PO MWF@1400 [facility] Last Admin: 05/25/18 14:15 Dose: 0.125 mg Hydromorphone HCl (Dilaudid) 1 mg PO Q4H PRN PRN Reason: Pain, moderate (4-7) Last Admin: 05/26/18 23:24 Dose: 1 mg Hydromorphone HCl (Dilaudid) 0.5 mg IVP Q4H PRN PRN Reason: Pain, severe (8-10) Last Admin: 05/27/18 08:51 Dose: 0.5 mg Levalbuterol HCl (Xopenex) 1.25 mg IH [id number] [facility] Last Admin: 05/27/18 07:21 Dose: 1.25 mg Ondansetron HCl (Zofran Inj) 4 mg IVP ONCE PRN PRN Reason: Nausea/Vomiting Ondansetron HCl (Zofran Inj) 4 mg IVP Q6H PRN PRN Reason: Nausea/Vomiting Sevelamer HCl (Renagel) 800 mg PO TID [facility] Last Admin: 05/27/18 09:04 Dose: 800 mg - Labs Labs: 05/26/18 09:30 05/26/18 09:30 PT 13.1 SECONDS (9.4-12.5) H 05/22/18 22:54 INR 1.15 05/22/18 22:54 APTT 31.6 Seconds (25.1-36.5) 05/22/18 22:54 - Constitutional Appears: Non-toxic, No Acute Distress - Head Exam Head Exam: NORMAL INSPECTION, NORMOCEPHALIC - Eye Exam Eye Exam: Normal appearance Pupil Exam: NORMAL ACCOMODATION - ENT Exam ENT Exam: Mucous Membranes Moist, Normal Exam - Respiratory Exam Respiratory Exam: Decreased Breath Sounds, Clear to Ausculation Bilateral, NORMAL BREATHING PATTERN - Cardiovascular Exam Cardiovascular Exam: +S1, +S2 - GI/Abdominal Exam GI & Abdominal Exam: Soft, Normal Bowel Sounds - Exam Additional comments: ESRD on hemodialysis 3x a week - Extremities Exam Additional comments: left AV shunt positive bruit/thrill left leg with ronen wrapped and leg immobilizer - Neurological Exam Neurological Exam: Alert, Awake, Oriented x3 - Psychiatric Exam Psychiatric exam: Normal Affect, Normal Mood - Skin Skin Exam: Dry, Normal Color, Warm Assessment and Plan - Assessment and Plan (Free Text) Assessment: A 57 year old who came in to the ER due to fractured left knee due to fall. History of non obstructive coronary artery disease, ESRD on hemodialysis, left arm AV shunt, COPD, asthma, GI bleeding, GI atriovenous malformation,h ypertension, hyperparathyroidism, asthma, GERD, peptic ulcer disease, history of pulmonary hypertension, pericardial window, history of right hip surgery. She was cleared to undergo surgery of the left knee. status post ORIF of left knee POD #4. Cardiac status stable. No distress, physical therapy in progress. Plan: Feels better Status post left knee surgery POD#4 Cardiac status stable Heart rate stable Blood pressure controlled PRN medication for left knee pain Clinically stable Continue physical therapy Gets out of bed to chair Discharge planning On Lipitor 80 mg daily,Coreg 6.25mg BID,Digoxin 0.125 mg MWF, Dilaudid PRN for pain Continue current medications Continue current treatment Chart reviewed Will follow up Plan and treatment discussed with Dr. Bradford
--- NOTE | 2018-05-27 14:12 | PN ---
DATE: 05/27/2018 SUBJECTIVE: She is comfortable in bed, in no acute distress, underwent hemodialysis yesterday. She has left knee surgery recently for knee fracture. She was started on Pradaxa yesterday. Denies any complaint. She has multiple bruises on both arms due to history of fall. REVIEW OF SYSTEMS: As per HPI. Rest of 12-point review of systems reviewed negative. Status post one unit of blood transfusion yesterday. PHYSICAL EXAMINATION: GENERAL: Comfortable in bed, in no acute distress. VITAL SIGNS: Temperature 97.6, heart rate is 76 per minute, blood pressure 110/70, oxygen saturation 96% on room air. HEENT: Pallor positive. NECK: No lymphadenopathy. CHEST: Air entry present equal bilaterally. No added sounds. CARDIOVASCULAR: S1 and S2 normal. No murmur, no gallop. ABDOMEN: Soft, nontender. No hepatosplenomegaly. EXTREMITIES: Bruises present on both arms. Left knee in dressing. LABORATORY DATA: White count 5, hemoglobin 7.3, hematocrit 23.5, and platelets 71. Sodium 133, potassium 4.2. Creatinine 5.1. Labs are from 05/26/2018, current labs pending. MEDICATIONS: Pradaxa 75 mg p.o. b.i.d., Coreg 6.25 mg p.o. b.i.d., Lipitor 80 mg daily, Dilaudid 1 mg every 4 hours p.r.n., Zofran p.r.n., Renagel 800 mg p.o. t.i.d. ASSESSMENT: 1. End-stage renal disease, on hemodialysis. 2. Left knee surgery recently, on anticoagulation with Pradaxa 75 mg p.o. b.i.d., continue that. Anemia and thrombocytopenia, likely related to end-stage renal disease. one unit of blood transfusion yesterday. 3. Pain issues. Pain currently controlled with Dilaudid dose. Continue current regimen. Discussed with the patient at length. Chelsy Dominguez MD
--- NOTE | 2018-05-27 15:04 | PN ---
DATE: 05/26/2018 SUBJECTIVE: The patient is seen, lying in bed. She is receiving blood transfusion. She is awake, she is alert. She had a dialysis earlier today. PHYSICAL EXAMINATION: GENERAL: Middle-aged lady lying in bed. VITAL SIGNS: Blood pressure 104/53, heart rate 80, respiratory rate 18, temperature 98. HEENT: Normocephalic, atraumatic, positive pallor. NECK: Supple. No JVD. CARDIAC: S1, S2, regular rate and rhythm, no murmur, no rub. LUNGS: Bilateral equal air entry, bilateral equal expansion. ABDOMEN: Soft, nondistended, nontender, bowel sounds present. EXTREMITIES: Cast of the left lower extremity. INTAKE AND OUTPUT: Not charted. LABORATORY DATA: WBC 5, hemoglobin 7.3, hematocrit 24, and platelets 71. Sodium 133, potassium 4.2, chloride 97, CO2 of 25. BUN 48, creatinine 5.1. Glucose 126. Calcium 8.2, , magnesium 2.1. AST 15, ALT 19. Albumin 2.6. CURRENT MEDICATIONS: Coreg, digoxin, Dilaudid, Lipitor, Pradaxa, Renagel, and Xopenex. ASSESSMENT: 1. Status post left knee comminuted fracture, open reduction and internal fixation, postoperative day #3. 2. Severe anemia, acute on chronic. 3. Hypertension. 4. End-stage renal disease. 5. Hyperphosphatemia. PLAN: 1. Transfuse to hemoglobin of 9. 2. Stable dialysis earlier. 3. Monitor H and H. 4. Continue phosphate binders. 5. Push p.o. protein intake. Mansi Rose MD
[2018-05-28] MEDS: Levalbuterol 1.25 MG/3 ML Inhal Soln UD IH SCH ×4 (01:00→21:01)
[2018-05-28] MEDS: HYDROmorphone 1 mg/ml ISec IVP PRN ×4 (02:23→19:29)
--- NOTE | 2018-05-28 06:35 | CP.PCM.PN ---
Subjective - Date & Time of Evaluation Date of Evaluation: 05/28/18 Time of Evaluation: 06:20 - Subjective Subjective: Awake, No distress,alert, left leg pain Reason for consultation and follow up: Cardiac evaluation for pre-op surgery of left knee, status post ORIF of left knee post fall, history of non obstructive coronary artery disease, ESRD on hemodialysis, COPD, asthma, GI bleeding, hypertension Seen and examined by me and Dr. Mccullough Objective - Vital Signs/Intake and Output Vital Signs (last 24 hours): Temp Pulse Resp BP Pulse Ox 98.8 F 81 20 115/66 97 05/27/18 22:44 05/27/18 22:44 05/27/18 22:44 05/27/18 22:44 05/27/18 22:44 Intake and Output: 05/27/18 05/28/18 18:59 06:59 Intake Total 1000 200 Balance 1000 200 - Medications Medications: Current Medications Atorvastatin Calcium (Lipitor) 80 mg PO DIN [facility] Last Admin: 05/27/18 18:07 Dose: 80 mg Carvedilol (Coreg) 6.25 mg PO BID [facility] Last Admin: 05/27/18 18:06 Dose: 6.25 mg Dabigatran (Pradaxa) 75 mg PO BID [facility]; Protocol Last Admin: 05/27/18 18:06 Dose: 75 mg Digoxin (Digoxin) 0.125 mg PO MWF@1400 [facility] Last Admin: 05/25/18 14:15 Dose: 0.125 mg Hydromorphone HCl (Dilaudid) 1 mg PO Q4H PRN PRN Reason: Pain, moderate (4-7) Last Admin: 05/27/18 16:18 Dose: 1 mg Hydromorphone HCl (Dilaudid) 0.5 mg IVP Q4H PRN PRN Reason: Pain, severe (8-10) Last Admin: 05/28/18 02:23 Dose: 0.5 mg Levalbuterol HCl (Xopenex) 1.25 mg IH [id number] SCH Last Admin: 05/28/18 01:00 Dose: 1.25 mg Ondansetron HCl (Zofran Inj) 4 mg IVP ONCE PRN PRN Reason: Nausea/Vomiting Ondansetron HCl (Zofran Inj) 4 mg IVP Q6H PRN PRN Reason: Nausea/Vomiting Sevelamer HCl (Renagel) 800 mg PO TID LEX Last Admin: 05/27/18 18:07 Dose: 800 mg - Labs Labs: 05/26/18 09:30 05/26/18 09:30 PT 13.1 SECONDS (9.4-12.5) H 05/22/18 22:54 INR 1.15 05/22/18 22:54 APTT 31.6 Seconds (25.1-36.5) 05/22/18 22:54 - Constitutional Appears: Non-toxic, No Acute Distress - Head Exam Head Exam: NORMAL INSPECTION, NORMOCEPHALIC - Eye Exam Eye Exam: Normal appearance Pupil Exam: NORMAL ACCOMODATION - ENT Exam ENT Exam: Mucous Membranes Moist - Cardiovascular Exam Cardiovascular Exam: +S1, +S2 - GI/Abdominal Exam GI & Abdominal Exam: Soft, Normal Bowel Sounds - Exam Additional comments: ESRD on hemodalysis 3x a week (TTHS) - Extremities Exam Additional comments: left leg with ronen wrapped swollen left AV shunt + bruit/thrill - Neurological Exam Neurological Exam: Alert, Awake, Oriented x3 - Psychiatric Exam Psychiatric exam: Normal Affect, Normal Mood - Skin Skin Exam: Dry, Normal Color, Warm Assessment and Plan - Assessment and Plan (Free Text) Assessment: A 57 year old who came in to the ER due to fractured left knee due to fall. History of non obstructive coronary artery disease, ESRD on hemodialysis, left arm AV shunt, COPD, asthma, GI bleeding, GI atriovenous malformation,hypertension, hyperparathyroidism, asthma, GERD, peptic ulcer disease, history of pulmonary hypertension, pericardial window, history of right hip surgery. She was cleared to undergo surgery of the left knee. status post ORIF of left knee, post transfusion for low H/H. Cardiac status stable. No distress, physical therapy in progress. Plan: Status post left knee surgery POD#5 PRN medication for left knee pain Cardiac status stable Heart rate stable Blood pressure controlled Continue physical therapy Gets out of bed to chair Discharge planning On Lipitor 80 mg daily,Coreg 6.25mg BID,Digoxin 0.125 mg MWF, Pradaxa 75 mg BID,Dilaudid PRN for pain Continue current medications Continue current treatment Chart reviewed Will follow up Plan and treatment discussed with Dr. Mccullough
--- NOTE | 2018-05-28 07:41 | PN ---
DATE: 05/27/2018 POSTOPERATIVE REPORT SUBJECTIVE: Presently, she is postop 4 days from ORIF medial femoral condyle, left knee. The dressing was changed, the wound is dry and no evidence of infection, no undue swelling. She does have hemoglobin and hematocrit presently that are 7.3 and 23 and there are no signs of weakness. We changed the dressings, I put a new dressing on and she is going to dialysis on Monday with 2 days from now and she is used to work. Low hemoglobin because of her renal failure and dialysis, so I will change the dressing in 2 to 3 days again. Hopefully, she could go to TCU, which will be much more easier on her, so I could watch her closer and she is a dialysis patient. I hate to see her to go to a subacute rehab that is clean as here and then more supervision for her wound care for left knee, which is tenuous because of her chronic renal failure, she could get an infection easily and the fracture could move if she fall because her bone is osteopenic and screws may not hold if she has a traumatic episode and she just has to be watched and could do better therapy here too under strict supervision, so hopefully should go to TCU. Jarrett Ibarra DO
--- NOTE | 2018-05-28 08:13 | PN ---
DATE: 05/28/2018 ORTHOPEDIC FOLLOWUP REPORT SUBJECTIVE: A 57-year-old female in room 563, bed 1. She is presently 5 days postop from ORIF of the left knee for displaced medial femoral condyle fracture. She has no signs of infection, but she does have pain. No elevated white count. No fever. Changed the dressing yesterday. The wound was dry, but she still complains of pain. I just have to watch her and make sure she is not going to get an infection. I hope she could go to TCU, so I could watch her closer since she is susceptible to a lot of complications. She just had another unit of blood yesterday. We will get another CBC when she is at dialysis tomorrow, today's date is 05/28/2018, so she should get on 05/29/2018. She was up out of bed and we will get her walking, nonweightbearing on the left leg with the knee fracture. Jarrett Ibarra DO
[2018-05-28 08:59] LABS: HEMOGLOBIN 8.8 g/dL (12.0-16.0); MEAN CELL VOLUME 82.9 fl (80.0-105.0); MEAN CORPUSCULAR HEMOGLOBIN 25.1 pg (25.0-35.0); MEAN CORPUSCULAR HGB CONC 30.3 g/dl (31.0-37.0); MEAN PLATELET VOLUME 9.4 fl (7.0-11.0); RBC 3.5 10^6/uL (3.5-6.1); RED CELL DISTRIBUTION WIDTH 18.2 % (11.5-14.5); WHITE BLOOD COUNT 5.5 10^3/ul (4.5-11.0)
--- NOTE | 2018-05-28 09:13 | PN ---
DATE: 05/26/2018 SUBJECTIVE: The patient is 57 years old, seen and examined in dialysis. Doing okay. Complained of pain in the left knee. Receiving hemodialysis. PHYSICAL EXAMINATION: VITAL SIGNS: She is afebrile, pulse 83, respirations 18, blood pressure 102/58. LUNGS: Bilateral fair airflow. No rhonchi or crackle. HEART: S1 and S2 audible. ABDOMEN: Soft. Nontender. No rebound. No guarding. NEUROLOGICAL: The patient is awake, alert, oriented, able to communicate. EXTREMITIES: Left leg is in immobilizer. LABORATORY EXAM: WBC 5, hemoglobin 7.3, hematocrit 23.5, platelet of 71. Chemistry: Sodium 133, potassium 4.2, chloride 97, CO2 of 25, BUN 48, creatinine 5.1, blood sugar of 126. ASSESSMENT: 1. Status post fall and left femur condyle fracture, status post open reduction and internal fixation. 2. Hypertension. 3. Symptomatic anemia, acute on chronic secondary to blood loss. 4. End-stage renal disease, on hemodialysis. PLAN: We will give her one blood transfusion during hemodialysis. I spoke to Dr. Dominguez. We will start her on modified dose of Pradaxa and watch closely for any bleeding. The patient refused to go to [facility] for rehab. She would rather go home and she was rejected from TCU. So plan is to discharge her Monday after dialysis if she remains stable. Shawn Gomez MD
--- NOTE | 2018-05-28 09:35 | PN ---
DATE: 05/26/2018 LOCATION: The patient is in room 563, bed 1. SUBJECTIVE: The patient is status post of fractured left knee, known case of renal failure, on dialysis, COPD, asthma, GI bleeding, hypertension, hyperparathyroidism, GERD, asthma, peptic ulcer disease, pulmonary hypertension, pericardial window. Now the patient is postop for knee surgery, lying flat in bed without chest pain, shortness of breath. The patient is also getting dialysis. The patient's cardiac status is clinically stable from cardiac point of view. The patient will continue present therapy. We are monitoring her cardiac status clinically. She has been stable. The patient is on Pradaxa 75 mg b.i.d.; atorvastatin 80 daily; digoxin 0.125 p.o. Monday, Monday, Monday; carvedilol 6.25 b.i.d. The patient is on Pradaxa as mentioned 75 mg b.i.d. The patient is also getting analgesic, Xopenex hand nebulizer therapy and atorvastatin 80 daily. We will continue this therapy. Po Bradford MD
--- NOTE | 2018-05-28 09:45 | PN ---
DATE: 05/27/2018 LOCATION: Patient in room 560, bed 1. Patient was admitted with left knee fracture, had surgery. Now she is postop. She has known renal failure, on dialysis, COPD, asthma, GI bleeding, AV malformation, hypertension, hyperparathyroidism, GERD, peptic ulcer disease, pulmonary hypertension, previously had pericardial window. Patient now lying flat in bed without chest pain, shortness of breath or palpitation and patient continued to improve from surgery. Clinically cardiac status is stable. We will continue present therapy. We will follow with you. Po Bradford MD
--- NOTE | 2018-05-28 09:49 | PN ---
DATE: 05/25/2018 The progress note has been already dictated by Sherron Rosas. This is an addendum. SUBJECTIVE: The patient is known to have COPD, asthma, GI bleeding, renal failure, on hemodialysis, was admitted with fractured knee, for which needed cardiac evaluation for surgery and the patient is now postop knee surgery and the patient is lying flat in bed without chest pain, shortness of breath or palpitation. The patient's sodium 137, potassium 5.1, BUN is 42, creatinine 6.1. WBC 6.8, hemoglobin 9, hematocrit 30.1, platelet 83. DIAGNOSES: Status postoperative knee surgery; renal failure, on dialysis; chronic obstructive pulmonary disease; asthma; gastrointestinal bleeding; history of arteriovenous malformation; hypertension; hyperparathyroidism; asthma; gastroesophageal reflux disease; peptic ulcer disease; history of pulmonary hypertension; history of pericardial window for pericardial effusion; history of right hip surgery. Clinically, cardiac status is stable. The patient is lying flat in bed without any cardiac symptoms. So we will continue present therapy. Coreg 6.25 b.i.d.; digoxin 0.125 p.o. Monday, Monday, Monday; Lipitor 80 mg daily; Renagel 800 mg p.o. t.i.d. We will follow. Po Bradford MD
[2018-05-28] MEDS: Digoxin 125 mcg (0.125 mg) Tab PO SCH (13:36)
[2018-05-28 13:41] VITALS: PULSE 72
--- NOTE | 2018-05-28 14:18 | PN ---
DATE: 05/28/2018 REASON FOR THE CONSULTATION: Followup preop evaluation, postop followup, history of cardiomyopathy, history of end-stage renal disease. This note is an addition to dictated by our nurse practitioner. The patient is lying flat on bed. Denies any chest pain, shortness of breath or any palpitation. History of end-stage renal disease, on dialysis; history of cardiomyopathy; mitral regurgitation; tricuspid regurgitation; status post fall; status post right knee injury; status post OR and internal fixation. Awaiting to be discharged and follow up with a rehab. RECOMMENDATION: Continue rehab, status post day 5 postop. History of pericardial window in the past, history of AV shunt in the left arm for dialysis, history of GI bleed, history of arteriovenous malformation leading to GI bleed, hyperparathyroidism; peptic ulcer disease. CVS status is stable. Continue Lipitor. Continue Coreg. Continue dig Monday, Monday, Monday. Continue Pradaxa for DVT prophylaxis. We will follow with you. Possible discharge home. Thank you, Dr. Gomez for providing us the opportunity in taking care of the patient, Jacqui Kraus. Po Mccullough MD
--- NOTE | 2018-05-28 15:31 | PN ---
DATE: 05/28/2018 SUBJECTIVE: Middle-aged lady, lying in bed, complains of severe pain in her left leg. She denies any constipation. She denies any nausea or vomiting. PHYSICAL EXAMINATION: GENERAL: Middle-aged lady lying in bed. VITAL SIGNS: Blood pressure 111/61, heart rate 75, respiratory rate 16-18, temperature 98. HEENT: Normocephalic, atraumatic, positive pallor. NECK: Supple, no JVD. LUNGS: Bilateral equal air entry, bilateral equal expansion. CARDIAC: S1 and S2, regular rate and rhythm, no murmur, no rub. ABDOMEN: Soft, nondistended, nontender, bowel sounds present. EXTREMITIES: Cast of the left lower extremity, no edema of the right lower extremity. INTAKE AND OUTPUT: Not charted. LABORATORY DATA: WBC 5.5, hemoglobin 8.8, hematocrit 29, platelets 89. Sodium 133, potassium 4.2, chloride 97, CO2 of 25, BUN 48, creatinine 5.1, glucose 126, calcium 8.2, phosphorus 6.1. Total bili 1.6. CURRENT MEDICATIONS: Coreg 6.25 b.i.d.; digoxin 0.125 Monday, Monday, Monday; Dilaudid; Lipitor; Pradaxa; Renagel; Xopenex; Zofran. ASSESSMENT: 1. Status post comminuted fracture of the left femoral condyle, status post open reduction and internal fixation. 2. Aaghj-ke-izjuncv anemia. 3. Hypertension. 4. End-stage renal disease. 5. Secondary hyperparathyroidism. PLAN: 1. Dialysis tomorrow. 2. Transfuse 1 unit of PRBC if hemoglobin less than 8.5. 3. Give Aranesp 100 mcg subcu. 4. Hectorol 2 mcg. 5. Continue pain management. Mansi Rose MD
--- NOTE | 2018-05-28 19:54 | PN ---
DATE: SUBJECTIVE: The patient is 57 years old sitting in chair watching TV, complaining of pain in the left knee, also has swelling of the left lower leg. Eating fair. No chest pain. No shortness of breath. PHYSICAL EXAMINATION: VITAL SIGNS: The patient is afebrile, pulse 78, respiration 18 and blood pressure 119/63. LUNGS: Bilateral fair airflow. No rhonchi or crackle. HEART: S1 and S2 audible. ABDOMEN: Soft and nontender. No rebound. No guarding. NEUROLOGIC: The patient is awake, alert, oriented, able to communicate. EXTREMITIES: Left knee is in the immobilizer. LABORATORY DATA: WBC 5.5, hemoglobin 8.8, hematocrit 29 and platelet of 89. Chemistry: Sodium 133, potassium 4.2, chloride 97, CO2 of 25, BUN 48, calcium 5.1, blood sugar of 126. Hepatitis profile is negative. ASSESSMENT: 1. Status post fall. 2. Left hip, open reduction and internal fixation of left condyle fracture. 3. End-stage renal disease, on hemodialysis. 4. Hypertension. 5. Hyperlipidemia. 6. Anemia, secondary to blood loss, was given one blood transfusion. PLAN: She will continue statins. She has a starting not Pradaxa. We will continue on and the patient does not want to go to [facility] that has a facility of hemodialysis. She is not a candidate of TCU either and she is reluctant to go home. Reach out to clinical social work therapist, they will arrange for home PT and home health-aid and possible discharge in a.m. since she has to get dialysis today and hence too much shuffling around person, so she will receive her dialysis today. She will be discharged home with home health-aid and physical therapy. Shawn Gomez MD
[2018-05-28 22:52] VITALS: RESP 20
[2018-05-29] MEDS: Levalbuterol 1.25 MG/3 ML Inhal Soln UD IH SCH ×4 (01:07→19:53)
[2018-05-29] MEDS: HYDROmorphone 1 mg/ml ISec IVP PRN ×4 (02:48→17:44)
--- NOTE | 2018-05-29 06:52 | CP.PCM.PN ---
Subjective - Date & Time of Evaluation Date of Evaluation: 05/29/18 Time of Evaluation: 06:20 - Subjective Subjective: Awake, No distress,alert Reason for consultation and follow up: Cardiac evaluation for pre-op surgery of left knee, status post ORIF of left knee post fall, history of non obstructive coronary artery disease, ESRD on hemodialysis, COPD, asthma, GI bleeding, hypertension Seen and examined by me and Dr. Mccullough Objective - Vital Signs/Intake and Output Vital Signs (last 24 hours): Temp Pulse Resp BP Pulse Ox 98.0 F 80 20 122/65 100 05/28/18 14:00 05/28/18 22:51 05/28/18 22:51 05/28/18 22:51 05/28/18 22:51 - Medications Medications: Current Medications Atorvastatin Calcium (Lipitor) 80 mg PO DIN COUNTS INCLUDE 234 BEDS AT [facility] Last Admin: 05/28/18 17:48 Dose: 80 mg Carvedilol (Coreg) 6.25 mg PO BID COUNTS INCLUDE 234 BEDS AT THE [facility] Last Admin: 05/28/18 17:50 Dose: 6.25 mg Dabigatran (Pradaxa) 75 mg PO BID COUNTS INCLUDE 234 BEDS AT THE [facility]; Protocol Last Admin: 05/28/18 17:48 Dose: 75 mg Digoxin (Digoxin) 0.125 mg PO MWF@1400 COUNTS INCLUDE 234 BEDS AT THE [facility] Last Admin: 05/28/18 13:36 Dose: 0.125 mg Hydromorphone HCl (Dilaudid) 1 mg PO Q4H PRN PRN Reason: Pain, moderate (4-7) Last Admin: 05/28/18 13:36 Dose: 1 mg Hydromorphone HCl (Dilaudid) 0.5 mg IVP Q4H PRN PRN Reason: Pain, severe (8-10) Last Admin: 05/29/18 02:48 Dose: 0.5 mg Levalbuterol HCl (Xopenex) 1.25 mg IH [id number] COUNTS INCLUDE 234 BEDS AT THE [facility] Last Admin: 05/29/18 01:07 Dose: 1.25 mg Ondansetron HCl (Zofran Inj) 4 mg IVP ONCE PRN PRN Reason: Nausea/Vomiting Ondansetron HCl (Zofran Inj) 4 mg IVP Q6H PRN PRN Reason: Nausea/Vomiting Sevelamer HCl (Renagel) 800 mg PO TID COUNTS INCLUDE 234 BEDS AT [facility] Last Admin: 05/28/18 17:48 Dose: 800 mg - Labs Labs: 10/22/18 08:45 05/26/18 09:30 PT 13.1 SECONDS (9.4-12.5) H 05/22/18 22:54 INR 1.15 05/22/18 22:54 APTT 31.6 Seconds (25.1-36.5) 05/22/18 22:54 - Constitutional Appears: Non-toxic, No Acute Distress - Head Exam Head Exam: NORMAL INSPECTION, NORMOCEPHALIC - Eye Exam Eye Exam: Normal appearance Pupil Exam: NORMAL ACCOMODATION - ENT Exam ENT Exam: Mucous Membranes Moist, Normal Exam - Respiratory Exam Respiratory Exam: Clear to Ausculation Bilateral, NORMAL BREATHING PATTERN - Cardiovascular Exam Cardiovascular Exam: +S1, +S2 - GI/Abdominal Exam GI & Abdominal Exam: Soft, Normal Bowel Sounds - Exam Additional comments: ESRD on hemodialysis 3x a week (TTHS) - Extremities Exam Additional comments: left arm AV shunt positive bruit left leg ronen wrapped less swelling - Neurological Exam Neurological Exam: Alert, Awake, Oriented x3 - Psychiatric Exam Psychiatric exam: Normal Affect, Normal Mood - Skin Skin Exam: Dry, Normal Color, Warm Assessment and Plan - Assessment and Plan (Free Text) Assessment: A 57 year old who came in to the ER due to fractured left knee due to fall. History of non obstructive coronary artery disease, ESRD on hemodialysis, left arm AV shunt, COPD, asthma, GI bleeding, GI atriovenous malformation,hypertension, hyperparathyroidism, asthma, GERD, peptic ulcer disease, history of pulmonary hypertension, pericardial window, history of right hip surgery. She was cleared to undergo surgery of the left knee. status post ORIF of left knee, post transfusion for low H/H. Cardiac status stable. No distress, physical therapy in progress. Status post left knee surgery POD#6. Clinically stable. Plan: Clinically stable Cardiac status stable Heart rate stable Blood pressure controlled Status post left knee surgery POD#6 PRN medication for left knee pain Continue physical therapy Discharge planning Possible discharge today after hemodialysis On Lipitor 80 mg daily,Coreg 6.25mg BID,Digoxin 0.125 mg MWF, Pradaxa 75 mg BID,Dilaudid PRN for pain Continue current medications Continue current treatment Chart reviewed Will follow up Plan and treatment discussed with Dr. Mccullough
[2018-05-29 07:53] LABS: HEMOGLOBIN 8.8 g/dL (12.0-16.0); MEAN CELL VOLUME 82.8 fl (80.0-105.0); MEAN CORPUSCULAR HEMOGLOBIN 25.3 pg (25.0-35.0); MEAN CORPUSCULAR HGB CONC 30.6 g/dl (31.0-37.0); MEAN PLATELET VOLUME 9.1 fl (7.0-11.0); RBC 3.48 10^6/uL (3.5-6.1); RED CELL DISTRIBUTION WIDTH 18.2 % (11.5-14.5); WHITE BLOOD COUNT 5.2 10^3/ul (4.5-11.0)
[2018-05-29 08:18] LABS: CALCIUM 9.5 mg/dL (8.4-10.5)
[2018-05-29 08:47] VITALS: BP 105/64; PULSE 68; TEMP 98.1; O2SAT 99
--- NOTE | 2018-05-29 15:42 | PN ---
DATE: 05/29/2018 This note is an addition to dictated by nurse practitioner. REASON FOR THE CONSULTATION AND FOLLOWUP: Cardiac evaluation, preop evaluation, postop followup, status post knee surgery, awaiting to be discharged. SUBJECTIVE: The patient denies any chest pain, shortness of breath, or any palpitations. Seen in dialysis unit. The patient is stable. Continue anticoagulation for DVT prophylaxis for custodial. The patient is on Pradaxa 75 b.i.d. for DVT. Explained to the patient in detail that the patient is going to bleed more than usual in the dialysis, please be careful before inserting the and after at the end of dialysis because the patient is on Pradaxa (dabigatran). Continue current treatment. CVS status is stable. Moderate MR, moderate TR, cardiomyopathy. Ideally the patient would need AICD, but because of the high risk for infection because of the dialysis, we did not pursue and discussed with the patient. The patient has multiple infection episodes, so we will hold for now. Continue aggressive medical treatment including digoxin on Monday, Monday, and Monday including Coreg and continue anti-cholesterol medication. For now, we will sign off and glad to follow up p.r.n. Thank you, Dr. Gomez, for providing us the opportunity in taking care of the patient, Jacqui Kraus. Po Mccullough MD
--- NOTE | 2018-05-29 17:11 | PN ---
DATE: 05/29/2018 SUBJECTIVE: The patient is seen at the completion of dialysis, 1 L of fluid was removed. Blood pressures are stable. The patient is status post open reduction and internal fixation of a left femoral condyle comminuted fracture. She states that she would like to go home soon. MEDICATIONS: Medication list reviewed. The patient is currently on Coreg, digoxin, p.r.n. Dilaudid, Lipitor, Pradaxa, Renagel, Xopenex, and Zofran p.r.n. OBJECTIVE: INTAKE/OUTPUT: Intake 200, output not charted. VITAL SIGNS: Blood pressure presently at post dialysis 141/63 with a pulse of 77. Temperature 98.1, respiratory rate 20. HEENT: Show her to be normocephalic, atraumatic. Conjunctivae are pale. Sclerae are nonicteric. NECK: Supple. No neck vein distention. CHEST: Clear to auscultation and percussion. No rales, rhonchi, or wheezing. CARDIOVASCULAR: Shows a regular rate and rhythm. MR/TR. No S3, no S4, no rub. ABDOMEN: Soft. Bowel sounds normal. No rebound, guarding, or masses. EXTREMITIES: Show a cannulated left upper extremity AV fistula. No lower extremity edema. LABORATORY DATA: CBC: White blood cell count today 5.2, hemoglobin 8.8 with a platelet count of 96,000. Chemistries from today: Sodium 133, potassium 5.2. BUN 52 with a creatinine of 7. Bicarbonate level is 28. Calcium is 9.5 with a phosphorus level of 6.1. Microbiology, no specimens for comment. ASSESSMENT: 1. Status post comminuted fracture of the left femoral condyle, status post open reduction and internal fixation. 2. History of end-stage renal disease. The patient is stable on 3 times a week dialysis. 3. History of hypertension. Blood pressure remains controlled on present medication. 4. History of anemia. The patient will continue to receive Aranesp per protocol with dialysis. 5. History of secondary hyperparathyroidism. Phosphorus level was elevated at 6.1. The patient will continue a renal diet and binder therapy. 5. History of asthma and chronic obstructive pulmonary disease. This appears to be stable. 6. Past history of gastrointestinal bleed, not an issue at present. 7. History of hyperlipidemia. The patient will continue low-fat, low-cholesterol diet along with statin therapy. 8. History of pulmonary hypertension with mild cardiomyopathy, mitral regurgitation, tricuspid regurgitation, currently stable. PLAN: 1. Continue 3 times a week dialysis. 2. Continue Aranesp per protocol with dialysis. 3. Continue renal diet and phosphorus binders. 4. Discharge planning. Possible discharge post dialysis today. The patient would like to go home. Deon Mathews MD
--- NOTE | 2018-05-30 03:57 | DS ---
HISTORY OF PRESENT ILLNESS: The patient is 57 years old, seen and examined, lying in bed, seems to be comfortable. PHYSICAL EXAMINATION: VITAL SIGNS: She is afebrile, pulse 60, respirations 20 and blood pressure 105/64. LUNGS: Bilateral good airflow. No rhonchi or crackle. HEART: S1 and S2, audible. ABDOMEN: Soft and nontender. No rebound. No guarding. NEUROLOGIC: She is awake, alert and communicative. EXTREMITIES: Left knee is in the immobilizer. LABORATORY DATA: WBC 5.2, hemoglobin 8.8, hematocrit 28.8 and platelets of 96. Chemistry, sodium 133, potassium 5.2, chloride 95, CO2 of 28, BUN 52, creatinine 7.0 and blood sugar of 96. ASSESSMENT: 1. Status post fall. 2. Left knee fracture. 3. Hypertension. 4. End-stage renal disease, on hemodialysis. 5. 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 Dominguez. PLAN: The patient was referred to [facility], which has a facility of hemodialysis, but the patient is adamant and does not want to go to any kind of subacute rehab, she would rather go home. I spoke to social psychologist, they will make arrangement for home therapy for the patient will be discharged home today. I will give her Dilaudid p.r.n. and Pradaxa to be used for one more week until the patient gets more ambulatory. She was explained in great length that if she starts bleeding from any site, she should immediately come to the emergency room because she is high risk because of her history of GI bleed in the past. Shawn Gomez MD
== END 2018-05-29 20:12 | disposition home health service (06) | DRG 480 ==
LOC: ED 13:06 → ERH 16:15 → 5RNO 18:02
PROVIDERS: ADMIT Internal Medicine; ATTEND Internal Medicine
PROC: 5A1D70Z Performance of Urinary Filtration, Intermittent, Less than 6 Hours Per Day (ICD-10-PCS; 2018-05-22)
PROC: 0QSC04Z Reposition Left Lower Femur with Internal Fixation Device, Open Approach (ICD-10-PCS; principal; 2018-05-23 13:00)
PROC: 5A1D70Z Performance of Urinary Filtration, Intermittent, Less than 6 Hours Per Day (ICD-10-PCS; 2018-05-24)
PROC: 5A1D70Z Performance of Urinary Filtration, Intermittent, Less than 6 Hours Per Day (ICD-10-PCS; 2018-05-26)
PROC: 30233N1 Transfusion of Nonautologous Red Blood Cells into Peripheral Vein, Percutaneous Approach (ICD-10-PCS; 2018-05-26)
PROC: 5A1D70Z Performance of Urinary Filtration, Intermittent, Less than 6 Hours Per Day (ICD-10-PCS; 2018-05-29)
DX: S72.432A Displaced fracture of medial condyle of left femur, initial encounter for closed fracture (principal); N18.6 End stage renal disease; I42.9 Cardiomyopathy, unspecified; K86.1 Other chronic pancreatitis; N25.81 Secondary hyperparathyroidism of renal origin; D62 Acute posthemorrhagic anemia; I13.2 Hypertensive heart and chronic kidney disease with heart failure and with stage 5 chronic kidney disease, or end stage renal disease; M25.462 Effusion, left knee; D63.1 Anemia in chronic kidney disease; D69.6 Thrombocytopenia, unspecified; K21.9 Gastro-esophageal reflux disease without esophagitis; E03.9 Hypothyroidism, unspecified; E78.5 Hyperlipidemia, unspecified; E83.39 Other disorders of phosphorus metabolism; F17.200 Nicotine dependence, unspecified, uncomplicated; I08.1 Rheumatic disorders of both mitral and tricuspid valves; I25.10 Atherosclerotic heart disease of native coronary artery without angina pectoris; I27.20 Pulmonary hypertension, unspecified; I50.9 Heart failure, unspecified; J44.9 Chronic obstructive pulmonary disease, unspecified; K22.70 Barrett's esophagus without dysplasia; Z96.641 Presence of right artificial hip joint; W01.0XXA Fall on same level from slipping, tripping and stumbling without subsequent striking against object, initial encounter; Y92.000 Kitchen of unspecified non-institutional (private) residence as the place of occurrence of the external cause; Z99.2 Dependence on renal dialysis; Z87.11 Personal history of peptic ulcer disease; Z87.891 Personal history of nicotine dependence; Q65.01 Congenital dislocation of right hip, unilateral; Z79.01 Long term (current) use of anticoagulants; Z79.02 Long term (current) use of antithrombotics/antiplatelets

== ENCOUNTER 2018-06-15 16:10 | Inpatient (IN) | payer MEDICARE, BC ==
[2018-06-15 16:11] VITALS: BMI 22.9
--- NOTE | 2018-06-15 16:33 | ED PDOC ---
Arrival/HPI - General Chief Complaint: Abnormal Labs Time Seen by Provider: 06/15/18 16:12 Historian: Patient - History of Present Illness Narrative History of Present Illness (Text): 06/15/18 16:30 A 57 year old female a current smoker, whose past medical history includes SRD on hemodialysis (T/T/S), hypertension, COPD, chronic anemia, Hx GI bleed/GERD/Dan's, Hx C. diff, chronic pancreatitis, right hip replacement, and small brain aneurysm, presents to the emergency department complaining of low hemoglobin since earlier today. Patient reports she went to her dialysis appointment yesterday where she underwent blood work and this morning the dialysis center called her with blood work results showing a low hemoglobin count. Patient states Dr. Rose urged her to go to the emergency room. Patient reports experiencing lightheadedness and headache but reports no current pain. Patient notes her last transfusion was in October and she recently broke her left knee that is currently in a cast. Patient denies any fever, chills, shortness of breath, chest pain, diarrhea, nausea, vomiting, blood in stool, hematuria, weakness, urinary symptoms, back pain, neck pain, dizziness, or any other complaints. Nephrology: Dr. Rose PMD: Dr. Gomez Time/Duration: 24 hours (since yesterday) Symptom Onset: Gradual Symptom Course: Unchanged Activities at Onset: Light Context: Home Past Medical History - Provider Review Nursing Documentation Reviewed: Yes - Past History Past History: Non-Contributing - Infectious Disease Hx of Infectious Diseases: None - Tetanus Immunization Tetanus Immunization: Up to Date - Reproductive Menopause: Yes - Cardiac Hx Congestive Heart Failure: Yes Hx Hypertension: Yes - Pulmonary Hx Chronic Obstructive Pulmonary Disease (COPD): Yes - Neurological Hx Alzheimer's Disease: No Hx Dementia: No Hx Migraine: No Hx Parkinson's Disease: No Hx Seizures: No Hx Transient Ischemic Attacks (TIA): No - HEENT Hx HEENT Disorder: Yes Hx Blind: Yes (partial, left eye) - Renal Hx Renal Failure: Yes - Endocrine/Metabolic Hx Hypothyroidism: Yes - Hematological/Oncological Hx Blood Transfusions: Yes Hx Blood Transfusion Reaction: No - Integumentary Hx Dermatological Disorder: Yes (LEFT UPPER ARM SHUNT) Other/Comment: CALCIPHYLAXIS-DRY ROUND RASH ALL OVER HER BODY,ARMS,LEG. BILATERAL DISCOLORED DARK BROWN SKIN.TIGHT. - Musculoskeletal/Rheumatological Hx Falls: Yes - Gastrointestinal Hx Crohn's Disease: Yes Hx Diverticulitis: No Hx Gall Bladder Disease: Yes (GALLSTONES) Hx Pancreatitis: Yes - Genitourinary/Gynecological Hx Sexually Transmitted Diseases: No - Psychiatric Hx Anxiety: No Hx Bipolar Disorder: No Hx Depression: No Hx Post Traumatic Stress Disorder: No Hx Schizophrenia: No Hx Substance Use: No - Surgical History Hx Appendectomy: No Hx Cholecystectomy: Yes Hx Coronary Stent: No - Anesthesia Hx Anesthesia Reactions: No Hx Malignant Hyperthermia: No - Suicidal Assessment Feels Threatened In Home Enviroment: No Family/Social History - Physician Review Nursing Documentation Reviewed: Yes Family/Social History: Unknown Family HX Smoking Status: Former Smoker Hx Alcohol Use: No Hx Substance Use: No Hx Substance Use Treatment: No Allergies/Home Meds Allergies/Adverse Reactions: Allergies aspirin Allergy (Severe, Verified 02/03/18 22:30) ANAPHYLAXIS ciprofloxacin Allergy (Severe, Verified 02/03/18 22:30) ANAPHYLAXIS [place] And Derivatives Allergy (Severe, Verified 02/03/18 22:30) ANAPHYLAXIS enalapril Allergy (Severe, Verified 02/03/18 22:30) HIVES heparin Allergy (Severe, Verified 02/03/18 22:30) ANAPHYLAXIS latex Allergy (Severe, Verified 02/03/18 22:30) ANAPHYLAXIS Penicillins Allergy (Severe, Verified 02/03/18 22:30) ANAPHYLAXIS Sulfa (Sulfonamide Antibiotics) Allergy (Severe, Verified 02/03/18 22:30) ANAPHYLAXIS levothyroxine sodium [From Levoxyl] Allergy (Intermediate, Verified 02/03/18 22:31) RASH acetaminophen Allergy (Mild, Verified 02/03/18 22:31) RASH codeine Allergy (Mild, Verified 02/03/18 22:31) RASH enoxaparin Allergy (Mild, Verified 02/03/18 22:31) RASH iodine Allergy (Mild, Verified 02/03/18 22:31) RASH influenza virus vaccine, specific Allergy (Verified 02/03/18 22:31) hives Home Medications: Home Meds Medication Instructions Recorded Confirmed Esomeprazole Magnesium [Nexium] 40 mg PO DAILY 08/30/17 02/03/18 Ammonium Lactate 12% [Lac-Hydrin 1 applic TOP DAILY 10/10/17 02/03/18 12% Cream (140 g)] Levalbuterol [Xopenex] 1.25 mg IH Q6H 10/10/17 02/03/18 Sevelamer [Renagel] 800 mg PO DAILY 10/10/17 02/03/18 Levocetirizine Dihydrochloride 5 mg PO DAILY 12/21/17 02/03/18 Review of Systems - Physician Review All systems were reviewed & negative as marked: Yes - Review of Systems Constitutional: absent: Fevers, Night Sweats Respiratory: absent: SOB Cardiovascular: absent: Chest Pain Gastrointestinal: absent: Diarrhea, Nausea, Vomiting Genitourinary Female: absent: Hematuria, Urine Output Changes, Other (no blood in stool) Musculoskeletal: absent: Back Pain, Neck Pain Neurological: Headache, Other (+lightheadedness). absent: Dizziness Physical Exam Vital Signs Reviewed: Yes Vital Signs Temp Pulse Resp BP Pulse Ox 06/15/18 16:19 98.7 F 101 H 20 137/70 99 Temperature: Afebrile Blood Pressure: Normal Pulse: Tachycardic Respiratory Rate: Normal Appearance: Positive for: Well-Appearing, Non-Toxic, Comfortable Pain Distress: None Mental Status: Positive for: Alert and Oriented X 3 - Systems Exam Head: Present: Atraumatic, Normocephalic Pupils: Present: PERRL Extroacular Muscles: Present: EOMI Conjunctiva: Present: Other (pale) Mouth: Present: Moist Mucous Membranes Neck: Present: Normal Range of Motion Respiratory/Chest: Present: Clear to Auscultation, Good Air Exchange. No: Respiratory Distress, Accessory Muscle Use Cardiovascular: Present: Regular Rate and Rhythm, Normal S1, S2. No: Murmurs Abdomen: No: Tenderness, Distention, Peritoneal Signs Back: Present: Normal Inspection Upper Extremity: Present: Other (+graft on left upper extremity with a good thrill) Lower Extremity: Present: Other (+left leg immobilized) Neurological: Present: GCS=15, CN II-XII Intact, Speech Normal Skin: Present: Warm, Dry, Normal Color. No: Rashes Psychiatric: Present: Alert, Oriented x 3, Normal Insight, Normal Concentration Medical Decision Making ED Course and Treatment: 06/15/18 16:32 Impression: 57 year old female presenting to the emergency room complaining of low hemoglobin. Plan: -- EKG -- Type and screen -- CMP -- CBC -- COAGs -- Reassess and disposition Prior Visits: Notes and results from previous visits were reviewed. Progress Notes: 06/15/18 16:34 EKG: Ordered, reviewed, and independently interpreted the EKG. Rate : 101 BPM Rhythm : Sinus tachycardia Interpretation : Left axis deviation, LVH. 06/15/18 18:[address] Gomez who is aware and agrees with emergency department management plan to admit patient to remote telemetry for further observation. - Scribe Statement The provider has reviewed the documentation as recorded by the Corinne Correa All medical record entries made by the Debraibe were at my direction and personally dictated by me. I have reviewed the chart and agree that the record accurately reflects my personal performance of the history, physical exam, medical decision making, and the department course for this patient. I have also personally directed, reviewed, and agree with the discharge instructions and disposition. Disposition/Present on Arrival - Present on Arrival Any Indicators Present on Arrival: No History of DVT/PE: No History of Uncontrolled Diabetes: No Urinary Catheter: No History of Decub. Ulcer: No History Surgical Site Infection Following: None - Disposition Have Diagnosis and Disposition been Completed?: Yes Diagnosis: Anemia, ESRD (end stage renal disease) Disposition: HOSPITALIZED Disposition Time: 17:35 Condition: FAIR
[2018-06-15 17:22] LABS: BASO # 0.04 K/mm3 (0.0-2.0); BASO % 0.7 % (0.0-3.0); EOS # 0.3 (0.0-0.7); EOS % 6.1 % (1.5-5.0); GRAN # 3.63 (1.4-6.5); GRAN % 66.7 % (50.0-68.0); LYMPH # 1.1 (1.2-3.4); LYMPH % 20.8 % (22.0-35.0); MEAN CORPUSCULAR HEMOGLOBIN 25.4 pg (25.0-35.0); MEAN CORPUSCULAR HGB CONC 30.2 g/dl (31.0-37.0); MEAN PLATELET VOLUME 8.6 fl (7.0-11.0); MONO # 0.3 (0.1-0.6); MONO % 5.7 % (1.0-6.0); RBC 2.44 10^6/uL (3.5-6.1); RED CELL DISTRIBUTION WIDTH 19.4 % (11.5-14.5); WHITE BLOOD COUNT 5.4 10^3/uL (4.5-11.0)
[2018-06-15 17:31] LABS: INR 1.17; PARTIAL THROMBOPLASTIN TIME 37.5 Seconds (25.1-36.5); PROTHROMBIN TIME 13.4 SECONDS (9.4-12.5)
[2018-06-15 17:34] LABS: HEMOGLOBIN 6.2 g/dL (12.0-16.0)
[2018-06-15 17:37] LABS: ALB/GLOB RATIO 1.2 (1.1-1.8); ALBUMIN 3.3 g/dL (3.0-4.8); CALCIUM 8.9 mg/dL (8.4-10.5)
[2018-06-15] MEDS ORDERED: Oxycodone/Acetaminophen 5/325 mg Tab PO STA (18:21)
[2018-06-15] MEDS: Levalbuterol 1.25 MG/3 ML Inhal Soln UD IH SCH (19:31)
--- NOTE | 2018-06-15 23:24 | HP ---
DATE OF EXAM: 06/15/2018 HISTORY OF PRESENT ILLNESS: The patient is 57 years old who was sent by Dr. Rose for blood transfusion, because she was found to be anemic during dialysis, her hemoglobin was 6.2 with hematocrit of 20.5. The patient was recently admitted on 05/22/2018 when she fell and had left knee fracture, underwent open reduction and internal fixation by Dr. Ibarra. The patient was advised to go to [facility], but she opted to go home. She did not like to go any of that place, but home. She has not visited me in my office either and has been getting dialysis as outpatient. So, today, during dialysis, she was found to be anemic. She has complained of generalized weakness, complained of pain in the knee area where she had surgery done. PAST MEDICAL HISTORY: Significant for: 1. Hypertension. 2. COPD. 3. Chronic anemia. 4. History of generalized AVMs. 5. History of Dan's esophagus. 6. End-stage renal disease, on hemodialysis. 7. Status post right hip replacement. 8. History of small brain aneurysm. ALLERGIES: PATIENT HAS MULTIPLE ALLERGIES INCLUDING ASPIRIN, CIPRO, CITRUS DERIVATIVE, ENALAPRIL, HEPARIN, LATEX, PENICILLIN, SULFA, LEVOTHYROXINE, ACETAMINOPHEN, CODEINE, ENOXAPARIN, IODINE, AND FLU VACCINE. MEDICATIONS AT HOME: She is on Renagel 800 daily, Xyzal, Xopenex, hydromorphone, Nexium, digoxin 0.125 daily, Pradaxa 75 twice a day, Coreg 6.25 twice a day, Lipitor 80 mg daily. SOCIAL HISTORY: She lives with her boyfriend. She has 2 grown up boys. PHYSICAL EXAMINATION GENERAL: She looks pale. VITAL SIGNS: She is afebrile, pulse 94, respirations 18, blood pressure 140/70. LUNGS: Bilateral diffuse decreased breath sounds. HEART: S1 and S2 audible. ABDOMEN: Soft, nontender. No rebound. No guarding. NEUROLOGICAL: Patient is awake and alert, able to communicate. Left knee is in the immobilizer, limited exam. LABORATORY DATA: WBC is 5.4, hemoglobin 6.2, hematocrit 20.5, and platelets of 124,000. PT 13.4, INR 1.17. Chemistry: Sodium 137, potassium 3.6, chloride 97, CO2 of 29, BUN 43, creatinine 3.8, and blood sugar of . Total bili 1.5, alk phos 480. ASSESSMENT: 1. Symptomatic anemia. 2. Recent left knee surgery. 3. History of gastrointestinal bleed. 4. End-stage renal disease, on hemodialysis. 5. History of Dan's esophagus. PLAN: The patient will receive one blood transfusion today and second tomorrow. We will resume her medications, out of bed to chair. I will request Dr. Rose and Dr. Ibarra to evaluate the patient. Shawn Gomez MD
[2018-06-16] MEDS: Levalbuterol 1.25 MG/3 ML Inhal Soln UD IH SCH ×4 (02:48→20:16)
[2018-06-16 07:08] LABS: BASO # 0.02 K/mm3 (0.0-2.0); BASO % 0.5 % (0.0-3.0); EOS # 0.3 (0.0-0.7); EOS % 8.4 % (1.5-5.0); GRAN # 2.17 (1.4-6.5); GRAN % 57.1 % (50.0-68.0); HEMOGLOBIN 7.4 g/dL (12.0-16.0); LYMPH # 1.1 (1.2-3.4); LYMPH % 28.7 % (22.0-35.0); MEAN CELL VOLUME 83.7 fl (80.0-105.0); MEAN CORPUSCULAR HEMOGLOBIN 26.2 pg (25.0-35.0); MEAN CORPUSCULAR HGB CONC 31.4 g/dl (31.0-37.0); MEAN PLATELET VOLUME 9.1 fl (7.0-11.0); MONO # 0.2 (0.1-0.6); MONO % 5.3 % (1.0-6.0); RBC 2.82 10^6/uL (3.5-6.1); RED CELL DISTRIBUTION WIDTH 18.1 % (11.5-14.5); WHITE BLOOD COUNT 3.8 10^3/uL (4.5-11.0)
[2018-06-16 07:47] LABS: ALB/GLOB RATIO 1.1 (1.1-1.8); BILIRUBIN,DIRECT 1.1 mg/dL (0.0-0.4); CALCIUM 8.8 mg/dL (8.4-10.5)
--- NOTE | 2018-06-16 09:45 | CARD ---
APPROVED REPORT Date of service: 06/15/2018 EKG Measurement Heart [id number] <Conclusion> Poor data quality, interpretation may be adversely affected Sinus tachycardia Left ventricular hypertrophy with repolarization abnormality Abnormal ECG
[2018-06-16 12:34] LABS: IMMUNOGLOBULIN G 554.6 mg/dL (700.0-1600.0); IMMUNOGLOBULIN M 36.6 mg/dL (40.0-230.0)
--- NOTE | 2018-06-16 12:38 | CP.PCM.CON ---
<Elver Diaz - Last Filed: 06/16/18 12:54> History of Present Illness - History of Present Illness History of Present Illness: PGY6 GI Fellow Consult Note Patient is a 57yo female with PMHx significant for ESRD on HD, Biventricular systolic congestive heart failure with EF 25%, tricuspid regurgitation and pulmonary hypertension, prior GI bleeding with dieulefoy lesion vs gastric varices, cirrhosis and portal hypertension complicated by esophageal varices, portal hypertensive gastropathy and coagulopathy, elevated chromogranin A and suspicion for carcinoid, possible secondary iron overload/hemochromatosis and chronic anemia who presented to the ED from dialysis with anemia. Patient has had extensive work up previously for similar issues. She does admit to recent bleeding from skin lesions which have erupted in the last 1-2 months along with gum bleeding when brushing her teeth. She has been on anticoagulation following recent knee surgery following left knee fracture. Has not noted any blood loss in the form of melena, hematochezia or hematemesis. Denies any fatigue, dizzine ss, lightheadedness, palpitations. 12 system ROS performed and negative except where stated PMHx: See HPI PSHx: Pericardial window, Cholecystectomy, x2, right hip replacement, recent left knee repair following fracture, Left AVF formation FHx: Discussed with patient and noncontributory Social: 1/2ppd smoker, denies EtOH or illicit drug use Endo: Most recent EGD 10/22 - Grade I varices, Endoclips noted from prior procedure (Dieulefoy vs gastric varix) Past Patient History - Infectious Disease Hx of Infectious Diseases: None - Tetanus Immunizations Tetanus Immunization: Up to Date - Past Medical History & Family History Past Medical History?: Yes - Past Social History Smoking Status: Current Some Days Smoker - CARDIAC Hx Congestive Heart Failure: Yes Hx Hypertension: Yes - PULMONARY Hx Chronic Obstructive Pulmonary Disease (COPD): Yes - NEUROLOGICAL Hx Alzheimer's Disease: No Hx Dementia: No Hx Migraine: No Hx Parkinson's Disease: No Hx Seizures: No Hx Transient Ischemic Attacks (TIA): No - HEENT Hx HEENT Problems: Yes Hx Blind: Yes (partial, left eye) - RENAL Hx Renal Failure: Yes - ENDOCRINE/METABOLIC Hx Hypothyroidism: Yes - HEMATOLOGICAL/ONCOLOGICAL Hx Anemia: Yes - INTEGUMENTARY Hx Dermatological Problems: Yes (LEFT UPPER ARM SHUNT) Other/Comment: CALCIPHYLAXIS-DRY ROUND RASH ALL OVER HER BODY,ARMS,LEG. BILATERAL DISCOLORED DARK BROWN SKIN.TIGHT. - MUSCULOSKELETAL/RHEUMATOLOGICAL Hx Falls: Yes (Recent left knee fx) - GASTROINTESTINAL Hx Crohn's Disease: Yes Hx Diverticulitis: No Hx Gall Bladder Disease: Yes (GALLSTONES) Hx Pancreatitis: Yes - GENITOURINARY/GYNECOLOGICAL Hx Sexually Transmitted Disorders: No - PSYCHIATRIC Hx Anxiety: No Hx Bipolar Disorder: No Hx Depression: No Hx Post Traumatic Stress Disorder: No Hx Schizophrenia: No - SURGICAL HISTORY Hx Appendectomy: No Hx Cholecystectomy: Yes Hx Coronary Stent: No - ANESTHESIA Hx Anesthesia Reactions: No Hx Malignant Hyperthermia: No Meds Allergies/Adverse Reactions: Allergies Allergy/AdvReac Type Severity Reaction Status Date / Time aspirin Allergy Severe ANAPHYLAXIS Verified 02/03/18 22:30 ciprofloxacin Allergy Severe ANAPHYLAXIS Verified 02/03/18 22:30 [place] And Derivatives Allergy Severe ANAPHYLAXIS Verified 02/03/18 22:30 enalapril Allergy Severe HIVES Verified 02/03/18 22:30 heparin Allergy Severe ANAPHYLAXIS Verified 02/03/18 22:30 latex Allergy Severe ANAPHYLAXIS Verified 02/03/18 22:30 Penicillins Allergy Severe ANAPHYLAXIS Verified 02/03/18 22:30 Sulfa (Sulfonamide Allergy Severe ANAPHYLAXIS Verified 02/03/18 22:30 Antibiotics) levothyroxine sodium Allergy Intermediate RASH Verified 02/03/18 22:31 [From Levoxyl] acetaminophen Allergy Mild RASH Verified 02/03/18 22:31 codeine Allergy Mild RASH Verified 02/03/18 22:31 enoxaparin Allergy Mild RASH Verified 02/03/18 22:31 iodine Allergy Mild RASH Verified 02/03/18 22:31 influenza virus vaccine, Allergy hives Verified 02/03/18 22:31 specific - Medications Medications: Current Medications Atorvastatin Calcium (Lipitor) 80 mg PO DIN [facility] Last Admin: 06/15/18 19:31 Dose: 80 mg Carvedilol (Coreg) 6.25 mg PO BID [facility] Last Admin: 06/16/18 09:06 Dose: 6.25 mg Digoxin (Digoxin) 0.125 mg PO MoWeFr@1400 [facility] Hydromorphone HCl (Dilaudid) 2 mg PO Q4H PRN PRN Reason: Pain, moderate (4-7) Last Admin: 06/16/18 09:58 Dose: 2 mg Levalbuterol HCl (Xopenex) 1.25 mg IH Q6H [facility] Last Admin: 06/16/18 08:03 Dose: 1.25 mg Pantoprazole Sodium (Protonix Inj) 40 mg IVP DAILY [facility] Last Admin: 06/16/18 09:05 Dose: 40 mg Sevelamer HCl (Renagel) 800 mg PO DAILY [facility] Last Admin: 06/16/18 09:07 Dose: 800 mg Results - Vital Signs Recent Vital Signs: Last Vital Signs Temp 97.6 F 06/16/18 06:00 Pulse 76 06/16/18 10:00 Resp 20 06/16/18 06:00 BP 124/60 06/16/18 09:06 Pulse Ox 97 06/16/18 06:00 - Labs Result Diagrams: 06/16/18 06:00 06/16/18 06:00 Labs: Laboratory Results - last 24 hr 06/15/18 06/15/18 06/15/18 17:05 17:05 17:05 WBC 5.4 RBC 2.44 L Hgb 6.2 L* D Hct 20.5 L* MCV 84.0 MCH 25.4 MCHC 30.2 L RDW 19.4 H Plt Count 124 MPV 8.6 Gran % 66.7 Lymph % (Auto) 20.8 L [place] % (Auto) 5.7 Eos % (Auto) 6.1 H Baso % (Auto) 0.7 Gran # 3.63 Lymph # (Auto) 1.1 L [place] # (Auto) 0.3 Eos # (Auto) 0.3 Baso # (Auto) 0.04 PT 13.4 H INR 1.17 APTT 37.5 H Sodium 137 Potassium 3.6 Chloride 97 L Carbon Dioxide 29 Anion Gap 14 BUN 43 H Creatinine 3.8 H Est GFR ( Amer) 15 Est GFR (Non-Af Amer) 12 Random Glucose 86 Calcium 8.9 Total Bilirubin 1.5 H Direct Bilirubin AST 32 ALT 28 Alkaline Phosphatase 480 H D Total Protein 6.0 Albumin 3.3 Globulin 2.8 Albumin/Globulin Ratio 1.2 Digoxin IgG IgM Blood Type Antibody Screen Crossmatch BBK History Checked 06/15/18 06/16/18 06/16/18 17:07 06:00 06:00 WBC 3.8 L D RBC 2.82 L Hgb 7.4 L Hct 23.6 L MCV 83.7 MCH 26.2 MCHC 31.4 RDW 18.1 H Plt Count 96 L MPV 9.1 Gran % 57.1 Lymph % (Auto) 28.7 [place] % (Auto) 5.3 Eos % (Auto) 8.4 H Baso % (Auto) 0.5 Gran # 2.17 Lymph # (Auto) 1.1 L [place] # (Auto) 0.2 Eos # (Auto) 0.3 Baso # (Auto) 0.02 PT INR APTT Sodium Potassium Chloride Carbon Dioxide Anion Gap BUN Creatinine Est GFR ( Amer) Est GFR (Non-Af Amer) Random Glucose Calcium Total Bilirubin Direct Bilirubin AST ALT Alkaline Phosphatase Total Protein Albumin Globulin Albumin/Globulin Ratio Digoxin < 0.4 L IgG IgM Blood Type O POSITIVE Antibody Screen Negative Crossmatch See Detail BBK History Checked Patient has bt 06/16/18 06/16/18 06:00 06:00 WBC RBC Hgb Hct MCV MCH MCHC RDW Plt Count MPV Gran % Lymph % (Auto) [place] % (Auto) Eos % (Auto) Baso % (Auto) Gran # Lymph # (Auto) [place] # (Auto) Eos # (Auto) Baso # (Auto) PT INR APTT Sodium 135 Potassium 3.9 Chloride 97 L Carbon Dioxide 27 Anion Gap 14 BUN 48 H Creatinine 4.5 H Est GFR ( Amer) 12 Est GFR (Non-Af Amer) 10 Random Glucose 75 Calcium 8.8 Total Bilirubin 1.6 H Direct Bilirubin 1.1 H AST 32 ALT 27 Alkaline Phosphatase 389 H Total Protein 5.5 L Albumin 3.0 Globulin 2.6 Albumin/Globulin Ratio 1.1 Digoxin IgG 554.6 L IgM 36.6 L Blood Type Antibody Screen Crossmatch BBK History Checked Assessment & Plan - Assessment and Plan (Free Text) Assessment: Patient is a 57yo female with PMHx significant for ESRD on HD, Biventricular systolic congestive heart failure with EF 25%, tricuspid regurgitation and pulmonary hypertension, prior GI bleeding with dieulefoy lesion vs gastric varices, cirrhosis and portal hypertension complicated by esophageal varices, portal hypertensive gastropathy and coagulopathy, elevated chromogranin A and suspicion for carcinoid, possible secondary iron overload/hemochromatosis and chronic anemia who presented to the ED from dialysis with anemia -Anemia -Systolic heart failure - biventricular with LVEF 25% -Pulmonary hypertension -Tricuspid regurgitation -Congestive hepatopathy/Cirrhosis c/b esophageal varices, portal hypertensive gastropathy - etiology suspected to be congestive 2/2 cardiac dysfunction though other etiologies such as iron overload may contribute to overall disease process Plan: -Recommend ongoing PPi therapy with Protonix 40mg Daily as ordered -Start Carafate 1g Q12H, avoid giving other medications for 2 hours prior/after administration if possible -Transfuse as needed - AVOID overtransfusion in this cirrhotic patient with varices - goal HGB ~8 -If evidence of overt bleeding, recommend initiation of octreotide gtt - Date & Time Date: 06/16/18 Time: 08:30 <Jesus Manuel Rosado V - Last Filed: 06/17/18 23:51> Meds - Medications Medications: Current Medications Atorvastatin Calcium (Lipitor) 80 mg PO DIN [facility] Last Admin: 06/17/18 17:14 Dose: 80 mg Carvedilol (Coreg) 6.25 mg PO BID [facility] Last Admin: 06/17/18 17:15 Dose: 6.25 mg Digoxin (Digoxin) 0.125 mg PO MoWeFr@1400 [facility] Hydromorphone HCl (Dilaudid) 2 mg PO Q4H PRN PRN Reason: Pain, moderate (4-7) Last Admin: 06/17/18 22:31 Dose: 2 mg Levalbuterol HCl (Xopenex) 1.25 mg IH Q6H [facility] Last Admin: 06/17/18 19:52 Dose: 1.25 mg Pantoprazole Sodium (Protonix Inj) 40 mg IVP DAILY [facility] Last Admin: 06/17/18 09:50 Dose: 40 mg Sevelamer HCl (Renagel) 800 mg PO DAILY [facility] Last Admin: 06/17/18 09:50 Dose: 800 mg Sucralfate (Carafate Tab) 1 gm PO 0600,1600 [facility] Last Admin: 06/17/18 17:15 Dose: 1 gm Results - Vital Signs Recent Vital Signs: Last Vital Signs Temp 97.6 F 06/17/18 20:00 Pulse 73 06/17/18 20:00 Resp 20 06/17/18 20:00 BP 122/71 06/17/18 20:00 Pulse Ox 96 06/17/18 20:00 - Labs Result Diagrams: 06/17/18 16:50 06/16/18 06:00 Labs: Laboratory Results - last 24 hr 06/17/18 06/17/18 14:40 16:50 WBC 5.1 D RBC 3.48 L Hgb 9.5 L D Hct 29.8 L MCV 85.6 MCH 27.3 MCHC 31.9 RDW 17.2 H Plt Count 88 L MPV 9.2 PT 13.3 H INR 1.16 APTT 40.2 H Attending/Attestation - Attestation I have personally seen and examined this patient.: Yes I have fully participated in the care of the patient.: Yes I have reviewed all pertinent clinical information: Yes Notes (Text): p 06/17/18 23:51
--- NOTE | 2018-06-16 15:23 | PN ---
DATE: 06/16/2018 SUBJECTIVE: The patient is 57 years old who was sent by fundraising director after she was found to have hemoglobin of 6.2. Patient recently had a left knee surgery, for that she was placed on Pradaxa, but patient does have a history of AVMs and she also has gastropathy and cirrhosis of liver secondary to severe tricuspid regurgitation, so her Pradaxa is on hold. Patient seems to be more ambulatory, so we will discontinue Pradaxa. Patient will receive one more blood transfusion today and we will monitor for the next 24-48 hours, if she drops her hemoglobin further, she might need endoscopy. All of this was discussed with Dr. Rosado. PHYSICAL EXAMINATION: GENERAL: Today, she looks more awake, alert, oriented, communicative. VITAL SIGNS: She is afebrile, pulse 65, respirations 20 and blood pressure 121/66. LUNGS: Bilateral fair airflow. No rhonchi or crackle. HEART: S1 and S2 audible. ABDOMEN: Soft and nontender. No rebound. No guarding. NEUROLOGICAL: Patient is awake, alert, oriented, communicative. EXTREMITIES: Legs, left knee is in immobilizer. LABORATORY DATA: WBC 3.8, hemoglobin 7.4, hematocrit 23.6, platelets 96,000. Chemistry: Sodium 135, potassium 3.9, chloride 97, CO2 of 27, BUN 48, creatinine 4.5, blood sugar of 75. ASSESSMENT: 1. Symptomatic anemia. 2. End-stage renal disease, on hemodialysis. 3. History of fall and had left knee fracture. 4. Cirrhosis of liver. 5. Tricuspid regurgitation. 6. History of gastrointestinal bleed in the past. PLAN: Patient is off Pradaxa. Continue carvedilol, digoxin, analgesics as needed. I will continue her on Protonix. I will request Dr. Ibarra to evaluate patient as a followup because the patient went home and never received any therapy in acute rehab. Patient will receive one blood transfusion during dialysis today. We will follow up her H and H in a.m. Shawn Gomez MD [facility] # [id number]
[2018-06-16 19:27] VITALS: RESP 20
[2018-06-17] MEDS: Levalbuterol 1.25 MG/3 ML Inhal Soln UD IH SCH ×4 (01:29→19:52)
--- NOTE | 2018-06-17 12:21 | RAD ---
Date of service: 06/17/2018 PROCEDURE: Left Knee Radiographs. HISTORY: Pain. COMPARISON: CT scan from 05/22/2018 FINDINGS: BONES: Status post open reduction and internal fixation of acute nondisplaced intra-articular distal femoral intercondylar fracture with metallic plate and multiple screws. Bone alignment is normal. There is diffuse bone demineralization. JOINTS: Normal. No osteoarthritis. JOINT EFFUSION: There is a large suprapatellar joint effusion. OTHER FINDINGS: Mild suprapatellar soft tissue swelling. Anterior skin josephine are identified. IMPRESSION: Status post open reduction and internal fixation of acute nondisplaced intra-articular distal femoral intercondylar fracture with metallic plate and multiple screws. No acute complications.
--- NOTE | 2018-06-17 14:18 | PN ---
DATE: 06/17/2018 SUBJECTIVE: The patient has no complaints of any chest pain. No shortness of breath. No headaches or dizziness. PHYSICAL EXAMINATION: VITAL SIGNS: Temperature is 97.9, pulse is 78, blood pressure 145/71, respirations 20. GENERAL: The patient is lying in bed, flat, comfortable. HEENT: No oral lesion. Anicteric sclerae. Moist mucosa. NECK: No JVD, adenopathy, or thyromegaly. CARDIOVASCULAR: S1 and S2, regular. No murmurs, rubs, or gallops. LUNGS: Clear to auscultation bilaterally. No wheeze, rales, or rhonchi. ABDOMEN: Bowel sounds are positive, soft, nontender and nondistended. EXTREMITIES: No cyanosis, clubbing or edema. LABORATORY DATA: White count of 3.8, hemoglobin 7.4. Creatinine is 4.5. ASSESSMENT: 1. Acute anemia status post transfusion. 2. Left knee pain. 3. Cirrhosis to the liver. 4. Tricuspid regurgitation. 5. End-stage renal disease, on hemodialysis. 6. History of fall. PLAN: The patient received transfusion yesterday. Patient is on carvedilol, is going to continue digoxin. She is on pain medication with Dilaudid. She is on Protonix IV daily. She is receiving Renagel for secondary hyperparathyroidism. She is on a renal diet. She is being followed by Dr. Ibarra for her knee. She has an x-ray that has been ordered to evaluate her left knee pain. Juan Francisco Guerra MD
[2018-06-17 15:14] LABS: INR 1.16; PARTIAL THROMBOPLASTIN TIME 40.2 Seconds (25.1-36.5); PROTHROMBIN TIME 13.3 SECONDS (9.4-12.5)
[2018-06-17 17:00] LABS: HEMOGLOBIN 9.5 g/dL (12.0-16.0); MEAN CELL VOLUME 85.6 fl (80.0-105.0); MEAN CORPUSCULAR HEMOGLOBIN 27.3 pg (25.0-35.0); MEAN CORPUSCULAR HGB CONC 31.9 g/dl (31.0-37.0); MEAN PLATELET VOLUME 9.2 fl (7.0-11.0); RBC 3.48 10^6/uL (3.5-6.1); RED CELL DISTRIBUTION WIDTH 17.2 % (11.5-14.5); WHITE BLOOD COUNT 5.1 10^3/uL (4.5-11.0)
--- NOTE | 2018-06-17 18:06 | CON ---
DATE OF CONSULTATION: 06/17/2018 REASON FOR CONSULTATION: Severe anemia, dizziness, and lightheadedness. HISTORY OF PRESENT ILLNESS: This is a 57-year lady known to me from outpatient hemodialysis. The patient had a recent left knee fracture, status post ORIF. The patient was discharged home as per the patient's choices. She refused to go to rehab. She was found to have very low hemoglobin on outpatient blood work, her hemoglobin was 6.2. The patient reportedly was feeling dizzy at home. She denies any hematemesis. She denies any melena. She denies any nausea, vomiting, or diarrhea. She denies any abdominal pain. She does complain of easy bruisability, excessive bleeding from her skin tears, also she reports bleeding from her lips. PAST MEDICAL AND SURGICAL HISTORY: Hypertension, COPD, severe anemia, history of GI bleed, Dan's esophagus, ESRD, thrombocytopenia, right hip replacement, and left knee ORIF. FAMILY HISTORY: Hypertension. SOCIAL HISTORY: Ex-smoker, no alcohol use, no IV drug abuse. CURRENT MEDICATIONS: Carafate, Coreg 6.25 b.i.d., digoxin, Dilaudid, Lipitor, Protonix, Renagel, and Xopenex. ALLERGIES: ASPIRIN, CIPRO, ENALAPRIL, HEPARIN, LATEX, PENICILLIN, SYNTHROID, CODEINE, AND LOVENOX. REVIEW OF SYSTEMS: All systems are reviewed, pertinent positives as mentioned in the history of presenting illness, rest unremarkable. PHYSICAL EXAMINATION: GENERAL: Middle-aged lady, lying in bed. VITAL SIGNS: Blood pressure 130/80, heart rate 94, respiratory rate 18, and temperature 98. HEENT: Normocephalic, atraumatic. Positive pallor. NECK: Supple. No JVD. LUNGS: Bilateral equal air entry, bilateral equal expansion, no rales. CARDIAC: S1 and S2. Regular rate and rhythm. No murmur, no rub. ABDOMEN: Soft, nondistended, nontender, bowel sounds present. EXTREMITIES: Dressing of the left knee, brace of the left knee, no lower extremity edema. SKIN: Multiple hyperpigmented spots from purpura, multiple skin tears. LABORATORY DATA: WBC 3.8, hemoglobin 7.4, hematocrit 23.6, and platelets 96,000. Sodium 135, potassium 3.9, chloride 97, CO2 of 27, BUN 48, creatinine 4.5, glucose 75, calcium 8.8. Total bilirubin 1.6, direct bilirubin 1.1, albumin 3.0. Digoxin level less than 0.4. Immunoglobulins, IgG 554, IgM 36. ASSESSMENT: 1. End-stage renal disease, the patient received 2 units of blood during dialysis. 2. Biventricular congestive heart failure with decreased ejection fraction. 3. Pulmonary hypertension. 4. History of gastrointestinal bleed, Dieulafoy lesion, gastric varices. 5. Thrombocytopenia. 6. Portal hypertensive gastropathy and coagulopathy. 7. Recent left knee open reduction and internal fixation. PLAN: 1. The patient has received total of 4 units of blood, check hemoglobin. 2. Hematology evaluation for easy bleeding. 3. Monitor hemoglobin and hematocrit. 4. Next dialysis will be on Monday. Mansi Rose MD
[2018-06-18] MEDS: Levalbuterol 1.25 MG/3 ML Inhal Soln UD IH SCH ×3 (01:33→13:34)
[2018-06-18 07:08] VITALS: TEMP 98.1
--- NOTE | 2018-06-18 11:51 | PN ---
DATE: 06/18/2018 SUBJECTIVE: The patient is lying in bed. She reports she did not sleep last night because of pain. She denies any nausea or vomiting. She denies any abdominal pain. PHYSICAL EXAMINATION: GENERAL: Middle-aged lady, lying in bed. VITAL SIGNS: Blood pressure 133/66, heart rate 72, respiratory rate 20, temperature 98.1. HEENT: Normocephalic, atraumatic, positive pallor. NECK: Supple, no JVD. LUNGS: Bilateral equal air entry, bilateral equal expansion. CARDIAC: S1 and S2, regular rate and rhythm, no murmur, no rub. ABDOMEN: Soft, nondistended, nontender, bowel sounds present. EXTREMITIES: Dressing of the left knee. No lower extremity edema. LABORATORY DATA: Hemoglobin 9.5 yesterday. CURRENT MEDICATIONS: Coreg 6.25 t.i.d., digoxin, Dilaudid, Lipitor, Protonix, Renagel, Xopenex. ASSESSMENT: 1. Severe anemia, multifactorial, anemia of chronic kidney disease, cirrhosis of the liver? 2. End-stage renal disease. 3. Recent left knee open reduction and internal fixation. 4. Hypertension. PLAN: 1. Hemoglobin is stable after 4 units of blood transfusion. 2. Awaiting hematology evaluation. 3. Next dialysis will be tomorrow. 4. Okay to discharge if evaluations are completed. Mansi Rose MD
[2018-06-18 12:05] LABS: FOLATE 7.1 ng/mL
[2018-06-18] MEDS ORDERED: Digoxin 125 mcg (0.125 mg) Tab PO SCH (14:00)
[2018-06-18 14:11] VITALS: PULSE 66
--- NOTE | 2018-06-18 15:06 | CP.PCM.PN ---
<Krystina Johnson - Last Filed: 06/18/18 15:20> Subjective - Date & Time of Evaluation Date of Evaluation: 06/18/18 Time of Evaluation: 15:03 - Subjective Subjective: Gastroenterology Fellow/PGY6 Progress Note Patient denies abdominal pain. Tolerating diet. Notes brown stool yesterday without hematochezia or melena. Denies skin bruising or bleeding gums since admission. A 12-point review of systems negative except for as above. Objective - Vital Signs/Intake and Output Vital Signs (last 24 hours): Temp Pulse Resp BP Pulse Ox 98.1 F 72 20 133/66 98 06/18/18 06:00 06/18/18 10:19 06/18/18 06:00 06/18/18 10:19 06/18/18 06:00 Intake and Output: 06/18/18 06/18/18 06:59 18:59 Intake Total 210 Balance 210 - Medications Medications: Current Medications Atorvastatin Calcium (Lipitor) 80 mg PO DIN [facility] Last Admin: 06/17/18 17:14 Dose: 80 mg Carvedilol (Coreg) 6.25 mg PO BID [facility] Last Admin: 06/18/18 10:19 Dose: 6.25 mg Digoxin (Digoxin) 0.125 mg PO MoWeFr@1400 [facility] Last Admin: 06/18/18 14:09 Dose: 0.125 mg Hydromorphone HCl (Dilaudid) 2 mg PO Q4H PRN PRN Reason: Pain, moderate (4-7) Last Admin: 06/18/18 14:09 Dose: 2 mg Levalbuterol HCl (Xopenex) 1.25 mg IH Q6H [facility] Last Admin: 06/18/18 13:34 Dose: 1.25 mg Pantoprazole Sodium (Protonix Inj) 40 mg IVP DAILY [facility] Last Admin: 06/18/18 10:19 Dose: 40 mg Sevelamer HCl (Renagel) 800 mg PO DAILY [facility] Last Admin: 06/18/18 10:19 Dose: 800 mg Sucralfate (Carafate Tab) 1 gm PO 0600,1600 [facility] Last Admin: 06/18/18 06:23 Dose: 1 gm - Labs Labs: 06/17/18 16:50 06/16/18 06:00 PT 13.3 SECONDS (9.4-12.5) H 11/11/18 14:40 INR 1.16 06/17/18 14:40 APTT 40.2 Seconds (25.1-36.5) H 06/17/18 14:40 - Constitutional Appears: Non-toxic, No Acute Distress - Head Exam Head Exam: ATRAUMATIC, NORMOCEPHALIC - Eye Exam Eye Exam: EOMI, PERRL. absent: Scleral icterus Pupil Exam: PERRL. absent: Miosis, Mydriatic - ENT Exam ENT Exam: Mucous Membranes Moist, Normal Oropharynx - Neck Exam Neck Exam: Full ROM, Normal Inspection - Respiratory Exam Respiratory Exam: Clear to Ausculation Bilateral. absent: Rales, Rhonchi, Wheezes - Cardiovascular Exam Cardiovascular Exam: RRR, +S1, +S2. absent: Gallop, Rubs - GI/Abdominal Exam GI & Abdominal Exam: Soft, Normal Bowel Sounds. absent: Distended, Firm, Guarding, Rigid, Tenderness, Organomegaly, Rebound - Extremities Exam Extremities Exam: Normal Inspection. absent: Pedal Edema Additional comments: Left AV fistula with thrill, left knee bandage in place, C/D/I - Neurological Exam Neurological Exam: Alert, Awake - Psychiatric Exam Psychiatric exam: Normal Affect, Normal Mood - Skin Skin Exam: Dry, Intact, Normal Color, Warm Assessment and Plan - Assessment and Plan (Free Text) Assessment: 57 year old female with PMH of ESRD on HD, Biventricular systolic congestive heart failure with EF 25%, tricuspid regurgitation and pulmonary hypertension, prior GI bleeding 2/2 dieulafoy lesion vs gastric varices (06/2017), cirrhosis and portal hypertension complicated by esophageal varices, portal hypertensive gastropathy and coagulopathy, elevated chromogranin A and suspicion for carcinoid, possible secondary iron overload/hemochromatosis and chronic anemia presenting with anemia from dialysis. Active treatment of anemia s/p 3 Unit pRBCs with note of skin bruising and bleeding gums at home for 1-2 months, and recent left knee surgery on anticoagulation EGD 10/2017 showed Grade I varices, Endoclips noted from prior procedure for GI bleed 06/2017 for (Dieulafoy vs gastric varix). Plan: -anemia-multifactorial- CKD, cirrhosis -colonoscopy 11/2016- diminutive hyperplastic polyp, internal hemorrhoids -follow up hematology recommendations -transfusion goal of Hb 8 in setting of cirrhosis and varices -H/H with appropriate response -no signs of acute GI bleed -brown stool -Pradaxa held- on recent left knee ORIF 05/23/18 -follow up ortho recommendation -continue Protonix 40mg ACB and Pepcid QHS -continue Carafate 1g BID -will follow clinical course <Jesus Manuel Rosado V - Last Filed: 06/20/18 00:09> Objective - Vital Signs/Intake and Output Vital Signs (last 24 hours): Temp Pulse Resp BP Pulse Ox 98.1 F 70 20 139/72 99 06/18/18 17:03 06/18/18 17:12 06/18/18 17:03 06/18/18 17:12 06/18/18 17:03 - Labs Labs: 06/17/18 16:50 06/16/18 06:00 PT 13.3 SECONDS (9.4-12.5) H 06/17/18 14:40 INR 1.16 06/17/18 14:40 APTT 40.2 Seconds (25.1-36.5) H 06/17/18 14:40 Attending/Attestation - Attestation I have personally seen and examined this patient.: Yes I have fully participated in the care of the patient.: Yes I have reviewed all pertinent clinical information, including history, physical exam and plan: Yes Notes (Text): This is an addendum to GI consult report dictated by the GI Fellow.The patient was seen and examined earlier. Medical records, lab studies, imagings were revi ewed. Last 24 hours events reviewed. Agreed with the above treatment plan as outlined in GI Fellow 's notes with the addition of the following 06/20/18 00:08
[2018-06-18 17:04] VITALS: BP 139/72; PULSE 70; O2SAT 99
--- NOTE | 2018-06-19 05:30 | DS ---
HISTORY OF PRESENT ILLNESS: The patient is a 57-year-old, who recently had a fall on 05/22/2018 where she sustained a left ankle fracture. The patient underwent open reduction and internal fixation. She was seen in dialysis unit where her blood work was done and she was found to have a low hemoglobin of 6.2. She was referred by Dr. Rose to come to the emergency room and have blood transfusion done. The patient received 2 blood transfusions the very first day and then she received during dialysis. There is no active rectal bleeding; however, she is maintaining her hemoglobin. She needs physical therapy. She was evaluated by Dr. Ibarra and recommended for TCU, so she was accepted and being transferred to TCU today. PHYSICAL EXAMINATION: GENERAL: Today, she is awake, alert, oriented, and able to communicate. VITAL SIGNS: She is afebrile, pulse 70, respirations 20, and blood pressure 139/72. LUNGS: Bilateral fair airflow. No rhonchi or crackle. HEART: S1 and S2 audible. ABDOMEN: Soft, nontender. No rebound. No guarding. EXTREMITIES: Bilateral leg, no edema. NEUROLOGIC: The patient is awake, alert, oriented, and communicative. LABORATORY DATA: Retic count is 1.50, ferritin 643, vitamin B12 is 434. ASSESSMENT AND PLAN: 1. Symptomatic anemia. 2. History of arteriovenous malformation. 3. Cardiac cirrhosis. 4. Thrombocytopenia. 5. Chronic obstructive pulmonary disease. 6. End-stage renal disease, on hemodialysis. PLAN: The patient is being transferred to TCU where she will receive physical therapy. We will monitor her CBC and CMP. She will be monitored by Dr. Rose and Dr. Ibarra. She will receive physical therapy and gait training. Shawn Gomez MD
[2018-06-19] MEDS ORDERED: Pantoprazole 40 mg EC Tab PO SCH (06:00)
== END 2018-06-18 18:16 | DRG 811 ==
LOC: ED 16:10 → ERH 18:16 → 3RSO 20:25
PROVIDERS: ADMIT Internal Medicine; ATTEND Internal Medicine
PROC: 30233N1 Transfusion of Nonautologous Red Blood Cells into Peripheral Vein, Percutaneous Approach (ICD-10-PCS; principal; 2018-06-15)
PROC: 5A1D70Z Performance of Urinary Filtration, Intermittent, Less than 6 Hours Per Day (ICD-10-PCS; 2018-06-16)
DX: D64.9 Anemia, unspecified (principal); N18.6 End stage renal disease; I13.2 Hypertensive heart and chronic kidney disease with heart failure and with stage 5 chronic kidney disease, or end stage renal disease; I50.22 Chronic systolic (congestive) heart failure; N25.81 Secondary hyperparathyroidism of renal origin; I85.10 Secondary esophageal varices without bleeding; K76.6 Portal hypertension; K74.60 Unspecified cirrhosis of liver; I50.82 Biventricular heart failure; K22.70 Barrett's esophagus without dysplasia; K31.89 Other diseases of stomach and duodenum; I27.20 Pulmonary hypertension, unspecified; I07.1 Rheumatic tricuspid insufficiency; L98.9 Disorder of the skin and subcutaneous tissue, unspecified; K06.8 Other specified disorders of gingiva and edentulous alveolar ridge; F17.210 Nicotine dependence, cigarettes, uncomplicated; D69.6 Thrombocytopenia, unspecified; M25.562 Pain in left knee; J44.9 Chronic obstructive pulmonary disease, unspecified; Z99.2 Dependence on renal dialysis; Z88.6 Allergy status to analgesic agent; Z88.0 Allergy status to penicillin; Z88.2 Allergy status to sulfonamides

== ENCOUNTER 2018-06-18 18:16 | Inpatient (IN) | payer OTHER, BC ==
[2018-06-18 18:52] VITALS: BMI 20.7
[2018-06-18] MEDS: Levalbuterol 1.25 MG/3 ML Inhal Soln UD IH SCH (20:34)
[2018-06-18] MEDS ORDERED: Pneumococcal 23-Valent Vaccine IM ONE (21:56)
[2018-06-19] MEDS: Levalbuterol 1.25 MG/3 ML Inhal Soln UD IH SCH ×4 (01:10→20:43)
[2018-06-19] MEDS: Pantoprazole 40 mg EC Tab PO SCH (05:00)
[2018-06-19 06:49] LABS: BASO # 0.01 K/mm3 (0.0-2.0); BASO % 0.2 % (0.0-3.0); EOS # 0.4 (0.0-0.7); EOS % 8.6 % (1.5-5.0); GRAN # 2.9 (1.4-6.5); GRAN % 65.3 % (50.0-68.0); HEMOGLOBIN 8.8 g/dL (12.0-16.0); LYMPH # 0.9 (1.2-3.4); MEAN CELL VOLUME 85.3 fl (80.0-105.0); MEAN CORPUSCULAR HGB CONC 31.7 g/dl (31.0-37.0); MEAN PLATELET VOLUME 10.1 fl (7.0-11.0); MONO # 0.3 (0.1-0.6); MONO % 5.9 % (1.0-6.0); RBC 3.26 10^6/uL (3.5-6.1); RED CELL DISTRIBUTION WIDTH 17.2 % (11.5-14.5); WHITE BLOOD COUNT 4.4 10^3/uL (4.5-11.0)
--- NOTE | 2018-06-19 14:24 | PN ---
DATE: 06/19/2018 SUBJECTIVE: The patient was transferred to the TCU for 8 days of rehabilitation. She is scheduled for an outpatient dialysis treatment later today. She has no pain in her left knee. She has no bleeding. She has received a total of 4 units of packed red blood cells and we will repeat her lab work predialysis today. MEDICATIONS: Medication list reviewed. The patient is currently on Carafate, Coreg, digoxin, Dilaudid, Lipitor, Protonix, Renagel, and Xopenex. OBJECTIVE: VITAL SIGNS: Blood pressure currently is 126/66, temperature 97.4, respiratory rate is 18 with a pulse of 68. HEENT: Exam shows her to be normocephalic, atraumatic. Conjunctivae are pale. Sclerae are nonicteric. NECK: Supple. No neck vein distention. CHEST: Clear to auscultation and percussion. No rales, rhonchi or wheezing. CARDIOVASCULAR: Shows a regular rate and rhythm with MR/TR. No ST, no S4, no rub. ABDOMEN: Soft. Bowel sounds normal. No rebound, guarding or masses. EXTREMITIES: Show dressing over her left knee area, dry and intact. She has a working left upper extremity AV fistula. Positive thrill. Positive bruit. No lower extremity cyanosis, clubbing or edema. LABORATORY DATA AND IMAGING: No recent labs available for comment. These will be done today. Her last CBC from yesterday, white blood cell count 4.4, hemoglobin of 8.8 and a platelet count of 82,000. Coags, PT 13.3 with a PTT of 40.2. Chemistries show a BUN of 48 with a creatinine of 4.5 from 06/16. Potassium levels were normal. Bilirubin 1.6, with an albumin level of 3.0. ASSESSMENT: 1. Status post severe anemia. Hemoglobin down to 6.2. She has received a total of 4 units of packed red blood cells. Repeat CBC to be done today. The patient denies any GI bleeding, but did admit to gum bleeding. No bleeding from her AV access. No bleeding from her recent left knee surgery and no clotted access with blood loss on dialysis according to the patient. 2. End-stage renal disease. The patient will continue Monday, , Monday dialysis. She will remain in the Transitional Care Unit for the next 8 days. She will be going to the outpatient dialysis unit. 3. Status post left knee surgery with Dr. Jarrett Ibarra, all appears to be stable. 4. History of hypertension. Blood pressure is controlled on beta-edith therapy alone. 5. History of secondary hyperparathyroidism. The patient remains on binder therapy. We will check phosphorus level today predialysis. 6. History of cardiac cirrhosis, currently stable. 7. History of pulmonary hypertension, stable. 8. Hyperlipidemia controlled with diet and medical therapy. PLAN. 1. Continue rehabilitation in the TCU. 2. The patient will continue to be followed by her operating surgeon. She is status post left knee surgery. 3. Continue renal diet and binder therapy. 4. Continue to check blood work periodically on dialysis during her stay in the TCU. Deon Mathews MD
--- NOTE | 2018-06-19 14:46 | CON ---
DATE: 06/19/2018 ROOM: 513, bed one. HISTORY OF PRESENT ILLNESS: Has open reduction internal fixation of her left knee medial femoral condyle, it was difficult surgery and she is in the TCU for further therapy and dialysis. She underwent this surgery on 05/23/2018 and the wound is dry. We took josephine out yesterday and we will take the nylon sutures out at the end of the week and we will do some more aggressive therapy, she still lacks full extension and she cannot do a straight leg raising yet and she can now do gentle touch toe pressure with a walker and wait another 10 days till she puts more weight on the leg. FINAL DIAGNOSIS: Postop left distal femur fracture medial femoral condyle with metal plate and screws and asked for physical therapy to avoid tremendous weakness that she is getting because of her current medical condition. Jarrett Ibarra DO [facility]
[2018-06-19 16:02] LABS: HEMOGLOBIN 9.1 g/dL (12.0-16.0); MEAN CELL VOLUME 84.6 fl (80.0-105.0); MEAN CORPUSCULAR HGB CONC 31.9 g/dl (31.0-37.0); MEAN PLATELET VOLUME 9.9 fl (7.0-11.0); RBC 3.37 10^6/uL (3.5-6.1); WHITE BLOOD COUNT 4.4 10^3/uL (4.5-11.0)
[2018-06-19 16:21] LABS: ALB/GLOB RATIO 1.3 (1.1-1.8); ALBUMIN 3.4 g/dL (3.0-4.8); CALCIUM 9.1 mg/dL (8.4-10.5)
--- NOTE | 2018-06-19 22:35 | HP ---
DATE OF EXAM: 06/18/2018 HISTORY OF PRESENT ILLNESS: The patient is 57 years old who was referred by a seal skinner after they learned that her hemoglobin is 6.2. The patient received 2 blood transfusion, her hemoglobin was still 7.4, so she was given 2 blood transfusions during her dialysis and her hemoglobin came up to 9.5. The patient recently had a fall and had left knee fracture, ended up having open reduction internal fixation and was having difficulty walking, so is being transferred to TCU for rehab, close monitoring of H and H and hemodialysis. PAST MEDICAL HISTORY: She has complicated past medical history significant for: 1. End-stage renal disease, on hemodialysis. 2. Hypertension. 3. GI bleed secondary to AVMs. 4. History of cardiac cirrhosis. 5. Multiple admissions for C. diff colitis. 6. Questionable carcinoid syndrome. 7. Thrombocytopenia. 8. COPD. 9. Severe tricuspid regurg. 10. Chronic anemia. 11. Congenital bilateral hip disease, had right hip replacement. ALLERGIES: THE PATIENT HAS MULTIPLE ALLERGIES INCLUDING ASPIRIN, CIPRO, CITRUS DERIVATIVE, ENALAPRIL, HEPARIN, LATEX, PENICILLIN, SULFA, LEVOTHYROXINE, ACETAMINOPHEN, CODEINE, ENOXAPARIN, IODINE AND FLU VACCINE. MEDICATIONS AT HOME: She is on Carafate; Coreg 6.25 twice a day; digoxin 0.125 Monday, Monday and Monday; atorvastatin 80 mg daily; Protonix 40 daily; Renagel 800 three times a day; and Xopenex as needed. SOCIAL HISTORY: She is an active smoker, lives with her boyfriend, has grown up 3 sons. PHYSICAL EXAMINATION: GENERAL: She is awake, alert, oriented, came back from therapy, feels exhausted. VITAL SIGNS: She is afebrile, pulse 70, respirations 20, blood pressure 139/72. LUNGS: Bilateral fair airflow. No rhonchi or crackle. HEART: S1 and S2 audible. ABDOMEN: Soft, nontender. No rebound. No guarding. NEUROLOGIC: The patient is awake, alert, oriented, communicative. EXTREMITIES: Left knee is in the dressing and splint. ASSESSMENT: 1. Status post fall. 2. Left knee open reduction internal fixation. 3. End-stage renal disease, on hemodialysis. 4. Chronic anemia. PLAN: We will continue physical therapy. She has CBC and CMP done today, and we will monitor it intermittently. Shawn Gomez MD
[2018-06-20] MEDS: Levalbuterol 1.25 MG/3 ML Inhal Soln UD IH SCH ×4 (01:30→20:25)
[2018-06-20] MEDS: Pantoprazole 40 mg EC Tab PO SCH (05:11)
--- NOTE | 2018-06-20 14:24 | PN ---
DATE: 06/20/2018 SUBJECTIVE: The patient is seen lying in bed. She is awake. She is alert. She is comfortable. She reports she is feeling better. She walked with the walker. PHYSICAL EXAMINATION: GENERAL: Elderly lady lying in bed. VITAL SIGNS: Blood pressure 139/79, heart rate 68, respiratory rate 18, temperature 98.4. HEENT: Normocephalic, atraumatic, positive pallor. NECK: Supple, no JVD. LUNGS: Bilateral equal air entry, no rhonchi. CARDIAC: S1 and S2, regular rate and rhythm, no murmur, no rub. ABDOMEN: Soft, nondistended, nontender, bowel sounds present. EXTREMITIES: No lower extremity edema. LABORATORY DATA: No new labs. Hemoglobin 9.1 yesterday, potassium 4.7, phosphorus 6. MEDICATIONS: Medications list reviewed. Coreg, digoxin, Dilaudid, Lipitor, Protonix, Renagel, Xopenex. ASSESSMENT: 1. Severe anemia, hemoglobin dropped to 6, multifactorial. 2. Recent left knee open reduction and internal fixation. 3. End-stage renal disease. 4. Hypertension. 5. Hyperphosphatemia. PLAN: 1. Continue physical therapy. 2. Next dialysis will be tomorrow. 3. Continue current management. 4. Check labs in a.m. Mansi Rose MD
[2018-06-20] MEDS: Digoxin 125 mcg (0.125 mg) Tab PO SCH (15:12)
--- NOTE | 2018-06-20 15:50 | PN ---
DATE: 06/20/2018 SUBJECTIVE: The patient is a 57 years old woman, who was seen and examined, participating in therapy, complained of feeling tired, requires pain medication off and on. PHYSICAL EXAMINATION: VITAL SIGNS: She is afebrile, pulse 68, respirations 18, blood pressure 139/71. LUNGS: Bilateral fair airflow. No rhonchi or crackles. HEART: S1, S2 audible. ABDOMEN: Soft, nontender. No rebound, no guarding. NEUROLOGIC: She is awake, alert, oriented, and communicative. EXTREMITIES: Her left knee is in the soft brace. ASSESSMENT: 1. Status post fall and had left knee fracture, status post open reduction and internal fixation. 2. Hypertension. 3. End-stage renal disease, on hemodialysis. 4. History of gastrointestinal bleed. 5. Symptomatic anemia, status post four blood transfusions, it seems to be holding her hemoglobin. She is off of anticoagulant. PLAN: Encourage ambulation. We will follow up in the a.m. Shawn Gomez MD
[2018-06-21] MEDS: Levalbuterol 1.25 MG/3 ML Inhal Soln UD IH SCH ×4 (01:13→20:40)
[2018-06-21] MEDS: Pantoprazole 40 mg EC Tab PO SCH (05:26)
[2018-06-21 06:36] LABS: BASO # 0.04 K/mm3 (0.0-2.0); BASO % 0.9 % (0.0-3.0); EOS # 0.4 (0.0-0.7); GRAN # 2.77 (1.4-6.5); GRAN % 62.4 % (50.0-68.0); LYMPH # 0.9 (1.2-3.4); MEAN CORPUSCULAR HEMOGLOBIN 26.8 pg (25.0-35.0); MEAN CORPUSCULAR HGB CONC 31.1 g/dl (31.0-37.0); MEAN PLATELET VOLUME 9.6 fl (7.0-11.0); MONO # 0.3 (0.1-0.6); MONO % 7.7 % (1.0-6.0); RBC 3.36 10^6/uL (3.5-6.1); RED CELL DISTRIBUTION WIDTH 16.7 % (11.5-14.5); WHITE BLOOD COUNT 4.4 10^3/uL (4.5-11.0)
[2018-06-21 08:17] LABS: CALCIUM 8.9 mg/dL (8.4-10.5)
--- NOTE | 2018-06-21 17:05 | PN ---
DATE: 06/21/2018 SUBJECTIVE: The patient is 57 years old, seen and examined. Was admitted because of GI bleed, had 4 blood transfusions. Seems to be doing well. Holding her hemoglobin. No active GI bleed noted. Participating in therapy. PHYSICAL EXAMINATION: VITAL SIGNS: She is afebrile, pulse 72, respirations 18, blood pressure 147/73. LUNGS: Bilateral fair airflow. No rhonchi or crackle. HEART: S1 and S2 audible. ABDOMEN: Soft. Nontender. No rebound. No guarding. NEUROLOGICAL: She is awake, alert, oriented, communicative. LABORATORY EXAM: WBC 4.4, hemoglobin 9, hematocrit 28.9, platelet Of 84. Chemistry: Sodium 133, potassium 4.1, chloride 93, CO2 of 30, BUN 40, creatinine 5.2, blood sugar of 95. ASSESSMENT: 1. Status post gastrointestinal bleed. 2. Status post left knee fracture. 3. Status post open reduction and internal fixation. The patient was on Xarelto that has been stopped and the patient is not bleeding anymore. 4. Cardiac cirrhosis. 5. History of hypertension. 6. End-stage renal disease, on hemodialysis. PLAN: We will continue physical therapy. Continue current medication. Off of anticoagulation. The patient is otherwise doing well. Shawn Gomez MD
[2018-06-22] MEDS: Levalbuterol 1.25 MG/3 ML Inhal Soln UD IH SCH ×4 (01:00→21:01)
[2018-06-22] MEDS: Pantoprazole 40 mg EC Tab PO SCH (05:25)
[2018-06-22] MEDS: Digoxin 125 mcg (0.125 mg) Tab PO SCH (10:04)
--- NOTE | 2018-06-22 12:55 | PN ---
DATE: 06/22/2018 SUBJECTIVE: The patient is seen sitting in chair. She is awake. She is alert. She is comfortable. She had stable dialysis yesterday. She is currently coming back for physical therapy. PHYSICAL EXAMINATION: GENERAL: Middle-aged lady sitting in chair. VITAL SIGNS: Blood pressure 148/66, heart rate 72, respiratory rate 18, temperature 98. HEENT: Normocephalic, atraumatic, positive pallor. NECK: Supple, no JVD. LUNGS: Bilateral equal air entry, bilateral equal expansion. CARDIAC: Regular rate and rhythm, no murmur, no rub. ABDOMEN: Distended, soft, nontender, bowel sounds present. EXTREMITIES: No lower extremity edema. LABORATORY DATA: Hemoglobin 9, potassium 4.1, phosphorus 4.9 yesterday. MEDICATIONS: List reviewed. ASSESSMENT AND PLAN: 1. Hypertension, well controlled. 2. End-stage renal disease, stable dialysis. 3. Severe anemia, status post 4 units of blood transfusion. 4. Recent left knee open reduction and internal fixation, continue physical therapy. Mansi Rose MD
[2018-06-23] MEDS: Levalbuterol 1.25 MG/3 ML Inhal Soln UD IH SCH ×4 (01:59→21:18)
[2018-06-23] MEDS: Pantoprazole 40 mg EC Tab PO SCH (05:58)
--- NOTE | 2018-06-23 17:45 | PN ---
DATE: 06/23/2018 SUBJECTIVE: The patient is 57 years old, seen and examined, lying in bed, seems to be comfortable. Complained of pain in the knee, especially more at night. Requesting for higher dose at bedside, so she can sleep better. PHYSICAL EXAMINATION: VITAL SIGNS: She is afebrile, pulse 69, respirations 20, blood pressure 149/72. LUNGS: Bilateral fair airflow. No rhonchi or crackle. HEART: S1 and S2 audible. ABDOMEN: Soft. Nontender. No rebound. No guarding. NEUROLOGICAL: The patient is awake, alert, oriented, communicative. LABORATORY EXAM: There is no new lab available today. ASSESSMENT: 1. Status post gastrointestinal bleed. 2. History of left knee fracture, status post open reduction and internal fixation. 3. End-stage renal disease, on hemodialysis. 4. Chronic anemia. 5. History of gastrointestinal bleed. Currently, the patient is off of anticoagulation because of high risk of gastrointestinal bleed. PLAN: We will continue the patient on current medication. We will follow. Shawn Gomez MD
[2018-06-24] MEDS: Levalbuterol 1.25 MG/3 ML Inhal Soln UD IH SCH ×4 (01:35→19:36)
[2018-06-24] MEDS: Pantoprazole 40 mg EC Tab PO SCH (06:47)
--- NOTE | 2018-06-24 15:24 | PN ---
DATE: 06/23/2018 SUBJECTIVE: The patient is seen lying in bed. She is awake, she is alert and she is comfortable. She is awaiting dialysis. PHYSICAL EXAMINATION: GENERAL: Middle-aged lady lying in bed. VITAL SIGNS: Blood pressure 140/60, heart rate 68, respiratory rate 18 and temperature 97. HEENT: Normocephalic, atraumatic, positive pallor. NECK: Supple, no JVD. LUNGS: Bilateral equal entry, bilateral equal expansion. EXTREMITIES: No lower extremity edema, dressing of the left knee. LABORATORY DATA: No new labs. MEDICATIONS: List reviewed. ASSESSMENT: 1. Severe anemia, hemoglobin was down to 6.2, ?etiology. 2. Recent left open reduction and internal fixation. 3. End-stage renal disease. 4. Cirrhosis of liver? Portal hypertension. PLAN: 1. Continue physical therapy. 2. Dialysis today. 3. Monitor H and H Mansi Rose MD
--- NOTE | 2018-06-24 19:18 | PN ---
DATE: 06/24/2018 SUBJECTIVE: The patient is 57 years old, seen and examined, lying in bed, seems to be comfortable. The patient is very happy. She had a good night sleep last night. She states she went to bed at 9 and woke up at 6 and Dilaudid did help. PHYSICAL EXAMINATION: VITAL SIGNS: She is afebrile, pulse 68, respirations 20, blood pressure 149/60. LUNGS: Bilateral fair airflow. No rhonchi or crackle. HEART: S1 and S2 audible. ABDOMEN: Soft. Nontender. No rebound. No guarding. NEUROLOGICAL: The patient is awake, alert, oriented, communicative. Ambulates with assistance. ASSESSMENT: 1. Status post symptomatic anemia. 2. Gastrointestinal bleed secondary to anticoagulant. 3. Left knee fracture, status post open reduction and internal fixation. 4. Hypertension. 5. End-stage renal disease, on hemodialysis. PLAN: We will continue physical therapy. Monitor H and H intermittently. Analgesics as needed. We will follow up. Shawn Gomez MD
[2018-06-25] MEDS: Levalbuterol 1.25 MG/3 ML Inhal Soln UD IH SCH ×4 (03:10→19:45)
[2018-06-25] MEDS: Pantoprazole 40 mg EC Tab PO SCH (05:14)
--- NOTE | 2018-06-25 08:50 | PN ---
DATE: 06/22/2018 SUBJECTIVE: The patient is 57 years old, seen and examined, lying in bed, seemed to be comfortable. She came from therapy, doing better. Able to walk, minimal pain. PHYSICAL EXAMINATION: VITAL SIGNS: She is afebrile. Pulse 62, respirations 18, blood pressure 148/66. LUNGS: Bilateral fair airflow. No rhonchi or crackles. HEART: S1 and S2 audible. ABDOMEN: Soft, and nontender. No rebound. No guarding. NEUROLOGIC: The patient is awake, alert, oriented, and communicative. EXTREMITIES: Left knee is in the binder, and still has pain upon walking. ASSESSMENT: 1. Status post fall. 2. Status post open reduction and internal fixation of left knee. 3. Status post right hip replacement. 4. End-stage renal disease, on hemodialysis. 5. Gastrointestinal bleed secondary to anticoagulant. 6. She was given prophylaxis for deep vein thrombus for the left leg. PLAN: We will continue physical therapy. Monitor CBC and CMP intermittently. We will follow. Shawn Gomez MD
[2018-06-25] MEDS: Digoxin 125 mcg (0.125 mg) Tab PO SCH (09:48)
--- NOTE | 2018-06-25 15:34 | PN ---
DATE: 06/25/2018 SUBJECTIVE: The patient is 57 years old, seen and examined, doing well. Had dialysis on Monday. No nausea, no vomiting, no diarrhea, no constipation. No GI bleed. PHYSICAL EXAMINATION: VITAL SIGNS: She is afebrile, pulse 67, respirations 18 and blood pressure 139/71. LUNGS: Bilateral fair airflow. No rhonchi or crackle. HEART; S1 and S2 audible. ABDOMEN: Soft, nontender. No rebound. No guarding. NEUROLOGICAL: Patient is awake, alert, oriented and communicative. EXTREMITIES: Left knee is in the immobilizer. The patient just finished therapy, doing well in therapy. ASSESSMENT: 1. Status post fall. 2. Left knee fracture status post open reduction and internal fixation. 3. Hypertension. 4. Hyperlipidemia. 5. End-stage renal disease, on hemodialysis. 6. 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 PLAN: We will continue patient on current medication; once she is stable on that, possible discharge on Monday. Shawn Gomez MD
--- NOTE | 2018-06-25 18:24 | PN ---
DATE: 06/25/2018 SUBJECTIVE: The patient is seen lying in bed. She is awake, she is alert, she is comfortable. She reports her dressing was changed on her left knee. She denies any chest pain. She denies any shortness of breath. PHYSICAL EXAMINATION: GENERAL: Middle-aged lady lying in bed. VITAL SIGNS: Blood pressure 151/65, heart rate 67, respiratory rate 18, temperature 97.5. HEENT: Normocephalic, atraumatic, positive pallor. NECK: Supple, no JVD. LUNGS: Bilateral equal entry, bilateral equal expansion. HEART: S1, S2, regular rate and rhythm, no murmur, no rub. ABDOMEN: Soft, nondistended, nontender, bowel sounds present. EXTREMITIES: Dressing of the left knee. 1+ pitting edema of the lower extremity in the left side. INTAKE AND OUTPUT: Not charted. LABORATORY DATA: No new labs. MEDICATIONS: List reviewed. ASSESSMENT: 1. End-stage renal disease, next dialysis will be tomorrow. 2. Severe anemia, monitor hemoglobin and hematocrit. 3. History of hypertension. 4. Recent left knee open reduction and internal fixation. PLAN: 1. Dialysis tomorrow. 2. Check labs in a.m. tomorrow. 3. Physical therapy. 4. Monitor H and H. Mansi Rose MD
[2018-06-26 00:46] VITALS: RESP 20; TEMP 97.8; O2SAT 98
[2018-06-26] MEDS: Levalbuterol 1.25 MG/3 ML Inhal Soln UD IH SCH ×4 (01:42→20:45)
[2018-06-26] MEDS: Pantoprazole 40 mg EC Tab PO SCH (05:45)
[2018-06-26 06:22] LABS: MEAN CELL VOLUME 86.7 fl (80.0-105.0); MEAN CORPUSCULAR HEMOGLOBIN 26.6 pg (25.0-35.0); MEAN CORPUSCULAR HGB CONC 30.7 g/dl (31.0-37.0); MEAN PLATELET VOLUME 9.5 fl (7.0-11.0); RBC 3.38 10^6/uL (3.5-6.1); RED CELL DISTRIBUTION WIDTH 16.4 % (11.5-14.5); WHITE BLOOD COUNT 3.8 10^3/uL (4.5-11.0)
[2018-06-26 07:19] LABS: CALCIUM 9.3 mg/dL (8.4-10.5)
--- NOTE | 2018-06-26 15:10 | PN ---
DATE: 06/26/2018 SUBJECTIVE: The patient is 57 years old, seen . Repeat dialysis today, doing well, eating and tolerating, participating in therapy. PHYSICAL EXAMINATION VITAL SIGNS: She is afebrile, pulse 63, respirations 20, blood pressure 158/72. LUNGS: Bilateral fair airflow. No rhonchi or crackle. HEART: S1, S2 audible. ABDOMEN: Soft, nontender. No rebound, no guarding. NEUROLOGIC: The patient is awake, alert, oriented. Communicative. Ambulates with a walker. EXTREMITIES: Left knee seems to be having improved range of motion. LABORATORY DATA: WBC 3.8, hemoglobin 9.0, hematocrit 29.3, platelets 86,000. Chemistry; sodium 137, potassium 3.5, chloride 98, CO2 of 31, BUN 14, creatinine 2.8, blood sugar of 53. ASSESSMENT: 1. Status post fall. 2. Left knee fracture, status post open reduction and internal fixation. The patient was on anticoagulant. 3. Gastrointestinal bleed secondary to anticoagulant. 4. History of end-stage renal disease, on hemodialysis. 5. Hypertension. 6. Deconditioning and difficulty walking. PLAN: So, plan is the patient is clinically stable. Received dialysis today, doing well. Discharge plan for tomorrow. Shawn Gomez MD
--- NOTE | 2018-06-26 19:05 | PN ---
DATE: 06/26/2018 SUBJECTIVE: The patient is currently seen ambulating around the room in the TCU. She has done relatively well during her stay in the TCU. She is scheduled for an early dialysis treatment tomorrow morning with discharge home post dialysis. MEDICATIONS Medication list reviewed. The patient is currently on Carafate, Coreg, digoxin, Dilaudid p.r.n., Lipitor, Protonix, Renagel and Xopenex. OBJECTIVE: VITAL SIGNS: Blood pressure 158/72, pulse 63, temperature 97.8, respiratory rate 20. HEENT: Exam shows her to be normocephalic, atraumatic. Conjunctivae are pale. Sclerae are nonicteric. NECK: Supple. No neck vein distention. CHEST: Clear to auscultation and percussion. No rales, rhonchi or wheezing. CARDIOVASCULAR: Shows a regular rate and rhythm with MR/TR. No S3, no S4, no rub. ABDOMEN: Soft. Bowel sounds normal. No rebound, guarding or masses. EXTREMITIES: Show a working AV fistula left upper extremity. Positive thrill. Positive bruit. No lower extremity cyanosis, clubbing or edema. LABORATORY DATA AND IMAGING STUDIES: Labs from today, CBC: White blood cell count 3.8, hemoglobin 9 with a platelet count of 86,000. Chemistries from today, K of 3.5. BUN 40 with a creatinine of 2.8. This being a day post dialysis. Calcium level was 9.3. Last phosphorus level was 4.9. ASSESSMENT: 1. Status post severe anemia. The patient's hemoglobin has remained stable in the 9 range. The patient will continue maximum dose of Aranesp on dialysis. No evidence for any gastrointestinal bleeding. No evidence for bleeding from her recent surgical site. She is status post left knee surgery with Dr. Paresh Ibarra approximately 2 to 3 weeks ago. 2. History of hypertension. Blood pressure controlled on present beta-edith therapy. 3. History of end-stage renal disease. The patient will continue Monday, , Monday dialysis. She will receive dialysis tomorrow because of the holiday and readjust her schedule this week. 4. History of secondary hyperparathyroidism. Once the patient returns to the outpatient setting, we will continue to monitor her phosphorus level. She will remain on binder therapy. She will continue a renal diet. 5. History of cardiac cirrhosis, currently stable. 6. History of pulmonary hypertension, stable. 7. Hyperlipidemia, controlled with diet and medical therapy. PLAN: 1. The patient is scheduled for dialysis tomorrow. She will receive her routine dialysis tomorrow and then return for dialysis on Monday. 2. The patient to continue oral medications. 3. The patient to be mindful of all dietary restrictions for the holidays. 4. Follow up with me in the outpatient setting this weekend. Deon Mathews MD
[2018-06-27] MEDS: Levalbuterol 1.25 MG/3 ML Inhal Soln UD IH SCH ×3 (02:30→12:58)
[2018-06-27] MEDS: Pantoprazole 40 mg EC Tab PO SCH (11:28)
[2018-06-27] MEDS: Digoxin 125 mcg (0.125 mg) Tab PO SCH (11:29)
[2018-06-27 11:32] VITALS: BP 154/70; PULSE 79
--- NOTE | 2018-06-27 12:52 | DS ---
HISTORY OF PRESENT ILLNESS: The patient is 57 years old, seen and examined, doing well, getting ready to go home. PHYSICAL EXAMINATION: VITAL SIGNS: She is afebrile, pulse 79, respirations 20, blood pressure 154/70. LUNGS: Bilateral fair airflow. No rhonchi or crackle. HEART: S1, S2 audible. ABDOMEN: Soft, nontender. No rebound, no guarding. NEUROLOGIC: The patient is awake, alert, oriented. Able to communicate. EXTREMITIES: Left knee has a dressing. She has limited range of motion because of the . ASSESSMENT: 1. Status post gastrointestinal bleed secondary to anticoagulant. 2. Hypertension. 3. End-stage renal disease, on hemodialysis. 4. Deconditioning and difficulty walking. PLAN: So, plan is the patient is being discharged to home. She will resume her medications including Renagel, Protonix, digoxin, carvedilol, Lipitor, and Dilaudid 2 mg twice a day as needed. She will follow up in the office . Shawn Gomez MD
--- NOTE | 2018-06-27 21:50 | PN ---
DATE: 06/27/2018 SUBJECTIVE: The patient is seen lying in bed. She is awake. She is alert. She is comfortable. She denies any pain. She denies any shortness of breath. PHYSICAL EXAMINATION: GENERAL: Middle-aged lady, lying in bed. VITAL SIGNS: Blood pressure 154/70, heart rate 79, respiratory rate 18, temperature 98. HEENT: Normocephalic, atraumatic, positive pallor. NECK: Supple, no JVD. LUNGS: Bilateral equal air entry, bilateral equal expansion. CARDIAC: S1 and S2, regular rate and rhythm, no murmur, no rub. ABDOMEN: Soft, nondistended, nontender, bowel sounds present. EXTREMITIES: Dressing/brace at the left knee. LABORATORY DATA: Potassium 3.5, hemoglobin 9. CURRENT MEDICATIONS: Carafate, Coreg, digoxin, Dilaudid, Lipitor, Protonix, Renagel, and Xopenex. ASSESSMENT: 1. Status post severe anemia, hemoglobin 6.2, status post total of 4 units of blood transfusion. 2. Recent left knee open reduction and internal fixation. 3. End-stage renal disease. 4. History of hypertension. PLAN: 1. Stable hemoglobin. 2. Stable dialysis course. 3. No objection to discharge. Mansi Rose MD
== END 2018-06-27 14:16 | disposition home or self-care (01) | DRG 555 ==
LOC: TRCU 18:16
PROVIDERS: ADMIT Internal Medicine; ATTEND Internal Medicine
PROC: F07Z9FZ Gait Training/Functional Ambulation Treatment using Assistive, Adaptive, Supportive or Protective Equipment (ICD-10-PCS; principal; 2018-06-20)
PROC: F07L6ZZ Therapeutic Exercise Treatment of Musculoskeletal System - Lower Back / Lower Extremity (ICD-10-PCS; 2018-06-20)
PROC: F08Z2ZZ Grooming/Personal Hygiene Treatment (ICD-10-PCS; 2018-06-20)
PROC: 5A1D70Z Performance of Urinary Filtration, Intermittent, Less than 6 Hours Per Day (ICD-10-PCS; 2018-06-20)
PROC: F08Z1FZ Dressing Techniques Treatment using Assistive, Adaptive, Supportive or Protective Equipment (ICD-10-PCS; 2018-06-21)
PROC: 5A1D70Z Performance of Urinary Filtration, Intermittent, Less than 6 Hours Per Day (ICD-10-PCS; 2018-06-21)
PROC: 5A1D70Z Performance of Urinary Filtration, Intermittent, Less than 6 Hours Per Day (ICD-10-PCS; 2018-06-25)
PROC: 5A1D70Z Performance of Urinary Filtration, Intermittent, Less than 6 Hours Per Day (ICD-10-PCS; 2018-06-27)
DX: R26.2 Difficulty in walking, not elsewhere classified (principal); N18.6 End stage renal disease; I12.0 Hypertensive chronic kidney disease with stage 5 chronic kidney disease or end stage renal disease; N25.81 Secondary hyperparathyroidism of renal origin; K76.6 Portal hypertension; D68.32 Hemorrhagic disorder due to extrinsic circulating anticoagulants; D64.9 Anemia, unspecified; K76.1 Chronic passive congestion of liver; E78.5 Hyperlipidemia, unspecified; E83.39 Other disorders of phosphorus metabolism; F17.200 Nicotine dependence, unspecified, uncomplicated; I07.1 Rheumatic tricuspid insufficiency; I27.20 Pulmonary hypertension, unspecified; J44.9 Chronic obstructive pulmonary disease, unspecified; D69.6 Thrombocytopenia, unspecified; K55.20 Angiodysplasia of colon without hemorrhage; W19.XXXD Unspecified fall, subsequent encounter; S72.432D Displaced fracture of medial condyle of left femur, subsequent encounter for closed fracture with routine healing; Z99.2 Dependence on renal dialysis

== ENCOUNTER 2018-07-04 12:13 | Inpatient (IN) | payer MEDICARE, BC ==
[2018-07-04 12:13] VITALS: PULSE 79
[2018-07-04 12:16] VITALS: BMI 20.7
--- NOTE | 2018-07-04 12:25 | ED PDOC ---
Arrival/HPI - General Chief Complaint: Shortness Of Breath Historian: Patient - History of Present Illness Narrative History of Present Illness (Text): 07/04/18 12:20 A 57 year old female, whose past medical history includes COPD, CHF, hypertension, left AV shunt, SRD on hemodialysis (T, Th, and Sat), chronic anemia, chronic pancreatitis, and GI bleed, presents to the emergency department complaining of shortness of breath, palpitations, and cough for the past 2 days. Patient reports also experiencing dizziness and dark bowels for the past few days. States today she was having AV fistula in her left arm cleaned out, and while doing so noticed her shortness of breath and palpitations became worse. Patient afterwards was brought to the ER to be evaluated for symptoms. Patient denies any fever, (pleuritic)chest pain, abdominal pain, dysuria, hematuria, or any other complaints at this time. Admits to history of smoking. States she does not have home O2. No history of diabetes. PMD: Dr. Gomez Past Medical History - Provider Review Nursing Documentation Reviewed: Yes - Past History Past History: Non-Contributing - Infectious Disease Hx of Infectious Diseases: None - Tetanus Immunization Tetanus Immunization: Up to Date - Reproductive Menopause: Yes - Cardiac Hx Congestive Heart Failure: Yes Hx Hypertension: Yes - Pulmonary Hx Chronic Obstructive Pulmonary Disease (COPD): Yes - Neurological Hx Alzheimer's Disease: No Hx Dementia: No Hx Migraine: No Hx Parkinson's Disease: No Hx Seizures: No Hx Transient Ischemic Attacks (TIA): No - HEENT Hx HEENT Disorder: Yes Hx Blind: Yes (partial, left eye) - Renal Hx Dialysis: Yes Type of Dialysis Access: L AV shunt Date of Last Dialysis Treatment: 07/03/18 Hx Renal Failure: Yes - Endocrine/Metabolic Hx Hypothyroidism: Yes - Hematological/Oncological Hx Anemia: Yes - Integumentary Hx Dermatological Disorder: Yes (LEFT UPPER ARM SHUNT) Other/Comment: CALCIPHYLAXIS-DRY ROUND RASH ALL OVER HER BODY,ARMS,LEG. BILATERAL DISCOLORED DARK BROWN SKIN.TIGHT. - Musculoskeletal/Rheumatological Hx Falls: Yes (Recent left knee fx) - Gastrointestinal Hx Gastrointestinal Disorders: Yes (GI BLEED,SBO,APPENDICITIS,INGRAM'S ESOPHAGUS) - Genitourinary/Gynecological Hx Genitourinary Disorders: Yes (OLIGURIA) - Psychiatric Hx Anxiety: No Hx Bipolar Disorder: No Hx Depression: No Hx Post Traumatic Stress Disorder: No Hx Schizophrenia: No Hx Substance Use: No - Surgical History Hx Appendectomy: No Hx Cholecystectomy: Yes Hx Coronary Stent: No - Anesthesia Hx Anesthesia Reactions: No Hx Malignant Hyperthermia: No - Suicidal Assessment Feels Threatened In Home Enviroment: No Family/Social History - Physician Review Nursing Documentation Reviewed: Yes Family/Social History: No Known Family HX Smoking Status: Current Some Days Smoker Hx Alcohol Use: No Hx Substance Use: No Hx Substance Use Treatment: No Allergies/Home Meds Allergies/Adverse Reactions: Allergies aspirin Allergy (Severe, Verified 07/04/18 14:54) ANAPHYLAXIS ciprofloxacin Allergy (Severe, Verified 07/04/18 14:54) ANAPHYLAXIS [place] And Derivatives Allergy (Severe, Verified 07/04/18 14:54) ANAPHYLAXIS enalapril Allergy (Severe, Verified 07/04/18 14:54) HIVES heparin Allergy (Severe, Verified 07/04/18 14:54) ANAPHYLAXIS latex Allergy (Severe, Verified 07/04/18 14:54) ANAPHYLAXIS Penicillins Allergy (Severe, Verified 07/04/18 14:54) ANAPHYLAXIS Sulfa (Sulfonamide Antibiotics) Allergy (Severe, Verified 07/04/18 14:54) ANAPHYLAXIS levothyroxine sodium [From Levoxyl] Allergy (Intermediate, Verified 07/04/18 14:54) RASH acetaminophen Allergy (Mild, Verified 07/04/18 14:54) RASH codeine Allergy (Mild, Verified 07/04/18 14:54) RASH enoxaparin Allergy (Mild, Verified 07/04/18 14:54) RASH iodine Allergy (Mild, Verified 07/04/18 14:54) RASH influenza virus vaccine, specific Allergy (Verified 07/04/18 14:54) hives Home Medications: Home Meds Medication Instructions Recorded Confirmed Sevelamer [Renagel] 800 mg PO DAILY 10/10/17 07/04/18 Review of Systems - Review of Systems Constitutional: absent: Fevers Respiratory: SOB, Cough Cardiovascular: Palpitations. absent: Chest Pain (and no pleuritic chest pain), HERBERT Gastrointestinal: Other (dark bowels). absent: Abdominal Pain Genitourinary Female: absent: Dysuria, Hematuria, Urine Output Changes Musculoskeletal: absent: Back Pain Neurological: Dizziness Endocrine: absent: Polyuria Physical Exam - Physical Exam Narrative Physical Exam (Text): Head: Atraumatic. Normocephalic. Eyes: PERRL. EOMI. Conjunctivae are not pale. ENT: Mucous membranes are moist and intact. Oropharynx is clear and symmetric. Neck: Supple. Full ROM. Positive JVD. No lymphadenopathy. Cardiovascular: Regular rate. Regular rhythm. Systolic murmur. Distal pulses are 2+ and symmetric. Pulmonary/Chest: No evidence of respoiratory distress. No accessory muscle usage. Rales bilaterally. Abdominal: Soft and non-distended. There is no tenderness. No rebound, guarding, or rigidity. No organomegaly. Good bowel sounds. Back: No CVA tenderness. Extremities: No acute edema. No cyanosis. No clubbing. Brace noted to left lower extremity. Fistula site to left upper extremity with positive thrill, pulsation. Skin: Skin is warm and dry. No petechiae. No purpura. No cellulitis. Rectal: no gross bleeding or melena Neurological: Alert, awake, and oriented to person, place, time, and situation. Normal speech. Motor and sensory exam intact. Psychiatric: Good eye contact. Normal interaction, affect, and behavior. Vital Signs Reviewed: Yes Temperature: Afebrile Blood Pressure: Hypertensive Pulse: Regular Respiratory Rate: Normal Appearance: Positive for: Well-Appearing, Non-Toxic, Comfortable Pain Distress: Mild Mental Status: Positive for: Alert and Oriented X 3 Medical Decision Making ED Course and Treatment: 07/04/18 12:24 Impression: 57 year old female with shortness of breath, palpitations, and cough. Plan: -- EKG -- Chest X-Ray -- Labs -- Venous Blood Gas -- Arterial Blood Gas -- Urine Culture -- Influenza A B Test -- Urinalysis -- Fingerstick Prior Visits: Patient was last seen here in the emergency department on 06/15/2018 for lower hemoglobin. Patient was admitted for anemia and ESRD. Progress Notes: Patient denies chest pain or pleuritic discomfort to me. 07/04/18 13:04 Chest X-Ray, as interpreted and read by me, shows mild pulmonary vascular congestion. 07/04/2018 13:40 Chest X-Ray IMPRESSION: Moderate to severe cardiomeglay moderate pulmonary vascular and interstitial congestion. Dictator: Jarrett Meeks MD There is component of pulmonary edema, although on nasal cannula oxygen saturations are 99% and no distress noted. ABG unremarkable. Patient comfortable with no pleuritic pain. She has RECENT history of GI bleed requiring blood transfusion in early june. Due to this she has anticoagulation risk. Troponin mildly elevated although no chest pain or acute EKG changes. Elevated troponin? from renal disease, although PE in differential as patient with recent leg fracture with immobilization. With serial exams no respiratory distress. D/w Dr. Gomez, will admit to telemetry for pulmonary edema, she is due for dialysis tomorrow. I have also reviewed cxr and symptoms with her product support specialist Dr. Rose. Patient IS ALLERGIC TO IV CONTRAST. CT angio cannot be ordered due to this at this time. Will admit for monitoring. Have consulted cardiology, Dr Mccullough for elevated troponin. - EKG Interpretation EKG Interpretation (Text): EKG at 1225 normal sinus rhythm rate of 99 with left axis deviation, left ventricular hypertrophy, with repolarization abnormality, prlonged qt Interpreted by ED Physician: Yes Type: 12 lead EKG - Scribe Statement The provider has reviewed the documentation as recorded by the Corinne Ackerman Provider Scribe Attestation: All medical record entries made by the Corinne were at my direction and personally dictated by me. I have reviewed the chart and agree that the record accurately reflects my personal performance of the history, physical exam, medical decision making, and the department course for this patient. I have also personally directed, reviewed, and agree with the discharge instructions and disposition. Disposition/Present on Arrival - Present on Arrival Any Indicators Present on Arrival: No History of DVT/PE: No History of Uncontrolled Diabetes: No Urinary Catheter: No History of Decub. Ulcer: No History Surgical Site Infection Following: None - Disposition Have Diagnosis and Disposition been Completed?: Yes Diagnosis: Elevated troponin, ESRD (end stage renal disease), Pulmonary edema, Anemia Disposition: HOSPITALIZED Disposition Time: 14:00 Patient Plan: Admission, Telemetry Condition: SERIOUS
[2018-07-04 13:21] LABS: ARTERIAL BLOOD GAS HCO3 28.2 mmol/L (21-28); ARTERIAL BLOOD GAS PCO2 37 mm/Hg (35-45); ARTERIAL BLOOD GAS PH 7.49 (7.35-7.45); ARTERIAL BLOOD GAS TCO2 29.3 mmol.L (22-28)
[2018-07-04 13:22] LABS: VENOUS BLOOD GAS BASE EXCESS 5.6 mmol/L (0.0-2.0); VENOUS BLOOD GAS PO2 172 mm/Hg (30-55); VENOUS BLOOD PH 7.44 (7.32-7.43)
[2018-07-04 13:26] LABS: BASO # 0.02 K/mm3 (0.0-2.0); BASO % 0.5 % (0.0-3.0); EOS # 0.1 (0.0-0.7); EOS % 2.9 % (1.5-5.0); GRAN # 3.62 (1.4-6.5); GRAN % 87.6 % (50.0-68.0); HEMOGLOBIN 8.4 g/dL (12.0-16.0); LYMPH # 0.3 (1.2-3.4); LYMPH % 7.5 % (22.0-35.0); MEAN CORPUSCULAR HEMOGLOBIN 26.2 pg (25.0-35.0); MEAN CORPUSCULAR HGB CONC 30.4 g/dl (31.0-37.0); MEAN PLATELET VOLUME 9.9 fl (7.0-11.0); MONO # 0.1 (0.1-0.6); MONO % 1.5 % (1.0-6.0); RBC 3.21 10^6/uL (3.5-6.1); RED CELL DISTRIBUTION WIDTH 16.2 % (11.5-14.5); WHITE BLOOD COUNT 4.1 10^3/uL (4.5-11.0)
[2018-07-04 13:36] LABS: INR 1.29; PARTIAL THROMBOPLASTIN TIME 31.5 Seconds (25.1-36.5); PROTHROMBIN TIME 14.9 SECONDS (9.4-12.5)
[2018-07-04 13:37] LABS: ALB/GLOB RATIO 1.3 (1.1-1.8); ALBUMIN 3.8 g/dL (3.0-4.8); CALCIUM 9.7 mg/dL (8.4-10.5)
--- NOTE | 2018-07-04 13:44 | RAD ---
Date of service: 07/04/2018 HISTORY: sob COMPARISON: 05/23/2018 FINDINGS: LUNGS: No active pulmonary disease. PLEURA: No significant pleural effusion identified, no pneumothorax apparent. CARDIOVASCULAR: Mild aortic calcification Moderate to severe cardiomegaly moderate pulmonary vascular and interstitial congestion OSSEOUS STRUCTURES: No significant abnormalities. VISUALIZED UPPER ABDOMEN: Normal. OTHER FINDINGS: None. IMPRESSION: Moderate to severe cardiomegaly moderate pulmonary vascular and interstitial congestion
[2018-07-04 14:17] LABS: TROPONIN I 0.19 ng/mL
[2018-07-04] MEDS: Milrinone 20mg/100ml D5W 100 ML IV PRN (17:37)
--- NOTE | 2018-07-04 17:43 | CARD ---
APPROVED REPORT Date of service: 07/04/2018 EKG Measurement Heart [id number] <Conclusion> Normal sinus rhythm Left axis deviation Left ventricular hypertrophy with repolarization abnormality Prolonged QT Abnormal ECG
[2018-07-04] MEDS: Levalbuterol 1.25 MG/3 ML Inhal Soln UD IH SCH (20:22)
[2018-07-04 20:43] LABS: TROPONIN I 0.15 ng/mL
--- NOTE | 2018-07-04 21:08 | HP ---
DATE OF EXAM: 07/04/2018 HISTORY OF PRESENT ILLNESS: The patient is a 57-year-old, she states she goes to to check her left AV shunt where she get cleaning done and she was found to be hypoxic without oxygen. Her oxygen was running , so they advised her to come to emergency room. She does complain of having cough, congestion and get short of breath on walking. Complain of pain in the left knee. No nausea or vomiting. No diarrhea. No fever. No chills. The patient admits she still smoke half a pack a day. PAST MEDICAL HISTORY: Significant for: 1. Hypertension. 2. Peptic ulcer disease. 3. History of C. diff in the past. 4. Right heart failure. 5. Cardiac cirrhosis. 6. History of pericardial effusion, status post pericardial window. 7. End-stage renal disease, on hemodialysis. ALLERGIES: THE PATIENT HAS MULTIPLE ALLERGIES INCLUDING ASPIRIN, CIPRO, CITRUS DERIVATIVE, ENALAPRIL, HEPARIN, LATEX, PENICILLIN, SULFA, LEVOTHYROXINE, ACETAMINOPHEN, CODEINE, ENOXAPARIN, IODINE AND FLU VACCINE. MEDICATIONS AT HOME: She is on Dilaudid 2 mg every 4 hours p.r.n., meclizine 25 three time a day, Crestor 10 mg daily, Toradol as needed, lisinopril 2.5 daily, she is on ProAir, and she is on Renagel. SOCIAL HISTORY: She lives with her boyfriend. She has two grown up children. She actively smoke. She denies alcohol use. PHYSICAL EXAMINATION: GENERAL: She has mild shortness of breath, but does not look in any respiratory distress. VITAL SIGNS: She is afebrile, pulse 97, respirations 20, and blood pressure 167/95. LUNGS: Bilateral soft crackle at bases. HEART: S1 and S2 audible. ABDOMEN: Soft and nontender. No rebound. No guarding. NEUROLOGIC: She is awake, alert, oriented, and communicative. EXTREMITIES: Left knee is in immobilizer, +1 edema. LABORATORY DATA: WBC 4.1, hemoglobin 8.4, hematocrit 27.6, and platelet 78. PT 14.9 and INR 1.29. Chemistry: Sodium 137, potassium 4.5, chloride 97, CO2 of 29, BUN 38, creatinine 4.6, and blood sugar of 168. LFTs are within normal limit. Her troponin 0.19. BNP 266,000. Flu test is negative. X-ray chest [id number] cardiomegaly, moderate pulmonary vascular congestion and interstitial congestion. ASSESSMENT: 1. Congestive heart failure. 2. Cardiomyopathy. 3. Right ventricular failure. 4. History of chronic obstructive pulmonary disease. 5. History of gastrointestinal bleed. 6. Status post fall. 7. Left knee open reduction and internal fixation. 8. Gastritis. PLAN: Currently, the patient is on carvedilol and she is on hydromorphone as needed. She has been started on Primacor drip. V/Q scan has been ordered. I will add the nebulizer treatment and we will monitor her CBC and cardiac status closely. Nephrology consult by Dr. Rose and Cardiology consult by Dr. Mccullough has been requested. Shawn Gomez MD
[2018-07-05] MEDS: Levalbuterol 1.25 MG/3 ML Inhal Soln UD IH SCH ×4 (01:06→20:14)
--- NOTE | 2018-07-05 04:30 | CON ---
DATE: 07/04/2018 CONSULT SERVICE: Cardiology, physician Dr. Po Mccullough. REASON FOR CONSULTATION: Cardiac evaluation, admitted with shortness of breath; pulmonary edema; borderline positive troponin; end-stage renal disease, on dialysis. BRIEF CLINICAL HISTORY: This is a 57-year-old female with past medical history significant for end-stage renal disease, on dialysis Monday, and Monday; history of chronic anemia; history of GI bleed; history of mitral regurgitation; history of tricuspid regurgitation; history of COPD; asthma; GI bleed; CKD, on dialysis; history of AVM in GI; multiple GI bleed; history of cardiac catheterization for nonobstructive coronary artery disease, who recently had a fracture of left knee status post OR internal fixation and discharged from TCU, came in with complaint of shortness of breath progressively worsening, who came to the emergency room yesterday, has the patient dialysis but still feels short of breath. She denies any chest pain, denies any palpitation. PAST MEDICAL HISTORY: Significant for end-stage renal disease, on dialysis secondary to chronic kidney disease; hypertension; hyperparathyroidism; COPD; asthma; history of GI bleed; history of GI AVM; history of gastrointestinal reflux; history of peptic ulcer disease; history of mild cardiomyopathy; history of mitral regurgitation; history of tricuspid regurgitation; history of pulmonary hypertension and history of normal coronary. PREVIOUS CARDIAC WORKUP FOLLOWS: The patient had a cardiac catheterization dated 06/26/2017 shows normal coronaries, upper limit normal right heart pressure, history of end-stage renal disease, history of pericardial effusion status post pericardial window in the past, history of MUGA scan 01/04/2018 that shows ejection fraction of 31% and normal RV motion. The patient had echocardiography repeated on 01/08/2018. There was KADY done showed ejection fraction of 25%, moderate to severe mitral regurgitation, severe tricuspid regurgitation, RV systolic pressure of 74 consistent with pulmonary hypertension. No evidence of endocarditis. PAST SURGICAL HISTORY: Significant for cholecystectomy, history of knee surgery after fracture of the left knee, still in the cast, history of gastrointestinal bleed, history of atriovenous malformation of intestinal track, history of large pericardial effusion, history of pericardial tamponade status post pericardial window, history of AV fistula of the left arm, history of right hip surgery secondary to avascular necrosis. SOCIAL HISTORY: Smokes a pack. Denies any history of alcohol abuse. Denies any history of substance abuse. CURRENT MEDICATIONS: The patient is taking Renagel 800 mg daily, oxycodone, Percocet 5/325 daily, meclizine, Antivert 25 mg daily, Crestor 10 mg daily, lisinopril 2.5 mg daily, albuterol inhaler. ALLERGIES: TO ASPIRIN, GETS ANAPHYLACTIC, CIPROFLOXACIN, CITRUS, ENALAPRIL, HEPARIN, LATEX, PENICILLIN, SULFA, ACETAMINOPHEN, CODEINE, ENOXAPARIN, IODINE. REVIEW OF SYSTEMS: As per HPI. PHYSICAL EXAMINATION VITAL SIGNS: Height of the patient 5 feet 5 inches, weight of the patient 125 pounds, body mass index 20.8 kg/m2. Rest of vitals; temperature afebrile, heart rate is 97, blood pressure 152/80. HEENT: PERRLA. Extraocular muscles intact. NECK: Supple. No carotid bruits, no thyromegaly. CHEST: Clear to auscultation. HEART: S1, S2 regular. ABDOMEN: Soft. EXTREMITIES: Clubbing and cyanosis negative. LABORATORY DATA: Blood work up as follows: WBC 4.1, hemoglobin 8.5, hematocrit 27.6, platelet count 78. Chemistry showed sodium 137, potassium 4.5, chloride 92, carbon dioxide 29, anion gap of 15, BUN 30, creatinine 4.6, troponin 0.19, BNP at 266,000. EKG shows normal sinus, LVH 0.[address] depression in the lateral lead. Chest x-ray consistent with a moderate severe cardiomegaly, moderate pulmonary vascular and interstitial congestion. IMPRESSION: A 57-year-old female with a past medical history significant for end-stage renal disease on dialysis Monday, and Monday; history of moderate to severe mitral regurgitation; severe tricuspid regurgitation; nonischemic cardiomyopathy status post cardiac cath a year ago; normal coronaries; history of fracture of left knee after a fall in the kitchen; history of open reduction and internal fixation, after being discharged admitted with a shortness of breath. Chest x-ray was consistent with pulmonary edema, troponin borderline positive most likely secondary to congestive heart failure as well as end-stage renal disease, needs to rule out pulmonary embolism because the patient is set up for pulmonary embolism, history of gastrointestinal arteriovenous malformation, multiple bleed, history of cholecystectomy, history of hip surgery. Most likely, this shortness of breath is secondary to congestive heart failure due to systolic dysfunction, but needs to rule out pulmonary embolism because the patient is set up for pulmonary embolism. The patient is not a candidate for long-term anticoagulation because history of arteriovenous malformation and multiple gastrointestinal bleed. So, we will suggest to get a VQ scan. We have initially ordered a CAT scan, CT angio, but the patient is very much reluctant because she is allergic to contrast dye. Though, I mentioned the patient had a cardiac catheter at that time, we premedicated for allergy, but the patient is reluctant. We will get the VQ scan, get the serial troponin, and we will start IV Primacor. The patient had a MUGA scan done that shows ejection fraction of 31% dated 01/04/2018. The patient has a KADY done on 01/08/2018, ejection fraction 25% with moderate to severe mitral regurgitation, severe tricuspid regurgitation, right ventricular systolic pressure of 74 consistent with severe pulmonary hypertension. So, as planned above, we will get the VQ scan anticoagulant because history of gastrointestinal bleed. The patient is also anaphylactic to aspirin. We will not give aspirin. We will start low-dose Coreg 3.125 b.i.d., lisinopril 2.5 mg daily, resume back atorvastatin, lipid profile with hemoglobin A1c. I will start Primacor and get a VQ scan. Further recommendations depending upon hospital course. We will follow with you. Follow up serial troponin and troponin. Thank you, Dr. Gomez, for providing us the opportunity in taking care of this patient, Jacqui Kraus. Po Mccullough MD
[2018-07-05 06:59] LABS: GRAN # 2.62 (1.4-6.5); GRAN % 70.4 % (50.0-68.0); HEMOGLOBIN 7.6 g/dL (12.0-16.0); LYMPH # 0.6 (1.2-3.4); LYMPH % 15.9 % (22.0-35.0); MEAN CELL VOLUME 85.8 fl (80.0-105.0); MEAN CORPUSCULAR HEMOGLOBIN 26.4 pg (25.0-35.0); MEAN CORPUSCULAR HGB CONC 30.8 g/dl (31.0-37.0); MEAN PLATELET VOLUME 10.3 fl (7.0-11.0); MONO # 0.5 (0.1-0.6); MONO % 13.7 % (1.0-6.0); RBC 2.88 10^6/uL (3.5-6.1); RED CELL DISTRIBUTION WIDTH 16.1 % (11.5-14.5); WHITE BLOOD COUNT 3.7 10^3/uL (4.5-11.0)
[2018-07-05 07:08] LABS: ALB/GLOB RATIO 1.3 (1.1-1.8); ALBUMIN 3.3 g/dL (3.0-4.8); CALCIUM 9.1 mg/dL (8.4-10.5)
[2018-07-05 07:28] LABS: TROPONIN I 0.13 ng/mL
--- NOTE | 2018-07-05 08:20 | CP.PCM.PN ---
Subjective - Date & Time of Evaluation Date of Evaluation: 07/05/18 Time of Evaluation: 07:15 - Subjective Subjective: Awake, alert, no distress,denies shortness of breath Reason for consultation and follow up:Cardiac evaluation of shortness of breath, pulmonary edema, positive borderline troponin, ESRD on hemodialysis Seen and examined by me and Dr. Mccullough Objective - Vital Signs/Intake and Output Vital Signs (last 24 hours): Temp Pulse Resp BP Pulse Ox 97.6 F 84 20 132/59 L 98 07/05/18 05:32 07/05/18 05:32 07/05/18 05:32 07/05/18 05:32 07/05/18 05:32 Intake and Output: 07/05/18 07/05/18 06:59 18:59 Intake Total 275 Balance 275 - Medications Medications: Current Medications Atorvastatin Calcium (Lipitor) 40 mg PO DAILY [facility] Carvedilol (Coreg) 3.125 mg PO BID [facility] Last Admin: 07/04/18 17:37 Dose: 3.125 mg Hydralazine HCl (Apresoline) 10 mg PO QID PRN PRN Reason: for sbp>170 Hydromorphone HCl (Dilaudid) 2 mg PO Q4 PRN PRN Reason: Pain, moderate (4-7) Last Admin: 07/05/18 05:41 Dose: 2 mg Milrinone Lactate/Dextrose (Primacor 20mg/100ml D5w) 100 mls @ 3.402 mls/hr IV .Q24H PRN; Protocol PRN Reason: TITRATE PER MD ORDER Stop: 07/06/18 10:00 Last Admin: 07/04/18 17:37 Dose: 0.2 mcg/kg/min, 3.402 mls/hr Levalbuterol HCl (Xopenex) 1.25 mg IH [id number] [facility] Last Admin: 07/05/18 07:49 Dose: 1.25 mg Lisinopril (Zestril) 2.5 mg PO DAILY [facility] Meclizine HCl (Antivert) 25 mg PO TID PRN PRN Reason: Anxiety Nicotine (Nicoderm Cq) 1 patch TD DAILY [facility] Sevelamer HCl (Renagel) 800 mg PO DAILY [facility] - Labs Labs: 07/05/18 06:30 07/05/18 06:30 PT 14.9 SECONDS (9.4-12.5) H 07/04/18 13:08 INR 1.29 07/04/18 13:08 APTT 31.5 Seconds (25.1-36.5) 07/04/18 13:08 - Constitutional Appears: Non-toxic, No Acute Distress - Head Exam Head Exam: NORMAL INSPECTION, NORMOCEPHALIC - Eye Exam Eye Exam: Normal appearance Pupil Exam: NORMAL ACCOMODATION - ENT Exam ENT Exam: Mucous Membranes Moist - Respiratory Exam Respiratory Exam: Clear to Ausculation Bilateral, NORMAL BREATHING PATTERN - Cardiovascular Exam Cardiovascular Exam: REGULAR RHYTHM, +S1, +S2 Additional comments: Telemetry NSR 70's - GI/Abdominal Exam GI & Abdominal Exam: Soft, Normal Bowel Sounds - Exam Additional comments: ESRD on hemodialysis 3x a week TThS - Extremities Exam Additional comments: Left arm AV shunt positive bruit/thrill Left knee with ronen wrap (post surgery) - Neurological Exam Neurological Exam: Alert, Awake, Oriented x3 - Psychiatric Exam Psychiatric exam: Normal Affect, Normal Mood - Skin Skin Exam: Dry, Normal Color, Warm Assessment and Plan - Assessment and Plan (Free Text) Assessment: A 57 year old female who came in to the ER due to shortness of breath with palpitation and cough. History of hypertension, moderate to severe mitral regurgitation,, severe tricuspid regurgitation,non ischemic cardiomyopathy,normal coronaries (cardiac cath a year ago). history of fall and fracture of left knee post ORIF, ESRD on hemodialysis, left AV shunt,CHF,COPD,chronic anemia, chronic pancreatitis, and GI bleed.History of arteriovenous malformation and multiple GI bleed, she is not a candidate for group home anticoagulation. Chest X ray consistent with pulmonary edema,borderline positive troponin,recent KADY 01/08/2018 showed LVEF 25%, moderate to severe mitral regurgitation,severe tricuspid regurgitation, RVSP 74 mmHg consistent with severe pulmonary hypertension. Systolic dysfunction congestive heart failure, rule out pulmonary embolism,severe pulmonary hypertension. Plan: No distress, complaining of knee discomfort, pain to touch Will order doppler studies of left leg to rule out DVT For VQ scan to rule out PE Refused CT of chest due to contrast dye Serial troponin-0.19/0.15/0.13 trending down Started on Primacor drip,continue ESRD, for Hemodialysis today On Lipitor 40 mg daily, Coreg 3.125 mg BID,Hydralazine 10 mg QID,Lisinopril 2.5 mg TID Nicotine patch No Aspirin, allergic (anaphylactic reaction). Continue current treatment Continue current medications Chart reviewed Will follow up Plan and treatment discussed with Dr. Mccullough
--- NOTE | 2018-07-05 10:48 | US ---
PROCEDURE: Left lower extremity venous US HISTORY: Leg pain and swelling. Evaluate for DVT. Recent left knee surgery PHYSICIAN(S): Josh Vanegas MD. TECHNIQUE: Duplex sonography and color-flow Doppler with graded compression were used to evaluate the deep venous system of the left lower extremity. The exam is somewhat limited by edema. FINDINGS: The visualized deep venous system of the left lower extremity is sonographically normal and compressible. Normal wave forms and augmentation are seen. There is no sonographic evidence for deep venous thrombosis in the visualized segments of the left lower extremity. IMPRESSION: 1. No sonographic evidence for deep venous thrombosis in the visualized segments of the left lower extremity.
--- NOTE | 2018-07-05 13:46 | NM ---
Date of service: 07/05/2018 COMPARISON: 07/04/2018 chest x-ray TECHNIQUE: 33.2 mCi technetium 99-m DTPA aerosol. 4.0 mCI technetium 99-m MAA administered intravenously. FINDINGS: VENTILATION COMPONENT: Normal. PERFUSION COMPONENT: Normal. IMPRESSION: Lowprobability ventilation perfusion scan for pulmonary embolism.
[2018-07-05] MEDS: Milrinone 20mg/100ml D5W 100 ML IV PRN (14:01)
--- NOTE | 2018-07-05 18:55 | PN ---
DATE: 07/05/2018 REASON FOR CONSULTATION: Follow up cardiac evaluation, shortness of breath, pulmonary edema, borderline positive troponin, end-stage renal disease on dialysis. No chest pain. This note is in addition to dictated by nurse practitioner, Sherron Rosas. SUBJECTIVE: The patient has history of cardiac catheterization, found to be nonobstructive coronary artery disease. Cardiac evaluation dated 06/26/2017, that essentially shows normal coronary artery upper limit normal, right heart pressure, dated 06/26/2017; end-stage renal disease on dialysis; history of GI, AVM, gastrointestinal arteriovenous malformation, history of gastroesophageal reflux; history of portal hypertension; history of hyperparathyroidism; history of mitral regurgitation, tricuspid regurgitation; history of KADY done, ejection fraction 45%, [id number] mitral regurgitation, severe tricuspid regurgitation, RV systolic pressure of 74; history of MUGA scan on 01/03/2018, shows ejection fraction of 31%; admitted yesterday with pulmonary edema, though history of recently fracture, so I suggested V/Q scan to rule out any PE. V/Q scan shows low probability. The patient's GI bleed, not on anticoagulation, because of history of GI bleed. RECOMMENDATIONS: We will continue IV Primacor for the next 24 to 48 hours. Today, hemoglobin is 7.6, we will give 2 units of packed RBC during dialysis. Discussed with the patient, consent signed, and ordered to get the 2 units of RBC. We will repeat the blood workup in the morning. We will follow with you. If possible, we will keep next 24 hours IV Primacor and then see the patient's response and if stable we will discontinue Primacor tomorrow and possibly discharge. Thank you Dr. Gomez for providing us the opportunity in taking care of the patient, Jacqui Kraus. We will continue hydralazine as needed, continue Coreg, and continue lisinopril as blood pressure is tolerated. Po Mccullough MD
--- NOTE | 2018-07-05 19:06 | CON ---
DATE: 07/05/2018 REASON FOR CONSULTATION: Severe anemia, volume overload, shortness of breath. HISTORY OF PRESENT ILLNESS: A 57-year-old lady was sent to the emergency room from the [facility] because she developed shortness of breath and tachycardia postprocedure, she was also found to be hypotensive after her procedure. In the emergency room, she was found to be hemodynamically stable. Her pressure was not low, but she was found to be severely anemic. Her hemoglobin was 8.4, and she was thought to be volume overloaded, so the patient was admitted for observation. PAST MEDICAL AND SURGICAL HISTORY: Hypertension, ESRD, cardiac cirrhosis, history of pericardial effusion, recent left knee ORIF, recurrent anemia, thrombocytopenia, cirrhosis of liver. FAMILY HISTORY: Noncontributory. SOCIAL HISTORY: No smoking, no alcohol use, no IV drug abuse. ALLERGIES: ASPIRIN, CIPRO, ENALAPRIL, HEPARIN, LATEX, PENICILLIN, SYNTHROID, LOVENOX. MEDICATIONS AT HOME: Dilaudid, Crestor, Toradol, lisinopril, and Renagel. REVIEW OF SYSTEMS: Currently, denies any chest pain, palpitations, shortness of breath. She denies any abdominal pain. She denies any nausea or vomiting. PHYSICAL EXAMINATION: GENERAL: Middle-aged lady lying in bed. VITAL SIGNS: Blood pressure 135/67, heart rate 81, respiratory rate 20, temperature 98.1. HEENT: Normocephalic, atraumatic, positive pallor. NECK: Supple, no JVD. LUNGS: Bilateral equal entry, bilateral equal expansion, no rales. CARDIAC: S1, S2, regular rate and rhythm, no murmur, no rub. ABDOMEN: Soft, nondistended, nontender, bowel sounds present. EXTREMITIES: No lower extremity edema. LABORATORY DATA: WBC 3.7, hemoglobin 7.6, hematocrit 24.7, platelets 77. Sodium 137, potassium 4.4, chloride 98, CO2 of 30, BUN 52, creatinine 5.6, glucose 119, A1c 4.4, calcium 9.1, phosphorus 4.8, magnesium 2.1. Troponin 0.19, second set 0.15, third set 0.13. Lower extremity Dopplers, no DVT. V/Q scan, low probability. ASSESSMENT: 1. Moderate to severe MR, severe tricuspid regurg, nonischemic cardiomyopathy. 2. Pulmonary hypertension. 3. Pancytopenia, likely secondary to cirrhosis. 4. Severe anemia. 5. End-stage renal disease. 6. Recent left knee open reduction and internal fixation. 7. Decompensated congestive heart failure. PLAN: 1. Dialysis today. The patient will receive 3 units of blood on dialysis as per Cardiology recommendations. 2. The patient to start Primacor drip. 3. Monitor hemoglobin and hematocrit. 4. Continue hydralazine, Coreg Mansi Rose MD
--- NOTE | 2018-07-05 19:16 | PN ---
DATE: 07/05/2018 SUBJECTIVE: The patient is a 57-year-old, seen and examined. Today, she feels a little better, less shortness of breath, currently on 2 L nasal cannula and saturating well at 98%. PHYSICAL EXAMINATION VITAL SIGNS: She is afebrile. Pulse 81, respirations 19, blood pressure 135/67. LUNGS: Bilateral fair airflow expiratory rhonchi posteriorly at the bases, decreased breath sounds. HEART: S1 and S2 audible. ABDOMEN: Soft and nontender. No rebound. No guarding. NEUROLOGICAL: The patient is awake, alert, able to communicate. EXTREMITIES: Left leg has +2 edema. Left knee is in immobilizer. LABORATORY DATA: WBC 3.7, hemoglobin 7.6, hematocrit 24.7, platelets 77. Chemistry: Sodium 137, potassium 4.4, chloride 98, CO2 of 30, BUN 52, creatinine 5.6, blood sugar of 119. Troponin initially was 0.19, followed by 0.13. She had a V/Q scan done that shows low probability. Leg Doppler negative for DVT. ASSESSMENT: 1. Probably congestive heart failure. 2. Chronic obstructive pulmonary disease. 3. Active smoker. 4. End-stage renal disease, on hemodialysis. 5. Status post fall. 6. Knee fracture. 7. Hypertension. PLAN: Currently, the patient is on carvedilol. She is getting analgesic as needed. She is on statin. She is on Primacor drip. Continue nebulizer treatment. The patient is scheduled to receive blood transfusion during dialysis. Shawn Gomez MD
[2018-07-06 02:12] VITALS: O2SAT 97
[2018-07-06] MEDS: Levalbuterol 1.25 MG/3 ML Inhal Soln UD IH SCH ×4 (03:00→21:09)
[2018-07-06 07:07] LABS: BASO # 0.02 K/mm3 (0.0-2.0); BASO % 0.4 % (0.0-3.0); EOS # 0.4 (0.0-0.7); EOS % 7.5 % (1.5-5.0); GRAN # 3.52 (1.4-6.5); GRAN % 67.4 % (50.0-68.0); HEMOGLOBIN 8.9 g/dL (12.0-16.0); LYMPH # 0.9 (1.2-3.4); LYMPH % 17.2 % (22.0-35.0); MEAN CELL VOLUME 86.5 fl (80.0-105.0); MEAN CORPUSCULAR HEMOGLOBIN 27.4 pg (25.0-35.0); MEAN CORPUSCULAR HGB CONC 31.7 g/dl (31.0-37.0); MEAN PLATELET VOLUME 9.2 fl (7.0-11.0); MONO # 0.4 (0.1-0.6); MONO % 7.5 % (1.0-6.0); RBC 3.25 10^6/uL (3.5-6.1); RED CELL DISTRIBUTION WIDTH 15.7 % (11.5-14.5); WHITE BLOOD COUNT 5.2 10^3/uL (4.5-11.0)
--- NOTE | 2018-07-06 12:27 | RAD ---
Date of service: 07/06/2018 HISTORY: R/O pneumonia Vs CHF COMPARISON: 07/04/2018 FINDINGS: LUNGS: No active pulmonary disease. PLEURA: No significant pleural effusion identified, no pneumothorax apparent. CARDIOVASCULAR: Aortic calcification There is moderate cardiomegaly. There is improvement in the pattern of vascular and interstitial congestion. OSSEOUS STRUCTURES: No significant abnormalities. VISUALIZED UPPER ABDOMEN: Normal. OTHER FINDINGS: None. IMPRESSION: There is moderate cardiomegaly. There is improvement in the pattern of vascular and interstitial congestion.
--- NOTE | 2018-07-06 12:30 | RAD ---
Date of service: 07/06/2018 PROCEDURE: Left Knee Radiographs. HISTORY: Pain. COMPARISON: None. FINDINGS: BONES: There has been internal fixation of the distal left femoral fracture. There is anatomic alignment. No complicating factors. JOINTS: Normal. No osteoarthritis. JOINT EFFUSION: None. OTHER FINDINGS: None. IMPRESSION: There has been internal fixation of the distal left femoral fracture. There is anatomic alignment. No complicating factors.
--- NOTE | 2018-07-06 14:05 | PN ---
DATE: 07/06/2018 REASON FOR CONSULTATION: Followup cardiac evaluation, shortness of breath, pulmonary edema, borderline positive troponin, end-stage renal disease, on dialysis, no chest pain. SUBJECTIVE: The patient denies any chest pain, shortness of breath, or any palpitations. OBJECTIVE: GENERAL: Not in apparent distress, feels a lot better. VITAL SIGNS: Temperature afebrile, heart rate 73, blood pressure 130/54. HEENT: PERRLA. Extraocular muscles intact. NECK: Supple. No carotid bruit or thyromegaly. CHEST: Clear to auscultation. HEART: S1 and S2 regular. ABDOMEN: Soft. EXTREMITIES: Clubbing and cyanosis negative. LABORATORY DATA: Blood workup as follows: WBC 5.2, hemoglobin 8.9, hematocrit 28.1, platelet count 72. Chemistries showed sodium 134, potassium 3.4, chloride 96, CO2 30, anion gap 9, BUN 26, creatinine 3.2. Troponin remains 0.13 in the phase of renal insufficiency. IMPRESSION: A 57-year-old female with past medical history significant for nonobstructive coronary artery disease, status post cardiac catheterization on 06/26/2017, that showed normal coronaries, upper limit normal to mildly elevated pulmonary pressure. Multigated acquisition scan showed ejection fraction of 31%. Last transesophageal echocardiography shows ejection fraction around 35% to 40%. Transesophageal echocardiography dated 01/08/2018, ejection fraction 25%, off Primacor, [id number] mitral regurgitation, [id number] tricuspid regurgitation, right ventricular systolic pressure 74 consistent with pulmonary hypertension. When the patient had a cardiac catheterization, mild pulmonary hypertension reported, but the patient was on Primacor while the patient had a cardiac catheterization. So, significantly decreased pulmonary pressure while the patient was on Primacor and when the transesophageal echocardiography was done, the pulmonary artery pressure was 74, the patient was off Primacor, admitted with decompensated congestive heart failure, severe anemia around 7.6 as such two units of packed red blood cells was given. Today, hemoglobin is 8.9 after two units of packed red blood cells. Ventilation/perfusion scan is negative for low probability for pulmonary embolism. This acute exacerbation of congestive heart failure is secondary to underlying nonischemic cardiomyopathy, pulmonary hypertension, severe anemia. RECOMMENDATIONS: Continue dialysis aggressive, keep hemoglobin around 10. Though the patient has decreased left ventricular function, the patient needs an automatic implantable cardioverter defibrillator, but because of the patient's dialysis and history of infection in the past, will be at high risk for endocarditis from the hardware. So, we will reassess left ventricular function. If remains low in three to six months, we will consider automatic implantable cardioverter defibrillator. In the interim, continue aggressive dialysis, continue Coreg as blood pressure is tolerated, continue lisinopril. We will discontinue Primacor. I will repeat chest x-ray today to see the improvement in congestive heart failure, clinically the patient significantly improves the congestive heart failure. We will follow with you. The patient is not a candidate for anticoagulation, though the patient is a high risk for PE; therefore, the V/Q scan was done because the patient has history of gastrointestinal arteriovenous malformation. Last time she bled, the hemoglobin was 6. Though the patient is high risk for DVT and PE, but anticoagulation is more detrimental because the patient bled. At this time, the patient without any anticoagulation came in with hemoglobin 7.6. Thank you Dr. Gomez for providing us the opportunity in taking care of the patient, Jacqui Kraus. Po Mccullough MD
--- NOTE | 2018-07-06 17:19 | DS ---
HISTORY OF PRESENT ILLNESS: The patient is 57 years old, seen and examined, and doing well. No chest pain or shortness of breath. No fever. No chills. She is also on Primacor drip. Received blood yesterday. PHYSICAL EXAMINATION: VITAL SIGNS: She is afebrile. Pulse 72, respirations 19, and blood pressure 147/88. LUNGS: Bilateral fair airflow. Few soft crackle at bases. HEART: S1 and S2 audible. ABDOMEN: Soft and nontender. No rebound. No guarding. NEUROLOGIC: The patient is awake, alert, oriented, and communicative. EXTREMITIES: Cannot flex or extend left knee. Recent surgery. LABORATORY DATA: WBC 5.2, hemoglobin 8.9, hematocrit 28.1, and platelets of 72. Chemistry; sodium 134, potassium 3.4, chloride 97, CO2 of 32, BUN 22, creatinine 3.2, and blood sugar of 90. ASSESSMENT: 1. Exertional dyspnea, probably congestive heart failure in combination with chronic obstructive pulmonary disease. 2. Status post fall and left knee fracture, status post open reduction and internal fixation. 3. History of gastrointestinal bleed. 4. Symptomatic anemia status post blood transfusion. 5. End-stage renal disease, on hemodialysis. PLAN: We will get TCU evaluation. If accepted, can be transferred to TCU today. Shawn Gomez MD
[2018-07-06 17:29] VITALS: BP 153/71; RESP 17; TEMP 98.1
[2018-07-06 18:37] VITALS: PULSE 82
--- NOTE | 2018-07-06 18:42 | PN ---
DATE: 07/06/2018 SUBJECTIVE: The patient is seen lying in bed. She is awake, she is alert, she is comfortable. She had dialysis yesterday. She received 2 units of blood. PHYSICAL EXAMINATION: GENERAL: Middle-aged lady, lying in bed. VITAL SIGNS: Blood pressure 147/88, heart rate 78, respiratory rate 19, temperature 98. HEENT: Normocephalic, atraumatic, positive pallor. NECK: Supple, no JVD. LUNGS: Bilateral equal entry, bilateral equal expansion. CARDIAC: S1, S2, regular rate and rhythm, no murmur, no rub. ABDOMEN: Soft, nondistended, nontender, bowel sounds present. EXTREMITIES: Dressing of the left knee, chronic stasis changes. LABORATORY DATA: WBC 5, hemoglobin 8.9, hematocrit 28, platelets 72. Sodium 134, potassium 3.4, chloride 97, CO2 of 32, BUN 22, creatinine 3.2, glucose 90, calcium 9. Chest x-ray: Moderate cardiomegaly. X-ray of the left knee: Anatomical alignment of internally fixed left femoral fracture. MEDICATIONS: List reviewed. ASSESSMENT: 1. Shortness of breath secondary to volume overload, now improved. 2. Recurrent anemia. 3. Cardiac cirrhosis. 4. Recent left open reduction internal fixation of the knee. PLAN: 1. Currently on Primacor drip. Primacor drip discontinued yesterday. 2. Appears to be in compensated congestive heart failure. 3. ?Discharge planning. Mansi Rose MD Job # [id number]
== END 2018-07-06 21:38 | DRG 291 ==
LOC: ED 12:13 → ERH 13:48 → 2RNO 16:46
PROVIDERS: ADMIT Internal Medicine; ATTEND Internal Medicine
PROC: 5A1D70Z Performance of Urinary Filtration, Intermittent, Less than 6 Hours Per Day (ICD-10-PCS; principal; 2018-07-05)
PROC: 30233N1 Transfusion of Nonautologous Red Blood Cells into Peripheral Vein, Percutaneous Approach (ICD-10-PCS; 2018-07-05)
DX: I13.2 Hypertensive heart and chronic kidney disease with heart failure and with stage 5 chronic kidney disease, or end stage renal disease (principal); N18.6 End stage renal disease; I50.20 Unspecified systolic (congestive) heart failure; N25.81 Secondary hyperparathyroidism of renal origin; D61.818 Other pancytopenia; K86.1 Other chronic pancreatitis; J44.9 Chronic obstructive pulmonary disease, unspecified; E03.9 Hypothyroidism, unspecified; K76.1 Chronic passive congestion of liver; I27.29 Other secondary pulmonary hypertension; I25.10 Atherosclerotic heart disease of native coronary artery without angina pectoris; F17.210 Nicotine dependence, cigarettes, uncomplicated; I50.82 Biventricular heart failure; K74.60 Unspecified cirrhosis of liver; I42.9 Cardiomyopathy, unspecified; K29.70 Gastritis, unspecified, without bleeding; I08.1 Rheumatic disorders of both mitral and tricuspid valves; Z99.2 Dependence on renal dialysis; Z87.11 Personal history of peptic ulcer disease; Z91.041 Radiographic dye allergy status

== ENCOUNTER 2018-07-06 21:38 | Inpatient (IN) | payer OTHER, BC ==
[2018-07-06 22:31] VITALS: BMI 21.7
[2018-07-07] MEDS ORDERED: Pneumococcal 23-Valent Vaccine IM ONE (01:37)
--- NOTE | 2018-07-07 14:39 | HP ---
DATE OF EXAM: 07/07/2018 HISTORY OF PRESENT ILLNESS: The patient is 57 years old who came in after she was found to be hypoxic and short of breath. She was in congestive heart failure. She was started on milrinone drip, got dialysis and had extra fluid taken out. She was also found to be anemic, so received two blood transfusions during dialysis, doing pretty good. She was sent to TCU for further rehab and close monitoring. PAST MEDICAL HISTORY: She has significant past medical history of: 1. Hypertension. 2. End-stage renal disease, on hemodialysis. 3. Cardiac cirrhosis. 4. COPD. 5. Bilateral congenital hip disease, status post left total hip replacement. 6. Peptic ulcer disease. 7. History of GI bleed. ALLERGIES: THE PATIENT HAS MULTIPLE ALLERGIES INCLUDING ASPIRIN, CIPRO, CITRUS DERIVATIVE, FLU VACCINE, IODINE, LOVENOX, CODEINE, ACETAMINOPHEN, LEVOTHYROXINE, SULFA, PENICILLIN, LATEX, HEPARIN AND ENALAPRIL. SOCIAL HISTORY: She still actively smokes. She lives with her boyfriend, her two grownup children. MEDICATION AT HOME: She is on Renagel, meclizine, lisinopril, oxycodone, Crestor and albuterol. PHYSICAL EXAMINATION: GENERAL: The patient is awake, alert, oriented, communicative. VITAL SIGNS: She is afebrile, pulse 69, respiration 16 and blood pressure 113/70. LUNGS: Bilateral fair airflow. No rhonchi or crackle. HEART: S1 and S2 audible. ABDOMEN: Soft and nontender. No rebound. No guarding. NEUROLOGICAL: The patient is awake, alert, oriented and able to communicate. EXTREMITIES: Left knee wound is healing. Bilateral legs, +1 edema. ASSESSMENT: 1. Congestive heart failure, improved. 2. Acute on chronic diastolic hypertension. 3. End-stage renal disease, on hemodialysis. 4. Acute on chronic anemia. 5. Status post left knee open reduction and internal fixation. PLAN: We will continue current medication. Monitor H and H periodically and encourage ambulation and physical therapy and gait training. Shawn Gomez MD [facility] # [id number]
--- NOTE | 2018-07-07 16:23 | CON ---
DATE OF CONSULTATION: 07/07/2018 REASON FOR CONSULTATION: Continuity of care at transitional care unit, admitted with acute pulmonary edema in medical floor, history of IA, history of TR, cardiomyopathy, end-stage renal disease. BRIEF CLINICAL HISTORY: This is a 57-year-old female with past medical history significant for end-stage renal disease, on dialysis, Monday, , and Monday; history of chronic anemia; history of GI bleed; history of GI AVM; history of mitral and tricuspid regurgitation; CKD; history of cardiac catheterization, now with coronary artery disease; mild pulmonary hypertension while the patient was on Primacor; history of recently fractured knee, status post OR internal fixation, discharged to TCU and then went home. After that, the patient in 2 to 3 days came back with shortness of breath and acute pulmonary edema to the medical floor, admitted, being treated with IV Primacor. Now, the patient is in transitional care for the continuity of care. Denies any chest pain, shortness of breath, or any palpitation. PAST MEDICAL HISTORY: Significant for end-stage renal disease, on dialysis secondary to coronary arterial disease; hypertension; hyperparathyroidism; COPD; asthma; history of GI bleed; history of GI arteriovenous malformation; history of gastroesophageal reflux; history of peptic ulcer disease; history of cardiomyopathy; history of mitral regurgitation and tricuspid regurgitation; history of pulmonary hypertension; and history of normal coronaries, status post cardiac catheterization. PREVIOUS CARDIAC WORKUP: As follows, the patient had a cardiac catheterization dated 06/26/2017 that showed normal coronaries, upper limit normal right heart pressure (the patient was on Primacor). History of end-stage renal disease, on dialysis. History of pericardial effusion, impending tamponade, status post pericardial window. History of recent MUGA scan on 01/04/2018 with ejection fraction of 35%, history of normal RV function. History of echocardiography that is a KADY, 12/08/2017, showed ejection fraction 25%, moderate to severe mitral regurgitation, severe tricuspid regurgitation, RV systolic pressure of 74. The patient was off Primacor at that time. Consistent with the pulmonary hypertension. PAST SURGICAL HISTORY: Significant for cholecystectomy, history of right knee surgery, fracture 2 weeks ago, status post OR internal fixation. History of arteriovenous malformation in the intestinal tract, history of large pericardial effusion, history of pericardial window, history of AV fistula in the left arm, history of right hip surgery secondary to avascular necrosis. SOCIAL HISTORY: Smokes a pack. Denies any history of alcohol abuse. No history of substance abuse. CURRENT MEDICATIONS: The patient at home was taking oxycodone 1 tablet daily, Renagel 800 mg daily, rosuvastatin that is for cholesterol 10 mg daily, meclizine (Antivert) 25 mg daily, lisinopril 2.5 mg daily, Toradol 10 mg p.o. at bedtime p.r.n. for pain medication, albuterol ProAir inhaler. ALLERGIES: ALLERGY TO ASPIRIN, CIPROFLOXACIN, CYTRA, ENALAPRIL, HEPARIN, LATEX, PENICILLIN, SULFA, LEVOTHYROXINE, ACETAMINOPHEN, CODEINE, ENOXAPARIN, IODINE, AND INFLUENZA VIRUS VACCINE. REVIEW OF SYSTEMS: As per HPI. PHYSICAL EXAMINATION: GENERAL: Height of the patient is 5 feet and 5 inches, weight of the patient is 135 pounds, and body mass index 22 kg per meter square. VITAL SIGNS: Temperature afebrile, heart rate 69, blood pressure 139/70. HEENT: PERRLA. Extraocular muscles are intact. NECK: Supple. No carotid bruit or thyromegaly. CHEST: Clear to auscultation. HEART: S1 and S2, regular. ABDOMEN: Soft. EXTREMITIES: Clubbing and cyanosis negative. LABORATORY DATA: Blood workup, WBC is 5.2, hemoglobin 8.9, hematocrit 28.1, platelet count 72. Chemistry shows sodium 134, potassium 3.4, chloride 94, carbon dioxide 32, anion gap of 9, BUN 22, creatinine 3.2. Troponin 0.13 on admission. IMPRESSION: A 57-year-old female with a past medical history significant for end-stage renal disease, nonischemic cardiomyopathy, status post cardiac cath with normal coronaries, ejection fraction 30%, admitted with acute decongestive heart failure secondary to systolic dysfunction, treated with IV Primacor and outpatient transfer to transitional care with continuity of care. History of moderate to severe mitral regurgitation, severe tricuspid regurgitation, RV systolic pressure of 79, consistent with severe pulmonary hypertension. did not reveal any significant pulmonary hypertension because the patient was on Primacor. RECOMMENDATIONS: Continue aggressive dialysis. Continue atorvastatin. Continue Coreg 3.125 mg daily. Continue lisinopril as tolerated. Continue rehab. The patient is not a candidate for anticoagulation because of multiple times GI bleed. We will follow with you. HISTORY OF ALLERGY TO ASPIRIN, though the patient is high risk for DVT/PE, a VQ scan done at this admission showed low probability. Again, the patient is not a candidate for anticoagulation because of the history of AVM and GI bleed. We will follow with you. Also history of portal hypertension. We will repeat CBC in the morning. Thank you Dr. Gomez for providing us the opportunity in taking care of the patient, Jacqui Kraus. Po Mccullough MD
--- NOTE | 2018-07-07 21:22 | CON ---
DATE OF CONSULTATION: 07/07/2018 REASON FOR CONSULTATION: Anemia, fatigue, deconditioning. HISTORY OF PRESENT ILLNESS: A 57-year lady, well known to me from outpatient hemodialysis. The patient was admitted to the medical side because of shortness of breath, palpitations, was found to be severely anemic. The patient has a history of CHF, cardiac cirrhosis, recurrent anemia. The patient received multiple units of blood transfusion. Now she is on the Transitional Care Unit for physical therapy. Currently, she is asymptomatic. She feels well. She had physical therapy this morning. PAST MEDICAL AND SURGICAL HISTORY: Unchanged from recent evaluation. FAMILY HISTORY: Unchanged. SOCIAL HISTORY: Ex-smoker, no alcohol use, no IV drug abuse. MEDICATIONS: List reviewed. ALLERGIES: ASPIRIN, CIPROFLOXACIN, CITRUS DERIVATIVES, ENALAPRIL. REVIEW OF SYSTEMS: As mentioned in the history of presenting illness, rest unremarkable. PHYSICAL EXAMINATION: GENERAL: Middle-aged lady, lying in bed. VITAL SIGNS: Blood pressure 139/70, heart rate 70, respiratory rate 16, temperature 98.3. HEENT: Normocephalic, atraumatic, positive pallor. NECK: Supple, no JVD. LUNGS: Bilateral equal air entry, bilateral equal expansion. CARDIAC: S1 and S2. Regular rate and rhythm, no murmur, no rub. ABDOMEN: Soft, nondistended, nontender, bowel sounds present. EXTREMITIES: Soft cast over the left knee, no edema. LABORATORY DATA: No new labs. ASSESSMENT: 1. Severe anemia. 2. Thrombocytopenia. 3. End-stage renal disease. 4. Cirrhosis. 5. Recent left knee open reduction and internal fixation. PLAN: 1. Physical therapy. 2. Dialysis today. 3. Monitor labs. 4. Continue phosphate binders. Mansi Rose MD
[2018-07-08 06:19] LABS: BASO # 0.04 K/mm3 (0.0-2.0); BASO % 0.8 % (0.0-3.0); EOS # 0.5 (0.0-0.7); EOS % 9.3 % (1.5-5.0); GRAN # 3.2 (1.4-6.5); HEMOGLOBIN 9.9 g/dL (12.0-16.0); LYMPH # 0.8 (1.2-3.4); MEAN CELL VOLUME 88.2 fl (80.0-105.0); MEAN CORPUSCULAR HEMOGLOBIN 27.3 pg (25.0-35.0); MEAN CORPUSCULAR HGB CONC 30.9 g/dl (31.0-37.0); MEAN PLATELET VOLUME 9.7 fl (7.0-11.0); MONO # 0.4 (0.1-0.6); MONO % 7.9 % (1.0-6.0); RBC 3.63 10^6/uL (3.5-6.1); RED CELL DISTRIBUTION WIDTH 16.5 % (11.5-14.5); WHITE BLOOD COUNT 4.9 10^3/uL (4.5-11.0)
--- NOTE | 2018-07-08 14:24 | PN ---
DATE: 07/08/2018 REASON FOR CONSULTATION AND FOLLOWUP: Continuity of care at transitional care unit, admitted with pulmonary edema, in medical floor, history of MR, history of CA, history of TR, end-stage renal disease. SUBJECTIVE: The patient feels a lot better. PHYSICAL EXAMINATION: GENERAL: Not in apparent distress. VITAL SIGNS: Temperature afebrile, heart rate 89, blood pressure 145/75. HEENT: PERRLA. Extraocular muscles intact. NECK: Supple. No carotid bruit or thyromegaly. CHEST: Clear to auscultation. HEART: S1 and S2, regular. ABDOMEN: Soft. EXTREMITIES: Clubbing, cyanosis negative. LABORATORY DATA: Blood workup as follows: WBC 4.9, hemoglobin 9.9, hematocrit 32, platelet count 82. IMPRESSION: A 57-year-old female with past medical history significant for end-stage renal disease, on dialysis, cardiomyopathy, admitted with pulmonary edema. The patient is initiated on Primacor. Now, the patient is in transitional care with the continuity of care. RECOMMENDATIONS: Continue lisinopril, continue Coreg as the blood pressure is tolerated, p.r.n. hydralazine. We will follow with you. Thank you Dr. Gomez for providing us the opportunity in taking care of the patient, Nayana Osman. Po Mccullough MD
--- NOTE | 2018-07-09 16:35 | PN ---
DATE: 07/09/2018 REASON FOR CONSULTATION AND FOLLOWUP: Continuity of care at transitional care unit, admitted with pulmonary edema in medical floor, history of tricuspid regurgitation, end-stage renal disease, history of [place]. SUBJECTIVE: The patient denies any chest pain, shortness of breath, any new palpitation. PHYSICAL EXAMINATION: GENERAL: Not in apparent distress physical therapy. VITAL SIGNS: Temperature afebrile, heart rate 94, blood pressure 143/79. HEENT: PERRLA. Extraocular muscles intact. NECK: Supple. No carotid bruit or thyromegaly. CHEST: Clear to auscultation. HEART: S1 and S2, regular. ABDOMEN: Soft. EXTREMITIES: Clubbing, cyanosis negative. LABORATORY DATA: Blood workup as follows: WBC 4.9, hemoglobin 9.9, hematocrit 32, platelet count 82. Chemistry shows sodium not available. IMPRESSION: A 57-year-old female with past medical history significant for end-stage renal disease, on dialysis Monday, , Monday, and dialysis is scheduled; history of cardiomyopathy, admitted with pulmonary edema. Initially treated with Primacor. Now, the patient is in transitional care with continuity of care. History of myocardial infarction, history of tricuspid regurgitation. RECOMMENDATIONS: Continue lisinopril, continue Coreg. Yesterday at one episode the patient had high blood pressure, so put p.r.n. hydralazine. We will follow with you. Thank you Dr. Gomez for providing us the opportunity in taking care of the patient, Nayana Osman. Po Mccullough MD
[2018-07-09] MEDS ORDERED: HYDROmorphone 2 mg/ml ISec IVP STA (23:45)
--- NOTE | 2018-07-10 04:23 | PN ---
DATE: 07/09/2018 SUBJECTIVE: The patient is 57 years old, seen and examined, lying in bed, seems to be comfortable. No nausea, vomiting, no diarrhea. No chest pain, no shortness of breath. PHYSICAL EXAMINATION: VITAL SIGNS: She is afebrile, pulse 68, respirations 16, blood pressure 139/68. LUNGS: Bilateral fair airflow. No rhonchi or crackle. HEART: S1 and S2 audible. ABDOMEN: Soft, nontender. No rebound. No guarding. NEUROLOGICAL: Patient is awake, alert, oriented and communicative. LABORATORY DATA: There is no new lab available today. ASSESSMENT: 1. Status post congestive heart failure. 2. Chronic obstructive pulmonary disease. 3. Hypertension. 4. Hyperlipidemia. 5. End-stage renal disease, on hemodialysis. 6. Status post fall, left tibial fracture status post open reduction and internal fixation. PLAN: Currently, the patient is on meclizine t.i.d.; she is getting carvedilol, she is on hydromorphone as needed, atorvastatin, she is on nicotine patch, she is getting nebulizer treatment, she is on lisinopril 2.5 daily. Shawn Gomez MD
--- NOTE | 2018-07-10 12:45 | PN ---
DATE: 07/10/2018 REASON FOR CONSULTATION AND FOLLOWUP: Continuity of care at the Transitional Care Unit, admitted with pulmonary edema at the medical floor, history of tricuspid and mitral valve regurgitation; end-stage renal disease, on dialysis. No history of [place]. SUBJECTIVE: The patient denies any chest pain, shortness of breath, or any palpitation. OBJECTIVE: Examination as follows; GENERAL: She is not in apparent distress. VITAL SIGNS: Temperature afebrile, heart rate 69, and blood pressure 143/74. HEENT: PERRLA intact. NECK: Supple. No carotid bruit or thyromegaly. CHEST: Clear to auscultation. HEART: S1, S2 regular. ABDOMEN: Soft. EXTREMITIES: Clubbing and cyanosis negative. LABORATORY DATA: Blood workup; WBC 4.9, hemoglobin 9.9, hematocrit 32, and platelet count 82. IMPRESSION: A 57-year-old female with past medical history significant for end-stage renal disease, on dialysis Monday, Monday, and Monday; moderate to severe and mildly to moderate tricuspid regurgitation; nonischemic cardiomyopathy status post cardiac catheterization; nonobstructive coronary artery disease. Admitted with pulmonary edema, treated with IV Primacor. Now, the patient is in continuity of care in Transitional Care Unit. RECOMMENDATIONS: Continue lisinopril, continue Coreg, p.r.n. hydralazine; if had the blood pressure goes up only one episode, pressures elevated, treated with the hydralazine. No evidence of [place]. Po Mccullough MD
--- NOTE | 2018-07-10 18:53 | PN ---
DATE: 07/10/2018 SUBJECTIVE: The patient is currently seen in Dialysis. She is a Monday, , Monday dialysis patient. The patient is doing rehabilitation in the TCU. The patient has been doing relatively well. She is now weightbearing and has better range of motion of her left knee. MEDICATIONS: Medication list reviewed. The patient is currently on meclizine, Apresoline, Coreg, p.r.n. Dilaudid, Lipitor, NicoDerm CQ, Renagel, Xopenex, and lisinopril. OBJECTIVE: VITAL SIGNS: Blood pressure 143/74, pulse of 69, temperature 97.9, respiratory rate of 14. HEENT: Exam shows her to be normocephalic, atraumatic. Conjunctivae are pale. Sclerae are nonicteric. NECK: Supple. No neck vein distention. CHEST: Clear to auscultation and percussion. No rales, rhonchi, or wheezing. CARDIOVASCULAR: Shows a regular rate and rhythm with MR/TR. No S3, no S4, no rub. ABDOMEN: Soft. Bowel sounds normal. No rebound, guarding, or masses. EXTREMITIES: Show a dressing over her left knee area. No significant lower extremity edema. Cannulated left upper extremity AV fistula. LABORATORY DATA AND IMAGING STUDIES: Last CBC, white blood cell count 4.9, hemoglobin 9.9, with a platelet count of 82,000. Chemistries from 07/06/2018 showed a BUN of 22, with a creatinine of 3.2, potassium was 3.4, calcium was 9, with a phosphorus of 4.8, magnesium level 2.1. ASSESSMENT: 1. End-stage renal disease. Continue Monday, , and Monday dialysis. 2. Anemia, stable hemoglobin in the 9 to 10 range. The patient will continue Aranesp per protocol on dialysis. 3. Thrombocytopenia, currently stable. 4. History of hypertension. Blood pressure controlled on present medical therapy and with dialysis. 5. History of secondary hyperparathyroidism. Continue to monitor phosphorus levels and continue binder therapy. Continue renal diet. 6. History of cardiac cirrhosis, currently stable. 7. History of pulmonary hypertension, currently stable. 8. History of hyperlipidemia, controlled with diet and medical therapy. 9. Status post recent left knee open reduction and internal fixation of a left knee fracture. PLAN: 1. Continue physical therapy and increase her endurance and ability to ambulate. The patient will remain in the TCU likely until the early part of the weekend. 2. Suggest checking labs with dialysis treatments. 3. Continue binder therapy and renal diet. 4. Continue to monitor hemoglobin and adjust Aranesp accordingly. Deon Mathews MD
--- NOTE | 2018-07-11 00:59 | PN ---
DATE: 07/10/2018 SUBJECTIVE: The patient is 57 years old. Seen and examined. Lying in bed. Seems to be comfortable. Complained of feeling tired. Eating and tolerating. PHYSICAL EXAMINATION: VITAL SIGNS: She is afebrile, pulse 69, respiration 14, blood pressure 143/74. LUNGS: Bilateral fair airflow. No rhonchi or crackle. HEART: S1 and S2 are audible. ABDOMEN: Soft, nontender. No rebound. No guarding. NEUROLOGIC: The patient is awake, alert, oriented, communicative. EXTREMITIES: Left leg is in the dressing. Left knee is in the dressing. Bilateral legs, no edema. However, she has +1 edema in the left operative leg. ASSESSMENT AND PLAN: 1. Status post congestive heart failure, acute on chronic systolic. 2. Chronic obstructive pulmonary disease exacerbation, active smoker. 3. Status post fall and left knee fracture,, status post open reduction and internal fixation. 4. End-stage renal disease, on hemodialysis. 5. Acute on chronic anemia secondary to being on anticoagulant for deep venous thrombosis prophylaxis, status post multiple blood transfusions. PLAN: I will order for CBC in a.m. Continue the patient on current medical regimen. We will renew her medications and keep her on laxative. We will follow up in a.m. Shawn Gomez MD
[2018-07-11 06:26] LABS: BASO # 0.02 K/mm3 (0.0-2.0); BASO % 0.5 % (0.0-3.0); EOS # 0.3 (0.0-0.7); EOS % 7.6 % (1.5-5.0); GRAN # 2.4 (1.4-6.5); GRAN % 62.5 % (50.0-68.0); HEMOGLOBIN 9.4 g/dL (12.0-16.0); LYMPH # 0.8 (1.2-3.4); LYMPH % 19.8 % (22.0-35.0); MEAN CELL VOLUME 88.1 fl (80.0-105.0); MEAN CORPUSCULAR HEMOGLOBIN 27.2 pg (25.0-35.0); MEAN CORPUSCULAR HGB CONC 30.9 g/dl (31.0-37.0); MONO # 0.4 (0.1-0.6); MONO % 9.6 % (1.0-6.0); RBC 3.45 10^6/uL (3.5-6.1); RED CELL DISTRIBUTION WIDTH 16.8 % (11.5-14.5); WHITE BLOOD COUNT 3.8 10^3/uL (4.5-11.0)
[2018-07-11] MEDS: Levalbuterol 1.25 MG/3 ML Inhal Soln UD IH PRN (08:33)
--- NOTE | 2018-07-11 12:32 | PN ---
DATE: 07/11/2018 REASON FOR CONSULTATION: Followup, continuity of care at the transitional care unit, admitted with pulmonary edema, normal coronary and mild mitral regurgitation, tricuspid regurgitation, non-ischemic cardiomyopathy, end-stage renal disease, on dialysis. No history of CO. SUBJECTIVE: The patient denies any chest pain, shortness of breath, or any palpitation. Feels a lot better. OBJECTIVE: GENERAL: Not in apparent distress. VITAL SIGNS: Temperature afebrile, heart rate 69, and blood pressure 143/75. HEENT: PERRLA intact. NECK: Supple. No carotid bruit or thyromegaly. CHEST: Clear to auscultation. HEART: S1, S2, regular. ABDOMEN: Soft. EXTREMITIES: Clubbing and cyanosis negative. LABORATORY DATA: Blood workup as follows: WBC 3.8, hemoglobin 9.4, hematocrit 30.4, and platelet count 72. IMPRESSION: This is a 57-year-old female with past medical history significant for end-stage renal disease, on dialysis; non-ischemic cardiomyopathy status post cardiac catheterization, admitted with pulmonary edema, treated with intravenous Primacor, and history of pulmonary hypertension. Now, the patient is in transitional care unit for continuity of care. RECOMMENDATIONS: Continue Coreg, continue lisinopril, continue hydralazine p.r.n., continue dialysis. If the blood pressure more, I will give hydralazine p.r.n. We will follow with you. Continue rehab. Thank you Dr. Gomez for providing us the opportunity in taking care of the patient, Jacqui Kraus. Po Mccullough MD
--- NOTE | 2018-07-12 00:18 | PN ---
DATE: 07/11/2018 SUBJECTIVE: The patient is seen lying in bed. She is comfortable. She does not appear to be in any kind of distress. PHYSICAL EXAMINATION: GENERAL: Middle-aged lady lying in bed. VITAL SIGNS: Blood pressure 150/74, heart rate 72, respiratory rate 20, temperature 98. HEENT: Normocephalic, atraumatic, positive pallor. NECK: Supple, no JVD. LUNGS: Bilateral equal air entry, no rales. EXTREMITIES: No lower extremity edema. LABORATORY DATA: CBC shows hemoglobin of 9.4. MEDICATIONS: List reviewed. ASSESSMENT: 1. Recurrent severe anemia, status post multiple units of transfusion, hemoglobin stable. 2. End-stage renal disease. Next dialysis tomorrow. 3. Hypertension. 4. Recent open reduction internal fixation, left knee. PLAN: 1. Next HD tomorrow. 2. Physical therapy. 3. Discharge planning. Mansi Rose MD
[2018-07-12] MEDS: Levalbuterol 1.25 MG/3 ML Inhal Soln UD IH PRN (07:40)
--- NOTE | 2018-07-12 08:12 | PN ---
DATE: 07/11/2018 SUBJECTIVE: The patient is a 57-year-old, seen and examined, doing well, participating in therapy. Pain is improving. PHYSICAL EXAMINATION: VITAL SIGNS: She is afebrile, pulse 71, respirations 18, and blood pressure 150/62. LUNGS: Bilateral fair airflow. No rhonchi or crackles. HEART: S1 and S2 audible. ABDOMEN: Soft, nontender. No rebound. No guarding. NEUROLOGICAL: The patient is awake, alert, and oriented. Able to communicate. Ambulates with assistance. ASSESSMENT: 1. Status post congestive heart failure, improving. 2. Hypertension. 3. End-stage renal dialysis, on hemodialysis. 4. Status post falling left tibial fracture, open reduction and internal fixation. PLAN: We will continue the patient on current medication and continue physical therapy. Possible discharge on Monday. Shawn Gomez MD
--- NOTE | 2018-07-12 15:14 | PN ---
DATE: 07/12/2018 REASON FOR CONSULTATION AND FOLLOWUP: Continuity of care in the Transitional Care Unit, admitted with pulmonary edema, normal coronaries, mitral regurgitation and tricuspid regurgitation, nonischemic cardiomyopathy, end-stage renal disease on dialysis. No history of CO. SUBJECTIVE: The patient denies any chest pain, shortness of breath or any palpitation. OBJECTIVE: GENERAL: Not in apparent distress. She is getting rehab, physical therapy in TCU. VITAL SIGNS: Temperature afebrile, heart rate 54, blood pressure 147/80. HEENT: PERRLA. Extraocular muscles intact. NECK: Supple. No carotid bruit or thyromegaly. CHEST: Clear to auscultation. HEART: S1, S2 regular. ABDOMEN: Soft. EXTREMITIES: Clubbing and cyanosis negative. LABORATORY DATA: Blood workup: WBC 3.8, hemoglobin 9.1, hematocrit 30.4, platelet count 72 as of yesterday. IMPRESSION: A 57-year-old female with past medical history significant for end-stage renal disease on dialysis, pulmonary hypertension, mitral regurgitation and tricuspid regurgitation admitted with acute pulmonary edema. We initially treated with IV Primacor, now the patient is in continuity of care in Transitional Care Unit, getting rehab. History of recent knee fracture status post fall and on rehab therapy. RECOMMENDATIONS: Continue Coreg 6.25 mg daily, continue low-dose lisinopril, hydralazine started as needed. We will increase Coreg to 6.25 and increase lisinopril to 5 mg daily as heart rate and blood pressure are tolerated. We will follow with you. Thank you Dr. Gomez for providing us the opportunity in taking care of the patient, Jacqui Kraus. Po Mccullough MD
--- NOTE | 2018-07-12 20:36 | PN ---
DATE: 07/12/2018 SUBJECTIVE: The patient is a 57-year-old seen and examined, lying in bed, seems to be comfortable, going for dialysis today. Minimal left leg pain. PHYSICAL EXAMINATION VITAL SIGNS: She is afebrile. Pulse 64, respirations 20, and blood pressure 145/64. LUNGS: Bilateral fair airflow. No rhonchi or crackle. HEART: S1 and S2 audible. ABDOMEN: Soft and nontender. No rebound. No guarding. NEUROLOGICAL: She is awake, alert, oriented, and able to communicate. EXTREMITIES: Limited movement in the left knee. ASSESSMENT AND PLAN: 1. End-stage renal disease, on hemodialysis. 2. Status post gastrointestinal bleed, status post two blood transfusions. 3. Congestive heart failure, resolved, acute on chronic systolic. 4. Hyperlipidemia. 5. Cardiac cirrhosis. 6. Chronic obstructive pulmonary disease. 7. Active smoker. PLAN: We will continue the patient on current medications. Possible discharge plan on Monday. Shawn Gomez MD
--- NOTE | 2018-07-13 16:59 | PN ---
DATE: 07/13/2018 LOCATION: Room 322, bed 1. REASON FOR CONSULTATION: Followup, pulmonary edema, abnormal coronaries, mitral regurgitation, tricuspid regurgitation, nonischemic cardiomyopathy, end stage renal failure, on dialysis. SUBJECTIVE: The patient denies any chest pain, shortness of breath or palpitation. The patient is lying comfortably in the bed. PHYSICAL EXAMINATION: VITAL SIGNS: Blood pressure 150/68, respirations 20, pulse 69, temperature 98.4. HEENT: Head is normocephalic. Eyes: Pupils normal, conjunctivae slightly pale. NECK: JVP low. Carotid equal. THORAX: AP diameter normal. LUNGS: No significant rales. CARDIOVASCULAR: S1, S2 (systolic murmur grade 2/6). ABDOMEN: Soft. No tenderness. No organomegaly. EXTREMITIES: No clubbing, no cyanosis. LABORATORY DATA: WBC 3.8, hemoglobin 9.4, hematocrit 30.4, platelet 72. DIAGNOSES: End-stage renal failure; on dialysis, pulmonary hypertension, mitral regurgitation, tricuspid regurgitation, acute pulmonary edema, anemia, low platelet count, the patient had recent knee surgery, deconditioning. PLAN: The patient was treated initially on stopped and the patient improved. The patient continued to get physical therapy and she is getting Coreg 6.25 b.i.d, atorvastatin 40 daily, mg p.o. daily, Xopenex nebulizer therapy, lisinopril 5 mg daily. We will continue the therapy, continue physical therapy and continue dialysis as per Renal. We will continue to follow with you. Po Bradford MD
--- NOTE | 2018-07-13 23:42 | PN ---
DATE: 07/13/2018 SUBJECTIVE: The patient is a 57 years old. Seen and examined. Lying in bed. Seems to be comfortable. Will receive dialysis tomorrow. Some pain in the lower back and the left knee area. Otherwise doing well. PHYSICAL EXAMINATION: VITAL SIGNS: She is afebrile, pulse 67, respirations 16, and blood pressure 134/63. LUNGS: Bilateral fair airflow. No rhonchi or crackle. HEART: S1 and S2 audible. ABDOMEN: Soft, nontender. No rebound. No guarding. NEUROLOGICAL: The patient is awake and alert, oriented. Communicative. LABORATORY EXAMINATION: There is no new lab available. ASSESSMENT AND PLAN: 1. History of gastrointestinal bleed, status post blood transfusion. 2. End-stage renal dialysis, on hemodialysis. 3. Congestive heart failure, stable. 4. Chronic obstructive pulmonary disease. 5. Active smoker. 6. Status post fall and left knee fracture, status post open reduction and internal fixation. The patient is clinically stable. Continue current medications. We will discharge the patient home in a.m. Shawn Gomez MD
--- NOTE | 2018-07-14 03:21 | PN ---
DATE: 07/13/2018 SUBJECTIVE: The patient is seen lying in bed. She is awake. She is alert. She is comfortable. PHYSICAL EXAMINATION: GENERAL: She does not appear to be in any kind of distress. VITAL SIGNS: Blood pressure 134/63, heart rate 67, respiratory rate 18, temperature 98. HEENT: Normocephalic, atraumatic. NECK: Supple. No JVD. EXTREMITIES: No lower extremity edema. LABORATORY DATA: No new labs. MEDICATIONS: List reviewed. ASSESSMENT: 1. Recurrent anemia, monitor hemoglobin and hematocrit. 2. End-stage renal disease. 3. Recent left open reduction and internal fixation. 4. Hyperphosphatemia. PLAN: 1. Dialysis tomorrow. 2. Continue physical therapy. 3. Discharge planning. Mansi Rose MD
[2018-07-14 10:18] VITALS: PULSE 71; RESP 18; TEMP 98; O2SAT 98
[2018-07-14 17:38] VITALS: BP 150/69
--- NOTE | 2018-07-14 20:46 | PN ---
DATE: 07/14/2018 LOCATION: The patient is in room 322, bed 1. REASON FOR CONSULTATION: Followup pulmonary edema, normal coronary arteries, mitral regurgitation, tricuspid regurgitation, nonischemic cardiomyopathy, end-stage renal failure, on dialysis, deconditioning. SUBJECTIVE: The patient denies any chest pain. She says breathing is stable. Denies palpitation. The patient continues to get physical therapy. PHYSICAL EXAMINATION VITAL SIGNS: Blood pressure 148/68, respirations 18, pulse 71, temperature 98. HEENT: Head: Normocephalic. Eyes: Pupils are normal. Conjunctivae slightly pale. NECK: JVP low. Carotid equal. THORAX: AP diameter normal. LUNGS: Few rales on the left base. Otherwise, lungs clear. CARDIOVASCULAR: S1 and S2, pansystolic murmur. No rub. ABDOMEN: Soft. No tenderness. No organomegaly. Bowel sounds are normal. EXTREMITIES: No clubbing. No cyanosis. LABORATORY DATA: WBC 3.8, hemoglobin 9.4, hematocrit 30.4, platelets 72. Other labs were done earlier and they were reported in previous notes. DIAGNOSES: End-stage renal failure, on dialysis; pulmonary hypertension; mitral regurgitation; tricuspid regurgitation; acute pulmonary edema; anemia; low platelet count; recent knee surgery; deconditioning. PLAN: Continue physical therapy. Continue dialysis as scheduled. We will continue carvedilol 6.25 b.i.d., atorvastatin 40 daily, Renagel 800 mg daily, Xopenex nebulizer therapy and lisinopril 5 mg daily. We will follow with you. Po Bradford MD
--- NOTE | 2018-07-15 00:12 | PN ---
DATE: 07/14/2018 SUBJECTIVE: The patient is currently seen post dialysis today. She is preparing for discharge later today. She is ambulating around the room with a rolling walker. MEDICATIONS: Medication list reviewed. The patient is currently on Antivert, Apresoline, Coreg, Dilaudid, Lipitor, NicoDerm CQ, Renagel, Xopenex, and lisinopril. OBJECTIVE: VITAL SIGNS: Blood pressure 150/69, temperature 98, respiratory rate is 18 with a pulse of 71. HEENT: Normocephalic, atraumatic. Conjunctivae remain pale. Sclerae are nonicteric. NECK: Supple. No neck vein distention. CHEST: Clear to auscultation and percussion. No rales, rhonchi, or wheezing. CARDIOVASCULAR: Shows a regular rate and rhythm with MR/TR. No S3. No S4. No rub. ABDOMEN: Soft. Bowel sounds normal. No rebound, guarding, or masses. EXTREMITIES: Show no significant lower extremity edema. She has a left upper extremity AV fistula. Positive thrill. Positive bruit. LABORATORY DATA AND IMAGING: No recent studies were done. Last CBC: White blood cell count 3.8, hemoglobin 9.4 with a platelet count of 72,000 done on 07/11/2018. No recent chemistries. ASSESSMENT: 1. End-stage renal disease. The patient will continue on a Monday, , Monday dialysis schedule. 2. Anemia, secondary to chronic kidney disease. The patient will continue Aranesp per protocol with dialysis with IV iron infusions as per protocol. 3. History of thrombocytopenia, stable. 4. History of hypertension. Blood pressure control is acceptable on current medical therapy. 5. History of secondary hyperparathyroidism. We will continue to monitor phosphorus levels in the outpatient setting and adjust binder therapy accordingly. The patient will continue on a renal diet. 6. History of cardiac cirrhosis, stable. 7. History of pulmonary hypertension, stable. 8. History of hyperlipidemia, controlled with diet and medical therapy. PLAN: 1. Continue outpatient dialysis as noted above. 2. Agree with discharge home later today. 3. Adjust Aranesp and iron therapy on dialysis to help correct her anemia. 4, Continue physical therapy. She is status post left knee ORIF. Deon Mathews MD [facility] # [id number]
== END 2018-07-14 21:12 | disposition home or self-care (01) | DRG 291 ==
LOC: TRCU 21:38
PROVIDERS: ADMIT Internal Medicine; ATTEND Internal Medicine
PROC: F07Z9FZ Gait Training/Functional Ambulation Treatment using Assistive, Adaptive, Supportive or Protective Equipment (ICD-10-PCS; principal; 2018-07-07)
PROC: F07M6ZZ Therapeutic Exercise Treatment of Musculoskeletal System - Whole Body (ICD-10-PCS; 2018-07-07)
PROC: F08Z1ZZ Dressing Techniques Treatment (ICD-10-PCS; 2018-07-08)
PROC: F08Z2ZZ Grooming/Personal Hygiene Treatment (ICD-10-PCS; 2018-07-08)
PROC: F08Z0ZZ Bathing/Showering Techniques Treatment (ICD-10-PCS; 2018-07-08)
PROC: F08Z4ZZ Home Management Treatment (ICD-10-PCS; 2018-07-08)
DX: I13.2 Hypertensive heart and chronic kidney disease with heart failure and with stage 5 chronic kidney disease, or end stage renal disease (principal); N18.6 End stage renal disease; I50.23 Acute on chronic systolic (congestive) heart failure; J44.1 Chronic obstructive pulmonary disease with (acute) exacerbation; N25.81 Secondary hyperparathyroidism of renal origin; D63.1 Anemia in chronic kidney disease; D69.6 Thrombocytopenia, unspecified; E78.5 Hyperlipidemia, unspecified; E83.39 Other disorders of phosphorus metabolism; F17.200 Nicotine dependence, unspecified, uncomplicated; I08.1 Rheumatic disorders of both mitral and tricuspid valves; I25.10 Atherosclerotic heart disease of native coronary artery without angina pectoris; I25.2 Old myocardial infarction; I27.20 Pulmonary hypertension, unspecified; I42.9 Cardiomyopathy, unspecified; K21.9 Gastro-esophageal reflux disease without esophagitis; K74.60 Unspecified cirrhosis of liver; R09.02 Hypoxemia; Z87.11 Personal history of peptic ulcer disease; Z91.81 History of falling; Z96.642 Presence of left artificial hip joint; Z99.2 Dependence on renal dialysis

== ENCOUNTER 2018-08-06 11:35 | Emergency (ER) | payer MEDICARE, BC ==
[2018-08-06 11:36] VITALS: PULSE 79
[2018-08-06 11:48] VITALS: BMI 21.4
--- NOTE | 2018-08-06 12:13 | ED PDOC ---
Arrival/HPI - General Chief Complaint: Abdominal Pain Time Seen by Provider: 08/06/18 11:51 Historian: Patient - History of Present Illness Narrative History of Present Illness (Text): 08/06/18 12:09 57 year old female, with past medical history of COPD, CHF, hypertension, left AV shunt, ESRD on hemodialysis (//Mon), chronic anemia, chronic pancreatitis, and GI bleed, presents to the ED for evaluation of generalized weakness, abdominal pain, nausea and diarrhea since 2 days. Patient informs associated lower extremity myalgia, decreased appetite and dizziness with ambulation secondary to the symptoms. Patient denies any other somatic complaints. Patient denies any fevers, chills, headache, chest pain, shortness of breath, dyspnea on exertion, cough, vomiting, back pain, neck pain, or any other complaints. Patient states she is due for dialysis today secondary to holiday on Monday. Patient denies any recent sick contact. PMD: Dr. Gomez Time/Duration: < week Symptom Onset: Gradual Symptom Course: Unchanged Activities at Onset: Light Context: Home Past Medical History - Provider Review Nursing Documentation Reviewed: Yes - Past History Past History: Non-Contributing - Infectious Disease Hx of Infectious Diseases: None - Tetanus Immunization Tetanus Immunization: Up to Date - Reproductive Menopause: Yes - Cardiac Hx Cardiac Disorders: Yes - Pulmonary Hx Chronic Obstructive Pulmonary Disease (COPD): Yes - Neurological Hx Neurological Disorder: Yes - HEENT Hx HEENT Disorder: Yes Hx Blind: Yes (partial, left eye) Hx Cataracts: ([place]) Hx Deafness: Yes - Renal Hx Renal Failure: Yes - Endocrine/Metabolic Hx Hypothyroidism: Yes - Hematological/Oncological Hx Blood Disorders: Yes Hx Anemia: Yes - Integumentary Hx Dermatological Disorder: Yes (LEFT UPPER ARM SHUNT) Other/Comment: CALCIPHYLAXIS-DRY ROUND RASH ALL OVER HER BODY,ARMS,LEG. BILATERAL DISCOLORED DARK BROWN SKIN.TIGHT. - Musculoskeletal/Rheumatological Hx Falls: Yes (Recent left knee fx) - Gastrointestinal Hx Gastrointestinal Disorders: Yes (GI BLEED,SBO,APPENDICITIS,INGRAM'S ESOPHAGUS) - Genitourinary/Gynecological Hx Genitourinary Disorders: Yes ([place]) - Psychiatric Hx Anxiety: No Hx Bipolar Disorder: No Hx Depression: No Hx Post Traumatic Stress Disorder: No Hx Schizophrenia: No Hx Substance Use: No - Surgical History Hx Appendectomy: No Hx Cholecystectomy: Yes Hx Coronary Stent: No - Anesthesia Hx Anesthesia Reactions: No Hx Malignant Hyperthermia: No - Suicidal Assessment Feels Threatened In Home Enviroment: No Family/Social History - Physician Review Nursing Documentation Reviewed: Yes Family/Social History: Unknown Family HX Smoking Status: Current Some Days Smoker Hx Alcohol Use: No Hx Substance Use: No Hx Substance Use Treatment: No Allergies/Home Meds Allergies/Adverse Reactions: Allergies aspirin Allergy (Severe, Verified 07/11/18 00:57) ANAPHYLAXIS ciprofloxacin Allergy (Severe, Verified 07/11/18 00:57) ANAPHYLAXIS [place] Derivatives Allergy (Severe, Verified 07/11/18 00:57) ANAPHYLAXIS enalapril Allergy (Severe, Verified 07/11/18 00:57) HIVES heparin Allergy (Severe, Verified 07/11/18 00:57) ANAPHYLAXIS latex Allergy (Severe, Verified 07/11/18 00:57) ANAPHYLAXIS Penicillins Allergy (Severe, Verified 07/11/18 00:57) ANAPHYLAXIS Sulfa (Sulfonamide Antibiotics) Allergy (Severe, Verified 07/11/18 00:57) ANAPHYLAXIS levothyroxine sodium [From Levoxyl] Allergy (Intermediate, Verified 07/11/18 00:57) RASH acetaminophen Allergy (Mild, Verified 07/11/18 00:57) RASH codeine Allergy (Mild, Verified 07/11/18 00:57) RASH enoxaparin Allergy (Mild, Verified 07/11/18 00:57) RASH iodine Allergy (Mild, Verified 07/11/18 00:57) RASH influenza virus vaccine, specific Allergy (Verified 07/11/18 00:57) hives Home Medications: Home Meds Medication Instructions Recorded Confirmed Sevelamer [Renagel] 800 mg PO DAILY 10/10/17 07/11/18 Albuterol Sulfate [Proair Hfa] 200 puff IH QID 07/04/18 07/11/18 Lisinopril [Zestril] 2.5 mg PO DAILY 07/04/18 07/11/18 Rosuvastatin Calcium [Crestor] 10 mg PO DAILY 07/04/18 07/11/18 Review of Systems - Physician Review All systems were reviewed & negative as marked: Yes - Review of Systems Constitutional: absent: Fevers Respiratory: absent: SOB, Cough Cardiovascular: absent: Chest Pain Gastrointestinal: Abdominal Pain, Diarrhea, Nausea. absent: Vomiting Genitourinary Female: absent: Dysuria, Urine Output Changes Musculoskeletal: Myalgias. absent: Back Pain, Neck Pain Skin: absent: Rash Neurological: Dizziness. absent: Headache Physical Exam Vital Signs Reviewed: Yes Vital Signs Temp Pulse Resp BP Pulse Ox 08/06/18 11:36 98.7 F 105 H 20 151/84 H 99 Temperature: Afebrile Blood Pressure: Normal Pulse: Tachycardic Respiratory Rate: Normal Appearance: Positive for: Non-Toxic, Comfortable, Ill-Appearing Pain Distress: None Mental Status: Positive for: Alert and Oriented X 3 - Systems Exam Head: Present: Atraumatic, Normocephalic Pupils: Present: PERRL Extroacular Muscles: Present: EOMI Conjunctiva: Present: Other ([place]) Mouth: Present: Dry (Mildly dry) Neck: Present: Normal Range of Motion Respiratory/Chest: Present: Clear to Auscultation, Good Air Exchange. No: Respiratory Distress, Accessory Muscle Use Cardiovascular: Present: Murmurs (Systolic murmur noted), Normal S1, S2, Tachycardic Abdomen: Present: Tenderness (Epigastric tenderness), Normal Bowel Sounds. No: Distention, Peritoneal Signs Back: Present: Normal Inspection Upper Extremity: Present: Normal Inspection, Other (Dialysis shunt noted to left upper extremity with good bruit and thrill). No: Cyanosis, Edema Lower Extremity: Present: Normal Inspection. No: Edema Neurological: Present: GCS=15, CN II-XII Intact, Speech Normal Skin: Present: Warm, Dry, Normal Color. No: Rashes Psychiatric: Present: Alert, Oriented x 3, Normal Insight, Normal Concentration Medical Decision Making ED Course and Treatment: 08/06/18 12:08 Impression: 57 year old female presents to the ED for evaluation of abdominal pain, nausea and diarrhea. Plan: -- EKG -- Labs -- Chest X-ray -- Pepcid -- Zofran -- Urine Culture -- Urinalysis -- Reassess and disposition Prior Visits: Notes and results from previous visits were reviewed. Progress Notes: 08/06/18 12:00 EKG: Ordered, reviewed, and independently interpreted the EKG. Rate : 96 BPM Rhythm : NSR Interpretation : Left axis deviation. LVH with repolarization abnormality. No ST elevation. Prolonged QT. Normal interval, normal QRS. No change from previous EKG performed on 07/04/18. 08/06/18 13:10 Chest X-ray reviewed by radiologist, shows no active disease. 08/06/18 15:[address] Gomez, who is aware and requests to consult Dr. Rose for dialysis today prior to any possible admission. 08/06/18 15:35 Dr. Rose pagechemo. Spoke to her service and was informed that Dr. Heard is covering. Dr. Heard paged. 08/06/18 16:00 Dr. Heard returned page and informed he is not covering for Dr. Rose. 08/06/18 16:[address] Mathews, who is aware and will dialyze patient tonight. 08/06/18 16:[address] Gomez, who is aware and states patient can be discharged home after dialysis if patient does not experience any diarrhea. Called dialysis and patient was still getting dialysis, but had no episodes of diarrhea. Patient will be discharged as recommended by Dr. Gomez. 08/06/18 20:43 - RAD Interpretation Deer Farmer: Radiologist - EKG Interpretation Interpreted by ED Physician: Yes Type: 12 lead EKG - Scribe Statement The provider has reviewed the documentation as recorded by the Scribe Alisha Ryan. All medical record entries made by the Scribe were at my direction and personally dictated by me. I have reviewed the chart and agree that the record accurately reflects my personal performance of the history, physical exam, medical decision making, and the department course for this patient. I have also personally directed, reviewed, and agree with the discharge instructions and disposition. Disposition/Present on Arrival - Present on Arrival Any Indicators Present on Arrival: No History of DVT/PE: No History of Uncontrolled Diabetes: No Urinary Catheter: No History of Decub. Ulcer: No History Surgical Site Infection Following: None - Disposition Have Diagnosis and Disposition been Completed?: Yes Diagnosis: Abdominal pain, Diarrhea, ESRD needing dialysis Disposition: HOME/ ROUTINE Disposition Time: 21:00 Patient Plan: Discharge Patient Problems: Current Active Problems Problem Status Onset Abdominal pain Acute Diarrhea Acute ESRD needing dialysis Acute Condition: STABLE Discharge Instructions (ExitCare): Diarrhea in Adolescents and Adults, Acute Abdomen (Belly Pain), End Stage Kidney Disease (DC) Additional Instructions: MARTINEZ COSTELLO, thank you for letting us take care of you today. Your provider was Delfina Nino MD and you were treated for ABD PAIN. The emergency medical care you received today was directed at your acute symptoms. If you were prescribed any medication, please fill it and take as directed. It may take several days for your symptoms to resolve. Return to the Emergency Department if your symptoms worsen, do not improve, or if you have any other problems. Please contact your doctor in 1-2 days for a follow up appointment. Bring any paperwork you were given at discharge with you along with any medications you are taking to your follow up visit. Our treatment cannot replace ongoing medical care by a primary care provider outside of the emergency department. Thank you for allowing the [facility] team to be part of your care today. Referrals: Shawn Gomez MD [Primary Care Provider] - Follow up with primary Forms: [employer] ([place]adorean)
[2018-08-06 12:26] LABS: BASO # 0.03 K/mm3 (0.0-2.0); BASO % 0.7 % (0.0-3.0); EOS # 0.1 (0.0-0.7); EOS % 2.4 % (1.5-5.0); GRAN # 2.82 (1.4-6.5); GRAN % 68.1 % (50.0-68.0); HEMOGLOBIN 10.3 g/dL (12.0-16.0); LYMPH % 23.2 % (22.0-35.0); MEAN CELL VOLUME 85.1 fl (80.0-105.0); MEAN CORPUSCULAR HGB CONC 30.6 g/dl (31.0-37.0); MEAN PLATELET VOLUME 9.4 fl (7.0-11.0); MONO # 0.2 (0.1-0.6); MONO % 5.6 % (1.0-6.0); RBC 3.96 10^6/uL (3.5-6.1); RED CELL DISTRIBUTION WIDTH 18.9 % (11.5-14.5); WHITE BLOOD COUNT 4.1 10^3/uL (4.5-11.0)
[2018-08-06 12:39] LABS: ALB/GLOB RATIO 1.4 (1.1-1.8); CALCIUM 9.7 mg/dL (8.4-10.5)
[2018-08-06 12:48] LABS: TROPONIN I 0.1 ng/mL
--- NOTE | 2018-08-06 12:54 | RAD ---
Date of service: 08/06/2018 HISTORY: abd pain COMPARISON: 07/06/2018 FINDINGS: LUNGS: No active pulmonary disease. PLEURA: No significant pleural effusion identified, no pneumothorax apparent. CARDIOVASCULAR: Minimal aortic calcification Moderate cardiomegaly no pulmonary vascular congestion. OSSEOUS STRUCTURES: No significant abnormalities. VISUALIZED UPPER ABDOMEN: Normal. OTHER FINDINGS: None. IMPRESSION: No active disease.
--- NOTE | 2018-08-06 16:56 | CARD ---
APPROVED REPORT Date of service: 08/06/2018 EKG Measurement Heart [id number] <Conclusion> Normal sinus rhythm Possible Left atrial enlargement Left axis deviation Left ventricular hypertrophy ST & T wave abnormality, Posibly LVH with strain pattern. Prolonged QT Abnormal ECG
[2018-08-07 00:42] VITALS: BP 138/72; PULSE 87; RESP 17; TEMP 98.1; O2SAT 98
== END 2018-08-06 23:59 | disposition home or self-care (01) ==
LOC: ED 11:35
DX: I12.0 Hypertensive chronic kidney disease with stage 5 chronic kidney disease or end stage renal disease (principal); N18.6 End stage renal disease; Z99.2 Dependence on renal dialysis; I50.9 Heart failure, unspecified; R19.7 Diarrhea, unspecified; R10.9 Unspecified abdominal pain; E03.9 Hypothyroidism, unspecified
CPT/HCPCS: 71045; 80053; 82550; 83615; 83690; 83735; 84484; 85025; 93005; 96374; 96375; 99284; G0257; J2405

== ENCOUNTER 2018-09-06 11:25 | Emergency (ER) | payer MEDICARE, BC ==
[2018-09-06 11:26] VITALS: PULSE 79; BMI 21.4
[2018-09-06 12:19] LABS: BASO # 0.03 K/mm3 (0.0-2.0); BASO % 0.6 % (0.0-3.0); EOS % 0.4 % (1.5-5.0); HEMOGLOBIN 12.4 g/dL (12.0-16.0); LYMPH % 18.3 % (22.0-35.0); MEAN CELL VOLUME 81.5 fl (80.0-105.0); MEAN CORPUSCULAR HEMOGLOBIN 25.2 pg (25.0-35.0); MEAN CORPUSCULAR HGB CONC 30.9 g/dl (31.0-37.0); MEAN PLATELET VOLUME 10.4 fl (7.0-11.0); MONO # 0.4 (0.1-0.6); MONO % 8.2 % (1.0-6.0); RBC 4.92 10^6/uL (3.5-6.1); RED CELL DISTRIBUTION WIDTH 18.2 % (11.5-14.5); WHITE BLOOD COUNT 5.2 10^3/uL (4.5-11.0)
[2018-09-06 12:28] LABS: ALB/GLOB RATIO 1.3 (1.1-1.8); ALBUMIN 4.2 g/dL (3.0-4.8); ALT/SGPT 17 U/L (7-56); AST/SGOT 23 U/L (14-36); BLOOD UREA NITROGEN 30 mg/dL (7-21); CALCIUM 10.5 mg/dL (8.4-10.5); GFR NON-AFRICAN AMERICAN 7
--- NOTE | 2018-09-06 12:28 | ED PDOC ---
Arrival/HPI - General Chief Complaint: GI Problem Time Seen by Provider: 09/06/18 11:28 Historian: Patient - History of Present Illness Narrative History of Present Illness (Text): 09/06/18 11:43 Patient is a 58 year old female, with past medical history of COPD, CHF, hypertension, left AV shunt, ESRD on hemodialysis (//Mon), chronic anemia, and chronic pancreatitis, presents to the ED complaining of abdominal pain, nausea, vomiting and diarrhea since few days. Patient informs similar symptoms last week consistent with stomach virus. Patient denies any recent sick contact or any recent travel. Patient denies any recent antibiotics use. Patient denies any other associated somatic complaints. Reports that she does not frequently make urine. Patient denies any fevers, chills, headache, dizziness, chest pain, shortness of breath, dyspnea on exertion, cough, dysuria, back pain, neck pain, or any other complaints. 09/06/18 13:33 Time/Duration: < week Symptom Onset: Gradual Symptom Course: Unchanged Activities at Onset: Light Context: Home Past Medical History - Provider Review Nursing Documentation Reviewed: Yes - Past History Past History: Non-Contributing - Infectious Disease Hx of Infectious Diseases: None - Tetanus Immunization Tetanus Immunization: Up to Date - Cardiac Hx Cardiac Disorders: Yes - Pulmonary Hx Chronic Obstructive Pulmonary Disease (COPD): Yes - Neurological Hx Neurological Disorder: Yes - HEENT Hx HEENT Disorder: Yes Hx Blind: Yes (partial, left eye) Hx Cataracts: ([place]) Hx Deafness: Yes - Renal Hx Renal Failure: Yes - Endocrine/Metabolic Hx Hypothyroidism: Yes - Hematological/Oncological Hx Blood Disorders: Yes Hx Anemia: Yes - Integumentary Hx Dermatological Disorder: Yes (LEFT UPPER ARM SHUNT) Other/Comment: CALCIPHYLAXIS-DRY ROUND RASH ALL OVER HER BODY,ARMS,LEG. BILATERAL DISCOLORED DARK BROWN SKIN.TIGHT. - Musculoskeletal/Rheumatological Hx Falls: Yes (Recent left knee fx) - Gastrointestinal Hx Gastrointestinal Disorders: Yes (GI BLEED,SBO,APPENDICITIS,INGRAM'S ESOPHAGUS) - Genitourinary/Gynecological Hx Genitourinary Disorders: Yes ([place]) - Psychiatric Hx Anxiety: No Hx Bipolar Disorder: No Hx Depression: No Hx Post Traumatic Stress Disorder: No Hx Schizophrenia: No Hx Substance Use: No - Surgical History Hx Appendectomy: No Hx Cholecystectomy: Yes Hx Coronary Stent: No - Anesthesia Hx Anesthesia: Yes Hx Anesthesia Reactions: No Hx Malignant Hyperthermia: No - Suicidal Assessment Feels Threatened In Home Enviroment: No Family/Social History - Physician Review Nursing Documentation Reviewed: Yes Family/Social History: No Known Family HX Smoking Status: Current Some Days Smoker Hx Alcohol Use: No Hx Substance Use: No Hx Substance Use Treatment: No Allergies/Home Meds Allergies/Adverse Reactions: Allergies aspirin Allergy (Severe, Verified 07/11/18 00:57) ANAPHYLAXIS ciprofloxacin Allergy (Severe, Verified 07/11/18 00:57) ANAPHYLAXIS [place] [employer]ivatives Allergy (Severe, Verified 07/11/18 00:57) ANAPHYLAXIS enalapril Allergy (Severe, Verified 07/11/18 00:57) HIVES heparin Allergy (Severe, Verified 07/11/18 00:57) ANAPHYLAXIS latex Allergy (Severe, Verified 07/11/18 00:57) ANAPHYLAXIS Penicillins Allergy (Severe, Verified 07/11/18 00:57) ANAPHYLAXIS Sulfa (Sulfonamide Antibiotics) Allergy (Severe, Verified 07/11/18 00:57) ANAPHYLAXIS levothyroxine sodium [From Levoxyl] Allergy (Intermediate, Verified 07/11/18 00:57) RASH acetaminophen Allergy (Mild, Verified 07/11/18 00:57) RASH codeine Allergy (Mild, Verified 07/11/18 00:57) RASH enoxaparin Allergy (Mild, Verified 07/11/18 00:57) RASH iodine Allergy (Mild, Verified 07/11/18 00:57) RASH influenza virus vaccine, specific Allergy (Verified 07/11/18 00:57) hives Home Medications: Home Meds Medication Instructions Recorded Confirmed RX: Sevelamer [Renagel] 800 mg PO DAILY 10/10/17 07/11/18 RX: Albuterol Sulfate [Proair Hfa] 200 puff IH QID 07/04/18 07/11/18 RX: Lisinopril [Zestril] 2.5 mg PO DAILY 07/04/18 07/11/18 RX: Rosuvastatin Calcium [Crestor] 10 mg PO DAILY 07/04/18 07/11/18 Review of Systems - Review of Systems Constitutional: absent: Fevers Respiratory: absent: SOB, Cough Cardiovascular: absent: Chest Pain, HERBERT Gastrointestinal: Abdominal Pain, Diarrhea, Nausea, Vomiting Genitourinary Female: absent: Dysuria Musculoskeletal: absent: Back Pain, Neck Pain Skin: absent: Rash Neurological: absent: Headache, Dizziness Psychiatric: absent: Anxiety Physical Exam Vital Signs Reviewed: Yes Vital Signs Temp Pulse Resp BP Pulse Ox 09/06/18 11:36 97.9 F 105 H 18 152/85 H 100 Temperature: Afebrile Blood Pressure: Normal Pulse: Tachycardic Respiratory Rate: Normal Appearance: Positive for: Well-Appearing, Non-Toxic, Comfortable Pain Distress: None Mental Status: Positive for: Alert and Oriented X 3 - Systems Exam Head: Present: Atraumatic, Normocephalic Pupils: Present: PERRL Extroacular Muscles: Present: EOMI Conjunctiva: Present: Normal Mouth: Present: Moist Mucous Membranes Respiratory/Chest: Present: Clear to Auscultation, Good Air Exchange. No: Respiratory Distress, Accessory Muscle Use Cardiovascular: Present: Regular Rate and Rhythm, Normal S1, S2. No: Murmurs Abdomen: Present: Tenderness (generalized abdominal tenderness). No: Distention, Peritoneal Signs Back: Present: Normal Inspection Upper Extremity: Present: Normal Inspection, Other (Dialysis fistula noted to left arm). No: Cyanosis, Edema Lower Extremity: Present: Normal Inspection. No: Edema Neurological: Present: GCS=15, CN II-XII Intact, Speech Normal Skin: Present: Warm, Dry, Normal Color. No: Rashes Psychiatric: Present: Alert, Oriented x 3, Normal Insight, Normal Concentration Medical Decision Making ED Course and Treatment: 09/06/18 11:43 Impression: 58 year old female presents to the ED for evaluation of abdominal pain, nausea, vomiting and diarrhea. Plan: -- Ct of Abdomen/Pelvis -- EKG -- Labs -- Zofran -- Urinalysis -- Reassess and disposition Prior Visits: Notes and results from previous visits were reviewed. Progress Notes: 09/06/18 11:43 Patient is requesting Dilaudid for pain. Patient was made aware of hospital protocol and informed Dilaudid is not provided here. Patient is aware, however states she is allergic to all other pain medications. 09/06/18 12:50 EKG shows sinus tachycardia at 102bpm with LVH 09/06/18 13:21 CT of abdomen reviewed by radiologist shows: FINDINGS: LOWER THORAX: Marked cardiomegaly reiterated although prior bilateral pleural effusions appear resolved. Ground-glass opacity is scattered in throughout the bilateral bases and the airways are incongruous relative to local vascular channels suspicious for pulmonary vascular congestion. LIVER: Trace perihepatic ascites identified. Hepatomegaly identified without definitive mass identified noted. Lack of intravenous contrast limits evaluation of hepatic parenchyma nevertheless. Periportal edema is suspected. GALLBLADDER AND BILE DUCTS: Prior cholecystectomy evident once again. PANCREAS: Grossly nonfocal appearing. SPLEEN: Unremarkable. ADRENALS: Unremarkable. No mass. KIDNEYS AND URETERS: A bilaterally atrophic kidneys are identified without definitive hydronephrosis or gross mass associated. Small hyperdense cyst is felt to be present related to the lower pole left kidney. VASCULATURE: 1.6 cm splenic artery aneurysm identified at the splenic hilum. Nonaneurysmal abdominal aortic calcific atherosclerotic changes are identified. BOWEL: Stomach is partially collapsed. The bowel does not appear obstructed. Majority of bowel appears collapsed in general with limited gas distending some upper bowel segments. Limited rectal fecal impaction. APPENDIX: Unremarkable. Normal appendix. PERITONEUM: The fat is injected throughout the mesentery in the abdomen as well as retroperitoneum. Extra abdominal and intrapelvic fat are also injected with these findings suspicious for anasarca. LYMPH NODES: Unremarkable. No enlarged lymph nodes. BLADDER: The bladder is largely artifacted by right total replacement hardware, likely largely collapsed. REPRODUCTIVE: Prior hysterectomy question. BONES: Right shoulder replacement hardware in situ. Gross degenerative joint disease left hip joint. OTHER FINDINGS: None. IMPRESSION: Limited examination due lack of intravenous and oral contrast administration. Anasarca type hazy density seen throughout the intra and extra abdominal fat with mild perihepatic ascites evident. Anasarca pattern has improved in the interval nevertheless. Etiology of ascites otherwise unclear. No bowel obstruction or free intra peritoneal gas collection. Limited rectal fecal impaction noted. Prior cholecystectomy evident. Hepatomegaly again evident. Small splenic artery aneurysm reiterated. Markedly atrophic bilateral kidneys reiterated. 09/06/18 13:27 On reevaluation patient is tolerating po. She reports that she is still having diarrhea. She was instructed on the importance of going to dialysis. She reported to me that she would not go to dialysis because of her diarrhea. She only had 2 episodes of bowel movement in emergency department and explained to patient that this is not a contraindication to dialysis. Explained that she could face life threatening difficulties/complications if she is not compliant with dialysis. She again requested dilaudid for pain and reports that this will help her diarrhea. - RAD Interpretation Radiology Orders: 09/06/18 11:43 ABD & PELVIS W/O PO OR IV CONT [CT] Stat [employer]: Radiologist - Medication Orders Current Medication Orders: Discontinued Medications Ondansetron HCl (Zofran Inj) 4 mg IVP STAT STA Stop: 09/06/18 11:45 Last Admin: 09/06/18 12:11 Dose: 4 mg IVP Administration Document 09/06/18 12:11 LING (Rec: 09/06/18 12:11 LING [id number]) Charges for Administration # of IVP Administrations 1 - Scribe Statement The provider has reviewed the documentation as recorded by the Scribe Alisha Ryan. All medical record entries made by the Scribe were at my direction and personally dictated by me. I have reviewed the chart and agree that the record accurately reflects my personal performance of the history, physical exam, medical decision making, and the department course for this patient. I have also personally directed, reviewed, and agree with the discharge instructions and disposition. Disposition/Present on Arrival - Present on Arrival Any Indicators Present on Arrival: No History of DVT/PE: No History of Uncontrolled Diabetes: No Urinary Catheter: No History of Decub. Ulcer: No History Surgical Site Infection Following: None - Disposition Have Diagnosis and Disposition been Completed?: Yes Diagnosis: Splenic artery aneurysm, Pulmonary vascular congestion, End stage renal failure on dialysis, Ascites, Atherosclerosis of abdominal aorta, Fecal impaction, Anasarca, Gastroenteritis Disposition: HOME/ ROUTINE Disposition Time: 13:24 Patient Plan: Discharge Condition: GOOD Additional Instructions: Follow-up with PMD within 2 days. Go directly to dialysis. Return to emergency department if condition worsens. Forms: [employer] (Romanian)
[2018-09-06 12:37] LABS: LIPASE < 10 U/L (23-300)
--- NOTE | 2018-09-06 13:21 | CT ---
Date of service: 09/06/2018 PROCEDURE: CT Abdomen and Pelvis without intravenous contrast HISTORY: R flank cramping pain COMPARISON: None. TECHNIQUE: Helical CT of the abdomen and pelvis was performed without oral or intravenous contrast as per referring physician request. Coronal and sagittal reformats were generated.. Contrast dose: None Radiation dose: Total exam DLP = 209.82 mGy-cm. This CT exam was performed using one or more of the following dose reduction techniques: Automated exposure control, adjustment of the mA and/or kV according to patient size, and/or use of iterative reconstruction technique. FINDINGS: LOWER THORAX: Marked cardiomegaly reiterated although prior bilateral pleural effusions appear resolved. Ground-glass opacity is scattered in throughout the bilateral bases and the airways are incongruous relative to local vascular channels suspicious for pulmonary vascular congestion. LIVER: Trace perihepatic ascites identified. Hepatomegaly identified without definitive mass identified noted. Lack of intravenous contrast limits evaluation of hepatic parenchyma nevertheless. Periportal edema is suspected. GALLBLADDER AND BILE DUCTS: Prior cholecystectomy evident once again. PANCREAS: Grossly nonfocal appearing. SPLEEN: Unremarkable. ADRENALS: Unremarkable. No mass. KIDNEYS AND URETERS: A bilaterally atrophic kidneys are identified without definitive hydronephrosis or gross mass associated. Small hyperdense cyst is felt to be present related to the lower pole left kidney. VASCULATURE: 1.6 cm splenic artery aneurysm identified at the splenic hilum. Nonaneurysmal abdominal aortic calcific atherosclerotic changes are identified. BOWEL: Stomach is partially collapsed. The bowel does not appear obstructed. Majority of bowel appears collapsed in general with limited gas distending some upper bowel segments. Limited rectal fecal impaction. APPENDIX: Unremarkable. Normal appendix. PERITONEUM: The fat is injected throughout the mesentery in the abdomen as well as retroperitoneum. Extra abdominal and intrapelvic fat are also injected with these findings suspicious for anasarca. LYMPH NODES: Unremarkable. No enlarged lymph nodes. BLADDER: The bladder is largely artifacted by right total replacement hardware, likely largely collapsed. REPRODUCTIVE: Prior hysterectomy question. BONES: Right shoulder replacement hardware in situ. Gross degenerative joint disease left hip joint. OTHER FINDINGS: None. IMPRESSION: Limited examination due lack of intravenous and oral contrast administration. Anasarca type hazy density seen throughout the intra and extra abdominal fat with mild perihepatic ascites evident. Anasarca pattern has improved in the interval nevertheless. Etiology of ascites otherwise unclear. No bowel obstruction or free intra peritoneal gas collection. Limited rectal fecal impaction noted. Prior cholecystectomy evident. Hepatomegaly again evident. Small splenic artery aneurysm reiterated. Markedly atrophic bilateral kidneys reiterated.
[2018-09-06 16:16] VITALS: O2SAT 97
[2018-09-06 16:17] VITALS: BP 148/82; PULSE 96; RESP 20; TEMP 98.2
--- NOTE | 2018-09-06 16:25 | CARD ---
APPROVED REPORT Date of service: 09/06/2018 EKG Measurement Heart [id number] [id number] <Conclusion> Sinus tachycardia Left axis deviation Left ventricular hypertrophy with repolarization abnormality Abnormal ECG
== END 2018-09-06 16:19 | disposition home or self-care (01) ==
LOC: ED 11:25
DX: I72.8 Aneurysm of other specified arteries (principal); I70.0 Atherosclerosis of aorta; R60.1 Generalized edema; K52.9 Noninfective gastroenteritis and colitis, unspecified; K56.41 Fecal impaction; I12.0 Hypertensive chronic kidney disease with stage 5 chronic kidney disease or end stage renal disease; N18.6 End stage renal disease; Z99.2 Dependence on renal dialysis; R09.89 Other specified symptoms and signs involving the circulatory and respiratory systems; R18.8 Other ascites; I50.9 Heart failure, unspecified; J44.9 Chronic obstructive pulmonary disease, unspecified; E03.9 Hypothyroidism, unspecified
CPT/HCPCS: 74176; 80053; 83690; 85025; 93005; 96374; 99284; J2405

== ENCOUNTER 2018-09-13 14:41 | Outpatient (CLI) | payer MEDICARE, BC | END 2018-09-13 14:42 | disposition home or self-care (01) | LOC: RAD 14:41 ==

== ENCOUNTER 2018-09-18 11:25 | Inpatient (IN) | payer MEDICARE, BC ==
[2018-09-18 11:25] VITALS: PULSE 79
--- NOTE | 2018-09-18 13:07 | ED PDOC ---
Arrival/HPI - General Historian: Patient - History of Present Illness Narrative History of Present Illness (Text): 09/18/18 12:56 58 y/o female with PMH of HTN, CHF, COPD, ESRD on HD presents from home to the ED c/o diffuse abdominal pain and diarrhea x2 days. Pain is sharp/colic, intermittent, lasts for few seconds, no alleviating or worsening factors. Diarrhea is watery, non bloody, goes to bathroom every one hour. Her symptoms associated with nausea, poor oral intake, generalized muscle weakness and fatigue. She also reports one day h/o non productive cough and chest congestion She denied chest pain, fever, SOB, vomiting, hematemesis, hematochezia, focal neuroligical sx. She denied eating unusual food, recent travel or sick contacts. She missed her dialysis today, last dialysis was 09/15/18 Time/Duration: < week Symptom Onset: Gradual Symptom Course: Worsening Quality: Cramping Severity Level: 8 Context: Home <Wyatt Rayo - Last Filed: 09/18/18 13:22> <Nitesh Lara - Last Filed: 09/18/18 21:43> - General Chief Complaint: Abdominal Pain Time Seen by Provider: 09/18/18 11:37 Past Medical History - Past History Past History: Non-Contributing - Infectious Disease Hx of Infectious Diseases: None - Tetanus Immunization Tetanus Immunization: Up to Date - Cardiac Hx Cardiac Disorders: Yes Hx Hypertension: Yes - Pulmonary Hx Chronic Obstructive Pulmonary Disease (COPD): Yes - Neurological Hx Neurological Disorder: Yes - HEENT Hx HEENT Disorder: Yes Hx Blind: Yes (partial, left eye) Hx Cataracts: ([place]) Hx Deafness: Yes - Renal Hx Dialysis: Yes Type of Dialysis Access: left upper arm shunt Date of Last Dialysis Treatment: 09/15/18 Hx Renal Failure: Yes - Endocrine/Metabolic Hx Hypothyroidism: Yes - Hematological/Oncological Hx Blood Disorders: Yes Hx Anemia: Yes - Integumentary Hx Dermatological Disorder: Yes (LEFT UPPER ARM SHUNT) Other/Comment: CALCIPHYLAXIS-DRY ROUND RASH ALL OVER HER BODY,ARMS,LEG. BILATERAL DISCOLORED DARK BROWN SKIN.TIGHT. - Musculoskeletal/Rheumatological Hx Falls: Yes (Recent left knee fx) - Gastrointestinal Hx Gastrointestinal Disorders: Yes (GI BLEED,SBO,APPENDICITIS,INGRAM'S ESOPHAGUS) - Genitourinary/Gynecological Hx Genitourinary Disorders: Yes ([place]) - Psychiatric Hx Anxiety: No Hx Bipolar Disorder: No Hx Depression: No Hx Post Traumatic Stress Disorder: No Hx Schizophrenia: No Hx Substance Use: No - Surgical History Hx Appendectomy: No Hx Cholecystectomy: Yes Hx Coronary Stent: No - Anesthesia Hx Anesthesia: Yes Hx Anesthesia Reactions: No Hx Malignant Hyperthermia: No - Suicidal Assessment Feels Threatened In Home Enviroment: No <Wyatt Rayo - Last Filed: 09/18/18 13:22> Family/Social History Smoking Status: Current Some Days Smoker Hx Alcohol Use: No Hx Substance Use: No Hx Substance Use Treatment: No <Wyatt Rayo - Last Filed: 09/18/18 13:22> Family/Social History: No Known Family HX <Nitesh Lara - Last Filed: 09/18/18 21:43> Allergies/Home Meds <Wyatt Rayo - Last Filed: 09/18/18 13:22> <Nitesh Lara - Last Filed: 09/18/18 21:43> Allergies/Adverse Reactions: Allergies aspirin Allergy (Severe, Verified 09/18/18 20:27) ANAPHYLAXIS ciprofloxacin Allergy (Severe, Verified 09/18/18 20:27) ANAPHYLAXIS [place] And Derivatives Allergy (Severe, Verified 09/18/18 20:27) ANAPHYLAXIS enalapril Allergy (Severe, Verified 09/18/18 20:27) HIVES heparin Allergy (Severe, Verified 09/18/18 20:27) ANAPHYLAXIS latex Allergy (Severe, Verified 09/18/18 20:27) ANAPHYLAXIS Penicillins Allergy (Severe, Verified 09/18/18 20:27) ANAPHYLAXIS Sulfa (Sulfonamide Antibiotics) Allergy (Severe, Verified 09/18/18 20:27) ANAPHYLAXIS levothyroxine sodium [From Levoxyl] Allergy (Intermediate, Verified 09/18/18 20:27) RASH acetaminophen Allergy (Mild, Verified 09/18/18 20:27) RASH codeine Allergy (Mild, Verified 09/18/18 20:27) RASH enoxaparin Allergy (Mild, Verified 09/18/18 20:27) RASH iodine Allergy (Mild, Verified 09/18/18 20:27) RASH influenza virus vaccine, specific Allergy (Verified 09/18/18 20:27) hives Home Medications: Home Meds Medication Instructions Recorded Confirmed RX: Sevelamer [Renagel] 800 mg PO DAILY 10/10/17 07/11/18 RX: Albuterol Sulfate [Proair Hfa] 200 puff IH QID 07/04/18 07/11/18 RX: Lisinopril [Zestril] 2.5 mg PO DAILY 07/04/18 07/11/18 RX: Rosuvastatin Calcium [Crestor] 10 mg PO DAILY 07/04/18 07/11/18 Review of Systems - Review of Systems Constitutional: Fatigue Eyes: absent: Vision Changes Respiratory: Cough, Other (chest congestion). absent: SOB, Wheezing Cardiovascular: absent: Chest Pain, Palpitations, Edema Gastrointestinal: Abdominal Pain, Diarrhea (watery), Nausea. absent: Vomiting Musculoskeletal: Joint Swelling (left knee). absent: Arthralgias Skin: absent: Rash, Pruritis Endocrine: absent: Diaphoresis, Polyuria Hemo/Lymphatic: absent: Adenopathy, Easy Bleeding <NashWyatt meredith - Last Filed: 09/18/18 13:22> Physical Exam Vital Signs Reviewed: Yes Vital Signs Temp Pulse Resp BP Pulse Ox 09/18/18 11:43 97.4 F L 99 H 16 151/80 H 98 Temperature: Afebrile Blood Pressure: Normal Pulse: Tachycardic Respiratory Rate: Normal Appearance: Positive for: Ill-Appearing Pain Distress: Moderate Mental Status: Positive for: Alert and Oriented X 3 - Systems Exam Head: Present: Atraumatic, Normocephalic Pupils: Present: PERRL Extroacular Muscles: Present: EOMI Conjunctiva: Present: Normal Ears: Present: Normal Mouth: Present: Dry Pharnyx: Present: Normal Nose (External): Present: Atraumatic Nose (Internal): Present: Normal Inspection Neck: Present: Normal Range of Motion, JVD Respiratory/Chest: Present: Clear to Auscultation. No: Good Air Exchange, Respiratory Distress, Accessory Muscle Use, Wheezes, Retracting, Rhonchi Cardiovascular: Present: Normal S1, S2 Abdomen: Present: Tenderness (mild diffuse ). No: Peritoneal Signs, Guarding, McBurney's Point Tender Breast/Axillary: No: Axillary Lymphad Back: Present: Normal Inspection Upper Extremity: Present: Normal Inspection. No: Cyanosis, Edema Lower Extremity: Present: Other (left knee tender to palpate. limited ROM. B/L LE skin changes) Neurological: Present: GCS=15, CN II-XII Intact, Speech Normal Skin: Present: Pale Psychiatric: Present: Alert, Oriented x 3 <Wyatt Rayo - Last Filed: 09/18/18 13:22> Vital Signs Temp Pulse Resp BP Pulse Ox 09/18/18 11:43 97.4 F L 99 H 16 151/80 H 98 <Nitesh Lara - Last Filed: 09/18/18 21:43> Medical Decision Making - EKG Interpretation Interpreted by ED Physician: Yes Type: 12 lead EKG <Wyatt Rayo - Last Filed: 09/18/18 13:22> ED Course and Treatment: 09/18/18 14:11 58 year old female presents to the ED for evaluation of abdominal pain and diarrhea. In agreement with resident note which contains more details about the patient. Patient seen and evaluated with resident. Came up with plan and treatment together. 09/18/18 15:[address] breen, accepts admission, patient has a hx of c. difficile, would like to empirically tx for c.diff with oral vanco and iv flagyl. consult to dr. gomez for GI. - Lab Interpretations Lab Results: pO2 36 mm/Hg (30-55) 09/18/18 13:00 VBG pH 7.35 (7.32-7.43) 09/18/18 13:00 VBG pCO2 40.0 (40-60) 09/18/18 13:00 VBG HCO3 22.1 mmol/l (21-28) 09/18/18 13:00 VBG Total CO2 23.3 mmol.L (22-28) 09/18/18 13:00 VBG O2 Sat (Calc) 73.3 % (40-65) H 09/18/18 13:00 VBG Base Excess -3.3 mmol/L (0.0-2.0) L 09/18/18 13:00 VBG Potassium 5.1 mmol/L (3.6-5.2) 09/18/18 13:00 Sodium 131.0 mmol/L (132-148) L 09/18/18 13:00 Chloride 93.0 mmol/L (98-107) L 09/18/18 13:00 Glucose 60 mg/dl (65-105) L 09/18/18 13:00 Lactate 4.4 mmol/L (0.7-2.1) H* 09/18/18 13:00 FiO2 21.0 % 09/18/18 13:00 Crit Value Called To daniel Lara md 09/18/18 13:00 Crit Value Called By José Antonio blueprint blocker 09/18/18 13:00 Blood Gas Notified Time 1313 09/18/18 13:00 Total Bilirubin 3.5 mg/dL (0.2-1.3) H 09/18/18 12:15 AST 37 U/L (14-36) H D 09/18/18 12:15 ALT 8 U/L (7-56) 09/18/18 12:15 Alkaline Phosphatase 438 U/L (38-126) H 09/18/18 12:15 Total Protein 7.1 g/dL (5.8-8.3) 09/18/18 12:15 Albumin 4.0 g/dL (3.0-4.8) 09/18/18 12:15 Globulin 3.0 gm/dL 09/18/18 12:15 Albumin/Globulin Ratio 1.3 (1.1-1.8) 09/18/18 12:15 - RAD Interpretation Radiology Orders: 09/18/18 13:20 CXR [CHEST TWO VIEWS (PA/LAT)] [RAD] Stat - EKG Interpretation EKG Interpretation (Text): 09/18/18 14:24 ekg my read: sinus tach at 104 bpm, nonspecific intraventricular conduction delay, lvh with early repol, lateral flipped t waves <Nitesh Lara - Last Filed: 09/18/18 21:43> - PA / TELE TECH / Resident Statement RONNELL has reviewed & agrees with the documentation as recorded. RONNELL has examined the patient and agrees with the treatment plan. <Nitesh Lara - Last Filed: 09/18/18 21:43> Disposition/Present on Arrival - Present on Arrival Any Indicators Present on Arrival: No History of DVT/PE: No History of Uncontrolled Diabetes: No Urinary Catheter: No History of Decub. Ulcer: No History Surgical Site Infection Following: None <Wyatt Rayo - Last Filed: 09/18/18 13:22> - Disposition Have Diagnosis and Disposition been Completed?: Yes Disposition Time: 15:24 Patient Plan: Admission <Nitesh Lara - Last Filed: 09/18/18 21:43> - Disposition Diagnosis: Acute diarrhea Disposition: HOSPITALIZED Patient Problems: Current Active Problems Problem Status Onset Acute diarrhea Acute Condition: GUARDED
[2018-09-18 13:14] LABS: VENOUS BLOOD GAS BASE EXCESS -3.3 mmol/L (0.0-2.0); VENOUS BLOOD GAS PO2 36 mm/Hg (30-55); VENOUS BLOOD PH 7.35 (7.32-7.43)
[2018-09-18 13:29] LABS: BASO # 0.02 K/mm3 (0.0-2.0); BASO % 0.3 % (0.0-3.0); EOS % 0.3 % (1.5-5.0); HEMOGLOBIN 12.8 g/dL (12.0-16.0); LYMPH # 0.9 (1.2-3.4); LYMPH % 12.1 % (22.0-35.0); MEAN CELL VOLUME 80.1 fl (80.0-105.0); MEAN CORPUSCULAR HGB CONC 31.1 g/dl (31.0-37.0); MEAN PLATELET VOLUME 10.3 fl (7.0-11.0); MONO # 0.5 (0.1-0.6); MONO % 6.1 % (1.0-6.0); RBC 5.13 10^6/uL (3.5-6.1); RED CELL DISTRIBUTION WIDTH 18.8 % (11.5-14.5); WHITE BLOOD COUNT 7.4 10^3/uL (4.5-11.0)
[2018-09-18 13:35] LABS: ALB/GLOB RATIO 1.3 (1.1-1.8); CALCIUM 10.3 mg/dL (8.4-10.5)
--- NOTE | 2018-09-18 15:14 | RAD ---
Date of service: 09/18/2018 HISTORY: cough, pneumonia COMPARISON: 08/06/2018 TECHNIQUE: Chest PA and lateral FINDINGS: LUNGS: No active pulmonary disease. PLEURA: No significant pleural effusion identified. No pneumothorax apparent. CARDIOVASCULAR: There is atherosclerotic Calcification of the thoracic aortic arch. No congestive change. Left subclavian/axillary vascular stent noted. OSSEOUS STRUCTURES: No significant abnormalities. VISUALIZED UPPER ABDOMEN: Normal. OTHER FINDINGS: None. IMPRESSION: No active disease.
[2018-09-18] MEDS ORDERED: Vancomycin 25 MG/ML PO STA (15:25)
[2018-09-18] MEDS ORDERED: metroNIDAZOLE IV 500 mg/100 ml 500 MG/100 ML BAG IVPB STA (15:25)
[2018-09-18] MEDS ORDERED: Morphine 4 mg/ml ISec IVP STA (15:29)
[2018-09-18] MEDS ORDERED: HYDROmorphone 2 mg/ml ISec IVP PRN (17:11)
[2018-09-18] MEDS ORDERED: Dextrose 5%/0.45% NS 1,000 ML IV SCH (17:15)
[2018-09-18 17:53] LABS: VENOUS BLOOD GAS BASE EXCESS -3.6 mmol/L (0.0-2.0); VENOUS BLOOD GAS PO2 233 mm/Hg (30-55)
[2018-09-18] MEDS: metroNIDAZOLE IV 500 mg/100 ml 500 MG/100 ML BAG IVPB SCH ×2 (18:22→21:12)
[2018-09-18] MEDS: Vancomycin 25 MG/ML PO SCH (21:13)
[2018-09-18 21:43] LABS: VENOUS BLOOD GAS BASE EXCESS -2.9 mmol/L (0.0-2.0); VENOUS BLOOD GAS PO2 106 mm/Hg (30-55); VENOUS BLOOD PH 7.41 (7.32-7.43)
[2018-09-18 23:04] VITALS: BMI 20.2
--- NOTE | 2018-09-18 23:38 | HP ---
DATE OF EXAM: 09/18/2018 HISTORY OF PRESENT ILLNESS: The patient is a 58-year-old, who came to emergency room because of intractable diarrhea, complaining of generalized weakness along with abdominal pain for the last two days. history of nausea. Does complain of nausea with poor oral intake. Complain of generalized weakness and feeling tired and fatigued. The patient complain of cough and congestion. No history of chest pain. No history of hemoptysis. No hematemesis. No rectal bleeding. No fever or chills. The patient states that she missed her dialysis today and that was another reason to come to emergency room. PAST MEDICAL HISTORY: 1. Complicated including end-stage renal disease, on hemodialysis. 2. History of C. diff 3-4 years ago. 3. History of bilateral hip replacement and she had left hip replaced. The patient also fell and had left knee open reduction and internal fixation. 4. History of cardiac cirrhosis. 5. Pulmonary hypertension. 6. Chronic anemia. ALLERGIES: THE PATIENT HAS MULTIPLE ALLERGIES INCLUDING ASPIRIN, CIPRO, CITRUS DERIVATIVE, ENALAPRIL, HEPARIN, LATEX, PENICILLIN, SULFA, LEVOTHYROXINE, ACETAMINOPHEN, CODEINE, LOVENOX, IODINE, AND FLU VACCINE. MEDICATIONS AT HOME: She is on Renagel, Crestor, lisinopril, hydromorphone, and nebulizer treatment. SOCIAL HISTORY: She lives with her boyfriend and was a heavy smoker and still smokes. Denies alcohol use. PHYSICAL EXAMINATION: GENERAL: She is awake, alert, oriented, and able to communicate. VITAL SIGNS: She is afebrile, pulse 99, respirations 16, and blood pressure 158/73. HEART: S1 and S2 audible. LUNGS: Bilateral fair airflow. No rhonchi or crackle. ABDOMEN: Soft, diffuse tenderness, but no rebound or guarding. NEUROLOGIC: She is awake, alert, oriented, and communicative. LABORATORY DATA: WBC 7.5, hemoglobin 12, hematocrit 41, and platelet 119. Chemistry; sodium 134, potassium 5.1, chloride 92, CO2 of 26, BUN 56, creatinine 6.3, and blood sugar of 59. Flu test is negative. ASSESSMENT: 1. Intractable diarrhea, rule out Clostridium difficile. 2. Hypertension. 3. End-stage renal disease, on hemodialysis. 4. She had CT scan of the abdomen and pelvis done that shows haziness throughout intra and extraabdominal fat with mild perihepatic ascites, leading conclusion is ascites, but no bowel obstruction. 5. Chronic anemia. 6. Bilateral knee osteoarthritis. PLAN: We will start the patient on IV fluid, start her on p.o. vancomycin and IV Flagyl. GI consult by Dr. Rosado and Renal consult by Dr. Rose has been requested. Shawn Gomez MD
[2018-09-19] MEDS: HYDROmorphone 0.5 mg/0.5 ml ISec IVP PRN ×3 (02:35→15:36)
[2018-09-19] MEDS: metroNIDAZOLE IV 500 mg/100 ml 500 MG/100 ML BAG IVPB SCH (05:23)
--- NOTE | 2018-09-19 09:38 | CARD ---
APPROVED REPORT Date of service: 09/18/2018 EKG Measurement Heart [id number] <Conclusion> Sinus tachycardia Possible Left atrial enlargement Left axis deviation Left ventricular hypertrophy ST & T wave abnormality, consider lateral ischemia Abnormal ECG
[2018-09-19] MEDS: Vancomycin 25 MG/ML PO SCH (09:46)
--- NOTE | 2018-09-19 11:10 | CP.PCM.APN ---
Subjective - Date & Time of Evaluation Date of Evaluation: 09/19/18 Time of Evaluation: 09:30 - Subjective Subjective: Pt seen and examined at bedside. Denies diarrhea (last episode yesterday afternoon). C/O R upper quad abd pain, tender on palpation, but improved. Denies nausea or vomiting. Objective - Vital Signs/Intake and Output Vital Signs (last 24 hours): Temp Pulse Resp BP Pulse Ox 97.7 F 83 20 123/69 97 09/19/18 06:00 09/19/18 06:00 09/19/18 06:00 09/19/18 06:00 09/19/18 06:00 Intake and Output: 09/19/18 09/19/18 06:59 18:59 Intake Total 0 Balance 0 - Medications Medications: Current Medications Hydromorphone HCl (Dilaudid) 0.5 mg IVP Q4H PRN PRN Reason: Pain, moderate (4-7) Last Admin: 09/19/18 09:46 Dose: 0.5 mg Dextrose/Sodium Chloride (Dextrose 5%/0.45% Ns 1000 Ml) 1,000 mls @ 50 mls/hr IV .Q20H LEX Last Admin: 09/18/18 17:45 Dose: 50 mls/hr Metronidazole (Flagyl) 500 mg in 100 mls @ 100 mls/hr IVPB Q8 LEX; Protocol Last Admin: 09/19/18 05:23 Dose: 100 mls/hr Sevelamer HCl (Renagel) 800 mg PO DAILY LEX Last Admin: 09/19/18 09:46 Dose: 800 mg Vancomycin HCl (Vancocin 25 Mg/Ml (Oral Use)) 250 mg PO QID [facility]; Protocol Last Admin: 09/19/18 09:46 Dose: 250 mg - Labs Labs: 09/18/18 12:15 09/18/18 12:15 - Constitutional Appears: No Acute Distress - Head Exam Head Exam: ATRAUMATIC - Respiratory Exam Respiratory Exam: Clear to Ausculation Bilateral, NORMAL BREATHING PATTERN - Cardiovascular Exam Cardiovascular Exam: REGULAR RHYTHM, +S1, +S2 - GI/Abdominal Exam Additional comments: R upper quad pain, mild tenderness on palapation. - Rectal Exam Rectal Exam: Deferred - Extremities Exam Additional comments: L upper arm w/ avf - Neurological Exam Neurological Exam: Alert, Awake, Oriented x3 Assessment and Plan - Assessment and Plan (Free Text) Assessment: Pt is 58 y.o. female w/ pmhx of HTN, CHF, COPD, ESRD on HD T// who presented in ED c/o diffuse abdominal pain and diarrhea x2 days. She also c/o one day h/o non productive cough and chest congestion. Impressions Chest X-Ray 09/18/18 13:20 IMPRESSION: No active disease. Plan: CT A/P pending On Flagyl IV/Vanco PO GI and Renal on consult On Liquid diet Cdiff negative - d/w GI, dc Flagyl and Vanco, advance diet to full liquid Meds per MAR Will continue to follow
[2018-09-19] MEDS ORDERED: Iron Sucrose 100 mg/5 ml Inj IVP ONE (11:30)
[2018-09-19] MEDS ORDERED: Barium Sulfate Susp 2.1% w/v, 2.0% w/w 450 mL Bottle PO ONE (11:52)
--- NOTE | 2018-09-19 15:03 | CON ---
DATE OF CONSULTATION: 09/19/2018 REASON FOR CONSULTATION: Diarrhea, abdominal pain, nausea, vomiting, need for dialysis. HISTORY OF PRESENTING ILLNESS: A 58-year lady known to me from outpatient hemodialysis. The patient presented to the emergency room yesterday with complaints of 2-day history of severe diarrhea. She reports that she was moving her bowels every half an hour. Stools are very watery and loose. She also complains of nausea and vomiting. She denies any fever. She complains of right-sided lower abdominal pain. In the emergency room, she was found to be normotensive. Her initial blood work showed a hemoglobin of 12.8, BUN of 56, creatinine of 6.3, potassium was 5.1. She missed her dialysis treatment yesterday. PAST MEDICAL/SURGICAL HISTORY: History of C. diff, history of bilateral hip replacement, cardiac cirrhosis, pulmonary hypertension, anemia of chronic kidney disease, ESRD, hyperphosphatemia, secondary hyperparathyroidism. FAMILY HISTORY: Noncontributory. SOCIAL HISTORY: Smoker, no alcohol use, no IV drug abuse. ALLERGIES: ASPIRIN, CIPRO, ENALAPRIL, PENICILLIN, SULFA, SYNTHROID, TYLENOL, CODEINE, LOVENOX. MEDICATIONS AT HOME: Renagel, Crestor, lisinopril, hydromorphone, nebulizers. REVIEW OF SYSTEMS: All systems are reviewed, pertinent positives as mentioned in the history of presenting illness, rest unremarkable. PHYSICAL EXAMINATION: GENERAL: Middle-aged lady, lying in bed, in mild distress. VITAL SIGNS: Blood pressure 123/69, heart rate 83, respiratory rate 20, temperature 97.7. HEENT: Normocephalic, atraumatic, positive pallor, no icterus. NECK: Supple, no JVD. LUNGS: Bilateral equal entry, bilateral equal expansion. CARDIAC: S1 and S2, regular rate and rhythm, no murmur, no rub. ABDOMEN: Soft, nondistended, positive tenderness in the right lower quadrant, some guarding secondary to pain. EXTREMITIES: No lower extremities edema. LABORATORY DATA: WBC 7.4, hemoglobin 12.8, hematocrit 41, platelets 119. 134, potassium 5.1, chloride 92, CO2 of 21, BUN 56, creatinine 6.3, glucose 59, calcium 10.3, phosphorus 6.5, magnesium 2.2, albumin 3.5. C. diff negative. ASSESSMENT: 1. Profuse severe watery diarrhea, nausea, vomiting, and abdominal pain. 2. Elevated bilirubin. 3. Hypertension. 4. End-stage renal disease. 5. Hyperphosphatemia. 6. Mild hyperkalemia. PLAN: 1. The patient missed the dialysis treatment yesterday, we will do dialysis today. 2. ?GI evaluation. 3. Imodium p.r.n. Mansi Rose MD
--- NOTE | 2018-09-19 16:25 | PN ---
DATE: 09/19/2018 SUBJECTIVE: The patient is 58 years old, seen and examined. She states since she came, her diarrhea has resolved. She still has right upper quadrant discomfort, denies any chest pain, no shortness of breath. Does have scanty cough. PHYSICAL EXAMINATION: VITAL SIGNS: She is afebrile, pulse 83, respiration 20, blood pressure 123/69. LUNGS: Bilateral fair airflow. No rhonchi or crackles. HEART: S1 and S2 audible. ABDOMEN: Soft, some right upper quadrant discomfort, but no guarding. NEUROLOGICAL: She is awake, alert, oriented and communicative. LABORATORY DATA: C. diff is negative. ASSESSMENT AND PLAN: 1. Abdominal pain with diarrhea, stool for Clostridium difficile negative probably secondary to passive hepatic congestion since she missed her dialysis. 2. End-stage renal disease, on hemodialysis. 3. History of chronic obstructive pulmonary disease. 4. Multiple falls. PLAN: I will order for CT of the abdomen and pelvis with p.o. contrast. If there is no pathology, we can advance her diet. She will get hemodialysis today. We will reevaluate in a.m. If her CT scan of the abdomen is negative, stool C. diff is already negative, we will discontinue IV antibiotics, and after dialysis if she improves, we can make a discharge . Shawn Gomez MD
--- NOTE | 2018-09-19 16:41 | CT ---
Date of service: 09/19/2018 PROCEDURE: CT Abdomen and Pelvis without IV contrast HISTORY: abdominal pain COMPARISON: Comparison is made to the previous study dated 09/06/2018 TECHNIQUE: Contrast dose: 0 IV contrast administration Radiation dose: Total exam DLP = 258.16 mGy-cm. This CT exam was performed using one or more of the following dose reduction techniques: Automated exposure control, adjustment of the mA and/or kV according to patient size, and/or use of iterative reconstruction technique. FINDINGS: LOWER THORAX: Cardiomegaly is again noted. There are bilateral small pleural effusions larger on the right. LIVER: Heterogeneous attenuation of the liver is again noted. The assessment of the liver and upper abdomen solid organs is limited without IV contrast administration. GALLBLADDER AND BILE DUCTS: The patient is likely status post prior cholecystectomy. There are surgical clips seen at the gallbladder fossa. PANCREAS: No definite evidence of dilated main pancreatic duct or pericholecystic fluid. SPLEEN: Unremarkable. ADRENALS: Unremarkable. No mass. KIDNEYS AND URETERS: The kidneys are very small in size suggestive of chronic kidney disease. VASCULATURE: Unremarkable. No aortic aneurysm. Diffuse atherosclerotic disease and calcification noted. BOWEL: There are dilated small bowel loops at the mid and lower abdomen suggestive of enteritis. No evidence of high-grade bowel obstruction. The large bowel loops are partially collapse therefore cannot be evaluated. APPENDIX: There is no definite evidence of appendicitis. PERITONEUM: Small amount of free fluid in the lower abdomen and pelvis is noted. There is diffuse mesenteric edema noted. No definite evidence of free air. LYMPH NODES: No evidence of significant retroperitoneal lymphadenopathy. BLADDER: The urinary bladder is not distended. REPRODUCTIVE: The assessment of the pelvis is limited due to large streak artifact from the right hip prosthesis. BONES: Diffuse demineralization of the osseous structure noted. Heterogeneous attenuation of the osseous structure likely due to renal osteodystrophy. Severe degenerative changes at L5-S1 are again noted. OTHER FINDINGS: None. IMPRESSION: Mildly dilated small bowel loops demonstrate [id number] diffuse wall thickening. Correlate clinically for possible enteritis. No definite evidence of high-grade bowel obstruction. However the small bowel loops are partially collapse. Diffuse soft tissue edema and small free fluid in the lower abdomen and pelvis. Cardiomegaly and small bilateral pleural effusions.
--- NOTE | 2018-09-19 20:51 | CP.PCM.CON ---
<CrescencioTim - Last Filed: 09/19/18 20:58> History of Present Illness - History of Present Illness History of Present Illness: PGY5 GI Initial Consult Patient is a 57yo female with PMHx significant for ESRD on HD, Biventricular systolic congestive heart failure with EF 25%, tricuspid regurgitation and pulmonary hypertension, prior GI bleeding with dieulefoy lesion vs gastric varices, cirrhosis and portal hypertension complicated by esophageal varices, portal hypertensive gastropathy and coagulopathy, elevated chromogranin A and suspicion for carcinoid, possible secondary iron overload/hemochromatosis and chronic anemia who presented to the ED with abd pain, located in the epigastrum amd lower quadrants B/L. Pt Notes that the pain started 1 day prior. She notes it was an 8 out of 10 and progressivly worsening. She notes associated nonbloody emesis and diarrhea. denies any sick contacts or travel. Has not noted any blood loss in the form of melena, hematochezia or hematemesis. Denies any fatigue, dizziness, lightheadedness, palpitations. 12 system ROS performed and negative except where stated PMHx: See HPI PSHx: Pericardial window, Cholecystectomy, x2, right hip replacement, recent left knee repair following fracture, Left AVF formation FHx: Discussed with patient and noncontributory Social: 1/2ppd smoker, denies EtOH or illicit drug use Endo: Most recent EGD 10/22 - Grade I varices, Endoclips noted from prior procedure (Dieulefoy vs gastric varix) Past Patient History - Infectious Disease Hx of Infectious Diseases: None - Tetanus Immunizations Tetanus Immunization: Up to Date - Past Medical History & Family History Past Medical History?: Yes - Past Social History Smoking Status: Former Smoker - CARDIAC Hx Cardiac Disorders: Yes Hx Hypertension: Yes - PULMONARY Hx Chronic Obstructive Pulmonary Disease (COPD): Yes - NEUROLOGICAL Hx Neurological Disorder: Yes - HEENT Hx HEENT Problems: Yes Hx Blind: Yes (partial, left eye) Hx Cataracts: ([place]) Hx Deafness: Yes - RENAL Hx Dialysis: Yes Date of Last Dialysis Treatment: 09/15/18 Hx Renal Failure: Yes - ENDOCRINE/METABOLIC Hx Hypothyroidism: Yes - HEMATOLOGICAL/ONCOLOGICAL Hx Blood Disorders: Yes Hx Anemia: Yes - INTEGUMENTARY Hx Dermatological Problems: Yes (LEFT UPPER ARM SHUNT) Other/Comment: CALCIPHYLAXIS-DRY ROUND RASH ALL OVER HER BODY,ARMS,LEG. BILATERAL DISCOLORED DARK BROWN SKIN.TIGHT. - MUSCULOSKELETAL/RHEUMATOLOGICAL Hx Falls: Yes (Recent left knee fx) - GASTROINTESTINAL Hx Gastrointestinal Disorders: Yes (GI BLEED,SBO,APPENDICITIS,INGRAM'S ESOPHAGUS) - GENITOURINARY/GYNECOLOGICAL Hx Genitourinary Disorders: Yes ([place]) - PSYCHIATRIC Hx Anxiety: No Hx Bipolar Disorder: No Hx Depression: No Hx Post Traumatic Stress Disorder: No Hx Schizophrenia: No Hx Substance Use: No - SURGICAL HISTORY Hx Appendectomy: No Hx Cholecystectomy: Yes Hx Coronary Stent: No - ANESTHESIA Hx Anesthesia: Yes Hx Anesthesia Reactions: No Hx Malignant Hyperthermia: No Meds Allergies/Adverse Reactions: Allergies Allergy/AdvReac Type Severity Reaction Status Date / Time aspirin Allergy Severe ANAPHYLAXIS Verified 09/18/18 20:27 ciprofloxacin Allergy Severe ANAPHYLAXIS Verified 09/18/18 20:27 [place] And Derivatives Allergy Severe ANAPHYLAXIS Verified 09/18/18 20:27 enalapril Allergy Severe HIVES Verified 09/18/18 20:27 heparin Allergy Severe ANAPHYLAXIS Verified 09/18/18 20:27 latex Allergy Severe ANAPHYLAXIS Verified 09/18/18 20:27 Penicillins Allergy Severe ANAPHYLAXIS Verified 09/18/18 20:27 Sulfa (Sulfonamide Allergy Severe ANAPHYLAXIS Verified 09/18/18 20:27 Antibiotics) levothyroxine sodium Allergy Intermediate RASH Verified 09/18/18 20:27 [From Levoxyl] acetaminophen Allergy Mild RASH Verified 09/18/18 20:27 codeine Allergy Mild RASH Verified 09/18/18 20:27 enoxaparin Allergy Mild RASH Verified 09/18/18 20:27 iodine Allergy Mild RASH Verified 09/18/18 20:27 influenza virus vaccine, Allergy hives Verified 09/18/18 20:27 specific - Medications Medications: Current Medications Atorvastatin Calcium (Lipitor) 40 mg PO DAILY [facility] Calcitriol (Rocaltrol) 0.75 mcg PO TTS [facility] Hydromorphone HCl (Dilaudid) 0.5 mg IVP Q4H PRN PRN Reason: Pain, moderate (4-7) Last Admin: 09/19/18 15:36 Dose: 0.5 mg Lisinopril (Zestril) 2.5 mg PO DAILY [facility] Loperamide HCl (Imodium) 2 mg PO QID PRN PRN Reason: Diarrhea Loratadine (Claritin) 10 mg PO DAILY [facility] Last Admin: 09/19/18 12:36 Dose: 10 mg Sevelamer HCl (Renagel) 800 mg PO AC [facility] Last Admin: 09/19/18 18:25 Dose: Not Given Physical Exam - Constitutional Appears: Well, No Acute Distress - Head Exam Head Exam: ATRAUMATIC, NORMOCEPHALIC - Eye Exam Eye Exam: Normal appearance - ENT Exam ENT Exam: Mucous Membranes Moist, Normal Exam - Neck Exam Neck exam: Positive for: Normal Inspection - Respiratory Exam Respiratory Exam: Clear to Auscultation Bilateral, NORMAL BREATHING PATTERN. absent: Rales, Rhonchi, Wheezes, Respiratory Distress - Cardiovascular Exam Cardiovascular Exam: REGULAR RHYTHM, +S1, +S2 - GI/Abdominal Exam GI & Abdominal Exam: Normal Bowel Sounds, Soft. absent: Guarding, Organomegaly, Rebound, Rigid - Extremities Exam Extremities exam: Negative for: joint swelling, pedal edema - Neurological Exam Neurological exam: Alert, Oriented x3 - Psychiatric Exam Psychiatric exam: Normal Affect, Normal Mood - Skin Skin Exam: Dry, Intact, Normal Color, Warm Results - Vital Signs Recent Vital Signs: Last Vital Signs Temp 98 F 09/19/18 14:00 Pulse 84 09/19/18 14:00 Resp 18 09/19/18 14:00 BP 122/80 09/19/18 14:00 Pulse Ox 99 09/19/18 14:00 - Labs Result Diagrams: 09/18/18 12:15 09/18/18 12:15 Labs: Laboratory Results - last 24 hr 09/18/18 21:20 pO2 106 H VBG pH 7.41 VBG pCO2 33.0 L VBG HCO3 20.9 L VBG Total CO2 21.9 L VBG O2 Sat (Calc) 99.6 H VBG Base Excess -2.9 L VBG Potassium 4.9 Sodium 130.0 L Chloride 95.0 L Glucose 97 Lactate 2.2 H FiO2 21.0 Venous Blood Potassium 4.9 Assessment & Plan - Assessment and Plan (Free Text) Assessment: Jacqui Kraus is a 58 F w/ multiplr comorbidities who presents with abd pain, vomiting, and diarrhea. CT revealed diffuse enteritis Enteritis, etiology likely viral Diarrhea, likely 2/2 above; r/o c.diff and bacterial Congestive hepatopathy/Cirrhosis c/b esophageal varices, portal hypertensive gastropathy - etiology suspected to be congestive 2/2 cardiac dysfunction though other etiologies such as iron overload may contribute to overall disease process Plan: -advance diet as tolerated -d/c PO vanco and IV flagyl, since c.diff toxin was neg -stool culture -hold abx at this time -continue dialysis as per nephro -CT reviewed -continue PPI -zofran PRN -will continue to monitor D/W Dr. Rosado <Jesus Manuel Rosado V - Last Filed: 09/19/18 23:57> Meds - Medications Medications: Current Medications Atorvastatin Calcium (Lipitor) 40 mg PO DAILY [facility] Calcitriol (Rocaltrol) 0.75 mcg PO TTS [facility] Hydromorphone HCl (Dilaudid) 0.5 mg IVP Q4H PRN PRN Reason: Pain, moderate (4-7) Last Admin: 09/19/18 15:36 Dose: 0.5 mg Lisinopril (Zestril) 2.5 mg PO DAILY [facility] Loperamide HCl (Imodium) 2 mg PO QID PRN PRN Reason: Diarrhea Loratadine (Claritin) 10 mg PO DAILY [facility] Last Admin: 09/19/18 12:36 Dose: 10 mg Ondansetron HCl (Zofran Inj) 4 mg IVP Q6H PRN PRN Reason: Nausea/Vomiting Pantoprazole Sodium (Protonix Ec Tab) 40 mg PO 0600 [facility] Sevelamer HCl (Renagel) 800 mg PO AC [facility] Last Admin: 09/19/18 18:25 Dose: Not Given Results - Vital Signs Recent Vital Signs: Last Vital Signs Temp 98.3 F 09/19/18 22:00 Pulse 82 09/19/18 22:00 Resp 20 09/19/18 22:00 BP 121/69 09/19/18 22:00 Pulse Ox 93 L 09/19/18 22:00 - Labs Result Diagrams: 09/18/18 12:15 09/18/18 12:15 Attending/Attestation - Attestation I have personally seen and examined this patient.: Yes I have fully participated in the care of the patient.: Yes I have reviewed all pertinent clinical information: Yes Notes (Text): This is an addendum to GI consul report dictated by the GI Fellow. The patient was seen and examined earlier. Medical records, lab studies, imagings were reviewed. Last 24 hours events reviewed. Agreed with the above treatment plan as outlined in GI Fellow 's notes with the addition of the following 09/19/18 23:56
[2018-09-20] MEDS: HYDROmorphone 0.5 mg/0.5 ml ISec IVP PRN ×5 (01:50→21:49)
[2018-09-20] MEDS: Pantoprazole 40 mg EC Tab PO SCH (08:09)
[2018-09-20 08:46] LABS: MEAN CELL VOLUME 81.4 fl (80.0-105.0); MEAN CORPUSCULAR HEMOGLOBIN 24.3 pg (25.0-35.0); MEAN CORPUSCULAR HGB CONC 29.9 g/dl (31.0-37.0); MEAN PLATELET VOLUME 9.3 fl (7.0-11.0); RBC 4.52 10^6/uL (3.5-6.1); WHITE BLOOD COUNT 5.2 10^3/uL (4.5-11.0)
[2018-09-20 08:51] LABS: CALCIUM 8.7 mg/dL (8.4-10.5)
--- NOTE | 2018-09-20 10:32 | CP.PCM.PN ---
<Tim Prather - Last Filed: 09/20/18 10:34> Subjective - Date & Time of Evaluation Date of Evaluation: 09/20/18 Time of Evaluation: 07:00 - Subjective Subjective: PGY 5 GI Follow-up Pt seen and examined bedside improved abd pain denies any diarrhea tolerating liquid diet denies any fever, chills or diaphoresis ROS: 12 point conducted, neg other than above Objective - Vital Signs/Intake and Output Vital Signs (last 24 hours): Temp Pulse Resp BP Pulse Ox 98.6 F 81 18 134/70 97 09/20/18 06:00 09/20/18 06:00 09/20/18 06:00 09/20/18 06:00 09/20/18 06:00 Intake and Output: 09/20/18 09/20/18 06:59 18:59 Intake Total 240 Balance 240 - Medications Medications: Current Medications Atorvastatin Calcium (Lipitor) 40 mg PO DAILY [facility] Last Admin: 09/20/18 09:24 Dose: 40 mg Calcitriol (Rocaltrol) 0.75 mcg PO TTS [facility] Last Admin: 09/20/18 09:25 Dose: 0.75 mcg Hydromorphone HCl (Dilaudid) 0.5 mg IVP Q4H PRN PRN Reason: Pain, moderate (4-7) Last Admin: 09/20/18 09:23 Dose: 0.5 mg Lisinopril (Zestril) 2.5 mg PO DAILY [facility] Last Admin: 09/20/18 09:29 Dose: Not Given Loperamide HCl (Imodium) 2 mg PO QID PRN PRN Reason: Diarrhea Loratadine (Claritin) 10 mg PO DAILY [facility] Last Admin: 09/20/18 09:25 Dose: 10 mg Ondansetron HCl (Zofran Inj) 4 mg IVP Q6H PRN PRN Reason: Nausea/Vomiting Pantoprazole Sodium (Protonix Ec Tab) 40 mg PO 0600 [facility] Last Admin: 09/20/18 08:09 Dose: Not Given Sevelamer HCl (Renagel) 800 mg PO AC [facility] Last Admin: 09/20/18 08:00 Dose: 800 mg - Labs Labs: 09/20/18 08:20 09/20/18 08:20 - Constitutional Appears: Well, No Acute Distress - Head Exam Head Exam: ATRAUMATIC, NORMOCEPHALIC - Eye Exam Eye Exam: Conjunctival injection, Normal appearance - ENT Exam ENT Exam: Mucous Membranes Moist, Normal Exam - Neck Exam Neck Exam: Normal Inspection - Respiratory Exam Respiratory Exam: Clear to Ausculation Bilateral, NORMAL BREATHING PATTERN. absent: Rales, Rhonchi, Wheezes, Respiratory Distress - Cardiovascular Exam Cardiovascular Exam: REGULAR RHYTHM, +S1, +S2 - GI/Abdominal Exam GI & Abdominal Exam: Soft, Normal Bowel Sounds. absent: Distended, Firm, Guarding, Rigid, Tenderness, Mass, Organomegaly, Rebound - Extremities Exam Extremities Exam: absent: Joint Swelling, Pedal Edema - Neurological Exam Neurological Exam: Alert, Awake, Oriented x3 - Psychiatric Exam Psychiatric exam: Normal Affect, Normal Mood - Skin Skin Exam: Dry, Intact, Normal Color, Warm Assessment and Plan - Assessment and Plan (Free Text) Assessment: Jacqui Kraus is a 58 F w/ multiplr comorbidities who presents with abd pain, vomiting, and diarrhea. CT revealed diffuse enteritis Enteritis, etiology likely viral Diarrhea, likely 2/2 above; r/o c.diff and bacterial Congestive hepatopathy/Cirrhosis c/b esophageal varices, portal hypertensive gastropathy - etiology suspected to be congestive 2/2 cardiac dysfunction though other etiologies such as iron overload may contribute to overall disease process Plan: -advance diet as tolerated to renal diet -d/c PO vanco and IV flagyl, since c.diff toxin was neg -stool culture -hold abx at this time -continue dialysis as per nephro -CT reviewed -continue PPI -zofran PRN -can d/c from GI standpoint, once tolerating diet D/W Dr. Rosado <Jesus Manuel Rosado V - Last Filed: 09/21/18 00:03> Objective - Vital Signs/Intake and Output Vital Signs (last 24 hours): Temp Pulse Resp BP Pulse Ox 98 F 90 18 127/71 100 09/20/18 14:00 09/20/18 14:00 09/20/18 14:00 09/20/18 14:00 09/20/18 14:00 Intake and Output: 09/20/18 09/21/18 18:59 06:59 Intake Total 720 540 Balance 720 540 - Medications Medications: Current Medications Atorvastatin Calcium (Lipitor) 40 mg PO DAILY [facility] Last Admin: 09/20/18 09:24 Dose: 40 mg Calcitriol (Rocaltrol) 0.75 mcg PO TTS [facility] Last Admin: 09/20/18 09:25 Dose: 0.75 mcg Diphenhydramine HCl (Benadryl) 25 mg PO Q6 PRN PRN Reason: Itching / Pruritus Last Admin: 09/20/18 20:24 Dose: 25 mg Hydromorphone HCl (Dilaudid) 0.5 mg IVP Q4H PRN PRN Reason: Pain, moderate (4-7) Last Admin: 09/20/18 21:49 Dose: 0.5 mg Lisinopril (Zestril) 2.5 mg PO DAILY [facility] Last Admin: 09/20/18 11:09 Dose: 2.5 mg Loperamide HCl (Imodium) 2 mg PO QID PRN PRN Reason: Diarrhea Loratadine (Claritin) 10 mg PO DAILY [facility] Last Admin: 09/20/18 09:25 Dose: 10 mg Ondansetron HCl (Zofran Inj) 4 mg IVP Q6H PRN PRN Reason: Nausea/Vomiting Pantoprazole Sodium (Protonix Ec Tab) 40 mg PO 0600 [facility] Last Admin: 09/20/18 08:09 Dose: Not Given Sevelamer HCl (Renagel) 800 mg PO AC [facility] Last Admin: 09/20/18 17:45 Dose: 800 mg - Labs Labs: 09/20/18 08:20 09/20/18 08:20 Attending/Attestation - Attestation I have personally seen and examined this patient.: Yes I have fully participated in the care of the patient.: Yes I have reviewed all pertinent clinical information, including history, physical exam and plan: Yes Notes (Text): This is an addendum to GI consult report dictated by the GI Fellow. The patient was seen and examined earlier. Medical records, lab studies, imagings were reviewed. Last 24 hours events reviewed. Agreed with the above treatment plan as outlined in GI Fellow 's notes with the addition of the following 09/21/18 00:02
--- NOTE | 2018-09-20 16:14 | PN ---
DATE: 09/20/2018 SUBJECTIVE: The patient is 58-year-old, seen and examined, and doing well. Enjoying her solid diet. Had only one, semifluid bowel movement. No abdominal pain. PHYSICAL EXAMINATION VITAL SIGNS: She is afebrile, pulse 81, respirations 18, and blood pressure 134/72. LUNGS: Bilateral fair airflow. Occasional expiratory rhonchi. HEART: S1 and S2 audible. ABDOMEN: Soft and nontender. No rebound. No guarding. NEUROLOGIC: The patient is awake, alert, oriented, and able to communicate. LABORATORY DATA: WBC 5.2, hemoglobin 11, hematocrit 36 and platelet 92. Chemistry; sodium 134, potassium 3.8, chloride 97, CO2 of 26, BUN 35, creatine 4.4 and blood sugar of 79. Flu test is negative. ASSESSMENT: 1. Diarrhea, could be gastroenteritis. 2. Right upper quadrant pain secondary to passive hepatic congestion because of fluid overload, because she missed her hemodialysis on 09/15/2018. 3. Diffused enteritis probably secondary to edema. 4. End-stage renal disease on hemodialysis. 5. Chronic anemia. 6. Recent left tibial fracture status post open reduction and internal fixation. PLAN: Since stool for C. diff is negative, we will discontinue her antibiotics. Monitor her for next 24-hour. Requested physical therapy evaluation. If the patient remains stable, will be discharged either to TCU or home depending on physical therapy evaluation. Shawn Gomez MD
--- NOTE | 2018-09-20 20:09 | PN ---
DATE: 09/20/2018 SUBJECTIVE: The patient is seen lying in bed. She is awake. She is alert. She is comfortable. She still complains of abdominal pain. No further diarrhea. PHYSICAL EXAMINATION: GENERAL: Thinly built elderly lady lying in bed. VITAL SIGNS: Blood pressure 135/72, heart rate 82, respiratory rate 18, temperature 98.6. HEENT: Normocephalic, atraumatic, positive pallor. Neck: Supple. No JVD. LUNGS: Bilateral equal entry, bilateral equal expansion. CARDIAC: S1, S2, regular rate and rhythm, no murmur, no rub. ABDOMEN: Soft, nondistended, nontender, bowel sounds present. Tenderness in the right lower quadrant. EXTREMITIES: No lower extremity edema. LABORATORY DATA: WBC 5.2, hemoglobin 11, hematocrit 36.8, platelets 92. Sodium 134, potassium 3.8, chloride 97, CO2 of 26, BUN 35, creatinine 4.4, glucose 79, calcium 8.7. Clostridium difficile negative. MEDICATIONS: Medications list reviewed. ASSESSMENT: 1. Nausea, vomiting, diarrhea, abdominal pain,? enteritis. 2. Congestive hepatopathy, cirrhosis of the liver, esophageal varices, portal hypertensive gastropathy. 3. Hypertension. 4. End-stage renal disease. PLAN: 1. The patient had complete treatment of dialysis yesterday. We will hold off on dialysis today. Electrolytes are normal. No volume overload. 2. Management of as per GI team. 3. No objection to discharge from the renal standpoint. Mansi Rose MD
[2018-09-21] MEDS: HYDROmorphone 0.5 mg/0.5 ml ISec IVP PRN ×4 (02:03→15:25)
[2018-09-21] MEDS: Pantoprazole 40 mg EC Tab PO SCH (06:29)
[2018-09-21 16:33] VITALS: BP 118/67; PULSE 86; RESP 20; TEMP 97.6; O2SAT 97
--- NOTE | 2018-09-21 18:23 | PN ---
DATE: 09/21/2018 SUBJECTIVE: The patient is seen lying in bed. The patient is awake. She is alert. She is comfortable. She complains of some nausea. No vomiting. Still some diarrhea, but the frequency is much slower. PHYSICAL EXAMINATION GENERAL: Middle-aged lady lying in bed. VITAL SIGNS: Blood pressure 132/81, heart rate 89, respiratory rate 18, temperature 97.3. HEENT: Normocephalic, atraumatic, positive pallor. NECK: Supple. No JVD. LUNGS: Bilateral equal entry, bilateral equal expansion, no rales. CARDIAC: S1, S2, regular rate and rhythm, no murmur, no rub. ABDOMEN: Soft, nondistended, nontender, bowel sounds present. EXTREMITIES: No lower extremity edema. LABORATORY DATA: No new labs. MEDICATIONS: CURRENT MEDICATIONS: Benadryl, Claritin, Dilaudid, Imodium, Lipitor, Protonix, Renagel, Zestril, Zofran. ASSESSMENT: 1. Viral gastroenteritis?. 2. Cardiac cirrhosis. 3. Hypertension. 4. End-stage renal disease. 5. Hyperphosphatemia. 6. Anemia of chronic kidney disease. PLAN: 1. Dialysis today. 2. Continue phosphate binders. 3. Continue antihypertensives. 4. Okay to discharge from the renal standpoint. Mansi Rose MD
--- NOTE | 2018-09-22 01:22 | DS ---
HISTORY OF PRESENT ILLNESS: The patient is a 58-year-old came to emergency room because of intractable diarrhea, decreased appetite, off and on abdominal discomfort but she did have significant discomfort in the right upper quadrant area, so the patient was given IV fluid. She was on clear liquid diet. Stool for Clostridium difficile was negative. She was evaluated by GI team. Initially, she was given 3 doses of p.o. vancomycin and IV Flagyl, but Clostridium difficile was negative, so IV antibiotics were discontinued by GI, thus the patient started to improve. Diarrhea subsided and she was afebrile. Her diet was advanced that she tolerated and discharged today. PHYSICAL EXAMINATION: GENERAL: She is awake, alert, oriented, communicative. VITAL SIGNS: She is afebrile, pulse 86, respirations 20, blood pressure 118/67. LUNGS: Bilateral fair airflow. Diffuse decreased breath sounds. Occasional expiratory rhonchi. HEART: S1, S2 audible. ABDOMEN: Soft, nontender. No rebound. No guarding. NEUROLOGIC: She is awake, alert, oriented, able to communicate. EXTREMITIES: Bilateral leg, no edema. Left knee is in soft knee brace. LABORATORY DATA: WBC 5.2, hemoglobin 11, hematocrit 36.8, platelet 92. Chemistry: There is no new chemistry available today. CT scan of the abdomen and pelvis show mild enteritis, probably since she missed her dialysis. ASSESSMENT: 1. Probable gastroenteritis, no need for p.o. IV antibiotics. 2. Right upper quadrant pain, probably secondary to hepatic congestion since the patient missed. She also had fluid overload causing hepatic congestion. 3. Cardiac cirrhosis. 4. End-stage renal disease, on hemodialysis. 5. Chronic anemia. 6. Status post fall and had left knee open reduction and internal fixation done. PLAN: The patient is being discharged home today. She is to resume all her medication as prior to admission. We followup the patient as outpatient. Shawn Gomez MD
== END 2018-09-21 18:38 | disposition home or self-care (01) | DRG 391 ==
LOC: ED 11:25 → ERH 15:37 → 5RNO 17:55 → 5RSO 09-19 12:01
PROVIDERS: ADMIT Internal Medicine; ATTEND Internal Medicine
PROC: 5A1D70Z Performance of Urinary Filtration, Intermittent, Less than 6 Hours Per Day (ICD-10-PCS; principal; 2018-09-20)
DX: A08.4 Viral intestinal infection, unspecified (principal); N18.6 End stage renal disease; I13.2 Hypertensive heart and chronic kidney disease with heart failure and with stage 5 chronic kidney disease, or end stage renal disease; I50.22 Chronic systolic (congestive) heart failure; R18.8 Other ascites; N25.81 Secondary hyperparathyroidism of renal origin; K76.6 Portal hypertension; I85.10 Secondary esophageal varices without bleeding; I50.82 Biventricular heart failure; K74.69 Other cirrhosis of liver; J44.9 Chronic obstructive pulmonary disease, unspecified; I27.20 Pulmonary hypertension, unspecified; M17.0 Bilateral primary osteoarthritis of knee; D63.1 Anemia in chronic kidney disease; E87.5 Hyperkalemia; E03.9 Hypothyroidism, unspecified; F17.210 Nicotine dependence, cigarettes, uncomplicated; F17.200 Nicotine dependence, unspecified, uncomplicated; I07.1 Rheumatic tricuspid insufficiency; E83.39 Other disorders of phosphorus metabolism; H54.62 Unqualified visual loss, left eye, normal vision right eye; Z96.643 Presence of artificial hip joint, bilateral; R29.6 Repeated falls; Z99.2 Dependence on renal dialysis

== ENCOUNTER 2018-10-18 15:34 | Emergency (ER) | payer MEDICARE, BC | END 2018-10-18 18:05 | disposition home or self-care (01) | LOC: ED 15:34 ==

== ENCOUNTER 2018-12-25 10:11 | Emergency (ER) | payer MEDICARE, BC ==
[2018-12-25 10:11] VITALS: PULSE 79
[2018-12-25 10:15] VITALS: BMI 21.6
[2018-12-25 10:40] VITALS: O2SAT 99
--- NOTE | 2018-12-25 10:40 | ED PDOC ---
Arrival/HPI - General Chief Complaint: GI Problem Time Seen by Provider: 12/25/18 10:14 Historian: Patient - History of Present Illness Narrative History of Present Illness (Text): 12/25/18 10:38 58 year old female, whose past medical history includes COPD, CHF, hypertension, left AV shunt, ESRD on hemodialysis (//Mon), chronic anemia, and chronic pancreatitis, presents complaining of nausea, vomiting, and diarrhea associated with abdominal discomfort for the past couple of days. Patient reports she took imodium which stopped the diarrhea yesterday, but reports 1 episode of black stool this morning. Patient reports last episode of vomiting was 1.5 days ago. She reports she has not been eating for the past 4 days and did not take her mediation this morning. Patient has not been to her last 2 dialysis sessions and reports her last session was 12/18. Patient denies any fever, chills, chest pain, shortness of breath, urinary symptoms, back pain, neck pain, headache, dizziness, or any other complaints. PMD: Dr. Gomez Time/Duration: Other (couple days) Symptom Onset: Gradual Symptom Course: Unchanged Activities at Onset: Light Context: Home Past Medical History - Provider Review Nursing Documentation Reviewed: Yes - Past History Past History: Non-Contributing - Infectious Disease Hx of Infectious Diseases: None - Tetanus Immunization Tetanus Immunization: Up to Date - Cardiac Hx Cardiac Disorders: Yes Hx Congestive Heart Failure: Yes Hx Hypertension: Yes - Pulmonary Hx Chronic Obstructive Pulmonary Disease (COPD): Yes - Neurological Hx Neurological Disorder: Yes - HEENT Hx HEENT Disorder: Yes Hx Blind: Yes (partial, left eye) Hx Cataracts: ([place]) Hx Deafness: Yes - Renal Hx Renal Failure: Yes - Endocrine/Metabolic Hx Hypothyroidism: Yes - Hematological/Oncological Hx Blood Disorders: Yes Hx Anemia: Yes - Integumentary Hx Dermatological Disorder: Yes (LEFT UPPER ARM SHUNT) Other/Comment: CALCIPHYLAXIS-DRY ROUND RASH ALL OVER HER BODY,ARMS,LEG. BILATERAL DISCOLORED DARK BROWN SKIN.TIGHT. - Musculoskeletal/Rheumatological Hx Falls: Yes (Recent left knee fx) - Gastrointestinal Hx Gastrointestinal Disorders: Yes (GI BLEED,SBO,APPENDICITIS,INGRAM'S ESOPHAGUS) - Genitourinary/Gynecological Hx Genitourinary Disorders: Yes ([place]) - Psychiatric Hx Anxiety: No Hx Bipolar Disorder: No Hx Depression: No Hx Post Traumatic Stress Disorder: No Hx Schizophrenia: No Hx Substance Use: No - Surgical History Hx Appendectomy: No Hx Cholecystectomy: Yes Hx Coronary Stent: No - Anesthesia Hx Anesthesia: Yes Hx Anesthesia Reactions: No Hx Malignant Hyperthermia: No - Suicidal Assessment Feels Threatened In Home Enviroment: No Family/Social History - Physician Review Nursing Documentation Reviewed: Yes Family/Social History: No Known Family HX Smoking Status: Former Smoker Hx Alcohol Use: No Hx Substance Use: No Hx Substance Use Treatment: No Allergies/Home Meds Allergies/Adverse Reactions: Allergies aspirin Allergy (Severe, Verified 12/25/18 10:17) ANAPHYLAXIS ciprofloxacin Allergy (Severe, Verified 12/25/18 10:17) ANAPHYLAXIS [place] [employer] Allergy (Severe, Verified 12/25/18 10:17) ANAPHYLAXIS enalapril Allergy (Severe, Verified 12/25/18 10:17) HIVES heparin Allergy (Severe, Verified 12/25/18 10:17) ANAPHYLAXIS latex Allergy (Severe, Verified 12/25/18 10:17) ANAPHYLAXIS Penicillins Allergy (Severe, Verified 12/25/18 10:17) ANAPHYLAXIS Sulfa (Sulfonamide Antibiotics) Allergy (Severe, Verified 12/25/18 10:17) ANAPHYLAXIS levothyroxine sodium [From Levoxyl] Allergy (Intermediate, Verified 12/25/18 10:17) RASH acetaminophen Allergy (Mild, Verified 12/25/18 10:17) RASH codeine Allergy (Mild, Verified 12/25/18 10:17) RASH enoxaparin Allergy (Mild, Verified 12/25/18 10:17) RASH iodine Allergy (Mild, Verified 12/25/18 10:17) RASH influenza virus vaccine, specific Allergy (Verified 12/25/18 10:17) hives Home Medications: Home Meds Medication Instructions Recorded Confirmed Sevelamer [Renagel] 800 mg PO ACB 10/10/17 09/19/18 Albuterol Sulfate [Proair Hfa] 200 puff IH QID 07/04/18 09/18/18 Lisinopril [Zestril] 2.5 mg PO DAILY 07/04/18 09/18/18 Rosuvastatin Calcium [Crestor] 10 mg PO DAILY 07/04/18 09/18/18 Review of Systems - Physician Review All systems were reviewed & negative as marked: Yes - Review of Systems Constitutional: absent: Fevers, Other (chills) Respiratory: absent: SOB Cardiovascular: absent: Chest Pain Gastrointestinal: Abdominal Pain, Diarrhea, Nausea, Vomiting Genitourinary Female: absent: Dysuria, Frequency, Hematuria Musculoskeletal: absent: Back Pain, Neck Pain Neurological: absent: Headache, Dizziness Physical Exam Vital Signs Reviewed: Yes Temperature: Afebrile Blood Pressure: Normal Pulse: Regular Respiratory Rate: Normal Appearance: Positive for: Well-Appearing, Non-Toxic, Comfortable Pain Distress: None Mental Status: Positive for: Alert and Oriented X 3 - Systems Exam Head: Present: Atraumatic, Normocephalic Pupils: Present: PERRL Extroacular Muscles: Present: EOMI Conjunctiva: Present: Normal Mouth: Present: Moist Mucous Membranes Neck: Present: Normal Range of Motion Respiratory/Chest: Present: Clear to Auscultation, Good Air Exchange. No: Respiratory Distress, Accessory Muscle Use Cardiovascular: Present: Regular Rate and Rhythm, Murmurs (Pulmonic systolic murmur) Abdomen: Present: Tenderness (right-side tenderness). No: Distention, Peritoneal Signs Back: Present: Normal Inspection Upper Extremity: Present: Other (Good trill brewing to AV shunt in the left Upper Extremity ). No: Cyanosis, Edema Lower Extremity: Present: Normal Inspection. No: Edema Neurological: Present: GCS=15, CN II-XII Intact, Speech Normal Skin: Present: Warm, Dry, Normal Color. No: Rashes Psychiatric: Present: Alert, Oriented x 3, Normal Insight, Normal Concentration Medical Decision Making ED Course and Treatment: 12/25/18 11:01 Impression: 58 year old female presents complaining of nausea, vomiting, and diarrhea for the past couple of days associated with abdominal discomfort and one episode of dark stool. Plan: -- CT ABD & Pelvis w/o contrast -- EKG -- Labs -- Pepcid, zofran Inj -- Urine Culture -- Urinalysis -- Reassess and disposition Prior Visits: Notes and results from previous visits were reviewed. Progress Notes: PROCEDURE: CT Abdomen and Pelvis without intravenous contrast Dictator : Jarrett Okeefe MD Report Date : 12/25/2018 11:25:25 IMPRESSION: No acute intra-abdominal findings. 12/25/18 13:28 Patient is feeling better. Labs and CT reviewed. Spoke with Dr. Gomez who is aware and agrees with the pln to discharge patient now. Patient was instructed to go to dialysis now. - Lab Interpretations I have reviewed the lab results: Yes - RAD Interpretation Option Trader: Radiologist - EKG Interpretation Interpreted by ED Physician: Yes Type: 12 lead EKG - Medication Orders Current Medication Orders: Discontinued Medications Famotidine (Pepcid) 20 mg IVP STAT STA Stop: 12/25/18 10:26 Ondansetron HCl (Zofran Inj) 8 mg IVP STAT STA Stop: 12/25/18 10:26 - Scribe Statement The provider has reviewed the documentation as recorded by the Corinne Pillai Provider Scribe Attestation: All medical record entries made by the Scribe were at my direction and personally dictated by me. I have reviewed the chart and agree that the record accurately reflects my personal performance of the history, physical exam, medical decision making, and the department course for this patient. I have also personally directed, reviewed, and agree with the discharge instructions and d isposition. Disposition/Present on Arrival - Present on Arrival Any Indicators Present on Arrival: No History of DVT/PE: No History of Uncontrolled Diabetes: No Urinary Catheter: No History of Decub. Ulcer: No History Surgical Site Infection Following: None - Disposition Have Diagnosis and Disposition been Completed?: Yes Diagnosis: Chronic diarrhea, ESRD (end stage renal disease) on dialysis Disposition: HOME/ ROUTINE Disposition Time: 12:00 Condition: IMPROVED Discharge Instructions (ExitCare): Diarrhea in Adolescents and Adults, Dialysis and Diet Additional Instructions: MARTINEZ COSTELLO, thank you for letting us take care of you today. The emergency medical care you received today was directed at your acute symptoms. If you were prescribed any medication, please fill it and take as directed. It may take several days for your symptoms to resolve. Return to the Emergency Department if your symptoms worsen, do not improve, or if you have any other problems. Please contact your doctor or call one of the physicians/clinics you have been referred to that are listed on the Patient Visit Information form that is included in your discharge packet. Bring any paperwork you were given at disch arge with you along with any medications you are taking to your follow up visit. Our treatment cannot replace ongoing medical care by a primary care provider outside of the emergency department. Thank you for allowing the [facility] team to be part of your care today. Go to dialysis right now. Follow up with Dr. Gomez in 3-4 days for re-evaluation and further management. Referrals: Shawn Gomez MD [Staff Provider] - Follow up with primary Forms: [employer] ([place])
[2018-12-25 11:12] LABS: BASO # 0.02 K/mm3 (0.0-2.0); BASO % 0.2 % (0.0-3.0); EOS % 0.4 % (1.5-5.0); HEMOGLOBIN 12.5 g/dL (12.0-16.0); LYMPH # 0.8 (1.2-3.4); LYMPH % 7.9 % (22.0-35.0); MEAN CELL VOLUME 79.1 fl (80.0-105.0); MEAN CORPUSCULAR HEMOGLOBIN 25.4 pg (25.0-35.0); MEAN CORPUSCULAR HGB CONC 32.1 g/dl (31.0-37.0); MEAN PLATELET VOLUME 9.4 fl (7.0-11.0); MONO # 0.8 (0.1-0.6); MONO % 7.6 % (1.0-6.0); RBC 4.93 10^6/uL (3.5-6.1); RED CELL DISTRIBUTION WIDTH 17.9 % (11.5-14.5)
--- NOTE | 2018-12-25 11:29 | CT ---
Date of service: 12/25/2018 PROCEDURE: CT Abdomen and Pelvis without intravenous contrast HISTORY: +v/d, right sided abd pain - h/o ESRD COMPARISON: 09/19/2018 TECHNIQUE: Without contrast.. Contrast dose: Radiation dose: Total exam DLP = 253.35 mGy-cm. This CT exam was performed using one or more of the following dose reduction techniques: Automated exposure control, adjustment of the mA and/or kV according to patient size, and/or use of iterative reconstruction technique. FINDINGS: LOWER THORAX: Small right pleural effusion. Moderate cardiomegaly LIVER: Unremarkable. No gross lesion or ductal dilatation. GALLBLADDER AND BILE DUCTS: Gallbladder removed PANCREAS: Unremarkable. No gross lesion or ductal dilatation. SPLEEN: Splenic artery calcifications and 2 cm calcified splenic artery aneurysm. ADRENALS: Unremarkable. No mass. KIDNEYS AND URETERS: Severe renal atrophy consistent with end-stage renal disease. VASCULATURE: Unremarkable. No aortic aneurysm. Aortic calcification BOWEL: Unremarkable. No obstruction. No gross mural thickening. APPENDIX: Unremarkable. Normal appendix. PERITONEUM: There is a small amount of free fluid in the pelvis. There is diffuse subcutaneous edema. LYMPH NODES: Unremarkable. No enlarged lymph nodes. BLADDER: Unremarkable. REPRODUCTIVE: Unremarkable. BONES: Disc degeneration at L5-S1 OTHER FINDINGS: None. IMPRESSION: No acute intra-abdominal findings.
--- NOTE | 2018-12-25 11:33 | CARD ---
APPROVED REPORT Date of service: 12/25/2018 EKG Measurement Heart [id number] <Conclusion> Normal sinus rhythm Left axis deviation Minimal voltage criteria for LVH, may be normal variant T wave abnormality, consider lateral ischemia Prolonged QT Abnormal ECG
[2018-12-25 12:00] LABS: ALB/GLOB RATIO 1.3 (1.1-1.8); ALBUMIN 3.3 g/dL (3.0-4.8); CALCIUM 7.8 mg/dL (8.4-10.5)
[2018-12-25 12:23] LABS: TROPONIN I 0.15 ng/mL
[2018-12-25 13:43] VITALS: BP 130/78; PULSE 82; RESP 18; TEMP 98
== END 2018-12-25 13:43 | disposition home or self-care (01) ==
LOC: ED 10:11
DX: K52.9 Noninfective gastroenteritis and colitis, unspecified (principal); I12.0 Hypertensive chronic kidney disease with stage 5 chronic kidney disease or end stage renal disease; N18.6 End stage renal disease; Z99.2 Dependence on renal dialysis; I50.9 Heart failure, unspecified; J44.9 Chronic obstructive pulmonary disease, unspecified; Z87.891 Personal history of nicotine dependence
CPT/HCPCS: 74176; 80053; 82550; 83615; 83690; 83735; 84484; 85025; 93005; 96374; 96375; 99282; J2405